=== PATIENT | male | born 1940 | race Caucasian/White ===

== ENCOUNTER 2016-04-22 11:54 | Inpatient (IN) | payer OTHER ==
[2016-04-22 12:04] VITALS: BMI 25.2
[2016-04-22] MEDS ORDERED: methylPREDNISolone NA SUCC 125 MG/2 ML VIAL ONE (12:05)
[2016-04-22] MEDS ORDERED: SODIUM CHLORIDE 0.9% 1000 ML INFUS.BAG IV PRN (12:17)
[2016-04-22] MEDS ORDERED: MAGNESIUM SULF 50% (8.12 MEQ/2 ML-1 GM VIAL) IVPB ONE (12:19)
[2016-04-22] MEDS ORDERED: ALBUTEROL SO4 0.083% IH SOL 2.5 MG/3 ML VIAL.NEB. NEB ONE ×2 (12:19→12:36)
[2016-04-22] MEDS ORDERED: AZITHROMYCIN IVPB 500 MG in DEXTROSE 5%-WATER - 250 ML IVPB ONE (12:20)
[2016-04-22 12:36] LABS: VENOUS PH 7.37 (7.31-7.41)
[2016-04-22] MEDS ORDERED: MAGNESIUM SULF 50% (8.12 MEQ/2 ML-1 GM VIAL) ONE (12:36)
[2016-04-22 12:37] LABS: VENOUS BLOOD GAS HCO3 28.4 meq/L (22-29)
[2016-04-22] MEDS ORDERED: AZITHROMYCIN IVPB 250 ML IVPB ONE (12:37)
[2016-04-22 12:40] LABS: BASOPHIL 0.6 % (0-2.0); MCH 29.2 pg (25.7-33.7); MEAN CELL VOLUME 88.4 fl (80-96); MEAN PLT VOLUME 9.3 fl (7.5-11.1); NEUTROPHILS 74.9 % (42.8-82.8); PLATELET COUNT 168 K/MM3 (134-434); RDW 16.2 % (11.9-15.9); WHITE BLOOD COUNT 7.6 K/mm3 (4.0-10.0)
[2016-04-22 12:53] LABS: INR 1.24 (0.82-1.09); PROTHROMBIN TIME (PATIENT) 13.7 SEC (9.98-11.88)
[2016-04-22 12:56] LABS: ACTIVATED PTT 38.9 SECONDS (26.9-34.4)
[2016-04-22 13:07] LABS: ALBUMIN 3.8 g/dl (3.4-5.0); ANION GAP 9 (8-16); BILIRUBIN,TOTAL 0.5 mg/dL (0.2-1.0); CALCIUM 8.9 mg/dL (8.5-10.1); CO2 28 mmol/L (21-32); CREATININE 1.3 mg/dL (0.7-1.3); GLUCOSE,RANDOM 77 mg/dL (74-106); SGOT/AST 21 U/L (15-37); SGPT/ALT 16 U/L (12-78); TOT PROT 7.5 g/dl (6.4-8.2)
--- NOTE | 2016-04-22 13:08 | PDOC ---
History of Present Illness - General History Source: Patient, Family, Old Records Exam Limitations: No Limitations <Jamarcus Shultz - Last Filed: 04/22/16 13:53> - History of Present Illness Initial Comments: 04/22/16 13:20 The patient is a 75 year old male with significant history of hypertension, hyperlipidemia, atrial fibrillation, CAD s/p CABG s/p stents, CVA with residual L sided weakness, pacemaker, COPD, brought in by EMS for shortness of breath. The patient reports has been sick with fever, cough, and chest congestion for the past few days. Today he became increasingly short of breath and activated EMS. The patient denies true chest pain. He denies nausea, vomiting, or diaphoresis. PCP: Dr. Goran Phan Edge Runner: Dr. Hines Traffic Controller Cable: Dr. Fleming <Anna Marie Duarte - Last Filed: 04/22/16 16:02> - General Chief Complaint: Shortness of Breath Stated Complaint: SOB Time Seen by Provider: 04/22/16 12:07 Past History - Past Medical History Anemia: No Asthma: No Cancer: No Cardiac Disorders: Yes (A-fib, CABG, PM. STENTS.) CVA: Yes (01/23/12..SPEECH DEFECITS.) COPD: Yes CHF: No Dementia: No Diabetes: No GI Disorders: No Disorders: No HTN: Yes Hypercholesterolemia: Yes Liver Disease: No Seizures: No Thyroid Disease: No Other medical history: LT SIDE WEAKNESS D/T NERVE DAMAGE. - Surgical History Abdominal Surgery: Yes (S/P AAA) Appendectomy: No Cardiac Surgery: Yes (Bypass 2013, PM.) Cholecystectomy: No Lung Surgery: No Neurologic Surgery: No Orthopedic Surgery: Yes (FRACTURE RT FEMER S/P ORIF) - Immunization History Immunization Up to Date: Yes - Psycho/Social/Smoking Cessation Hx Anxiety: No Suicidal Ideation: No Smoking History: Former smoker Have you smoked in the past 12 months: No If you are a former smoker, when did you quit?: 2006 Cigars Per Day: 0 Information on smoking cessation initiated: No Hx Alcohol Use: No Drug/Substance Use Hx: No Substance Use Type: None Hx Substance Use Treatment: No <Jamarcus Shultz - Last Filed: 04/22/16 13:53> <Anna Marie Duarte - Last Filed: 04/22/16 16:02> - Past Medical History Allergies/Adverse Reactions: Allergies Allergy/AdvReac Type Severity Reaction Status Date / Time prednisone Allergy Intermediate "too wired" Verified 04/22/16 12:12 Home Medications: Ambulatory Orders Amlodipine Besylate [Norvasc -] 5 mg PO DAILY 04/22/16 Budesonide/Formeterol Fumarate [SYMBICORT 160/4.5mcg -] 2 inh PO BID 04/22/16 Duloxetine HCl 30 mg PO DAILY 04/22/16 Ferrous Sulfate 325 mg PO DAILY 04/22/16 Furosemide [Lasix] 20 mg PO DAILY 04/22/16 Lisinopril 10 mg PO DAILY 04/22/16 Metoprolol Succinate [Toprol Xl] 50 mg PO DAILY 04/22/16 Pregabalin [Lyrica] 100 mg PO BID 04/22/16 Rivaroxaban [Xarelto -] 20 mg PO DAILY 04/22/16 Tamsulosin HCl [Flomax] 0.4 mg PO DAILY 04/22/16 Zolpidem Tartrate 10 mg PO HS 04/22/16 Review of Systems - Review of Systems Able to Perform ROS?: Yes Comments:: 04/22/16 13:25 GENERAL/CONSTITUTIONAL: +Fever. HEAD, EYES, EARS, NOSE AND THROAT: No change in vision. No ear pain or discharge. No sore throat. CARDIOVASCULAR: No chest pain or lightheadedness. RESPIRATORY: Cough, shortness of breath, wheezing. No hemoptysis. GASTROINTESTINAL: No nausea, vomiting, diarrhea or constipation. GENITOURINARY: No dysuria, frequency, or change in urination. MUSCULOSKELETAL: No joint or muscle swelling or pain. No neck or back pain. SKIN: Rash to back 2 weeks ago. NEUROLOGIC: No headache, vertigo, loss of consciousness, or change in strength/ sensation. ENDOCRINE: No increased thirst. No abnormal weight change. HEMATOLOGIC/LYMPHATIC: No anemia, easy bleeding, or history of blood clots. ALLERGIC/IMMUNOLOGIC: No hives or skin allergy. <Anna Marie Duarte - Last Filed: 04/22/16 16:02> *Physical Exam - Vital Signs Last Vital Signs Temp Pulse Resp BP Pulse Ox 100.9 F H 101 H 24 116/95 94 L 04/22/16 11:59 04/22/16 11:59 04/22/16 11:59 04/22/16 11:59 04/22/16 11:59 <Jamarcus Shultz - Last Filed: 04/22/16 13:53> - Vital Signs Last Vital Signs Temp Pulse Resp BP Pulse Ox 100.9 F H 98 H 22 94/82 98 04/22/16 12:13 04/22/16 12:52 04/22/16 12:52 04/22/16 12:52 04/22/16 12:52 - Physical Exam Comments: 04/22/16 13:26 GENERAL: Awake, alert, and fully oriented, in no acute distress HEAD: No signs of trauma EYES: PERRLA, EOMI, sclera anicteric, conjunctiva clear ENT: Auricles normal inspection, hearing grossly normal, nares patent, oropharynx clear without exudates. Moist mucosa NECK: Normal ROM, supple, no lymphadenopathy, JVD, or masses LUNGS: Breath sounds equal, tight breath sounds throughout. HEART: Regular rate and rhythm, normal S1 and S2, no murmurs, rubs or gallops. Pacemaker in place. ABDOMEN: Soft, nontender, normoactive bowel sounds. No guarding, no rebound. No masses EXTREMITIES: Normal range of motion, no edema. No clubbing or cyanosis. No cords, erythema, or tenderness NEUROLOGICAL: Cranial nerves II through XII grossly intact. Slurred speech at baseline. Gait deferred. SKIN: Warm, Dry, normal turgor, no rashes or lesions noted. <Anna Marie Duarte - Last Filed: 04/22/16 16:02> Heart Score/ECG Review - History History: Moderately suspicious - Electrocardiogram EKG: Non specific repolarization disturbance - Age Age: >/= 65 - Risk Factors Based on the list above the patient has:: >/=3 risk factors or Hx atherosclerotic disease - Troponin Troponin: </= normal limit - Score Heart Score - Total: 6 #1 ECG reviewed & interpreted by me at: 12:00 04/22/16 13:08 Paced 96, with occasional PVCs, QTC 452 msec <Jamarcus Shultz - Last Filed: 04/22/16 13:53> ED Treatment Course - LABORATORY CBC & Chemistry Diagram: 04/22/16 12:26 04/22/16 12:26 - ADDITIONAL ORDERS Additional order review: Laboratory Results 04/22/16 04/22/16 12:35 12:26 INR 1.24 H PTT (Actin FS) 38.9 H VBG pH 7.37 POC VBG pCO2 50.9 POC VBG pO2 30.4 04/22/16 12:26 RBC 5.46 MCV 88.4 MCHC 33.0 RDW 16.2 H MPV 9.3 D Neutrophils % 74.9 Lymphocytes % 11.0 Monocytes % 8.5 Eosinophils % 5.0 H D Basophils % 0.6 - RADIOLOGY Radiology Studies Ordered: Category Date Time Status CHEST X-RAY PORTABLE* [RAD] Stat Radiology 04/22/16 12:17 Taken <Jamarcus Shultz - Last Filed: 04/22/16 13:53> - LABORATORY CBC & Chemistry Diagram: 04/22/16 12:26 04/22/16 12:26 - ADDITIONAL ORDERS Additional order review: Laboratory Results 04/22/16 04/22/16 04/22/16 12:35 12:26 12:26 INR PTT (Actin FS) VBG pH 7.37 POC VBG pCO2 50.9 POC VBG pO2 30.4 Sodium 140 Potassium 4.9 Chloride 103 Carbon Dioxide 28 Anion Gap 9 BUN 24 H D Creatinine 1.3 D Creat Clearance w eGFR 53.53 Random Glucose 77 D Calcium 8.9 Magnesium 2.3 Total Bilirubin 0.5 AST 21 D ALT 16 D Alkaline Phosphatase 60 Creatine Kinase 132 Troponin I < 0.02 Total Protein 7.5 Albumin 3.8 04/22/16 12:26 INR 1.24 H PTT (Actin FS) 38.9 H VBG pH POC VBG pCO2 POC VBG pO2 Sodium Potassium Chloride Carbon Dioxide Anion Gap BUN Creatinine Creat Clearance w eGFR Random Glucose Calcium Magnesium Total Bilirubin AST ALT Alkaline Phosphatase Creatine Kinase Troponin I Total Protein Albumin 04/22/16 12:26 RBC 5.46 MCV 88.4 MCHC 33.0 RDW 16.2 H MPV 9.3 D Neutrophils % 74.9 Lymphocytes % 11.0 Monocytes % 8.5 Eosinophils % 5.0 H D Basophils % 0.6 - Medications Given in the ED: ED Medications Discontinued Medications Generic Name Dose Route Start Last Admin Trade Name Freq PRN Reason Stop Dose Admin Albuterol Sulfate 1 amp 04/22/16 12:19 04/22/16 12:40 Ventolin 0.083% Nebulizer Soln - NEB 04/22/16 12:20 1 amp ONCE ONE Administration Magnesium Sulfate 2 gm 04/22/16 12:19 04/22/16 12:40 Magnesium Sulfate IVPB 04/22/16 12:20 2 gm ONCE ONE Administration <BetzaidaAnna Marie de la cruz - Last Filed: 04/22/16 16:02> Medical Decision Making - Medical Decision Making 04/22/16 13:07 A portion of this note was documented by scribe services under my direction. I have reviewed the details of the note, within reason, and agree with the documentation with the following case summary and management plan written by me. Patient treated in the ED. Nursing notes are reviewed and incorporated into the medical decision-making. Vital signs reviewed. Peripheral IV access obtained by the nurse, laboratory studies are drawn and sent, reviewed and interpreted by myself. Vital Signs Temp Pulse Resp BP Pulse Ox 100.9 F H 101 H 24 116/95 94 L 04/22/16 11:59 04/22/16 11:59 04/22/16 11:59 04/22/16 11:59 04/22/16 11:59 75 year old male with past medical history of atrial fibrillation, CABG, CVA, COPD, AAA, cardiac bypass, pacemaker presents to the emergency department for shortness of breath. Reports several days of intermittent upper respiratory infection-like symptoms and chest congestion. Today, noted increasing dyspnea and wheezing and coughing. EMS was activated and brought the patient to the ED for evaluation. In EMS, nebulizers and 12 mg solu-medrol were given. Here in the emergency department, patient is noted to have a low-grade temperature 100.9 degrees concerning for upper respiratory infection. We'll need to rule out pneumonia. Patient reports side effects of prednisone as feeling jittery and insomniac. We'll treat as a COPD exacerbation but we will rule out other causes such as acute coronary syndrome, congestive heart failure. We'll initiate empiric antibiotics and admit the patient to the hospital for further evaluation. 04/22/16 13:54 Pt follows up with Dr. Hines and Dr. Fleming Chest xray reviewed. No acute findings. CBC, BMP 04/22/16 12:26 04/22/16 12:26 CMP Sodium 140 mmol/L (136-145) 04/22/16 12:26 Potassium 4.9 mmol/L (3.5-5.1) 04/22/16 12:26 Chloride 103 mmol/L (98-107) 04/22/16 12:26 Carbon Dioxide 28 mmol/L (21-32) 04/22/16 12:26 Anion Gap 9 (8-16) 04/22/16 12:26 BUN 24 mg/dL (7-18) H D 04/22/16 12:26 Creatinine 1.3 mg/dL (0.7-1.3) D 04/22/16 12:26 Creat Clearance w eGFR 53.53 (>60) 04/22/16 12:26 Random Glucose 77 mg/dL (74-106) D 04/22/16 12:26 Lactic Acid 0.935 mmol/L (0.4-2.0) 04/22/16 12:26 Calcium 8.9 mg/dL (8.5-10.1) 04/22/16 12:26 Magnesium 2.3 mg/dL (1.8-2.4) 04/22/16 12:26 Total Bilirubin 0.5 mg/dL (0.2-1.0) 04/22/16 12:26 AST 21 U/L (15-37) D 04/22/16 12:26 ALT 16 U/L (12-78) D 04/22/16 12:26 Alkaline Phosphatase 60 U/L (45-117) 04/22/16 12:26 Creatine Kinase 132 IU/L (39-308) 04/22/16 12:26 Troponin I < 0.02 ng/ml (0.00-0.05) 04/22/16 12:26 Total Protein 7.5 g/dl (6.4-8.2) 04/22/16 12:26 Albumin 3.8 g/dl (3.4-5.0) 04/22/16 12:26 Urine Test Results Urine Color Straw 04/22/16 12:13 Urine Appearance Clear 04/22/16 12:13 Urine pH 5.0 (5.0-8.0) 04/22/16 12:13 Ur Specific [place] 1.009 (1.001-1.035) 04/22/16 12:13 Urine Protein Negative (NEGATIVE) 04/22/16 12:13 Urine Glucose (UA) Negative (NEGATIVE) 04/22/16 12:13 Urine Ketones Negative (NEGATIVE) 04/22/16 12:13 Urine Blood 2+ (NEGATIVE) H 04/22/16 12:13 Urine Nitrite Negative (NEGATIVE) 04/22/16 12:13 Urine Bilirubin Negative (NEGATIVE) 04/22/16 12:13 Ur Leukocyte Esterase Negative (NEGATIVE) 04/22/16 12:13 Urine RBC 4 /hpf (0-3) 04/22/16 12:13 Urine WBC <1 /hpf (3-5) 04/22/16 12:13 Ur Epithelial Cells Rare /hpf (FEW) 04/22/16 12:13 Urine Mucus Rare 04/22/16 12:13 Labs reviewed. Negative trop. Pt given azithromycin and IV tylenol. Pt reports feeling much better. Case discussed with Dr. Lamas, who accepts the patient to med/surg admission for COPD. Case discussed in detail with admitting physician including history, physical exam and ancillary studies. Admitting physician has assumed care for the patient, will follow all pending diagnostics and will complete the evaluation and treatment. <Jamarcus Shultz - Last Filed: 04/22/16 13:53> - Medical Decision Making 04/22/16 13:[address] Elizabeth Ramírez, who admits for patient's PCP, at . Awaiting call back from covering physician, Dr. Lamas. 04/22/16 14:[address] Lamas who agreed to admission. 04/22/16 15:02 Chest x-ray, read and interpreted by Dr. Milian, shows pacemaker, no acute pathology. <Anna Marie Duarte - Last Filed: 04/22/16 16:02> *DC/Admit/Observation/Transfer - Discharge Dispostion Admit: Yes <Jamarcus Shultz - Last Filed: 04/22/16 13:53> - Attestations Scribe Attestion: 04/22/16 13:26 Documentation prepared by Anna Marie Duarte, acting as medical leader for Jamarcus Shultz MD. <Anna Marie Duarte - Last Filed: 04/22/16 16:02> Diagnosis at time of Disposition: COPD exacerbation - Referrals
[2016-04-22] MEDS ORDERED: ACETAMINOPHEN 1000 MG/100 ML VIAL (NON FORMULARY) IVPB ONE (13:09)
[2016-04-22 13:10] LABS: ALK PHOS 60 U/L (45-117); TROPONIN I < 0.02 ng/ml (0.00-0.05)
[2016-04-22 13:20] LABS: URINE APPEARANCE CLEAR; URINE BILIRUBIN NEGATIVE (NEGATIVE); URINE COLOR STRAW; URINE GLUCOSE (UA) NEGATIVE (NEGATIVE); URINE KETONE NEGATIVE (NEGATIVE); URINE LEUK ESTERASE NEGATIVE (NEGATIVE); URINE NITRITE NEGATIVE (NEGATIVE); URINE PROTEIN NEGATIVE (NEGATIVE); URINE UROBILINOGEN NEGATIVE E.U./dl (0.2-1.0)
[2016-04-22 13:21] LABS: URINE BLOOD 2+ (NEGATIVE)
[2016-04-22 13:23] LABS: URINE MUCUS RARE; URINE RBC 4 /hpf (0-3); URINE WBC <1 /hpf (3-5)
[2016-04-22] MEDS ORDERED: ACETAMINOPHEN INJECTION 100 ML IVPB ONE (13:38)
[2016-04-22] MEDS ORDERED: DULoxetine HCL 30 MG CAPSULE.DR (FP) PO ONE (14:16)
[2016-04-22] MEDS: CEFTRIAXONE 50 ML IVPB SCH (14:24)
[2016-04-22] MEDS ORDERED: ACETAMINOPHEN 325 MG TABLET (FP) PO PRN (15:43)
[2016-04-22] MEDS ORDERED: ZOLPIDEM TARTRATE 5 MG TABLET PO PRN (15:53)
[2016-04-22] MEDS ORDERED: PREGABALIN 100 MG CAPSULE PO ONE (17:30)
[2016-04-22] MEDS ORDERED: PATIENT'S OWN MEDICATION (NON-FORMULARY) (Zolpidem Tartrate [Zolpidem Tartrate] 10 MG) PO SCH ×2 (22:00)
[2016-04-22] MEDS: PREGABALIN 50 MG CAPSULE PO SCH (22:33)
[2016-04-22] MEDS: BUDESONIDE/FORMETEROL FUMARATE 160/4.5 mcg INHALER IH SCH (22:33)
[2016-04-22] MEDS: ALBUTEROL SO4 0.083% IH SOL 2.5 MG/3 ML VIAL.NEB. NEB SCH (23:16)
[2016-04-23] MEDS: ALBUTEROL SO4 0.083% IH SOL 2.5 MG/3 ML VIAL.NEB. NEB SCH ×4 (06:16→18:17)
[2016-04-23 07:59] LABS: BASOPHIL 0.2 % (0-2.0); MCH 29.5 pg (25.7-33.7); MCHC 33.3 g/dl (32.0-35.9); MEAN CELL VOLUME 88.5 fl (80-96); MEAN PLT VOLUME 9.1 fl (7.5-11.1); NEUTROPHILS 87.1 % (42.8-82.8); PLATELET COUNT 165 K/MM3 (134-434); RDW 16.3 % (11.9-15.9); WHITE BLOOD COUNT 9.5 K/mm3 (4.0-10.0)
[2016-04-23 08:29] LABS: ALBUMIN 3.2 g/dl (3.4-5.0); BILIRUBIN,TOTAL 0.4 mg/dL (0.2-1.0); CALCIUM 9.1 mg/dL (8.5-10.1); CREATININE 1.2 mg/dL (0.7-1.3)
[2016-04-23] MEDS: TAMSULOSIN HCL 0.4 MG CAP.ER.24H (FP) PO SCH (09:52)
[2016-04-23] MEDS: METOPROLOL SUCCINATE 50 MG TAB.SR.24H (FP) PO SCH (09:52)
[2016-04-23] MEDS: LISINOPRIL 10 MG TABLET (FP) PO SCH (09:52)
[2016-04-23] MEDS: FUROSEMIDE 20 MG TABLET (FP) PO SCH (09:53)
[2016-04-23] MEDS: amLODIPine BESYLATE 5 MG TABLET (FP) PO SCH (09:53)
[2016-04-23] MEDS: BUDESONIDE/FORMETEROL FUMARATE 160/4.5 mcg INHALER IH SCH ×2 (09:54→21:58)
[2016-04-23] MEDS: FERROUS SO4 325 MG TABLET (FP) PO SCH (09:54)
[2016-04-23] MEDS: RIVAROXABAN 20 MG TABLET PO SCH ×2 (09:54→17:37)
[2016-04-23] MEDS: CEFTRIAXONE 50 ML IVPB SCH (09:54)
[2016-04-23] MEDS ORDERED: PATIENT'S OWN MEDICATION (NON-FORMULARY) (Ferrous Sulfate [Ferrous Sulfate] 325 MG) PO SCH (10:00)
[2016-04-23] MEDS: PREGABALIN 50 MG CAPSULE PO SCH ×2 (10:01→21:57)
[2016-04-23] MEDS: DULoxetine HCL 30 MG CAPSULE.DR (FP) PO SCH (10:02)
--- NOTE | 2016-04-23 10:04 | CON.PULM ---
Consult Consult Specialty:: PULM/CCM Referred by:: SHARON Reason for Consultation:: SOB / COPD - History of Present Illness Chief Complaint: SOB History of Present Illness: 75 M, previous smoker having quit in 2006. Listed extensive medical history. Admitted via the ER due to progressive congested cough and SOB. No travel history or sick contacts. (+) subjective fever at home but no chills. No night sweats or hemoptysis. CXR: No acute pathology - History Source History Provided By: Patient Limitations to Obtaining History: No Limitations - Past Medical History DRAPERY HEAD FORMER: Yes: CVA, Seizure Cardio/Vascular: Yes: AFIB, Aneurysm, CAD, CHF, HTN, Hyperlipdemia, Murmur, Other (peripheral artery disease) Pulmonary: Yes: COPD Renal/: Yes: BPH - Past Surgical History Past Surgical History: Yes: AAA Repair, Bypass (lower ext), Permanent Pacemaker , Stent (cardiac x 2) - Alcohol/Substance Use Hx Alcohol Use: No History of Substance Use: reports: None - Smoking History Smoking history: Former smoker Have you smoked in the past 12 months: No If you are a former smoker, when did you quit?: 2006 - Social History Usual Living Arrangement: With Spouse ADL: Family Assistance History of Recent Travel: No Home Medications - Allergies Allergies/Adverse Reactions: Allergies Allergy/AdvReac Type Severity Reaction Status Date / Time prednisone Allergy Intermediate "too wired" Verified 04/22/16 12:12 - Home Medications Home Medications: Ambulatory Orders Amlodipine Besylate [Norvasc -] 5 mg PO DAILY 04/22/16 Budesonide/Formeterol Fumarate [SYMBICORT 160/4.5mcg -] 2 inh PO BID 04/22/16 Duloxetine HCl 30 mg PO DAILY 04/22/16 Ferrous Sulfate 325 mg PO DAILY 04/22/16 Furosemide [Lasix] 20 mg PO DAILY 04/22/16 Lisinopril 10 mg PO DAILY 04/22/16 Metoprolol Succinate [Toprol Xl] 50 mg PO DAILY 04/22/16 Pregabalin [Lyrica] 100 mg PO BID 04/22/16 Rivaroxaban [Xarelto -] 20 mg PO DAILY 04/22/16 Tamsulosin HCl [Flomax] 0.4 mg PO DAILY 04/22/16 Zolpidem Tartrate 10 mg PO HS 01/29/17 Review of Systems - Review of Systems Constitutional: reports: Fever, Malaise, Weakness. denies: Chills, Night Sweats , Unintentional Wgt. Loss Eyes: reports: No Symptoms HENT: reports: Nasal Congestion, Throat Pain. denies: Epistaxis, Toothache, Ringing in Ears Neck: reports: No Symptoms Cardiovascular: reports: Shortness of Breath. denies: Chest Pain, Edema, Palpitations Respiratory: reports: Cough, Snoring, SOB, SOB on Exertion, Wheezing. denies: Hemoptysis Gastrointestinal: reports: No Symptoms Genitourinary: reports: No Symptoms Breasts: reports: No Symptoms Reported Musculoskeletal: reports: No Symptoms Integumentary: reports: No Symptoms Neurological: reports: Pre-Existing Deficit Endocrine: reports: No Symptoms Hematology/Lymphatic: reports: No Symptoms Psychiatric: reports: No Symptoms Physical Exam Vital Sings: Vital Signs Temperature 98.0 F 04/23/16 06:00 Pulse Rate 74 04/23/16 06:00 Respiratory Rate 20 04/23/16 08:59 Blood Pressure 133/72 04/23/16 06:00 O2 Sat by Pulse Oximetry (%) 96 04/23/16 08:59 Constitutional: Yes: No Distress, Calm Eyes: Yes: Conjunctiva Clear, EOM Intact HENT: Yes: Atraumatic, Normocephalic Neck: Yes: Supple, Trachea Midline Cardiovascular: Yes: Pulse Irregular Respiratory: Yes: Cough, On Nasal O2, Rhonchi, SOB, Tachypnea, Wheezes. No: Accessory Muscle Use, Stridor ...Inspection: Yes: WNL ...Clubbing: No Gastrointestinal: Yes: Normal Bowel Sounds, Soft Renal/: Yes: WNL Musculoskeletal: Yes: WNL Extremities: Yes: WNL Edema: No Peripheral Pulses WNL: Yes Integumentary: Yes: WNL Neurological: Yes: Alert, Oriented, Pre-Existing Deficit Psychiatric: Yes: Alert, Oriented Labs: CBC, BMP 04/23/16 07:00 04/23/16 07:00 Imaging - Results Chest X-ray: Report Reviewed, Image Reviewed (No aucte pathology) Problem List - Problems (1) Afib Code(s): I48.91 - UNSPECIFIED ATRIAL FIBRILLATION (2) Aortic aneurysm Code(s): I71.9 - AORTIC ANEURYSM OF UNSPECIFIED SITE, WITHOUT RUPTURE (3) CAD (coronary artery disease) Code(s): I25.10 - ATHSCL HEART DISEASE OF [place] CORONARY ARTERY W/O ANG PCTRS (4) COPD exacerbation Code(s): J44.1 - CHRONIC OBSTRUCTIVE PULMONARY DISEASE W (ACUTE) EXACERBATION (5) Hyperlipidemia Code(s): E78.5 - HYPERLIPIDEMIA, UNSPECIFIED (6) Hypertension Code(s): I10 - ESSENTIAL (PRIMARY) HYPERTENSION (7) Status post fall Code(s): Z91.89 - OTH PERSONAL RISK FACTORS, NOT ELSEWHERE CLASSIFIED (8) Acute exacerbation of chronic bronchitis Code(s): J20.9 - ACUTE BRONCHITIS, UNSPECIFIED J42 - UNSPECIFIED CHRONIC BRONCHITIS (9) BPH (benign prostatic hypertrophy) Code(s): N40.0 - BENIGN PROSTATIC HYPERPLASIA WITHOUT LOWER URINRY TRACT SYMP (10) Congestive heart failure (CHF) Code(s): I50.9 - HEART FAILURE, UNSPECIFIED (11) Focal motor deficit Code(s): R29.898 - OTH SYMPTOMS AND SIGNS INVOLVING THE MUSCULOSKELETAL SYSTEM (12) History of endovascular stent graft for abdominal aortic aneurysm Code(s): Z95.828 - PRESENCE OF OTHER VASCULAR IMPLANTS AND GRAFTS (13) History of permanent cardiac pacemaker placement Code(s): Z95.0 - PRESENCE OF CARDIAC PACEMAKER (14) Paroxysmal atrial fibrillation Code(s): I48.0 - PAROXYSMAL ATRIAL FIBRILLATION (15) Presence of cardiac pacemaker Code(s): Z95.0 - PRESENCE OF CARDIAC PACEMAKER (16) Shortness of breath Code(s): R06.02 - SHORTNESS OF BREATH (17) Stented coronary artery Code(s): Z95.5 - PRESENCE OF CORONARY ANGIOPLASTY IMPLANT AND GRAFT (18) Thoracic aortic aneurysm Code(s): I71.2 - THORACIC AORTIC ANEURYSM, WITHOUT RUPTURE Assessment/Plan PLAN: Medrol BD TX O2 as needed ABX for now Check sputum Check urine No smoking Outpatient PFTs. Will follow Thank you. Dr Alberto
--- NOTE | 2016-04-23 10:16 | EKG ---
Test Reason : Blood Pressure : / mmHG Vent. Rate : 064 BPM Atrial Rate : 064 BPM P-R Int : 138 ms QRS Dur : 126 ms QT Int : 430 ms P-R-T Axes : 072 -88 093 degrees QTc Int : 443 ms Atrial-sensed ventricular-paced rhythm Biventricular pacemaker detected ABNORMAL ECG WHEN COMPARED WITH ECG OF 22-APR-2016 12:00, FUSION COMPLEXES ARE NO LONGER PRESENT PREMATURE VENTRICULAR COMPLEXES ARE NO LONGER PRESENT VENT. RATE HAS DECREASED BY 32 BPM Confirmed by LUIS LALA MD ([id number]) on 04/23/2016 10:16:22 AM Referred By: JEMIMA BOURNE Confirmed By:LUIS LALA MD
--- NOTE | 2016-04-23 10:34 | HP ---
Admitting History and Physical - Primary Care Physician PCP: Goran Phan - Admission Chief Complaint: worsening breathing History of Present Illness: The patient is a 75 year old male with significant history of hypertension, hyperlipidemia, atrial fibrillation, CAD s/p CABG s/p stents, CVA with residual L sided weakness, pacemaker, COPD, brought in by EMS for shortness of breath. The patient reports has been sick with fever, cough, and chest congestion for the past few days. Today he became increasingly short of breath and activated EMS. The patient denies true chest pain. He denies nausea, vomiting, or diaphoresis. PCP: Dr. Goran Phan Retail Aide: Dr. 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: CVA, Seizure Cardiovascular: Yes: AFIB, Aneurysm, CAD, CHF, HTN, Hyperlipdemia, Murmur, Other (peripheral artery disease) Pulmonary: Yes: COPD Renal/: Yes: BPH - Past Surgical History Past Surgical History: Yes: AAA Repair, Bypass (lower ext), Permanent Pacemaker , Stent (cardiac x 2) - Smoking History Smoking history: Former smoker Have you smoked in the past 12 months: No If you are a former smoker, when did you quit?: 2006 - Alcohol/Substance Use Hx Alcohol Use: No History of Substance Use: reports: None - Social History ADL: Family Assistance History of Recent Travel: No Home Medications - Allergies Allergies/Adverse Reactions: Allergies Allergy/AdvReac Type Severity Reaction Status Date / Time prednisone Allergy Intermediate "too wired" Verified 04/22/16 12:12 - Home Medications Home Medications: Ambulatory Orders Amlodipine Besylate [Norvasc -] 5 mg PO DAILY 04/22/16 Budesonide/Formeterol Fumarate [SYMBICORT 160/4.5mcg -] 2 inh PO BID 04/22/16 Duloxetine HCl 30 mg PO DAILY 04/22/16 Ferrous Sulfate 325 mg PO DAILY 04/22/16 Furosemide [Lasix] 20 mg PO DAILY 04/22/16 Lisinopril 10 mg PO DAILY 04/22/16 Metoprolol Succinate [Toprol Xl] 50 mg PO DAILY 04/22/16 Pregabalin [Lyrica] 100 mg PO BID 04/22/16 Rivaroxaban [Xarelto -] 20 mg PO DAILY 04/22/16 Tamsulosin HCl [Flomax] 0.4 mg PO DAILY 04/22/16 Zolpidem Tartrate 10 mg PO HS 04/22/16 Review of Systems - Review of Systems HENT: reports: Nasal Congestion Physical Examination Vital Signs: Vital Signs Temperature 98.0 F 04/23/16 06:00 Pulse Rate 74 04/23/16 06:00 Respiratory Rate 20 04/23/16 08:59 Blood Pressure 133/72 04/23/16 06:00 O2 Sat by Pulse Oximetry (%) 96 04/23/16 08:59 Constitutional: Yes: Calm, Thin Respiratory: Yes: Diminished (distant) Gastrointestinal: Yes: Normal Bowel Sounds, Soft Extremities: Yes: Erythema (on left leg with dry rash), Other (prominent varicose veins) Labs: CBC, BMP 04/23/16 07:00 04/23/16 07:00 Imaging - Results X-ray: Report Reviewed Problem List - Problems (1) Afib Assessment/Plan: xarelto Code(s): I48.91 - UNSPECIFIED ATRIAL FIBRILLATION (2) COPD exacerbation Assessment/Plan: URI with copd eacerbation solumedrol \\oxygen bronchodillators nasonex Code(s): J44.1 - CHRONIC OBSTRUCTIVE PULMONARY DISEASE W (ACUTE) EXACERBATION (3) Cellulitis of left lower leg Assessment/Plan: iv ancef Code(s): L03.116 - CELLULITIS OF LEFT LOWER LIMB (4) Chronic combined systolic and diastolic CHF (congestive heart failure) Assessment/Plan: stable conitue curent meds seen by cardiology Code(s): I50.42 - CHRONIC COMBINED SYSTOLIC AND DIASTOLIC HRT FAIL (5) BPH (benign prostatic hypertrophy) Assessment/Plan: flomax Code(s): N40.0 - BENIGN PROSTATIC HYPERPLASIA WITHOUT LOWER URINRY TRACT SYMP
--- NOTE | 2016-04-23 11:07 | PN ---
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 or 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- now resolved now with erythema of LLE- red/itchy no dysuria, no hematuria, no frequency UTD on vaccines cxray clear no UTI (negative UA, low colony count culture, no symptoms) possible cellulitis left leg copd exacerbation- suspect secondary to viral etiology (influenza negative) switch to ancef for cellulitis screen for rsv copd exacerbation per pulmonary Problem List - Problems (1) Cellulitis of left lower leg Code(s): L03.116 - CELLULITIS OF LEFT LOWER LIMB (2) COPD exacerbation Code(s): J44.1 - CHRONIC OBSTRUCTIVE PULMONARY DISEASE W (ACUTE) EXACERBATION (3) Viral syndrome Code(s): B34.9 - VIRAL INFECTION, UNSPECIFIED
[2016-04-23] MEDS: methylPREDNISolone NA SUCC 40 MG/1 ML VIAL IVPB SCH ×2 (12:25→17:37)
--- NOTE | 2016-04-23 12:45 | CON.CARD ---
Consult Consult Specialty:: Cardiology Referred by:: Dr. Lamas Reason for Consultation:: SOB, cough - History of Present Illness Chief Complaint: SOB, cough History of Present Illness: 75 year old man with a history of HTN, HLD, Afib, CAD s/p CABG s/p stents, PPM, ICM refused ICD in the past, PAD, Thoracic aortic aneursym, CVA with residual L sided weakness, COPD admitted with worsening sob, fever, cough for the past several days. Pt. seen and examined today in nad. states he is feeling better. his is at bedside and states that he has improved since admission but still sob and coughing. denies any chest pain, palpitations. no pnd, orthopnea, or LE edema. no lightheadedness, dizziness, syncope, or near syncope. 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, Seizure Cardio/Vascular: Yes: AFIB, Aneurysm, CAD, CHF, HTN, Hyperlipdemia, Murmur, Other (peripheral artery disease) Pulmonary: Yes: COPD Renal/: Yes: BPH - Past Surgical History Past Surgical History: Yes: AAA Repair, Bypass (lower ext), Permanent Pacemaker , Stent (cardiac x 2) - Alcohol/Substance Use Hx Alcohol Use: No History of Substance Use: reports: None - Smoking History Smoking history: Former smoker Have you smoked in the past 12 months: No If you are a former smoker, when did you quit?: 2006 - Social History Usual Living Arrangement: With Spouse ADL: Family Assistance History of Recent Travel: No Home Medications - Allergies Allergies/Adverse Reactions: Allergies Allergy/AdvReac Type Severity Reaction Status Date / Time prednisone Allergy Intermediate "too wired" Verified 04/22/16 12:12 - Home Medications Home Medications: Ambulatory Orders Amlodipine Besylate [Norvasc -] 5 mg PO DAILY 04/22/16 Budesonide/Formeterol Fumarate [SYMBICORT 160/4.5mcg -] 2 inh PO BID 04/22/16 Duloxetine HCl 30 mg PO DAILY 04/22/16 Ferrous Sulfate 325 mg PO DAILY 04/22/16 Furosemide [Lasix] 20 mg PO DAILY 04/22/16 Lisinopril 10 mg PO DAILY 04/22/16 Metoprolol Succinate [Toprol Xl] 50 mg PO DAILY 04/22/16 Pregabalin [Lyrica] 100 mg PO BID 04/22/16 Rivaroxaban [Xarelto -] 20 mg PO DAILY 04/22/16 Tamsulosin HCl [Flomax] 0.4 mg PO DAILY 04/22/16 Zolpidem Tartrate 10 mg PO HS 04/22/16 Family Disease History - Family Disease History Family History: Denies Review of Systems - Review of Systems Constitutional: reports: Fever, Malaise, Weakness. denies: No Symptoms, Chills , Diaphoresis, Lethargy, Loss of Appetite, Night Sweats, Unintentional Wgt. Loss , Other Eyes: denies: No Symptoms, Blind Spots, Blurred Vision, Double Vision, Eye Pain , Floaters, Photophobia, Recent Change in Vision, Other HENT: denies: No Symptoms, Difficult Swallowing, Ear Discharge, Ear Pain, Epistaxis, Gingival Bleeding, Hearing Loss, Mouth Swelling, Nasal Congestion, Ocular Prosthesis, Throat Pain, Toothache, Ringing in Ears, Other Neck: denies: No Symptoms, Decreased ROM, Lumps, Pain on Movement, Stiffness, Swollen Glands, Tenderness, Other Cardiovascular: reports: Shortness of Breath. denies: No Symptoms, Chest Pain, Edema, Palpitations, Other Respiratory: reports: Cough, Exercise Intolerance, SOB, SOB on Exertion. denies : No Symptoms, Hemoptysis, Orthopnea, PND, Snoring, Wheezing, Other Gastrointestinal: denies: No Symptoms, Abdominal Pain, Bloating, Constipation, Diarrhea, Dysphagia, Indigestion, Melena, Nausea, Rectal Bleeding, Vomiting, Vomiting Blood, Other Genitourinary: denies: No Symptoms, Burning, Discharge, Dysuria, Flank Pain, Frequency, Hematuria, Incontinence, Lesions, Menses, Pain, Testicular Mass, Testicular Pain, Testicular Swelling, Urgency, Vaginal Bleeding, Other Breasts: denies: No Symptoms Reported, See HPI, Breast Implants, Discharge from Nipple, Lumps, Pain, Skin Changes, Other Musculoskeletal: denies: No Symptoms, Back Pain, Crepitus, Decreased ROM, Extremity Pain, Joint Pain, Joint Swelling, Muscle Pain, Muscle Cramps, Muscle Weakness, Other Integumentary: reports: Rash. denies: No Symptoms, Blister, Bruising, Change in Color, Eczema, Erythema, Incision, Lesions, Lump, Pallor, Pruritis, Wound, Other Neurological: denies: No Symptoms, Change in LOC, Change in Speech, Confusion, Dizziness, Headache, Incoordination, Numbness, Parasthesia, Pre-Existing Deficit , Seizure, Syncope, Tremors, Unsteady Gait, Weakness, Other Endocrine: denies: No Symptoms, Excessive Sweating, Flushing, Increased Hunger, Increased Thirst, Intolerance to Cold, Intolerance to Heat, Unexplained Weight Gain, Unexplained Weight Loss, Other Hematology/Lymphatic: denies: No Symptoms, Easily Bruised, Excessive Bleeding, Swollen Glands, Other Psychiatric: denies: No Symptoms, Altered Sleep Pattern, Anxiety, Depression, Hallucinations, Panic, Paranoia, Suicidal, Other - Risk Factors Known Risk Factors: Yes: Age, Hypercholesterolemia, Hypertension, Prior WI /Emb Stroke Vital Signs: Vital Signs Temperature 98.0 F 04/23/16 06:00 Pulse Rate 74 04/23/16 06:00 Respiratory Rate 20 04/23/16 08:59 Blood Pressure 133/72 04/23/16 06:00 O2 Sat by Pulse Oximetry (%) 96 04/23/16 08:59 Constitutional: Yes: Well Nourished, No Distress, Calm Eyes: Yes: WNL, Conjunctiva Clear, EOM Intact, PERRL HENT: Yes: WNL, Atraumatic, Normocephalic Neck: Yes: WNL, Supple, Trachea Midline Respiratory: Yes: Regular, On Nasal O2, Wheezes. No: Rales, Rhonchi Gastrointestinal: Yes: WNL, Normal Bowel Sounds, Soft. No: Distention, Tenderness Renal/: Yes: WNL Cardiovascular: Yes: Pulse Irregular. No: Bradycardia, Tachycardia, Gallop, Rub , Varicosities JVD: No Carotid Bruit: No PMI: Non-Displaced Heart Sounds: Yes: S1, S2. No: Split S2, S3, S4, Clicks, Gallop, Rub, Bruit Murmur: No: Systolic Murmur, Diastolic Murmur Extremities: Yes: WNL Edema: No Peripheral Pulses WNL: Yes Peripheral Pulses: 2+ Left Doralis Pedis, 2+ Right Dorsalis Pedis Integumentary: Yes: WNL Neurological: Yes: Alert, Oriented, Pre-Existing Deficit Psychiatric: Yes: Alert, Oriented - Other Data Labs, Other Data: CBC, BMP 04/23/16 07:00 04/23/16 07:00 INR, PTT INR 1.24 (0.82-1.09) H 04/22/16 12:26 ekg-Vpaced 64bpm Echo: Report Reviewed Prior Cardiac Procedures: CABG, PTCA with Stent Ejection Fraction %: LVEF > or = 40 % Imaging - Results Chest X-ray: Report Reviewed, Image Reviewed EKG: Report Reviewed, Image Reviewed Other: Report Reviewed, Image Reviewed Problem List - Problems (1) Afib Code(s): I48.91 - UNSPECIFIED ATRIAL FIBRILLATION (2) Aortic aneurysm Code(s): I71.9 - AORTIC ANEURYSM OF UNSPECIFIED SITE, WITHOUT RUPTURE (3) CAD (coronary artery disease) Code(s): I25.10 - ATHSCL HEART DISEASE OF [place] CORONARY ARTERY W/O ANG PCTRS (4) COPD exacerbation Code(s): J44.1 - CHRONIC OBSTRUCTIVE PULMONARY DISEASE W (ACUTE) EXACERBATION (5) Hyperlipidemia Code(s): E78.5 - HYPERLIPIDEMIA, UNSPECIFIED (6) Hypertension Code(s): I10 - ESSENTIAL (PRIMARY) HYPERTENSION (7) History of permanent cardiac pacemaker placement Code(s): Z95.0 - PRESENCE OF CARDIAC PACEMAKER (8) Peripheral artery disease Code(s): I73.9 - PERIPHERAL VASCULAR DISEASE, UNSPECIFIED (9) Presence of cardiac pacemaker Code(s): Z95.0 - PRESENCE OF CARDIAC PACEMAKER (10) Shortness of breath Code(s): R06.02 - SHORTNESS OF BREATH (11) Stented coronary artery Code(s): Z95.5 - PRESENCE OF CORONARY ANGIOPLASTY IMPLANT AND GRAFT (12) Hx of CABG Code(s): Z95.1 - PRESENCE OF AORTOCORONARY BYPASS GRAFT (13) Chronic combined systolic and diastolic CHF (congestive heart failure) Code(s): I50.42 - CHRONIC COMBINED SYSTOLIC AND DIASTOLIC HRT FAIL Assessment/Plan 75 year old man with a history of HTN, HLD, Afib, CAD s/p CABG s/p stents, PPM, ICM refused ICD in the past, PAD, Thoracic aortic aneursym, CVA with residual L sided weakness, COPD admitted with worsening sob, fever, cough for the past several days. SOB/nasal congestion/subjective fevers/cough -likely URI with AE COPD -does not appear volume overloaded -cont tx as per Pulm reccs -cont home lasix dose for now, no need for additional diuresis at this point CAD-h/o CABG and PCI with stents, h/o ischemic cardiomyopathy -stable -cont home medical regimen -most recent echo showed grossly normal LV systolic function HTN-adequately controlled -cont current medical regimen Thoracic aortic aneurysm -stable, has been monitored as outpatient -cont bblocker -outpatient follow up PPM-Mauricio sci -normal functioning on ekg, followed as outpatient, last checked 10/2015 normal functioning, planned for check 06/2016
[2016-04-23] MEDS ORDERED: SODIUM POLYSTYRENE SULFONATE 15 GM/60 ML BOTTLE PO ONE (13:15)
[2016-04-23] MEDS: TRIAMCINOLONE ACET 0.5% CREAM 15 GM TUBE TP SCH ×2 (15:02→22:03)
--- NOTE | 2016-04-23 15:48 | EKG ---
Test Reason : Blood Pressure : / mmHG Vent. Rate : 096 BPM Atrial Rate : 096 BPM P-R Int : 136 ms QRS Dur : 118 ms QT Int : 358 ms P-R-T Axes : -08 155 -20 degrees QTc Int : 452 ms Atrial-sensed ventricular-paced rhythm WITH OCCASIONAL PREMATURE VENTRICULAR COMPLEXES ABNORMAL ECG WHEN COMPARED WITH ECG OF 01-MAY-2015 09:35, NO SIGNIFICANT CHANGE WAS FOUND Confirmed by SAADIA PERALTA MD ([id number]) on 04/23/2016 3:47:38 PM Referred By: Confirmed By:SAADIA PERALTA MD
--- NOTE | 2016-04-23 16:46 | CONS ---
DATE OF CONSULTATION: DATE OF DICTATION: 04/23/2016 INFECTIOUS DISEASE CONSULTATION REQUESTING PHYSICIAN: Ronald Lamas M.D. CONSULTING PHYSICIAN: Patricia Kaplan M.D. HISTORY OF PRESENT ILLNESS: This is a 75-year-old man with a significant past medical history, coronary artery disease had a stent done last year. Has a history of a AAA that appears to be endovascularly repaired. He has a history of a CVA with residual left-sided weakness. He has a pacemaker, COPD on home oxygen 3 L, history of atrial fibrillation. He was brought in by ambulance yesterday to the emergency room with complaints of shortness of breath. The reports that the patient had been having a cold for most of last week. She said that by the middle of the week she thought he was getting better. Over the weekend he had more congestion and cough and became short of breath, and was brought to the emergency room. She reports the use of oxygen consistently at home. Many of his surgeries were in [place]. They were originally from [place] and moved back to the area last year. They have had no recent travel. They are surrounded by children, grandchildren, and great grandchildren, though they report no sick contacts. He is up to date on his vaccines. The notes as well he had a recent rash on his back which has resolved, and he has a new erythema of his right lower extremity which he describes as somewhat painful and itchy. PAST MEDICAL HISTORY: Notable for atrial fibrillation, with stent through his left arm. 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 He had a CVA that has left him with some speech issues and residual left-sided weakness. He has a history of COPD, home oxygen, hypercholesterolemia, hypertension. SURGICAL HISTORY: Notable for abdominal aortic aneurysm repair. This may have been done endovascularly. He has a history of a CABG in 2013 and a pacemaker. He had a right knee replacement done many years ago with subsequent knee infection, which finally healed, requiring VAC. Two years back, he fell, and he fractured his right femur, which was repaired. This was all done in [place]. He may have had bilateral inguinal hernia repairs; he is not sure. He is up to date on his vaccinations. ALLERGIES: He is allergic to PREDNISONE, which causes him to be jittery. MEDICATION: He takes Norvasc, Symbicort, duloxetine, ferrous sulfate, Lasix, lisinopril, metoprolol, Lyrica, Xarelto, Flomax, and Ambien as an outpatient. 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 He lives with his . He stopped smoking in 2006. REVIEW OF SYSTEMS: There has been no nausea, vomiting, diarrhea, or dysuria. He has no frequency. He has no CVA or suprapubic tenderness. He has no urinary complaints. He has no history of fever. The did not take his temperature at home. He denies fevers or chills. PHYSICAL EXAMINATION: Vital signs: Temperature was 100.9 in the emergency room, this morning is 98. Pulse is 74, blood pressure 133/72, respiratory rate 20, he weighs 159 pounds. HEENT: Normocephalic. Eyes are anicteric. He has no thrush. Neck: Supple. Lungs: Have scattered wheezes and rhonchi . Abdomen: Soft, nontender. He has well healed scars in both his groin. Extremities: Notable for erythema of the right lower extremity. He has a healed rash on his back. His chest x-ray is negative for infiltrate. White count is 9.5, hemoglobin 14.2, platelets of 165, INR 1.24, BUN and creatinine are 30 and 1.2. LFTs are normal. Urinalysis has negative leukocyte esterase and no white cells. Urine culture is growing 70,000 organisms, colony count influenza screen is negative . Blood cultures are pending. Chest x-ray is negative. IMPRESSION: In summary, this is a 75-year-old man with coronary artery disease, chronic obstructive pulmonary disease on home oxygen admitted with a chronic obstructive pulmonary disease exacerbation. He has probably viral in origin which is probably triggered his chronic obstructive pulmonary disease. I would check a respiratory syncytial virus antigen at this time. He has as well cellulitis of his right lower extremity, so I would treat him with Ancef at this time for the cellulitis and follow up the cultures. PATRICIA KAPLAN M.D. [id number]
[2016-04-24] MEDS: ALBUTEROL SO4 0.083% IH SOL 2.5 MG/3 ML VIAL.NEB. NEB SCH ×4 (00:12→18:13)
[2016-04-24] MEDS: methylPREDNISolone NA SUCC 40 MG/1 ML VIAL IVPB SCH ×3 (01:48→17:37)
[2016-04-24 07:55] LABS: ALBUMIN 3.3 g/dl (3.4-5.0)
[2016-04-24 08:00] LABS: ALK PHOS 47 U/L (45-117); ANION GAP 9 (8-16); BILIRUBIN,TOTAL 0.3 mg/dL (0.2-1.0); CALCIUM 8.5 mg/dL (8.5-10.1); CO2 28 mmol/L (21-32); CREATININE 1.1 mg/dL (0.7-1.3); GLUCOSE,RANDOM 121 mg/dL (74-106); SGOT/AST 18 U/L (15-37); SGPT/ALT 15 U/L (12-78); TOT PROT 6.8 g/dl (6.4-8.2)
[2016-04-24] MEDS: TRIAMCINOLONE ACET 0.5% CREAM 15 GM TUBE TP SCH ×2 (09:16→21:22)
[2016-04-24] MEDS: amLODIPine BESYLATE 5 MG TABLET (FP) PO SCH (09:17)
[2016-04-24] MEDS: METOPROLOL SUCCINATE 50 MG TAB.SR.24H (FP) PO SCH (09:17)
[2016-04-24] MEDS: LISINOPRIL 10 MG TABLET (FP) PO SCH (09:17)
[2016-04-24] MEDS: FUROSEMIDE 20 MG TABLET (FP) PO SCH (09:17)
[2016-04-24] MEDS: RIVAROXABAN 20 MG TABLET PO SCH ×2 (09:17→09:36)
[2016-04-24] MEDS: DULoxetine HCL 30 MG CAPSULE.DR (FP) PO SCH (09:17)
[2016-04-24] MEDS: TAMSULOSIN HCL 0.4 MG CAP.ER.24H (FP) PO SCH (09:17)
[2016-04-24] MEDS: CEFAZOLIN 1 GM/D5W 50 ML IVPB SCH ×2 (09:18→17:57)
[2016-04-24] MEDS: PREGABALIN 50 MG CAPSULE PO SCH ×2 (09:18→21:22)
[2016-04-24] MEDS: BUDESONIDE/FORMETEROL FUMARATE 160/4.5 mcg INHALER IH SCH ×2 (09:18→21:22)
[2016-04-24] MEDS: FERROUS SO4 325 MG TABLET (FP) PO SCH (09:18)
--- NOTE | 2016-04-24 09:39 | PN ---
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 (short form) - Note 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: Still with congested cough, but breathing feels a little better today. Intake & Output 04/21/16 04/22/16 04/23/16 04/24/16 23:59 23:59 23:59 23:59 Intake Total 150 500 Balance 150 500 Weight 161 lb 159 lb 4.8 oz Last Vital Signs Temp Pulse Resp BP Pulse Ox 98.3 F 104 H 20 127/78 96 04/24/16 06:00 04/24/16 06:00 04/24/16 06:00 04/23/16 17:30 04/23/16 08:59 Active Medications Acetaminophen (Tylenol -) 650 mg PO Q4H PRN PRN Reason: FEVER OR PAIN Albuterol Sulfate (Ventolin 0.083% Nebulizer Soln -) 1 amp NEB Q6HPO [facility] Last Admin: 04/24/16 06:52 Dose: 1 amp Amlodipine Besylate (Norvasc -) 5 mg PO DAILY [facility] Last Admin: 04/24/16 09:17 Dose: 5 mg Budesonide/Formoterol Fumarate (Symbicort 160/4.5mcg -) 2 puff IH BID [facility] Last Admin: 04/24/16 09:18 Dose: 2 puff Duloxetine HCl (Cymbalta -) 30 mg PO DAILY [facility] Last Admin: 04/24/16 09:17 Dose: 30 mg Ferrous Sulfate (Feosol -) 325 mg PO DAILY [facility] Last Admin: 04/24/16 09:18 Dose: 325 mg Furosemide (Lasix -) 20 mg PO DAILY [facility] Last Admin: 04/24/16 09:17 Dose: 20 mg Cefazolin Sodium (Ancef 1 Gm Premixed Ivpb -) 50 mls @ 100 mls/hr IVPB Q8H-IV [facility] Last Admin: 04/24/16 09:18 Dose: 100 mls/hr Lisinopril (Prinivil) 10 mg PO DAILY [facility] Last Admin: 04/24/16 09:17 Dose: 10 mg Methylprednisolone Sodium Succinate (Solu-Medrol -) 40 mg IVPB Q8H-IV [facility] Last Admin: 04/24/16 09:04 Dose: 40 mg Metoprolol Succinate (Toprol Xl -) 50 mg PO DAILY [facility] Last Admin: 04/24/16 09:17 Dose: 50 mg Pregabalin (Lyrica -) 100 mg PO BID [facility] Last Admin: 04/24/16 09:18 Dose: 100 mg Rivaroxaban (Xarelto -) 20 mg PO DAILY [facility] Last Admin: 04/24/16 09:36 Dose: Not Given Sodium Chloride (Normal Saline -) 500 ml IV Q20M PRN PRN Reason: MAP<65mm Hg OR SBP <90 Tamsulosin HCl (Flomax -) 0.4 mg PO DAILY [facility] Last Admin: 04/24/16 09:17 Dose: 0.4 mg Triamcinolone Acetonide (Aristocort 0.5% Cream -) 1 applic TP BID [facility] Last Admin: 04/24/16 09:16 Dose: 1 applic Zolpidem Tartrate (Ambien -) 5 mg PO HS PRN Constitutional: Yes: No Distress Eyes: Yes: Conjunctiva Clear, EOM Intact HENT: Yes: Atraumatic, Normocephalic Neck: Yes: Supple, Trachea Midline Cardiovascular: Yes: Pulse Irregular Respiratory: Yes: Congested Cough, On Nasal O2, Rhonchi, Wheezes. No: Accessory Muscle Use, Stridor ...Inspection: Yes: WNL ...Clubbing: No Gastrointestinal: Yes: Normal Bowel Sounds, Soft Renal/: Yes: WNL Musculoskeletal: Yes: WNL Extremities: Yes: WNL Edema: No Peripheral Pulses WNL: Yes Integumentary: Yes: WNL Neurological: Yes: Alert, Oriented, Pre-Existing Deficit Psychiatric: Yes: Alert, Oriented Labs: Laboratory Results - last 24 hr 04/24/16 06:15 Sodium 141 Potassium 4.0 D Chloride 104 Carbon Dioxide 28 Anion Gap 9 BUN 29 H Creatinine 1.1 Creat Clearance w eGFR > 60 Random Glucose 121 H D Calcium 8.5 Total Bilirubin 0.3 D AST 18 ALT 15 Alkaline Phosphatase 47 Total Protein 6.8 Albumin 3.3 L Problem List - Problems (1) Afib Code(s): I48.91 - UNSPECIFIED ATRIAL FIBRILLATION (2) Aortic aneurysm Code(s): I71.9 - AORTIC ANEURYSM OF UNSPECIFIED SITE, WITHOUT RUPTURE (3) CAD (coronary artery disease) Code(s): I25.10 - ATHSCL HEART DISEASE OF [place] CORONARY ARTERY W/O ANG PCTRS (4) COPD exacerbation Code(s): J44.1 - CHRONIC OBSTRUCTIVE PULMONARY DISEASE W (ACUTE) EXACERBATION (5) Hyperlipidemia Code(s): E78.5 - HYPERLIPIDEMIA, UNSPECIFIED (6) Hypertension Code(s): I10 - ESSENTIAL (PRIMARY) HYPERTENSION (7) Status post fall Code(s): Z91.89 - OTH PERSONAL RISK FACTORS, NOT ELSEWHERE CLASSIFIED (8) Acute exacerbation of chronic bronchitis Code(s): J20.9 - ACUTE BRONCHITIS, UNSPECIFIED J42 - UNSPECIFIED CHRONIC BRONCHITIS (9) BPH (benign prostatic hypertrophy) Code(s): N40.0 - BENIGN PROSTATIC HYPERPLASIA WITHOUT LOWER URINRY TRACT SYMP (10) Congestive heart failure (CHF) Code(s): I50.9 - HEART FAILURE, UNSPECIFIED (11) Focal motor deficit Code(s): R29.898 - OTH SYMPTOMS AND SIGNS INVOLVING THE MUSCULOSKELETAL SYSTEM (12) History of endovascular stent graft for abdominal aortic aneurysm Code(s): Z95.828 - PRESENCE OF OTHER VASCULAR IMPLANTS AND GRAFTS (13) History of permanent cardiac pacemaker placement Code(s): Z95.0 - PRESENCE OF CARDIAC PACEMAKER (14) Paroxysmal atrial fibrillation Code(s): I48.0 - PAROXYSMAL ATRIAL FIBRILLATION (15) Presence of cardiac pacemaker Code(s): Z95.0 - PRESENCE OF CARDIAC PACEMAKER (16) Shortness of breath Code(s): R06.02 - SHORTNESS OF BREATH (17) Stented coronary artery Code(s): Z95.5 - PRESENCE OF CORONARY ANGIOPLASTY IMPLANT AND GRAFT (18) Thoracic aortic aneurysm Code(s): I71.2 - THORACIC AORTIC ANEURYSM, WITHOUT RUPTURE Assessment/Plan Medrol BD TX O2 as needed ABX for cellulitis No smoking Outpatient PFTs Dr Alberto Problem List - Problems (1) Afib Code(s): I48.91 - UNSPECIFIED ATRIAL FIBRILLATION (2) Aortic aneurysm Code(s): I71.9 - AORTIC ANEURYSM OF UNSPECIFIED SITE, WITHOUT RUPTURE (3) CAD (coronary artery disease) Code(s): I25.10 - ATHSCL HEART DISEASE OF [place] CORONARY ARTERY W/O ANG PCTRS (4) COPD exacerbation Code(s): J44.1 - CHRONIC OBSTRUCTIVE PULMONARY DISEASE W (ACUTE) EXACERBATION (5) Hyperlipidemia Code(s): E78.5 - HYPERLIPIDEMIA, UNSPECIFIED (6) Hypertension Code(s): I10 - ESSENTIAL (PRIMARY) HYPERTENSION (7) Status post fall Code(s): Z91.89 - OT PERSONAL RISK FACTORS, NOT ELSEWHERE CLASSIFIED (8) Acute exacerbation of chronic bronchitis Code(s): J20.9 - ACUTE BRONCHITIS, UNSPECIFIED J42 - UNSPECIFIED CHRONIC BRONCHITIS (9) BPH (benign prostatic hypertrophy) Code(s): N40.0 - BENIGN PROSTATIC HYPERPLASIA WITHOUT LOWER URINRY TRACT SYMP (10) Congestive heart failure (CHF) Code(s): I50.9 - HEART FAILURE, UNSPECIFIED (11) Focal motor deficit Code(s): R29.898 - OT SYMPTOMS AND SIGNS INVOLVING THE MUSCULOSKELETAL SYSTEM (12) History of endovascular stent graft for abdominal aortic aneurysm Code(s): Z95.828 - PRESENCE OF OTHER VASCULAR IMPLANTS AND GRAFTS (13) History of permanent cardiac pacemaker placement Code(s): Z95.0 - PRESENCE OF CARDIAC PACEMAKER (14) Paroxysmal atrial fibrillation Code(s): I48.0 - PAROXYSMAL ATRIAL FIBRILLATION (15) Presence of cardiac pacemaker Code(s): Z95.0 - PRESENCE OF CARDIAC PACEMAKER (16) Shortness of breath Code(s): R06.02 - SHORTNESS OF BREATH (17) Stented coronary artery Code(s): Z95.5 - PRESENCE OF CORONARY ANGIOPLASTY IMPLANT AND GRAFT (18) Thoracic aortic aneurysm Code(s): I71.2 - THORACIC AORTIC ANEURYSM, WITHOUT RUPTURE
--- NOTE | 2016-04-24 09:59 | PN ---
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, Physician Chief Complaint: no distress Feeling little better History of Present Illness: dry cough - Current Medication List Current Medications: Active Medications Acetaminophen (Tylenol -) 650 mg PO Q4H PRN PRN Reason: FEVER OR PAIN Albuterol Sulfate (Ventolin 0.083% Nebulizer Soln -) 1 amp NEB Q6HPO [facility] Last Admin: 04/24/16 06:52 Dose: 1 amp Amlodipine Besylate (Norvasc -) 5 mg PO DAILY [facility] Last Admin: 04/24/16 09:17 Dose: 5 mg Budesonide/Formoterol Fumarate (Symbicort 160/4.5mcg -) 2 puff IH BID [facility] Last Admin: 04/24/16 09:18 Dose: 2 puff Duloxetine HCl (Cymbalta -) 30 mg PO DAILY [facility] Last Admin: 04/24/16 09:17 Dose: 30 mg Ferrous Sulfate (Feosol -) 325 mg PO DAILY [facility] Last Admin: 04/24/16 09:18 Dose: 325 mg Furosemide (Lasix -) 20 mg PO DAILY [facility] Last Admin: 04/24/16 09:17 Dose: 20 mg Cefazolin Sodium (Ancef 1 Gm Premixed Ivpb -) 50 mls @ 100 mls/hr IVPB Q8H-IV [facility] Last Admin: 04/24/16 09:18 Dose: 100 mls/hr Lisinopril (Prinivil) 10 mg PO DAILY [facility] Last Admin: 04/24/16 09:17 Dose: 10 mg Methylprednisolone Sodium Succinate (Solu-Medrol -) 40 mg IVPB Q8H-IV [facility] Last Admin: 04/24/16 09:04 Dose: 40 mg Metoprolol Succinate (Toprol Xl -) 50 mg PO DAILY [facility] Last Admin: 04/24/16 09:17 Dose: 50 mg Pregabalin (Lyrica -) 100 mg PO BID [facility] Last Admin: 04/24/16 09:18 Dose: 100 mg Rivaroxaban (Xarelto -) 20 mg PO DAILY [facility] Last Admin: 04/24/16 09:36 Dose: Not Given Sodium Chloride (Normal Saline -) 500 ml IV Q20M PRN PRN Reason: MAP<65mm Hg OR SBP <90 Tamsulosin HCl (Flomax -) 0.4 mg PO DAILY [facility] Last Admin: 04/24/16 09:17 Dose: 0.4 mg Triamcinolone Acetonide (Aristocort 0.5% Cream -) 1 applic TP BID [facility] Last Admin: 04/24/16 09:16 Dose: 1 applic Zolpidem Tartrate (Ambien -) 5 mg PO HS PRN - Objective Vital Signs: Vital Signs Temperature 98.3 F 04/24/16 06:00 Pulse Rate 104 H 04/24/16 06:00 Respiratory Rate 20 04/24/16 06:00 Blood Pressure 127/78 04/23/16 17:30 O2 Sat by Pulse Oximetry (%) 96 04/23/16 08:59 Constitutional: Yes: No Distress Cardiovascular: Yes: Regular Rate and Rhythm Respiratory: Yes: Other (no rales, decreased breath sounds b/l c/w COPD) Gastrointestinal: Yes: Soft Edema: No Neurological: Yes: Alert Labs: CBC, BMP 04/23/16 07:00 04/24/16 06:15 INR, PTT INR 1.24 (0.82-1.09) H 04/22/16 12:26 Microbiology 04/22/16 12:26 Blood - Peripheral Venous Blood Culture - Preliminary NO GROWTH OBTAINED AFTER 24 HOURS, INCUBATION TO CONTINUE FOR 4 DAYS. 04/22/16 12:20 Blood - Peripheral Venous Blood Culture - Preliminary NO GROWTH OBTAINED AFTER 24 HOURS, INCUBATION TO CONTINUE FOR 4 DAYS. Laboratory Tests 04/23/16 04/24/16 07:00 06:15 WBC 9.5 Hgb 14.2 D Hct 42.7 Plt Count 165 Sodium 141 Potassium 4.0 D BUN 29 H Creatinine 1.1 - ....Imaging Chest X-ray: Image Reviewed (COPD, no effusions. No infiltrate. No sig. increase PVC) Assessment/Plan Assessment/Plan 75 year old man with a history of HTN, HLD, Afib, CAD s/p CABG s/p stents, PPM, ICM refused ICD in the past, PAD, Thoracic aortic aneursym, CVA with residual L sided weakness, COPD admitted with worsening sob, fever, cough for the past several days. SOB/nasal congestion/subjective fevers/cough -likely URI with AE COPD -Euvolemic. -cont tx as per Pulm reccs -cont home lasix dose for now, no need to intensify diuretic CAD-h/o CABG and PCI with stents, h/o ischemic cardiomyopathy -stable -cont home medical regimen: Toprol and Lisinopril -most recent echo showed grossly normal LV systolic function HTN-adequately controlled -cont current medical regimen Thoracic aortic aneurysm -stable, has been monitored as outpatient and evaluated/followed by Vascular surgery -cont bblocker -outpatient follow up- has been deemed a very high risk candidate for intervention. PPM-Mauricio sci -normal functioning on ekg, followed as outpatient, last checked 10/2015 normal functioning, planned for check 06/2016
--- NOTE | 2016-04-24 10:58 | PN ---
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, Physician Chief Complaint: feeling better - Current Medication List Current Medications: Active Medications Acetaminophen (Tylenol -) 650 mg PO Q4H PRN PRN Reason: FEVER OR PAIN Albuterol Sulfate (Ventolin 0.083% Nebulizer Soln -) 1 amp NEB Q6HPO [facility] [place] Last Admin: 04/24/16 06:52 Dose: 1 amp Amlodipine Besylate (Norvasc -) 5 mg PO DAILY [facility] [place] Last Admin: 04/24/16 09:17 Dose: 5 mg Budesonide/Formoterol Fumarate (Symbicort 160/4.5mcg -) 2 puff IH BID [facility] [place] Last Admin: 04/24/16 09:18 Dose: 2 puff Duloxetine HCl (Cymbalta -) 30 mg PO DAILY [facility] [place] Last Admin: 04/24/16 09:17 Dose: 30 mg Ferrous Sulfate (Feosol -) 325 mg PO DAILY [facility] [place] Last Admin: 04/24/16 09:18 Dose: 325 mg Furosemide (Lasix -) 20 mg PO DAILY [facility] [place] Last Admin: 04/24/16 09:17 Dose: 20 mg Guaifenesin (Robitussin -) 10 ml PO Q4H PRN PRN Reason: COUGH Cefazolin Sodium (Ancef 1 Gm Premixed Ivpb -) 50 mls @ 100 mls/hr IVPB Q8H-IV [facility] [place] Last Admin: 04/24/16 09:18 Dose: 100 mls/hr Lisinopril (Prinivil) 10 mg PO DAILY [facility] [place] Last Admin: 04/24/16 09:17 Dose: 10 mg Methylprednisolone Sodium Succinate (Solu-Medrol -) 40 mg IVPB Q8H-IV [facility] [place] Last Admin: 04/24/16 09:04 Dose: 40 mg Metoprolol Succinate (Toprol Xl -) 50 mg PO DAILY [facility] [place] Last Admin: 04/24/16 09:17 Dose: 50 mg Pregabalin (Lyrica -) 100 mg PO BID [facility] [place] Last Admin: 04/24/16 09:18 Dose: 100 mg Rivaroxaban (Xarelto -) 20 mg PO DAILY [facility] [place] Last Admin: 04/24/16 09:36 Dose: Not Given Sodium Chloride (Normal Saline -) 500 ml IV Q20M PRN PRN Reason: MAP<65mm Hg OR SBP <90 Tamsulosin HCl (Flomax -) 0.4 mg PO DAILY [facility] [place] Last Admin: 04/24/16 09:17 Dose: 0.4 mg Triamcinolone Acetonide (Aristocort 0.5% Cream -) 1 applic TP BID [facility] [place] Last Admin: 04/24/16 09:16 Dose: 1 applic Zolpidem Tartrate (Ambien -) 5 mg PO HS PRN - Objective Vital Signs: Vital Signs Temperature 98.3 F 04/24/16 06:00 Pulse Rate 104 H 04/24/16 06:00 Respiratory Rate 20 04/24/16 06:00 Blood Pressure 127/78 04/23/16 17:30 O2 Sat by Pulse Oximetry (%) 96 04/23/16 08:59 Constitutional: Yes: Calm, Thin Neck: Yes: Trachea Midline Cardiovascular: Yes: Regular Rate and Rhythm, S1, S2 Respiratory: Yes: Other (decreased) Gastrointestinal: Yes: Normal Bowel Sounds, Soft Extremities: Yes: Erythema (slightly better on leg) Neurological: Yes: Alert, Oriented Labs: CBC, BMP 04/23/16 07:00 04/24/16 06:15 INR, PTT INR 1.24 (0.82-1.09) H 04/22/16 12:26 Problem List - Problems (1) COPD exacerbation Assessment/Plan: URI with copd eacerbation solumedrol \oxygen bronchodillators nasonex Code(s): J44.1 - CHRONIC OBSTRUCTIVE PULMONARY DISEASE W (ACUTE) EXACERBATION (2) Afib Assessment/Plan: xarelto Code(s): I48.91 - UNSPECIFIED ATRIAL FIBRILLATION (3) Cellulitis of left lower leg Assessment/Plan: iv ancef Code(s): L03.116 - CELLULITIS OF LEFT LOWER LIMB (4) Chronic combined systolic and diastolic CHF (congestive heart failure) Assessment/Plan: stable conitue curent meds seen by cardiology Code(s): I50.42 - CHRONIC COMBINED SYSTOLIC AND DIASTOLIC HRT FAIL (5) BPH (benign prostatic hypertrophy) Assessment/Plan: flomax Code(s): N40.0 - BENIGN PROSTATIC HYPERPLASIA WITHOUT LOWER URINRY TRACT SYMP
[2016-04-24] MEDS: guaiFENesin 200 MG/10 ML 10 ML UNIT-DOSE CUPS PO PRN (11:29)
--- NOTE | 2016-04-24 16:54 | PN ---
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 (short form) - Note 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: cough improving Vital Signs Period Temp Pulse Resp BP Sys/Varghese Pulse Ox Last 24 Hr 98.0 F-98.4 F 76-104 16-20 114-142/62-82 92 cor-rrr lungs bilateral rhonchi/wheeze abd soft,nt ext less erythema of the RLE CBC, BMP 04/23/16 07:00 04/24/16 06:15 Microbiology 04/22/16 12:20 Blood - Peripheral Venous Blood Culture - Preliminary NO GROWTH OBTAINED AFTER 48 HOURS, INCUBATION TO CONTINUE FOR 3 DAYS. 04/22/16 12:26 Blood - Peripheral Venous Blood Culture - Preliminary NO GROWTH OBTAINED AFTER 48 HOURS, INCUBATION TO CONTINUE FOR 3 DAYS. 04/22/16 12:13 Urine - Urine Clean Catch Urine Culture - Final Contaminated: Please Repeat 04/22/16 12:13 Nasopharyngeal Swab Influenza Types A,B Antigen (YNES) - Final 04/22/16 12:13 Nasopharyngeal Swab - Final a/p copd exacerbation cellulitis RLE viral syndrome continue cefazolin steroids/nebs per pulmonary improving Problem List - Problems (1) Cellulitis of left lower leg Code(s): L03.116 - CELLULITIS OF LEFT LOWER LIMB (2) COPD exacerbation Code(s): J44.1 - CHRONIC OBSTRUCTIVE PULMONARY DISEASE W (ACUTE) EXACERBATION (3) Viral syndrome Code(s): B34.9 - VIRAL INFECTION, UNSPECIFIED
[2016-04-25] MEDS: ALBUTEROL SO4 0.083% IH SOL 2.5 MG/3 ML VIAL.NEB. NEB SCH ×4 (00:05→18:51)
[2016-04-25] MEDS: CEFAZOLIN 1 GM/D5W 50 ML IVPB SCH ×2 (01:50→09:29)
[2016-04-25] MEDS: methylPREDNISolone NA SUCC 40 MG/1 ML VIAL IVPB SCH ×3 (01:51→17:58)
[2016-04-25] MEDS ORDERED: PT OWN MED DRAWER 7, Y5N ONE (09:15)
--- NOTE | 2016-04-25 09:20 | PN ---
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, Physician Chief Complaint: feeling better - Current Medication List Current Medications: Active Medications Acetaminophen (Tylenol -) 650 mg PO Q4H PRN PRN Reason: FEVER OR PAIN Albuterol Sulfate (Ventolin 0.083% Nebulizer Soln -) 1 amp NEB Q6HPO [facility] Last Admin: 04/25/16 06:48 Dose: 1 amp Amlodipine Besylate (Norvasc -) 5 mg PO DAILY [facility] Last Admin: 04/24/16 09:17 Dose: 5 mg Budesonide/Formoterol Fumarate (Symbicort 160/4.5mcg -) 2 puff IH BID [facility] Last Admin: 04/24/16 21:22 Dose: 2 puff Duloxetine HCl (Cymbalta -) 30 mg PO DAILY [facility] Last Admin: 04/24/16 09:17 Dose: 30 mg Ferrous Sulfate (Feosol -) 325 mg PO DAILY [facility] Last Admin: 04/24/16 09:18 Dose: 325 mg Furosemide (Lasix -) 20 mg PO DAILY [facility] Last Admin: 04/24/16 09:17 Dose: 20 mg Guaifenesin (Robitussin -) 10 ml PO Q4H PRN PRN Reason: COUGH Last Admin: 04/24/16 11:29 Dose: 10 ml Cefazolin Sodium (Ancef 1 Gm Premixed Ivpb -) 50 mls @ 100 mls/hr IVPB Q8H-IV [facility] Last Admin: 04/25/16 01:50 Dose: 100 mls/hr Lisinopril (Prinivil) 10 mg PO DAILY [facility] Last Admin: 04/24/16 09:17 Dose: 10 mg Methylprednisolone Sodium Succinate (Solu-Medrol -) 40 mg IVPB Q8H-IV [facility] Last Admin: 04/25/16 01:51 Dose: 40 mg Metoprolol Succinate (Toprol Xl -) 50 mg PO DAILY [facility] Last Admin: 04/24/16 09:17 Dose: 50 mg Pregabalin (Lyrica -) 100 mg PO BID [facility] Last Admin: 04/24/16 21:22 Dose: 100 mg Rivaroxaban (Xarelto -) 20 mg PO DAILY [facility] Last Admin: 04/24/16 09:36 Dose: Not Given Sodium Chloride (Normal Saline -) 500 ml IV Q20M PRN PRN Reason: MAP<65mm Hg OR SBP <90 Tamsulosin HCl (Flomax -) 0.4 mg PO DAILY [facility] Last Admin: 04/24/16 09:17 Dose: 0.4 mg Triamcinolone Acetonide (Aristocort 0.5% Cream -) 1 applic TP BID [facility] Last Admin: 04/24/16 21:22 Dose: 1 applic Zolpidem Tartrate (Ambien -) 5 mg PO HS PRN - Objective Vital Signs: Vital Signs Temperature 97.6 F 04/25/16 06:00 Pulse Rate 78 04/25/16 06:00 Respiratory Rate 20 04/25/16 06:00 Blood Pressure 131/81 04/25/16 06:00 O2 Sat by Pulse Oximetry (%) 92 L 04/25/16 03:11 Constitutional: Yes: No Distress Cardiovascular: Yes: Regular Rate and Rhythm (paced) Respiratory: Yes: Other (decreased breath sounds, no rales) Gastrointestinal: Yes: Soft Edema: No Neurological: Yes: Alert Labs: CBC, BMP 04/23/16 07:00 INR, PTT INR 1.24 (0.82-1.09) H 04/22/16 12:26 Laboratory Tests 04/25/16 06:15 Sodium Pending Potassium Pending BUN Pending Creatinine Pending Total Bilirubin Pending AST Pending ALT Pending Alkaline Phosphatase Pending Assessment/Plan Assessment/Plan 75 year old man with a history of HTN, HLD, Afib, CAD s/p CABG s/p stents, PPM, ICM refused ICD in the past, PAD, Thoracic aortic aneursym, CVA with residual L sided weakness, COPD admitted with worsening sob, fever, cough for the past several days. SOB/nasal congestion/subjective fevers/cough -likely URI with AE COPD - remains euvolemic. -cont tx as per Pulm reccs -cont home lasix dose for now, no need to intensify diuretic CAD-h/o CABG and PCI with stents, h/o ischemic cardiomyopathy -stable -cont home medical regimen: Toprol and Lisinopril -most recent echo showed grossly normal LV systolic function HTN-adequately controlled -cont current medical regimen Thoracic aortic aneurysm -stable, has been monitored as outpatient and evaluated/followed by Vascular surgery -cont bblocker -outpatient follow up- has been deemed a very high risk candidate for intervention. PPM-Mauricio sci -normal functioning on ekg, followed as outpatient, last checked 10/2015 normal functioning, planned for check 06/2016 -h/o PAF, continue AC
[2016-04-25 09:27] LABS: ALBUMIN 3.1 g/dl (3.4-5.0); BILIRUBIN,TOTAL 0.3 mg/dL (0.2-1.0); CALCIUM 8.5 mg/dL (8.5-10.1); CREATININE 1.2 mg/dL (0.7-1.3); TOT PROT 6.7 g/dl (6.4-8.2)
[2016-04-25] MEDS: TAMSULOSIN HCL 0.4 MG CAP.ER.24H (FP) PO SCH (09:29)
[2016-04-25] MEDS: LISINOPRIL 10 MG TABLET (FP) PO SCH (09:29)
[2016-04-25] MEDS: guaiFENesin 200 MG/10 ML 10 ML UNIT-DOSE CUPS PO PRN ×2 (09:29→22:18)
[2016-04-25] MEDS: DULoxetine HCL 30 MG CAPSULE.DR (FP) PO SCH (09:29)
[2016-04-25] MEDS: PREGABALIN 50 MG CAPSULE PO SCH ×2 (09:30→22:13)
[2016-04-25] MEDS: RIVAROXABAN 20 MG TABLET PO SCH (09:31)
[2016-04-25] MEDS: METOPROLOL SUCCINATE 50 MG TAB.SR.24H (FP) PO SCH (09:31)
[2016-04-25] MEDS: FERROUS SO4 325 MG TABLET (FP) PO SCH (09:31)
[2016-04-25] MEDS: FUROSEMIDE 20 MG TABLET (FP) PO SCH (09:31)
[2016-04-25] MEDS: BUDESONIDE/FORMETEROL FUMARATE 160/4.5 mcg INHALER IH SCH ×2 (09:32→22:15)
[2016-04-25] MEDS: TRIAMCINOLONE ACET 0.5% CREAM 15 GM TUBE TP SCH ×2 (09:32→22:15)
[2016-04-25] MEDS: amLODIPine BESYLATE 5 MG TABLET (FP) PO SCH (10:02)
--- NOTE | 2016-04-25 13:50 | PN ---
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 (short form) - Note 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: still SOB still wheezing Vital Signs Period Temp Pulse Resp BP Sys/Varghese Pulse Ox Last 24 Hr 97.6 F-98.3 F 78-98 16-20 114-131/61-81 92-96 cor-rrr lungs scattered wheeze abd soft,nt ext no edema erythema RLE resolved CBC, BMP 04/23/16 07:00 04/25/16 06:15 Microbiology 04/22/16 12:20 Blood - Peripheral Venous Blood Culture - Preliminary NO GROWTH OBTAINED AFTER 72 HOURS, INCUBATION TO CONTINUE FOR 2 DAYS. 04/22/16 12:26 Blood - Peripheral Venous Blood Culture - Preliminary NO GROWTH OBTAINED AFTER 72 HOURS, INCUBATION TO CONTINUE FOR 2 DAYS. 04/22/16 12:13 Urine - Urine Clean Catch Urine Culture - Final Contaminated: Please Repeat 04/22/16 12:13 Nasopharyngeal Swab Influenza Types A,B Antigen (YNES) - Final 04/22/16 12:13 Nasopharyngeal Swab - Final a/p copd exacerbation- per pulmonary cellulitis resolved d/c cefazolin Problem List - Problems (1) Cellulitis of left lower leg Code(s): L03.116 - CELLULITIS OF LEFT LOWER LIMB (2) COPD exacerbation Code(s): J44.1 - CHRONIC OBSTRUCTIVE PULMONARY DISEASE W (ACUTE) EXACERBATION (3) Viral syndrome Code(s): B34.9 - VIRAL INFECTION, UNSPECIFIED
--- NOTE | 2016-04-25 14:57 | PN ---
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 (short form) - Note 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: PULMONARY Still short of breath with chest tightness and nonproductive cough. Last Vital Signs Temp Pulse Resp BP Pulse Ox 98.1 F 84 16 120/78 96 04/25/16 14:21 04/25/16 14:21 04/25/16 14:21 04/25/16 14:21 04/25/16 11:25 Gen: NAD at rest Heart: RRR Lung: distant breath sounds, poor air movement Abd: soft, nontender Ext: no edema CBC, BMP 04/23/16 07:00 04/25/16 06:15 Active Medications Acetaminophen (Tylenol -) 650 mg PO Q4H PRN PRN Reason: FEVER OR PAIN Albuterol Sulfate (Ventolin 0.083% Nebulizer Soln -) 1 amp NEB Q6HPO [facility] Last Admin: 04/25/16 11:39 Dose: 1 amp Amlodipine Besylate (Norvasc -) 5 mg PO DAILY [facility] Last Admin: 04/25/16 10:02 Dose: 5 mg Budesonide/Formoterol Fumarate (Symbicort 160/4.5mcg -) 2 puff IH BID [facility] Last Admin: 04/25/16 09:32 Dose: 2 puff Duloxetine HCl (Cymbalta -) 30 mg PO DAILY [facility] Last Admin: 04/25/16 09:29 Dose: 30 mg Ferrous Sulfate (Feosol -) 325 mg PO DAILY [facility] Last Admin: 04/25/16 09:31 Dose: 325 mg Furosemide (Lasix -) 20 mg PO DAILY [facility] Last Admin: 04/25/16 09:31 Dose: 20 mg Guaifenesin (Robitussin -) 10 ml PO Q4H PRN PRN Reason: COUGH Last Admin: 04/25/16 09:29 Dose: 10 ml Lisinopril (Prinivil) 10 mg PO DAILY [facility] Last Admin: 04/25/16 09:29 Dose: 10 mg Methylprednisolone Sodium Succinate (Solu-Medrol -) 40 mg IVPB Q8H-IV [facility] Last Admin: 04/25/16 09:31 Dose: 40 mg Metoprolol Succinate (Toprol Xl -) 50 mg PO DAILY [facility] Last Admin: 04/25/16 09:31 Dose: 50 mg Pregabalin (Lyrica -) 100 mg PO BID [facility] Last Admin: 04/25/16 09:30 Dose: 100 mg Rivaroxaban (Xarelto -) 20 mg PO DAILY [facility] Last Admin: 04/25/16 09:31 Dose: 20 mg Sodium Chloride (Normal Saline -) 500 ml IV Q20M PRN PRN Reason: MAP<65mm Hg OR SBP <90 Tamsulosin HCl (Flomax -) 0.4 mg PO DAILY [facility] Last Admin: 04/25/16 09:29 Dose: 0.4 mg Triamcinolone Acetonide (Aristocort 0.5% Cream -) 1 applic TP BID [facility] Last Admin: 04/25/16 09:32 Dose: 1 applic Zolpidem Tartrate (Ambien -) 5 mg PO HS PRN A/P Acute COPD Exacerbation Atrial Fibrillation CAD s/p CABG s/p PPM PAD h/o CVA HTN Hyperlipidemia - continue medrol at current dose - inhaled bronchodilators - O2 to keep SpO2 >90% - continue cardiac meds - rate controlled - continue anticoagulation
--- NOTE | 2016-04-25 22:14 | PN ---
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, Physician History of Present Illness: Pt still coughing - Current Medication List Current Medications: Active Medications Acetaminophen (Tylenol -) 650 mg PO Q4H PRN PRN Reason: FEVER OR PAIN Albuterol Sulfate (Ventolin 0.083% Nebulizer Soln -) 1 amp NEB Q6HPO [facility] Last Admin: 04/25/16 18:51 Dose: 1 amp Amlodipine Besylate (Norvasc -) 5 mg PO DAILY [facility] Last Admin: 04/25/16 10:02 Dose: 5 mg Budesonide/Formoterol Fumarate (Symbicort 160/4.5mcg -) 2 puff IH BID [facility] Last Admin: 04/25/16 09:32 Dose: 2 puff Duloxetine HCl (Cymbalta -) 30 mg PO DAILY [facility] Last Admin: 04/25/16 09:29 Dose: 30 mg Ferrous Sulfate (Feosol -) 325 mg PO DAILY [facility] Last Admin: 04/25/16 09:31 Dose: 325 mg Furosemide (Lasix -) 20 mg PO DAILY [facility] Last Admin: 04/25/16 09:31 Dose: 20 mg Guaifenesin (Robitussin -) 10 ml PO Q4H PRN PRN Reason: COUGH Last Admin: 04/25/16 09:29 Dose: 10 ml Lisinopril (Prinivil) 10 mg PO DAILY [facility] Last Admin: 04/25/16 09:29 Dose: 10 mg Methylprednisolone Sodium Succinate (Solu-Medrol -) 40 mg IVPB Q8H-IV [facility] Last Admin: 04/25/16 17:58 Dose: 40 mg Metoprolol Succinate (Toprol Xl -) 50 mg PO DAILY [facility] Last Admin: 04/25/16 09:31 Dose: 50 mg Pregabalin (Lyrica -) 100 mg PO BID [facility] Last Admin: 04/25/16 09:30 Dose: 100 mg Rivaroxaban (Xarelto -) 20 mg PO DAILY [facility] Last Admin: 04/25/16 09:31 Dose: 20 mg Sodium Chloride (Normal Saline -) 500 ml IV Q20M PRN PRN Reason: MAP<65mm Hg OR SBP <90 Tamsulosin HCl (Flomax -) 0.4 mg PO DAILY [facility] Last Admin: 04/25/16 09:29 Dose: 0.4 mg Triamcinolone Acetonide (Aristocort 0.5% Cream -) 1 applic TP BID [facility] Last Admin: 04/25/16 09:32 Dose: 1 applic Zolpidem Tartrate (Ambien -) 5 mg PO HS PRN - Objective Vital Signs: Vital Signs Temperature 98.6 F 04/25/16 17:48 Pulse Rate 80 04/25/16 17:48 Respiratory Rate 20 04/25/16 17:48 Blood Pressure 131/68 04/25/16 17:48 O2 Sat by Pulse Oximetry (%) 96 04/25/16 11:25 Neck: Yes: Supple Cardiovascular: Yes: WNL, Regular Rate and Rhythm Respiratory: Yes: Wheezes Gastrointestinal: Yes: WNL, Normal Bowel Sounds, Soft Labs: CBC, BMP 04/23/16 07:00 04/25/16 06:15 INR, PTT INR 1.24 (0.82-1.09) H 04/22/16 12:26 Problem List - Problems (1) COPD exacerbation Assessment/Plan: Pt still reguiring IV steroids Cont nebulizers Code(s): J44.1 - CHRONIC OBSTRUCTIVE PULMONARY DISEASE W (ACUTE) EXACERBATION (2) Cellulitis of left lower leg Assessment/Plan: Resolved Code(s): L03.116 - CELLULITIS OF LEFT LOWER LIMB (3) Chronic combined systolic and diastolic CHF (congestive heart failure) Code(s): I50.42 - CHRONIC COMBINED SYSTOLIC AND DIASTOLIC HRT FAIL (4) Paroxysmal atrial fibrillation Assessment/Plan: Cont xarelto Code(s): I48.0 - PAROXYSMAL ATRIAL FIBRILLATION (5) Thoracic aortic aneurysm Code(s): I71.2 - THORACIC AORTIC ANEURYSM, WITHOUT RUPTURE
[2016-04-26] MEDS: ALBUTEROL SO4 0.083% IH SOL 2.5 MG/3 ML VIAL.NEB. NEB SCH ×4 (00:10→17:43)
[2016-04-26] MEDS: methylPREDNISolone NA SUCC 40 MG/1 ML VIAL IVPB SCH ×3 (01:55→18:08)
--- NOTE | 2016-04-26 09:07 | PN ---
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 (short form) - Note 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: Still with congested cough, but breathing feels a little better today. No CP. Intake & Output 04/23/16 04/24/16 04/25/16 04/26/16 23:59 23:59 23:59 23:59 Intake Total 759 678 0899 Balance 692 339 7491 Weight 159 lb 4.8 oz Last Vital Signs Temp Pulse Resp BP Pulse Ox 98.5 F 73 18 152/78 96 04/26/16 09:05 04/26/16 09:05 04/26/16 09:05 04/26/16 09:05 04/25/16 21:00 Active Medications Acetaminophen (Tylenol -) 650 mg PO Q4H PRN PRN Reason: FEVER OR PAIN Albuterol Sulfate (Ventolin 0.083% Nebulizer Soln -) 1 amp NEB Q6HPO [facility] Last Admin: 04/26/16 06:57 Dose: 1 amp Amlodipine Besylate (Norvasc -) 5 mg PO DAILY [facility] Last Admin: 04/25/16 10:02 Dose: 5 mg Budesonide/Formoterol Fumarate (Symbicort 160/4.5mcg -) 2 puff IH BID [facility] Last Admin: 04/25/16 22:15 Dose: 2 puff Duloxetine HCl (Cymbalta -) 30 mg PO DAILY [facility] Last Admin: 04/25/16 09:29 Dose: 30 mg Ferrous Sulfate (Feosol -) 325 mg PO DAILY [facility] Last Admin: 04/25/16 09:31 Dose: 325 mg Furosemide (Lasix -) 20 mg PO DAILY [facility] Last Admin: 04/25/16 09:31 Dose: 20 mg Guaifenesin (Robitussin -) 10 ml PO Q4H PRN PRN Reason: COUGH Last Admin: 04/25/16 22:18 Dose: 10 ml Lisinopril (Prinivil) 10 mg PO DAILY [facility] Last Admin: 04/25/16 09:29 Dose: 10 mg Methylprednisolone Sodium Succinate (Solu-Medrol -) 40 mg IVPB Q8H-IV [facility] Last Admin: 04/26/16 01:55 Dose: 40 mg Metoprolol Succinate (Toprol Xl -) 50 mg PO DAILY [facility] Last Admin: 04/25/16 09:31 Dose: 50 mg Pregabalin (Lyrica -) 100 mg PO BID [facility] Last Admin: 04/25/16 22:13 Dose: 100 mg Rivaroxaban (Xarelto -) 20 mg PO DAILY [facility] Last Admin: 04/25/16 09:31 Dose: 20 mg Sodium Chloride (Normal Saline -) 500 ml IV Q20M PRN PRN Reason: MAP<65mm Hg OR SBP <90 Tamsulosin HCl (Flomax -) 0.4 mg PO DAILY [facility] Last Admin: 04/25/16 09:29 Dose: 0.4 mg Triamcinolone Acetonide (Aristocort 0.5% Cream -) 1 applic TP BID [facility] Last Admin: 04/25/16 22:15 Dose: 1 applic Zolpidem Tartrate (Ambien -) 5 mg PO HS PRN Constitutional: Yes: No Distress Eyes: Yes: Conjunctiva Clear, EOM Intact HENT: Yes: Atraumatic, Normocephalic Neck: Yes: Supple, Trachea Midline Cardiovascular: Yes: Pulse Irregular Respiratory: Yes: Congested Cough, On Nasal O2, Rhonchi, No: Wheeze heard today , Accessory Muscle Use, Stridor ...Inspection: Yes: WNL ...Clubbing: No Gastrointestinal: Yes: Normal Bowel Sounds, Soft Renal/: Yes: WNL Musculoskeletal: Yes: WNL Extremities: Yes: WNL Edema: No Peripheral Pulses WNL: Yes Integumentary: Yes: WNL Neurological: Yes: Alert, Oriented, Pre-Existing Deficit Psychiatric: Yes: Alert, Oriented Labs: Laboratory Results - last 24 hr 04/25/16 06:15 Sodium 142 Potassium 4.4 Chloride 103 Carbon Dioxide 29 Anion Gap 10 BUN 29 H Creatinine 1.2 Creat Clearance w eGFR 58.71 Random Glucose 102 Calcium 8.5 Total Bilirubin 0.3 AST 21 ALT 16 Alkaline Phosphatase 49 Total Protein 6.7 Albumin 3.1 L Problem List - Problems (1) Afib Code(s): I48.91 - UNSPECIFIED ATRIAL FIBRILLATION (2) Aortic aneurysm Code(s): I71.9 - AORTIC ANEURYSM OF UNSPECIFIED SITE, WITHOUT RUPTURE (3) CAD (coronary artery disease) Code(s): I25.10 - ATHSCL HEART DISEASE OF [place] CORONARY ARTERY W/O ANG PCTRS (4) COPD exacerbation Code(s): J44.1 - CHRONIC OBSTRUCTIVE PULMONARY DISEASE W (ACUTE) EXACERBATION (5) Hyperlipidemia Code(s): E78.5 - HYPERLIPIDEMIA, UNSPECIFIED (6) Hypertension Code(s): I10 - ESSENTIAL (PRIMARY) HYPERTENSION (7) Status post fall Code(s): Z91.89 - OTH PERSONAL RISK FACTORS, NOT ELSEWHERE CLASSIFIED (8) Acute exacerbation of chronic bronchitis Code(s): J20.9 - ACUTE BRONCHITIS, UNSPECIFIED J42 - UNSPECIFIED CHRONIC BRONCHITIS (9) BPH (benign prostatic hypertrophy) Code(s): N40.0 - BENIGN PROSTATIC HYPERPLASIA WITHOUT LOWER URINRY TRACT SYMP (10) Congestive heart failure (CHF) Code(s): I50.9 - HEART FAILURE, UNSPECIFIED (11) Focal motor deficit Code(s): R29.898 - OTH SYMPTOMS AND SIGNS INVOLVING THE MUSCULOSKELETAL SYSTEM (12) History of endovascular stent graft for abdominal aortic aneurysm Code(s): Z95.828 - PRESENCE OF OTHER VASCULAR IMPLANTS AND GRAFTS (13) History of permanent cardiac pacemaker placement Code(s): Z95.0 - PRESENCE OF CARDIAC PACEMAKER (14) Paroxysmal atrial fibrillation Code(s): I48.0 - PAROXYSMAL ATRIAL FIBRILLATION (15) Presence of cardiac pacemaker Code(s): Z95.0 - PRESENCE OF CARDIAC PACEMAKER (16) Shortness of breath Code(s): R06.02 - SHORTNESS OF BREATH (17) Stented coronary artery Code(s): Z95.5 - PRESENCE OF CORONARY ANGIOPLASTY IMPLANT AND GRAFT (18) Thoracic aortic aneurysm Code(s): I71.2 - THORACIC AORTIC ANEURYSM, WITHOUT RUPTURE Assessment/Plan Medrol taper BD TX O2 as needed ABX for cellulitis No smoking Outpatient PFTs Check O2 saturation If stable/improved -> may be able to change to Prednisone tomorrow and D/C Dr Alberto Problem List - Problems (1) Afib Code(s): I48.91 - UNSPECIFIED ATRIAL FIBRILLATION (2) Aortic aneurysm Code(s): I71.9 - AORTIC ANEURYSM OF UNSPECIFIED SITE, WITHOUT RUPTURE (3) CAD (coronary artery disease) Code(s): I25.10 - ATHSCL HEART DISEASE OF [place] CORONARY ARTERY W/O ANG PCTRS (4) COPD exacerbation Code(s): J44.1 - CHRONIC OBSTRUCTIVE PULMONARY DISEASE W (ACUTE) EXACERBATION (5) Hyperlipidemia Code(s): E78.5 - HYPERLIPIDEMIA, UNSPECIFIED (6) Hypertension Code(s): I10 - ESSENTIAL (PRIMARY) HYPERTENSION (7) Status post fall Code(s): Z91.89 - OTH PERSONAL RISK FACTORS, NOT ELSEWHERE CLASSIFIED (8) Acute exacerbation of chronic bronchitis Code(s): J20.9 - ACUTE BRONCHITIS, UNSPECIFIED J42 - UNSPECIFIED CHRONIC BRONCHITIS (9) BPH (benign prostatic hypertrophy) Code(s): N40.0 - BENIGN PROSTATIC HYPERPLASIA WITHOUT LOWER URINRY TRACT SYMP (10) Congestive heart failure (CHF) Code(s): I50.9 - HEART FAILURE, UNSPECIFIED (11) Focal motor deficit Code(s): R29.898 - OT SYMPTOMS AND SIGNS INVOLVING THE MUSCULOSKELETAL SYSTEM (12) History of endovascular stent graft for abdominal aortic aneurysm Code(s): Z95.828 - PRESENCE OF OTHER VASCULAR IMPLANTS AND GRAFTS (13) History of permanent cardiac pacemaker placement Code(s): Z95.0 - PRESENCE OF CARDIAC PACEMAKER (14) Paroxysmal atrial fibrillation Code(s): I48.0 - PAROXYSMAL ATRIAL FIBRILLATION (15) Presence of cardiac pacemaker Code(s): Z95.0 - PRESENCE OF CARDIAC PACEMAKER (16) Shortness of breath Code(s): R06.02 - SHORTNESS OF BREATH (17) Stented coronary artery Code(s): Z95.5 - PRESENCE OF CORONARY ANGIOPLASTY IMPLANT AND GRAFT (18) Thoracic aortic aneurysm Code(s): I71.2 - THORACIC AORTIC ANEURYSM, WITHOUT RUPTURE
[2016-04-26] MEDS ORDERED: PT OWN MED DRAWER 7, Y5N ONE (10:06)
[2016-04-26] MEDS: DULoxetine HCL 30 MG CAPSULE.DR (FP) PO SCH (10:10)
[2016-04-26] MEDS: LISINOPRIL 10 MG TABLET (FP) PO SCH (10:10)
[2016-04-26] MEDS: FUROSEMIDE 20 MG TABLET (FP) PO SCH (10:10)
[2016-04-26] MEDS: amLODIPine BESYLATE 5 MG TABLET (FP) PO SCH (10:10)
[2016-04-26] MEDS: FERROUS SO4 325 MG TABLET (FP) PO SCH (10:10)
[2016-04-26] MEDS: RIVAROXABAN 20 MG TABLET PO SCH (10:10)
[2016-04-26] MEDS: TAMSULOSIN HCL 0.4 MG CAP.ER.24H (FP) PO SCH (10:10)
[2016-04-26] MEDS: BUDESONIDE/FORMETEROL FUMARATE 160/4.5 mcg INHALER IH SCH ×2 (10:10→22:16)
[2016-04-26] MEDS: PREGABALIN 50 MG CAPSULE PO SCH ×2 (10:11→22:16)
[2016-04-26] MEDS: METOPROLOL SUCCINATE 50 MG TAB.SR.24H (FP) PO SCH (10:11)
[2016-04-26] MEDS: TRIAMCINOLONE ACET 0.5% CREAM 15 GM TUBE TP SCH ×2 (10:11→22:17)
--- NOTE | 2016-04-26 11:01 | PN ---
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, Physician History of Present Illness: seen and examined today in nad. states he is feeling slightly better. today. at bedside states he is doing slightly better but still not back to baseline. - Current Medication List Current Medications: Active Medications Acetaminophen (Tylenol -) 650 mg PO Q4H PRN PRN Reason: FEVER OR PAIN Albuterol Sulfate (Ventolin 0.083% Nebulizer Soln -) 1 amp NEB Q6HPO [facility] Last Admin: 04/26/16 06:57 Dose: 1 amp Amlodipine Besylate (Norvasc -) 5 mg PO DAILY [facility] Last Admin: 04/26/16 10:10 Dose: 5 mg Budesonide/Formoterol Fumarate (Symbicort 160/4.5mcg -) 2 puff IH BID [facility] Last Admin: 04/26/16 10:10 Dose: 2 puff Duloxetine HCl (Cymbalta -) 30 mg PO DAILY [facility] Last Admin: 04/26/16 10:10 Dose: 30 mg Ferrous Sulfate (Feosol -) 325 mg PO DAILY [facility] Last Admin: 04/26/16 10:10 Dose: 325 mg Furosemide (Lasix -) 20 mg PO DAILY [facility] Last Admin: 04/26/16 10:10 Dose: 20 mg Guaifenesin (Robitussin -) 10 ml PO Q4H PRN PRN Reason: COUGH Last Admin: 04/25/16 22:18 Dose: 10 ml Lisinopril (Prinivil) 10 mg PO DAILY [facility] Last Admin: 04/26/16 10:10 Dose: 10 mg Methylprednisolone Sodium Succinate (Solu-Medrol -) 40 mg IVPB Q8H-IV [facility] Last Admin: 04/26/16 10:10 Dose: 40 mg Metoprolol Succinate (Toprol Xl -) 50 mg PO DAILY [facility] Last Admin: 04/26/16 10:11 Dose: 50 mg Pregabalin (Lyrica -) 100 mg PO BID [facility] Last Admin: 04/26/16 10:11 Dose: 100 mg Rivaroxaban (Xarelto -) 20 mg PO DAILY [facility] Last Admin: 04/26/16 10:10 Dose: 20 mg Sodium Chloride (Normal Saline -) 500 ml IV Q20M PRN PRN Reason: MAP<65mm Hg OR SBP <90 Tamsulosin HCl (Flomax -) 0.4 mg PO DAILY [facility] Last Admin: 04/26/16 10:10 Dose: 0.4 mg Triamcinolone Acetonide (Aristocort 0.5% Cream -) 1 applic TP BID [facility] Last Admin: 04/26/16 10:11 Dose: 1 applic Zolpidem Tartrate (Ambien -) 5 mg PO HS PRN - Objective Vital Signs: Vital Signs Temperature 98.5 F 04/26/16 09:05 Pulse Rate 83 04/26/16 10:36 Respiratory Rate 18 04/26/16 09:05 Blood Pressure 152/78 04/26/16 09:05 O2 Sat by Pulse Oximetry (%) 96 04/26/16 10:36 Constitutional: Yes: Well Nourished, No Distress, Calm Eyes: Yes: WNL, Conjunctiva Clear, EOM Intact, PERRL HENT: Yes: WNL, Atraumatic, Normocephalic Neck: Yes: WNL, Supple, Trachea Midline Cardiovascular: Yes: Pulse Irregular, S1, S2. No: Bradycardia, Tachycardia, Bruit, JVD, Gallop, Murmur, Rub, S3, S4, Varicosities Respiratory: Yes: Regular, Wheezes. No: Rales, Rhonchi Gastrointestinal: Yes: WNL, Normal Bowel Sounds, Soft. No: Distention, Tenderness Musculoskeletal: Yes: WNL Extremities: Yes: WNL Edema: No Peripheral Pulses WNL: Yes Peripheral Pulses: Left Doralis Pedis: 2+, Right Dorsalis Pedis: 2+ Integumentary: Yes: WNL Neurological: Yes: Alert. No: Oriented Psychiatric: Yes: Alert. No: Oriented Labs: CBC, BMP 04/23/16 07:00 04/25/16 06:15 INR, PTT INR 1.24 (0.82-1.09) H 04/22/16 12:26 - ....Imaging Chest X-ray: Report Reviewed, Image Reviewed EKG: Report Reviewed, Image Reviewed Other: Report Reviewed, Image Reviewed Problem List - Problems (1) Afib Code(s): I48.91 - UNSPECIFIED ATRIAL FIBRILLATION (2) Aortic aneurysm Code(s): I71.9 - AORTIC ANEURYSM OF UNSPECIFIED SITE, WITHOUT RUPTURE (3) CAD (coronary artery disease) Code(s): I25.10 - ATHSCL HEART DISEASE OF [place] CORONARY ARTERY W/O ANG PCTRS (4) COPD exacerbation Code(s): J44.1 - CHRONIC OBSTRUCTIVE PULMONARY DISEASE W (ACUTE) EXACERBATION (5) Hyperlipidemia Code(s): E78.5 - HYPERLIPIDEMIA, UNSPECIFIED (6) Hypertension Code(s): I10 - ESSENTIAL (PRIMARY) HYPERTENSION (7) History of permanent cardiac pacemaker placement Code(s): Z95.0 - PRESENCE OF CARDIAC PACEMAKER (8) Peripheral artery disease Code(s): I73.9 - PERIPHERAL VASCULAR DISEASE, UNSPECIFIED (9) Presence of cardiac pacemaker Code(s): Z95.0 - PRESENCE OF CARDIAC PACEMAKER (10) Shortness of breath Code(s): R06.02 - SHORTNESS OF BREATH (11) Stented coronary artery Code(s): Z95.5 - PRESENCE OF CORONARY ANGIOPLASTY IMPLANT AND GRAFT (12) Hx of CABG Code(s): Z95.1 - PRESENCE OF AORTOCORONARY BYPASS GRAFT (13) Chronic combined systolic and diastolic CHF (congestive heart failure) Code(s): I50.42 - CHRONIC COMBINED SYSTOLIC AND DIASTOLIC HRT FAIL Assessment/Plan 75 year old man with a history of HTN, HLD, Afib, CAD s/p CABG s/p stents, PPM, ICM refused ICD in the past, PAD, Thoracic aortic aneursym, CVA with residual L sided weakness, COPD admitted with worsening sob, fever, cough for the past several days. SOB/nasal congestion/subjective fevers/cough -URI with AE COPD -euvolemic, cont current lasix dose -cont tx as per Pulm reccs -no additional inpatient cardiac work up needed at this point CAD-h/o CABG and PCI with stents, h/o ischemic cardiomyopathy -stable -cont current home medical regimen -most recent echo showed grossly normal LV systolic function HTN-adequately controlled, isolated reading above sbp 150 today but otherwise has been adequate throughout admission -cont current medical regimen Thoracic aortic aneurysm -stable, has been monitored as outpatient and evaluated/followed by Vascular surgery -cont bblocker -outpatient follow up- has been deemed a very high risk candidate for intervention. PPM-Mauricio sci -normal functioning on ekg, followed as outpatient, last checked 10/2015 normal functioning, planned for check 06/2016 -h/o PAF, continue AC
[2016-04-26] MEDS: guaiFENesin 200 MG/10 ML 10 ML UNIT-DOSE CUPS PO PRN (22:20)
--- NOTE | 2016-04-26 22:50 | PN ---
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, Physician History of Present Illness: No new complaints - Current Medication List Current Medications: Active Medications Acetaminophen (Tylenol -) 650 mg PO Q4H PRN PRN Reason: FEVER OR PAIN Albuterol Sulfate (Ventolin 0.083% Nebulizer Soln -) 1 amp NEB Q6HPO [facility] Last Admin: 04/26/16 17:43 Dose: 1 amp Amlodipine Besylate (Norvasc -) 5 mg PO DAILY [facility] Last Admin: 04/26/16 10:10 Dose: 5 mg Budesonide/Formoterol Fumarate (Symbicort 160/4.5mcg -) 2 puff IH BID [facility] Last Admin: 04/26/16 22:16 Dose: 2 puff Duloxetine HCl (Cymbalta -) 30 mg PO DAILY [facility] Last Admin: 04/26/16 10:10 Dose: 30 mg Ferrous Sulfate (Feosol -) 325 mg PO DAILY [facility] Last Admin: 04/26/16 10:10 Dose: 325 mg Furosemide (Lasix -) 20 mg PO DAILY [facility] Last Admin: 04/26/16 10:10 Dose: 20 mg Guaifenesin (Robitussin -) 10 ml PO Q4H PRN PRN Reason: COUGH Last Admin: 04/26/16 22:20 Dose: 10 ml Lisinopril (Prinivil) 10 mg PO DAILY [facility] Last Admin: 04/26/16 10:10 Dose: 10 mg Methylprednisolone Sodium Succinate (Solu-Medrol -) 40 mg IVPB Q8H-IV [facility] Last Admin: 04/26/16 18:08 Dose: 40 mg Metoprolol Succinate (Toprol Xl -) 50 mg PO DAILY [facility] Last Admin: 04/26/16 10:11 Dose: 50 mg Pregabalin (Lyrica -) 100 mg PO BID [facility] Last Admin: 04/26/16 22:16 Dose: 100 mg Rivaroxaban (Xarelto -) 20 mg PO DAILY [facility] Last Admin: 04/26/16 10:10 Dose: 20 mg Sodium Chloride (Normal Saline -) 500 ml IV Q20M PRN PRN Reason: MAP<65mm Hg OR SBP <90 Tamsulosin HCl (Flomax -) 0.4 mg PO DAILY [facility] Last Admin: 04/26/16 10:10 Dose: 0.4 mg Triamcinolone Acetonide (Aristocort 0.5% Cream -) 1 applic TP BID [facility] Last Admin: 04/26/16 22:17 Dose: 1 applic Zolpidem Tartrate (Ambien -) 5 mg PO HS PRN - Objective Vital Signs: Vital Signs Temperature 98 F 04/26/16 17:12 Pulse Rate 77 04/26/16 17:12 Respiratory Rate 20 04/26/16 17:12 Blood Pressure 119/70 04/26/16 17:12 O2 Sat by Pulse Oximetry (%) 90 L 04/26/16 11:15 Cardiovascular: Yes: WNL, Regular Rate and Rhythm Respiratory: Yes: WNL, Regular, CTA Bilaterally Gastrointestinal: Yes: WNL, Normal Bowel Sounds, Soft Labs: CBC, BMP 04/23/16 07:00 04/25/16 06:15 INR, PTT INR 1.24 (0.82-1.09) H 04/22/16 12:26 Problem List - Problems (1) COPD exacerbation Code(s): J44.1 - CHRONIC OBSTRUCTIVE PULMONARY DISEASE W (ACUTE) EXACERBATION (2) Cellulitis of left lower leg Code(s): L03.116 - CELLULITIS OF LEFT LOWER LIMB (3) Chronic combined systolic and diastolic CHF (congestive heart failure) Code(s): I50.42 - CHRONIC COMBINED SYSTOLIC AND DIASTOLIC HRT FAIL (4) Paroxysmal atrial fibrillation Code(s): I48.0 - PAROXYSMAL ATRIAL FIBRILLATION (5) Thoracic aortic aneurysm Code(s): I71.2 - THORACIC AORTIC ANEURYSM, WITHOUT RUPTURE
[2016-04-27] MEDS: ALBUTEROL SO4 0.083% IH SOL 2.5 MG/3 ML VIAL.NEB. NEB SCH ×4 (00:01→17:10)
[2016-04-27] MEDS: methylPREDNISolone NA SUCC 40 MG/1 ML VIAL IVPB SCH ×2 (01:26→10:14)
--- NOTE | 2016-04-27 09:41 | PN ---
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, Physician History of Present Illness: seen and examined today in nad. states his sob is improved today. no overnight events. no new complaints. - Current Medication List Current Medications: Active Medications Acetaminophen (Tylenol -) 650 mg PO Q4H PRN PRN Reason: FEVER OR PAIN Albuterol Sulfate (Ventolin 0.083% Nebulizer Soln -) 1 amp NEB Q6HPO [facility] Last Admin: 04/27/16 06:46 Dose: 1 amp Amlodipine Besylate (Norvasc -) 5 mg PO DAILY [facility] Last Admin: 04/26/16 10:10 Dose: 5 mg Budesonide/Formoterol Fumarate (Symbicort 160/4.5mcg -) 2 puff IH BID [facility] Last Admin: 04/26/16 22:16 Dose: 2 puff Duloxetine HCl (Cymbalta -) 30 mg PO DAILY [facility] Last Admin: 04/26/16 10:10 Dose: 30 mg Ferrous Sulfate (Feosol -) 325 mg PO DAILY [facility] Last Admin: 04/26/16 10:10 Dose: 325 mg Furosemide (Lasix -) 20 mg PO DAILY [facility] Last Admin: 04/26/16 10:10 Dose: 20 mg Guaifenesin (Robitussin -) 10 ml PO Q4H PRN PRN Reason: COUGH Last Admin: 04/26/16 22:20 Dose: 10 ml Lisinopril (Prinivil) 10 mg PO DAILY [facility] Last Admin: 04/26/16 10:10 Dose: 10 mg Methylprednisolone Sodium Succinate (Solu-Medrol -) 40 mg IVPB Q8H-IV [facility] Last Admin: 04/27/16 01:26 Dose: 40 mg Metoprolol Succinate (Toprol Xl -) 50 mg PO DAILY [facility] Last Admin: 04/26/16 10:11 Dose: 50 mg Pregabalin (Lyrica -) 100 mg PO BID [facility] Last Admin: 04/26/16 22:16 Dose: 100 mg Rivaroxaban (Xarelto -) 20 mg PO DAILY [facility] Last Admin: 04/26/16 10:10 Dose: 20 mg Sodium Chloride (Normal Saline -) 500 ml IV Q20M PRN PRN Reason: MAP<65mm Hg OR SBP <90 Tamsulosin HCl (Flomax -) 0.4 mg PO DAILY [facility] Last Admin: 04/26/16 10:10 Dose: 0.4 mg Triamcinolone Acetonide (Aristocort 0.5% Cream -) 1 applic TP BID [facility] Last Admin: 04/26/16 22:17 Dose: 1 applic Zolpidem Tartrate (Ambien -) 5 mg PO HS PRN - Objective Vital Signs: Vital Signs Temperature 97.8 F 04/27/16 06:00 Pulse Rate 64 04/27/16 06:00 Respiratory Rate 20 04/27/16 06:00 Blood Pressure 135/86 04/27/16 06:00 O2 Sat by Pulse Oximetry (%) 90 L 04/26/16 21:00 Constitutional: Yes: Well Nourished, No Distress, Calm Eyes: Yes: WNL, Conjunctiva Clear, EOM Intact, PERRL HENT: Yes: WNL, Atraumatic, Normocephalic Neck: Yes: WNL, Supple, Trachea Midline Cardiovascular: Yes: Pulse Irregular, S1, S2. No: Regular Rate and Rhythm, Bradycardia, Tachycardia, Bruit, JVD, Gallop, Murmur, Rub, S3, S4, Varicosities Respiratory: Yes: Regular, Diminished, On Nasal O2, Wheezes. No: Rales, Rhonchi , SOB Gastrointestinal: Yes: WNL, Normal Bowel Sounds, Soft. No: Distention, Tenderness Musculoskeletal: Yes: WNL Extremities: Yes: WNL Edema: No Peripheral Pulses WNL: Yes Peripheral Pulses: Left Doralis Pedis: 2+, Right Dorsalis Pedis: 2+ Integumentary: Yes: WNL Neurological: Yes: Alert. No: Oriented Psychiatric: Yes: Alert. No: Oriented Labs: CBC, BMP 04/23/16 07:00 04/25/16 06:15 INR, PTT INR 1.24 (0.82-1.09) H 04/22/16 12:26 - ....Imaging Chest X-ray: Report Reviewed, Image Reviewed EKG: Report Reviewed, Image Reviewed Other: Report Reviewed, Image Reviewed Problem List - Problems (1) Afib Code(s): I48.91 - UNSPECIFIED ATRIAL FIBRILLATION (2) Aortic aneurysm Code(s): I71.9 - AORTIC ANEURYSM OF UNSPECIFIED SITE, WITHOUT RUPTURE (3) CAD (coronary artery disease) Code(s): I25.10 - ATHSCL HEART DISEASE OF [place] CORONARY ARTERY W/O ANG PCTRS (4) COPD exacerbation Code(s): J44.1 - CHRONIC OBSTRUCTIVE PULMONARY DISEASE W (ACUTE) EXACERBATION (5) Hyperlipidemia Code(s): E78.5 - HYPERLIPIDEMIA, UNSPECIFIED (6) Hypertension Code(s): I10 - ESSENTIAL (PRIMARY) HYPERTENSION (7) History of permanent cardiac pacemaker placement Code(s): Z95.0 - PRESENCE OF CARDIAC PACEMAKER (8) Peripheral artery disease Code(s): I73.9 - PERIPHERAL VASCULAR DISEASE, UNSPECIFIED (9) Presence of cardiac pacemaker Code(s): Z95.0 - PRESENCE OF CARDIAC PACEMAKER (10) Shortness of breath Code(s): R06.02 - SHORTNESS OF BREATH (11) Stented coronary artery Code(s): Z95.5 - PRESENCE OF CORONARY ANGIOPLASTY IMPLANT AND GRAFT (12) Hx of CABG Code(s): Z95.1 - PRESENCE OF AORTOCORONARY BYPASS GRAFT (13) Chronic combined systolic and diastolic CHF (congestive heart failure) Code(s): I50.42 - CHRONIC COMBINED SYSTOLIC AND DIASTOLIC HRT FAIL Assessment/Plan 75 year old man with a history of HTN, HLD, Afib, CAD s/p CABG s/p stents, PPM, ICM refused ICD in the past, PAD, Thoracic aortic aneursym, CVA with residual L sided weakness, COPD admitted with worsening sob, fever, cough for the past several days. SOB/nasal congestion/subjective fevers/cough -URI with AE COPD -overall euvolemic -cont current lasix dose on discharge -cont tx as per Pulm reccs -no additional inpatient cardiac work up needed at this point CAD-h/o CABG and PCI with stents, h/o ischemic cardiomyopathy -stable -cont current home medical regimen -most recent echo showed grossly normal LV systolic function HTN-adequately controlled -cont current medical regimen Thoracic aortic aneurysm -stable, has been monitored as outpatient and evaluated/followed by Vascular surgery -cont bblocker -outpatient follow up- has been deemed a very high risk candidate for intervention. PPM-Mauricio sci -normal functioning on ekg, followed as outpatient, last checked 10/2015 normal functioning, planned for check 06/2016 -h/o PAF, continue AC
[2016-04-27] MEDS ORDERED: PT OWN MED DRAWER 7, Y5N ONE (10:12)
[2016-04-27] MEDS: METOPROLOL SUCCINATE 50 MG TAB.SR.24H (FP) PO SCH (10:14)
[2016-04-27] MEDS: DULoxetine HCL 30 MG CAPSULE.DR (FP) PO SCH (10:14)
[2016-04-27] MEDS: PREGABALIN 50 MG CAPSULE PO SCH ×2 (10:14→21:47)
[2016-04-27] MEDS: LISINOPRIL 10 MG TABLET (FP) PO SCH (10:14)
[2016-04-27] MEDS: TAMSULOSIN HCL 0.4 MG CAP.ER.24H (FP) PO SCH (10:14)
[2016-04-27] MEDS: FERROUS SO4 325 MG TABLET (FP) PO SCH (10:14)
[2016-04-27] MEDS: RIVAROXABAN 20 MG TABLET PO SCH (10:14)
[2016-04-27] MEDS: amLODIPine BESYLATE 5 MG TABLET (FP) PO SCH (10:14)
[2016-04-27] MEDS: TRIAMCINOLONE ACET 0.5% CREAM 15 GM TUBE TP SCH ×2 (10:15→21:47)
[2016-04-27] MEDS: FUROSEMIDE 20 MG TABLET (FP) PO SCH (10:15)
[2016-04-27] MEDS: BUDESONIDE/FORMETEROL FUMARATE 160/4.5 mcg INHALER IH SCH ×2 (10:15→21:47)
--- NOTE | 2016-04-27 15:42 | PN ---
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 (short form) - Note 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: Still with some congested cough, but breathing feels a little better today. No CP. Intake & Output 04/24/16 04/25/16 04/26/16 04/27/16 23:59 23:59 23:59 23:59 Intake Total 600 1550 50 550 Output Total 270 Balance 600 1550 -220 550 Weight 156 lb Last Vital Signs Temp Pulse Resp BP Pulse Ox 98.3 F 82 19 133/94 93 L 04/27/16 15:31 04/27/16 15:31 04/27/16 15:31 04/27/16 15:31 04/27/16 12:10 Active Medications Acetaminophen (Tylenol -) 650 mg PO Q4H PRN PRN Reason: FEVER OR PAIN Albuterol Sulfate (Ventolin 0.083% Nebulizer Soln -) 1 amp NEB Q6HPO [facility] Last Admin: 04/27/16 11:05 Dose: 1 amp Amlodipine Besylate (Norvasc -) 5 mg PO DAILY [facility] Last Admin: 04/27/16 10:14 Dose: 5 mg Budesonide/Formoterol Fumarate (Symbicort 160/4.5mcg -) 2 puff IH BID [facility] Last Admin: 04/27/16 10:15 Dose: 2 puff Duloxetine HCl (Cymbalta -) 30 mg PO DAILY [facility] Last Admin: 04/27/16 10:14 Dose: 30 mg Ferrous Sulfate (Feosol -) 325 mg PO DAILY [facility] Last Admin: 04/27/16 10:14 Dose: 325 mg Furosemide (Lasix -) 20 mg PO DAILY [facility] Last Admin: 04/27/16 10:15 Dose: 20 mg Guaifenesin (Robitussin -) 10 ml PO Q4H PRN PRN Reason: COUGH Last Admin: 04/26/16 22:20 Dose: 10 ml Lisinopril (Prinivil) 10 mg PO DAILY [facility] Last Admin: 04/27/16 10:14 Dose: 10 mg Methylprednisolone Sodium Succinate (Solu-Medrol -) 40 mg IVPB Q8H-IV [facility] Last Admin: 04/27/16 10:14 Dose: 40 mg Metoprolol Succinate (Toprol Xl -) 50 mg PO DAILY [facility] Last Admin: 04/27/16 10:14 Dose: 50 mg Pregabalin (Lyrica -) 100 mg PO BID [facility] Last Admin: 04/27/16 10:14 Dose: 100 mg Rivaroxaban (Xarelto -) 20 mg PO DAILY [facility] Last Admin: 04/27/16 10:14 Dose: 20 mg Sodium Chloride (Normal Saline -) 500 ml IV Q20M PRN PRN Reason: MAP<65mm Hg OR SBP <90 Tamsulosin HCl (Flomax -) 0.4 mg PO DAILY [facility] Last Admin: 04/27/16 10:14 Dose: 0.4 mg Triamcinolone Acetonide (Aristocort 0.5% Cream -) 1 applic TP BID [facility] Last Admin: 04/27/16 10:15 Dose: 1 applic Constitutional: Yes: No Distress Eyes: Yes: Conjunctiva Clear, EOM Intact HENT: Yes: Atraumatic, Normocephalic Neck: Yes: Supple, Trachea Midline Cardiovascular: Yes: Pulse Irregular Respiratory: Yes: Congested Cough, On Nasal O2, Rhonchi, No: Wheeze heard today , Accessory Muscle Use, Stridor ...Inspection: Yes: WNL ...Clubbing: No Gastrointestinal: Yes: Normal Bowel Sounds, Soft Renal/: Yes: WNL Musculoskeletal: Yes: WNL Extremities: Yes: WNL Edema: No Peripheral Pulses WNL: Yes Integumentary: Yes: WNL Neurological: Yes: Alert, Oriented, Pre-Existing Deficit Psychiatric: Yes: Alert, Oriented Labs: Problem List - Problems (1) Afib Code(s): I48.91 - UNSPECIFIED ATRIAL FIBRILLATION (2) Aortic aneurysm Code(s): I71.9 - AORTIC ANEURYSM OF UNSPECIFIED SITE, WITHOUT RUPTURE (3) CAD (coronary artery disease) Code(s): I25.10 - ATHSCL HEART DISEASE OF [place] CORONARY ARTERY W/O ANG PCTRS (4) COPD exacerbation Code(s): J44.1 - CHRONIC OBSTRUCTIVE PULMONARY DISEASE W (ACUTE) EXACERBATION (5) Hyperlipidemia Code(s): E78.5 - HYPERLIPIDEMIA, UNSPECIFIED (6) Hypertension Code(s): I10 - ESSENTIAL (PRIMARY) HYPERTENSION (7) Status post fall Code(s): Z91.89 - OTH PERSONAL RISK FACTORS, NOT ELSEWHERE CLASSIFIED (8) Acute exacerbation of chronic bronchitis Code(s): J20.9 - ACUTE BRONCHITIS, UNSPECIFIED J42 - UNSPECIFIED CHRONIC BRONCHITIS (9) BPH (benign prostatic hypertrophy) Code(s): N40.0 - BENIGN PROSTATIC HYPERPLASIA WITHOUT LOWER URINRY TRACT SYMP (10) Congestive heart failure (CHF) Code(s): I50.9 - HEART FAILURE, UNSPECIFIED (11) Focal motor deficit Code(s): R29.898 - OTH SYMPTOMS AND SIGNS INVOLVING THE MUSCULOSKELETAL SYSTEM (12) History of endovascular stent graft for abdominal aortic aneurysm Code(s): Z95.828 - PRESENCE OF OTHER VASCULAR IMPLANTS AND GRAFTS (13) History of permanent cardiac pacemaker placement Code(s): Z95.0 - PRESENCE OF CARDIAC PACEMAKER (14) Paroxysmal atrial fibrillation Code(s): I48.0 - PAROXYSMAL ATRIAL FIBRILLATION (15) Presence of cardiac pacemaker Code(s): Z95.0 - PRESENCE OF CARDIAC PACEMAKER (16) Shortness of breath Code(s): R06.02 - SHORTNESS OF BREATH (17) Stented coronary artery Code(s): Z95.5 - PRESENCE OF CORONARY ANGIOPLASTY IMPLANT AND GRAFT (18) Thoracic aortic aneurysm Code(s): I71.2 - THORACIC AORTIC ANEURYSM, WITHOUT RUPTURE Assessment/Plan Change to Prednisone BD TX O2 at 3 L NC (patient on 3 L at home) ABX for cellulitis No smoking Outpatient PFTs Check O2 saturation No Pulmonary contraindication for D/C Dr Alberto Problem List - Problems (1) Afib Code(s): I48.91 - UNSPECIFIED ATRIAL FIBRILLATION (2) Aortic aneurysm Code(s): I71.9 - AORTIC ANEURYSM OF UNSPECIFIED SITE, WITHOUT RUPTURE (3) CAD (coronary artery disease) Code(s): I25.10 - ATHSCL HEART DISEASE OF [place] CORONARY ARTERY W/O ANG PCTRS (4) COPD exacerbation Code(s): J44.1 - CHRONIC OBSTRUCTIVE PULMONARY DISEASE W (ACUTE) EXACERBATION (5) Hyperlipidemia Code(s): E78.5 - HYPERLIPIDEMIA, UNSPECIFIED (6) Hypertension Code(s): I10 - ESSENTIAL (PRIMARY) HYPERTENSION (7) Status post fall Code(s): Z91.89 - OTH PERSONAL RISK FACTORS, NOT ELSEWHERE CLASSIFIED (8) Acute exacerbation of chronic bronchitis Code(s): J20.9 - ACUTE BRONCHITIS, UNSPECIFIED J42 - UNSPECIFIED CHRONIC BRONCHITIS (9) BPH (benign prostatic hypertrophy) Code(s): N40.0 - BENIGN PROSTATIC HYPERPLASIA WITHOUT LOWER URINRY TRACT SYMP (10) Congestive heart failure (CHF) Code(s): I50.9 - HEART FAILURE, UNSPECIFIED (11) Focal motor deficit Code(s): R29.898 - OTH SYMPTOMS AND SIGNS INVOLVING THE MUSCULOSKELETAL SYSTEM (12) History of endovascular stent graft for abdominal aortic aneurysm Code(s): Z95.828 - PRESENCE OF OTHER VASCULAR IMPLANTS AND GRAFTS (13) History of permanent cardiac pacemaker placement Code(s): Z95.0 - PRESENCE OF CARDIAC PACEMAKER (14) Paroxysmal atrial fibrillation Code(s): I48.0 - PAROXYSMAL ATRIAL FIBRILLATION (15) Presence of cardiac pacemaker Code(s): Z95.0 - PRESENCE OF CARDIAC PACEMAKER (16) Shortness of breath Code(s): R06.02 - SHORTNESS OF BREATH (17) Stented coronary artery Code(s): Z95.5 - PRESENCE OF CORONARY ANGIOPLASTY IMPLANT AND GRAFT (18) Thoracic aortic aneurysm Code(s): I71.2 - THORACIC AORTIC ANEURYSM, WITHOUT RUPTURE
[2016-04-27] MEDS: predniSONE 20 MG TABLET (UD) PO SCH (18:06)
--- NOTE | 2016-04-27 22:48 | PN ---
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, Physician History of Present Illness: No new complaints - Current Medication List Current Medications: Active Medications Acetaminophen (Tylenol -) 650 mg PO Q4H PRN PRN Reason: FEVER OR PAIN Amlodipine Besylate (Norvasc -) 5 mg PO DAILY [facility] Last Admin: 04/27/16 10:14 Dose: 5 mg Budesonide/Formoterol Fumarate (Symbicort 160/4.5mcg -) 2 puff IH BID [facility] Last Admin: 04/27/16 21:47 Dose: 2 puff Duloxetine HCl (Cymbalta -) 30 mg PO DAILY [facility] Last Admin: 04/27/16 10:14 Dose: 30 mg Ferrous Sulfate (Feosol -) 325 mg PO DAILY [facility] Last Admin: 04/27/16 10:14 Dose: 325 mg Furosemide (Lasix -) 20 mg PO DAILY [facility] Last Admin: 04/27/16 10:15 Dose: 20 mg Guaifenesin (Robitussin -) 10 ml PO Q4H PRN PRN Reason: COUGH Last Admin: 04/26/16 22:20 Dose: 10 ml Lisinopril (Prinivil) 10 mg PO DAILY [facility] Last Admin: 04/27/16 10:14 Dose: 10 mg Metoprolol Succinate (Toprol Xl -) 50 mg PO DAILY [facility] Last Admin: 04/27/16 10:14 Dose: 50 mg Prednisone (Deltasone -) 40 mg PO DAILY [facility] Last Admin: 04/27/16 18:06 Dose: 40 mg Pregabalin (Lyrica -) 100 mg PO BID [facility] Last Admin: 04/27/16 21:47 Dose: 100 mg Rivaroxaban (Xarelto -) 20 mg PO DAILY [facility] Last Admin: 04/27/16 10:14 Dose: 20 mg Sodium Chloride (Normal Saline -) 500 ml IV Q20M PRN PRN Reason: MAP<65mm Hg OR SBP <90 Tamsulosin HCl (Flomax -) 0.4 mg PO DAILY [facility] Last Admin: 04/27/16 10:14 Dose: 0.4 mg Triamcinolone Acetonide (Aristocort 0.5% Cream -) 1 applic TP BID [facility] Last Admin: 04/27/16 21:47 Dose: 1 applic - Objective Vital Signs: Vital Signs Temperature 98.3 F 04/27/16 17:39 Pulse Rate 66 04/27/16 17:39 Respiratory Rate 18 04/27/16 17:39 Blood Pressure 148/81 04/27/16 17:39 O2 Sat by Pulse Oximetry (%) 93 L 04/27/16 12:10 Cardiovascular: Yes: WNL, Regular Rate and Rhythm Respiratory: Yes: WNL, Regular, CTA Bilaterally Gastrointestinal: Yes: WNL, Normal Bowel Sounds, Soft Labs: CBC, BMP 04/23/16 07:00 04/25/16 06:15 INR, PTT INR 1.24 (0.82-1.09) H 04/22/16 12:26 Problem List - Problems (1) COPD exacerbation Code(s): J44.1 - CHRONIC OBSTRUCTIVE PULMONARY DISEASE W (ACUTE) EXACERBATION (2) Cellulitis of left lower leg Code(s): L03.116 - CELLULITIS OF LEFT LOWER LIMB (3) Chronic combined systolic and diastolic CHF (congestive heart failure) Code(s): I50.42 - CHRONIC COMBINED SYSTOLIC AND DIASTOLIC HRT FAIL (4) Paroxysmal atrial fibrillation Code(s): I48.0 - PAROXYSMAL ATRIAL FIBRILLATION (5) Thoracic aortic aneurysm Code(s): I71.2 - THORACIC AORTIC ANEURYSM, WITHOUT RUPTURE
[2016-04-28] MEDS: guaiFENesin 200 MG/10 ML 10 ML UNIT-DOSE CUPS PO PRN (02:13)
[2016-04-28] MEDS: TAMSULOSIN HCL 0.4 MG CAP.ER.24H (FP) PO SCH (09:27)
[2016-04-28] MEDS: amLODIPine BESYLATE 5 MG TABLET (FP) PO SCH (09:27)
[2016-04-28] MEDS: LISINOPRIL 10 MG TABLET (FP) PO SCH (09:27)
[2016-04-28] MEDS: DULoxetine HCL 30 MG CAPSULE.DR (FP) PO SCH (09:27)
[2016-04-28] MEDS: METOPROLOL SUCCINATE 50 MG TAB.SR.24H (FP) PO SCH (09:27)
[2016-04-28] MEDS: FERROUS SO4 325 MG TABLET (FP) PO SCH (09:27)
[2016-04-28] MEDS: predniSONE 20 MG TABLET (UD) PO SCH (09:27)
[2016-04-28] MEDS: FUROSEMIDE 20 MG TABLET (FP) PO SCH (09:27)
[2016-04-28] MEDS: PREGABALIN 50 MG CAPSULE PO SCH (09:27)
[2016-04-28] MEDS: RIVAROXABAN 20 MG TABLET PO SCH (09:27)
[2016-04-28] MEDS: BUDESONIDE/FORMETEROL FUMARATE 160/4.5 mcg INHALER IH SCH (09:28)
[2016-04-28] MEDS: TRIAMCINOLONE ACET 0.5% CREAM 15 GM TUBE TP SCH (09:28)
--- NOTE | 2016-04-28 09:49 | PN ---
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 (short form) - Note 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: Overall breathing has improved. Still with some cough. Reports discomfort around left rib cage and musculoskeletal LLQ discomfort No CP. Intake & Output 04/25/16 04/26/16 04/27/16 04/28/16 23:59 23:59 23:59 23:59 Intake Total 1550 50 750 Output Total 270 Balance 1550 -220 750 Weight 156 lb 156 lb Last Vital Signs Temp Pulse Resp BP Pulse Ox 97.9 F 61 18 149/80 93 L 04/28/16 06:22 04/28/16 06:22 04/28/16 06:22 04/28/16 06:22 04/27/16 21:00 Active Medications Acetaminophen (Tylenol -) 650 mg PO Q4H PRN PRN Reason: FEVER OR PAIN Last Admin: 04/28/16 02:13 Dose: 650 mg Amlodipine Besylate (Norvasc -) 5 mg PO DAILY [facility] Last Admin: 04/28/16 09:27 Dose: 5 mg Budesonide/Formoterol Fumarate (Symbicort 160/4.5mcg -) 2 puff IH BID [facility] Last Admin: 04/28/16 09:28 Dose: 2 puff Duloxetine HCl (Cymbalta -) 30 mg PO DAILY [facility] Last Admin: 04/28/16 09:27 Dose: 30 mg Ferrous Sulfate (Feosol -) 325 mg PO DAILY [facility] Last Admin: 04/28/16 09:27 Dose: 325 mg Furosemide (Lasix -) 20 mg PO DAILY [facility] Last Admin: 04/28/16 09:27 Dose: 20 mg Guaifenesin (Robitussin -) 10 ml PO Q4H PRN PRN Reason: COUGH Last Admin: 04/28/16 02:13 Dose: 10 ml Lisinopril (Prinivil) 10 mg PO DAILY [facility] Last Admin: 04/28/16 09:27 Dose: 10 mg Metoprolol Succinate (Toprol Xl -) 50 mg PO DAILY [facility] Last Admin: 04/28/16 09:27 Dose: 50 mg Prednisone (Deltasone -) 40 mg PO DAILY [facility] Last Admin: 04/28/16 09:27 Dose: 40 mg Pregabalin (Lyrica -) 100 mg PO BID [facility] Last Admin: 04/28/16 09:27 Dose: 100 mg Rivaroxaban (Xarelto -) 20 mg PO DAILY [facility] Last Admin: 04/28/16 09:27 Dose: 20 mg Sodium Chloride (Normal Saline -) 500 ml IV Q20M PRN PRN Reason: MAP<65mm Hg OR SBP <90 Tamsulosin HCl (Flomax -) 0.4 mg PO DAILY [facility] Last Admin: 04/28/16 09:27 Dose: 0.4 mg Triamcinolone Acetonide (Aristocort 0.5% Cream -) 1 applic TP BID [facility] Last Admin: 04/28/16 09:28 Dose: 1 applic Constitutional: Yes: No Distress Eyes: Yes: Conjunctiva Clear, EOM Intact HENT: Yes: Atraumatic, Normocephalic Neck: Yes: Supple, Trachea Midline Cardiovascular: Yes: Pulse Irregular Respiratory: Yes: Congested Cough, On Nasal O2, Rhonchi, No: Wheeze heard today , Accessory Muscle Use, Stridor ...Inspection: Yes: WNL ...Clubbing: No Gastrointestinal: Yes: Normal Bowel Sounds, Soft Renal/: Yes: WNL Musculoskeletal: Yes: WNL Extremities: Yes: WNL Edema: No Peripheral Pulses WNL: Yes Integumentary: Yes: WNL Neurological: Yes: Alert, Oriented, Pre-Existing Deficit Psychiatric: Yes: Alert, Oriented Labs: Problem List - Problems (1) Afib Code(s): I48.91 - UNSPECIFIED ATRIAL FIBRILLATION (2) Aortic aneurysm Code(s): I71.9 - AORTIC ANEURYSM OF UNSPECIFIED SITE, WITHOUT RUPTURE (3) CAD (coronary artery disease) Code(s): I25.10 - ATHSCL HEART DISEASE OF [place] CORONARY ARTERY W/O ANG PCTRS (4) COPD exacerbation Code(s): J44.1 - CHRONIC OBSTRUCTIVE PULMONARY DISEASE W (ACUTE) EXACERBATION (5) Hyperlipidemia Code(s): E78.5 - HYPERLIPIDEMIA, UNSPECIFIED (6) Hypertension Code(s): I10 - ESSENTIAL (PRIMARY) HYPERTENSION (7) Status post fall Code(s): Z91.89 - OTH PERSONAL RISK FACTORS, NOT ELSEWHERE CLASSIFIED (8) Acute exacerbation of chronic bronchitis Code(s): J20.9 - ACUTE BRONCHITIS, UNSPECIFIED J42 - UNSPECIFIED CHRONIC BRONCHITIS (9) BPH (benign prostatic hypertrophy) Code(s): N40.0 - BENIGN PROSTATIC HYPERPLASIA WITHOUT LOWER URINRY TRACT SYMP (10) Congestive heart failure (CHF) Code(s): I50.9 - HEART FAILURE, UNSPECIFIED (11) Focal motor deficit Code(s): R29.898 - OTH SYMPTOMS AND SIGNS INVOLVING THE MUSCULOSKELETAL SYSTEM (12) History of endovascular stent graft for abdominal aortic aneurysm Code(s): Z95.828 - PRESENCE OF OTHER VASCULAR IMPLANTS AND GRAFTS (13) History of permanent cardiac pacemaker placement Code(s): Z95.0 - PRESENCE OF CARDIAC PACEMAKER (14) Paroxysmal atrial fibrillation Code(s): I48.0 - PAROXYSMAL ATRIAL FIBRILLATION (15) Presence of cardiac pacemaker Code(s): Z95.0 - PRESENCE OF CARDIAC PACEMAKER (16) Shortness of breath Code(s): R06.02 - SHORTNESS OF BREATH (17) Stented coronary artery Code(s): Z95.5 - PRESENCE OF CORONARY ANGIOPLASTY IMPLANT AND GRAFT (18) Thoracic aortic aneurysm Code(s): I71.2 - THORACIC AORTIC ANEURYSM, WITHOUT RUPTURE Assessment/Plan Trial of Warm compress Prednisone BD TX O2 at 3 L NC (patient on 3 L at home) ABX for cellulitis No smoking Outpatient PFTs Check O2 saturation No Pulmonary contraindication for D/C Dr Alberto Problem List - Problems (1) Afib Code(s): I48.91 - UNSPECIFIED ATRIAL FIBRILLATION (2) Aortic aneurysm Code(s): I71.9 - AORTIC ANEURYSM OF UNSPECIFIED SITE, WITHOUT RUPTURE (3) CAD (coronary artery disease) Code(s): I25.10 - ATHSCL HEART DISEASE OF [place] CORONARY ARTERY W/O ANG PCTRS (4) COPD exacerbation Code(s): J44.1 - CHRONIC OBSTRUCTIVE PULMONARY DISEASE W (ACUTE) EXACERBATION (5) Hyperlipidemia Code(s): E78.5 - HYPERLIPIDEMIA, UNSPECIFIED (6) Hypertension Code(s): I10 - ESSENTIAL (PRIMARY) HYPERTENSION (7) Status post fall Code(s): Z91.89 - OTH PERSONAL RISK FACTORS, NOT ELSEWHERE CLASSIFIED (8) Acute exacerbation of chronic bronchitis Code(s): J20.9 - ACUTE BRONCHITIS, UNSPECIFIED J42 - UNSPECIFIED CHRONIC BRONCHITIS (9) BPH (benign prostatic hypertrophy) Code(s): N40.0 - BENIGN PROSTATIC HYPERPLASIA WITHOUT LOWER URINRY TRACT SYMP (10) Congestive heart failure (CHF) Code(s): I50.9 - HEART FAILURE, UNSPECIFIED (11) Focal motor deficit Code(s): R29.898 - OTH SYMPTOMS AND SIGNS INVOLVING THE MUSCULOSKELETAL SYSTEM (12) History of endovascular stent graft for abdominal aortic aneurysm Code(s): Z95.828 - PRESENCE OF OTHER VASCULAR IMPLANTS AND GRAFTS (13) History of permanent cardiac pacemaker placement Code(s): Z95.0 - PRESENCE OF CARDIAC PACEMAKER (14) Paroxysmal atrial fibrillation Code(s): I48.0 - PAROXYSMAL ATRIAL FIBRILLATION (15) Presence of cardiac pacemaker Code(s): Z95.0 - PRESENCE OF CARDIAC PACEMAKER (16) Shortness of breath Code(s): R06.02 - SHORTNESS OF BREATH (17) Stented coronary artery Code(s): Z95.5 - PRESENCE OF CORONARY ANGIOPLASTY IMPLANT AND GRAFT (18) Thoracic aortic aneurysm Code(s): I71.2 - THORACIC AORTIC ANEURYSM, WITHOUT RUPTURE
--- NOTE | 2016-04-28 09:55 | PN ---
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, Physician - Current Medication List Current Medications: Active Medications Acetaminophen (Tylenol -) 650 mg PO Q4H PRN PRN Reason: FEVER OR PAIN Last Admin: 04/28/16 02:13 Dose: 650 mg Amlodipine Besylate (Norvasc -) 5 mg PO DAILY [facility] Last Admin: 04/28/16 09:27 Dose: 5 mg Budesonide/Formoterol Fumarate (Symbicort 160/4.5mcg -) 2 puff IH BID [facility] Last Admin: 04/28/16 09:28 Dose: 2 puff Duloxetine HCl (Cymbalta -) 30 mg PO DAILY [facility] Last Admin: 04/28/16 09:27 Dose: 30 mg Ferrous Sulfate (Feosol -) 325 mg PO DAILY [facility] Last Admin: 04/28/16 09:27 Dose: 325 mg Furosemide (Lasix -) 20 mg PO DAILY [facility] Last Admin: 04/28/16 09:27 Dose: 20 mg Guaifenesin (Robitussin -) 10 ml PO Q4H PRN PRN Reason: COUGH Last Admin: 04/28/16 02:13 Dose: 10 ml Lisinopril (Prinivil) 10 mg PO DAILY [facility] Last Admin: 04/28/16 09:27 Dose: 10 mg Metoprolol Succinate (Toprol Xl -) 50 mg PO DAILY [facility] Last Admin: 04/28/16 09:27 Dose: 50 mg Prednisone (Deltasone -) 40 mg PO DAILY [facility] Last Admin: 04/28/16 09:27 Dose: 40 mg Pregabalin (Lyrica -) 100 mg PO BID [facility] Last Admin: 04/28/16 09:27 Dose: 100 mg Rivaroxaban (Xarelto -) 20 mg PO DAILY [facility] Last Admin: 04/28/16 09:27 Dose: 20 mg Sodium Chloride (Normal Saline -) 500 ml IV Q20M PRN PRN Reason: MAP<65mm Hg OR SBP <90 Tamsulosin HCl (Flomax -) 0.4 mg PO DAILY [facility] Last Admin: 04/28/16 09:27 Dose: 0.4 mg Triamcinolone Acetonide (Aristocort 0.5% Cream -) 1 applic TP BID [facility] Last Admin: 04/28/16 09:28 Dose: 1 applic - Objective Vital Signs: Vital Signs Temperature 97.9 F 04/28/16 06:22 Pulse Rate 61 04/28/16 06:22 Respiratory Rate 18 04/28/16 06:22 Blood Pressure 149/80 04/28/16 06:22 O2 Sat by Pulse Oximetry (%) 93 L 04/27/16 21:00 Eyes: Yes: WNL, Conjunctiva Clear, EOM Intact HENT: Yes: WNL, Atraumatic, Normocephalic Neck: Yes: WNL, Supple, Trachea Midline Cardiovascular: Yes: Pulse Irregular, S1, S2 Respiratory: Yes: WNL, Regular, CTA Bilaterally Gastrointestinal: Yes: WNL, Normal Bowel Sounds Genitourinary: Yes: WNL Musculoskeletal: Yes: WNL Extremities: Yes: WNL Edema: No Integumentary: Yes: WNL Neurological: Yes: WNL, Alert, Oriented ...Motor Strength: WNL Psychiatric: Yes: WNL Labs: CBC, BMP 04/23/16 07:00 04/25/16 06:15 INR, PTT INR 1.24 (0.82-1.09) H 04/22/16 12:26 Assessment/Plan 75 year old man with a history of HTN, HLD, Afib, CAD s/p CABG s/p stents, PPM, ICM refused ICD in the past, PAD, Thoracic aortic aneursym, CVA with residual L sided weakness, COPD admitted with worsening sob, fever, cough for the past several days. SOB/nasal congestion/subjective fevers/cough -URI with AE COPD -overall euvolemic -cont current lasix dose on discharge -cont tx as per Pulm reccs -no additional inpatient cardiac work up needed at this point CAD-h/o CABG and PCI with stents, h/o ischemic cardiomyopathy -stable -cont current home medical regimen -most recent echo showed grossly normal LV systolic function HTN-adequately controlled -cont current medical regimen Thoracic aortic aneurysm -stable, has been monitored as outpatient and evaluated/followed by Vascular surgery -cont bblocker -outpatient follow up- has been deemed a very high risk candidate for intervention. PPM-Mauricio sci -normal functioning on ekg, followed as outpatient, last checked 10/2015 normal functioning, planned for check 06/2016 -h/o PAF, continue AC
[2016-04-28 10:51] VITALS: BP 145/93; PULSE 72; TEMP 97.7
== END 2016-04-28 15:35 | disposition home or self-care (01) | DRG 191 ==
LOC: JER 11:54 → JERBED 13:58 → J8W 16:17
PROVIDERS: ADMIT Internal Medicine; ATTEND Internal Medicine
DX: J44.1 Chronic obstructive pulmonary disease with (acute) exacerbation (principal); I69.354 Hemiplegia and hemiparesis following cerebral infarction affecting left non-dominant side; L03.115 Cellulitis of right lower limb; I50.42 Chronic combined systolic (congestive) and diastolic (congestive) heart failure; E78.5 Hyperlipidemia, unspecified; I25.10 Atherosclerotic heart disease of native coronary artery without angina pectoris; Z95.1 Presence of aortocoronary bypass graft; Z87.891 Personal history of nicotine dependence; N40.0 Benign prostatic hyperplasia without lower urinary tract symptoms; I48.0 Paroxysmal atrial fibrillation; G62.9 Polyneuropathy, unspecified; I11.0 Hypertensive heart disease with heart failure; J06.9 Acute upper respiratory infection, unspecified; I25.5 Ischemic cardiomyopathy; B34.9 Viral infection, unspecified
CPT/HCPCS: 36415; 71010-TC; 80053; 81003; 81015; 82550; 82803; 83605; 83735; 83880; 84484; 85025; 85610; 85730; 86850; 86900; 86901; 87040; 87086; 87804; 93005; 93010; 94640; 94761; 97116-GP; 97161-GP; 99285-25

== ENCOUNTER 2016-04-29 10:36 | Emergency (ER) | payer OTHER ==
[2016-04-29 10:41] VITALS: BP 126/72; PULSE 100; TEMP 98.1; BMI 24.7
--- NOTE | 2016-04-29 10:57 | PDOC ---
History of Present Illness - General History Source: Patient Exam Limitations: No Limitations - History of Present Illness Initial Comments: 04/29/16 11:12 The patient is a 75 year old male with significant history of hypertension, hyperlipidemia, atrial fibrillation (on Xarelto), CAD s/p CABG s/p stents, CVA with residual L sided weakness, pacemaker, and COPD with laceration to the left elbow s/p fall. Patient notes that he fell and bumped his elbow on the TV stand and notes that he ripped his right elbow. Patient notes that his Tetanus is not up to date. He states that he was recently discharged from here for COPD exacerbation. PCP: Dr. Goran [facility] Clinical Coordinator: Dr. Hines Marble Polisher Hand: Dr. Fleming <Betsy Martinez - Last Filed: 04/29/16 11:12> <Brody Euceda - Last Filed: 04/29/16 12:09> - General Chief Complaint: Injury Stated Complaint: LT ARM INJURY Past History <Betsy Martinez - Last Filed: 04/29/16 11:12> - Past Medical History Anemia: No Cardiac Disorders: Yes (A-fib, CABG, PM. STENTS.) CVA: Yes (01/23/12..SPEECH DEFECITS.) COPD: Yes HTN: Yes Hypercholesterolemia: Yes - Surgical History Abdominal Surgery: Yes (S/P AAA) Cardiac Surgery: Yes (Bypass 2014, PM.) Orthopedic Surgery: Yes (FRACTURE RT FEMER S/P ORIF) - Immunization History Immunization Up to Date: Yes - Psycho/Social/Smoking Cessation Hx Anxiety: No Suicidal Ideation: No Smoking History: Former smoker Have you smoked in the past 12 months: No If you are a former smoker, when did you quit?: 2006 Cigars Per Day: 0 Information on smoking cessation initiated: No Hx Alcohol Use: No Drug/Substance Use Hx: No Substance Use Type: None Hx Substance Use Treatment: No <Brody Euceda - Last Filed: 04/29/16 12:09> - Past Medical History Allergies/Adverse Reactions: Allergies Allergy/AdvReac Type Severity Reaction Status Date / Time prednisone Allergy Intermediate "too wired" Verified 04/29/16 10:41 Home Medications: Ambulatory Orders Amlodipine Besylate [Norvasc -] 5 mg PO DAILY 04/22/16 Budesonide/Formeterol Fumarate [SYMBICORT 160/4.5mcg -] 2 inh PO BID 04/22/16 Duloxetine HCl 30 mg PO DAILY 04/22/16 Ferrous Sulfate 325 mg PO DAILY 04/22/16 Furosemide [Lasix] 20 mg PO DAILY 04/22/16 Lisinopril 10 mg PO DAILY 04/22/16 Metoprolol Succinate [Toprol Xl] 50 mg PO DAILY 04/22/16 Pregabalin [Lyrica] 100 mg PO BID 04/22/16 Rivaroxaban [Xarelto -] 20 mg PO DAILY 04/22/16 Tamsulosin HCl [Flomax] 0.4 mg PO DAILY 04/22/16 Zolpidem Tartrate 10 mg PO HS 04/22/16 Albuterol 0.083% Nebulizer Suki [Ventolin 0.083% Nebulizer Soln -] 1 amp NEB Q6HPO #60 amp 04/28/16 Prednisone [Deltasone -] 40 mg PO DAILY #7 tablet 04/28/16 Review of Systems - Review of Systems Able to Perform ROS?: Yes Comments:: 04/29/16 11:12 GENERAL/CONSTITUTIONAL: No fever or chills. No weakness. HEAD, EYES, EARS, NOSE AND THROAT: No change in vision. No ear pain or discharge. No sore throat. CARDIOVASCULAR: No chest pain or shortness of breath. RESPIRATORY: No cough, wheezing, or hemoptysis. GASTROINTESTINAL: No nausea, vomiting, diarrhea or constipation. GENITOURINARY: No dysuria, frequency, or change in urination. MUSCULOSKELETAL: No joint or muscle swelling or pain. No neck or back pain. SKIN: +laceration to the right elbow. No rash NEUROLOGIC: No headache, vertigo, loss of consciousness, or change in strength/ sensation. ENDOCRINE: No increased thirst. No abnormal weight change. HEMATOLOGIC/LYMPHATIC: No anemia, easy bleeding, or history of blood clots. ALLERGIC/IMMUNOLOGIC: No hives or skin allergy. <Betsy Martinez - Last Filed: 04/29/16 11:12> *Physical Exam - Vital Signs Last Vital Signs Temp Pulse Resp BP Pulse Ox 98.1 F 100 H 18 126/72 88 L 04/29/16 10:38 04/29/16 10:38 04/29/16 10:38 04/29/16 10:38 04/29/16 10:38 - Physical Exam Comments: 04/29/16 11:13 GENERAL: Awake, alert, and fully oriented, in no acute distress HEAD: No signs of trauma EYES: PERRLA, EOMI, sclera anicteric, conjunctiva clear ENT: Auricles normal inspection, hearing grossly normal, nares patent, oropharynx clear without exudates. Moist mucosa NECK: Normal ROM, supple, no lymphadenopathy, JVD, or masses LUNGS: Breath sounds equal, clear to auscultation bilaterally. No wheezes, and no crackles HEART: +systolic murmur 4/6. Regular rate and rhythm, normal S1 and S2, no ubs or gallops ABDOMEN: Soft, nontender, normoactive bowel sounds. No guarding, no rebound. No masses EXTREMITIES: Normal range of motion, no edema. No clubbing or cyanosis. No cords, erythema, or tenderness NEUROLOGICAL: Cranial nerves II through XII grossly intact. Normal speech, normal gait SKIN: +laceration on the right elbow. Warm, Dry, normal turgor, no rashes. <Betsy Martinez - Last Filed: 04/29/16 11:12> - Vital Signs Last Vital Signs Temp Pulse Resp BP Pulse Ox 98.1 F 100 H 18 126/72 88 L 04/29/16 10:38 04/29/16 10:38 04/29/16 10:38 04/29/16 10:38 04/29/16 10:38 <Brody Euceda - Last Filed: 04/29/16 12:09> *DC/Admit/Observation/Transfer - Attestations Scribe Attestion: 04/29/16 11:14 Documentation prepared by ABEBA Huang, acting as medical office receptionist assistant for Brody Euceda MD/. <Betsy Martinez - Last Filed: 04/29/16 11:12> - Discharge Dispostion Admit: No - Attestations Physician Attestion: 04/29/16 10:57 I, Dr. Brody Euceda, attest that this document has been prepared under my direction and personally reviewed by me in its entirety. I further attest, that it accurately reflects all work, treatment, procedures and medical decision -making performed by me. <Brody Euceda - Last Filed: 04/29/16 12:09> Diagnosis at time of Disposition: Skin tear Contusion Qualifiers: Encounter type: initial encounter Contusion area: elbow Laterality: left Qualified Code(s): S50.02XA - Contusion of left elbow, initial encounter - Discharge Dispostion Disposition: HOME Condition at time of disposition: Improved - Referrals Referrals: Goran Phan MD [Primary Care Provider] - - Patient Instructions Printed Discharge Instructions: DI for Contusion Additional Instructions: Mr Villar- Sorry this happened to you this morning. You can get the wound wet, pad it dry immediately. The steri-strips will lift up at the ends- just trim them with a small pair of scissors. Return to us if any problems or you develop any signs of infection, [more sore, redness, any drainage], otherwise follow up with your doctor later this week. Best- Dr. Brody Euceda
[2016-04-29] MEDS ORDERED: DIPHTH,PERTUSS(ACELL),TET VAC 0.5 ML VIAL IM ONE (11:01)
== END 2016-04-29 12:20 | disposition home or self-care (01) ==
LOC: JER 10:36
PROC: 3E0234Z Introduction of Serum, Toxoid and Vaccine into Muscle, Percutaneous Approach (ICD-10-PCS; principal; 2016-04-29)
DX: S51.012A Laceration without foreign body of left elbow, initial encounter (principal); S50.02XA Contusion of left elbow, initial encounter; W01.190A Fall on same level from slipping, tripping and stumbling with subsequent striking against furniture, initial encounter; Y93.89 Activity, other specified; Y92.018 Other place in single-family (private) house as the place of occurrence of the external cause; I25.10 Atherosclerotic heart disease of native coronary artery without angina pectoris; I10 Essential (primary) hypertension; Z95.1 Presence of aortocoronary bypass graft; Z95.5 Presence of coronary angioplasty implant and graft; I48.91 Unspecified atrial fibrillation; Z79.01 Long term (current) use of anticoagulants; Z95.0 Presence of cardiac pacemaker; J44.9 Chronic obstructive pulmonary disease, unspecified; I69.854 Hemiplegia and hemiparesis following other cerebrovascular disease affecting left non-dominant side; I69.820 Aphasia following other cerebrovascular disease
CPT/HCPCS: 73070-TC-LT; 90471; 99281-25

== ENCOUNTER 2016-05-27 11:11 | Inpatient (IN) | payer OTHER ==
--- NOTE | 2016-05-27 11:23 | PDOC ---
History of Present Illness - General Stated Complaint: INFECTION Time Seen by Provider: 05/27/16 11:22 History Source: Patient, Spouse Exam Limitations: Dementia, Other (Speech delayed due to residual effect of CVA. ) - History of Present Illness Initial Comments: 05/27/16 11:55 CHIEF COMPLAINT: Worsening right lower extremity swelling and redness PCP: Dr. Juanito Bowden ([phone]) (Patient changed his primary doctor last week) Dr. Hines (Traffic Engineering Director) HISTORY OF PRESENT ILLNESS: 75 year old male presented to the ED accompanied by his with the chief complaints of worsening lower extremity redness, swelling and pain. A/c to the patients , patient was admitted here at [facility] in Mar, 2016 for COPD exacerbation and cellulitis of right lower extremity. reports she noticed breaking of skin of lower extremity with oozing of serosanguinous fluid. Patient visited Dr. Solomon on Saturday and was given Keflex 500mg TID and has been taking since 3 days (Took 3 tabs on Saturday, 2 tabs yesterday and 1 today). also reports development of rash which got better last admission when he was on Prednisone but now after the tapering of steroid, rash is getting worse. It is more on the neck, back and new rash on the b/l lower quadrants. It comes on/off, not painful. Denies fever, chills, rigors, sweating, chest pain, cough, palpitation, abdominal pain, nausea or vomiting. Bowel/Bladder habit normal. Sleep disturbed and appetite decreased since illness. Recent Travel: None PAST MEDICAL HISTORY: Hypertension, Hyperlipidemia, Atrial fibrillation, CAD s/ p CABG s/p 2 stents, AAA repair, CVA with residual left sided weakness and delayed speech, pacemaker, COPD on home oxygen, bypass (lower extremity), left femur tamara placement s/p fracture (had reinfection took antibiotics for a year). PAST SURGICAL HISTORY: As mentioned above Social History: Smoking: Denies Alcohol: Denies Drugs: Denies Family History:Unknown Hospitalization: 04/23/16 for COPD exacerbation and was given Ancef for Cellulitis of right lower extremity. Allergies: NKDA Past History - Past Medical History Allergies/Adverse Reactions: Allergies Allergy/AdvReac Type Severity Reaction Status Date / Time prednisone Allergy Intermediate "too wired" Verified 04/29/16 10:41 Home Medications: Ambulatory Orders Amlodipine Besylate [Norvasc -] 5 mg PO DAILY 04/22/16 Budesonide/Formeterol Fumarate [SYMBICORT 160/4.5mcg -] 2 inh PO BID 04/22/16 Duloxetine HCl 60 mg PO DAILY 04/22/16 Ferrous Sulfate 325 mg PO DAILY 04/22/16 Furosemide [Lasix] 20 mg PO DAILY 04/22/16 Lisinopril 10 mg PO DAILY 04/22/16 Metoprolol Succinate [Toprol Xl] 50 mg PO DAILY 04/22/16 Pregabalin [Lyrica] 100 mg PO BID 04/22/16 Rivaroxaban [Xarelto -] 20 mg PO DAILY 04/22/16 Tamsulosin HCl [Flomax] 0.4 mg PO DAILY 04/22/16 Zolpidem Tartrate 10 mg PO HS 04/22/16 Albuterol 0.083% Nebulizer Suki [Ventolin 0.083% Nebulizer Soln -] 1 amp NEB Q6HPO #60 amp 04/28/16 Donepezil HCl 5 mg PO DAILY 05/27/16 Anemia: No Cardiac Disorders: Yes (A-fib, CABG, PM. STENTS.) CVA: Yes (01/23/12..SPEECH DEFECITS.) COPD: Yes HTN: Yes Hypercholesterolemia: Yes - Surgical History Abdominal Surgery: Yes (S/P AAA) Cardiac Surgery: Yes (Bypass 2013, PM.) Orthopedic Surgery: Yes (FRACTURE RT FEMER S/P ORIF) - Immunization History Immunization Up to Date: Yes - Psycho/Social/Smoking Cessation Hx Anxiety: No Suicidal Ideation: No Smoking History: Former smoker Have you smoked in the past 12 months: No If you are a former smoker, when did you quit?: 2006 Cigars Per Day: 0 Hx Alcohol Use: No Drug/Substance Use Hx: No Substance Use Type: None Hx Substance Use Treatment: No Review of Systems - Review of Systems Able to Perform ROS?: Yes Comments:: 05/27/16 12:36 CONSTITUTIONAL:~ Absent: fever, chills, diaphoresis, generalized weakness, malaise, loss of appetite HEENT:~ Absent: rhinorrhea, nasal congestion, throat pain, throat swelling, difficulty swallowing, mouth swelling, ear pain, eye pain, visual Changes CARDIOVASCULAR:~ Absent: chest pain, syncope, palpitations, irregular heart rate, lightheadedness , peripheral edema RESPIRATORY:~ Absent: cough, shortness of breath, dyspnea with exertion, orthopnea, wheezing, stridor, hemoptysis GASTROINTESTINAL: Absent: abdominal pain, abdominal distension, nausea, vomiting, diarrhea, constipation, melena, hematochezia GENITOURINARY:~ Absent: dysuria, frequency, urgency, hesitancy, hematuria, flank pain, genital pain MUSCULOSKELETAL:~ Present: Right ankle swelling, redness extending upto the knees, pain, serosanguinous fluid, dry cracked skin Absent: myalgia, arthralgia, joint swelling SKIN:~ Absent: rash, itching, pallor HEMATOLOGIC/IMMUNOLOGIC:~ Absent: easy bleeding, easy bruising, lymphadenopathy, frequent infections ENDOCRINE: Absent: unexplained weight gain, unexplained weight loss, heat intolerance, cold intolerance NEUROLOGIC:~ Absent: headache, focal weakness or paresthesias, dizziness, unsteady gait, seizure, mental status changes, bladder or bowel incontinence PSYCHIATRIC:~ Absent: anxiety, depression, suicidal or homicidal ideation, hallucinations. Skin: Present: Rash on the back, neck, abdomen. Is the patient limited Palestinian proficient: No *Physical Exam - Physical Exam Comments: 05/27/16 12:38 PE: GENERAL: Elderly male, Awake, alert, and fully oriented, in no acute distress, speech delayed HEAD: No signs of trauma EYES: PERRLA, EOMI, sclera anicteric, conjunctiva clear ENT: Auricles normal inspection, hearing grossly normal, nares patent, oropharynx clear without exudates. Moist mucosa NECK: Normal ROM, supple, no lymphadenopathy, JVD, or masses LUNGS:Decreased Breath sounds bilaterally, wheezes occasional and no crackles. HEART: Irregularly Irregular rate and rhythm, Paced S1 and S2, no murmurs, rubs or gallops ABDOMEN: Soft, nontender, normoactive bowel sounds. No guarding, no rebound. No masses EXTREMITIES: Normal range of motion, no edema. No clubbing or cyanosis. No cords, erythema, or tenderness NEUROLOGICAL: Cranial nerves II through XII grossly intact. Normal speech, normal gait SKIN: Left lower extremity: Dry cracked skin Right lower extremity: Erythema up to the knees starting from the ankle, swelling in the ankle, cracked skins, raised temperature, tenderness over the palpation and pain on movement. Rash on the neck, back and b/l lower quadrants, patches of macular lesions, non tender, non blanching. ED Treatment Course - LABORATORY CBC & Chemistry Diagram: 05/27/16 11:48 05/27/16 11:48 Medical Decision Making - Medical Decision Making 05/27/16 11:32 Patient seen and examined at bed side. Vitals noted, Tachycardic-93bpm, RR-20; Spo2-89%, afebrile. Physical examination as mentioned above. Will order routine labs, CXR, EKG, Duplex of right lower extremity IV Vancomycin and Zosyn (refractory to keflex) Gentle IV hydration Duoneb Nebulization Differential Diagnosis: Cellulitis of right lower extremity, Herpes [place] in the abdomen 05/27/16 12:30 Patient reassessed. Breathing has improved. Oxygen saturation still in 90's Will order ABG 05/27/16 13:30 Patient reassessed. Labs noted, DUARTE creatinine 1.4 (baseline 1.2) Patient received IV hydration. 05/27/16 16:10 Clinical Impression/Plan: Cellulitis of right lower extremity and COPD exacerbation Patient received 2 Duoneb Nebulization Received IV Vancomycin and Zosyn (refractory to keflex) Dr. Londono spoke with Dr Doe and he agrees to our plan to admit the patient in Med/surg Illness, Investigation and Plan of care explained to the patient and his . They verbalized understanding. Case seen and discussed with Dr. Londono. *DC/Admit/Observation/Transfer Diagnosis at time of Disposition: Cellulitis of right leg, COPD exacerbation - Discharge Dispostion Condition at time of disposition: Guarded Admit: Yes - Referrals
[2016-05-27 11:49] VITALS: BMI 24.5
[2016-05-27] MEDS ORDERED: ALBUTEROL SO4 2.5/IPRATROPIUM 0.5 INH SOL 3 ML VIAL.NEB. NEB ONE ×4 (11:54→17:46)
[2016-05-27] MEDS ORDERED: PIPERACILLIN/TAZOB 3.375 GM/50 ML PRE-DOCKED IVPB ONE (11:55)
[2016-05-27] MEDS ORDERED: VANCOMYCIN 1,000 MG in DEXTROSE 5%-WATER - 250 ML IVPB ONE (11:55)
[2016-05-27] MEDS ORDERED: VANCOMYCIN 1 GRAM (PRE-DOCKED) 250 ML IVPB ONE (12:03)
[2016-05-27] MEDS ORDERED: PIPERACILLIN/TAZOB 3.375 GM 50 ML IVPB ONE (12:04)
[2016-05-27 12:06] LABS: BASOPHIL 0.8 % (0-2.0); EOSINOPHIL 3.4 % (0-4.5); MCH 28.9 pg (25.7-33.7); MCHC 32.7 g/dl (32.0-35.9); MEAN CELL VOLUME 88.3 fl (80-96); MEAN PLT VOLUME 8.8 fl (7.5-11.1); NEUTROPHILS 72.6 % (42.8-82.8); PLATELET COUNT 188 K/MM3 (134-434); RDW 16.7 % (11.9-15.9); WHITE BLOOD COUNT 5.4 K/mm3 (4.0-10.0)
--- NOTE | 2016-05-27 12:13 | PDOC ---
Attending Attestation - Resident Resident Name: Renetta Perrinny - ED Attending Attestation I have performed the following: I have examined & evaluated the patient, The case was reviewed & discussed with the resident, I agree w/resident's findings & plan - HPI HPI: 05/27/16 12:09 75-year-old male with complex medical history, including COPD on home oxygen, hypertension, hyperlipidemia, atrial fibrillation on Xarelto, CABG, stent 2, CVA with right sided weakness, and speech difficulties since the CVA, AAA repair , PVD, infected orthopedic hardware, for which she was on antibiotics for a year , but this has cleared up He was admitted at the end of March here for a COPD exacerbation and right leg cellulitis At that time also had a rash, but he was put on prednisone for the COPD and the rash went away He is complaining of a few days of progressive right lower extremity redness swelling or warmth and pain He saw his primary care doctor on Saturday and was started on Keflex, but the symptoms have worsened despite the Keflex He also noted that the rash came back when he stopped his prednisone taper after his last admission, and his worsening He states that he could use a neb at this time, but denies any recent worsening of his COPD He denies any chest pain or abdominal pain He denies any symptoms in his left leg He denies any other complaints at this time - Physicial Exam PE: 05/27/16 12:11 Physical exam Last Vital Signs Temp Pulse Resp BP Pulse Ox 98.1 F 93 H 20 120/75 89 L 05/27/16 11:32 05/27/16 11:32 05/27/16 11:32 05/27/16 11:32 05/27/16 11:32 GENERAL: The patient is awake, alert, and answering questions with [place] difficulty due to his prior CVA HEAD: Normal with no signs of trauma. EYES: Sclera anicteric ENT: Moist mucous membranes. NECK: Normal range of motion, supple LUNGS: There is a prolonged expiratory phase, and scattered wheezes in all lung avilez HEART: Regular rate and rhythm, normal S1 and S2 without murmur, rub or gallop. ABDOMEN: Soft, nontender, normoactive bowel sounds. No guarding, no rebound. No masses appreciated. EXTREMITIES: There is cellulitis in the right lower 70 below the knee, and the area is warm and tender There is also some calf tenderness The dorsalis pedis is operable in the right lower extremity The left lower extremity is benign The toes are warm and both feet NEUROLOGICAL: Patient is alert, answering questions with slurred speech, which is his baseline PSYCH: Normal mood, normal affect. SKIN: Warm, Dry, there is a potential shingles type-looking rash, although not in a dermatomal distribution, which was the rash she had in the hospital before according to the , which went away with prednisone but came back when he stopped the prednisone - Medical Decision Making 05/27/16 12:13 EKG Normal sinus rhythm 79, with [place] beats and paced beats Left axis deviation -78 Normal SD interval Nonspecific intraventricular block QTC [address]-T wave abnormalities When compared to the prior EKG The prior EKG was placed 100% 75-year-old male with possible recurrent cellulitis in his right lower extremity , which has not responded to Keflex Being that the patient was recently in the hospital with cellulitis, and his prior orthopedic hardware infection, I'm concerned about MRSA We'll start coverage with vancomycin and Zosyn (to cover gram negatives), and check a DVT ultrasound 05/27/16 14:24 Laboratory Results - last 24 hr 05/27/16 05/27/16 05/27/16 11:48 11:48 11:48 WBC 5.4 D RBC 5.55 Hgb 16.0 D Hct 49.0 MCV 88.3 MCHC 32.7 RDW 16.7 H Plt Count 188 MPV 8.8 Neutrophils % 72.6 Lymphocytes % 13.9 D Monocytes % 9.3 Eosinophils % 3.4 D Basophils % 0.8 D Puncture Site ABG pH ABG pCO2 at Pt Temp ABG pO2 at Pt Temp ABG HCO3 ABG O2 Sat (Measured) ABG O2 Content ABG Base Excess Aristides Test O2 Delivery Device Oxygen Flow Rate PEEP Sodium 144 Potassium 5.7 H D Chloride 107 Carbon Dioxide 31 Anion Gap 6 L BUN 18 D Creatinine 1.4 H Creat Clearance w eGFR 49.14 Random Glucose 71 L D Lactic Acid 1.388 Calcium 8.8 Total Bilirubin 0.5 D AST 39 H D ALT 17 Alkaline Phosphatase 62 D Creatine Kinase 147 Troponin I < 0.02 Total Protein 7.2 Albumin 3.3 L 05/27/16 13:59 WBC RBC Hgb Hct MCV MCHC RDW Plt Count MPV Neutrophils % Lymphocytes % Monocytes % Eosinophils % Basophils % Puncture Site Right radial ABG pH 7.43 ABG pCO2 at Pt Temp 40.5 ABG pO2 at Pt Temp 57.2 L D ABG HCO3 26.3 H ABG O2 Sat (Measured) 88.8 L ABG O2 Content 18.4 ABG Base Excess 2.3 H Aristides Test Positive O2 Delivery Device Nasal Oxygen Flow Rate 4l PEEP 0.0 Sodium Potassium Chloride Carbon Dioxide Anion Gap BUN Creatinine Creat Clearance w eGFR Random Glucose Lactic Acid Calcium Total Bilirubin AST ALT Alkaline Phosphatase Creatine Kinase Troponin I Total Protein Albumin Patient had 2 nebs, and felt somewhat better after 2 nebs 05/27/16 15:08 DVT ultrasound-negative for DVT 05/27/16 15:16 Multiple calls were placed to Dr. Escamilla over an hour and a half without any answer Will call hospitalist Impression-celluitis of the right leg, COPD exacerbation 05/27/16 15:56 Case discussed with hospitalist-will admit K 5.7 - lab reported hemolyzed specimen Discharge Disposition - Diagnosis Cellulitis of right leg, COPD exacerbation - Discharge Dispostion Condition at time of disposition: Guarded Last Admission D/C Date: 04/28/16 Admit: Yes
[2016-05-27 12:48] LABS: ALBUMIN 3.3 g/dl (3.4-5.0); ANION GAP 6 (8-16); BILIRUBIN,TOTAL 0.5 mg/dL (0.2-1.0); CALCIUM 8.8 mg/dL (8.5-10.1); CO2 31 mmol/L (21-32); CREATININE 1.4 mg/dL (0.7-1.3); GLUCOSE,RANDOM 71 mg/dL (74-106); SGPT/ALT 17 U/L (12-78); TOT PROT 7.2 g/dl (6.4-8.2)
[2016-05-27 12:50] LABS: ALK PHOS 62 U/L (45-117); TROPONIN I < 0.02 ng/ml (0.00-0.05)
[2016-05-27 12:53] LABS: SGOT/AST 39 U/L (15-37)
[2016-05-27 14:06] LABS: ARTERIAL BLD GAS O2 SATURATION 88.8 % (90-98.9); ARTERIAL BLOOD GAS BASE EXCESS 2.3 meq/l (-2-2); ARTERIAL BLOOD GAS HCO3 26.3 meq/L (22-26); ARTERIAL BLOOD GAS pH 7.43 (7.35-7.45)
[2016-05-27] MEDS: SODIUM CHLORIDE 1,000 ML IV SCH ×2 (14:06→18:44)
[2016-05-27 14:07] LABS: ALLENS TEST POSITIVE; ART PUNCT SITE RIGHT RADIAL; LPM/O2% 4L; PT. ON O2? YES; TYPE OF O2 NASAL
[2016-05-27] MEDS ORDERED: ACETAMINOPHEN 325 MG TABLET (FP) ONE (14:14)
[2016-05-27 14:15] LABS: ARTERIAL BLOOD GAS PO2 57.2 mmHg (70-100)
[2016-05-27] MEDS ORDERED: ACETAMINOPHEN 325 MG TABLET (FP) PO ONE (14:17)
--- NOTE | 2016-05-27 16:04 | PN ---
Teaching Attending Note Name of Resident: Armando Allne ATTENDING PHYSICIAN STATEMENT I saw and evaluated the patient. I reviewed the resident's note and discussed the case with the resident. I agree with the resident's findings and plan as documented. Patient seen and examined at bedside. Chart, data, imaging reviewed. SUBJECTIVE: 75-year-old male with complex medical history, including COPD on home oxygen, hypertension, hyperlipidemia, atrial fibrillation on Xarelto, CABG, stent 2, CVA with right sided weakness, and speech difficulties since the CVA, AAA repair , PVD, infected orthopedic hardware, for which she was on antibiotics for a year comes in complaining of right lower ext pain and erythema which did not respond to PO abx. Right leg is tender to palpation. Denied any fevers. OBJECTIVE: Temp Pulse Resp BP Pulse Ox 97.8 F 70 22 137/86 89 L 05/27/16 18:18 05/27/16 18:18 05/27/16 18:18 05/27/16 18:18 05/27/16 18:20 HEENT - NT, NC, dry oral mucosa NEck - supple CV -s1+S2+ RRR Chest - CTA b/l ABdomen- soft, NT, BS+ Ext -right knee scar SKin- right leg tender, erythematous up to mid tibia Laboratory Results - last 24 hr 05/27/16 05/27/16 05/27/16 11:48 11:48 11:48 WBC 5.4 D RBC 5.55 Hgb 16.0 D Hct 49.0 MCV 88.3 MCHC 32.7 RDW 16.7 H Plt Count 188 MPV 8.8 Neutrophils % 72.6 Lymphocytes % 13.9 D Monocytes % 9.3 Eosinophils % 3.4 D Basophils % 0.8 D Puncture Site ABG pH ABG pCO2 at Pt Temp ABG pO2 at Pt Temp ABG HCO3 ABG O2 Sat (Measured) ABG O2 Content ABG Base Excess Aristides Test O2 Delivery Device Oxygen Flow Rate PEEP Sodium 144 Potassium 5.7 H D Chloride 107 Carbon Dioxide 31 Anion Gap 6 L BUN 18 D Creatinine 1.4 H Creat Clearance w eGFR 49.14 Random Glucose 71 L D Lactic Acid 1.388 Calcium 8.8 Total Bilirubin 0.5 D AST 39 H D ALT 17 Alkaline Phosphatase 62 D Creatine Kinase 147 Troponin I < 0.02 Total Protein 7.2 Albumin 3.3 L 05/27/16 13:59 WBC RBC Hgb Hct MCV MCHC RDW Plt Count MPV Neutrophils % Lymphocytes % Monocytes % Eosinophils % Basophils % Puncture Site Right radial ABG pH 7.43 ABG pCO2 at Pt Temp 40.5 ABG pO2 at Pt Temp 57.2 L D ABG HCO3 26.3 H ABG O2 Sat (Measured) 88.8 L ABG O2 Content 18.4 ABG Base Excess 2.3 H Aristides Test Positive O2 Delivery Device Nasal Oxygen Flow Rate 4l PEEP 0.0 Sodium Potassium Chloride Carbon Dioxide Anion Gap BUN Creatinine Creat Clearance w eGFR Random Glucose Lactic Acid Calcium Total Bilirubin AST ALT Alkaline Phosphatase Creatine Kinase Troponin I Total Protein Albumin Lower ext duplex -negative for DVT EKG- paced rhythm ASSESSMENT AND PLAN: #Right lower extremity cellulitis with duplex of lower ext negative, did not respond to PO abx. Should evaluate for possible hardware involvement of right knee.S/p Vancomycin and zosyn adminstration in the ER. -blood cultures x2 -ESR -xray for right leg -continue vancomycin and Zosyn -ID consult #DUARTE on CKD -send urine lytes, osmolality -serum osmolalty -gentle IVF hydration -renal U/S -avoid nephrotoxic medications #Hyperkalemia -no EKG changes noted, may be 2/2 to DUARTE -kayexalate one dose PO -repeat potassium Chronic medical problems - continue home medications -DVT ppx- moderate risk -continue xarelto
[2016-05-27] MEDS ORDERED: ALBUTEROL SO4 0.083% IH SOL 2.5 MG/3 ML VIAL.NEB. NEB PRN (17:22)
--- NOTE | 2016-05-27 17:27 | HP ---
CHIEF COMPLAINT: redness and pain in right le PCP: Dr. Juanito Bowden ([phone]) Cardio: Dr. Hines HISTORY OF PRESENT ILLNESS: 75 yr old man with hypertension, hyperlipidemia, atrial fibrillation (on xarelto ), CAD s/p CABG s/p stents, CVA with residual weakness, pacemaker, COPD on home oxygen 3lpm, presents with right lower leg redness and pain for past few days. He noticed it after walking around his garden and his neighborhood. He initially called his doctor who prescribed po antibiotics, as per ED note patient was given keflex 500mg x3 on saturday, 2 on saturday and 1 this morning, which did not relieve the redness or pain. Denies bug bites, poison ortega contact, trauma, fever, chills, n/v/diarrhea, joint pain/swelling. ER course was notable for: (1) oxygen saturation low (2) hyperkalemia (3) EKG with nsr, with [place] and paced beats, left axis deviation, diffuse nonspecific ST-T wave abnormality. Recent Travel: none PAST MEDICAL HISTORY: HTN HLD Afib on xarelto PVD CVA with residual L sided weakness and slurred speech COPD on home oxygen PAST SURGICAL HISTORY: right knee s/p ORIF right femur tamara placement s/p fracture - had infection took antibiotics for a year Thoracic aortic aneursym repair CAD s/p CABG s/p stents pacemaker Social History: Smoking: former smoker quit 2006 Alcohol: denies Drugs: denies Family History: [place] Allergies prednisone Allergy (Intermediate, Verified 04/29/16 10:41) "too wired" HOME MEDICATIONS: Home Medications Medication Instructions Recorded Amlodipine Besylate [Norvasc -] 5 mg PO DAILY 04/22/16 Budesonide/Formeterol Fumarate 2 inh PO BID 04/22/16 [SYMBICORT 160/4.5mcg -] Duloxetine HCl 60 mg PO DAILY 04/22/16 Ferrous Sulfate 325 mg PO DAILY 04/22/16 Furosemide [Lasix] 20 mg PO DAILY 04/22/16 Lisinopril 10 mg PO DAILY 04/22/16 Metoprolol Succinate [Toprol Xl] 50 mg PO DAILY 04/22/16 Pregabalin [Lyrica] 100 mg PO BID 04/22/16 Rivaroxaban [Xarelto -] 20 mg PO DAILY 04/22/16 Tamsulosin HCl [Flomax] 0.4 mg PO DAILY 04/22/16 Zolpidem Tartrate 10 mg PO HS 04/22/16 Albuterol 0.083% Nebulizer Suki 1 amp NEB Q6HPO #60 amp 04/28/16 [Ventolin 0.083% Nebulizer Soln -] Donepezil HCl 5 mg PO DAILY 05/27/16 REVIEW OF SYSTEMS CONSTITUTIONAL: Absent: fever, chills, diaphoresis, generalized weakness, malaise, loss of appetite, weight change HEENT: Absent: rhinorrhea, nasal congestion, throat pain, throat swelling, difficulty swallowing, mouth swelling, ear pain, eye pain, visual changes CARDIOVASCULAR: Absent: chest pain, syncope, palpitations, irregular heart rate, lightheadedness , peripheral edema RESPIRATORY: Absent: cough, shortness of breath, dyspnea with exertion, orthopnea, wheezing, stridor, hemoptysis GASTROINTESTINAL: Absent: abdominal pain, abdominal distension, nausea, vomiting, diarrhea, constipation, melena, hematochezia GENITOURINARY: Absent: dysuria, frequency, urgency, hesitancy, hematuria, flank pain, genital pain MUSCULOSKELETAL: Absent: myalgia, arthralgia, joint swelling, back pain, neck pain SKIN: Absent: rash, itching, pallor HEMATOLOGIC/IMMUNOLOGIC: Absent: easy bleeding, easy bruising, lymphadenopathy, frequent infections ENDOCRINE: Absent: unexplained weight gain, unexplained weight loss, heat intolerance, cold intolerance NEUROLOGIC: Absent: headache, focal weakness or paresthesias, dizziness, unsteady gait, seizure, mental status changes, bladder or bowel incontinence PSYCHIATRIC: Absent: anxiety, depression, suicidal or homicidal ideation, hallucinations. PHYSICAL EXAMINATION GENERAL: Awake, alert, and fully oriented, in no acute distress. HEAD: Normal with no signs of trauma. EYES: anisorca - fixed defect in left pupil, extraocular movements intact, sclera anicteric, conjunctiva clear. No lid lag. EARS, NOSE, THROAT: Ears normal, nares patent, oropharynx clear without exudates. dentures in place. dry mucous membranes. NECK: Normal range of motion, supple without lymphadenopathy, JVD, or masses. LUNGS: Breath sounds equal, clear to auscultation bilaterally. No wheezes, and no crackles. No accessory muscle use. HEART: Regular rate and rhythm, normal S1 and S2 without murmur, rub or gallop. ABDOMEN: Soft, nontender, not distended, normoactive bowel sounds, no guarding, no rebound, no masses. MUSCULOSKELETAL: Normal range of motion at all joints. No bony deformities or tenderness. No CVA tenderness. UPPER EXTREMITIES: 2+ pulses, warm, well-perfused. + clubbing. No peripheral edema. hand hat blocker R>L, equal strength in biceps/triceps/hips. LOWER EXTREMITIES: 2+ pulses, warm, well-perfused. No calf tenderness. No peripheral edema. right knee with well-healed scar. midtibia to ankle with erythem band like surrounding, few excoriations, warmer in comparison to left le, ttp. NEUROLOGICAL: Cranial nerves II-XII intact. speech normal tone, rhythm, slurred. PSYCHIATRIC: Cooperative. Good eye contact. Appropriate mood and affect. SKIN: few raised macular lesions scattered on back ttp mild surrounding erythema , no discharge. Active Medications Acetaminophen (Tylenol -) 650 mg PO Q4H PRN PRN Reason: FEVER OR PAIN Albuterol Sulfate (Ventolin 0.083% Nebulizer Soln -) 1 amp NEB QIDR [facility] Last Admin: 05/27/16 17:51 Dose: 1 amp Amlodipine Besylate (Norvasc -) 5 mg PO DAILY [facility] Budesonide/Formoterol Fumarate (Symbicort 160/4.5mcg -) 2 puff IH BID [facility] Donepezil HCl (Aricept -) 5 mg PO DAILY [facility] Duloxetine HCl (Cymbalta -) 60 mg PO DAILY [facility] Ferrous Sulfate (Feosol -) 325 mg PO DAILY [facility] Furosemide (Lasix -) 20 mg PO DAILY [facility] Sodium Chloride (Normal Saline -) 1,000 mls @ 75 mls/hr IV ASDIR [facility] Last Admin: 05/27/16 18:44 Dose: 75 mls/hr Lisinopril (Prinivil) 10 mg PO DAILY [facility] Metoprolol Succinate (Toprol Xl -) 50 mg PO DAILY [facility] Pregabalin (Lyrica -) 100 mg PO BID [facility] Last Admin: 05/27/16 21:52 Dose: 100 mg Rivaroxaban (Xarelto -) 20 mg PO DAILY [facility] Tamsulosin HCl (Flomax -) 0.4 mg PO DAILY [facility] Zolpidem Tartrate (Ambien -) 5 mg PO HS PRN ASSESSMENT/PLAN: 75 yr old man with afib, CVA with residual deficits, HTN, right orif with hardware complicated by infection, admitted for right le cellulitis. - concern for MRSA and hardware involvement - no DVT on duplex #Right le cellulitis failed outpatient po abx, r/o hardware involvement - ID consulted for vanc, zosyn - bld cx pending, esr, crp - xray pending #DUARTE (baseline 1.1) -send urine studies for further evaluation - IVF for prerenal cause, on lasix -renal U/S for further evaluation -avoid nephrotoxic medications #COPD - symbicort, ventolin - continuous nasal cannula 3lpm #Hyperkalemia -repeat potassium #HTN - norvasc, lisinopril, toprol - hold lasix, restart if renal fx improves #Afib - xarelto 20mg po #left arm neuropathy - cymbalta, lyrica -DVTon xarelto - Diet: low sodium Visit type - Emergency Visit Emergency Visit: No - New Patient This patient is new to me today: No - Critical Care Critical Care patient: No
[2016-05-27] MEDS ORDERED: ZOLPIDEM TARTRATE 5 MG TABLET PO PRN (17:43)
[2016-05-27] MEDS: ALBUTEROL SO4 0.083% IH SOL 2.5 MG/3 ML VIAL.NEB. NEB SCH (17:51)
--- NOTE | 2016-05-27 19:00 | EKG ---
Test Reason : Blood Pressure : / mmHG Vent. Rate : 079 BPM Atrial Rate : 079 BPM P-R Int : 140 ms QRS Dur : 136 ms QT Int : 424 ms P-R-T Axes : 068 -78 176 degrees QTc Int : 486 ms POOR DATA QUALITY, INTERPRETATION MAY BE ADVERSELY AFFECTED SINUS RHYTHM WITH FREQUENT ventricular-paced complexes AND WITH OCCASIONAL PREMATURE VENTRICULAR COMPLEXES LEFT AXIS DEVIATION T WAVE ABNORMALITY, CONSIDER LATERAL ISCHEMIA ABNORMAL ECG WHEN COMPARED WITH ECG OF 23-APR-2016 08:16, PREMATURE VENTRICULAR COMPLEXES ARE NOW PRESENT VENT. RATE HAS INCREASED BY 15 BPM Confirmed by LEIF BOOKER MD ([id number]) on 05/27/2016 6:59:45 PM Referred By: Confirmed By:LEIF BOOKER MD
[2016-05-27] MEDS: PREGABALIN 100 MG CAPSULE PO SCH (21:52)
[2016-05-27] MEDS: BUDESONIDE/FORMETEROL FUMARATE 160/4.5 mcg INHALER IH SCH (22:10)
[2016-05-28 07:07] LABS: BASOPHIL 0.9 % (0-2.0); EOSINOPHIL 3.7 % (0-4.5); MCH 28.8 pg (25.7-33.7); MCHC 32.6 g/dl (32.0-35.9); MEAN CELL VOLUME 88.4 fl (80-96); MEAN PLT VOLUME 9.1 fl (7.5-11.1); NEUTROPHILS 68.7 % (42.8-82.8); PLATELET COUNT 158 K/MM3 (134-434); RDW 16.5 % (11.9-15.9); WHITE BLOOD COUNT 5.4 K/mm3 (4.0-10.0)
[2016-05-28 07:44] LABS: ALBUMIN 2.8 g/dl (3.4-5.0); BILIRUBIN,TOTAL 0.3 mg/dL (0.2-1.0); CALCIUM 8.1 mg/dL (8.5-10.1); CREATININE 1.2 mg/dL (0.7-1.3); TOT PROT 5.7 g/dl (6.4-8.2)
[2016-05-28 08:39] LABS: C-REACTIVE PROTEIN 1.2 MG/DL (0.00-0.3)
[2016-05-28 09:36] LABS: OSMOLALITY,SERUM 298 mosm/kg (278-305)
--- NOTE | 2016-05-28 09:38 | PN ---
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 (short form) - Note 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: ID Full note reviewed Selected Entries 05/27/16 05/27/16 11:32 17:45 Temperature 98.1 F Pulse Rate 76 Respiratory 18 Rate Blood Pressure 120/71 Microbiology Laboratory Tests 05/28/16 05/28/16 06:20 06:20 WBC 5.4 RBC 4.91 Plt Count 158 BUN 18 Creatinine 1.2 Creat Clearance w eGFR 58.71 Assessment Cellulitis RLE uncomplicated Plan Cefazolin 1 gr q8 H Elevate Switch to Keflex 48-72 hours Ryder ARREDONDO Problem List - Problems (1) Cellulitis of right leg Code(s): L03.115 - CELLULITIS OF RIGHT LOWER LIMB
--- NOTE | 2016-05-28 09:42 | PN ---
Physical Exam: SUBJECTIVE: Patient seen and examined c/o pain and itching in right lower leg. denies fevers, chest pain, sob. at bedside: he had the lesion on his back and redness on his chest prior to previous hospitalization for COPD, when he was given prednisone the rash and erythema improved but once she started to taper the patient the rash returned. OBJECTIVE: Vital Signs Period Temp Pulse Resp BP Sys/Varghese Pulse Ox Last 24 Hr 97.8 F-98.2 F 61-76 18-22 109-137/68-86 87-89 GENERAL: The patient is awake, alert, and fully oriented, in no acute distress. EYES: anisorca - fixed defect in left pupil, extraocular movements intact ENT: Ears normal, nares patent, oropharynx clear without exudates, moist mucous membranes. NECK: Trachea midline, full range of motion, supple. LUNGS: Breath sounds equal, clear to auscultation bilaterally, no wheezes, no crackles, no accessory muscle use. HEART: irregular rhythm, S1, S2 without murmur, rub or gallop. ABDOMEN: Soft, nontender, nondistended, normoactive bowel sounds, no guarding, no rebound EXTREMITIES: right knee with well-healed scar. midtibia to ankle with erythem band like surrounding, few excoriations, warmer in comparison to left le, ttp. SKIN: few raised macular lesions scattered on back ttp mild surrounding erythema , no discharge. Laboratory Results - last 24 hr 05/28/16 05/28/16 05/28/16 03:15 03:15 06:20 WBC 5.4 RBC 4.91 Hgb 14.2 D Hct 43.4 MCV 88.4 MCHC 32.6 RDW 16.5 H Plt Count 158 MPV 9.1 Neutrophils % 68.7 Lymphocytes % 16.8 D Monocytes % 9.9 Eosinophils % 3.7 Basophils % 0.9 Sodium Potassium Chloride Carbon Dioxide Anion Gap BUN Creatinine Creat Clearance w eGFR POC Glucometer Random Glucose Serum Osmolality 298 Calcium Total Bilirubin AST ALT Alkaline Phosphatase C-Reactive Protein Total Protein Albumin Urine Osmolality 592 Ur Random Sodium 78 Ur Random Potassium 37.5 Ur Random Chloride 87 05/28/16 05/28/16 05/28/16 06:20 06:20 07:07 WBC RBC Hgb Hct MCV MCHC RDW Plt Count MPV Neutrophils % Lymphocytes % Monocytes % Eosinophils % Basophils % Sodium 146 H Potassium 4.1 D Chloride 114 H Carbon Dioxide 27 Anion Gap 5 L BUN 18 Creatinine 1.2 Creat Clearance w eGFR 58.71 POC Glucometer 83 Random Glucose 80 Serum Osmolality Calcium 8.1 L Total Bilirubin 0.3 D AST 14 L D ALT 11 L D Alkaline Phosphatase 50 C-Reactive Protein 1.2 H Cancelled Total Protein 5.7 L D Albumin 2.8 L Urine Osmolality Ur Random Sodium Ur Random Potassium Ur Random Chloride Active Medications Acetaminophen (Tylenol -) 650 mg PO Q4H PRN PRN Reason: FEVER OR PAIN Last Admin: 05/28/16 11:35 Dose: 650 mg Albuterol Sulfate (Ventolin 0.083% Nebulizer Soln -) 1 amp NEB QIDR [facility] Last Admin: 05/28/16 11:01 Dose: 1 amp Amlodipine Besylate (Norvasc -) 5 mg PO DAILY [facility] Last Admin: 05/28/16 11:28 Dose: 5 mg Budesonide/Formoterol Fumarate (Symbicort 160/4.5mcg -) 2 puff IH BID [facility] Last Admin: 05/28/16 11:29 Dose: 2 puff Diphenhydramine HCl (Benadryl -) 25 mg PO Q6H PRN PRN Reason: FOR ITCHING Donepezil HCl (Aricept -) 5 mg PO DAILY [facility] Last Admin: 05/28/16 11:28 Dose: 5 mg Duloxetine HCl (Cymbalta -) 60 mg PO DAILY [facility] Last Admin: 05/28/16 11:27 Dose: 60 mg Ferrous Sulfate (Feosol -) 325 mg PO DAILY [facility] Last Admin: 05/28/16 11:28 Dose: 325 mg Cefazolin Sodium (Ancef 1gm Ivpb (Pre-Docked)) 50 mls @ 100 mls/hr IVPB Q8H-IV [facility] Last Admin: 05/28/16 11:15 Dose: 100 mls/hr Lisinopril (Prinivil) 10 mg PO DAILY [facility] Last Admin: 05/28/16 11:28 Dose: 10 mg Metoprolol Succinate (Toprol Xl -) 50 mg PO DAILY [facility] Last Admin: 05/28/16 11:28 Dose: 50 mg Pregabalin (Lyrica -) 100 mg PO BID [facility] Last Admin: 05/28/16 11:27 Dose: 100 mg Rivaroxaban (Xarelto -) 20 mg PO DAILY [facility] Last Admin: 05/28/16 11:27 Dose: 20 mg Tamsulosin HCl (Flomax -) 0.4 mg PO DAILY [facility] Last Admin: 05/28/16 11:28 Dose: 0.4 mg Zolpidem Tartrate (Ambien -) 5 mg PO HS PRN ASSESSMENT/PLAN: 75 yr old man with afib, CVA with residual deficits, HTN, right orif with hardware complicated by infection in the past, admitted for right le cellulitis and rash. #Right le cellulitis failed outpatient po abx, r/o hardware involvement - knee xray with no sign of loosening of hardware - ID consult, Dr. Soler note appreciated; uncomplicated cellulitis; ancef 1gm q8 - bld cx NGTD, esr and crp mildly elevated #DUARTE (baseline 1.1), improved with ivf, restart home medication lasix -renal U/S; shows renal cysts in right and left kidney #COPD - symbicort, ventolin - continuous nasal cannula 3lpm #Hyperkalemia - resolved #HTN - norvasc, lisinopril, toprol, lasix #Afib - xarelto 20mg po #left arm neuropathy - cymbalta, lyrica -DVT on xarelto - Diet: low sodium Visit type - Emergency Visit Emergency Visit: No - New Patient This patient is new to me today: No - Critical Care Critical Care patient: No
--- NOTE | 2016-05-28 09:47 | PN ---
Teaching Attending Note Name of Resident: Armando Allen ATTENDING PHYSICIAN STATEMENT I saw and evaluated the patient. I reviewed the resident's note and discussed the case with the resident. I agree with the resident's findings and plan as documented. Patient continues to have itching as per . No fever ro chills, no shortness of breath Vital Signs Temperature 98.2 F 05/28/16 06:00 Pulse Rate 64 05/28/16 06:00 Respiratory Rate 18 05/28/16 06:00 Blood Pressure 131/69 05/28/16 06:00 O2 Sat by Pulse Oximetry (%) 88 L 05/27/16 21:00 CBCD WBC 5.4 K/mm3 (4.0-10.0) 05/28/16 06:20 RBC 4.91 M/mm3 (4.00-5.60) 05/28/16 06:20 Hgb 14.2 GM/dL (11.7-16.9) D 05/28/16 06:20 Hct 43.4 % (35.4-49) 05/28/16 06:20 MCV 88.4 fl (80-96) 05/28/16 06:20 MCHC 32.6 g/dl (32.0-35.9) 05/28/16 06:20 RDW 16.5 % (11.9-15.9) H 05/28/16 06:20 Plt Count 158 K/MM3 (134-434) 05/28/16 06:20 MPV 9.1 fl (7.5-11.1) 05/28/16 06:20 CMP Sodium 146 mmol/L (136-145) H 05/28/16 06:20 Potassium 4.1 mmol/L (3.5-5.1) D 05/28/16 06:20 Chloride 114 mmol/L (98-107) H 05/28/16 06:20 Carbon Dioxide 27 mmol/L (21-32) 05/28/16 06:20 Anion Gap 5 (8-16) L 05/28/16 06:20 BUN 18 mg/dL (7-18) 05/28/16 06:20 Creatinine 1.2 mg/dL (0.7-1.3) 05/28/16 06:20 Creat Clearance w eGFR 58.71 (>60) 05/28/16 06:20 Random Glucose 80 mg/dL (74-106) 05/28/16 06:20 Calcium 8.1 mg/dL (8.5-10.1) L 05/28/16 06:20 Total Bilirubin 0.3 mg/dL (0.2-1.0) D 05/28/16 06:20 AST 14 U/L (15-37) L D 05/28/16 06:20 ALT 11 U/L (12-78) L D 05/28/16 06:20 Alkaline Phosphatase 50 U/L (45-117) 05/28/16 06:20 Total Protein 5.7 g/dl (6.4-8.2) L D 05/28/16 06:20 Albumin 2.8 g/dl (3.4-5.0) L 05/28/16 06:20 CARDIAC ENZYMES Creatine Kinase 147 IU/L (39-308) 05/27/16 11:48 Troponin I < 0.02 ng/ml (0.00-0.05) 05/27/16 11:48 Current Medications Generic Name Dose Route Start Last Admin Trade Name Freq PRN Reason Stop Dose Admin Acetaminophen 650 mg 05/27/16 17:22 Tylenol - PO Q4H PRN FEVER OR PAIN Albuterol Sulfate 1 amp 05/27/16 18:00 05/27/16 17:51 Ventolin 0.083% Nebulizer Soln - NEB 1 amp QIDR [facility] Administration Amlodipine Besylate 5 mg 05/28/16 10:00 Norvasc - PO DAILY [facility] Budesonide/Formoterol Fumarate 2 puff 05/27/16 22:00 05/27/16 22:10 Symbicort 160/4.5mcg - IH 2 puff BID [facility] Administration Donepezil HCl 5 mg 05/28/16 10:00 Aricept - PO DAILY [facility] Duloxetine HCl 60 mg 05/28/16 10:00 Cymbalta - PO DAILY [facility] Ferrous Sulfate 325 mg 05/28/16 10:00 Feosol - PO DAILY [facility] Cefazolin Sodium 1 gm/ 50 mls @ 100 mls/hr 05/28/16 10:00 Dextrose IVPB Q8H-IV [facility] Lisinopril 10 mg 05/28/16 10:00 Prinivil PO DAILY [facility] Metoprolol Succinate 50 mg 05/28/16 10:00 Toprol Xl - PO DAILY [facility] Pregabalin 100 mg 05/27/16 22:00 05/27/16 21:52 Lyrica - PO 100 mg BID [facility] Administration Rivaroxaban 20 mg 05/28/16 10:00 Xarelto - PO DAILY [facility] Tamsulosin HCl 0.4 mg 05/28/16 10:00 Flomax - PO DAILY [facility] Zolpidem Tartrate 5 mg 05/27/16 17:43 Ambien - PO HS PRN Home Medications Medication Instructions Recorded Amlodipine Besylate [Norvasc -] 5 mg PO DAILY 04/22/16 Budesonide/Formeterol Fumarate 2 inh PO BID 04/22/16 [SYMBICORT 160/4.5mcg -] Duloxetine HCl 60 mg PO DAILY 04/22/16 Ferrous Sulfate 325 mg PO DAILY 04/22/16 Furosemide [Lasix] 20 mg PO DAILY 04/22/16 Lisinopril 10 mg PO DAILY 04/22/16 Metoprolol Succinate [Toprol Xl] 50 mg PO DAILY 04/22/16 Pregabalin [Lyrica] 100 mg PO BID 04/22/16 Rivaroxaban [Xarelto -] 20 mg PO DAILY 04/22/16 Tamsulosin HCl [Flomax] 0.4 mg PO DAILY 04/22/16 Zolpidem Tartrate 10 mg PO HS 04/22/16 Albuterol 0.083% Nebulizer Suki 1 amp NEB Q6HPO #60 amp 04/28/16 [Ventolin 0.083% Nebulizer Soln -] Donepezil HCl 5 mg PO DAILY 05/27/16 EKG- paced rhythm ASSESSMENT AND PLAN: # Acute RLE Cellulitis on Cefazolin 1gm IV q8 H ; Elevate RLE, as per ID switch to Keflex 48-72 hours; duplex of lower ext negative, did not respond to PO abx( failed outpatient therapy). S/p Vancomycin and zosyn adminstration in the ER. #DUARTE on CKD on IVF continue for now #s/p Hyperkalemia -no EKG changes noted, s/p kayexalate one dose PO # HTN hx continue home meds # Hx of Stroke on Xarelto continue -DVT ppx- moderate risk on xarelto
[2016-05-28] MEDS ORDERED: FUROSEMIDE 20 MG TABLET (FP) PO SCH (10:00)
[2016-05-28] MEDS: ALBUTEROL SO4 0.083% IH SOL 2.5 MG/3 ML VIAL.NEB. NEB SCH ×2 (11:01→18:08)
[2016-05-28] MEDS: CEFAZOLIN (PRE-DOCKED) 50 ML IVPB SCH ×2 (11:15→18:00)
[2016-05-28] MEDS: DULoxetine HCL 30 MG CAPSULE.DR (FP) PO SCH (11:27)
[2016-05-28] MEDS: RIVAROXABAN 20 MG TABLET PO SCH (11:27)
[2016-05-28] MEDS: PREGABALIN 100 MG CAPSULE PO SCH ×2 (11:27→21:29)
[2016-05-28] MEDS: DONEPEZIL HCL 5 MG TABLET (FP) PO SCH (11:28)
[2016-05-28] MEDS: LISINOPRIL 10 MG TABLET (FP) PO SCH (11:28)
[2016-05-28] MEDS: FERROUS SO4 325 MG TABLET (FP) PO SCH (11:28)
[2016-05-28] MEDS: amLODIPine BESYLATE 5 MG TABLET (FP) PO SCH (11:28)
[2016-05-28] MEDS: TAMSULOSIN HCL 0.4 MG CAP.ER.24H (FP) PO SCH (11:28)
[2016-05-28] MEDS: METOPROLOL SUCCINATE 50 MG TAB.SR.24H (FP) PO SCH (11:28)
[2016-05-28] MEDS: BUDESONIDE/FORMETEROL FUMARATE 160/4.5 mcg INHALER IH SCH ×2 (11:29→21:29)
[2016-05-28] MEDS: ACETAMINOPHEN 325 MG TABLET (FP) PO PRN (11:35)
--- NOTE | 2016-05-28 20:17 | CONS ---
DATE OF CONSULTATION: DATE OF DICTATION: 05/28/2016 This is a 75-year-old male who presents to the emergency room for evaluation of cellulitis of the right lower extremity. He was apparently seen by Dr. Benz April [id number] for exacerbation of COPD. PAST MEDICAL HISTORY: Includes abdominal aortic aneurysm which had to be endovascularly repaired, status post CVA, permanent pacemaker, COPD on home oxygen, and atrial fibrillation. SURGICAL HISTORY: Includes CABG 2013, endovascular AAA repair, right knee replacement several years ago with subsequent knee infection which finally healed, requiring a V.A.C. dressing. The patient had no fever or chills and no history of trauma to the right lower extremity. His symptoms had been present for 2-3 days. He was initially prescribed Keflex, but because of redness and pain, he came in. He had been working in his garden but denied any trauma or insect bites. HOME MEDICATIONS: Include amlodipine, Symbicort, iron, Lasix, lisinopril, metoprolol, Xarelto, donepezil ALLERGIES: Unknown. SOCIAL HISTORY: Former smoker, quit 2006. No history of alcohol use. . Lives at home. No travel. FAMILY HISTORY: Reviewed and noncontributory. REVIEW OF SYSTEMS: Respiratory: No cough, shortness of breath, dyspnea, wheezing. Cardiac: No chest pain, palpitations, syncope. Gastrointestinal: No abdominal pain, abdominal distention, nausea, vomiting. Genitourinary: No dysuria, hematuria or urinary frequency. Skin: Erythema of the right lower extremity. PHYSICAL EXAMINATION: General: He was a [id number] male in no acute distress. Vital signs: Temperature was 98.2, pulse 64, blood pressure 130/69, respirations 18. Neck: Supple without adenopathy. Lungs: Clear to percussion and auscultation. Heart: S1, S2 without murmur. Abdomen: Soft, nontender without hepatosplenomegaly. Extremities: Reveal confluent erythema of the right lower extremity with well-demarcated borders extending to the right knee with dry, cracked skin noted diffusely. The white count is 5.4, hemoglobin 14.2, platelets of 158. INR 1.24. BUN of 18, creatinine 1.2. Two sets of blood cultures pending. Vascular study shows no DVT. ASSESSMENT: Uncomplicated cellulitis of the right lower extremity. History of an infected open reduction internal fixation status post right femur tamara placement status post fracture. Had been antibiotics in the past. Currently looks like uncomplicated cellulitis of the right lower extremity in the absence of any fever or leukocytosis. Would empirically treat him with cefazolin 1 g IV every 8 hours with elevation of the leg and prompt switch to oral antibiotics in 48-72 hours. LEYLA ANDREW M.D. [id number]
[2016-05-29] MEDS: ACETAMINOPHEN 325 MG TABLET (FP) PO PRN (00:18)
[2016-05-29] MEDS: CEFAZOLIN (PRE-DOCKED) 50 ML IVPB SCH ×3 (01:46→17:39)
[2016-05-29] MEDS: ALBUTEROL SO4 0.083% IH SOL 2.5 MG/3 ML VIAL.NEB. NEB SCH ×4 (06:35→17:35)
[2016-05-29] MEDS ORDERED: PT OWN MED DRAWER 7, Y5N ONE (08:28)
[2016-05-29] MEDS: BUDESONIDE/FORMETEROL FUMARATE 160/4.5 mcg INHALER IH SCH ×2 (10:30→21:05)
[2016-05-29] MEDS: DULoxetine HCL 30 MG CAPSULE.DR (FP) PO SCH (10:38)
[2016-05-29] MEDS: TAMSULOSIN HCL 0.4 MG CAP.ER.24H (FP) PO SCH (10:39)
[2016-05-29] MEDS: PREGABALIN 100 MG CAPSULE PO SCH ×2 (10:39→21:05)
[2016-05-29] MEDS: RIVAROXABAN 20 MG TABLET PO SCH (10:39)
[2016-05-29] MEDS: DONEPEZIL HCL 5 MG TABLET (FP) PO SCH (10:39)
[2016-05-29] MEDS: FERROUS SO4 325 MG TABLET (FP) PO SCH (10:40)
[2016-05-29] MEDS: diphenhydrAMINE HCL 25 MG CAPSULE (FP) PO PRN (11:52)
--- NOTE | 2016-05-29 11:57 | PN ---
Physical Exam: SUBJECTIVE: Patient seen and examined. c/o itching and worsening of erythema in right leg, now present on left foot. discussed with Dr. Solomon, pt was given keflex prior to hospitalization. OBJECTIVE: Vital Signs Period Temp Pulse Resp BP Sys/Varghese Pulse Ox Last 24 Hr 97.4 F-98.5 F 61-71 18-18 119-130/71-76 90 GENERAL: The patient is awake, alert, and fully oriented, in no acute distress. EYES: anisorca - fixed defect in left pupil, extraocular movements intact ENT: oropharynx clear without exudates, moist mucous membranes. NECK: Trachea midline, full range of motion, supple. LUNGS: Breath sounds equal, clear to auscultation bilaterally, no wheezes, no crackles, no accessory muscle use. HEART: irregular rhythm, S1, S2 without murmur ABDOMEN: Soft, nontender, nondistended, normoactive bowel sounds, no guarding EXTREMITIES: right knee with well-healed scar. midtibia to ankle with erythema band like surrounding lower leg, few excoriations, warmer in comparison to left le, edema 1+, small area of skin broken with very scant serous crusting medially. left lateral foot dorsally with small area of erythema and behind left knee. SKIN: few raised macular lesions scattered on back ttp mild surrounding erythema , no discharge. erythema with flat small macules on right shoulder. Active Medications Active Medications Acetaminophen (Tylenol -) 650 mg PO Q4H PRN PRN Reason: FEVER OR PAIN Last Admin: 05/29/16 00:18 Dose: 650 mg Albuterol Sulfate (Ventolin 0.083% Nebulizer Soln -) 1 amp NEB QIDR [facility] Last Admin: 05/29/16 12:12 Dose: 1 amp Amlodipine Besylate (Norvasc -) 5 mg PO DAILY [facility] Last Admin: 05/29/16 12:47 Dose: 5 mg Budesonide/Formoterol Fumarate (Symbicort 160/4.5mcg -) 2 puff IH BID [facility] Last Admin: 05/29/16 10:30 Dose: 2 puff Diphenhydramine HCl (Benadryl -) 25 mg PO Q6H PRN PRN Reason: FOR ITCHING Last Admin: 05/29/16 11:52 Dose: 25 mg Donepezil HCl (Aricept -) 5 mg PO DAILY [facility] Last Admin: 05/29/16 10:39 Dose: 5 mg Duloxetine HCl (Cymbalta -) 60 mg PO DAILY [facility] Last Admin: 05/29/16 10:38 Dose: 60 mg Ferrous Sulfate (Feosol -) 325 mg PO DAILY [facility] Last Admin: 05/29/16 10:40 Dose: 325 mg Furosemide (Lasix -) 20 mg PO DAILY [facility] Last Admin: 05/29/16 12:47 Dose: 20 mg Hydrocortisone (Hytone 0.5% Cream -) 1 applic TP DAILY [facility] Cefazolin Sodium (Ancef 1gm Ivpb (Pre-Docked)) 50 mls @ 100 mls/hr IVPB Q8H-IV [facility] Last Admin: 05/29/16 10:38 Dose: 100 mls/hr Lisinopril (Prinivil) 10 mg PO DAILY [facility] Last Admin: 05/29/16 12:47 Dose: 10 mg Metoprolol Succinate (Toprol Xl -) 50 mg PO DAILY [facility] Last Admin: 05/29/16 12:48 Dose: 50 mg Pregabalin (Lyrica -) 100 mg PO BID [facility] Last Admin: 05/29/16 10:39 Dose: 100 mg Rivaroxaban (Xarelto -) 20 mg PO DAILY [facility] Last Admin: 05/29/16 10:39 Dose: 20 mg Tamsulosin HCl (Flomax -) 0.4 mg PO DAILY [facility] Last Admin: 05/29/16 10:39 Dose: 0.4 mg Zolpidem Tartrate (Ambien -) 5 mg PO HS PRN r/o hardware involvement - knee xray with no sign of loosening of hardware ASSESSMENT/PLAN: 75 yr old man with afib, CVA with residual deficits, HTN, right orif with hardware complicated by infection in the past, admitted for right le cellulitis and rash. #Right le cellulitis failed outpatient po abx - uncomplicated - ancef 1gm q8 -- started 05/28 - bandryl for itching - ID consult, Dr. Benz note appreciated; likely superinfection of rash, recommend hydrocortisone cream until dermatology consulted #COPD - symbicort, ventolin - continuous nasal cannula 3lpm #HTN - norvasc, lisinopril, toprol, lasix #Afib - xarelto 20mg po #left arm neuropathy - cymbalta, lyrica -DVT on xarelto - Diet: low sodium Visit type - Emergency Visit Emergency Visit: No - New Patient This patient is new to me today: No - Critical Care Critical Care patient: No
--- NOTE | 2016-05-29 12:36 | PN ---
Teaching Attending Note Name of Resident: Armando Allen ATTENDING PHYSICIAN STATEMENT I saw and evaluated the patient. I reviewed the resident's note and discussed the case with the resident. I agree with the resident's findings and plan as documented. Patient's at bedside, patient continues to have pruritis, also increased erythema and swelling of RLE. Vital Signs Temperature 97.4 F L 05/29/16 06:00 Pulse Rate 61 05/29/16 06:00 Respiratory Rate 18 05/29/16 06:00 Blood Pressure 119/71 05/29/16 06:00 O2 Sat by Pulse Oximetry (%) 90 L 05/28/16 21:00 CBCD WBC 5.4 K/mm3 (4.0-10.0) 05/28/16 06:20 RBC 4.91 M/mm3 (4.00-5.60) 05/28/16 06:20 Hgb 14.2 GM/dL (11.7-16.9) D 05/28/16 06:20 Hct 43.4 % (35.4-49) 05/28/16 06:20 MCV 88.4 fl (80-96) 05/28/16 06:20 MCHC 32.6 g/dl (32.0-35.9) 05/28/16 06:20 RDW 16.5 % (11.9-15.9) H 05/28/16 06:20 Plt Count 158 K/MM3 (134-434) 05/28/16 06:20 MPV 9.1 fl (7.5-11.1) 05/28/16 06:20 CMP Sodium 146 mmol/L (136-145) H 05/28/16 06:20 Potassium 4.1 mmol/L (3.5-5.1) D 05/28/16 06:20 Chloride 114 mmol/L (98-107) H 05/28/16 06:20 Carbon Dioxide 27 mmol/L (21-32) 05/28/16 06:20 Anion Gap 5 (8-16) L 05/28/16 06:20 BUN 18 mg/dL (7-18) 05/28/16 06:20 Creatinine 1.2 mg/dL (0.7-1.3) 05/28/16 06:20 Creat Clearance w eGFR 58.71 (>60) 05/28/16 06:20 Random Glucose 80 mg/dL (74-106) 05/28/16 06:20 Calcium 8.1 mg/dL (8.5-10.1) L 05/28/16 06:20 Total Bilirubin 0.3 mg/dL (0.2-1.0) D 05/28/16 06:20 AST 14 U/L (15-37) L D 05/28/16 06:20 ALT 11 U/L (12-78) L D 05/28/16 06:20 Alkaline Phosphatase 50 U/L (45-117) 05/28/16 06:20 Total Protein 5.7 g/dl (6.4-8.2) L D 05/28/16 06:20 Albumin 2.8 g/dl (3.4-5.0) L 05/28/16 06:20 CARDIAC ENZYMES Creatine Kinase 147 IU/L (39-308) 05/27/16 11:48 Troponin I < 0.02 ng/ml (0.00-0.05) 05/27/16 11:48 Current Medications Generic Name Dose Route Start Last Admin Trade Name Freq PRN Reason Stop Dose Admin Acetaminophen 650 mg 05/27/16 17:22 05/29/16 00:18 Tylenol - PO 650 mg Q4H PRN Administration FEVER OR PAIN Albuterol Sulfate 1 amp 05/27/16 18:00 05/29/16 12:12 Ventolin 0.083% Nebulizer Soln - NEB 1 amp QIDR [facility] Administration Amlodipine Besylate 5 mg 05/28/16 10:00 05/28/16 11:28 Norvasc - PO 5 mg DAILY [facility] Administration Budesonide/Formoterol Fumarate 2 puff 05/27/16 22:00 05/28/16 21:29 Symbicort 160/4.5mcg - IH 2 puff BID [facility] Administration Diphenhydramine HCl 25 mg 05/28/16 16:59 05/29/16 11:52 Benadryl - PO 25 mg Q6H PRN Administration FOR ITCHING Donepezil HCl 5 mg 05/28/16 10:00 05/29/16 10:39 Aricept - PO 5 mg DAILY [facility] Administration Duloxetine HCl 60 mg 05/28/16 10:00 05/29/16 10:38 Cymbalta - PO 60 mg DAILY [facility] Administration Ferrous Sulfate 325 mg 05/28/16 10:00 05/29/16 10:40 Feosol - PO 325 mg DAILY [facility] Administration Furosemide 20 mg 05/29/16 10:00 Lasix - PO DAILY [facility] Cefazolin Sodium 50 mls @ 100 mls/hr 05/28/16 10:00 05/29/16 10:38 Ancef 1gm Ivpb (Pre-Docked) IVPB 100 mls/hr Q8H-IV [facility] Administration Lisinopril 10 mg 05/28/16 10:00 05/28/16 11:28 Prinivil PO 10 mg DAILY [facility] Administration Metoprolol Succinate 50 mg 05/28/16 10:00 05/28/16 11:28 Toprol Xl - PO 50 mg DAILY [facility] Administration Pregabalin 100 mg 05/27/16 22:00 05/29/16 10:39 Lyrica - PO 100 mg BID [facility] Administration Rivaroxaban 20 mg 05/28/16 10:00 05/29/16 10:39 Xarelto - PO 20 mg DAILY [facility] Administration Tamsulosin HCl 0.4 mg 05/28/16 10:00 05/29/16 10:39 Flomax - PO 0.4 mg DAILY [facility] Administration Zolpidem Tartrate 5 mg 05/27/16 17:43 Ambien - PO HS PRN Home Medications Medication Instructions Recorded Amlodipine Besylate [Norvasc -] 5 mg PO DAILY 04/22/16 Budesonide/Formeterol Fumarate 2 inh PO BID 04/22/16 [SYMBICORT 160/4.5mcg -] Duloxetine HCl 60 mg PO DAILY 04/22/16 Ferrous Sulfate 325 mg PO DAILY 04/22/16 Furosemide [Lasix] 20 mg PO DAILY 04/22/16 Lisinopril 10 mg PO DAILY 04/22/16 Metoprolol Succinate [Toprol Xl] 50 mg PO DAILY 04/22/16 Pregabalin [Lyrica] 100 mg PO BID 04/22/16 Rivaroxaban [Xarelto -] 20 mg PO DAILY 04/22/16 Tamsulosin HCl [Flomax] 0.4 mg PO DAILY 04/22/16 Zolpidem Tartrate 10 mg PO HS 04/22/16 Albuterol 0.083% Nebulizer Suki 1 amp NEB Q6HPO #60 amp 04/28/16 [Ventolin 0.083% Nebulizer Soln -] Donepezil HCl 5 mg PO DAILY 05/27/16 RLE: Increased erythema and swelling of right lower extremity EKG- paced rhythm ASSESSMENT AND PLAN: # Acute RLE Cellulitis on Cefazolin 1gm IV q8 H ; Discussed with ID due to increased redness and erythema of RLE , continue to Elevate RLE, duplex of lower ext negative, did not respond to PO abx( failed outpatient therapy). S/p Vancomycin and zosyn adminstration in the ER. As per ID patient continues to have skin pruritis and scrating himself , will get [employer] involve with his care. Added HC cream for Itch. #DUARTE on CKD : 1.4-->1.2 today creatinine #s/p Hyperkalemia -no EKG changes noted, s/p kayexalate x 1 # HTN hx continue home meds # Hx of Stroke on Xarelto continue # Hx of COPD continue meds. -DVT ppx- moderate risk on xarelto
[2016-05-29] MEDS: FUROSEMIDE 20 MG TABLET (FP) PO SCH (12:47)
[2016-05-29] MEDS: amLODIPine BESYLATE 5 MG TABLET (FP) PO SCH (12:47)
[2016-05-29] MEDS: LISINOPRIL 10 MG TABLET (FP) PO SCH (12:47)
[2016-05-29] MEDS: METOPROLOL SUCCINATE 50 MG TAB.SR.24H (FP) PO SCH (12:48)
--- NOTE | 2016-05-29 13:53 | PN ---
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 (short form) - Note 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: patient has itchy rash in patches on back , right forearm, left leg persistent erythema of RLE with scaly skin no fevers Vital Signs Period Temp Pulse Resp BP Sys/Varghese Pulse Ox Last 24 Hr 97.4 F-98.5 F 61-71 18-18 119-130/71-76 90 cor-rrr lungs clear abd soft,nt ext erythema of the RLE rash as above- CBC, BMP 05/28/16 06:20 05/28/16 06:20 Microbiology 05/27/16 12:10 Blood - Peripheral Venous Blood Culture - Preliminary NO GROWTH OBTAINED AFTER 48 HOURS, INCUBATION TO CONTINUE FOR 3 DAYS. 05/27/16 11:58 Blood - Peripheral Venous Blood Culture - Preliminary NO GROWTH OBTAINED AFTER 48 HOURS, INCUBATION TO CONTINUE FOR 3 DAYS. a/p I think the primary problem is the rash and the leg is from superinfection from the rash when I saw him in March he had patchy rash on his back (which he now has) and RLE itchy erythema everything resolved with steroids which he got for his COPD- she states rash started back after prednisone taper was completed would continue ancef for cellulitis derm consult add steroid cream to legs until seen by [facility] for itching d/w , d/w Dr Richardson
[2016-05-29] MEDS: HYDROCORTISONE 0.5% TOPICAL CREAM 30 GM TUBE TP SCH (17:40)
[2016-05-30] MEDS: CEFAZOLIN (PRE-DOCKED) 50 ML IVPB SCH ×3 (01:38→18:03)
[2016-05-30] MEDS: ALBUTEROL SO4 0.083% IH SOL 2.5 MG/3 ML VIAL.NEB. NEB SCH ×4 (06:01→17:23)
[2016-05-30] MEDS: ACETAMINOPHEN 325 MG TABLET (FP) PO PRN (06:55)
[2016-05-30 07:25] LABS: BASOPHIL 0.6 % (0-2.0); EOSINOPHIL 3.6 % (0-4.5); MCH 28.7 pg (25.7-33.7); MCHC 32.6 g/dl (32.0-35.9); MEAN CELL VOLUME 87.9 fl (80-96); MEAN PLT VOLUME 8.9 fl (7.5-11.1); NEUTROPHILS 65.8 % (42.8-82.8); PLATELET COUNT 157 K/MM3 (134-434); WHITE BLOOD COUNT 5.4 K/mm3 (4.0-10.0)
--- NOTE | 2016-05-30 07:30 | PN ---
Physical Exam: SUBJECTIVE: Patient seen and examined itching and pain continues. slept well last night. requesting cpap. OBJECTIVE: Vital Signs Period Temp Pulse Resp BP Sys/Varghese Pulse Ox Last 24 Hr 97.8 F-99.0 F 63-65 20-22 128-135/70-75 91-96 GENERAL: The patient is awake, alert, and fully oriented, in no acute distress. HEAD: Normal with no signs of trauma. EYES: PERRL, extraocular movements intact, sclera anicteric, conjunctiva clear. No ptosis. ENT: Ears normal, nares patent, oropharynx clear without exudates, moist mucous membranes. NECK: Trachea midline, full range of motion, supple. LUNGS: L>R mild scatterred expiratory wheezing. HEART: Regular rate and rhythm, S1, S2 without murmur, rub or gallop. ABDOMEN: Soft, nontender, nondistended, normoactive bowel sounds, no guarding, no rebound, no hepatosplenomegaly, no masses. EXTREMITIES: NEUROLOGICAL: Cranial nerves II through XII grossly intact. slurred speech, normal rate/tone. Active Medications Acetaminophen (Tylenol -) 650 mg PO Q4H PRN Albuterol Sulfate (Ventolin 0.083% Nebulizer Soln -) 1 amp NEB QIDR DIANNE Amlodipine Besylate (Norvasc -) 5 mg PO DAILY DIANNE Budesonide/Formoterol Fumarate (Symbicort 160/4.5mcg -) 2 puff IH BID DIANNE Diphenhydramine HCl (Benadryl -) 25 mg PO Q6H PRN Donepezil HCl (Aricept -) 5 mg PO DAILY DIANNE Duloxetine HCl (Cymbalta -) 60 mg PO DAILY DIANNE Ferrous Sulfate (Feosol -) 325 mg PO DAILY DIANNE Furosemide (Lasix -) 20 mg PO DAILY DIANNE Hydrocortisone (Hytone 0.5% Cream -) 1 applic TP DAILY DIANNE Cefazolin Sodium (Ancef 1gm Ivpb (Pre-Docked)) 50 mls @ 100 mls/hr IVPB Q8H-IV DIANNE Lisinopril (Prinivil) 10 mg PO DAILY DIANNE Metoprolol Succinate (Toprol Xl -) 50 mg PO DAILY DIANNE Pregabalin (Lyrica -) 100 mg PO BID DIANNE Rivaroxaban (Xarelto -) 20 mg PO DAILY DIANNE Tamsulosin HCl (Flomax -) 0.4 mg PO DAILY DIANNE Zolpidem Tartrate (Ambien -) 5 mg PO HS PRN ASSESSMENT/PLAN: 75 yr old man with afib, CVA with residual deficits, HTN, right orif with hardware complicated by infection in the past, admitted for right le cellulitis and rash. - called Dr. Fleming's office, patient has not has sleep study, no record of cpap settings. #Right le cellulitis failed outpatient po abx - uncomplicated - ancef 1gm q8 -- started 3/6 - bendryl for itching - hydrocortisone TP - ID consult, Dr. Benz - dermatology, Dr. Velasquez consulted #COPD - symbicort, ventolin - continuous nasal cannula 3lpm #HTN - norvasc, lisinopril, toprol, lasix #Afib - xarelto 20mg po #left arm neuropathy - cymbalta, lyrica -DVT on xarelto - Diet: low sodium Visit type - Emergency Visit Emergency Visit: No - New Patient This patient is new to me today: No - Critical Care Critical Care patient: No
[2016-05-30 08:37] LABS: ALBUMIN 2.9 g/dl (3.4-5.0); ALK PHOS 56 U/L (45-117); ANION GAP 7 (8-16); BILIRUBIN,TOTAL 0.4 mg/dL (0.2-1.0); CALCIUM 8.5 mg/dL (8.5-10.1); CO2 28 mmol/L (21-32); CREATININE 1.1 mg/dL (0.7-1.3); GLUCOSE,RANDOM 73 mg/dL (74-106); MAGNESIUM 1.9 mg/dL (1.8-2.4); SGOT/AST 13 U/L (15-37); SGPT/ALT 9 U/L (12-78)
--- NOTE | 2016-05-30 09:18 | PN ---
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 (short form) - Note 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: alert, feels better Vital Signs Period Temp Pulse Resp BP Sys/Varghese Pulse Ox Last 24 Hr 97.8 F-99.0 F 63-68 20-22 128-135/70-75 91 cor-rrr lungs clear abd soft,nt ext erythema of the RLE decreased (I marked his leg yesterday) rash on back, right forearm, left thigh unchanged CBC, BMP 05/30/16 05:45 05/30/16 05:45 Microbiology 05/27/16 12:10 Blood - Peripheral Venous Blood Culture - Preliminary NO GROWTH OBTAINED AFTER 48 HOURS, INCUBATION TO CONTINUE FOR 3 DAYS. 05/27/16 11:58 Blood - Peripheral Venous Blood Culture - Preliminary NO GROWTH OBTAINED AFTER 48 HOURS, INCUBATION TO CONTINUE FOR 3 DAYS. a/p rash cellulitis improving erythema of the leg continue cefazoli and topical steroids f/u dermatology consult
[2016-05-30] MEDS: METOPROLOL SUCCINATE 50 MG TAB.SR.24H (FP) PO SCH (10:13)
[2016-05-30] MEDS: DULoxetine HCL 30 MG CAPSULE.DR (FP) PO SCH (10:13)
[2016-05-30] MEDS: FERROUS SO4 325 MG TABLET (FP) PO SCH (10:13)
[2016-05-30] MEDS: FUROSEMIDE 20 MG TABLET (FP) PO SCH (10:13)
[2016-05-30] MEDS: LISINOPRIL 10 MG TABLET (FP) PO SCH (10:13)
[2016-05-30] MEDS: TAMSULOSIN HCL 0.4 MG CAP.ER.24H (FP) PO SCH (10:13)
[2016-05-30] MEDS: amLODIPine BESYLATE 5 MG TABLET (FP) PO SCH (10:13)
[2016-05-30] MEDS: PREGABALIN 100 MG CAPSULE PO SCH ×2 (10:15→22:15)
[2016-05-30] MEDS: RIVAROXABAN 20 MG TABLET PO SCH (10:15)
[2016-05-30] MEDS: DONEPEZIL HCL 5 MG TABLET (FP) PO SCH (10:16)
[2016-05-30] MEDS: HYDROCORTISONE 0.5% TOPICAL CREAM 30 GM TUBE TP SCH (10:16)
[2016-05-30] MEDS ORDERED: PT OWN MED DRAWER 7, Y5N ONE (10:17)
[2016-05-30] MEDS: BUDESONIDE/FORMETEROL FUMARATE 160/4.5 mcg INHALER IH SCH ×2 (10:18→22:15)
[2016-05-30] MEDS: diphenhydrAMINE HCL 25 MG CAPSULE (FP) PO PRN (13:45)
--- NOTE | 2016-05-30 17:42 | CONSULT ---
Consult Consult Specialty:: Dermatology - History Source History Provided By: Patient, Family Member - Past Medical History CAUSTIC LOADER: Yes: CVA, Seizure Cardio/Vascular: Yes: AFIB, Aneurysm, CAD, CHF, HTN, Hyperlipdemia, Murmur, Other (peripheral artery disease) Pulmonary: Yes: COPD Renal/: Yes: BPH - Past Surgical History Past Surgical History: Yes: AAA Repair, Bypass (lower ext), Permanent Pacemaker , Stent (cardiac x 2) - Alcohol/Substance Use Hx Alcohol Use: No History of Substance Use: reports: None - Smoking History Smoking history: Former smoker Have you smoked in the past 12 months: No If you are a former smoker, when did you quit?: 2006 - Social History Usual Living Arrangement: With Spouse ADL: Family Assistance History of Recent Travel: No Home Medications - Allergies Allergies/Adverse Reactions: Allergies Allergy/AdvReac Type Severity Reaction Status Date / Time prednisone Allergy Intermediate "too wired" Verified 04/29/16 10:41 - Home Medications Home Medications: Ambulatory Orders Amlodipine Besylate [Norvasc -] 5 mg PO DAILY 04/22/16 Budesonide/Formeterol Fumarate [SYMBICORT 160/4.5mcg -] 2 inh PO BID 04/22/16 Duloxetine HCl 60 mg PO DAILY 04/22/16 Ferrous Sulfate 325 mg PO DAILY 04/22/16 Furosemide [Lasix] 20 mg PO DAILY 04/22/16 Lisinopril 10 mg PO DAILY 04/22/16 Metoprolol Succinate [Toprol Xl] 50 mg PO DAILY 04/22/16 Pregabalin [Lyrica] 100 mg PO BID 04/22/16 Rivaroxaban [Xarelto -] 20 mg PO DAILY 04/22/16 Tamsulosin HCl [Flomax] 0.4 mg PO DAILY 04/22/16 Zolpidem Tartrate 10 mg PO HS 04/22/16 Albuterol 0.083% Nebulizer Suki [Ventolin 0.083% Nebulizer Soln -] 1 amp NEB Q6HPO #60 amp 04/28/16 Donepezil HCl 5 mg PO DAILY 05/27/16 Physical Exam Vital Signs: Vital Signs Temperature 98.3 F 05/30/16 14:57 Pulse Rate 60 05/30/16 14:57 Respiratory Rate 22 05/30/16 14:57 Blood Pressure 123/68 05/30/16 14:57 O2 Sat by Pulse Oximetry (%) 92 L 05/30/16 10:22 Labs: CBC, BMP 05/30/16 05:45 05/30/16 05:45 Assessment/Plan Patient developed eczematous eruption on right LE which developed into cellulitis . He has a history of knee surgery on that leg and recently had edema of ankle . He also has long standing onychomycosis and tinea pedis which is an entry for bacteria which can cause cellulitis.He currently has lesions of numular eczema on the back and arms as well. He requires podiatric care as well as follow up with a Linter Saw Sharpener after discharge. Please apply lidex ointment on affected area as well as moisturizing cream QD. apply antifungal cream sparingly to feet until dry BID. discussed with patients family.
--- NOTE | 2016-05-30 20:32 | PN ---
Teaching Attending Note Name of Resident: Armando Allen ATTENDING PHYSICIAN STATEMENT I saw and evaluated the patient. I reviewed the resident's note and discussed the case with the resident. I agree with the resident's findings and plan as documented. SUBJECTIVE: no fever or chills . leg feels better OBJECTIVE: NAD CV : RRR Lungs : CTAB ext : edema and erythema on R leg below the knee down . onychomycosis . skin : eczematous lesions on back and upper arms ASSESSMENT AND PLAN: 75 y/o man with multiple medical problems who presented with R LE painand swelling , was found to have cellulitis 1- cellulitis of RLE : improved - cont cefazolin. hopefully can switch to PO tomorrow - antifungal topically to tenia pedis 2- eczema of the skin: start high potency steroids moisturizing lotion seen by derm 3- DUARTE : at base line 4- h/o A fib , stroke on xarelto dispo : possible dc tomorrow
[2016-05-30] MEDS: CLOTRIMAZOLE 1% CREAM 15 GM TUBE TP SCH (22:15)
[2016-05-31] MEDS: CEFAZOLIN (PRE-DOCKED) 50 ML IVPB SCH ×2 (01:40→09:30)
[2016-05-31] MEDS: ALBUTEROL SO4 0.083% IH SOL 2.5 MG/3 ML VIAL.NEB. NEB SCH ×3 (06:30→11:23)
--- NOTE | 2016-05-31 07:31 | PN ---
Physical Exam: SUBJECTIVE: Patient seen and examined slept well last night, denied SOB, chest pain, palpitations. itching and pain in right foot improved. denies fevers pain. OBJECTIVE: Vital Signs Period Temp Pulse Resp BP Sys/Varghese Pulse Ox Last 24 Hr 98.2 F-98.5 F 60-76 16-22 108-125/68-81 90-92 GENERAL: The patient is awake, alert, and fully oriented, in no acute distress. ENT: oropharynx clear without exudates, moist mucous membranes. LUNGS: Breath sounds equal, clear to auscultation bilaterally, no wheezes, no crackles, no accessory muscle use. HEART: Regular rate and rhythm, S1, S2 without murmur, rub or gallop. ABDOMEN: Soft, nontender, nondistended, normoactive bowel sounds, no guarding, no rebound, no hepatosplenomegaly, no masses. EXTREMITIES: 2+ pulses, warm, well-perfused, no edema. erythema id darker today in right lower leg. NEUROLOGICAL: Cranial nerves II through XII grossly intact. PSYCH: Normal mood, normal affect. SKIN: Warm, dry, Laboratory Results - last 24 hr 05/30/16 05/30/16 05/30/16 05:45 05:45 05:45 WBC 5.4 RBC 4.83 Hgb 13.8 Hct 42.4 MCV 87.9 MCHC 32.6 RDW 16.0 H Plt Count 157 MPV 8.9 Neutrophils % 65.8 Lymphocytes % 19.4 Monocytes % 10.6 H Eosinophils % 3.6 Basophils % 0.6 Sodium 142 Potassium 4.2 Chloride 107 Carbon Dioxide 28 Anion Gap 7 L BUN 13 D Creatinine 1.1 Creat Clearance w eGFR > 60 Random Glucose 73 L Calcium 8.5 Magnesium 1.9 Total Bilirubin 0.4 D AST 13 L ALT 9 L Alkaline Phosphatase 56 Ammonia 18.67 Total Protein 6.0 L Albumin 2.9 L Active Medications Generic Name Dose Route Start Last Admin Trade Name Freq PRN Reason Stop Dose Admin Acetaminophen 650 mg 05/27/16 17:22 05/30/16 06:55 Tylenol - PO 650 mg Q4H PRN Administration FEVER OR PAIN Albuterol Sulfate 1 amp 05/27/16 18:00 05/31/16 06:30 Ventolin 0.083% Nebulizer Soln - NEB 1 amp QIDR IDANNE Administration Amlodipine Besylate 5 mg 05/28/16 10:00 05/30/16 10:13 Norvasc - PO 5 mg DAILY DIANNE Administration Budesonide/Formoterol Fumarate 2 puff 05/27/16 22:00 05/30/16 22:15 Symbicort 160/4.5mcg - IH 2 puff BID DIANNE Administration Clotrimazole 1 applic 05/30/16 22:00 05/30/16 22:15 Lotrimin 1% Cream - TP 1 applic BID DIANNE Administration Diphenhydramine HCl 25 mg 05/28/16 16:59 05/30/16 13:45 Benadryl - PO 25 mg Q6H PRN Administration FOR ITCHING Donepezil HCl 5 mg 05/28/16 10:00 05/30/16 10:16 Aricept - PO 5 mg DAILY DIANNE Administration Duloxetine HCl 60 mg 05/28/16 10:00 05/30/16 10:13 Cymbalta - PO 60 mg DAILY DIANNE Administration Ferrous Sulfate 325 mg 05/28/16 10:00 05/30/16 10:13 Feosol - PO 325 mg DAILY DIANNE Administration Fluocinonide 1 applic 05/31/16 10:00 Lidex 0.05% Ointment - TP DAILY DIANNE Fluocinonide 1 applic 05/31/16 10:00 Lidex 0.05% Cream - TP DAILY DIANNE Furosemide 20 mg 05/29/16 10:00 05/30/16 10:13 Lasix - PO 20 mg DAILY DIANNE Administration Cefazolin Sodium 50 mls @ 100 mls/hr 05/28/16 10:00 05/31/16 01:40 Ancef 1gm Ivpb (Pre-Docked) IVPB 100 mls/hr Q8H-IV DIANNE Administration Lisinopril 10 mg 05/28/16 10:00 05/30/16 10:13 Prinivil PO 10 mg DAILY DIANNE Administration Metoprolol Succinate 50 mg 05/28/16 10:00 05/30/16 10:13 Toprol Xl - PO 50 mg DAILY DIANNE Administration Pregabalin 100 mg 05/27/16 22:00 05/30/16 22:15 Lyrica - PO 100 mg BID DIANNE Administration Rivaroxaban 20 mg 05/28/16 10:00 05/30/16 10:15 Xarelto - PO 20 mg DAILY DIANNE Administration Tamsulosin HCl 0.4 mg 05/28/16 10:00 05/30/16 10:13 Flomax - PO 0.4 mg DAILY DIANNE Administration Zolpidem Tartrate 5 mg 05/27/16 17:43 05/30/16 22:15 Ambien - PO 5 mg HS PRN Administration ASSESSMENT/PLAN:
[2016-05-31] MEDS ORDERED: PT OWN MED DRAWER 7, Y5N ONE (09:18)
[2016-05-31] MEDS: METOPROLOL SUCCINATE 50 MG TAB.SR.24H (FP) PO SCH (09:27)
[2016-05-31] MEDS: TAMSULOSIN HCL 0.4 MG CAP.ER.24H (FP) PO SCH (09:27)
[2016-05-31] MEDS: PREGABALIN 100 MG CAPSULE PO SCH (09:27)
[2016-05-31] MEDS: RIVAROXABAN 20 MG TABLET PO SCH (09:27)
[2016-05-31] MEDS: amLODIPine BESYLATE 5 MG TABLET (FP) PO SCH (09:28)
[2016-05-31] MEDS: FUROSEMIDE 20 MG TABLET (FP) PO SCH (09:28)
[2016-05-31] MEDS: DULoxetine HCL 30 MG CAPSULE.DR (FP) PO SCH (09:28)
[2016-05-31] MEDS: LISINOPRIL 10 MG TABLET (FP) PO SCH (09:28)
[2016-05-31] MEDS: DONEPEZIL HCL 5 MG TABLET (FP) PO SCH (09:28)
[2016-05-31] MEDS: CLOTRIMAZOLE 1% CREAM 15 GM TUBE TP SCH (09:29)
[2016-05-31] MEDS: FERROUS SO4 325 MG TABLET (FP) PO SCH (09:34)
[2016-05-31] MEDS: BUDESONIDE/FORMETEROL FUMARATE 160/4.5 mcg INHALER IH SCH (09:35)
[2016-05-31] MEDS ORDERED: FLUOCINONIDE 0.05% TOP OINT (15 GM TUBE) TP SCH (10:00)
[2016-05-31] MEDS ORDERED: FLUOCINONIDE 0.05% CREAM (15 GM TUBE) TP SCH (10:00)
--- NOTE | 2016-05-31 11:45 | PN ---
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 (short form) - Note 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: ID Patient's right leg appears to be improving. Seen by dermatology with diagnosis of eczema and cellulitis no fever. Selected Entries 05/31/16 09:44 Temperature 97.5 F L Pulse Rate 69 Respiratory 20 Rate Right leg erythema improving multiple excoriations dry. Laboratory Tests 05/28/16 05/30/16 05/30/16 06:20 05:45 05:45 WBC 5.4 RBC 4.83 Plt Count 157 ESR 21 H Creat Clearance w eGFR > 60 Assessment Improving cellulitis. Can switch to PO Keflex 500 mg bid for 5 days. Problem List - Problems (1) Cellulitis of right leg Code(s): L03.115 - CELLULITIS OF RIGHT LOWER LIMB
[2016-05-31 13:33] VITALS: BP 137/84; PULSE 87; TEMP 97.8
[2016-05-31] MEDS ORDERED: CEPHALEXIN MONOHYDRATE 500 MG CAPSULE (UD) PO SCH (14:00)
--- NOTE | 2016-05-31 14:29 | PN ---
Teaching Attending Note Name of Resident: Armando Allen ATTENDING PHYSICIAN STATEMENT I saw and evaluated the patient. I reviewed the resident's note and discussed the case with the resident. I agree with the resident's findings and plan as documented. SUBJECTIVE: no fever or chills, leg feels better , no pain OBJECTIVE: NAD CV : RRR Lungs : CTAB ext : improved edema and erythema on R leg below the knee down . onychomycosis . skin : eczematous lesions on back and upper arms ASSESSMENT AND PLAN: 75 y/o man with multiple medical problems who presented with R LE painand swelling , was found to have cellulitis 1- Cellulitis of RLE : improved . switch to po keflex for 7 more days after dc -cont antifungal topically to tenia pedis 2- Eczema of the skin: cont steroids topically 3- DUARTE : Cr NL 4- h/o A fib , stroke on xarelto dc home today
--- NOTE | 2016-05-31 23:23 | DS ---
Physical Exam: SUBJECTIVE: Patient seen and examined slept well last night, denied SOB, chest pain, palpitations. itching and pain in right foot improved. denies fevers pain. OBJECTIVE: Vital Signs Period Temp Pulse Resp BP Sys/Varghese Pulse Ox Last 24 Hr 97.5 F-97.8 F 69-87 18-20 118-137/71-84 94 PHYSICAL EXAM GENERAL: The patient is awake, alert, and fully oriented, in no acute distress. ENT: oropharynx clear without exudates, moist mucous membranes. LUNGS:mild expiratory wheezing scatterred, no crackles, no accessory muscle use. HEART: Regular rate and rhythm, S1, S2 without murmur, rub or gallop. ABDOMEN: Soft, nontender, nondistended, normoactive bowel sounds, no guarding EXTREMITIES: 2+ pulses, warm, well-perfused, no edema. erythema is darker today in right lower leg. extending from mid leg to ankle, ttp, few areas of skin excoriations. left foot dorsum with small patchy erythematous rash. SKIN: numular eczematous rash on back improved. LABS Laboratory Tests 05/27/16 05/27/16 05/28/16 11:48 11:48 03:15 WBC Hgb Hct Plt Count ESR Sodium Potassium BUN 18 D Creatinine 1.4 H Serum Osmolality 298 Lactic Acid 1.388 Total Bilirubin 0.5 D AST 39 H D ALT 17 Ammonia C-Reactive Protein Urine Osmolality 592 Ur Random Sodium Ur Random Potassium Ur Random Chloride 05/28/16 05/28/16 05/28/16 03:15 06:20 06:20 WBC Hgb Hct Plt Count ESR 21 H Sodium Potassium BUN Creatinine Serum Osmolality Lactic Acid Total Bilirubin 0.3 D AST 14 L D ALT 11 L D Ammonia C-Reactive Protein 1.2 H Urine Osmolality Ur Random Sodium 78 Ur Random Potassium 37.5 Ur Random Chloride 87 05/30/16 05/30/16 05/30/16 05:45 05:45 05:45 WBC 5.4 Hgb 13.8 Hct 42.4 Plt Count 157 ESR Sodium 142 Potassium 4.2 BUN 13 D Creatinine 1.1 Serum Osmolality Lactic Acid Total Bilirubin 0.4 D AST 13 L ALT 9 L Ammonia 18.67 C-Reactive Protein Urine Osmolality Ur Random Sodium Ur Random Potassium Ur Random Chloride IMAGING US renal: The right kidney measures 12.5 cm in sagittal length with a cyst in its upper pole measuring 2.4 x 1.8 cm. A couple of other smaller cysts are present. Visualized portion of the liver appears unremarkable. The left kidney measures 11.7 cm in sagittal length with a few cysts the largest measuring 4 x 3.8 cm. There is no evidence of hydronephrosis, stones or solid mass lesion in both kidneys. Incidentally noted, the gallbladder is adequately distended with a few intraluminal stones and without thickening of its wall or pericholecystic free fluid. Impression: Cysts in both kidneys, as described above. Incidentally noted gallstones without sonographic evidence of acute cholecystitis CR Knee: Imaging reveals a knee replacement with the hardware appearing intact. There is no sign of loosening. The femoral component has a long intramedullary tamara portion. There is periosteal reaction seen along the distal femur. There are clips in the soft tissues by the knee joint. There are heavy vascular calcifications. The right hip appears grossly intact. If symptoms persist, further imaging and orthopedic consultation may be of help. Duplex: There is no evidence of deep venous thromboses in the right lower extremity. HOSPITAL COURSE: Date of Admission:05/27/16 - Date of Discharge: 05/31/16 75 yr old man with hypertension, hyperlipidemia, atrial fibrillation (on xarelto ), CAD s/p CABG s/p stents, CVA with residual weakness, pacemaker, COPD on home oxygen 2lpm, presents with right lower leg redness and pain. He had the lesions on his back and redness on his chest prior to previous hospitalization for COPD , when he was given prednisone the rash and erythema improved but once tapered the rash returned, now worsened in the right lower leg with swelling, pain and erythema. He was treated with ancef 1gm q8hr, 05/28 - 05/31. He evaluated by Dr. Velasquez, repair mechanic. He had developed an eczematous eruption on his right lower leg which developed into cellulitis. He has lesions of numular eczema on his back and arms and onychomycoziz and tinea pedis which will require dermatology and podiatry follow-up, respectively as outpatient. Knee xray did not show any positional change of hardware, unlikely it is affected. Recommendations: Lidex ointment and cream daily, lomitrin TP BID, and keflex 500mg 1 t q6 for 10 days. f/u with PCP, Dr. Solomon, repair mechanic, Dr. Velasquez and cardiology nurse practitioner, Dr. Chau. Minutes to complete discharge: 40 Discharge Summary Reason For Visit: CELLULITIS OF RIGHT LOWER EXTREMITY,OBSTRUCTIVE CH Current Active Problems Adequate anticoagulation on anticoagulant therapy (Chronic) Afib (Chronic) CAD (coronary artery disease) (Chronic) Hyperlipidemia (Chronic) Hypertension (Chronic) Condition: Improved - Instructions Diet, Activity, Other Instructions: Take Keflex 1 capsule every 6 hours for 10 days to complete a 14-day course of antibiotics. Drink plenty of water. Apply the Lidex ointment and cream daily to rash. apply Lomitiin sparingly to feet until dry twice daily. Follow-up with Dr. Velasquez in one week for the rash. Follow-up with Dr. Chau, podriatrist regarding the toe nail fungus. Follow-up with Dr. Solomon, your primary care doctor in one week to review the hospitalization and resolution of the rash. If you develop fever, worsening of the rash, chest pain, or any new symptoms return to the hospital. Referrals: Sasha Velasquez MD [Staff Physician] - Goran Chau MD [Staff Physician] - Alyssa Solomon [Primary Care Provider] - Disposition: HOME - Home Medications Comprehensive Discharge Medication List: Ambulatory Orders Amlodipine Besylate [Norvasc -] 5 mg PO DAILY 04/22/16 Budesonide/Formeterol Fumarate [SYMBICORT 160/4.5mcg -] 2 inh PO BID 04/22/16 Duloxetine HCl 60 mg PO DAILY 04/22/16 Ferrous Sulfate 325 mg PO DAILY 04/22/16 Furosemide [Lasix] 20 mg PO DAILY 04/22/16 Lisinopril 10 mg PO DAILY 04/22/16 Metoprolol Succinate [Toprol Xl] 50 mg PO DAILY 04/22/16 Pregabalin [Lyrica] 100 mg PO BID 04/22/16 Rivaroxaban [Xarelto -] 20 mg PO DAILY 04/22/16 Tamsulosin HCl [Flomax] 0.4 mg PO DAILY 04/22/16 Zolpidem Tartrate 10 mg PO HS 04/22/16 Albuterol 0.083% Nebulizer Suki [Ventolin 0.083% Nebulizer Soln -] 1 amp NEB Q6HPO #60 amp 04/28/16 Donepezil HCl 5 mg PO DAILY 05/27/16 Cephalexin [Keflex] 500 mg PO Q6H #42 capsule 05/31/16 Clotrimazole [Lotrimin -] 1 applic TP BID #1 tube 05/31/16 Fluocinonide 0.05% Cream [Lidex 0.05% Cream -] 1 applic TP DAILY #1 tube Fluocinonide 0.05% Oin [Lidex 0.05% Ointment -] 1 applic TP DAILY #1 tube This patient is new to me today: No Emergency Visit: No Critical Care patient: No - Discharge Referral [facility]erred to [facility] No
== END 2016-05-31 14:22 | disposition home or self-care (01) | DRG 603 ==
LOC: JER 11:11 → JERBED 16:08 → J5S 18:30
PROVIDERS: ADMIT Internal Medicine; ATTEND Internal Medicine
DX: L03.115 Cellulitis of right lower limb (principal); I69.354 Hemiplegia and hemiparesis following cerebral infarction affecting left non-dominant side; N17.9 Acute kidney failure, unspecified; E78.5 Hyperlipidemia, unspecified; I25.10 Atherosclerotic heart disease of native coronary artery without angina pectoris; Z98.61 Coronary angioplasty status; Z95.1 Presence of aortocoronary bypass graft; I48.91 Unspecified atrial fibrillation; L30.9 Dermatitis, unspecified; Z87.891 Personal history of nicotine dependence; J44.9 Chronic obstructive pulmonary disease, unspecified; G56.92 Unspecified mononeuropathy of left upper limb; I12.9 Hypertensive chronic kidney disease with stage 1 through stage 4 chronic kidney disease, or unspecified chronic kidney disease; N18.9 Chronic kidney disease, unspecified; E87.5 Hyperkalemia
CPT/HCPCS: 36415; 36600; 71010-TC; 73560-TC-RT; 76775-TC; 80053; 82140; 82436; 82550; 82803; 83605; 83735; 83930; 83935; 84133; 84300; 84484; 85025; 85651; 86140; 87040; 93005; 93010; 93971-TC; 94640; 99283-25

== ENCOUNTER 2016-07-30 18:45 | Inpatient (IN) | payer OTHER ==
--- NOTE | 2016-07-30 19:23 | PDOC ---
History of Present Illness - History of Present Illness Initial Comments: 07/30/16 19:31 Patient is a 76 year old male with significant medical hx of HTN, HLD, AFib, CAD s/p CABG s/p 2 stents, AAA repair, CVA with residual left sided weakness and delayed speech, pacemaker, COPD on home oxygen (3L) who is presenting to the ED with six days of LLQ pain. Patient is accompanied by family members who provided history. The patient has had associated decreased appetite; patient reportedly has been eating but not as much as usual. Two days ago the patient was feeling fatigued and was in bed all day. His last BM was this morning that was reportedly normal brown stool. Denies any fevers, chills, nausea, vomiting, or diarrhea. Patient's vital signs in the ED: O2Sat is 85% on room air and BP 184 systolic. Hospitalization: 04/23/16 for COPD exacerbation and was given Ancef for Cellulitis of right lower extremity. 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 STENTS.) CVA: Yes (01/23/12..SPEECH DEFECITS.) COPD: Yes HTN: Yes Hypercholesterolemia: Yes Other medical history: apashia s/p cva - Surgical History Abdominal Surgery: Yes (S/P AAA) Cardiac Surgery: Yes (Bypass 2014, PPM.) Orthopedic Surgery: Yes (FRACTURE RT FEMER S/P ORIF) - Immunization History Immunization Up to Date: Yes - Psycho/Social/Smoking Cessation Hx Anxiety: No Suicidal Ideation: No Smoking History: Former smoker Have you smoked in the past 12 months: No If you are a former smoker, when did you quit?: 2006 Cigars Per Day: 0 Information on smoking cessation initiated: No Hx Alcohol Use: No Drug/Substance Use Hx: No Substance Use Type: None Hx Substance Use Treatment: No <Lola Stahl - Last Filed: 07/31/16 01:39> - Past Medical History Allergies/Adverse Reactions: Allergies Allergy/AdvReac Type Severity Reaction Status Date / Time prednisone Allergy Intermediate "too wired" Verified 07/30/16 18:53 Home Medications: Ambulatory Orders Amlodipine Besylate [Norvasc -] 5 mg PO DAILY 04/22/16 Budesonide/Formeterol Fumarate [SYMBICORT 160/4.5mcg -] 2 inh PO BID 04/22/16 Duloxetine HCl 60 mg PO DAILY 04/22/16 Ferrous Sulfate 325 mg PO DAILY 04/22/16 Furosemide [Lasix] 20 mg PO DAILY 04/22/16 Lisinopril 10 mg PO DAILY 04/22/16 Metoprolol Succinate [Toprol Xl] 50 mg PO DAILY 04/22/16 Pregabalin [Lyrica] 100 mg PO BID 04/22/16 Rivaroxaban [Xarelto -] 20 mg PO DAILY 04/22/16 Tamsulosin HCl [Flomax] 0.4 mg PO DAILY 04/22/16 Zolpidem Tartrate 10 mg PO HS 04/22/16 Albuterol 0.083% Nebulizer Suki [Ventolin 0.083% Nebulizer Soln -] 1 amp NEB Q6HPO #60 amp 04/28/16 Donepezil HCl 5 mg PO DAILY 05/27/16 Cephalexin [Keflex] 500 mg PO Q6H #42 capsule 05/31/16 Clotrimazole [Lotrimin -] 1 applic TP BID #1 tube 05/31/16 Fluocinonide 0.05% Cream [Lidex 0.05% Cream -] 1 applic TP DAILY #1 tube Fluocinonide 0.05% Oin [Lidex 0.05% Ointment -] 1 applic TP DAILY #1 tube Review of Systems - Review of Systems Comments:: 07/30/16 19:33 CONSTITUTIONAL: Present: decreased appetite, fatigue Absent: fever, chills, diaphoresis HEENT: Absent: rhinorrhea, nasal congestion, throat pain, throat swelling, difficulty swallowing, mouth swelling, ear pain, eye pain, visual changes CARDIOVASCULAR: Absent: chest pain, syncope, palpitations, irregular heart rate, lightheadedness , peripheral edema RESPIRATORY: Absent: cough, shortness of breath, dyspnea with exertion, orthopnea, wheezing, stridor, hemoptysis GASTROINTESTINAL: Present: LLQ pain Absent: abdominal distension, nausea, vomiting, diarrhea, constipation, melena, hematochezia GENITOURINARY: Absent: dysuria, frequency, urgency, hesitancy, hematuria, flank pain, genital pain MUSCULOSKELETAL: Absent: myalgia, arthralgia, joint swelling SKIN: Absent: rash, itching, pallor HEMATOLOGIC/IMMUNOLOGIC: Absent: easy bleeding, easy bruising, lymphadenopathy, frequent infections ENDOCRINE: Absent: unexplained weight gain, unexplained weight loss, heat intolerance, cold intolerance NEUROLOGIC: Absent: headache, focal weakness or paresthesia, dizziness, unsteady gait, seizure, mental status changes, bladder or bowel incontinence. PSYCHIATRIC: Absent: anxiety, depression, suicidal or homicidal ideation, hallucinations <Dulce Maria Gutierrez - Last Filed: 07/31/16 00:38> *Physical Exam - Vital Signs Last Vital Signs Temp Pulse Resp BP Pulse Ox 97 F L 107 H 16 84/46 85 L 07/30/16 18:54 07/30/16 18:54 07/30/16 18:54 07/30/16 18:54 07/30/16 18:54 - Physical Exam Comments: 07/30/16 19:34 GENERAL: Well developed, well nourished. Awake and alert. No acute distress. HEENT: Normocephalic, atraumatic. PERRLA, EOMI. No conjunctival pallor. Sclera are non- icteric. Moist mucous membranes. Oropharynx is clear. NECK: Supple. Full ROM. No JVD. Carotid pulses 2+ and symmetric, without bruits. No thyromegaly. No lymphadenopathy. CARDIOVASCULAR: Distant heart sounds. Regular rate and rhythm. No bruits. No murmurs, rubs, or gallops. Distal pulses are 2+ and symmetric. PULMONARY: No evidence of respiratory distress. Lungs clear to auscultation bilaterally. No wheezing, rales or rhonchi. ABDOMINAL: Soft. LLQ tenderness. Non-distended. No rebound or guarding. No organomegaly. Normoactive bowel sounds. MUSCULOSKELETAL: Normal range of motion at all joints. No bony deformities or tenderness. No CVA tenderness. EXTREMITIES: No cyanosis. No clubbing. No edema. No calf tenderness. SKIN: Pale appearing, poor color. Warm and dry. Normal capillary refill. No rashes. No jaundice. NEUROLOGICAL: Alert, awake, appropriate. Moving all extremities. Cranial nerves 2-12 intact. PSYCHIATRIC: Cooperative. Good eye contact. Appropriate mood and affect. <Dulce Maria Gutierrez - Last Filed: 07/31/16 00:38> - Vital Signs Last Vital Signs Temp Pulse Resp BP Pulse Ox 97 F L 107 H 16 84/46 85 L 07/30/16 18:54 07/30/16 18:54 07/30/16 18:54 07/30/16 18:54 07/30/16 18:54 <Lola Stahl - Last Filed: 07/31/16 01:39> Heart Score/ECG Review #1 07/31/16 00:39 Atrial-sensed ventricular-paced rhythm with occasional premature ventricular complexes Biventricular pacemaker detected Abnormal ECG <Dulce Maria Gutierrez - Last Filed: 07/31/16 00:38> ED Treatment Course - LABORATORY CBC & Chemistry Diagram: 07/30/16 19:35 07/30/16 19:35 - RADIOLOGY Radiograph Interpretation: 07/30/16 20:18 Chest X-Ray Impression: No significant interval change or acute lung disease is present. Reported By: Tito Duvall MD 07/31/16 00:41 Abdomen/Pelvis CT Impression: Small renal stones without CT evidence of acute cholecystitis. Bilateral renal cysts within indeterminate lesion in the left mid kidney, posteriorly measuring 2.4 cm for which further evaluation of its consistency with ultrasound is recommended. Extensive vascular calcifications are present. Infrarenal aneurysmal dilatation of the abdominal aorta with an aortobiiliac stent as well as a femorofemoral stent. Multiple metallic vascular coils again seen within a round low- attenuation density measuring 6.5 cm that may represent aneurysmal dilatation of a vessel probably the right internal iliac artery. Interval linear-like calcification seen along its right lateral margin. Correlation with contrast-enhanced CT scan of the abdomen pelvis is needed for further evaluation of the aneurysmal dilatation patency of the stents. Reported By: Tito Duvall MD <Dulce Maria Gutierrez - Last Filed: 07/31/16 00:38> - LABORATORY CBC & Chemistry Diagram: 07/30/16 19:35 07/30/16 19:35 <Lola Stahl - Last Filed: 07/31/16 01:39> Medical Decision Making - Medical Decision Making 07/31/16 01:10 76-year-old male sent in by ambulance with his present. She said that he' s been having some left lower quadrant pain since last Saturday. And today he complained of worsening pain. He is oxygen dependent and uses 3 L of oxygen for his COPD His past medical history -Paroxysmal A. fib -CVA with residual left-sided weakness -Permanent pacemaker -Hypertension -Peripheral vascular disease with femorofemoral bypass -AAA repair -Cardiac stents - <Lola Stahl - Last Filed: 07/31/16 01:39> *DC/Admit/Observation/Transfer - Attestations Scribe Attestion: 07/30/16 19:39 Documentation prepared by Dulce Maria Gutirerez, acting as registered medical transcriptionist for Lola Stahl MD. <Dulce Maria Gutierrez - Last Filed: 07/31/16 00:38> - Discharge Dispostion Admit: Yes <Lola Stahl - Last Filed: 07/31/16 01:39> Diagnosis at time of Disposition: History of permanent cardiac pacemaker placement COPD (chronic obstructive pulmonary disease) Qualifiers: COPD type: COPD with acute exacerbation Qualified Code(s): J44.1 - Chronic obstructive pulmonary disease with (acute) exacerbation Abdominal pain Qualifiers: Abdominal location: left lower quadrant Qualified Code(s): R10.32 - Left lower quadrant pain Abdominal aortic aneurysm Qualifiers: Presence of rupture: without rupture Qualified Code(s): I71.4 - Abdominal aortic aneurysm, without rupture Hypotension Qualifiers: Hypotension type: unspecified hypotension type Qualified Code(s): I95.9 - Hypotension, unspecified
[2016-07-30] MEDS ORDERED: SODIUM CHLORIDE 1,000 ML IV STA ×2 (19:25→21:21)
[2016-07-30] MEDS ORDERED: ALBUTEROL SO4 2.5/IPRATROPIUM 0.5 INH SOL 3 ML VIAL.NEB. NEB ONE ×2 (19:51→19:52)
[2016-07-30 20:01] LABS: BASOPHIL 0.5 % (0-2.0); EOSINOPHIL 4.1 % (0-4.5); MCH 28.6 pg (25.7-33.7); MCHC 32.8 g/dl (32.0-35.9); MEAN CELL VOLUME 87.1 fl (80-96); MEAN PLT VOLUME 9.1 fl (7.5-11.1); NEUTROPHILS 69.5 % (42.8-82.8); PLATELET COUNT 219 K/MM3 (134-434); RDW 16.5 % (11.9-15.9); WHITE BLOOD COUNT 8.2 K/mm3 (4.0-10.0)
[2016-07-30 20:12] LABS: ALBUMIN 3.5 g/dl (3.4-5.0); BILIRUBIN,TOTAL 0.4 mg/dL (0.2-1.0); COCKROFT - GAULT 49.47; CREATININE 1.5 mg/dL (0.7-1.3); TOT PROT 6.8 g/dl (6.4-8.2)
[2016-07-30 20:13] LABS: INR 1.51 (0.82-1.09); PROTHROMBIN TIME (PATIENT) 16.7 SEC (9.98-11.88)
[2016-07-30 20:14] LABS: TROPONIN I < 0.02 ng/ml (0.00-0.05)
[2016-07-31] MEDS ORDERED: predniSONE 20 MG TABLET (UD) PO ONE
[2016-07-31] MEDS ORDERED: predniSONE 20 MG TABLET (UD) ONE (00:45)
[2016-07-31] MEDS ORDERED: ACETAMINOPHEN 325 MG TABLET (FP) PO PRN (06:44)
[2016-07-31] MEDS ORDERED: ZOLPIDEM TARTRATE 5 MG TABLET PO PRN (06:44)
[2016-07-31] MEDS ORDERED: ALBUTEROL SO4 2.5/IPRATROPIUM 0.5 INH SOL 3 ML VIAL.NEB. NEB PRN (06:44)
[2016-07-31] MEDS ORDERED: TAMSULOSIN HCL 0.4 MG CAP.ER.24H (FP) ONE (08:07)
[2016-07-31] MEDS: TAMSULOSIN HCL 0.4 MG CAP.ER.24H (FP) PO SCH (08:15)
--- NOTE | 2016-07-31 08:21 | CON.CARD ---
Consult Consult Specialty:: Cardiology Referred by:: Dr. Escamilla Reason for Consultation:: h/o CHF - History of Present Illness Chief Complaint: L sided abdominal pain History of Present Illness: 76 year old man with a history of HTN, HLD, Afib, CAD s/p CABG s/p stents, PPM, ICM refused ICD in the past, PAD, Thoracic aortic aneursym, CVA with residual L sided weakness, COPD admitted with L sided abdominal pain. Pt seen and examined in the ER in nad. states he has continued L sided abdominal discomfort, points to LUQ. denies chest pain, sob, palpitations, pnd, orthopnea, LE edema, lightheadedness, dizziness, syncope, or near syncope. 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, Seizure Cardio/Vascular: Yes: AFIB, Aneurysm, CAD, CHF, HTN, Hyperlipdemia, Murmur, Other (peripheral artery disease) Pulmonary: Yes: COPD Renal/: Yes: BPH - Past Surgical History Past Surgical History: Yes: AAA Repair, Bypass (lower ext), Permanent Pacemaker , Stent (cardiac x 2) - Alcohol/Substance Use Hx Alcohol Use: No History of Substance Use: reports: None - Smoking History Smoking history: Former smoker Have you smoked in the past 12 months: No If you are a former smoker, when did you quit?: 2006 - Social History Usual Living Arrangement: With Spouse ADL: Family Assistance History of Recent Travel: No Home Medications - Allergies Allergies/Adverse Reactions: Allergies Allergy/AdvReac Type Severity Reaction Status Date / Time prednisone Allergy Intermediate "too wired" Verified 07/30/16 18:53 - Home Medications Home Medications: Ambulatory Orders Amlodipine Besylate [Norvasc -] 5 mg PO DAILY 04/22/16 Budesonide/Formeterol Fumarate [SYMBICORT 160/4.5mcg -] 2 inh PO BID 04/22/16 Duloxetine HCl 60 mg PO DAILY 04/22/16 Ferrous Sulfate 325 mg PO DAILY 04/22/16 Furosemide [Lasix] 20 mg PO DAILY 04/22/16 Lisinopril 10 mg PO DAILY 04/22/16 Metoprolol Succinate [Toprol Xl] 50 mg PO DAILY 04/22/16 Pregabalin [Lyrica] 100 mg PO BID 04/22/16 Rivaroxaban [Xarelto -] 20 mg PO DAILY 04/22/16 Tamsulosin HCl [Flomax] 0.4 mg PO DAILY 04/22/16 Zolpidem Tartrate 10 mg PO HS 04/22/16 Albuterol 0.083% Nebulizer Suki [Ventolin 0.083% Nebulizer Soln -] 1 amp NEB Q6HPO #60 amp 04/28/16 Donepezil HCl 5 mg PO DAILY 05/27/16 Cephalexin [Keflex] 500 mg PO Q6H #42 capsule 05/31/16 Clotrimazole [Lotrimin -] 1 applic TP BID #1 tube 05/31/16 Fluocinonide 0.05% Cream [Lidex 0.05% Cream -] 1 applic TP DAILY #1 tube Fluocinonide 0.05% Oin [Lidex 0.05% Ointment -] 1 applic TP DAILY #1 tube Family Disease History - Family Disease History Family History: Denies Review of Systems - Review of Systems Constitutional: denies: No Symptoms, Chills, Diaphoresis, Fever, Lethargy, Loss of Appetite, Malaise, Night Sweats, Unintentional Wgt. Loss, Weakness, Other Eyes: denies: No Symptoms, Blind Spots, Blurred Vision, Double Vision, Eye Pain , Floaters, Photophobia, Recent Change in Vision, Other HENT: denies: No Symptoms, Difficult Swallowing, Ear Discharge, Ear Pain, Epistaxis, Gingival Bleeding, Hearing Loss, Mouth Swelling, Nasal Congestion, Ocular Prosthesis, Throat Pain, Toothache, Ringing in Ears, Other Neck: denies: No Symptoms, Decreased ROM, Lumps, Pain on Movement, Stiffness, Swollen Glands, Tenderness, Other Cardiovascular: denies: No Symptoms, Chest Pain, Edema, Palpitations, Shortness of Breath, Other Respiratory: denies: No Symptoms, Cough, Exercise Intolerance, Hemoptysis, Orthopnea, PND, Snoring, SOB, SOB on Exertion, Wheezing, Other Gastrointestinal: reports: Abdominal Pain. denies: No Symptoms, Bloating, Constipation, Diarrhea, Dysphagia, Indigestion, Melena, Nausea, Rectal Bleeding , Vomiting, Vomiting Blood, Other Genitourinary: denies: No Symptoms, Burning, Discharge, Dysuria, Flank Pain, Frequency, Hematuria, Incontinence, Lesions, Menses, Pain, Testicular Mass, Testicular Pain, Testicular Swelling, Urgency, Vaginal Bleeding, Other Musculoskeletal: denies: No Symptoms, Back Pain, Crepitus, Decreased ROM, Extremity Pain, Joint Pain, Joint Swelling, Muscle Pain, Muscle Cramps, Muscle Weakness, Other Integumentary: denies: No Symptoms, Blister, Bruising, Change in Color, Eczema, Erythema, Incision, Lesions, Lump, Pallor, Pruritis, Rash, Wound, Other Neurological: denies: No Symptoms, Change in LOC, Change in Speech, Confusion, Dizziness, Headache, Incoordination, Numbness, Parasthesia, Pre-Existing Deficit , Seizure, Syncope, Tremors, Unsteady Gait, Weakness, Other Endocrine: denies: No Symptoms, Excessive Sweating, Flushing, Increased Hunger, Increased Thirst, Intolerance to Cold, Intolerance to Heat, Unexplained Weight Gain, Unexplained Weight Loss, Other Hematology/Lymphatic: denies: No Symptoms, Easily Bruised, Excessive Bleeding, Swollen Glands, Other Psychiatric: denies: No Symptoms, Altered Sleep Pattern, Anxiety, Depression, Hallucinations, Panic, Paranoia, Suicidal, Other - Risk Factors Known Risk Factors: Yes: Hypercholesterolemia, Hypertension Vital Signs: Vital Signs Temperature 98.1 F 07/31/16 06:38 Pulse Rate 87 07/31/16 06:38 Respiratory Rate 16 07/31/16 06:38 Blood Pressure 123/83 07/31/16 06:38 O2 Sat by Pulse Oximetry (%) 92 L 07/31/16 06:42 Constitutional: Yes: Well Nourished, No Distress, Calm Eyes: Yes: WNL, Conjunctiva Clear, EOM Intact, PERRL HENT: Yes: WNL, Atraumatic, Normocephalic Neck: Yes: WNL, Supple, Trachea Midline Respiratory: Yes: Regular, Diminished. No: Rales, Rhonchi, Wheezes Gastrointestinal: Yes: Normal Bowel Sounds, Soft, Tenderness. No: Distention Renal/: Yes: WNL Cardiovascular: Yes: Pulse Irregular. No: Bradycardia, Tachycardia, Gallop, Rub , Varicosities JVD: No Carotid Bruit: No PMI: Non-Displaced Heart Sounds: Yes: S1, S2. No: Split S2, S3, S4, Clicks, Gallop, Rub, Bruit Murmur: No: Systolic Murmur, Diastolic Murmur Musculoskeletal: Yes: WNL Extremities: Yes: WNL Edema: No Peripheral Pulses WNL: Yes Peripheral Pulses: 2+ Left Doralis Pedis, 2+ Right Dorsalis Pedis Integumentary: Yes: WNL Neurological: Yes: WNL, Alert, Oriented, Cran Nerves II-XII Intact ...Motor Strength: WNL Psychiatric: Yes: WNL, Alert, Oriented - Other Data Labs, Other Data: INR, PTT INR 1.51 (0.82-1.09) H 07/30/16 19:40 ekg-not available for review in ER Echo: Report Reviewed, Image Reviewed Prior Cardiac Procedures: CABG, PTCA with Stent Imaging - Results Chest X-ray: Report Reviewed, Image Reviewed EKG: Report Reviewed, Image Reviewed Other: Report Reviewed, Image Reviewed Assessment/Plan 76 year old man with a history of HTN, HLD, Afib, CAD s/p CABG s/p stents, PPM, ICM refused ICD in the past, PAD, Thoracic aortic aneursym, CVA with residual L sided weakness, COPD admitted with L sided abdominal pain. Abdominal pain-unclear etiology -CT a/p was done, does not appear to be acute pathology -consider GI evaluation if needed SOB-chronic, stable, COPD and Chronic combined systolic/diastolic CHF -overall euvolemic -pt was started on IV Lasix, would plan to transition back to po Lasix -COPD tx as per Pulm reccs CAD-h/o CABG and PCI with stents, h/o ischemic cardiomyopathy -stable -cont current home medical regimen -most recent echo showed grossly normal LV systolic function HTN-adequately controlled -cont current medical regimen Thoracic aortic aneurysm -stable, has been monitored as outpatient and evaluated/followed by Vascular surgery -has been deemed a very high risk candidate for intervention. -cont bblocker PPM-Mauricio sci -followed as outpatient, normal functioning PAF -cont bblocker
[2016-07-31 09:15] LABS: MCH 29.1 pg (25.7-33.7); MCHC 33.1 g/dl (32.0-35.9); MEAN CELL VOLUME 87.9 fl (80-96); MEAN PLT VOLUME 8.9 fl (7.5-11.1); PLATELET COUNT 188 K/MM3 (134-434); RDW 16.8 % (11.9-15.9); WHITE BLOOD COUNT 9.5 K/mm3 (4.0-10.0)
[2016-07-31 09:35] LABS: ALBUMIN 3.3 g/dl (3.4-5.0); BILIRUBIN,TOTAL 0.3 mg/dL (0.2-1.0); CALCIUM 8.4 mg/dL (8.5-10.1); COCKROFT - GAULT 61.84; CREATININE 1.2 mg/dL (0.7-1.3); TOT PROT 6.4 g/dl (6.4-8.2)
[2016-07-31] MEDS ORDERED: PREGABALIN 100 MG CAPSULE PO SCH (10:00)
--- NOTE | 2016-07-31 10:43 | EKG ---
Test Reason : Blood Pressure : / mmHG Vent. Rate : 063 BPM Atrial Rate : 063 BPM P-R Int : 136 ms QRS Dur : 120 ms QT Int : 450 ms P-R-T Axes : 060 256 079 degrees QTc Int : 460 ms Atrial-sensed ventricular-paced rhythm Biventricular pacemaker detected ABNORMAL ECG WHEN COMPARED WITH ECG OF 30-JUL-2016 23:51, PREMATURE VENTRICULAR COMPLEXES ARE NO LONGER PRESENT VENT. RATE HAS DECREASED BY 9 BPM CLINICAL CORRELATION IS RECOMMENDED Confirmed by TARA MIDDLETON MD ([id number]) on 07/31/2016 10:42:54 AM Referred By: Confirmed By:TARA MIDDLETON MD
--- NOTE | 2016-07-31 11:04 | EKG ---
Test Reason : Blood Pressure : / mmHG Vent. Rate : 072 BPM Atrial Rate : 072 BPM P-R Int : 130 ms QRS Dur : 124 ms QT Int : 446 ms P-R-T Axes : 063 259 080 degrees QTc Int : 488 ms Atrial-sensed ventricular-paced rhythm WITH OCCASIONAL PREMATURE VENTRICULAR COMPLEXES Biventricular pacemaker detected ABNORMAL ECG WHEN COMPARED WITH ECG OF 27-MAY-2016 11:58, VENT. RATE HAS DECREASED BY 7 BPM CLINICAL CORRELATION IS RECOMMENDED BASELINE ARTIFACT Confirmed by TARA MIDDLETON MD ([id number]) on 07/31/2016 11:03:44 AM Referred By: Confirmed By:TARA MIDDLETON MD
[2016-07-31] MEDS ORDERED: PREGABALIN 100 MG CAPSULE ONE (11:51)
[2016-07-31] MEDS: DULoxetine HCL 60 MG CAPSULE.DR PO SCH (12:11)
[2016-07-31] MEDS: DONEPEZIL HCL 5 MG TABLET (FP) PO SCH (12:11)
[2016-07-31] MEDS: amLODIPine BESYLATE 5 MG TABLET (FP) PO SCH (12:12)
[2016-07-31] MEDS: LISINOPRIL 10 MG TABLET (FP) PO SCH (12:12)
[2016-07-31] MEDS: FERROUS SO4 325 MG TABLET (FP) PO SCH (12:12)
[2016-07-31] MEDS: FUROSEMIDE 40 MG/4 ML INJECTABLE VIAL IVPB SCH (12:12)
[2016-07-31] MEDS: RIVAROXABAN 20 MG TABLET PO SCH (12:13)
[2016-07-31] MEDS: BUDESONIDE/FORMETEROL FUMARATE 160/4.5 mcg INHALER IH SCH ×2 (12:13→21:48)
[2016-07-31] MEDS: METOPROLOL SUCCINATE 50 MG TAB.SR.24H (FP) PO SCH (12:13)
--- NOTE | 2016-07-31 15:03 | CONSULT ---
Consultation: REQUESTING PROVIDER: CONSULT REQUEST: We have been asked to medically evaluate this patient for ( pulmonolgy). HISTORY OF PRESENT ILLNESS: 76 year old man with a history of HTN, HLD, Afib, CAD s/p CABG s/p stents, PPM, ICM refused ICD in the past, PAD, Thoracic aortic aneursym, CVA with residual L sided weakness, COPD admitted with L sided abdominal pain. Patient states that he has pain in left flank area radiating to groin from one week, which was continuously increasing , Pain is 9/10, radiating to groin. intermittent. Denies burning micturation, change in frequency, denies blood in urine. Denies blood in stool, constipation, diarrhoea. denies eating from outside. denies sob, chest pain, palpiatations, lighheadidness, cough, fever. denies contact with person who has flu like symptoms states pain has improved after medication uses 3L of oxygen in home, symbicort and albuterol. past medical history -Paroxysmal A. fib -CVA with residual left-sided weakness -Permanent pacemaker -Hypertension -Peripheral vascular disease with femorofemoral bypass -AAA repair -Cardiac stents Surgical Hx: AAA repair, PPM, left arm angioplasty, lower extremity bypass, cardiac stents x 2, CABG, left femur tamara placement s/p fx (with a recurrent infection with abx for one year) - REVIEW OF SYSTEMS: CONSTITUTIONAL: Absent: fever, chills, diaphoresis, generalized weakness, HEENT: Absent: rhinorrhea, nasal congestion, throat pain, visual changes CARDIOVASCULAR: Absent: chest pain, syncope, palpitations, RESPIRATORY: Absent: cough, shortness of breath, dyspnea with exertion, orthopnea, wheezing, GASTROINTESTINAL: Report pain in left side of abdomen Absent: , abdominal distension, nausea, vomiting, diarrhea, constipation, melena, hematochezia GENITOURINARY: Absent: dysuria, frequency, urgency, hesitancy, hematuria, flank pain, genital pain PHYSICAL EXAMINATION Vital Signs - 24 hr 07/31/16 07/31/16 07/31/16 06:38 06:42 08:15 Temperature 98.1 F 97.4 F L Pulse Rate [ 87 80 Apical] Respiratory 16 22 Rate Blood Pressure 123/83 132/89 [Left] O2 Sat by Pulse 92 L 92 L 94 L Oximetry (%) 07/31/16 12:14 Temperature Pulse Rate [ 76 Apical] Respiratory 22 Rate Blood Pressure 135/80 [Left] O2 Sat by Pulse 96 Oximetry (%) GENERAL: Awake, alert, HEAD: Normal with no signs of trauma. EYES: right reacting to light, left operated for cataract EARS, NOSE, THROAT: Ears normal, nares patent, dry mucus membrane NECK: no lymphadenopathy, no jvd LUNGS: Breath sounds equal, clear to auscultation bilaterally. No wheezes, and no crackles. No accessory muscle use. HEART: s1s2 normal ABDOMEN: soft, non tender, no guarding, no rigidity, bs + UPPER EXTREMITIES: 2+ pulses, warm, well-perfused. No cyanosis. LOWER EXTREMITIES: well-perfused. No calf tenderness. No peripheral edema. Laboratory Results - last 24 hr 07/31/16 07/31/16 07/31/16 09:00 09:00 09:00 WBC 9.5 RBC 4.98 Hgb 14.5 Hct 43.8 MCV 87.9 MCHC 33.1 RDW 16.8 H Plt Count 188 MPV 8.9 Sodium 142 Potassium 4.8 Chloride 109 H Carbon Dioxide 24 Anion Gap 9 BUN 30 H Creatinine 1.2 Creat Clearance w eGFR 58.56 Random Glucose 119 H Hemoglobin A1c % 5.4 Calcium 8.4 L Total Bilirubin 0.3 D AST 14 L D ALT 16 Alkaline Phosphatase 47 Total Protein 6.4 Albumin 3.3 L Triglycerides 73 Cholesterol 186 Total LDL Cholesterol 143 H HDL Cholesterol 33 L Active Medications Generic Name Dose Route Start Last Admin Trade Name Freq PRN Reason Stop Dose Admin Acetaminophen 650 mg 07/31/16 06:44 Tylenol - PO Q6H PRN FEVER OR PAIN Albuterol/Ipratropium 1 amp 07/31/16 06:44 Duoneb - NEB Q6H PRN SHORTNESS OF BREATH Amlodipine Besylate 5 mg 07/31/16 10:00 07/31/16 12:12 Norvasc - PO 5 mg DAILY DIANNE Administration Budesonide/Formoterol Fumarate 1 puff 07/31/16 10:00 07/31/16 12:13 Symbicort 160/4.5mcg - IH Not Given BID DIANNE Clotrimazole 1 applic 07/31/16 10:00 Lotrimin 1% Cream - TP BID DIANNE Donepezil HCl 5 mg 07/31/16 10:00 07/31/16 12:11 Aricept - PO 5 mg DAILY DIANNE Administration Duloxetine HCl 60 mg 07/31/16 10:00 07/31/16 12:11 Cymbalta - PO 60 mg DAILY DIANNE Administration Ferrous Sulfate 325 mg 07/31/16 10:00 07/31/16 12:12 Feosol - PO 325 mg DAILY DIANNE Administration Fluocinonide 1 applic 07/31/16 10:00 Lidex 0.05% Cream - TP DAILY DIANNE Furosemide 40 mg 07/31/16 10:00 07/31/16 12:12 Lasix Injection - IVPB 40 mg DAILY DIANNE Administration Lisinopril 10 mg 07/31/16 10:00 07/31/16 12:12 Prinivil PO 10 mg DAILY DIANNE Administration Metoprolol Succinate 50 mg 07/31/16 10:00 07/31/16 12:13 Toprol Xl - PO 50 mg DAILY DIANNE Administration Pregabalin 100 mg 07/31/16 10:00 07/31/16 12:12 Lyrica - PO 100 mg BID DIANNE Administration Rivaroxaban 20 mg 07/31/16 10:00 07/31/16 12:13 Xarelto - PO 20 mg DAILY DIANNE Administration Tamsulosin HCl 0.4 mg 07/31/16 08:30 07/31/16 08:15 Flomax - PO 0.4 mg DAILY@0830 DIANNE Administration Zolpidem Tartrate 10 mg 07/31/16 06:44 Ambien - PO HS PRN INSOMNIA ASSESSMENT abdominal pain: unclear etiology but could be from renal stone which might have passed chronic sob, stable from copd and systolic/ diastolic chf h/o cad with CABG and PCI with stents h/o ischemic cardiomyopathy h/o afib, has pacemaker, on xarelto h/o cva HTN controlled with meds h/o thoracic aortic aneurysm Plan continue with home dose of symbicort and albuterol duoneb neb prn continue with home oxygen 3 L keep spo2> 90 on IV lasix 40mg daily, patient clinically not in fluid overload monitor and control bp cardiology consult appreciated Dispo: We will continue to follow the patient. Thank you for this consultative opportunity. Visit type - Emergency Visit Emergency Visit: Yes ED Registration Date: 07/31/16 Care time: The patient presented to the Emergency Department on the above date and was hospitalized for further evaluation of their emergent condition. - New Patient This patient is new to me today: Yes Date on this admission: 07/31/16 - Critical Care Critical Care patient: No
[2016-07-31 15:43] VITALS: BMI 24.3
--- NOTE | 2016-07-31 15:43 | PN ---
Teaching Attending Note Name of Resident: Art Zuniga ATTENDING PHYSICIAN STATEMENT I saw and evaluated the patient. I reviewed the resident's note and discussed the case with the resident. I agree with the resident's findings and plan as documented. Kane GHTORA MD
[2016-07-31 16:00] LABS: URINE APPEARANCE CLEAR; URINE BILIRUBIN NEGATIVE (NEGATIVE); URINE COLOR COLORLESS; URINE GLUCOSE (UA) NEGATIVE (NEGATIVE); URINE KETONE NEGATIVE (NEGATIVE); URINE LEUK ESTERASE NEGATIVE (NEGATIVE); URINE NITRITE NEGATIVE (NEGATIVE); URINE PROTEIN NEGATIVE (NEGATIVE); URINE UROBILINOGEN NEGATIVE E.U./dl (0.2-1.0)
[2016-07-31] MEDS: FLUOCINONIDE 0.05% CREAM (15 GM TUBE) TP SCH (16:09)
[2016-07-31] MEDS: CLOTRIMAZOLE 1% CREAM 15 GM TUBE TP SCH ×2 (16:10→21:51)
[2016-07-31 16:11] LABS: URINE BLOOD 1+ (NEGATIVE)
[2016-07-31 16:12] LABS: URINE RBC 2 /hpf (0-3); URINE WBC <1 /hpf (3-5)
[2016-07-31] MEDS: ALBUTEROL SO4 0.083% IH SOL 2.5 MG/3 ML VIAL.NEB. NEB SCH (18:15)
--- NOTE | 2016-07-31 19:34 | HP ---
Admitting History and Physical - Primary Care Physician PCP: Xavier Escamilla - Admission Chief Complaint: ABDOMINAL PAIN/COPD/ History of Present Illness: Patient is a 76 year old male with significant medical hx of HTN, HLD, AFib, CAD s/p CABG s/p 2 stents, AAA repair, CVA with residual left sided weakness and delayed speech, pacemaker, COPD on home oxygen (3L) who is presenting to the ED with six days of LLQ pain. Patient is accompanied by family members who provided history. The patient has had associated decreased appetite; patient reportedly has been eating but not as much as usual. Two days ago the patient was feeling fatigued and was in bed all day. His last BM was this morning that was reportedly normal brown stool. Denies any fevers, chills, nausea, vomiting, or diarrhea. Patient's vital signs in the ED: O2Sat is 85% on room air and BP 184 systolic. 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, Seizure Cardiovascular: Yes: AFIB, Aneurysm, CAD, CHF, HTN, Hyperlipdemia, Murmur, Other (peripheral artery disease) Pulmonary: Yes: COPD Renal/: Yes: BPH - Past Surgical History Past Surgical History: Yes: AAA Repair, Bypass (lower ext), Permanent Pacemaker , Stent (cardiac x 2) - Advance Directives Advance Directives: Yes: Health Care Proxy - Smoking History Smoking history: Former smoker Have you smoked in the past 12 months: No If you are a former smoker, when did you quit?: 2006 - Alcohol/Substance Use Hx Alcohol Use: No History of Substance Use: reports: None - Social History ADL: Family Assistance History of Recent Travel: No Home Medications - Allergies Allergies/Adverse Reactions: Allergies Allergy/AdvReac Type Severity Reaction Status Date / Time prednisone Allergy Intermediate "too wired" Verified 07/30/16 18:53 - Home Medications Home Medications: Ambulatory Orders Amlodipine Besylate [Norvasc -] 5 mg PO DAILY 04/22/16 Budesonide/Formeterol Fumarate [SYMBICORT 160/4.5mcg -] 2 inh PO BID 04/22/16 Duloxetine HCl 60 mg PO DAILY 04/22/16 Ferrous Sulfate 325 mg PO DAILY 04/22/16 Furosemide [Lasix] 20 mg PO DAILY 04/22/16 Lisinopril 10 mg PO DAILY 04/22/16 Metoprolol Succinate [Toprol Xl] 50 mg PO DAILY 04/22/16 Pregabalin [Lyrica] 100 mg PO BID 04/22/16 Rivaroxaban [Xarelto -] 20 mg PO DAILY 04/22/16 Tamsulosin HCl [Flomax] 0.4 mg PO DAILY 04/22/16 Zolpidem Tartrate 10 mg PO HS PRN 04/22/16 Albuterol 0.083% Nebulizer Suki [Ventolin 0.083% Nebulizer Soln -] 1 amp NEB Q6HPO #60 amp 04/28/16 Donepezil HCl 5 mg PO DAILY 05/27/16 Lovastatin 40 mg PO .MWF NIGHTLY 07/31/16 Mineral Oil/Pet Hy-Phl [Aquaphor] 1 applic TP BID PRN 07/31/16 Triamcinolone 0.1% Cream [Aristocort] 1 applic TP BID 07/31/16 Review of Systems - Review of Systems Constitutional: reports: Loss of Appetite, Weakness Eyes: reports: No Symptoms HENT: reports: No Symptoms Neck: reports: No Symptoms Cardiovascular: reports: No Symptoms Respiratory: reports: No Symptoms Gastrointestinal: reports: Abdominal Pain Genitourinary: reports: No Symptoms Musculoskeletal: reports: Muscle Weakness Integumentary: reports: No Symptoms Neurological: reports: Pre-Existing Deficit, Weakness Endocrine: reports: No Symptoms Hematology/Lymphatic: reports: No Symptoms Psychiatric: reports: No Symptoms Physical Examination Vital Signs: Vital Signs Temperature 97.8 F 07/31/16 15:00 Pulse Rate 76 07/31/16 15:00 Respiratory Rate 22 07/31/16 15:00 Blood Pressure 133/70 07/31/16 15:00 O2 Sat by Pulse Oximetry (%) 92 L 07/31/16 15:00 Constitutional: Yes: Mild Distress Eyes: Yes: WNL HENT: Yes: WNL Neck: Yes: WNL Cardiovascular: Yes: Pulse Irregular Respiratory: Yes: WNL Gastrointestinal: Yes: Tenderness Renal/: Yes: WNL Musculoskeletal: Yes: Muscle Weakness Extremities: Yes: WNL Edema: No Peripheral Pulses WNL: Yes Integumentary: Yes: WNL Wound/Incision: Yes: Clean/Dry Neurological: Yes: Pre-Existing Deficit, Unsteady Gait, Weakness ...Motor Strength: LLE, RLE Psychiatric: Yes: Other Labs: CBC, BMP 07/31/16 09:00 07/31/16 09:00 Imaging - Results Cat Scan: Report Reviewed Problem List - Problems (1) Abdominal pain Code(s): R10.9 - UNSPECIFIED ABDOMINAL PAIN Qualifiers: Abdominal location: left lower quadrant Qualified Code(s): R10.32 - Left lower quadrant pain (2) COPD (chronic obstructive pulmonary disease) Code(s): J44.9 - CHRONIC OBSTRUCTIVE PULMONARY DISEASE, UNSPECIFIED Qualifiers : COPD type: COPD with acute exacerbation Qualified Code(s): J44.1 - Chronic obstructive pulmonary disease with (acute) exacerbation (3) Abdominal aortic aneurysm Code(s): I71.4 - ABDOMINAL AORTIC ANEURYSM, WITHOUT RUPTURE Qualifiers: Presence of rupture: without rupture Qualified Code(s): I71.4 - Abdominal aortic aneurysm, without rupture (4) Adequate anticoagulation on anticoagulant therapy Code(s): Z79.01 - RETIREMENT (CURRENT) USE OF ANTICOAGULANTS (5) Afib Code(s): I48.91 - UNSPECIFIED ATRIAL FIBRILLATION (6) CAD (coronary artery disease) Code(s): I25.10 - ATHSCL HEART DISEASE OF [place] CORONARY ARTERY W/O ANG PCTRS (7) History of permanent cardiac pacemaker placement Code(s): Z95.0 - PRESENCE OF CARDIAC PACEMAKER (8) Hx of CABG Code(s): Z95.1 - PRESENCE OF AORTOCORONARY BYPASS GRAFT (9) Presence of cardiac pacemaker Code(s): Z95.0 - PRESENCE OF CARDIAC PACEMAKER (10) Stented coronary artery Code(s): Z95.5 - PRESENCE OF CORONARY ANGIOPLASTY IMPLANT AND GRAFT (11) Old cerebrovascular accident (CVA) without late effect Code(s): Z86.73 - PRSNL HX OF TIA (TIA), AND CEREB INFRC W/O RESID DEFICITS Assessment/Plan DIABETIC DIET GI EVAL PULM EVAL IV ABX CARDIO EVAL F/U LABS
--- NOTE | 2016-07-31 20:26 | CONSULT ---
Consult Consult Specialty:: Nephrology Reason for Consultation:: azotemia - History of Present Illness Chief Complaint: abdominal pain History of Present Illness: Pt is a 76 year old male with pmhx of HTN, a-fib, chol, CAD, CABF, AAA with repair, CVA, and COPD who presents to the hospital with abdominal pain. Pt has had the pain for about 6 days. He denies fevers or chills. He has decreased appetite. He denies nausea or vomiting. He denies blood in the stool. HE was found to be hypoxic and hypertensive in the ER. I was called to evaluate him for elevated creatinine. He denies history of kidney disease. He denies nsaid use. He has left sided weakness and delayed speech as residual effects of his CVA. 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: CVA, Seizure Cardio/Vascular: Yes: AFIB, Aneurysm, CAD, CHF, HTN, Hyperlipdemia, Murmur, Other (peripheral artery disease) Pulmonary: Yes: COPD Renal/: Yes: BPH - Past Surgical History Past Surgical History: Yes: AAA Repair, Bypass (lower ext), Permanent Pacemaker , Stent (cardiac x 2) - Alcohol/Substance Use Hx Alcohol Use: No History of Substance Use: reports: None - Smoking History Smoking history: Former smoker Have you smoked in the past 12 months: No If you are a former smoker, when did you quit?: 2006 - Social History Usual Living Arrangement: With Spouse ADL: Family Assistance History of Recent Travel: No Home Medications - Allergies Allergies/Adverse Reactions: Allergies Allergy/AdvReac Type Severity Reaction Status Date / Time prednisone Allergy Intermediate "too wired" Verified 07/30/16 18:53 - Home Medications Home Medications: Ambulatory Orders Amlodipine Besylate [Norvasc -] 5 mg PO DAILY 04/22/16 Budesonide/Formeterol Fumarate [SYMBICORT 160/4.5mcg -] 2 inh PO BID 04/22/16 Duloxetine HCl 60 mg PO DAILY 04/22/16 Ferrous Sulfate 325 mg PO DAILY 04/22/16 Furosemide [Lasix] 20 mg PO DAILY 04/22/16 Lisinopril 10 mg PO DAILY 04/22/16 Metoprolol Succinate [Toprol Xl] 50 mg PO DAILY 04/22/16 Pregabalin [Lyrica] 100 mg PO BID 04/22/16 Rivaroxaban [Xarelto -] 20 mg PO DAILY 04/22/16 Tamsulosin HCl [Flomax] 0.4 mg PO DAILY 04/22/16 Zolpidem Tartrate 10 mg PO HS PRN 04/22/16 Albuterol 0.083% Nebulizer Suki [Ventolin 0.083% Nebulizer Soln -] 1 amp NEB Q6HPO #60 amp 04/28/16 Donepezil HCl 5 mg PO DAILY 05/27/16 Lovastatin 40 mg PO .MWF NIGHTLY 07/31/16 Mineral Oil/Pet Hy-Phl [Aquaphor] 1 applic TP BID PRN 07/31/16 Triamcinolone 0.1% Cream [Aristocort] 1 applic TP BID 07/31/16 Family Disease History - Family Disease History Family History: Denies Review of Systems - Review of Systems Constitutional: reports: No Symptoms. denies: Chills, Fever Eyes: reports: No Symptoms HENT: reports: No Symptoms Neck: reports: No Symptoms Cardiovascular: reports: No Symptoms Respiratory: reports: No Symptoms Gastrointestinal: reports: Abdominal Pain Genitourinary: reports: No Symptoms Musculoskeletal: reports: No Symptoms Integumentary: reports: No Symptoms Neurological: reports: No Symptoms Endocrine: reports: No Symptoms Hematology/Lymphatic: reports: No Symptoms Psychiatric: reports: No Symptoms Physical Exam Vital Signs: Vital Signs Temperature 97.8 F 07/31/16 15:00 Pulse Rate 76 07/31/16 15:00 Respiratory Rate 22 07/31/16 15:00 Blood Pressure 133/70 07/31/16 15:00 O2 Sat by Pulse Oximetry (%) 92 L 07/31/16 15:00 Constitutional: Yes: Calm Eyes: Yes: Conjunctiva Clear HENT: Yes: Atraumatic Neck: Yes: Supple Cardiovascular: Yes: S1, S2 Respiratory: Yes: CTA Bilaterally Gastrointestinal: Yes: Soft, Other (left lower quad tenderness) Renal/: Yes: WNL Musculoskeletal: Yes: WNL Edema: No Neurological: Yes: Oriented Psychiatric: Yes: Oriented Labs: CBC, BMP 07/31/16 09:00 07/31/16 09:00 Laboratory Tests 04/23/16 04/24/16 05/27/16 07:00 06:15 11:48 WBC Hgb Plt Count Sodium Potassium Chloride Carbon Dioxide Anion Gap BUN Creatinine 1.2 1.1 1.4 H Random Glucose Lactic Acid Creatine Kinase Albumin Lipase Urine Color Urine Appearance Urine pH Ur Specific [place] Urine Protein Urine Glucose (UA) Urine Ketones Urine Blood Urine Nitrite Urine Bilirubin Urine Urobilinogen Ur Leukocyte Esterase Urine RBC Urine WBC 05/28/16 07/30/16 07/30/16 06:20 19:35 19:35 WBC Hgb Plt Count Sodium 139 Potassium 4.5 Chloride 106 Carbon Dioxide 23 Anion Gap 10 BUN 31 H D Creatinine 1.2 1.5 H D Random Glucose Lactic Acid Creatine Kinase 102 Albumin 3.5 D Lipase 170 Urine Color Urine Appearance Urine pH Ur Specific [place] Urine Protein Urine Glucose (UA) Urine Ketones Urine Blood Urine Nitrite Urine Bilirubin Urine Urobilinogen Ur Leukocyte Esterase Urine RBC Urine WBC 07/30/16 07/31/16 07/31/16 19:40 09:00 09:00 WBC 9.5 Hgb 14.5 Plt Count 188 Sodium 142 Potassium 4.8 Chloride 109 H Carbon Dioxide 24 Anion Gap 9 BUN 30 H Creatinine 1.2 Random Glucose 119 H Lactic Acid 0.989 Creatine Kinase Albumin Lipase Urine Color Urine Appearance Urine pH Ur Specific [place] Urine Protein Urine Glucose (UA) Urine Ketones Urine Blood Urine Nitrite Urine Bilirubin Urine Urobilinogen Ur Leukocyte Esterase Urine RBC Urine WBC 07/31/16 14:49 WBC Hgb Plt Count Sodium Potassium Chloride Carbon Dioxide Anion Gap BUN Creatinine Random Glucose Lactic Acid Creatine Kinase Albumin Lipase Urine Color Colorless Urine Appearance Clear Urine pH 5.0 Ur Specific [place] <= 1.005 Urine Protein Negative Urine Glucose (UA) Negative Urine Ketones Negative Urine Blood 1+ H Urine Nitrite Negative Urine Bilirubin Negative Urine Urobilinogen Negative Ur Leukocyte Esterase Negative Urine RBC 2 Urine WBC <1 Imaging - Results Cat Scan: Report Reviewed Ultrasound: Report Reviewed (bilateral renal cysts) Problem List - Problems (1) Abdominal pain Code(s): R10.9 - UNSPECIFIED ABDOMINAL PAIN Qualifiers: Abdominal location: left lower quadrant Qualified Code(s): R10.32 - Left lower quadrant pain (2) COPD (chronic obstructive pulmonary disease) Code(s): J44.9 - CHRONIC OBSTRUCTIVE PULMONARY DISEASE, UNSPECIFIED Qualifiers : COPD type: COPD with acute exacerbation Qualified Code(s): J44.1 - Chronic obstructive pulmonary disease with (acute) exacerbation (3) Abdominal aortic aneurysm Code(s): I71.4 - ABDOMINAL AORTIC ANEURYSM, WITHOUT RUPTURE Qualifiers: Presence of rupture: without rupture Qualified Code(s): I71.4 - Abdominal aortic aneurysm, without rupture (4) CAD (coronary artery disease) Code(s): I25.10 - ATHSCL HEART DISEASE OF [place] CORONARY ARTERY W/O ANG PCTRS (5) Azotemia Code(s): R79.89 - OTHER SPECIFIED ABNORMAL FINDINGS OF BLOOD CHEMISTRY (6) Microscopic hematuria Code(s): R31.29 - OTHER MICROSCOPIC HEMATURIA Assessment/Plan Current Medications Generic Name Dose Route Start Last Admin Trade Name Freq PRN Reason Stop Dose Admin Acetaminophen 650 mg 07/31/16 06:44 Tylenol - PO Q6H PRN FEVER OR PAIN Albuterol Sulfate 1 amp 07/31/16 18:00 07/31/16 18:15 Ventolin 0.083% Nebulizer Soln - NEB Not Given QIDR DIANNE Albuterol/Ipratropium 1 amp 07/31/16 06:44 07/31/16 15:17 Duoneb - NEB 1 amp Q6H PRN Administration SHORTNESS OF BREATH Amlodipine Besylate 5 mg 07/31/16 10:00 07/31/16 12:12 Norvasc - PO 5 mg DAILY DIANNE Administration Budesonide/Formoterol Fumarate 1 puff 07/31/16 10:00 07/31/16 21:48 Symbicort 160/4.5mcg - IH 1 puff BID DIANNE Administration Clotrimazole 1 applic 07/31/16 10:00 07/31/16 21:51 Lotrimin 1% Cream - TP Not Given BID DIANNE Donepezil HCl 5 mg 07/31/16 10:00 07/31/16 12:11 Aricept - PO 5 mg DAILY DIANNE Administration Duloxetine HCl 60 mg 07/31/16 10:00 07/31/16 12:11 Cymbalta - PO 60 mg DAILY DIANNE Administration Ferrous Sulfate 325 mg 07/31/16 10:00 07/31/16 12:12 Feosol - PO 325 mg DAILY DIANNE Administration Fluocinonide 1 applic 07/31/16 10:00 07/31/16 16:09 Lidex 0.05% Cream - TP Not Given DAILY DIANNE Furosemide 40 mg 07/31/16 10:00 07/31/16 12:12 Lasix Injection - IVPB 40 mg DAILY DIANNE Administration Lisinopril 10 mg 07/31/16 10:00 07/31/16 12:12 Prinivil PO 10 mg DAILY DIANNE Administration Metoprolol Succinate 50 mg 07/31/16 10:00 07/31/16 12:13 Toprol Xl - PO 50 mg DAILY DIANNE Administration Pregabalin 100 mg 07/31/16 21:23 07/31/16 21:48 Lyrica - PO 100 mg BID DIANNE Administration Rivaroxaban 20 mg 07/31/16 10:00 07/31/16 12:13 Xarelto - PO 20 mg DAILY DIANNE Administration Tamsulosin HCl 0.4 mg 07/31/16 08:30 07/31/16 08:15 Flomax - PO 0.4 mg DAILY@0830 DIANNE Administration Zolpidem Tartrate 10 mg 07/31/16 06:44 Ambien - PO HS PRN INSOMNIA Impression 1. azotemia improving 2. abdominal pain 3. AAA 4. hx CVA 5. a-fib 6. HTN 7. insomnia 8. COPD on home oxygen 9. CAD 10. BPH Plan - renal function is improving - unclear etiology of abdominal pain, consider GI eval, pt does have significant vascular disease - repeat labs in am - renal ultrasound reviewed, urology eval for renal lesion - can switch lasix to PO - pt does have microscopic hematuria and this will need to be evaluated - will follow pt Dr Cassidy
[2016-07-31] MEDS ORDERED: PT OWN MED DRAWER 7, Y5N ONE (21:21)
[2016-07-31] MEDS: PREGABALIN 50 MG CAPSULE PO SCH (21:48)
[2016-08-01] MEDS: ALBUTEROL SO4 0.083% IH SOL 2.5 MG/3 ML VIAL.NEB. NEB SCH ×4 (00:10→18:24)
[2016-08-01] MEDS ORDERED: PT OWN MED DRAWER 7, Y5N ONE ×4 (07:07→21:44)
[2016-08-01 07:40] LABS: MCH 28.8 pg (25.7-33.7); MCHC 32.6 g/dl (32.0-35.9); MEAN CELL VOLUME 88.3 fl (80-96); PLATELET COUNT 180 K/MM3 (134-434); RDW 16.7 % (11.9-15.9); WHITE BLOOD COUNT 9.7 K/mm3 (4.0-10.0)
[2016-08-01 08:32] LABS: ALBUMIN 3.4 g/dl (3.4-5.0); BILIRUBIN,TOTAL 0.5 mg/dL (0.2-1.0); CALCIUM 8.5 mg/dL (8.5-10.1); COCKROFT - GAULT 52.07; CREATININE 1.2 mg/dL (0.7-1.3); TOT PROT 6.6 g/dl (6.4-8.2)
[2016-08-01] MEDS ORDERED: DULoxetine HCL 30 MG CAPSULE.DR (FP) PO ONE (08:36)
[2016-08-01] MEDS: METOPROLOL SUCCINATE 50 MG TAB.SR.24H (FP) PO SCH (09:23)
[2016-08-01] MEDS: TAMSULOSIN HCL 0.4 MG CAP.ER.24H (FP) PO SCH (09:23)
[2016-08-01] MEDS: amLODIPine BESYLATE 5 MG TABLET (FP) PO SCH (09:24)
[2016-08-01] MEDS: DONEPEZIL HCL 5 MG TABLET (FP) PO SCH (09:24)
[2016-08-01] MEDS: RIVAROXABAN 20 MG TABLET PO SCH (09:24)
[2016-08-01] MEDS: LISINOPRIL 10 MG TABLET (FP) PO SCH (09:24)
[2016-08-01] MEDS: FUROSEMIDE 40 MG/4 ML INJECTABLE VIAL IVPB SCH (09:24)
[2016-08-01] MEDS: PREGABALIN 50 MG CAPSULE PO SCH ×2 (09:24→22:15)
[2016-08-01] MEDS: FERROUS SO4 325 MG TABLET (FP) PO SCH (09:25)
[2016-08-01] MEDS: DULoxetine HCL 60 MG CAPSULE.DR PO SCH (09:28)
[2016-08-01] MEDS: BUDESONIDE/FORMETEROL FUMARATE 160/4.5 mcg INHALER IH SCH ×2 (09:28→22:34)
--- NOTE | 2016-08-01 10:15 | PN ---
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, Physician Chief Complaint: sitting in chair, no distress Denies chest pain or SOB - Current Medication List Current Medications: Active Medications Acetaminophen (Tylenol -) 650 mg PO Q6H PRN PRN Reason: FEVER OR PAIN Albuterol Sulfate (Ventolin 0.083% Nebulizer Soln -) 1 amp NEB QIDR [facility] Last Admin: 08/01/16 07:16 Dose: 1 amp Albuterol/Ipratropium (Duoneb -) 1 amp NEB Q6H PRN PRN Reason: SHORTNESS OF BREATH Last Admin: 07/31/16 15:17 Dose: 1 amp Amlodipine Besylate (Norvasc -) 5 mg PO DAILY [facility] Last Admin: 08/01/16 09:24 Dose: 5 mg Budesonide/Formoterol Fumarate (Symbicort 160/4.5mcg -) 1 puff IH BID [facility] Last Admin: 08/01/16 09:28 Dose: 1 puff Clotrimazole (Lotrimin 1% Cream -) 1 applic TP BID [facility] Last Admin: 07/31/16 21:51 Dose: Not Given Donepezil HCl (Aricept -) 5 mg PO DAILY [facility] Last Admin: 08/01/16 09:24 Dose: 5 mg Duloxetine HCl (Cymbalta -) 60 mg PO DAILY [facility] Last Admin: 08/01/16 09:28 Dose: 60 mg Ferrous Sulfate (Feosol -) 325 mg PO DAILY [facility] Last Admin: 08/01/16 09:25 Dose: 325 mg Fluocinonide (Lidex 0.05% Cream -) 1 applic TP DAILY [facility] Last Admin: 07/31/16 16:09 Dose: Not Given Furosemide (Lasix Injection -) 40 mg IVPB DAILY [facility] Last Admin: 08/01/16 09:24 Dose: 40 mg Lisinopril (Prinivil) 10 mg PO DAILY [facility] Last Admin: 08/01/16 09:24 Dose: 10 mg Metoprolol Succinate (Toprol Xl -) 50 mg PO DAILY [facility] Last Admin: 08/01/16 09:23 Dose: 50 mg Pregabalin (Lyrica -) 100 mg PO BID [facility] Last Admin: 08/01/16 09:24 Dose: 100 mg Rivaroxaban (Xarelto -) 20 mg PO DAILY [facility] Last Admin: 08/01/16 09:24 Dose: 20 mg Tamsulosin HCl (Flomax -) 0.4 mg PO DAILY@0830 [facility] Last Admin: 08/01/16 09:23 Dose: 0.4 mg Zolpidem Tartrate (Ambien -) 10 mg PO HS PRN PRN Reason: INSOMNIA - Objective Vital Signs: Vital Signs Temperature 98.6 F 08/01/16 09:00 Pulse Rate 77 08/01/16 09:00 Respiratory Rate 20 08/01/16 09:00 Blood Pressure 134/86 08/01/16 09:00 O2 Sat by Pulse Oximetry (%) 92 L 07/31/16 15:00 Constitutional: Yes: No Distress Eyes: Yes: Conjunctiva Clear Cardiovascular: Yes: Regular Rate and Rhythm Respiratory: Yes: CTA Bilaterally Gastrointestinal: Yes: Soft (non-tender; no rebound or guarding) Edema: Yes Edema: LLE: 1+ (chronic), RLE: 1+ (chronic) Labs: CBC, BMP 08/01/16 06:15 08/01/16 06:15 INR, PTT INR 1.51 (0.82-1.09) H 07/30/16 19:40 Laboratory Tests 08/01/16 08/01/16 06:15 06:15 WBC 9.7 Hgb 14.2 Plt Count 180 Sodium 142 Potassium 4.0 Creatinine 1.2 Calcium 8.5 Total Bilirubin 0.5 D AST 15 ALT 15 Alkaline Phosphatase 46 Assessment/Plan 76 year old man with a history of HTN, HLD, Afib, CAD s/p CABG s/p stents, PPM, ICM refused ICD in the past, PAD, Thoracic aortic aneursym, CVA with residual L sided weakness, COPD admitted with L sided abdominal pain. Abdominal pain-unclear etiology -CT a/p was done, does not appear to be acute pathology -consider GI evaluation if needed -Outpatient Vascular follow up, has had extensive vascular surgery at [facility] SOB-chronic, stable, COPD and Chronic combined systolic/diastolic CHF -overall euvolemic now -COPD tx as per Pulm reccs CAD-h/o CABG and PCI with stents, h/o ischemic cardiomyopathy -stable -cont current home medical regimen -most recent echo showed grossly normal LV systolic function Thoracic aortic aneurysm -stable, has been monitored as outpatient and evaluated/followed by Vascular surgery -has been deemed a very high risk candidate for intervention. -cont bblocker PPM-Mauricio sci -followed as outpatient, normal functioning PAF -cont ronaldo
--- NOTE | 2016-08-01 10:37 | PN ---
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, Physician Chief Complaint: ABD PAIN, STILL COMES AND GOES INTERMITTENT +APPETITE - Current Medication List Current Medications: Active Medications Acetaminophen (Tylenol -) 650 mg PO Q6H PRN PRN Reason: FEVER OR PAIN Albuterol Sulfate (Ventolin 0.083% Nebulizer Soln -) 1 amp NEB QIDR [facility] Last Admin: 08/01/16 07:16 Dose: 1 amp Albuterol/Ipratropium (Duoneb -) 1 amp NEB Q6H PRN PRN Reason: SHORTNESS OF BREATH Last Admin: 07/31/16 15:17 Dose: 1 amp Amlodipine Besylate (Norvasc -) 5 mg PO DAILY [facility] Last Admin: 08/01/16 09:24 Dose: 5 mg Budesonide/Formoterol Fumarate (Symbicort 160/4.5mcg -) 1 puff IH BID [facility] Last Admin: 08/01/16 09:28 Dose: 1 puff Clotrimazole (Lotrimin 1% Cream -) 1 applic TP BID [facility] Last Admin: 07/31/16 21:51 Dose: Not Given Donepezil HCl (Aricept -) 5 mg PO DAILY [facility] Last Admin: 08/01/16 09:24 Dose: 5 mg Duloxetine HCl (Cymbalta -) 60 mg PO DAILY [facility] Last Admin: 08/01/16 09:28 Dose: 60 mg Ferrous Sulfate (Feosol -) 325 mg PO DAILY [facility] Last Admin: 08/01/16 09:25 Dose: 325 mg Fluocinonide (Lidex 0.05% Cream -) 1 applic TP DAILY [facility] Last Admin: 07/31/16 16:09 Dose: Not Given Furosemide (Lasix Injection -) 40 mg IVPB DAILY [facility] Last Admin: 08/01/16 09:24 Dose: 40 mg Lisinopril (Prinivil) 10 mg PO DAILY [facility] Last Admin: 08/01/16 09:24 Dose: 10 mg Metoprolol Succinate (Toprol Xl -) 50 mg PO DAILY [facility] Last Admin: 08/01/16 09:23 Dose: 50 mg Pregabalin (Lyrica -) 100 mg PO BID [facility] Last Admin: 08/01/16 09:24 Dose: 100 mg Rivaroxaban (Xarelto -) 20 mg PO DAILY [facility] Last Admin: 08/01/16 09:24 Dose: 20 mg Tamsulosin HCl (Flomax -) 0.4 mg PO DAILY@0830 [facility] Last Admin: 08/01/16 09:23 Dose: 0.4 mg Zolpidem Tartrate (Ambien -) 10 mg PO HS PRN PRN Reason: INSOMNIA - Objective Vital Signs: Vital Signs Temperature 98.6 F 08/01/16 09:00 Pulse Rate 77 08/01/16 09:00 Respiratory Rate 20 08/01/16 09:00 Blood Pressure 134/86 08/01/16 09:00 O2 Sat by Pulse Oximetry (%) 92 L 07/31/16 15:00 Constitutional: Yes: Mild Distress Eyes: Yes: WNL HENT: Yes: WNL Neck: Yes: WNL Cardiovascular: Yes: Pulse Irregular Respiratory: Yes: Diminished, On Nasal O2 Gastrointestinal: Yes: Tenderness Genitourinary: Yes: WNL Musculoskeletal: Yes: Muscle Weakness Extremities: Yes: WNL Edema: No Peripheral Pulses WNL: Yes Integumentary: Yes: WNL Wound/Incision: Yes: Clean/Dry Neurological: Yes: Pre-Existing Deficit, Unsteady Gait ...Motor Strength: LLE, RLE Psychiatric: Yes: WNL Labs: CBC, BMP 08/01/16 06:15 08/01/16 06:15 INR, PTT INR 1.51 (0.82-1.09) H 07/30/16 19:40 Problem List - Problems (1) Abdominal pain Code(s): R10.9 - UNSPECIFIED ABDOMINAL PAIN Qualifiers: Abdominal location: left lower quadrant Qualified Code(s): R10.32 - Left lower quadrant pain (2) COPD (chronic obstructive pulmonary disease) Code(s): J44.9 - CHRONIC OBSTRUCTIVE PULMONARY DISEASE, UNSPECIFIED Qualifiers : COPD type: COPD with acute exacerbation Qualified Code(s): J44.1 - Chronic obstructive pulmonary disease with (acute) exacerbation (3) Abdominal aortic aneurysm Code(s): I71.4 - ABDOMINAL AORTIC ANEURYSM, WITHOUT RUPTURE Qualifiers: Presence of rupture: without rupture Qualified Code(s): I71.4 - Abdominal aortic aneurysm, without rupture (4) Adequate anticoagulation on anticoagulant therapy Code(s): Z79.01 - USP (CURRENT) USE OF ANTICOAGULANTS (5) Afib Code(s): I48.91 - UNSPECIFIED ATRIAL FIBRILLATION (6) CAD (coronary artery disease) Code(s): I25.10 - ATHSCL HEART DISEASE OF [place] CORONARY ARTERY W/O ANG PCTRS (7) History of permanent cardiac pacemaker placement Code(s): Z95.0 - PRESENCE OF CARDIAC PACEMAKER (8) Hx of CABG Code(s): Z95.1 - PRESENCE OF AORTOCORONARY BYPASS GRAFT (9) Presence of cardiac pacemaker Code(s): Z95.0 - PRESENCE OF CARDIAC PACEMAKER (10) Stented coronary artery Code(s): Z95.5 - PRESENCE OF CORONARY ANGIOPLASTY IMPLANT AND GRAFT (11) Old cerebrovascular accident (CVA) without late effect Code(s): Z86.73 - PRSNL HX OF TIA (TIA), AND CEREB INFRC W/O RESID DEFICITS Assessment/Plan DISCUSSED WITH GI DR MCCLAIN HE WILL SEE THE PATIENT TODAY R/O ISCHEMIC BOWEL? SOB ON 02 SUPPORT REFUSED CARDIAC INTERVENTION AND ICD IN PAST CARDIO EVAL APPRECIATED PT EVAL
--- NOTE | 2016-08-01 11:29 | PN ---
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 (short form) - Note 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: PULMONARY VSS/AFEBRILE LESS INTERMITTENT LLQ DISCOMFORT ANICTERIC DISTANT BUT CLEAR LUNG FRANCIS S1S2 BS+ NO EDEMA LABS/MEDS/NOTES/IMAGING REVIEWED ABD PAIN ETIOLOGY ? AWAIT GI EVAL PULMONARY STATUS STABLE CONTINUE BRONCHODILATORS/O2 PRN Kane GHOTRA MD
[2016-08-01] MEDS: CLOTRIMAZOLE 1% CREAM 15 GM TUBE TP SCH ×2 (12:11→22:17)
[2016-08-01] MEDS: FLUOCINONIDE 0.05% CREAM (15 GM TUBE) TP SCH (12:12)
--- NOTE | 2016-08-01 17:04 | CON.GI ---
Consult Consult Specialty:: gastroenterology Referred by:: Dr Escamilla - History of Present Illness History of Present Illness: Patient is a 76 year old male with significant medical hx of HTN, HLD, AFib, CAD s/p CABG s/p 2 stents, AAA repair, CVA with residual left sided weakness and delayed speech, pacemaker, COPD on home oxygen (3L) who is presenting to the ED with six days of LLQ pain. Patient is accompanied by family members who provided history. The patient has had associated decreased appetite; patient reportedly has been eating but not as much as usual. Two days ago the patient was feeling fatigued and was in bed all day. His last BM was this morning that was reportedly normal brown stool. Denies any fevers, chills, nausea, vomiting, or diarrhea. Patient's vital signs in the ED: O2Sat is 85% on room air and BP 184 systolic. Hospitalization: 04/23/16 for COPD exacerbation and was given Ancef for Cellulitis of right lower extremity. S/p colonoscopy by JULIO 2001 , he was noted to have a villotubular polyp,he never has a recent colonoscopy. On CT he was noted to have cholelithiasis and possible left kidney lesion. He continues to have a left lower quadrant pain and left CVA pain. 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 Cardio/Vascular: Yes: AFIB, Aneurysm, CAD, CHF, HTN, Hyperlipdemia, Murmur, Other (peripheral artery disease) Pulmonary: Yes: COPD Renal/: Yes: BPH - Past Surgical History Past Surgical History: Yes: AAA Repair, Bypass (lower ext), Permanent Pacemaker , Stent (cardiac x 2) - Alcohol/Substance Use Hx Alcohol Use: No History of Substance Use: reports: None - Smoking History Smoking history: Former smoker Have you smoked in the past 12 months: No If you are a former smoker, when did you quit?: 2006 - Social History Usual Living Arrangement: With Spouse ADL: Family Assistance History of Recent Travel: No Home Medications - Allergies Allergies/Adverse Reactions: Allergies Allergy/AdvReac Type Severity Reaction Status Date / Time prednisone Allergy Intermediate "too wired" Verified 07/30/16 18:53 - Home Medications Home Medications: Ambulatory Orders Amlodipine Besylate [Norvasc -] 5 mg PO DAILY 04/22/16 Budesonide/Formeterol Fumarate [SYMBICORT 160/4.5mcg -] 2 inh PO BID 04/22/16 Duloxetine HCl 60 mg PO DAILY 04/22/16 Ferrous Sulfate 325 mg PO DAILY 04/22/16 Furosemide [Lasix] 20 mg PO DAILY 04/22/16 Lisinopril 10 mg PO DAILY 04/22/16 Metoprolol Succinate [Toprol Xl] 50 mg PO DAILY 04/22/16 Pregabalin [Lyrica] 100 mg PO BID 04/22/16 Rivaroxaban [Xarelto -] 20 mg PO DAILY 04/22/16 Tamsulosin HCl [Flomax] 0.4 mg PO DAILY 04/22/16 Zolpidem Tartrate 10 mg PO HS PRN 04/22/16 Albuterol 0.083% Nebulizer Suki [Ventolin 0.083% Nebulizer Soln -] 1 amp NEB Q6HPO #60 amp 04/28/16 Donepezil HCl 5 mg PO DAILY 05/27/16 Lovastatin 40 mg PO .MWF NIGHTLY 07/31/16 Mineral Oil/Pet Hy-Phl [Aquaphor] 1 applic TP BID PRN 07/31/16 Triamcinolone 0.1% Cream [Aristocort] 1 applic TP BID 07/31/16 Physical Exam-GI Vital Signs: Vital Signs Temperature 98.6 F 08/01/16 16:42 Pulse Rate 69 08/01/16 16:42 Respiratory Rate 20 08/01/16 16:42 Blood Pressure 108/74 08/01/16 16:42 O2 Sat by Pulse Oximetry (%) 92 L 08/01/16 12:00 Constitutional: Yes: Well Nourished Eyes: Yes: Conjunctiva Clear HENT: Yes: Atraumatic Neck: Yes: Supple Cardiovascular: Yes: Regular Rate and Rhythm Respiratory: Yes: CTA Bilaterally ...Palpate: Yes: Soft, Tenderness (--llq). No: Firm/Rigid, Guarding, Hepatomegaly, Mass, Splenomegaly Labs: CBC, BMP 08/01/16 06:15 08/01/16 06:15 INR, PTT INR 1.51 (0.82-1.09) H 07/30/16 19:40 Home Medications Medication Instructions Recorded Amlodipine Besylate [Norvasc -] 5 mg PO DAILY 04/22/16 Budesonide/Formeterol Fumarate 2 inh PO BID 04/22/16 [SYMBICORT 160/4.5mcg -] Duloxetine HCl 60 mg PO DAILY 04/22/16 Ferrous Sulfate 325 mg PO DAILY 04/22/16 Furosemide [Lasix] 20 mg PO DAILY 04/22/16 Lisinopril 10 mg PO DAILY 04/22/16 Metoprolol Succinate [Toprol Xl] 50 mg PO DAILY 04/22/16 Pregabalin [Lyrica] 100 mg PO BID 04/22/16 Rivaroxaban [Xarelto -] 20 mg PO DAILY 04/22/16 Tamsulosin HCl [Flomax] 0.4 mg PO DAILY 04/22/16 Zolpidem Tartrate 10 mg PO HS PRN 04/22/16 Albuterol 0.083% Nebulizer Suki 1 amp NEB Q6HPO #60 amp 04/28/16 [Ventolin 0.083% Nebulizer Soln -] Donepezil HCl 5 mg PO DAILY 05/27/16 Lovastatin 40 mg PO .MWF NIGHTLY 07/31/16 Mineral Oil/Pet Hy-Phl [Aquaphor] 1 applic TP BID PRN 07/31/16 Triamcinolone 0.1% Cream 1 applic TP BID 07/31/16 [Aristocort] Imaging - Results Cat Scan: Report Reviewed Problem List - Problems (1) Abdominal aortic aneurysm Code(s): I71.4 - ABDOMINAL AORTIC ANEURYSM, WITHOUT RUPTURE Qualifiers: Presence of rupture: without rupture Qualified Code(s): I71.4 - Abdominal aortic aneurysm, without rupture (2) Left lower quadrant pain Assessment/Plan: etiology unclear,sigmoid spasm vs diverticulosis, IBS suspect bacterial overgrowth with constipation vs occult malignancy R> will need colonoscopy even as an outpatient Bentyl 10mg bid Flagyl 250mg tid Miralax 34 grams daily Code(s): R10.32 - LEFT LOWER QUADRANT PAIN (3) History of colonic polyps Assessment/Plan: for colonoscopy Code(s): Z86.010 - PERSONAL HISTORY OF COLONIC POLYPS
--- NOTE | 2016-08-01 18:29 | PN ---
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, Physician History of Present Illness: Pt seen and examined at bedside. He feels that the abdominal pain is improved. - Current Medication List Current Medications: Active Medications Acetaminophen (Tylenol -) 650 mg PO Q6H PRN PRN Reason: FEVER OR PAIN Albuterol Sulfate (Ventolin 0.083% Nebulizer Soln -) 1 amp NEB QIDR [facility] Last Admin: 08/01/16 12:00 Dose: 1 amp Albuterol/Ipratropium (Duoneb -) 1 amp NEB Q6H PRN PRN Reason: SHORTNESS OF BREATH Last Admin: 07/31/16 15:17 Dose: 1 amp Amlodipine Besylate (Norvasc -) 5 mg PO DAILY [facility] [place] Last Admin: 08/01/16 09:24 Dose: 5 mg Budesonide/Formoterol Fumarate (Symbicort 160/4.5mcg -) 1 puff IH BID [facility] Last Admin: 08/01/16 09:28 Dose: 1 puff Clotrimazole (Lotrimin 1% Cream -) 1 applic TP BID [facility] Last Admin: 08/01/16 12:11 Dose: 1 applic Dicyclomine HCl (Bentyl -) 10 mg PO TID [facility] Donepezil HCl (Aricept -) 5 mg PO DAILY [facility] Last Admin: 08/01/16 09:24 Dose: 5 mg Duloxetine HCl (Cymbalta -) 60 mg PO DAILY [facility] Last Admin: 08/01/16 09:28 Dose: 60 mg Ferrous Sulfate (Feosol -) 325 mg PO DAILY [facility] [place] Last Admin: 08/01/16 09:25 Dose: 325 mg Fluocinonide (Lidex 0.05% Cream -) 1 applic TP DAILY [facility] [place] Last Admin: 08/01/16 12:12 Dose: 1 applic Furosemide (Lasix Injection -) 40 mg IVPB DAILY [facility] [place] Last Admin: 08/01/16 09:24 Dose: 40 mg Lisinopril (Prinivil) 10 mg PO DAILY [facility] [place] Last Admin: 08/01/16 09:24 Dose: 10 mg Metoprolol Succinate (Toprol Xl -) 50 mg PO DAILY [facility] [place] Last Admin: 08/01/16 09:23 Dose: 50 mg Metronidazole (Flagyl -) 250 mg PO TID [facility] [place] Polyethylene Glycol (Miralax (For Daily Use) -) 34 gm PO DAILY [facility] [place] Pregabalin (Lyrica -) 100 mg PO BID [facility] [place] Last Admin: 08/01/16 09:24 Dose: 100 mg Rivaroxaban (Xarelto -) 20 mg PO DAILY [facility] [place] Last Admin: 08/01/16 09:24 Dose: 20 mg Tamsulosin HCl (Flomax -) 0.4 mg PO DAILY@0830 [facility] [place] Last Admin: 08/01/16 09:23 Dose: 0.4 mg Zolpidem Tartrate (Ambien -) 10 mg PO HS PRN PRN Reason: INSOMNIA - Objective Vital Signs: Vital Signs Temperature 98.6 F 08/01/16 16:42 Pulse Rate 69 08/01/16 16:42 Respiratory Rate 20 08/01/16 16:42 Blood Pressure 108/74 08/01/16 16:42 O2 Sat by Pulse Oximetry (%) 92 L 08/01/16 12:00 Constitutional: Yes: Calm Eyes: Yes: Conjunctiva Clear HENT: Yes: Atraumatic Cardiovascular: Yes: S1, S2 Respiratory: Yes: On Nasal O2, Wheezes Gastrointestinal: Yes: Soft Genitourinary: Yes: WNL Musculoskeletal: Yes: WNL Edema: No Neurological: Yes: Oriented, Pre-Existing Deficit Psychiatric: Yes: Oriented Labs: CBC, BMP 08/01/16 06:15 08/01/16 06:15 INR, PTT INR 1.51 (0.82-1.09) H 07/30/16 19:40 Problem List - Problems (1) Abdominal pain Code(s): R10.9 - UNSPECIFIED ABDOMINAL PAIN Qualifiers: Abdominal location: left lower quadrant Qualified Code(s): R10.32 - Left lower quadrant pain (2) COPD (chronic obstructive pulmonary disease) Code(s): J44.9 - CHRONIC OBSTRUCTIVE PULMONARY DISEASE, UNSPECIFIED Qualifiers : COPD type: COPD with acute exacerbation Qualified Code(s): J44.1 - Chronic obstructive pulmonary disease with (acute) exacerbation (3) Abdominal aortic aneurysm Code(s): I71.4 - ABDOMINAL AORTIC ANEURYSM, WITHOUT RUPTURE Qualifiers: Presence of rupture: without rupture Qualified Code(s): I71.4 - Abdominal aortic aneurysm, without rupture (4) CAD (coronary artery disease) Code(s): I25.10 - ATHSCL HEART DISEASE OF [place] CORONARY ARTERY W/O ANG PCTRS (5) Azotemia Code(s): R79.89 - OTHER SPECIFIED ABNORMAL FINDINGS OF BLOOD CHEMISTRY (6) Microscopic hematuria Code(s): R31.29 - OTHER MICROSCOPIC HEMATURIA Assessment/Plan Current Medications Generic Name Dose Route Start Last Admin Trade Name Freq PRN Reason Stop Dose Admin Acetaminophen 650 mg 07/31/16 06:44 Tylenol - PO Q6H PRN FEVER OR PAIN Albuterol Sulfate 1 amp 07/31/16 18:00 08/01/16 12:00 Ventolin 0.083% Nebulizer Soln - NEB 1 amp QIDR [facility] Administration Albuterol/Ipratropium 1 amp 07/31/16 06:44 07/31/16 15:17 Duoneb - NEB 1 amp Q6H PRN Administration SHORTNESS OF BREATH Amlodipine Besylate 5 mg 07/31/16 10:00 08/01/16 09:24 Norvasc - PO 5 mg DAILY [facility] Administration Budesonide/Formoterol Fumarate 1 puff 07/31/16 10:00 08/01/16 09:28 Symbicort 160/4.5mcg - IH 1 puff BID [facility] Administration Clotrimazole 1 applic 07/31/16 10:00 08/01/16 12:11 Lotrimin 1% Cream - TP 1 applic BID [facility] Administration Dicyclomine HCl 10 mg 08/01/16 22:00 Bentyl - PO TID [facility] Donepezil HCl 5 mg 07/31/16 10:00 08/01/16 09:24 Aricept - PO 5 mg DAILY [facility] Administration Duloxetine HCl 60 mg 07/31/16 10:00 08/01/16 09:28 Cymbalta - PO 60 mg DAILY [facility] Administration Ferrous Sulfate 325 mg 07/31/16 10:00 08/01/16 09:25 Feosol - PO 325 mg DAILY [facility] Administration Fluocinonide 1 applic 07/31/16 10:00 08/01/16 12:12 Lidex 0.05% Cream - TP 1 applic DAILY [facility] Administration Furosemide 40 mg 07/31/16 10:00 08/01/16 09:24 Lasix Injection - IVPB 40 mg DAILY [facility] Administration Lisinopril 10 mg 07/31/16 10:00 08/01/16 09:24 Prinivil PO 10 mg DAILY [facility] Administration Metoprolol Succinate 50 mg 07/31/16 10:00 08/01/16 09:23 Toprol Xl - PO 50 mg DAILY [facility] Administration Metronidazole 250 mg 08/01/16 22:00 Flagyl - PO TID [facility] Polyethylene Glycol 34 gm 08/01/16 17:45 Miralax (For Daily Use) - PO DAILY [facility] Pregabalin 100 mg 07/31/16 21:23 08/01/16 09:24 Lyrica - PO 100 mg BID [facility] Administration Rivaroxaban 20 mg 07/31/16 10:00 08/01/16 09:24 Xarelto - PO 20 mg DAILY [facility] Administration Tamsulosin HCl 0.4 mg 07/31/16 08:30 08/01/16 09:23 Flomax - PO 0.4 mg DAILY@0830 [facility] Administration Zolpidem Tartrate 10 mg 07/31/16 06:44 Ambien - PO HS PRN INSOMNIA Impression 1. azotemia improving 2. abdominal pain 3. AAA 4. hx CVA 5. a-fib 6. HTN 7. insomnia 8. COPD on home oxygen 9. CAD 10. BPH Plan - renal function appears to be stabilizing - switch lasix to PO - GI input appreciated, pt will get an endoscopy - renal ultrasound reviewed, urology eval for renal lesion - pt does have microscopic hematuria and this will need to be evaluated - will follow pt Dr Cassidy
[2016-08-01] MEDS: POLYETHYLENE GLYCOL 3350 119 GM BTL PO SCH (19:02)
[2016-08-01] MEDS: metroNIDAZOLE 250 MG TABLET PO SCH (22:15)
[2016-08-01] MEDS: DICYCLOMINE HCL 10 MG CAPSULE PO SCH (22:34)
[2016-08-02] MEDS: ALBUTEROL SO4 0.083% IH SOL 2.5 MG/3 ML VIAL.NEB. NEB SCH ×3 (00:02→11:29)
[2016-08-02] MEDS: DICYCLOMINE HCL 10 MG CAPSULE PO SCH (06:19)
[2016-08-02] MEDS: metroNIDAZOLE 250 MG TABLET PO SCH (06:19)
[2016-08-02 08:19] LABS: CALCIUM 8.4 mg/dL (8.5-10.1); COCKROFT - GAULT 62.49
[2016-08-02] MEDS ORDERED: DULoxetine HCL 30 MG CAPSULE.DR (FP) PO ONE (09:21)
[2016-08-02] MEDS: TAMSULOSIN HCL 0.4 MG CAP.ER.24H (FP) PO SCH (09:32)
[2016-08-02] MEDS: FERROUS SO4 325 MG TABLET (FP) PO SCH (09:32)
[2016-08-02] MEDS: PREGABALIN 50 MG CAPSULE PO SCH (09:32)
[2016-08-02] MEDS: LISINOPRIL 10 MG TABLET (FP) PO SCH (09:32)
[2016-08-02] MEDS: DONEPEZIL HCL 5 MG TABLET (FP) PO SCH (09:33)
[2016-08-02] MEDS: amLODIPine BESYLATE 5 MG TABLET (FP) PO SCH (09:33)
[2016-08-02] MEDS: CLOTRIMAZOLE 1% CREAM 15 GM TUBE TP SCH (09:34)
[2016-08-02] MEDS: FLUOCINONIDE 0.05% CREAM (15 GM TUBE) TP SCH (09:34)
[2016-08-02] MEDS: BUDESONIDE/FORMETEROL FUMARATE 160/4.5 mcg INHALER IH SCH (09:34)
[2016-08-02] MEDS: DULoxetine HCL 60 MG CAPSULE.DR PO SCH (09:35)
[2016-08-02] MEDS: METOPROLOL SUCCINATE 50 MG TAB.SR.24H (FP) PO SCH (09:36)
[2016-08-02] MEDS ORDERED: PT OWN MED DRAWER 7, Y5N ONE (09:38)
[2016-08-02] MEDS: RIVAROXABAN 20 MG TABLET PO SCH (09:41)
--- NOTE | 2016-08-02 09:42 | DS ---
Physical Examination Vital Signs: Vital Signs Temperature 97.5 F L 08/02/16 06:00 Pulse Rate 69 08/02/16 06:00 Respiratory Rate 20 08/02/16 06:00 Blood Pressure 112/72 08/02/16 06:00 O2 Sat by Pulse Oximetry (%) 94 L 08/01/16 21:00 Findings/Remarks: AWAKE ALERT FEELING BETTER COLONOSCOPY OUTPATIENT DISCUSSED WITH DR MCCLAIN Constitutional: Yes: No Distress Eyes: Yes: WNL HENT: Yes: WNL Neck: Yes: WNL Cardiovascular: Yes: Pulse Irregular Respiratory: Yes: On Nasal O2 Gastrointestinal: Yes: WNL Renal/: Yes: WNL Musculoskeletal: Yes: Muscle Weakness Extremities: Yes: WNL Edema: No Peripheral Pulses WNL: Yes Integumentary: Yes: WNL Wound/Incision: Yes: Clean/Dry Neurological: Yes: WNL ...Motor Strength: WNL Psychiatric: Yes: WNL Labs: CBC, BMP 08/01/16 06:15 08/02/16 06:55 Discharge Summary Reason For Visit: COPD ABDOMINAL PAIN HX CARDIAC PACEMAKER Current Active Problems Abdominal pain (Acute) Azotemia (Acute) COPD (chronic obstructive pulmonary disease) (Acute) History of colonic polyps (Acute) Hypotension (Acute) Left lower quadrant pain (Acute) Microscopic hematuria (Acute) Old cerebrovascular accident (CVA) without late effect (Acute) Abdominal aortic aneurysm (Chronic) Adequate anticoagulation on anticoagulant therapy (Chronic) Afib (Chronic) CAD (coronary artery disease) (Chronic) History of permanent cardiac pacemaker placement (Chronic) Hyperlipidemia (Chronic) Hypertension (Chronic) Procedures: Principal: CT SCAN ABD Other Procedures: LABS XRAYS Hospital Course: ADMITTED AND WORKED UP, STARTED ON FLAGYLL, IV LASIX FOR ABD PAIN AND ACUTE ON CHRONIC CHF, COLONOSCOPY OUTPATIENT Condition: Improved - Instructions Diet, Activity, Other Instructions: LOW SODIUM Disposition: [facility]P FACILITY - Home Medications Comprehensive Discharge Medication List: Ambulatory Orders Amlodipine Besylate [Norvasc -] 5 mg PO DAILY 04/22/16 Budesonide/Formeterol Fumarate [SYMBICORT 160/4.5mcg -] 2 inh PO BID 04/22/16 Duloxetine HCl 60 mg PO DAILY 04/22/16 Ferrous Sulfate 325 mg PO DAILY 04/22/16 Lisinopril 10 mg PO DAILY 04/22/16 Metoprolol Succinate [Toprol Xl] 50 mg PO DAILY 04/22/16 Pregabalin [Lyrica] 100 mg PO BID 04/22/16 Rivaroxaban [Xarelto -] 20 mg PO DAILY 04/22/16 Tamsulosin HCl [Flomax] 0.4 mg PO DAILY 04/22/16 Zolpidem Tartrate 10 mg PO HS PRN 04/22/16 Albuterol 0.083% Nebulizer Suki [Ventolin 0.083% Nebulizer Soln -] 1 amp NEB Q6HPO #60 amp 04/28/16 Donepezil HCl 5 mg PO DAILY 05/27/16 Lovastatin 40 mg PO .MWF NIGHTLY 07/31/16 Mineral Oil/Pet Hy-Phl [Aquaphor -] 1 applic TP BID PRN 07/31/16 Triamcinolone 0.1% Cream [Aristocort 0.1% Cream -] 1 applic TP BID 07/31/16 Acetaminophen [Tylenol .Regular Strength -] 650 mg PO Q6H PRN #0 tablet Amlodipine Besylate [Norvasc -] 5 mg PO DAILY tablet 08/02/16 Clotrimazole [Lotrimin -] 1 applic TP BID tube 08/02/16 Donepezil HCl [Aricept -] 5 mg PO DAILY tablet 08/02/16 Furosemide [Lasix -] 40 mg PO DAILY tablet 08/02/16 Lisinopril [Prinivil] 10 mg PO DAILY tablet 08/02/16 Metronidazole [Flagyl -] 250 mg PO TID #21 tablet 08/02/16 Polyethylene Glycol 3350 [Miralax 119 gm Btl -] 34 gm PO DAILY bottle 08/02/16 Rivaroxaban [Xarelto -] 20 mg PO DAILY tablet 08/02/16
[2016-08-02] MEDS ORDERED: FUROSEMIDE 40 MG TABLET (FP) PO SCH (10:00)
[2016-08-02 10:37] VITALS: BP 132/76; TEMP 98.2
--- NOTE | 2016-08-02 10:49 | PN ---
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 (short form) - Note 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: PULMONARY Denies shortness of breath or chest pain. Saturating 83% on room air but improved with oxygen which he has at home. Last Vital Signs Temp Pulse Resp BP Pulse Ox 98.2 F 65 18 132/76 94 L 08/02/16 10:00 08/02/16 10:00 08/02/16 10:00 08/02/16 10:00 08/01/16 21:00 Gen: NAD at rest Heart: RRR Lung: distant breath sounds Abd: soft, nontender Ext: no edema CBC, BMP 08/01/16 06:15 08/02/16 06:55 Active Medications Acetaminophen (Tylenol -) 650 mg PO Q6H PRN PRN Reason: FEVER OR PAIN Albuterol Sulfate (Ventolin 0.083% Nebulizer Soln -) 1 amp NEB QIDR [facility] Last Admin: 08/02/16 06:53 Dose: 1 amp Albuterol/Ipratropium (Duoneb -) 1 amp NEB Q6H PRN PRN Reason: SHORTNESS OF BREATH Last Admin: 07/31/16 15:17 Dose: 1 amp Amlodipine Besylate (Norvasc -) 5 mg PO DAILY [facility] Last Admin: 08/02/16 09:33 Dose: 5 mg Budesonide/Formoterol Fumarate (Symbicort 160/4.5mcg -) 1 puff IH BID [facility] Last Admin: 08/02/16 09:34 Dose: 1 puff Clotrimazole (Lotrimin 1% Cream -) 1 applic TP BID [facility] Last Admin: 08/02/16 09:34 Dose: 1 applic Dicyclomine HCl (Bentyl -) 10 mg PO TID [facility] Last Admin: 08/02/16 06:19 Dose: 10 mg Donepezil HCl (Aricept -) 5 mg PO DAILY [facility] Last Admin: 08/02/16 09:33 Dose: 5 mg Duloxetine HCl (Cymbalta -) 60 mg PO DAILY [facility] Last Admin: 08/02/16 09:35 Dose: 60 mg Ferrous Sulfate (Feosol -) 325 mg PO DAILY [facility] Last Admin: 08/02/16 09:32 Dose: 325 mg Fluocinonide (Lidex 0.05% Cream -) 1 applic TP DAILY [facility] Last Admin: 05/11/17 09:34 Dose: 1 applic Furosemide (Lasix -) 40 mg PO DAILY [facility] Last Admin: 08/02/16 09:33 Dose: 40 mg Lisinopril (Prinivil) 10 mg PO DAILY [facility] Last Admin: 08/02/16 09:32 Dose: 10 mg Metoprolol Succinate (Toprol Xl -) 50 mg PO DAILY [facility] Last Admin: 08/02/16 09:36 Dose: 50 mg Metronidazole (Flagyl -) 250 mg PO TID [facility] Last Admin: 08/02/16 06:19 Dose: 250 mg Polyethylene Glycol (Miralax (For Daily Use) -) 34 gm PO DAILY [facility] Last Admin: 08/01/16 19:02 Dose: 34 gm Pregabalin (Lyrica -) 100 mg PO BID [facility] Last Admin: 08/02/16 09:32 Dose: 100 mg Rivaroxaban (Xarelto -) 20 mg PO DAILY [facility] Last Admin: 08/02/16 09:41 Dose: 20 mg Tamsulosin HCl (Flomax -) 0.4 mg PO DAILY@0830 [facility] Last Admin: 08/02/16 09:32 Dose: 0.4 mg Zolpidem Tartrate (Ambien -) 10 mg PO HS PRN PRN Reason: INSOMNIA A/P Chronic Hypoxic Respiratory Failure COPD Atrial Fibrillation CAD BPH h/o CVA HTN - inhaled bronchodilators - O2 to keep SpO2>90% - rate controlled - continue anticoagulation - outpt f/u, PFTs
[2016-08-02] MEDS: POLYETHYLENE GLYCOL 3350 119 GM BTL PO SCH (11:15)
[2016-08-02 11:29] VITALS: PULSE 70
--- NOTE | 2016-08-02 13:20 | PN ---
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, Physician History of Present Illness: Pt seen and examined at bedside. He is awake and alert. He feels that the abdominal pain has improved. - Current Medication List Current Medications: Active Medications Acetaminophen (Tylenol -) 650 mg PO Q6H PRN PRN Reason: FEVER OR PAIN Albuterol Sulfate (Ventolin 0.083% Nebulizer Soln -) 1 amp NEB QIDR [facility] Last Admin: 08/02/16 11:29 Dose: 1 amp Albuterol/Ipratropium (Duoneb -) 1 amp NEB Q6H PRN PRN Reason: SHORTNESS OF BREATH Last Admin: 07/31/16 15:17 Dose: 1 amp Amlodipine Besylate (Norvasc -) 5 mg PO DAILY [facility] Last Admin: 08/02/16 09:33 Dose: 5 mg Budesonide/Formoterol Fumarate (Symbicort 160/4.5mcg -) 1 puff IH BID [facility] Last Admin: 08/02/16 09:34 Dose: 1 puff Clotrimazole (Lotrimin 1% Cream -) 1 applic TP BID [facility] Last Admin: 08/02/16 09:34 Dose: 1 applic Dicyclomine HCl (Bentyl -) 10 mg PO TID [facility] Last Admin: 08/02/16 06:19 Dose: 10 mg Donepezil HCl (Aricept -) 5 mg PO DAILY [facility] Last Admin: 08/02/16 09:33 Dose: 5 mg Duloxetine HCl (Cymbalta -) 60 mg PO DAILY [facility] Last Admin: 08/02/16 09:35 Dose: 60 mg Ferrous Sulfate (Feosol -) 325 mg PO DAILY [facility] Last Admin: 08/02/16 09:32 Dose: 325 mg Fluocinonide (Lidex 0.05% Cream -) 1 applic TP DAILY [facility] Last Admin: 08/02/16 09:34 Dose: 1 applic Furosemide (Lasix -) 40 mg PO DAILY [facility] Last Admin: 08/02/16 09:33 Dose: 40 mg Lisinopril (Prinivil) 10 mg PO DAILY [facility] Last Admin: 08/02/16 09:32 Dose: 10 mg Metoprolol Succinate (Toprol Xl -) 50 mg PO DAILY [facility] Last Admin: 08/02/16 09:36 Dose: 50 mg Metronidazole (Flagyl -) 250 mg PO TID [facility] Last Admin: 08/02/16 06:19 Dose: 250 mg Polyethylene Glycol (Miralax (For Daily Use) -) 34 gm PO DAILY [facility] Last Admin: 08/02/16 11:15 Dose: 34 gm Pregabalin (Lyrica -) 100 mg PO BID [facility] Last Admin: 08/02/16 09:32 Dose: 100 mg Rivaroxaban (Xarelto -) 20 mg PO DAILY [facility] Last Admin: 08/02/16 09:41 Dose: 20 mg Tamsulosin HCl (Flomax -) 0.4 mg PO DAILY@0830 [facility] Last Admin: 08/02/16 09:32 Dose: 0.4 mg Zolpidem Tartrate (Ambien -) 10 mg PO HS PRN PRN Reason: INSOMNIA - Objective Vital Signs: Vital Signs Temperature 98.2 F 08/02/16 10:00 Pulse Rate 70 08/02/16 11:28 Respiratory Rate 18 08/02/16 10:00 Blood Pressure 132/76 08/02/16 10:00 O2 Sat by Pulse Oximetry (%) 93 L 08/02/16 11:28 Constitutional: Yes: Calm Eyes: Yes: Conjunctiva Clear HENT: Yes: Atraumatic Neck: Yes: Supple Cardiovascular: Yes: S1, S2 Gastrointestinal: Yes: Soft Genitourinary: Yes: WNL Musculoskeletal: Yes: WNL Edema: No Neurological: Yes: Oriented, Pre-Existing Deficit Psychiatric: Yes: Oriented Labs: CBC, BMP 08/01/16 06:15 08/02/16 06:55 INR, PTT INR 1.51 (0.82-1.09) H 07/30/16 19:40 Problem List - Problems (1) Abdominal pain Code(s): R10.9 - UNSPECIFIED ABDOMINAL PAIN Qualifiers: Abdominal location: left lower quadrant Qualified Code(s): R10.32 - Left lower quadrant pain (2) COPD (chronic obstructive pulmonary disease) Code(s): J44.9 - CHRONIC OBSTRUCTIVE PULMONARY DISEASE, UNSPECIFIED Qualifiers : COPD type: COPD with acute exacerbation Qualified Code(s): J44.1 - Chronic obstructive pulmonary disease with (acute) exacerbation (3) Abdominal aortic aneurysm Code(s): I71.4 - ABDOMINAL AORTIC ANEURYSM, WITHOUT RUPTURE Qualifiers: Presence of rupture: without rupture Qualified Code(s): I71.4 - Abdominal aortic aneurysm, without rupture (4) CAD (coronary artery disease) Code(s): I25.10 - ATHSCL HEART DISEASE OF [place] CORONARY ARTERY W/O ANG PCTRS (5) Azotemia Code(s): R79.89 - OTHER SPECIFIED ABNORMAL FINDINGS OF BLOOD CHEMISTRY (6) Microscopic hematuria Code(s): R31.29 - OTHER MICROSCOPIC HEMATURIA Assessment/Plan Current Medications Generic Name Dose Route Start Last Admin Trade Name Freq PRN Reason Stop Dose Admin Albuterol Sulfate 1 amp 07/31/16 18:00 08/02/16 11:29 Ventolin 0.083% Nebulizer Soln - NEB 1 amp QIDR [facility] Administration Amlodipine Besylate 5 mg 07/31/16 10:00 08/02/16 09:33 Norvasc - PO 5 mg DAILY [facility] Administration Budesonide/Formoterol Fumarate 1 puff 07/31/16 10:00 08/02/16 09:34 Symbicort 160/4.5mcg - IH 1 puff BID DI[facility] Administration Clotrimazole 1 applic 07/31/16 10:00 08/02/16 09:34 Lotrimin 1% Cream - TP 1 applic BID [facility] Administration Dicyclomine HCl 10 mg 08/01/16 22:00 08/02/16 06:19 Bentyl - PO 10 mg TID [facility] Administration Donepezil HCl 5 mg 07/31/16 10:00 08/02/16 09:33 Aricept - PO 5 mg DAILY [facility] Administration Duloxetine HCl 60 mg 07/31/16 10:00 08/02/16 09:35 Cymbalta - PO 60 mg DAILY [facility] Administration Ferrous Sulfate 325 mg 07/31/16 10:00 08/02/16 09:32 Feosol - PO 325 mg DAILY [facility] Administration Fluocinonide 1 applic 07/31/16 10:00 08/02/16 09:34 Lidex 0.05% Cream - TP 1 applic DAILY [facility] Administration Furosemide 40 mg 08/02/16 10:00 08/02/16 09:33 Lasix - PO 40 mg DAILY [facility] Administration Lisinopril 10 mg 07/31/16 10:00 08/02/16 09:32 Prinivil PO 10 mg DAILY [facility] Administration Metoprolol Succinate 50 mg 07/31/16 10:00 08/02/16 09:36 Toprol Xl - PO 50 mg DAILY [facility] Administration Metronidazole 250 mg 08/01/16 22:00 08/02/16 06:19 Flagyl - PO 250 mg TID [facility] Administration Polyethylene Glycol 34 gm 08/01/16 17:45 08/02/16 11:15 Miralax (For Daily Use) - PO 34 gm DAILY [facility] Administration Pregabalin 100 mg 07/31/16 21:23 08/02/16 09:32 Lyrica - PO 100 mg BID [facility] Administration Rivaroxaban 20 mg 07/31/16 10:00 08/02/16 09:41 Xarelto - PO 20 mg DAILY [facility] Administration Tamsulosin HCl 0.4 mg 07/31/16 08:30 08/02/16 09:32 Flomax - PO 0.4 mg DAILY@0830 [facility] Administration Zolpidem Tartrate 10 mg 07/31/16 06:44 Ambien - PO HS PRN INSOMNIA Impression 1. azotemia improving/CKD stage 3 2. abdominal pain 3. AAA 4. hx CVA 5. a-fib 6. HTN 7. insomnia 8. COPD on home oxygen 9. CAD 10. BPH Plan - renal function is stable - cont current meds - discussed care with pts , she will follow up with GI - outpt follow up - urology eval as outpt - renal ultrasound reviewed, urology eval for renal lesion - pt does have microscopic hematuria and this will need to be evaluated Dr Cassidy
== END 2016-08-02 13:08 | disposition home or self-care (01) | DRG 391 ==
LOC: JER 18:45 → JERBED 07-31 01:39 → J8W 07-31 12:41
PROVIDERS: ADMIT Internal Medicine; ATTEND Family Medicine
DX: K58.9 Irritable bowel syndrome, unspecified (principal); I50.43 Acute on chronic combined systolic (congestive) and diastolic (congestive) heart failure; I69.354 Hemiplegia and hemiparesis following cerebral infarction affecting left non-dominant side; J44.1 Chronic obstructive pulmonary disease with (acute) exacerbation; I25.10 Atherosclerotic heart disease of native coronary artery without angina pectoris; Z95.1 Presence of aortocoronary bypass graft; Z95.5 Presence of coronary angioplasty implant and graft; Z95.0 Presence of cardiac pacemaker; Z99.81 Dependence on supplemental oxygen; I48.0 Paroxysmal atrial fibrillation; Z79.01 Long term (current) use of anticoagulants; I73.9 Peripheral vascular disease, unspecified; I25.5 Ischemic cardiomyopathy; Z87.891 Personal history of nicotine dependence; N40.0 Benign prostatic hyperplasia without lower urinary tract symptoms; G47.00 Insomnia, unspecified; R31.29 Other microscopic hematuria; I11.0 Hypertensive heart disease with heart failure; I50.9 Heart failure, unspecified
CPT/HCPCS: 36415; 71010-TC; 74176-TC; 76775-TC; 76856-TC; 80048; 80053; 80061; 81003; 81015; 82272; 82550; 83036; 83605; 83690; 83721; 84484; 85025; 85027; 85610; 86850; 86900; 86901; 93005; 93010; 93306-TC; 93880-TC; 94640; 97116-GP; 97161-GP; 99284-25

== ENCOUNTER 2016-09-28 05:58 | Day surgery (SDC) | payer OTHER ==
[2016-09-21 10:28] VITALS: BMI 24.9
[2016-09-28] MEDS ORDERED: LIDOCAINE HCL 2% (20ML MULTI-DOSE VIAL) NR ONE (07:06)
[2016-09-28] MEDS ORDERED: ePHEDrine SULFATE 50 MG/1 ML AMPULE ONE (07:08)
[2016-09-28] MEDS ORDERED: SUCCINYLCHOLINE CHLORIDE 200 MG/10 ML VIAL ONE (07:09)
[2016-09-28] MEDS ORDERED: PROPOFOL 20 ML ONE ×4 (07:09)
[2016-09-28] MEDS ORDERED: MIDAZOLAM HCL 2 MG/2 ML SINGLE DOSE VIAL ONE (07:09)
[2016-09-28] MEDS ORDERED: LIDOCAINE HCL 2% (50ML VIAL) INF ONE (08:00)
[2016-09-28 08:58] VITALS: TEMP 97.6
[2016-09-28 09:34] VITALS: BP 134/82; PULSE 81
[2016-09-28] MEDS ORDERED: ONDANSETRON 4 MG/2 ML VIAL IVPUSH PRN (11:57)
[2016-09-28] MEDS ORDERED: oxyCODONE HCL 5 MG TABLET PO PRN (11:57)
[2016-09-28] MEDS ORDERED: LACTATED RINGERS SOLUTION 1,000 ML IV SCH (12:00)
--- NOTE | 2016-09-30 16:48 | OP ---
DATE OF OPERATION: 09/28/2016 LOCATION: [facility] SURGEON: Pio Gilman MD GASKET FORMER: RACHELL Amato PREOPERATIVE DIAGNOSIS: Left carpal tunnel syndrome. POSTOPERATIVE DIAGNOSIS: Left carpal tunnel syndrome. PROCEDURE: Left carpal tunnel release (25135). FINDINGS: Thickened transverse carpal ligament with impingement upon median nerve. PROCEDURE: Under sterile conditions, the upper extremity was prepped and draped in a sterile fashion. Incision was made along the longitudinal portion of the carpal tunnel. A longitudinal incision was made along the proximal portion of the palm, following the palm crease. This was taken down to the transcarpal ligament, which was released initially with scalpel and then extended proximally and distally using blunt tenotomy scissors. The median nerve was identified and completely released from impingement by the transcarpal ligament. The wound was then irrigated with copious amounts of irrigation. Skin was closed with 5-0 nylon in single interrupted sutures. Noah [id number]
== END 2016-09-28 09:45 | disposition home or self-care (01) ==
LOC: FASU 05:58
PROVIDERS: ATTEND Orthopaedic Surgery
PROC: 01N50ZZ Release Median Nerve, Open Approach (ICD-10-PCS; principal; 2016-09-28 07:38)
DX: G56.02 Carpal tunnel syndrome, left upper limb (principal)

== ENCOUNTER 2016-12-04 06:43 | Day surgery (SDC) | payer OTHER ==
[2016-12-04 08:26] VITALS: BP 99/65; PULSE 87; TEMP 98.7; BMI 24.1
[2016-12-04] MEDS ORDERED: ALBUTEROL SO4 0.083% IH SOL 2.5 MG/3 ML VIAL.NEB. NEB ONE (08:39)
[2016-12-04] MEDS ORDERED: methylPREDNISolone NA SUCC 40 MG/1 ML VIAL ONE (08:40)
[2016-12-04] MEDS ORDERED: PROPOFOL 20 ML ONE (09:08)
[2016-12-04] MEDS ORDERED: MIDAZOLAM HCL 2 MG/2 ML SINGLE DOSE VIAL ONE (09:09)
== END 2016-12-04 09:54 | disposition home or self-care (01) ==
LOC: JASU-ENDO 06:43
PROVIDERS: ATTEND Internal Medicine Gastroenterology
PROC: 0DJD8ZZ Inspection of Lower Intestinal Tract, Via Natural or Artificial Opening Endoscopic (ICD-10-PCS; principal; 2016-12-04 09:00)
DX: Z53.8 Procedure and treatment not carried out for other reasons (principal)
CPT/HCPCS: 94640

== ENCOUNTER 2017-01-09 04:11 | Inpatient (IN) | payer OTHER ==
[2017-01-09 04:26] VITALS: BMI 25.3
--- NOTE | 2017-01-09 04:28 | PDOC ---
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 Patient states his pain woke him up from sleep is localized to central chest, more to the L wall with no radiation. Patients pain is associated with SOB however denies any diaphoresis, nausea, LE edema. Patients called 911 and EMS administered Aspirin and sublingual nitroglycerin en route. Upon arrival to the ED, patients pain resolved and presents for further evaluation. He denies headache or dizziness. He denies fever, chills, abdominal pain, vomit , diarrhea or constipation. He denies dysuria, frequency, urgency or hematuria. Patient denies sick contacts or recent travel. Allergies: Prednisone Past surgical history: AAA repair, PPM, left arm angioplasty, lower extremity bypass, cardiac stents x 2, CABG, left femur tamara placement s/p fx Social history: None PCP: Alyssa Solomon MD on [facility] [address] Dump Grader: Rad Hines MD Counselor Manager: Jake Fleming MD <Laury Ventura - Last Filed: 01/09/17 06:02> - General Chief Complaint: Chest Pain Stated Complaint: CHEST PAIN Time Seen by Provider: 01/09/17 04:27 Past History - Past Medical History Anemia: No Asthma: No Cancer: No Cardiac Disorders: Yes (STENTS 2000/STENT IN 2015) CVA: Yes (01/23/12/DURING TRIPLE AA REPAIR) COPD: Yes CHF: No Dementia: No (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) Diabetes: No GI Disorders: No Disorders: Yes (BPH) HTN: Yes Hypercholesterolemia: Yes Liver Disease: No Seizures: No Thyroid Disease: No - Surgical History Abdominal Surgery: Yes (S/P AAA) Cardiac Surgery: Yes (BYPASS 2013, PPM/ AAA REPAIR/2011) Neurologic Surgery: No Orthopedic Surgery: Yes (FRACTURE RT FEMUR 02/2015 S/P ORIF) - Immunization History Immunization Up to Date: Yes - Suicide/Smoking/Psychosocial Hx Smoking History: Never smoked Have you smoked in the past 12 months: No If you are a former smoker, when did you quit?: 2006 Cigars Per Day: 0 Information on smoking cessation initiated: No Hx Alcohol Use: No Drug/Substance Use Hx: No Substance Use Type: None Hx Substance Use Treatment: No <Donato Monroy - Last Filed: 01/09/17 05:21> <Laury Ventura - Last Filed: 01/09/17 06:02> - Past Medical History Allergies/Adverse Reactions: Allergies Allergy/AdvReac Type Severity Reaction Status Date / Time prednisone AdvReac Intermediate "too wired" Verified 01/09/17 04:22 Home Medications: Ambulatory Orders Budesonide/Formeterol Fumarate [SYMBICORT 160/4.5mcg -] 2 inh PO BID 04/22/16 Ferrous Sulfate 325 mg PO DAILY 04/22/16 Metoprolol Succinate [Toprol Xl] 50 mg PO DAILY 04/22/16 Pregabalin [Lyrica] 100 mg PO BID 04/22/16 Tamsulosin HCl [Flomax] 0.4 mg PO HS 04/22/16 Lovastatin 40 mg PO .MWF NIGHTLY 07/31/16 Mineral Oil/Pet Hy-Phl [Aquaphor -] 1 applic TP BID PRN 07/31/16 Amlodipine Besylate [Norvasc -] 5 mg PO DAILY tablet 08/02/16 Lisinopril [Prinivil] 10 mg PO DAILY tablet 08/02/16 Albuterol 0.083% Nebulizer Suki [Ventolin 0.083% Nebulizer Soln -] 1 amp NEB Q8H 09/21/16 Rivaroxaban [Xarelto -] 20 mg PO HS 09/21/16 Duloxetine HCl [Cymbalta] 60 mg PO DAILY 09/28/16 Furosemide [Lasix -] 20 mg PO DAILY 12/04/16 Review of Systems - Review of Systems Able to Perform ROS?: Yes Comments:: 01/09/17 04:54 CONSTITUTIONAL: Absent: fever, chills, diaphoresis, generalized weakness, malaise, loss of appetite HEENT: Absent: rhinorrhea, nasal congestion, throat pain, throat swelling, difficulty swallowing, mouth swelling, ear pain, eye pain, visual Changes CARDIOVASCULAR: +chest pain. Absent: syncope, palpitations, irregular heart rate, lightheadedness, peripheral edema RESPIRATORY: Absent: cough, shortness of breath, dyspnea with exertion, orthopnea, wheezing, stridor, hemoptysis GASTROINTESTINAL: Absent: abdominal pain, abdominal distension, nausea, vomiting, diarrhea, constipation, melena, hematochezia GENITOURINARY: Absent: dysuria, frequency, urgency, hesitancy, hematuria, flank pain, genital pain MUSCULOSKELETAL: Absent: myalgia, arthralgia, joint swelling SKIN: Absent: rash, itching, pallor HEMATOLOGIC/IMMUNOLOGIC: Absent: easy bleeding, easy bruising, lymphadenopathy, frequent infections ENDOCRINE: Absent: unexplained weight gain, unexplained weight loss, heat intolerance, cold intolerance NEUROLOGIC: Absent: headache, focal weakness or paresthesias, dizziness, unsteady gait, seizure, mental status changes, bladder or bowel incontinence PSYCHIATRIC: Absent: anxiety, depression, suicidal or homicidal ideation, hallucinations. <Laury Ventura - Last Filed: 01/09/17 06:02> *Physical Exam - Vital Signs Last Vital Signs Temp Pulse Resp BP Pulse Ox 70 16 100/70 88 L 01/09/17 04:22 01/09/17 04:22 01/09/17 04:22 01/09/17 04:22 <Donato Monroy - Last Filed: 01/09/17 05:21> - Vital Signs Last Vital Signs Temp Pulse Resp BP Pulse Ox 70 16 100/70 88 L 01/09/17 04:22 01/09/17 04:22 01/09/17 04:22 01/09/17 04:22 - Physical Exam Comments: 01/09/17 04:54 GENERAL: Well developed, well nourished. Awake and alert. In no acute distress. HEENT: Normocephalic, atraumatic. PERRLA, EOMI. No conjunctival pallor. Sclerae are non -icteric. Moist mucous membranes. Oropharynx is clear. NECK: Supple. Full ROM. No JVD. Carotid pulses 2+ and symmetric, without bruits. No thyromegaly. No lymphadenopathy. CARDIOVASCULAR: Regular rate and rhythm. No murmurs, rubs, or gallops. Distal pulses are 2+ and symmetric. PULMONARY: No evidence of respiratory distress. Lungs clear to auscultation bilaterally. No wheezing, rales or rhonchi. ABDOMINAL: Soft. Non-tender. Non-distended. No rebound or guarding. No organomegaly. Normoactive bowel sounds. MUSCULOSKELETAL Normal range of motion at all joints. No bony deformities or tenderness. No CVA tenderness. EXTREMITIES: No cyanosis. No clubbing. No edema. No calf tenderness. SKIN: Warm and dry. Normal capillary refill. No rashes. No jaundice. NEUROLOGICAL: Alert, awake, appropriate. Cranial nerves 2-12 intact. No deficits to light touch and temperature in face, upper extremities and lower extremities. No motor deficits in the in face, upper extremities and lower extremities. Normoreflexic in the upper and lower extremities. Normal speech. Toes are downgoing bilaterally. Gait is normal without ataxia. PSYCHIATRIC: Cooperative. Good eye contact. Appropriate mood and affect. <Laury Ventura - Last Filed: 01/09/17 06:02> ED Treatment Course - LABORATORY CBC & Chemistry Diagram: 01/09/17 04:33 01/09/17 04:33 <Donato Monroy - Last Filed: 01/09/17 05:21> - LABORATORY CBC & Chemistry Diagram: 01/09/17 04:33 01/09/17 04:33 - ADDITIONAL ORDERS Additional order review: 01/09/17 04:33 RBC 5.27 MCV 87.6 MCHC 32.7 RDW 16.3 H MPV 9.2 Neutrophils % 61.1 Lymphocytes % 21.7 D Monocytes % 9.8 Eosinophils % 6.5 H Basophils % 0.9 <Laury Ventura - Last Filed: 01/09/17 06:02> Medical Decision Making - Medical Decision Making 01/09/17 05:21 Dr. Monroy: The scribe's documentation has been prepared under my direction and personally reviewed by me in its entirery. I confirm that the note above accurately reflects all work, treatment, procedures, and medical decision making performed by me. <Donato Monroy - Last Filed: 01/09/17 05:21> - Medical Decision Making 01/09/17 05:[address] Escamilla's service via phone answering service. Awaiting call back. Dr. Lamas groundwater monitoring technician. 01/09/17 06:01 Second call placed Awaiting call back. 01/09/17 06:02 Page returned. Patients case was discussed <Laury Ventura - Last Filed: 01/09/17 06:02> *DC/Admit/Observation/Transfer - Discharge Dispostion Admit: Yes <Donato Monroy - Last Filed: 01/09/17 05:21> - Attestations Scribe Attestion: 01/09/17 04:55 Documentation prepared by Laury Ventura, acting as medical coordinator pesticide use for Donato Monroy DO. <Laury Ventura - Last Filed: 01/09/17 06:02> Diagnosis at time of Disposition: Chest pain Qualifiers: Chest pain type: unspecified Qualified Code(s): R07.9 - Chest pain, unspecified
[2017-01-09 04:41] LABS: BASOPHIL 0.9 % (0-2.0); EOSINOPHIL 6.5 % (0-4.5); MCH 28.7 pg (25.7-33.7); MCHC 32.7 g/dl (32.0-35.9); MEAN CELL VOLUME 87.6 fl (80-96); MEAN PLT VOLUME 9.2 fl (7.5-11.1); NEUTROPHILS 61.1 % (42.8-82.8); PLATELET COUNT 194 K/MM3 (134-434); RDW 16.3 % (11.9-15.9); WHITE BLOOD COUNT 7.8 K/mm3 (4.0-10.0)
[2017-01-09 04:56] LABS: INR 1.26 (0.82-1.09); PROTHROMBIN TIME (PATIENT) 14.2 SEC (9.98-11.88)
[2017-01-09 05:09] LABS: ALBUMIN 3.7 g/dl (3.4-5.0); ANION GAP 6 (8-16); BILIRUBIN,TOTAL 0.3 mg/dL (0.2-1.0); CALCIUM 8.6 mg/dL (8.5-10.1); CO2 29 mmol/L (21-32); CREATININE 1.5 mg/dL (0.7-1.3); GLUCOSE,RANDOM 89 mg/dL (74-106); MAGNESIUM 2.2 mg/dL (1.8-2.4); SGOT/AST 21 U/L (15-37); SGPT/ALT 18 U/L (12-78); TOT PROT 7.5 g/dl (6.4-8.2)
[2017-01-09 05:12] LABS: ALK PHOS 55 U/L (45-117); CPK 196 IU/L (39-308); TROPONIN I < 0.02 ng/ml (0.00-0.05)
[2017-01-09] MEDS ORDERED: MINERAL OIL/PET HY-PHL TOPICAL OINTMENT 454 GM JAR TP PRN (07:36)
--- NOTE | 2017-01-09 09:18 | CON.CARD ---
Cardiology Consult (text) - Consultation Consultation Note: Cardiology Consult Assessment/Plan 76 year old man with a history of HTN, HLD, Afib, CAD s/p CABG s/p stents, PPM, ICM refused ICD in the past, PAD, Thoracic aortic aneursym, CVA with residual L sided weakness, COPD known to me from office presents to ER for evaluation of episode of central chest burning that woke him from sleep. Denies SOB, N/V/ diaphoresis. Has not had any exertional chest pain lately, but chronic stable B[place]OCK. Tried taking Tums with minimal relief. Was given SLNTG by EMS with some relied but "took 5 minutes" to work. Denies fever, chills, cough. No edema or PND. PMH: as above, also prior right iliac aneurysm repair at [facility]. AAA under surveillance. ALL: Prednisone MEDS: reviewed in EMR FH: non-contributory SH: former smoker, lives w/ . Physical Exam: Anicteric CV: S1, 2. RRR. Chest: chronically decreased breath sounds b/l No rales, no wheezing Abd: soft, NT. 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) CXR: no active dz Laboratory Tests 01/09/17 01/09/17 04:33 04:33 WBC 7.8 Hgb 15.1 Plt Count 194 Sodium 139 Potassium 4.3 Creatinine 1.5 H D ALT 18 Alkaline Phosphatase 55 Creatine Kinase 196 Troponin I < 0.02 Selected Entries 01/09/17 06:21 Temperature 97.5 F L Pulse Rate [ 66 Apical] Blood Pressure 131/78 [Left Arm] O2 Sat by Pulse 98 Oximetry (%) Oxygen Flow 2 Rate IMP: CAD/PAD/H/o Thoracic, abdominal and iliac aneurysms Epigastric and chest pain: mixed features, typical and atypical components -Differential includes GERD, pancreatic pathology, gastritis, CAD (angina), consideration for possible expansion of AAA REC: 1. Cycle cardiac enzymes 2. Repeat Echo 3. Will order CT A/P without contrast to c/w previous (AAA 5.4 last scan), creat 1.5 precludes use of contrast. 4. To continue Xarelto for AF and low dose ASA for PAD and chronic CAD. 5. Trial of PPI 6. Will consider adding Ranexa based on above diagnostic evaluation.
[2017-01-09] MEDS: PREGABALIN 100 MG CAPSULE PO SCH ×2 (09:48→21:27)
[2017-01-09] MEDS: LISINOPRIL 10 MG TABLET (FP) PO SCH (09:48)
[2017-01-09] MEDS: METOPROLOL SUCCINATE 50 MG TAB.SR.24H (FP) PO SCH (09:48)
[2017-01-09] MEDS: FUROSEMIDE 20 MG TABLET (FP) PO SCH (09:48)
[2017-01-09] MEDS: DULoxetine HCL 30 MG CAPSULE.DR (FP) PO SCH (09:48)
[2017-01-09] MEDS: ASPIRIN COATED 81 MG TABLET.EC PO SCH (09:48)
[2017-01-09] MEDS: PANTOPRAZOLE 40 MG TABLET (FP) PO SCH (09:52)
[2017-01-09] MEDS: amLODIPine BESYLATE 5 MG TABLET (FP) PO SCH (09:52)
[2017-01-09] MEDS: BUDESONIDE/FORMETEROL FUMARATE 160/4.5 mcg INHALER IH SCH ×3 (09:52→21:30)
--- NOTE | 2017-01-09 11:48 | EKG ---
Test Reason : Blood Pressure : / mmHG Vent. Rate : 066 BPM Atrial Rate : 066 BPM P-R Int : 144 ms QRS Dur : 124 ms QT Int : 438 ms P-R-T Axes : 080 265 094 degrees QTc Int : 459 ms Atrial-sensed ventricular-paced rhythm Biventricular pacemaker detected ABNORMAL ECG WHEN COMPARED WITH ECG OF 31-JUL-2016 01:06, VENT. RATE HAS INCREASED BY 3 BPM Confirmed by MANISH ARREDONDO, KAMALA ([id number]) on 01/09/2017 11:47:40 AM Referred By: Confirmed By:KAMALA HAMMOND MD
--- NOTE | 2017-01-09 11:49 | EKG ---
Test Reason : Blood Pressure : / mmHG Vent. Rate : 061 BPM Atrial Rate : 061 BPM P-R Int : 132 ms QRS Dur : 130 ms QT Int : 424 ms P-R-T Axes : 088 268 092 degrees QTc Int : 426 ms Atrial-sensed ventricular-paced rhythm Biventricular pacemaker detected ABNORMAL ECG WHEN COMPARED WITH ECG OF 09-JAN-2017 04:23, VENT. RATE HAS DECREASED BY 5 BPM Confirmed by MANISH ARREDONDO, KAMALA ([id number]) on 01/09/2017 11:48:42 AM Referred By: JEMIMA BOURNE Confirmed By:KAMALA HAMMOND MD
[2017-01-09 12:04] LABS: CPK 172 IU/L (39-308)
[2017-01-09 12:05] LABS: TROPONIN I < 0.02 ng/ml (0.00-0.05)
--- NOTE | 2017-01-09 15:53 | HP ---
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 Patient states his pain woke him up from sleep is localized to central chest, more to the L wall with no radiation. Patients pain is associated with SOB however denies any diaphoresis, nausea, LE edema. Patients called 911 and EMS administered Aspirin and sublingual nitroglycerin en route. Upon arrival to the ED, patients pain resolved and presents for further evaluation. He denies headache or dizziness. He denies fever, chills, abdominal pain, vomit , diarrhea or constipation. He denies dysuria, frequency, urgency or hematuria. Patient denies sick contacts or recent travel. 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, Seizure Cardiovascular: Yes: AFIB, Aneurysm, CAD, CHF, HTN, Hyperlipdemia, Murmur, Other (peripheral artery disease) Pulmonary: Yes: COPD Renal/: Yes: BPH - Past Surgical History Past Surgical History: Yes: AAA Repair, Bypass (lower ext), Permanent Pacemaker , Stent (cardiac x 2) - Smoking History Smoking history: Never smoked Have you smoked in the past 12 months: No If you are a former smoker, when did you quit?: 2006 - Alcohol/Substance Use Hx Alcohol Use: No History of Substance Use: reports: None - Social History ADL: Family Assistance History of Recent Travel: No Home Medications - Allergies Allergies/Adverse Reactions: Allergies Allergy/AdvReac Type Severity Reaction Status Date / Time prednisone AdvReac Intermediate "too wired" Verified 01/09/17 04:22 - Home Medications Home Medications: Ambulatory Orders Budesonide/Formeterol Fumarate [SYMBICORT 160/4.5mcg -] 2 inh PO BID 04/22/16 Ferrous Sulfate 325 mg PO DAILY 04/22/16 Metoprolol Succinate [Toprol Xl] 50 mg PO DAILY 04/22/16 Pregabalin [Lyrica] 100 mg PO BID 04/22/16 Tamsulosin HCl [Flomax] 0.4 mg PO HS 04/22/16 Lovastatin 40 mg PO .MWF NIGHTLY 07/31/16 Mineral Oil/Pet Hy-Phl [Aquaphor -] 1 applic TP BID PRN 07/31/16 Amlodipine Besylate [Norvasc -] 5 mg PO DAILY tablet 08/02/16 Lisinopril [Prinivil] 10 mg PO DAILY tablet 08/02/16 Albuterol 0.083% Nebulizer Suki [Ventolin 0.083% Nebulizer Soln -] 1 amp NEB Q8H 09/21/16 Rivaroxaban [Xarelto -] 20 mg PO HS 09/21/16 Duloxetine HCl [Cymbalta] 60 mg PO DAILY 09/28/16 Furosemide [Lasix -] 20 mg PO DAILY 12/04/16 Review of Systems - Review of Systems Constitutional: reports: Weakness Eyes: reports: No Symptoms HENT: reports: No Symptoms Neck: reports: No Symptoms Cardiovascular: reports: Chest Pain, Edema, Shortness of Breath Respiratory: reports: Cough, SOB Gastrointestinal: reports: No Symptoms Genitourinary: reports: No Symptoms Musculoskeletal: reports: Muscle Weakness Integumentary: reports: Eczema, Erythema, Other Neurological: reports: No Symptoms Endocrine: reports: No Symptoms Hematology/Lymphatic: reports: No Symptoms Psychiatric: reports: No Symptoms Physical Examination Vital Signs: Vital Signs Temperature 98.2 F 01/09/17 14:18 Pulse Rate 73 01/09/17 14:18 Respiratory Rate 18 01/09/17 14:18 Blood Pressure 141/73 01/09/17 14:18 O2 Sat by Pulse Oximetry (%) 95 01/09/17 10:59 Constitutional: Yes: Mild Distress Eyes: Yes: WNL HENT: Yes: WNL Neck: Yes: WNL Cardiovascular: Yes: WNL Respiratory: Yes: Diminished, On Nasal O2 Gastrointestinal: Yes: WNL Renal/: Yes: WNL Musculoskeletal: Yes: Muscle Weakness Extremities: Yes: Erythema Edema: Yes Edema: LLE: 1+, RLE: 1+ Peripheral Pulses WNL: Yes Integumentary: Yes: Bruising, Erythema, Rash, Venous Stasis Changes Neurological: Yes: Pre-Existing Deficit ...Motor Strength: LLE, RLE Psychiatric: Yes: WNL, Other (MILD DEMENTIA) Problem List - Problems (1) Chest pain Code(s): R07.9 - CHEST PAIN, UNSPECIFIED Qualifiers: Chest pain type: unspecified Qualified Code(s): R07.9 - Chest pain, unspecified; R07.9 - Chest pain, unspecified (2) Afib Code(s): I48.91 - UNSPECIFIED ATRIAL FIBRILLATION (3) CAD (coronary artery disease) Code(s): I25.10 - ATHSCL HEART DISEASE OF [place] CORONARY ARTERY W/O ANG PCTRS Qualifiers: Coronary Disease-Associated Artery/Lesion type: unspecified vessel or lesion type (4) Hyperlipidemia Code(s): E78.5 - HYPERLIPIDEMIA, UNSPECIFIED Qualifiers: Hyperlipidemia type: mixed hyperlipidemia Qualified Code(s): E78.2 - Mixed hyperlipidemia; E78.2 - Mixed hyperlipidemia; E78.2 - Mixed hyperlipidemia (5) Hypertension Code(s): I10 - ESSENTIAL (PRIMARY) HYPERTENSION Qualifiers: Hypertension type: essential hypertension Qualified Code(s): I10 - Essential (primary) hypertension; I10 - Essential (primary) hypertension; I10 - Essential (primary) hypertension (6) Aortic aneurysm Code(s): I71.9 - AORTIC ANEURYSM OF UNSPECIFIED SITE, WITHOUT RUPTURE (7) COPD (chronic obstructive pulmonary disease) Code(s): J44.9 - CHRONIC OBSTRUCTIVE PULMONARY DISEASE, UNSPECIFIED Qualifiers : COPD type: emphysema (8) Cellulitis of right leg Code(s): L03.115 - CELLULITIS OF RIGHT LOWER LIMB (9) History of permanent cardiac pacemaker placement Code(s): Z95.0 - PRESENCE OF CARDIAC PACEMAKER (10) Stented coronary artery Code(s): Z95.5 - PRESENCE OF CORONARY ANGIOPLASTY IMPLANT AND GRAFT Assessment/Plan TELEMETRY FOR CHEST PAIN AND CARDIAC WORKUP CARDIOLOGY EVAL APPRECIATED COPD WILL ASK DR JEFFERSON TO CONSULT HISTORY OF PAD, DR MONAHAN FOR VASC EVAL STASIS DERMATITIS 02 SUPPORT
[2017-01-09 16:25] LABS: CPK 159 IU/L (39-308); TROPONIN I < 0.02 ng/ml (0.00-0.05)
[2017-01-09] MEDS: RIVAROXABAN 20 MG TABLET PO SCH (21:27)
[2017-01-09] MEDS: NYSTATIN/TRIAMCINOLONE TOPICAL CREAM 15 GM TUBE TP SCH (21:27)
[2017-01-09] MEDS: ATORVASTATIN CA 40 MG TABLET (FP) PO SCH (21:27)
[2017-01-09] MEDS: TAMSULOSIN HCL 0.4 MG CAP.ER.24H (FP) PO SCH (21:27)
[2017-01-09] MEDS: ALBUTEROL SO4 0.083% IH SOL 2.5 MG/3 ML VIAL.NEB. NEB SCH (22:23)
[2017-01-10] MEDS: ALBUTEROL SO4 0.083% IH SOL 2.5 MG/3 ML VIAL.NEB. NEB SCH ×3 (07:11→22:48)
--- NOTE | 2017-01-10 08:56 | PN ---
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 NSVT - Current Medication List Current Medications: Active Medications Albuterol Sulfate (Ventolin 0.083% Nebulizer Soln -) 1 amp NEB TIDR [facility] Last Admin: 01/10/17 07:11 Dose: 1 amp Amlodipine Besylate (Norvasc -) 5 mg PO DAILY [facility] Last Admin: 01/09/17 09:52 Dose: 5 mg Aspirin (Ecotrin -) 81 mg PO DAILY [facility] Last Admin: 01/09/17 09:48 Dose: 81 mg Atorvastatin Calcium (Lipitor -) 40 mg PO HS [facility] Last Admin: 01/09/17 21:27 Dose: 40 mg Budesonide/Formoterol Fumarate (Symbicort 160/4.5mcg -) 2 puff IH BID [facility] Last Admin: 01/09/17 21:30 Dose: 2 puff Duloxetine HCl (Cymbalta -) 60 mg PO DAILY [facility] Last Admin: 01/09/17 09:48 Dose: 60 mg Emollient Ointment (Aquaphor -) 1 applic TP BID PRN PRN Reason: DRY SKIN Furosemide (Lasix -) 20 mg PO DAILY [facility] Last Admin: 01/09/17 09:48 Dose: 20 mg Lisinopril (Prinivil) 10 mg PO DAILY [facility] Last Admin: 01/09/17 09:48 Dose: 10 mg Metoprolol Succinate (Toprol Xl -) 50 mg PO DAILY [facility] Last Admin: 01/09/17 09:48 Dose: 50 mg Nystatin/Triamcinolone Acetonide (Mycolog Ii Cream -) 3 applic TP BID [facility] Last Admin: 01/09/17 21:27 Dose: 3 applic Pantoprazole Sodium (Protonix -) 40 mg PO DAILY [facility] Last Admin: 01/09/17 09:52 Dose: 40 mg Pregabalin (Lyrica -) 100 mg PO BID [facility] Last Admin: 01/09/17 21:27 Dose: 100 mg Rivaroxaban (Xarelto -) 20 mg PO HS [facility] Last Admin: 01/09/17 21:27 Dose: 20 mg Tamsulosin HCl (Flomax -) 0.4 mg PO HS [facility] Last Admin: 01/09/17 21:27 Dose: 0.4 mg - Objective Vital Signs: Vital Signs Temperature 97.6 F 01/10/17 02:00 Pulse Rate 63 01/10/17 06:00 Respiratory Rate 20 01/10/17 06:00 Blood Pressure 119/77 01/10/17 06:00 O2 Sat by Pulse Oximetry (%) 93 L 01/09/17 21:00 Constitutional: Yes: No Distress Cardiovascular: Yes: Regular Rate and Rhythm Respiratory: Yes: Other (decreased breath sounds, no wheezing) Gastrointestinal: Yes: Soft Edema: No Neurological: Yes: Alert Labs: INR, PTT INR 1.26 (0.82-1.09) H 01/09/17 04:33 - ....Imaging EKG: Image Reviewed Assessment/Plan IMP: CAD/PAD/H/o Thoracic, abdominal and iliac aneurysms Epigastric and chest pain: now resolved. Cardiac enzymes negative. REC: Cycle cardiac enzymes are negative, no further discomfort. Unclear whether this episode represented GERD or possibly anginal. It has not recurred and he has not had any exertional symptoms. CT A/P shows stability of the AAA. In light of his multiple comorbid conditions, medical Rx is most appropriate. Will add low dose Imdur and assess him in office next week. Will arrange outpatient stress test as well. Outpatient Vascular f/u as well.
[2017-01-10] MEDS: BUDESONIDE/FORMETEROL FUMARATE 160/4.5 mcg INHALER IH SCH ×2 (09:29→21:40)
[2017-01-10] MEDS: FUROSEMIDE 20 MG TABLET (FP) PO SCH (09:30)
[2017-01-10] MEDS: NYSTATIN/TRIAMCINOLONE TOPICAL CREAM 15 GM TUBE TP SCH ×2 (09:30→21:39)
[2017-01-10] MEDS: METOPROLOL SUCCINATE 50 MG TAB.SR.24H (FP) PO SCH (09:30)
[2017-01-10] MEDS: DULoxetine HCL 30 MG CAPSULE.DR (FP) PO SCH (09:30)
[2017-01-10] MEDS: ASPIRIN COATED 81 MG TABLET.EC PO SCH (09:30)
[2017-01-10] MEDS: PANTOPRAZOLE 40 MG TABLET (FP) PO SCH (09:30)
[2017-01-10] MEDS: PREGABALIN 100 MG CAPSULE PO SCH ×2 (09:30→21:39)
[2017-01-10] MEDS: amLODIPine BESYLATE 5 MG TABLET (FP) PO SCH (09:30)
[2017-01-10] MEDS: LISINOPRIL 10 MG TABLET (FP) PO SCH (09:30)
[2017-01-10] MEDS: ISOSORBIDE MONONITRATE 30 MG TAB.SR.24H (FP) PO SCH (09:52)
--- NOTE | 2017-01-10 10:51 | PN ---
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, Physician Chief Complaint: AWAKE ALERT C/O HAND PAIN - Current Medication List Current Medications: Active Medications Albuterol Sulfate (Ventolin 0.083% Nebulizer Soln -) 1 amp NEB TIDR [facility] Last Admin: 01/10/17 07:11 Dose: 1 amp Amlodipine Besylate (Norvasc -) 5 mg PO DAILY [facility] Last Admin: 01/10/17 09:30 Dose: 5 mg Aspirin (Ecotrin -) 81 mg PO DAILY [facility] Last Admin: 01/10/17 09:30 Dose: 81 mg Atorvastatin Calcium (Lipitor -) 40 mg PO HS [facility] Last Admin: 01/09/17 21:27 Dose: 40 mg Budesonide/Formoterol Fumarate (Symbicort 160/4.5mcg -) 2 puff IH BID [facility] Last Admin: 01/10/17 09:29 Dose: 2 puff Duloxetine HCl (Cymbalta -) 60 mg PO DAILY [facility] Last Admin: 01/10/17 09:30 Dose: 60 mg Emollient Ointment (Aquaphor -) 1 applic TP BID PRN PRN Reason: DRY SKIN Furosemide (Lasix -) 20 mg PO DAILY [facility] Last Admin: 01/10/17 09:30 Dose: 20 mg Isosorbide Mononitrate (Imdur -) 30 mg PO DAILY [facility] Last Admin: 01/10/17 09:52 Dose: 30 mg Lisinopril (Prinivil) 10 mg PO DAILY [facility] Last Admin: 01/10/17 09:30 Dose: 10 mg Metoprolol Succinate (Toprol Xl -) 50 mg PO DAILY [facility] Last Admin: 01/10/17 09:30 Dose: 50 mg Nystatin/Triamcinolone Acetonide (Mycolog Ii Cream -) 3 applic TP BID [facility] Last Admin: 01/10/17 09:30 Dose: 3 applic Pantoprazole Sodium (Protonix -) 40 mg PO DAILY [facility] Last Admin: 01/10/17 09:30 Dose: 40 mg Pregabalin (Lyrica -) 100 mg PO BID [facility] Last Admin: 01/10/17 09:30 Dose: 100 mg Rivaroxaban (Xarelto -) 20 mg PO HS [facility] Last Admin: 01/09/17 21:27 Dose: 20 mg Tamsulosin HCl (Flomax -) 0.4 mg PO HS [facility] Last Admin: 01/09/17 21:27 Dose: 0.4 mg - Objective Vital Signs: Vital Signs Temperature 97.5 F L 01/10/17 09:35 Pulse Rate 65 01/10/17 09:35 Respiratory Rate 18 01/10/17 09:35 Blood Pressure 136/78 01/10/17 09:35 O2 Sat by Pulse Oximetry (%) 93 L 01/09/17 21:00 Constitutional: Yes: Mild Distress Eyes: Yes: WNL HENT: Yes: WNL Neck: Yes: WNL Cardiovascular: Yes: Pulse Irregular Respiratory: Yes: Diminished Gastrointestinal: Yes: WNL Genitourinary: Yes: WNL Musculoskeletal: Yes: Joint Stiffness Extremities: Yes: Erythema Edema: No Peripheral Pulses WNL: Yes Integumentary: Yes: Erythema, Rash, Venous Stasis Changes Wound/Incision: Yes: Dressing Dry and Intact Neurological: Yes: Pre-Existing Deficit ...Motor Strength: LLE, RLE Psychiatric: Yes: Other Labs: INR, PTT INR 1.26 (0.82-1.09) H 01/09/17 04:33 Problem List - Problems (1) Chest pain Code(s): R07.9 - CHEST PAIN, UNSPECIFIED Qualifiers: Chest pain type: unspecified Qualified Code(s): R07.9 - Chest pain, unspecified; R07.9 - Chest pain, unspecified (2) Afib Code(s): I48.91 - UNSPECIFIED ATRIAL FIBRILLATION (3) CAD (coronary artery disease) Code(s): I25.10 - ATHSCL HEART DISEASE OF [place] CORONARY ARTERY W/O ANG PCTRS Qualifiers: Coronary Disease-Associated Artery/Lesion type: unspecified vessel or lesion type (4) Hyperlipidemia Code(s): E78.5 - HYPERLIPIDEMIA, UNSPECIFIED Qualifiers: Hyperlipidemia type: mixed hyperlipidemia Qualified Code(s): E78.2 - Mixed hyperlipidemia; E78.2 - Mixed hyperlipidemia; E78.2 - Mixed hyperlipidemia (5) Hypertension Code(s): I10 - ESSENTIAL (PRIMARY) HYPERTENSION Qualifiers: Hypertension type: essential hypertension Qualified Code(s): I10 - Essential (primary) hypertension; I10 - Essential (primary) hypertension; I10 - Essential (primary) hypertension (6) Aortic aneurysm Code(s): I71.9 - AORTIC ANEURYSM OF UNSPECIFIED SITE, WITHOUT RUPTURE (7) COPD (chronic obstructive pulmonary disease) Code(s): J44.9 - CHRONIC OBSTRUCTIVE PULMONARY DISEASE, UNSPECIFIED Qualifiers : COPD type: emphysema (8) Cellulitis of right leg Code(s): L03.115 - CELLULITIS OF RIGHT LOWER LIMB (9) History of permanent cardiac pacemaker placement Code(s): Z95.0 - PRESENCE OF CARDIAC PACEMAKER (10) Stented coronary artery Code(s): Z95.5 - PRESENCE OF CORONARY ANGIOPLASTY IMPLANT AND GRAFT (11) Osteoarthritis Code(s): M19.90 - UNSPECIFIED OSTEOARTHRITIS, UNSPECIFIED SITE Assessment/Plan neurology eval continue current medications with 02 support cardiology eval appreciated check daily weights oob to chair dietary consult for patient teaching patient has communication deficit likely from dementia/old cva
--- NOTE | 2017-01-10 12:21 | CON.PULM ---
Consult Consult Specialty:: PULMONARY Referred by:: Dr. Escamilla Reason for Consultation:: chest pain - History of Present Illness Chief Complaint: chest pain History of Present Illness: 76yo male with h/o HTN, hyperlipidemia, CAD s/p CABG, atrial fibrillation s/p PPM, h/o CVA, thoracic aortic aneurysm, COPD, chronic hypoxic respiratory failure who presents with sudden onset chest/epigastric pain that woke him up. Described as sharp, constant associated with shortness of breath but nonradiating and without nausea or diaphoresis. Pain resolved after given sublingual NTG by EMS. No leg swelling or orthopnea. No fevers, chills or sweats. No recent illnesses, did receive his flu shot this year. 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, Seizure Cardio/Vascular: Yes: AFIB, Aneurysm, CAD, CHF, HTN, Hyperlipdemia, Murmur, Other (peripheral artery disease) Pulmonary: Yes: COPD Renal/: Yes: BPH - Past Surgical History Past Surgical History: Yes: AAA Repair, Bypass (lower ext), Permanent Pacemaker , Stent (cardiac x 2) - Alcohol/Substance Use Hx Alcohol Use: No History of Substance Use: reports: None - Smoking History Smoking history: Never smoked Have you smoked in the past 12 months: No If you are a former smoker, when did you quit?: 2006 - Social History Usual Living Arrangement: With Spouse ADL: Family Assistance History of Recent Travel: No Home Medications - Allergies Allergies/Adverse Reactions: Allergies Allergy/AdvReac Type Severity Reaction Status Date / Time prednisone AdvReac Intermediate "too wired" Verified 01/09/17 04:22 - Home Medications Home Medications: Ambulatory Orders Budesonide/Formeterol Fumarate [SYMBICORT 160/4.5mcg -] 2 inh PO BID 04/22/16 Ferrous Sulfate 325 mg PO DAILY 04/22/16 Metoprolol Succinate [Toprol Xl] 50 mg PO DAILY 04/22/16 Pregabalin [Lyrica] 100 mg PO BID 04/22/16 Tamsulosin HCl [Flomax] 0.4 mg PO HS 04/22/16 Lovastatin 40 mg PO .MWF NIGHTLY 07/31/16 Mineral Oil/Pet Hy-Phl [Aquaphor -] 1 applic TP BID PRN 07/31/16 Amlodipine Besylate [Norvasc -] 5 mg PO DAILY tablet 08/02/16 Lisinopril [Prinivil] 10 mg PO DAILY tablet 08/02/16 Albuterol 0.083% Nebulizer Suki [Ventolin 0.083% Nebulizer Soln -] 1 amp NEB Q8H 09/21/16 Rivaroxaban [Xarelto -] 20 mg PO HS 09/21/16 Duloxetine HCl [Cymbalta] 60 mg PO DAILY 09/28/16 Furosemide [Lasix -] 20 mg PO DAILY 12/04/16 Review of Systems - Review of Systems Constitutional: denies: Chills, Fever, Night Sweats, Weakness Eyes: denies: Recent Change in Vision HENT: denies: Nasal Congestion, Throat Pain Neck: denies: Stiffness, Tenderness Cardiovascular: reports: Chest Pain, Shortness of Breath. denies: Edema, Palpitations Respiratory: denies: Cough, Hemoptysis, Wheezing Gastrointestinal: denies: Abdominal Pain, Nausea, Vomiting Genitourinary: denies: Dysuria, Hematuria Neurological: denies: Dizziness, Headache Endocrine: denies: Unexplained Weight Loss Physical Exam Vital Sings: Vital Signs Temperature 97.5 F L 01/10/17 09:35 Pulse Rate 65 01/10/17 09:35 Respiratory Rate 18 01/10/17 09:35 Blood Pressure 136/78 01/10/17 09:35 O2 Sat by Pulse Oximetry (%) 93 L 01/09/17 21:00 Constitutional: Yes: No Distress, Calm Eyes: Yes: Conjunctiva Clear, EOM Intact HENT: Yes: Atraumatic, Normocephalic, Other Neck: Yes: Supple Cardiovascular: Yes: Pulse Irregular Respiratory: Yes: Regular, Diminished (distant breath sounds) ...Clubbing: No Gastrointestinal: Yes: Normal Bowel Sounds, Soft. No: Tenderness Edema: No Neurological: Yes: Alert, Oriented Imaging - Results Chest X-ray: Report Reviewed, Image Reviewed (no infiltrates) Problem List - Problems (1) Chest pain Code(s): R07.9 - CHEST PAIN, UNSPECIFIED Qualifiers: Chest pain type: unspecified Qualified Code(s): R07.9 - Chest pain, unspecified; R07.9 - Chest pain, unspecified (2) Afib Code(s): I48.91 - UNSPECIFIED ATRIAL FIBRILLATION (3) CAD (coronary artery disease) Code(s): I25.10 - ATHSCL HEART DISEASE OF [place] CORONARY ARTERY W/O ANG PCTRS Qualifiers: Coronary Disease-Associated Artery/Lesion type: unspecified vessel or lesion type (4) Hyperlipidemia Code(s): E78.5 - HYPERLIPIDEMIA, UNSPECIFIED Qualifiers: Hyperlipidemia type: mixed hyperlipidemia Qualified Code(s): E78.2 - Mixed hyperlipidemia; E78.2 - Mixed hyperlipidemia; E78.2 - Mixed hyperlipidemia (5) Hypertension Code(s): I10 - ESSENTIAL (PRIMARY) HYPERTENSION Qualifiers: Hypertension type: essential hypertension Qualified Code(s): I10 - Essential (primary) hypertension; I10 - Essential (primary) hypertension; I10 - Essential (primary) hypertension (6) COPD (chronic obstructive pulmonary disease) Code(s): J44.9 - CHRONIC OBSTRUCTIVE PULMONARY DISEASE, UNSPECIFIED Qualifiers : COPD type: emphysema (7) Chronic respiratory failure with hypoxia Code(s): J96.11 - CHRONIC RESPIRATORY FAILURE WITH HYPOXIA Assessment/Plan Atypical Chest Pain CAD s/p CABG Atrial Fibrillation COPD Chronic Hypoxic Respiratory Failure h/o CVA - agree with adding low dose nitrate - rate controlled - continue anticoagulation - O2 to keep SpO2 >90% - CXR clear without other pulmonary symptoms, less likely pulmonary etiology of chest pain - outpt PFTs and f/u Thank you for this consult Edward Rodrigues MD
--- NOTE | 2017-01-10 14:29 | CONSULT ---
Consult - History of Present Illness History of Present Illness: 76 year old man followed in my office following multiple procedures at [facility] for abdominal aorta and iliac aneurysms. He now complains of chronic swelling and itching in his legs No history of DVT. He has had fem-pop bypass in both legs. Last LUKAS was normal bilaterally. 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, Seizure Cardio/Vascular: Yes: AFIB, Aneurysm, CAD, CHF, HTN, Hyperlipdemia, Murmur, Other (peripheral artery disease) Pulmonary: Yes: COPD Renal/: Yes: BPH - Past Surgical History Past Surgical History: Yes: AAA Repair, Bypass (lower ext), Permanent Pacemaker , Stent (cardiac x 2) - Alcohol/Substance Use Hx Alcohol Use: No History of Substance Use: reports: None - Smoking History Smoking history: Never smoked Have you smoked in the past 12 months: No If you are a former smoker, when did you quit?: 2006 - Social History Usual Living Arrangement: With Spouse ADL: Family Assistance History of Recent Travel: No Home Medications - Allergies Allergies/Adverse Reactions: Allergies Allergy/AdvReac Type Severity Reaction Status Date / Time prednisone AdvReac Intermediate "too wired" Verified 01/09/17 04:22 - Home Medications Home Medications: Ambulatory Orders Budesonide/Formeterol Fumarate [SYMBICORT 160/4.5mcg -] 2 inh PO BID 04/22/16 Ferrous Sulfate 325 mg PO DAILY 04/22/16 Metoprolol Succinate [Toprol Xl] 50 mg PO DAILY 04/22/16 Pregabalin [Lyrica] 100 mg PO BID 04/22/16 Tamsulosin HCl [Flomax] 0.4 mg PO HS 04/22/16 Lovastatin 40 mg PO .MWF NIGHTLY 07/31/16 Mineral Oil/Pet Hy-Phl [Aquaphor -] 1 applic TP BID PRN 07/31/16 Amlodipine Besylate [Norvasc -] 5 mg PO DAILY tablet 08/02/16 Lisinopril [Prinivil] 10 mg PO DAILY tablet 08/02/16 Albuterol 0.083% Nebulizer Suki [Ventolin 0.083% Nebulizer Soln -] 1 amp NEB Q8H 09/21/16 Rivaroxaban [Xarelto -] 20 mg PO HS 09/21/16 Duloxetine HCl [Cymbalta] 60 mg PO DAILY 09/28/16 Furosemide [Lasix -] 20 mg PO DAILY 12/04/16 Physical Exam Vital Signs: Vital Signs Temperature 98 F 01/10/17 14:00 Pulse Rate 72 01/10/17 14:00 Respiratory Rate 20 01/10/17 14:00 Blood Pressure 113/66 01/10/17 14:00 O2 Sat by Pulse Oximetry (%) 93 L 01/09/17 21:00 Constitutional: Yes: No Distress Neck: Yes: Supple Gastrointestinal: Yes: Soft Extremities: Yes: Other (1+ edema, no skin changes noted. Few varicose veins.) Problem List - Problems (1) History of aortic aneurysm repair Assessment/Plan: S/p endovascular repair of abdominal aorta and iliac aneurysms with stent grafts and coiling of iliacs. No active issues with the stents by hsitory. Duplex scan or contrast CT needed to evaluate for endoleaks. Mild leg swelling with itching suggestive of mild venous insufficiency. Steroid cream for itching and support hose should help. Code(s): Z98.890 - OTHER SPECIFIED POSTPROCEDURAL STATES Z86.79 - PERSONAL HISTORY OF OTHER DISEASES OF THE CIRCULATORY SYSTEM (2) History of arterial bypass of lower extremity Assessment/Plan: Patent bypass both legs with normal distal flow documented in August 2016 Code(s): Z95.828 - PRESENCE OF OTHER VASCULAR IMPLANTS AND GRAFTS
--- NOTE | 2017-01-10 14:41 | CONSULT ---
Consult Consult Specialty:: Nephrology Reason for Consultation:: DUARTE - History of Present Illness Chief Complaint: chest pain History of Present Illness: Pt is a 76 year old male with pmhx of HTN. chol, a-fib, CAD, AAA, CVA, and PVD who presents to the ER with chest pain. He complains of chart substernal pain. The pain woke him up from sleep. He was found to have elevated creatinine and I was called evaluate him. I did see him in the past in the hospital for DUARTE however he did not follow up with me in the office. He denies dysuria. He says he does have hematuria at times. He denies nsaid use. His is at bedside and assisted with the history. 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 Cardio/Vascular: Yes: AFIB, Aneurysm, CAD, CHF, HTN, Hyperlipdemia, Murmur, Other (peripheral artery disease) Pulmonary: Yes: COPD Renal/: Yes: BPH - Past Surgical History Past Surgical History: Yes: AAA Repair, Bypass (lower ext), Permanent Pacemaker , Stent (cardiac x 2) - Alcohol/Substance Use Hx Alcohol Use: No History of Substance Use: reports: None - Smoking History Smoking history: Never smoked Have you smoked in the past 12 months: No If you are a former smoker, when did you quit?: 2006 - Social History Usual Living Arrangement: With Spouse ADL: Family Assistance History of Recent Travel: No Home Medications - Allergies Allergies/Adverse Reactions: Allergies Allergy/AdvReac Type Severity Reaction Status Date / Time prednisone AdvReac Intermediate "too wired" Verified 01/09/17 04:22 - Home Medications Home Medications: Ambulatory Orders Budesonide/Formeterol Fumarate [SYMBICORT 160/4.5mcg -] 2 inh PO BID 04/22/16 Ferrous Sulfate 325 mg PO DAILY 04/22/16 Metoprolol Succinate [Toprol Xl] 50 mg PO DAILY 04/22/16 Pregabalin [Lyrica] 100 mg PO BID 04/22/16 Tamsulosin HCl [Flomax] 0.4 mg PO HS 04/22/16 Lovastatin 40 mg PO .MWF NIGHTLY 07/31/16 Mineral Oil/Pet Hy-Phl [Aquaphor -] 1 applic TP BID PRN 07/31/16 Amlodipine Besylate [Norvasc -] 5 mg PO DAILY tablet 08/02/16 Lisinopril [Prinivil] 10 mg PO DAILY tablet 08/02/16 Albuterol 0.083% Nebulizer Suki [Ventolin 0.083% Nebulizer Soln -] 1 amp NEB Q8H 09/21/16 Rivaroxaban [Xarelto -] 20 mg PO HS 09/21/16 Duloxetine HCl [Cymbalta] 60 mg PO DAILY 09/28/16 Furosemide [Lasix -] 20 mg PO DAILY 12/04/16 Family Disease History - Family Disease History Family History: Denies Review of Systems - Review of Systems Constitutional: reports: Malaise Eyes: reports: No Symptoms HENT: reports: No Symptoms Neck: reports: No Symptoms Cardiovascular: reports: Chest Pain, Edema Respiratory: reports: No Symptoms Gastrointestinal: reports: No Symptoms Genitourinary: reports: Hematuria Musculoskeletal: reports: No Symptoms Integumentary: reports: No Symptoms Neurological: reports: Pre-Existing Deficit Endocrine: reports: No Symptoms Psychiatric: reports: No Symptoms Physical Exam Vital Signs: Vital Signs Temperature 98 F 01/10/17 14:00 Pulse Rate 72 01/10/17 14:00 Respiratory Rate 20 01/10/17 14:00 Blood Pressure 113/66 01/10/17 14:00 O2 Sat by Pulse Oximetry (%) 93 L 01/09/17 21:00 Constitutional: Yes: Calm Eyes: Yes: Conjunctiva Clear HENT: Yes: Atraumatic Neck: Yes: Supple Cardiovascular: Yes: S1, S2 Respiratory: Yes: CTA Bilaterally Gastrointestinal: Yes: Soft Renal/: Yes: WNL Musculoskeletal: Yes: WNL Edema: No Neurological: Yes: Oriented Psychiatric: Yes: Oriented Labs: Laboratory Tests 01/09/17 04:33 Sodium 139 Potassium 4.3 Chloride 104 Carbon Dioxide 29 Anion Gap 6 L BUN 28 H Creatinine 1.5 H D Creat Clearance w eGFR 45.26 Random Glucose 89 Imaging - Results Chest X-ray: Report Reviewed Cat Scan: Report Reviewed Problem List - Problems (1) Chest pain Code(s): R07.9 - CHEST PAIN, UNSPECIFIED Qualifiers: Chest pain type: unspecified Qualified Code(s): R07.9 - Chest pain, unspecified; R07.9 - Chest pain, unspecified (2) History of aortic aneurysm repair Code(s): Z98.890 - OTHER SPECIFIED POSTPROCEDURAL STATES Z86.79 - PERSONAL HISTORY OF OTHER DISEASES OF THE CIRCULATORY SYSTEM (3) Afib Code(s): I48.91 - UNSPECIFIED ATRIAL FIBRILLATION (4) CAD (coronary artery disease) Code(s): I25.10 - ATHSCL HEART DISEASE OF [place] CORONARY ARTERY W/O ANG PCTRS Qualifiers: Coronary Disease-Associated Artery/Lesion type: unspecified vessel or lesion type (5) Aortic aneurysm Code(s): I71.9 - AORTIC ANEURYSM OF UNSPECIFIED SITE, WITHOUT RUPTURE (6) Azotemia Code(s): R79.89 - OTHER SPECIFIED ABNORMAL FINDINGS OF BLOOD CHEMISTRY Assessment/Plan Current Medications Generic Name Dose Route Start Last Admin Trade Name Freq PRN Reason Stop Dose Admin Albuterol Sulfate 1 amp 01/09/17 14:00 01/10/17 13:45 Ventolin 0.083% Nebulizer Soln - NEB Not Given TIDR DIANNE Amlodipine Besylate 5 mg 01/09/17 10:00 01/10/17 09:30 Norvasc - PO 5 mg DAILY DIANNE Administration Aspirin 81 mg 01/09/17 10:00 01/10/17 09:30 Ecotrin - PO 81 mg DAILY DIANNE Administration Atorvastatin Calcium 40 mg 01/09/17 22:00 01/09/17 21:27 Lipitor - PO 40 mg HS DIANNE Administration Budesonide/Formoterol Fumarate 2 puff 01/09/17 10:00 01/10/17 09:29 Symbicort 160/4.5mcg - IH 2 puff BID DIANNE Administration Duloxetine HCl 60 mg 01/09/17 10:00 01/10/17 09:30 Cymbalta - PO 60 mg DAILY DIANNE Administration Emollient Ointment 1 applic 01/09/17 07:36 Aquaphor - TP BID PRN DRY SKIN Fluocinonide 1 applic 01/10/17 14:45 Lidex 0.05% Cream - TP DAILY DIANNE Furosemide 20 mg 01/09/17 10:00 01/10/17 09:30 Lasix - PO 20 mg DAILY DIANNE Administration Isosorbide Mononitrate 30 mg 01/10/17 10:00 01/10/17 09:52 Imdur - PO 30 mg DAILY DIANNE Administration Lisinopril 10 mg 10/18/17 10:00 01/10/17 09:30 Prinivil PO 10 mg DAILY DIANNE Administration Metoprolol Succinate 50 mg 01/09/17 10:00 01/10/17 09:30 Toprol Xl - PO 50 mg DAILY DIANNE Administration Nystatin/Triamcinolone Acetonide 3 applic 01/09/17 22:00 01/10/17 09:30 Mycolog Ii Cream - TP 3 applic BID DIANNE Administration Pantoprazole Sodium 40 mg 01/09/17 10:00 01/10/17 09:30 Protonix - PO 40 mg DAILY DIANNE Administration Pregabalin 100 mg 01/09/17 10:00 01/10/17 09:30 Lyrica - PO 100 mg BID DIANNE Administration Rivaroxaban 20 mg 01/09/17 22:00 01/09/17 21:27 Xarelto - PO 20 mg HS DIANNE Administration Tamsulosin HCl 0.4 mg 01/09/17 22:00 01/09/17 21:27 Flomax - PO 0.4 mg HS DIANNE Administration Impression 1. azotemia 2. abdominal pain 3. AAA 4. hx CVA 5. a-fib 6. HTN 7. insomnia 8. COPD on home oxygen 9. CAD 10. BPH 11. r/o ACS Plan - repeat bmp - check renal ultrasound - check ua and lytes - cont current meds - cardio follow up - will follow pt - will comment more on etiology of azotemia after more data is gathered Dr Cassidy
[2017-01-10] MEDS ORDERED: FLUOCINONIDE 0.05% CREAM (15 GM TUBE) TP SCH (14:45)
[2017-01-10 16:18] LABS: ANION GAP 8 (8-16); CALCIUM 8.5 mg/dL (8.5-10.1); CO2 27 mmol/L (21-32); CREATININE 1.4 mg/dL (0.7-1.3); GLUCOSE,RANDOM 92 mg/dL (74-106)
--- NOTE | 2017-01-10 20:03 | CONSULT ---
Consult - text type - Consultation Consultation Note: NEUROLOGY CONSULTATION is greatly appreciated: This 76 yo LH man with h/o HTN, Chol, ASHD, s/p CABG, s/p Stents, Afib, s/p PPM, PVD, s/p AAA repair and B/L fem-pop bypasses is maintained on multiple meds including xarelto and lyrica 100 mg BID for pain. 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 Now with increasing pain left hand and arm. Can't sleep. Additional discription of pain limited by aphasia. EXAM: No bruits. S/P PPM. Cor irreg. Left hand erythematous, mild swelling. tender. ? Allodynia? NEURO: Non-fluent aphasia +/- dysarthria Full avilez. Gag OK. Decreased tongue MAXWELL's. Left drift. Brisk reflexes L>R. Reduced MAXWELL's L>>>R. + cogwheel rigidity L>>R Left Babinsky No FTN dystaxia Sensory normal Shuffling gait. Mild left circumduction. 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 R/O Left Carpal tunnel syndrome, RLS, CRPS Suggest: CT of head. Carotid duplex dopplers. Trial of Levadopa. Neuro f/u and EMG as out patient. Thank you very much, Salvatore Rodriguez MD
[2017-01-10] MEDS: TAMSULOSIN HCL 0.4 MG CAP.ER.24H (FP) PO SCH (21:39)
[2017-01-10] MEDS: RIVAROXABAN 20 MG TABLET PO SCH (21:39)
[2017-01-10] MEDS: ATORVASTATIN CA 40 MG TABLET (FP) PO SCH (21:39)
[2017-01-11] MEDS: ALBUTEROL SO4 0.083% IH SOL 2.5 MG/3 ML VIAL.NEB. NEB SCH (06:27)
[2017-01-11 07:41] LABS: ANION GAP 9 (8-16); CALCIUM 8.3 mg/dL (8.5-10.1); CO2 29 mmol/L (21-32); CREATININE 1.3 mg/dL (0.7-1.3); GLUCOSE,RANDOM 73 mg/dL (74-106)
--- NOTE | 2017-01-11 09:11 | PN ---
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 History of Present Illness: no further chest pain or epigastric pain for 48 hours - Current Medication List Current Medications: Active Medications Albuterol Sulfate (Ventolin 0.083% Nebulizer Soln -) 1 amp NEB TIDR [facility] Last Admin: 01/11/17 06:27 Dose: 1 amp Amlodipine Besylate (Norvasc -) 5 mg PO DAILY [facility] Last Admin: 01/10/17 09:30 Dose: 5 mg Aspirin (Ecotrin -) 81 mg PO DAILY [facility] Last Admin: 01/10/17 09:30 Dose: 81 mg Atorvastatin Calcium (Lipitor -) 40 mg PO HS [facility] Last Admin: 01/10/17 21:39 Dose: 40 mg Budesonide/Formoterol Fumarate (Symbicort 160/4.5mcg -) 2 puff IH BID [facility] Last Admin: 01/10/17 21:40 Dose: 2 puff Carbidopa/Levodopa (Sinemet *Cr* 25/100 -) 0.5 combo PO TIDCM [facility] Last Admin: 01/10/17 21:39 Dose: 0.5 combo Duloxetine HCl (Cymbalta -) 60 mg PO DAILY [facility] Last Admin: 01/10/17 09:30 Dose: 60 mg Emollient Ointment (Aquaphor -) 1 applic TP BID PRN PRN Reason: DRY SKIN Fluocinonide (Lidex 0.05% Cream -) 1 applic TP DAILY DIANNE Furosemide (Lasix -) 20 mg PO DAILY [facility] Last Admin: 01/10/17 09:30 Dose: 20 mg Isosorbide Mononitrate (Imdur -) 30 mg PO DAILY [facility] Last Admin: 01/10/17 09:52 Dose: 30 mg Lisinopril (Prinivil) 10 mg PO DAILY [facility] Last Admin: 01/10/17 09:30 Dose: 10 mg Metoprolol Succinate (Toprol Xl -) 50 mg PO DAILY [facility] Last Admin: 01/10/17 09:30 Dose: 50 mg Nystatin/Triamcinolone Acetonide (Mycolog Ii Cream -) 3 applic TP BID [facility] Last Admin: 01/10/17 21:39 Dose: 3 applic Pantoprazole Sodium (Protonix -) 40 mg PO DAILY [facility] Last Admin: 01/10/17 09:30 Dose: 40 mg Pregabalin (Lyrica -) 100 mg PO BID [facility] Last Admin: 01/10/17 21:39 Dose: 100 mg Rivaroxaban (Xarelto -) 20 mg PO [facility] Last Admin: 01/10/17 21:39 Dose: 20 mg Tamsulosin HCl (Flomax -) 0.4 mg PO [facility] Last Admin: 01/10/17 21:39 Dose: 0.4 mg - Objective Vital Signs: Vital Signs Temperature 98.4 F 01/11/17 06:00 Pulse Rate 68 01/11/17 06:00 Respiratory Rate 20 01/11/17 06:00 Blood Pressure 108/66 01/11/17 06:00 O2 Sat by Pulse Oximetry (%) 95 01/10/17 21:00 Constitutional: Yes: No Distress Cardiovascular: Yes: Regular Rate and Rhythm Respiratory: Yes: Other (decreased breah sounds b/l) Gastrointestinal: Yes: Soft Edema: No Labs: CBC, BMP 01/11/17 06:45 INR, PTT INR 1.26 (0.82-1.09) H 01/09/17 04:33 Laboratory Tests 01/09/17 01/09/17 01/11/17 04:33 04:33 06:45 WBC 7.8 Hct 46.1 Plt Count 194 INR 1.26 H Potassium 4.5 Creatinine 1.3 - ....Imaging EKG: Image Reviewed Assessment/Plan IMP: CAD/PAD/H/o Thoracic, abdominal and iliac aneurysms Epigastric and chest pain: now resolved. Cardiac enzymes negative. REC: Cycle cardiac enzymes are negative, no further discomfort. Unclear whether this episode represented GERD or possibly anginal. It has not recurred and he has not had any exertional symptoms. CT A/P shows stability of the AAA. In light of his multiple comorbid conditions, medical Rx is most appropriate. Will add low dose Imdur and assess him in office next week. Will arrange outpatient stress test. 13 beats NSVT noted. He has refused ICD in past. Will decrease amlodipine to 2.5mg and increase Toprol to 75mg daily.
[2017-01-11] MEDS: PANTOPRAZOLE 40 MG TABLET (FP) PO SCH (09:38)
[2017-01-11] MEDS: LISINOPRIL 10 MG TABLET (FP) PO SCH (09:38)
[2017-01-11] MEDS: DULoxetine HCL 30 MG CAPSULE.DR (FP) PO SCH (09:38)
[2017-01-11] MEDS: NYSTATIN/TRIAMCINOLONE TOPICAL CREAM 15 GM TUBE TP SCH (09:39)
[2017-01-11] MEDS: FUROSEMIDE 20 MG TABLET (FP) PO SCH (09:39)
[2017-01-11] MEDS: ASPIRIN COATED 81 MG TABLET.EC PO SCH (09:39)
[2017-01-11] MEDS: PREGABALIN 100 MG CAPSULE PO SCH (09:39)
[2017-01-11] MEDS: ISOSORBIDE MONONITRATE 30 MG TAB.SR.24H (FP) PO SCH (09:39)
[2017-01-11] MEDS: BUDESONIDE/FORMETEROL FUMARATE 160/4.5 mcg INHALER IH SCH (09:40)
[2017-01-11] MEDS ORDERED: amLODIPine BESYLATE 2.5 MG TABLET (FP) PO SCH (10:00)
[2017-01-11] MEDS ORDERED: METOPROLOL SUCCINATE 25 MG TAB.SR.24H (FP) PO SCH (10:00)
[2017-01-11 10:53] VITALS: BP 125/62; PULSE 72; TEMP 97.5
--- NOTE | 2017-01-11 12:33 | PN ---
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 (short form) - Note 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: Feels overall better. No CP or SOB. No acute events overnight. Intake & Output 01/08/17 01/09/17 01/10/17 01/11/17 23:59 23:59 23:59 23:59 Intake Total 930 510 360 Balance 930 510 360 Weight 162 lb Last Vital Signs Temp Pulse Resp BP Pulse Ox 97.5 F L 72 18 125/62 96 01/11/17 10:52 01/11/17 10:52 01/11/17 10:52 01/11/17 10:52 01/11/17 09:00 Active Medications Albuterol Sulfate (Ventolin 0.083% Nebulizer Soln -) 1 amp NEB TIDR [facility] Last Admin: 01/11/17 06:27 Dose: 1 amp Amlodipine Besylate (Norvasc -) 2.5 mg PO DAILY [facility] Last Admin: 01/11/17 09:39 Dose: 2.5 mg Aspirin (Ecotrin -) 81 mg PO DAILY [facility] Last Admin: 01/11/17 09:39 Dose: 81 mg Atorvastatin Calcium (Lipitor -) 40 mg PO HS [facility] Last Admin: 01/10/17 21:39 Dose: 40 mg Budesonide/Formoterol Fumarate (Symbicort 160/4.5mcg -) 2 puff IH BID [facility] Last Admin: 01/11/17 09:40 Dose: 2 puff Carbidopa/Levodopa (Sinemet *Cr* 25/100 -) 0.5 combo PO TIDCM [facility] Last Admin: 01/11/17 09:38 Dose: 0.5 combo Duloxetine HCl (Cymbalta -) 60 mg PO DAILY [facility] Last Admin: 01/11/17 09:38 Dose: 60 mg Emollient Ointment (Aquaphor -) 1 applic TP BID PRN PRN Reason: DRY SKIN Fluocinonide (Lidex 0.05% Cream -) 1 applic TP DAILY [facility] Furosemide (Lasix -) 20 mg PO DAILY [facility] Last Admin: 01/11/17 09:39 Dose: 20 mg Isosorbide Mononitrate (Imdur -) 30 mg PO DAILY [facility] Last Admin: 01/11/17 09:39 Dose: 30 mg Lisinopril (Prinivil) 10 mg PO DAILY [facility] Last Admin: 01/11/17 09:38 Dose: 10 mg Metoprolol Succinate (Toprol Xl -) 75 mg PO DAILY [facility] Last Admin: 01/11/17 09:40 Dose: 75 mg Nystatin/Triamcinolone Acetonide (Mycolog Ii Cream -) 3 applic TP BID [facility] Last Admin: 01/11/17 09:39 Dose: 3 applic Pantoprazole Sodium (Protonix -) 40 mg PO DAILY [facility] Last Admin: 01/11/17 09:38 Dose: 40 mg Pregabalin (Lyrica -) 100 mg PO BID [facility] Last Admin: 01/11/17 09:39 Dose: 100 mg Rivaroxaban (Xarelto -) 20 mg PO [facility] Last Admin: 01/10/17 21:39 Dose: 20 mg Tamsulosin HCl (Flomax -) 0.4 mg PO [facility] Last Admin: 01/10/17 21:39 Dose: 0.4 mg Constitutional: Yes: No Distress Eyes: Yes: Conjunctiva Clear, EOM Intact HENT: Yes: Atraumatic, Normocephalic, Other Neck: Yes: Supple Cardiovascular: Yes: Pulse Irregular Respiratory: Yes: Regular, Diminished (distant breath sounds) ...Clubbing: No Gastrointestinal: Yes: Normal Bowel Sounds, Soft. No: Tenderness Edema: No Neurological: Yes: Alert, Oriented Laboratory Results - last 24 hr 01/10/17 01/11/17 15:05 06:45 Sodium 138 139 Potassium 4.5 4.5 Chloride 103 101 Carbon Dioxide 27 29 Anion Gap 8 9 BUN 30 H 31 H Creatinine 1.4 H 1.3 Random Glucose 92 73 L D Calcium 8.5 8.3 L Problem List - Problems (1) Chest pain Code(s): R07.9 - CHEST PAIN, UNSPECIFIED Qualifiers: Chest pain type: unspecified Qualified Code(s): R07.9 - Chest pain, unspecified; R07.9 - Chest pain, unspecified (2) Afib Code(s): I48.91 - UNSPECIFIED ATRIAL FIBRILLATION (3) CAD (coronary artery disease) Code(s): I25.10 - ATHSCL HEART DISEASE OF [place] CORONARY ARTERY W/O ANG PCTRS Qualifiers: Coronary Disease-Associated Artery/Lesion type: unspecified vessel or lesion type (4) Hyperlipidemia Code(s): E78.5 - HYPERLIPIDEMIA, UNSPECIFIED Qualifiers: Hyperlipidemia type: mixed hyperlipidemia Qualified Code(s): E78.2 - Mixed hyperlipidemia; E78.2 - Mixed hyperlipidemia; E78.2 - Mixed hyperlipidemia (5) Hypertension Code(s): I10 - ESSENTIAL (PRIMARY) HYPERTENSION Qualifiers: Hypertension type: essential hypertension Qualified Code(s): I10 - Essential (primary) hypertension; I10 - Essential (primary) hypertension; I10 - Essential (primary) hypertension (6) COPD (chronic obstructive pulmonary disease) Code(s): J44.9 - CHRONIC OBSTRUCTIVE PULMONARY DISEASE, UNSPECIFIED Qualifiers : COPD type: emphysema (7) Chronic respiratory failure with hypoxia Code(s): J96.11 - CHRONIC RESPIRATORY FAILURE WITH HYPOXIA Assessment/Plan Atypical Chest Pain CAD s/p CABG Atrial Fibrillation COPD Chronic Hypoxic Respiratory Failure h/o CVA - Nitrate - rate controlled - continue anticoagulation - O2 to keep SpO2 >90% - outpt PFTs and f/u - No Pulmonary contraindication for D/C Dr Alberto
--- NOTE | 2017-01-11 12:44 | DS ---
Physical Examination Vital Signs: Vital Signs Temperature 97.5 F L 01/11/17 10:52 Pulse Rate 72 01/11/17 10:52 Respiratory Rate 18 01/11/17 10:52 Blood Pressure 125/62 01/11/17 10:52 O2 Sat by Pulse Oximetry (%) 96 01/11/17 09:00 Constitutional: Yes: Mild Distress Eyes: Yes: WNL HENT: Yes: WNL Neck: Yes: WNL Cardiovascular: Yes: Pulse Irregular Respiratory: Yes: WNL Gastrointestinal: Yes: WNL Renal/: Yes: WNL Musculoskeletal: Yes: Muscle Weakness Extremities: Yes: WNL Edema: No Peripheral Pulses WNL: Yes Integumentary: Yes: Erythema, Rash, Venous Stasis Changes Wound/Incision: Yes: Dressing Dry and Intact Neurological: Yes: Pre-Existing Deficit, Unsteady Gait, Weakness ...Motor Strength: LLE, RLE Psychiatric: Yes: Other Labs: CBC, BMP 01/11/17 06:45 Discharge Summary Reason For Visit: CHEST PAIN Current Active Problems Chest pain (Acute) Chronic respiratory failure with hypoxia (Acute) History of aortic aneurysm repair (Acute) History of arterial bypass of lower extremity (Acute) Osteoarthritis (Acute) Adequate anticoagulation on anticoagulant therapy (Chronic) Afib (Chronic) CAD (coronary artery disease) (Chronic) Hyperlipidemia (Chronic) Hypertension (Chronic) Procedures: Principal: CT SCAN Other Procedures: CXR/LABS Hospital Course: ADMITTED FOR ACUTE DYSPNEA/CHESTPAIN/ABD PAIN, TREATED ON TELEMETRY, CARDIOLOGY AND SURGERY EVALS FOR ANEURYSM AND PELVIC MASS, WILL DC HOME FOLLOW UP OUTPATIENT Condition: Fair - Instructions Diet, Activity, Other Instructions: SEE DR SOLOMON FOR PELVIC MASS OUTPATIENT FOLLOW UP LOW SODIUM/LOW FAT Referrals: Alyssa Solomon [Staff Physician] - Disposition: VNS/HOME HEALTH CARE - Home Medications Comprehensive Discharge Medication List: Ambulatory Orders Budesonide/Formeterol Fumarate [SYMBICORT 160/4.5mcg -] 2 inh PO BID 04/22/16 Ferrous Sulfate 325 mg PO DAILY 04/22/16 Metoprolol Succinate [Toprol Xl] 50 mg PO DAILY 04/22/16 Pregabalin [Lyrica] 100 mg PO BID 04/22/16 Tamsulosin HCl [Flomax] 0.4 mg PO HS 04/22/16 Lovastatin 40 mg PO .MWF NIGHTLY 07/31/16 Mineral Oil/Pet Hy-Phl [Aquaphor -] 1 applic TP BID PRN 07/31/16 Amlodipine Besylate [Norvasc -] 5 mg PO DAILY tablet 08/02/16 Lisinopril [Prinivil] 10 mg PO DAILY tablet 08/02/16 Albuterol 0.083% Nebulizer Suki [Ventolin 0.083% Nebulizer Soln -] 1 amp NEB Q8H 09/21/16 Rivaroxaban [Xarelto -] 20 mg PO HS 09/21/16 Duloxetine HCl [Cymbalta] 60 mg PO DAILY 09/28/16 Furosemide [Lasix -] 20 mg PO DAILY 12/04/16 Carbidopa/Levodopa *Cr* 25/100 [Sinemet *Cr* 25/100 -] 0.5 combo PO TIDCM #90 tab 01/11/17 Fluocinonide 0.05% Cream [Lidex 0.05% Cream -] 1 applic TP DAILY #120 tube 01/11 Isosorbide Mononitrate [Imdur -] 30 mg PO DAILY #30 tab 01/11/17 Nystatin/Triamcinolone Top Cr [Mycolog II -] 3 applic TP BID #120 applic Pantoprazole Sodium [Protonix -] 40 mg PO DAILY #30 tab 01/11/17
== END 2017-01-11 13:24 | disposition home health service (06) | DRG 392 ==
LOC: JER 04:11 → JERBED 05:19 → UNDOADMIN 05:57 → JERBED 05:57 → J4W 06:51
PROVIDERS: ADMIT Family Medicine; ATTEND Family Medicine
PROC: 3E0F7GC Introduction of Other Therapeutic Substance into Respiratory Tract, Via Natural or Artificial Opening (ICD-10-PCS; principal; 2017-01-10)
DX: R10.13 Epigastric pain (principal); L03.115 Cellulitis of right lower limb; J96.11 Chronic respiratory failure with hypoxia; R47.01 Aphasia; I69.354 Hemiplegia and hemiparesis following cerebral infarction affecting left non-dominant side; R19.09 Other intra-abdominal and pelvic swelling, mass and lump; R07.89 Other chest pain; I48.91 Unspecified atrial fibrillation; I25.10 Atherosclerotic heart disease of native coronary artery without angina pectoris; E78.5 Hyperlipidemia, unspecified; I71.9 Aortic aneurysm of unspecified site, without rupture; J44.9 Chronic obstructive pulmonary disease, unspecified; I73.89 Other specified peripheral vascular diseases; R01.1 Cardiac murmur, unspecified; R79.89 Other specified abnormal findings of blood chemistry; N40.0 Benign prostatic hyperplasia without lower urinary tract symptoms; G20 Parkinson's disease; G25.81 Restless legs syndrome; Z99.81 Dependence on supplemental oxygen; Z95.5 Presence of coronary angioplasty implant and graft; Z95.0 Presence of cardiac pacemaker; Z86.79 Personal history of other diseases of the circulatory system; Z95.828 Presence of other vascular implants and grafts
CPT/HCPCS: 36415; 71010-TC; 74176-TC; 76775-TC; 76856-TC; 80048; 80053; 82550; 82553; 83735; 84484; 85025; 85610; 93005; 93010; 93306-TC; 94640; 99283-25; Q9967

== ENCOUNTER 2017-03-28 06:53 | Inpatient (IN) | payer OTHER ==
--- NOTE | 2017-03-28 07:14 | PDOC ---
Attending Attestation - Medical Decision Making 03/28/17 09:[address] Fleming Awaiting call back. 03/28/17 10:29 Darrell paged via phone answering service. Awaiting call back. Documentation prepared by Laury Ventura, acting as medical laboratory technologist for Danii Bella MD <Laury Ventura - Last Filed: 03/28/17 10:29> - Resident Resident Name: Philip Alanis - HPI HPI: 03/28/17 12:20 Pt presents to the ED complaining of wheezing and shortness of breath consistent with prior COPD exacerbations. Complaining of a cough productive of yellpw sputum. Denies chest pain or shortness of breath. Patient also has extensive cardiac history. - Physicial Exam PE: 03/28/17 12:25 Agree with resident exam. Patient has baseline aphasia, but is able to nod in response to yes or know questions. + diffuse wheezing on lung exam. Hypoxic despite increased oxygen on inital exam. 03/28/17 12:27 - Medical Decision Making 03/28/17 12:26 Pt presents to the ED complaining of wheezing and shortness of breath consistent with COPD exacerbations. CXR and cardiac labs checked to rule out PNA, ACS or CHF and are negative. Patient feels improved with nebs and steroids. Will admit to medicine for continued management. <Danii Bella - Last Filed: 03/28/17 12:27>
--- NOTE | 2017-03-28 07:14 | PDOC ---
History of Present Illness - General Chief Complaint: Shortness of Breath Stated Complaint: S.O.B. Time Seen by Provider: 03/28/17 07:12 - History of Present Illness Initial Comments: 03/28/17 07:25 Mr. 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 He reports he has been experiencing cough productive of yellow sputum. He reports symptoms had initially improved with OTC medicines but that they started getting worse last night, prompting his visit. He also endorses recent headache with subjective fever and chills. The patient denies chest pain and dizziness. Denies nausea, vomit, diarrhea and constipation. Denies dysuria, frequency, urgency and hematuria. Allergies: Prednisone PCP: Dr. Goran Phan Blind Stitch Machine Operator: Dr. Hines Operations Project Manager: Dr. Fleming Past History - Past Medical History Allergies/Adverse Reactions: Allergies Allergy/AdvReac Type Severity Reaction Status Date / Time prednisone AdvReac Intermediate "too wired" Verified 03/28/17 06:57 Home Medications: Ambulatory Orders Budesonide/Formeterol Fumarate [SYMBICORT 160/4.5mcg -] 2 inh PO BID 04/22/16 Ferrous Sulfate 325 mg PO DAILY 04/22/16 Metoprolol Succinate [Toprol Xl] 50 mg PO DAILY 04/22/16 Pregabalin [Lyrica] 100 mg PO BID 04/22/16 Tamsulosin HCl [Flomax] 0.4 mg PO HS 04/22/16 Lovastatin 40 mg PO .MWF NIGHTLY 07/31/16 Mineral Oil/Pet Hy-Phl [Aquaphor -] 1 applic TP BID PRN 07/31/16 Lisinopril [Prinivil] 10 mg PO DAILY tablet 08/02/16 Albuterol 0.083% Nebulizer Suki [Ventolin 0.083% Nebulizer Soln -] 1 amp NEB Q8H 09/21/16 Duloxetine HCl [Cymbalta] 60 mg PO DAILY 09/28/16 Furosemide [Lasix -] 20 mg PO DAILY 12/04/16 Fluocinonide 0.05% Cream [Lidex 0.05% Cream -] 1 applic TP DAILY #120 tube 01/11 Metoprolol Succinate [Toprol XL -] 25 mg PO DAILY #30 tab.sr.24h 01/11/17 Nystatin/Triamcinolone Top Cr [Mycolog II -] 3 applic TP BID #120 applic Anemia: No Asthma: No Cancer: No Cardiac Disorders: Yes (STENTS 2000/STENT IN 2015) CVA: Yes (01/23/12/DURING TRIPLE AA REPAIR) COPD: Yes CHF: No Dementia: No (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) Diabetes: No GI Disorders: No Disorders: Yes (BPH) HTN: Yes Hypercholesterolemia: Yes Liver Disease: No Seizures: No Thyroid Disease: No - Surgical History Abdominal Surgery: Yes (S/P AAA) Cardiac Surgery: Yes (BYPASS 2013, PPM/ AAA REPAIR/2011) Neurologic Surgery: No Orthopedic Surgery: Yes (FRACTURE RT FEMUR 02/2015 S/P ORIF) - Immunization History Immunization Up to Date: Yes - Suicide/Smoking/Psychosocial Hx Smoking History: Unknown if ever smoked Have you smoked in the past 12 months: No If you are a former smoker, when did you quit?: 2007 Cigars Per Day: 0 Information on smoking cessation initiated: No Hx Alcohol Use: No Drug/Substance Use Hx: No Substance Use Type: None Hx Substance Use Treatment: No Review of Systems - Review of Systems Comments:: 03/28/17 07:34 GENERAL/CONSTITUTIONAL: +Subjective fevers and chills. No weakness. HEAD, EYES, EARS, NOSE AND THROAT: No change in vision. No ear pain or discharge. No sore throat. CARDIOVASCULAR: +Current shortness of breath. No chest pain. RESPIRATORY: Cough and wheezing with reported difficulty breathing. GASTROINTESTINAL: No nausea, vomiting, diarrhea or constipation. GENITOURINARY: No dysuria, frequency, or change in urination. MUSCULOSKELETAL: No joint or muscle swelling or pain. No neck or back pain. SKIN: +Allergic rash on right shoulder currently under treatment of fructose loader NEUROLOGIC: No vertigo, loss of consciousness, or change in strength/sensation. ENDOCRINE: No increased thirst. No abnormal weight change HEMATOLOGIC/LYMPHATIC: No anemia, easy bleeding, or history of blood clots. ALLERGIC/IMMUNOLOGIC: No hives or skin allergy. *Physical Exam - Vital Signs Last Vital Signs Temp Pulse Resp BP Pulse Ox 98.7 F 84 18 139/76 90 L 03/28/17 07:02 03/28/17 07:02 03/28/17 07:02 03/28/17 07:02 03/28/17 07:02 - Physical Exam Comments: 03/28/17 07:36 GENERAL: Awake, alert, and fully oriented, in no acute distress HEAD: No signs of trauma, normocephalic, atraumatic EYES: PERRLA, EOMI, sclera anicteric, conjunctiva clear ENT: Auricles normal inspection, hearing grossly normal, nares patent, oropharynx clear without exudates. Moist mucosa NECK: Normal ROM, supple, no lymphadenopathy, JVD, or masses LUNGS: +Lungs tight with diffuse wheezes. Patient appears short of breath with accessory muscle use for breathing. HEART: Regular rate and rhythm, normal S1 and S2, no murmurs, rubs or gallops, peripheral pulses normal and equal bilaterally. ABDOMEN: Soft, nontender, normoactive bowel sounds. No guarding, no rebound. No masses EXTREMITIES: Normal inspection, Normal range of motion, no edema. No clubbing or cyanosis. NEUROLOGICAL: Cranial nerves II through XII grossly intact. Normal speech, normal gait, no focal sensorimotor deficits SKIN: Warm, Dry, normal turgor, no rashes or lesions noted. ED Treatment Course - LABORATORY CBC & Chemistry Diagram: 03/28/17 07:50 03/28/17 07:50 Medical Decision Making - Medical Decision Making 03/28/17 09:30 Mr. Villar is a 76 yo male w/ pmh of COPD who presents w/ symptoms concerning for COPD exacerbation bronchitis. Patient experienced some improvement with 125 solumedrol and duoneb. Chest x-ray negative for acute process. Operations Project Manager contacted (Bernadette) and will contact PCP for admission. 03/28/17 10:41 Discussed patient with pulmonoligst and PCP, both agree with admission and care plan. *DC/Admit/Observation/Transfer Diagnosis at time of Disposition: COPD exacerbation - Discharge Dispostion Admit: Yes - Referrals - Patient Instructions - Post Discharge Activity
[2017-03-28] MEDS ORDERED: ALBUTEROL SO4 2.5/IPRATROPIUM 0.5 INH SOL 3 ML VIAL.NEB. NEB ONE (07:24)
[2017-03-28] MEDS ORDERED: methylPREDNISolone NA SUCC 125 MG/2 ML VIAL IVPUSH ONE (07:42)
[2017-03-28 08:06] LABS: BASO % 0.4 % (0-2.0); EOS % 2.7 % (0-4.5); HEMATOCRIT 46.7 % (35.4-49); HEMOGLOBIN 14.7 GM/dL (11.7-16.9); LYMPH % 6.5 % (8-40); MCH 27.9 pg (25.7-33.7); MCHC 31.5 g/dl (32.0-35.9); MEAN CELL VOLUME 88.6 fl (80-96); MEAN PLT VOLUME 9.4 fl (7.5-11.1); MONO % 7.2 % (3.8-10.2); NEUT % 83.2 % (42.8-82.8); PLATELET COUNT 180 K/MM3 (134-434); RBC 5.27 M/mm3 (4.00-5.60); RDW 15.6 % (11.9-15.9); WHITE BLOOD COUNT 11.9 K/mm3 (4.0-10.0)
[2017-03-28] MEDS ORDERED: methylPREDNISolone NA SUCC 125 MG/2 ML VIAL ONE (08:32)
[2017-03-28 08:39] LABS: ALBUMIN 3.8 g/dl (3.4-5.0); ALK PHOS 55 U/L (45-117); ANION GAP 6 (8-16); BILIRUBIN,TOTAL 0.4 mg/dL (0.2-1.0); BLOOD UREA NITROGEN 27 mg/dL (7-18); CALCIUM 9.1 mg/dL (8.5-10.1); CHLORIDE 104 mmol/L (98-107); CO2 30 mmol/L (21-32); CREATININE 1.4 mg/dL (0.7-1.3); GLUCOSE,RANDOM 77 mg/dL (74-106); POTASSIUM 4.5 mmol/L (3.5-5.1); SGOT/AST 19 U/L (15-37); SGPT/ALT 16 U/L (12-78); SODIUM 140 mmol/L (136-145); TOT PROT 7.8 g/dl (6.4-8.2)
[2017-03-28] MEDS ORDERED: LEVOFLOXACIN 750 MG IVPB 750 MG/150 ML BAG IVPB ONE ×3 (09:26→10:00)
--- NOTE | 2017-03-28 12:27 | EKG ---
Test Reason : Blood Pressure : / mmHG Vent. Rate : 083 BPM Atrial Rate : 083 BPM P-R Int : 138 ms QRS Dur : 118 ms QT Int : 400 ms P-R-T Axes : 105 267 090 degrees QTc Int : 470 ms POOR DATA QUALITY, INTERPRETATION MAY BE ADVERSELY AFFECTED Atrial-sensed ventricular-paced rhythm Biventricular pacemaker detected ABNORMAL ECG WHEN COMPARED WITH ECG OF 03-MAR-2010 22:03, ELECTRONIC VENTRICULAR PACEMAKER HAS REPLACED SINUS RHYTHM Confirmed by IVAN LEMON MD (2013) on 03/28/2017 12:27:39 PM Referred By: Confirmed By:IVAN LEMON MD
--- NOTE | 2017-03-28 13:48 | PN ---
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 (short form) - Note 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: PULMONARY CONSULTATION DICTATED 03/28/17 IMP COPD EXACERBATION CHRONIC HYPOXEMIC RESPIRATORY FAILURE URI ASHD S/P CABG,S/P STENTS CHF AFIB S/P PPM ACUTE KIDNEY INJURY S/P CVA HTN S/P AAA REPAIR PLAN IV STEROIDS INHALED BRONCHODILATORS O2 ANTIBIOTICS MONITOR LYTES,RENAL FUNCTION DR JEFFERSON Problem List - Problems (1) COPD exacerbation Code(s): J44.1 - CHRONIC OBSTRUCTIVE PULMONARY DISEASE W (ACUTE) EXACERBATION (2) Azotemia Code(s): R79.89 - OTHER SPECIFIED ABNORMAL FINDINGS OF BLOOD CHEMISTRY (3) COPD (chronic obstructive pulmonary disease) Code(s): J44.9 - CHRONIC OBSTRUCTIVE PULMONARY DISEASE, UNSPECIFIED (4) Chronic respiratory failure with hypoxia Code(s): J96.11 - CHRONIC RESPIRATORY FAILURE WITH HYPOXIA (5) History of aortic aneurysm repair Code(s): Z98.890 - OTHER SPECIFIED POSTPROCEDURAL STATES; Z86.79 - PERSONAL HISTORY OF OTHER DISEASES OF THE CIRCULATORY SYSTEM (6) Afib Code(s): I48.91 - UNSPECIFIED ATRIAL FIBRILLATION (7) CAD (coronary artery disease) Code(s): I25.10 - ATHSCL HEART DISEASE OF [place] CORONARY ARTERY W/O ANG PCTRS (8) History of permanent cardiac pacemaker placement Code(s): Z95.0 - PRESENCE OF CARDIAC PACEMAKER (9) Hx of CABG Code(s): Z95.1 - PRESENCE OF AORTOCORONARY BYPASS GRAFT (10) Hyperlipidemia Code(s): E78.5 - HYPERLIPIDEMIA, UNSPECIFIED Qualifiers: (11) Stented coronary artery Code(s): Z95.5 - PRESENCE OF CORONARY ANGIOPLASTY IMPLANT AND GRAFT (12) Acute kidney injury Code(s): N17.9 - ACUTE KIDNEY FAILURE, UNSPECIFIED
--- NOTE | 2017-03-28 14:01 | CONS ---
DATE OF CONSULTATION: 03/28/2017 PULMONARY CONSULTATION REFERRING PHYSICIAN: Elizabeth Ramírez MD HISTORY OF PRESENT ILLNESS: The patient is a 76-year-old white male known to me in previous hospitalization, as well as office follow-up. He has advanced COPD, on home oxygen therapy, ASHD, status post CABG, status post stents, AAA repair, atrial fibrillation, status post pacemaker, history of CVA with residual left-sided weakness and delayed speech, admitted to [facility] with the complaint of a 4 to 5-day history of increasing shortness of breath, cough and chest congestion. He states his cough is productive of yellow sputum. He denies hemoptysis. The patient has been complaining of recent subjective fever and chills. He presented to the emergency room with the above. In the ER, he was started on inhaled bronchodilators and steroids, with a good clinical response. There is no history of recent travel. There is no history of DVT or PE in the past. There is no history of occupational exposures. PAST MEDICAL HISTORY: Again, includes ASHD, status post CABG, status post stents; COPD on home oxygen therapy; status post CVA with short-term memory loss after CVA and forgetfulness; hypercholesterolemia; status post AAA repair; status post right femoral fracture in 2014; status post ORIF; history of tobacco use, quit in 2006. REVIEW OF SYSTEMS: Positive cough, positive shortness of breath. Positive questionable fever. No chills, no chest pain, no palpitations, no nausea, no vomiting, no abdominal pain, no lower extremity edema. MEDICATIONS: Prior to admission include Symbicort, ferrous sulfate, metoprolol, Lyrica, Flomax, lovastatin, Prinivil, albuterol, duloxetine, Lasix, and Mycolog cream. PHYSICAL EXAMINATION: General: The patient is an elderly white male, well-developed, awake, alert, currently in no acute respiratory distress. Vital Signs: He is currently afebrile. Blood pressure 134/89, respiratory rate 16. O2 saturation is 93% on 4 liters. HEENT: Normocephalic, atraumatic. Neck: Supple. Heart: Irregular, with S1, S2. Chest: Scattered bilateral wheezes. Abdomen: Soft. Bowel sounds are positive. Extremities: No cyanosis or edema. LABORATORY DATA: BUN 27, creatinine 1.4. BNP 1190. WBC 11.9, hemoglobin 14.7, hematocrit 46.7; platelet count 180,000. DIAGNOSTIC STUDIES: Chest x-ray reveals no acute infiltrates or effusions. IMPRESSION: 1. Ljjec-co-epxyrad hypoxemic respiratory failure acute exacerbation of chronic obstructive pulmonary disease. 2. Advanced chronic obstructive pulmonary disease, on home oxygen, with chronic hypoxemic respiratory failure. 3. Arteriosclerotic heart disease, status post coronary artery bypass graft surgery. 4. Rule out possible congestive heart failure. 5. Atrial fibrillation, status post permanent pacemaker. 6. Status post cerebrovascular accident. 7. Hypertension. PLAN: IV steroids, antibiotic therapy. inhaled bronchodilators, supplemental oxygen. Consider cardiology consultation. LUIS ANGEL JEFFERSON M.D. [id number]
[2017-03-28] MEDS: methylPREDNISolone NA SUCC 40 MG/1 ML VIAL IVPUSH SCH ×2 (14:21→21:33)
[2017-03-28] MEDS ORDERED: methylPREDNISolone NA SUCC 40 MG/1 ML VIAL ONE ×2 (14:24→21:30)
[2017-03-29] MEDS: BUDESONIDE/FORMETEROL FUMARATE 80/4.5 mcg INHALER IH SCH ×3 (00:19→21:55)
[2017-03-29] MEDS ORDERED: methylPREDNISolone NA SUCC 40 MG/1 ML VIAL ONE (03:01)
[2017-03-29] MEDS: methylPREDNISolone NA SUCC 40 MG/1 ML VIAL IVPUSH SCH ×4 (03:10→21:56)
[2017-03-29] MEDS: ALBUTEROL SO4 2.5/IPRATROPIUM 0.5 INH SOL 3 ML VIAL.NEB. NEB PRN ×2 (07:30→07:48)
[2017-03-29 07:40] LABS: HEMOGLOBIN 14.9 GM/dL (11.7-16.9); LYMPH % 6.5 % (8-40); MCH 28.3 pg (25.7-33.7); MCHC 32.3 g/dl (32.0-35.9); MEAN CELL VOLUME 87.7 fl (80-96); MEAN PLT VOLUME 9.8 fl (7.5-11.1); NEUT % 91.5 % (42.8-82.8); PLATELET COUNT 211 K/MM3 (134-434); RBC 5.24 M/mm3 (4.00-5.60); RDW 15.8 % (11.9-15.9); WHITE BLOOD COUNT 7.6 K/mm3 (4.0-10.0)
[2017-03-29 09:00] LABS: CHLORIDE 103 mmol/L (98-107); POTASSIUM 4.6 mmol/L (3.5-5.1); SODIUM 140 mmol/L (136-145)
[2017-03-29 09:06] LABS: ALBUMIN 3.6 g/dl (3.4-5.0); ALK PHOS 56 U/L (45-117); ANION GAP 12 (8-16); BILIRUBIN,TOTAL 0.5 mg/dL (0.2-1.0); BLOOD UREA NITROGEN 34 mg/dL (7-18); CALCIUM 9.4 mg/dL (8.5-10.1); CO2 25 mmol/L (21-32); CREATININE 1.4 mg/dL (0.7-1.3); GLUCOSE,RANDOM 98 mg/dL (74-106); SGOT/AST 18 U/L (15-37); SGPT/ALT 15 U/L (12-78); TOT PROT 7.6 g/dl (6.4-8.2)
--- NOTE | 2017-03-29 09:32 | PN ---
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, Physician Chief Complaint: 76 year old man with a history of HTN, HLD, Afib, CAD s/p CABG s/p stents, PPM, ICM refused ICD in the past, PAD, Thoracic aortic aneursym, CVA with residual L sided weakness, COPD known to me from office presents to ER several days of worsening dry cough and sob, expiratory wheezing. Seen by pulmonary, admitted with acute exacerbation COPD. Denies CP, edema, PND. - Current Medication List Current Medications: Active Medications Albuterol/Ipratropium (Duoneb -) 1 amp NEB Q4H PRN PRN Reason: SHORTNESS OF BREATH Last Admin: 03/29/17 07:48 Dose: 1 amp Atorvastatin Calcium (Lipitor -) 10 mg PO MoWeFr@2200 [facility] Budesonide/Formoterol Fumarate (Symbicort 80/4.5mcg -) 2 puff IH BID [facility] Last Admin: 03/29/17 00:19 Dose: Not Given Duloxetine HCl (Cymbalta -) 60 mg PO DAILY [facility] Ferrous Sulfate (Feosol -) 325 mg PO DAILY [facility] Furosemide (Lasix -) 20 mg PO DAILY [facility] Heparin Sodium (Porcine) (Heparin -) 5,000 unit SQ BID [facility] Levofloxacin (Levaquin 500 Mg Premixed Ivpb -) 500 mg in 100 mls @ 100 mls/hr IVPB DAILY [facility] Lisinopril (Prinivil) 10 mg PO DAILY [facility] Methylprednisolone Sodium Succinate (Solu-Medrol -) 40 mg IVPUSH Q6H-IV [facility] Last Admin: 03/29/17 03:10 Dose: 40 mg Metoprolol Succinate (Toprol Xl -) 50 mg PO DAILY [facility] Pregabalin (Lyrica -) 100 mg PO BID [facility] Tamsulosin HCl (Flomax -) 0.4 mg PO HS [facility] - Objective Vital Signs: Vital Signs Temperature 98.6 F 03/29/17 03:10 Pulse Rate 100 H 03/29/17 08:07 Respiratory Rate 26 H 03/29/17 08:07 Blood Pressure 155/107 03/29/17 08:07 O2 Sat by Pulse Oximetry (%) 98 03/29/17 08:07 Constitutional: Yes: No Distress, Calm Eyes: Yes: Conjunctiva Clear Cardiovascular: Yes: Regular Rate and Rhythm Respiratory: Yes: Other (expiratory wheezing) Gastrointestinal: Yes: Soft Edema: No Neurological: Yes: Alert, Oriented Labs: CBC, BMP 03/29/17 07:20 03/29/17 07:20 Laboratory Tests 03/28/17 03/29/17 03/29/17 07:50 07:20 07:20 WBC 7.6 D Hgb 14.9 Plt Count 211 Sodium 140 Potassium 4.6 Creatinine 1.4 H B-Natriuretic Peptide 1190.43 H - ....Imaging X-ray: Report Reviewed EKG: Image Reviewed (paced. NSST changes) Assessment/Plan 76 year old man with a history of HTN, HLD, Afib, CAD s/p CABG s/p stents, PPM, ICM refused ICD in the past, PAD, Thoracic aortic aneursym, CVA with residual L sided weakness, COPD known to me from office presents to ER with acute exacerbation of COPD. Plan: 1. AECOPD: -CPAP and IV steroid taper as per pulmonary 2. Chronic systolic CF secondary for ICM: -Cont Lasix, Toprol and BRAULIO-I 3.AF: -Continue Xarelto
[2017-03-29] MEDS ORDERED: PREGABALIN 100 MG CAPSULE ONE (09:46)
[2017-03-29] MEDS ORDERED: LEVOFLOXACIN 500 MG IVPB 500 MG/100 ML BAG IVPB ONE (09:46)
[2017-03-29] MEDS ORDERED: PREGABALIN 100 MG CAPSULE PO SCH (10:00)
[2017-03-29] MEDS ORDERED: HEPARIN NA (PORCINE) 5,000 UNITS/ML 1ML VIAL SQ SCH (10:00)
[2017-03-29] MEDS: LISINOPRIL 10 MG TABLET (FP) PO SCH (10:03)
[2017-03-29] MEDS: DULoxetine HCL 30 MG CAPSULE.DR (FP) PO SCH (10:03)
[2017-03-29] MEDS: LEVOFLOXACIN 500 MG IVPB 500 MG/100 ML BAG IVPB SCH (10:03)
[2017-03-29] MEDS: FUROSEMIDE 20 MG TABLET (FP) PO SCH (10:03)
[2017-03-29] MEDS: FERROUS SO4 325 MG TABLET (FP) PO SCH (10:03)
[2017-03-29] MEDS: METOPROLOL SUCCINATE 50 MG TAB.SR.24H (FP) PO SCH (10:03)
--- NOTE | 2017-03-29 10:14 | HP ---
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 Pt now presented to the ER w/SOB for the past 5 days. Pt now complains of productive cough w/ yellowish sputum production. Pt c/o fever although never took his temperature. Pt denies any palpitations, chest pain, nausea, vomiting and no wheezing. CXR done in the ER did not show any acute pathology. 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, Seizure Cardiovascular: Yes: AFIB, Aneurysm, CAD, CHF, HTN, Hyperlipdemia, Murmur, Other (peripheral artery disease) Pulmonary: Yes: COPD Renal/: Yes: BPH - Past Surgical History Past Surgical History: Yes: AAA Repair, Bypass (lower ext), Permanent Pacemaker , Stent (cardiac x 2) - Smoking History Smoking history: Unknown if ever smoked Have you smoked in the past 12 months: No If you are a former smoker, when did you quit?: 2007 - Alcohol/Substance Use Hx Alcohol Use: No History of Substance Use: reports: None - Social History ADL: Family Assistance History of Recent Travel: No Home Medications - Allergies Allergies/Adverse Reactions: Allergies Allergy/AdvReac Type Severity Reaction Status Date / Time prednisone AdvReac Intermediate "too wired" Verified 03/28/17 06:57 - Home Medications Home Medications: Ambulatory Orders Budesonide/Formeterol Fumarate [SYMBICORT 160/4.5mcg -] 2 inh PO BID 04/22/16 Ferrous Sulfate 325 mg PO DAILY 04/22/16 Metoprolol Succinate [Toprol Xl] 50 mg PO DAILY 04/22/16 Pregabalin [Lyrica] 100 mg PO BID 04/22/16 Tamsulosin HCl [Flomax] 0.4 mg PO HS 04/22/16 Lovastatin 40 mg PO .MWF NIGHTLY 07/31/16 Mineral Oil/Pet Hy-Phl [Aquaphor -] 1 applic TP BID PRN 07/31/16 Lisinopril [Prinivil] 10 mg PO DAILY tablet 08/02/16 Albuterol 0.083% Nebulizer Suki [Ventolin 0.083% Nebulizer Soln -] 1 amp NEB Q8H 09/21/16 Duloxetine HCl [Cymbalta] 60 mg PO DAILY 09/28/16 Furosemide [Lasix -] 20 mg PO DAILY 12/04/16 Fluocinonide 0.05% Cream [Lidex 0.05% Cream -] 1 applic TP DAILY #120 tube 01/11 Metoprolol Succinate [Toprol XL -] 25 mg PO DAILY #30 tab.sr.24h 01/11/17 Nystatin/Triamcinolone Top Cr [Mycolog II -] 3 applic TP BID #120 applic Physical Examination Vital Signs: Vital Signs Temperature 98.6 F 03/29/17 03:10 Pulse Rate 108 H 03/29/17 09:31 Respiratory Rate 26 H 03/29/17 08:07 Blood Pressure 155/107 03/29/17 08:07 O2 Sat by Pulse Oximetry (%) 95 03/29/17 09:31 Labs: CBC, BMP 03/29/17 07:20 03/29/17 07:20
--- NOTE | 2017-03-29 10:42 | PN ---
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, Physician History of Present Illness: pulmonary alert,on bipap comfortable,earlier desaturated on nasal o2 - Current Medication List Current Medications: Active Medications Albuterol/Ipratropium (Duoneb -) 1 amp NEB Q4H PRN PRN Reason: SHORTNESS OF BREATH Last Admin: 03/29/17 07:48 Dose: 1 amp Atorvastatin Calcium (Lipitor -) 10 mg PO MoWeFr@2200 [facility] Budesonide/Formoterol Fumarate (Symbicort 80/4.5mcg -) 2 puff IH BID [facility] Last Admin: 03/29/17 00:19 Dose: Not Given Duloxetine HCl (Cymbalta -) 60 mg PO DAILY [facility] Ferrous Sulfate (Feosol -) 325 mg PO DAILY [facility] Furosemide (Lasix -) 20 mg PO DAILY [facility] Levofloxacin (Levaquin 500 Mg Premixed Ivpb -) 500 mg in 100 mls @ 100 mls/hr IVPB DAILY [facility] Lisinopril (Prinivil) 10 mg PO DAILY [facility] Methylprednisolone Sodium Succinate (Solu-Medrol -) 40 mg IVPUSH Q6H-IV [facility] Last Admin: 03/29/17 03:10 Dose: 40 mg Metoprolol Succinate (Toprol Xl -) 50 mg PO DAILY [facility] Pregabalin (Lyrica -) 100 mg PO BID [facility] Rivaroxaban (Xarelto -) 20 mg PO DAILY@1800 [facility] Tamsulosin HCl (Flomax -) 0.4 mg PO HS [facility] - Objective Vital Signs: Vital Signs Temperature 98.6 F 03/29/17 03:10 Pulse Rate 108 H 03/29/17 09:31 Respiratory Rate 26 H 03/29/17 08:07 Blood Pressure 155/107 03/29/17 08:07 O2 Sat by Pulse Oximetry (%) 95 03/29/17 09:31 Constitutional: Yes: Well Nourished, Calm Eyes: Yes: WNL, Other Neck: Yes: WNL Cardiovascular: Yes: Pulse Irregular, S1, S2 Respiratory: Yes: Rales, Rhonchi (scattered antonia rhonchi,coarse rales bilaterally ) Gastrointestinal: Yes: Normal Bowel Sounds, Soft Extremities: Yes: WNL Edema: No Labs: CBC, BMP 03/29/17 07:20 03/29/17 07:20 Problem List - Problems (1) COPD exacerbation Code(s): J44.1 - CHRONIC OBSTRUCTIVE PULMONARY DISEASE W (ACUTE) EXACERBATION (2) Azotemia Code(s): R79.89 - OTHER SPECIFIED ABNORMAL FINDINGS OF BLOOD CHEMISTRY (3) COPD (chronic obstructive pulmonary disease) Code(s): J44.9 - CHRONIC OBSTRUCTIVE PULMONARY DISEASE, UNSPECIFIED (4) Chronic respiratory failure with hypoxia Code(s): J96.11 - CHRONIC RESPIRATORY FAILURE WITH HYPOXIA (5) History of aortic aneurysm repair Code(s): Z98.890 - OTHER SPECIFIED POSTPROCEDURAL STATES; Z86.79 - PERSONAL HISTORY OF OTHER DISEASES OF THE CIRCULATORY SYSTEM (6) Afib Code(s): I48.91 - UNSPECIFIED ATRIAL FIBRILLATION (7) CAD (coronary artery disease) Code(s): I25.10 - ATHSCL HEART DISEASE OF [place] CORONARY ARTERY W/O ANG PCTRS (8) History of permanent cardiac pacemaker placement Code(s): Z95.0 - PRESENCE OF CARDIAC PACEMAKER (9) Hx of CABG Code(s): Z95.1 - PRESENCE OF AORTOCORONARY BYPASS GRAFT (10) Hyperlipidemia Code(s): E78.5 - HYPERLIPIDEMIA, UNSPECIFIED Qualifiers: (11) Stented coronary artery Code(s): Z95.5 - PRESENCE OF CORONARY ANGIOPLASTY IMPLANT AND GRAFT (12) Acute kidney injury Code(s): N17.9 - ACUTE KIDNEY FAILURE, UNSPECIFIED Assessment/Plan IMP COPD EXACERBATION CHRONIC HYPOXEMIC RESPIRATORY FAILURE URI ASHD S/P CABG,S/P STENTS CHF AFIB S/P PPM ACUTE KIDNEY INJURY S/P CVA HTN S/P AAA REPAIR PLAN IV STEROIDS INHALED BRONCHODILATORS BIPAP O2 ANTIBIOTICS MONITOR LYTES,RENAL FUNCTION DR JEFFERSON Problem List - Problems (1) COPD exacerbation Code(s): J44.1 - CHRONIC OBSTRUCTIVE PULMONARY DISEASE W (ACUTE) EXACERBATION (2) Azotemia Code(s): R79.89 - OTHER SPECIFIED ABNORMAL FINDINGS OF BLOOD CHEMISTRY (3) COPD (chronic obstructive pulmonary disease) Code(s): J44.9 - CHRONIC OBSTRUCTIVE PULMONARY DISEASE, UNSPECIFIED (4) Chronic respiratory failure with hypoxia Code(s): J96.11 - CHRONIC RESPIRATORY FAILURE WITH HYPOXIA (5) History of aortic aneurysm repair Code(s): Z98.890 - OTHER SPECIFIED POSTPROCEDURAL STATES; Z86.79 - PERSONAL HISTORY OF OTHER DISEASES OF THE CIRCULATORY SYSTEM (6) Afib Code(s): I48.91 - UNSPECIFIED ATRIAL FIBRILLATION (7) CAD (coronary artery disease) Code(s): I25.10 - ATHSCL HEART DISEASE OF [place] CORONARY ARTERY W/O ANG PCTRS (8) History of permanent cardiac pacemaker placement Code(s): Z95.0 - PRESENCE OF CARDIAC PACEMAKER (9) Hx of CABG Code(s): Z95.1 - PRESENCE OF AORTOCORONARY BYPASS GRAFT (10) Hyperlipidemia Code(s): E78.5 - HYPERLIPIDEMIA, UNSPECIFIED Qualifiers: (11) Stented coronary artery Code(s): Z95.5 - PRESENCE OF CORONARY ANGIOPLASTY IMPLANT AND GRAFT (12) Acute kidney injury Code(s): N17.9 - ACUTE KIDNEY FAILURE, UNSPECIFIED
[2017-03-29 17:18] VITALS: BMI 25.2
[2017-03-29] MEDS: RIVAROXABAN 20 MG TABLET PO SCH (21:56)
[2017-03-29] MEDS: PREGABALIN 50 MG CAPSULE PO SCH (21:56)
[2017-03-29] MEDS: ATORVASTATIN CA 10 MG TABLET (FP) PO SCH (21:56)
[2017-03-29] MEDS: TAMSULOSIN HCL 0.4 MG CAP.ER.24H (FP) PO SCH (21:56)
[2017-03-30] MEDS: methylPREDNISolone NA SUCC 40 MG/1 ML VIAL IVPUSH SCH ×6 (02:36→23:40)
[2017-03-30] MEDS ORDERED: PT OWN MED DRAWER 7, Y5N ONE ×2 (06:28→21:30)
[2017-03-30] MEDS: LEVOFLOXACIN 500 MG IVPB 500 MG/100 ML BAG IVPB SCH (09:58)
[2017-03-30] MEDS: METOPROLOL SUCCINATE 50 MG TAB.SR.24H (FP) PO SCH (09:58)
[2017-03-30] MEDS: FUROSEMIDE 20 MG TABLET (FP) PO SCH (09:59)
[2017-03-30] MEDS: FERROUS SO4 325 MG TABLET (FP) PO SCH (09:59)
[2017-03-30] MEDS: PREGABALIN 50 MG CAPSULE PO SCH ×2 (09:59→21:34)
[2017-03-30] MEDS: DULoxetine HCL 30 MG CAPSULE.DR (FP) PO SCH (09:59)
[2017-03-30] MEDS: LISINOPRIL 10 MG TABLET (FP) PO SCH (09:59)
[2017-03-30] MEDS: BUDESONIDE/FORMETEROL FUMARATE 80/4.5 mcg INHALER IH SCH ×2 (10:01→21:34)
--- NOTE | 2017-03-30 10:24 | PN ---
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, Physician Chief Complaint: appears clinically improved - Current Medication List Current Medications: Active Medications Albuterol/Ipratropium (Duoneb -) 1 amp NEB Q4H PRN PRN Reason: SHORTNESS OF BREATH Last Admin: 03/29/17 07:48 Dose: 1 amp Atorvastatin Calcium (Lipitor -) 10 mg PO MoWeFr@2200 [facility] Last Admin: 03/29/17 21:56 Dose: 10 mg Budesonide/Formoterol Fumarate (Symbicort 80/4.5mcg -) 2 puff IH BID [facility] Last Admin: 03/30/17 10:01 Dose: 2 puff Duloxetine HCl (Cymbalta -) 60 mg PO DAILY [facility] Last Admin: 03/30/17 09:59 Dose: 60 mg Ferrous Sulfate (Feosol -) 325 mg PO DAILY [facility] Last Admin: 03/30/17 09:59 Dose: 325 mg Furosemide (Lasix -) 20 mg PO DAILY [facility] Last Admin: 03/30/17 09:59 Dose: 20 mg Levofloxacin (Levaquin 500 Mg Premixed Ivpb -) 500 mg in 100 mls @ 100 mls/hr IVPB DAILY [facility] Last Admin: 03/30/17 09:58 Dose: 100 mls/hr Lisinopril (Prinivil) 10 mg PO DAILY [facility] Last Admin: 03/30/17 09:59 Dose: 10 mg Methylprednisolone Sodium Succinate (Solu-Medrol -) 40 mg IVPUSH Q6H-IV [facility] Last Admin: 03/30/17 09:58 Dose: 40 mg Metoprolol Succinate (Toprol Xl -) 50 mg PO DAILY [facility] Last Admin: 03/30/17 09:58 Dose: 50 mg Pregabalin (Lyrica -) 100 mg PO BID [facility] Last Admin: 03/30/17 09:59 Dose: 100 mg Rivaroxaban (Xarelto -) 20 mg PO DAILY@1800 [facility] Last Admin: 03/29/17 21:56 Dose: 20 mg Tamsulosin HCl (Flomax -) 0.4 mg PO HS [facility] Last Admin: 03/29/17 21:56 Dose: 0.4 mg - Objective Vital Signs: Vital Signs Temperature 97.7 F 03/30/17 05:29 Pulse Rate 106 H 03/30/17 05:29 Respiratory Rate 18 03/30/17 05:29 Blood Pressure 117/74 03/30/17 05:29 O2 Sat by Pulse Oximetry (%) 96 03/30/17 05:58 Constitutional: Yes: Calm Eyes: Yes: Conjunctiva Clear Cardiovascular: Yes: Regular Rate and Rhythm Respiratory: Yes: CTA Bilaterally (no wheezing today) Edema: No Neurological: Yes: Alert, Oriented ...Motor Strength: WNL Labs: CBC, BMP 03/29/17 07:20 03/29/17 07:20 Assessment/Plan 76 year old man with a history of HTN, HLD, Afib, CAD s/p CABG s/p stents, PPM, ICM refused ICD in the past, PAD, Thoracic aortic aneursym, CVA with residual L sided weakness, COPD known to me from office presents to ER with acute exacerbation of COPD. Plan: 1. AECOPD:clinically improved. -CPAP and IV steroid taper as per pulmonary 2. Chronic systolic CF secondary for ICM: -Cont Lasix, Toprol and BRAULIO-I 3.AF: -Continue Xarelto
--- NOTE | 2017-03-30 12:13 | PN ---
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, Physician History of Present Illness: pulmonary c/o sob on bipap - Current Medication List Current Medications: Active Medications Albuterol/Ipratropium (Duoneb -) 1 amp NEB Q4H PRN PRN Reason: SHORTNESS OF BREATH Last Admin: 03/29/17 07:48 Dose: 1 amp Atorvastatin Calcium (Lipitor -) 10 mg PO MoWeFr@2200 [facility] Last Admin: 03/29/17 21:56 Dose: 10 mg Budesonide/Formoterol Fumarate (Symbicort 80/4.5mcg -) 2 puff IH BID [facility] Last Admin: 03/30/17 10:01 Dose: 2 puff Duloxetine HCl (Cymbalta -) 60 mg PO DAILY [facility] Last Admin: 03/30/17 09:59 Dose: 60 mg Ferrous Sulfate (Feosol -) 325 mg PO DAILY [facility] Last Admin: 03/30/17 09:59 Dose: 325 mg Furosemide (Lasix -) 20 mg PO DAILY [facility] Last Admin: 03/30/17 09:59 Dose: 20 mg Levofloxacin (Levaquin 500 Mg Premixed Ivpb -) 500 mg in 100 mls @ 100 mls/hr IVPB DAILY [facility] Last Admin: 03/30/17 09:58 Dose: 100 mls/hr Lisinopril (Prinivil) 10 mg PO DAILY [facility] Last Admin: 03/30/17 09:59 Dose: 10 mg Methylprednisolone Sodium Succinate (Solu-Medrol -) 40 mg IVPUSH Q6H-IV [facility] Last Admin: 03/30/17 09:58 Dose: 40 mg Metoprolol Succinate (Toprol Xl -) 50 mg PO DAILY [facility] Last Admin: 03/30/17 09:58 Dose: 50 mg Pregabalin (Lyrica -) 100 mg PO BID [facility] Last Admin: 03/30/17 09:59 Dose: 100 mg Rivaroxaban (Xarelto -) 20 mg PO DAILY@1800 [facility] Last Admin: 03/29/17 21:56 Dose: 20 mg Tamsulosin HCl (Flomax -) 0.4 mg PO HS [facility] Last Admin: 03/29/17 21:56 Dose: 0.4 mg - Objective Vital Signs: Vital Signs Temperature 97.7 F 03/30/17 05:29 Pulse Rate 106 H 03/30/17 05:29 Respiratory Rate 18 03/30/17 05:29 Blood Pressure 117/74 03/30/17 05:29 O2 Sat by Pulse Oximetry (%) 96 03/30/17 05:58 Constitutional: Yes: Well Nourished, Calm Eyes: Yes: WNL HENT: Yes: WNL Neck: Yes: WNL Cardiovascular: Yes: Pulse Irregular, S1, S2 Respiratory: Yes: Rhonchi (scattered [place] rhonchi) Gastrointestinal: Yes: Normal Bowel Sounds, Soft Extremities: Yes: WNL Edema: No Labs: CBC, BMP Problem List - Problems (1) COPD exacerbation Code(s): J44.1 - CHRONIC OBSTRUCTIVE PULMONARY DISEASE W (ACUTE) EXACERBATION (2) Azotemia Code(s): R79.89 - OTHER SPECIFIED ABNORMAL FINDINGS OF BLOOD CHEMISTRY (3) COPD (chronic obstructive pulmonary disease) Code(s): J44.9 - CHRONIC OBSTRUCTIVE PULMONARY DISEASE, UNSPECIFIED (4) Chronic respiratory failure with hypoxia Code(s): J96.11 - CHRONIC RESPIRATORY FAILURE WITH HYPOXIA (5) History of aortic aneurysm repair Code(s): Z98.890 - OTHER SPECIFIED POSTPROCEDURAL STATES; Z86.79 - PERSONAL HISTORY OF OTHER DISEASES OF THE CIRCULATORY SYSTEM (6) Afib Code(s): I48.91 - UNSPECIFIED ATRIAL FIBRILLATION (7) CAD (coronary artery disease) Code(s): I25.10 - ATHSCL HEART DISEASE OF [place] CORONARY ARTERY W/O ANG PCTRS (8) History of permanent cardiac pacemaker placement Code(s): Z95.0 - PRESENCE OF CARDIAC PACEMAKER (9) Hx of CABG Code(s): Z95.1 - PRESENCE OF AORTOCORONARY BYPASS GRAFT (10) Hyperlipidemia Code(s): E78.5 - HYPERLIPIDEMIA, UNSPECIFIED Qualifiers: (11) Stented coronary artery Code(s): Z95.5 - PRESENCE OF CORONARY ANGIOPLASTY IMPLANT AND GRAFT (12) Acute kidney injury Code(s): N17.9 - ACUTE KIDNEY FAILURE, UNSPECIFIED Assessment/Plan IMP COPD EXACERBATION CHRONIC HYPOXEMIC RESPIRATORY FAILURE URI ASHD S/P CABG,S/P STENTS CHF AFIB S/P PPM ACUTE KIDNEY INJURY S/P CVA HTN S/P AAA REPAIR PLAN IV STEROIDS SAME DOSE INHALED BRONCHODILATORS BIPAP O2 ANTIBIOTICS MONITOR LYTES,RENAL FUNCTION DR JFEFERSON Problem List - Problems (1) COPD exacerbation Code(s): J44.1 - CHRONIC OBSTRUCTIVE PULMONARY DISEASE W (ACUTE) EXACERBATION (2) Azotemia Code(s): R79.89 - OTHER SPECIFIED ABNORMAL FINDINGS OF BLOOD CHEMISTRY (3) COPD (chronic obstructive pulmonary disease) Code(s): J44.9 - CHRONIC OBSTRUCTIVE PULMONARY DISEASE, UNSPECIFIED (4) Chronic respiratory failure with hypoxia Code(s): J96.11 - CHRONIC RESPIRATORY FAILURE WITH HYPOXIA (5) History of aortic aneurysm repair Code(s): Z98.890 - OTHER SPECIFIED POSTPROCEDURAL STATES; Z86.79 - PERSONAL HISTORY OF OTHER DISEASES OF THE CIRCULATORY SYSTEM (6) Afib Code(s): I48.91 - UNSPECIFIED ATRIAL FIBRILLATION (7) CAD (coronary artery disease) Code(s): I25.10 - ATHSCL HEART DISEASE OF [place] CORONARY ARTERY W/O ANG PCTRS (8) History of permanent cardiac pacemaker placement Code(s): Z95.0 - PRESENCE OF CARDIAC PACEMAKER (9) Hx of CABG Code(s): Z95.1 - PRESENCE OF AORTOCORONARY BYPASS GRAFT (10) Hyperlipidemia Code(s): E78.5 - HYPERLIPIDEMIA, UNSPECIFIED Qualifiers: (11) Stented coronary artery Code(s): Z95.5 - PRESENCE OF CORONARY ANGIOPLASTY IMPLANT AND GRAFT (12) Acute kidney injury Code(s): N17.9 - ACUTE KIDNEY FAILURE, UNSPECIFIED
[2017-03-30] MEDS: RIVAROXABAN 20 MG TABLET PO SCH (17:10)
[2017-03-30] MEDS: ALBUTEROL SO4 2.5/IPRATROPIUM 0.5 INH SOL 3 ML VIAL.NEB. NEB PRN (18:30)
[2017-03-30 21:10] LABS: ARTERIAL BLD GAS O2 SATURATION 86.6 % (90-98.9); ARTERIAL BLOOD GAS BASE EXCESS 2.1 meq/l (-2-2); ARTERIAL BLOOD GAS PCO2 34.7 mmHg (35-45); ARTERIAL BLOOD GAS pH 7.47 (7.35-7.45)
--- NOTE | 2017-03-30 21:11 | RAPID ---
Physical Examination Vital Signs: Vital Signs Labs: CBC, BMP 03/29/17 07:20 03/29/17 07:20 Rapid Response - Rapid Response Assessment: Rapid Response called and Medical team responded immediately. Upon my arrival patient was in respiratory distress on BIPAP. Patient states he is having chest pain and pointed to the left side that started in the last hour. He is unable to speak in full sentences and cannot give further information. According to the nurse patient has been on BIPAP all day with mild respiratory distress that worsened in the last hour as well as the chest pain. VITALS: BP: 156/79 HR: 72 02%: 91% on RA PHYSICAL EXAMINATION GENERAL: Awake, Alert, in moderate respiratory distress on BIPAP. Speaking but with difficulty HEART: RRR LUNGS: Mild expiratory wheezing on left bases Abdomen: Soft, nontender, nindistended EXTREMITIES: No peripheral Edema A&P Briefly, patient is a 76 year old male with a PMHx of HTN, HLD, A.fib on Xarelto , CAD s/p CABG/STENTS, biventricular pacemaker, PAD, thoracic aortic aneurysm, CVA, and COPD who presented to the ED for shortness of breath and was found to be in acute COPD exacerbation. -I suspect patient is having worsening COPD exacerbation because of constant BIPAP use throughout the whole day, however, we must rule out cardiac etiology due to his extensive cardiac history and his sudden onset of chest pain. Patient has been coughing for the last couple of days and does report chest pain when he coughs, which is highly suspicious for pleuritic chest pain. -STAT EKG done, which revealed paced rhythm @[address]-T changes and no changes from prior EKG done on admission -STAT Troponins ordered -STAT Chest X-Ray ordered -STAT BMP ordered -STAT DuoNeb treatment ordered -STAT ABG ordered -Morphine 1mg ordered -When DuoNeb given patient reported having relief of chest pain with some relief of his shortness of breath. Patient will likely need increased IV steroids throughout the day as well. 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
[2017-03-30 21:13] LABS: ALLENS TEST POSITIVE
[2017-03-30 21:14] LABS: ARTERIAL BLOOD GAS PO2 51.8 mmHg (70-100)
[2017-03-30] MEDS ORDERED: morphine CARPU-JECT 8 MG/1 ML DISP.SYRIN IVPUSH ONE (21:15)
[2017-03-30] MEDS: TAMSULOSIN HCL 0.4 MG CAP.ER.24H (FP) PO SCH (21:34)
[2017-03-30] MEDS ORDERED: methylPREDNISolone NA SUCC 40 MG/1 ML VIAL IVPUSH SCH (21:49)
[2017-03-30] MEDS ORDERED: ALBUTEROL SO4 0.083% IH SOL 2.5 MG/3 ML VIAL.NEB. NEB PRN (21:51)
[2017-03-30 22:18] LABS: ANION GAP 11 (8-16); BLOOD UREA NITROGEN 52 mg/dL (7-18); CALCIUM 9.3 mg/dL (8.5-10.1); CHLORIDE 103 mmol/L (98-107); CO2 25 mmol/L (21-32); CREATININE 1.5 mg/dL (0.7-1.3); GLUCOSE,RANDOM 104 mg/dL (74-106); POTASSIUM 4.4 mmol/L (3.5-5.1); SODIUM 139 mmol/L (136-145)
[2017-03-30] MEDS ORDERED: amLODIPine BESYLATE 5 MG TABLET (FP) PO ONE (23:30)
[2017-03-31] MEDS: ALBUTEROL SO4 2.5/IPRATROPIUM 0.5 INH SOL 3 ML VIAL.NEB. NEB SCH ×5 (00:17→23:32)
[2017-03-31] MEDS: methylPREDNISolone NA SUCC 40 MG/1 ML VIAL IVPUSH SCH ×4 (03:08→21:42)
--- NOTE | 2017-03-31 09:58 | PN ---
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, Physician Chief Complaint: episode of CP, transferred to [facility] last night Patient has chronic CP, likely intermittent angina Was also admitted for similar several months ago- does not want any interventions performed and thus he was treated medically - Current Medication List Current Medications: Active Medications Albuterol Sulfate (Ventolin 0.083% Nebulizer Soln -) 1 amp NEB Q4H PRN PRN Reason: SHORT OF BREATH/WHEEZING Albuterol/Ipratropium (Duoneb -) 1 amp NEB QIDR [facility] Last Admin: 03/31/17 07:25 Dose: 1 amp Atorvastatin Calcium (Lipitor -) 10 mg PO MoWeFr@2200 [facility] Last Admin: 03/29/17 21:56 Dose: 10 mg Budesonide/Formoterol Fumarate (Symbicort 80/4.5mcg -) 2 puff IH BID [facility] Last Admin: 03/30/17 21:34 Dose: 2 puff Duloxetine HCl (Cymbalta -) 60 mg PO DAILY [facility] Last Admin: 03/30/17 09:59 Dose: 60 mg Ferrous Sulfate (Feosol -) 325 mg PO DAILY [facility] Last Admin: 03/30/17 09:59 Dose: 325 mg Furosemide (Lasix -) 20 mg PO DAILY [facility] Last Admin: 03/30/17 09:59 Dose: 20 mg Levofloxacin (Levaquin 500 Mg Premixed Ivpb -) 500 mg in 100 mls @ 100 mls/hr IVPB DAILY [facility] Last Admin: 03/30/17 09:58 Dose: 100 mls/hr Lisinopril (Prinivil) 10 mg PO DAILY [facility] Last Admin: 03/30/17 09:59 Dose: 10 mg Methylprednisolone Sodium Succinate (Solu-Medrol -) 60 mg IVPUSH Q6H-IV [facility] Last Admin: 03/31/17 03:08 Dose: 60 mg Metoprolol Succinate (Toprol Xl -) 50 mg PO DAILY [facility] Last Admin: 03/30/17 09:58 Dose: 50 mg Pregabalin (Lyrica -) 100 mg PO BID [facility] Last Admin: 03/30/17 21:34 Dose: 100 mg Rivaroxaban (Xarelto -) 20 mg PO DAILY@1800 [facility] Last Admin: 03/30/17 17:10 Dose: 20 mg Tamsulosin HCl (Flomax -) 0.4 mg PO HS [facility] Last Admin: 03/30/17 21:34 Dose: 0.4 mg - Objective Vital Signs: Vital Signs Temperature 97.3 F L 03/31/17 06:00 Pulse Rate 93 H 03/31/17 06:00 Respiratory Rate 20 03/31/17 06:00 Blood Pressure 133/83 03/31/17 06:00 O2 Sat by Pulse Oximetry (%) 93 L 03/31/17 03:30 Constitutional: Yes: No Distress, Calm Cardiovascular: Yes: Regular Rate and Rhythm Respiratory: Yes: Other (decreased breath sounds, no wheezing) Gastrointestinal: Yes: Soft Edema: No Neurological: Yes: Alert, Oriented Labs: CBC, BMP 03/29/17 07:20 03/30/17 20:50 - ....Imaging EKG: Image Reviewed Assessment/Plan 76 year old man with a history of HTN, HLD, Afib, CAD s/p CABG s/p stents, PPM, ICM refused ICD in the past, PAD, Thoracic aortic aneursym, CVA with residual L sided weakness, COPD known to me from office presents to ER with acute exacerbation of COPD. Plan: 1. AECOPD:clinically improved. -CPAP and IV steroid taper as per pulmonary 2. Chronic systolic CF secondary for ICM: -Cont Lasix, Toprol and BRAULIO-I 3.AF: -Continue Xarelto 4. Angina: chronic -Patient has refused any further interventions, and thus was treated medically -Add Imdur 30mg daily and continue tele for 24 hours
[2017-03-31] MEDS: BUDESONIDE/FORMETEROL FUMARATE 80/4.5 mcg INHALER IH SCH ×2 (10:27→22:50)
[2017-03-31] MEDS: DULoxetine HCL 30 MG CAPSULE.DR (FP) PO SCH (10:40)
[2017-03-31] MEDS: LEVOFLOXACIN 500 MG IVPB 500 MG/100 ML BAG IVPB SCH (10:40)
[2017-03-31] MEDS: FUROSEMIDE 20 MG TABLET (FP) PO SCH (10:40)
[2017-03-31] MEDS: PREGABALIN 50 MG CAPSULE PO SCH ×2 (10:40→21:40)
--- NOTE | 2017-03-31 10:41 | PN ---
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, Physician History of Present Illness: PULMONARY ALERT,TRANSFERRED TO [facility] LAST NIGHT SECONDARY TO INCREASED RESP DISTRESS. PT FEELING BETTER TODAY LESS DYSPNEIC ON NASAL O2. SAT 88% - Current Medication List Current Medications: Active Medications Albuterol Sulfate (Ventolin 0.083% Nebulizer Soln -) 1 amp NEB Q4H PRN PRN Reason: SHORT OF BREATH/WHEEZING Albuterol/Ipratropium (Duoneb -) 1 amp NEB QIDR [facility] Last Admin: 03/31/17 07:25 Dose: 1 amp Atorvastatin Calcium (Lipitor -) 10 mg PO MoWeFr@2200 [facility] Last Admin: 03/29/17 21:56 Dose: 10 mg Budesonide/Formoterol Fumarate (Symbicort 80/4.5mcg -) 2 puff IH BID [facility] Last Admin: 03/30/17 21:34 Dose: 2 puff Duloxetine HCl (Cymbalta -) 60 mg PO DAILY [facility] Last Admin: 03/30/17 09:59 Dose: 60 mg Ferrous Sulfate (Feosol -) 325 mg PO DAILY [facility] Last Admin: 03/30/17 09:59 Dose: 325 mg Furosemide (Lasix -) 20 mg PO DAILY [facility] Last Admin: 03/30/17 09:59 Dose: 20 mg Levofloxacin (Levaquin 500 Mg Premixed Ivpb -) 500 mg in 100 mls @ 100 mls/hr IVPB DAILY [facility] Last Admin: 03/30/17 09:58 Dose: 100 mls/hr Isosorbide Mononitrate (Imdur -) 30 mg PO DAILY [facility] Lisinopril (Prinivil) 10 mg PO DAILY [facility] Last Admin: 03/30/17 09:59 Dose: 10 mg Methylprednisolone Sodium Succinate (Solu-Medrol -) 60 mg IVPUSH Q6H-IV [facility] Last Admin: 03/31/17 03:08 Dose: 60 mg Metoprolol Succinate (Toprol Xl -) 50 mg PO DAILY [facility] Last Admin: 03/30/17 09:58 Dose: 50 mg Pregabalin (Lyrica -) 100 mg PO BID [facility] Last Admin: 03/30/17 21:34 Dose: 100 mg Rivaroxaban (Xarelto -) 20 mg PO DAILY@1800 [facility] Last Admin: 03/30/17 17:10 Dose: 20 mg Tamsulosin HCl (Flomax -) 0.4 mg PO HS [facility] Last Admin: 03/30/17 21:34 Dose: 0.4 mg - Objective Vital Signs: Vital Signs Temperature 97.3 F L 03/31/17 06:00 Pulse Rate 93 H 03/31/17 06:00 Respiratory Rate 20 03/31/17 06:00 Blood Pressure 133/83 03/31/17 06:00 O2 Sat by Pulse Oximetry (%) 93 L 03/31/17 03:30 Constitutional: Yes: Well Nourished, Calm Eyes: Yes: WNL HENT: Yes: WNL Neck: Yes: WNL Cardiovascular: Yes: Pulse Irregular, S1, S2 Respiratory: Yes: Wheezes (SCATTERED WILLIAMS WHEEZES) Gastrointestinal: Yes: Normal Bowel Sounds, Soft Extremities: Yes: WNL Edema: No Labs: CBC, BMP 03/29/17 07:20 03/30/17 20:50 Problem List - Problems (1) COPD exacerbation Code(s): J44.1 - CHRONIC OBSTRUCTIVE PULMONARY DISEASE W (ACUTE) EXACERBATION (2) Azotemia Code(s): R79.89 - OTHER SPECIFIED ABNORMAL FINDINGS OF BLOOD CHEMISTRY (3) COPD (chronic obstructive pulmonary disease) Code(s): J44.9 - CHRONIC OBSTRUCTIVE PULMONARY DISEASE, UNSPECIFIED (4) Chronic respiratory failure with hypoxia Code(s): J96.11 - CHRONIC RESPIRATORY FAILURE WITH HYPOXIA (5) History of aortic aneurysm repair Code(s): Z98.890 - OTHER SPECIFIED POSTPROCEDURAL STATES; Z86.79 - PERSONAL HISTORY OF OTHER DISEASES OF THE CIRCULATORY SYSTEM (6) Afib Code(s): I48.91 - UNSPECIFIED ATRIAL FIBRILLATION (7) CAD (coronary artery disease) Code(s): I25.10 - ATHSCL HEART DISEASE OF [place] CORONARY ARTERY W/O ANG PCTRS (8) History of permanent cardiac pacemaker placement Code(s): Z95.0 - PRESENCE OF CARDIAC PACEMAKER (9) Hx of CABG Code(s): Z95.1 - PRESENCE OF AORTOCORONARY BYPASS GRAFT (10) Hyperlipidemia Code(s): E78.5 - HYPERLIPIDEMIA, UNSPECIFIED Qualifiers: (11) Stented coronary artery Code(s): Z95.5 - PRESENCE OF CORONARY ANGIOPLASTY IMPLANT AND GRAFT (12) Acute kidney injury Code(s): N17.9 - ACUTE KIDNEY FAILURE, UNSPECIFIED Assessment/Plan IMP COPD EXACERBATION CHRONIC HYPOXEMIC RESPIRATORY FAILURE URI ASHD S/P CABG,S/P STENTS CHF AFIB S/P PPM CP ACUTE KIDNEY INJURY S/P CVA HTN S/P AAA REPAIR PLAN IV STEROIDS INHALED BRONCHODILATORS BIPAP O2 ANTIBIOTICS MONITOR LYTES,RENAL FUNCTION AC NITRATES DR JEFFERSON Problem List - Problems (1) COPD exacerbation Code(s): J44.1 - CHRONIC OBSTRUCTIVE PULMONARY DISEASE W (ACUTE) EXACERBATION (2) Azotemia Code(s): R79.89 - OTHER SPECIFIED ABNORMAL FINDINGS OF BLOOD CHEMISTRY (3) COPD (chronic obstructive pulmonary disease) Code(s): J44.9 - CHRONIC OBSTRUCTIVE PULMONARY DISEASE, UNSPECIFIED (4) Chronic respiratory failure with hypoxia Code(s): J96.11 - CHRONIC RESPIRATORY FAILURE WITH HYPOXIA (5) History of aortic aneurysm repair Code(s): Z98.890 - OTHER SPECIFIED POSTPROCEDURAL STATES; Z86.79 - PERSONAL HISTORY OF OTHER DISEASES OF THE CIRCULATORY SYSTEM (6) Afib Code(s): I48.91 - UNSPECIFIED ATRIAL FIBRILLATION (7) CAD (coronary artery disease) Code(s): I25.10 - ATHSCL HEART DISEASE OF [place] CORONARY ARTERY W/O ANG PCTRS (8) History of permanent cardiac pacemaker placement Code(s): Z95.0 - PRESENCE OF CARDIAC PACEMAKER (9) Hx of CABG Code(s): Z95.1 - PRESENCE OF AORTOCORONARY BYPASS GRAFT (10) Hyperlipidemia Code(s): E78.5 - HYPERLIPIDEMIA, UNSPECIFIED Qualifiers: (11) Stented coronary artery Code(s): Z95.5 - PRESENCE OF CORONARY ANGIOPLASTY IMPLANT AND GRAFT (12) Acute kidney injury Code(s): N17.9 - ACUTE KIDNEY FAILURE, UNSPECIFIED
[2017-03-31] MEDS: FERROUS SO4 325 MG TABLET (FP) PO SCH (10:42)
[2017-03-31] MEDS: ISOSORBIDE MONONITRATE 30 MG TAB.SR.24H (FP) PO SCH (10:42)
[2017-03-31] MEDS: METOPROLOL SUCCINATE 50 MG TAB.SR.24H (FP) PO SCH (10:43)
[2017-03-31] MEDS: LISINOPRIL 10 MG TABLET (FP) PO SCH (10:43)
--- NOTE | 2017-03-31 10:49 | PN ---
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 Pt now presented to the ER w/SOB for the past 5 days. Pt now complains of productive cough w/ yellowish sputum production. Pt c/o fever although never took his temperature. Pt denies any palpitations, chest pain, nausea, vomiting and no wheezing. CXR done in the ER did not show any acute pathology. Rapid Response called last night. patient was in respiratory distress on BIPAP. Patient was having chest pain to the left side . He was unable to speak in full sentences and cannot give further information. pt given steroids and improved---this am pt feels better no cp - Current Medication List Current Medications: Active Medications Albuterol Sulfate (Ventolin 0.083% Nebulizer Soln -) 1 amp NEB Q4H PRN PRN Reason: SHORT OF BREATH/WHEEZING Albuterol/Ipratropium (Duoneb -) 1 amp NEB QIDR [facility] Last Admin: 03/31/17 07:25 Dose: 1 amp Atorvastatin Calcium (Lipitor -) 10 mg PO MoWeFr@2200 [facility] Last Admin: 03/29/17 21:56 Dose: 10 mg Budesonide/Formoterol Fumarate (Symbicort 80/4.5mcg -) 2 puff IH BID [facility] Last Admin: 03/30/17 21:34 Dose: 2 puff Duloxetine HCl (Cymbalta -) 60 mg PO DAILY [facility] Last Admin: 03/30/17 09:59 Dose: 60 mg Ferrous Sulfate (Feosol -) 325 mg PO DAILY [facility] Last Admin: 03/30/17 09:59 Dose: 325 mg Furosemide (Lasix -) 20 mg PO DAILY [facility] Last Admin: 03/30/17 09:59 Dose: 20 mg Levofloxacin (Levaquin 500 Mg Premixed Ivpb -) 500 mg in 100 mls @ 100 mls/hr IVPB DAILY [facility] Last Admin: 03/30/17 09:58 Dose: 100 mls/hr Isosorbide Mononitrate (Imdur -) 30 mg PO DAILY [facility] Lisinopril (Prinivil) 10 mg PO DAILY [facility] Last Admin: 03/30/17 09:59 Dose: 10 mg Methylprednisolone Sodium Succinate (Solu-Medrol -) 60 mg IVPUSH Q6H-IV [facility] Last Admin: 03/31/17 03:08 Dose: 60 mg Metoprolol Succinate (Toprol Xl -) 50 mg PO DAILY [facility] Last Admin: 03/30/17 09:58 Dose: 50 mg Pregabalin (Lyrica -) 100 mg PO BID [facility] Last Admin: 03/30/17 21:34 Dose: 100 mg Rivaroxaban (Xarelto -) 20 mg PO DAILY@1800 [facility] Last Admin: 03/30/17 17:10 Dose: 20 mg Tamsulosin HCl (Flomax -) 0.4 mg PO HS [facility] Last Admin: 03/30/17 21:34 Dose: 0.4 mg - Objective Vital Signs: Vital Signs Temperature 97.3 F L 03/31/17 06:00 Pulse Rate 93 H 03/31/17 06:00 Respiratory Rate 20 03/31/17 06:00 Blood Pressure 133/83 03/31/17 06:00 O2 Sat by Pulse Oximetry (%) 93 L 03/31/17 03:30 Cardiovascular: Yes: S1, S2 Respiratory: Yes: Diminished, On BiPap, Rhonchi Gastrointestinal: Yes: Normal Bowel Sounds, Soft Labs: CBC, BMP 03/29/17 07:20 03/30/17 20:50 Problem List - Problems (1) COPD exacerbation Assessment/Plan: iv steroids nebs bipap pulm on case Code(s): J44.1 - CHRONIC OBSTRUCTIVE PULMONARY DISEASE W (ACUTE) EXACERBATION (2) Chest pain Assessment/Plan: pt with h/o cad--on dur josé luis [facility] cardio Code(s): R07.9 - CHEST PAIN, UNSPECIFIED Qualifiers: Chest pain type: unspecified Qualified Code(s): R07.9 - Chest pain, unspecified (3) Afib Assessment/Plan: on xarelto on b-jake rate controlled Code(s): I48.91 - UNSPECIFIED ATRIAL FIBRILLATION
[2017-03-31 13:01] LABS: ALBUMIN 3.5 g/dl (3.4-5.0); ANION GAP 7 (8-16); BILIRUBIN,TOTAL 0.4 mg/dL (0.2-1.0); BLOOD UREA NITROGEN 51 mg/dL (7-18); CALCIUM 8.6 mg/dL (8.5-10.1); CHLORIDE 104 mmol/L (98-107); CO2 28 mmol/L (21-32); CREATININE 1.5 mg/dL (0.7-1.3); GLUCOSE,RANDOM 92 mg/dL (74-106); POTASSIUM 4.3 mmol/L (3.5-5.1); SGOT/AST 22 U/L (15-37); SGPT/ALT 21 U/L (12-78); SODIUM 139 mmol/L (136-145); TOT PROT 7.5 g/dl (6.4-8.2)
[2017-03-31 13:03] LABS: ALK PHOS 51 U/L (45-117)
[2017-03-31] MEDS: RIVAROXABAN 20 MG TABLET PO SCH (17:30)
[2017-03-31] MEDS: TAMSULOSIN HCL 0.4 MG CAP.ER.24H (FP) PO SCH (21:40)
[2017-04-01] MEDS: methylPREDNISolone NA SUCC 40 MG/1 ML VIAL IVPUSH SCH ×2 (03:49→09:21)
[2017-04-01] MEDS: ALBUTEROL SO4 2.5/IPRATROPIUM 0.5 INH SOL 3 ML VIAL.NEB. NEB SCH ×3 (06:53→16:45)
[2017-04-01 07:39] LABS: HEMATOCRIT 44.1 % (35.4-49); HEMOGLOBIN 14.2 GM/dL (11.7-16.9); LYMPH % 5.1 % (8-40); MCH 28.1 pg (25.7-33.7); MCHC 32.1 g/dl (32.0-35.9); MEAN CELL VOLUME 87.3 fl (80-96); MEAN PLT VOLUME 9.4 fl (7.5-11.1); MONO % 3.7 % (3.8-10.2); NEUT % 91.2 % (42.8-82.8); PLATELET COUNT 193 K/MM3 (134-434); RBC 5.05 M/mm3 (4.00-5.60); RDW 15.7 % (11.9-15.9); WHITE BLOOD COUNT 7.8 K/mm3 (4.0-10.0)
[2017-04-01 08:04] LABS: ALBUMIN 3.1 g/dl (3.4-5.0); ANION GAP 10 (8-16); BLOOD UREA NITROGEN 51 mg/dL (7-18); CALCIUM 8.6 mg/dL (8.5-10.1); CHLORIDE 104 mmol/L (98-107); CO2 26 mmol/L (21-32); CREATININE 1.6 mg/dL (0.7-1.3); GLUCOSE,RANDOM 111 mg/dL (74-106); POTASSIUM 4.4 mmol/L (3.5-5.1); SGOT/AST 18 U/L (15-37); SGPT/ALT 21 U/L (12-78); SODIUM 140 mmol/L (136-145)
[2017-04-01 08:05] LABS: ALK PHOS 44 U/L (45-117); BILIRUBIN,TOTAL 0.4 mg/dL (0.2-1.0); TOT PROT 6.8 g/dl (6.4-8.2)
[2017-04-01] MEDS ORDERED: PT OWN MED DRAWER 7, Y5N ONE ×3 (09:07→21:29)
[2017-04-01] MEDS: PREGABALIN 50 MG CAPSULE PO SCH ×2 (09:22→21:41)
[2017-04-01] MEDS: LEVOFLOXACIN 500 MG IVPB 500 MG/100 ML BAG IVPB SCH (09:22)
[2017-04-01] MEDS: DULoxetine HCL 30 MG CAPSULE.DR (FP) PO SCH (09:23)
[2017-04-01] MEDS: METOPROLOL SUCCINATE 50 MG TAB.SR.24H (FP) PO SCH (09:23)
[2017-04-01] MEDS: FERROUS SO4 325 MG TABLET (FP) PO SCH (09:23)
[2017-04-01] MEDS: LISINOPRIL 10 MG TABLET (FP) PO SCH (09:23)
[2017-04-01] MEDS: ISOSORBIDE MONONITRATE 30 MG TAB.SR.24H (FP) PO SCH (09:24)
[2017-04-01] MEDS: FUROSEMIDE 20 MG TABLET (FP) PO SCH (09:24)
--- NOTE | 2017-04-01 11:32 | PN ---
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, Physician Chief Complaint: patient seen he says his breathing is little better today - Current Medication List Current Medications: Active Medications Albuterol Sulfate (Ventolin 0.083% Nebulizer Soln -) 1 amp NEB Q4H PRN PRN Reason: SHORT OF BREATH/WHEEZING Albuterol/Ipratropium (Duoneb -) 1 amp NEB QIDR [facility] Last Admin: 04/01/17 11:10 Dose: 1 amp Atorvastatin Calcium (Lipitor -) 10 mg PO MoWeFr@2200 [facility] Last Admin: 03/29/17 21:56 Dose: 10 mg Budesonide/Formoterol Fumarate (Symbicort 80/4.5mcg -) 2 puff IH BID [facility] Last Admin: 03/31/17 22:50 Dose: 2 puff Duloxetine HCl (Cymbalta -) 60 mg PO DAILY [facility] Last Admin: 04/01/17 09:23 Dose: 60 mg Ferrous Sulfate (Feosol -) 325 mg PO DAILY [facility] Last Admin: 04/01/17 09:23 Dose: 325 mg Furosemide (Lasix -) 20 mg PO DAILY [facility] Last Admin: 04/01/17 09:24 Dose: 20 mg Levofloxacin (Levaquin 500 Mg Premixed Ivpb -) 500 mg in 100 mls @ 100 mls/hr IVPB DAILY [facility] Last Admin: 04/01/17 09:22 Dose: 100 mls/hr Isosorbide Mononitrate (Imdur -) 30 mg PO DAILY [facility] Last Admin: 04/01/17 09:24 Dose: 30 mg Lisinopril (Prinivil) 10 mg PO DAILY [facility] Last Admin: 04/01/17 09:23 Dose: 10 mg Methylprednisolone Sodium Succinate (Solu-Medrol -) 60 mg IVPUSH Q6H-IV [facility] Last Admin: 04/01/17 09:21 Dose: 60 mg Metoprolol Succinate (Toprol Xl -) 50 mg PO DAILY [facility] Last Admin: 04/01/17 09:23 Dose: 50 mg Pregabalin (Lyrica -) 100 mg PO BID [facility] Last Admin: 04/01/17 09:22 Dose: 100 mg Rivaroxaban (Xarelto -) 20 mg PO DAILY@1800 [facility] Last Admin: 03/31/17 17:30 Dose: 20 mg Tamsulosin HCl (Flomax -) 0.4 mg PO HS [facility] Last Admin: 03/31/17 21:40 Dose: 0.4 mg - Objective Vital Signs: Vital Signs Temperature 97.8 F 04/01/17 05:42 Pulse Rate 81 04/01/17 10:20 Respiratory Rate 20 04/01/17 05:42 Blood Pressure 117/82 04/01/17 05:42 O2 Sat by Pulse Oximetry (%) 90 L 04/01/17 10:20 Constitutional: Yes: Calm Cardiovascular: Yes: Pulse Irregular, S1, S2 Respiratory: Yes: Diminished, On Nasal O2 Gastrointestinal: Yes: Normal Bowel Sounds, Soft Neurological: Yes: Alert Labs: CBC, BMP 04/01/17 07:00 04/01/17 07:00 Problem List - Problems (1) COPD exacerbation Assessment/Plan: iv steroids neubulizer oxygen abx wbc now normal Code(s): J44.1 - CHRONIC OBSTRUCTIVE PULMONARY DISEASE W (ACUTE) EXACERBATION (2) Chest pain Assessment/Plan: started on imdur on BB and statin conservative treatment Code(s): R07.9 - CHEST PAIN, UNSPECIFIED Qualifiers: Chest pain type: unspecified Qualified Code(s): R07.9 - Chest pain, unspecified (3) Afib Assessment/Plan: BB and xarelto Code(s): I48.91 - UNSPECIFIED ATRIAL FIBRILLATION (4) Acute kidney injury Assessment/Plan: renal consult Code(s): N17.9 - ACUTE KIDNEY FAILURE, UNSPECIFIED
--- NOTE | 2017-04-01 11:32 | PN ---
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, Physician History of Present Illness: PULMONARY ALERT,FEELING BETTER ON NASAL O2 ,O2 SAT 92% - Current Medication List Current Medications: Active Medications Albuterol Sulfate (Ventolin 0.083% Nebulizer Soln -) 1 amp NEB Q4H PRN PRN Reason: SHORT OF BREATH/WHEEZING Albuterol/Ipratropium (Duoneb -) 1 amp NEB QIDR [facility] Last Admin: 04/01/17 11:10 Dose: 1 amp Atorvastatin Calcium (Lipitor -) 10 mg PO MoWeFr@2200 [facility] Last Admin: 03/29/17 21:56 Dose: 10 mg Budesonide/Formoterol Fumarate (Symbicort 80/4.5mcg -) 2 puff IH BID [facility] Last Admin: 03/31/17 22:50 Dose: 2 puff Duloxetine HCl (Cymbalta -) 60 mg PO DAILY [facility] Last Admin: 04/01/17 09:23 Dose: 60 mg Ferrous Sulfate (Feosol -) 325 mg PO DAILY [facility] Last Admin: 04/01/17 09:23 Dose: 325 mg Furosemide (Lasix -) 20 mg PO DAILY [facility] Last Admin: 04/01/17 09:24 Dose: 20 mg Levofloxacin (Levaquin 500 Mg Premixed Ivpb -) 500 mg in 100 mls @ 100 mls/hr IVPB DAILY [facility] Last Admin: 04/01/17 09:22 Dose: 100 mls/hr Isosorbide Mononitrate (Imdur -) 30 mg PO DAILY [facility] Last Admin: 04/01/17 09:24 Dose: 30 mg Lisinopril (Prinivil) 10 mg PO DAILY [facility] Last Admin: 04/01/17 09:23 Dose: 10 mg Methylprednisolone Sodium Succinate (Solu-Medrol -) 60 mg IVPUSH Q6H-IV [facility] Last Admin: 04/01/17 09:21 Dose: 60 mg Metoprolol Succinate (Toprol Xl -) 50 mg PO DAILY [facility] Last Admin: 04/01/17 09:23 Dose: 50 mg Pregabalin (Lyrica -) 100 mg PO BID [facility] Last Admin: 04/01/17 09:22 Dose: 100 mg Rivaroxaban (Xarelto -) 20 mg PO DAILY@1800 [facility] Last Admin: 03/31/17 17:30 Dose: 20 mg Tamsulosin HCl (Flomax -) 0.4 mg PO HS [facility] Last Admin: 03/31/17 21:40 Dose: 0.4 mg - Objective Vital Signs: Vital Signs Temperature 97.8 F 04/01/17 05:42 Pulse Rate 81 04/01/17 10:20 Respiratory Rate 20 04/01/17 05:42 Blood Pressure 117/82 04/01/17 05:42 O2 Sat by Pulse Oximetry (%) 90 L 04/01/17 10:20 Constitutional: Yes: Well Nourished, Calm Eyes: Yes: WNL HENT: Yes: WNL Neck: Yes: WNL Cardiovascular: Yes: Pulse Irregular, S1, S2 Respiratory: Yes: Wheezes (FEW SACTTERED WHEEZES) Gastrointestinal: Yes: Normal Bowel Sounds, Soft Extremities: Yes: WNL Edema: No Labs: CBC, BMP 04/01/17 07:00 04/01/17 07:00 Problem List - Problems (1) COPD exacerbation Code(s): J44.1 - CHRONIC OBSTRUCTIVE PULMONARY DISEASE W (ACUTE) EXACERBATION (2) Azotemia Code(s): R79.89 - OTHER SPECIFIED ABNORMAL FINDINGS OF BLOOD CHEMISTRY (3) COPD (chronic obstructive pulmonary disease) Code(s): J44.9 - CHRONIC OBSTRUCTIVE PULMONARY DISEASE, UNSPECIFIED (4) Chronic respiratory failure with hypoxia Code(s): J96.11 - CHRONIC RESPIRATORY FAILURE WITH HYPOXIA (5) History of aortic aneurysm repair Code(s): Z98.890 - OTHER SPECIFIED POSTPROCEDURAL STATES; Z86.79 - PERSONAL HISTORY OF OTHER DISEASES OF THE CIRCULATORY SYSTEM (6) Afib Code(s): I48.91 - UNSPECIFIED ATRIAL FIBRILLATION (7) CAD (coronary artery disease) Code(s): I25.10 - ATHSCL HEART DISEASE OF [place] CORONARY ARTERY W/O ANG PCTRS (8) History of permanent cardiac pacemaker placement Code(s): Z95.0 - PRESENCE OF CARDIAC PACEMAKER (9) Hx of CABG Code(s): Z95.1 - PRESENCE OF AORTOCORONARY BYPASS GRAFT (10) Hyperlipidemia Code(s): E78.5 - HYPERLIPIDEMIA, UNSPECIFIED Qualifiers: (11) Stented coronary artery Code(s): Z95.5 - PRESENCE OF CORONARY ANGIOPLASTY IMPLANT AND GRAFT (12) Acute kidney injury Code(s): N17.9 - ACUTE KIDNEY FAILURE, UNSPECIFIED Assessment/Plan IMP COPD EXACERBATION CHRONIC HYPOXEMIC RESPIRATORY FAILURE URI ASHD S/P CABG,S/P STENTS CHF AFIB S/P PPM CP ACUTE KIDNEY INJURY S/P CVA HTN S/P AAA REPAIR PLAN ISTEROID TAPER INHALED BRONCHODILATORS BIPAP O2 ANTIBIOTICS MONITOR LYTES,RENAL FUNCTION AC NITRATES DR JEFFERSON Problem List - Problems (1) COPD exacerbation Code(s): J44.1 - CHRONIC OBSTRUCTIVE PULMONARY DISEASE W (ACUTE) EXACERBATION (2) Azotemia Code(s): R79.89 - OTHER SPECIFIED ABNORMAL FINDINGS OF BLOOD CHEMISTRY (3) COPD (chronic obstructive pulmonary disease) Code(s): J44.9 - CHRONIC OBSTRUCTIVE PULMONARY DISEASE, UNSPECIFIED (4) Chronic respiratory failure with hypoxia Code(s): J96.11 - CHRONIC RESPIRATORY FAILURE WITH HYPOXIA (5) History of aortic aneurysm repair Code(s): Z98.890 - OTHER SPECIFIED POSTPROCEDURAL STATES; Z86.79 - PERSONAL HISTORY OF OTHER DISEASES OF THE CIRCULATORY SYSTEM (6) Afib Code(s): I48.91 - UNSPECIFIED ATRIAL FIBRILLATION (7) CAD (coronary artery disease) Code(s): I25.10 - ATHSCL HEART DISEASE OF [place] CORONARY ARTERY W/O ANG PCTRS (8) History of permanent cardiac pacemaker placement Code(s): Z95.0 - PRESENCE OF CARDIAC PACEMAKER (9) Hx of CABG Code(s): Z95.1 - PRESENCE OF AORTOCORONARY BYPASS GRAFT (10) Hyperlipidemia Code(s): E78.5 - HYPERLIPIDEMIA, UNSPECIFIED Qualifiers: (11) Stented coronary artery Code(s): Z95.5 - PRESENCE OF CORONARY ANGIOPLASTY IMPLANT AND GRAFT (12) Acute kidney injury Code(s): N17.9 - ACUTE KIDNEY FAILURE, UNSPECIFIED
--- NOTE | 2017-04-01 11:37 | PN ---
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, Physician History of Present Illness: seen and examined today in nad. no overnight events. no new complaints. - Current Medication List Current Medications: Active Medications Albuterol Sulfate (Ventolin 0.083% Nebulizer Soln -) 1 amp NEB Q4H PRN PRN Reason: SHORT OF BREATH/WHEEZING Albuterol/Ipratropium (Duoneb -) 1 amp NEB QIDR [facility] Last Admin: 04/01/17 11:10 Dose: 1 amp Atorvastatin Calcium (Lipitor -) 10 mg PO MoWeFr@2200 [facility] Last Admin: 03/29/17 21:56 Dose: 10 mg Budesonide/Formoterol Fumarate (Symbicort 80/4.5mcg -) 2 puff IH BID [facility] Last Admin: 03/31/17 22:50 Dose: 2 puff Duloxetine HCl (Cymbalta -) 60 mg PO DAILY [facility] Last Admin: 04/01/17 09:23 Dose: 60 mg Ferrous Sulfate (Feosol -) 325 mg PO DAILY [facility] Last Admin: 04/01/17 09:23 Dose: 325 mg Furosemide (Lasix -) 20 mg PO DAILY [facility] Last Admin: 04/01/17 09:24 Dose: 20 mg Levofloxacin (Levaquin 500 Mg Premixed Ivpb -) 500 mg in 100 mls @ 100 mls/hr IVPB DAILY [facility] Last Admin: 04/01/17 09:22 Dose: 100 mls/hr Isosorbide Mononitrate (Imdur -) 30 mg PO DAILY [facility] Last Admin: 04/01/17 09:24 Dose: 30 mg Lisinopril (Prinivil) 10 mg PO DAILY [facility] Last Admin: 04/01/17 09:23 Dose: 10 mg Methylprednisolone Sodium Succinate (Solu-Medrol -) 60 mg IVPUSH Q8H-IV [facility] Metoprolol Succinate (Toprol Xl -) 50 mg PO DAILY [facility] Last Admin: 04/01/17 09:23 Dose: 50 mg Pregabalin (Lyrica -) 100 mg PO BID [facility] Last Admin: 04/01/17 09:22 Dose: 100 mg Rivaroxaban (Xarelto -) 20 mg PO DAILY@1800 [facility] Last Admin: 03/31/17 17:30 Dose: 20 mg Tamsulosin HCl (Flomax -) 0.4 mg PO HS [facility] Last Admin: 03/31/17 21:40 Dose: 0.4 mg - Objective Vital Signs: Vital Signs Temperature 97.8 F 04/01/17 05:42 Pulse Rate 81 04/01/17 10:20 Respiratory Rate 20 04/01/17 05:42 Blood Pressure 117/82 04/01/17 05:42 O2 Sat by Pulse Oximetry (%) 90 L 04/01/17 10:20 Constitutional: Yes: No Distress, Calm Eyes: Yes: Conjunctiva Clear, EOM Intact, PERRL HENT: Yes: Atraumatic, Normocephalic Neck: Yes: Supple, Trachea Midline Cardiovascular: Yes: Pulse Irregular, Murmur, S1, S2. No: Regular Rate and Rhythm, Bradycardia, Tachycardia, Bruit, JVD, Gallop, Rub, S3, S4, Varicosities , Other Respiratory: Yes: Regular, Diminished, On Nasal O2. No: Rales, Rhonchi, SOB, Wheezes Gastrointestinal: Yes: Normal Bowel Sounds, Soft. No: Distention, Tenderness Edema: No Peripheral Pulses WNL: Yes Neurological: Yes: Alert, Oriented Psychiatric: Yes: Alert, Oriented Labs: CBC, BMP 04/01/17 07:00 04/01/17 07:00 - ....Imaging Chest X-ray: Report Reviewed, Image Reviewed EKG: Report Reviewed, Image Reviewed Other: Report Reviewed, Image Reviewed (tele-Vpaced, Noel) Assessment/Plan 76 year old man with a history of HTN, HLD, Afib, CAD s/p CABG s/p stents, PPM, ICM refused ICD in the past, PAD, Thoracic aortic aneursym, CVA with residual L sided weakness, a/w sob, acute exacerbation of COPD. Plan: 1. SOB-AECOPD:improving -CPAP and IV steroid taper as per pulmonary 2. Chronic systolic CHF with ICM-currently euvolemic -Cont Lasix, Toprol and BRAULIO-I 3.AF:HR controlled -cont Toprol 50mg daily -Cont Xarelto 4. Angina: chronic -Patient has refused any further interventions, and thus has been treated medically -started on Imdur 30mg daily -ok to dc tele at this time as no sig events recorded
--- NOTE | 2017-04-01 12:14 | EKG ---
Test Reason : Blood Pressure : / mmHG Vent. Rate : 077 BPM Atrial Rate : 077 BPM P-R Int : 144 ms QRS Dur : 124 ms QT Int : 412 ms P-R-T Axes : 071 266 096 degrees QTc Int : 466 ms Atrial-sensed ventricular-paced rhythm WITH OCCASIONAL PREMATURE VENTRICULAR COMPLEXES ABNORMAL ECG WHEN COMPARED WITH ECG OF 30-MAR-2017 20:51, PREMATURE VENTRICULAR COMPLEXES ARE NOW PRESENT VENT. RATE HAS INCREASED BY 10 BPM Confirmed by SAADIA PERALTA MD ([id number]) on 04/01/2017 12:13:44 PM Referred By: Confirmed By:SAADIA PERALTA MD
--- NOTE | 2017-04-01 12:40 | EKG ---
Test Reason : Blood Pressure : / mmHG Vent. Rate : 067 BPM Atrial Rate : 067 BPM P-R Int : 136 ms QRS Dur : 118 ms QT Int : 432 ms P-R-T Axes : 081 264 119 degrees QTc Int : 456 ms Atrial-sensed ventricular-paced rhythm ABNORMAL ECG WHEN COMPARED WITH ECG OF 29-MAR-2017 06:44, VENT. RATE HAS DECREASED BY 22 BPM Confirmed by SAADIA PERALTA MD ([id number]) on 04/01/2017 12:40:01 PM Referred By: Confirmed By:SAADIA PERALTA MD
[2017-04-01] MEDS: BUDESONIDE/FORMETEROL FUMARATE 80/4.5 mcg INHALER IH SCH ×2 (14:09→21:42)
[2017-04-01] MEDS: methylPREDNISolone NA SUCC 125 MG/2 ML VIAL IVPUSH SCH (17:10)
[2017-04-01] MEDS: RIVAROXABAN 20 MG TABLET PO SCH (17:11)
--- NOTE | 2017-04-01 17:26 | CONSULT ---
Consult Consult Specialty:: Nephrology Reason for Consultation:: CKD - History of Present Illness Chief Complaint: shortness of breath History of Present Illness: Pt is a 76 year old male with pmhx of COPD, HTN, chol, CAD, CABG, AAA, and CVA who presents to the ER with shortness of breath. He also complains of cough with yellow sputum. He wound found to have elevated creatinine and I was called to evaluate him. He denies dysuria or hematuria. He feels that his breathing is improved. He has not followed with me since his last hospitalization. He did complain of fevers and chills. He may have been taking nsaids as well. He was taking over the counter meds that he does not recall. 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 Medical History [employer]: Yes: CVA, Seizure Cardio/Vascular: Yes: AFIB, Aneurysm, CAD, CHF, HTN, Hyperlipdemia, Murmur, Other (peripheral artery disease) Pulmonary: Yes: COPD Renal/: Yes: BPH - Past Surgical History Past Surgical History: Yes: AAA Repair, Bypass (lower ext), Permanent Pacemaker , Stent (cardiac x 2) - Alcohol/Substance Use Hx Alcohol Use: No History of Substance Use: reports: None - Smoking History Smoking history: Unknown if ever smoked Have you smoked in the past 12 months: No If you are a former smoker, when did you quit?: 2006 - Social History Usual Living Arrangement: With Spouse ADL: Family Assistance History of Recent Travel: No Home Medications - Allergies Allergies/Adverse Reactions: Allergies Allergy/AdvReac Type Severity Reaction Status Date / Time prednisone AdvReac Intermediate "too wired" Verified 03/28/17 06:57 - Home Medications Home Medications: Ambulatory Orders Budesonide/Formeterol Fumarate [SYMBICORT 160/4.5mcg -] 2 inh PO BID 04/22/16 Ferrous Sulfate 325 mg PO DAILY 04/22/16 Metoprolol Succinate [Toprol Xl] 50 mg PO DAILY 04/22/16 Pregabalin [Lyrica] 100 mg PO BID 04/22/16 Tamsulosin HCl [Flomax] 0.4 mg PO HS 04/22/16 Lovastatin 40 mg PO .MWF NIGHTLY 07/31/16 Mineral Oil/Pet Hy-Phl [Aquaphor -] 1 applic TP BID PRN 07/31/16 Lisinopril [Prinivil] 10 mg PO DAILY tablet 08/02/16 Albuterol 0.083% Nebulizer Suki [Ventolin 0.083% Nebulizer Soln -] 1 amp NEB Q8H 09/21/16 Duloxetine HCl [Cymbalta] 60 mg PO DAILY 09/28/16 Furosemide [Lasix -] 20 mg PO DAILY 12/04/16 Fluocinonide 0.05% Cream [Lidex 0.05% Cream -] 1 applic TP DAILY #120 tube 01/11 Metoprolol Succinate [Toprol XL -] 25 mg PO DAILY #30 tab.sr.24h 01/11/17 Nystatin/Triamcinolone Top Cr [Mycolog II -] 3 applic TP BID #120 applic Family Disease History - Family Disease History Family History: Denies Review of Systems - Review of Systems Constitutional: reports: Chills, Fever, Malaise Eyes: reports: No Symptoms HENT: reports: No Symptoms Neck: reports: No Symptoms Cardiovascular: reports: Shortness of Breath Respiratory: reports: Cough, SOB, SOB on Exertion Genitourinary: reports: No Symptoms Musculoskeletal: reports: No Symptoms Neurological: reports: No Symptoms Endocrine: reports: No Symptoms Hematology/Lymphatic: reports: No Symptoms Psychiatric: reports: No Symptoms Physical Exam Vital Signs: Vital Signs Temperature 98.3 F 04/01/17 15:00 Pulse Rate 67 04/01/17 15:00 Respiratory Rate 20 04/01/17 15:00 Blood Pressure 149/96 04/01/17 15:00 O2 Sat by Pulse Oximetry (%) 90 L 04/01/17 10:20 Constitutional: Yes: Calm Eyes: Yes: Conjunctiva Clear HENT: Yes: Atraumatic Neck: Yes: Supple Cardiovascular: Yes: S1, S2 Respiratory: Yes: On Nasal O2, Wheezes Gastrointestinal: Yes: Soft Renal/: Yes: WNL Musculoskeletal: Yes: WNL Edema: No Neurological: Yes: Oriented Psychiatric: Yes: Oriented Labs: CBC, BMP 04/01/17 07:00 04/01/17 07:00 Laboratory Tests 01/10/17 01/11/17 03/28/17 15:05 06:45 07:50 Creatinine 1.4 H 1.3 1.4 H 03/30/17 03/31/1718 20:50 12:12 07:00 Creatinine 1.5 H 1.5 H 1.6 H Imaging - Results Chest X-ray: Report Reviewed Problem List - Problems (1) CKD (chronic kidney disease) Code(s): N18.9 - CHRONIC KIDNEY DISEASE, UNSPECIFIED (2) COPD exacerbation Code(s): J44.1 - CHRONIC OBSTRUCTIVE PULMONARY DISEASE W (ACUTE) EXACERBATION (3) Abdominal pain Code(s): R10.9 - UNSPECIFIED ABDOMINAL PAIN Qualifiers: Abdominal location: left lower quadrant Qualified Code(s): R10.32 - Left lower quadrant pain (4) COPD (chronic obstructive pulmonary disease) Code(s): J44.9 - CHRONIC OBSTRUCTIVE PULMONARY DISEASE, UNSPECIFIED Assessment/Plan Current Medications Generic Name Dose Route Start Last Admin Trade Name Freq PRN Reason Stop Dose Admin Albuterol Sulfate 1 amp 03/30/17 21:51 Ventolin 0.083% Nebulizer Soln - NEB Q4H PRN SHORT OF BREATH/WHEEZING Albuterol/Ipratropium 1 amp 03/31/17 00:00 04/01/17 11:10 Duoneb - NEB 1 amp QIDR [facility] Administration Atorvastatin Calcium 10 mg 03/29/17 22:00 03/29/17 21:56 Lipitor - PO 10 mg MoWeFr@2200 [facility] Administration Budesonide/Formoterol Fumarate 2 puff 03/28/17 22:00 04/01/17 14:09 Symbicort 80/4.5mcg - IH 2 puff BID [facility] Administration Duloxetine HCl 60 mg 03/29/17 10:00 04/01/17 09:23 Cymbalta - PO 60 mg DAILY [facility] Administration Ferrous Sulfate 325 mg 03/29/17 10:00 04/01/17 09:23 Feosol - PO 325 mg DAILY [facility] Administration Furosemide 20 mg 03/29/17 10:00 04/01/17 09:24 Lasix - PO 20 mg DAILY [facility] Administration Levofloxacin 500 mg in 100 mls @ 100 mls/hr 03/29/17 10:00 04/01/17 09:22 Levaquin 500 Mg Premixed Ivpb - IVPB 100 mls/hr DAILY [facility] Administration Isosorbide Mononitrate 30 mg 03/31/17 10:00 04/01/17 09:24 Imdur - PO 30 mg DAILY [facility] Administration Lisinopril 10 mg 03/29/17 10:00 04/01/17 09:23 Prinivil PO 10 mg DAILY [facility] Administration Methylprednisolone Sodium Succinate 60 mg 04/01/17 18:00 04/01/17 17:10 Solu-Medrol - IVPUSH 60 mg Q8H-IV [facility] Administration Metoprolol Succinate 50 mg 03/29/17 10:00 04/01/17 09:23 Toprol Xl - PO 50 mg DAILY [facility] Administration Pregabalin 100 mg 03/29/17 21:29 04/01/17 09:22 Lyrica - PO 100 mg BID [facility] Administration Rivaroxaban 20 mg 03/29/17 18:00 04/01/17 17:11 Xarelto - PO 20 mg DAILY@1800 [facility] Administration Tamsulosin HCl 0.4 mg 03/29/17 22:00 03/31/17 21:40 Flomax - PO 0.4 mg HS [facility] Administration Impression 1. CKD 2. shortness of breath 3. AAA 4. hx CVA 5. a-fib 6. HTN 7. insomnia 8. COPD on home oxygen 9. CAD 10. BPH Plan - check UA - repeat labs in am - agree with steroids - ckd workup can be done as outpt - will comment more on etiology of kidneys disease after reviewing UA
[2017-04-01] MEDS: TAMSULOSIN HCL 0.4 MG CAP.ER.24H (FP) PO SCH (21:41)
[2017-04-01] MEDS: ATORVASTATIN CA 10 MG TABLET (FP) PO SCH (21:41)
[2017-04-01 22:40] LABS: URINE APPEARANCE CLEAR; URINE BILIRUBIN NEGATIVE (NEGATIVE); URINE BLOOD 1+ (NEGATIVE); URINE COLOR LTYELLOW; URINE GLUCOSE (UA) NEGATIVE (NEGATIVE); URINE KETONE NEGATIVE (NEGATIVE); URINE LEUK ESTERASE NEGATIVE (NEGATIVE); URINE NITRITE NEGATIVE (NEGATIVE); URINE PROTEIN NEGATIVE (NEGATIVE); URINE UROBILINOGEN NEGATIVE mg/dL (0.2-1.0)
[2017-04-01 22:53] LABS: URINE HYALINE CAST 1 /lpf
[2017-04-02] MEDS: ALBUTEROL SO4 2.5/IPRATROPIUM 0.5 INH SOL 3 ML VIAL.NEB. NEB SCH ×5 (00:09→20:30)
[2017-04-02] MEDS: methylPREDNISolone NA SUCC 125 MG/2 ML VIAL IVPUSH SCH (05:48)
[2017-04-02 07:44] LABS: ANION GAP 8 (8-16); BLOOD UREA NITROGEN 43 mg/dL (7-18); CALCIUM 8.4 mg/dL (8.5-10.1); CHLORIDE 106 mmol/L (98-107); CO2 24 mmol/L (21-32); CREATININE 1.3 mg/dL (0.7-1.3); GLUCOSE,RANDOM 114 mg/dL (74-106); POTASSIUM 4.2 mmol/L (3.5-5.1); SODIUM 138 mmol/L (136-145)
--- NOTE | 2017-04-02 08:39 | PN ---
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 Pt now presented to the ER w/SOB for the past 5 days. Pt now complains of productive cough w/ yellowish sputum production. Pt c/o fever although never took his temperature. Pt denies any palpitations, chest pain, nausea, vomiting and no wheezing. CXR done in the ER did not show any acute pathology. Rapid Response called last night. patient was in respiratory distress on BIPAP. Patient was having chest pain to the left side . He was unable to speak in full sentences and cannot give further information. pt given steroids and improved---this am pt feels better no cp - Current Medication List Current Medications: Active Medications Albuterol Sulfate (Ventolin 0.083% Nebulizer Soln -) 1 amp NEB Q4H PRN PRN Reason: SHORT OF BREATH/WHEEZING Albuterol/Ipratropium (Duoneb -) 1 amp NEB QIDR [facility] Last Admin: 04/02/17 06:05 Dose: 1 amp Atorvastatin Calcium (Lipitor -) 10 mg PO MoWeFr@2200 [facility] Last Admin: 04/01/17 21:41 Dose: 10 mg Budesonide/Formoterol Fumarate (Symbicort 80/4.5mcg -) 2 puff IH BID [facility] Last Admin: 04/01/17 21:42 Dose: 2 puff Duloxetine HCl (Cymbalta -) 60 mg PO DAILY [facility] Last Admin: 04/01/17 09:23 Dose: 60 mg Ferrous Sulfate (Feosol -) 325 mg PO DAILY [facility] Last Admin: 04/01/17 09:23 Dose: 325 mg Furosemide (Lasix -) 20 mg PO DAILY [facility] Last Admin: 04/01/17 09:24 Dose: 20 mg Levofloxacin (Levaquin 500 Mg Premixed Ivpb -) 500 mg in 100 mls @ 100 mls/hr IVPB DAILY [facility] Last Admin: 04/01/17 09:22 Dose: 100 mls/hr Isosorbide Mononitrate (Imdur -) 30 mg PO DAILY [facility] Last Admin: 04/01/17 09:24 Dose: 30 mg Lisinopril (Prinivil) 10 mg PO DAILY [facility] Last Admin: 04/01/17 09:23 Dose: 10 mg Methylprednisolone Sodium Succinate (Solu-Medrol -) 60 mg IVPUSH Q8H-IV [facility] Last Admin: 04/02/17 05:48 Dose: 60 mg Metoprolol Succinate (Toprol Xl -) 50 mg PO DAILY [facility] Last Admin: 04/01/17 09:23 Dose: 50 mg Pregabalin (Lyrica -) 100 mg PO BID [facility] Last Admin: 04/01/17 21:41 Dose: 100 mg Rivaroxaban (Xarelto -) 20 mg PO DAILY@1800 [facility] Last Admin: 04/01/17 17:11 Dose: 20 mg Tamsulosin HCl (Flomax -) 0.4 mg PO HS [facility] Last Admin: 04/01/17 21:41 Dose: 0.4 mg - Objective Vital Signs: Vital Signs Temperature 97.8 F 04/02/17 05:42 Pulse Rate 68 04/02/17 05:42 Respiratory Rate 20 04/02/17 05:42 Blood Pressure 150/92 04/02/17 05:42 O2 Sat by Pulse Oximetry (%) 97 04/02/17 06:12 Cardiovascular: Yes: S1, S2 Respiratory: Yes: Regular, CTA Bilaterally Gastrointestinal: Yes: Normal Bowel Sounds, Soft Labs: CBC, BMP 04/01/17 07:00 04/02/17 06:50 Problem List - Problems (1) COPD exacerbation Code(s): J44.1 - CHRONIC OBSTRUCTIVE PULMONARY DISEASE W (ACUTE) EXACERBATION (2) Chest pain Code(s): R07.9 - CHEST PAIN, UNSPECIFIED Qualifiers: Chest pain type: unspecified Qualified Code(s): R07.9 - Chest pain, unspecified (3) Afib Code(s): I48.91 - UNSPECIFIED ATRIAL FIBRILLATION Assessment/Plan - Problems (1) COPD exacerbation Assessment/Plan: iv steroids--TO PO neubulizer oxygen abx wbc now normal Code(s): J44.1 - CHRONIC OBSTRUCTIVE PULMONARY DISEASE W (ACUTE) EXACERBATION (2) Chest pain Assessment/Plan: started on imdur on BB and statin conservative treatment Code(s): R07.9 - CHEST PAIN, UNSPECIFIED Qualifiers: Chest pain type: unspecified Qualified Code(s): R07.9 - Chest pain, unspecified (3) Afib Assessment/Plan: BB and xarelto Code(s): I48.91 - UNSPECIFIED ATRIAL FIBRILLATION (4) Acute kidney injury Assessment/Plan: renal consult Code(s): N17.9 - ACUTE KIDNEY FAILURE, UNSPECIFIED
--- NOTE | 2017-04-02 09:32 | PN ---
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, Physician Chief Complaint: no distress no further CP TELE: paced - Current Medication List Current Medications: Active Medications Albuterol Sulfate (Ventolin 0.083% Nebulizer Soln -) 1 amp NEB Q4H PRN PRN Reason: SHORT OF BREATH/WHEEZING Albuterol/Ipratropium (Duoneb -) 1 amp NEB RQID [facility] Atorvastatin Calcium (Lipitor -) 10 mg PO MoWeFr@2200 [facility] Last Admin: 04/01/17 21:41 Dose: 10 mg Budesonide/Formoterol Fumarate (Symbicort 80/4.5mcg -) 2 puff IH BID [facility] Last Admin: 04/01/17 21:42 Dose: 2 puff Duloxetine HCl (Cymbalta -) 60 mg PO DAILY [facility] Last Admin: 04/01/17 09:23 Dose: 60 mg Ferrous Sulfate (Feosol -) 325 mg PO DAILY [facility] Last Admin: 04/01/17 09:23 Dose: 325 mg Furosemide (Lasix -) 20 mg PO DAILY [facility] Last Admin: 04/01/17 09:24 Dose: 20 mg Levofloxacin (Levaquin 500 Mg Premixed Ivpb -) 500 mg in 100 mls @ 100 mls/hr IVPB DAILY [facility] Last Admin: 04/01/17 09:22 Dose: 100 mls/hr Isosorbide Mononitrate (Imdur -) 30 mg PO DAILY [facility] Last Admin: 04/01/17 09:24 Dose: 30 mg Lisinopril (Prinivil) 10 mg PO DAILY [facility] Last Admin: 04/01/17 09:23 Dose: 10 mg Metoprolol Succinate (Toprol Xl -) 50 mg PO DAILY [facility] Last Admin: 04/01/17 09:23 Dose: 50 mg Prednisone (Deltasone -) 40 mg PO BID [facility] Pregabalin (Lyrica -) 100 mg PO BID [facility] Last Admin: 04/01/17 21:41 Dose: 100 mg Rivaroxaban (Xarelto -) 20 mg PO DAILY@1800 [facility] Last Admin: 04/01/17 17:11 Dose: 20 mg Tamsulosin HCl (Flomax -) 0.4 mg PO HS [facility] Last Admin: 04/01/17 21:41 Dose: 0.4 mg - Objective Vital Signs: Vital Signs Temperature 97.8 F 04/02/17 05:42 Pulse Rate 68 04/02/17 05:42 Respiratory Rate 20 04/02/17 05:42 Blood Pressure 150/92 04/02/17 05:42 O2 Sat by Pulse Oximetry (%) 97 04/02/17 06:12 Constitutional: Yes: Calm Cardiovascular: Yes: Regular Rate and Rhythm Respiratory: Yes: Other (decreased breath sounds c/w chronic COPD) Gastrointestinal: Yes: Soft Edema: No Neurological: Yes: Alert, Oriented Labs: CBC, BMP 04/01/17 07:00 04/02/17 06:50 Laboratory Tests 03/30/17 03/31/17 03/31/17 20:50 03:00 12:12 Troponin I < 0.00 L < 0.03 D < 0.02 D Assessment/Plan Assessment/Plan 76 year old man with a history of HTN, HLD, Afib, CAD s/p CABG s/p stents, PPM, ICM refused ICD in the past, PAD, Thoracic aortic aneursym, CVA with residual L sided weakness, a/w sob, acute exacerbation of COPD. Plan: 1. SOB-AECOPD:improving -CPAP and IV steroid taper as per pulmonary 2. Chronic systolic CHF with ICM-currently euvolemic -Cont Lasix, Toprol and BRAULIO-I 3.AF:HR controlled -cont Toprol 50mg daily -Cont Xarelto 4. Angina: chronic -Patient has refused any further interventions, and thus has been treated medically -started on Imdur 30mg daily -ok to dc tele at this time as no sig events recorded
[2017-04-02] MEDS: DULoxetine HCL 30 MG CAPSULE.DR (FP) PO SCH (09:48)
[2017-04-02] MEDS: BUDESONIDE/FORMETEROL FUMARATE 80/4.5 mcg INHALER IH SCH ×2 (09:48→22:10)
[2017-04-02] MEDS: ISOSORBIDE MONONITRATE 30 MG TAB.SR.24H (FP) PO SCH (09:48)
[2017-04-02] MEDS: FERROUS SO4 325 MG TABLET (FP) PO SCH (09:48)
[2017-04-02] MEDS: LEVOFLOXACIN 500 MG IVPB 500 MG/100 ML BAG IVPB SCH (09:48)
[2017-04-02] MEDS: PREGABALIN 50 MG CAPSULE PO SCH ×2 (09:48→22:10)
[2017-04-02] MEDS: METOPROLOL SUCCINATE 50 MG TAB.SR.24H (FP) PO SCH (09:48)
[2017-04-02] MEDS: LISINOPRIL 10 MG TABLET (FP) PO SCH (09:49)
[2017-04-02] MEDS: FUROSEMIDE 20 MG TABLET (FP) PO SCH (09:49)
--- NOTE | 2017-04-02 11:06 | PN ---
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, Physician History of Present Illness: PULMONARY ALERT,OOB-CHAIR,SOB IMPROVING - Current Medication List Current Medications: Active Medications Albuterol Sulfate (Ventolin 0.083% Nebulizer Soln -) 1 amp NEB Q4H PRN PRN Reason: SHORT OF BREATH/WHEEZING Albuterol/Ipratropium (Duoneb -) 1 amp NEB RQID [facility] Atorvastatin Calcium (Lipitor -) 10 mg PO MoWeFr@2200 [facility] Last Admin: 04/01/17 21:41 Dose: 10 mg Budesonide/Formoterol Fumarate (Symbicort 80/4.5mcg -) 2 puff IH BID [facility] Last Admin: 04/02/17 09:48 Dose: 2 puff Duloxetine HCl (Cymbalta -) 60 mg PO DAILY [facility] Last Admin: 04/02/17 09:48 Dose: 60 mg Ferrous Sulfate (Feosol -) 325 mg PO DAILY [facility] Last Admin: 04/02/17 09:48 Dose: 325 mg Furosemide (Lasix -) 20 mg PO DAILY [facility] Last Admin: 04/02/17 09:49 Dose: 20 mg Levofloxacin (Levaquin 500 Mg Premixed Ivpb -) 500 mg in 100 mls @ 100 mls/hr IVPB DAILY [facility] Last Admin: 04/02/17 09:48 Dose: 100 mls/hr Isosorbide Mononitrate (Imdur -) 30 mg PO DAILY [facility] Last Admin: 04/02/17 09:48 Dose: 30 mg Lisinopril (Prinivil) 10 mg PO DAILY [facility] Last Admin: 04/02/17 09:49 Dose: 10 mg Metoprolol Succinate (Toprol Xl -) 50 mg PO DAILY [facility] Last Admin: 04/02/17 09:48 Dose: 50 mg Prednisone (Deltasone -) 40 mg PO BID [facility] Pregabalin (Lyrica -) 100 mg PO BID [facility] Last Admin: 04/02/17 09:48 Dose: 100 mg Rivaroxaban (Xarelto -) 20 mg PO DAILY@1800 [facility] Last Admin: 04/01/17 17:11 Dose: 20 mg Tamsulosin HCl (Flomax -) 0.4 mg PO HS [facility] Last Admin: 04/01/17 21:41 Dose: 0.4 mg - Objective Vital Signs: Vital Signs Temperature 98.2 F 04/02/17 08:20 Pulse Rate 66 04/02/17 08:20 Respiratory Rate 18 04/02/17 08:20 Blood Pressure 152/88 04/02/17 08:20 O2 Sat by Pulse Oximetry (%) 90 L 04/02/17 10:10 Constitutional: Yes: Well Nourished, Calm Eyes: Yes: WNL HENT: Yes: WNL Neck: Yes: WNL Cardiovascular: Yes: Pulse Irregular, S1, S2 Respiratory: Yes: Diminished Gastrointestinal: Yes: Normal Bowel Sounds, Soft Extremities: Yes: WNL Edema: No Labs: 04/02/17 06:50 Problem List - Problems (1) COPD exacerbation Code(s): J44.1 - CHRONIC OBSTRUCTIVE PULMONARY DISEASE W (ACUTE) EXACERBATION (2) Azotemia Code(s): R79.89 - OTHER SPECIFIED ABNORMAL FINDINGS OF BLOOD CHEMISTRY (3) COPD (chronic obstructive pulmonary disease) Code(s): J44.9 - CHRONIC OBSTRUCTIVE PULMONARY DISEASE, UNSPECIFIED (4) Chronic respiratory failure with hypoxia Code(s): J96.11 - CHRONIC RESPIRATORY FAILURE WITH HYPOXIA (5) History of aortic aneurysm repair Code(s): Z98.890 - OTHER SPECIFIED POSTPROCEDURAL STATES; Z86.79 - PERSONAL HISTORY OF OTHER DISEASES OF THE CIRCULATORY SYSTEM (6) Afib Code(s): I48.91 - UNSPECIFIED ATRIAL FIBRILLATION (7) CAD (coronary artery disease) Code(s): I25.10 - ATHSCL HEART DISEASE OF [place] CORONARY ARTERY W/O ANG PCTRS (8) History of permanent cardiac pacemaker placement Code(s): Z95.0 - PRESENCE OF CARDIAC PACEMAKER (9) Hx of CABG Code(s): Z95.1 - PRESENCE OF AORTOCORONARY BYPASS GRAFT (10) Hyperlipidemia Code(s): E78.5 - HYPERLIPIDEMIA, UNSPECIFIED Qualifiers: (11) Stented coronary artery Code(s): Z95.5 - PRESENCE OF CORONARY ANGIOPLASTY IMPLANT AND GRAFT (12) Acute kidney injury Code(s): N17.9 - ACUTE KIDNEY FAILURE, UNSPECIFIED Assessment/Plan IMP COPD EXACERBATION IMPROVING CHRONIC HYPOXEMIC RESPIRATORY FAILURE URI ASHD S/P CABG,S/P STENTS CHF AFIB S/P PPM CP ACUTE KIDNEY INJURY S/P CVA HTN S/P AAA REPAIR PLAN CONTINUE STEROID TAPER INHALED BRONCHODILATORS BIPAP O2 ANTIBIOTICS MONITOR LYTES,RENAL FUNCTION AC NITRATES DR JEFFERSON Problem List - Problems (1) COPD exacerbation Code(s): J44.1 - CHRONIC OBSTRUCTIVE PULMONARY DISEASE W (ACUTE) EXACERBATION (2) Azotemia Code(s): R79.89 - OTHER SPECIFIED ABNORMAL FINDINGS OF BLOOD CHEMISTRY (3) COPD (chronic obstructive pulmonary disease) Code(s): J44.9 - CHRONIC OBSTRUCTIVE PULMONARY DISEASE, UNSPECIFIED (4) Chronic respiratory failure with hypoxia Code(s): J96.11 - CHRONIC RESPIRATORY FAILURE WITH HYPOXIA (5) History of aortic aneurysm repair Code(s): Z98.890 - OTHER SPECIFIED POSTPROCEDURAL STATES; Z86.79 - PERSONAL HISTORY OF OTHER DISEASES OF THE CIRCULATORY SYSTEM (6) Afib Code(s): I48.91 - UNSPECIFIED ATRIAL FIBRILLATION (7) CAD (coronary artery disease) Code(s): I25.10 - ATHSCL HEART DISEASE OF [place] CORONARY ARTERY W/O ANG PCTRS (8) History of permanent cardiac pacemaker placement Code(s): Z95.0 - PRESENCE OF CARDIAC PACEMAKER (9) Hx of CABG Code(s): Z95.1 - PRESENCE OF AORTOCORONARY BYPASS GRAFT (10) Hyperlipidemia Code(s): E78.5 - HYPERLIPIDEMIA, UNSPECIFIED Qualifiers: (11) Stented coronary artery Code(s): Z95.5 - PRESENCE OF CORONARY ANGIOPLASTY IMPLANT AND GRAFT (12) Acute kidney injury Code(s): N17.9 - ACUTE KIDNEY FAILURE, UNSPECIFIED
[2017-04-02] MEDS: predniSONE 20 MG TABLET (UD) PO SCH ×2 (11:44→22:09)
--- NOTE | 2017-04-02 14:43 | EKG ---
Test Reason : Blood Pressure : / mmHG Vent. Rate : 084 BPM Atrial Rate : 084 BPM P-R Int : 000 ms QRS Dur : 120 ms QT Int : 400 ms P-R-T Axes : 078 265 088 degrees QTc Int : 472 ms Ventricular-paced rhythm Biventricular pacemaker detected ABNORMAL ECG Confirmed by Axel Doyle MD ([id number]) on 04/02/2017 2:42:49 PM Referred By: [place] SANDERS Confirmed By:Axel Doyle MD
--- NOTE | 2017-04-02 14:46 | PN ---
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, Physician History of Present Illness: Pt seen and examined at bedside. He is awake and alert. He says that he feels better today. - Current Medication List Current Medications: Active Medications Albuterol Sulfate (Ventolin 0.083% Nebulizer Soln -) 1 amp NEB Q4H PRN PRN Reason: SHORT OF BREATH/WHEEZING Albuterol/Ipratropium (Duoneb -) 1 amp NEB RQID [facility] Last Admin: 04/02/17 10:45 Dose: 1 amp Atorvastatin Calcium (Lipitor -) 10 mg PO MoWeFr@2200 [facility] Last Admin: 04/01/17 21:41 Dose: 10 mg Budesonide/Formoterol Fumarate (Symbicort 80/4.5mcg -) 2 puff IH BID [facility] Last Admin: 04/02/17 09:48 Dose: 2 puff Duloxetine HCl (Cymbalta -) 60 mg PO DAILY [facility] Last Admin: 04/02/17 09:48 Dose: 60 mg Ferrous Sulfate (Feosol -) 325 mg PO DAILY [facility] Last Admin: 04/02/17 09:48 Dose: 325 mg Furosemide (Lasix -) 20 mg PO DAILY [facility] Last Admin: 04/02/17 09:49 Dose: 20 mg Levofloxacin (Levaquin 500 Mg Premixed Ivpb -) 500 mg in 100 mls @ 100 mls/hr IVPB DAILY [facility] Last Admin: 04/02/17 09:48 Dose: 100 mls/hr Isosorbide Mononitrate (Imdur -) 30 mg PO DAILY [facility] Last Admin: 04/02/17 09:48 Dose: 30 mg Lisinopril (Prinivil) 10 mg PO DAILY [facility] Last Admin: 04/02/17 09:49 Dose: 10 mg Metoprolol Succinate (Toprol Xl -) 50 mg PO DAILY [facility] Last Admin: 04/02/17 09:48 Dose: 50 mg Prednisone (Deltasone -) 40 mg PO BID [facility] Last Admin: 04/02/17 11:44 Dose: 40 mg Pregabalin (Lyrica -) 100 mg PO BID [facility] Last Admin: 04/02/17 09:48 Dose: 100 mg Rivaroxaban (Xarelto -) 20 mg PO DAILY@1800 [facility] Last Admin: 04/01/17 17:11 Dose: 20 mg Tamsulosin HCl (Flomax -) 0.4 mg PO HS [facility] Last Admin: 04/01/17 21:41 Dose: 0.4 mg - Objective Vital Signs: Vital Signs Temperature 98.2 F 04/02/17 08:20 Pulse Rate 66 04/02/17 08:20 Respiratory Rate 18 04/02/17 09:00 Blood Pressure 152/88 04/02/17 08:20 O2 Sat by Pulse Oximetry (%) 90 L 04/02/17 10:10 Constitutional: Yes: Calm Eyes: Yes: Conjunctiva Clear Cardiovascular: Yes: S1, S2 Respiratory: Yes: On Nasal O2 Gastrointestinal: Yes: Soft Genitourinary: Yes: WNL Musculoskeletal: Yes: WNL Edema: No Neurological: Yes: Oriented Psychiatric: Yes: Oriented Labs: CBC, BMP 04/01/17 07:00 04/02/17 06:50 Problem List - Problems (1) CKD (chronic kidney disease) Code(s): N18.9 - CHRONIC KIDNEY DISEASE, UNSPECIFIED (2) COPD exacerbation Code(s): J44.1 - CHRONIC OBSTRUCTIVE PULMONARY DISEASE W (ACUTE) EXACERBATION (3) Abdominal pain Code(s): R10.9 - UNSPECIFIED ABDOMINAL PAIN Qualifiers: Abdominal location: left lower quadrant Qualified Code(s): R10.32 - Left lower quadrant pain (4) COPD (chronic obstructive pulmonary disease) Code(s): J44.9 - CHRONIC OBSTRUCTIVE PULMONARY DISEASE, UNSPECIFIED Assessment/Plan Current Medications Generic Name Dose Route Start Last Admin Trade Name Freq PRN Reason Stop Dose Admin Albuterol Sulfate 1 amp 03/30/17 21:51 Ventolin 0.083% Nebulizer Soln - NEB Q4H PRN SHORT OF BREATH/WHEEZING Albuterol/Ipratropium 1 amp 04/02/17 09:02 04/02/17 10:45 Duoneb - NEB 1 amp RQID [facility] Administration Atorvastatin Calcium 10 mg 03/29/17 22:00 04/01/17 21:41 Lipitor - PO 10 mg MoWeFr@2200 [facility] Administration Budesonide/Formoterol Fumarate 2 puff 03/28/17 22:00 04/02/17 09:48 Symbicort 80/4.5mcg - IH 2 puff BID [facility] Administration Duloxetine HCl 60 mg 03/29/17 10:00 01/09/18 09:48 Cymbalta - PO 60 mg DAILY [facility] Administration Ferrous Sulfate 325 mg 03/29/17 10:00 04/02/17 09:48 Feosol - PO 325 mg DAILY [facility] Administration Furosemide 20 mg 03/29/17 10:00 04/02/17 09:49 Lasix - PO 20 mg DAILY [facility] Administration Levofloxacin 500 mg in 100 mls @ 100 mls/hr 03/29/17 10:00 04/02/17 09:48 Levaquin 500 Mg Premixed Ivpb - IVPB 100 mls/hr DAILY [facility] Administration Isosorbide Mononitrate 30 mg 03/31/17 10:00 04/02/17 09:48 Imdur - PO 30 mg DAILY [facility] Administration Lisinopril 10 mg 03/29/17 10:00 04/02/17 09:49 Prinivil PO 10 mg DAILY [facility] Administration Metoprolol Succinate 50 mg 03/29/17 10:00 04/02/17 09:48 Toprol Xl - PO 50 mg DAILY [facility] Administration Prednisone 40 mg 04/02/17 10:00 04/02/17 11:44 Deltasone - PO 40 mg BID [facility] Administration Pregabalin 100 mg 03/29/17 21:29 04/02/17 09:48 Lyrica - PO 100 mg BID [facility] Administration Rivaroxaban 20 mg 03/29/17 18:00 04/01/17 17:11 Xarelto - PO 20 mg DAILY@1800 [facility] Administration Tamsulosin HCl 0.4 mg 03/29/17 22:00 04/01/17 21:41 Flomax - PO 0.4 mg HS [facility] Administration Laboratory Tests 04/01/17 22:00 Urine Protein Negative Urine Blood 1+ H Impression 1. CKD 2. shortness of breath 3. AAA 4. hx CVA 5. a-fib 6. HTN 7. insomnia 8. COPD on home oxygen 9. CAD 10. BPH 12. microscopic hematuria Plan - renal function is improved - steroids with taper - cont lasix - cont steve - ckd workup can be done as outpt
[2017-04-02] MEDS ORDERED: NITROGLYCERIN SUBLINGUAL 1/150 0.4 MG TAB SL PRN (16:08)
[2017-04-02] MEDS: ASPIRIN 81 MG CHEWABLE TABLETS PO SCH (17:11)
[2017-04-02] MEDS: RIVAROXABAN 20 MG TABLET PO SCH (17:11)
[2017-04-02] MEDS ORDERED: ISOSORBIDE DINITRATE 20 MG TABLET (FP) PO SCH (22:00)
[2017-04-02] MEDS: TAMSULOSIN HCL 0.4 MG CAP.ER.24H (FP) PO SCH (22:09)
[2017-04-03] MEDS: ALBUTEROL SO4 2.5/IPRATROPIUM 0.5 INH SOL 3 ML VIAL.NEB. NEB SCH ×4 (08:10→22:05)
[2017-04-03] MEDS ORDERED: PT OWN MED DRAWER 7, Y5N ONE ×4 (09:00→18:45)
[2017-04-03] MEDS: METOPROLOL SUCCINATE 50 MG TAB.SR.24H (FP) PO SCH (09:12)
[2017-04-03] MEDS: FUROSEMIDE 20 MG TABLET (FP) PO SCH (09:12)
[2017-04-03] MEDS: DULoxetine HCL 30 MG CAPSULE.DR (FP) PO SCH (09:12)
[2017-04-03] MEDS: predniSONE 20 MG TABLET (UD) PO SCH ×2 (09:12→22:07)
[2017-04-03] MEDS: LISINOPRIL 10 MG TABLET (FP) PO SCH (09:12)
[2017-04-03] MEDS: PREGABALIN 50 MG CAPSULE PO SCH ×2 (09:12→22:08)
[2017-04-03] MEDS: ISOSORBIDE DINITRATE 20 MG TABLET (FP) PO SCH ×2 (09:13→17:17)
[2017-04-03] MEDS: LEVOFLOXACIN 500 MG IVPB 500 MG/100 ML BAG IVPB SCH (09:13)
[2017-04-03] MEDS: FERROUS SO4 325 MG TABLET (FP) PO SCH (09:13)
[2017-04-03] MEDS: BUDESONIDE/FORMETEROL FUMARATE 80/4.5 mcg INHALER IH SCH ×2 (09:13→22:08)
[2017-04-03] MEDS: ASPIRIN 81 MG CHEWABLE TABLETS PO SCH (09:14)
[2017-04-03 09:18] LABS: CHLORIDE 105 mmol/L (98-107); POTASSIUM 4.5 mmol/L (3.5-5.1); SODIUM 140 mmol/L (136-145)
--- NOTE | 2017-04-03 09:21 | PN ---
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, Physician Chief Complaint: had another episode chest pain yesterday Enzymes negative Nitrate switched to BID Isordil - Current Medication List Current Medications: Active Medications Albuterol Sulfate (Ventolin 0.083% Nebulizer Soln -) 1 amp NEB Q4H PRN PRN Reason: SHORT OF BREATH/WHEEZING Albuterol/Ipratropium (Duoneb -) 1 amp NEB RQID [facility] Last Admin: 04/02/17 20:30 Dose: 1 amp Aspirin (Asa -) 81 mg PO DAILY [facility] Last Admin: 04/03/17 09:14 Dose: 81 mg Atorvastatin Calcium (Lipitor -) 10 mg PO MoWeFr@2200 [facility] Last Admin: 04/01/17 21:41 Dose: 10 mg Budesonide/Formoterol Fumarate (Symbicort 80/4.5mcg -) 2 puff IH BID [facility] Last Admin: 04/03/17 09:13 Dose: 2 puff Duloxetine HCl (Cymbalta -) 60 mg PO DAILY [facility] Last Admin: 04/03/17 09:12 Dose: 60 mg Ferrous Sulfate (Feosol -) 325 mg PO DAILY [facility] Last Admin: 04/03/17 09:13 Dose: 325 mg Furosemide (Lasix -) 20 mg PO DAILY [facility] Last Admin: 04/03/17 09:12 Dose: 20 mg Levofloxacin (Levaquin 500 Mg Premixed Ivpb -) 500 mg in 100 mls @ 100 mls/hr IVPB DAILY [facility] Last Admin: 04/03/17 09:13 Dose: 100 mls/hr Isosorbide Dinitrate (Isordil -) 20 mg PO BIDISORDIL [facility] Last Admin: 04/03/17 09:13 Dose: 20 mg Lisinopril (Prinivil) 10 mg PO DAILY [facility] Last Admin: 04/03/17 09:12 Dose: 10 mg Metoprolol Succinate (Toprol Xl -) 50 mg PO DAILY [facility] Last Admin: 04/03/17 09:12 Dose: 50 mg Nitroglycerin (Nitrostat -) 0.4 mg SL Q5M PRN PRN Reason: FOR CHEST PAIN Prednisone (Deltasone -) 40 mg PO BID [facility] Last Admin: 04/03/17 09:12 Dose: 40 mg Pregabalin (Lyrica -) 100 mg PO BID [facility] Last Admin: 04/03/17 09:12 Dose: 100 mg Rivaroxaban (Xarelto -) 20 mg PO DAILY@1800 [facility] Last Admin: 04/02/17 17:11 Dose: 20 mg Tamsulosin HCl (Flomax -) 0.4 mg PO HS [facility] Last Admin: 04/02/17 22:09 Dose: 0.4 mg - Objective Vital Signs: Vital Signs Temperature 97.2 F L 04/03/17 06:00 Pulse Rate 80 04/03/17 06:00 Respiratory Rate 20 04/03/17 06:00 Blood Pressure 112/77 04/03/17 06:00 O2 Sat by Pulse Oximetry (%) 96 04/03/17 06:30 Constitutional: Yes: Calm Cardiovascular: Yes: Regular Rate and Rhythm Respiratory: Yes: Other (decreased breath sounds) Gastrointestinal: Yes: Soft Edema: No Neurological: Yes: Alert Labs: CBC, BMP 04/01/17 07:00 04/03/17 07:09 - ....Imaging EKG: Other (TELE: Paced with occasional VPCs) Assessment/Plan Assessment/Plan 76 year old man with a history of HTN, HLD, Afib, CAD s/p CABG s/p stents, PPM, ICM refused ICD in the past, PAD, Thoracic aortic aneursym, CVA with residual L sided weakness, a/w sob, acute exacerbation of COPD. Plan: 1. SOB-AECOPD:improving -CPAP and IV steroid taper as per pulmonary 2. Chronic systolic CHF with ICM-currently euvolemic -Cont Lasix, Toprol and BRAULIO-I 3.AF:HR controlled -cont Toprol 50mg daily -Cont Xarelto 4. Angina: chronic -Patient has refused any further interventions, and thus has been treated medically -changed to Isordil BID -Again spoke to patient about option of stress test or cardiac cath- he does not want any further tests -Spoke to Kailey and discussed the situation including options of stress test, cath and continued medical Rx. She will discuss with her again and let me know their final decision. -His thoracic aneurysm is stable at 4.8cm as of the last scan, but should be imaged again with CTA to assure stability if creatinine stabilizes.
--- NOTE | 2017-04-03 09:21 | EKG ---
Test Reason : Blood Pressure : / mmHG Vent. Rate : 081 BPM Atrial Rate : 081 BPM P-R Int : 138 ms QRS Dur : 118 ms QT Int : 402 ms P-R-T Axes : 065 262 098 degrees QTc Int : 466 ms Atrial-sensed ventricular-paced rhythm Biventricular pacemaker detected ABNORMAL ECG WHEN COMPARED WITH ECG OF 02-APR-2017 09:18, VENT. RATE HAS DECREASED BY 3 BPM Confirmed by MANISH ARREDONDO, KAMALA ([id number]) on 04/03/2017 9:20:59 AM Referred By: Confirmed By:KAMALA HAMMOND MD
[2017-04-03 09:24] LABS: ANION GAP 13 (8-16); BLOOD UREA NITROGEN 40 mg/dL (7-18); CALCIUM 8.5 mg/dL (8.5-10.1); CO2 22 mmol/L (21-32); CREATININE 1.3 mg/dL (0.7-1.3); GLUCOSE,RANDOM 109 mg/dL (74-106)
--- NOTE | 2017-04-03 11:00 | PN ---
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, Physician Chief Complaint: AWAKE ALERT BEDSIDE STILL SOB - Current Medication List Current Medications: Active Medications Albuterol Sulfate (Ventolin 0.083% Nebulizer Soln -) 1 amp NEB Q4H PRN PRN Reason: SHORT OF BREATH/WHEEZING Albuterol/Ipratropium (Duoneb -) 1 amp NEB RQID [facility] Last Admin: 04/03/17 08:10 Dose: 1 amp Aspirin (Asa -) 81 mg PO DAILY [facility] Last Admin: 04/03/17 09:14 Dose: 81 mg Atorvastatin Calcium (Lipitor -) 10 mg PO MoWeFr@2200 [facility] Last Admin: 04/01/17 21:41 Dose: 10 mg Budesonide/Formoterol Fumarate (Symbicort 80/4.5mcg -) 2 puff IH BID [facility] Last Admin: 04/03/17 09:13 Dose: 2 puff Duloxetine HCl (Cymbalta -) 60 mg PO DAILY [facility] Last Admin: 04/03/17 09:12 Dose: 60 mg Ferrous Sulfate (Feosol -) 325 mg PO DAILY [facility] Last Admin: 04/03/17 09:13 Dose: 325 mg Furosemide (Lasix -) 20 mg PO DAILY [facility] Last Admin: 04/03/17 09:12 Dose: 20 mg Levofloxacin (Levaquin 500 Mg Premixed Ivpb -) 500 mg in 100 mls @ 100 mls/hr IVPB DAILY [facility] Last Admin: 04/03/17 09:13 Dose: 100 mls/hr Isosorbide Dinitrate (Isordil -) 20 mg PO BIDISORDIL [facility] Last Admin: 04/03/17 09:13 Dose: 20 mg Lisinopril (Prinivil) 10 mg PO DAILY [facility] Last Admin: 04/03/17 09:12 Dose: 10 mg Metoprolol Succinate (Toprol Xl -) 50 mg PO DAILY [facility] Last Admin: 04/03/17 09:12 Dose: 50 mg Nitroglycerin (Nitrostat -) 0.4 mg SL Q5M PRN PRN Reason: FOR CHEST PAIN Prednisone (Deltasone -) 40 mg PO BID [facility] Last Admin: 04/03/17 09:12 Dose: 40 mg Pregabalin (Lyrica -) 100 mg PO BID [facility] Last Admin: 04/03/17 09:12 Dose: 100 mg Rivaroxaban (Xarelto -) 20 mg PO DAILY@1800 [facility] Last Admin: 04/02/17 17:11 Dose: 20 mg Tamsulosin HCl (Flomax -) 0.4 mg PO HS [facility] Last Admin: 04/02/17 22:09 Dose: 0.4 mg - Objective Vital Signs: Vital Signs Temperature 97.9 F 04/03/17 10:00 Pulse Rate 80 04/03/17 10:00 Respiratory Rate 20 04/03/17 10:00 Blood Pressure 127/78 04/03/17 10:00 O2 Sat by Pulse Oximetry (%) 90 L 04/03/17 09:00 Constitutional: Yes: Mild Distress Eyes: Yes: WNL HENT: Yes: WNL Neck: Yes: WNL Cardiovascular: Yes: WNL Respiratory: Yes: On Nasal O2, Poor Air Entry Gastrointestinal: Yes: WNL Genitourinary: Yes: WNL Musculoskeletal: Yes: Muscle Weakness Extremities: Yes: WNL Edema: Yes Edema: LLE: Trace, RLE: Trace Peripheral Pulses WNL: Yes Integumentary: Yes: Rash, Venous Stasis Changes Wound/Incision: Yes: Dressing Dry and Intact Neurological: Yes: Other ...Motor Strength: LLE, RLE Psychiatric: Yes: Other Labs: CBC, BMP 04/01/17 07:00 04/03/17 07:09 Problem List - Problems (1) CKD (chronic kidney disease) Code(s): N18.9 - CHRONIC KIDNEY DISEASE, UNSPECIFIED Qualifiers: Chronic kidney disease stage: stage 3 (moderate) Qualified Code(s): N18.3 - Chronic kidney disease, stage 3 (moderate) (2) COPD exacerbation Code(s): J44.1 - CHRONIC OBSTRUCTIVE PULMONARY DISEASE W (ACUTE) EXACERBATION (3) COPD (chronic obstructive pulmonary disease) Code(s): J44.9 - CHRONIC OBSTRUCTIVE PULMONARY DISEASE, UNSPECIFIED Qualifiers: COPD type: COPD with acute exacerbation Qualified Code(s): J44.1 - Chronic obstructive pulmonary disease with (acute) exacerbation (4) History of aortic aneurysm repair Code(s): Z98.890 - OTHER SPECIFIED POSTPROCEDURAL STATES; Z86.79 - PERSONAL HISTORY OF OTHER DISEASES OF THE CIRCULATORY SYSTEM (5) History of arterial bypass of lower extremity Code(s): Z95.828 - PRESENCE OF OTHER VASCULAR IMPLANTS AND GRAFTS (6) Hx of CABG Code(s): Z95.1 - PRESENCE OF AORTOCORONARY BYPASS GRAFT (7) Hypertension Code(s): I10 - ESSENTIAL (PRIMARY) HYPERTENSION Qualifiers: Hypertension type: essential hypertension Qualified Code(s): I10 - Essential (primary) hypertension (8) Presence of cardiac pacemaker Code(s): Z95.0 - PRESENCE OF CARDIAC PACEMAKER (9) Stented coronary artery Code(s): Z95.5 - PRESENCE OF CORONARY ANGIOPLASTY IMPLANT AND GRAFT Assessment/Plan DISCUSSED WITH CARDIOLOGY CHEST CTA FOLLOW UP ANEURYSM CARDIAC CATH SATURDAY AT [facility] IVF 02 SUPPORT IN AGREEMENT
--- NOTE | 2017-04-03 11:35 | PN ---
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, Physician History of Present Illness: PULMONARY ALERT,FEELING BETTER,LESS DYSPNEIC,+OCC CP, - Current Medication List Current Medications: Active Medications Albuterol Sulfate (Ventolin 0.083% Nebulizer Soln -) 1 amp NEB Q4H PRN PRN Reason: SHORT OF BREATH/WHEEZING Albuterol/Ipratropium (Duoneb -) 1 amp NEB RQID [facility] Last Admin: 04/03/17 08:10 Dose: 1 amp Aspirin (Asa -) 81 mg PO DAILY [facility] Last Admin: 04/03/17 09:14 Dose: 81 mg Atorvastatin Calcium (Lipitor -) 10 mg PO MoWeFr@2200 [facility] Last Admin: 04/01/17 21:41 Dose: 10 mg Budesonide/Formoterol Fumarate (Symbicort 80/4.5mcg -) 2 puff IH BID [facility] Last Admin: 04/03/17 09:13 Dose: 2 puff Duloxetine HCl (Cymbalta -) 60 mg PO DAILY [facility] Last Admin: 04/03/17 09:12 Dose: 60 mg Ferrous Sulfate (Feosol -) 325 mg PO DAILY [facility] Last Admin: 04/03/17 09:13 Dose: 325 mg Furosemide (Lasix -) 20 mg PO DAILY [facility] Last Admin: 04/03/17 09:12 Dose: 20 mg Levofloxacin (Levaquin 500 Mg Premixed Ivpb -) 500 mg in 100 mls @ 100 mls/hr IVPB DAILY [facility] Last Admin: 04/03/17 09:13 Dose: 100 mls/hr Sodium Chloride (Normal Saline -) 1,000 mls @ 75 mls/hr IV ASDIR [facility] Isosorbide Dinitrate (Isordil -) 20 mg PO BIDISORDIL [facility] Last Admin: 04/03/17 09:13 Dose: 20 mg Lisinopril (Prinivil) 10 mg PO DAILY [facility] Last Admin: 04/03/17 09:12 Dose: 10 mg Metoprolol Succinate (Toprol Xl -) 50 mg PO DAILY [facility] Last Admin: 04/03/17 09:12 Dose: 50 mg Nitroglycerin (Nitrostat -) 0.4 mg SL Q5M PRN PRN Reason: FOR CHEST PAIN Prednisone (Deltasone -) 40 mg PO BID [facility] Last Admin: 04/03/17 09:12 Dose: 40 mg Pregabalin (Lyrica -) 100 mg PO BID [facility] Last Admin: 04/03/17 09:12 Dose: 100 mg Rivaroxaban (Xarelto -) 20 mg PO DAILY@1800 [facility] Last Admin: 04/02/17 17:11 Dose: 20 mg Tamsulosin HCl (Flomax -) 0.4 mg PO HS [facility] Last Admin: 04/02/17 22:09 Dose: 0.4 mg - Objective Vital Signs: Vital Signs Temperature 97.9 F 04/03/17 10:00 Pulse Rate 80 04/03/17 10:00 Respiratory Rate 20 04/03/17 10:00 Blood Pressure 127/78 04/03/17 10:00 O2 Sat by Pulse Oximetry (%) 90 L 04/03/17 09:00 Constitutional: Yes: Well Nourished, Calm Eyes: Yes: WNL HENT: Yes: WNL Neck: Yes: WNL Cardiovascular: Yes: Pulse Irregular, S1, S2 Respiratory: Yes: Diminished Gastrointestinal: Yes: Normal Bowel Sounds, Soft Extremities: Yes: WNL Edema: No Labs: CBC, BMP 04/01/17 07:00 04/03/17 07:09 Problem List - Problems (1) COPD exacerbation Code(s): J44.1 - CHRONIC OBSTRUCTIVE PULMONARY DISEASE W (ACUTE) EXACERBATION (2) Azotemia Code(s): R79.89 - OTHER SPECIFIED ABNORMAL FINDINGS OF BLOOD CHEMISTRY (3) COPD (chronic obstructive pulmonary disease) Code(s): J44.9 - CHRONIC OBSTRUCTIVE PULMONARY DISEASE, UNSPECIFIED Qualifiers: COPD type: COPD with acute exacerbation Qualified Code(s): J44.1 - Chronic obstructive pulmonary disease with (acute) exacerbation (4) Chronic respiratory failure with hypoxia Code(s): J96.11 - CHRONIC RESPIRATORY FAILURE WITH HYPOXIA (5) History of aortic aneurysm repair Code(s): Z98.890 - OTHER SPECIFIED POSTPROCEDURAL STATES; Z86.79 - PERSONAL HISTORY OF OTHER DISEASES OF THE CIRCULATORY SYSTEM (6) Afib Code(s): I48.91 - UNSPECIFIED ATRIAL FIBRILLATION (7) CAD (coronary artery disease) Code(s): I25.10 - ATHSCL HEART DISEASE OF [place] CORONARY ARTERY W/O ANG PCTRS (8) History of permanent cardiac pacemaker placement Code(s): Z95.0 - PRESENCE OF CARDIAC PACEMAKER (9) Hx of CABG Code(s): Z95.1 - PRESENCE OF AORTOCORONARY BYPASS GRAFT (10) Hyperlipidemia Code(s): E78.5 - HYPERLIPIDEMIA, UNSPECIFIED Qualifiers: (11) Stented coronary artery Code(s): Z95.5 - PRESENCE OF CORONARY ANGIOPLASTY IMPLANT AND GRAFT (12) Acute kidney injury Code(s): N17.9 - ACUTE KIDNEY FAILURE, UNSPECIFIED Assessment/Plan IMP COPD EXACERBATION IMPROVING CHRONIC HYPOXEMIC RESPIRATORY FAILURE URI ASHD S/P CABG,S/P STENTS CHF AFIB S/P PPM CP ACUTE KIDNEY INJURY IMPROVED S/P CVA HTN S/P AAA REPAIR PLAN STEROID TAPER INHALED BRONCHODILATORS BIPAP O2 ANTIBIOTICS MONITOR LYTES,RENAL FUNCTION AC NITRATES CARDIAC CATH DR JEFFERSON Problem List - Problems (1) COPD exacerbation Code(s): J44.1 - CHRONIC OBSTRUCTIVE PULMONARY DISEASE W (ACUTE) EXACERBATION (2) Azotemia Code(s): R79.89 - OTHER SPECIFIED ABNORMAL FINDINGS OF BLOOD CHEMISTRY (3) COPD (chronic obstructive pulmonary disease) Code(s): J44.9 - CHRONIC OBSTRUCTIVE PULMONARY DISEASE, UNSPECIFIED (4) Chronic respiratory failure with hypoxia Code(s): J96.11 - CHRONIC RESPIRATORY FAILURE WITH HYPOXIA (5) History of aortic aneurysm repair Code(s): Z98.890 - OTHER SPECIFIED POSTPROCEDURAL STATES; Z86.79 - PERSONAL HISTORY OF OTHER DISEASES OF THE CIRCULATORY SYSTEM (6) Afib Code(s): I48.91 - UNSPECIFIED ATRIAL FIBRILLATION (7) CAD (coronary artery disease) Code(s): I25.10 - ATHSCL HEART DISEASE OF [place] CORONARY ARTERY W/O ANG PCTRS (8) History of permanent cardiac pacemaker placement Code(s): Z95.0 - PRESENCE OF CARDIAC PACEMAKER (9) Hx of CABG Code(s): Z95.1 - PRESENCE OF AORTOCORONARY BYPASS GRAFT (10) Hyperlipidemia Code(s): E78.5 - HYPERLIPIDEMIA, UNSPECIFIED Qualifiers: (11) Stented coronary artery Code(s): Z95.5 - PRESENCE OF CORONARY ANGIOPLASTY IMPLANT AND GRAFT (12) Acute kidney injury Code(s): N17.9 - ACUTE KIDNEY FAILURE, UNSPECIFIED
--- NOTE | 2017-04-03 12:13 | EKG ---
Test Reason : Blood Pressure : / mmHG Vent. Rate : 089 BPM Atrial Rate : 089 BPM P-R Int : 140 ms QRS Dur : 124 ms QT Int : 404 ms P-R-T Axes : 079 -89 094 degrees QTc Int : 491 ms POOR DATA QUALITY, INTERPRETATION MAY BE ADVERSELY AFFECTED Atrial-sensed ventricular-paced rhythm Biventricular pacemaker detected ABNORMAL ECG WHEN COMPARED WITH ECG OF 28-MAR-2017 07:02, VENT. RATE HAS INCREASED BY 6 BPM Confirmed by MANISH ARREDONDO, KAMALA ([id number]) on 04/03/2017 12:13:24 PM Referred By: Confirmed By:KAMALA HAMMOND MD
--- NOTE | 2017-04-03 13:33 | PN ---
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, Physician History of Present Illness: Pt seen and examined at bedside. He is awake and alert. He denies any change in breathing. - Current Medication List Current Medications: Active Medications Albuterol Sulfate (Ventolin 0.083% Nebulizer Soln -) 1 amp NEB Q4H PRN PRN Reason: SHORT OF BREATH/WHEEZING Albuterol/Ipratropium (Duoneb -) 1 amp NEB RQID [facility] Last Admin: 04/03/17 08:10 Dose: 1 amp Aspirin (Asa -) 81 mg PO DAILY [facility] Last Admin: 04/03/17 09:14 Dose: 81 mg Atorvastatin Calcium (Lipitor -) 10 mg PO MoWeFr@2200 [facility] Last Admin: 04/01/17 21:41 Dose: 10 mg Budesonide/Formoterol Fumarate (Symbicort 80/4.5mcg -) 2 puff IH BID [facility] Last Admin: 04/03/17 09:13 Dose: 2 puff Duloxetine HCl (Cymbalta -) 60 mg PO DAILY [facility] Last Admin: 04/03/17 09:12 Dose: 60 mg Ferrous Sulfate (Feosol -) 325 mg PO DAILY [facility] Last Admin: 04/03/17 09:13 Dose: 325 mg Furosemide (Lasix -) 20 mg PO DAILY [facility] Last Admin: 04/03/17 09:12 Dose: 20 mg Levofloxacin (Levaquin 500 Mg Premixed Ivpb -) 500 mg in 100 mls @ 100 mls/hr IVPB DAILY [facility] Last Admin: 04/03/17 09:13 Dose: 100 mls/hr Sodium Chloride (Normal Saline -) 1,000 mls @ 75 mls/hr IV ASDIR [facility] Isosorbide Dinitrate (Isordil -) 20 mg PO BIDISORDIL [facility] Last Admin: 04/03/17 09:13 Dose: 20 mg Lisinopril (Prinivil) 10 mg PO DAILY [facility] Last Admin: 04/03/17 09:12 Dose: 10 mg Metoprolol Succinate (Toprol Xl -) 50 mg PO DAILY [facility] Last Admin: 04/03/17 09:12 Dose: 50 mg Nitroglycerin (Nitrostat -) 0.4 mg SL Q5M PRN PRN Reason: FOR CHEST PAIN Prednisone (Deltasone -) 40 mg PO BID [facility] Last Admin: 04/03/17 09:12 Dose: 40 mg Pregabalin (Lyrica -) 100 mg PO BID [facility] Last Admin: 04/03/17 09:12 Dose: 100 mg Rivaroxaban (Xarelto -) 20 mg PO DAILY@1800 [facility] Last Admin: 04/02/17 17:11 Dose: 20 mg Tamsulosin HCl (Flomax -) 0.4 mg PO HS [facility] Last Admin: 04/02/17 22:09 Dose: 0.4 mg - Objective Vital Signs: Vital Signs Temperature 97.9 F 04/03/17 10:00 Pulse Rate 80 04/03/17 10:00 Respiratory Rate 20 04/03/17 10:00 Blood Pressure 127/78 04/03/17 10:00 O2 Sat by Pulse Oximetry (%) 90 L 04/03/17 09:00 Constitutional: Yes: Calm Eyes: Yes: Conjunctiva Clear HENT: Yes: Atraumatic Neck: Yes: Supple Cardiovascular: Yes: S1, S2 Respiratory: Yes: On Nasal O2 Gastrointestinal: Yes: Soft Genitourinary: Yes: WNL Musculoskeletal: Yes: WNL Edema: No Neurological: Yes: Oriented Psychiatric: Yes: Oriented Labs: CBC, BMP 04/01/17 07:00 04/03/17 07:09 Problem List - Problems (1) CKD (chronic kidney disease) Code(s): N18.9 - CHRONIC KIDNEY DISEASE, UNSPECIFIED Qualifiers: Chronic kidney disease stage: stage 3 (moderate) Qualified Code(s): N18.3 - Chronic kidney disease, stage 3 (moderate) (2) COPD exacerbation Code(s): J44.1 - CHRONIC OBSTRUCTIVE PULMONARY DISEASE W (ACUTE) EXACERBATION (3) Abdominal pain Code(s): R10.9 - UNSPECIFIED ABDOMINAL PAIN Qualifiers: Abdominal location: left lower quadrant Qualified Code(s): R10.32 - Left lower quadrant pain (4) COPD (chronic obstructive pulmonary disease) Code(s): J44.9 - CHRONIC OBSTRUCTIVE PULMONARY DISEASE, UNSPECIFIED Qualifiers: COPD type: COPD with acute exacerbation Qualified Code(s): J44.1 - Chronic obstructive pulmonary disease with (acute) exacerbation Assessment/Plan Current Medications Generic Name Dose Route Start Last Admin Trade Name Freq PRN Reason Stop Dose Admin Albuterol Sulfate 1 amp 03/30/17 21:51 Ventolin 0.083% Nebulizer Soln - NEB Q4H PRN SHORT OF BREATH/WHEEZING Albuterol/Ipratropium 1 amp 04/02/17 09:02 04/03/17 08:10 Duoneb - NEB 1 amp RQID [facility] Administration Aspirin 81 mg 04/02/17 16:15 04/03/17 09:14 Asa - PO 81 mg DAILY [facility] Administration Atorvastatin Calcium 10 mg 03/29/17 22:00 04/01/17 21:41 Lipitor - PO 10 mg MoWeFr@2200 [facility] Administration Budesonide/Formoterol Fumarate 2 puff 03/28/17 22:00 04/03/17 09:13 Symbicort 80/4.5mcg - IH 2 puff BID [facility] Administration Duloxetine HCl 60 mg 03/29/17 10:00 04/03/17 09:12 Cymbalta - PO 60 mg DAILY [facility] Administration Ferrous Sulfate 325 mg 03/29/17 10:00 04/03/17 09:13 Feosol - PO 325 mg DAILY [facility] Administration Furosemide 20 mg 03/29/17 10:00 04/03/17 09:12 Lasix - PO 20 mg DAILY [facility] Administration Levofloxacin 500 mg in 100 mls @ 100 mls/hr 03/29/17 10:00 04/03/17 09:13 Levaquin 500 Mg Premixed Ivpb - IVPB 100 mls/hr DAILY [facility] Administration Sodium Chloride 1,000 mls @ 75 mls/hr 04/03/17 11:15 Normal Saline - IV ASDIR [facility] Isosorbide Dinitrate 20 mg 04/03/17 10:00 04/03/17 09:13 Isordil - PO 20 mg BIDISORDIL [facility] Administration Lisinopril 10 mg 03/29/17 10:00 04/03/17 09:12 Prinivil PO 10 mg DAILY [facility] Administration Metoprolol Succinate 50 mg 03/29/17 10:00 04/03/17 09:12 Toprol Xl - PO 50 mg DAILY [facility] Administration Nitroglycerin 0.4 mg 04/02/17 16:08 Nitrostat - SL Q5M PRN FOR CHEST PAIN Prednisone 40 mg 04/02/17 10:00 04/03/17 09:12 Deltasone - PO 40 mg BID [facility] Administration Pregabalin 100 mg 03/29/17 21:29 04/03/17 09:12 Lyrica - PO 100 mg BID [facility] Administration Rivaroxaban 20 mg 03/29/17 18:00 04/02/17 17:11 Xarelto - PO 20 mg DAILY@1800 [facility] Administration Tamsulosin HCl 0.4 mg 03/29/17 22:00 04/02/17 22:09 Flomax - PO 0.4 mg HS [facility] Administration Impression 1. CKD 2. shortness of breath 3. AAA 4. hx CVA 5. a-fib 6. HTN 7. insomnia 8. COPD on home oxygen 9. CAD 10. BPH 12. microscopic hematuria Plan - discussed with medical team, pt is going for a CT angio today - will start fluids before scan and will give mucomyst - discussed ZURDO risk with pt and and they understand - steroids with taper - ckd workup can be done as outpt
[2017-04-03] MEDS: SODIUM CHLORIDE 1,000 ML IV SCH (13:36)
[2017-04-03] MEDS: RIVAROXABAN 20 MG TABLET PO SCH (17:17)
[2017-04-03] MEDS: ACETYLCYSTEINE 20% 200MG/ML 4 ML VIAL *FOR ORAL / INH USE ONLY PO SCH (17:17)
[2017-04-03] MEDS: ATORVASTATIN CA 10 MG TABLET (FP) PO SCH (22:07)
[2017-04-03] MEDS: TAMSULOSIN HCL 0.4 MG CAP.ER.24H (FP) PO SCH (22:08)
[2017-04-04] MEDS: ACETYLCYSTEINE 20% 200MG/ML 4 ML VIAL *FOR ORAL / INH USE ONLY PO SCH ×3 (02:31→16:31)
[2017-04-04] MEDS: ALBUTEROL SO4 2.5/IPRATROPIUM 0.5 INH SOL 3 ML VIAL.NEB. NEB SCH ×4 (07:50→20:45)
[2017-04-04 08:45] LABS: CHLORIDE 107 mmol/L (98-107); POTASSIUM 4.6 mmol/L (3.5-5.1); SODIUM 139 mmol/L (136-145)
[2017-04-04 09:00] LABS: ANION GAP 10 (8-16); BLOOD UREA NITROGEN 34 mg/dL (7-18); CALCIUM 7.8 mg/dL (8.5-10.1); CO2 22 mmol/L (21-32); CREATININE 1.2 mg/dL (0.7-1.3); GLUCOSE,RANDOM 107 mg/dL (74-106)
[2017-04-04] MEDS: DULoxetine HCL 30 MG CAPSULE.DR (FP) PO SCH (09:20)
[2017-04-04] MEDS: ISOSORBIDE DINITRATE 20 MG TABLET (FP) PO SCH ×2 (09:20→17:09)
[2017-04-04] MEDS: predniSONE 20 MG TABLET (UD) PO SCH ×2 (09:20→22:29)
[2017-04-04] MEDS: METOPROLOL SUCCINATE 50 MG TAB.SR.24H (FP) PO SCH (09:21)
[2017-04-04] MEDS: BUDESONIDE/FORMETEROL FUMARATE 80/4.5 mcg INHALER IH SCH ×2 (09:21→22:29)
[2017-04-04] MEDS: LISINOPRIL 10 MG TABLET (FP) PO SCH (09:21)
[2017-04-04] MEDS: PREGABALIN 50 MG CAPSULE PO SCH ×2 (09:21→22:29)
[2017-04-04] MEDS: ASPIRIN 81 MG CHEWABLE TABLETS PO SCH (09:21)
[2017-04-04] MEDS: FERROUS SO4 325 MG TABLET (FP) PO SCH (09:22)
[2017-04-04] MEDS: LEVOFLOXACIN 500 MG IVPB 500 MG/100 ML BAG IVPB SCH (09:22)
--- NOTE | 2017-04-04 11:48 | PN ---
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, Physician History of Present Illness: seen and examined today in nad. denies chest pain today. intermittent sob. no overnight events. - Current Medication List Current Medications: Active Medications Acetylcysteine (Mucomyst 20 Oral / Inh Use Only*) 600 mg PO Q12H [facility] Stop: 04/05/17 04:46 Last Admin: 04/04/17 06:21 Dose: Not Given Albuterol Sulfate (Ventolin 0.083% Nebulizer Soln -) 1 amp NEB Q4H PRN PRN Reason: SHORT OF BREATH/WHEEZING Albuterol/Ipratropium (Duoneb -) 1 amp NEB RQID [facility] Last Admin: 04/04/17 07:50 Dose: 1 amp Aspirin (Asa -) 81 mg PO DAILY [facility] Last Admin: 04/04/17 09:21 Dose: 81 mg Atorvastatin Calcium (Lipitor -) 10 mg PO MoWeFr@2200 [facility] Last Admin: 04/03/17 22:07 Dose: 10 mg Budesonide/Formoterol Fumarate (Symbicort 80/4.5mcg -) 2 puff IH BID [facility] Last Admin: 04/04/17 09:21 Dose: 2 puff Duloxetine HCl (Cymbalta -) 60 mg PO DAILY [facility] Last Admin: 04/04/17 09:20 Dose: 60 mg Ferrous Sulfate (Feosol -) 325 mg PO DAILY [facility] Last Admin: 04/04/17 09:22 Dose: 325 mg Furosemide (Lasix -) 20 mg PO DAILY [facility] Last Admin: 04/03/17 09:12 Dose: 20 mg Levofloxacin (Levaquin 500 Mg Premixed Ivpb -) 500 mg in 100 mls @ 100 mls/hr IVPB DAILY [facility] Last Admin: 04/04/17 09:22 Dose: 100 mls/hr Sodium Chloride (Normal Saline -) 1,000 mls @ 75 mls/hr IV ASDIR [facility] Last Admin: 04/03/17 13:36 Dose: 75 mls/hr Isosorbide Dinitrate (Isordil -) 20 mg PO BIDISORDIL [facility] Last Admin: 04/04/17 09:20 Dose: 20 mg Lisinopril (Prinivil) 10 mg PO DAILY [facility] Last Admin: 04/04/17 09:21 Dose: 10 mg Metoprolol Succinate (Toprol Xl -) 50 mg PO DAILY [facility] Last Admin: 04/04/17 09:21 Dose: 50 mg Nitroglycerin (Nitrostat -) 0.4 mg SL Q5M PRN PRN Reason: FOR CHEST PAIN Prednisone (Deltasone -) 40 mg PO BID [facility] Last Admin: 04/04/17 09:20 Dose: 40 mg Pregabalin (Lyrica -) 100 mg PO BID [facility] Last Admin: 04/04/17 09:21 Dose: 100 mg Rivaroxaban (Xarelto -) 20 mg PO DAILY@1800 [facility] Last Admin: 04/03/17 17:17 Dose: 20 mg Tamsulosin HCl (Flomax -) 0.4 mg PO HS [facility] Last Admin: 04/03/17 22:08 Dose: 0.4 mg - Objective Vital Signs: Vital Signs Temperature 98 F 04/04/17 09:00 Pulse Rate 67 04/04/17 09:00 Respiratory Rate 18 04/04/17 09:00 Blood Pressure 150/94 04/04/17 09:00 O2 Sat by Pulse Oximetry (%) 94 L 04/04/17 09:00 Constitutional: Yes: No Distress, Calm Eyes: Yes: Conjunctiva Clear, EOM Intact, PERRL HENT: Yes: Atraumatic, Normocephalic Neck: Yes: Supple, Trachea Midline Cardiovascular: Yes: Pulse Irregular, Murmur, S1, S2. No: Regular Rate and Rhythm, Bradycardia, Tachycardia, Bruit, JVD, Gallop, Rub, S3, S4, Varicosities Respiratory: Yes: Regular, Diminished, On Nasal O2, Rhonchi. No: Rales, SOB, Wheezes Gastrointestinal: Yes: Normal Bowel Sounds, Soft. No: Distention, Tenderness Extremities: Yes: WNL Edema: No Peripheral Pulses WNL: Yes Neurological: Yes: Alert Psychiatric: Yes: Alert Labs: CBC, BMP 04/01/17 07:00 04/04/17 07:09 - ....Imaging Chest X-ray: Report Reviewed, Image Reviewed EKG: Report Reviewed, Image Reviewed Other: Report Reviewed, Image Reviewed (tele-Vpaced, intermittent PVCs) Assessment/Plan 76 year old man with a history of HTN, HLD, Afib, CAD s/p CABG s/p stents, PPM, ICM refused ICD in the past, PAD, Thoracic aortic aneursym, CVA with residual L sided weakness, a/w sob, acute exacerbation of COPD. Plan: 1. SOB-AECOPD:improving -CPAP and IV steroid taper as per pulmonary 2. Chronic systolic CHF with ICM-currently euvolemic -Cont po Lasix, Toprol and BRAULIO-I 3.AF:HR controlled -cont Toprol 50mg daily -Cont Xarelto, if going for cardiac cath today plan to hold this evenings dose 4. Angina: -plan was to have CTA which he did showing stable 4.8cm thoracic aortic aneursym , echo today to evaluate for , and consideration for cardiac cath at [facility] -contacted Dr. Gonzalez at [facility] today who is reviewing case and will get back to me in regards to cardiac cath -cont current medical management for now -discussed plan with pts today
[2017-04-04] MEDS: SODIUM CHLORIDE 1,000 ML IV SCH (12:15)
--- NOTE | 2017-04-04 14:13 | PN ---
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 (short form) - Note 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: PULMONARY Cardiac catheterization deferred for now. States breathing has been stable. Ambulated with . Last Vital Signs Temp Pulse Resp BP Pulse Ox 98 F 67 18 150/94 94 L 04/04/17 09:00 04/04/17 09:00 04/04/17 09:00 04/04/17 09:00 04/04/17 09:00 Gen: NAD at rest Heart: RRR Lung: distant breath sounds, no wheezes Abd: soft, nontender Ext: no edema CBC, BMP 04/01/17 07:00 04/04/17 07:09 Active Medications Acetylcysteine (Mucomyst 20 Oral / Inh Use Only*) 600 mg PO Q12H [facility] Stop: 04/05/17 04:46 Last Admin: 04/04/17 06:21 Dose: Not Given Albuterol Sulfate (Ventolin 0.083% Nebulizer Soln -) 1 amp NEB Q4H PRN PRN Reason: SHORT OF BREATH/WHEEZING Albuterol/Ipratropium (Duoneb -) 1 amp NEB RQID [facility] Last Admin: 04/04/17 07:50 Dose: 1 amp Aspirin (Asa -) 81 mg PO DAILY [facility] Last Admin: 04/04/17 09:21 Dose: 81 mg Atorvastatin Calcium (Lipitor -) 10 mg PO MoWeFr@2200 [facility] Last Admin: 04/03/17 22:07 Dose: 10 mg Budesonide/Formoterol Fumarate (Symbicort 80/4.5mcg -) 2 puff IH BID [facility] Last Admin: 04/04/17 09:21 Dose: 2 puff Duloxetine HCl (Cymbalta -) 60 mg PO DAILY [facility] Last Admin: 04/04/17 09:20 Dose: 60 mg Ferrous Sulfate (Feosol -) 325 mg PO DAILY [facility] Last Admin: 04/04/17 09:22 Dose: 325 mg Furosemide (Lasix -) 20 mg PO DAILY [facility] Last Admin: 04/03/17 09:12 Dose: 20 mg Levofloxacin (Levaquin 500 Mg Premixed Ivpb -) 500 mg in 100 mls @ 100 mls/hr IVPB DAILY [facility] Last Admin: 04/04/17 09:22 Dose: 100 mls/hr Sodium Chloride (Normal Saline -) 1,000 mls @ 75 mls/hr IV ASDIR [facility] Last Admin: 04/04/17 12:15 Dose: 75 mls/hr Isosorbide Dinitrate (Isordil -) 20 mg PO BIDISORDIL [facility] Last Admin: 04/04/17 09:20 Dose: 20 mg Lisinopril (Prinivil) 10 mg PO DAILY [facility] Last Admin: 04/04/17 09:21 Dose: 10 mg Metoprolol Succinate (Toprol Xl -) 50 mg PO DAILY [facility] Last Admin: 04/04/17 09:21 Dose: 50 mg Nitroglycerin (Nitrostat -) 0.4 mg SL Q5M PRN PRN Reason: FOR CHEST PAIN Prednisone (Deltasone -) 40 mg PO BID [facility] Last Admin: 04/04/17 09:20 Dose: 40 mg Pregabalin (Lyrica -) 100 mg PO BID [facility] Last Admin: 04/04/17 09:21 Dose: 100 mg Rivaroxaban (Xarelto -) 20 mg PO DAILY@1800 [facility] Last Admin: 04/03/17 17:17 Dose: 20 mg Tamsulosin HCl (Flomax -) 0.4 mg PO HS [facility] Last Admin: 04/03/17 22:08 Dose: 0.4 mg A/P Acute COPD Exacerbation Chronic Hypoxic Respiratory Failure CAD s/p CABG Atrial Fibrillation LV Systolic Dysfunction Acute Kidney Injury improving - can decrease prednisone to daily dosing in AM - inhaled bronchodilators - O2 to keep SpO2 >90% - rate controlled - continue anticoagulation
--- NOTE | 2017-04-04 15:56 | PN ---
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, Physician History of Present Illness: Pt seen and examined at bedside. He is awake and alert. He denies chest pain. - Current Medication List Current Medications: Active Medications Acetylcysteine (Mucomyst 20 Oral / Inh Use Only*) 600 mg PO Q12H [facility] Stop: 04/05/17 04:46 Last Admin: 04/04/17 06:21 Dose: Not Given Albuterol Sulfate (Ventolin 0.083% Nebulizer Soln -) 1 amp NEB Q4H PRN PRN Reason: SHORT OF BREATH/WHEEZING Albuterol/Ipratropium (Duoneb -) 1 amp NEB RQID [facility] Last Admin: 04/04/17 07:50 Dose: 1 amp Aspirin (Asa -) 81 mg PO DAILY [facility] Last Admin: 04/04/17 09:21 Dose: 81 mg Atorvastatin Calcium (Lipitor -) 10 mg PO MoWeFr@2200 [facility] Last Admin: 04/03/17 22:07 Dose: 10 mg Budesonide/Formoterol Fumarate (Symbicort 80/4.5mcg -) 2 puff IH BID [facility] Last Admin: 04/04/17 09:21 Dose: 2 puff Duloxetine HCl (Cymbalta -) 60 mg PO DAILY [facility] Last Admin: 04/04/17 09:20 Dose: 60 mg Ferrous Sulfate (Feosol -) 325 mg PO DAILY [facility] Last Admin: 04/04/17 09:22 Dose: 325 mg Furosemide (Lasix -) 20 mg PO DAILY [facility] Last Admin: 04/03/17 09:12 Dose: 20 mg Levofloxacin (Levaquin 500 Mg Premixed Ivpb -) 500 mg in 100 mls @ 100 mls/hr IVPB DAILY [facility] Last Admin: 04/04/17 09:22 Dose: 100 mls/hr Sodium Chloride (Normal Saline -) 1,000 mls @ 75 mls/hr IV ASDIR [facility] Last Admin: 04/04/17 12:15 Dose: 75 mls/hr Isosorbide Dinitrate (Isordil -) 20 mg PO BIDISORDIL [facility] Last Admin: 04/04/17 09:20 Dose: 20 mg Lisinopril (Prinivil) 10 mg PO DAILY [facility] Last Admin: 04/04/17 09:21 Dose: 10 mg Metoprolol Succinate (Toprol Xl -) 50 mg PO DAILY [facility] Last Admin: 04/04/17 09:21 Dose: 50 mg Nitroglycerin (Nitrostat -) 0.4 mg SL Q5M PRN PRN Reason: FOR CHEST PAIN Prednisone (Deltasone -) 40 mg PO BID [facility] Stop: 04/05/17 10:00 Last Admin: 04/04/17 09:20 Dose: 40 mg Prednisone (Deltasone -) 40 mg PO DAILY [facility] Pregabalin (Lyrica -) 100 mg PO BID [facility] Last Admin: 04/04/17 09:21 Dose: 100 mg Rivaroxaban (Xarelto -) 20 mg PO DAILY@1800 [facility] Last Admin: 04/03/17 17:17 Dose: 20 mg Tamsulosin HCl (Flomax -) 0.4 mg PO HS [facility] Last Admin: 04/03/17 22:08 Dose: 0.4 mg - Objective Vital Signs: Vital Signs Temperature 99.0 F 04/04/17 14:45 Pulse Rate 79 04/04/17 14:45 Respiratory Rate 18 04/04/17 14:45 Blood Pressure 122/69 04/04/17 14:45 O2 Sat by Pulse Oximetry (%) 94 L 04/04/17 09:00 Constitutional: Yes: Calm Eyes: Yes: Conjunctiva Clear HENT: Yes: Atraumatic Neck: Yes: Supple Cardiovascular: Yes: S1, S2 Respiratory: Yes: On Nasal O2 Gastrointestinal: Yes: Soft Genitourinary: Yes: WNL Musculoskeletal: Yes: WNL Edema: No Neurological: Yes: Oriented Psychiatric: Yes: Oriented Labs: CBC, BMP 04/01/17 07:00 04/04/17 07:09 Problem List - Problems (1) CKD (chronic kidney disease) Code(s): N18.9 - CHRONIC KIDNEY DISEASE, UNSPECIFIED Qualifiers: Chronic kidney disease stage: stage 3 (moderate) Qualified Code(s): N18.3 - Chronic kidney disease, stage 3 (moderate) (2) COPD exacerbation Code(s): J44.1 - CHRONIC OBSTRUCTIVE PULMONARY DISEASE W (ACUTE) EXACERBATION (3) Abdominal pain Code(s): R10.9 - UNSPECIFIED ABDOMINAL PAIN Qualifiers: Abdominal location: left lower quadrant Qualified Code(s): R10.32 - Left lower quadrant pain (4) COPD (chronic obstructive pulmonary disease) Code(s): J44.9 - CHRONIC OBSTRUCTIVE PULMONARY DISEASE, UNSPECIFIED Qualifiers: COPD type: COPD with acute exacerbation Qualified Code(s): J44.1 - Chronic obstructive pulmonary disease with (acute) exacerbation Assessment/Plan Current Medications Generic Name Dose Route Start Last Admin Trade Name Freq PRN Reason Stop Dose Admin Acetylcysteine 600 mg 04/03/17 16:45 04/04/17 06:21 Mucomyst 20 Oral / Inh Use Only* PO 04/05/17 04:46 Not Given Q12H [facility] Albuterol Sulfate 1 amp 03/30/17 21:51 Ventolin 0.083% Nebulizer Soln - NEB Q4H PRN SHORT OF BREATH/WHEEZING Albuterol/Ipratropium 1 amp 04/02/17 09:02 04/04/17 07:50 Duoneb - NEB 1 amp RQID [facility] Administration Aspirin 81 mg 04/02/17 16:15 04/04/17 09:21 Asa - PO 81 mg DAILY [facility] Administration Atorvastatin Calcium 10 mg 03/29/17 22:00 04/03/17 22:07 Lipitor - PO 10 mg MoWeFr@2200 [facility] Administration Budesonide/Formoterol Fumarate 2 puff 03/28/17 22:00 04/04/17 09:21 Symbicort 80/4.5mcg - IH 2 puff BID [facility] Administration Duloxetine HCl 60 mg 03/29/17 10:00 04/04/17 09:20 Cymbalta - PO 60 mg DAILY [facility] Administration Ferrous Sulfate 325 mg 03/29/17 10:00 04/04/17 09:22 Feosol - PO 325 mg DAILY [facility] Administration Furosemide 20 mg 03/29/17 10:00 04/03/17 09:12 Lasix - PO 20 mg DAILY [facility] Administration Levofloxacin 500 mg in 100 mls @ 100 mls/hr 03/29/17 10:00 04/04/17 09:22 Levaquin 500 Mg Premixed Ivpb - IVPB 100 mls/hr DAILY [facility] Administration Sodium Chloride 1,000 mls @ 75 mls/hr 04/03/17 11:15 04/04/17 12:15 Normal Saline - IV 75 mls/hr ASDIR [facility] Administration Isosorbide Dinitrate 20 mg 04/03/17 10:00 04/04/17 09:20 Isordil - PO 20 mg BIDISORDIL [facility] Administration Lisinopril 10 mg 03/29/17 10:00 04/04/17 09:21 Prinivil PO 10 mg DAILY [facility] Administration Metoprolol Succinate 50 mg 03/29/17 10:00 04/04/17 09:21 Toprol Xl - PO 50 mg DAILY [facility] Administration Nitroglycerin 0.4 mg 04/02/17 16:08 Nitrostat - SL Q5M PRN FOR CHEST PAIN Prednisone 40 mg 04/02/17 10:00 04/04/17 09:20 Deltasone - PO 04/05/17 10:00 40 mg BID [facility] Administration Prednisone 40 mg 04/05/17 10:00 Deltasone - PO DAILY [facility] Pregabalin 100 mg 03/29/17 21:29 04/04/17 09:21 Lyrica - PO 100 mg BID [facility] Administration Rivaroxaban 20 mg 03/29/17 18:00 04/03/17 17:17 Xarelto - PO 20 mg DAILY@1800 [facility] Administration Tamsulosin HCl 0.4 mg 03/29/17 22:00 04/03/17 22:08 Flomax - PO 0.4 mg HS [facility] Administration Impression 1. CKD 2. shortness of breath 3. AAA 4. hx CVA 5. a-fib 6. HTN 7. insomnia 8. COPD on home oxygen 9. CAD 10. BPH 12. microscopic hematuria Plan - cardio input appreciated - pt went for ct angio yesterday - can stop fluids today - repeat lab sin am - will follow - steroids with taper - ckd workup can be done as outpt
[2017-04-04] MEDS: RIVAROXABAN 20 MG TABLET PO SCH (17:09)
--- NOTE | 2017-04-04 19:21 | PN ---
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, Physician Chief Complaint: AWAKE ALERT CT SCAN REVIEWED NO ACUTE CHANGES BEDSIDE D/W CARDIOLOGY WILL NOT NEED CARDIAC CATH AT THIS TIME CONSIDERED TO HIGH RISK AT THIS TIME DC PLANNING TOMORROW - Current Medication List Current Medications: Active Medications Acetylcysteine (Mucomyst 20 Oral / Inh Use Only*) 600 mg PO Q12H [facility] Stop: 04/05/17 04:46 Last Admin: 04/04/17 16:31 Dose: 600 mg Albuterol Sulfate (Ventolin 0.083% Nebulizer Soln -) 1 amp NEB Q4H PRN PRN Reason: SHORT OF BREATH/WHEEZING Albuterol/Ipratropium (Duoneb -) 1 amp NEB RQID [facility] Last Admin: 04/04/17 16:10 Dose: 1 amp Aspirin (Asa -) 81 mg PO DAILY [facility] Last Admin: 04/04/17 09:21 Dose: 81 mg Atorvastatin Calcium (Lipitor -) 10 mg PO MoWeFr@2200 [facility] Last Admin: 04/03/17 22:07 Dose: 10 mg Budesonide/Formoterol Fumarate (Symbicort 80/4.5mcg -) 2 puff IH BID [facility] Last Admin: 04/04/17 09:21 Dose: 2 puff Duloxetine HCl (Cymbalta -) 60 mg PO DAILY [facility] Last Admin: 04/04/17 09:20 Dose: 60 mg Ferrous Sulfate (Feosol -) 325 mg PO DAILY [facility] Last Admin: 04/04/17 09:22 Dose: 325 mg Furosemide (Lasix -) 20 mg PO DAILY [facility] Last Admin: 04/03/17 09:12 Dose: 20 mg Levofloxacin (Levaquin 500 Mg Premixed Ivpb -) 500 mg in 100 mls @ 100 mls/hr IVPB DAILY [facility] Last Admin: 04/04/17 09:22 Dose: 100 mls/hr Isosorbide Dinitrate (Isordil -) 20 mg PO BIDISORDIL [facility] Last Admin: 04/04/17 17:09 Dose: 20 mg Lisinopril (Prinivil) 10 mg PO DAILY [facility] Last Admin: 04/04/17 09:21 Dose: 10 mg Metoprolol Succinate (Toprol Xl -) 50 mg PO DAILY [facility] Last Admin: 04/04/17 09:21 Dose: 50 mg Nitroglycerin (Nitrostat -) 0.4 mg SL Q5M PRN PRN Reason: FOR CHEST PAIN Prednisone (Deltasone -) 40 mg PO BID [facility] Stop: 04/05/17 10:00 Last Admin: 04/04/17 09:20 Dose: 40 mg Prednisone (Deltasone -) 40 mg PO DAILY [facility] Pregabalin (Lyrica -) 100 mg PO BID [facility] Last Admin: 04/04/17 09:21 Dose: 100 mg Rivaroxaban (Xarelto -) 20 mg PO DAILY@1800 [facility] Last Admin: 04/04/17 17:09 Dose: 20 mg Tamsulosin HCl (Flomax -) 0.4 mg PO HS [facility] Last Admin: 04/03/17 22:08 Dose: 0.4 mg - Objective Vital Signs: Vital Signs Temperature 98.8 F 04/04/17 17:00 Pulse Rate 76 04/04/17 17:00 Respiratory Rate 18 04/04/17 17:00 Blood Pressure 152/95 04/04/17 17:00 O2 Sat by Pulse Oximetry (%) 94 L 04/04/17 09:00 Constitutional: Yes: No Distress, Mild Distress Eyes: Yes: WNL HENT: Yes: WNL Neck: Yes: WNL Cardiovascular: Yes: WNL Respiratory: Yes: WNL Gastrointestinal: Yes: WNL Genitourinary: Yes: WNL Musculoskeletal: Yes: WNL Extremities: Yes: WNL Edema: Yes Wound/Incision: Yes: Clean/Dry Neurological: Yes: WNL ...Motor Strength: WNL Psychiatric: Yes: WNL Labs: CBC, BMP 04/01/17 07:00 04/04/17 07:09 Problem List - Problems (1) CKD (chronic kidney disease) Code(s): N18.9 - CHRONIC KIDNEY DISEASE, UNSPECIFIED Qualifiers: Chronic kidney disease stage: stage 3 (moderate) Qualified Code(s): N18.3 - Chronic kidney disease, stage 3 (moderate) (2) COPD exacerbation Code(s): J44.1 - CHRONIC OBSTRUCTIVE PULMONARY DISEASE W (ACUTE) EXACERBATION (3) COPD (chronic obstructive pulmonary disease) Code(s): J44.9 - CHRONIC OBSTRUCTIVE PULMONARY DISEASE, UNSPECIFIED Qualifiers: COPD type: COPD with acute exacerbation Qualified Code(s): J44.1 - Chronic obstructive pulmonary disease with (acute) exacerbation (4) History of aortic aneurysm repair Code(s): Z98.890 - OTHER SPECIFIED POSTPROCEDURAL STATES; Z86.79 - PERSONAL HISTORY OF OTHER DISEASES OF THE CIRCULATORY SYSTEM (5) History of arterial bypass of lower extremity Code(s): Z95.828 - PRESENCE OF OTHER VASCULAR IMPLANTS AND GRAFTS (6) Hx of CABG Code(s): Z95.1 - PRESENCE OF AORTOCORONARY BYPASS GRAFT (7) Hypertension Code(s): I10 - ESSENTIAL (PRIMARY) HYPERTENSION Qualifiers: Hypertension type: essential hypertension Qualified Code(s): I10 - Essential (primary) hypertension (8) Presence of cardiac pacemaker Code(s): Z95.0 - PRESENCE OF CARDIAC PACEMAKER (9) Stented coronary artery Code(s): Z95.5 - PRESENCE OF CORONARY ANGIOPLASTY IMPLANT AND GRAFT Assessment/Plan CARDIAC CATH CONSIDERED HIGH RISK WILL NEED MEDICAL MANAGMENT OOB TO CHAIR PT EVAL CT SCAN NO ACUTE CHANGES OF AORTIC ARCH
[2017-04-04] MEDS: TAMSULOSIN HCL 0.4 MG CAP.ER.24H (FP) PO SCH (22:29)
[2017-04-05] MEDS: ACETYLCYSTEINE 20% 200MG/ML 4 ML VIAL *FOR ORAL / INH USE ONLY PO SCH (05:30)
[2017-04-05 06:44] VITALS: TEMP 98
[2017-04-05 06:54] LABS: ANION GAP 11 (8-16); BLOOD UREA NITROGEN 32 mg/dL (7-18); CALCIUM 8.5 mg/dL (8.5-10.1); CHLORIDE 103 mmol/L (98-107); CO2 25 mmol/L (21-32); CREATININE 1.2 mg/dL (0.7-1.3); GLUCOSE,RANDOM 103 mg/dL (74-106); POTASSIUM 4.9 mmol/L (3.5-5.1); SODIUM 139 mmol/L (136-145)
[2017-04-05] MEDS: ALBUTEROL SO4 2.5/IPRATROPIUM 0.5 INH SOL 3 ML VIAL.NEB. NEB SCH ×2 (08:00→11:44)
[2017-04-05 09:06] VITALS: BP 146/79; PULSE 73
--- NOTE | 2017-04-05 09:39 | PN ---
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, Physician Chief Complaint: CTA showed no change in ascending aortic aneurysm Deemed to high risk for cath by interventional cardiology on the basis of severe PAD, multiple aneurysms, calcific disease, CKD placing him at elevated risk for CVA, embolization or ARF History of Present Illness: no further CP - Current Medication List Current Medications: Active Medications Albuterol/Ipratropium (Duoneb -) 1 amp NEB RQID [facility] Last Admin: 04/04/17 20:45 Dose: 1 amp Aspirin (Asa -) 81 mg PO DAILY [facility] Last Admin: 04/04/17 09:21 Dose: 81 mg Atorvastatin Calcium (Lipitor -) 10 mg PO MoWeFr@2200 [facility] Last Admin: 04/03/17 22:07 Dose: 10 mg Budesonide/Formoterol Fumarate (Symbicort 80/4.5mcg -) 2 puff IH BID [facility] Last Admin: 04/04/17 22:29 Dose: 2 puff Duloxetine HCl (Cymbalta -) 60 mg PO DAILY [facility] Last Admin: 04/04/17 09:20 Dose: 60 mg Ferrous Sulfate (Feosol -) 325 mg PO DAILY [facility] Last Admin: 04/04/17 09:22 Dose: 325 mg Furosemide (Lasix -) 20 mg PO DAILY [facility] Last Admin: 04/03/17 09:12 Dose: 20 mg Levofloxacin (Levaquin 500 Mg Premixed Ivpb -) 500 mg in 100 mls @ 100 mls/hr IVPB DAILY [facility] Last Admin: 04/04/17 09:22 Dose: 100 mls/hr Isosorbide Dinitrate (Isordil -) 20 mg PO BIDISORDIL [facility] Last Admin: 04/04/17 17:09 Dose: 20 mg Lisinopril (Prinivil) 10 mg PO DAILY [facility] Last Admin: 04/04/17 09:21 Dose: 10 mg Metoprolol Succinate (Toprol Xl -) 50 mg PO DAILY [facility] Last Admin: 04/04/17 09:21 Dose: 50 mg Nitroglycerin (Nitrostat -) 0.4 mg SL Q5M PRN PRN Reason: FOR CHEST PAIN Prednisone (Deltasone -) 40 mg PO BID [facility] Stop: 04/05/17 10:00 Last Admin: 04/04/17 22:29 Dose: 40 mg Prednisone (Deltasone -) 40 mg PO DAILY [facility] Pregabalin (Lyrica -) 100 mg PO BID [facility] Last Admin: 04/04/17 22:29 Dose: 100 mg Rivaroxaban (Xarelto -) 20 mg PO DAILY@1800 [facility] Last Admin: 04/04/17 17:09 Dose: 20 mg Tamsulosin HCl (Flomax -) 0.4 mg PO HS [facility] Last Admin: 04/04/17 22:29 Dose: 0.4 mg - Objective Vital Signs: Vital Signs Temperature 98 F 04/05/17 06:00 Pulse Rate 73 04/05/17 09:02 Respiratory Rate 18 04/05/17 06:00 Blood Pressure 146/79 04/05/17 09:02 O2 Sat by Pulse Oximetry (%) 94 L 04/04/17 22:00 Constitutional: Yes: No Distress, Calm Eyes: Yes: Conjunctiva Clear, EOM Intact Cardiovascular: Yes: Pulse Irregular Respiratory: Yes: Other (decreased breath sounds c/w COPD) Gastrointestinal: Yes: Soft Edema: No Neurological: Yes: Alert Labs: CBC, BMP 04/01/17 07:00 04/05/17 06:15 Laboratory Tests 04/02/17 04/05/17 21:20 06:15 Sodium 139 Creatinine 1.2 Troponin I < 0.02 - ....Imaging EKG: Image Reviewed (paced, rare VPCs) Assessment/Plan Assessment/Plan 76 year old man with a history of HTN, HLD, Afib, CAD s/p CABG s/p stents, PPM, ICM refused ICD in the past, PAD, Thoracic aortic aneursym, CVA with residual L sided weakness, a/w sob, acute exacerbation of COPD. Plan: 1. SOB-AECOPD:improved -CPAP and IV steroid taper as per pulmonary 2. Chronic systolic CHF with ICM-currently euvolemic -Cont po Lasix, Toprol and BRAULIO-I 3.AF:HR controlled -cont Toprol 50mg daily -Cont Xarelto 4. Angina: -cont current medical management. Deemed too high risk for cath due to CKD, Aneurysms, diffuse aortic calcific disease 5. Thoracic aneurysm: -Stable at 4.8/4.9 on CTA. Not at surgical size, also a very high risk candidate for surgery. -Continue medical Rx, BP control, beta blockers and f/u CTA in 6-9 months
[2017-04-05] MEDS ORDERED: predniSONE 20 MG TABLET (UD) PO SCH ×2 (10:00→11:30)
[2017-04-05] MEDS: PREGABALIN 50 MG CAPSULE PO SCH (10:08)
[2017-04-05] MEDS: DULoxetine HCL 30 MG CAPSULE.DR (FP) PO SCH (10:08)
[2017-04-05] MEDS: predniSONE 20 MG TABLET (UD) PO SCH (10:08)
[2017-04-05] MEDS: FERROUS SO4 325 MG TABLET (FP) PO SCH (10:08)
[2017-04-05] MEDS: ISOSORBIDE DINITRATE 20 MG TABLET (FP) PO SCH (10:08)
[2017-04-05] MEDS: ASPIRIN 81 MG CHEWABLE TABLETS PO SCH (10:08)
[2017-04-05] MEDS: BUDESONIDE/FORMETEROL FUMARATE 80/4.5 mcg INHALER IH SCH (10:10)
[2017-04-05] MEDS: LISINOPRIL 10 MG TABLET (FP) PO SCH (10:11)
[2017-04-05] MEDS: METOPROLOL SUCCINATE 50 MG TAB.SR.24H (FP) PO SCH (10:11)
[2017-04-05] MEDS ORDERED: PT OWN MED DRAWER 7, Y5N ONE (10:11)
--- NOTE | 2017-04-05 11:22 | PN ---
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, Physician History of Present Illness: PULMONARY AWAKE, ALERT NAD. PT W/O CP,-SOB - Current Medication List Current Medications: Active Medications Albuterol/Ipratropium (Duoneb -) 1 amp NEB RQID [facility] Last Admin: 04/05/17 08:00 Dose: 1 amp Aspirin (Asa -) 81 mg PO DAILY [facility] Last Admin: 04/05/17 10:08 Dose: 81 mg Atorvastatin Calcium (Lipitor -) 10 mg PO MoWeFr@2200 [facility] Last Admin: 04/03/17 22:07 Dose: 10 mg Budesonide/Formoterol Fumarate (Symbicort 80/4.5mcg -) 2 puff IH BID [facility] Last Admin: 04/05/17 10:10 Dose: 2 puff Duloxetine HCl (Cymbalta -) 60 mg PO DAILY [facility] Last Admin: 04/05/17 10:08 Dose: 60 mg Ferrous Sulfate (Feosol -) 325 mg PO DAILY [facility] Last Admin: 04/05/17 10:08 Dose: 325 mg Furosemide (Lasix -) 20 mg PO DAILY [facility] Last Admin: 04/03/17 09:12 Dose: 20 mg Isosorbide Dinitrate (Isordil -) 20 mg PO BIDISORDIL [facility] Last Admin: 04/05/17 10:08 Dose: 20 mg Lisinopril (Prinivil) 10 mg PO DAILY [facility] Last Admin: 04/05/17 10:11 Dose: 10 mg Metoprolol Succinate (Toprol Xl -) 50 mg PO DAILY [facility] Last Admin: 04/05/17 10:11 Dose: 50 mg Nitroglycerin (Nitrostat -) 0.4 mg SL Q5M PRN PRN Reason: FOR CHEST PAIN Pregabalin (Lyrica -) 100 mg PO BID [facility] Last Admin: 04/05/17 10:08 Dose: 100 mg Rivaroxaban (Xarelto -) 20 mg PO DAILY@1800 [facility] Last Admin: 04/04/17 17:09 Dose: 20 mg Tamsulosin HCl (Flomax -) 0.4 mg PO HS [facility] Last Admin: 04/04/17 22:29 Dose: 0.4 mg - Objective Vital Signs: Vital Signs Temperature 98 F 04/05/17 06:00 Pulse Rate 73 04/05/17 09:02 Respiratory Rate 18 04/05/17 06:00 Blood Pressure 146/79 01/12/18 09:02 O2 Sat by Pulse Oximetry (%) 94 L 04/04/17 22:00 Constitutional: Yes: Well Nourished, Calm Eyes: Yes: WNL HENT: Yes: WNL Neck: Yes: WNL Cardiovascular: Yes: Pulse Irregular, S1, S2 Respiratory: Yes: Diminished Gastrointestinal: Yes: Normal Bowel Sounds, Soft Labs: Problem List - Problems (1) COPD exacerbation Code(s): J44.1 - CHRONIC OBSTRUCTIVE PULMONARY DISEASE W (ACUTE) EXACERBATION (2) Azotemia Code(s): R79.89 - OTHER SPECIFIED ABNORMAL FINDINGS OF BLOOD CHEMISTRY (3) COPD (chronic obstructive pulmonary disease) Code(s): J44.9 - CHRONIC OBSTRUCTIVE PULMONARY DISEASE, UNSPECIFIED Qualifiers: COPD type: COPD with acute exacerbation Qualified Code(s): J44.1 - Chronic obstructive pulmonary disease with (acute) exacerbation (4) Chronic respiratory failure with hypoxia Code(s): J96.11 - CHRONIC RESPIRATORY FAILURE WITH HYPOXIA (5) History of aortic aneurysm repair Code(s): Z98.890 - OTHER SPECIFIED POSTPROCEDURAL STATES; Z86.79 - PERSONAL HISTORY OF OTHER DISEASES OF THE CIRCULATORY SYSTEM (6) Afib Code(s): I48.91 - UNSPECIFIED ATRIAL FIBRILLATION (7) CAD (coronary artery disease) Code(s): I25.10 - ATHSCL HEART DISEASE OF [place] CORONARY ARTERY W/O ANG PCTRS (8) History of permanent cardiac pacemaker placement Code(s): Z95.0 - PRESENCE OF CARDIAC PACEMAKER (9) Hx of CABG Code(s): Z95.1 - PRESENCE OF AORTOCORONARY BYPASS GRAFT (10) Hyperlipidemia Code(s): E78.5 - HYPERLIPIDEMIA, UNSPECIFIED Qualifiers: (11) Stented coronary artery Code(s): Z95.5 - PRESENCE OF CORONARY ANGIOPLASTY IMPLANT AND GRAFT (12) Acute kidney injury Code(s): N17.9 - ACUTE KIDNEY FAILURE, UNSPECIFIED Assessment/Plan IMP COPD EXACERBATION IMPROVED CHRONIC HYPOXEMIC RESPIRATORY FAILURE URI ASHD S/P CABG,S/P STENTS CHF AFIB S/P PPM CP ACUTE KIDNEY INJURY IMPROVED S/P CVA HTN S/P AAA REPAIR PLAN PREDNISONE WITH TAPER INHALED BRONCHODILATORS O2 MONITOR LYTES,RENAL FUNCTION AC NITRATES DR JEFFERSON Problem List - Problems (1) COPD exacerbation Code(s): J44.1 - CHRONIC OBSTRUCTIVE PULMONARY DISEASE W (ACUTE) EXACERBATION (2) Azotemia Code(s): R79.89 - OTHER SPECIFIED ABNORMAL FINDINGS OF BLOOD CHEMISTRY (3) COPD (chronic obstructive pulmonary disease) Code(s): J44.9 - CHRONIC OBSTRUCTIVE PULMONARY DISEASE, UNSPECIFIED (4) Chronic respiratory failure with hypoxia Code(s): J96.11 - CHRONIC RESPIRATORY FAILURE WITH HYPOXIA (5) History of aortic aneurysm repair Code(s): Z98.890 - OTHER SPECIFIED POSTPROCEDURAL STATES; Z86.79 - PERSONAL HISTORY OF OTHER DISEASES OF THE CIRCULATORY SYSTEM (6) Afib Code(s): I48.91 - UNSPECIFIED ATRIAL FIBRILLATION (7) CAD (coronary artery disease) Code(s): I25.10 - ATHSCL HEART DISEASE OF [place] CORONARY ARTERY W/O ANG PCTRS (8) History of permanent cardiac pacemaker placement Code(s): Z95.0 - PRESENCE OF CARDIAC PACEMAKER (9) Hx of CABG Code(s): Z95.1 - PRESENCE OF AORTOCORONARY BYPASS GRAFT (10) Hyperlipidemia Code(s): E78.5 - HYPERLIPIDEMIA, UNSPECIFIED Qualifiers: (11) Stented coronary artery Code(s): Z95.5 - PRESENCE OF CORONARY ANGIOPLASTY IMPLANT AND GRAFT (12) Acute kidney injury Code(s): N17.9 - ACUTE KIDNEY FAILURE, UNSPECIFIED
--- NOTE | 2017-04-05 12:43 | PN ---
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, Physician History of Present Illness: Pt seen and examined at bedside. He is awake and appears comfortable. is at bedside and care was discussed with her. - Current Medication List Current Medications: Active Medications Albuterol/Ipratropium (Duoneb -) 1 amp NEB RQID [facility] Last Admin: 04/05/17 11:44 Dose: 1 amp Aspirin (Asa -) 81 mg PO DAILY [facility] Last Admin: 04/05/17 10:08 Dose: 81 mg Atorvastatin Calcium (Lipitor -) 10 mg PO MoWeFr@2200 [facility] Last Admin: 04/03/17 22:07 Dose: 10 mg Budesonide/Formoterol Fumarate (Symbicort 80/4.5mcg -) 2 puff IH BID [facility] Last Admin: 04/05/17 10:10 Dose: 2 puff Duloxetine HCl (Cymbalta -) 60 mg PO DAILY [facility] Last Admin: 04/05/17 10:08 Dose: 60 mg Ferrous Sulfate (Feosol -) 325 mg PO DAILY [facility] Last Admin: 04/05/17 10:08 Dose: 325 mg Furosemide (Lasix -) 20 mg PO DAILY [facility] Last Admin: 04/03/17 09:12 Dose: 20 mg Isosorbide Dinitrate (Isordil -) 20 mg PO BIDISORDIL [facility] Last Admin: 04/05/17 10:08 Dose: 20 mg Lisinopril (Prinivil) 10 mg PO DAILY [facility] Last Admin: 04/05/17 10:11 Dose: 10 mg Metoprolol Succinate (Toprol Xl -) 50 mg PO DAILY [facility] Last Admin: 04/05/17 10:11 Dose: 50 mg Nitroglycerin (Nitrostat -) 0.4 mg SL Q5M PRN PRN Reason: FOR CHEST PAIN Prednisone (Deltasone -) 20 mg PO DAILY [facility] Pregabalin (Lyrica -) 100 mg PO BID [facility] Last Admin: 04/05/17 10:08 Dose: 100 mg Rivaroxaban (Xarelto -) 20 mg PO DAILY@1800 [facility] Last Admin: 04/04/17 17:09 Dose: 20 mg Tamsulosin HCl (Flomax -) 0.4 mg PO HS [facility] Last Admin: 04/04/17 22:29 Dose: 0.4 mg - Objective Vital Signs: Vital Signs Temperature 98 F 04/05/17 06:00 Pulse Rate 73 01/12/18 09:02 Respiratory Rate 18 04/05/17 06:00 Blood Pressure 146/79 04/05/17 09:02 O2 Sat by Pulse Oximetry (%) 94 L 04/05/17 11:43 Constitutional: Yes: Calm Eyes: Yes: Conjunctiva Clear HENT: Yes: Atraumatic Cardiovascular: Yes: S1, S2 Respiratory: Yes: On Nasal O2 Gastrointestinal: Yes: Soft Genitourinary: Yes: WNL Musculoskeletal: Yes: WNL Edema: No Neurological: Yes: Oriented, Pre-Existing Deficit Psychiatric: Yes: Oriented Labs: CBC, BMP 04/01/17 07:00 04/05/17 06:15 Problem List - Problems (1) CKD (chronic kidney disease) Code(s): N18.9 - CHRONIC KIDNEY DISEASE, UNSPECIFIED Qualifiers: Chronic kidney disease stage: stage 3 (moderate) Qualified Code(s): N18.3 - Chronic kidney disease, stage 3 (moderate) (2) COPD exacerbation Code(s): J44.1 - CHRONIC OBSTRUCTIVE PULMONARY DISEASE W (ACUTE) EXACERBATION (3) Abdominal pain Code(s): R10.9 - UNSPECIFIED ABDOMINAL PAIN Qualifiers: Abdominal location: left lower quadrant Qualified Code(s): R10.32 - Left lower quadrant pain (4) COPD (chronic obstructive pulmonary disease) Code(s): J44.9 - CHRONIC OBSTRUCTIVE PULMONARY DISEASE, UNSPECIFIED Qualifiers: COPD type: COPD with acute exacerbation Qualified Code(s): J44.1 - Chronic obstructive pulmonary disease with (acute) exacerbation Assessment/Plan Current Medications Generic Name Dose Route Start Last Admin Trade Name Nicolasq PRN Reason Stop Dose Admin Albuterol/Ipratropium 1 amp 04/02/17 09:02 04/05/17 11:44 Duoneb - NEB 1 amp RQID DIANNE Administration Aspirin 81 mg 04/02/17 16:15 04/05/17 10:08 Asa - PO 81 mg DAILY DIANNE Administration Atorvastatin Calcium 10 mg 03/29/17 22:00 04/03/17 22:07 Lipitor - PO 10 mg MoWeFr@2200 DIANNE Administration Budesonide/Formoterol Fumarate 2 puff 03/28/17 22:00 04/05/17 10:10 Symbicort 80/4.5mcg - IH 2 puff BID DIANNE Administration Duloxetine HCl 60 mg 01/05/18 10:00 04/05/17 10:08 Cymbalta - PO 60 mg DAILY DIANNE Administration Ferrous Sulfate 325 mg 03/29/17 10:00 04/05/17 10:08 Feosol - PO 325 mg DAILY DIANNE Administration Furosemide 20 mg 03/29/17 10:00 04/03/17 09:12 Lasix - PO 20 mg DAILY DIANNE Administration Isosorbide Dinitrate 20 mg 04/03/17 10:00 04/05/17 10:08 Isordil - PO 20 mg BIDISORDIL DIANNE Administration Lisinopril 10 mg 03/29/17 10:00 04/05/17 10:11 Prinivil PO 10 mg DAILY DIANNE Administration Metoprolol Succinate 50 mg 03/29/17 10:00 04/05/17 10:11 Toprol Xl - PO 50 mg DAILY DIANNE Administration Nitroglycerin 0.4 mg 04/02/17 16:08 Nitrostat - SL Q5M PRN FOR CHEST PAIN Prednisone 20 mg 04/05/17 11:30 Deltasone - PO DAILY [facility] Pregabalin 100 mg 03/29/17 21:29 04/05/17 10:08 Lyrica - PO 100 mg BID DIANNE Administration Rivaroxaban 20 mg 03/29/17 18:00 04/04/17 17:09 Xarelto - PO 20 mg DAILY@1800 DIANNE Administration Tamsulosin HCl 0.4 mg 03/29/17 22:00 04/04/17 22:29 Flomax - PO 0.4 mg HS DIANNE Administration Laboratory Tests 04/02/17 04/03/17 04/04/17 06:50 07:09 07:09 Creatinine 1.3 1.3 1.2 04/05/17 06:15 Creatinine 1.2 Impression 1. CKD 2. shortness of breath 3. AAA 4. hx CVA 5. a-fib 6. HTN 7. insomnia 8. COPD on home oxygen 9. CAD 10. BPH 12. microscopic hematuria Plan - monitor renal function - will need outpt follow up - family do not want any further workup for microscopic hematuria, pt was evaluate in the past by urology (per ) - cardiology input appreciated - steroid taper per pulm - CKD workup as outpt - will follow PRN Dr Cassidy
--- NOTE | 2017-04-05 13:56 | DS ---
Physical Examination Vital Signs: Vital Signs Temperature 98 F 04/05/17 06:00 Pulse Rate 73 04/05/17 09:02 Respiratory Rate 18 04/05/17 06:00 Blood Pressure 146/79 04/05/17 09:02 O2 Sat by Pulse Oximetry (%) 94 L 04/05/17 11:43 Constitutional: Yes: No Distress Eyes: Yes: WNL HENT: Yes: WNL Neck: Yes: WNL Cardiovascular: Yes: WNL Respiratory: Yes: WNL Gastrointestinal: Yes: WNL Renal/: Yes: WNL Musculoskeletal: Yes: WNL Extremities: Yes: WNL Edema: Yes Peripheral Pulses WNL: Yes Integumentary: Yes: WNL Wound/Incision: Yes: Clean/Dry Neurological: Yes: WNL ...Motor Strength: WNL Psychiatric: Yes: WNL Labs: CBC, BMP 04/01/17 07:00 04/05/17 06:15 Discharge Summary Reason For Visit: OBSTRUCTIVE CHRONIC BRONCHITIS W EXACERBATION Current Active Problems Acute kidney injury (Acute) CKD (chronic kidney disease) (Acute) COPD exacerbation (Acute) Procedures: Principal: IV LASIX AND NEBS Hospital Course: ADMITTED IV LASIX, NEBS, CARDIO WORKUP 02 SUPPORT WILL DC HOME WITHCARDIO PLAN OUTPATIENT NOT A CANDIDATE FOR CARDIAC CATH AT THIS TIME - Instructions Diet, Activity, Other Instructions: SEE DR KHAN 1-2 WEEKS LOW SALT DIET Disposition: HOME - Home Medications Comprehensive Discharge Medication List: Ambulatory Orders Budesonide/Formeterol Fumarate [SYMBICORT 160/4.5mcg -] 2 inh PO BID 04/22/16 Ferrous Sulfate 325 mg PO DAILY 04/22/16 Metoprolol Succinate [Toprol Xl] 50 mg PO DAILY 04/22/16 Pregabalin [Lyrica] 100 mg PO BID 04/22/16 Tamsulosin HCl [Flomax] 0.4 mg PO HS 04/22/16 Mineral Oil/Pet Hy-Phl [Aquaphor -] 1 applic TP BID PRN 07/31/16 Lisinopril [Prinivil] 10 mg PO DAILY tablet 08/02/16 Albuterol 0.083% Nebulizer Suki [Ventolin 0.083% Nebulizer Soln -] 1 amp NEB Q8H 09/21/16 Duloxetine HCl [Cymbalta] 60 mg PO DAILY 09/28/16 Furosemide [Lasix -] 20 mg PO DAILY 12/04/16 Fluocinonide 0.05% Cream [Lidex 0.05% Cream -] 1 applic TP DAILY #120 tube 01/11 Metoprolol Succinate [Toprol XL -] 25 mg PO DAILY #30 tab.sr.24h 01/11/17 Nystatin/Triamcinolone Top Cr [Mycolog II -] 3 applic TP BID #120 applic Albuterol 0.083% Nebulizer Suki [Ventolin 0.083% Nebulizer Soln -] 1 amp NEB Q4H PRN #120 amp 04/05/17 Aspirin [ASA -] 81 mg PO DAILY tab.chew 04/05/17 Atorvastatin Ca [Lipitor] 10 mg PO MoWeFr@2200 #30 tablet 04/05/17 Budesonide/Formeterol Fumarate [SYMBICORT 80/4.5mcg -] 2 puff IH BID #1 inhaler 04/05/17 Isosorbide Dinitrate [Isordil -] 20 mg PO BIDISORDIL #30 tablet 04/05/17 Nitroglycerin Sublingual [Nitrostat -] 0.4 mg SL Q5M PRN #100 tab 04/05/17 Prednisone [Deltasone -] 20 mg PO DAILY #10 tablet 04/05/17 Rivaroxaban [Xarelto -] 20 mg PO DAILY@1800 #30 tablet 04/05/17
== END 2017-04-05 14:51 | disposition home or self-care (01) | DRG 191 ==
LOC: JER 06:53 → JERBED 10:42 → J6S 03-29 16:50 → J4W 03-30 23:14
PROVIDERS: ADMIT Family Medicine; ATTEND Family Medicine
PROC: 5A09357 Assistance with Respiratory Ventilation, Less than 24 Consecutive Hours, Continuous Positive Airway Pressure (ICD-10-PCS; principal; 2017-03-30)
DX: J44.1 Chronic obstructive pulmonary disease with (acute) exacerbation (principal); I69.354 Hemiplegia and hemiparesis following cerebral infarction affecting left non-dominant side; N17.9 Acute kidney failure, unspecified; J96.11 Chronic respiratory failure with hypoxia; I13.0 Hypertensive heart and chronic kidney disease with heart failure and stage 1 through stage 4 chronic kidney disease, or unspecified chronic kidney disease; I50.22 Chronic systolic (congestive) heart failure; I25.118 Atherosclerotic heart disease of native coronary artery with other forms of angina pectoris; N18.3 Chronic kidney disease, stage 3 (moderate); I48.91 Unspecified atrial fibrillation; G47.09 Other insomnia; E78.5 Hyperlipidemia, unspecified; R10.32 Left lower quadrant pain; N40.0 Benign prostatic hyperplasia without lower urinary tract symptoms; J06.9 Acute upper respiratory infection, unspecified; I71.2 Thoracic aortic aneurysm, without rupture; I73.89 Other specified peripheral vascular diseases; I25.5 Ischemic cardiomyopathy; R31.29 Other microscopic hematuria; Z95.0 Presence of cardiac pacemaker; Z95.5 Presence of coronary angioplasty implant and graft; Z99.81 Dependence on supplemental oxygen; Z95.1 Presence of aortocoronary bypass graft
CPT/HCPCS: 36415; 36600; 71045-TC; 71275-TC; 80048; 80053; 81003; 81015; 82550; 82553; 82803; 82962; 83880; 84484; 85025; 87070; 87205; 93005; 93010; 93306-TC; 94640; 94660; 99285-25; Q9967

== ENCOUNTER 2017-04-21 17:08 | Inpatient (IN) | payer OTHER ==
[2017-04-21 17:24] VITALS: BMI 30.7
--- NOTE | 2017-04-21 19:32 | PDOC ---
History of Present Illness - General Chief Complaint: Chest Pain Stated Complaint: CHEST PAIN Time Seen by Provider: 04/21/17 18:48 History Source: Patient Exam Limitations: No Limitations - History of Present Illness Initial Comments: This is a 76 YOM with h/o AAA with repair (last evaluated by CTA to be 4.9 cm on 04/03/17 during a visit to our ED for the same sxs as today), gallstones ( found on CT on 01/09/17), CVA, A-fib and DVT (on Xarelto), CAD with CABG, pacemaker use (interrogated and functioning properly as of the past week), CHF, and COPD on home O2, who presents with substernal and epigastric pain radiating to the mid-thoracic back today. He denies any recent fever, chills, nausea, vomiting, diarrhea, constipation, skin changes, yellow skin coloration, dysuria , hematuria, or new numbness, tingling, focal weakness, or other symptoms. Prior to the onset of pain today he ate a berkowitz sandwich. This pain is similar to the pain he felt when he was seen in the ED on 04/03/17. Past History - Past Medical History Allergies/Adverse Reactions: Allergies Allergy/AdvReac Type Severity Reaction Status Date / Time prednisone AdvReac Intermediate "too wired" Verified 04/21/17 17:24 Home Medications: Ambulatory Orders Albuterol 0.083% Nebulizer Suki [Ventolin 0.083% Nebulizer Soln -] 1 amp NEB TID 04/21/17 Aspirin [Adult Aspirin Regimen] 81 mg PO DAILY 04/21/17 Atorvastatin Ca [Lipitor] 10 mg PO HS 04/21/17 Budesonide/Formeterol Fumarate [SYMBICORT 160/4.5mcg -] 1 inh PO BID 04/21/17 Duloxetine HCl [Cymbalta -] 60 mg PO DAILY 04/21/17 Ferrous Sulfate 325 mg PO DAILY 04/21/17 Furosemide [Lasix] 20 mg PO DAILY 04/21/17 Isosorbide Dinitrate [Isordil -] 20 mg PO BID 04/21/17 Lisinopril [Zestril] 10 mg PO DAILY 04/21/17 Metoprolol Succinate [Toprol Xl -] 75 mg PO DAILY 04/21/17 Pregabalin [Lyrica] 100 mg PO BID 04/21/17 Rivaroxaban [Xarelto -] 20 mg PO DAILY 04/21/17 Anemia: No Asthma: No Cancer: No Cardiac Disorders: Yes (STENTS 2001/STENT IN 2015) CVA: Yes (01/23/12/DURING TRIPLE AA REPAIR) COPD: Yes CHF: No Dementia: No (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) Diabetes: No GI Disorders: No Disorders: Yes (BPH) HTN: Yes Hypercholesterolemia: Yes Liver Disease: No Seizures: No Thyroid Disease: No - Surgical History Abdominal Surgery: Yes (S/P AAA) Appendectomy: No Cardiac Surgery: Yes (BYPASS 2013, PPM/ AAA REPAIR/2011) Cholecystectomy: No Lung Surgery: No Neurologic Surgery: No Orthopedic Surgery: No - Immunization History Immunization Up to Date: Yes - Suicide/Smoking/Psychosocial Hx Smoking History: Unknown if ever smoked Have you smoked in the past 12 months: No If you are a former smoker, when did you quit?: 2007 Cigars Per Day: 0 Information on smoking cessation initiated: No Hx Alcohol Use: No Drug/Substance Use Hx: No Substance Use Type: None Hx Substance Use Treatment: No Review of Systems - Review of Systems Able to Perform ROS?: Yes Constitutional: No: Chills, Fever, Unexplained wgt Loss HEENTM: No: Nose Congestion, Throat Pain Respiratory: No: Cough, Shortness of Breath Cardiac (ROS): Yes: Chest Pain (lower chest pain). No: Edema, Palpitations ABD/GI: Yes: Other (upper abdominal pain). No: Constipated, Diarrhea, Nausea, Vomiting : No: Burning, Dysuria Musculoskeletal: No: Back Pain, Neck Pain Integumentary: No: Bruising, Rash Neurological: No: Headache, Numbness, Tingling, Weakness, Dizziness Endocrine: No: Unexplained Weight Gain, Unexplained Weight Loss *Physical Exam - Vital Signs Last Vital Signs Temp Pulse Resp BP Pulse Ox 98.4 F 77 16 138/66 95 04/21/17 17:08 04/21/17 17:08 04/21/17 18:55 04/21/17 18:00 04/21/17 18:55 - Physical Exam General Appearance: Yes: Nourished, Appropriately Dressed, Mild Distress, Other (patient pleasantly confused but answers simple questions yes/no, accompanied by family members who aid in providing his history, appears mildly intermittently uncomfortable) HEENT: positive: EOMI, Normal Voice, Hearing Grossly Normal. negative: Scleral Icterus (R), Scleral Icterus (L), Nasal Congestion Neck: positive: Trachea midline, Supple. negative: Tender, Rigid Respiratory/Chest: positive: Lungs Clear, Normal Breath Sounds. negative: Chest Tender, Respiratory Distress, Crackles, Rhonchi, Stridor, Wheezing Cardiovascular: positive: Regular Rhythm, Regular Rate, S1, S2. negative: Edema , JVD, Murmur Gastrointestinal/Abdominal: positive: Normal Bowel Sounds, Tender (moderate epigastric ttp), Soft, Protuberent. negative: Organomegaly, Pulsatile Mass, Guarding, Rebound, Hernia Musculoskeletal: positive: Normal Inspection. negative: Decreased Range of Motion, Vertebral Tenderness Extremity: positive: Normal Capillary Refill, Normal Inspection, Normal Range of Motion. negative: Tender, Cyanosis, Swelling Integumentary: positive: Normal Color, Dry, Warm. negative: Erythema, Rash, Bruising Neurologic: positive: supervisor pressing department II-XII NML intact (grossly), Alert, Normal Mood/Affect , Normal Response, Motor Strength 5/5, Confused (family states per baseline). negative: Fully Oriented Heart Score/ECG Review - History History: Moderately suspicious - Electrocardiogram EKG: Non specific repolarization disturbance - Age Age: >/= 65 - Risk Factors Risk Factors Heart Score: Yes Hx Hypercholesterolemia, Yes Hx Hypertension Based on the list above the patient has:: 1-2 risk factors - Troponin Troponin: </= normal limit - Score Heart Score - Total: 5 ED Treatment Course - LABORATORY CBC & Chemistry Diagram: 04/21/17 20:40 04/21/17 20:40 - RADIOLOGY Radiology Studies Ordered: Category Date Time Status CHEST X-RAY PORTABLE* [RAD] Stat Radiology 04/21/17 19:25 Ordered ABDOMEN US [US] Stat Ultrasound 04/21/17 19:25 Ordered AORTA US [US] Stat Ultrasound 04/21/17 19:25 Ordered Medical Decision Making - Medical Decision Making 04/21/17 21:36 Patient's lipase results >6000. Initially 2 [address] order [address] Horton concerned about large fluid bolus in elderly gentleman; recommends 500cc. Patient's PCP Alyssa Solomon admits to Dr. Escamilla. Dr. Escamilla patients being admitted to hospitalists now. Awaiting US results to page for admission. 04/21/17 23:31 Spoke with field representatives director at [employer] ([phone]) who states patient' s study is next to be read. 04/22/17 00:04 [facility] report indicated as signed off; should be reported momentarily. *DC/Admit/Observation/Transfer Diagnosis at time of Disposition: History of aortic aneurysm repair Pancreatitis Qualifiers: Chronicity: acute Pancreatitis type: unspecified pancreatitis type Acute pancreatitis complication: unspecified Qualified Code(s): K85.90 - Acute pancreatitis without necrosis or infection, unspecified Gallstones without obstruction of gallbladder Qualifiers: Cholelithiasis location: gallbladder Cholecystitis presence: without cholecystitis Qualified Code(s): K80.20 - Calculus of gallbladder without cholecystitis without obstruction Chest pain Qualifiers: Chest pain type: unspecified Qualified Code(s): R07.9 - Chest pain, unspecified - Discharge Dispostion Condition at time of disposition: Guarded Admit: Yes - Referrals Referrals: Alyssa Solomon [Primary Care Provider] - - Patient Instructions - Post Discharge Activity
[2017-04-21 20:49] LABS: BASO % 0.5 % (0-2.0); EOS % 3.7 % (0-4.5); HEMATOCRIT 41.4 % (35.4-49); HEMOGLOBIN 13.6 GM/dL (11.7-16.9); LYMPH % 11.1 % (8-40); MCH 28.8 pg (25.7-33.7); MCHC 32.7 g/dl (32.0-35.9); MEAN CELL VOLUME 87.9 fl (80-96); MEAN PLT VOLUME 9.6 fl (7.5-11.1); MONO % 6.9 % (3.8-10.2); NEUT % 77.8 % (42.8-82.8); PLATELET COUNT 162 K/MM3 (134-434); RBC 4.71 M/mm3 (4.00-5.60); RDW 16.5 % (11.9-15.9); WHITE BLOOD COUNT 7.1 K/mm3 (4.0-10.0)
[2017-04-21 21:09] LABS: ALBUMIN 3.1 g/dl (3.4-5.0); ANION GAP 6 (8-16); BILIRUBIN,TOTAL 0.5 mg/dL (0.2-1.0); BLOOD UREA NITROGEN 32 mg/dL (7-18); CHLORIDE 102 mmol/L (98-107); CO2 30 mmol/L (21-32); CREATININE 1.3 mg/dL (0.7-1.3); GLUCOSE,RANDOM 87 mg/dL (74-106); MAGNESIUM 1.7 mg/dL (1.8-2.4); POTASSIUM 4.4 mmol/L (3.5-5.1); SGOT/AST 20 U/L (15-37); SGPT/ALT 23 U/L (12-78); SODIUM 138 mmol/L (136-145); TOT PROT 6.3 g/dl (6.4-8.2)
[2017-04-21 21:12] LABS: ALK PHOS 54 U/L (45-117)
[2017-04-21] MEDS ORDERED: SODIUM CHLORIDE 2,000 ML IV STA (21:27)
[2017-04-21] MEDS ORDERED: SODIUM CHLORIDE 1,000 ML IV STA (21:29)
--- NOTE | 2017-04-21 21:50 | PDOC ---
Attending Attestation - Resident Resident Name: Teresa Almaguer - ED Attending Attestation I have performed the following: I have examined & evaluated the patient, The case was reviewed & discussed with the resident, I agree w/resident's findings & plan - HPI HPI: 04/21/17 21:48 Pt comes with epigastric pain that began today. He has a hx of AAA repair. He ate a berkowitz egg sandwich today. Nothing else. - Physicial Exam PE: 04/21/17 21:49 Epig pain. Warm to touch COPD dec BS Heart RRR; - Medical Decision Making 04/21/17 21:50 Morphine for the pain; 500 ml NSS. Pt has elevated lipase 04/21/17 21:51 PMD sakshi/Francine... pt will be admitted to the hospitalist team
[2017-04-21] MEDS ORDERED: morphine CARPU-JECT 4 MG/1 ML DISP.SYRIN IVPUSH ONE (21:54)
[2017-04-21] MEDS ORDERED: MORPHINE SULFATE 10 MG/1 ML *VIAL ONE (22:13)
[2017-04-21] MEDS ORDERED: METOCLOPRAMIDE HCL INJECTION 10 MG/2 ML VIAL IVPUSH ONE (23:13)
[2017-04-21] MEDS ORDERED: METOCLOPRAMIDE HCL INJECTION 10 MG/2 ML VIAL ONE (23:19)
[2017-04-22] MEDS ORDERED: MORPHINE SULFATE 10 MG/1 ML *VIAL IVPUSH PRN (01:28)
--- NOTE | 2017-04-22 01:35 | HP ---
CHIEF COMPLAINT: epigastric pain PCP: Juanito HISTORY OF PRESENT ILLNESS: This is a 76 sushil old male with a past medical history of AAA s/p repair, TAA, gallstones,afib, DVT, CAD, CHR, COPD,CV, BPH, HTN, HLD who presented to the ED with report of epigastric pain yesterday since eating a berkowitz sandwich for breakfast. Pt denies CP at this time but did report same to ED. No longer with pain radiating to back after morphine. Pt reports feeling "a little better". Denies vomiting. 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 Alcohol: pt denies Drugs: pt denies Family History: unk Allergies prednisone Adverse Reaction (Intermediate, Verified 04/21/17 17:24) "too wired" HOME MEDICATIONS: 3 Medication Instructions Recorded Albuterol 0.083% Nebulizer Suki 1 amp NEB TID 04/21/17 [Ventolin 0.083% Nebulizer Soln -] Aspirin [Adult Aspirin Regimen] 81 mg PO DAILY 04/21/17 Atorvastatin Ca [Lipitor] 10 mg PO HS 04/21/17 Budesonide/Formeterol Fumarate 1 inh PO BID 04/21/17 [SYMBICORT 160/4.5mcg -] Duloxetine HCl [Cymbalta -] 60 mg PO DAILY 04/21/17 Ferrous Sulfate 325 mg PO DAILY 04/21/17 Furosemide [Lasix] 20 mg PO DAILY 04/21/17 Isosorbide Dinitrate [Isordil -] 20 mg PO BID 04/21/17 Lisinopril [Zestril] 10 mg PO DAILY 04/21/17 Metoprolol Succinate [Toprol Xl -] 75 mg PO DAILY 04/21/17 Pregabalin [Lyrica] 100 mg PO BID 04/21/17 Rivaroxaban [Xarelto -] 20 mg PO DAILY 04/21/17 REVIEW OF SYSTEMS CONSTITUTIONAL: Absent: fever, chills, diaphoresis, generalized weakness, malaise, loss of appetite, weight change HEENT: Absent: rhinorrhea, nasal congestion, throat pain, throat swelling, difficulty swallowing, mouth swelling, ear pain, eye pain, visual changes CARDIOVASCULAR: present: chest pain Absent: syncope, palpitations, irregular heart rate, lightheadedness, peripheral edema RESPIRATORY: Absent: cough, shortness of breath, dyspnea with exertion, orthopnea, wheezing, stridor, hemoptysis GASTROINTESTINAL: Present: abdominal pain Absent: abdominal distension, nausea, vomiting, diarrhea, constipation, melena, hematochezia GENITOURINARY: Absent: dysuria, frequency, urgency, hesitancy, hematuria, flank pain, genital pain MUSCULOSKELETAL: Absent: myalgia, arthralgia, joint swelling, back pain, neck pain SKIN: Absent: rash, itching, pallor HEMATOLOGIC/IMMUNOLOGIC: Absent: easy bleeding, easy bruising, lymphadenopathy, frequent infections ENDOCRINE: Absent: unexplained weight gain, unexplained weight loss, heat intolerance, cold intolerance NEUROLOGIC: Absent: headache, focal weakness or paresthesias, dizziness, unsteady gait, seizure, mental status changes, bladder or bowel incontinence PSYCHIATRIC: Absent: anxiety, depression, suicidal or homicidal ideation, hallucinations. PHYSICAL EXAMINATION Vital Signs - 24 hr 3 04/21/17 04/21/17 04/21/17 17:08 18:00 18:55 Temperature 98.4 F Pulse Rate 77 Respiratory 18 16 Rate Blood Pressure 126/90 Blood Pressure 143/86 [Left Arm] Blood Pressure 138/66 [Right Arm] O2 Sat by Pulse 100 95 Oximetry (%) GENERAL: Awake, alert, and fully oriented, in no acute distress. HEAD: Normal with no signs of trauma. EYES: Pupils equal, round and reactive to light, extraocular movements intact, sclera anicteric, conjunctiva clear. No lid lag. EARS, NOSE, THROAT: Ears normal, nares patent, oropharynx clear without exudates. Moist mucous membranes. NECK: Normal range of motion, supple without lymphadenopathy, JVD, or masses. LUNGS: Breath sounds equal, clear to auscultation bilaterally. No wheezes, and no crackles. No accessory muscle use. HEART: Regular rate and rhythm, normal S1 and S2 without murmur, rub or gallop. ABDOMEN: Soft, nontender, not distended, normoactive bowel sounds, no guarding, no rebound, no masses. No hepatomegaly or splenomegaly. MUSCULOSKELETAL: Normal range of motion at all joints. No bony deformities or tenderness. No CVA tenderness. UPPER EXTREMITIES: 2+ pulses, warm, well-perfused. No cyanosis. No clubbing. No peripheral edema. LOWER EXTREMITIES: 2+ pulses, warm, well-perfused. No calf tenderness. No peripheral edema. NEUROLOGICAL: Cranial nerves II-XII intact. Normal speech. Normal gait. PSYCHIATRIC: Cooperative. Good eye contact. Appropriate mood and affect. SKIN: Warm, dry, normal turgor, no rashes or lesions noted, normal capillary refill. Laboratory Results - last 24 hr 3 04/21/17 04/21/17 04/21/17 20:40 20:40 20:40 WBC 7.1 RBC 4.71 Hgb 13.6 Hct 41.4 MCV 87.9 MCH 28.8 MCHC 32.7 RDW 16.5 H Plt Count 162 MPV 9.6 Neutrophils % 77.8 Lymphocytes % 11.1 D Monocytes % 6.9 D Eosinophils % 3.7 D Basophils % 0.5 D Sodium 138 Potassium 4.4 Chloride 102 Carbon Dioxide 30 Anion Gap 6 L BUN 32 H Creatinine 1.3 Creat Clearance w eGFR 53.39 Random Glucose 87 Calcium 9.0 Magnesium 1.7 L D Total Bilirubin 0.5 D AST 20 ALT 23 Alkaline Phosphatase 54 D Creatine Kinase 35 L Troponin I < 0.02 Total Protein 6.3 L Albumin 3.1 L Lipase 6038 H Blood Type A POSITIVE Antibody Screen Negative Radiology Reports EXAM: US ABDOMEN complete THIS IS A PRELIMINARY REPORT FROM IMAGING PURCHASING EXPEDITOR HISTORY: 76-year-old male history of abdominal aortic aneurysm repair, evaluate for aortic dissection, or Aortic rupture, history of cholelithiasis, epigastric pain, evaluate for cholecystitis. COMPARISON: None. FINDINGS: Dependent cholelithiasis in the gallbladder neck with moderate gallbladder distention borderline abnormal gallbladder wall thickening most likely associated with gallbladder dysmotility most likely associated with mild acute cholecystitis. Common bile duct is normal 5 mm diameter. Mild 17.3 cm hepatomegaly with coarse increased echogenicity consistent with liver steatosis. Pancreas is obscured by overlying bowel gas. Spleen has a normal size. Multiple right kidney cortical cysts measuring between 1-3 cm in size. Multiple left kidney cortical cysts measure up to 4.6 cm in size. No nephrolithiasis or hydronephrosis. Aneurysm of the abdominal aorta measures 4.5 x 4 cm and a leak of the abdominal aortic aneurysm repair cannot be excluded on this exam. Inferior vena cava is patent. IMPRESSION: Cholelithiasis with gallbladder dysmotility and most likely acute cholecystitis. If clinically indicated recommend correlation with a nuclear medicine hepatobiliary scan. No aortic aneurysm measures 4.5 x 4 cm with partial intraluminal mural thrombus. If there is a clinical concern for abdominal aortic aneurysm repair leak then further evaluation and workup with a CT angiogram of the aorta with contrast may be needed. Benign appearing bilateral renal cortical cysts. Hepatomegaly and steatosis most likely associated with insulin resistance and metabolic syndrome. Limited exam with nonvisualization of pancreas due to overlying bowel gas. 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 Pancreatitis - sono with poor visualization of pancreas, consider CT abd/pel with IV contrast if Cr improved in am - NPO except meds with a sip of water, NS @ 50cc/hr while NPO, will hold cymbalta, lipitor and iron while NPO -consider GI consult Chest pain - likely due to pancreatitis but will trend troponins - troponin neg x 1, trend x 2 more - if chest pain recurs, cardiology consult - pt has refused further cardiac catheterizations on previous admission - cont isordil, ASA, toprol CHF/HTN/CAD - cont home meds: lasix, isordil, zestril, toprol, ASA afib with h/o DVT - cont xarelto - rate well controlled with toprol, cont same. COPD - cont 3L O2 via NC - cont home symbicort and albuterol neb DVT PPX - cont home xarelto FEN - NS @ 50cc/hr while npo, monitor fluid/volume status closely - BMP in am - NPO for now, clears when pain resolving Dispo: Pt currently requires inpatient management of his emergent condition. Visit type - Emergency Visit Emergency Visit: Yes ED Registration Date: 04/21/17 Care time: The patient presented to the Emergency Department on the above date and was hospitalized for further evaluation of their emergent condition. - New Patient This patient is new to me today: Yes Date on this admission: 04/22/17 - Critical Care Critical Care patient: No
[2017-04-22] MEDS ORDERED: MAGNESIUM SULF 50% (8.12 MEQ/2 ML-1 GM VIAL) ONE (02:05)
[2017-04-22] MEDS: SODIUM CHLORIDE 1,000 ML IV SCH (02:16)
[2017-04-22 02:30] LABS: INR 1.18 (0.82-1.09); PROTHROMBIN TIME (PATIENT) 13.3 SEC (9.98-11.88)
[2017-04-22] MEDS ORDERED: MAGNESIUM 1GM/D5W - 1 GM/100 ML IVPB IVPB ONE (02:34)
[2017-04-22] MEDS ORDERED: HEPARIN NA (PORCINE) 5,000 UNITS/ML 1ML VIAL SQ SCH (06:00)
[2017-04-22 08:11] LABS: URINE APPEARANCE CLEAR; URINE BILIRUBIN NEGATIVE (NEGATIVE); URINE BLOOD 1+ (NEGATIVE); URINE COLOR YELLOW; URINE GLUCOSE (UA) NEGATIVE (NEGATIVE); URINE KETONE NEGATIVE (NEGATIVE); URINE LEUK ESTERASE NEGATIVE (NEGATIVE); URINE NITRITE NEGATIVE (NEGATIVE); URINE UROBILINOGEN NEGATIVE mg/dL (0.2-1.0)
[2017-04-22 08:11] LABS: BASO % 0.7 % (0-2.0); EOS % 7.7 % (0-4.5); HEMATOCRIT 40.2 % (35.4-49); LYMPH % 14.8 % (8-40); MCH 28.4 pg (25.7-33.7); MCHC 32.3 g/dl (32.0-35.9); MEAN CELL VOLUME 87.7 fl (80-96); MEAN PLT VOLUME 9.5 fl (7.5-11.1); NEUT % 66.8 % (42.8-82.8); PLATELET COUNT 162 K/MM3 (134-434); RBC 4.59 M/mm3 (4.00-5.60); RDW 16.1 % (11.9-15.9); WHITE BLOOD COUNT 5.2 K/mm3 (4.0-10.0)
[2017-04-22] MEDS: ALBUTEROL SO4 0.083% IH SOL 2.5 MG/3 ML VIAL.NEB. NEB SCH ×3 (08:11→21:09)
[2017-04-22] MEDS ORDERED: ALBUTEROL SO4 0.083% IH SOL 2.5 MG/3 ML VIAL.NEB. NEB ONE (08:12)
[2017-04-22 08:19] LABS: URINE PROTEIN 1+ (NEGATIVE)
[2017-04-22 08:21] LABS: URINE HYALINE CAST 1 /lpf; URINE MUCUS RARE
[2017-04-22 08:31] LABS: ANION GAP 8 (8-16); BLOOD UREA NITROGEN 27 mg/dL (7-18); CALCIUM 8.8 mg/dL (8.5-10.1); CHLORIDE 103 mmol/L (98-107); CO2 29 mmol/L (21-32); CREATININE 1.1 mg/dL (0.7-1.3); GLUCOSE,RANDOM 70 mg/dL (74-106); PHOSPHOROUS 3.8 mg/dL (2.5-4.9); POTASSIUM 4.1 mmol/L (3.5-5.1); SODIUM 140 mmol/L (136-145)
[2017-04-22] MEDS: FUROSEMIDE 20 MG TABLET (FP) PO SCH (09:22)
[2017-04-22] MEDS: ASPIRIN COATED 81 MG TABLET.EC PO SCH (09:22)
[2017-04-22] MEDS: LISINOPRIL 10 MG TABLET (FP) PO SCH (09:22)
[2017-04-22] MEDS: ISOSORBIDE DINITRATE 20 MG TABLET (FP) PO SCH ×2 (09:22→18:17)
[2017-04-22] MEDS: METOPROLOL SUCCINATE 50 MG, METOPROLOL SUCCINATE 25 MG PO SCH (09:23)
[2017-04-22] MEDS: RIVAROXABAN 20 MG TABLET PO SCH (09:23)
[2017-04-22] MEDS ORDERED: PREGABALIN 100 MG CAPSULE ONE (09:30)
[2017-04-22] MEDS: PREGABALIN 100 MG CAPSULE PO SCH ×2 (09:30→21:47)
[2017-04-22] MEDS: BUDESONIDE/FORMETEROL FUMARATE 160/4.5 mcg INHALER IH SCH ×2 (09:31→22:50)
[2017-04-22 10:49] LABS: LIPASE 559 U/L (73-393)
--- NOTE | 2017-04-22 11:40 | PN ---
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, Physician Chief Complaint: sitting up in bed says his abdominal pain slightly better currently NPO - Current Medication List Current Medications: Active Medications Albuterol Sulfate (Ventolin 0.083% Nebulizer Soln -) 1 amp NEB RTID [facility] Last Admin: 04/22/17 08:11 Dose: 1 amp Aspirin (Ecotrin -) 81 mg PO DAILY [facility] Last Admin: 04/22/17 09:22 Dose: 81 mg Budesonide/Formoterol Fumarate (Symbicort 160/4.5mcg -) 2 puff IH BID [facility] Last Admin: 04/22/17 09:31 Dose: Not Given Furosemide (Lasix -) 20 mg PO DAILY [facility] Last Admin: 04/22/17 09:22 Dose: 20 mg Sodium Chloride (Normal Saline -) 1,000 mls @ 50 mls/hr IV ASDIR [facility] Stop: 04/23/17 01:30 Last Admin: 04/22/17 02:16 Dose: 50 mls/hr Isosorbide Dinitrate (Isordil -) 20 mg PO BIDISORDIL [facility] Last Admin: 04/22/17 09:22 Dose: 20 mg Lisinopril (Prinivil) 10 mg PO DAILY [facility] Last Admin: 04/22/17 09:22 Dose: 10 mg Metoprolol Succinate 50 mg/ (Metoprolol Succinate 25 mg) 75 mg PO DAILY [facility] Last Admin: 04/22/17 09:23 Dose: 75 mg Morphine Sulfate (Morphine Injection -) 2 mg IVPUSH Q4H PRN PRN Reason: PAIN LEVEL 6-10 Pregabalin (Lyrica -) 100 mg PO BID [facility] Last Admin: 04/22/17 09:30 Dose: 100 mg Rivaroxaban (Xarelto -) 20 mg PO DAILY [facility] Last Admin: 04/22/17 09:23 Dose: 20 mg - Objective Vital Signs: Vital Signs Temperature 98.8 F 04/22/17 09:53 Pulse Rate 68 04/22/17 09:53 Respiratory Rate 16 04/22/17 09:53 Blood Pressure 142/105 04/22/17 09:53 O2 Sat by Pulse Oximetry (%) 98 04/22/17 09:53 Constitutional: Yes: Calm Cardiovascular: Yes: Regular Rate and Rhythm, S1, S2 Respiratory: Yes: CTA Bilaterally Gastrointestinal: Yes: Other (mild tenderness in left quadrant) Labs: CBC, BMP 04/22/17 07:42 04/22/17 07:42 INR, PTT INR 1.18 (0.82-1.09) H 04/22/17 02:05 Problem List - Problems (1) Gallstones without obstruction of gallbladder Assessment/Plan: trend lipase currently trending down but stil elevated GI on board Code(s): K80.20 - CALCULUS OF GALLBLADDER W/O CHOLECYSTITIS W/O OBSTRUCTION Qualifiers: Cholelithiasis location: gallbladder Cholecystitis presence: without cholecystitis Qualified Code(s): K80.20 - Calculus of gallbladder without cholecystitis without obstruction (2) Abdominal pain Assessment/Plan: possibly secondary to pancreatitis iv hydration NPO gi eval Code(s): R10.9 - UNSPECIFIED ABDOMINAL PAIN Qualifiers: Abdominal location: left lower quadrant Qualified Code(s): R10.32 - Left lower quadrant pain (3) COPD (chronic obstructive pulmonary disease) Assessment/Plan: bronchodilators Code(s): J44.9 - CHRONIC OBSTRUCTIVE PULMONARY DISEASE, UNSPECIFIED Qualifiers: COPD type: COPD with acute exacerbation Qualified Code(s): J44.1 - Chronic obstructive pulmonary disease with (acute) exacerbation (4) Afib Assessment/Plan: toprol and xarelto Code(s): I48.91 - UNSPECIFIED ATRIAL FIBRILLATION (5) Hx of CABG Assessment/Plan: bb, asa,isordil Code(s): Z95.1 - PRESENCE OF AORTOCORONARY BYPASS GRAFT
--- NOTE | 2017-04-22 13:04 | EKG ---
Test Reason : Blood Pressure : / mmHG Vent. Rate : 070 BPM Atrial Rate : 070 BPM P-R Int : 136 ms QRS Dur : 126 ms QT Int : 420 ms P-R-T Axes : 083 264 086 degrees QTc Int : 453 ms Atrial-sensed ventricular-paced rhythm WITH OCCASIONAL AV dual-paced complexes PREMATURE VENTRICULAR COMPLEXES ABNORMAL ECG WHEN COMPARED WITH ECG OF 02-APR-2017 15:42, VENT. RATE HAS DECREASED BY 11 BPM Confirmed by SAADIA PERALTA MD ([id number]) on 04/22/2017 1:04:12 PM Referred By: Confirmed By:SAADIA PERALTA MD
[2017-04-22] MEDS ORDERED: PT OWN MED DRAWER 7, Y5N ONE ×2 (16:04→20:42)
[2017-04-22] MEDS ORDERED: DULoxetine HCL 60 MG CAPSULE.DR PO SCH (18:15)
[2017-04-22] MEDS ORDERED: DULoxetine HCL 30 MG CAPSULE.DR (FP) PO SCH (18:48)
--- NOTE | 2017-04-22 19:55 | CON.GI ---
Consult Consult Specialty:: Gi Referred by:: Dr Escamilla/July/ Sudheer williamson Reason for Consultation:: cholecystitis - History of Present Illness History of Present Illness: 76 y/o male with PMH of AAA,cholelithisais,A-FIB,DVT(Xarelto)severe COPD, positive cologuard test, cancelled colonoscopy because of severe COPD was admitted because of abdominal pain. CT was done which revealed pancreatic neoplasm(0.8cm head of the pancreas,0.6cm cyst in the body of the pancreas). Tonight have less abdominal pain. 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, Seizure Cardio/Vascular: Yes: AFIB, Aneurysm, CAD, CHF, HTN, Hyperlipdemia, Murmur, Other (peripheral artery disease) Pulmonary: Yes: COPD Renal/: Yes: BPH - Past Surgical History Past Surgical History: Yes: AAA Repair, Bypass (lower ext), Permanent Pacemaker , Stent (cardiac x 2) - Alcohol/Substance Use Hx Alcohol Use: No History of Substance Use: reports: None - Smoking History Smoking history: Unknown if ever smoked Have you smoked in the past 12 months: No If you are a former smoker, when did you quit?: 2006 - Social History Usual Living Arrangement: With Spouse ADL: Family Assistance History of Recent Travel: No Home Medications - Allergies Allergies/Adverse Reactions: Allergies Allergy/AdvReac Type Severity Reaction Status Date / Time prednisone AdvReac Intermediate "too wired" Verified 04/21/17 17:24 - Home Medications Home Medications: Ambulatory Orders Albuterol 0.083% Nebulizer Suki [Ventolin 0.083% Nebulizer Soln -] 1 amp NEB TID 04/21/17 Aspirin [Adult Aspirin Regimen] 81 mg PO DAILY 04/21/17 Atorvastatin Ca [Lipitor] 10 mg PO HS 04/21/17 Budesonide/Formeterol Fumarate [SYMBICORT 160/4.5mcg -] 1 inh PO BID 04/21/17 Duloxetine HCl [Cymbalta -] 60 mg PO DAILY 04/21/17 Ferrous Sulfate 325 mg PO DAILY 04/21/17 Furosemide [Lasix] 20 mg PO DAILY 04/21/17 Isosorbide Dinitrate [Isordil -] 20 mg PO BID 04/21/17 Lisinopril [Zestril] 10 mg PO DAILY 04/21/17 Metoprolol Succinate [Toprol Xl -] 75 mg PO DAILY 04/21/17 Pregabalin [Lyrica] 100 mg PO BID 04/21/17 Rivaroxaban [Xarelto -] 20 mg PO DAILY 04/21/17 Review of Systems - Review of Systems Constitutional: denies: Fever Eyes: denies: Blind Spots, Photophobia HENT: denies: Throat Pain Neck: denies: Tenderness Cardiovascular: reports: Chest Pain Respiratory: reports: SOB, SOB on Exertion Gastrointestinal: reports: Abdominal Pain, Bloating. denies: Constipation, Diarrhea, Dysphagia, Indigestion, Nausea Physical Exam-GI Vital Signs: Vital Signs Temperature 97.5 F L 04/22/17 14:00 Pulse Rate 70 04/22/17 14:00 Respiratory Rate 16 04/22/17 09:53 Blood Pressure 104/66 04/22/17 14:00 O2 Sat by Pulse Oximetry (%) 98 04/22/17 09:53 Constitutional: Yes: Well Nourished Eyes: Yes: Conjunctiva Clear HENT: Yes: Atraumatic Neck: Yes: Supple Cardiovascular: Yes: Regular Rate and Rhythm Respiratory: Yes: CTA Bilaterally ...Palpate: Yes: Soft. No: Hepatomegaly, Mass, Pulsatile Mass, Splenomegaly Labs: CBC, BMP 04/22/17 07:42 04/22/17 07:42 INR, PTT INR 1.18 (0.82-1.09) H 04/22/17 02:05 Problem List - Problems (1) Pancreatic neoplasm Assessment/Plan: worrisome because further w/u including EUS with FNA is not an option because of severe COPD, pt and family should be made aware Code(s): D49.0 - NEOPLASM OF UNSPECIFIED BEHAVIOR OF DIGESTIVE SYSTEM (2) Epigastric pain Assessment/Plan: multifactorial including PUD Code(s): R10.13 - EPIGASTRIC PAIN (3) Abdominal bloating Assessment/Plan: r/o small bowel bacterial overgrowth and pancreatic insufficiency R> Flagyl 250mg tid for 2 weeks Creon 36,0000 tid Code(s): R14.0 - ABDOMINAL DISTENSION (GASEOUS) (4) Gallstones without obstruction of gallbladder Code(s): K80.20 - CALCULUS OF GALLBLADDER W/O CHOLECYSTITIS W/O OBSTRUCTION Qualifiers: Cholelithiasis location: gallbladder Cholecystitis presence: without cholecystitis Qualified Code(s): K80.20 - Calculus of gallbladder without cholecystitis without obstruction
[2017-04-22] MEDS: DULoxetine HCL 30 MG CAPSULE.DR (FP) PO SCH (21:47)
[2017-04-23] MEDS: ALBUTEROL SO4 0.083% IH SOL 2.5 MG/3 ML VIAL.NEB. NEB SCH ×3 (08:10→20:22)
--- NOTE | 2017-04-23 09:21 | PN ---
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, Physician - Current Medication List Current Medications: Active Medications Albuterol Sulfate (Ventolin 0.083% Nebulizer Soln -) 1 amp NEB RTID [facility] Last Admin: 04/22/17 21:09 Dose: 1 amp Aspirin (Ecotrin -) 81 mg PO DAILY [facility] Last Admin: 04/22/17 09:22 Dose: 81 mg Budesonide/Formoterol Fumarate (Symbicort 160/4.5mcg -) 2 puff IH BID [facility] Last Admin: 04/22/17 22:50 Dose: 2 puff Duloxetine HCl (Cymbalta -) 60 mg PO DAILY [facility] Last Admin: 04/22/17 21:47 Dose: 60 mg Furosemide (Lasix -) 20 mg PO DAILY [facility] Last Admin: 04/22/17 09:22 Dose: 20 mg Isosorbide Dinitrate (Isordil -) 20 mg PO BIDISORDIL [facility] Last Admin: 04/22/17 18:17 Dose: 20 mg Lisinopril (Prinivil) 10 mg PO DAILY [facility] Last Admin: 04/22/17 09:22 Dose: 10 mg Metoprolol Succinate 50 mg/ (Metoprolol Succinate 25 mg) 75 mg PO DAILY [facility] Last Admin: 04/22/17 09:23 Dose: 75 mg Morphine Sulfate (Morphine Injection -) 2 mg IVPUSH Q4H PRN PRN Reason: PAIN LEVEL 6-10 Pregabalin (Lyrica -) 100 mg PO BID [facility] Last Admin: 04/22/17 21:47 Dose: 100 mg Rivaroxaban (Xarelto -) 20 mg PO DAILY [facility] Last Admin: 04/22/17 09:23 Dose: 20 mg - Objective Vital Signs: Vital Signs Temperature 97.6 F 04/23/17 05:00 Pulse Rate 86 04/23/17 05:00 Respiratory Rate 18 04/23/17 05:00 Blood Pressure 135/86 04/23/17 05:00 O2 Sat by Pulse Oximetry (%) 97 04/22/17 21:58 Cardiovascular: Yes: Regular Rate and Rhythm Respiratory: Yes: Regular, CTA Bilaterally Gastrointestinal: Yes: Normal Bowel Sounds, Soft, Tenderness, Epigastrium Labs: CBC, BMP 04/22/17 07:42 04/22/17 07:42 INR, PTT INR 1.18 (0.82-1.09) H 04/22/17 02:05 Assessment/Plan - Problems (1) Gallstones without obstruction of gallbladder Assessment/Plan: trend lipase currently trending down but stil elevated GI on board Code(s): K80.20 - CALCULUS OF GALLBLADDER W/O CHOLECYSTITIS W/O OBSTRUCTION Qualifiers: Cholelithiasis location: gallbladder Cholecystitis presence: without cholecystitis Qualified Code(s): K80.20 - Calculus of gallbladder without cholecystitis without obstruction (2) Abdominal pain Assessment/Plan: possibly secondary to pancreatitis iv hydration NPO gi eval Code(s): R10.9 - UNSPECIFIED ABDOMINAL PAIN Qualifiers: Abdominal location: left lower quadrant Qualified Code(s): R10.32 - Left lower quadrant pain (3) COPD (chronic obstructive pulmonary disease) Assessment/Plan: bronchodilators Code(s): J44.9 - CHRONIC OBSTRUCTIVE PULMONARY DISEASE, UNSPECIFIED Qualifiers: COPD type: COPD with acute exacerbation Qualified Code(s): J44.1 - Chronic obstructive pulmonary disease with (acute) exacerbation (4) Afib Assessment/Plan: toprol and xarelto Code(s): I48.91 - UNSPECIFIED ATRIAL FIBRILLATION (5) Hx of CABG Assessment/Plan: bb, asa,isordil Code(s): Z95.1 - PRESENCE OF AORTOCORONARY BYPASS GRAFT
[2017-04-23] MEDS ORDERED: metoPROLOL SUCCINATE 25 MG TAB.SR.24H (FP) ONE (09:45)
[2017-04-23] MEDS: BUDESONIDE/FORMETEROL FUMARATE 160/4.5 mcg INHALER IH SCH ×2 (10:30→21:14)
[2017-04-23] MEDS: ISOSORBIDE DINITRATE 20 MG TABLET (FP) PO SCH ×2 (10:47→17:43)
[2017-04-23] MEDS: DULoxetine HCL 30 MG CAPSULE.DR (FP) PO SCH (10:47)
[2017-04-23] MEDS: RIVAROXABAN 20 MG TABLET PO SCH (10:48)
[2017-04-23] MEDS: PREGABALIN 100 MG CAPSULE PO SCH ×2 (10:48→21:14)
[2017-04-23] MEDS: FUROSEMIDE 20 MG TABLET (FP) PO SCH (10:48)
[2017-04-23] MEDS: ASPIRIN COATED 81 MG TABLET.EC PO SCH (10:48)
[2017-04-23] MEDS: LISINOPRIL 10 MG TABLET (FP) PO SCH (10:48)
[2017-04-23] MEDS: METOPROLOL SUCCINATE 50 MG, METOPROLOL SUCCINATE 25 MG PO SCH (10:48)
[2017-04-23] MEDS: SODIUM CHLORIDE 1,000 ML IV SCH (11:00)
--- NOTE | 2017-04-23 20:08 | PN ---
GI 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 Subjective: abdominal pain less, tolerated clear liquids - Objective Vital Signs: Vital Signs Temperature 98.2 F 04/23/17 14:32 Pulse Rate 80 04/23/17 14:32 Respiratory Rate 18 04/23/17 14:54 Blood Pressure 118/75 04/23/17 14:32 O2 Sat by Pulse Oximetry (%) 90 L 04/23/17 14:54 Constitutional: Well Nourished Eyes: Yes: Conjunctiva Clear HENT: Yes: Atraumatic, Tonsillar Exudate Cardiovascular: Yes: Regular Rate and Rhythm Respiratory: Yes: CTA Bilaterally Gastrointestinal Inspection: Yes: Distention ...Palpate: Yes: Soft. No: Firm/Rigid, Guarding, Hepatomegaly, Mass, Pulsatile Mass ...Percussion: Yes: Tympanitic Labs: CBC, BMP 04/22/17 07:42 04/22/17 07:42 INR, PTT INR 1.18 (0.82-1.09) H 04/22/17 02:05 Problem List - Problems (1) Pancreatic neoplasm Assessment/Plan: R> poor candidate for EUS with FNA, will need to inform the patient and the family Code(s): D49.0 - NEOPLASM OF UNSPECIFIED BEHAVIOR OF DIGESTIVE SYSTEM (2) Epigastric pain Assessment/Plan: r/o secondary to Peptic ulcer disease R> Protonix 40mg bid Reglan 5mg 30 min ac Code(s): R10.13 - EPIGASTRIC PAIN (3) Abdominal bloating Code(s): R14.0 - ABDOMINAL DISTENSION (GASEOUS) (4) Gallstones without obstruction of gallbladder Assessment/Plan: bilary colic, doubt cholecystitis R> will not order Hida scan at this time Code(s): K80.20 - CALCULUS OF GALLBLADDER W/O CHOLECYSTITIS W/O OBSTRUCTION Qualifiers: Cholelithiasis location: gallbladder Cholecystitis presence: without cholecystitis Qualified Code(s): K80.20 - Calculus of gallbladder without cholecystitis without obstruction
[2017-04-23] MEDS: metroNIDAZOLE 250 MG TABLET PO SCH (21:14)
[2017-04-23] MEDS: PANTOPRAZOLE 40 MG TABLET (FP) PO SCH (21:14)
[2017-04-23] MEDS ORDERED: metoPROLOL SUCCINATE 25 MG TAB.SR.24H (FP) PO ONE (23:45)
[2017-04-24] MEDS: metroNIDAZOLE 250 MG TABLET PO SCH ×3 (05:48→21:06)
[2017-04-24] MEDS: METOCLOPRAMIDE HCL 10 MG TABLET (FP) PO SCH ×3 (06:08→17:37)
--- NOTE | 2017-04-24 08:26 | PN ---
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, Physician - Current Medication List Current Medications: Active Medications Albuterol Sulfate (Ventolin 0.083% Nebulizer Soln -) 1 amp NEB RTID [facility] Last Admin: 04/23/17 20:22 Dose: 1 amp Aspirin (Ecotrin -) 81 mg PO DAILY [facility] Last Admin: 04/23/17 10:48 Dose: 81 mg Budesonide/Formoterol Fumarate (Symbicort 160/4.5mcg -) 2 puff IH BID [facility] Last Admin: 04/23/17 21:14 Dose: 2 puff Duloxetine HCl (Cymbalta -) 60 mg PO DAILY [facility] Last Admin: 04/23/17 10:47 Dose: 60 mg Furosemide (Lasix -) 20 mg PO DAILY [facility] Last Admin: 04/23/17 10:48 Dose: 20 mg Isosorbide Dinitrate (Isordil -) 20 mg PO BIDISORDIL [facility] Last Admin: 04/23/17 17:43 Dose: 20 mg Lisinopril (Prinivil) 10 mg PO DAILY [facility] Last Admin: 04/23/17 10:48 Dose: 10 mg Metoclopramide HCl (Reglan -) 5 mg PO TIDAC [facility] Last Admin: 04/24/17 06:08 Dose: 5 mg Metoprolol Succinate (Toprol Xl -) 100 mg PO DAILY [facility] Metronidazole (Flagyl -) 250 mg PO TID [facility] Last Admin: 04/24/17 05:48 Dose: 250 mg Morphine Sulfate (Morphine Injection -) 2 mg IVPUSH Q4H PRN PRN Reason: PAIN LEVEL 6-10 Pancrelipase (Marlyn Dr 36,000 Units Capsule) 1 cap PO TIDCM [facility] Pantoprazole Sodium (Protonix -) 40 mg PO BID [facility] Last Admin: 04/23/17 21:14 Dose: 40 mg Pregabalin (Lyrica -) 100 mg PO BID [facility] Last Admin: 04/23/17 21:14 Dose: 100 mg Rivaroxaban (Xarelto -) 20 mg PO DAILY [facility] Last Admin: 04/23/17 10:48 Dose: 20 mg - Objective Vital Signs: Vital Signs Temperature 97.7 F 04/23/17 20:08 Pulse Rate 70 04/24/17 05:52 Respiratory Rate 18 04/24/17 05:52 Blood Pressure 110/71 04/24/17 05:52 O2 Sat by Pulse Oximetry (%) 90 L 04/23/17 14:54 Cardiovascular: Yes: Regular Rate and Rhythm Respiratory: Yes: Regular, CTA Bilaterally Gastrointestinal: Yes: Normal Bowel Sounds, Soft. No: Tenderness Labs: CBC, BMP 04/22/17 07:42 04/22/17 07:42 INR, PTT INR 1.18 (0.82-1.09) H 04/22/17 02:05 Assessment/Plan - Problems (1) Gallstones without obstruction of gallbladder Assessment/Plan: trend lipase currently trending down but stil elevated GI on board Code(s): K80.20 - CALCULUS OF GALLBLADDER W/O CHOLECYSTITIS W/O OBSTRUCTION Qualifiers: Cholelithiasis location: gallbladder Cholecystitis presence: without cholecystitis Qualified Code(s): K80.20 - Calculus of gallbladder without cholecystitis without obstruction (2) Abdominal pain Assessment/Plan: resolved possibly secondary to pancreatitis dc iv hydration diet gi eval noted no further w/u at this time Code(s): R10.9 - UNSPECIFIED ABDOMINAL PAIN Qualifiers: Abdominal location: left lower quadrant Qualified Code(s): R10.32 - Left lower quadrant pain (3) COPD (chronic obstructive pulmonary disease) Assessment/Plan: bronchodilators Code(s): J44.9 - CHRONIC OBSTRUCTIVE PULMONARY DISEASE, UNSPECIFIED Qualifiers: COPD type: COPD with acute exacerbation Qualified Code(s): J44.1 - Chronic obstructive pulmonary disease with (acute) exacerbation (4) Afib Assessment/Plan: toprol and xarelto cardio Code(s): I48.91 - UNSPECIFIED ATRIAL FIBRILLATION (5) Hx of CABG Assessment/Plan: bb, asa,isordil Code(s): Z95.1 - PRESENCE OF AORTOCORONARY BYPASS GRAFT (6) Pancreatic masses Assessment/Plan: -gi consult noted--no further w/u per gi -pt high risk for eus -endo (5) Aneurysm Assessment/Plan: vascular consult
[2017-04-24] MEDS: ALBUTEROL SO4 0.083% IH SOL 2.5 MG/3 ML VIAL.NEB. NEB SCH ×3 (08:27→20:49)
--- NOTE | 2017-04-24 09:01 | PN ---
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, Physician Chief Complaint: 76 year old man with a history of HTN, HLD, Afib, CAD s/p CABG s/p stents, PPM, ICM refused ICD in the past, PAD, Thoracic aortic aneursym, AAA, righ iliac aneurysm, CVA with residual L sided weakness, COPD presents with epigastric pain. He has had multiple recent hospitalizations for CHF/COPD and chronic angina. During his most recent admission last month we considered cardiac cath due to recurrent anginal episodes; after reviewing his case with interventional cardiology he was deemed not a candidate for cath: too high risk due to diffuse vascular calcifications placing him at high stroke risk, CKD and poor functional status. Of note, he refused an ICD a few years ago in favor of [employer]-P which has actually normalized his EF. On imaging this admission, he was found to have cholelithiasis, an elevated Lipase and masses in the pancreas- possibly malignant. - Current Medication List Current Medications: Active Medications Albuterol Sulfate (Ventolin 0.083% Nebulizer Soln -) 1 amp NEB RTID [facility] Last Admin: 04/24/17 08:27 Dose: 1 amp Aspirin (Ecotrin -) 81 mg PO DAILY [facility] Last Admin: 04/23/17 10:48 Dose: 81 mg Budesonide/Formoterol Fumarate (Symbicort 160/4.5mcg -) 2 puff IH BID [facility] Last Admin: 04/23/17 21:14 Dose: 2 puff Duloxetine HCl (Cymbalta -) 60 mg PO DAILY [facility] Last Admin: 04/23/17 10:47 Dose: 60 mg Furosemide (Lasix -) 20 mg PO DAILY [facility] Last Admin: 04/23/17 10:48 Dose: 20 mg Isosorbide Dinitrate (Isordil -) 20 mg PO BIDISORDIL [facility] Last Admin: 04/23/17 17:43 Dose: 20 mg Lisinopril (Prinivil) 10 mg PO DAILY [facility] Last Admin: 04/23/17 10:48 Dose: 10 mg Metoclopramide HCl (Reglan -) 5 mg PO TIDAC [facility] Last Admin: 04/24/17 06:08 Dose: 5 mg Metoprolol Succinate (Toprol Xl -) 100 mg PO DAILY [facility] Metronidazole (Flagyl -) 250 mg PO TID [facility] Last Admin: 04/24/17 05:48 Dose: 250 mg Morphine Sulfate (Morphine Injection -) 2 mg IVPUSH Q4H PRN PRN Reason: PAIN LEVEL 6-10 Pancrelipase (Marlyn Dr 36,000 Units Capsule) 1 cap PO TIDCM [facility] Pantoprazole Sodium (Protonix -) 40 mg PO BID [facility] Last Admin: 04/23/17 21:14 Dose: 40 mg Pregabalin (Lyrica -) 100 mg PO BID [facility] Last Admin: 04/23/17 21:14 Dose: 100 mg Rivaroxaban (Xarelto -) 20 mg PO DAILY [facility] Last Admin: 04/23/17 10:48 Dose: 20 mg - Objective Vital Signs: Vital Signs Temperature 97.7 F 04/23/17 20:08 Pulse Rate 70 04/24/17 05:52 Respiratory Rate 18 04/24/17 05:52 Blood Pressure 110/71 04/24/17 05:52 O2 Sat by Pulse Oximetry (%) 90 L 04/23/17 14:54 Constitutional: Yes: No Distress Cardiovascular: Yes: Regular Rate and Rhythm Respiratory: Yes: Other (decreased breath sounds bilaterally c/w COPD, no rales) Gastrointestinal: Yes: Soft Edema: No Neurological: Yes: Alert Labs: CBC, BMP 04/22/17 07:42 04/22/17 07:42 INR, PTT INR 1.18 (0.82-1.09) H 04/22/17 02:05 Laboratory Tests 04/22/17 04/22/17 04/22/17 02:05 02:05 07:42 WBC 5.2 Hgb 13.0 Plt Count 162 INR 1.18 H Sodium Potassium BUN Creatinine Calcium Phosphorus Magnesium Creatine Kinase Troponin I < 0.02 Lipase 04/22/17 07:42 WBC Hgb Plt Count INR Sodium 140 Potassium 4.1 BUN 27 H Creatinine 1.1 Calcium 8.8 Phosphorus 3.8 Magnesium 2.0 Creatine Kinase 30 L Troponin I < 0.02 Lipase 559 H - ....Imaging Cat Scan: Report Reviewed EKG: Image Reviewed (TELE: NSVT; paced rhythm. PAF underlying) Problem List - Problems (1) Cardiomyopathy Code(s): I42.9 - CARDIOMYOPATHY, UNSPECIFIED Qualifiers: Cardiomyopathy type: ischemic Qualified Code(s): I25.5 - Ischemic cardiomyopathy (2) CAD (coronary artery disease) Code(s): I25.10 - ATHSCL HEART DISEASE OF [place] CORONARY ARTERY W/O ANG PCTRS Qualifiers: Coronary Disease-Associated Artery/Lesion type: [place] artery Associated angina: with stable angina (3) COPD (chronic obstructive pulmonary disease) Code(s): J44.9 - CHRONIC OBSTRUCTIVE PULMONARY DISEASE, UNSPECIFIED Qualifiers: COPD type: chronic bronchitis (4) PAD (peripheral artery disease) Code(s): I73.9 - PERIPHERAL VASCULAR DISEASE, UNSPECIFIED (5) Chronic stable angina Code(s): I20.8 - OTHER FORMS OF ANGINA PECTORIS (6) Abdominal bloating Code(s): R14.0 - ABDOMINAL DISTENSION (GASEOUS) (7) Epigastric pain Code(s): R10.13 - EPIGASTRIC PAIN (8) Gallstones without obstruction of gallbladder Code(s): K80.20 - CALCULUS OF GALLBLADDER W/O CHOLECYSTITIS W/O OBSTRUCTION Qualifiers: Cholelithiasis location: gallbladder Cholecystitis presence: without cholecystitis Qualified Code(s): K80.20 - Calculus of gallbladder without cholecystitis without obstruction (9) History of aortic aneurysm repair Code(s): Z98.890 - OTHER SPECIFIED POSTPROCEDURAL STATES; Z86.79 - PERSONAL HISTORY OF OTHER DISEASES OF THE CIRCULATORY SYSTEM (10) Pancreatic neoplasm Code(s): D49.0 - NEOPLASM OF UNSPECIFIED BEHAVIOR OF DIGESTIVE SYSTEM (11) Paroxysmal atrial fibrillation Code(s): I48.0 - PAROXYSMAL ATRIAL FIBRILLATION (12) Presence of cardiac pacemaker Code(s): Z95.0 - PRESENCE OF CARDIAC PACEMAKER (13) Stented coronary artery Code(s): Z95.5 - PRESENCE OF CORONARY ANGIOPLASTY IMPLANT AND GRAFT Assessment/Plan Assessment/Plan 76 year old man with a history of HTN, HLD, Afib, CAD s/p CABG s/p stents, PPM, ICM refused ICD in the past, PAD, Thoracic aortic aneursym, CVA with residual L sided weakness, a/w sob, acute exacerbation of COPD. Plan: 1. SOB-AECOPD:improved -CPAP PRN, inhalers, supplimental O2 2. Chronic systolic CHF with ICM-currently euvolemic -Cont po Lasix, Toprol and BRAULIO-I 3.AF:HR controlled -cont Toprol 100mg daily; recently increased due to NSVT. -Cont Xarelto 4. NSVT: -Cont Toprol -Most recent EF normal -Keep K+ and Mg 2+ normal -Not candidate for cath: too high risk, as outlined above and patient has refused any further invasive vascular interventions. 4. Angina: -cont current medical management. Deemed too high risk for cath due to CKD, Aneurysms, diffuse aortic calcific disease 5. Thoracic, abdominal and iliac aneurysm: -Stable at 4.8/4.9 on CTA. Not at surgical size, also a very high risk candidate for surgery. -Continue medical Rx, BP control, beta blockers and f/u CTA in 6-9 months -Of note, he has refused any further/additional interventions on his aneurysms. 6. Epigastric pain: -Cholelithiasis, Pancreatic masses -Further work up as per GI -He will likely opt for no invasive therapies, consistent with his prior medical decisions re his coronary and vascular conditions.
[2017-04-24] MEDS: LIPASE/PROTEASE/AMYLASE 36,000 UNIT CAPSULE PO SCH ×3 (09:18→17:38)
[2017-04-24] MEDS: DULoxetine HCL 30 MG CAPSULE.DR (FP) PO SCH (09:18)
[2017-04-24] MEDS: PANTOPRAZOLE 40 MG TABLET (FP) PO SCH ×2 (09:19→21:05)
[2017-04-24] MEDS: PREGABALIN 100 MG CAPSULE PO SCH ×2 (09:19→21:05)
[2017-04-24] MEDS: FUROSEMIDE 20 MG TABLET (FP) PO SCH (09:19)
[2017-04-24] MEDS: LISINOPRIL 10 MG TABLET (FP) PO SCH (09:19)
[2017-04-24] MEDS: ISOSORBIDE DINITRATE 20 MG TABLET (FP) PO SCH ×2 (09:20→17:37)
[2017-04-24] MEDS: BUDESONIDE/FORMETEROL FUMARATE 160/4.5 mcg INHALER IH SCH ×2 (09:22→21:06)
[2017-04-24] MEDS: ASPIRIN COATED 81 MG TABLET.EC PO SCH (10:37)
[2017-04-24] MEDS: RIVAROXABAN 20 MG TABLET PO SCH (10:37)
--- NOTE | 2017-04-24 11:49 | EKG ---
Test Reason : Blood Pressure : / mmHG Vent. Rate : 072 BPM Atrial Rate : 072 BPM P-R Int : 136 ms QRS Dur : 134 ms QT Int : 450 ms P-R-T Axes : 056 255 088 degrees QTc Int : 492 ms Atrial-sensed ventricular-paced rhythm Biventricular pacemaker detected ABNORMAL ECG WHEN COMPARED WITH ECG OF 21-APR-2017 17:19, PREMATURE VENTRICULAR COMPLEXES ARE NO LONGER PRESENT VENT. RATE HAS INCREASED BY 2 BPM Confirmed by KAMALA HAMMOND MD ([id number]) on 04/24/2017 11:49:09 AM Referred By: Berlin SANDERS Confirmed By:KAMALA HAMMOND MD
--- NOTE | 2017-04-24 13:28 | PN ---
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 (short form) - Note 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: Vascular surgery Pt seen and examined. Had EVAR with fem-fem bypass done in 2011 at [facility]. CT shows that the aneurysm is excluded. No need for any intervention at this time. Medical management. Keanu Hendricks DO
[2017-04-24] MEDS ORDERED: PT OWN MED DRAWER 7, Y5N ONE ×2 (14:40→17:34)
--- NOTE | 2017-04-24 19:10 | PN ---
GI 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 Subjective: no abdominal pain no nausea and no vomiting, no evidence of biliary colic and cholecytitis - Objective Vital Signs: Vital Signs Temperature 97.3 F L 04/24/17 17:00 Pulse Rate 68 04/24/17 17:00 Respiratory Rate 20 04/24/17 17:00 Blood Pressure 146/90 04/24/17 17:00 O2 Sat by Pulse Oximetry (%) 93 L 04/24/17 09:00 Constitutional: Well Nourished Eyes: Yes: Conjunctiva Clear HENT: Yes: Atraumatic, Tonsillar Exudate Cardiovascular: Yes: Regular Rate and Rhythm Respiratory: Yes: CTA Bilaterally ...Palpate: Yes: Soft. No: Firm/Rigid, Guarding, Hepatomegaly, Mass, Pulsatile Mass, Splenomegaly Labs: CBC, BMP 04/22/17 07:42 04/22/17 07:42 INR, PTT INR 1.18 (0.82-1.09) H 04/22/17 02:05 Problem List - Problems (1) Pancreatic neoplasm Assessment/Plan: R> will need to follow as an outpatient for EUS Code(s): D49.0 - NEOPLASM OF UNSPECIFIED BEHAVIOR OF DIGESTIVE SYSTEM (2) Epigastric pain Code(s): R10.13 - EPIGASTRIC PAIN (3) Abdominal bloating Code(s): R14.0 - ABDOMINAL DISTENSION (GASEOUS) (4) Gallstones without obstruction of gallbladder Code(s): K80.20 - CALCULUS OF GALLBLADDER W/O CHOLECYSTITIS W/O OBSTRUCTION Qualifiers: Cholelithiasis location: gallbladder Cholecystitis presence: without cholecystitis Qualified Code(s): K80.20 - Calculus of gallbladder without cholecystitis without obstruction
[2017-04-25] MEDS: metroNIDAZOLE 250 MG TABLET PO SCH (05:25)
[2017-04-25] MEDS: METOCLOPRAMIDE HCL 10 MG TABLET (FP) PO SCH (06:45)
[2017-04-25] MEDS: ALBUTEROL SO4 0.083% IH SOL 2.5 MG/3 ML VIAL.NEB. NEB SCH (08:22)
--- NOTE | 2017-04-25 08:29 | DS ---
Physical Examination Vital Signs: Vital Signs Temperature 98.1 F 04/25/17 04:58 Pulse Rate 67 04/25/17 04:58 Respiratory Rate 20 04/25/17 04:58 Blood Pressure 131/62 04/25/17 04:58 O2 Sat by Pulse Oximetry (%) 96 04/24/17 20:00 Findings/Remarks: tolerating diet Cardiovascular: Yes: S1, S2 Respiratory: Yes: Regular, CTA Bilaterally Gastrointestinal: Yes: Normal Bowel Sounds, Soft Labs: CBC, BMP 04/22/17 07:42 04/22/17 07:42 Discharge Summary Reason For Visit: PANCREATITIS CHOLELITHIASIS W/O OBSTRUCT Current Active Problems Abdominal bloating (Acute) CAD (coronary artery disease) (Acute) COPD (chronic obstructive pulmonary disease) (Acute) Cardiomyopathy (Acute) Chest pain (Acute) Chronic stable angina (Acute) Epigastric pain (Acute) Gallstones without obstruction of gallbladder (Acute) History of aortic aneurysm repair (Acute) PAD (peripheral artery disease) (Acute) Pancreatic neoplasm (Acute) Pancreatitis (Acute) Hospital Course: This is a 76 sushil old male with a past medical history of AAA s/p repair, TAA, gallstones,afib, DVT, CAD, CHR, COPD,CV, BPH, HTN, HLD who presented to the ED with report of epigastric pain yesterday since eating a berkowitz sandwich for breakfast. Pt denies CP at this time but did report same to ED. No longer with pain radiating to back after morphine. Pt reports feeling "a little better". Denies vomiting. ER course was notable for: (1) Lipase 6038 (2) troponin neg x 1 (3) US with gallstones, pancrease not visualized Recent Travel: pt denies PAST MEDICAL HISTORY: AAA s/p repair 2011 with perioperative CVA, TAA (4.9cm on 04/03/17), Afib, DVT, CAD, PPM, CHF, COPD, HTN, HLD, BPH, gallstones PAST SURGICAL HISTORY: stent 2000, 2016 CABG 2013, PPM AAA repair 12/2011 Social History: Smoking: quit many years ago, 80s? Alcohol: pt denies Drugs: pt denies - Problems (1) Gallstones without obstruction of gallbladder Assessment/Plan: trend lipase currently trending down but stil elevated GI on board Code(s): K80.20 - CALCULUS OF GALLBLADDER W/O CHOLECYSTITIS W/O OBSTRUCTION Qualifiers: Cholelithiasis location: gallbladder Cholecystitis presence: without cholecystitis Qualified Code(s): K80.20 - Calculus of gallbladder without cholecystitis without obstruction (2) Abdominal pain Assessment/Plan: resolved possibly secondary to pancreatitis dc iv hydration diet gi eval noted no further w/u at this time Code(s): R10.9 - UNSPECIFIED ABDOMINAL PAIN Qualifiers: Abdominal location: left lower quadrant Qualified Code(s): R10.32 - Left lower quadrant pain (3) COPD (chronic obstructive pulmonary disease) Assessment/Plan: bronchodilators Code(s): J44.9 - CHRONIC OBSTRUCTIVE PULMONARY DISEASE, UNSPECIFIED Qualifiers: COPD type: COPD with acute exacerbation Qualified Code(s): J44.1 - Chronic obstructive pulmonary disease with (acute) exacerbation (4) Afib Assessment/Plan: toprol and xarelto cardio Code(s): I48.91 - UNSPECIFIED ATRIAL FIBRILLATION (5) Hx of CABG Assessment/Plan: bb, asa,isordil Code(s): Z95.1 - PRESENCE OF AORTOCORONARY BYPASS GRAFT (6) Pancreatic masses Assessment/Plan: -gi consult noted--no further w/u per gi -pt high risk for eus -endo -d/w due to pt is a high risk she will discuss further work up with dr patel (5) Aneurysm Assessment/Plan: vascular consult noted--no further w/u needed Condition: Improved - Instructions Referrals: Alyssa Solomon [Primary Care Provider] - 1 Week jC Patel MD [Staff Physician] - 2 Weeks Disposition: HOME - Home Medications Comprehensive Discharge Medication List: Ambulatory Orders Albuterol 0.083% Nebulizer Suki [Ventolin 0.083% Nebulizer Soln -] 1 amp NEB TID 04/21/17 Aspirin [Adult Aspirin Regimen] 81 mg PO DAILY 04/21/17 Atorvastatin Ca [Lipitor] 10 mg PO HS 04/21/17 Budesonide/Formeterol Fumarate [SYMBICORT 160/4.5mcg -] 1 inh PO BID 04/21/17 Duloxetine HCl [Cymbalta -] 60 mg PO DAILY 04/21/17 Ferrous Sulfate 325 mg PO DAILY 04/21/17 Furosemide [Lasix] 20 mg PO DAILY 04/21/17 Isosorbide Dinitrate [Isordil -] 20 mg PO BID 04/21/17 Lisinopril [Zestril] 10 mg PO DAILY 04/21/17 Pregabalin [Lyrica] 100 mg PO BID 04/21/17 Rivaroxaban [Xarelto -] 20 mg PO DAILY 04/21/17 Lipase/Protease/Amylase [Marlyn Spaulding 36,000 Units Capsule] 1 cap PO TIDCM #90 capsule. 04/25/17 Metoclopramide HCl [Reglan -] 5 mg PO TIDAC #90 tablet 04/25/17 Metoprolol Succinate [Toprol XL -] 100 mg PO DAILY #30 tab.sr.24h 04/25/17 Metronidazole [Flagyl -] 250 mg PO TID #15 tablet 04/25/17 Pantoprazole Sodium [Protonix -] 40 mg PO BID #60 tablet.ec 04/25/17
--- NOTE | 2017-04-25 09:01 | PN ---
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, Physician - Current Medication List Current Medications: Active Medications Albuterol Sulfate (Ventolin 0.083% Nebulizer Soln -) 1 amp NEB RTID [facility] Last Admin: 04/25/17 08:22 Dose: 1 amp Aspirin (Ecotrin -) 81 mg PO DAILY [facility] Last Admin: 04/24/17 10:37 Dose: 81 mg Budesonide/Formoterol Fumarate (Symbicort 160/4.5mcg -) 2 puff IH BID [facility] Last Admin: 04/24/17 21:06 Dose: 2 puff Duloxetine HCl (Cymbalta -) 60 mg PO DAILY [facility] Last Admin: 04/24/17 09:18 Dose: 60 mg Furosemide (Lasix -) 20 mg PO DAILY [facility] Last Admin: 04/24/17 09:19 Dose: 20 mg Isosorbide Dinitrate (Isordil -) 20 mg PO BIDISORDIL [facility] Last Admin: 04/24/17 17:37 Dose: 20 mg Lisinopril (Prinivil) 10 mg PO DAILY [facility] Last Admin: 04/24/17 09:19 Dose: 10 mg Metoclopramide HCl (Reglan -) 5 mg PO TIDAC [facility] Last Admin: 04/25/17 06:45 Dose: 5 mg Metoprolol Succinate (Toprol Xl -) 100 mg PO DAILY [facility] Last Admin: 04/24/17 09:19 Dose: 100 mg Metronidazole (Flagyl -) 250 mg PO TID [facility] Last Admin: 04/25/17 05:25 Dose: 250 mg Pancrelipase ([place] Dr 36,000 Units Capsule) 1 cap PO TIDCM [facility] Last Admin: 04/24/17 17:38 Dose: 1 cap Pantoprazole Sodium (Protonix -) 40 mg PO BID [facility] Last Admin: 04/24/17 21:05 Dose: 40 mg Pregabalin (Lyrica -) 100 mg PO BID [facility] Last Admin: 04/24/17 21:05 Dose: 100 mg Rivaroxaban (Xarelto -) 20 mg PO DAILY [facility] Last Admin: 04/24/17 10:37 Dose: 20 mg - Objective Vital Signs: Vital Signs Temperature 98.1 F 04/25/17 04:58 Pulse Rate 67 04/25/17 04:58 Respiratory Rate 20 04/25/17 04:58 Blood Pressure 131/62 04/25/17 04:58 O2 Sat by Pulse Oximetry (%) 96 04/24/17 20:00 Labs: CBC, BMP 04/22/17 07:42 04/22/17 07:42 INR, PTT INR 1.18 (0.82-1.09) H 04/22/17 02:05 Problem List - Problems (1) Cardiomyopathy Code(s): I42.9 - CARDIOMYOPATHY, UNSPECIFIED Qualifiers: Cardiomyopathy type: ischemic Qualified Code(s): I25.5 - Ischemic cardiomyopathy (2) CAD (coronary artery disease) Code(s): I25.10 - ATHSCL HEART DISEASE OF [place] CORONARY ARTERY W/O ANG PCTRS Qualifiers: Coronary Disease-Associated Artery/Lesion type: [place] artery Associated angina: with stable angina (3) COPD (chronic obstructive pulmonary disease) Code(s): J44.9 - CHRONIC OBSTRUCTIVE PULMONARY DISEASE, UNSPECIFIED Qualifiers: COPD type: chronic bronchitis (4) PAD (peripheral artery disease) Code(s): I73.9 - PERIPHERAL VASCULAR DISEASE, UNSPECIFIED (5) Chronic stable angina Code(s): I20.8 - OTHER FORMS OF ANGINA PECTORIS (6) Abdominal bloating Code(s): R14.0 - ABDOMINAL DISTENSION (GASEOUS) (7) Epigastric pain Code(s): R10.13 - EPIGASTRIC PAIN (8) Gallstones without obstruction of gallbladder Code(s): K80.20 - CALCULUS OF GALLBLADDER W/O CHOLECYSTITIS W/O OBSTRUCTION Qualifiers: Cholelithiasis location: gallbladder Cholecystitis presence: without cholecystitis Qualified Code(s): K80.20 - Calculus of gallbladder without cholecystitis without obstruction (9) History of aortic aneurysm repair Code(s): Z98.890 - OTHER SPECIFIED POSTPROCEDURAL STATES; Z86.79 - PERSONAL HISTORY OF OTHER DISEASES OF THE CIRCULATORY SYSTEM (10) Pancreatic neoplasm Code(s): D49.0 - NEOPLASM OF UNSPECIFIED BEHAVIOR OF DIGESTIVE SYSTEM (11) Paroxysmal atrial fibrillation Code(s): I48.0 - PAROXYSMAL ATRIAL FIBRILLATION (12) Presence of cardiac pacemaker Code(s): Z95.0 - PRESENCE OF CARDIAC PACEMAKER (13) Stented coronary artery Code(s): Z95.5 - PRESENCE OF CORONARY ANGIOPLASTY IMPLANT AND GRAFT
--- NOTE | 2017-04-25 09:02 | PN ---
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, Physician Chief Complaint: no new complaints History of Present Illness: TELE: Paced - Current Medication List Current Medications: Active Medications Albuterol Sulfate (Ventolin 0.083% Nebulizer Soln -) 1 amp NEB RTID [facility] Last Admin: 04/25/17 08:22 Dose: 1 amp Aspirin (Ecotrin -) 81 mg PO DAILY [facility] Last Admin: 04/24/17 10:37 Dose: 81 mg Budesonide/Formoterol Fumarate (Symbicort 160/4.5mcg -) 2 puff IH BID [facility] Last Admin: 04/24/17 21:06 Dose: 2 puff Duloxetine HCl (Cymbalta -) 60 mg PO DAILY [facility] Last Admin: 04/24/17 09:18 Dose: 60 mg Furosemide (Lasix -) 20 mg PO DAILY [facility] Last Admin: 04/24/17 09:19 Dose: 20 mg Isosorbide Dinitrate (Isordil -) 20 mg PO BIDISORDIL [facility] Last Admin: 04/24/17 17:37 Dose: 20 mg Lisinopril (Prinivil) 10 mg PO DAILY [facility] Last Admin: 04/24/17 09:19 Dose: 10 mg Metoclopramide HCl (Reglan -) 5 mg PO TIDAC [facility] Last Admin: 04/25/17 06:45 Dose: 5 mg Metoprolol Succinate (Toprol Xl -) 100 mg PO DAILY [facility] Last Admin: 04/24/17 09:19 Dose: 100 mg Metronidazole (Flagyl -) 250 mg PO TID [facility] Last Admin: 04/25/17 05:25 Dose: 250 mg Pancrelipase (Creon Dr 36,000 Units Capsule) 1 cap PO TIDCM [facility] Last Admin: 04/24/17 17:38 Dose: 1 cap Pantoprazole Sodium (Protonix -) 40 mg PO BID [facility] Last Admin: 04/24/17 21:05 Dose: 40 mg Pregabalin (Lyrica -) 100 mg PO BID [facility] Last Admin: 04/24/17 21:05 Dose: 100 mg Rivaroxaban (Xarelto -) 20 mg PO DAILY [facility] Last Admin: 04/24/17 10:37 Dose: 20 mg - Objective Vital Signs: Vital Signs Temperature 98.1 F 04/25/17 04:58 Pulse Rate 67 04/25/17 04:58 Respiratory Rate 20 04/25/17 04:58 Blood Pressure 131/62 04/25/17 04:58 O2 Sat by Pulse Oximetry (%) 96 04/24/17 20:00 Constitutional: Yes: No Distress Cardiovascular: Yes: Regular Rate and Rhythm Respiratory: Yes: Other (decreased breath sounds at bases) Gastrointestinal: Yes: Soft Edema: No Neurological: Yes: Alert, Oriented Labs: CBC, BMP 04/22/17 07:42 04/22/17 07:42 INR, PTT INR 1.18 (0.82-1.09) H 04/22/17 02:05 Problem List - Problems (1) Cardiomyopathy Code(s): I42.9 - CARDIOMYOPATHY, UNSPECIFIED Qualifiers: Cardiomyopathy type: ischemic Qualified Code(s): I25.5 - Ischemic cardiomyopathy (2) CAD (coronary artery disease) Code(s): I25.10 - ATHSCL HEART DISEASE OF [place] CORONARY ARTERY W/O ANG PCTRS Qualifiers: Coronary Disease-Associated Artery/Lesion type: [place] artery Associated angina: with stable angina (3) COPD (chronic obstructive pulmonary disease) Code(s): J44.9 - CHRONIC OBSTRUCTIVE PULMONARY DISEASE, UNSPECIFIED Qualifiers: COPD type: chronic bronchitis (4) PAD (peripheral artery disease) Code(s): I73.9 - PERIPHERAL VASCULAR DISEASE, UNSPECIFIED (5) Chronic stable angina Code(s): I20.8 - OTHER FORMS OF ANGINA PECTORIS (6) Abdominal bloating Code(s): R14.0 - ABDOMINAL DISTENSION (GASEOUS) (7) Epigastric pain Code(s): R10.13 - EPIGASTRIC PAIN (8) Gallstones without obstruction of gallbladder Code(s): K80.20 - CALCULUS OF GALLBLADDER W/O CHOLECYSTITIS W/O OBSTRUCTION Qualifiers: Cholelithiasis location: gallbladder Cholecystitis presence: without cholecystitis Qualified Code(s): K80.20 - Calculus of gallbladder without cholecystitis without obstruction (9) History of aortic aneurysm repair Code(s): Z98.890 - OTHER SPECIFIED POSTPROCEDURAL STATES; Z86.79 - PERSONAL HISTORY OF OTHER DISEASES OF THE CIRCULATORY SYSTEM (10) Pancreatic neoplasm Code(s): D49.0 - NEOPLASM OF UNSPECIFIED BEHAVIOR OF DIGESTIVE SYSTEM (11) Paroxysmal atrial fibrillation Code(s): I48.0 - PAROXYSMAL ATRIAL FIBRILLATION (12) Presence of cardiac pacemaker Code(s): Z95.0 - PRESENCE OF CARDIAC PACEMAKER (13) Stented coronary artery Code(s): Z95.5 - PRESENCE OF CORONARY ANGIOPLASTY IMPLANT AND GRAFT Assessment/Plan Assessment/Plan 76 year old man with a history of HTN, HLD, Afib, CAD s/p CABG s/p stents, PPM, ICM refused ICD in the past, PAD, Thoracic aortic aneursym, CVA with residual L sided weakness, a/w sob, acute exacerbation of COPD. Plan: 1. SOB-AECOPD:improved -CPAP PRN, inhalers, supplimental O2 2. Chronic systolic CHF with ICM-currently euvolemic -Cont po Lasix, Toprol and BRAULIO-I 3.AF:HR controlled -cont Toprol 100mg daily; recently increased due to NSVT. -Cont Xarelto 4. NSVT: -Cont Toprol -Most recent EF normal -Keep K+ and Mg 2+ normal -Not candidate for cath: too high risk, as outlined above and patient has refused any further invasive vascular interventions. 4. Angina: -cont current medical management. Deemed too high risk for cath due to CKD, Aneurysms, diffuse aortic calcific disease 5. Thoracic, abdominal and iliac aneurysm: -Stable at 4.8/4.9 on CTA. Not at surgical size, also a very high risk candidate for surgery. -Continue medical Rx, BP control, beta blockers and f/u CTA in 6-9 months -Of note, he has refused any further/additional interventions on his aneurysms. 6. Epigastric pain: -Cholelithiasis, Pancreatic masses -Further work up as per GI -He will likely opt for no invasive therapies, consistent with his prior medical decisions re his coronary and vascular conditions.
[2017-04-25] MEDS ORDERED: PT OWN MED DRAWER 7, Y5N ONE (09:20)
[2017-04-25] MEDS: FUROSEMIDE 20 MG TABLET (FP) PO SCH (09:21)
[2017-04-25] MEDS: PANTOPRAZOLE 40 MG TABLET (FP) PO SCH (09:21)
[2017-04-25] MEDS: DULoxetine HCL 30 MG CAPSULE.DR (FP) PO SCH (09:21)
[2017-04-25] MEDS: LISINOPRIL 10 MG TABLET (FP) PO SCH (09:22)
[2017-04-25] MEDS: RIVAROXABAN 20 MG TABLET PO SCH (09:22)
[2017-04-25] MEDS: ASPIRIN COATED 81 MG TABLET.EC PO SCH (09:22)
[2017-04-25] MEDS: PREGABALIN 100 MG CAPSULE PO SCH (09:22)
[2017-04-25] MEDS: BUDESONIDE/FORMETEROL FUMARATE 160/4.5 mcg INHALER IH SCH (09:23)
[2017-04-25] MEDS: LIPASE/PROTEASE/AMYLASE 36,000 UNIT CAPSULE PO SCH (09:23)
[2017-04-25] MEDS: ISOSORBIDE DINITRATE 20 MG TABLET (FP) PO SCH (09:23)
[2017-04-25 10:48] VITALS: BP 141/85; PULSE 60; TEMP 97.4
== END 2017-04-25 11:36 | disposition home or self-care (01) | DRG 375 ==
LOC: JER 17:08 → JERBED 04-22 00:27 → UNDOADMOB 04-22 01:14 → OBSVTOIN 04-22 01:29 → J4W 04-22 11:31
PROVIDERS: ADMIT Internal Medicine; ATTEND Family Medicine
DX: D49.0 Neoplasm of unspecified behavior of digestive system (principal); I69.354 Hemiplegia and hemiparesis following cerebral infarction affecting left non-dominant side; I50.22 Chronic systolic (congestive) heart failure; J44.1 Chronic obstructive pulmonary disease with (acute) exacerbation; K86.2 Cyst of pancreas; I72.3 Aneurysm of iliac artery; K86.89 Other specified diseases of pancreas; I71.6 Thoracoabdominal aortic aneurysm, without rupture; Z95.1 Presence of aortocoronary bypass graft; I48.91 Unspecified atrial fibrillation; Z86.718 Personal history of other venous thrombosis and embolism; Z79.01 Long term (current) use of anticoagulants; Z99.81 Dependence on supplemental oxygen; I50.9 Heart failure, unspecified; E78.5 Hyperlipidemia, unspecified; N40.0 Benign prostatic hyperplasia without lower urinary tract symptoms; Z87.891 Personal history of nicotine dependence; I25.5 Ischemic cardiomyopathy; I25.119 Atherosclerotic heart disease of native coronary artery with unspecified angina pectoris; I73.9 Peripheral vascular disease, unspecified
CPT/HCPCS: 36415; 71045-TC; 74177-TC; 76700-TC; 76775-TC; 80048; 80053; 81003; 81015; 82550; 83690; 83735; 84100; 84478; 84484; 85025; 85610; 85651; 86038; 86140; 86850; 86900; 86901; 93005; 93010; 94640; 99285-25; G0378

== ENCOUNTER 2017-05-20 18:40 | Inpatient (IN) | payer OTHER ==
--- NOTE | 2017-05-20 18:44 | PDOC ---
Rapid Medical Evaluation Medical Evaluation: Allergies Allergy/AdvReac Type Severity Reaction Status Date / Time prednisone AdvReac Intermediate "too wired" Verified 04/21/17 17:24 05/20/17 18:42 admission last month for same c/o shortness of breath, cough with phlegm on home O2 3 liters for COPD baseline is 88%, on room air denies fever 05/20/17 18:44
[2017-05-20] MEDS ORDERED: ALBUTEROL SO4 2.5/IPRATROPIUM 0.5 INH SOL 3 ML VIAL.NEB. NEB ONE ×2 (19:50→20:53)
--- NOTE | 2017-05-20 20:08 | PDOC ---
Attending Attestation - HPI HPI: 05/20/17 20:19 The patient is a 76 year old male with a significant PMH of AAA s/p repair, AFib , past CVA, DVT (on Xarelto) CAD s/p CABG, CHF (s/p pacemaker placement) and COPD (on 3L home O2) who presents to the emergency department with increased shortness of breath, fever, and cough over the past 2 weeks. The patient reports being admitted last month for similar symptoms. The patient denies any sick contacts or recent travel. He denies leg swelling. He denies chest pain or dizziness. Allergies: NKA PCP: Dr. Solomon - Physicial Exam PE: 05/20/17 21:48 Vitals: Triage Vital signs reviewed General Appearance: no acute distress, well nourished well developed, Eyes: Pupils equal reactive round, extraocular movement intact Ears: TM's normal bilaterally; Nose: Nares patent bilaterally;no nasal congestion Throat: Posterior oropharynx without erythema, mucous membranes moist, Cardiac: Regular rate and rhythm, no murmurs, no rubs, no gallops, Lungs: (+) Diffuse wheezing. Extremities: Full range of motion to all extremities, no cyanosis, clubbing, or edema Neuro: AOX3; Cranial Nerves 2-12 grossly intact, Strength intact to all extremities, Sensation intact to all extremities Psych: normal mood, normal affect <Jamarcus Licona - Last Filed: 05/20/17 21:48> - Resident Resident Name: Favio Ware - ED Attending Attestation I have performed the following: I have examined & evaluated the patient, The case was reviewed & discussed with the resident, I agree w/resident's findings & plan, Exceptions are as noted - Medical Decision Making 05/21/17 04:13 76 years old past medical history significant AAA status post repair, A. fib, CVA, DVT on Zarrella to, CAD status post CABG, CHF, COPD presents with increasing shortness of breath fever cough over the last several weeks. Differential diagnosis includes COPD pneumonia influenza No fever no white count EKG paced Wheezing on examination Treated with DuoNeb's Patient improving but still slightly symptomatic. We'll observe overnight for further management of COPD exacerbation. <Walter Harris - Last Filed: 05/21/17 04:14>
[2017-05-20 20:28] LABS: VENOUS PC02 50.6 mmHg (38-52); VENOUS PH 7.33 (7.32-7.42)
[2017-05-20 20:29] LABS: VENOUS PO2 65.3 mmHg (28-48)
[2017-05-20 20:34] LABS: BASO % 0.5 % (0-2.0); EOS % 3.8 % (0-4.5); HEMATOCRIT 42.1 % (35.4-49); HEMOGLOBIN 13.6 GM/dL (11.7-16.9); LYMPH % 12.1 % (8-40); MCH 28.4 pg (25.7-33.7); MCHC 32.3 g/dl (32.0-35.9); MEAN CELL VOLUME 87.8 fl (80-96); MEAN PLT VOLUME 9.8 fl (7.5-11.1); MONO % 9.4 % (3.8-10.2); NEUT % 74.2 % (42.8-82.8); PLATELET COUNT 210 K/MM3 (134-434); RBC 4.79 M/mm3 (4.00-5.60); RDW 17.1 % (11.9-15.9); WHITE BLOOD COUNT 7.8 K/mm3 (4.0-10.0)
[2017-05-20 20:45] LABS: INR 2.01 (0.82-1.09); PROTHROMBIN TIME (PATIENT) 22.7 SEC (9.98-11.88)
[2017-05-20 20:47] LABS: ACTIVATED PTT 54.5 SECONDS (26.9-34.4)
[2017-05-20 21:03] LABS: ALBUMIN 3.3 g/dl (3.4-5.0); ANION GAP 7 (8-16); BILIRUBIN,TOTAL 0.3 mg/dL (0.2-1.0); BLOOD UREA NITROGEN 23 mg/dL (7-18); CALCIUM 8.3 mg/dL (8.5-10.1); CHLORIDE 104 mmol/L (98-107); CO2 29 mmol/L (21-32); CREATININE 1.5 mg/dL (0.7-1.3); GLUCOSE,RANDOM 86 mg/dL (74-106); POTASSIUM 4.1 mmol/L (3.5-5.1); SGOT/AST 12 U/L (15-37); SGPT/ALT 12 U/L (12-78); SODIUM 140 mmol/L (136-145); TOT PROT 6.5 g/dl (6.4-8.2)
[2017-05-20 21:06] LABS: ALK PHOS 48 U/L (45-117)
--- NOTE | 2017-05-20 21:22 | PDOC ---
History of Present Illness - General Chief Complaint: Shortness of Breath Stated Complaint: COLD SYMPTOMS Time Seen by Provider: 05/20/17 19:39 History Source: Patient, Family Exam Limitations: Dementia - History of Present Illness Initial Comments: 05/20/17 21:14 Patient is a 76M with history of AAA s/p repair, dementia, afib, dvt, cvd, cva w / residual sensory loss in left arm and fixed left pupil, HTN and HLD here today complaining of shortness of breath. Patient's states that he's been tachypneic, short of breath, and coughing for the past several weeks. Denies fevers, chlls, nausea, vomiting. Endorses some associated chest pain. Denies leg pain, leg swelling. Patient was recently hospitalized for gallstone pancreatitis from 04/22-04/25. Past History - Past Medical History Allergies/Adverse Reactions: Allergies Allergy/AdvReac Type Severity Reaction Status Date / Time No Known Allergies Allergy Verified 05/20/17 18:44 Home Medications: Ambulatory Orders Albuterol 0.083% Nebulizer Suki [Ventolin 0.083% Nebulizer Soln -] 1 amp NEB TID 04/21/17 Aspirin [Adult Aspirin Regimen] 81 mg PO DAILY 04/21/17 Atorvastatin Ca [Lipitor] 10 mg PO HS 04/21/17 Budesonide/Formeterol Fumarate [SYMBICORT 160/4.5mcg -] 1 inh PO BID 04/21/17 Duloxetine HCl [Cymbalta -] 60 mg PO DAILY 04/21/17 Ferrous Sulfate 325 mg PO DAILY 04/21/17 Furosemide [Lasix] 20 mg PO DAILY 04/21/17 Lisinopril [Zestril] 10 mg PO DAILY 04/21/17 Pregabalin [Lyrica] 100 mg PO BID 04/21/17 Rivaroxaban [Xarelto -] 20 mg PO DAILY 04/21/17 Lipase/Protease/Amylase [Marlyn Spaulding 36,000 Units Capsule] 1 cap PO TIDCM #90 capsule. 04/25/17 Metoclopramide HCl [Reglan -] 5 mg PO TIDAC #90 tablet 04/25/17 Metoprolol Succinate [Toprol XL -] 75 mg PO DAILY 05/20/17 Anemia: No Asthma: No Cancer: No Cardiac Disorders: Yes (STENTS 2000/STENT IN 2015) CVA: Yes (01/23/12/DURING TRIPLE AA REPAIR) COPD: Yes CHF: No Dementia: No (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) Diabetes: No GI Disorders: No Disorders: Yes (BPH) HTN: Yes Hypercholesterolemia: Yes Liver Disease: No Seizures: No Thyroid Disease: No - Surgical History Abdominal Surgery: Yes (S/P AAA) Appendectomy: No Cardiac Surgery: Yes (BYPASS 2013, PPM/ AAA REPAIR/2011) Cholecystectomy: No Lung Surgery: No Neurologic Surgery: No Orthopedic Surgery: No - Immunization History Immunization Up to Date: Yes - Suicide/Smoking/Psychosocial Hx Smoking History: Unknown if ever smoked Have you smoked in the past 12 months: No If you are a former smoker, when did you quit?: 2007 Cigars Per Day: 0 Information on smoking cessation initiated: No Hx Alcohol Use: No Drug/Substance Use Hx: No Substance Use Type: None Hx Substance Use Treatment: No Review of Systems - Review of Systems Comments:: 05/20/17 21:18 GENERAL/CONSTITUTIONAL: No fever or chills. HEAD, EYES, EARS, NOSE AND THROAT: No change in vision. Positive for sore throat. CARDIOVASCULAR: Positive for chest pain and shortness of breath RESPIRATORY: No cough, wheezing, or hemoptysis. GASTROINTESTINAL: No nausea, vomiting, diarrhea or constipation. GENITOURINARY: No dysuria, frequency, or change in urination. MUSCULOSKELETAL: No joint or muscle swelling or pain. No neck or back pain. SKIN: No rash NEUROLOGIC: No headache, loss of consciousness, or change in strength/sensation. HEMATOLOGIC/LYMPHATIC: No anemia, easy bleeding, or history of blood clots. ALLERGIC/IMMUNOLOGIC: No hives or skin allergy. *Physical Exam - Vital Signs Last Vital Signs Temp Pulse Resp BP Pulse Ox 98.2 F 80 28 H 150/63 90 L 05/20/17 18:46 05/20/17 18:46 05/20/17 18:46 05/20/17 18:46 05/20/17 18:46 - Physical Exam Comments: 05/20/17 21:19 GENERAL: Awake, alert, and fully oriented, tachypneic, possibly jaundiced HEAD: No signs of trauma, normocephalic, atraumatic EYES: EOMI, sclera anicteric, conjunctiva clear ENT: Auricles normal inspection, hearing grossly normal, nares patent, oropharynx clear without exudates. Moist mucosa NECK: Normal ROM, supple, no lymphadenopathy, JVD, or masses LUNGS: Tachypneic, speaks short sentences, poor air movement and diffuse wheezing HEART: Regular rate and rhythm, normal S1 and S2, no murmurs, rubs or gallops, peripheral pulses normal and equal bilaterally. ABDOMEN: Soft, nontender, normoactive bowel sounds. No guarding, no rebound. No masses EXTREMITIES: Normal inspection, Normal range of motion, no edema. No clubbing or cyanosis. NEUROLOGICAL: Speech at baseline, fixed left pupil, decreased sensation in left arm. Moving all extremities SKIN: Warm, Dry, normal turgor, no rashes or lesions noted. ED Treatment Course - LABORATORY CBC & Chemistry Diagram: 05/20/17 20:10 05/20/17 20:10 - ADDITIONAL ORDERS Additional order review: Laboratory Results 05/20/17 05/20/17 05/20/17 20:10 20:10 20:10 PT with INR INR PTT (Actin FS) VBG pH 7.33 POC VBG pCO2 50.6 POC VBG pO2 65.3 H D Mixed VBG HCO3 25.7 H Sodium 140 Potassium 4.1 Chloride 104 Carbon Dioxide 29 Anion Gap 7 L BUN 23 H Creatinine 1.5 H D Creat Clearance w eGFR 45.26 Random Glucose 86 D Lactic Acid 1.1 Calcium 8.3 L Total Bilirubin 0.3 D AST 12 L D ALT 12 D Alkaline Phosphatase 48 Creatine Kinase 86 Troponin I < 0.02 Total Protein 6.5 Albumin 3.3 L 05/20/17 20:10 PT with INR 22.70 H INR 2.01 H D PTT (Actin FS) 54.5 H D VBG pH POC VBG pCO2 POC VBG pO2 Mixed VBG HCO3 Sodium Potassium Chloride Carbon Dioxide Anion Gap BUN Creatinine Creat Clearance w eGFR Random Glucose Lactic Acid Calcium Total Bilirubin AST ALT Alkaline Phosphatase Creatine Kinase Troponin I Total Protein Albumin 05/20/17 20:10 RBC 4.79 MCV 87.8 MCHC 32.3 RDW 17.1 H MPV 9.8 Neutrophils % 74.2 Lymphocytes % 12.1 Monocytes % 9.4 Eosinophils % 3.8 Basophils % 0.5 - RADIOLOGY Radiology Studies Ordered: Category Date Time Status CHEST X-RAY PORTABLE* [RAD] Stat Radiology 05/20/17 19:48 Ordered - Medications Given in the ED: ED Medications Discontinued Medications Generic Name Dose Route Start Last Admin Trade Name Ashish PRN Reason Stop Dose Admin Albuterol/Ipratropium 3 amp 05/20/17 19:50 05/20/17 20:50 Duoneb - NEB 05/20/17 19:51 3 amp ONCE ONE Administration Medical Decision Making - Medical Decision Making 05/20/17 21:22 Patient is a 76M with history of AAA s/p repair, dementia, afib, dvt, cvd, cva w / residual sensory loss in left arm and fixed left pupil, HTN and HLD here today complaining of shortness of breath. Vital signs notable for tachypnea. Pending rectal temp. PE notable for decreased breath sounds and wheezing. Differential diagnosis includes, but is not limited to: COPD exacerbation, CHF, PNA. EKG shows atrial sensed ventricular paced rhythm with rate of 76. Left axis deviation. Normal QRS interval. 05/20/17 21:43 Laboratory Tests 05/20/17 05/20/17 05/20/17 20:10 20:10 20:10 WBC 7.8 D Hgb 13.6 Hct 42.1 Plt Count 210 D INR 2.01 H D POC VBG pCO2 50.6 BUN Creatinine Lactic Acid Troponin I 05/20/17 05/20/17 20:10 20:10 WBC Hgb Hct Plt Count INR POC VBG pCO2 BUN 23 H Creatinine 1.5 H D Lactic Acid 1.1 Troponin I < 0.02 CBC normal. INR elevated to 2.0 from 1.2 on last visit. VBG shows normal pCO2 level. Cr elevated to 1.5, up from baseline of 1.1. Lactic acid normal. Troponin undetectable. CXR shows no infiltrate, no acute fluid overload. 05/20/17 21:59 Dr Howe accepted to med/surg. Patient's respiratory rate in 18-22 during reassessment. Moving air, no longer wheezing. *DC/Admit/Observation/Transfer Diagnosis at time of Disposition: COPD (chronic obstructive pulmonary disease) - Discharge Dispostion Condition at time of disposition: Stable Admit: Yes - Referrals Referrals: Alyssa Solomon [Primary Care Provider] - - Patient Instructions - Post Discharge Activity
[2017-05-20] MEDS ORDERED: methylPREDNISolone NA SUCC 125 MG/2 ML VIAL IVPUSH ONE (21:58)
--- NOTE | 2017-05-20 22:10 | PN ---
Teaching Attending Note Name of Resident: Shyam Weller ATTENDING PHYSICIAN STATEMENT I saw and evaluated the patient. I reviewed the resident's note and discussed the case with the resident. I agree with the resident's findings and plan as documented. SUBJECTIVE: 76 M with Pmhx. of AAA S/P repair, dementia, AF on Xarelto, dvt, cva w residual sensory loss L. Arm and fixed L. Pupil, HTN, HLD, ASHD, who presents with shortness of breath. States this has been going on for several weeks now. Notes he was recently hospitilized around a month ago for gallstone pancreatitis. States his breathing is much improved currently. Denies any chest pain or pressure. No fevers or chills. No N, V,D. OBJECTIVE: Physical: VS: Vital Signs Period Temp Pulse Resp BP Sys/Varghese Pulse Ox Last 24 Hr 98.2 F 80 28 150/63 90 GEN: NAD, Resting in bed, Speaking Full Sentences HEENT: NCAT, R Pupil equal and reactive, throat without erythema or exudates CARD: RRR S1, S2 RESP: Mild bilateral expiratory wheezing ABD: BSx4, NTD to palpation EXT: - C/C/E CBCD WBC 7.8 K/mm3 (4.0-10.0) D 05/20/17 20:10 RBC 4.79 M/mm3 (4.00-5.60) 05/20/17 20:10 Hgb 13.6 GM/dL (11.7-16.9) 05/20/17 20:10 Hct 42.1 % (35.4-49) 05/20/17 20:10 MCV 87.8 fl (80-96) 05/20/17 20:10 MCHC 32.3 g/dl (32.0-35.9) 05/20/17 20:10 RDW 17.1 % (11.9-15.9) H 05/20/17 20:10 Plt Count 210 K/MM3 (134-434) D 05/20/17 20:10 MPV 9.8 fl (7.5-11.1) 05/20/17 20:10 CMP Sodium 140 mmol/L (136-145) 05/20/17 20:10 Potassium 4.1 mmol/L (3.5-5.1) 05/20/17 20:10 Chloride 104 mmol/L (98-107) 05/20/17 20:10 Carbon Dioxide 29 mmol/L (21-32) 05/20/17 20:10 Anion Gap 7 (8-16) L 05/20/17 20:10 BUN 23 mg/dL (7-18) H 05/20/17 20:10 Creatinine 1.5 mg/dL (0.7-1.3) H D 05/20/17 20:10 Creat Clearance w eGFR 45.26 (>60) 05/20/17 20:10 Random Glucose 86 mg/dL (74-106) D 05/20/17 20:10 Calcium 8.3 mg/dL (8.5-10.1) L 05/20/17 20:10 Total Bilirubin 0.3 mg/dL (0.2-1.0) D 05/20/17 20:10 AST 12 U/L (15-37) L D 05/20/17 20:10 ALT 12 U/L (12-78) D 05/20/17 20:10 Alkaline Phosphatase 48 U/L (45-117) 05/20/17 20:10 Total Protein 6.5 g/dl (6.4-8.2) 05/20/17 20:10 Albumin 3.3 g/dl (3.4-5.0) L 05/20/17 20:10 CARDIAC ENZYMES Creatine Kinase 86 IU/L (39-308) 05/20/17 20:10 Troponin I < 0.02 ng/ml (0.00-0.05) 05/20/17 20:10 Home Medications Medication Instructions Recorded Albuterol 0.083% Nebulizer Suki 1 amp NEB TID 04/21/17 [Ventolin 0.083% Nebulizer Soln -] Aspirin [Adult Aspirin Regimen] 81 mg PO DAILY 04/21/17 Atorvastatin Ca [Lipitor] 10 mg PO HS 04/21/17 Budesonide/Formeterol Fumarate 1 inh PO BID 04/21/17 [SYMBICORT 160/4.5mcg -] Duloxetine HCl [Cymbalta -] 60 mg PO DAILY 04/21/17 Ferrous Sulfate 325 mg PO DAILY 04/21/17 Furosemide [Lasix] 20 mg PO DAILY 04/21/17 Lisinopril [Zestril] 10 mg PO DAILY 04/21/17 Pregabalin [Lyrica] 100 mg PO BID 04/21/17 Rivaroxaban [Xarelto -] 20 mg PO DAILY 04/21/17 Lipase/Protease/Amylase [Marlyn Spaulding 1 cap PO TIDCM #90 capsule. 04/25/17 36,000 Units Capsule] Metoclopramide HCl [Reglan -] 5 mg PO TIDAC #90 tablet 04/25/17 Metoprolol Succinate [Toprol XL -] 75 mg PO DAILY 05/20/17 CXR- No acute process EKG- Paced ASSESSMENT AND PLAN: 76 M with Pmhx. of AAA S/P repair, dementia, dvt, cva w residual sensory loss L. Arm and fixed L. Pupil, HTN, HLD, CAD, being admitted for acute exacerbation of copd 1.) Acute Exacerbation of COPD - Duonebs Atc/PRN - C/W Symbicort - Solu-Medrol - C/W 02 - Pulm Consult 2.) Hx. OF CVA - C/W ASA 3.) AFib - C/W Xarelto - BB in Am 4.) CAD - C/W ASA - BB, Statin, 5.) DVT - On Xarelto 6.) Acute renal failure/CKD - BAse Cr 1.3 - Hold [place] - U urea - Trend 7.) DVT Ppx - On Xarelto Place in Med-Sx
[2017-05-20] MEDS ORDERED: ALBUTEROL SO4 0.083% IH SOL 2.5 MG/3 ML VIAL.NEB. NEB PRN (22:40)
[2017-05-20] MEDS: ALBUTEROL SO4 2.5/IPRATROPIUM 0.5 INH SOL 3 ML VIAL.NEB. NEB SCH (23:05)
--- NOTE | 2017-05-20 23:36 | HP ---
CHIEF COMPLAINT: SOB PCP: Dr. Escamilla HISTORY OF PRESENT ILLNESS: Patient is demented. 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 Patient states that that cough is productive of white-yellow sputum. Patient denies chest pain , nausea, vomiting, leg pain or leg swelling. Patient states that he feels better after treatment in the ED. 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 COPD Afib HTN HLD CAD PAST SURGICAL HISTORY: AAA repair CABG pacemaker insertion Social History: Smoking: smoked 2 PPD for 25 years; quit Alcohol: denies Drugs: denies Family History: non-contributory Allergies No Known Allergies Allergy (Verified 05/20/17 18:44) HOME MEDICATIONS: Home Medications Medication Instructions Recorded Albuterol 0.083% Nebulizer Suki 1 amp NEB TID 04/21/17 [Ventolin 0.083% Nebulizer Soln -] Aspirin [Adult Aspirin Regimen] 81 mg PO DAILY 04/21/17 Atorvastatin Ca [Lipitor] 10 mg PO HS 04/21/17 Budesonide/Formeterol Fumarate 1 inh PO BID 04/21/17 [SYMBICORT 160/4.5mcg -] Duloxetine HCl [Cymbalta -] 60 mg PO DAILY 04/21/17 Ferrous Sulfate 325 mg PO DAILY 04/21/17 Furosemide [Lasix] 20 mg PO DAILY 04/21/17 Lisinopril [Zestril] 10 mg PO DAILY 04/21/17 Pregabalin [Lyrica] 100 mg PO BID 04/21/17 Rivaroxaban [Xarelto -] 20 mg PO DAILY 04/21/17 Lipase/Protease/Amylase [Marlyn Spaulding 1 cap PO TIDCM #90 capsule. 04/25/17 36,000 Units Capsule] Metoclopramide HCl [Reglan -] 5 mg PO TIDAC #90 tablet 04/25/17 Metoprolol Succinate [Toprol XL -] 75 mg PO DAILY 05/20/17 REVIEW OF SYSTEMS CONSTITUTIONAL: Absent: fever, chills, diaphoresis, generalized weakness, malaise, loss of appetite, weight change HEENT: Absent: rhinorrhea, nasal congestion, throat pain, throat swelling, difficulty swallowing, mouth swelling, ear pain, eye pain, visual changes CARDIOVASCULAR: Absent: chest pain, syncope, palpitations, irregular heart rate, lightheadedness , peripheral edema RESPIRATORY: Absent: orthopnea, wheezing, stridor, hemoptysis GASTROINTESTINAL: Absent: abdominal pain, abdominal distension, nausea, vomiting, diarrhea, constipation, melena, hematochezia GENITOURINARY: Absent: dysuria, frequency, urgency, hesitancy, hematuria, flank pain, genital pain MUSCULOSKELETAL: Absent: myalgia, arthralgia, joint swelling, back pain, neck pain SKIN: Absent: rash, itching, pallor HEMATOLOGIC/IMMUNOLOGIC: Absent: easy bleeding, easy bruising, lymphadenopathy, frequent infections ENDOCRINE: Absent: unexplained weight gain, unexplained weight loss, heat intolerance, cold intolerance NEUROLOGIC: Absent: headache, focal weakness or paresthesias, dizziness, unsteady gait, seizure, mental status changes, bladder or bowel incontinence PSYCHIATRIC: Absent: anxiety, depression, suicidal or homicidal ideation, hallucinations. PHYSICAL EXAMINATION Vital Signs - 24 hr 05/20/17 05/20/17 18:46 19:15 Temperature 98.2 F Pulse Rate 80 83 Respiratory 28 H Rate Blood Pressure 150/63 O2 Sat by Pulse 90 L 100 Oximetry (%) GENERAL: Awake, alert, and fully oriented, in no acute distress. HEAD: Normal with no signs of trauma. EARS, NOSE, THROAT: Ears normal, nares patent, oropharynx clear without exudates. Moist mucous membranes. LUNGS: Breath sounds equal, decreased air entry bilaterally. No wheezes, and no crackles. No accessory muscle use. HEART: Regular rate and rhythm, normal S1 and S2 without murmur, rub or gallop. ABDOMEN: Soft, nontender, not distended, normoactive bowel sounds, no guarding, no rebound, no masses. No hepatomegaly or splenomegaly. LOWER EXTREMITIES: 2+ pulses, warm, well-perfused. No calf tenderness. No peripheral edema. NEUROLOGICAL: Cranial nerves II-X intact. Normal speech. Laboratory Results - last 24 hr 05/20/17 05/20/1705/20/18 20:10 20:10 20:10 WBC 7.8 D RBC 4.79 Hgb 13.6 Hct 42.1 MCV 87.8 MCH 28.4 MCHC 32.3 RDW 17.1 H Plt Count 210 D MPV 9.8 Neutrophils % 74.2 Lymphocytes % 12.1 Monocytes % 9.4 Eosinophils % 3.8 Basophils % 0.5 PT with INR 22.70 H INR 2.01 H D PTT (Actin FS) 54.5 H D VBG pH 7.33 POC VBG pCO2 50.6 POC VBG pO2 65.3 H D Mixed VBG HCO3 25.7 H Sodium Potassium Chloride Carbon Dioxide Anion Gap BUN Creatinine Creat Clearance w eGFR Random Glucose Lactic Acid Calcium Total Bilirubin AST ALT Alkaline Phosphatase Creatine Kinase Troponin I Total Protein Albumin 05/20/17 05/20/17 20:10 20:10 WBC RBC Hgb Hct MCV MCH MCHC RDW Plt Count MPV Neutrophils % Lymphocytes % Monocytes % Eosinophils % Basophils % PT with INR INR PTT (Actin FS) VBG pH POC VBG pCO2 POC VBG pO2 Mixed VBG HCO3 Sodium 140 Potassium 4.1 Chloride 104 Carbon Dioxide 29 Anion Gap 7 L BUN 23 H Creatinine 1.5 H D Creat Clearance w eGFR 45.26 Random Glucose 86 D Lactic Acid 1.1 Calcium 8.3 L Total Bilirubin 0.3 D AST 12 L D ALT 12 D Alkaline Phosphatase 48 Creatine Kinase 86 Troponin I < 0.02 Total Protein 6.5 Albumin 3.3 L ASSESSMENT/PLAN: The patient is a 76 yo m w/ PMH COPD, dementia, afib, CAD being admitted for COPD exacrbation. #Acute COPD exacerbation -Supplemental O2 (3l [place] home dose) to maintain o2 sat 90-95 -duonebs Q4H standing -albuterol Q4H PRN -Solu-medrol 60mg Q12 -pulmonology consult -azithromycin 250 daily #acute on chronic kidney injury -Baseline creatinine 1.3 -trend creatinine -hold BRAULIO -urine urea #Afib -c/w xarelto -toprolol in am #CAD -c/w home toprolol, statin, ASA #FEN -no fluids indicated -lytes WNL -sodium controlled diet #prophylaxis -patient on theraputic AC #Dispo -admit med-surg Visit type - Emergency Visit Emergency Visit: Yes Care time: The patient presented to the Emergency Department on the above date and was hospitalized for further evaluation of their emergent condition. - New Patient This patient is new to me today: Yes Date on this admission: 05/20/17 - Critical Care Critical Care patient: No Hospitalist Screening - Colonoscopy Questionnaire Colonoscopy Questionnaire: Colonoscopy Questionnaire - Patient: 50 - 75 years old and never had a screening colonoscopy: Unknown History of colon or rectal polyps, or CA: Unknown History of IBD, Crohn's disease or UC: Unknown History of abdominal radiation therapy as a child: Unknown - Relative: 1 with colon or rectal CA, or polyps at age 60 or younger: Unknown Colon or rectal CA diagnosed at age 45 or younger: Unknown Multiple relatives with colon or rectal CA: Unknown - Outcome: Screening Result: Negative Screen
[2017-05-21] MEDS: methylPREDNISolone NA SUCC 125 MG/2 ML VIAL IVPB SCH ×3 (00:21→22:38)
[2017-05-21 00:31] VITALS: BMI 23.3
[2017-05-21] MEDS ORDERED: PT OWN MED DRAWER 7, Y5N ONE ×6 (06:15→21:15)
[2017-05-21 06:58] LABS: BASO % 0.4 % (0-2.0); EOS % 4.5 % (0-4.5); HEMATOCRIT 41.2 % (35.4-49); HEMOGLOBIN 13.2 GM/dL (11.7-16.9); LYMPH % 13.2 % (8-40); MCH 28.2 pg (25.7-33.7); MCHC 32.1 g/dl (32.0-35.9); MEAN CELL VOLUME 87.7 fl (80-96); MEAN PLT VOLUME 9.2 fl (7.5-11.1); NEUT % 71.9 % (42.8-82.8); PLATELET COUNT 195 K/MM3 (134-434); RDW 16.7 % (11.9-15.9); WHITE BLOOD COUNT 7.3 K/mm3 (4.0-10.0)
[2017-05-21 07:42] LABS: ALBUMIN 3.1 g/dl (3.4-5.0); ANION GAP 5 (8-16); BLOOD UREA NITROGEN 21 mg/dL (7-18); CALCIUM 8.1 mg/dL (8.5-10.1); CHLORIDE 105 mmol/L (98-107); CO2 31 mmol/L (21-32); GLUCOSE,RANDOM 84 mg/dL (74-106); MAGNESIUM 2.1 mg/dL (1.8-2.4); POTASSIUM 4.2 mmol/L (3.5-5.1); SODIUM 141 mmol/L (136-145)
[2017-05-21 07:46] LABS: ALK PHOS 44 U/L (45-117); BILIRUBIN,TOTAL 0.5 mg/dL (0.2-1.0); CREATININE 1.2 mg/dL (0.7-1.3); PHOSPHOROUS 3.3 mg/dL (2.5-4.9); SGOT/AST 10 U/L (15-37); SGPT/ALT 12 U/L (12-78)
[2017-05-21] MEDS: LIPASE/PROTEASE/AMYLASE 36,000 UNIT CAPSULE PO SCH ×3 (07:59→17:57)
[2017-05-21] MEDS: ALBUTEROL SO4 2.5/IPRATROPIUM 0.5 INH SOL 3 ML VIAL.NEB. NEB SCH ×4 (08:05→21:25)
[2017-05-21] MEDS ORDERED: AZITHROMYCIN IVPB 250 MG in DEXTROSE 5%-WATER - 250 ML IVPB SCH (10:00)
[2017-05-21] MEDS: PREGABALIN 50 MG CAPSULE PO SCH ×2 (10:03→21:16)
[2017-05-21] MEDS: metoPROLOL SUCCINATE 25 MG TAB.SR.24H (FP) PO SCH (10:03)
[2017-05-21] MEDS: ASPIRIN COATED 81 MG TABLET.EC PO SCH (10:04)
[2017-05-21] MEDS: DULoxetine HCL 30 MG CAPSULE.DR (FP) PO SCH (10:04)
[2017-05-21] MEDS: RIVAROXABAN 20 MG TABLET PO SCH (10:04)
[2017-05-21] MEDS: FUROSEMIDE 20 MG TABLET (FP) PO SCH (10:04)
[2017-05-21] MEDS: BUDESONIDE/FORMETEROL FUMARATE 160/4.5 mcg INHALER IH SCH ×2 (10:05→21:16)
--- NOTE | 2017-05-21 10:36 | CON.PULM ---
Consult Consult Specialty:: PULM/CCM Referred by:: SHARON Reason for Consultation:: SOB - History of Present Illness Chief Complaint: SOB History of Present Illness: 76 M, COPD apparently on 3 L [place] O2, AAA S/P repair, CABG, PPM< dementia, AFib on Xarelto, DVT, CVA, with residual sensory loss Left Arm and fixed L. Pupil, HTN, HLD, and ASHD. Admitted via the ER due to increased SOB, BULLOCK, and cough over the past few weeks. No travel history or sick contacts. No specific fever or chills. No hemoptysis or night sweats. Patient was admitted about 1 month ago for similar symptoms. 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 Cardio/Vascular: Yes: AFIB, Aneurysm, CAD, CHF, HTN, Hyperlipdemia, Murmur, Other (peripheral artery disease) Pulmonary: Yes: COPD Renal/: Yes: BPH - Past Surgical History Past Surgical History: Yes: AAA Repair, Bypass (lower ext), Permanent Pacemaker , Stent (cardiac x 2) - Alcohol/Substance Use Hx Alcohol Use: No History of Substance Use: reports: None - Smoking History Smoking history: Never smoked Have you smoked in the past 12 months: No If you are a former smoker, when did you quit?: 2007 - Social History Usual Living Arrangement: With Spouse ADL: Family Assistance History of Recent Travel: No Home Medications - Allergies Allergies/Adverse Reactions: Allergies Allergy/AdvReac Type Severity Reaction Status Date / Time No Known Allergies Allergy Verified 05/20/17 18:44 - Home Medications Home Medications: Ambulatory Orders Albuterol 0.083% Nebulizer Suki [Ventolin 0.083% Nebulizer Soln -] 1 amp NEB TID 04/21/17 Aspirin [Adult Aspirin Regimen] 81 mg PO DAILY 04/21/17 Atorvastatin Ca [Lipitor] 10 mg PO HS 04/21/17 Budesonide/Formeterol Fumarate [SYMBICORT 160/4.5mcg -] 1 inh PO BID 04/21/17 Duloxetine HCl [Cymbalta -] 60 mg PO DAILY 04/21/17 Ferrous Sulfate 325 mg PO DAILY 04/21/17 Furosemide [Lasix] 20 mg PO DAILY 04/21/17 Lisinopril [Zestril] 10 mg PO DAILY 04/21/17 Pregabalin [Lyrica] 100 mg PO BID 04/21/17 Rivaroxaban [Xarelto -] 20 mg PO DAILY 04/21/17 Lipase/Protease/Amylase [Marlyn Spaulding 36,000 Units Capsule] 1 cap PO TIDCM #90 capsule. 04/25/17 Metoclopramide HCl [Reglan -] 5 mg PO TIDAC #90 tablet 04/25/17 Metoprolol Succinate [Toprol XL -] 75 mg PO DAILY 05/20/17 Review of Systems - Review of Systems Constitutional: reports: Malaise. denies: Chills, Fever, Night Sweats, Unintentional Wgt. Loss, Weakness Eyes: reports: No Symptoms HENT: reports: No Symptoms Neck: reports: No Symptoms Cardiovascular: reports: Shortness of Breath. denies: Chest Pain, Edema, Palpitations Respiratory: reports: Cough, SOB, SOB on Exertion, Wheezing. denies: Hemoptysis Gastrointestinal: reports: No Symptoms Genitourinary: reports: No Symptoms Breasts: reports: No Symptoms Reported Musculoskeletal: reports: No Symptoms Integumentary: reports: No Symptoms Neurological: reports: No Symptoms Endocrine: reports: No Symptoms Hematology/Lymphatic: reports: No Symptoms Psychiatric: reports: No Symptoms Physical Exam Vital Sings: Vital Signs Temperature 98.7 F 05/21/17 08:00 Pulse Rate 76 05/21/17 08:00 Respiratory Rate 18 05/21/17 08:00 Blood Pressure 144/94 05/21/17 08:00 O2 Sat by Pulse Oximetry (%) 94 L 05/21/17 00:35 Constitutional: Yes: No Distress, Calm Eyes: Yes: Conjunctiva Clear, EOM Intact HENT: Yes: Atraumatic, Normocephalic Neck: Yes: Supple, Trachea Midline Cardiovascular: Yes: Pulse Irregular Respiratory: Yes: Cough, Diminished, On Nasal O2, SOB, Wheezes. No: Accessory Muscle Use, Rales, Rhonchi, Stridor, Tachypnea ...Inspection: Yes: WNL ...Clubbing: No Gastrointestinal: Yes: Normal Bowel Sounds, Soft Renal/: Yes: WNL Musculoskeletal: Yes: WNL Extremities: Yes: WNL Edema: No Peripheral Pulses WNL: Yes Neurological: Yes: Alert, Oriented Psychiatric: Yes: Alert, Oriented Labs: CBC, BMP 05/21/17 06:30 05/21/17 06:30 Imaging - Results Chest X-ray: Report Reviewed, Image Reviewed Cat Scan: Report Reviewed, Image Reviewed Problem List - Problems (1) CAD (coronary artery disease) Code(s): I25.10 - ATHSCL HEART DISEASE OF [place] CORONARY ARTERY W/O ANG PCTRS Qualifiers: Coronary Disease-Associated Artery/Lesion type: [place] artery Associated angina: with stable angina (2) CKD (chronic kidney disease) Code(s): N18.9 - CHRONIC KIDNEY DISEASE, UNSPECIFIED Qualifiers: Chronic kidney disease stage: stage 3 (moderate) Qualified Code(s): N18.3 - Chronic kidney disease, stage 3 (moderate) (3) COPD exacerbation Code(s): J44.1 - CHRONIC OBSTRUCTIVE PULMONARY DISEASE W (ACUTE) EXACERBATION (4) History of aortic aneurysm repair Code(s): Z98.890 - OTHER SPECIFIED POSTPROCEDURAL STATES; Z86.79 - PERSONAL HISTORY OF OTHER DISEASES OF THE CIRCULATORY SYSTEM (5) History of arterial bypass of lower extremity Code(s): Z95.828 - PRESENCE OF OTHER VASCULAR IMPLANTS AND GRAFTS (6) History of colonic polyps Code(s): Z86.010 - PERSONAL HISTORY OF COLONIC POLYPS (7) Old cerebrovascular accident (CVA) without late effect Code(s): Z86.73 - PRSNL HX OF TIA (TIA), AND CEREB INFRC W/O RESID DEFICITS (8) Osteoarthritis Code(s): M19.90 - UNSPECIFIED OSTEOARTHRITIS, UNSPECIFIED SITE (9) PAD (peripheral artery disease) Code(s): I73.9 - PERIPHERAL VASCULAR DISEASE, UNSPECIFIED (10) Afib Code(s): I48.91 - UNSPECIFIED ATRIAL FIBRILLATION (11) BPH (benign prostatic hypertrophy) Code(s): N40.0 - BENIGN PROSTATIC HYPERPLASIA WITHOUT LOWER URINRY TRACT SYMP (12) CAD (coronary artery disease) Code(s): I25.10 - ATHSCL HEART DISEASE OF [place] CORONARY ARTERY W/O ANG PCTRS (13) History of permanent cardiac pacemaker placement Code(s): Z95.0 - PRESENCE OF CARDIAC PACEMAKER (14) Hx of CABG Code(s): Z95.1 - PRESENCE OF AORTOCORONARY BYPASS GRAFT (15) Hyperlipidemia Code(s): E78.5 - HYPERLIPIDEMIA, UNSPECIFIED Qualifiers: (16) Hypertension Code(s): I10 - ESSENTIAL (PRIMARY) HYPERTENSION Qualifiers: Hypertension type: essential hypertension Qualified Code(s): I10 - Essential (primary) hypertension (17) Paroxysmal atrial fibrillation Code(s): I48.0 - PAROXYSMAL ATRIAL FIBRILLATION (18) Peripheral artery disease Code(s): I73.9 - PERIPHERAL VASCULAR DISEASE, UNSPECIFIED (19) Presence of cardiac pacemaker Code(s): Z95.0 - PRESENCE OF CARDIAC PACEMAKER (20) Stented coronary artery Code(s): Z95.5 - PRESENCE OF CORONARY ANGIOPLASTY IMPLANT AND GRAFT (21) Viral syndrome Code(s): B34.9 - VIRAL INFECTION, UNSPECIFIED Assessment/Plan Medrol BID O2 as needed to maintain saturation 88% to 92% BD TX Symbicort BID On D/C home should be on LAMA/LABA/ICS Would monitor off ABX for now: I suspect slowly resolving viral illness Xarelto No smoking counseled Appropriate vaccination Will follow Thank you. Dr Alberto
--- NOTE | 2017-05-21 11:15 | PN ---
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, Physician Chief Complaint: seen and examined breathing much better on steroids and bronchodilators - Current Medication List Current Medications: Active Medications Albuterol Sulfate (Ventolin 0.083% Nebulizer Soln -) 1 amp NEB Q4H PRN PRN Reason: SHORT OF BREATH/WHEEZING Albuterol/Ipratropium (Duoneb -) 1 amp NEB RQID [facility] Last Admin: 05/21/17 08:05 Dose: 1 amp Aspirin (Ecotrin -) 81 mg PO DAILY [facility] Last Admin: 05/21/17 10:04 Dose: 81 mg Atorvastatin Calcium (Lipitor -) 10 mg PO [facility] Budesonide/Formoterol Fumarate (Symbicort 160/4.5mcg -) 1 puff IH BID [facility] Last Admin: 05/21/17 10:05 Dose: 1 puff Duloxetine HCl (Cymbalta -) 60 mg PO DAILY [facility] Last Admin: 05/21/17 10:04 Dose: 60 mg Furosemide (Lasix -) 20 mg PO DAILY [facility] Last Admin: 05/21/17 10:04 Dose: 20 mg Methylprednisolone Sodium Succinate (Solu-Medrol -) 60 mg IVPB Q12H [facility] Last Admin: 05/21/17 10:04 Dose: 60 mg Metoprolol Succinate (Toprol Xl -) 75 mg PO DAILY [facility] Last Admin: 05/21/17 10:03 Dose: 75 mg Pancrelipase (Creon Dr 36,000 Units Capsule) 1 cap PO TIDCM [facility] Last Admin: 05/21/17 07:59 Dose: 1 cap Pregabalin (Lyrica -) 100 mg PO BID [facility] Last Admin: 05/21/17 10:03 Dose: 100 mg Rivaroxaban (Xarelto -) 20 mg PO DAILY [facility] Last Admin: 05/21/17 10:04 Dose: 20 mg - Objective Vital Signs: Vital Signs Temperature 98.7 F 05/21/17 08:00 Pulse Rate 76 05/21/17 08:00 Respiratory Rate 18 05/21/17 08:00 Blood Pressure 144/94 05/21/17 08:00 O2 Sat by Pulse Oximetry (%) 94 L 05/21/17 00:35 Constitutional: Yes: Calm Cardiovascular: Yes: Regular Rate and Rhythm, S1, S2 Respiratory: Yes: CTA Bilaterally Gastrointestinal: Yes: Normal Bowel Sounds, Soft Neurological: Yes: Alert, Oriented Labs: CBC, BMP 05/21/17 06:30 05/21/17 06:30 INR, PTT INR 2.01 (0.82-1.09) H D 05/20/17 20:10 Problem List - Problems (1) SOB (shortness of breath) Assessment/Plan: short course of steroids bronchodiltors oxygen Code(s): R06.02 - SHORTNESS OF BREATH (2) COPD (chronic obstructive pulmonary disease) Assessment/Plan: symbicort Code(s): J44.9 - CHRONIC OBSTRUCTIVE PULMONARY DISEASE, UNSPECIFIED (3) CAD (coronary artery disease) Assessment/Plan: asa/lipitor and BB Code(s): I25.10 - ATHSCL HEART DISEASE OF [place] CORONARY ARTERY W/O ANG PCTRS Qualifiers: Coronary Disease-Associated Artery/Lesion type: [place] artery Associated angina: with stable angina (4) CKD (chronic kidney disease) Assessment/Plan: stable Code(s): N18.9 - CHRONIC KIDNEY DISEASE, UNSPECIFIED Qualifiers: Chronic kidney disease stage: stage 3 (moderate) Qualified Code(s): N18.3 - Chronic kidney disease, stage 3 (moderate) (5) Afib Assessment/Plan: xarelto and toprol Code(s): I48.91 - UNSPECIFIED ATRIAL FIBRILLATION
[2017-05-21 11:25] LABS: URINE APPEARANCE CLEAR; URINE BILIRUBIN NEGATIVE (NEGATIVE); URINE BLOOD 1+ (NEGATIVE); URINE COLOR YELLOW; URINE GLUCOSE (UA) NEGATIVE (NEGATIVE); URINE KETONE NEGATIVE (NEGATIVE); URINE LEUK ESTERASE NEGATIVE (NEGATIVE); URINE NITRITE NEGATIVE (NEGATIVE); URINE UROBILINOGEN NEGATIVE mg/dL (0.2-1.0)
[2017-05-21 11:26] LABS: URINE PROTEIN 1+ (NEGATIVE)
--- NOTE | 2017-05-21 11:29 | EKG ---
Test Reason : Blood Pressure : / mmHG Vent. Rate : 076 BPM Atrial Rate : 076 BPM P-R Int : 136 ms QRS Dur : 116 ms QT Int : 406 ms P-R-T Axes : 043 265 083 degrees QTc Int : 456 ms Atrial-sensed ventricular-paced rhythm Biventricular pacemaker detected ABNORMAL ECG WHEN COMPARED WITH ECG OF 24-APR-2017 09:48, VENT. RATE HAS INCREASED BY 4 BPM Confirmed by MD Anthony, Lorenzo ([id number]) on 05/21/2017 11:29:00 AM Referred By: Confirmed By:Lorenzo Cruz MD
[2017-05-21 11:48] LABS: URINE MUCUS RARE
[2017-05-21] MEDS ORDERED: ATORVASTATIN CA 10 MG TABLET (FP) PO SCH (22:00)
[2017-05-22] MEDS: ALBUTEROL SO4 2.5/IPRATROPIUM 0.5 INH SOL 3 ML VIAL.NEB. NEB SCH (07:35)
[2017-05-22] MEDS ORDERED: PT OWN MED DRAWER 7, Y5N ONE ×2 (07:52→08:43)
[2017-05-22] MEDS: LIPASE/PROTEASE/AMYLASE 36,000 UNIT CAPSULE PO SCH (07:57)
[2017-05-22] MEDS: methylPREDNISolone NA SUCC 125 MG/2 ML VIAL IVPB SCH ×2 (08:51→09:48)
[2017-05-22] MEDS: BUDESONIDE/FORMETEROL FUMARATE 160/4.5 mcg INHALER IH SCH ×2 (08:51→09:48)
[2017-05-22] MEDS: PREGABALIN 50 MG CAPSULE PO SCH ×2 (08:52→09:48)
[2017-05-22] MEDS: DULoxetine HCL 30 MG CAPSULE.DR (FP) PO SCH ×2 (08:52→09:47)
[2017-05-22] MEDS: ASPIRIN COATED 81 MG TABLET.EC PO SCH ×2 (08:52→09:47)
[2017-05-22] MEDS: metoPROLOL SUCCINATE 25 MG TAB.SR.24H (FP) PO SCH ×2 (08:52→09:48)
[2017-05-22] MEDS: FUROSEMIDE 20 MG TABLET (FP) PO SCH ×2 (08:52→09:47)
[2017-05-22] MEDS: RIVAROXABAN 20 MG TABLET PO SCH ×2 (08:52→09:48)
[2017-05-22 09:52] VITALS: BP 144/85; PULSE 92; TEMP 98.6
--- NOTE | 2017-05-22 10:24 | PN ---
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, Physician Chief Complaint: COPD exacerbation History of Present Illness: NAD, in bed, self ambulatory uses Nasal O2 at home No SOB - Current Medication List Current Medications: Active Medications Albuterol Sulfate (Ventolin 0.083% Nebulizer Soln -) 1 amp NEB Q4H PRN PRN Reason: SHORT OF BREATH/WHEEZING Albuterol/Ipratropium (Duoneb -) 1 amp NEB RQID [facility] Last Admin: 05/22/17 07:35 Dose: 1 amp Aspirin (Ecotrin -) 81 mg PO DAILY [facility] Last Admin: 05/22/17 09:47 Dose: Not Given Atorvastatin Calcium (Lipitor -) 10 mg PO HS [facility] Last Admin: 05/21/17 21:16 Dose: 10 mg Budesonide/Formoterol Fumarate (Symbicort 160/4.5mcg -) 1 puff IH BID [facility] Last Admin: 05/22/17 09:48 Dose: Not Given Duloxetine HCl (Cymbalta -) 60 mg PO DAILY [facility] Last Admin: 05/22/17 09:47 Dose: Not Given Furosemide (Lasix -) 20 mg PO DAILY [facility] Last Admin: 05/22/17 09:47 Dose: Not Given Methylprednisolone Sodium Succinate (Solu-Medrol -) 60 mg IVPB Q12H [facility] Last Admin: 05/22/17 09:48 Dose: Not Given Metoprolol Succinate (Toprol Xl -) 75 mg PO DAILY [facility] Last Admin: 05/22/17 09:48 Dose: Not Given Pancrelipase (Creon Dr 36,000 Units Capsule) 1 cap PO TIDCM [facility] Last Admin: 05/22/17 07:57 Dose: 1 cap Pregabalin (Lyrica -) 100 mg PO BID [facility] Last Admin: 05/22/17 09:48 Dose: Not Given Rivaroxaban (Xarelto -) 20 mg PO DAILY [facility] Last Admin: 05/22/17 09:48 Dose: Not Given - Objective Vital Signs: Vital Signs Temperature 98.6 F 05/22/17 09:00 Pulse Rate 92 H 05/22/17 09:00 Respiratory Rate 22 05/22/17 09:00 Blood Pressure 144/85 05/22/17 09:00 O2 Sat by Pulse Oximetry (%) 94 L 05/21/17 22:00 Constitutional: Yes: Well Nourished, No Distress, Calm Cardiovascular: Yes: Regular Rate and Rhythm Respiratory: Yes: Regular Gastrointestinal: Yes: Normal Bowel Sounds Musculoskeletal: Yes: WNL Extremities: Yes: WNL Edema: No Peripheral Pulses WNL: Yes Neurological: Yes: Alert, Oriented Psychiatric: Yes: Alert, Oriented Labs: CBC, BMP 05/21/17 06:30 05/21/17 06:30 INR, PTT INR 2.01 (0.82-1.09) H D 05/20/17 20:10 Problem List - Problems (1) COPD (chronic obstructive pulmonary disease) Assessment/Plan: -Nasal O2 -Laba on D/C -On Symbicort at home already -Prednisone 60 mg BID with tapering dose outpatient Code(s): J44.9 - CHRONIC OBSTRUCTIVE PULMONARY DISEASE, UNSPECIFIED (2) SOB (shortness of breath) Assessment/Plan: -resolved Code(s): R06.02 - SHORTNESS OF BREATH (3) Paroxysmal atrial fibrillation Assessment/Plan: -on Xarelto Code(s): I48.0 - PAROXYSMAL ATRIAL FIBRILLATION Assessment/Plan see problem list
== END 2017-05-22 11:30 | disposition home or self-care (01) | DRG 191 ==
LOC: JER 18:40 → JERBED 22:00 → J6S 23:59
PROVIDERS: ADMIT Internal Medicine; ATTEND Family Medicine
DX: J44.1 Chronic obstructive pulmonary disease with (acute) exacerbation (principal); N17.9 Acute kidney failure, unspecified; G40.89 Other seizures; I13.0 Hypertensive heart and chronic kidney disease with heart failure and stage 1 through stage 4 chronic kidney disease, or unspecified chronic kidney disease; J96.10 Chronic respiratory failure, unspecified whether with hypoxia or hypercapnia; N18.3 Chronic kidney disease, stage 3 (moderate); I50.9 Heart failure, unspecified; I25.10 Atherosclerotic heart disease of native coronary artery without angina pectoris; I71.4 Abdominal aortic aneurysm, without rupture; F03.90 Unspecified dementia, unspecified severity, without behavioral disturbance, psychotic disturbance, mood disturbance, and anxiety; E78.5 Hyperlipidemia, unspecified; N40.0 Benign prostatic hyperplasia without lower urinary tract symptoms; I73.9 Peripheral vascular disease, unspecified; I48.0 Paroxysmal atrial fibrillation; Z99.81 Dependence on supplemental oxygen; Z86.73 Personal history of transient ischemic attack (TIA), and cerebral infarction without residual deficits; Z95.1 Presence of aortocoronary bypass graft; Z95.0 Presence of cardiac pacemaker; Z86.718 Personal history of other venous thrombosis and embolism; Z86.010 Personal history of colon polyps; Z87.891 Personal history of nicotine dependence
CPT/HCPCS: 36415; 71045-TC-FY; 80053; 81003; 81015; 82550; 82803; 83605; 83735; 84100; 84484; 85025; 85610; 85730; 87040; 87086; 93005; 93010; 94640; 97116-GP; 97161-GP; 99284-25

== ENCOUNTER 2017-07-22 20:30 | Emergency (ER) | payer OTHER ==
--- NOTE | 2017-07-22 21:17 | PDOC ---
History of Present Illness - General Chief Complaint: Chest Pain Stated Complaint: CHEST PAIN Time Seen by Provider: 07/22/17 20:54 - History of Present Illness Initial Comments: 07/22/17 21:16 Walter Villar is a 77 year old male with a PMH of AAA s/p repair, AFib, CVA (s/p R sided weakness), DVT (on Xarelto) CAD s/p CABG, CHF (s/p pacemaker placement) and COPD (on 3L home O2) who presents with resolved chest pain. Patient and patient's @ bedside note patient was eating dinner around 4:45 p.m. when he started to feel substernal, pounding chest pain, 01/01 with no radiation. Patient's gave him Tums as well nitroglycerin x2 and patient's pain resolved after the second nitro. Patient denies any associated lightheadedness , palpitations, diaphoresis. The patient denies shortness of breath, headache, and dizziness. Denies fevers, chills, nausea, vomiting, diarrhea, and constipation. Denies dysuria, frequency, urgency, and hematuria. Allergies: NKDA Surgical: CABG (2013), AAA repair (2011) Social: 20+ year h/o smoking, denies alcohol, denies recreational drugs PMD: Dr. Solomon ([phone]) As per EMR, patient last evaluated at our facility in 04/2017 for COPD exacerbation. Past History - Past Medical History Allergies/Adverse Reactions: Allergies Allergy/AdvReac Type Severity Reaction Status Date / Time No Known Allergies Allergy Verified 05/20/17 18:44 Home Medications: Ambulatory Orders Albuterol 0.083% Nebulizer Suki [Ventolin 0.083% Nebulizer Soln -] 1 amp NEB TID 04/21/17 Aspirin [Adult Aspirin Regimen] 81 mg PO DAILY 04/21/17 Atorvastatin Ca [Lipitor] 10 mg PO HS 04/21/17 Budesonide/Formeterol Fumarate [SYMBICORT 160/4.5mcg -] 1 inh PO BID 04/21/17 Duloxetine HCl [Cymbalta -] 60 mg PO DAILY 04/21/17 Ferrous Sulfate 325 mg PO DAILY 04/21/17 Furosemide [Lasix] 20 mg PO DAILY 04/21/17 Lisinopril [Zestril] 10 mg PO DAILY 04/21/17 Pregabalin [Lyrica] 100 mg PO BID 04/21/17 Rivaroxaban [Xarelto -] 20 mg PO DAILY 04/21/17 Lipase/Protease/Amylase [Marlyn Spaulding 36,000 Units Capsule] 1 cap PO TIDCM #90 capsule. 04/25/17 Metoclopramide HCl [Reglan -] 5 mg PO TIDAC #90 tablet 04/25/17 Metoprolol Succinate [Toprol XL -] 75 mg PO DAILY 05/20/17 Albuterol 2.5/Ipratropium 0.5 [Duoneb -] 1 amp NEB RQID PRN #120 amp 05/22/17 Prednisone 10 mg PO ASDIR #87 tablet 05/22/17 Anemia: No Asthma: No Cancer: No Cardiac Disorders: Yes (STENTS 2000/STENT IN 2015) CVA: Yes (01/23/12/DURING TRIPLE AA REPAIR) COPD: Yes CHF: No Dementia: No (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) Diabetes: No GI Disorders: No Disorders: Yes (BPH) HTN: Yes Hypercholesterolemia: Yes Liver Disease: No Seizures: No Thyroid Disease: No - Surgical History Abdominal Surgery: Yes (S/P AAA) Appendectomy: No Cardiac Surgery: Yes (BYPASS 2013, PPM/ AAA REPAIR/2011) Cholecystectomy: No Lung Surgery: No Neurologic Surgery: No Orthopedic Surgery: No - Immunization History Immunization Up to Date: Yes - Suicide/Smoking/Psychosocial Hx Smoking History: Former smoker Have you smoked in the past 12 months: No If you are a former smoker, when did you quit?: 2008 Cigars Per Day: 0 Information on smoking cessation initiated: No Hx Alcohol Use: No Drug/Substance Use Hx: No Substance Use Type: None Hx Substance Use Treatment: No Review of Systems - Review of Systems Constitutional: No: Chills, Fever HEENTM: No: Recent change in vision Cardiac (ROS): Yes: Chest Pain. No: Lightheadedness, Palpitations, Syncope ABD/GI: No: Constipated, Diarrhea, Nausea, Vomiting : No: Burning, Dysuria Psychiatric: No: Anxiety, Depression *Physical Exam - Vital Signs Last Vital Signs Temp Pulse Resp BP Pulse Ox 97.2 F L 68 20 124/89 92 L 07/22/17 20:49 07/22/17 20:49 07/22/17 20:49 07/22/17 20:49 07/22/17 20:49 - Physical Exam General Appearance: Yes: Nourished, Appropriately Dressed HEENT: positive: EOMI, ANT Neck: positive: Trachea midline, Supple. negative: Lymphadenopathy (R), Lymphadenopathy (L) Respiratory/Chest: positive: Lungs Clear. negative: Accessory Muscle Use, Labored Respiration, Crackles, Rales, Rhonchi, Stridor, Wheezing Cardiovascular: positive: S1, S2 Vascular Pulses: Dorsalis-Pedis (R): 2+, Doralis-Pedis (L): 2+ Gastrointestinal/Abdominal: positive: Normal Bowel Sounds, Soft Musculoskeletal: negative: CVA Tenderness (R), CVA Tenderness (L) Extremity: positive: Normal Capillary Refill, Normal Inspection Integumentary: positive: Normal Color, Dry, Warm Neurologic: positive: Fully Oriented, Alert ED Treatment Course - LABORATORY CBC & Chemistry Diagram: 07/22/17 21:42 07/22/17 21:42 Medical Decision Making - Medical Decision Making 07/22/17 21:20 77 year old male with resolved chest pain. H/o CABG, AAA repair. Frontal diagnosis: r/o ACS, Angina, PNA. Will obtain basic labs, ECG, CXR. As patient has significant cardiac history, will likely require Troponin x2 for full evaluation of ACS. Reassess. 07/22/17 21:23 As per EMR LV grossly normal with normal LVEF, aortic root dilitation. ECG shows HR 78, paced rhythm, no LANCE/STD/TWI c/w previous ECG, non-ischemic ECG. 07/22/17 23:48 Patient resting comfortably. Labs pending. Patient to be signed out to Dr. Gutierrez (Resident) for further care. *DC/Admit/Observation/Transfer Diagnosis at time of Disposition: Chest pain - Discharge Dispostion Disposition: HOME Condition at time of disposition: Stable - Referrals Referrals: Alyssa Solomon [Primary Care Provider] - 1 Week - Patient Instructions Printed Discharge Instructions: DI for Atypical Chest Pain Additional Instructions: You were seen here for chest pain. We tested you and found no evidence of a heart attack. Please follow up with your primary care doctor in one week. If you feel your symptoms are worsening with shortness of breath or worsening chest pain please return to the emergency room - Post Discharge Activity
[2017-07-22 21:21] VITALS: BMI 25.0
[2017-07-22 21:45] LABS: EOS % 4.7 % (0-4.5); HEMATOCRIT 40.7 % (35.4-49); HEMOGLOBIN 13.7 GM/dL (11.7-16.9); LYMPH % 12.7 % (8-40); MCH 29.4 pg (25.7-33.7); MCHC 33.7 g/dl (32.0-35.9); MEAN CELL VOLUME 87.4 fl (80-96); MEAN PLT VOLUME 9.1 fl (7.5-11.1); NEUT % 72.6 % (42.8-82.8); PLATELET COUNT 205 K/MM3 (134-434); RBC 4.66 M/mm3 (4.00-5.60); RDW 18.4 % (11.9-15.9); WHITE BLOOD COUNT 8.6 K/mm3 (4.0-10.0)
--- NOTE | 2017-07-22 21:53 | PDOC ---
Attending Attestation - HPI HPI: 07/22/17 22:11 The patient is a 77 year old male with a significant past medical history of COPD, STENTS (2000, 2015) ,BPH, (CVA 01/03), HTN, and HLD who was brought in by EMS who presents to the emergency department complaining of chest pain which began around 430pm. The patient reports eating dinner when the patient felt a pounding sensation in his chest. The patient describes the pain as 10/10 in severity. The patients gave Tums which resolved the chest pain. The patient admits to taking 2 tylenol and 2 nitroglycerin at home prior to arrival. The patient denies shortness of breath, headache, and dizziness. Denies fevers, chills, nausea, vomiting, diarrhea, and constipation. Denies dysuria, frequency, urgency, and hematuria. Allergies: NKA Past surgical history: BYPASS 2013, PPM/ AAA REPAIR/2011. Social history: Former smoker (2007). No reported alcohol or drug use. PCP: Dr. Solomon ([phone]) <Estela Mccartney - Last Filed: 07/22/17 22:11> - Resident Resident Name: Suzy Florez - ED Attending Attestation I have performed the following: I have examined & evaluated the patient, The case was reviewed & discussed with the resident, I agree w/resident's findings & plan, Exceptions are as noted - Physicial Exam PE: 07/23/17 00:41 77 yo male in no distress,currently no chest pain head ncat neck supple lungs no wheezing,no rales abd soft,nontender cvs [id number] ext no edema neuro alert,moving all extremities - Medical Decision Making 07/23/17 00:46 first trop is negaitve plan repeat 6 hr trop <Lola Stahl - Last Filed: 07/23/17 16:41> Attestations - Attestations Documentation prepared by Estela Mccartney, acting as medical director of hospice for Lola Stahl MD. <Estela Mccartney - Last Filed: 07/22/17 22:11>
[2017-07-22 22:12] LABS: ALBUMIN 3.2 g/dl (3.4-5.0); ANION GAP 5 (8-16); BLOOD UREA NITROGEN 21 mg/dL (7-18); CALCIUM 8.2 mg/dL (8.5-10.1); CHLORIDE 108 mmol/L (98-107); CO2 29 mmol/L (21-32); CREATININE 1.2 mg/dL (0.7-1.3); GLUCOSE,RANDOM 92 mg/dL (74-106); POTASSIUM 4.2 mmol/L (3.5-5.1); SGOT/AST 15 U/L (15-37); SGPT/ALT 13 U/L (12-78); SODIUM 142 mmol/L (136-145)
[2017-07-22 22:16] LABS: ALK PHOS 45 U/L (45-117); BILIRUBIN,TOTAL 0.3 mg/dL (0.2-1.0); N-TERMINAL BNP 2398.17 pg/ml (5-450); TOT PROT 6.3 g/dl (6.4-8.2)
--- NOTE | 2017-07-23 00:47 | PDOC ---
*Physical Exam - Vital Signs Last Vital Signs Temp Pulse Resp BP Pulse Ox 97.2 F L 68 20 124/89 92 L 07/22/17 20:49 07/22/17 20:49 07/22/17 20:49 07/22/17 20:49 07/22/17 20:49 07/23/17 00:44 Pt signed out to me by Dr Florez for chest pain. He has significant cardiac history, so despite resolution of symptoms prior to arrival he will be worked up to R/O ACS. Initial trop was <0.02. Patient is pending 2nd trop for 3am Will be ED obs past the 4hr ethan Will give heads up to hospitalist group 07/23/17 05:19 - Physical Exam Comments: 07/23/17 00:46 Currently resting comfortably ED Treatment Course - LABORATORY CBC & Chemistry Diagram: 07/22/17 21:42 07/22/17 21:42 - ADDITIONAL ORDERS Additional order review: Laboratory Results 07/22/17 21:42 Sodium 142 Potassium 4.2 Chloride 108 H Carbon Dioxide 29 Anion Gap 5 L BUN 21 H Creatinine 1.2 Creat Clearance w eGFR 58.40 Random Glucose 92 Calcium 8.2 L Total Bilirubin 0.3 D AST 15 D ALT 13 Alkaline Phosphatase 45 Creatine Kinase 55 Troponin I < 0.02 B-Natriuretic Peptide 2398.17 H Total Protein 6.3 L Albumin 3.2 L 07/22/17 21:42 RBC 4.66 MCV 87.4 MCHC 33.7 RDW 18.4 H D MPV 9.1 Neutrophils % 72.6 Lymphocytes % 12.7 Monocytes % 9.0 Eosinophils % 4.7 H Basophils % 1.0 Medical Decision Making - Medical Decision Making 07/23/17 00:48 Pending 2nd trop microblog was sent to hospitalist team for ED obs for patient 07/23/17 03:57 Both first and second trops are <0.02 Plan is to discharge 07/23/17 05:20 Patient is past the 8hr limit for ED obs so microblog was sent to hospitalist team for in patient obs, prior to discharge. *DC/Admit/Observation/Transfer Diagnosis at time of Disposition: Chest pain - Discharge Dispostion Disposition: HOME Condition at time of disposition: Stable Admit: Yes - Referrals Referrals: Alyssa Solomon [Primary Care Provider] - 1 Week - Patient Instructions Printed Discharge Instructions: DI for Atypical Chest Pain Additional Instructions: You were seen here for chest pain. We tested you and found no evidence of a heart attack. Please follow up with your primary care doctor in one week. If you feel your symptoms are worsening with shortness of breath or worsening chest pain please return to the emergency room - Post Discharge Activity - Attestations Physician Attestion: 07/23/17 00:49 Araceli Gutierrez MD
[2017-07-23 03:17] VITALS: TEMP 98.1
[2017-07-23 06:27] VITALS: BP 133/81; PULSE 59
--- NOTE | 2017-07-24 10:32 | EKG ---
Test Reason : Blood Pressure : / mmHG Vent. Rate : 070 BPM Atrial Rate : 070 BPM P-R Int : 132 ms QRS Dur : 116 ms QT Int : 426 ms P-R-T Axes : 049 264 095 degrees QTc Int : 460 ms POOR DATA QUALITY, INTERPRETATION MAY BE ADVERSELY AFFECTED Atrial-sensed ventricular-paced rhythm Biventricular pacemaker detected ABNORMAL ECG WHEN COMPARED WITH ECG OF 20-MAY-2017 19:57, VENT. RATE HAS DECREASED BY 6 BPM Confirmed by MANISH ARREDONDO, KAMALA ([id number]) on 07/24/2017 10:32:00 AM Referred By: Confirmed By:KAMALA HAMMOND MD
== END 2017-07-23 06:27 | disposition home or self-care (01) ==
LOC: JER 20:30 → UNDOADMOB 07-23 00:50 → JERBED 07-23 00:50 → JER 07-23 06:27
DX: R07.9 Chest pain, unspecified (principal); J44.9 Chronic obstructive pulmonary disease, unspecified; Z95.5 Presence of coronary angioplasty implant and graft; N40.0 Benign prostatic hyperplasia without lower urinary tract symptoms; I10 Essential (primary) hypertension; E78.5 Hyperlipidemia, unspecified; Z86.73 Personal history of transient ischemic attack (TIA), and cerebral infarction without residual deficits
CPT/HCPCS: 36415; 71045-TC-FY; 80053; 82550; 83880; 84484; 85025; 93005; 93010; 99283-25

== ENCOUNTER 2017-11-08 08:06 | Inpatient (IN) | payer OTHER ==
[2017-11-08] MEDS ORDERED: ALBUTEROL SO4 2.5/IPRATROPIUM 0.5 INH SOL 3 ML VIAL.NEB. NEB ONE ×2 (08:11→08:19)
[2017-11-08] MEDS ORDERED: methylPREDNISolone NA SUCC 125 MG/2 ML VIAL IVPUSH ONE (08:14)
[2017-11-08 08:20] VITALS: BMI 25.3
[2017-11-08] MEDS ORDERED: ALBUTEROL SO4 0.083% IH SOL 2.5 MG/3 ML VIAL.NEB. NEB ONE (08:20)
--- NOTE | 2017-11-08 08:23 | PDOC ---
History of Present Illness - General Chief Complaint: Shortness of Breath Stated Complaint: COPD Time Seen by Provider: 11/08/17 08:10 History Source: Spouse - History of Present Illness Initial Comments: 11/08/17 08:23 History obtained from patient's @ bedside and EMR - patient on BIPAP. Patient is a 77 year old male with a PMH of CAD (s/p CABG, stents), AFib, CVA (s /p R sided weakness), DVT (on Xarelto), CHF (s/p pacemaker placement), thoracic aortic aneursym, and COPD (on 3L home O2) BIBEMS with shortness of breath. Patient's notes a 1 week h/o viral URI like symptoms including cough and rhinorrhea as well as bluish discoloration of his lips. Patient continued to c/ o difficulty breathing despite increasing his O2 to 4L prompting to call 911. Patient's notes patient recently had a CT chest but she is unsure of the results. NKDA Surgical: CABG (2013) Social: 20+ year h/o smoking, denies alcohol, denies recreational drugs PMD: Dr. Escamilla; Dress Operator: Dr. Fleming Strip Winder: Dr. Mak As per EMR, patient was recently evaluated in our ED on 07/22/17 for chest pain - discharged home after 2 negative Troponins. Admission for COPD exacerbation in 2018. Thoracic Aneursym stable @ ascending aorta 5.1 cm (10/18/17) Past History - Past Medical History Allergies/Adverse Reactions: Allergies Allergy/AdvReac Type Severity Reaction Status Date / Time No Known Allergies Allergy Verified 05/20/17 18:44 Home Medications: Ambulatory Orders Albuterol 0.083% Nebulizer Suki [Ventolin 0.083%] 1 neb NEB QID 11/08/17 Aspirin [Ecotrin] 81 mg PO DAILY 11/08/17 Budesonide/Formeterol Fumarate [SYMBICORT 160/4.5mcg -] 1 inh PO BID 11/08/17 Duloxetine HCl [Cymbalta -] 60 mg PO DAILY 11/08/17 Ferrous Sulfate 325 mg PO DAILY 11/08/17 Fluocinonide 0.05% Cream [Lidex 0.05% Cream -] 1 applic TP DAILY 11/08/17 Furosemide 20 mg PO DAILY 11/08/17 Isosorbide Dinitrate [Isordil -] 20 mg PO BID 11/08/17 Lisinopril [Prinivil] 10 mg PO DAILY 11/08/17 Lovastatin 10 mg PO HS 11/08/17 Metoprolol Succinate 100 mg PO DAILY 11/08/17 Pantoprazole Sodium [Protonix] 40 mg PO DAILY 11/08/17 Pregabalin [Lyrica] 100 mg PO TID 11/08/17 Rivaroxaban [Xarelto -] 20 mg PO DAILY 11/08/17 Tamsulosin HCl [Flomax] 0.4 mg PO HS 11/08/17 Anemia: No Asthma: No Cancer: No Cardiac Disorders: Yes (STENTS 2000/STENT IN 2015) CVA: Yes (01/23/12/DURING TRIPLE AA REPAIR) COPD: Yes CHF: No Dementia: No (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) Diabetes: No GI Disorders: No Disorders: Yes (BPH) HTN: Yes Hypercholesterolemia: Yes Liver Disease: No Seizures: No Thyroid Disease: No - Surgical History Abdominal Surgery: Yes (S/P AAA) Appendectomy: No Cardiac Surgery: Yes (BYPASS 2013, PPM/ AAA REPAIR/2011) Cholecystectomy: No Lung Surgery: No Neurologic Surgery: No Orthopedic Surgery: No - Immunization History Immunization Up to Date: Yes - Suicide/Smoking/Psychosocial Hx Smoking History: Former smoker Have you smoked in the past 12 months: No If you are a former smoker, when did you quit?: 2008 Cigars Per Day: 0 Information on smoking cessation initiated: No Hx Alcohol Use: No Drug/Substance Use Hx: No Substance Use Type: None Hx Substance Use Treatment: No Review of Systems - Review of Systems Constitutional: No: Chills, Fever Respiratory: Yes: SOB with Exertion, SOB at Rest. No: Cough, Hemoptysis Cardiac (ROS): No: Chest Pain, Lightheadedness, Palpitations, Syncope ABD/GI: No: Constipated, Diarrhea, Nausea, Vomiting : No: Burning, Dysuria *Physical Exam - Vital Signs Last Vital Signs Temp Pulse Resp BP Pulse Ox 87 30 H 125/88 88 L 11/08/17 08:12 11/08/17 08:12 11/08/17 08:12 11/08/17 08:12 - Physical Exam Comments: 11/08/17 20:21 General: on BIPAP, alert, verbal HEENT: Atraumatic, neck supple, trachea midline CV: S1/S2, no M/R/G Respiratory: Bibasilar wheezing, scattered rhonci Abdomen: Soft, (+) bowel sounds, no TTP Extremity: No cyanosis, cords, edema, 2+ DP pulses B/L Skin: Warm, dry, no appreciable ulcers/rashes ED Treatment Course - LABORATORY CBC & Chemistry Diagram: 11/08/17 10:11 11/08/17 11:51 - RADIOLOGY Radiology Studies Ordered: Category Date Time Status CXRPORT [CHEST X-RAY PORTABLE*] [RAD] Stat Radiology 11/08/17 08:11 Ordered Medical Decision Making - Medical Decision Making 11/08/17 08:33 77 year old male with shortness of breath, on BIPAP at presentation. H/o recent viral URI like symptoms. DDx: COPD exacerbation, CHF exacerbation, r/o ACS, less likely PNA, PE W/u: EKG, CXR, Cardiac Profile Tx: Duo Nebs x2 + Solumedrol, BIPAP 11/08/17 10:07 Dr. Hines (Cardiology) @ bedside; recommends withholding Lasix at this time; patient may require diuresis in the next 24-48 hours 2/2 to fluid overload 2/2 to steroid treatment Respiratory status improved S/p Duo Nebs x2 ABG shows CO2 @ 48 - patient on BIPAP BNP 1146 (previous BNP 2300's in 06/2017) Cr stable @ 1.4 11/08/17 12:[address] Fleming (Pulmonology) @bedside- recommends Levaquin As patient saturating comfortably on BIPAP (40%) will switch to NC or ventimask Patient admitted to inpatient medicine, telemetry for further evaluation. Patient and patient's counseled on plan of care. Will continue to monitor while ED. *DC/Admit/Observation/Transfer Diagnosis at time of Disposition: COPD exacerbation - Discharge Dispostion Condition at time of disposition: Fair Decision to Admit order: Yes - Referrals - Patient Instructions - Post Discharge Activity
[2017-11-08] MEDS ORDERED: methylPREDNISolone NA SUCC 125 MG/2 ML VIAL ONE (08:34)
--- NOTE | 2017-11-08 09:10 | PDOC ---
Attending Attestation - HPI HPI: 11/08/17 09:17 The patient is a 77-year-old male with a past medical history of AAA s/p repair 2011 with perioperative CVA, TAA (4.9cm on 04/03/17), AFib, DVT (on Xarelto), CAD , CHF, COPD, BPH, HTN, HLD, and PPM presents to the emergency department via EMS in respiratory distress. As per , the patients been having difficulty for the past 1 week accompanied with a runny nose and coughing. The patient is on home O2, the reports patient was on 4L of O2, without relief, the patient requested that he be taken to the hospital. Allergies: NKDA. Social history: Former smoker. No alcohol or recreational drug use reported. Surgical history: stent 2000, 2015, CABG 2013, PPM, AAA repair 12/2011 PCP: Dr. [facility] Gunsmith: Dr. Fleming Director Business Integration: Dr. Mak - Physicial Exam PE: 11/08/17 10:08 Vitals: Triage vital signs reviewed General Appearance: In respiratory distress, well nourished, well developed Head: Atraumatic Neck: Supple; No nuchal rigidity Chest Wall: Nontender Cardiac: Regular rate and rhythm, no murmurs, no rubs, no gallops Lungs: (+) Wheezing B/l. Coarse breath sounds. Abdomen: Soft, nondistended, normal bowel sounds, nontender to palpation Extremities: Full range of motion to all extremities, no cyanosis, clubbing, or edema Skin: Warm and dry, no rashes or lesions, no rash, no petechiae Psych: Normal mood, normal affect - Medical Decision Making 11/08/17 09:17 The patient is a 77-year-old male with a past medical history of AAA s/p repair 2011 with perioperative CVA, TAA (4.9cm on 04/03/17), AFib, DVT (on Xarelto), CAD , CHF, COPD, BPH, HTN, HLD, and PPM presents to the emergency department via EMS in respiratory distress. As per , the patients been having difficulty for the past 1 week accompanied with a runny nose and coughing. The patient is on home O2, the reports patient was on 4L of O2, without relief, the patient requested that he be taken to the hospital. <Aisha Rowell - Last Filed: 11/08/17 12:09> - Resident Resident Name: Suzy Florez - ED Attending Attestation I have performed the following: I have examined & evaluated the patient, The case was reviewed & discussed with the resident, I agree w/resident's findings & plan, Exceptions are as noted - Medical Decision Making 11/08/17 13:16 History examination consistent with COPD exacerbation placed on BiPAP given DuoNeb steroids upon arrival Patient seen and evaluated by print operator recommends Levaquin Reevaluation patient's respiratory status improving wheezing has improved saturation is improved Idania to medicine for further management. <Walter Harris - Last Filed: 11/08/17 13:17> Heart Score/ECG Review - ECG Impressions Comment:: 11/08/17 09:10 Vpaced <Walter Harris - Last Filed: 11/08/17 13:17>
[2017-11-08 09:52] LABS: ARTERIAL BLD GAS O2 SATURATION 94.8 % (90-98.9); ARTERIAL BLOOD GAS PCO2 48.2 mmHg (35-45); ARTERIAL BLOOD GAS PO2 91.5 mmHg (70-100); ARTERIAL BLOOD GAS pH 7.39 (7.35-7.45)
--- NOTE | 2017-11-08 09:55 | CON.CARD ---
Consult Consult Specialty:: Cardiology Referred by:: Dr. 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 He presents to ER via EMS for one week of URI sx including dry cough, worsening BULLOCK to point where he "couldn't get air" this morning. Denies fever, chills. Denies chest pain. No LE edema. In ER, bilateral wheezing noted. Placed on NIPPV and given IV Solumedrol with rapid improvement. 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 Cardio/Vascular: Yes: AFIB, Aneurysm, CAD, CHF, HTN, Hyperlipdemia, Murmur, Other (peripheral artery disease) Pulmonary: Yes: COPD Renal/: Yes: BPH - Past Surgical History Past Surgical History: Yes: AAA Repair, Bypass (lower ext), Permanent Pacemaker , Stent (cardiac x 2) - Alcohol/Substance Use Hx Alcohol Use: No History of Substance Use: reports: None - Smoking History Smoking history: Former smoker Have you smoked in the past 12 months: No If you are a former smoker, when did you quit?: 2007 - Social History Usual Living Arrangement: With Spouse ADL: Family Assistance History of Recent Travel: No Home Medications - Allergies Allergies/Adverse Reactions: Allergies Allergy/AdvReac Type Severity Reaction Status Date / Time No Known Allergies Allergy Verified 05/20/17 18:44 - Home Medications Home Medications: Ambulatory Orders Albuterol 0.083% Nebulizer Suki [Ventolin 0.083%] 1 neb NEB QID 11/08/17 Aspirin [Ecotrin] 81 mg PO DAILY 11/08/17 Atorvastatin Ca [Lipitor] 10 mg PO ASDIR 11/08/17 Budesonide/Formeterol Fumarate [SYMBICORT 160/4.5mcg -] 1 inh PO BID 11/08/17 Duloxetine HCl [Cymbalta -] 60 mg PO DAILY 11/08/17 Ferrous Sulfate 325 mg PO DAILY 11/08/17 Fluocinonide 0.05% Cream [Lidex 0.05% Cream -] 1 applic TP DAILY 11/08/17 Furosemide 20 mg PO DAILY 11/08/17 Isosorbide Dinitrate [Isordil -] 20 mg PO BID 11/08/17 Lisinopril [Prinivil] 10 mg PO DAILY 11/08/17 Metoprolol Succinate 75 mg PO DAILY 11/08/17 Pantoprazole Sodium [Protonix] 40 mg PO DAILY 11/08/17 Pregabalin [Lyrica] 100 mg PO DAILY 11/08/17 Rivaroxaban [Xarelto -] 20 mg PO DAILY 11/08/17 Tamsulosin HCl [Flomax] 0.4 mg PO DAILY 11/08/17 Home Medications (free text): Xarelto 20mg daily Family Disease History - Family Disease History Family History: Unremarkable (non-contributory) Review of Systems Findings/Remarks: See HPI - Review of Systems Eyes: denies: No Symptoms, Blind Spots, Blurred Vision, Double Vision, Eye Pain , Floaters, Photophobia, Recent Change in Vision, Other HENT: denies: No Symptoms, Difficult Swallowing, Ear Discharge, Ear Pain, Epistaxis, Gingival Bleeding, Hearing Loss, Mouth Swelling, Nasal Congestion, Ocular Prosthesis, Throat Pain, Toothache, Ringing in Ears, Other Neck: denies: No Symptoms, Decreased ROM, Lumps, Pain on Movement, Stiffness, Swollen Glands, Tenderness, Other Respiratory: reports: Cough, SOB on Exertion, Wheezing Gastrointestinal: denies: No Symptoms, Abdominal Pain, Bloating, Constipation, Diarrhea, Dysphagia, Indigestion, Melena, Nausea, Rectal Bleeding, Vomiting, Vomiting Blood, Other Genitourinary: denies: No Symptoms, Burning, Discharge, Dysuria, Flank Pain, Frequency, Hematuria, Incontinence, Lesions, Menses, Pain, Testicular Mass, Testicular Pain, Testicular Swelling, Urgency, Vaginal Bleeding, Other Breasts: denies: No Symptoms Reported, See HPI, Breast Implants, Discharge from Nipple, Lumps, Pain, Skin Changes, Other Musculoskeletal: denies: No Symptoms, Back Pain, Crepitus, Decreased ROM, Extremity Pain, Joint Pain, Joint Swelling, Muscle Pain, Muscle Cramps, Muscle Weakness, Other Integumentary: denies: No Symptoms, Blister, Bruising, Change in Color, Eczema, Erythema, Incision, Lesions, Lump, Pallor, Pruritis, Rash, Wound, Other Neurological: denies: No Symptoms, Change in LOC, Change in Speech, Confusion, Dizziness, Headache, Incoordination, Numbness, Parasthesia, Pre-Existing Deficit , Seizure, Syncope, Tremors, Unsteady Gait, Weakness, Other Endocrine: denies: No Symptoms, Excessive Sweating, Flushing, Increased Hunger, Increased Thirst, Intolerance to Cold, Intolerance to Heat, Unexplained Weight Gain, Unexplained Weight Loss, Other Hematology/Lymphatic: denies: No Symptoms, Easily Bruised, Excessive Bleeding, Swollen Glands, Other Psychiatric: denies: No Symptoms, Altered Sleep Pattern, Anxiety, Depression, Hallucinations, Panic, Paranoia, Suicidal, Other - Risk Factors Known Risk Factors: Yes: Hypercholesterolemia, Hypertension, Prior OR /Emb Stroke Vital Signs: Vital Signs Temperature Pulse Rate 80 11/08/17 09:44 Respiratory Rate 30 H 11/08/17 08:12 Blood Pressure 125/88 11/08/17 08:12 O2 Sat by Pulse Oximetry (%) 100 11/08/17 09:44 Constitutional: Yes: Moderate Distress Eyes: Yes: Conjunctiva Clear, EOM Intact HENT: Yes: Atraumatic Neck: Yes: Trachea Midline Respiratory: Yes: Poor Air Entry, Wheezes Gastrointestinal: Yes: Soft Cardiovascular: Yes: Regular Rate and Rhythm JVD: No Carotid Bruit: No PMI: Non-Displaced Heart Sounds: Yes: S1, S2 (Paced) Edema: No Peripheral Pulses WNL: Yes Neurological: Yes: Alert, Oriented ...Motor Strength: WNL - Other Data Labs, Other Data: PENDING PENDING: TELE underlying AF with paced rhythm Echo: Pending Prior Cardiac Procedures: Cardiac Catheterization Ejection Fraction %: LVEF > or = 40 % Imaging - Results EKG: Pending Problem List - Problems (1) COPD (chronic obstructive pulmonary disease) Code(s): J44.9 - CHRONIC OBSTRUCTIVE PULMONARY DISEASE, UNSPECIFIED Qualifiers: COPD type: COPD with acute exacerbation Qualified Code(s): J44.1 - Chronic obstructive pulmonary disease with (acute) exacerbation (2) COPD exacerbation Code(s): J44.1 - CHRONIC OBSTRUCTIVE PULMONARY DISEASE W (ACUTE) EXACERBATION (3) History of aortic aneurysm repair Code(s): Z98.890 - OTHER SPECIFIED POSTPROCEDURAL STATES; Z86.79 - PERSONAL HISTORY OF OTHER DISEASES OF THE CIRCULATORY SYSTEM (4) History of arterial bypass of lower extremity Code(s): Z95.828 - PRESENCE OF OTHER VASCULAR IMPLANTS AND GRAFTS (5) PAD (peripheral artery disease) Code(s): I73.9 - PERIPHERAL VASCULAR DISEASE, UNSPECIFIED (6) Afib Code(s): I48.91 - UNSPECIFIED ATRIAL FIBRILLATION Qualifiers: Atrial fibrillation type: chronic Qualified Code(s): I48.2 - Chronic atrial fibrillation (7) CAD (coronary artery disease) Code(s): I25.10 - ATHSCL HEART DISEASE OF [place] CORONARY ARTERY W/O ANG PCTRS Qualifiers: Coronary Disease-Associated Artery/Lesion type: [place] artery (8) History of permanent cardiac pacemaker placement Code(s): Z95.0 - PRESENCE OF CARDIAC PACEMAKER (9) Hx of CABG Code(s): Z95.1 - PRESENCE OF AORTOCORONARY BYPASS GRAFT Assessment/Plan IMP: 1. CAD 2. ICM w/p ZOO DIRECTOR-D (refused ICD) with improvement in LVEF 3. Permanent AF on Xarelto 4. Extensive PAD 5. Multiple aneurysms: thoracic, abdominal and right internal iliac under Vascular surveillance 6. Acute exacerbation of COPD REC: 1. Pulmonary consult for steroid tapering, decision re. abx and optimization of COPD 2. NIPPV as needed. 3. Resume Xarelto and other home cardiac meds: Lisinopril 10/Lasix 20/ Lovastatin 40 or equivalent/Toprol XL 50. Does not seem to need IV Lasix now, but may require if develops clinical signs of volume overload while on steroids. 4. Has regular outpt. Vascular d/u with Dr. Paniagua 5. Routine office PPM interrogations.
[2017-11-08 09:57] LABS: CARBOXYHEMOGLOBIN 0.3 gm% (0.5-2.0)
[2017-11-08 09:58] LABS: ALLENS TEST POSITIVE
[2017-11-08 10:23] LABS: BASO % 0.5 % (0-2.0); EOS % 2.5 % (0-4.5); HEMATOCRIT 41.8 % (35.4-49); HEMOGLOBIN 13.3 GM/dL (11.7-16.9); LYMPH % 9.9 % (8-40); MCH 27.1 pg (25.7-33.7); MCHC 31.9 g/dl (32.0-35.9); MEAN CELL VOLUME 85.1 fl (80-96); MEAN PLT VOLUME 10.4 fl (7.5-11.1); MONO % 7.9 % (3.8-10.2); NEUT % 79.2 % (42.8-82.8); PLATELET COUNT 209 K/MM3 (134-434); RBC 4.91 M/mm3 (4.00-5.60); RDW 16.1 % (11.9-15.9); WHITE BLOOD COUNT 11.7 K/mm3 (4.0-10.0)
--- NOTE | 2017-11-08 10:58 | EKG ---
Test Reason : Blood Pressure : / mmHG Vent. Rate : 076 BPM Atrial Rate : 076 BPM P-R Int : 000 ms QRS Dur : 124 ms QT Int : 416 ms P-R-T Axes : 066 261 085 degrees QTc Int : 468 ms Ventricular-paced rhythm Underlying rhythm is atrial fibrillation WHEN COMPARED WITH ECG OF 22-JUL-2017 20:47, VENT. RATE HAS INCREASED BY 6 BPM Confirmed by AYSE FELIX MD ([id number]) on 11/08/2017 10:58:25 AM Referred By: Confirmed By:AYSE FELIX MD
[2017-11-08] MEDS ORDERED: FUROSEMIDE 40 MG TABLET (FP) ONE (11:03)
[2017-11-08] MEDS ORDERED: LISINOPRIL 5 MG TABLET (FP) ONE (11:04)
--- NOTE | 2017-11-08 12:03 | ECHO ---
Name: HANGIVAN Exam:Adult Echocardiogram Study Date: 11/08/2017 10:52 AM Age: 77 yrs Reason For Study: SOB Height: 67 in Weight: 162 lb BSA: 1.8 m2 Procedure The study was non-diagnostic in quality. No definitive statements could be made about this echo due t o extremely poor acoustic windows. Right Ventricle There is a pacemaker lead in the right ventricle. Pericardium/Pleura Due to the poor quality of the echocardiogram, a pericardial effusion cannot be excluded. Interpretation Summary Suggest repeat TTE when clinically improved and off non-invasive positive pressure ventilation to all ow for better positioning and improved acoustic windows. The study was non-diagnostic in quality. No definit adiel statements could be made about this echo due to extremely poor acoustic windows. There is a pacemaker lead in the right ventricle. Due to the poor quality of the echocardiogram, a pericardial effusion cannot be excluded. MD Rad Hines 11/08/2017 12:03 PM
[2017-11-08 12:24] LABS: ALBUMIN 3.5 g/dl (3.4-5.0); ANION GAP 6 (8-16); BILIRUBIN,TOTAL 0.5 mg/dL (0.2-1.0); BLOOD UREA NITROGEN 24 mg/dL (7-18); CHLORIDE 104 mmol/L (98-107); CO2 32 mmol/L (21-32); CREATININE 1.4 mg/dL (0.7-1.3); GLUCOSE,RANDOM 93 mg/dL (74-106); POTASSIUM 4.8 mmol/L (3.5-5.1); SGOT/AST 12 U/L (15-37); SGPT/ALT 14 U/L (12-78); SODIUM 142 mmol/L (136-145); TOT PROT 6.9 g/dl (6.4-8.2)
[2017-11-08 12:32] LABS: ALK PHOS 53 U/L (45-117); N-TERMINAL BNP 1146.19 pg/ml (5-450)
[2017-11-08] MEDS: LISINOPRIL 10 MG TABLET (FP) PO SCH (12:50)
[2017-11-08] MEDS: FUROSEMIDE 20 MG TABLET (FP) PO SCH (12:50)
--- NOTE | 2017-11-08 13:02 | PN ---
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 (short form) - Note 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: PULMONARY CONSULTATION DICTATED 11/08/17 IMP ACUTE ON CHRONIC HYPOXEMIC RESPIRATORY FAILURE LIKELY URI COPD O2 DEPENDENT ASHD S/P CABG,S/P STENTS CHF PVD AFIB HTN HLD PLAN IV STEROIDS INHALED BRONCHODILATORS NIPPV NEEDED O2 ABX LASIX PER CARDIOLOGY AC CULTURES F/U CHEST X-RAYS DR JEFFERSON Problem List - Problems (1) Acute and chronic respiratory failure with hypoxia Code(s): J96.21 - ACUTE AND CHRONIC RESPIRATORY FAILURE WITH HYPOXIA (2) COPD (chronic obstructive pulmonary disease) Code(s): J44.9 - CHRONIC OBSTRUCTIVE PULMONARY DISEASE, UNSPECIFIED Qualifiers: COPD type: COPD with acute exacerbation Qualified Code(s): J44.1 - Chronic obstructive pulmonary disease with (acute) exacerbation (3) COPD exacerbation Code(s): J44.1 - CHRONIC OBSTRUCTIVE PULMONARY DISEASE W (ACUTE) EXACERBATION (4) History of arterial bypass of lower extremity Code(s): Z95.828 - PRESENCE OF OTHER VASCULAR IMPLANTS AND GRAFTS (5) Old cerebrovascular accident (CVA) without late effect Code(s): Z86.73 - PRSNL HX OF TIA (TIA), AND CEREB INFRC W/O RESID DEFICITS (6) PAD (peripheral artery disease) Code(s): I73.9 - PERIPHERAL VASCULAR DISEASE, UNSPECIFIED (7) SOB (shortness of breath) Code(s): R06.02 - SHORTNESS OF BREATH (8) Afib Code(s): I48.91 - UNSPECIFIED ATRIAL FIBRILLATION Qualifiers: Atrial fibrillation type: chronic Qualified Code(s): I48.2 - Chronic atrial fibrillation (9) CAD (coronary artery disease) Code(s): I25.10 - ATHSCL HEART DISEASE OF [place] CORONARY ARTERY W/O ANG PCTRS Qualifiers: Coronary Disease-Associated Artery/Lesion type: [place] artery (10) Hx of CABG Code(s): Z95.1 - PRESENCE OF AORTOCORONARY BYPASS GRAFT (11) Hyperlipidemia Code(s): E78.5 - HYPERLIPIDEMIA, UNSPECIFIED Qualifiers: (12) Hypertension Code(s): I10 - ESSENTIAL (PRIMARY) HYPERTENSION Qualifiers: Hypertension type: essential hypertension Qualified Code(s): I10 - Essential (primary) hypertension (13) Peripheral artery disease Code(s): I73.9 - PERIPHERAL VASCULAR DISEASE, UNSPECIFIED
--- NOTE | 2017-11-08 14:07 | CONS ---
DATE OF CONSULTATION: 11/08/2017 REFERRING PHYSICIAN: Xavier Escamilla MD HISTORY: The patient is a 77-year-old white male known to me from previous hospitalizations as well as office follow up with past medical history of advanced COPD on home O2, hypertension, hyperlipidemia, atrial fibrillation, ASHD status post CABG, status post stents, history of CVA with residual left-sided weakness, CAD, multiple aneurysms, stable 5.1 thoracic aortic aneurysm, status post femoral bypass admitted to [facility] with the complaint of a 1-week- history of cough, chest congestion, shortness of breath, and wheezing. According to the patient's , for the past week it was noted the patient was having some chest congestion and cough. He did not seek medical attention. Apparently, he was feeling a little better on Saturday prior to this admission and then his symptoms started increasing in severity yesterday and today significantly worsened at which time he presented to the emergency room. In the ER, he was found to be in moderate-to- severe respiratory distress. He was placed on BiPAP with some clinical improvement. There was no fever or chills. There was no hemoptysis. There was a cough productive of yellowish sputum. There no nausea, vomiting, or diarrhea. No chest pain or palpitations. PAST MEDICAL HISTORY: Again, advanced COPD on home O2, ASHD status post CABG, status post stents, hyperlipidemia, hypertension, CVA with residual left-sided weakness , PAD, multiple aortic aneurysms, status post femoropopliteal bypass. SOCIAL HISTORY: Tobacco use. Quit 10 years ago. No occupational exposures. No recent travel. CURRENT MEDICATIONS: Prior to admission include albuterol, aspirin, Lipitor, Symbicort, Cymbalta, Lidex cream, Lasix, Isordil, lisinopril, metoprolol, pantoprazole, pregabalin, Xarelto. Current medications include Levaquin, Prinivil, Xarelto, Toprol, Lipitor, and Lasix. REVIEW OF SYSTEMS: Positive for shortness of breath, positive cough, positive weakness. No fever, no chills, no hemoptysis, no abdominal pain, no chest pain , no palpitations. PHYSICAL EXAMINATION: General: The patient is an elderly white male well-developed, awake, alert on BiPAP. Vital Signs: He is currently afebrile. Blood pressure 142/98, respiratory rate is 22, O2 saturation 95% on BiPAP. HEENT: Normocephalic and atraumatic. Neck: Supple. Heart: Irregular with S1, S2. Chest: Diffuse bilateral wheezes. Abdomen: Soft. Bowel sounds are positive. Extremities: Without cyanosis or edema. LABORATORIES: WBC 11.7, hemoglobin 13.3, hematocrit 41.8 with a platelet count of 209,000. Blood gas: PH 7.39, PCO2 of 48, PO2 of 91, bicarbonate 28, and saturation 94.8. Chemistries: BUN 24, creatinine 1.4, BNP 1146. Chest x-ray reveals no acute infiltrates and/or effusions. IMPRESSION: 1. Acute and chronic hypoxemic respiratory failure likely secondary to acute exacerbation of chronic obstructive pulmonary disease. 2. Likely upper respiratory infection. Cannot exclude pneumonia though not appreciated on chest x-ray. 3. Arteriosclerotic heart disease status post coronary artery bypass graft status post stents. 4. Peripheral vascular disease status post femoropopliteal bypass. 5. Multiple aneurysms. 6. Hypertension. 7. Hyperlipidemia. 8. Atrial fibrillation. 9. CHF PLAN: IV steroids. Inhaled bronchodilators. BiPAP. On IPV as needed. Supplemental O2 to maintain O2 saturation greater than 90%. Supplemental antibiotics. Follow up chest x-ray. Sputum for culture and sensitivity.Emmanuel as per cardiology Noah BELTRÁN/[id number] MTDD
[2017-11-08] MEDS: PREGABALIN 100 MG CAPSULE PO SCH ×2 (15:18→22:19)
[2017-11-08] MEDS: methylPREDNISolone NA SUCC 40 MG/1 ML VIAL IVPUSH SCH ×2 (15:18→22:18)
[2017-11-08] MEDS: ALBUTEROL SO4 2.5/IPRATROPIUM 0.5 INH SOL 3 ML VIAL.NEB. NEB SCH ×2 (15:49→20:54)
[2017-11-08] MEDS: RIVAROXABAN 20 MG TABLET PO SCH (17:12)
--- NOTE | 2017-11-08 17:25 | HP ---
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 He presents to ER via EMS for one week of URI sx including dry cough, worsening BULLOCK to point where he "couldn't get air" this morning. 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 Cardiovascular: Yes: AFIB, Aneurysm, CAD, CHF, HTN, Hyperlipdemia, Murmur, Other (peripheral artery disease) Pulmonary: Yes: COPD Renal/: Yes: BPH - Past Surgical History Past Surgical History: Yes: AAA Repair, Bypass (lower ext), Permanent Pacemaker , Stent (cardiac x 2) - Smoking History Smoking history: Former smoker Have you smoked in the past 12 months: No If you are a former smoker, when did you quit?: 2007 - Alcohol/Substance Use Hx Alcohol Use: No History of Substance Use: reports: None - Social History ADL: Family Assistance History of Recent Travel: No Home Medications - Allergies Allergies/Adverse Reactions: Allergies Allergy/AdvReac Type Severity Reaction Status Date / Time No Known Allergies Allergy Verified 05/20/17 18:44 - Home Medications Home Medications: Ambulatory Orders Albuterol 0.083% Nebulizer Suki [Ventolin 0.083%] 1 neb NEB QID 11/08/17 Aspirin [Ecotrin] 81 mg PO DAILY 11/08/17 Budesonide/Formeterol Fumarate [SYMBICORT 160/4.5mcg -] 1 inh PO BID 11/08/17 Duloxetine HCl [Cymbalta -] 60 mg PO DAILY 11/08/17 Ferrous Sulfate 325 mg PO DAILY 11/08/17 Fluocinonide 0.05% Cream [Lidex 0.05% Cream -] 1 applic TP DAILY 11/08/17 Furosemide 20 mg PO DAILY 11/08/17 Isosorbide Dinitrate [Isordil -] 20 mg PO BID 11/08/17 Lisinopril [Prinivil] 10 mg PO DAILY 11/08/17 Lovastatin 10 mg PO HS 11/08/17 Metoprolol Succinate 100 mg PO DAILY 11/08/17 Pantoprazole Sodium [Protonix] 40 mg PO DAILY 11/08/17 Pregabalin [Lyrica] 100 mg PO TID 11/08/17 Rivaroxaban [Xarelto -] 20 mg PO DAILY 11/08/17 Tamsulosin HCl [Flomax] 0.4 mg PO HS 11/08/17 Review of Systems - Review of Systems Constitutional: reports: Loss of Appetite, Weakness Eyes: reports: No Symptoms HENT: reports: No Symptoms Neck: reports: No Symptoms Cardiovascular: reports: Shortness of Breath Respiratory: reports: Cough, SOB Gastrointestinal: reports: No Symptoms Genitourinary: reports: No Symptoms Musculoskeletal: reports: No Symptoms Integumentary: reports: No Symptoms, Bruising Neurological: reports: Pre-Existing Deficit Endocrine: reports: No Symptoms Hematology/Lymphatic: reports: No Symptoms Psychiatric: reports: No Symptoms Physical Examination Vital Signs: Vital Signs Temperature 98.8 F 11/08/17 15:24 Pulse Rate 78 11/08/17 15:24 Respiratory Rate 22 11/08/17 15:24 Blood Pressure 138/80 11/08/17 15:24 O2 Sat by Pulse Oximetry (%) 92 L 11/08/17 15:24 Constitutional: Yes: Moderate Distress Eyes: Yes: WNL HENT: Yes: WNL Neck: Yes: WNL Cardiovascular: Yes: Pulse Irregular Respiratory: Yes: On Nasal O2, SOB Gastrointestinal: Yes: WNL Renal/: Yes: WNL Musculoskeletal: Yes: Muscle Weakness Extremities: Yes: Other Edema: Yes Edema: LLE: 1+, RLE: 1+ Peripheral Pulses WNL: Yes Integumentary: Yes: Bruising Wound/Incision: Yes: Clean/Dry Neurological: Yes: Pre-Existing Deficit ...Motor Strength: LLE, RLE Psychiatric: Yes: WNL Labs: CBC, BMP 11/08/17 10:11 11/08/17 11:51 Imaging - Results Chest X-ray: Report Reviewed Problem List - Problems (1) Acute and chronic respiratory failure with hypoxia Code(s): J96.21 - ACUTE AND CHRONIC RESPIRATORY FAILURE WITH HYPOXIA (2) SOB (shortness of breath) Code(s): R06.02 - SHORTNESS OF BREATH (3) CAD (coronary artery disease) Code(s): I25.10 - ATHSCL HEART DISEASE OF [place] CORONARY ARTERY W/O ANG PCTRS Qualifiers: Coronary Disease-Associated Artery/Lesion type: [place] artery Associated angina: with stable angina (4) CKD (chronic kidney disease) Code(s): N18.9 - CHRONIC KIDNEY DISEASE, UNSPECIFIED Qualifiers: Chronic kidney disease stage: stage 3 (moderate) Qualified Code(s): N18.3 - Chronic kidney disease, stage 3 (moderate) (5) COPD (chronic obstructive pulmonary disease) Code(s): J44.9 - CHRONIC OBSTRUCTIVE PULMONARY DISEASE, UNSPECIFIED Qualifiers: COPD type: COPD with acute exacerbation Qualified Code(s): J44.1 - Chronic obstructive pulmonary disease with (acute) exacerbation (6) History of aortic aneurysm repair Code(s): Z98.890 - OTHER SPECIFIED POSTPROCEDURAL STATES; Z86.79 - PERSONAL HISTORY OF OTHER DISEASES OF THE CIRCULATORY SYSTEM (7) History of arterial bypass of lower extremity Code(s): Z95.828 - PRESENCE OF OTHER VASCULAR IMPLANTS AND GRAFTS (8) Old cerebrovascular accident (CVA) without late effect Code(s): Z86.73 - PRSNL HX OF TIA (TIA), AND CEREB INFRC W/O RESID DEFICITS (9) Hx of CABG Code(s): Z95.1 - PRESENCE OF AORTOCORONARY BYPASS GRAFT (10) Paroxysmal atrial fibrillation Code(s): I48.0 - PAROXYSMAL ATRIAL FIBRILLATION (11) Presence of cardiac pacemaker Code(s): Z95.0 - PRESENCE OF CARDIAC PACEMAKER (12) Stented coronary artery Code(s): Z95.5 - PRESENCE OF CORONARY ANGIOPLASTY IMPLANT AND GRAFT Assessment/Plan TREAT ACUTE ON CHRONIC CHF/COPD IV STEROIDS LASIX TELE MONITOR OOB TO CHAIR WITH ASSIST ONLY 02 SUPPORT NEBS PULMONARY/CARDIOLOGY EVAL DAILY WEIGHTS LOW SALT DIET LIPID PANEL
[2017-11-08] MEDS: FLUOCINONIDE 0.05% CREAM (15 GM TUBE) TP SCH (22:18)
[2017-11-08] MEDS: METHYL SALICYLATE/MENTHOL OINT 30 GM TUBE TP SCH (22:18)
[2017-11-08] MEDS: ATORVASTATIN CA 20 MG TABLET (FP) PO SCH (22:19)
[2017-11-09] MEDS: methylPREDNISolone NA SUCC 40 MG/1 ML VIAL IVPUSH SCH ×4 (03:03→21:12)
[2017-11-09] MEDS: PREGABALIN 100 MG CAPSULE PO SCH ×3 (06:21→21:12)
[2017-11-09] MEDS: ACETAMINOPHEN 325 MG TABLET (FP) PO PRN (06:21)
[2017-11-09 07:30] LABS: HEMATOCRIT 40.1 % (35.4-49); HEMOGLOBIN 13.5 GM/dL (11.7-16.9); MCH 28.3 pg (25.7-33.7); MCHC 33.8 g/dl (32.0-35.9); MEAN CELL VOLUME 83.8 fl (80-96); MEAN PLT VOLUME 9.3 fl (7.5-11.1); PLATELET COUNT 187 K/MM3 (134-434); RBC 4.78 M/mm3 (4.00-5.60); RDW 15.7 % (11.9-15.9)
[2017-11-09 08:07] LABS: CALCIUM 9.1 mg/dL (8.5-10.1); CHLORIDE 105 mmol/L (98-107); POTASSIUM 4.8 mmol/L (3.5-5.1); SODIUM 143 mmol/L (136-145)
[2017-11-09 08:10] LABS: ALBUMIN 3.3 g/dl (3.4-5.0); ALK PHOS 49 U/L (45-117); ANION GAP 11 (8-16); BILIRUBIN,TOTAL 0.4 mg/dL (0.2-1.0); BLOOD UREA NITROGEN 30 mg/dL (7-18); CHOLESTEROL 144 mg/dL (50-200); CO2 27 mmol/L (21-32); CREATININE 1.4 mg/dL (0.7-1.3); GLUCOSE,RANDOM 132 mg/dL (74-106); HDL CHOLESTEROL 34 mg/dL (40-60); SGOT/AST 13 U/L (15-37); SGPT/ALT 13 U/L (12-78); TOT PROT 6.9 g/dl (6.4-8.2); TRIGLYCERIDES 57 mg/dL (35-160)
[2017-11-09] MEDS: ALBUTEROL SO4 2.5/IPRATROPIUM 0.5 INH SOL 3 ML VIAL.NEB. NEB SCH ×4 (08:20→20:45)
[2017-11-09] MEDS: TAMSULOSIN HCL 0.4 MG CAP.ER.24H (FP) PO SCH (09:42)
[2017-11-09] MEDS: DULoxetine HCL 30 MG CAPSULE.DR (FP) PO SCH (09:42)
[2017-11-09] MEDS: LISINOPRIL 10 MG TABLET (FP) PO SCH (09:43)
[2017-11-09] MEDS: FLUOCINONIDE 0.05% CREAM (15 GM TUBE) TP SCH ×2 (09:45→21:14)
[2017-11-09] MEDS: METHYL SALICYLATE/MENTHOL OINT 30 GM TUBE TP SCH ×2 (09:45→21:13)
[2017-11-09] MEDS: PANTOPRAZOLE 40 MG TABLET (FP) PO SCH (09:46)
[2017-11-09] MEDS ORDERED: DULoxetine HCL 30 MG CAPSULE.DR (FP) PO SCH (10:00)
--- NOTE | 2017-11-09 10:40 | PN ---
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, Physician Chief Complaint: Cardiology f/u with Dr. Hines History of Present Illness: Dyspnea, cough, wheezing improving. Did not use NIPPV overnight. - Current Medication List Current Medications: Active Medications Acetaminophen (Tylenol -) 650 mg PO Q6H PRN PRN Reason: PAIN OR FEVER Last Admin: 11/09/17 06:21 Dose: 650 mg Albuterol/Ipratropium (Duoneb -) 1 amp NEB RQID [facility] Last Admin: 11/09/17 08:20 Dose: 1 amp Atorvastatin Calcium (Lipitor -) 20 mg PO HS [facility] Last Admin: 11/08/17 22:19 Dose: 20 mg Duloxetine HCl (Cymbalta -) 60 mg PO DAILY [facility] Last Admin: 11/09/17 09:42 Dose: 60 mg Fluocinonide (Lidex 0.05% Cream -) 1 applic TP BID [facility] Last Admin: 11/09/17 09:45 Dose: Not Given Furosemide (Lasix -) 20 mg PO DAILY [facility] Last Admin: 11/08/17 12:50 Dose: Not Given Lisinopril (Prinivil) 10 mg PO DAILY [facility] Last Admin: 11/09/17 09:43 Dose: 10 mg Methyl Salicylate (Alexy-Santos -) 1 applic TP BID [facility] Last Admin: 11/09/17 09:45 Dose: Not Given Methylprednisolone Sodium Succinate (Solu-Medrol -) 40 mg IVPUSH Q6H-IV [facility] Last Admin: 11/09/17 08:37 Dose: 40 mg Metoprolol Succinate (Toprol Xl -) 50 mg PO DAILY [facility] Last Admin: 11/09/17 09:42 Dose: 50 mg Pantoprazole Sodium (Protonix -) 40 mg PO DAILY [facility] Last Admin: 11/09/17 09:46 Dose: 40 mg Pregabalin (Lyrica -) 100 mg PO TID [facility] Last Admin: 11/09/17 06:21 Dose: 100 mg Rivaroxaban (Xarelto -) 20 mg PO DAILY@1800 [facility] Last Admin: 11/08/17 17:12 Dose: 20 mg Tamsulosin HCl (Flomax -) 0.4 mg PO DAILY@0830 [facility] Last Admin: 11/09/17 09:42 Dose: 0.4 mg - Objective Vital Signs: Vital Signs Temperature 98.2 F 11/09/17 05:12 Pulse Rate 90 11/09/17 05:12 Respiratory Rate 20 11/09/17 05:12 Blood Pressure 131/83 11/09/17 05:12 O2 Sat by Pulse Oximetry (%) 90 L 11/09/17 09:12 Constitutional: Yes: No Distress, Calm Neck: Yes: Supple Cardiovascular: Yes: Regular Rate and Rhythm Respiratory: Yes: Regular, Cough, Diminished, On Nasal O2, SOB, Wheezes Gastrointestinal: Yes: Normal Bowel Sounds, Soft Edema: No Labs: CBC, BMP 11/09/17 07:00 11/09/17 07:00 - ....Imaging EKG: Report Reviewed (Tele: Afib v-paced) Assessment/Plan - Problems (1) COPD (chronic obstructive pulmonary disease) Code(s): J44.9 - CHRONIC OBSTRUCTIVE PULMONARY DISEASE, UNSPECIFIED Qualifiers: COPD type: COPD with acute exacerbation Qualified Code(s): J44.1 - Chronic obstructive pulmonary disease with (acute) exacerbation (2) COPD exacerbation Code(s): J44.1 - CHRONIC OBSTRUCTIVE PULMONARY DISEASE W (ACUTE) EXACERBATION (3) History of aortic aneurysm repair Code(s): Z98.890 - OTHER SPECIFIED POSTPROCEDURAL STATES; Z86.79 - PERSONAL HISTORY OF OTHER DISEASES OF THE CIRCULATORY SYSTEM (4) History of arterial bypass of lower extremity Code(s): Z95.828 - PRESENCE OF OTHER VASCULAR IMPLANTS AND GRAFTS (5) PAD (peripheral artery disease) Code(s): I73.9 - PERIPHERAL VASCULAR DISEASE, UNSPECIFIED (6) Afib Code(s): I48.91 - UNSPECIFIED ATRIAL FIBRILLATION Qualifiers: Atrial fibrillation type: chronic Qualified Code(s): I48.2 - Chronic atrial fibrillation (7) CAD (coronary artery disease) Code(s): I25.10 - ATHSCL HEART DISEASE OF [place] CORONARY ARTERY W/O ANG PCTRS Qualifiers: Coronary Disease-Associated Artery/Lesion type: [place] artery (8) History of permanent cardiac pacemaker placement Code(s): Z95.0 - PRESENCE OF CARDIAC PACEMAKER (9) Hx of CABG Code(s): Z95.1 - PRESENCE OF AORTOCORONARY BYPASS GRAFT Assessment/Plan IMP: 1. CAD s/p CABG s/p stents 2. 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 Permanent AF on Xarelto 4. Extensive PAD 5. Multiple aneurysms: thoracic, abdominal and right internal iliac under Vascular surveillance 6. Acute on chronic hypoxemic respiratory failure referable to acute exacerbation of COPD 7. HTN 8. Hyperlipidemia REC: 1. IV steroids with GI protection, BD, abx, NIPPV, O2 as needed. 2. Continue Xarelto 20 qd and other home cardiac meds: Lisinopril 10/Lasix 20/ Lovastatin 40 or equivalent/Toprol XL 50. 3. Does not seem to need IV Lasix now, but may require if develops clinical signs of volume overload while on steroids. 4. Has regular outpt. Vascular f/u with Dr. Paniagua 5. Routine office PPM interrogations. 6. OOB to chair
--- NOTE | 2017-11-09 13:05 | PN ---
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 (short form) - Note 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: PULMONARY VSS/AFEBRILE OFFERS NO COMPLAINTS ANICTERIC B/L END EXP WHEEZES DIFFUSE S1S2 BS+ NO EDEMA LABS/MEDS/NOTES/IMAGES REVIEWED IMP ACUTE ON CHRONIC HYPOXEMIC RESPIRATORY FAILURE LIKELY URI COPD O2 DEPENDENT ASHD S/P CABG,S/P STENTS PVD AFIB HTN NLD PLAN IV STEROIDS INHALED BRONCHODILATORS NIPPV NEEDED O2 ABX LASIX PER CARDIOLOGY AC CULTURES F/U CHEST X-RAYS Kane GHOTRA MD
--- NOTE | 2017-11-09 14:01 | PN ---
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, Physician - Current Medication List Current Medications: Active Medications Acetaminophen (Tylenol -) 650 mg PO Q6H PRN PRN Reason: PAIN OR FEVER Last Admin: 11/09/17 06:21 Dose: 650 mg Albuterol/Ipratropium (Duoneb -) 1 amp NEB RQID [facility] Last Admin: 11/09/17 11:57 Dose: 1 amp Atorvastatin Calcium (Lipitor -) 20 mg PO HS [facility] Last Admin: 11/08/17 22:19 Dose: 20 mg Duloxetine HCl (Cymbalta -) 60 mg PO DAILY [facility] Last Admin: 11/09/17 09:42 Dose: 60 mg Fluocinonide (Lidex 0.05% Cream -) 1 applic TP BID [facility] Last Admin: 11/09/17 09:45 Dose: Not Given Furosemide (Lasix -) 20 mg PO DAILY [facility] Last Admin: 11/08/17 12:50 Dose: Not Given Lisinopril (Prinivil) 10 mg PO DAILY [facility] Last Admin: 11/09/17 09:43 Dose: 10 mg Methyl Salicylate (Alexy-Santos -) 1 applic TP BID [facility] Last Admin: 11/09/17 09:45 Dose: Not Given Methylprednisolone Sodium Succinate (Solu-Medrol -) 40 mg IVPUSH Q6H-IV [facility] Last Admin: 11/09/17 08:37 Dose: 40 mg Metoprolol Succinate (Toprol Xl -) 50 mg PO DAILY [facility] Last Admin: 11/09/17 09:42 Dose: 50 mg Pantoprazole Sodium (Protonix -) 40 mg PO DAILY [facility] Last Admin: 11/09/17 09:46 Dose: 40 mg Pregabalin (Lyrica -) 100 mg PO TID [facility] Last Admin: 11/09/17 06:21 Dose: 100 mg Rivaroxaban (Xarelto -) 20 mg PO DAILY@1800 [facility] Last Admin: 11/08/17 17:12 Dose: 20 mg Tamsulosin HCl (Flomax -) 0.4 mg PO DAILY@0830 [facility] Last Admin: 11/09/17 09:42 Dose: 0.4 mg - Objective Vital Signs: Vital Signs Temperature 98.2 F 11/09/17 05:12 Pulse Rate 90 11/09/17 05:12 Respiratory Rate 20 11/09/17 05:12 Blood Pressure 131/83 11/09/17 05:12 O2 Sat by Pulse Oximetry (%) 90 L 11/09/17 09:12 Cardiovascular: Yes: S1, S2 Respiratory: Yes: Rales, Rhonchi Gastrointestinal: Yes: Normal Bowel Sounds, Soft Labs: CBC, BMP 11/09/17 07:00 11/09/17 07:00 Problem List - Problems (1) COPD exacerbation Assessment/Plan: IV STEROIDS NEBS OXYGEN AB Code(s): J44.1 - CHRONIC OBSTRUCTIVE PULMONARY DISEASE W (ACUTE) EXACERBATION (2) CHF (congestive heart failure) Assessment/Plan: -IV LASIX Code(s): I50.9 - HEART FAILURE, UNSPECIFIED (3) CAD (coronary artery disease) Assessment/Plan: NO CP MONITOR Code(s): I25.10 - ATHSCL HEART DISEASE OF [place] CORONARY ARTERY W/O ANG PCTRS Qualifiers: Coronary Disease-Associated Artery/Lesion type: [place] artery Associated angina: with stable angina
[2017-11-09] MEDS: FUROSEMIDE 40 MG/4 ML INJECTABLE VIAL IVPUSH SCH (14:08)
--- NOTE | 2017-11-09 14:16 | CON.NEP ---
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 TIMBER: Yes: CVA, Seizure Cardio/Vascular: Yes: AFIB, Aneurysm, CAD, CHF, HTN, Hyperlipdemia, Murmur, Other (peripheral artery disease) Pulmonary: Yes: COPD Renal/: Yes: BPH - Past Surgical History Past Surgical History: Yes: AAA Repair, Bypass (lower ext), Permanent Pacemaker , Stent (cardiac x 2) - Alcohol/Substance Use Hx Alcohol Use: No History of Substance Use: reports: None - Smoking History Smoking history: Former smoker Have you smoked in the past 12 months: No If you are a former smoker, when did you quit?: 2007 - Social History Usual Living Arrangement: With Spouse ADL: Family Assistance History of Recent Travel: No Home Medications - Allergies Allergies/Adverse Reactions: Allergies Allergy/AdvReac Type Severity Reaction Status Date / Time No Known Allergies Allergy Verified 05/20/17 18:44 - Home Medications Home Medications: Ambulatory Orders Albuterol 0.083% Nebulizer Suki [Ventolin 0.083%] 1 neb NEB QID 11/08/17 Aspirin [Ecotrin] 81 mg PO DAILY 11/08/17 Budesonide/Formeterol Fumarate [SYMBICORT 160/4.5mcg -] 1 inh PO BID 11/08/17 Duloxetine HCl [Cymbalta -] 60 mg PO DAILY 11/08/17 Ferrous Sulfate 325 mg PO DAILY 11/08/17 Fluocinonide 0.05% Cream [Lidex 0.05% Cream -] 1 applic TP DAILY 11/08/17 Furosemide 20 mg PO DAILY 11/08/17 Isosorbide Dinitrate [Isordil -] 20 mg PO BID 11/08/17 Lisinopril [Prinivil] 10 mg PO DAILY 11/08/17 Lovastatin 10 mg PO HS 11/08/17 Metoprolol Succinate 100 mg PO DAILY 11/08/17 Pantoprazole Sodium [Protonix] 40 mg PO DAILY 11/08/17 Pregabalin [Lyrica] 100 mg PO TID 11/08/17 Rivaroxaban [Xarelto -] 20 mg PO DAILY 11/08/17 Tamsulosin HCl [Flomax] 0.4 mg PO HS 11/08/17 Nephrology Consult - Height Height: 5 ft 7 in - Weight Weight: 162 lb - BMI Body Mass Index (BMI): 25.3 - Lab Results CBC,BMP: CBC, BMP 11/09/17 07:00 11/09/17 07:00 Anion Gap: Anion Gap Anion Gap 11 (8-16) 11/09/17 07:00 - Physical Examination Vital Signs: Vital Signs Temperature 98.2 F 11/09/17 05:12 Pulse Rate 90 11/09/17 05:12 Respiratory Rate 20 11/09/17 05:12 Blood Pressure 131/83 11/09/17 05:12 O2 Sat by Pulse Oximetry (%) 90 L 11/09/17 09:12 Respiratory: Yes: Wheezes (faint) Gastrointestinal: Yes: WNL Edema: No Assessment/Plan michael prob prerenal from decompensated hf no evidence of acute intrinsic renal dis Plan hydrate cautiously follow renal profile
[2017-11-09] MEDS: FUROSEMIDE 20 MG TABLET (FP) PO SCH (14:23)
[2017-11-09] MEDS: RIVAROXABAN 20 MG TABLET PO SCH (18:06)
[2017-11-09] MEDS: ATORVASTATIN CA 20 MG TABLET (FP) PO SCH (21:12)
[2017-11-10] MEDS: methylPREDNISolone NA SUCC 40 MG/1 ML VIAL IVPUSH SCH ×4 (02:18→21:06)
[2017-11-10] MEDS: PREGABALIN 100 MG CAPSULE PO SCH ×3 (05:45→21:06)
[2017-11-10] MEDS: ALBUTEROL SO4 2.5/IPRATROPIUM 0.5 INH SOL 3 ML VIAL.NEB. NEB SCH ×4 (08:00→20:58)
[2017-11-10 08:26] LABS: ALBUMIN 3.4 g/dl (3.4-5.0); ANION GAP 9 (8-16); BILIRUBIN,TOTAL 0.3 mg/dL (0.2-1.0); BLOOD UREA NITROGEN 36 mg/dL (7-18); CHLORIDE 102 mmol/L (98-107); CO2 30 mmol/L (21-32); CREATININE 1.3 mg/dL (0.7-1.3); GLUCOSE,RANDOM 121 mg/dL (74-106); POTASSIUM 4.2 mmol/L (3.5-5.1); SGOT/AST 15 U/L (15-37); SGPT/ALT 16 U/L (12-78); SODIUM 141 mmol/L (136-145); TOT PROT 7.1 g/dl (6.4-8.2)
[2017-11-10 08:27] LABS: ALK PHOS 53 U/L (45-117)
[2017-11-10] MEDS ORDERED: PT OWN MED DRAWER 7, Y5N ONE (08:48)
[2017-11-10] MEDS: TAMSULOSIN HCL 0.4 MG CAP.ER.24H (FP) PO SCH (08:52)
[2017-11-10] MEDS: DULoxetine HCL 30 MG CAPSULE.DR (FP) PO SCH ×2 (08:52→09:10)
[2017-11-10] MEDS: LISINOPRIL 10 MG TABLET (FP) PO SCH ×2 (08:52→09:10)
[2017-11-10] MEDS: PANTOPRAZOLE 40 MG TABLET (FP) PO SCH ×2 (08:53→09:10)
[2017-11-10] MEDS: FUROSEMIDE 40 MG/4 ML INJECTABLE VIAL IVPUSH SCH ×2 (08:53→09:10)
[2017-11-10] MEDS: METHYL SALICYLATE/MENTHOL OINT 30 GM TUBE TP SCH ×2 (09:09→21:06)
[2017-11-10] MEDS: FLUOCINONIDE 0.05% CREAM (15 GM TUBE) TP SCH ×2 (09:10→21:07)
--- NOTE | 2017-11-10 11:41 | PN ---
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 (short form) - Note 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: PULMONARY VSS/AFEBRILE OFFERS NO COMPLAINTS OOB TO CHAIR ANICTERIC B/L END EXP WHEEZES DIMINISHED S1S2 BS+ NO EDEMA LABS/MEDS/NOTES/IMAGES REVIEWED IMP ACUTE ON CHRONIC HYPOXEMIC RESPIRATORY FAILURE LIKELY URI COPD O2 DEPENDENT ASHD S/P CABG,S/P STENTS PVD AFIB HTN NLD PLAN STEROIDS TO BE REDUCED INHALED BRONCHODILATORS NIPPV NEEDED O2 ABX LASIX PER CARDIOLOGY AC CULTURES F/U CHEST X-RAYS Kane GHOTRA MD
--- NOTE | 2017-11-10 11:42 | PN ---
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, Physician - Current Medication List Current Medications: Active Medications Acetaminophen (Tylenol -) 650 mg PO Q6H PRN PRN Reason: PAIN OR FEVER Last Admin: 11/09/17 06:21 Dose: 650 mg Albuterol/Ipratropium (Duoneb -) 1 amp NEB RQID [facility] Last Admin: 11/09/17 20:45 Dose: 1 amp Atorvastatin Calcium (Lipitor -) 20 mg PO HS [facility] Last Admin: 11/09/17 21:12 Dose: 20 mg Duloxetine HCl (Cymbalta -) 60 mg PO DAILY [facility] Last Admin: 11/10/17 09:10 Dose: Not Given Fluocinonide (Lidex 0.05% Cream -) 1 applic TP BID [facility] Last Admin: 11/10/17 09:10 Dose: Not Given Furosemide (Lasix Injection -) 40 mg IVPUSH DAILY [facility] Last Admin: 11/10/17 09:10 Dose: Not Given Lisinopril (Prinivil) 10 mg PO DAILY [facility] Last Admin: 11/10/17 09:10 Dose: Not Given Methyl Salicylate (Alexy-Santos -) 1 applic TP BID [facility] Last Admin: 11/10/17 09:09 Dose: Not Given Methylprednisolone Sodium Succinate (Solu-Medrol -) 20 mg IVPUSH Q6H-IV [facility] Metoprolol Succinate (Toprol Xl -) 50 mg PO DAILY [facility] Last Admin: 11/10/17 09:10 Dose: Not Given Pantoprazole Sodium (Protonix -) 40 mg PO DAILY [facility] Last Admin: 11/10/17 09:10 Dose: Not Given Pregabalin (Lyrica -) 100 mg PO TID [facility] Last Admin: 11/10/17 05:45 Dose: 100 mg Rivaroxaban (Xarelto -) 20 mg PO DAILY@1800 [facility] Last Admin: 11/09/17 18:06 Dose: 20 mg Tamsulosin HCl (Flomax -) 0.4 mg PO DAILY@0830 [facility] Last Admin: 11/10/17 08:52 Dose: 0.4 mg - Objective Vital Signs: Vital Signs Temperature 97.8 F 11/10/17 08:09 Pulse Rate 73 11/10/17 08:09 Respiratory Rate 18 11/10/17 08:09 Blood Pressure 144/93 11/10/17 08:09 O2 Sat by Pulse Oximetry (%) 90 L 11/10/17 09:00 Cardiovascular: Yes: S1, S2 Respiratory: Yes: On Nasal O2, Rhonchi Gastrointestinal: Yes: Normal Bowel Sounds, Soft. No: Tenderness Labs: CBC, BMP 11/09/17 07:00 11/10/17 07:00 Problem List - Problems (1) COPD exacerbation Assessment/Plan: IV STEROIDS NEBS OXYGEN AB Code(s): J44.1 - CHRONIC OBSTRUCTIVE PULMONARY DISEASE W (ACUTE) EXACERBATION (2) CHF (congestive heart failure) Assessment/Plan: -IV LASIX Code(s): I50.9 - HEART FAILURE, UNSPECIFIED (3) CAD (coronary artery disease) Assessment/Plan: NO CP MONITOR Code(s): I25.10 - ATHSCL HEART DISEASE OF [place] CORONARY ARTERY W/O ANG PCTRS Qualifiers: Coronary Disease-Associated Artery/Lesion type: [place] artery Associated angina: with stable angina
--- NOTE | 2017-11-10 13:36 | PN ---
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, Physician Chief Complaint: Cardiology f/u with Dr. Hines History of Present Illness: Dyspnea, cough, wheezing improving. - Current Medication List Current Medications: Active Medications Acetaminophen (Tylenol -) 650 mg PO Q6H PRN PRN Reason: PAIN OR FEVER Last Admin: 11/09/17 06:21 Dose: 650 mg Albuterol/Ipratropium (Duoneb -) 1 amp NEB RQID [facility] Last Admin: 11/10/17 12:25 Dose: 1 amp Atorvastatin Calcium (Lipitor -) 20 mg PO HS [facility] Last Admin: 11/09/17 21:12 Dose: 20 mg Duloxetine HCl (Cymbalta -) 60 mg PO DAILY [facility] Last Admin: 11/10/17 09:10 Dose: Not Given Fluocinonide (Lidex 0.05% Cream -) 1 applic TP BID [facility] Last Admin: 11/10/17 09:10 Dose: Not Given Furosemide (Lasix Injection -) 40 mg IVPUSH DAILY [facility] Last Admin: 11/10/17 09:10 Dose: Not Given Lisinopril (Prinivil) 10 mg PO DAILY [facility] Last Admin: 11/10/17 09:10 Dose: Not Given Methyl Salicylate (Alexy-Santos -) 1 applic TP BID [facility] Last Admin: 11/10/17 09:09 Dose: Not Given Methylprednisolone Sodium Succinate (Solu-Medrol -) 20 mg IVPUSH Q6H-IV [facility] Metoprolol Succinate (Toprol Xl -) 50 mg PO DAILY [facility] Last Admin: 11/10/17 09:10 Dose: Not Given Pantoprazole Sodium (Protonix -) 40 mg PO DAILY [facility] Last Admin: 11/10/17 09:10 Dose: Not Given Pregabalin (Lyrica -) 100 mg PO TID [facility] Last Admin: 11/10/17 05:45 Dose: 100 mg Rivaroxaban (Xarelto -) 20 mg PO DAILY@1800 [facility] Last Admin: 11/09/17 18:06 Dose: 20 mg Tamsulosin HCl (Flomax -) 0.4 mg PO DAILY@0830 [facility] Last Admin: 11/10/17 08:52 Dose: 0.4 mg - Objective Vital Signs: Vital Signs Temperature 97.8 F 11/10/17 08:09 Pulse Rate 73 11/10/17 08:09 Respiratory Rate 18 11/10/17 08:09 Blood Pressure 144/93 11/10/17 08:09 O2 Sat by Pulse Oximetry (%) 90 L 11/10/17 09:00 Constitutional: Yes: No Distress, Calm Neck: Yes: Supple Cardiovascular: Yes: Regular Rate and Rhythm Respiratory: Yes: Regular, Diminished, On Nasal O2 Gastrointestinal: Yes: Normal Bowel Sounds, Soft Edema: No Labs: CBC, BMP 11/09/17 07:00 11/10/17 07:00 Assessment/Plan - Problems (1) COPD (chronic obstructive pulmonary disease) Code(s): J44.9 - CHRONIC OBSTRUCTIVE PULMONARY DISEASE, UNSPECIFIED Qualifiers: COPD type: COPD with acute exacerbation Qualified Code(s): J44.1 - Chronic obstructive pulmonary disease with (acute) exacerbation (2) COPD exacerbation Code(s): J44.1 - CHRONIC OBSTRUCTIVE PULMONARY DISEASE W (ACUTE) EXACERBATION (3) History of aortic aneurysm repair Code(s): Z98.890 - OTHER SPECIFIED POSTPROCEDURAL STATES; Z86.79 - PERSONAL HISTORY OF OTHER DISEASES OF THE CIRCULATORY SYSTEM (4) History of arterial bypass of lower extremity Code(s): Z95.828 - PRESENCE OF OTHER VASCULAR IMPLANTS AND GRAFTS (5) PAD (peripheral artery disease) Code(s): I73.9 - PERIPHERAL VASCULAR DISEASE, UNSPECIFIED (6) Afib Code(s): I48.91 - UNSPECIFIED ATRIAL FIBRILLATION Qualifiers: Atrial fibrillation type: chronic Qualified Code(s): I48.2 - Chronic atrial fibrillation (7) CAD (coronary artery disease) Code(s): I25.10 - ATHSCL HEART DISEASE OF [place] CORONARY ARTERY W/O ANG PCTRS Qualifiers: Coronary Disease-Associated Artery/Lesion type: [place] artery (8) History of permanent cardiac pacemaker placement Code(s): Z95.0 - PRESENCE OF CARDIAC PACEMAKER (9) Hx of CABG Code(s): Z95.1 - PRESENCE OF AORTOCORONARY BYPASS GRAFT Assessment/Plan IMP: 1. CAD s/p CABG s/p stents 2. ICM w/p RADIATOR FITTER-D (refused ICD) with improvement in LVEF 3. Permanent AF on Xarelto 4. Extensive PAD 5. Multiple aneurysms: thoracic, abdominal and right internal iliac under Vascular surveillance 6. Acute on chronic hypoxemic respiratory failure referable to acute exacerbation of COPD 7. HTN 8. Hyperlipidemia REC: 1. IV steroids with GI protection, BD, abx, NIPPV, O2 as needed. 2. Continue Xarelto 20 qd and other home cardiac meds: Lisinopril 10/Lasix 20/ Lovastatin 40 or equivalent/Toprol XL 50. 3. Diuresis as tolerated 4. Has regular outpt. Vascular f/u with Dr. Paniagua 5. Routine office PPM interrogations. 6. OOB to chair
--- NOTE | 2017-11-10 15:34 | PN ---
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 (short form) - Note 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: michael prob prerenal from decompensated hf decompensated hf copd clinically much improved Plan hydrate cautiously follow renal profile
[2017-11-10] MEDS: RIVAROXABAN 20 MG TABLET PO SCH (19:00)
[2017-11-10] MEDS: ATORVASTATIN CA 20 MG TABLET (FP) PO SCH (21:06)
[2017-11-11] MEDS: methylPREDNISolone NA SUCC 40 MG/1 ML VIAL IVPUSH SCH ×3 (02:19→22:04)
[2017-11-11] MEDS: PREGABALIN 100 MG CAPSULE PO SCH ×3 (06:04→22:05)
[2017-11-11] MEDS: ALBUTEROL SO4 2.5/IPRATROPIUM 0.5 INH SOL 3 ML VIAL.NEB. NEB SCH ×4 (07:27→19:16)
[2017-11-11] MEDS: TAMSULOSIN HCL 0.4 MG CAP.ER.24H (FP) PO SCH (08:55)
[2017-11-11] MEDS: FUROSEMIDE 40 MG/4 ML INJECTABLE VIAL IVPUSH SCH (09:15)
[2017-11-11] MEDS: DULoxetine HCL 30 MG CAPSULE.DR (FP) PO SCH (09:16)
[2017-11-11] MEDS: METHYL SALICYLATE/MENTHOL OINT 30 GM TUBE TP SCH ×2 (09:16→22:06)
[2017-11-11] MEDS: LISINOPRIL 10 MG TABLET (FP) PO SCH (09:16)
[2017-11-11] MEDS: FLUOCINONIDE 0.05% CREAM (15 GM TUBE) TP SCH ×2 (09:17→22:06)
[2017-11-11] MEDS: PANTOPRAZOLE 40 MG TABLET (FP) PO SCH (09:17)
--- NOTE | 2017-11-11 09:38 | PN ---
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, Physician Chief Complaint: Cardiology f/u with Dr. Hines History of Present Illness: Dyspnea, cough, wheezing improving. - Current Medication List Current Medications: Active Medications Acetaminophen (Tylenol -) 650 mg PO Q6H PRN PRN Reason: PAIN OR FEVER Last Admin: 11/09/17 06:21 Dose: 650 mg Albuterol/Ipratropium (Duoneb -) 1 amp NEB RQID [facility] Last Admin: 11/11/17 07:27 Dose: 1 amp Atorvastatin Calcium (Lipitor -) 20 mg PO HS [facility] Last Admin: 11/10/17 21:06 Dose: 20 mg Duloxetine HCl (Cymbalta -) 60 mg PO DAILY [facility] Last Admin: 11/11/17 09:16 Dose: 60 mg Fluocinonide (Lidex 0.05% Cream -) 1 applic TP BID [facility] Last Admin: 11/11/17 09:17 Dose: Not Given Furosemide (Lasix Injection -) 40 mg IVPUSH DAILY [facility] Last Admin: 11/11/17 09:15 Dose: 40 mg Lisinopril (Prinivil) 10 mg PO DAILY [facility] Last Admin: 11/11/17 09:16 Dose: 10 mg Methyl Salicylate (Alexy-Santos -) 1 applic TP BID [facility] Last Admin: 11/11/17 09:16 Dose: Not Given Methylprednisolone Sodium Succinate (Solu-Medrol -) 20 mg IVPUSH Q6H-IV [facility] Last Admin: 11/11/17 09:15 Dose: 20 mg Metoprolol Succinate (Toprol Xl -) 50 mg PO DAILY [facility] Last Admin: 11/11/17 09:17 Dose: 50 mg Pantoprazole Sodium (Protonix -) 40 mg PO DAILY [facility] Last Admin: 11/11/17 09:17 Dose: 40 mg Pregabalin (Lyrica -) 100 mg PO TID [facility] Last Admin: 11/11/17 06:04 Dose: 100 mg Rivaroxaban (Xarelto -) 20 mg PO DAILY@1800 [facility] Last Admin: 11/10/17 19:00 Dose: 20 mg Tamsulosin HCl (Flomax -) 0.4 mg PO DAILY@0830 [facility] Last Admin: 11/11/17 08:55 Dose: 0.4 mg - Objective Vital Signs: Vital Signs Temperature 97.5 F L 11/11/17 06:00 Pulse Rate 77 11/11/17 06:00 Respiratory Rate 18 11/11/17 06:00 Blood Pressure 125/77 11/11/17 06:00 O2 Sat by Pulse Oximetry (%) 91 L 11/10/17 21:00 Constitutional: Yes: No Distress, Calm Neck: Yes: Supple Cardiovascular: Yes: Regular Rate and Rhythm Respiratory: Yes: Regular, Diminished, On Nasal O2 Gastrointestinal: Yes: Normal Bowel Sounds, Soft Edema: No Labs: CBC, BMP 11/09/17 07:00 11/10/17 07:00 Assessment/Plan - Problems (1) COPD (chronic obstructive pulmonary disease) Code(s): J44.9 - CHRONIC OBSTRUCTIVE PULMONARY DISEASE, UNSPECIFIED Qualifiers: COPD type: COPD with acute exacerbation Qualified Code(s): J44.1 - Chronic obstructive pulmonary disease with (acute) exacerbation (2) COPD exacerbation Code(s): J44.1 - CHRONIC OBSTRUCTIVE PULMONARY DISEASE W (ACUTE) EXACERBATION (3) History of aortic aneurysm repair Code(s): Z98.890 - OTHER SPECIFIED POSTPROCEDURAL STATES; Z86.79 - PERSONAL HISTORY OF OTHER DISEASES OF THE CIRCULATORY SYSTEM (4) History of arterial bypass of lower extremity Code(s): Z95.828 - PRESENCE OF OTHER VASCULAR IMPLANTS AND GRAFTS (5) PAD (peripheral artery disease) Code(s): I73.9 - PERIPHERAL VASCULAR DISEASE, UNSPECIFIED (6) Afib Code(s): I48.91 - UNSPECIFIED ATRIAL FIBRILLATION Qualifiers: Atrial fibrillation type: chronic Qualified Code(s): I48.2 - Chronic atrial fibrillation (7) CAD (coronary artery disease) Code(s): I25.10 - ATHSCL HEART DISEASE OF [place] CORONARY ARTERY W/O ANG PCTRS Qualifiers: Coronary Disease-Associated Artery/Lesion type: [place] artery (8) History of permanent cardiac pacemaker placement Code(s): Z95.0 - PRESENCE OF CARDIAC PACEMAKER (9) Hx of CABG Code(s): Z95.1 - PRESENCE OF AORTOCORONARY BYPASS GRAFT Assessment/Plan IMP: 1. CAD s/p CABG s/p stents 2. ICM w/p TREE FELLER-D (refused ICD) with improvement in LVEF 3. Permanent AF on Xarelto 4. Extensive PAD 5. Multiple aneurysms: thoracic, abdominal and right internal iliac under Vascular surveillance 6. Acute on chronic hypoxemic respiratory failure referable to acute exacerbation of COPD 7. HTN 8. Hyperlipidemia REC: 1. IV steroids with GI protection, BD, abx, NIPPV, O2 as needed. 2. Continue Xarelto 20 qd and other home cardiac meds: Lisinopril 10/Lasix 20/ Lovastatin 40 or equivalent/Toprol XL 50. 3. Resume home oral diuretics as tolerated 4. Has regular outpt. Vascular f/u with Dr. Paniagua 5. Routine office PPM interrogations. 6. OOB to chair
--- NOTE | 2017-11-11 10:18 | PN ---
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, Physician - Current Medication List Current Medications: Active Medications Acetaminophen (Tylenol -) 650 mg PO Q6H PRN PRN Reason: PAIN OR FEVER Last Admin: 11/09/17 06:21 Dose: 650 mg Albuterol/Ipratropium (Duoneb -) 1 amp NEB RQID [facility] Last Admin: 11/11/17 07:27 Dose: 1 amp Atorvastatin Calcium (Lipitor -) 20 mg PO HS [facility] Last Admin: 11/10/17 21:06 Dose: 20 mg Duloxetine HCl (Cymbalta -) 60 mg PO DAILY [facility] Last Admin: 11/11/17 09:16 Dose: 60 mg Fluocinonide (Lidex 0.05% Cream -) 1 applic TP BID [facility] Last Admin: 11/11/17 09:17 Dose: Not Given Furosemide (Lasix Injection -) 40 mg IVPUSH DAILY [facility] Last Admin: 11/11/17 09:15 Dose: 40 mg Lisinopril (Prinivil) 10 mg PO DAILY [facility] Last Admin: 11/11/17 09:16 Dose: 10 mg Methyl Salicylate (Alexy-Santos -) 1 applic TP BID [facility] Last Admin: 11/11/17 09:16 Dose: Not Given Methylprednisolone Sodium Succinate (Solu-Medrol -) 20 mg IVPUSH Q6H-IV [facility] Last Admin: 11/11/17 09:15 Dose: 20 mg Metoprolol Succinate (Toprol Xl -) 50 mg PO DAILY [facility] Last Admin: 11/11/17 09:17 Dose: 50 mg Pantoprazole Sodium (Protonix -) 40 mg PO DAILY [facility] Last Admin: 11/11/17 09:17 Dose: 40 mg Pregabalin (Lyrica -) 100 mg PO TID [facility] Last Admin: 11/11/17 06:04 Dose: 100 mg Rivaroxaban (Xarelto -) 20 mg PO DAILY@1800 [facility] Last Admin: 11/10/17 19:00 Dose: 20 mg Tamsulosin HCl (Flomax -) 0.4 mg PO DAILY@0830 [facility] Last Admin: 11/11/17 08:55 Dose: 0.4 mg - Objective Vital Signs: Vital Signs Temperature 98 F 11/11/17 09:00 Pulse Rate 76 11/11/17 09:00 Respiratory Rate 20 11/11/17 09:00 Blood Pressure 120/80 11/11/17 09:00 O2 Sat by Pulse Oximetry (%) 91 L 11/10/17 21:00 Cardiovascular: Yes: S1, S2 Respiratory: Yes: On Nasal O2, Rhonchi Gastrointestinal: Yes: Normal Bowel Sounds, Soft Labs: CBC, BMP 11/09/17 07:00 11/10/17 07:00 Problem List - Problems (1) COPD exacerbation Assessment/Plan: IV STEROIDS NEBS OXYGEN AB Code(s): J44.1 - CHRONIC OBSTRUCTIVE PULMONARY DISEASE W (ACUTE) EXACERBATION (2) CHF (congestive heart failure) Assessment/Plan: -IV LASIX Code(s): I50.9 - HEART FAILURE, UNSPECIFIED (3) CAD (coronary artery disease) Assessment/Plan: NO CP MONITOR Code(s): I25.10 - ATHSCL HEART DISEASE OF [place] CORONARY ARTERY W/O ANG PCTRS Qualifiers: Coronary Disease-Associated Artery/Lesion type: [place] artery Associated angina: with stable angina
--- NOTE | 2017-11-11 10:41 | PN ---
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, Physician Chief Complaint: Cardiology f/u with Dr. Hines History of Present Illness: Dyspnea, cough, wheezing resolving. - Current Medication List Current Medications: Active Medications Acetaminophen (Tylenol -) 650 mg PO Q6H PRN PRN Reason: PAIN OR FEVER Last Admin: 11/09/17 06:21 Dose: 650 mg Albuterol/Ipratropium (Duoneb -) 1 amp NEB RQID [facility] Last Admin: 11/11/17 07:27 Dose: 1 amp Atorvastatin Calcium (Lipitor -) 20 mg PO HS [facility] Last Admin: 11/10/17 21:06 Dose: 20 mg Duloxetine HCl (Cymbalta -) 60 mg PO DAILY [facility] Last Admin: 11/11/17 09:16 Dose: 60 mg Fluocinonide (Lidex 0.05% Cream -) 1 applic TP BID [facility] Last Admin: 11/11/17 09:17 Dose: Not Given Furosemide (Lasix Injection -) 40 mg IVPUSH DAILY [facility] Last Admin: 11/11/17 09:15 Dose: 40 mg Lisinopril (Prinivil) 10 mg PO DAILY [facility] Last Admin: 11/11/17 09:16 Dose: 10 mg Methyl Salicylate (Alexy-Santos -) 1 applic TP BID [facility] Last Admin: 11/11/17 09:16 Dose: Not Given Methylprednisolone Sodium Succinate (Solu-Medrol -) 20 mg IVPUSH BID [facility] Metoprolol Succinate (Toprol Xl -) 50 mg PO DAILY [facility] Last Admin: 11/11/17 09:17 Dose: 50 mg Pantoprazole Sodium (Protonix -) 40 mg PO DAILY [facility] Last Admin: 11/11/17 09:17 Dose: 40 mg Pregabalin (Lyrica -) 100 mg PO TID [facility] Last Admin: 11/11/17 06:04 Dose: 100 mg Rivaroxaban (Xarelto -) 20 mg PO DAILY@1800 [facility] Last Admin: 11/10/17 19:00 Dose: 20 mg Tamsulosin HCl (Flomax -) 0.4 mg PO DAILY@0830 [facility] Last Admin: 11/11/17 08:55 Dose: 0.4 mg - Objective Vital Signs: Vital Signs Temperature 98 F 11/11/17 09:00 Pulse Rate 76 11/11/17 09:00 Respiratory Rate 20 11/11/17 09:00 Blood Pressure 120/80 11/11/17 09:00 O2 Sat by Pulse Oximetry (%) 91 L 11/10/17 21:00 Constitutional: Yes: No Distress, Calm Neck: Yes: Supple Cardiovascular: Yes: Regular Rate and Rhythm Respiratory: Yes: Regular, CTA Bilaterally, On Nasal O2 Gastrointestinal: Yes: Normal Bowel Sounds, Soft Edema: No Labs: CBC, BMP 11/09/17 07:00 11/10/17 07:00 - ....Imaging EKG: Report Reviewed (Tele: Afib v-paced) Assessment/Plan - Problems (1) COPD (chronic obstructive pulmonary disease) Code(s): J44.9 - CHRONIC OBSTRUCTIVE PULMONARY DISEASE, UNSPECIFIED Qualifiers: COPD type: COPD with acute exacerbation Qualified Code(s): J44.1 - Chronic obstructive pulmonary disease with (acute) exacerbation (2) COPD exacerbation Code(s): J44.1 - CHRONIC OBSTRUCTIVE PULMONARY DISEASE W (ACUTE) EXACERBATION (3) History of aortic aneurysm repair Code(s): Z98.890 - OTHER SPECIFIED POSTPROCEDURAL STATES; Z86.79 - PERSONAL HISTORY OF OTHER DISEASES OF THE CIRCULATORY SYSTEM (4) History of arterial bypass of lower extremity Code(s): Z95.828 - PRESENCE OF OTHER VASCULAR IMPLANTS AND GRAFTS (5) PAD (peripheral artery disease) Code(s): I73.9 - PERIPHERAL VASCULAR DISEASE, UNSPECIFIED (6) Afib Code(s): I48.91 - UNSPECIFIED ATRIAL FIBRILLATION Qualifiers: Atrial fibrillation type: chronic Qualified Code(s): I48.2 - Chronic atrial fibrillation (7) CAD (coronary artery disease) Code(s): I25.10 - ATHSCL HEART DISEASE OF [place] CORONARY ARTERY W/O ANG PCTRS Qualifiers: Coronary Disease-Associated Artery/Lesion type: [place] artery (8) History of permanent cardiac pacemaker placement Code(s): Z95.0 - PRESENCE OF CARDIAC PACEMAKER (9) Hx of CABG Code(s): Z95.1 - PRESENCE OF AORTOCORONARY BYPASS GRAFT Assessment/Plan IMP: 1. CAD s/p CABG s/p stents 2. ICM w/p INTERNET MARKETING STRATEGIST-D (refused ICD) with improvement in LVEF 3. Permanent AF on Xarelto 4. Extensive PAD 5. Multiple aneurysms: thoracic, abdominal and right internal iliac under Vascular surveillance 6. Acute on chronic hypoxemic respiratory failure referable to acute exacerbation of COPD 7. HTN 8. Hyperlipidemia REC: 1. Steroid taper with GI protection, BD, abx, NIPPV, O2 as needed. 2. Continue Xarelto 20 qd and other home cardiac meds: Lisinopril 10/Lasix 20/ Lovastatin 40 or equivalent/Toprol XL 50. 3. Resume oral diuresis - home dose 4. Has regular outpt. Vascular f/u with Dr. Paniagua 5. Routine office PPM interrogations. 6. OOB to chair, d/c planning
--- NOTE | 2017-11-11 13:42 | PN ---
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, Physician History of Present Illness: pulmonary alert ,feeling better on nasal cannula,-cp - Current Medication List Current Medications: Active Medications Acetaminophen (Tylenol -) 650 mg PO Q6H PRN PRN Reason: PAIN OR FEVER Last Admin: 11/09/17 06:21 Dose: 650 mg Albuterol/Ipratropium (Duoneb -) 1 amp NEB RQID [facility] Last Admin: 11/11/17 11:04 Dose: 1 amp Atorvastatin Calcium (Lipitor -) 20 mg PO HS [facility] Last Admin: 11/10/17 21:06 Dose: 20 mg Duloxetine HCl (Cymbalta -) 60 mg PO DAILY [facility] Last Admin: 11/11/17 09:16 Dose: 60 mg Fluocinonide (Lidex 0.05% Cream -) 1 applic TP BID [facility] Last Admin: 11/11/17 09:17 Dose: Not Given Furosemide (Lasix Injection -) 40 mg IVPUSH DAILY [facility] Last Admin: 11/11/17 09:15 Dose: 40 mg Lisinopril (Prinivil) 10 mg PO DAILY [facility] Last Admin: 11/11/17 09:16 Dose: 10 mg Methyl Salicylate (Alexy-Santos -) 1 applic TP BID [facility] Last Admin: 11/11/17 09:16 Dose: Not Given Methylprednisolone Sodium Succinate (Solu-Medrol -) 20 mg IVPUSH BID [facility] Metoprolol Succinate (Toprol Xl -) 50 mg PO DAILY [facility] Last Admin: 11/11/17 09:17 Dose: 50 mg Pantoprazole Sodium (Protonix -) 40 mg PO DAILY [facility] Last Admin: 11/11/17 09:17 Dose: 40 mg Pregabalin (Lyrica -) 100 mg PO TID [facility] Last Admin: 11/11/17 06:04 Dose: 100 mg Rivaroxaban (Xarelto -) 20 mg PO DAILY@1800 [facility] Last Admin: 11/10/17 19:00 Dose: 20 mg Tamsulosin HCl (Flomax -) 0.4 mg PO DAILY@0830 [facility] Last Admin: 11/11/17 08:55 Dose: 0.4 mg - Objective Vital Signs: Vital Signs Temperature 98 F 11/11/17 09:00 Pulse Rate 76 11/11/17 09:00 Respiratory Rate 20 11/11/17 09:00 Blood Pressure 120/80 11/11/17 09:00 O2 Sat by Pulse Oximetry (%) 92 L 11/11/17 09:00 Constitutional: Yes: Well Nourished, Calm Eyes: Yes: WNL HENT: Yes: WNL Neck: Yes: WNL Cardiovascular: Yes: Pulse Irregular, S1, S2 Respiratory: Yes: Rales (few bibasilar rales) Gastrointestinal: Yes: Normal Bowel Sounds, Soft Extremities: Yes: WNL Edema: No Labs: CBC, BMP Problem List - Problems (1) Acute and chronic respiratory failure with hypoxia Code(s): J96.21 - ACUTE AND CHRONIC RESPIRATORY FAILURE WITH HYPOXIA (2) COPD (chronic obstructive pulmonary disease) Code(s): J44.9 - CHRONIC OBSTRUCTIVE PULMONARY DISEASE, UNSPECIFIED Qualifiers: COPD type: COPD with acute exacerbation Qualified Code(s): J44.1 - Chronic obstructive pulmonary disease with (acute) exacerbation (3) COPD exacerbation Code(s): J44.1 - CHRONIC OBSTRUCTIVE PULMONARY DISEASE W (ACUTE) EXACERBATION (4) History of arterial bypass of lower extremity Code(s): Z95.828 - PRESENCE OF OTHER VASCULAR IMPLANTS AND GRAFTS (5) Old cerebrovascular accident (CVA) without late effect Code(s): Z86.73 - PRSNL HX OF TIA (TIA), AND CEREB INFRC W/O RESID DEFICITS (6) PAD (peripheral artery disease) Code(s): I73.9 - PERIPHERAL VASCULAR DISEASE, UNSPECIFIED (7) SOB (shortness of breath) Code(s): R06.02 - SHORTNESS OF BREATH (8) Afib Code(s): I48.91 - UNSPECIFIED ATRIAL FIBRILLATION Qualifiers: Atrial fibrillation type: chronic Qualified Code(s): I48.2 - Chronic atrial fibrillation (9) CAD (coronary artery disease) Code(s): I25.10 - ATHSCL HEART DISEASE OF [place] CORONARY ARTERY W/O ANG PCTRS Qualifiers: Coronary Disease-Associated Artery/Lesion type: [place] artery (10) Hx of CABG Code(s): Z95.1 - PRESENCE OF AORTOCORONARY BYPASS GRAFT (11) Hyperlipidemia Code(s): E78.5 - HYPERLIPIDEMIA, UNSPECIFIED Qualifiers: (12) Hypertension Code(s): I10 - ESSENTIAL (PRIMARY) HYPERTENSION Qualifiers: Hypertension type: essential hypertension Qualified Code(s): I10 - Essential (primary) hypertension (13) Peripheral artery disease Code(s): I73.9 - PERIPHERAL VASCULAR DISEASE, UNSPECIFIED Assessment/Plan IMP ACUTE ON CHRONIC HYPOXEMIC RESPIRATORY FAILURE IMPROVING LIKELY URI COPD O2 DEPENDENT ASHD S/P CABG,S/P STENTS PVD CHF AFIB HTN PLAN STEROID TAPER INHALED BRONCHODILATORS NIPPV NEEDED O2 LASIX AC F/U CHEST X-RAYS DR JEFFERSON Problem List - Problems (1) Acute and chronic respiratory failure with hypoxia Code(s): J96.21 - ACUTE AND CHRONIC RESPIRATORY FAILURE WITH HYPOXIA (2) COPD (chronic obstructive pulmonary disease) Code(s): J44.9 - CHRONIC OBSTRUCTIVE PULMONARY DISEASE, UNSPECIFIED Qualifiers: COPD type: COPD with acute exacerbation Qualified Code(s): J44.1 - Chronic obstructive pulmonary disease with (acute) exacerbation (3) COPD exacerbation Code(s): J44.1 - CHRONIC OBSTRUCTIVE PULMONARY DISEASE W (ACUTE) EXACERBATION (4) History of arterial bypass of lower extremity Code(s): Z95.828 - PRESENCE OF OTHER VASCULAR IMPLANTS AND GRAFTS (5) Old cerebrovascular accident (CVA) without late effect Code(s): Z86.73 - PRSNL HX OF TIA (TIA), AND CEREB INFRC W/O RESID DEFICITS (6) PAD (peripheral artery disease) Code(s): I73.9 - PERIPHERAL VASCULAR DISEASE, UNSPECIFIED (7) SOB (shortness of breath) Code(s): R06.02 - SHORTNESS OF BREATH (8) Afib Code(s): I48.91 - UNSPECIFIED ATRIAL FIBRILLATION Qualifiers: Atrial fibrillation type: chronic Qualified Code(s): I48.2 - Chronic atrial fibrillation (9) CAD (coronary artery disease) Code(s): I25.10 - ATHSCL HEART DISEASE OF [place] CORONARY ARTERY W/O ANG PCTRS Qualifiers: Coronary Disease-Associated Artery/Lesion type: [place] artery (10) Hx of CABG Code(s): Z95.1 - PRESENCE OF AORTOCORONARY BYPASS GRAFT (11) Hyperlipidemia Code(s): E78.5 - HYPERLIPIDEMIA, UNSPECIFIED Qualifiers: (12) Hypertension Code(s): I10 - ESSENTIAL (PRIMARY) HYPERTENSION Qualifiers: Hypertension type: essential hypertension Qualified Code(s): I10 - Essential (primary) hypertension (13) Peripheral artery disease Code(s): I73.9 - PERIPHERAL VASCULAR DISEASE, UNSPECIFIED
--- NOTE | 2017-11-11 15:01 | PN ---
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, Physician History of Present Illness: Pt seen and examined at bedside. He feels that his breathing is improving. He denies chest pain. - Current Medication List Current Medications: Active Medications Acetaminophen (Tylenol -) 650 mg PO Q6H PRN PRN Reason: PAIN OR FEVER Last Admin: 11/09/17 06:21 Dose: 650 mg Albuterol/Ipratropium (Duoneb -) 1 amp NEB RQID [facility] Last Admin: 11/11/17 11:04 Dose: 1 amp Atorvastatin Calcium (Lipitor -) 20 mg PO HS [facility] Last Admin: 11/10/17 21:06 Dose: 20 mg Duloxetine HCl (Cymbalta -) 60 mg PO DAILY [facility] Last Admin: 11/11/17 09:16 Dose: 60 mg Fluocinonide (Lidex 0.05% Cream -) 1 applic TP BID [facility] Last Admin: 11/11/17 09:17 Dose: Not Given Furosemide (Lasix Injection -) 40 mg IVPUSH DAILY [facility] Last Admin: 11/11/17 09:15 Dose: 40 mg Lisinopril (Prinivil) 10 mg PO DAILY [facility] Last Admin: 11/11/17 09:16 Dose: 10 mg Methyl Salicylate (Alexy-Santos -) 1 applic TP BID [facility] Last Admin: 11/11/17 09:16 Dose: Not Given Methylprednisolone Sodium Succinate (Solu-Medrol -) 20 mg IVPUSH BID [facility] Metoprolol Succinate (Toprol Xl -) 50 mg PO DAILY [facility] Last Admin: 11/11/17 09:17 Dose: 50 mg Pantoprazole Sodium (Protonix -) 40 mg PO DAILY [facility] Last Admin: 11/11/17 09:17 Dose: 40 mg Pregabalin (Lyrica -) 100 mg PO TID [facility] Last Admin: 11/11/17 13:51 Dose: 100 mg Rivaroxaban (Xarelto -) 20 mg PO DAILY@1800 [facility] Last Admin: 11/10/17 19:00 Dose: 20 mg Tamsulosin HCl (Flomax -) 0.4 mg PO DAILY@0830 [facility] Last Admin: 11/11/17 08:55 Dose: 0.4 mg - Objective Vital Signs: Vital Signs Temperature 98.2 F 11/11/17 14:33 Pulse Rate 81 11/11/17 14:33 Respiratory Rate 20 08/20/18 14:33 Blood Pressure 123/76 08/20/18 14:33 O2 Sat by Pulse Oximetry (%) 92 L 11/11/17 09:00 Constitutional: Yes: Calm Eyes: Yes: Conjunctiva Clear HENT: Yes: Atraumatic Neck: Yes: Supple Cardiovascular: Yes: S1, S2 Respiratory: Yes: On Nasal O2, Wheezes Gastrointestinal: Yes: Soft Genitourinary: Yes: WNL Musculoskeletal: Yes: WNL Edema: Yes Edema: LLE: 1+, RLE: 1+ Neurological: Yes: Oriented Psychiatric: Yes: Oriented Labs: CBC, BMP 11/09/17 07:00 11/10/17 07:00 Problem List - Problems (1) Acute and chronic respiratory failure with hypoxia Code(s): J96.21 - ACUTE AND CHRONIC RESPIRATORY FAILURE WITH HYPOXIA (2) CHF (congestive heart failure) Code(s): I50.9 - HEART FAILURE, UNSPECIFIED (3) COPD exacerbation Code(s): J44.1 - CHRONIC OBSTRUCTIVE PULMONARY DISEASE W (ACUTE) EXACERBATION (4) Azotemia Code(s): R79.89 - OTHER SPECIFIED ABNORMAL FINDINGS OF BLOOD CHEMISTRY (5) CAD (coronary artery disease) Code(s): I25.10 - ATHSCL HEART DISEASE OF [place] CORONARY ARTERY W/O ANG PCTRS Qualifiers: Coronary Disease-Associated Artery/Lesion type: [place] artery Associated angina: with stable angina Assessment/Plan Current Medications Generic Name Dose Route Start Last Admin Trade Name Freq PRN Reason Stop Dose Admin Acetaminophen 650 mg 11/08/17 17:24 11/09/17 06:21 Tylenol - PO 650 mg Q6H PRN Administration PAIN OR FEVER Albuterol/Ipratropium 1 amp 11/08/17 16:00 11/11/17 11:04 Duoneb - NEB 1 amp RQID [facility] Administration Atorvastatin Calcium 20 mg 11/08/17 22:00 11/10/17 21:06 Lipitor - PO 20 mg HS [facility] Administration Duloxetine HCl 60 mg 11/09/17 10:00 11/11/17 09:16 Cymbalta - PO 60 mg DAILY [facility] Administration Fluocinonide 1 applic 11/08/17 22:00 11/11/17 09:17 Lidex 0.05% Cream - TP Not Given BID [facility] Furosemide 40 mg 11/09/17 14:00 11/11/17 09:15 Lasix Injection - IVPUSH 40 mg DAILY [facility] Administration Lisinopril 10 mg 11/08/17 10:15 11/11/17 09:16 Prinivil PO 10 mg DAILY [facility] Administration Methyl Salicylate 1 applic 11/08/17 22:00 11/11/17 09:16 Alexy-Santos - TP Not Given BID [facility] Methylprednisolone Sodium Succinate 20 mg 11/11/17 22:00 Solu-Medrol - IVPUSH BID [facility] Metoprolol Succinate 50 mg 11/08/17 10:30 11/11/17 09:17 Toprol Xl - PO 50 mg DAILY [facility] Administration Pantoprazole Sodium 40 mg 11/09/17 10:00 11/11/17 09:17 Protonix - PO 40 mg DAILY [facility] Administration Pregabalin 100 mg 11/08/17 15:15 11/11/17 13:51 Lyrica - PO 100 mg TID [facility] Administration Rivaroxaban 20 mg 11/08/17 18:00 11/10/17 19:00 Xarelto - PO 20 mg DAILY@1800 [facility] Administration Tamsulosin HCl 0.4 mg 11/09/17 08:30 11/11/17 08:55 Flomax - PO 0.4 mg DAILY@0830 [facility] Administration Impression 1. CKD 2. COPD exacerbation 3. AAA 4. hx CVA 5. a-fib 6. HTN 7. insomnia 8. hypoxic resp failure 9. CAD 10. BPH 12. microscopic hematuria Plan - renal function is stabilizing - cont lasix - can keep on steve - monitor pulse ox - cont oxygen - discussed with pt and his
[2017-11-11] MEDS: RIVAROXABAN 20 MG TABLET PO SCH (17:07)
[2017-11-11] MEDS: ATORVASTATIN CA 20 MG TABLET (FP) PO SCH (22:04)
[2017-11-11] MEDS: ACETAMINOPHEN 325 MG TABLET (FP) PO PRN (22:04)
[2017-11-12] MEDS: PREGABALIN 100 MG CAPSULE PO SCH ×3 (06:59→21:11)
[2017-11-12] MEDS: ALBUTEROL SO4 2.5/IPRATROPIUM 0.5 INH SOL 3 ML VIAL.NEB. NEB SCH ×4 (08:03→19:35)
--- NOTE | 2017-11-12 08:20 | PN ---
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 (short form) - Note 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: Chief Complaint: Events noted, notes reviewed, denies any chest pain, dyspnea persists but improving History of Present Illness: Seen and examined on telemetry. Events noted, notes reviewed, denies any chest pain, dyspnea persists but improving Coverage for Dr. Lori Hines Medications: Current Medications Acetaminophen (Tylenol -) 650 mg PO Q6H PRN PRN Reason: PAIN OR FEVER Last Admin: 11/11/17 22:04 Dose: 650 mg Albuterol/Ipratropium (Duoneb -) 1 amp NEB RQID [facility] Last Admin: 11/12/17 08:03 Dose: 1 amp Atorvastatin Calcium (Lipitor -) 20 mg PO HS [facility] Last Admin: 11/11/17 22:04 Dose: 20 mg Duloxetine HCl (Cymbalta -) 60 mg PO DAILY [facility] Last Admin: 11/11/17 09:16 Dose: 60 mg Fluocinonide (Lidex 0.05% Cream -) 1 applic TP BID [facility] Last Admin: 11/11/17 22:06 Dose: 1 applic Furosemide (Lasix Injection -) 40 mg IVPUSH DAILY [facility] Last Admin: 11/11/17 09:15 Dose: 40 mg Lisinopril (Prinivil) 10 mg PO DAILY [facility] Last Admin: 11/11/17 09:16 Dose: 10 mg Methyl Salicylate (Alexy-Santos -) 1 applic TP BID [facility] Last Admin: 11/11/17 22:06 Dose: 1 applic Methylprednisolone Sodium Succinate (Solu-Medrol -) 20 mg IVPUSH BID [facility] Last Admin: 11/11/17 22:04 Dose: 20 mg Metoprolol Succinate (Toprol Xl -) 50 mg PO DAILY [facility] Last Admin: 11/11/17 09:17 Dose: 50 mg Pantoprazole Sodium (Protonix -) 40 mg PO DAILY [facility] Last Admin: 11/11/17 09:17 Dose: 40 mg Pregabalin (Lyrica -) 100 mg PO TID [facility] Last Admin: 11/12/17 06:59 Dose: 100 mg Rivaroxaban (Xarelto -) 20 mg PO DAILY@1800 [facility] Last Admin: 11/11/17 17:07 Dose: 20 mg Tamsulosin HCl (Flomax -) 0.4 mg PO DAILY@0830 [facility] Last Admin: 11/11/17 08:55 Dose: 0.4 mg Review of Systems - Review of Systems Constitutional: denies: Chills or Fever Cardiovascular: as noted above Gastrointestinal: denies: Nausea, Vomiting, Diarrhea, Constipation or Abdominal Pain Genitourinary: No symptoms reported Neurological: No symptoms reported Vital Signs: Last Vital Signs Temp Pulse Resp BP Pulse Ox 97.9 F 73 20 141/82 92 L 11/12/17 05:38 11/12/17 05:38 11/12/17 05:38 11/12/17 05:38 11/11/17 20:33 Intake & Output 11/09/17 11/10/17 11/11/17 11/12/17 23:59 23:59 23:59 23:59 Intake Total 710 740 530 100 Output Total 2200 1900 1500 400 Balance -1490 -1160 -970 -300 Weight 162 lb Neck: Supple Negative JVD No Bruit Respiratory: Diminished Breath Sounds at the Bases Bilateral Scattered Rhonchi Cardiovascular: S1 S2 Regular rate and Rhythm Gastrointestinal: Soft Benign Normal Bowel Sounds Ext: Negative Edema Labs: CBC, BMP 11/09/17 07:00 11/10/17 07:00 Assessment/Plan ASSESSMENT: 1. Acute on chronic hypoxemic respiratory failure referable to acute exacerbation of COPD, resolving 2. CAD post CABG post PCI/stents angina pectoris 3. 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 paroxysmal atrial fibrillation [id number] score of 5 on Xarelto 5. Advanced PAD 6. History of thoracic, abdominal and right internal iliac aneurysms 7. HTN 8. Hypercholesterolemia PLAN: 1. Continue Xarelto at 20 mg daily, if GFR remains below 50 dose to be decreased to 15 mg daily 2. Continue Toprol XL 3. Continue Lisinopril 4. Continue Lasix but switch to PO therapy 5. Steroids and bronchodilators as per the primary team Radha Holder M.D.
[2017-11-12] MEDS: DULoxetine HCL 30 MG CAPSULE.DR (FP) PO SCH (09:36)
[2017-11-12] MEDS: methylPREDNISolone NA SUCC 40 MG/1 ML VIAL IVPUSH SCH (09:37)
[2017-11-12] MEDS: TAMSULOSIN HCL 0.4 MG CAP.ER.24H (FP) PO SCH (09:37)
[2017-11-12] MEDS: PANTOPRAZOLE 40 MG TABLET (FP) PO SCH (09:37)
[2017-11-12] MEDS: LISINOPRIL 10 MG TABLET (FP) PO SCH (09:37)
[2017-11-12] MEDS: FLUOCINONIDE 0.05% CREAM (15 GM TUBE) TP SCH ×2 (09:39→21:11)
[2017-11-12] MEDS: METHYL SALICYLATE/MENTHOL OINT 30 GM TUBE TP SCH ×2 (09:40→21:11)
--- NOTE | 2017-11-12 09:53 | DS ---
Physical Examination Vital Signs: Vital Signs Temperature 97.9 F 11/12/17 05:38 Pulse Rate 73 11/12/17 05:38 Respiratory Rate 20 11/12/17 05:38 Blood Pressure 141/82 11/12/17 05:38 O2 Sat by Pulse Oximetry (%) 92 L 11/11/17 20:33 Cardiovascular: Yes: S1, S2 Respiratory: Yes: Diminished, On Nasal O2 Gastrointestinal: Yes: Normal Bowel Sounds, Soft Labs: CBC, BMP 11/09/17 07:00 11/10/17 07:00 Discharge Summary Reason For Visit: SHORTNESS OF BREATH Current Active Problems Acute and chronic respiratory failure with hypoxia (Acute) CHF (congestive heart failure) (Acute) COPD exacerbation (Acute) Condition: Fair - Instructions Diet, Activity, Other Instructions: Follow up with Dr rodriguez in one week to taper steroids Referrals: Alyssa Solomon [Primary Care Provider] - - Home Medications Comprehensive Discharge Medication List: Ambulatory Orders Albuterol 0.083% Nebulizer Suki [Ventolin 0.083% Nebulizer Soln -] 1 neb NEB QID 11/08/17 Aspirin [Ecotrin] 81 mg PO DAILY 11/08/17 Budesonide/Formeterol Fumarate [SYMBICORT 160/4.5mcg -] 1 inh PO BID 11/08/17 Duloxetine HCl [Cymbalta -] 60 mg PO DAILY 11/08/17 Ferrous Sulfate 325 mg PO DAILY 11/08/17 Fluocinonide 0.05% Cream [Lidex 0.05% Cream -] 1 applic TP DAILY 11/08/17 Furosemide 20 mg PO DAILY 11/08/17 Isosorbide Dinitrate [Isordil -] 20 mg PO BID 11/08/17 Lisinopril [Prinivil] 10 mg PO DAILY 11/08/17 Lovastatin 10 mg PO HS 11/08/17 Metoprolol Succinate 100 mg PO DAILY 11/08/17 Pantoprazole Sodium [Protonix] 40 mg PO DAILY 11/08/17 Pregabalin [Lyrica] 100 mg PO TID 11/08/17 Rivaroxaban [Xarelto -] 20 mg PO DAILY 11/08/17 Tamsulosin HCl [Flomax] 0.4 mg PO HS 11/08/17 Furosemide [Lasix -] 40 mg PO DAILY tablet 11/12/17 Metoprolol Succinate [Toprol XL -] 50 mg PO DAILY tab.sr.24h 11/12/17 predniSONE [Deltasone -] 10 mg PO ASDIR #50 tab 11/12/17
[2017-11-12] MEDS ORDERED: FUROSEMIDE 40 MG TABLET (FP) PO SCH (10:00)
--- NOTE | 2017-11-12 10:00 | PN ---
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, Physician History of Present Illness: pulmonary alert ,feeling better,less dyspneic - Current Medication List Current Medications: Active Medications Acetaminophen (Tylenol -) 650 mg PO Q6H PRN PRN Reason: PAIN OR FEVER Last Admin: 11/11/17 22:04 Dose: 650 mg Albuterol/Ipratropium (Duoneb -) 1 amp NEB RQID [facility] Last Admin: 11/12/17 08:03 Dose: 1 amp Atorvastatin Calcium (Lipitor -) 20 mg PO HS [facility] Last Admin: 11/11/17 22:04 Dose: 20 mg Duloxetine HCl (Cymbalta -) 60 mg PO DAILY [facility] Last Admin: 11/12/17 09:36 Dose: 60 mg Fluocinonide (Lidex 0.05% Cream -) 1 applic TP BID [facility] Last Admin: 11/12/17 09:39 Dose: 1 applic Furosemide (Lasix -) 40 mg PO DAILY [facility] Last Admin: 11/12/17 09:37 Dose: 40 mg Lisinopril (Prinivil) 10 mg PO DAILY [facility] Last Admin: 11/12/17 09:37 Dose: 10 mg Methyl Salicylate (Alexy-Santos -) 1 applic TP BID [facility] Last Admin: 11/12/17 09:40 Dose: 1 applic Metoprolol Succinate (Toprol Xl -) 50 mg PO DAILY [facility] Last Admin: 11/12/17 09:37 Dose: 50 mg Pantoprazole Sodium (Protonix -) 40 mg PO DAILY [facility] Last Admin: 11/12/17 09:37 Dose: 40 mg Prednisone (Deltasone -) 20 mg PO BID [facility] Pregabalin (Lyrica -) 100 mg PO TID [facility] Last Admin: 11/12/17 06:59 Dose: 100 mg Rivaroxaban (Xarelto -) 20 mg PO DAILY@1800 [facility] Last Admin: 11/11/17 17:07 Dose: 20 mg Tamsulosin HCl (Flomax -) 0.4 mg PO DAILY@0830 [facility] Last Admin: 11/12/17 09:37 Dose: 0.4 mg - Objective Vital Signs: Vital Signs Temperature 97.9 F 11/12/17 05:38 Pulse Rate 73 11/12/17 05:38 Respiratory Rate 20 11/12/17 05:38 Blood Pressure 141/82 11/12/17 05:38 O2 Sat by Pulse Oximetry (%) 92 L 11/11/17 20:33 Constitutional: Yes: Well Nourished, Calm Eyes: Yes: WNL HENT: Yes: WNL Neck: Yes: WNL Cardiovascular: Yes: Pulse Irregular, S1, S2 Respiratory: Yes: Diminished (few wheezes,rhonchi) Gastrointestinal: Yes: Normal Bowel Sounds, Soft Extremities: Yes: WNL Edema: No Problem List - Problems (1) Acute and chronic respiratory failure with hypoxia Code(s): J96.21 - ACUTE AND CHRONIC RESPIRATORY FAILURE WITH HYPOXIA (2) COPD (chronic obstructive pulmonary disease) Code(s): J44.9 - CHRONIC OBSTRUCTIVE PULMONARY DISEASE, UNSPECIFIED Qualifiers: COPD type: COPD with acute exacerbation Qualified Code(s): J44.1 - Chronic obstructive pulmonary disease with (acute) exacerbation (3) COPD exacerbation Code(s): J44.1 - CHRONIC OBSTRUCTIVE PULMONARY DISEASE W (ACUTE) EXACERBATION (4) History of arterial bypass of lower extremity Code(s): Z95.828 - PRESENCE OF OTHER VASCULAR IMPLANTS AND GRAFTS (5) Old cerebrovascular accident (CVA) without late effect Code(s): Z86.73 - PRSNL HX OF TIA (TIA), AND CEREB INFRC W/O RESID DEFICITS (6) PAD (peripheral artery disease) Code(s): I73.9 - PERIPHERAL VASCULAR DISEASE, UNSPECIFIED (7) SOB (shortness of breath) Code(s): R06.02 - SHORTNESS OF BREATH (8) Afib Code(s): I48.91 - UNSPECIFIED ATRIAL FIBRILLATION Qualifiers: Atrial fibrillation type: chronic Qualified Code(s): I48.2 - Chronic atrial fibrillation (9) CAD (coronary artery disease) Code(s): I25.10 - ATHSCL HEART DISEASE OF [place] CORONARY ARTERY W/O ANG PCTRS Qualifiers: Coronary Disease-Associated Artery/Lesion type: [place] artery (10) Hx of CABG Code(s): Z95.1 - PRESENCE OF AORTOCORONARY BYPASS GRAFT (11) Hyperlipidemia Code(s): E78.5 - HYPERLIPIDEMIA, UNSPECIFIED Qualifiers: (12) Hypertension Code(s): I10 - ESSENTIAL (PRIMARY) HYPERTENSION Qualifiers: Hypertension type: essential hypertension Qualified Code(s): I10 - Essential (primary) hypertension (13) Peripheral artery disease Code(s): I73.9 - PERIPHERAL VASCULAR DISEASE, UNSPECIFIED Assessment/Plan IMP ACUTE ON CHRONIC HYPOXEMIC RESPIRATORY FAILURE IMPROVING LIKELY URI COPD O2 DEPENDENT ASHD S/P CABG,S/P STENTS PVD CHF AFIB HTN PLAN PREDNISONE INHALED BRONCHODILATORS NIPPV NEEDED O2 LASIX AC F/U CHEST X-RAYS DR JEFFERSON Problem List - Problems (1) Acute and chronic respiratory failure with hypoxia Code(s): J96.21 - ACUTE AND CHRONIC RESPIRATORY FAILURE WITH HYPOXIA (2) COPD (chronic obstructive pulmonary disease) Code(s): J44.9 - CHRONIC OBSTRUCTIVE PULMONARY DISEASE, UNSPECIFIED Qualifiers: COPD type: COPD with acute exacerbation Qualified Code(s): J44.1 - Chronic obstructive pulmonary disease with (acute) exacerbation (3) COPD exacerbation Code(s): J44.1 - CHRONIC OBSTRUCTIVE PULMONARY DISEASE W (ACUTE) EXACERBATION (4) History of arterial bypass of lower extremity Code(s): Z95.828 - PRESENCE OF OTHER VASCULAR IMPLANTS AND GRAFTS (5) Old cerebrovascular accident (CVA) without late effect Code(s): Z86.73 - PRSNL HX OF TIA (TIA), AND CEREB INFRC W/O RESID DEFICITS (6) PAD (peripheral artery disease) Code(s): I73.9 - PERIPHERAL VASCULAR DISEASE, UNSPECIFIED (7) SOB (shortness of breath) Code(s): R06.02 - SHORTNESS OF BREATH (8) Afib Code(s): I48.91 - UNSPECIFIED ATRIAL FIBRILLATION Qualifiers: Atrial fibrillation type: chronic Qualified Code(s): I48.2 - Chronic atrial fibrillation (9) CAD (coronary artery disease) Code(s): I25.10 - ATHSCL HEART DISEASE OF [place] CORONARY ARTERY W/O ANG PCTRS Qualifiers: Coronary Disease-Associated Artery/Lesion type: [place] artery (10) Hx of CABG Code(s): Z95.1 - PRESENCE OF AORTOCORONARY BYPASS GRAFT (11) Hyperlipidemia Code(s): E78.5 - HYPERLIPIDEMIA, UNSPECIFIED Qualifiers: (12) Hypertension Code(s): I10 - ESSENTIAL (PRIMARY) HYPERTENSION Qualifiers: Hypertension type: essential hypertension Qualified Code(s): I10 - Essential (primary) hypertension (13) Peripheral artery disease Code(s): I73.9 - PERIPHERAL VASCULAR DISEASE, UNSPECIFIED
[2017-11-12] MEDS ORDERED: NITROGLYCERIN SUBLINGUAL 1/150 0.4 MG TAB ONE (11:31)
[2017-11-12] MEDS ORDERED: NITROGLYCERIN SUBLINGUAL 1/150 0.4 MG TAB SL ONE (11:59)
[2017-11-12] MEDS ORDERED: LISINOPRIL 20 MG TABLET (FP) PO ONE (12:01)
[2017-11-12] MEDS: ISOSORBIDE MONONITRATE 30 MG TAB.SR.24H (FP) PO SCH (13:09)
[2017-11-12] MEDS: predniSONE 20 MG TABLET (UD) PO SCH ×2 (13:09→21:11)
--- NOTE | 2017-11-12 14:15 | PN ---
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, Physician History of Present Illness: Pt seen and examined at bedside. He had some chest pain early this morning that required nitro. He denies shortness of breath or chest pain now. - Current Medication List Current Medications: Active Medications Acetaminophen (Tylenol -) 650 mg PO Q6H PRN PRN Reason: PAIN OR FEVER Last Admin: 11/11/17 22:04 Dose: 650 mg Albuterol/Ipratropium (Duoneb -) 1 amp NEB RQID [facility] Last Admin: 11/12/17 12:10 Dose: 1 amp Atorvastatin Calcium (Lipitor -) 20 mg PO HS [facility] Last Admin: 11/11/17 22:04 Dose: 20 mg Duloxetine HCl (Cymbalta -) 60 mg PO DAILY [facility] Last Admin: 11/12/17 09:36 Dose: 60 mg Fluocinonide (Lidex 0.05% Cream -) 1 applic TP BID [facility] Last Admin: 11/12/17 09:39 Dose: 1 applic Furosemide (Lasix -) 40 mg PO DAILY [facility] Last Admin: 11/12/17 09:37 Dose: 40 mg Isosorbide Mononitrate (Imdur -) 30 mg PO DAILY [facility] Last Admin: 11/12/17 13:09 Dose: 30 mg Lisinopril (Prinivil) 40 mg PO DAILY [facility] Methyl Salicylate (Alexy-Santos -) 1 applic TP BID [facility] Last Admin: 11/12/17 09:40 Dose: 1 applic Metoprolol Succinate (Toprol Xl -) 50 mg PO DAILY [facility] Last Admin: 11/12/17 09:37 Dose: 50 mg Pantoprazole Sodium (Protonix -) 40 mg PO DAILY [facility] Last Admin: 11/12/17 09:37 Dose: 40 mg Prednisone (Deltasone -) 20 mg PO BID [facility] Last Admin: 11/12/17 13:09 Dose: 20 mg Pregabalin (Lyrica -) 100 mg PO TID [facility] Last Admin: 11/12/17 13:09 Dose: 100 mg Rivaroxaban (Xarelto -) 20 mg PO DAILY@1800 [facility] Last Admin: 11/11/17 17:07 Dose: 20 mg Tamsulosin HCl (Flomax -) 0.4 mg PO DAILY@0830 [facility] Last Admin: 11/12/17 09:37 Dose: 0.4 mg - Objective Vital Signs: Vital Signs Temperature 98 F 11/12/17 10:24 Pulse Rate 74 11/12/17 12:01 Respiratory Rate 18 11/12/17 12:01 Blood Pressure 128/92 11/12/17 12:01 O2 Sat by Pulse Oximetry (%) 92 L 11/11/17 20:33 Constitutional: Yes: Calm Eyes: Yes: Conjunctiva Clear HENT: Yes: Atraumatic Neck: Yes: Supple Cardiovascular: Yes: S1, S2 Respiratory: Yes: On Nasal O2 Gastrointestinal: Yes: Soft Genitourinary: Yes: WNL Musculoskeletal: Yes: WNL Edema: No Integumentary: Yes: WNL Neurological: Yes: Oriented Psychiatric: Yes: Oriented Labs: CBC, BMP 11/09/17 07:00 11/10/17 07:00 Problem List - Problems (1) Acute and chronic respiratory failure with hypoxia Code(s): J96.21 - ACUTE AND CHRONIC RESPIRATORY FAILURE WITH HYPOXIA (2) CHF (congestive heart failure) Code(s): I50.9 - HEART FAILURE, UNSPECIFIED (3) COPD exacerbation Code(s): J44.1 - CHRONIC OBSTRUCTIVE PULMONARY DISEASE W (ACUTE) EXACERBATION (4) Azotemia Code(s): R79.89 - OTHER SPECIFIED ABNORMAL FINDINGS OF BLOOD CHEMISTRY (5) CAD (coronary artery disease) Code(s): I25.10 - ATHSCL HEART DISEASE OF [place] CORONARY ARTERY W/O ANG PCTRS Qualifiers: Coronary Disease-Associated Artery/Lesion type: [place] artery Associated angina: with stable angina Assessment/Plan Current Medications Generic Name Dose Route Start Last Admin Trade Name Freq PRN Reason Stop Dose Admin Acetaminophen 650 mg 11/08/17 17:24 11/11/17 22:04 Tylenol - PO 650 mg Q6H PRN Administration PAIN OR FEVER Albuterol/Ipratropium 1 amp 11/08/17 16:00 11/12/17 12:10 Duoneb - NEB 1 amp RQID DIANNE Administration Atorvastatin Calcium 20 mg 11/08/17 22:00 11/11/17 22:04 Lipitor - PO 20 mg HS DIANNE Administration Duloxetine HCl 60 mg 11/09/17 10:00 11/12/17 09:36 Cymbalta - PO 60 mg DAILY [facility] Administration Fluocinonide 1 applic 11/08/17 22:00 11/12/17 09:39 Lidex 0.05% Cream - TP 1 applic BID DIANNE Administration Furosemide 40 mg 11/12/17 10:00 11/12/17 09:37 Lasix - PO 40 mg DAILY [facility] Administration Isosorbide Mononitrate 30 mg 11/12/17 12:00 11/12/17 13:09 Imdur - PO 30 mg DAILY [facility] Administration Lisinopril 40 mg 11/13/17 10:00 Prinivil PO DAILY [facility] Methyl Salicylate 1 applic 11/08/17 22:00 11/12/17 09:40 Alexy-Santos - TP 1 applic BID DIANNE Administration Metoprolol Succinate 50 mg 11/08/17 10:30 11/12/17 09:37 Toprol Xl - PO 50 mg DAILY DI[facility]NE Administration Pantoprazole Sodium 40 mg 11/09/17 10:00 11/12/17 09:37 Protonix - PO 40 mg DAILY [facility] Administration Prednisone 20 mg 11/12/17 12:30 11/12/17 13:09 Deltasone - PO 20 mg BID DI[facility]NE Administration Pregabalin 100 mg 11/08/17 15:15 11/12/17 13:09 Lyrica - PO 100 mg TID DIANNE Administration Rivaroxaban 20 mg 11/08/17 18:00 11/11/17 17:07 Xarelto - PO 20 mg DAILY@1800 DIANEN Administration Tamsulosin HCl 0.4 mg 11/09/17 08:30 11/12/17 09:37 Flomax - PO 0.4 mg DAILY@0830 [facility]NE Administration Impression 1. CKD 2. COPD exacerbation 3. AAA 4. hx CVA 5. a-fib 6. HTN 7. insomnia 8. hypoxic resp failure 9. CAD 10. BPH 12. microscopic hematuria Plan - renal function is stable - will need follow up with cardio - avoid nsaids - monitor lytes - can see as outpt after discharged - can keep on steve - monitor pulse ox - cont oxygen - discussed with pt and his
[2017-11-12] MEDS: RIVAROXABAN 20 MG TABLET PO SCH (17:17)
[2017-11-12 20:53] LABS: ARTERIAL BLD GAS O2 SATURATION 75.6 % (90-98.9); ARTERIAL BLOOD GAS BASE EXCESS 5.8 meq/l (-2-2); ARTERIAL BLOOD GAS PCO2 40.2 mmHg (35-45); ARTERIAL BLOOD GAS pH 7.48 (7.35-7.45)
[2017-11-12 20:54] LABS: ALLENS TEST POSITIVE
[2017-11-12 20:56] LABS: ARTERIAL BLOOD GAS PO2 43.5 mmHg (70-100)
--- NOTE | 2017-11-12 20:59 | HOSP ---
Subjective - Review of Symptoms Events since last encounter: Hospitalist Encounter Notified by comfort [place] extension educator provider that the RN reports that the patient is more confused then baseline, increased SOB, desat 88-90% Subjective: Arrived to bedside, patient is awake, alert and agitated answering to name only , will not answer questions such as time, place, president. While auscultating his lungs he was refusing care, patient encouraged to aloow medical staff to treat him See PE Plan Stat ABG Stat Chest Xray FS Duoneb x1 now Pulmonary: Yes: Dyspnea Neurological: Yes: Confusion Physical Examination Vital Signs: Vital Signs Temperature 97.8 F 11/12/17 17:00 Pulse Rate 88 11/12/17 17:00 Respiratory Rate 18 11/12/17 17:00 Blood Pressure 107/72 11/12/17 17:00 O2 Sat by Pulse Oximetry (%) 92 L 11/12/17 09:00 Constitutional: Yes: Moderate Distress Eyes: Yes: Conjunctiva Clear, PERRL HENT: Yes: Atraumatic, Normocephalic Neck: Yes: Supple, Trachea Midline Cardiovascular: Yes: Pulse Irregular, S1, S2 Respiratory: Yes: Diminished, Rhonchi, SOB, SOB on Exertion, Wheezes, Other (on NRB) Peripheral Pulses WNL: Yes Neurological: Yes: Confusion, Cran Nerves II-XII Intact ...Motor Strength: WNL Psychiatric: Yes: Alert, Agitated Labs: CBC, BMP 11/09/17 07:00 11/10/17 07:00 Laboratory Results - last 24 hr 11/12/17 11/12/17 20:35 20:40 Anticoagulation Therapy No Result Required. Puncture Site Right radial ABG pH 7.48 H ABG pCO2 at Pt Temp 40.2 ABG pO2 at Pt Temp 43.5 L* D ABG HCO3 29.4 H ABG O2 Sat (Measured) 75.6 L ABG O2 Content 15.2 ABG Base Excess 5.8 H Aristides Test Positive O2 Delivery Device Nrb mask Oxygen Flow Rate 100 Vent Mode No Result Required. Vent Rate No Result Required. Mechanical Rate No Result Required. Pressure Support Vent No Result Required. POC Glucometer 135 Current Medications Generic Name Dose Route Start Last Admin Trade Name Freq PRN Reason Stop Dose Admin Acetaminophen 650 mg 11/08/17 17:24 11/11/17 22:04 Tylenol - PO 650 mg Q6H PRN Administration PAIN OR FEVER Albuterol/Ipratropium 1 amp 11/08/17 16:00 11/12/17 19:35 Duoneb - NEB 1 amp RQID DIANNE Administration Atorvastatin Calcium 20 mg 11/08/17 22:00 11/11/17 22:04 Lipitor - PO 20 mg HS [facility] Administration Duloxetine HCl 60 mg 11/09/17 10:00 11/12/17 09:36 Cymbalta - PO 60 mg DAILY [facility] Administration Fluocinonide 1 applic 11/08/17 22:00 11/12/17 09:39 Lidex 0.05% Cream - TP 1 applic BID DIANNE Administration Furosemide 40 mg 11/12/17 10:00 11/12/17 09:37 Lasix - PO 40 mg DAILY [facility] Administration Isosorbide Mononitrate 30 mg 11/12/17 12:00 11/12/17 13:09 Imdur - PO 30 mg DAILY [facility] Administration Lisinopril 40 mg 11/13/17 10:00 Prinivil PO DAILY [facility] Methyl Salicylate 1 applic 11/08/17 22:00 11/12/17 09:40 Alexy-Santos - TP 1 applic BID [facility] Administration Metoprolol Succinate 50 mg 11/08/17 10:30 11/12/17 09:37 Toprol Xl - PO 50 mg DAILY [facility] Administration Pantoprazole Sodium 40 mg 11/09/17 10:00 11/12/17 09:37 Protonix - PO 40 mg DAILY [facility] Administration Prednisone 20 mg 11/12/17 12:30 11/12/17 13:09 Deltasone - PO 20 mg BID [facility] Administration Pregabalin 100 mg 11/08/17 15:15 11/12/17 13:09 Lyrica - PO 100 mg TID [facility] Administration Rivaroxaban 20 mg 11/08/17 18:00 11/12/17 17:17 Xarelto - PO 20 mg DAILY@1800 [facility] Administration Tamsulosin HCl 0.4 mg 11/09/17 08:30 11/12/17 09:37 Flomax - PO 0.4 mg DAILY@0830 [facility]NE Administration Hospitalist Encounter Outcome: ABG- hypoxia Patient placed on a Venturi Mask- then placed back on 3LNC, tolerating Spo2 91- 93% (COPD hx) Chest Xray- image no change from prior study Patient resting comfortably at bedside Will continue to monitor RN to inform PCP of overnights events Critical Care Total Critical Care Time (in minutes): 32 Critical Care Statement: The care of this patient involved high complexity decision making to prevent further life threatening deterioration of the patient 's condition and/or to evaluate & treat vital organ system(s) failure or risk of failure.
[2017-11-12] MEDS ORDERED: ALBUTEROL SO4 2.5/IPRATROPIUM 0.5 INH SOL 3 ML VIAL.NEB. NEB ONE (21:00)
[2017-11-12] MEDS: ATORVASTATIN CA 20 MG TABLET (FP) PO SCH (21:11)
[2017-11-12] MEDS: ACETAMINOPHEN 325 MG TABLET (FP) PO PRN (21:36)
[2017-11-13] MEDS: PREGABALIN 100 MG CAPSULE PO SCH ×3 (06:09→22:10)
[2017-11-13] MEDS: ALBUTEROL SO4 2.5/IPRATROPIUM 0.5 INH SOL 3 ML VIAL.NEB. NEB SCH ×4 (08:23→21:36)
[2017-11-13 09:01] LABS: ARTERIAL BLD GAS O2 SATURATION 84.1 % (90-98.9); ARTERIAL BLOOD GAS BASE EXCESS 3.8 meq/l (-2-2); ARTERIAL BLOOD GAS PCO2 44.7 mmHg (35-45); ARTERIAL BLOOD GAS PO2 52.1 mmHg (70-100); ARTERIAL BLOOD GAS pH 7.42 (7.35-7.45)
[2017-11-13 09:06] LABS: ALLENS TEST POSITIVE
[2017-11-13] MEDS ORDERED: FUROSEMIDE 40 MG TABLET (FP) PO SCH (09:24)
[2017-11-13] MEDS ORDERED: predniSONE 20 MG TABLET (UD) PO SCH (09:24)
--- NOTE | 2017-11-13 09:27 | PN ---
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, Physician History of Present Illness: sob yesterday - Current Medication List Current Medications: Active Medications Acetaminophen (Tylenol -) 650 mg PO Q6H PRN PRN Reason: PAIN OR FEVER Last Admin: 11/12/17 21:36 Dose: 650 mg Albuterol/Ipratropium (Duoneb -) 1 amp NEB RQID [facility] Last Admin: 11/13/17 08:23 Dose: Not Given Atorvastatin Calcium (Lipitor -) 20 mg PO HS [facility] Last Admin: 11/12/17 21:11 Dose: 20 mg Duloxetine HCl (Cymbalta -) 60 mg PO DAILY [facility] Last Admin: 11/12/17 09:36 Dose: 60 mg Fluocinonide (Lidex 0.05% Cream -) 1 applic TP BID [facility] Last Admin: 11/12/17 21:11 Dose: 1 applic Furosemide (Lasix -) 80 mg PO DAILY [facility] Isosorbide Mononitrate (Imdur -) 30 mg PO DAILY [facility] Last Admin: 11/12/17 13:09 Dose: 30 mg Lisinopril (Prinivil) 40 mg PO DAILY [facility] Methyl Salicylate (Alexy-Santos -) 1 applic TP BID [facility] Last Admin: 11/12/17 21:11 Dose: Not Given Metoprolol Succinate (Toprol Xl -) 50 mg PO DAILY [facility] Last Admin: 11/12/17 09:37 Dose: 50 mg Pantoprazole Sodium (Protonix -) 40 mg PO DAILY [facility] Last Admin: 11/12/17 09:37 Dose: 40 mg Prednisone (Deltasone -) 40 mg PO BID [facility] Pregabalin (Lyrica -) 100 mg PO TID [facility] Last Admin: 11/13/17 06:09 Dose: 100 mg Rivaroxaban (Xarelto -) 20 mg PO DAILY@1800 [facility] Last Admin: 11/12/17 17:17 Dose: 20 mg Tamsulosin HCl (Flomax -) 0.4 mg PO DAILY@0830 [facility] Last Admin: 11/12/17 09:37 Dose: 0.4 mg - Objective Vital Signs: Vital Signs Temperature 98.7 F 11/13/17 06:00 Pulse Rate 80 11/13/17 06:00 Respiratory Rate 16 11/13/17 06:00 Blood Pressure 135/97 11/13/17 06:00 O2 Sat by Pulse Oximetry (%) 83 L 11/12/17 21:00 Cardiovascular: Yes: S1, S2 Respiratory: Yes: Diminished, Rales Gastrointestinal: Yes: Normal Bowel Sounds, Soft Labs: CBC, BMP 11/09/17 07:00 11/10/17 07:00 Problem List - Problems (1) COPD exacerbation Assessment/Plan: IV STEROIDS--on prednisone 20 bid--Increase 40 bid NEBS QID OXYGEN ABG NOTED Code(s): J44.1 - CHRONIC OBSTRUCTIVE PULMONARY DISEASE W (ACUTE) EXACERBATION (2) CHF (congestive heart failure) Assessment/Plan: -IV LASIX=-ON 40 PO DAILY--INCREASE TO 80 -CXR Code(s): I50.9 - HEART FAILURE, UNSPECIFIED (3) CAD (coronary artery disease) Assessment/Plan: NO CP MONITOR Code(s): I25.10 - ATHSCL HEART DISEASE OF [place] CORONARY ARTERY W/O ANG PCTRS Qualifiers: Coronary Disease-Associated Artery/Lesion type: [place] artery Associated angina: with stable angina Assessment/Plan DISCUSSED WIT PATIENT WILL BENEFIT FROM SNF
[2017-11-13] MEDS: ISOSORBIDE MONONITRATE 30 MG TAB.SR.24H (FP) PO SCH (10:16)
[2017-11-13] MEDS: PANTOPRAZOLE 40 MG TABLET (FP) PO SCH (10:16)
[2017-11-13] MEDS: LISINOPRIL 20 MG TABLET (FP) PO SCH (10:16)
[2017-11-13] MEDS: predniSONE 20 MG TABLET (UD) PO SCH ×2 (10:16→22:10)
[2017-11-13] MEDS: TAMSULOSIN HCL 0.4 MG CAP.ER.24H (FP) PO SCH (10:16)
[2017-11-13] MEDS: DULoxetine HCL 30 MG CAPSULE.DR (FP) PO SCH (10:16)
[2017-11-13] MEDS: FLUOCINONIDE 0.05% CREAM (15 GM TUBE) TP SCH ×2 (10:17→22:17)
[2017-11-13] MEDS: METHYL SALICYLATE/MENTHOL OINT 30 GM TUBE TP SCH ×2 (10:17→22:17)
--- NOTE | 2017-11-13 10:31 | PN ---
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, Physician Chief Complaint: Cardiology f/u with Dr. Hines History of Present Illness: Dyspneic, confused, hypoxic overnight amenable to BD. Now back at baseline. - Current Medication List Current Medications: Active Medications Acetaminophen (Tylenol -) 650 mg PO Q6H PRN PRN Reason: PAIN OR FEVER Last Admin: 11/12/17 21:36 Dose: 650 mg Albuterol/Ipratropium (Duoneb -) 1 amp NEB RQID [facility] Last Admin: 11/13/17 08:23 Dose: Not Given Atorvastatin Calcium (Lipitor -) 20 mg PO HS [facility] Last Admin: 11/12/17 21:11 Dose: 20 mg Duloxetine HCl (Cymbalta -) 60 mg PO DAILY [facility] Last Admin: 11/13/17 10:16 Dose: 60 mg Fluocinonide (Lidex 0.05% Cream -) 1 applic TP BID [facility] Last Admin: 11/13/17 10:17 Dose: 1 applic Furosemide (Lasix -) 80 mg PO DAILY [facility] Last Admin: 11/13/17 10:16 Dose: 80 mg Isosorbide Mononitrate (Imdur -) 30 mg PO DAILY [facility] Last Admin: 11/13/17 10:16 Dose: 30 mg Lisinopril (Prinivil) 40 mg PO DAILY [facility] Last Admin: 11/13/17 10:16 Dose: 40 mg Methyl Salicylate (Alexy-Santos -) 1 applic TP BID [facility] Last Admin: 11/13/17 10:17 Dose: 1 applic Metoprolol Succinate (Toprol Xl -) 50 mg PO DAILY [facility] Last Admin: 11/13/17 10:16 Dose: 50 mg Pantoprazole Sodium (Protonix -) 40 mg PO DAILY [facility] Last Admin: 11/13/17 10:16 Dose: 40 mg Prednisone (Deltasone -) 40 mg PO BID [facility] Last Admin: 11/13/17 10:16 Dose: 40 mg Pregabalin (Lyrica -) 100 mg PO TID [facility] Last Admin: 11/13/17 06:09 Dose: 100 mg Rivaroxaban (Xarelto -) 20 mg PO DAILY@1800 [facility] Last Admin: 11/12/17 17:17 Dose: 20 mg Tamsulosin HCl (Flomax -) 0.4 mg PO DAILY@0830 [facility] Last Admin: 11/13/17 10:16 Dose: 0.4 mg - Objective Vital Signs: Vital Signs Temperature 97.6 F 11/13/17 09:34 Pulse Rate 86 11/13/17 09:34 Respiratory Rate 18 11/13/17 09:34 Blood Pressure 140/83 11/13/17 09:34 O2 Sat by Pulse Oximetry (%) 83 L 11/12/17 21:00 Constitutional: Yes: No Distress, Calm, Thin Neck: Yes: Supple Cardiovascular: Yes: Regular Rate and Rhythm Respiratory: Yes: Regular, Diminished, On Nasal O2 Gastrointestinal: Yes: Normal Bowel Sounds, Soft Edema: No Labs: CBC, BMP 11/09/17 07:00 11/10/17 07:00 - ....Imaging Chest X-ray: Report Reviewed (NAD) EKG: Report Reviewed (Tele: Afib v-paced) Assessment/Plan - Problems (1) COPD (chronic obstructive pulmonary disease) Code(s): J44.9 - CHRONIC OBSTRUCTIVE PULMONARY DISEASE, UNSPECIFIED Qualifiers: COPD type: COPD with acute exacerbation Qualified Code(s): J44.1 - Chronic obstructive pulmonary disease with (acute) exacerbation (2) COPD exacerbation Code(s): J44.1 - CHRONIC OBSTRUCTIVE PULMONARY DISEASE W (ACUTE) EXACERBATION (3) History of aortic aneurysm repair Code(s): Z98.890 - OTHER SPECIFIED POSTPROCEDURAL STATES; Z86.79 - PERSONAL HISTORY OF OTHER DISEASES OF THE CIRCULATORY SYSTEM (4) History of arterial bypass of lower extremity Code(s): Z95.828 - PRESENCE OF OTHER VASCULAR IMPLANTS AND GRAFTS (5) PAD (peripheral artery disease) Code(s): I73.9 - PERIPHERAL VASCULAR DISEASE, UNSPECIFIED (6) Afib Code(s): I48.91 - UNSPECIFIED ATRIAL FIBRILLATION Qualifiers: Atrial fibrillation type: chronic Qualified Code(s): I48.2 - Chronic atrial fibrillation (7) CAD (coronary artery disease) Code(s): I25.10 - ATHSCL HEART DISEASE OF [place] CORONARY ARTERY W/O ANG PCTRS Qualifiers: Coronary Disease-Associated Artery/Lesion type: [place] artery (8) History of permanent cardiac pacemaker placement Code(s): Z95.0 - PRESENCE OF CARDIAC PACEMAKER (9) Hx of CABG Code(s): Z95.1 - PRESENCE OF AORTOCORONARY BYPASS GRAFT Assessment/Plan IMP: 1. Acute on chronic hypoxemic respiratory failure referable to acute exacerbation of COPD, resolving 2. CAD post CABG post PCI/stents angina pectoris 3. Post BATCH TANK CONTROLLER-P ICM declined ICD, with improvement in LVEF 4. Paroxysmal atrial fibrillation [id number] score of 5 on Xarelto 5. Advanced PAD 6. History of thoracic, abdominal and right internal iliac aneurysms 7. HTN 8. Hypercholesterolemia PLAN: 1. Continue Xarelto at 20 mg daily, if GFR remains below 50 dose to be decreased to 15 mg daily 2. Continue Toprol XL 50 qd, Imdur 30 qd and Lipitor 20 qhs 3. Continue Lisinopril 40 qd 4. Decrease Lasix 20 po qd (home dose) 5. Oral steroid taper with GI protection, BD, O2 as needed.
--- NOTE | 2017-11-13 10:38 | PN ---
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, Physician History of Present Illness: Pt seen and examined at bedside. He is awake and appears comfortable. He does get SOB at times however he does not feel that it is much different than his baseline. - Current Medication List Current Medications: Active Medications Acetaminophen (Tylenol -) 650 mg PO Q6H PRN PRN Reason: PAIN OR FEVER Last Admin: 11/12/17 21:36 Dose: 650 mg Albuterol/Ipratropium (Duoneb -) 1 amp NEB RQID [facility] Last Admin: 11/13/17 08:23 Dose: Not Given Atorvastatin Calcium (Lipitor -) 20 mg PO HS [facility] Last Admin: 11/12/17 21:11 Dose: 20 mg Duloxetine HCl (Cymbalta -) 60 mg PO DAILY [facility] Last Admin: 11/13/17 10:16 Dose: 60 mg Fluocinonide (Lidex 0.05% Cream -) 1 applic TP BID [facility] Last Admin: 11/13/17 10:17 Dose: 1 applic Furosemide (Lasix -) 80 mg PO DAILY [facility] Last Admin: 11/13/17 10:16 Dose: 80 mg Isosorbide Mononitrate (Imdur -) 30 mg PO DAILY [facility] Last Admin: 11/13/17 10:16 Dose: 30 mg Lisinopril (Prinivil) 40 mg PO DAILY [facility] Last Admin: 11/13/17 10:16 Dose: 40 mg Methyl Salicylate (Alexy-Santos -) 1 applic TP BID [facility] Last Admin: 11/13/17 10:17 Dose: 1 applic Metoprolol Succinate (Toprol Xl -) 50 mg PO DAILY [facility] Last Admin: 11/13/17 10:16 Dose: 50 mg Pantoprazole Sodium (Protonix -) 40 mg PO DAILY [facility] Last Admin: 11/13/17 10:16 Dose: 40 mg Prednisone (Deltasone -) 40 mg PO BID [facility] Last Admin: 11/13/17 10:16 Dose: 40 mg Pregabalin (Lyrica -) 100 mg PO TID [facility] Last Admin: 11/13/17 06:09 Dose: 100 mg Rivaroxaban (Xarelto -) 20 mg PO DAILY@1800 [facility] Last Admin: 11/12/17 17:17 Dose: 20 mg Tamsulosin HCl (Flomax -) 0.4 mg PO DAILY@0830 [facility] Last Admin: 11/13/17 10:16 Dose: 0.4 mg - Objective Vital Signs: Vital Signs Temperature 97.6 F 11/13/17 09:34 Pulse Rate 86 11/13/17 09:34 Respiratory Rate 18 11/13/17 09:34 Blood Pressure 140/83 11/13/17 09:34 O2 Sat by Pulse Oximetry (%) 83 L 11/12/17 21:00 Constitutional: Yes: Calm Eyes: Yes: Conjunctiva Clear HENT: Yes: Atraumatic Neck: Yes: Supple Cardiovascular: Yes: S1, S2 Respiratory: Yes: On Nasal O2, Wheezes Gastrointestinal: Yes: Soft Genitourinary: Yes: WNL Musculoskeletal: Yes: WNL Edema: No Neurological: Yes: Oriented Psychiatric: Yes: Oriented Labs: CBC, BMP 11/09/17 07:00 11/10/17 07:00 Problem List - Problems (1) Acute and chronic respiratory failure with hypoxia Code(s): J96.21 - ACUTE AND CHRONIC RESPIRATORY FAILURE WITH HYPOXIA (2) CHF (congestive heart failure) Code(s): I50.9 - HEART FAILURE, UNSPECIFIED (3) COPD exacerbation Code(s): J44.1 - CHRONIC OBSTRUCTIVE PULMONARY DISEASE W (ACUTE) EXACERBATION (4) Azotemia Code(s): R79.89 - OTHER SPECIFIED ABNORMAL FINDINGS OF BLOOD CHEMISTRY (5) CAD (coronary artery disease) Code(s): I25.10 - ATHSCL HEART DISEASE OF [place] CORONARY ARTERY W/O ANG PCTRS Qualifiers: Coronary Disease-Associated Artery/Lesion type: [place] artery Associated angina: with stable angina Assessment/Plan Current Medications Generic Name Dose Route Start Last Admin Trade Name Freq PRN Reason Stop Dose Admin Acetaminophen 650 mg 11/08/17 17:24 11/12/17 21:36 Tylenol - PO 650 mg Q6H PRN Administration PAIN OR FEVER Albuterol/Ipratropium 1 amp 11/08/17 16:00 11/13/17 08:23 Duoneb - NEB Not Given RQID [facility] Atorvastatin Calcium 20 mg 11/08/17 22:00 11/12/17 21:11 Lipitor - PO 20 mg HS [facility] Administration Duloxetine HCl 60 mg 11/09/17 10:00 11/13/17 10:16 Cymbalta - PO 60 mg DAILY [facility] Administration Fluocinonide 1 applic 11/08/17 22:00 11/13/17 10:17 Lidex 0.05% Cream - TP 1 applic BID [facility] Administration Furosemide 80 mg 11/13/17 09:24 11/13/17 10:16 Lasix - PO 80 mg DAILY [facility] Administration Isosorbide Mononitrate 30 mg 11/12/17 12:00 11/13/17 10:16 Imdur - PO 30 mg DAILY [facility] Administration Lisinopril 40 mg 11/13/17 10:00 11/13/17 10:16 Prinivil PO 40 mg DAILY [facility] Administration Methyl Salicylate 1 applic 11/08/17 22:00 11/13/17 10:17 Alexy-Santos - TP 1 applic BID [facility] Administration Metoprolol Succinate 50 mg 11/08/17 10:30 11/13/17 10:16 Toprol Xl - PO 50 mg DAILY [facility] Administration Pantoprazole Sodium 40 mg 11/09/17 10:00 11/13/17 10:16 Protonix - PO 40 mg DAILY [facility] Administration Prednisone 40 mg 11/13/17 09:30 11/13/17 10:16 Deltasone - PO 40 mg BID [facility] Administration Pregabalin 100 mg 11/08/17 15:15 11/13/17 06:09 Lyrica - PO 100 mg TID [facility] Administration Rivaroxaban 20 mg 11/08/17 18:00 11/12/17 17:17 Xarelto - PO 20 mg DAILY@1800 [facility] Administration Tamsulosin HCl 0.4 mg 11/09/17 08:30 11/13/17 10:16 Flomax - PO 0.4 mg DAILY@0830 [facility] Administration Impression 1. CKD 2. COPD exacerbation 3. AAA 4. hx CVA 5. a-fib 6. HTN 7. insomnia 8. hypoxic resp failure 9. CAD 10. BPH 12. microscopic hematuria Plan - check bmp - cont current meds - cont steve - steroids may contribute to elevated bun - pt denies chest pain - cardiology input appreciated - monitor pulse ox - cont oxygen
--- NOTE | 2017-11-13 11:22 | PN ---
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, Physician History of Present Illness: pulmonary alert,no distress,dyspnea improved - Current Medication List Current Medications: Active Medications Acetaminophen (Tylenol -) 650 mg PO Q6H PRN PRN Reason: PAIN OR FEVER Last Admin: 11/12/17 21:36 Dose: 650 mg Albuterol/Ipratropium (Duoneb -) 1 amp NEB RQID [facility] Last Admin: 11/13/17 08:23 Dose: Not Given Atorvastatin Calcium (Lipitor -) 20 mg PO HS [facility] Last Admin: 11/12/17 21:11 Dose: 20 mg Duloxetine HCl (Cymbalta -) 60 mg PO DAILY [facility] Last Admin: 11/13/17 10:16 Dose: 60 mg Fluocinonide (Lidex 0.05% Cream -) 1 applic TP BID [facility] Last Admin: 11/13/17 10:17 Dose: 1 applic Furosemide (Lasix -) 20 mg PO DAILY [facility] Isosorbide Mononitrate (Imdur -) 30 mg PO DAILY [facility] Last Admin: 11/13/17 10:16 Dose: 30 mg Lisinopril (Prinivil) 40 mg PO DAILY [facility] Last Admin: 11/13/17 10:16 Dose: 40 mg Methyl Salicylate (Alexy-Santos -) 1 applic TP BID [facility] Last Admin: 11/13/17 10:17 Dose: 1 applic Metoprolol Succinate (Toprol Xl -) 50 mg PO DAILY [facility] Last Admin: 11/13/17 10:16 Dose: 50 mg Pantoprazole Sodium (Protonix -) 40 mg PO DAILY [facility] Last Admin: 11/13/17 10:16 Dose: 40 mg Prednisone (Deltasone -) 40 mg PO BID [facility] Last Admin: 11/13/17 10:16 Dose: 40 mg Pregabalin (Lyrica -) 100 mg PO TID [facility] Last Admin: 11/13/17 06:09 Dose: 100 mg Rivaroxaban (Xarelto -) 20 mg PO DAILY@1800 [facility] Last Admin: 11/12/17 17:17 Dose: 20 mg Tamsulosin HCl (Flomax -) 0.4 mg PO DAILY@0830 [facility] Last Admin: 11/13/17 10:16 Dose: 0.4 mg - Objective Vital Signs: Vital Signs Temperature 97.6 F 11/13/17 09:34 Pulse Rate 86 11/13/17 09:34 Respiratory Rate 18 11/13/17 09:34 Blood Pressure 140/83 11/13/17 09:34 O2 Sat by Pulse Oximetry (%) 83 L 11/12/17 21:00 Constitutional: Yes: Well Nourished, Calm Eyes: Yes: WNL HENT: Yes: WNL Neck: Yes: WNL Cardiovascular: Yes: Pulse Irregular, S1, S2 Respiratory: Yes: Rales (few bibasailar crackles) Gastrointestinal: Yes: Normal Bowel Sounds, Soft Extremities: Yes: WNL Edema: No Labs: CBC, BMP Problem List - Problems (1) Acute and chronic respiratory failure with hypoxia Code(s): J96.21 - ACUTE AND CHRONIC RESPIRATORY FAILURE WITH HYPOXIA (2) COPD (chronic obstructive pulmonary disease) Code(s): J44.9 - CHRONIC OBSTRUCTIVE PULMONARY DISEASE, UNSPECIFIED Qualifiers: COPD type: COPD with acute exacerbation Qualified Code(s): J44.1 - Chronic obstructive pulmonary disease with (acute) exacerbation (3) COPD exacerbation Code(s): J44.1 - CHRONIC OBSTRUCTIVE PULMONARY DISEASE W (ACUTE) EXACERBATION (4) History of arterial bypass of lower extremity Code(s): Z95.828 - PRESENCE OF OTHER VASCULAR IMPLANTS AND GRAFTS (5) Old cerebrovascular accident (CVA) without late effect Code(s): Z86.73 - PRSNL HX OF TIA (TIA), AND CEREB INFRC W/O RESID DEFICITS (6) PAD (peripheral artery disease) Code(s): I73.9 - PERIPHERAL VASCULAR DISEASE, UNSPECIFIED (7) SOB (shortness of breath) Code(s): R06.02 - SHORTNESS OF BREATH (8) Afib Code(s): I48.91 - UNSPECIFIED ATRIAL FIBRILLATION Qualifiers: Atrial fibrillation type: chronic Qualified Code(s): I48.2 - Chronic atrial fibrillation (9) CAD (coronary artery disease) Code(s): I25.10 - ATHSCL HEART DISEASE OF [place] CORONARY ARTERY W/O ANG PCTRS Qualifiers: Coronary Disease-Associated Artery/Lesion type: [place] artery (10) Hx of CABG Code(s): Z95.1 - PRESENCE OF AORTOCORONARY BYPASS GRAFT (11) Hyperlipidemia Code(s): E78.5 - HYPERLIPIDEMIA, UNSPECIFIED Qualifiers: (12) Hypertension Code(s): I10 - ESSENTIAL (PRIMARY) HYPERTENSION Qualifiers: Hypertension type: essential hypertension Qualified Code(s): I10 - Essential (primary) hypertension (13) Peripheral artery disease Code(s): I73.9 - PERIPHERAL VASCULAR DISEASE, UNSPECIFIED Assessment/Plan IMP ACUTE ON CHRONIC HYPOXEMIC RESPIRATORY FAILURE IMPROVING LIKELY URI COPD O2 DEPENDENT ASHD S/P CABG,S/P STENTS PVD CHF AFIB HTN PLAN PREDNISONE INHALED BRONCHODILATORS NIPPV NEEDED O2 LASIX AC OUTPATIENT PULMONARY REHAB DR JEFFERSON Problem List - Problems (1) Acute and chronic respiratory failure with hypoxia Code(s): J96.21 - ACUTE AND CHRONIC RESPIRATORY FAILURE WITH HYPOXIA (2) COPD (chronic obstructive pulmonary disease) Code(s): J44.9 - CHRONIC OBSTRUCTIVE PULMONARY DISEASE, UNSPECIFIED Qualifiers: COPD type: COPD with acute exacerbation Qualified Code(s): J44.1 - Chronic obstructive pulmonary disease with (acute) exacerbation (3) COPD exacerbation Code(s): J44.1 - CHRONIC OBSTRUCTIVE PULMONARY DISEASE W (ACUTE) EXACERBATION (4) History of arterial bypass of lower extremity Code(s): Z95.828 - PRESENCE OF OTHER VASCULAR IMPLANTS AND GRAFTS (5) Old cerebrovascular accident (CVA) without late effect Code(s): Z86.73 - PRSNL HX OF TIA (TIA), AND CEREB INFRC W/O RESID DEFICITS (6) PAD (peripheral artery disease) Code(s): I73.9 - PERIPHERAL VASCULAR DISEASE, UNSPECIFIED (7) SOB (shortness of breath) Code(s): R06.02 - SHORTNESS OF BREATH (8) Afib Code(s): I48.91 - UNSPECIFIED ATRIAL FIBRILLATION Qualifiers: Atrial fibrillation type: chronic Qualified Code(s): I48.2 - Chronic atrial fibrillation (9) CAD (coronary artery disease) Code(s): I25.10 - ATHSCL HEART DISEASE OF [place] CORONARY ARTERY W/O ANG PCTRS Qualifiers: Coronary Disease-Associated Artery/Lesion type: [place] artery (10) Hx of CABG Code(s): Z95.1 - PRESENCE OF AORTOCORONARY BYPASS GRAFT (11) Hyperlipidemia Code(s): E78.5 - HYPERLIPIDEMIA, UNSPECIFIED Qualifiers: (12) Hypertension Code(s): I10 - ESSENTIAL (PRIMARY) HYPERTENSION Qualifiers: Hypertension type: essential hypertension Qualified Code(s): I10 - Essential (primary) hypertension (13) Peripheral artery disease Code(s): I73.9 - PERIPHERAL VASCULAR DISEASE, UNSPECIFIED
[2017-11-13] MEDS: RIVAROXABAN 20 MG TABLET PO SCH (18:42)
[2017-11-13] MEDS: ATORVASTATIN CA 20 MG TABLET (FP) PO SCH (22:10)
[2017-11-13] MEDS: ACETAMINOPHEN 325 MG TABLET (FP) PO PRN (22:11)
[2017-11-14] MEDS ORDERED: METOPROLOL TARTRATE 5 MG/5 ML VIAL IVPUSH ONE ×2 (03:08→03:49)
--- NOTE | 2017-11-14 03:14 | HOSP ---
Subjective - Review of Symptoms Events since last encounter: Hospitalist Encounter Notified by JOSAFAT ferguson the patients HR is 130-140s sustained Plan: EKG ordered Metoprolol IV ordered Physical Examination Vital Signs: Vital Signs Temperature 98.8 F 11/13/17 17:00 Pulse Rate 78 11/13/17 17:00 Respiratory Rate 18 11/13/17 17:00 Blood Pressure 99/64 11/13/17 17:00 O2 Sat by Pulse Oximetry (%) 94 L 11/13/17 17:10 Constitutional: Yes: No Distress, Calm Eyes: Yes: Conjunctiva Clear, EOM Intact, PERRL HENT: Yes: WNL, Atraumatic, Normocephalic Neck: Yes: WNL, Supple, Trachea Midline Cardiovascular: Yes: Tachycardia, Pulse Irregular, S1 Respiratory: Yes: On Nasal O2, Rhonchi, Wheezes Gastrointestinal: Yes: WNL, Normal Bowel Sounds, Soft Labs: CBC, BMP 11/09/17 07:00 11/10/17 07:00 Critical Care Total Critical Care Time (in minutes): 35 Critical Care Statement: The care of this patient involved high complexity decision making to prevent further life threatening deterioration of the patient 's condition and/or to evaluate & treat vital organ system(s) failure or risk of failure.
[2017-11-14] MEDS ORDERED: METOPROLOL TARTRATE 5 MG/5 ML VIAL ONE (03:53)
[2017-11-14] MEDS ORDERED: AMIODARONE IN DEXTROSE,ISO-OSM 150 MG/100 ML BAG IVPB ONE (05:00)
[2017-11-14] MEDS: AMIODARONE HCL 200 MG TABLET (FP) PO SCH ×3 (05:46→23:09)
[2017-11-14] MEDS: PREGABALIN 100 MG CAPSULE PO SCH ×3 (05:47→23:09)
[2017-11-14 07:44] LABS: BASO % 0.1 % (0-2.0); HEMATOCRIT 42.9 % (35.4-49); HEMOGLOBIN 13.8 GM/dL (11.7-16.9); LYMPH % 5.9 % (8-40); MCH 26.9 pg (25.7-33.7); MCHC 32.2 g/dl (32.0-35.9); MEAN CELL VOLUME 83.7 fl (80-96); MEAN PLT VOLUME 9.6 fl (7.5-11.1); MONO % 7.5 % (3.8-10.2); NEUT % 86.5 % (42.8-82.8); PLATELET COUNT 216 K/MM3 (134-434); RBC 5.12 M/mm3 (4.00-5.60); RDW 15.8 % (11.9-15.9); WHITE BLOOD COUNT 12.7 K/mm3 (4.0-10.0)
--- NOTE | 2017-11-14 08:09 | PN ---
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, Physician History of Present Illness: sob yesterday - Current Medication List Current Medications: Active Medications Acetaminophen (Tylenol -) 650 mg PO Q6H PRN PRN Reason: PAIN OR FEVER Last Admin: 11/13/17 22:11 Dose: 650 mg Albuterol/Ipratropium (Duoneb -) 1 amp NEB RQID [facility] Last Admin: 11/13/17 21:36 Dose: 1 amp Amiodarone HCl (Cordarone -) 200 mg PO BID [facility] Last Admin: 11/14/17 05:49 Dose: Not Given Atorvastatin Calcium (Lipitor -) 20 mg PO HS [facility] Last Admin: 11/13/17 22:10 Dose: 20 mg Duloxetine HCl (Cymbalta -) 60 mg PO DAILY [facility] Last Admin: 11/13/17 10:16 Dose: 60 mg Fluocinonide (Lidex 0.05% Cream -) 1 applic TP BID [facility] Last Admin: 11/13/17 22:17 Dose: 1 applic Furosemide (Lasix -) 20 mg PO DAILY [facility] Isosorbide Mononitrate (Imdur -) 30 mg PO DAILY [facility] Last Admin: 11/13/17 10:16 Dose: 30 mg Lisinopril (Prinivil) 40 mg PO DAILY [facility] Last Admin: 11/13/17 10:16 Dose: 40 mg Methyl Salicylate (Alexy-Santos -) 1 applic TP BID [facility] Last Admin: 11/13/17 22:17 Dose: Not Given Pantoprazole Sodium (Protonix -) 40 mg PO DAILY [facility] Last Admin: 11/13/17 10:16 Dose: 40 mg Prednisone (Deltasone -) 40 mg PO BID [facility] Last Admin: 11/13/17 22:10 Dose: 40 mg Pregabalin (Lyrica -) 100 mg PO TID [facility] Last Admin: 11/14/17 05:47 Dose: 100 mg Rivaroxaban (Xarelto -) 20 mg PO DAILY@1800 [facility] Last Admin: 11/13/17 18:42 Dose: 20 mg Tamsulosin HCl (Flomax -) 0.4 mg PO DAILY@0830 [facility] Last Admin: 11/13/17 10:16 Dose: 0.4 mg - Objective Vital Signs: Vital Signs Temperature 97.5 F L 11/14/17 02:00 Pulse Rate 135 H 11/14/17 03:58 Respiratory Rate 18 11/14/17 02:00 Blood Pressure 113/77 11/14/17 03:58 O2 Sat by Pulse Oximetry (%) 93 L 11/13/17 21:00 Cardiovascular: Yes: Tachycardia, S1, S2 Respiratory: Yes: Regular, CTA Bilaterally Gastrointestinal: Yes: Normal Bowel Sounds, Soft Edema: No Labs: CBC, BMP 11/14/17 07:00 Problem List - Problems (1) COPD exacerbation Assessment/Plan: IV STEROIDS--on prednisone 20 bid--Increase 40 bid NEBS QID OXYGEN ABG NOTED Code(s): J44.1 - CHRONIC OBSTRUCTIVE PULMONARY DISEASE W (ACUTE) EXACERBATION (2) CHF (congestive heart failure) Assessment/Plan: -IV LASIX=-ON 40 PO DAILY--INCREASE TO 80 -CXR Code(s): I50.9 - HEART FAILURE, UNSPECIFIED (3) CAD (coronary artery disease) Assessment/Plan: NO CP MONITOR Code(s): I25.10 - ATHSCL HEART DISEASE OF [place] CORONARY ARTERY W/O ANG PCTRS Qualifiers: Coronary Disease-Associated Artery/Lesion type: [place] artery Associated angina: with stable angina (4) Tachycardia Assessment/Plan: -increase Metoprolo 5o bid -EKG -Cardio follow up Code(s): R00.0 - TACHYCARDIA, UNSPECIFIED (5) Afib Assessment/Plan: -On xarelto -toprol bid -ekg Code(s): I48.91 - UNSPECIFIED ATRIAL FIBRILLATION Qualifiers: Atrial fibrillation type: chronic Qualified Code(s): I48.2 - Chronic atrial fibrillation
[2017-11-14 08:16] LABS: ALBUMIN 2.9 g/dl (3.4-5.0); ALK PHOS 49 U/L (45-117); ANION GAP 9 MMOL/L (8-16); BILIRUBIN,TOTAL 0.3 mg/dL (0.2-1.0); BLOOD UREA NITROGEN 46 mg/dL (7-18); CALCIUM 8.7 mg/dL (8.5-10.1); CHLORIDE 100 mmol/L (98-107); CO2 30 mmol/L (21-32); CREATININE 1.4 mg/dL (0.7-1.3); GLUCOSE,RANDOM 93 mg/dL (74-106); POTASSIUM 4.3 mmol/L (3.5-5.1); SGOT/AST 11 U/L (15-37); SGPT/ALT 20 U/L (12-78); SODIUM 139 mmol/L (136-145); TOT PROT 6.3 g/dl (6.4-8.2)
[2017-11-14] MEDS: TAMSULOSIN HCL 0.4 MG CAP.ER.24H (FP) PO SCH (08:26)
[2017-11-14] MEDS: ALBUTEROL SO4 2.5/IPRATROPIUM 0.5 INH SOL 3 ML VIAL.NEB. NEB SCH ×4 (09:04→20:27)
[2017-11-14] MEDS: DULoxetine HCL 30 MG CAPSULE.DR (FP) PO SCH (09:10)
[2017-11-14] MEDS: PANTOPRAZOLE 40 MG TABLET (FP) PO SCH (09:10)
[2017-11-14] MEDS: predniSONE 20 MG TABLET (UD) PO SCH ×2 (09:10→23:09)
[2017-11-14] MEDS: ISOSORBIDE MONONITRATE 30 MG TAB.SR.24H (FP) PO SCH (09:10)
[2017-11-14] MEDS: FUROSEMIDE 40 MG TABLET (FP) PO SCH (09:10)
[2017-11-14] MEDS: FLUOCINONIDE 0.05% CREAM (15 GM TUBE) TP SCH ×2 (09:12→23:11)
[2017-11-14] MEDS: METHYL SALICYLATE/MENTHOL OINT 30 GM TUBE TP SCH ×2 (09:13→23:09)
--- NOTE | 2017-11-14 09:37 | PN ---
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, Physician Chief Complaint: Cardiology f/u with Dr. Hines History of Present Illness: Rapid afib starting overnight despite addition of amiodarone and IV Lopressor. Asymptomatic. - Current Medication List Current Medications: Active Medications Acetaminophen (Tylenol -) 650 mg PO Q6H PRN PRN Reason: PAIN OR FEVER Last Admin: 11/13/17 22:11 Dose: 650 mg Albuterol/Ipratropium (Duoneb -) 1 amp NEB RQID [facility] Last Admin: 11/14/17 09:04 Dose: 1 amp Amiodarone HCl (Cordarone -) 200 mg PO BID [facility] Last Admin: 11/14/17 05:49 Dose: Not Given Atorvastatin Calcium (Lipitor -) 20 mg PO HS [facility] Last Admin: 11/13/17 22:10 Dose: 20 mg Duloxetine HCl (Cymbalta -) 60 mg PO DAILY [facility] Last Admin: 11/14/17 09:10 Dose: 60 mg Fluocinonide (Lidex 0.05% Cream -) 1 applic TP BID [facility] Last Admin: 11/14/17 09:12 Dose: 1 applic Furosemide (Lasix -) 20 mg PO DAILY [facility] Last Admin: 11/14/17 09:10 Dose: 20 mg Isosorbide Mononitrate (Imdur -) 30 mg PO DAILY [facility] Last Admin: 11/14/17 09:10 Dose: 30 mg Lisinopril (Prinivil) 40 mg PO DAILY [facility] Last Admin: 11/13/17 10:16 Dose: 40 mg Methyl Salicylate (Alexy-Santos -) 1 applic TP BID [facility] Last Admin: 11/14/17 09:13 Dose: Not Given Metoprolol Succinate (Toprol Xl -) 50 mg PO BID [facility] Last Admin: 11/14/17 09:02 Dose: Not Given Pantoprazole Sodium (Protonix -) 40 mg PO DAILY [facility] Last Admin: 11/14/17 09:10 Dose: 40 mg Prednisone (Deltasone -) 40 mg PO BID [facility] Last Admin: 11/14/17 09:10 Dose: 40 mg Pregabalin (Lyrica -) 100 mg PO TID [facility] Last Admin: 11/14/17 05:47 Dose: 100 mg Rivaroxaban (Xarelto -) 20 mg PO DAILY@1800 [facility] Last Admin: 11/13/17 18:42 Dose: 20 mg Tamsulosin HCl (Flomax -) 0.4 mg PO DAILY@0830 [facility] Last Admin: 11/14/17 08:26 Dose: 0.4 mg - Objective Vital Signs: Vital Signs Temperature 97.5 F L 11/14/17 02:00 Pulse Rate 135 H 11/14/17 03:58 Respiratory Rate 18 11/14/17 02:00 Blood Pressure 113/77 11/14/17 03:58 O2 Sat by Pulse Oximetry (%) 91 L 11/14/17 08:33 Constitutional: Yes: No Distress, Calm, Thin Neck: Yes: Supple Cardiovascular: Yes: Tachycardia, Pulse Irregular Respiratory: Yes: Regular, Diminished, On Nasal O2 Gastrointestinal: Yes: Normal Bowel Sounds, Soft Edema: No Labs: CBC, BMP 11/14/17 07:00 11/14/17 07:00 - ....Imaging EKG: Report Reviewed (EKG: Rapid afib v-paced @ 144) Assessment/Plan - Problems (1) COPD (chronic obstructive pulmonary disease) Code(s): J44.9 - CHRONIC OBSTRUCTIVE PULMONARY DISEASE, UNSPECIFIED Qualifiers: COPD type: COPD with acute exacerbation Qualified Code(s): J44.1 - Chronic obstructive pulmonary disease with (acute) exacerbation (2) COPD exacerbation Code(s): J44.1 - CHRONIC OBSTRUCTIVE PULMONARY DISEASE W (ACUTE) EXACERBATION (3) History of aortic aneurysm repair Code(s): Z98.890 - OTHER SPECIFIED POSTPROCEDURAL STATES; Z86.79 - PERSONAL HISTORY OF OTHER DISEASES OF THE CIRCULATORY SYSTEM (4) History of arterial bypass of lower extremity Code(s): Z95.828 - PRESENCE OF OTHER VASCULAR IMPLANTS AND GRAFTS (5) PAD (peripheral artery disease) Code(s): I73.9 - PERIPHERAL VASCULAR DISEASE, UNSPECIFIED (6) Afib Code(s): I48.91 - UNSPECIFIED ATRIAL FIBRILLATION Qualifiers: Atrial fibrillation type: chronic Qualified Code(s): I48.2 - Chronic atrial fibrillation (7) CAD (coronary artery disease) Code(s): I25.10 - ATHSCL HEART DISEASE OF [place] CORONARY ARTERY W/O ANG PCTRS Qualifiers: Coronary Disease-Associated Artery/Lesion type: [place] artery (8) History of permanent cardiac pacemaker placement Code(s): Z95.0 - PRESENCE OF CARDIAC PACEMAKER (9) Hx of CABG Code(s): Z95.1 - PRESENCE OF AORTOCORONARY BYPASS GRAFT Assessment/Plan IMP: 1. Acute on chronic hypoxemic respiratory failure referable to acute exacerbation of COPD, resolving 2. CAD post CABG post PCI/stents angina pectoris 3. Post [employer]USE[employer]-P ICM declined ICD, with improvement in LVEF 4. Paroxysmal atrial fibrillation [id number] score of 5 on Xarelto with rapid ventricular response 5. Advanced PAD 6. History of thoracic, abdominal and right internal iliac aneurysms 7. HTN 8. Hypercholesterolemia PLAN: 1. Continue Xarelto at 20 mg daily, if GFR remains below 50, dose to be decreased to 15 mg daily 2. Continue Toprol XL 50 bid, Imdur 30 qd, Lisinopril 20 qd and Lipitor 20 qhs, added amio 200 bid, will add cardizem for rate-control 3. Decrease Lasix 20 po qd (home dose) 4. Oral steroid taper with GI protection, BD, O2 as needed. 5. Interrogate pacer as pacemaker is tracking afib above usual tracking HR limits of 120 bpm
--- NOTE | 2017-11-14 10:08 | PN ---
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, Physician History of Present Illness: PULMONARY ALERT,C/O SOB TODAY,+RAPID A-FIB LAST NIGHT - Current Medication List Current Medications: Active Medications Acetaminophen (Tylenol -) 650 mg PO Q6H PRN PRN Reason: PAIN OR FEVER Last Admin: 11/13/17 22:11 Dose: 650 mg Albuterol/Ipratropium (Duoneb -) 1 amp NEB RQID [facility] Last Admin: 11/14/17 09:04 Dose: 1 amp Amiodarone HCl (Cordarone -) 200 mg PO BID [facility] Last Admin: 11/14/17 05:49 Dose: Not Given Atorvastatin Calcium (Lipitor -) 20 mg PO HS [facility] Last Admin: 11/13/17 22:10 Dose: 20 mg Diltiazem HCl (Cardizem -) 30 mg PO Q6HPO [facility] Diltiazem HCl (Cardizem Injection -) 10 mg IVPUSH ONCE ONE Stop: 11/14/17 09:59 Duloxetine HCl (Cymbalta -) 60 mg PO DAILY [facility] Last Admin: 11/14/17 09:10 Dose: 60 mg Fluocinonide (Lidex 0.05% Cream -) 1 applic TP BID [facility] Last Admin: 11/14/17 09:12 Dose: 1 applic Furosemide (Lasix -) 20 mg PO DAILY [facility] Last Admin: 11/14/17 09:10 Dose: 20 mg Isosorbide Mononitrate (Imdur -) 30 mg PO DAILY [facility] Last Admin: 11/14/17 09:10 Dose: 30 mg Lisinopril (Prinivil) 40 mg PO DAILY [facility] Last Admin: 11/13/17 10:16 Dose: 40 mg Methyl Salicylate (Alexy-Santos -) 1 applic TP BID [facility] Last Admin: 11/14/17 09:13 Dose: Not Given Metoprolol Succinate (Toprol Xl -) 50 mg PO BID [facility] Last Admin: 11/14/17 09:02 Dose: Not Given Pantoprazole Sodium (Protonix -) 40 mg PO DAILY [facility] Last Admin: 11/14/17 09:10 Dose: 40 mg Prednisone (Deltasone -) 40 mg PO BID [facility] Last Admin: 11/14/17 09:10 Dose: 40 mg Pregabalin (Lyrica -) 100 mg PO TID [facility] Last Admin: 11/14/17 05:47 Dose: 100 mg Rivaroxaban (Xarelto -) 20 mg PO DAILY@1800 [facility] Last Admin: 11/13/17 18:42 Dose: 20 mg Tamsulosin HCl (Flomax -) 0.4 mg PO DAILY@0830 [facility] Last Admin: 11/14/17 08:26 Dose: 0.4 mg - Objective Vital Signs: Vital Signs Temperature 97.5 F L 11/14/17 02:00 Pulse Rate 135 H 11/14/17 03:58 Respiratory Rate 18 11/14/17 02:00 Blood Pressure 113/77 11/14/17 03:58 O2 Sat by Pulse Oximetry (%) 91 L 11/14/17 08:33 Constitutional: Yes: Well Nourished, Calm Eyes: Yes: WNL HENT: Yes: WNL Neck: Yes: WNL Cardiovascular: Yes: Tachycardia, Pulse Irregular, S1, S2 Respiratory: Yes: Rales (CRACKLES LEFT BASE) Gastrointestinal: Yes: Normal Bowel Sounds, Soft Extremities: Yes: WNL Edema: No Labs: CBC, BMP 11/14/17 07:00 11/14/17 07:00 Problem List - Problems (1) Acute and chronic respiratory failure with hypoxia Code(s): J96.21 - ACUTE AND CHRONIC RESPIRATORY FAILURE WITH HYPOXIA (2) COPD (chronic obstructive pulmonary disease) Code(s): J44.9 - CHRONIC OBSTRUCTIVE PULMONARY DISEASE, UNSPECIFIED Qualifiers: COPD type: COPD with acute exacerbation Qualified Code(s): J44.1 - Chronic obstructive pulmonary disease with (acute) exacerbation (3) COPD exacerbation Code(s): J44.1 - CHRONIC OBSTRUCTIVE PULMONARY DISEASE W (ACUTE) EXACERBATION (4) History of arterial bypass of lower extremity Code(s): Z95.828 - PRESENCE OF OTHER VASCULAR IMPLANTS AND GRAFTS (5) Old cerebrovascular accident (CVA) without late effect Code(s): Z86.73 - PRSNL HX OF TIA (TIA), AND CEREB INFRC W/O RESID DEFICITS (6) PAD (peripheral artery disease) Code(s): I73.9 - PERIPHERAL VASCULAR DISEASE, UNSPECIFIED (7) SOB (shortness of breath) Code(s): R06.02 - SHORTNESS OF BREATH (8) Afib Code(s): I48.91 - UNSPECIFIED ATRIAL FIBRILLATION Qualifiers: Atrial fibrillation type: chronic Qualified Code(s): I48.2 - Chronic atrial fibrillation (9) CAD (coronary artery disease) Code(s): I25.10 - ATHSCL HEART DISEASE OF [place] CORONARY ARTERY W/O ANG PCTRS Qualifiers: Coronary Disease-Associated Artery/Lesion type: [place] artery (10) Hx of CABG Code(s): Z95.1 - PRESENCE OF AORTOCORONARY BYPASS GRAFT (11) Hyperlipidemia Code(s): E78.5 - HYPERLIPIDEMIA, UNSPECIFIED Qualifiers: (12) Hypertension Code(s): I10 - ESSENTIAL (PRIMARY) HYPERTENSION Qualifiers: Hypertension type: essential hypertension Qualified Code(s): I10 - Essential (primary) hypertension (13) Peripheral artery disease Code(s): I73.9 - PERIPHERAL VASCULAR DISEASE, UNSPECIFIED Assessment/Plan IMP ACUTE ON CHRONIC HYPOXEMIC RESPIRATORY FAILURE IMPROVING COPD O2 DEPENDENT ASHD S/P CABG,S/P STENTS PVD CHF AFIB HTN PLAN PREDNISONE INHALED BRONCHODILATORS NIPPV NEEDED O2 LASIX AC CHEST X-RAY RATE CONTROL PER CARDIOLOGY OUTPATIENT PULMONARY REHAB DR JEFFERSON Problem List - Problems (1) Acute and chronic respiratory failure with hypoxia Code(s): J96.21 - ACUTE AND CHRONIC RESPIRATORY FAILURE WITH HYPOXIA (2) COPD (chronic obstructive pulmonary disease) Code(s): J44.9 - CHRONIC OBSTRUCTIVE PULMONARY DISEASE, UNSPECIFIED Qualifiers: COPD type: COPD with acute exacerbation Qualified Code(s): J44.1 - Chronic obstructive pulmonary disease with (acute) exacerbation (3) COPD exacerbation Code(s): J44.1 - CHRONIC OBSTRUCTIVE PULMONARY DISEASE W (ACUTE) EXACERBATION (4) History of arterial bypass of lower extremity Code(s): Z95.828 - PRESENCE OF OTHER VASCULAR IMPLANTS AND GRAFTS (5) Old cerebrovascular accident (CVA) without late effect Code(s): Z86.73 - PRSNL HX OF TIA (TIA), AND CEREB INFRC W/O RESID DEFICITS (6) PAD (peripheral artery disease) Code(s): I73.9 - PERIPHERAL VASCULAR DISEASE, UNSPECIFIED (7) SOB (shortness of breath) Code(s): R06.02 - SHORTNESS OF BREATH (8) Afib Code(s): I48.91 - UNSPECIFIED ATRIAL FIBRILLATION Qualifiers: Atrial fibrillation type: chronic Qualified Code(s): I48.2 - Chronic atrial fibrillation (9) CAD (coronary artery disease) Code(s): I25.10 - ATHSCL HEART DISEASE OF [place] CORONARY ARTERY W/O ANG PCTRS Qualifiers: Coronary Disease-Associated Artery/Lesion type: [place] artery (10) Hx of CABG Code(s): Z95.1 - PRESENCE OF AORTOCORONARY BYPASS GRAFT (11) Hyperlipidemia Code(s): E78.5 - HYPERLIPIDEMIA, UNSPECIFIED Qualifiers: (12) Hypertension Code(s): I10 - ESSENTIAL (PRIMARY) HYPERTENSION Qualifiers: Hypertension type: essential hypertension Qualified Code(s): I10 - Essential (primary) hypertension (13) Peripheral artery disease Code(s): I73.9 - PERIPHERAL VASCULAR DISEASE, UNSPECIFIED
[2017-11-14] MEDS ORDERED: dilTIAZem HCL 30 MG TABLET (FP) PO SCH (10:15)
[2017-11-14] MEDS ORDERED: dilTIAZem HCL 50 MG/10 ML - 10 ML VIAL IVPUSH ONE ×2 (10:15→12:30)
[2017-11-14] MEDS: LISINOPRIL 20 MG TABLET (FP) PO SCH (11:07)
[2017-11-14] MEDS ORDERED: DILTIAZEM INJECTION 125 MG in SODIUM CHLORIDE 100 ML IVPB SCH (12:30)
--- NOTE | 2017-11-14 15:17 | EKG ---
Test Reason : Blood Pressure : / mmHG Vent. Rate : 143 BPM Atrial Rate : 101 BPM P-R Int : 000 ms QRS Dur : 144 ms QT Int : 344 ms P-R-T Axes : 000 -80 123 degrees QTc Int : 530 ms ATRIAL FIBRILLATION WITH RAPID VENTRICULAR RESPONSE WITH FREQUENT biventricular paced complexes NON-SPECIFIC INTRA-VENTRICULAR CONDUCTION BLOCK INFERIOR INFARCT , AGE UNDETERMINED ANTEROLATERAL INFARCT , AGE UNDETERMINED ABNORMAL ECG WHEN COMPARED WITH ECG OF 14-NOV-2017 03:30, NO SIGNIFICANT CHANGE WAS FOUND Confirmed by Alexandria García ([id number]) on 11/14/2017 3:17:38 PM Referred By: TAYLA ONOFRE DR Confirmed By:Alexandria García
--- NOTE | 2017-11-14 15:32 | EKG ---
Test Reason : Blood Pressure : / mmHG Vent. Rate : 144 BPM Atrial Rate : 133 BPM P-R Int : 000 ms QRS Dur : 144 ms QT Int : 352 ms P-R-T Axes : 000 -84 125 degrees QTc Int : 545 ms ATRIAL FIBRILLATION WITH RAPID VENTRICULAR RESPONSE with biventricular paced complexes ABNORMAL ECG WHEN COMPARED WITH ECG OF 08-NOV-2017 08:47, VENT. RATE HAS INCREASED BY 68 BPM Confirmed by Alexandria García ([id number]) on 11/14/2017 3:31:38 PM Referred By: Hermes MEZA Confirmed By:Alexandria García
--- NOTE | 2017-11-14 16:25 | PN ---
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, Physician History of Present Illness: Pt seen and examined at bedside. He is awake and alert. He did have some shortness of breath. - Current Medication List Current Medications: Active Medications Acetaminophen (Tylenol -) 650 mg PO Q6H PRN PRN Reason: PAIN OR FEVER Last Admin: 11/13/17 22:11 Dose: 650 mg Albuterol/Ipratropium (Duoneb -) 1 amp NEB RQID [facility] Last Admin: 11/14/17 12:17 Dose: 1 amp Amiodarone HCl (Cordarone -) 200 mg PO BID [facility] Last Admin: 11/14/17 05:49 Dose: Not Given Atorvastatin Calcium (Lipitor -) 20 mg PO HS [facility] Last Admin: 11/13/17 22:10 Dose: 20 mg Duloxetine HCl (Cymbalta -) 60 mg PO DAILY [facility] Last Admin: 11/14/17 09:10 Dose: 60 mg Fluocinonide (Lidex 0.05% Cream -) 1 applic TP BID [facility] Last Admin: 11/14/17 09:12 Dose: 1 applic Furosemide (Lasix -) 20 mg PO DAILY [facility] Last Admin: 11/14/17 09:10 Dose: 20 mg Diltiazem HCl 125 mg/ Sodium (Chloride) 125 mls @ 5 mls/hr IVPB TITR [facility]; Protocol Last Admin: 11/14/17 13:02 Dose: 5 mg/hr, 5 mls/hr Isosorbide Mononitrate (Imdur -) 30 mg PO DAILY [facility] Last Admin: 11/14/17 09:10 Dose: 30 mg Lisinopril (Prinivil) 40 mg PO DAILY [facility] Last Admin: 11/14/17 11:07 Dose: Not Given Methyl Salicylate (Alexy-Santos -) 1 applic TP BID [facility] Last Admin: 11/14/17 09:13 Dose: Not Given Metoprolol Succinate (Toprol Xl -) 50 mg PO BID [facility] Last Admin: 11/14/17 09:02 Dose: Not Given Pantoprazole Sodium (Protonix -) 40 mg PO DAILY [facility] Last Admin: 11/14/17 09:10 Dose: 40 mg Prednisone (Deltasone -) 40 mg PO BID [facility] Last Admin: 11/14/17 09:10 Dose: 40 mg Pregabalin (Lyrica -) 100 mg PO TID [facility] Last Admin: 11/14/17 15:21 Dose: 100 mg Rivaroxaban (Xarelto -) 20 mg PO DAILY@1800 [facility] Last Admin: 11/13/17 18:42 Dose: 20 mg Tamsulosin HCl (Flomax -) 0.4 mg PO DAILY@0830 [facility] Last Admin: 11/14/17 08:26 Dose: 0.4 mg - Objective Vital Signs: Vital Signs Temperature 97.8 F 11/14/17 14:00 Pulse Rate 97 H 11/14/17 14:00 Respiratory Rate 20 11/14/17 14:00 Blood Pressure 94/48 11/14/17 14:00 O2 Sat by Pulse Oximetry (%) 93 L 11/14/17 09:00 Constitutional: Yes: Calm Eyes: Yes: Conjunctiva Clear HENT: Yes: Atraumatic Neck: Yes: Supple Cardiovascular: Yes: S1, S2 Respiratory: Yes: On Nasal O2 Gastrointestinal: Yes: Soft Genitourinary: Yes: WNL Musculoskeletal: Yes: WNL Edema: No Neurological: Yes: Oriented Psychiatric: Yes: Oriented Labs: CBC, BMP 11/14/17 07:00 11/14/17 07:00 Problem List - Problems (1) Acute and chronic respiratory failure with hypoxia Code(s): J96.21 - ACUTE AND CHRONIC RESPIRATORY FAILURE WITH HYPOXIA (2) CHF (congestive heart failure) Code(s): I50.9 - HEART FAILURE, UNSPECIFIED (3) COPD exacerbation Code(s): J44.1 - CHRONIC OBSTRUCTIVE PULMONARY DISEASE W (ACUTE) EXACERBATION (4) Azotemia Code(s): R79.89 - OTHER SPECIFIED ABNORMAL FINDINGS OF BLOOD CHEMISTRY (5) CAD (coronary artery disease) Code(s): I25.10 - ATHSCL HEART DISEASE OF [place] CORONARY ARTERY W/O ANG PCTRS Qualifiers: Coronary Disease-Associated Artery/Lesion type: [place] artery Associated angina: with stable angina Assessment/Plan Current Medications Generic Name Dose Route Start Last Admin Trade Name Freq PRN Reason Stop Dose Admin Acetaminophen 650 mg 11/08/17 17:24 11/13/17 22:11 Tylenol - PO 650 mg Q6H PRN Administration PAIN OR FEVER Albuterol/Ipratropium 1 amp 11/08/17 16:00 11/14/17 12:17 Duoneb - NEB 1 amp RQID [facility] Administration Amiodarone HCl 200 mg 11/14/17 05:45 11/14/17 05:49 Cordarone - PO Not Given BID [facility] Atorvastatin Calcium 20 mg 11/08/17 22:00 11/13/17 22:10 Lipitor - PO 20 mg HS [facility] Administration Duloxetine HCl 60 mg 11/09/17 10:00 11/14/17 09:10 Cymbalta - PO 60 mg DAILY [facility] Administration Fluocinonide 1 applic 11/08/17 22:00 11/14/17 09:12 Lidex 0.05% Cream - TP 1 applic BID [facility] Administration Furosemide 20 mg 11/14/17 10:00 11/14/17 09:10 Lasix - PO 20 mg DAILY [facility] Administration Diltiazem HCl 125 mg/ Sodium 125 mls @ 5 mls/hr 11/14/17 12:30 11/14/17 13:02 Chloride IVPB 5 mg/hr TITR [facility] 5 mls/hr Administration Protocol 5 MG/HR Isosorbide Mononitrate 30 mg 11/12/17 12:00 11/14/17 09:10 Imdur - PO 30 mg DAILY [facility] Administration Lisinopril 40 mg 11/13/17 10:00 11/14/17 11:07 Prinivil PO Not Given DAILY [facility] Methyl Salicylate 1 applic 11/08/17 22:00 11/14/17 09:13 Alexy-Santos - TP Not Given BID [facility] Metoprolol Succinate 50 mg 11/14/17 10:00 11/14/17 09:02 Toprol Xl - PO Not Given BID [facility] Pantoprazole Sodium 40 mg 11/09/17 10:00 11/14/17 09:10 Protonix - PO 40 mg DAILY [facility] Administration Prednisone 40 mg 11/13/17 09:30 11/14/17 09:10 Deltasone - PO 40 mg BID [facility] Administration Pregabalin 100 mg 11/08/17 15:15 11/14/17 15:21 Lyrica - PO 100 mg TID [facility] Administration Rivaroxaban 20 mg 11/08/17 18:00 11/13/17 18:42 Xarelto - PO 20 mg DAILY@1800 [facility] Administration Tamsulosin HCl 0.4 mg 11/09/17 08:30 11/14/17 08:26 Flomax - PO 0.4 mg DAILY@0830 [facility] Administration Impression 1. CKD 2. COPD exacerbation 3. AAA 4. hx CVA 5. a-fib 6. HTN 7. insomnia 8. hypoxic resp failure 9. CAD 10. BPH 12. microscopic hematuria Plan - labs reviewed - cont current meds - monitor renal function - cont steve - steroids with taper - monitor pulse ox - cont oxygen
[2017-11-14] MEDS: RIVAROXABAN 20 MG TABLET PO SCH (18:08)
[2017-11-14] MEDS: ATORVASTATIN CA 20 MG TABLET (FP) PO SCH (23:09)
[2017-11-15] MEDS: PREGABALIN 100 MG CAPSULE PO SCH (06:59)
[2017-11-15] MEDS: ALBUTEROL SO4 2.5/IPRATROPIUM 0.5 INH SOL 3 ML VIAL.NEB. NEB SCH (07:44)
--- NOTE | 2017-11-15 08:57 | PN ---
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, Physician Chief Complaint: Cardiology f/u with Dr. Hines History of Present Illness: A-V paced with rate-control on Cardizem gtt. - Current Medication List Current Medications: Active Medications Acetaminophen (Tylenol -) 650 mg PO Q6H PRN PRN Reason: PAIN OR FEVER Last Admin: 11/13/17 22:11 Dose: 650 mg Albuterol/Ipratropium (Duoneb -) 1 amp NEB RQID [facility] Last Admin: 11/15/17 07:44 Dose: 1 amp Amiodarone HCl (Cordarone -) 200 mg PO BID [facility] Last Admin: 11/14/17 23:09 Dose: 200 mg Atorvastatin Calcium (Lipitor -) 20 mg PO HS [facility] Last Admin: 11/14/17 23:09 Dose: 20 mg Duloxetine HCl (Cymbalta -) 60 mg PO DAILY [facility] Last Admin: 11/14/17 09:10 Dose: 60 mg Fluocinonide (Lidex 0.05% Cream -) 1 applic TP BID [facility] Last Admin: 11/14/17 23:11 Dose: 1 applic Furosemide (Lasix -) 20 mg PO DAILY [facility] Last Admin: 11/14/17 09:10 Dose: 20 mg Diltiazem HCl 125 mg/ Sodium (Chloride) 125 mls @ 5 mls/hr IVPB TITR [facility]; Protocol Last Admin: 11/14/17 13:02 Dose: 5 mg/hr, 5 mls/hr Isosorbide Mononitrate (Imdur -) 30 mg PO DAILY [facility] Last Admin: 11/14/17 09:10 Dose: 30 mg Lisinopril (Prinivil) 40 mg PO DAILY [facility] Last Admin: 11/14/17 11:07 Dose: Not Given Methyl Salicylate (Alexy-Santos -) 1 applic TP BID [facility] Last Admin: 11/14/17 23:09 Dose: Not Given Metoprolol Succinate (Toprol Xl -) 50 mg PO BID [facility] Last Admin: 11/14/17 23:09 Dose: 50 mg Pantoprazole Sodium (Protonix -) 40 mg PO DAILY [facility] Last Admin: 11/14/17 09:10 Dose: 40 mg Prednisone (Deltasone -) 40 mg PO BID [facility] Last Admin: 11/14/17 23:09 Dose: 40 mg Pregabalin (Lyrica -) 100 mg PO TID [facility] Last Admin: 11/15/17 06:59 Dose: 100 mg Rivaroxaban (Xarelto -) 20 mg PO DAILY@1800 [facility] Last Admin: 11/14/17 18:08 Dose: 20 mg Tamsulosin HCl (Flomax -) 0.4 mg PO DAILY@0830 [facility] Last Admin: 11/14/17 08:26 Dose: 0.4 mg - Objective Vital Signs: Vital Signs Temperature 97.4 F L 11/15/17 02:00 Pulse Rate 63 11/15/17 06:00 Respiratory Rate 20 11/15/17 06:00 Blood Pressure 116/81 11/15/17 06:00 O2 Sat by Pulse Oximetry (%) 91 L 11/14/17 21:00 Constitutional: Yes: No Distress, Calm Neck: Yes: Supple Cardiovascular: Yes: Regular Rate and Rhythm Respiratory: Yes: Regular, Diminished, On Nasal O2 Gastrointestinal: Yes: Normal Bowel Sounds, Soft Edema: No Labs: CBC, BMP 11/14/17 07:00 11/14/17 07:00 - ....Imaging EKG: Report Reviewed (Tele: A-V paced) Assessment/Plan - Problems (1) COPD (chronic obstructive pulmonary disease) Code(s): J44.9 - CHRONIC OBSTRUCTIVE PULMONARY DISEASE, UNSPECIFIED Qualifiers: COPD type: COPD with acute exacerbation Qualified Code(s): J44.1 - Chronic obstructive pulmonary disease with (acute) exacerbation (2) COPD exacerbation Code(s): J44.1 - CHRONIC OBSTRUCTIVE PULMONARY DISEASE W (ACUTE) EXACERBATION (3) History of aortic aneurysm repair Code(s): Z98.890 - OTHER SPECIFIED POSTPROCEDURAL STATES; Z86.79 - PERSONAL HISTORY OF OTHER DISEASES OF THE CIRCULATORY SYSTEM (4) History of arterial bypass of lower extremity Code(s): Z95.828 - PRESENCE OF OTHER VASCULAR IMPLANTS AND GRAFTS (5) PAD (peripheral artery disease) Code(s): I73.9 - PERIPHERAL VASCULAR DISEASE, UNSPECIFIED (6) Afib Code(s): I48.91 - UNSPECIFIED ATRIAL FIBRILLATION Qualifiers: Atrial fibrillation type: chronic Qualified Code(s): I48.2 - Chronic atrial fibrillation (7) CAD (coronary artery disease) Code(s): I25.10 - ATHSCL HEART DISEASE OF [place] CORONARY ARTERY W/O ANG PCTRS Qualifiers: Coronary Disease-Associated Artery/Lesion type: [place] artery (8) History of permanent cardiac pacemaker placement Code(s): Z95.0 - PRESENCE OF CARDIAC PACEMAKER (9) Hx of CABG Code(s): Z95.1 - PRESENCE OF AORTOCORONARY BYPASS GRAFT Assessment/Plan IMP: 1. Acute on chronic hypoxemic respiratory failure referable to acute exacerbation of COPD, resolving 2. CAD post CABG post PCI/stents angina pectoris 3. Post COMPUTATIONAL CHEMIST-P ICM declined ICD, with improvement in LVEF 4. Paroxysmal atrial fibrillation [id number] score of 5 on Xarelto with rapid ventricular response 5. Advanced PAD 6. History of thoracic, abdominal and right internal iliac aneurysms 7. HTN 8. Hypercholesterolemia 9. CKD PLAN: 1. Continue Xarelto at 20 mg daily, if GFR remains below 50, dose to be decreased to 15 mg daily 2. Continue Toprol XL 50 bid, Imdur 30 qd, Lisinopril 20 qd and Lipitor 20 qhs, added amio 200 bid, d/c Cardizem 3. Decrease Lasix 20 po qd (home dose) 4. Oral steroid taper with GI protection, BD, O2 as needed. 5. Pacer interrogation noted 6. Ambulate and check saO2
[2017-11-15] MEDS: TAMSULOSIN HCL 0.4 MG CAP.ER.24H (FP) PO SCH (09:46)
[2017-11-15] MEDS: DULoxetine HCL 30 MG CAPSULE.DR (FP) PO SCH (09:46)
[2017-11-15] MEDS: METHYL SALICYLATE/MENTHOL OINT 30 GM TUBE TP SCH (09:46)
[2017-11-15] MEDS: FUROSEMIDE 40 MG TABLET (FP) PO SCH (09:47)
[2017-11-15] MEDS: PANTOPRAZOLE 40 MG TABLET (FP) PO SCH (09:47)
[2017-11-15] MEDS: ISOSORBIDE MONONITRATE 30 MG TAB.SR.24H (FP) PO SCH (09:47)
[2017-11-15] MEDS: predniSONE 20 MG TABLET (UD) PO SCH (09:47)
[2017-11-15] MEDS: LISINOPRIL 20 MG TABLET (FP) PO SCH (09:48)
[2017-11-15] MEDS: FLUOCINONIDE 0.05% CREAM (15 GM TUBE) TP SCH (09:52)
[2017-11-15 10:41] VITALS: BP 122/74; PULSE 58; TEMP 98.6
--- NOTE | 2017-11-15 10:48 | PN ---
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, Physician History of Present Illness: PULMONARY ALERT,OOB-CHAIR FEELING BETTER,SOB IMPROVED - Current Medication List Current Medications: Active Medications Acetaminophen (Tylenol -) 650 mg PO Q6H PRN PRN Reason: PAIN OR FEVER Last Admin: 11/13/17 22:11 Dose: 650 mg Albuterol/Ipratropium (Duoneb -) 1 amp NEB RQID [facility] Last Admin: 11/15/17 07:44 Dose: 1 amp Atorvastatin Calcium (Lipitor -) 20 mg PO HS [facility] Last Admin: 11/14/17 23:09 Dose: 20 mg Duloxetine HCl (Cymbalta -) 60 mg PO DAILY [facility] Last Admin: 11/15/17 09:46 Dose: 60 mg Fluocinonide (Lidex 0.05% Cream -) 1 applic TP BID [facility] Last Admin: 11/15/17 09:52 Dose: 1 applic Furosemide (Lasix -) 20 mg PO DAILY [facility] Last Admin: 11/15/17 09:47 Dose: 20 mg Isosorbide Mononitrate (Imdur -) 30 mg PO DAILY [facility] Last Admin: 11/15/17 09:47 Dose: 30 mg Lisinopril (Prinivil) 40 mg PO DAILY [facility] Last Admin: 11/15/17 09:48 Dose: 40 mg Methyl Salicylate (Alexy-Santos -) 1 applic TP BID [facility] Last Admin: 11/15/17 09:46 Dose: Not Given Metoprolol Succinate (Toprol Xl -) 50 mg PO BID [facility] Last Admin: 11/15/17 09:48 Dose: 50 mg Pantoprazole Sodium (Protonix -) 40 mg PO DAILY [facility] Last Admin: 11/15/17 09:47 Dose: 40 mg Prednisone (Deltasone -) 40 mg PO BID [facility] Last Admin: 11/15/17 09:47 Dose: 40 mg Pregabalin (Lyrica -) 100 mg PO TID [facility] Last Admin: 11/15/17 06:59 Dose: 100 mg Rivaroxaban (Xarelto -) 20 mg PO DAILY@1800 [facility] Last Admin: 11/14/17 18:08 Dose: 20 mg Tamsulosin HCl (Flomax -) 0.4 mg PO DAILY@0830 [facility] Last Admin: 11/15/17 09:46 Dose: 0.4 mg - Objective Vital Signs: Vital Signs Temperature 98.6 F 11/15/17 09:39 Pulse Rate 58 L 11/15/17 09:39 Respiratory Rate 20 11/15/17 09:39 Blood Pressure 122/74 11/15/17 09:39 O2 Sat by Pulse Oximetry (%) 92 L 11/15/17 09:39 Constitutional: Yes: Well Nourished, Calm Eyes: Yes: WNL HENT: Yes: WNL Neck: Yes: WNL Cardiovascular: Yes: Pulse Irregular, S1, S2 Respiratory: Yes: Rales (BIBASAILAR RALES) Gastrointestinal: Yes: Normal Bowel Sounds, Soft Extremities: Yes: WNL Edema: No Labs: CBC, BMP Problem List - Problems (1) Acute and chronic respiratory failure with hypoxia Code(s): J96.21 - ACUTE AND CHRONIC RESPIRATORY FAILURE WITH HYPOXIA (2) COPD (chronic obstructive pulmonary disease) Code(s): J44.9 - CHRONIC OBSTRUCTIVE PULMONARY DISEASE, UNSPECIFIED Qualifiers: COPD type: COPD with acute exacerbation Qualified Code(s): J44.1 - Chronic obstructive pulmonary disease with (acute) exacerbation (3) COPD exacerbation Code(s): J44.1 - CHRONIC OBSTRUCTIVE PULMONARY DISEASE W (ACUTE) EXACERBATION (4) History of arterial bypass of lower extremity Code(s): Z95.828 - PRESENCE OF OTHER VASCULAR IMPLANTS AND GRAFTS (5) Old cerebrovascular accident (CVA) without late effect Code(s): Z86.73 - PRSNL HX OF TIA (TIA), AND CEREB INFRC W/O RESID DEFICITS (6) PAD (peripheral artery disease) Code(s): I73.9 - PERIPHERAL VASCULAR DISEASE, UNSPECIFIED (7) SOB (shortness of breath) Code(s): R06.02 - SHORTNESS OF BREATH (8) Afib Code(s): I48.91 - UNSPECIFIED ATRIAL FIBRILLATION Qualifiers: Atrial fibrillation type: chronic Qualified Code(s): I48.2 - Chronic atrial fibrillation (9) CAD (coronary artery disease) Code(s): I25.10 - ATHSCL HEART DISEASE OF [place] CORONARY ARTERY W/O ANG PCTRS Qualifiers: Coronary Disease-Associated Artery/Lesion type: [place] artery (10) Hx of CABG Code(s): Z95.1 - PRESENCE OF AORTOCORONARY BYPASS GRAFT (11) Hyperlipidemia Code(s): E78.5 - HYPERLIPIDEMIA, UNSPECIFIED Qualifiers: (12) Hypertension Code(s): I10 - ESSENTIAL (PRIMARY) HYPERTENSION Qualifiers: Hypertension type: essential hypertension Qualified Code(s): I10 - Essential (primary) hypertension (13) Peripheral artery disease Code(s): I73.9 - PERIPHERAL VASCULAR DISEASE, UNSPECIFIED Assessment/Plan IMP ACUTE ON CHRONIC HYPOXEMIC RESPIRATORY FAILURE IMPROVED COPD O2 DEPENDENT ASHD S/P CABG,S/P STENTS PVD CHF AFIB HTN PLAN PREDNISONE INHALED BRONCHODILATORS NIPPV NEEDED O2 LASIX AC RATE CONTROL PER CARDIOLOGY OUTPATIENT PULMONARY REHAB DR JEFFERSON Problem List - Problems (1) Acute and chronic respiratory failure with hypoxia Code(s): J96.21 - ACUTE AND CHRONIC RESPIRATORY FAILURE WITH HYPOXIA (2) COPD (chronic obstructive pulmonary disease) Code(s): J44.9 - CHRONIC OBSTRUCTIVE PULMONARY DISEASE, UNSPECIFIED Qualifiers: COPD type: COPD with acute exacerbation Qualified Code(s): J44.1 - Chronic obstructive pulmonary disease with (acute) exacerbation (3) COPD exacerbation Code(s): J44.1 - CHRONIC OBSTRUCTIVE PULMONARY DISEASE W (ACUTE) EXACERBATION (4) History of arterial bypass of lower extremity Code(s): Z95.828 - PRESENCE OF OTHER VASCULAR IMPLANTS AND GRAFTS (5) Old cerebrovascular accident (CVA) without late effect Code(s): Z86.73 - PRSNL HX OF TIA (TIA), AND CEREB INFRC W/O RESID DEFICITS (6) PAD (peripheral artery disease) Code(s): I73.9 - PERIPHERAL VASCULAR DISEASE, UNSPECIFIED (7) SOB (shortness of breath) Code(s): R06.02 - SHORTNESS OF BREATH (8) Afib Code(s): I48.91 - UNSPECIFIED ATRIAL FIBRILLATION Qualifiers: Atrial fibrillation type: chronic Qualified Code(s): I48.2 - Chronic atrial fibrillation (9) CAD (coronary artery disease) Code(s): I25.10 - ATHSCL HEART DISEASE OF [place] CORONARY ARTERY W/O ANG PCTRS Qualifiers: Coronary Disease-Associated Artery/Lesion type: [place] artery (10) Hx of CABG Code(s): Z95.1 - PRESENCE OF AORTOCORONARY BYPASS GRAFT (11) Hyperlipidemia Code(s): E78.5 - HYPERLIPIDEMIA, UNSPECIFIED Qualifiers: (12) Hypertension Code(s): I10 - ESSENTIAL (PRIMARY) HYPERTENSION Qualifiers: Hypertension type: essential hypertension Qualified Code(s): I10 - Essential (primary) hypertension (13) Peripheral artery disease Code(s): I73.9 - PERIPHERAL VASCULAR DISEASE, UNSPECIFIED
--- NOTE | 2017-11-15 14:49 | DS ---
Physical Examination Vital Signs: Vital Signs Temperature 98.6 F 11/15/17 09:39 Pulse Rate 58 L 11/15/17 09:39 Respiratory Rate 20 11/15/17 09:39 Blood Pressure 122/74 11/15/17 09:39 O2 Sat by Pulse Oximetry (%) 92 L 11/15/17 09:39 Findings/Remarks: feels better wants to go home Cardiovascular: Yes: S1, S2 Respiratory: Yes: Regular, CTA Bilaterally, On Nasal O2 Gastrointestinal: Yes: Normal Bowel Sounds, Soft Labs: CBC, BMP 11/14/17 07:00 11/14/17 07:00 Discharge Summary Reason For Visit: SHORTNESS OF BREATH Hospital Course: Problems (1) COPD exacerbation Assessment/Plan: IV STEROIDS--on prednisone 20 bid--Increase 40 bid-improved NEBS QID OXYGEN ABG NOTED Code(s): J44.1 - CHRONIC OBSTRUCTIVE PULMONARY DISEASE W (ACUTE) EXACERBATION (2) CHF (congestive heart failure) Assessment/Plan: -IV LASIX=-ON 40 PO DAILY--INCREASE TO 80 -CXR noted Code(s): I50.9 - HEART FAILURE, UNSPECIFIED (3) CAD (coronary artery disease) Assessment/Plan: NO CP MONITOR Code(s): I25.10 - ATHSCL HEART DISEASE OF [place] CORONARY ARTERY W/O ANG PCTRS Qualifiers: Coronary Disease-Associated Artery/Lesion type: [place] artery Associated angina: with stable angina (4) Tachycardia Assessment/Plan: -increase Metoprolo 5o bid--better--now in 60's -EKG -Cardio follow up Code(s): R00.0 - TACHYCARDIA, UNSPECIFIED (5) Afib Assessment/Plan: -On xarelto -toprol bid-and cardizem cd 120 -ekg Code(s): I48.91 - UNSPECIFIED ATRIAL FIBRILLATION Qualifiers: Atrial fibrillation type: chronic Qualified Code(s): I48.2 - Chronic atrial fibrillation Condition: Fair - Instructions Diet, Activity, Other Instructions: Follow up with Dr rodriguez in one week to taper steroids Referrals: Alyssa Solomon [Primary Care Provider] - 1 Week Disposition: VNS/HOME HEALTH CARE - Home Medications Comprehensive Discharge Medication List: Ambulatory Orders Albuterol 0.083% Nebulizer Suki [Ventolin 0.083% Nebulizer Soln -] 1 neb NEB QID 11/08/17 Aspirin [Ecotrin] 81 mg PO DAILY 11/08/17 Budesonide/Formeterol Fumarate [SYMBICORT 160/4.5mcg -] 1 inh PO BID 11/08/17 Duloxetine HCl [Cymbalta -] 60 mg PO DAILY 11/08/17 Ferrous Sulfate 325 mg PO DAILY 11/08/17 Fluocinonide 0.05% Cream [Lidex 0.05% Cream -] 1 applic TP DAILY 11/08/17 Isosorbide Dinitrate [Isordil -] 20 mg PO BID 11/08/17 Lovastatin 10 mg PO HS 11/08/17 Pantoprazole Sodium [Protonix] 40 mg PO DAILY 11/08/17 Pregabalin [Lyrica] 100 mg PO TID 11/08/17 Rivaroxaban [Xarelto -] 20 mg PO DAILY 11/08/17 Tamsulosin HCl [Flomax] 0.4 mg PO HS 11/08/17 Furosemide [Lasix -] 40 mg PO DAILY tablet 11/12/17 Diltiazem Cd [Cardizem Cd -] 120 mg PO DAILY #30 cap.cd.24h 11/15/17 Lisinopril [Prinivil] 40 mg PO DAILY #0 tablet 11/15/17 Metoprolol Succinate [Toprol XL -] 50 mg PO BID tab.sr.24h 11/15/17 Prednisone 10 mg PO BID #100 tablet 11/15/17
== END 2017-11-15 11:25 | disposition home health service (06) | DRG 189 ==
LOC: JER 08:06 → JERBED 10:48 → J4W 14:38
PROVIDERS: ADMIT Family Medicine; ATTEND Family Medicine
PROC: 5A09357 Assistance with Respiratory Ventilation, Less than 24 Consecutive Hours, Continuous Positive Airway Pressure (ICD-10-PCS; principal; 2017-11-08)
DX: J96.21 Acute and chronic respiratory failure with hypoxia (principal); J44.1 Chronic obstructive pulmonary disease with (acute) exacerbation; I69.351 Hemiplegia and hemiparesis following cerebral infarction affecting right dominant side; I11.0 Hypertensive heart disease with heart failure; I25.10 Atherosclerotic heart disease of native coronary artery without angina pectoris; N40.0 Benign prostatic hyperplasia without lower urinary tract symptoms; Z95.1 Presence of aortocoronary bypass graft; I48.91 Unspecified atrial fibrillation; I50.9 Heart failure, unspecified; Z86.718 Personal history of other venous thrombosis and embolism; Z99.81 Dependence on supplemental oxygen; Z87.891 Personal history of nicotine dependence; J06.9 Acute upper respiratory infection, unspecified; I73.9 Peripheral vascular disease, unspecified; I25.5 Ischemic cardiomyopathy; I48.2 Chronic atrial fibrillation; E78.5 Hyperlipidemia, unspecified
CPT/HCPCS: 36415; 36600; 71045-TC-FY; 80048; 80053; 80061; 82375; 82550; 82803; 82962; 83036; 83050; 83721; 83880; 84484; 85025; 85027; 93005; 93010; 93306-TC; 94640; 94660; 97116-GP; 97162-GP; 99283-25; J0282; J7620

== ENCOUNTER 2017-11-23 20:42 | Inpatient (IN) | payer OTHER ==
--- NOTE | 2017-11-23 20:52 | PDOC ---
Attending Attestation - HPI HPI: 11/23/17 21:48 The patient is a 77 year old female with a significant PMH of Triple A repair ( 2011), CVA, TAA, afib, DVT, CAD, CHF, COPD, CKD, BPH, PPM, hypertension, hyperlipidemia, knee replacement and cataract repair who presents to the emergency department via EMS with a seizure like activity prior to arrival. The patient's reports that the patient had been given a nebulizer treatment earlier this evening . she states that subsequently he patient went to walk to the bathroom and fell. She notes that the patient was shaking and hit his left arm. The patient's states that she noticed similar activity in the patient about 2 days ago but was not sure if it was a stroke. The patient's states that the patient has otherwise been eating and drinking normally. The patient endorses left arm pain , secondary to injury and trouble breathing. The patient denies any other symptoms. He denies any fever, chills, nausea, vomit, diarrhea , constipation or urinary symptoms. He denies any chest pain,headache and dizziness. The patient denies any other complaints. - Physicial Exam PE: 11/23/17 21:48 GENERAL: Awake, alert, and fully oriented, Following demands, in no acute distress HEAD: No signs of trauma EYES: PERRLA, EOMI, sclera anicteric, conjunctiva clear ENT: Auricles normal inspection, hearing grossly normal, nares patent, oropharynx clear without exudates. Moist mucosa NECK: Normal ROM, supple, no lymphadenopathy, JVD, or masses LUNGS: Breath sounds equal, clear to auscultation bilaterally. No wheezes, and no crackles HEART: (+)afib Regular rhythm, normal S1 and S2, no murmurs, rubs or gallops ABDOMEN: Soft, nontender, normoactive bowel sounds. No guarding, no rebound. No masses EXTREMITIES: (+)weakness in bilateral legs. Right lower extremity colder than left. [place] bilaterally downward and normal. Left forearm is extremely tender, large engorged veins appear to be fistula-like. No history of fistula. Possibility of veins injured during fall. Normal range of motion, no edema. No clubbing or cyanosis. No cords, erythema, or tenderness NEUROLOGICAL: Cranial nerves II through XII grossly intact. Normal speech, normal gait SKIN: Warm, Dry, normal turgor, no rashes or lesions noted. Documentation prepared by Haseeb Payan, acting as ophthalmic medical technician for Oneyda Horton MD <Haseeb Payan - Last Filed: 11/23/17 21:48> - Resident Resident Name: Pily Aldridge - ED Attending Attestation I have performed the following: I have examined & evaluated the patient, The case was reviewed & discussed with the resident, I agree w/resident's findings & plan - Medical Decision Making 11/23/17 22:01 Patient Name: IVNA MAURICIO THIS IS A PRELIMINARY REPORT FROM [facility] DATE OF SERVICE: 2017-11-23 21:38:19 IMAGES: 147 Exam: CT head without IV contrast. Clinical indication:Seizure-like activity with unequal pupils. Comparison:None available. Technique: Axial unenhanced CT images from the skull base through the brain were obtained followed by coronal and sagital reformats. Findings: The visualized bony structures are unremarkable. The visualized paranasal sinuses and mastoid air cells are clear. There is no evidence of intra-or extra-axial hemorrhage. The ventricles and basilar cisterns are unremarkable. There is been a prior large old left parietal/temporal infarct with encephalomalacia. There is also been a small old right frontal infarct. There is also a small lacunar infarct within the left caudate nucleus. There is no evidence of intracranial mass, acute infarct, or midline shift. Impression: 1. No definite acute intracranial abnormality. 2. Large old left parietal/temporal infarct. 3. Small old right frontal infarct. 4. Lacunar infarct within the left caudate nucleus. Individualized dose optimization techniques were used for this CT. THIS DOCUMENT HAS BEEN ELECTRONICALLY SIGNED 11/24/17 00:51 Pt is pending sono; pending urinalysis. Dr. Hendricks of vascular wants pt to have sono of his left upper extemity, with it' s grossly swollen vasculature. 11/24/17 02:51 Pt will be admitted and worked up for syncope and seizure like activity. <Oneyda Horton - Last Filed: 11/24/17 02:52>
[2017-11-23] MEDS ORDERED: morphine CARPU-JECT 2 MG/1 ML DISP.SYRIN IVPUSH ONE (21:19)
[2017-11-23] MEDS ORDERED: morphine SULFATE 4 MG/ML VIAL ONE (21:27)
--- NOTE | 2017-11-23 21:37 | PDOC ---
History of Present Illness - General Chief Complaint: Seizure Stated Complaint: SEIZURE Time Seen by Provider: 11/23/17 20:52 - History of Present Illness Initial Comments: Walter Villar is a 77yo man with a PMH of a-fib on xarelto, HTN, HLD, CAD s/p stent s/p pacemaker s/p CABG, PAD s/p LE bypass, AAA s/p repair, COPD c/b chronic hypoxic respiratory failure, h/o CVA with residual left sided weakness, OA, CKD who presents with concern for new onset seizure, witnessed at home, as well as acute onset of aneurysmal dilatation a LUE vessel. According to his , he had just finished a scheduled nebulizer treatment this evening and was walking to the bathroom when he started to moan. She looked over and saw him fall to the ground. She witnessed him shaking in all 4 limbs. Once the shaking stopped, she went to call an ambulance immediately. She states that he was not responsive during or immediately following the episode. His says that he had a similar episode last week, but she thought that he just tripped and fell. He has no known history of seizure. His only medication change recently was switching from metoprolol to diltiazem. Mr Villar and his noted that he has a large swelling on the ulnar side of his left forearm that was not present earlier today. He complains of significant pain in his arm. He does not remember falling and does not know if he hit his head during the fall. His states that she saw the fall, but she is also unaware of whether he lost consciousness at any point or whether he hit his head. Past History - Past Medical History Allergies/Adverse Reactions: Allergies Allergy/AdvReac Type Severity Reaction Status Date / Time No Known Allergies Allergy Verified 11/23/17 21:04 Home Medications: Ambulatory Orders Albuterol 0.083% Nebulizer Suki [Ventolin 0.083% Nebulizer Soln -] 1 neb NEB QID 11/08/17 Aspirin [Ecotrin] 81 mg PO DAILY 11/08/17 Budesonide/Formeterol Fumarate [SYMBICORT 160/4.5mcg -] 1 inh PO BID 11/08/17 Duloxetine HCl [Cymbalta -] 60 mg PO DAILY 11/08/17 Ferrous Sulfate 325 mg PO DAILY 11/08/17 Fluocinonide 0.05% Cream [Lidex 0.05% Cream -] 1 applic TP DAILY 11/08/17 Isosorbide Dinitrate [Isordil -] 20 mg PO BID 11/08/17 Lovastatin 10 mg PO HS 11/08/17 Pantoprazole Sodium [Protonix] 40 mg PO DAILY 11/08/17 Pregabalin [Lyrica] 100 mg PO TID 11/08/17 Rivaroxaban [Xarelto -] 20 mg PO DAILY 11/08/17 Tamsulosin HCl [Flomax] 0.4 mg PO HS 11/08/17 Furosemide [Lasix -] 40 mg PO DAILY tablet 11/12/17 Diltiazem Cd [Cardizem Cd -] 120 mg PO DAILY #30 cap.cd.24h 11/15/17 Lisinopril [Prinivil] 40 mg PO DAILY #0 tablet 11/15/17 Metoprolol Succinate [Toprol XL -] 50 mg PO BID tab.sr.24h 11/15/17 Prednisone 10 mg PO BID #100 tablet 11/15/17 Anemia: No Asthma: No Cancer: No Cardiac Disorders: Yes (STENTS 2000/STENT IN 2015) CVA: Yes (01/23/12/DURING TRIPLE AA REPAIR) COPD: Yes CHF: No Dementia: No (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) Diabetes: No GI Disorders: No Disorders: Yes (BPH) HTN: Yes Hypercholesterolemia: Yes Liver Disease: No Seizures: No Thyroid Disease: No - Surgical History Abdominal Surgery: Yes (S/P AAA) Appendectomy: No Cardiac Surgery: Yes (BYPASS 2013, PPM/ AAA REPAIR/2011) Cholecystectomy: No Lung Surgery: No Neurologic Surgery: No Orthopedic Surgery: No - Immunization History Immunization Up to Date: Yes - Suicide/Smoking/Psychosocial Hx Smoking History: Never smoked Have you smoked in the past 12 months: No If you are a former smoker, when did you quit?: 2008 Cigars Per Day: 0 Information on smoking cessation initiated: No Hx Alcohol Use: No Drug/Substance Use Hx: No Substance Use Type: None Hx Substance Use Treatment: No Review of Systems - Review of Systems Comments:: Unable to obtain fully General: No recent fever, chills, appetite change HEENT: h/o visual flashes. h/o cataract surgery. No recent congestion. CV: +pacemaker, h/o CABG. No chest pain, no LE edema Pulm: +home O2 use, +chronic hypoxia. No change recently GI: No n/v/d/c, no new abdominal pain : No frequency Musc: No recent injury Heme: Fully anticoagulated, no recent bleeding events Neuro: +left weakness, h/o CVA, +speech difficulty Vasc: h/o PAD *Physical Exam - Vital Signs Last Vital Signs Temp Pulse Resp BP Pulse Ox 98.4 F 89 22 133/96 94 L 11/23/17 20:58 11/23/17 20:58 11/23/17 20:58 11/23/17 20:58 11/23/17 20:58 - Physical Exam Comments: General: Uncomfortable HEENT: Pupils unequal, R 1mm, L 3-4mm, EOMI, MMM, voice normal, normal neck ROM , no visible trauma Cards: Difficult to auscultate, no murmurs or rubs appreciated. Pulm: Tachypnic, on O2 by non-rebreather, labored breathing Abd: Soft, nontender, nondistended Ext: LUE with large aneurysmal dilatation on entire length of ulnar forearm, TTP. No LE edema. RLE cool to touch compared to LLE but palpable DP and PT. ROM intact. Strength 5/5 on right, 4/5 on left. Vasc: RLE cool to touch compared to LLE but palpable DP and PT. LUE warm, well perfused, hand motor and sensory intact though consistent with ulnar-side aneurysm. Neuro: Alert, oriented to self, CN grossly intact, speech difficult to understand, motor/sensory grossly intact and symmetric Psych: Confused, upset ED Treatment Course - LABORATORY CBC & Chemistry Diagram: 11/23/17 21:35 11/23/17 21:35 - Medications Given in the ED: ED Medications Discontinued Medications Generic Name Dose Route Start Last Admin Trade Name Freq PRN Reason Stop Dose Admin Morphine Sulfate 2 mg 11/23/17 21:19 11/23/17 21:20 Morphine Injection - IVPUSH 11/23/17 21:20 2 mg ONCE ONE Administration Medical Decision Making - Medical Decision Making 11/23/17 21:52 Walter Villar is a 77yo man with numerous chronic medical conditions including a- fib on xarelto and ASA, HTN, HLD, CAD s/p pacemaker and s/p CABG, PAD s/p bypass (per ), AAA s/p repair, COPD with chronic hypoxic respiratory failure , CVA with residual left-sided weakness, OA, CKD with witnessed new onset seizure and 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 - Stroke workup ordered. Unclear why Mr Villar is experiencing new-onset seizures, concern for intracranial bleed or acute change. Non-contrast CT head completed, radiology read pending. - CBC, CMP, coags, UA, blood culture, urine culture, EKG, CXR ordered - Page to on-call vascular surgeon for recs regarding new LUE aneurysm - Will need admission given new onset seizure vs multiple falls 11/23/17 22:50 - CT head completed. Spoke to radiologist, no acute changes noted - Labs notable for WBC 14.4, 88% PMNs, INR 1.96 (baseline), elevated BUN to 52, Cr 1.8 (baseline 1.4) - Spoke to Dr Hendricks in vascular surgery. Ordered LUE duplex to evaluate vessels. - Xrays of LUE elbow and forearm to r/u underlying injury - Page to hospitalist for admission Patient endorsed to Dr Hussein for additional care while in the ED. Discussed with Dr Horton. *DC/Admit/Observation/Transfer Diagnosis at time of Disposition: Fall, Acute and chronic respiratory failure with hypoxia - Discharge Dispostion Condition at time of disposition: Guarded Decision to Admit order: Yes - Referrals Referrals: Xavier Escamilla MD [Primary Care Provider] - - Patient Instructions - Post Discharge Activity
[2017-11-23 21:46] LABS: BASO % 0.3 % (0-2.0); EOS % 0.1 % (0-4.5); HEMATOCRIT 47.4 % (35.4-49); HEMOGLOBIN 15.5 GM/dL (11.7-16.9); LYMPH % 2.4 % (8-40); MCH 27.6 pg (25.7-33.7); MCHC 32.7 g/dl (32.0-35.9); MEAN CELL VOLUME 84.6 fl (80-96); MEAN PLT VOLUME 10.3 fl (7.5-11.1); NEUT % 91.2 % (42.8-82.8); PLATELET COUNT 204 K/MM3 (134-434); RDW 16.9 % (11.9-15.9); WHITE BLOOD COUNT 14.4 K/mm3 (4.0-10.0)
[2017-11-23 22:02] LABS: INR 1.96 (0.83-1.09); PROTHROMBIN TIME (PATIENT) 22.2 SEC (9.7-13.0)
[2017-11-23 22:17] LABS: ALBUMIN 3.4 g/dl (3.4-5.0); ANION GAP 12 MMOL/L (8-16); BLOOD UREA NITROGEN 52 mg/dL (7-18); CALCIUM 8.9 mg/dL (8.5-10.1); CHLORIDE 101 mmol/L (98-107); CO2 25 mmol/L (21-32); CREATININE 1.8 mg/dL (0.7-1.3); GLUCOSE,RANDOM 98 mg/dL (74-106); POTASSIUM 4.6 mmol/L (3.5-5.1); SGOT/AST 17 U/L (15-37); SGPT/ALT 37 U/L (12-78); SODIUM 138 mmol/L (136-145)
[2017-11-23 22:18] LABS: ALK PHOS 53 U/L (45-117); BILIRUBIN,TOTAL 0.8 mg/dL (0.2-1.0); TOT PROT 6.9 g/dl (6.4-8.2)
[2017-11-23 22:29] LABS: MACROCYTOSIS 1+; OVALOCYTE 1+; PLATELET ESTIMATE ADEQUATE
--- NOTE | 2017-11-23 23:38 | HP ---
Admitting History and Physical - Primary Care Physician PCP: Xavier Escamilla - Admission Chief Complaint: Seizure Activity, s/p Fall History of Present Illness: This is a 77 y/o man with a past medical history of Afib (on Xarelto), HTN, HLD , CAD, COPD on O2, Chronic Hypoxic Respiratory Failure, DM, CABG, PAD, AAA ( repaired). h/o CVA with residual left sided weakness, OA, CKD Who presents to the ED via ambulance for witnessed Seizure like activity x last night. Per ED records: Patient presents with concern for new onset seizure, witnessed at home , as well as acute onset of aneurysmal dilatation a LUE vessel. According to his , he had just finished a scheduled nebulizer treatment this evening and was walking to the bathroom when he started to moan. She looked over and saw him fall to the ground. She witnessed him shaking in all 4 limbs. Once the shaking stopped, she went to call an ambulance immediately. She states that he was not responsive during or immediately following the episode. His says that he had a similar episode last week, but she thought that he just tripped and fell. He has no known history of seizure. His only medication change recently was switching from metoprolol to diltiazem. Mr Jian and his noted that he has a large swelling on the ulnar side of his left forearm that was not present earlier today. He complains of significant pain in his arm. He does not remember falling and does not know if he hit his head during the fall. His states that she saw the fall, but she is also unaware of whether he lost consciousness at any point or whether he hit his head. 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 Cardiovascular: Yes: AFIB, Aneurysm, CAD, CHF, HTN, Hyperlipdemia, Murmur, Other (peripheral artery disease) Pulmonary: Yes: COPD Renal/: Yes: BPH - Past Surgical History Past Surgical History: Yes: AAA Repair, Bypass (lower ext), Permanent Pacemaker , Stent (cardiac x 2) - Smoking History Smoking history: Never smoked Have you smoked in the past 12 months: No If you are a former smoker, when did you quit?: 2008 - Alcohol/Substance Use Hx Alcohol Use: No History of Substance Use: reports: None - Social History Usual Living Arrangement: Yes: With Spouse ADL: Family Assistance History of Recent Travel: No Home Medications - Allergies Allergies/Adverse Reactions: Allergies Allergy/AdvReac Type Severity Reaction Status Date / Time No Known Allergies Allergy Verified 11/23/17 21:04 - Home Medications Home Medications: Ambulatory Orders Albuterol 0.083% Nebulizer Suki [Ventolin 0.083% Nebulizer Soln -] 1 neb NEB QID 11/08/17 Aspirin [Ecotrin] 81 mg PO DAILY 11/08/17 Budesonide/Formeterol Fumarate [SYMBICORT 160/4.5mcg -] 1 inh PO BID 11/08/17 Duloxetine HCl [Cymbalta -] 60 mg PO DAILY 11/08/17 Ferrous Sulfate 325 mg PO DAILY 11/08/17 Fluocinonide 0.05% Cream [Lidex 0.05% Cream -] 1 applic TP DAILY 11/08/17 Isosorbide Dinitrate [Isordil -] 20 mg PO BID 11/08/17 Lovastatin 10 mg PO HS 11/08/17 Pantoprazole Sodium [Protonix] 40 mg PO DAILY 11/08/17 Pregabalin [Lyrica] 100 mg PO TID 11/08/17 Rivaroxaban [Xarelto -] 20 mg PO DAILY 11/08/17 Tamsulosin HCl [Flomax] 0.4 mg PO HS 11/08/17 Furosemide [Lasix -] 40 mg PO DAILY tablet 11/12/17 Diltiazem Cd [Cardizem Cd -] 120 mg PO DAILY #30 cap.cd.24h 11/15/17 Lisinopril [Prinivil] 40 mg PO DAILY #0 tablet 11/15/17 Metoprolol Succinate [Toprol XL -] 50 mg PO BID tab.sr.24h 11/15/17 Prednisone 10 mg PO BID #100 tablet 11/15/17 Family Disease History - Family Disease History Family History: Unable to Obtain Review of Systems - Review of Systems Constitutional: reports: No Symptoms Eyes: reports: No Symptoms HENT: reports: No Symptoms Neck: reports: No Symptoms Cardiovascular: reports: No Symptoms Respiratory: reports: No Symptoms Gastrointestinal: reports: No Symptoms Genitourinary: reports: No Symptoms Breasts: reports: No Symptoms Reported Musculoskeletal: reports: Extremity Pain (LUE), Other (LUE swelling with pulsation) Neurological: reports: Seizure, Syncope Endocrine: reports: No Symptoms Hematology/Lymphatic: reports: No Symptoms Psychiatric: reports: No Symptoms Physical Examination Vital Signs: Vital Signs Temperature 98.4 F 11/23/17 20:58 Pulse Rate 89 11/23/17 20:58 Respiratory Rate 22 11/23/17 20:58 Blood Pressure 133/96 11/23/17 20:58 O2 Sat by Pulse Oximetry (%) 94 L 11/23/17 20:58 Constitutional: Yes: No Distress, Calm Eyes: Yes: Conjunctiva Clear. No: Other (Pupils unequal) HENT: Yes: WNL, Atraumatic, Normocephalic Neck: Yes: WNL, Supple, Trachea Midline Cardiovascular: Yes: Pulse Irregular, S1, S2 Respiratory: Yes: Diminished, On Nasal O2 Gastrointestinal: Yes: Normal Bowel Sounds, Soft ...Rectal Exam: Yes: Deferred Renal/: Yes: WNL Breast(s): Yes: WNL Extremities: Yes: Other (LUE swelling, with pulsation) Edema: Yes Edema: LUE: 1+ Peripheral Pulses WNL: Yes Neurological: Yes: Alert, Confusion, Pre-Existing Deficit. No: Cran Nerves II- XII Intact ...Motor Strength: LUE (3/5), LLE (4/5), RUE (4/5), RLE (4/5) Psychiatric: Yes: Alert Labs: CBC, BMP 11/23/17 21:35 11/23/17 21:35 Laboratory Results - last 24 hr 11/23/17 11/23/17 11/23/17 21:35 21:35 21:35 WBC 14.4 H RBC 5.60 Hgb 15.5 Hct 47.4 MCV 84.6 MCH 27.6 MCHC 32.7 RDW 16.9 H Plt Count 204 MPV 10.3 Absolute Neuts (auto) 13.1 H Total Counted 100 Neutrophils % 91.2 H Neutrophils % (Manual) 88.0 H Lymphocytes % 2.4 L D Lymphocytes % (Manual) 4.0 L Monocytes % 6.0 Monocytes % (Manual) 7 Eosinophils % 0.1 D Basophils % 0.3 Nucleated RBC % 0 Differential Comment Man diff performed Platelet Estimate Adequate Platelet Comment Polychromasia 1+ Poikilocytosis 1+ Macrocytosis 1+ Ovalocytes 1+ PT with INR INR PTT (Actin FS) 41.1 H Sodium Potassium Chloride Carbon Dioxide Anion Gap BUN Creatinine Creat Clearance w eGFR Random Glucose Hemoglobin A1c % Calcium Phosphorus Magnesium Total Bilirubin AST ALT Alkaline Phosphatase Total Protein Albumin Vitamin B12 TSH Free T4 Blood Type A POSITIVE Antibody Screen Negative 11/23/17 11/23/17 21:35 21:35 WBC RBC Hgb Hct MCV MCH MCHC RDW Plt Count MPV Absolute Neuts (auto) Total Counted Neutrophils % Neutrophils % (Manual) Lymphocytes % Lymphocytes % (Manual) Monocytes % Monocytes % (Manual) Eosinophils % Basophils % Nucleated RBC % Differential Comment Platelet Estimate Platelet Comment Polychromasia Poikilocytosis Macrocytosis Ovalocytes PT with INR 22.20 H INR 1.96 H PTT (Actin FS) Sodium 138 Potassium 4.6 Chloride 101 Carbon Dioxide 25 Anion Gap 12 BUN 52 H Creatinine 1.8 H Creat Clearance w eGFR 36.58 Random Glucose 98 Hemoglobin A1c % Calcium 8.9 Phosphorus Magnesium Total Bilirubin 0.8 AST 17 D ALT 37 D Alkaline Phosphatase 53 Total Protein 6.9 Albumin 3.4 Vitamin B12 TSH Free T4 Blood Type Antibody Screen Current Medications Generic Name Dose Route Start Last Admin Trade Name Freq PRN Reason Stop Dose Admin Acetaminophen 650 mg 11/24/17 04:55 11/24/17 12:28 Tylenol - PO 650 mg Q6H PRN Administration PAIN 1-5 AND/OR FEVER Albuterol Sulfate 1 amp 11/24/17 10:00 11/24/17 12:58 Ventolin 0.083% Nebulizer Soln - NEB 1 amp RQID DIANNE Administration Aspirin 81 mg 11/24/17 10:00 11/24/17 09:00 Ecotrin - PO 81 mg DAILY DIANNE Administration Atorvastatin Calcium 20 mg 11/24/17 22:00 Lipitor - PO HS DIANNE Budesonide/Formoterol Fumarate 1 puff 11/24/17 10:00 11/24/17 10:45 Symbicort 160/4.5mcg - IH 1 puff BID DIANNE Administration Diltiazem HCl 120 mg 11/24/17 10:00 11/24/17 09:00 Cardizem Cd - PO 120 mg DAILY DIANNE Administration Duloxetine HCl 60 mg 11/24/17 10:00 11/24/17 09:00 Cymbalta - PO 60 mg DAILY DIANNE Administration Fluocinonide 1 applic 11/24/17 10:00 11/24/17 10:45 Lidex 0.05% Cream - TP 1 applic DAILY DIANNE Administration Furosemide 40 mg 11/24/17 10:00 11/24/17 09:00 Lasix - PO 40 mg DAILY DIANNE Administration Isosorbide Dinitrate 20 mg 11/24/17 10:00 11/24/17 10:46 Isordil - PO 20 mg BIDISORDIL DIANNE Administration Levetiracetam 250 mg 11/24/17 11:30 11/24/17 12:28 Keppra - PO 250 mg BID DIANNE Administration Lisinopril 40 mg 11/24/17 10:00 11/24/17 08:59 Prinivil PO 40 mg DAILY DIANNE Administration Metoprolol Succinate 50 mg 11/24/17 10:00 11/24/17 09:34 Toprol Xl - PO 50 mg BID DIANNE Administration Pantoprazole Sodium 40 mg 11/24/17 10:00 11/24/17 09:34 Protonix - PO 40 mg DAILY DIANNE Administration Prednisone 10 mg 11/24/17 10:00 11/24/17 09:34 Deltasone - PO 10 mg BID DIANNE Administration Pregabalin 100 mg 11/24/17 14:00 Lyrica - PO TID DIANNE Tamsulosin HCl 0.4 mg 11/24/17 22:00 Flomax - PO HS DIANNE Imaging - Results Chest X-ray: Report Reviewed, Image Reviewed Cat Scan: Report Reviewed (CT head without IV contrast. Clinical indication: Seizure-like activity with unequal pupils. Comparison:None available. Technique : Axial unenhanced CT images from the skull base through the brain were obtained followed by coronal and sagital reformats. Findings: The visualized bony structures are unremarkable. The visualized paranasal sinuses and mastoid air cells are clear. There is no evidence of intra-or extra-axial hemorrhage. The ventricles and basilar cisterns are unremarkable. There is been a prior large old left parietal/temporal infarct with encephalomalacia. There is also been a small old right frontal infarct. There is also a small lacunar infarct within the left caudate nucleus. There is no evidence of intracranial mass, acute infarct, or midline shift. Impression: 1. No definite acute intracranial abnormality. 2. Large old left parietal/temporal infarct. 3. Small old right frontal infarct. 4. Lacunar infarct within the left caudate nucleus.), Image Reviewed Problem List - Problems (1) Seizure Code(s): R56.9 - UNSPECIFIED CONVULSIONS (2) Fall Code(s): W19.XXXA - UNSPECIFIED FALL, INITIAL ENCOUNTER (3) CAD (coronary artery disease) Code(s): I25.10 - ATHSCL HEART DISEASE OF [place] CORONARY ARTERY W/O ANG PCTRS Qualifiers: Coronary Disease-Associated Artery/Lesion type: [place] artery Associated angina: with stable angina (4) CHF (congestive heart failure) Code(s): I50.9 - HEART FAILURE, UNSPECIFIED (5) CKD (chronic kidney disease) Code(s): N18.9 - CHRONIC KIDNEY DISEASE, UNSPECIFIED Qualifiers: Chronic kidney disease stage: stage 3 (moderate) Qualified Code(s): N18.3 - Chronic kidney disease, stage 3 (moderate) (6) COPD (chronic obstructive pulmonary disease) Code(s): J44.9 - CHRONIC OBSTRUCTIVE PULMONARY DISEASE, UNSPECIFIED Qualifiers: COPD type: COPD with acute exacerbation Qualified Code(s): J44.1 - Chronic obstructive pulmonary disease with (acute) exacerbation (7) History of aortic aneurysm repair Code(s): Z98.890 - OTHER SPECIFIED POSTPROCEDURAL STATES; Z86.79 - PERSONAL HISTORY OF OTHER DISEASES OF THE CIRCULATORY SYSTEM (8) History of arterial bypass of lower extremity Code(s): Z95.828 - PRESENCE OF OTHER VASCULAR IMPLANTS AND GRAFTS (9) Osteoarthritis Code(s): M19.90 - UNSPECIFIED OSTEOARTHRITIS, UNSPECIFIED SITE (10) PAD (peripheral artery disease) Code(s): I73.9 - PERIPHERAL VASCULAR DISEASE, UNSPECIFIED (11) BPH (benign prostatic hypertrophy) Code(s): N40.0 - BENIGN PROSTATIC HYPERPLASIA WITHOUT LOWER URINRY TRACT SYMP (12) History of permanent cardiac pacemaker placement Code(s): Z95.0 - PRESENCE OF CARDIAC PACEMAKER (13) Paroxysmal atrial fibrillation Code(s): I48.0 - PAROXYSMAL ATRIAL FIBRILLATION (14) Stented coronary artery Code(s): Z95.5 - PRESENCE OF CORONARY ANGIOPLASTY IMPLANT AND GRAFT Assessment/Plan 77 y/o man Admitted for Seizure Activity s/p Fall for further evaluation of their emergent condition. Plan: 1. New Onset Seizure- ?etiology, CT Brain- reviewed, Appreciate Neurology consult, Seizure precautions, Fall Precautions, Repeat Head CT tonight r/o ICH, Monitor CBC, BMP, Monitor vitals, Consider EEG will defer to Neurology 2. Fall- Likely due to Seizures vs Arrhythmia, L- elbow xray-pending, Consider Ortho consult 3. Afib- stable, EKG-pending, [id number] 6, Continue Cardizem, BB, hold Xarelto today secondary to fall, aneursymal dilatation to LUE 4. CAD- stable, continue home meds, EKG pending 5. HTN- stable, monitor BP, continue home meds, monitor renal function 6. COPD- stable, CXR- reviewed, continue home meds, O2, Appreciate Pulm consult 7. Diabetes Mellitus- stable, BGMs, no current med, Consider ISS, HgbA1c in am 8. CVA- chronic, Continue to treat with interventions accordingly, continue home meds, Fall Precautions 9. FEN- Gentle IVF, Monitor lytes, Keep NPO 10. DVT ppx- SCds, Hold AC till repeat Head CT Code Status: Full Code Dispo: Requires Inpatient Care Visit type - Emergency Visit Emergency Visit: Yes ED Registration Date: 11/23/17 Care time: The patient presented to the Emergency Department on the above date and was hospitalized for further evaluation of their emergent condition. - New Patient This patient is new to me today: Yes Date on this admission: 11/23/17 - Critical Care Critical Care patient: No Hospitalist Screening - Colonoscopy Questionnaire Colonoscopy Questionnaire: Colonoscopy Questionnaire - Patient: 50 - 75 years old and never had a screening colonoscopy: No History of colon or rectal polyps, or CA: Yes History of IBD, Crohn's disease or UC: No History of abdominal radiation therapy as a child: No - Relative: 1 with colon or rectal CA, or polyps at age 60 or younger: No Colon or rectal CA diagnosed at age 45 or younger: No Multiple relatives with colon or rectal CA: No - Outcome: Screening Result: Positive Screen
[2017-11-24] MEDS: ACETAMINOPHEN 325 MG TABLET (FP) PO PRN ×2 (05:11→12:28)
[2017-11-24] MEDS ORDERED: MORPHINE SULFATE 2 MG/ML VIAL IVPUSH ONE (07:41)
[2017-11-24 08:18] LABS: BASO % 0.1 % (0-2.0); EOS % 0.8 % (0-4.5); HEMATOCRIT 43.6 % (35.4-49); LYMPH % 9.4 % (8-40); MCH 27.2 pg (25.7-33.7); MCHC 32.2 g/dl (32.0-35.9); MEAN CELL VOLUME 84.6 fl (80-96); MONO % 8.3 % (3.8-10.2); NEUT % 81.4 % (42.8-82.8); PLATELET COUNT 160 K/MM3 (134-434); RBC 5.15 M/mm3 (4.00-5.60); RDW 16.3 % (11.9-15.9); WHITE BLOOD COUNT 13.6 K/mm3 (4.0-10.0)
--- NOTE | 2017-11-24 08:40 | PN ---
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, Physician Chief Complaint: Fall History of Present Illness: NAD - Current Medication List Current Medications: Active Medications Acetaminophen (Tylenol -) 650 mg PO Q6H PRN PRN Reason: PAIN 1-5 AND/OR FEVER Last Admin: 11/24/17 05:11 Dose: 650 mg Albuterol Sulfate (Ventolin 0.083% Nebulizer Soln -) amp NEB QID DIANNE Aspirin (Ecotrin -) 81 mg PO DAILY DIANNE Budesonide/Formoterol Fumarate (Symbicort 160/4.5mcg -) 1 puff IH BID DIANNE Diltiazem HCl (Cardizem Cd -) 120 mg PO DAILY DIANNE Duloxetine HCl (Cymbalta -) 60 mg PO DAILY DIANNE Fluocinonide (Lidex 0.05% Cream -) 1 applic TP DAILY DIANNE Furosemide (Lasix -) 40 mg PO DAILY [facility] Isosorbide Dinitrate (Isordil -) 20 mg PO BID [facility] Lisinopril (Prinivil) 40 mg PO DAILY [facility] Metoprolol Succinate (Toprol Xl -) 50 mg PO BID DIANNE Pantoprazole Sodium (Protonix -) 40 mg PO DAILY [facility] Prednisone (Deltasone -) 10 mg PO BID DIANNE Pregabalin (Lyrica -) 100 mg PO TID DIANNE Tamsulosin HCl (Flomax -) 0.4 mg PO HS [facility] - Objective Vital Signs: Vital Signs Temperature 97.8 F 11/24/17 04:47 Pulse Rate 77 11/24/17 04:47 Respiratory Rate 20 11/24/17 04:47 Blood Pressure 132/72 11/24/17 04:47 O2 Sat by Pulse Oximetry (%) 94 L 11/24/17 03:21 Constitutional: Yes: Well Nourished, No Distress, Calm Cardiovascular: Yes: Regular Rate and Rhythm Respiratory: Yes: Regular Gastrointestinal: Yes: Normal Bowel Sounds, Soft Musculoskeletal: Yes: Muscle Weakness Extremities: Yes: Other (Left hemiperisis from previous CVA) Peripheral Pulses WNL: Yes Neurological: Yes: Alert, Oriented Psychiatric: Yes: Alert, Oriented Labs: CBC, BMP 11/24/17 07:25 INR, PTT INR 1.96 (0.83-1.09) H 11/23/17 21:35 Problem List - Problems (1) Fall Assessment/Plan: -Physical therapy -CT head negative -Neurology consult -safety precautions -Hold eliquis for another 24 hours Code(s): W19.XXXA - UNSPECIFIED FALL, INITIAL ENCOUNTER (2) Acute kidney injury Assessment/Plan: -UA/UC pending -Nephrology consult -monitor Cr Code(s): N17.9 - ACUTE KIDNEY FAILURE, UNSPECIFIED (3) CAD (coronary artery disease) Assessment/Plan: -Statin -BB -On Isosorbide -Cardiac cath in the past with EF >40% -has ICM with permanent Cardiac resynchronization therapy defibrillator (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) as 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 in the past Code(s): I25.10 - ATHSCL HEART DISEASE OF [place] CORONARY ARTERY W/O ANG PCTRS Qualifiers: Coronary Disease-Associated Artery/Lesion type: [place] artery Associated angina: with stable angina (4) COPD (chronic obstructive pulmonary disease) Assessment/Plan: -On non re-breather now -CXR unremarkable -Pulmonary consult -Bronchodilators -Prednisone 10 mg po BID at home, would continue Code(s): J44.9 - CHRONIC OBSTRUCTIVE PULMONARY DISEASE, UNSPECIFIED Qualifiers: COPD type: COPD with acute exacerbation Qualified Code(s): J44.1 - Chronic obstructive pulmonary disease with (acute) exacerbation (5) Old cerebrovascular accident (CVA) without late effect Assessment/Plan: -Neurology consult -CT head negative -Unable to do MRI due to implantable device Code(s): Z86.73 - PRSNL HX OF TIA (TIA), AND CEREB INFRC W/O RESID DEFICITS (6) Paroxysmal atrial fibrillation Assessment/Plan: -On eliquis at home -Hold for another 24 hours due to LUE hematoma -restart eliquis tomorrow if he is stable -Monitor H/H for any drop suggesting blood loss Code(s): I48.0 - PAROXYSMAL ATRIAL FIBRILLATION Assessment/Plan See problem list Physical therapy [email or web address]
[2017-11-24 08:59] LABS: CHLORIDE 101 mmol/L (98-107); POTASSIUM 4.2 mmol/L (3.5-5.1); SODIUM 139 mmol/L (136-145)
[2017-11-24] MEDS: LISINOPRIL 20 MG TABLET (FP) PO SCH (08:59)
[2017-11-24] MEDS: DULoxetine HCL 30 MG CAPSULE.DR (FP) PO SCH (09:00)
[2017-11-24] MEDS: FUROSEMIDE 40 MG TABLET (FP) PO SCH (09:00)
[2017-11-24 09:19] LABS: ANION GAP 13 MMOL/L (8-16); BLOOD UREA NITROGEN 55 mg/dL (7-18); CALCIUM 8.8 mg/dL (8.5-10.1); CO2 25 mmol/L (21-32); CREATININE 1.6 mg/dL (0.7-1.3); GLUCOSE,RANDOM 74 mg/dL (74-106); MAGNESIUM 2.8 mg/dL (1.8-2.4); PHOSPHOROUS 4.1 mg/dL (2.5-4.9)
[2017-11-24] MEDS: PANTOPRAZOLE 40 MG TABLET (FP) PO SCH (09:34)
[2017-11-24] MEDS ORDERED: predniSONE 10 MG TABLET (UD) PO SCH (10:00)
[2017-11-24] MEDS ORDERED: ASPIRIN COATED 81 MG TABLET.EC PO SCH (10:00)
[2017-11-24] MEDS: ALBUTEROL SO4 0.083% IH SOL 2.5 MG/3 ML VIAL.NEB. NEB SCH ×4 (10:14→20:18)
[2017-11-24] MEDS: BUDESONIDE/FORMETEROL FUMARATE 160/4.5 mcg INHALER IH SCH ×2 (10:45→21:48)
[2017-11-24] MEDS: FLUOCINONIDE 0.05% CREAM (15 GM TUBE) TP SCH (10:45)
[2017-11-24] MEDS: ISOSORBIDE DINITRATE 20 MG TABLET (FP) PO SCH ×2 (10:46→17:24)
--- NOTE | 2017-11-24 10:53 | CON.NEURO ---
Consult Consult Specialty:: NEUROLOGY-JESUS ARREDONDO Reason for Consultation:: Possible seizures - History of Present Illness History of Present Illness: The patient is a 77 year old gentleman with a significant PMH of Triple A repair (2011), CVA, TAA, afib, DVT, CAD, CHF, COPD, CKD, BPH, PPM, with Btr hypertension, hyperlipidemia, knee replacement and cataract repair who presents to the emergency department via EMS with a seizure like activity prior to arrival. The patient's reports that the patient had been given a nebulizer treatment earlier this evening . she states that subsequently he patient went to walk to the bathroom and fell. She notes that the patient was shaking and hit his left arm. The patient's states that she noticed similar activity in the patient about 2 days ago but was not sure if it was a stroke. The patient 's states that the patient has otherwise been eating and drinking normally. The patient endorses left arm pain , secondary to injury and trouble breathing. The patient denies any other symptoms. He denies any fever, chills, nausea, vomit, diarrhea, constipation or urinary symptoms. He denies any chest pain,headache and dizziness. The patient denies any other complaints. -Mrs. Villar tells me last week while standing at the refrigerator he fell, had left arm shaking and she is not sure whether he had LOC, last night again slumped down and possibly had LOC for less than 2 mns and bilateral arm shaking. He did not have incontinence nor confusion(but is not sure of this. CT head without IV contrast. Clinical indication:Seizure-like activity with unequal pupils. Comparison:None available. Technique: Axial unenhanced CT images from the skull base through the brain were obtained followed by coronal and sagital reformats. Findings: The visualized bony structures are unremarkable. The visualized paranasal sinuses and mastoid air cells are clear. There is no evidence of intra-or extra-axial hemorrhage. The ventricles and basilar cisterns are unremarkable. There is been a prior large old left parietal/temporal infarct with encephalomalacia. There is also been a small old right frontal infarct. There is also a small lacunar infarct within the left caudate nucleus. There is no evidence of intracranial mass, acute infarct, or midline shift. Impression: 1. No definite acute intracranial abnormality. 2. Large old left parietal/temporal infarct. 3. Small old right frontal infarct. 4. Lacunar infarct within the left caudate nucleus. 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 Cardio/Vascular: Yes: AFIB, Aneurysm, CAD, CHF, HTN, Hyperlipdemia, Murmur, Other (peripheral artery disease) Pulmonary: Yes: COPD Renal/: Yes: BPH - Past Surgical History Past Surgical History: Yes: AAA Repair, Bypass (lower ext), Permanent Pacemaker , Stent (cardiac x 2) - Alcohol/Substance Use Hx Alcohol Use: No History of Substance Use: reports: None - Smoking History Smoking history: Never smoked Have you smoked in the past 12 months: No If you are a former smoker, when did you quit?: 2007 - Social History Usual Living Arrangement: With Spouse ADL: Family Assistance History of Recent Travel: No Home Medications - Allergies Allergies/Adverse Reactions: Allergies Allergy/AdvReac Type Severity Reaction Status Date / Time No Known Allergies Allergy Verified 11/23/17 21:04 - Home Medications Home Medications: Ambulatory Orders Albuterol 0.083% Nebulizer Suki [Ventolin 0.083% Nebulizer Soln -] 1 neb NEB QID 11/08/17 Aspirin [Ecotrin] 81 mg PO DAILY 11/08/17 Budesonide/Formeterol Fumarate [SYMBICORT 160/4.5mcg -] 1 inh PO BID 11/08/17 Duloxetine HCl [Cymbalta -] 60 mg PO DAILY 11/08/17 Ferrous Sulfate 325 mg PO DAILY 11/08/17 Fluocinonide 0.05% Cream [Lidex 0.05% Cream -] 1 applic TP DAILY 11/08/17 Isosorbide Dinitrate [Isordil -] 20 mg PO BID 11/08/17 Lovastatin 10 mg PO HS 11/08/17 Pantoprazole Sodium [Protonix] 40 mg PO DAILY 11/08/17 Pregabalin [Lyrica] 100 mg PO TID 11/08/17 Rivaroxaban [Xarelto -] 20 mg PO DAILY 11/08/17 Tamsulosin HCl [Flomax] 0.4 mg PO HS 11/08/17 Furosemide [Lasix -] 40 mg PO DAILY tablet 11/12/17 Diltiazem Cd [Cardizem Cd -] 120 mg PO DAILY #30 cap.cd.24h 08/24/18 Lisinopril [Prinivil] 40 mg PO DAILY #0 tablet 11/15/17 Metoprolol Succinate [Toprol XL -] 50 mg PO BID tab.sr.24h 11/15/17 Prednisone 10 mg PO BID #100 tablet 11/15/17 Physical Exam-Neuro Vital Signs: Vital Signs Temperature 97.8 F 11/24/17 04:47 Pulse Rate 77 11/24/17 04:47 Respiratory Rate 20 11/24/17 04:47 Blood Pressure 132/72 11/24/17 04:47 O2 Sat by Pulse Oximetry (%) 94 L 11/24/17 03:21 Labs: CBC, BMP 11/24/17 07:25 11/24/17 07:25 INR, PTT INR 1.96 (0.83-1.09) H 11/23/17 21:35 - Neuro Exam Level Of Consciousness: Yes: Alert, Oriented to Person, Oriented to Place Speech: Broca's Aphasia Dominant Hand: Right Mini Mental Exam: Impaired att/conc Cranial Nerves II-XII Intact: No (right old cent.facial) Gag: Present DTR's: 0 Left Tricep, 0 Right Tricep, 0 Left Achilles (absent bilat ankle jerks) , 0 Right Achilles, 1+ Left Brachioradialis, 1+ Right Brachioradialis, 2+ Left Bicep, 2+ Right Bicep Response to light touch: Normal (responds equally to touch both sides) Motor Strength: 3/5: Left Arm (unable to exert effort due to swelling since fall last night+ bruising on arm with swelling), 5/5: Right Arm, Right Leg Gait: Other (Not tested) Imaging - Results Cat Scan: Report Reviewed (CT head without IV contrast. Clinical indication: Seizure-like activity with unequal pupils. Comparison:None available. Technique : Axial unenhanced CT images from the skull base through the brain were obtained followed by coronal and sagital reformats. Findings: The visualized bony structures are unremarkable. The visualized paranasal sinuses and mastoid air cells are clear. There is no evidence of intra-or extra-axial hemorrhage. The ventricles and basilar cisterns are unremarkable. There is been a prior large old left parietal/temporal infarct with encephalomalacia. There is also been a small old right frontal infarct. There is also a small lacunar infarct within the left caudate nucleus. There is no evidence of intracranial mass, acute infarct, or midline shift. Impression: 1. No definite acute intracranial abnormality. 2. Large old left parietal/temporal infarct. 3. Small old right frontal infarct. 4. Lacunar infarct within the left caudate nucleus.) Assessment/Plan Pt. with two episodes which by description appear to be partial seizures with secondary gen. It is difficult to confirm seizures by hx. other possibility is syncope but less likely, he is prone to seizures given bilateral cortical infarcts. Sz.may be trigerred due to infection. Suggest: Would place on Keppra 250mg bid today and increase to 500mg bid tomorrow. EEG when possible. Thank you, Shay Melo MD
[2017-11-24] MEDS: levETIRAcetam 250 MG TABLET (FP) PO SCH ×2 (12:28→21:44)
--- NOTE | 2017-11-24 13:18 | CON.PULM ---
Consult Consult Specialty:: PULMONARY Referred by:: Dr. Escamilla Reason for Consultation:: COPD - History of Present Illness Chief Complaint: seizure like activity History of Present Illness: 77yo male with h/o HTN, hyperlipidemia, CAD, atrial fibrillation, h/o AAA repair , h/o CVA, LV diastolic dysfunction, COPD, chronic hypoxic respiratory failure, CKD who was admitted with seizure like activity and fall. He does report increase in his baseline shortness of breath. +nonproductive cough and occasional wheezing. He is on chronic prednisone at home. No chest pain or palpitations. No fevers or chills. 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 Cardio/Vascular: Yes: AFIB, Aneurysm, CAD, CHF, HTN, Hyperlipdemia, Murmur, Other (peripheral artery disease) Pulmonary: Yes: COPD Renal/: Yes: BPH - Past Surgical History Past Surgical History: Yes: AAA Repair, Bypass (lower ext), Permanent Pacemaker , Stent (cardiac x 2) - Alcohol/Substance Use Hx Alcohol Use: No History of Substance Use: reports: None - Smoking History Smoking history: Never smoked Have you smoked in the past 12 months: No If you are a former smoker, when did you quit?: 2007 - Social History Usual Living Arrangement: With Spouse ADL: Family Assistance History of Recent Travel: No Home Medications - Allergies Allergies/Adverse Reactions: Allergies Allergy/AdvReac Type Severity Reaction Status Date / Time No Known Allergies Allergy Verified 11/23/17 21:04 - Home Medications Home Medications: Ambulatory Orders Albuterol 0.083% Nebulizer Suki [Ventolin 0.083% Nebulizer Soln -] 1 neb NEB QID 11/08/17 Aspirin [Ecotrin] 81 mg PO DAILY 11/08/17 Budesonide/Formeterol Fumarate [SYMBICORT 160/4.5mcg -] 1 inh PO BID 11/08/17 Duloxetine HCl [Cymbalta -] 60 mg PO DAILY 11/08/17 Ferrous Sulfate 325 mg PO DAILY 11/08/17 Fluocinonide 0.05% Cream [Lidex 0.05% Cream -] 1 applic TP DAILY 11/08/17 Isosorbide Dinitrate [Isordil -] 20 mg PO BID 11/08/17 Lovastatin 10 mg PO HS 11/08/17 Pantoprazole Sodium [Protonix] 40 mg PO DAILY 11/08/17 Pregabalin [Lyrica] 100 mg PO TID 11/08/17 Rivaroxaban [Xarelto -] 20 mg PO DAILY 11/08/17 Tamsulosin HCl [Flomax] 0.4 mg PO HS 11/08/17 Furosemide [Lasix -] 40 mg PO DAILY tablet 11/12/17 Diltiazem Cd [Cardizem Cd -] 120 mg PO DAILY #30 cap.cd.24h 11/15/17 Lisinopril [Prinivil] 40 mg PO DAILY #0 tablet 11/15/17 Metoprolol Succinate [Toprol XL -] 50 mg PO BID tab.sr.24h 11/15/17 Prednisone 10 mg PO BID #100 tablet 11/15/17 Review of Systems - Review of Systems Constitutional: reports: Weakness. denies: Chills, Fever Eyes: denies: Eye Pain, Recent Change in Vision Neck: denies: Stiffness, Tenderness Cardiovascular: reports: Shortness of Breath. denies: Chest Pain, Edema Respiratory: reports: Cough. denies: Hemoptysis, Wheezing Gastrointestinal: denies: Abdominal Pain, Nausea, Vomiting Genitourinary: denies: Dysuria, Hematuria Neurological: denies: Dizziness, Headache Endocrine: denies: Unexplained Weight Loss Physical Exam Vital Sings: Vital Signs Temperature 97.8 F 11/24/17 04:47 Pulse Rate 77 11/24/17 04:47 Respiratory Rate 20 11/24/17 04:47 Blood Pressure 132/72 11/24/17 04:47 O2 Sat by Pulse Oximetry (%) 94 L 11/24/17 03:21 Constitutional: Yes: Mild Distress Eyes: Yes: Conjunctiva Clear, EOM Intact HENT: Yes: Atraumatic, Normocephalic Neck: Yes: Supple, Trachea Midline Cardiovascular: Yes: Pulse Irregular Respiratory: Yes: Diminished (distant breath sounds) ...Clubbing: No Gastrointestinal: Yes: Normal Bowel Sounds, Soft. No: Tenderness Edema: Yes (trace) Neurological: Yes: Alert, Oriented Labs: CBC, BMP 11/24/17 07:25 11/24/17 07:25 Imaging - Results Chest X-ray: Report Reviewed, Image Reviewed (basilar atelectasis) Assessment/Plan Seizures Acute COPD Exacerbation Chronic Hypoxic Respiratory Failure LV Diastolic Dysfunction Atrial Fibrillation Acute on Chronic Renal Failure h/o CVA CAD HTN Hyperlipidemia - will start short course of empiric medrol - inhaled bronchodilators - O2 to keep Spo2 >90% - continue home lasix - monitor urine output, creatinine - rate control - continue anticoagulation Thank you for this consult Edward Rodrigues MD
[2017-11-24] MEDS: methylPREDNISolone NA SUCC 40 MG/1 ML VIAL IVPUSH SCH ×2 (14:50→17:31)
[2017-11-24] MEDS: PREGABALIN 100 MG CAPSULE PO SCH ×2 (14:51→21:45)
--- NOTE | 2017-11-24 15:22 | CONSULT ---
Consult Consult Specialty:: Nephrology Reason for Consultation:: CKD - History of Present Illness Chief Complaint: s/p fall History of Present Illness: Pt is a 77 year old male with pmhx of CKD, AAA, a-fib, DVT, CAD, CHF, COPD, HTN , and BPH who presents to the ER after a fall. He was noted to have seizure like activity. I was called to evaluate him for CKD. His creatinine was higher than baseline yesterday. He denies dysuria or hematuria. He was recently discharged from the hospital. 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 Cardio/Vascular: Yes: AFIB, Aneurysm, CAD, CHF, HTN, Hyperlipdemia, Murmur, Other (peripheral artery disease) Pulmonary: Yes: COPD Renal/: Yes: BPH - Past Surgical History Past Surgical History: Yes: AAA Repair, Bypass (lower ext), Permanent Pacemaker , Stent (cardiac x 2) - Alcohol/Substance Use Hx Alcohol Use: No History of Substance Use: reports: None - Smoking History Smoking history: Never smoked Have you smoked in the past 12 months: No If you are a former smoker, when did you quit?: 2007 - Social History Usual Living Arrangement: With Spouse ADL: Family Assistance History of Recent Travel: No Home Medications - Allergies Allergies/Adverse Reactions: Allergies Allergy/AdvReac Type Severity Reaction Status Date / Time No Known Allergies Allergy Verified 11/23/17 21:04 - Home Medications Home Medications: Ambulatory Orders Albuterol 0.083% Nebulizer Suki [Ventolin 0.083% Nebulizer Soln -] 1 neb NEB QID 11/08/17 Aspirin [Ecotrin] 81 mg PO DAILY 11/08/17 Budesonide/Formeterol Fumarate [SYMBICORT 160/4.5mcg -] 1 inh PO BID 11/08/17 Duloxetine HCl [Cymbalta -] 60 mg PO DAILY 11/08/17 Ferrous Sulfate 325 mg PO DAILY 11/08/17 Fluocinonide 0.05% Cream [Lidex 0.05% Cream -] 1 applic TP DAILY 11/08/17 Isosorbide Dinitrate [Isordil -] 20 mg PO BID 11/08/17 Lovastatin 10 mg PO HS 11/08/17 Pantoprazole Sodium [Protonix] 40 mg PO DAILY 11/08/17 Pregabalin [Lyrica] 100 mg PO TID 11/08/17 Rivaroxaban [Xarelto -] 20 mg PO DAILY 11/08/17 Tamsulosin HCl [Flomax] 0.4 mg PO HS 11/08/17 Furosemide [Lasix -] 40 mg PO DAILY tablet 11/12/17 Diltiazem Cd [Cardizem Cd -] 120 mg PO DAILY #30 cap.cd.24h 11/15/17 Lisinopril [Prinivil] 40 mg PO DAILY #0 tablet 11/15/17 Metoprolol Succinate [Toprol XL -] 50 mg PO BID tab.sr.24h 11/15/17 Prednisone 10 mg PO BID #100 tablet 11/15/17 Family Disease History - Family Disease History Family History: Denies Review of Systems - Review of Systems Constitutional: reports: Malaise Eyes: reports: No Symptoms HENT: reports: No Symptoms Neck: reports: No Symptoms Cardiovascular: reports: Shortness of Breath. denies: Edema Respiratory: reports: SOB, SOB on Exertion Genitourinary: reports: No Symptoms Musculoskeletal: reports: Other (left arm pain and erythema) Neurological: reports: No Symptoms Endocrine: reports: No Symptoms Hematology/Lymphatic: reports: No Symptoms Physical Exam Vital Signs: Vital Signs Temperature 97.8 F 11/24/17 04:47 Pulse Rate 77 11/24/17 04:47 Respiratory Rate 20 11/24/17 04:47 Blood Pressure 132/72 11/24/17 04:47 O2 Sat by Pulse Oximetry (%) 94 L 11/24/17 03:21 Constitutional: Yes: Calm Eyes: Yes: Conjunctiva Clear HENT: Yes: Atraumatic Cardiovascular: Yes: S1, S2 Respiratory: Yes: On Nasal O2 Gastrointestinal: Yes: Soft Renal/: Yes: WNL Musculoskeletal: Yes: Other (left arm pain and swelling) Edema: No Neurological: Yes: Oriented Psychiatric: Yes: Oriented Labs: CBC, BMP 11/24/17 07:25 11/24/17 07:25 Laboratory Tests 11/08/17 11/09/17 11/09/17 10:11 07:00 07:00 WBC 11.7 H 10.0 Hgb 13.3 13.5 Sodium Potassium BUN 30 H Creatinine 1.4 H 11/10/17 11/14/17 11/23/17 07:00 07:00 21:35 WBC Hgb Sodium 141 Potassium 4.2 BUN 36 H Creatinine 1.3 1.4 H 1.8 H 11/24/17 07:25 WBC Hgb Sodium Potassium BUN Creatinine 1.6 H Imaging - Results Chest X-ray: Report Reviewed Problem List - Problems (1) Fall Code(s): W19.XXXA - UNSPECIFIED FALL, INITIAL ENCOUNTER (2) CAD (coronary artery disease) Code(s): I25.10 - ATHSCL HEART DISEASE OF [place] CORONARY ARTERY W/O ANG PCTRS Qualifiers: Coronary Disease-Associated Artery/Lesion type: [place] artery Associated angina: with stable angina (3) CHF (congestive heart failure) Code(s): I50.9 - HEART FAILURE, UNSPECIFIED (4) CKD (chronic kidney disease) Code(s): N18.9 - CHRONIC KIDNEY DISEASE, UNSPECIFIED Qualifiers: Chronic kidney disease stage: stage 3 (moderate) Qualified Code(s): N18.3 - Chronic kidney disease, stage 3 (moderate) Assessment/Plan Current Medications Generic Name Dose Route Start Last Admin Trade Name Freq PRN Reason Stop Dose Admin Acetaminophen 650 mg 11/24/17 04:55 11/24/17 12:28 Tylenol - PO 650 mg Q6H PRN Administration PAIN 1-5 AND/OR FEVER Albuterol Sulfate 1 amp 11/24/17 10:00 11/24/17 12:58 Ventolin 0.083% Nebulizer Soln - NEB 1 amp RQID DIANNE Administration Aspirin 81 mg 11/24/17 10:00 11/24/17 09:00 Ecotrin - PO 81 mg DAILY DIANNE Administration Atorvastatin Calcium 20 mg 11/24/17 22:00 Lipitor - PO HS DIANNE Budesonide/Formoterol Fumarate 1 puff 11/24/17 10:00 11/24/17 10:45 Symbicort 160/4.5mcg - IH 1 puff BID DIANNE Administration Diltiazem HCl 120 mg 11/24/17 10:00 11/24/17 09:00 Cardizem Cd - PO 120 mg DAILY DIANNE Administration Duloxetine HCl 60 mg 11/24/17 10:00 11/24/17 09:00 Cymbalta - PO 60 mg DAILY DIANNE Administration Fluocinonide 1 applic 11/24/17 10:00 11/24/17 10:45 Lidex 0.05% Cream - TP 1 applic DAILY DIANNE Administration Furosemide 40 mg 11/24/17 10:00 11/24/17 09:00 Lasix - PO 40 mg DAILY DIANNE Administration Isosorbide Dinitrate 20 mg 11/24/17 10:00 11/24/17 10:46 Isordil - PO 20 mg BIDISORDIL DIANNE Administration Levetiracetam 250 mg 11/24/17 11:30 11/24/17 12:28 Keppra - PO 250 mg BID DIANNE Administration Lisinopril 40 mg 11/24/17 10:00 11/24/17 08:59 Prinivil PO 40 mg DAILY DIANNE Administration Methylprednisolone Sodium Succinate 40 mg 11/24/17 13:45 11/24/17 14:50 Solu-Medrol - IVPUSH 40 mg Q8H-IV DIANNE Administration Metoprolol Succinate 50 mg 11/24/17 10:00 11/24/17 09:34 Toprol Xl - PO 50 mg BID DIANNE Administration Pantoprazole Sodium 40 mg 11/24/17 10:00 11/24/17 09:34 Protonix - PO 40 mg DAILY DIANNE Administration Pregabalin 100 mg 11/24/17 14:00 11/24/17 14:51 Lyrica - PO 100 mg TID DIANNE Administration Tamsulosin HCl 0.4 mg 11/24/17 22:00 Flomax - PO HS DIANNE Impression 1. CKD 2. COPD exacerbation 3. AAA 4. hx CVA 5. a-fib 6. HTN 7. insomnia 8. hypoxic resp failure 9. CAD 10. BPH 12. microscopic hematuria Plan - renal function is improving - repeat labs in am - avoid nsaids - cont steve - will follow
--- NOTE | 2017-11-24 18:26 | CONSULT ---
Consult Consult Specialty:: Hand and Microsurgery Referred by:: July PATTERSON Reason for Consultation:: Left arm hematoma - History of Present Illness Chief Complaint: left arm hematoma History of Present Illness: 77 yo male PMH of AAA repair 2012, CVA, TAA, afib, DVT, CAD, CHF, COPD, CKD, BPH , PPM, with Btr hypertension, hyperlipidemia, knee replacement and cataract repair who presents to the emergency department via EMS with a seizure like activity prior to arrival. The patient's reports that the patient had been given a nebulizer treatment earlier this evening . she states that subsequently he patient went to walk to the bathroom and fell. She notes that the patient was shaking and hit his left arm. The patient's states that she noticed similar activity in the patient about 2 days ago but was not sure if it was a stroke. The patient's states that the patient has otherwise been eating and drinking normally. The patient endorses left arm pain , secondary to injury and trouble breathing. The patient denies any other symptoms. We were asked to assess. 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 Cardio/Vascular: Yes: AFIB, Aneurysm, CAD, CHF, HTN, Hyperlipdemia, Murmur, Other (peripheral artery disease) Pulmonary: Yes: COPD Renal/: Yes: BPH - Past Surgical History Past Surgical History: Yes: AAA Repair, Bypass (lower ext), Permanent Pacemaker , Stent (cardiac x 2) - Alcohol/Substance Use Hx Alcohol Use: No History of Substance Use: reports: None - Smoking History Smoking history: Never smoked Have you smoked in the past 12 months: No If you are a former smoker, when did you quit?: 2007 - Social History Usual Living Arrangement: With Spouse ADL: Family Assistance History of Recent Travel: No Home Medications - Allergies Allergies/Adverse Reactions: Allergies Allergy/AdvReac Type Severity Reaction Status Date / Time No Known Allergies Allergy Verified 11/23/17 21:04 - Home Medications Home Medications: Ambulatory Orders Albuterol 0.083% Nebulizer Suki [Ventolin 0.083% Nebulizer Soln -] 1 neb NEB QID 11/08/17 Aspirin [Ecotrin] 81 mg PO DAILY 11/08/17 Budesonide/Formeterol Fumarate [SYMBICORT 160/4.5mcg -] 1 inh PO BID 11/08/17 Duloxetine HCl [Cymbalta -] 60 mg PO DAILY 11/08/17 Ferrous Sulfate 325 mg PO DAILY 11/08/17 Fluocinonide 0.05% Cream [Lidex 0.05% Cream -] 1 applic TP DAILY 11/08/17 Isosorbide Dinitrate [Isordil -] 20 mg PO BID 11/08/17 Lovastatin 10 mg PO HS 11/08/17 Pantoprazole Sodium [Protonix] 40 mg PO DAILY 11/08/17 Pregabalin [Lyrica] 100 mg PO TID 11/08/17 Rivaroxaban [Xarelto -] 20 mg PO DAILY 11/08/17 Tamsulosin HCl [Flomax] 0.4 mg PO HS 11/08/17 Furosemide [Lasix -] 40 mg PO DAILY tablet 11/12/17 Diltiazem Cd [Cardizem Cd -] 120 mg PO DAILY #30 cap.cd.24h 11/15/17 Lisinopril [Prinivil] 40 mg PO DAILY #0 tablet 11/15/17 Metoprolol Succinate [Toprol XL -] 50 mg PO BID tab.sr.24h 11/15/17 Prednisone 10 mg PO BID #100 tablet 11/15/17 Review of Systems - Review of Systems Constitutional: denies: Chills, Fever Eyes: denies: Blurred Vision, Recent Change in Vision HENT: denies: Difficult Swallowing, Throat Pain Neck: denies: Pain on Movement, Tenderness Cardiovascular: denies: Chest Pain, Palpitations Respiratory: denies: Cough, SOB Gastrointestinal: denies: Abdominal Pain, Constipation, Diarrhea Genitourinary: denies: Burning Musculoskeletal: denies: Back Pain, Joint Swelling, Muscle Pain Integumentary: reports: Bruising. denies: Rash Neurological: denies: Seizure, Syncope Endocrine: denies: Unexplained Weight Gain, Unexplained Weight Loss Hematology/Lymphatic: denies: Easily Bruised, Excessive Bleeding Psychiatric: denies: Anxiety, Depression Physical Exam Vital Signs: Vital Signs Temperature 97.5 F L 11/24/17 17:19 Pulse Rate 71 11/24/17 17:19 Respiratory Rate 20 11/24/17 17:19 Blood Pressure 95/52 11/24/17 17:19 O2 Sat by Pulse Oximetry (%) 94 L 11/24/17 03:21 Constitutional: Yes: Well Nourished, No Distress, Calm Eyes: Yes: Conjunctiva Clear, EOM Intact HENT: Yes: Atraumatic, Normocephalic Neck: Yes: Supple, Trachea Midline Cardiovascular: Yes: Regular Rate and Rhythm, S1, S2 Respiratory: Yes: Regular, CTA Bilaterally Gastrointestinal: Yes: Normal Bowel Sounds, Soft ...Rectal Exam: Yes: Deferred Renal/: No: CVA Tenderness - Left, CVA Tenderness - Right Musculoskeletal: Yes: Joint Stiffness, Joint Swelling Extremities: Yes: Other (Left are has forearm edema extending through the antecubital fossa. Scattered volar echymosis. distal forearm and hand are uninvolved. 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 2PD >6mm all digits.) Edema: Yes Edema: LUE: 2+, LLE: 1+, RLE: 1+ Peripheral Pulses WNL: Yes Integumentary: Yes: Bruising, Other Neurological: Yes: Alert, Oriented Psychiatric: Yes: Alert, Oriented Labs: CBC, BMP 11/24/17 07:25 11/24/17 07:25 Imaging - Results Chest X-ray: Report Reviewed, Image Reviewed Ultrasound: Report Reviewed (superficial hematomas, no aneurysm noted.), Image Reviewed Problem List - Problems (1) Traumatic hematoma of left upper arm Assessment/Plan: 77 yo RHD male MMP s/p L CTR [address] Charlie Gilman, Low index of suspicion for acute compartment syndrome Elevation above heart level while IV antibiotics per ID Correct coagulopathy consider f/u with Dr. Gilman Vascular surgery evaluation PT evaluation for Edema management and ROM Thank you for the opportunity to participate in the care of this patient. Code(s): S40.022A - CONTUSION OF LEFT UPPER ARM, INITIAL ENCOUNTER Qualifiers: Encounter type: initial encounter Qualified Code(s): S40.022A - Contusion of left upper arm, initial encounter (2) Fall Code(s): W19.XXXA - UNSPECIFIED FALL, INITIAL ENCOUNTER Qualifiers: Encounter type: subsequent encounter Qualified Code(s): W19.XXXD - Unspecified fall, subsequent encounter (3) CAD (coronary artery disease) Code(s): I25.10 - ATHSCL HEART DISEASE OF [place] CORONARY ARTERY W/O ANG PCTRS Qualifiers: Coronary Disease-Associated Artery/Lesion type: [place] artery Associated angina: with stable angina (4) COPD (chronic obstructive pulmonary disease) Code(s): J44.9 - CHRONIC OBSTRUCTIVE PULMONARY DISEASE, UNSPECIFIED Qualifiers: COPD type: COPD with acute exacerbation Qualified Code(s): J44.1 - Chronic obstructive pulmonary disease with (acute) exacerbation (5) History of aortic aneurysm repair Code(s): Z98.890 - OTHER SPECIFIED POSTPROCEDURAL STATES; Z86.79 - PERSONAL HISTORY OF OTHER DISEASES OF THE CIRCULATORY SYSTEM (6) History of arterial bypass of lower extremity Code(s): Z95.828 - PRESENCE OF OTHER VASCULAR IMPLANTS AND GRAFTS
[2017-11-24 19:28] LABS: URINE APPEARANCE CLEAR; URINE BILIRUBIN NEGATIVE (<2.0 mg/dL); URINE COLOR YELLOW; URINE GLUCOSE (UA) NEGATIVE (NEGATIVE); URINE KETONE NEGATIVE (NEGATIVE); URINE LEUK ESTERASE NEGATIVE (NEGATIVE); URINE NITRITE NEGATIVE (NEGATIVE); URINE PROTEIN NEGATIVE (NEGATIVE); URINE UROBILINOGEN NEGATIVE mg/dL (0.2-1.0)
[2017-11-24] MEDS ORDERED: ATORVASTATIN CA 20 MG TABLET (FP) PO SCH (22:00)
[2017-11-24] MEDS ORDERED: TAMSULOSIN HCL 0.4 MG CAP.ER.24H (FP) PO SCH (22:00)
[2017-11-25] MEDS: methylPREDNISolone NA SUCC 40 MG/1 ML VIAL IVPUSH SCH ×3 (01:27→19:00)
[2017-11-25] MEDS: PREGABALIN 100 MG CAPSULE PO SCH ×3 (06:32→21:31)
[2017-11-25] MEDS: ALBUTEROL SO4 0.083% IH SOL 2.5 MG/3 ML VIAL.NEB. NEB SCH ×2 (07:20→12:20)
[2017-11-25 09:03] LABS: CHLORIDE 102 mmol/L (98-107); POTASSIUM 4.7 mmol/L (3.5-5.1); SODIUM 140 mmol/L (136-145)
[2017-11-25 09:12] LABS: ANION GAP 12 MMOL/L (8-16); BLOOD UREA NITROGEN 56 mg/dL (7-18); CALCIUM 8.2 mg/dL (8.5-10.1); CO2 26 mmol/L (21-32); CREATININE 1.4 mg/dL (0.7-1.3); GLUCOSE,RANDOM 109 mg/dL (74-106)
--- NOTE | 2017-11-25 09:29 | PN ---
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 (short form) - Note 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: PULMONARY COMPLAINING OF LEFT ARM DISCOMFORT VSS/AFEBRILE Constitutional: Yes: Mild Distress Eyes: Yes: Conjunctiva Clear, EOM Intact HENT: Yes: Atraumatic, Normocephalic Neck: Yes: Supple, Trachea Midline Cardiovascular: Yes: Pulse Irregular Respiratory: Yes: Diminished (distant breath sounds) ...Clubbing: No Gastrointestinal: Yes: Normal Bowel Sounds, Soft. No: Tenderness Edema: Yes (trace) Neurological: Yes: Alert, Oriented Labs: REVIEWED - Results Chest X-ray: Report Reviewed, Image Reviewed (basilar atelectasis) LEFT ARM DUPLEX REVIEWED Assessment/Plan Seizures Acute COPD Exacerbation Chronic Hypoxic Respiratory Failure LV Diastolic Dysfunction Atrial Fibrillation Acute on Chronic Renal Failure h/o CVA CAD HTN Hyperlipidemia - short course of empiric medrol - inhaled bronchodilators - O2 to keep Spo2 >90% - continue home lasix - monitor urine output, creatinine - rate control - monitor left arm hematoma Kane GHOTRA MD -
--- NOTE | 2017-11-25 09:31 | PN ---
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 (short form) - Note 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: PULMONARY VSS/AFEBRILE COMPLAINING OF LEFT ARM DISCOMFORT Constitutional: Yes: Mild Distress Eyes: Yes: Conjunctiva Clear, EOM Intact HENT: Yes: Atraumatic, Normocephalic Neck: Yes: Supple, Trachea Midline Cardiovascular: Yes: Pulse Irregular Respiratory: Yes: Diminished (distant breath sounds) ...Clubbing: No Gastrointestinal: Yes: Normal Bowel Sounds, Soft. No: Tenderness Edema: Yes (trace) Neurological: Yes: Alert, Oriented Labs: NOTED - Results Chest X-ray: Report Reviewed, Image Reviewed (basilar atelectasis) DUPLEX LEFT ARM REVIEWED Assessment/Plan Seizures Acute COPD Exacerbation Chronic Hypoxic Respiratory Failure LV Diastolic Dysfunction Atrial Fibrillation Acute on Chronic Renal Failure h/o CVA CAD HTN Hyperlipidemia Left arm hematoma - short course of empiric medrol - inhaled bronchodilators - O2 to keep Spo2 >90% - continue home lasix - monitor urine output, creatinine - rate control - monitor left arm hematoma Kane GHOTRA MD
[2017-11-25] MEDS ORDERED: PT OWN MED DRAWER 7, Y5N ONE (09:32)
[2017-11-25] MEDS: DULoxetine HCL 30 MG CAPSULE.DR (FP) PO SCH (09:33)
[2017-11-25] MEDS: levETIRAcetam 250 MG TABLET (FP) PO SCH (09:34)
[2017-11-25] MEDS: ISOSORBIDE DINITRATE 20 MG TABLET (FP) PO SCH (09:34)
[2017-11-25] MEDS: LISINOPRIL 20 MG TABLET (FP) PO SCH (09:35)
[2017-11-25] MEDS: BUDESONIDE/FORMETEROL FUMARATE 160/4.5 mcg INHALER IH SCH (09:35)
[2017-11-25] MEDS: FUROSEMIDE 40 MG TABLET (FP) PO SCH (09:35)
[2017-11-25] MEDS: PANTOPRAZOLE 40 MG TABLET (FP) PO SCH (09:35)
[2017-11-25] MEDS: FLUOCINONIDE 0.05% CREAM (15 GM TUBE) TP SCH (09:36)
[2017-11-25] MEDS ORDERED: FUROSEMIDE 20 MG TABLET (FP) PO SCH (11:14)
[2017-11-25] MEDS ORDERED: metoPROLOL SUCCINATE 25 MG TAB.SR.24H (FP) PO SCH (11:14)
[2017-11-25] MEDS ORDERED: ISOSORBIDE DINITRATE 10 MG TABLET (FP) PO SCH (11:14)
[2017-11-25] MEDS ORDERED: SODIUM CHLORIDE 500 ML IV STA ×3 (11:17→19:43)
[2017-11-25 11:28] LABS: ARTERIAL BLD GAS O2 SATURATION 74.7 % (90-98.9); ARTERIAL BLOOD GAS BASE EXCESS 0.1 meq/l (-2-2); ARTERIAL BLOOD GAS PCO2 32.4 mmHg (35-45); ARTERIAL BLOOD GAS pH 7.46 (7.35-7.45)
[2017-11-25 11:33] LABS: ARTERIAL BLOOD GAS PO2 43.1 mmHg (70-100)
--- NOTE | 2017-11-25 12:24 | RAPID ---
Physical Examination Vital Signs: Vital Signs Temperature 97.6 F 11/25/17 05:00 Pulse Rate 67 11/25/17 05:00 Respiratory Rate 20 11/25/17 05:00 Blood Pressure 89/65 11/25/17 05:00 O2 Sat by Pulse Oximetry (%) 96 11/24/17 21:00 Labs: CBC, BMP 11/24/17 07:25 11/25/17 07:00 Rapid Response - Rapid Response Assessment: Rapid response called at 10:57am. Primary team arrived. Pt was noted to be hypotensive with O2 satn at 70s. reported pt had seizure like activity just before he was noted to be hypoxic. Pt was awake, alert, oriented, on face mask. EKG and CXR done stat. ABG revealed isolated hypoxemia. Physical exam: VS BP 83/58 HR 69 O2 sat 75% GENERAL: Awake, alert, and fully oriented, on face mask EYES: Pupils equal, round and reactive to light, extraocular movements intact EARS, NOSE, THROAT: Ears normal, nares patent, oropharynx clear without exudates. Moist mucous membranes. LUNGS: wheezes bilaterally and diffusely, no accessory muscle use HEART: Regular rate and rhythm ABDOMEN: Soft, nontender, not distended, NABS LOWER EXTREMITIES: 2+ dp pulses, warm, well-perfused. No calf tenderness. No peripheral edema. PSYCHIATRIC: Cooperative. Good eye contact. Appropriate mood and affect. SKIN: large hematoma on RUE from midway of arm down to elbow. Assessment/Plan Acute on chronic hypoxic respiratory failure - will rule out cardiac vs pulmonary (PE or COPD exacerbation) vs seizure (r/o infection) - EKG, CXR stat - ABG stat - CBC with differential - IV fluids given - transferred to ICU
[2017-11-25 12:36] LABS: BASO % 0.1 % (0-2.0); EOS % 0.1 % (0-4.5); LYMPH % 0.9 % (8-40); MCH 27.9 pg (25.7-33.7); MCHC 32.6 g/dl (32.0-35.9); MEAN CELL VOLUME 85.6 fl (80-96); MONO % 2.1 % (3.8-10.2); NEUT % 96.8 % (42.8-82.8); PLATELET COUNT 156 K/MM3 (134-434); RBC 4.32 M/mm3 (4.00-5.60); RDW 16.7 % (11.9-15.9); WHITE BLOOD COUNT 20.2 K/mm3 (4.0-10.0)
[2017-11-25] MEDS ORDERED: ALBUTEROL SO4 0.083% IH SOL 2.5 MG/3 ML VIAL.NEB. NEB PRN (12:40)
--- NOTE | 2017-11-25 12:56 | PN ---
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, Physician History of Present Illness: Pt seen and examined at bedside. A rapid response was called for hypotension and hypoxia. He was transferred to the ICU. He is awake and verbal. - Current Medication List Current Medications: Active Medications Acetaminophen (Tylenol -) 650 mg PO Q6H PRN PRN Reason: PAIN 1-5 AND/OR FEVER Last Admin: 11/24/17 12:28 Dose: 650 mg Albuterol Sulfate (Ventolin 0.083% Nebulizer Soln -) 1 amp NEB Q4H PRN PRN Reason: SHORT OF BREATH/WHEEZING Albuterol/Ipratropium (Duoneb -) 1 amp NEB RBID DIANNE Aspirin (Ecotrin -) 81 mg PO DAILY [facility] Last Admin: 11/24/17 09:00 Dose: 81 mg Atorvastatin Calcium (Lipitor -) 20 mg PO HS [facility] Last Admin: 11/24/17 21:45 Dose: 20 mg Chlorhexidine Gluconate (Hibiclens For Decolonization -) 1 applic TP HS DIANNE Diltiazem HCl (Cardizem Cd -) 120 mg PO DAILY [facility] Last Admin: 11/25/17 09:33 Dose: 120 mg Duloxetine HCl (Cymbalta -) 60 mg PO DAILY [facility] Last Admin: 11/25/17 09:33 Dose: 60 mg Fluocinonide (Lidex 0.05% Cream -) 1 applic TP DAILY [facility] Last Admin: 11/25/17 09:36 Dose: 1 applic Furosemide (Lasix -) 20 mg PO DAILY [facility] Isosorbide Dinitrate (Isordil -) 10 mg PO BIDISORDIL [facility] Levetiracetam (Keppra -) 250 mg PO BID [facility] Last Admin: 11/25/17 09:34 Dose: 250 mg Methylprednisolone Sodium Succinate (Solu-Medrol -) 40 mg IVPUSH Q8H-IV [facility] Last Admin: 11/25/17 09:36 Dose: 40 mg Metoprolol Succinate (Toprol Xl -) 25 mg PO BID [facility] Mupirocin (Bactroban Ointment (For Decolonization) -) 1 applic NS BID [facility] Stop: 11/30/17 21:59 Pantoprazole Sodium (Protonix -) 40 mg PO DAILY [facility] Last Admin: 11/25/17 09:35 Dose: 40 mg Pregabalin (Lyrica -) 100 mg PO TID [facility] Last Admin: 11/25/17 06:32 Dose: 100 mg Tamsulosin HCl (Flomax -) 0.4 mg PO HS [facility] Last Admin: 11/24/17 21:45 Dose: 0.4 mg - Objective Vital Signs: Vital Signs Temperature 97.6 F 11/25/17 05:00 Pulse Rate 64 11/25/17 12:20 Respiratory Rate 20 11/25/17 05:00 Blood Pressure 89/65 11/25/17 05:00 O2 Sat by Pulse Oximetry (%) 96 11/25/17 12:20 Constitutional: Yes: Calm Eyes: Yes: Conjunctiva Clear HENT: Yes: Atraumatic Neck: Yes: Supple Cardiovascular: Yes: S1, S2 Respiratory: Yes: On Nasal O2 Gastrointestinal: Yes: Normal Bowel Sounds, Soft Genitourinary: Yes: WNL Musculoskeletal: Yes: Muscle Weakness Edema: LUE: 1+ Integumentary: Yes: Other (left arm bruising) Neurological: Yes: Oriented Psychiatric: Yes: Oriented Labs: CBC, BMP 11/25/17 12:20 11/25/17 07:00 INR, PTT INR 1.96 (0.83-1.09) H 11/23/17 21:35 - ....Imaging Chest X-ray: Report Reviewed Problem List - Problems (1) Fall Code(s): W19.XXXA - UNSPECIFIED FALL, INITIAL ENCOUNTER (2) CAD (coronary artery disease) Code(s): I25.10 - ATHSCL HEART DISEASE OF [place] CORONARY ARTERY W/O ANG PCTRS (3) CHF (congestive heart failure) Code(s): I50.9 - HEART FAILURE, UNSPECIFIED (4) CKD (chronic kidney disease) Code(s): N18.9 - CHRONIC KIDNEY DISEASE, UNSPECIFIED Qualifiers: Qualified Code(s): N18.3 - Chronic kidney disease, stage 3 (moderate) Assessment/Plan Current Medications Generic Name Dose Route Start Last Admin Trade Name Freq PRN Reason Stop Dose Admin Acetaminophen 650 mg 11/24/17 04:55 11/24/17 12:28 Tylenol - PO 650 mg Q6H PRN Administration PAIN 1-5 AND/OR FEVER Albuterol Sulfate 1 amp 11/25/17 12:40 Ventolin 0.083% Nebulizer Soln - NEB Q4H PRN SHORT OF BREATH/WHEEZING Albuterol/Ipratropium 1 amp 11/25/17 20:00 Duoneb - NEB RBID DIANNE Aspirin 81 mg 11/24/17 10:00 11/24/17 09:00 Ecotrin - PO 81 mg DAILY [facility] Administration Atorvastatin Calcium 20 mg 11/24/17 22:00 11/24/17 21:45 Lipitor - PO 20 mg HS [facility] Administration Chlorhexidine Gluconate 1 applic 11/25/17 22:00 Hibiclens For Decolonization - TP HS [facility] Diltiazem HCl 120 mg 11/24/17 10:00 11/25/17 09:33 Cardizem Cd - PO 120 mg DAILY [facility] Administration Duloxetine HCl 60 mg 11/24/17 10:00 11/25/17 09:33 Cymbalta - PO 60 mg DAILY [facility] Administration Fluocinonide 1 applic 11/24/17 10:00 11/25/17 09:36 Lidex 0.05% Cream - TP 1 applic DAILY [facility] Administration Furosemide 20 mg 11/25/17 11:14 Lasix - PO DAILY [facility] Isosorbide Dinitrate 10 mg 11/25/17 11:14 Isordil - PO BIDISORDIL [facility] Levetiracetam 250 mg 11/24/17 11:30 11/25/17 09:34 Keppra - PO 250 mg BID [facility] Administration Methylprednisolone Sodium Succinate 40 mg 11/24/17 13:45 11/25/17 09:36 Solu-Medrol - IVPUSH 40 mg Q8H-IV [facility] Administration Metoprolol Succinate 25 mg 11/25/17 11:14 Toprol Xl - PO BID [facility] Mupirocin 1 applic 11/25/17 22:00 Bactroban Ointment (For Decolonization) - NS 11/30/17 21:59 BID DIANNE Pantoprazole Sodium 40 mg 11/24/17 10:00 11/25/17 09:35 Protonix - PO 40 mg DAILY [facility] Administration Pregabalin 100 mg 11/24/17 14:00 11/25/17 06:32 Lyrica - PO 100 mg TID DIANNE Administration Tamsulosin HCl 0.4 mg 11/24/17 22:00 11/24/17 21:45 Flomax - PO 0.4 mg HS [facility] Administration Selected Entries 11/25/17 11/25/17 01:00 05:00 Blood Pressure 104/67 89/65 Impression 1. CKD 2. COPD exacerbation 3. AAA 4. hx CVA 5. a-fib 6. HTN 7. insomnia 8. hypoxic resp failure 9. CAD 10. BPH 12. microscopic hematuria 13. hypoxia Plan - creatinine is actually improved - hold lasix as bp is low - hold bp meds until he improved - cardiology eval as he has a-fib - monitor heart rate - agree with transfer to ICU - avoid nsaids - hold steve until bp improves - will follow
--- NOTE | 2017-11-25 13:10 | CONSULT ---
Consultation: REQUESTING PROVIDER: CONSULT REQUEST: We have been asked to medically evaluate this patient for desatturation. HISTORY OF PRESENT ILLNESS: Patient is a 77 y/o male with a history of afib, HTN, HLD, CAD, COPD, DM, PAD, AAA who is here for evaluation of seizure like activity. A rapid response was called for patient as his oxygen saturation was going down. Patient has a history of acute on chronic hypoxic respiratory failure, with a recent admission of one week ago. Per nurse he has been afebrile with minimal sputum production. Patient has a large hematoma on his left upper extremity, his xarelto is currently being held. REVIEW OF SYSTEMS: CONSTITUTIONAL: Absent: fever, chills, diaphoresis, generalized weakness, malaise, loss of appetite, weight change HEENT: Absent: rhinorrhea, nasal congestion, throat pain, throat swelling, difficulty swallowing, mouth swelling, ear pain, eye pain, visual changes CARDIOVASCULAR: Absent: chest pain, syncope, palpitations, irregular heart rate, lightheadedness , peripheral edema RESPIRATORY: shortness of breath Absent: cough, dyspnea with exertion, orthopnea, wheezing, stridor, hemoptysis GASTROINTESTINAL: Absent: abdominal pain, abdominal distension, nausea, vomiting, diarrhea, constipation, melena, hematochezia GENITOURINARY: Absent: dysuria, frequency, urgency, hesitancy, hematuria, flank pain, genital pain MUSCULOSKELETAL: Absent: myalgia, arthralgia, joint swelling, back pain, neck pain SKIN: Absent: rash, itching, pallor HEMATOLOGIC/IMMUNOLOGIC: Absent: easy bleeding, easy bruising, lymphadenopathy, frequent infections ENDOCRINE: Absent: unexplained weight gain, unexplained weight loss, heat intolerance, cold intolerance NEUROLOGIC: Absent: headache, focal weakness or paresthesias, dizziness, unsteady gait, seizure, mental status changes, bladder or bowel incontinence PSYCHIATRIC: Absent: anxiety, depression, suicidal or homicidal ideation, hallucinations. PHYSICAL EXAMINATION Vital Signs Temperature 97.6 F 11/25/17 05:00 Pulse Rate 67 11/25/17 05:00 Respiratory Rate 20 11/25/17 05:00 Blood Pressure 89/65 11/25/17 05:00 O2 Sat by Pulse Oximetry (%) 96 11/24/17 21:00 GENERAL: Awake, alert, and fully oriented EYES: Pupils equal, round and reactive to light, extraocular movements intact EARS, NOSE, THROAT: Ears normal, nares patent, oropharynx clear without exudates. Moist mucous membranes. LUNGS: wheezes bilaterally and diffusely, no accessory muscle use HEART: Regular rate and rhythm, ABDOMEN: Soft, nontender, not distended, LOWER EXTREMITIES: 2+ dp pulses, warm, well-perfused. No calf tenderness. No peripheral edema. PSYCHIATRIC: Cooperative. Good eye contact. Appropriate mood and affect. SKIN: large eccymoses on LUE over elbox and extending up midway of arm CBCD WBC 13.6 K/mm3 (4.0-10.0) H 11/24/17 07:25 RBC 5.15 M/mm3 (4.00-5.60) 11/24/17 07:25 Hgb 14.0 GM/dL (11.7-16.9) 11/24/17 07:25 Hct 43.6 % (35.4-49) 11/24/17 07:25 MCV 84.6 fl (80-96) 11/24/17 07:25 MCHC 32.2 g/dl (32.0-35.9) 11/24/17 07:25 RDW 16.3 % (11.9-15.9) H 11/24/17 07:25 Plt Count 160 K/MM3 (134-434) D 11/24/17 07:25 MPV 11.0 fl (7.5-11.1) 11/24/17 07:25 CMP Sodium 140 mmol/L (136-145) 11/25/17 07:00 Potassium 4.7 mmol/L (3.5-5.1) 11/25/17 07:00 Chloride 102 mmol/L (98-107) 11/25/17 07:00 Carbon Dioxide 26 mmol/L (21-32) 11/25/17 07:00 Anion Gap 12 MMOL/L (8-16) 11/25/17 07:00 BUN 56 mg/dL (7-18) H 11/25/17 07:00 Creatinine 1.4 mg/dL (0.7-1.3) H 11/25/17 07:00 Creat Clearance w eGFR 48.89 (>60) 11/25/17 07:00 Calcium 8.2 mg/dL (8.5-10.1) L 11/25/17 07:00 Total Bilirubin 0.8 mg/dL (0.2-1.0) 11/23/17 21:35 AST 17 U/L (15-37) D 11/23/17 21:35 ALT 37 U/L (12-78) D 11/23/17 21:35 Alkaline Phosphatase 53 U/L (45-117) 11/23/17 21:35 Total Protein 6.9 g/dl (6.4-8.2) 11/23/17 21:35 Albumin 3.4 g/dl (3.4-5.0) 11/23/17 21:35 Active Medications Acetaminophen (Tylenol -) 650 mg PO Q6H PRN PRN Reason: PAIN 1-5 AND/OR FEVER Last Admin: 11/24/17 12:28 Dose: 650 mg Albuterol Sulfate (Ventolin 0.083% Nebulizer Soln -) 1 amp NEB RQID [facility] Last Admin: 11/25/17 07:20 Dose: 1 amp Aspirin (Ecotrin -) 81 mg PO DAILY [facility] Last Admin: 11/24/17 09:00 Dose: 81 mg Atorvastatin Calcium (Lipitor -) 20 mg PO HS [facility] Last Admin: 11/24/17 21:45 Dose: 20 mg Budesonide/Formoterol Fumarate (Symbicort 160/4.5mcg -) 1 puff IH BID [facility] Last Admin: 11/25/17 09:35 Dose: 1 puff Diltiazem HCl (Cardizem Cd -) 120 mg PO DAILY [facility] Last Admin: 11/25/17 09:33 Dose: 120 mg Duloxetine HCl (Cymbalta -) 60 mg PO DAILY [facility] Last Admin: 11/25/17 09:33 Dose: 60 mg Fluocinonide (Lidex 0.05% Cream -) 1 applic TP DAILY [facility] Last Admin: 11/25/17 09:36 Dose: 1 applic Furosemide (Lasix -) 20 mg PO DAILY [facility] Sodium Chloride (Normal Saline -) 500 mls @ 500 mls/hr IV ASDIR STA Stop: 11/25/17 12:16 Isosorbide Dinitrate (Isordil -) 10 mg PO BIDISORDIL [facility] Levetiracetam (Keppra -) 250 mg PO BID [facility] Last Admin: 11/25/17 09:34 Dose: 250 mg Methylprednisolone Sodium Succinate (Solu-Medrol -) 40 mg IVPUSH Q8H-IV [facility] Last Admin: 11/25/17 09:36 Dose: 40 mg Metoprolol Succinate (Toprol Xl -) 25 mg PO BID [facility] Mupirocin (Bactroban Ointment (For Decolonization) -) 1 applic NS BID [facility] Stop: 11/30/17 21:59 Mupirocin (Bactroban Ointment (For Decolonization) -) 1 applic NS BID [facility] Stop: 11/30/17 21:59 Pantoprazole Sodium (Protonix -) 40 mg PO DAILY [facility] Last Admin: 11/25/17 09:35 Dose: 40 mg Pregabalin (Lyrica -) 100 mg PO TID [facility] Last Admin: 11/25/17 06:32 Dose: 100 mg Tamsulosin HCl (Flomax -) 0.4 mg PO HS [facility] Last Admin: 11/24/17 21:45 Dose: 0.4 mg ASSESSMENT/PLAN: Patient is a 77 y/o male with a history of afib, HTN, HLD, CAD, COPD, DM, PAD, AAA who is here with acute on chronic hypoxic respiratory failure. Neuro Seizure like actvity/ vs fall - at baseline mental status A 7 O x3 - Neurology Dr. Melo: may be partial seizure - Keppra 250 mg po BID - head CT: no acute intracranial hemorrhage or acute vascular territory infarction - EEG when possible Cardio afib/CAD/HTN - anticoagulation held for three days with patients large hematoma - diltiazem 120 mg po - aspirin 81 mg po daily - Isosorbide dinitrate 10 mg po - lipitor 20 mg po hs - metoprolol 25 mg po BID - currently rate controlled and stable Pulm acute on chronic hypoxic respiratory failure 2/2 to COPD exacerbation - possibly 2/2 to LE DVT r/o with doppler, possibly infection r/o infectious causes - ABG: ph 7.46 CO2 32.4 O2 4 - A-a gradient 629 - CXR: prominent mediastnum, may be LL base atelectasis - BIPAP COPD - Methylprednisolone 40 mg IV push q8h, short course - duonebs BID - albuterol q4h Renal - furosemide 20 mg po daily - monitor I's % O's Vascular - UE doppler: no evidence or arterial dissection or aneyursm , superficial hematomas in LUE - f/u LE dopplers GI ppx - protonix 40 mg po daily BPH - tamsulosin .4 mg Endocrine DM - Lyrica 100 mg po TID - A1 C: 6.0 depression - cymbalta 60 mg po daily Dispo: We will continue to follow the patient. Thank you for this consultative opportunity. Visit type - Emergency Visit Emergency Visit: No - New Patient This patient is new to me today: Yes Date on this admission: 11/25/17 - Critical Care Critical Care patient: Yes Total Critical Care Time (in minutes): 38 Critical Care Statement: The care of this patient involved high complexity decision making to prevent further life threatening deterioration of the patient 's condition and/or to evaluate & treat vital organ system(s) failure or risk of failure.
--- NOTE | 2017-11-25 13:14 | EKG ---
Test Reason : Blood Pressure : / mmHG Vent. Rate : 070 BPM Atrial Rate : 070 BPM P-R Int : 142 ms QRS Dur : 112 ms QT Int : 452 ms P-R-T Axes : 035 257 089 degrees QTc Int : 488 ms POOR DATA QUALITY, INTERPRETATION MAY BE ADVERSELY AFFECTED Atrial-sensed ventricular-paced rhythm Biventricular pacemaker detected ABNORMAL ECG WHEN COMPARED WITH ECG OF 23-NOV-2017 22:37, PREMATURE VENTRICULAR COMPLEXES ARE NO LONGER PRESENT VENT. RATE HAS DECREASED BY 25 BPM RAPID RESPONSE EKG Confirmed by LUIS LALA MD ([id number]) on 11/25/2017 1:13:59 PM Referred By: [place] SANDERS Confirmed By:LUIS LALA MD
--- NOTE | 2017-11-25 13:40 | EKG ---
Test Reason : Blood Pressure : / mmHG Vent. Rate : 095 BPM Atrial Rate : 095 BPM P-R Int : 130 ms QRS Dur : 114 ms QT Int : 384 ms P-R-T Axes : 073 264 082 degrees QTc Int : 482 ms POOR DATA QUALITY, INTERPRETATION MAY BE ADVERSELY AFFECTED Atrial-sensed ventricular-paced rhythm WITH OCCASIONAL PREMATURE VENTRICULAR COMPLEXES Biventricular pacemaker detected ABNORMAL ECG WHEN COMPARED WITH ECG OF 14-NOV-2017 09:42, PREMATURE VENTRICULAR COMPLEXES ARE NOW PRESENT VENT. RATE HAS DECREASED BY 48 BPM Confirmed by LUIS LALA MD ([id number]) on 11/25/2017 1:39:57 PM Referred By: Confirmed By:LUIS LALA MD
[2017-11-25] MEDS ORDERED: oxyCODONE HCL 5 MG TABLET ONE (14:09)
[2017-11-25] MEDS ORDERED: ACETAMINOPHEN 325 MG TABLET (FP) PO ONE (14:11)
[2017-11-25 14:23] LABS: ANISOCYTOSIS 2+; MACROCYTOSIS 0; PLATELET ESTIMATE NORMAL
[2017-11-25] MEDS ORDERED: oxyCODONE HCL 5 MG TABLET PO ONE (14:30)
[2017-11-25] MEDS ORDERED: AZITHROMYCIN IVPB 500 MG in DEXTROSE 5%-WATER - 250 ML IVPB SCH (16:30)
[2017-11-25 17:55] LABS: ARTERIAL BLD GAS O2 SATURATION 92.7 % (90-98.9); ARTERIAL BLOOD GAS BASE EXCESS 0.6 meq/l (-2-2); ARTERIAL BLOOD GAS PCO2 33.9 mmHg (35-45); ARTERIAL BLOOD GAS PO2 68.2 mmHg (70-100); ARTERIAL BLOOD GAS pH 7.46 (7.35-7.45)
[2017-11-25 17:56] LABS: ALLENS TEST POSITIVE
--- NOTE | 2017-11-25 18:19 | CON.CARD ---
Consult Consult Specialty:: cardiololgy Reason for Consultation:: AF; VT; hypotension - History of Present Illness Chief Complaint: Pt denies chest pain or dyspnea. History of Present Illness: The patient is a 77 year old white man with a significant PMH of AAA repair ( 2011), CVA, TAA, afib, DVT, CAD, CHF, COPD, CKD, BPH, PPM, hypertension, hyperlipidemia, knee replacement and cataract repair who presents to the emergency department via EMS with a seizure like activity prior to arrival. The patient's reports that the patient had been given a nebulizer treatment earlier this evening . she states that subsequently he patient went to walk to the bathroom and fell. She notes that the patient was shaking and hit his left arm. The patient's states that she noticed similar activity in the patient about 2 days ago but was not sure if it was a stroke. The patient's states that the patient has otherwise been eating and drinking normally. The patient endorses left arm pain , secondary to injury and trouble breathing. The patient denies any other symptoms. He denies any fever, chills, nausea, vomit, diarrhea , constipation or urinary symptoms. He denies any chest pain,headache and dizziness. The patient denies any other complaints. 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 NURSE: Yes: CVA, Seizure Cardio/Vascular: Yes: AFIB, Aneurysm, CAD, CHF, HTN, Hyperlipdemia, Murmur, Other (peripheral artery disease) Pulmonary: Yes: COPD Renal/: Yes: BPH - Past Surgical History Past Surgical History: Yes: AAA Repair, Bypass (lower ext), Permanent Pacemaker , Stent (cardiac x 2) - Alcohol/Substance Use Hx Alcohol Use: No History of Substance Use: reports: None - Smoking History Smoking history: Never smoked Have you smoked in the past 12 months: No If you are a former smoker, when did you quit?: 2007 - Social History Usual Living Arrangement: With Spouse ADL: Family Assistance History of Recent Travel: No Home Medications - Allergies Allergies/Adverse Reactions: Allergies Allergy/AdvReac Type Severity Reaction Status Date / Time No Known Allergies Allergy Verified 11/23/17 21:04 - Home Medications Home Medications: Ambulatory Orders Albuterol 0.083% Nebulizer Suki [Ventolin 0.083% Nebulizer Soln -] 1 neb NEB QID 11/08/17 Aspirin [Ecotrin] 81 mg PO DAILY 11/08/17 Budesonide/Formeterol Fumarate [SYMBICORT 160/4.5mcg -] 1 inh PO BID 11/08/17 Duloxetine HCl [Cymbalta -] 60 mg PO DAILY 11/08/17 Ferrous Sulfate 325 mg PO DAILY 11/08/17 Fluocinonide 0.05% Cream [Lidex 0.05% Cream -] 1 applic TP DAILY 11/08/17 Isosorbide Dinitrate [Isordil -] 20 mg PO BID 11/08/17 Lovastatin 10 mg PO HS 11/08/17 Pantoprazole Sodium [Protonix] 40 mg PO DAILY 11/08/17 Pregabalin [Lyrica] 100 mg PO TID 11/08/17 Rivaroxaban [Xarelto -] 20 mg PO DAILY 11/08/17 Tamsulosin HCl [Flomax] 0.4 mg PO HS 11/08/17 Furosemide [Lasix -] 40 mg PO DAILY tablet 11/12/17 Diltiazem Cd [Cardizem Cd -] 120 mg PO DAILY #30 cap.cd.24h 11/15/17 Lisinopril [Prinivil] 40 mg PO DAILY #0 tablet 11/15/17 Metoprolol Succinate [Toprol XL -] 50 mg PO BID tab.sr.24h 11/15/17 Prednisone 10 mg PO BID #100 tablet 11/15/17 Family Disease History - Family Disease History Family History: Denies Review of Systems - Review of Systems Constitutional: reports: Weakness Eyes: reports: No Symptoms HENT: reports: No Symptoms Neck: reports: No Symptoms Cardiovascular: reports: Shortness of Breath Respiratory: reports: SOB Gastrointestinal: reports: No Symptoms Genitourinary: reports: No Symptoms Musculoskeletal: reports: Muscle Weakness Neurological: reports: Weakness Psychiatric: reports: Anxiety - Risk Factors Known Risk Factors: Yes: Age, Hypertension Vital Signs: Vital Signs Temperature 97.4 F L 11/25/17 16:45 Pulse Rate 62 11/25/17 17:15 Respiratory Rate 14 11/25/17 17:15 Blood Pressure 92/60 11/25/17 17:15 O2 Sat by Pulse Oximetry (%) 98 11/25/17 16:10 Constitutional: Yes: Anxious Eyes: Yes: WNL HENT: Yes: WNL Neck: Yes: WNL Respiratory: Yes: Regular Gastrointestinal: Yes: Soft Renal/: No: Anuria Heart Sounds: Yes: Split S2 Murmur: Yes: Systolic Murmur, Grade 2 Musculoskeletal: Yes: Muscle Weakness Edema: Yes Edema: LLE: Trace, RLE: Trace Peripheral Pulses WNL: No Peripheral Pulses: 1+ Right Popliteal, 1+ Left Doralis Pedis Integumentary: Yes: Venous Stasis Changes Neurological: Yes: Alert, Oriented, Weakness Psychiatric: Yes: Alert, Oriented - Other Data Labs, Other Data: CBC, BMP 11/25/17 12:20 11/25/17 07:00 INR, PTT INR 1.96 (0.83-1.09) H 11/23/17 21:35 Troponin, BNP 11/25/17 12:20 Troponin I < 0.02 Troponin, BNP 11/25/17 12:20 Troponin I < 0.02 Abnormal Lab Results 11/26/17 11/26/17 11/26/17 05:30 05:30 07:41 WBC 20.1 H Hgb 11.5 L MCHC 31.9 L RDW 17.3 H Absolute Neuts (auto) 19.6 H Neutrophils % 97.4 H Neutrophils % (Manual) 96.0 H Lymphocytes % 0.8 L Monocytes % 1.7 L Monocytes % (Manual) 3 L Sodium 119 L* D Chloride 85 L D 108 H D BUN 60 H 60 H Random Glucose 107 H Serum Osmolality Calcium 7.5 L 7.5 L Magnesium 2.7 H TSH 11/26/17 11/26/17 07:41 07:41 WBC Hgb MCHC RDW Absolute Neuts (auto) Neutrophils % Neutrophils % (Manual) Lymphocytes % Monocytes % Monocytes % (Manual) Sodium Chloride BUN Random Glucose Serum Osmolality 312 H Calcium Magnesium TSH 0.12 L D Imaging - Results Chest X-ray: Image Reviewed (no acute pathology) EKG: Image Reviewed (ventricular-paced rhythm) Problem List - Problems (1) Fall Code(s): W19.XXXA - UNSPECIFIED FALL, INITIAL ENCOUNTER Qualifiers: Encounter type: subsequent encounter Qualified Code(s): W19.XXXD - Unspecified fall, subsequent encounter (2) Seizure Code(s): R56.9 - UNSPECIFIED CONVULSIONS (3) Traumatic hematoma of left upper arm Code(s): S40.022A - CONTUSION OF LEFT UPPER ARM, INITIAL ENCOUNTER Qualifiers: Encounter type: initial encounter Qualified Code(s): S40.022A - Contusion of left upper arm, initial encounter (4) CAD (coronary artery disease) Code(s): I25.10 - ATHSCL HEART DISEASE OF [place] CORONARY ARTERY W/O ANG PCTRS Qualifiers: Coronary Disease-Associated Artery/Lesion type: [place] artery Associated angina: with stable angina (5) CHF (congestive heart failure) Assessment/Plan: F/u ECHO for LVEF, valve status. On diltiazem, metoprolol, furosemide. F/u Is and Os, daily weight, electrolytes, BNP, BUN/Cr. Code(s): I50.9 - HEART FAILURE, UNSPECIFIED (6) CKD (chronic kidney disease) Code(s): N18.9 - CHRONIC KIDNEY DISEASE, UNSPECIFIED Qualifiers: Chronic kidney disease stage: stage 3 (moderate) Qualified Code(s): N18.3 - Chronic kidney disease, stage 3 (moderate) (7) COPD (chronic obstructive pulmonary disease) Assessment/Plan: bronchodilators and steroids per pulmonology. Code(s): J44.9 - CHRONIC OBSTRUCTIVE PULMONARY DISEASE, UNSPECIFIED Qualifiers: COPD type: COPD with acute exacerbation Qualified Code(s): J44.1 - Chronic obstructive pulmonary disease with (acute) exacerbation (8) History of aortic aneurysm repair Code(s): Z98.890 - OTHER SPECIFIED POSTPROCEDURAL STATES; Z86.79 - PERSONAL HISTORY OF OTHER DISEASES OF THE CIRCULATORY SYSTEM (9) PAD (peripheral artery disease) Code(s): I73.9 - PERIPHERAL VASCULAR DISEASE, UNSPECIFIED (10) Hyperlipidemia Assessment/Plan: on atorvastatin. Code(s): E78.5 - HYPERLIPIDEMIA, UNSPECIFIED Qualifiers: (11) Afib Assessment/Plan: On metoprolol and diltiazem for HR, BP control. Warfarin held due to LUE hematoma. Code(s): I48.91 - UNSPECIFIED ATRIAL FIBRILLATION Qualifiers: Atrial fibrillation type: chronic Qualified Code(s): I48.2 - Chronic atrial fibrillation (12) Presence of cardiac pacemaker Code(s): Z95.0 - PRESENCE OF CARDIAC PACEMAKER
--- NOTE | 2017-11-25 18:21 | PN ---
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, Physician - Current Medication List Current Medications: Active Medications Acetaminophen (Tylenol -) 650 mg PO Q6H PRN PRN Reason: PAIN 1-5 AND/OR FEVER Last Admin: 11/24/17 12:28 Dose: 650 mg Albuterol Sulfate (Ventolin 0.083% Nebulizer Soln -) 1 amp NEB Q4H PRN PRN Reason: SHORT OF BREATH/WHEEZING Albuterol/Ipratropium (Duoneb -) 1 amp NEB RBID [facility] Aspirin (Ecotrin -) 81 mg PO DAILY [facility] Last Admin: 11/24/17 09:00 Dose: 81 mg Atorvastatin Calcium (Lipitor -) 20 mg PO HS [facility] Last Admin: 11/24/17 21:45 Dose: 20 mg Chlorhexidine Gluconate (Hibiclens For Decolonization -) 1 applic TP HS [facility] Diltiazem HCl (Cardizem Cd -) 120 mg PO DAILY [facility] Last Admin: 11/25/17 09:33 Dose: 120 mg Duloxetine HCl (Cymbalta -) 60 mg PO DAILY [facility] Last Admin: 11/25/17 09:33 Dose: 60 mg Fluocinonide (Lidex 0.05% Cream -) 1 applic TP DAILY [facility] Last Admin: 11/25/17 09:36 Dose: 1 applic Furosemide (Lasix -) 20 mg PO DAILY [facility] Azithromycin 500 mg/ Dextrose 250 mls @ 250 mls/hr IVPB DAILY [facility] Last Admin: 11/25/17 17:53 Dose: 250 mls/hr Isosorbide Dinitrate (Isordil -) 10 mg PO BIDISORDIL [facility] Last Admin: 11/25/17 17:52 Dose: Not Given Levetiracetam (Keppra -) 250 mg PO BID [facility] Last Admin: 11/25/17 09:34 Dose: 250 mg Methylprednisolone Sodium Succinate (Solu-Medrol -) 40 mg IVPUSH Q8H-IV [facility] Last Admin: 11/25/17 09:36 Dose: 40 mg Metoprolol Succinate (Toprol Xl -) 25 mg PO BID [facility] Mupirocin (Bactroban Ointment (For Decolonization) -) 1 applic NS BID [facility] Stop: 11/30/17 21:59 Pantoprazole Sodium (Protonix -) 40 mg PO DAILY [facility] Last Admin: 11/25/17 09:35 Dose: 40 mg Pregabalin (Lyrica -) 100 mg PO TID [facility] Last Admin: 11/25/17 14:05 Dose: 100 mg Tamsulosin HCl (Flomax -) 0.4 mg PO HS [facility] Last Admin: 11/24/17 21:45 Dose: 0.4 mg - Objective Vital Signs: Vital Signs Temperature 97.4 F L 11/25/17 16:45 Pulse Rate 62 11/25/17 17:15 Respiratory Rate 14 11/25/17 17:15 Blood Pressure 92/60 11/25/17 17:15 O2 Sat by Pulse Oximetry (%) 98 11/25/17 16:10 Cardiovascular: Yes: Bradycardia, S1, S2 Respiratory: Yes: CTA Bilaterally, On BiPap Gastrointestinal: Yes: Normal Bowel Sounds, Soft. No: Tenderness Neurological: Yes: Alert, Pre-Existing Deficit Labs: CBC, BMP 11/25/17 12:20 11/25/17 07:00 INR, PTT INR 1.96 (0.83-1.09) H 11/23/17 21:35 Problem List - Problems (1) Fall Assessment/Plan: -Physical therapy -CT head negative -Neurology consult -safety precautions Code(s): W19.XXXA - UNSPECIFIED FALL, INITIAL ENCOUNTER Qualifiers: Encounter type: subsequent encounter Qualified Code(s): W19.XXXD - Unspecified fall, subsequent encounter (2) Acute and chronic respiratory failure with hypoxia Code(s): J96.21 - ACUTE AND CHRONIC RESPIRATORY FAILURE WITH HYPOXIA (3) Seizure Code(s): R56.9 - UNSPECIFIED CONVULSIONS (4) Traumatic hematoma of left upper arm Code(s): S40.022A - CONTUSION OF LEFT UPPER ARM, INITIAL ENCOUNTER Qualifiers: Encounter type: initial encounter Qualified Code(s): S40.022A - Contusion of left upper arm, initial encounter (5) CAD (coronary artery disease) Assessment/Plan: -Statin -BB -On Isosorbide -Cardiac cath in the past with EF >40% -has ICM with permanent Cardiac resynchronization therapy defibrillator ([employer]OV[employer]ULER-D) as 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 in the past Code(s): I25.10 - ATHSCL HEART DISEASE OF [place] CORONARY ARTERY W/O ANG PCTRS Qualifiers: Coronary Disease-Associated Artery/Lesion type: [place] artery Associated angina: with stable angina (6) COPD (chronic obstructive pulmonary disease) Assessment/Plan: -On non re-breather now -CXR unremarkable -Pulmonary consult -Bronchodilators -Prednisone 10 mg po BID at home, would continue Code(s): J44.9 - CHRONIC OBSTRUCTIVE PULMONARY DISEASE, UNSPECIFIED Qualifiers: COPD type: COPD with acute exacerbation Qualified Code(s): J44.1 - Chronic obstructive pulmonary disease with (acute) exacerbation (7) Old cerebrovascular accident (CVA) without late effect Assessment/Plan: -Neurology consult -CT head negative -Unable to do MRI due to implantable device Code(s): Z86.73 - PRSNL HX OF TIA (TIA), AND CEREB INFRC W/O RESID DEFICITS (8) Paroxysmal atrial fibrillation Assessment/Plan: -On eliquis at home -Hold for another 24 hours due to LUE hematoma -restart eliquis if ok with cardio -Monitor H/H for any drop suggesting blood loss Code(s): I48.0 - PAROXYSMAL ATRIAL FIBRILLATION (9) Presence of cardiac pacemaker Code(s): Z95.0 - PRESENCE OF CARDIAC PACEMAKER (10) Acute kidney injury Assessment/Plan: -UA/UC pending -Nephrology consult -monitor Cr Code(s): N17.9 - ACUTE KIDNEY FAILURE, UNSPECIFIED
[2017-11-25] MEDS ORDERED: HEPARIN NA (PORCINE) 5,000 UNITS/ML 1ML VIAL IVPUSH PRN ×2 (18:42)
--- NOTE | 2017-11-25 18:48 | PN ---
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 (short form) - Note 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: Case discussed with primary and cardiology; would be appropriate to start heparin drip now that patient has been off his AC. Starting ancef empirically with sepsis workup. Elevated white count with hypotension. Source may be coming from arm/hematoma site causing cellulitis or possible aspiration PNA from previous vomiting. F/u sepsis work up.
[2017-11-25] MEDS ORDERED: HEPARIN SOD,PORK IN 0.45% NACL 25,000 UNIT/500 ML INFUS.BAG IVPB SCH (19:00)
[2017-11-25] MEDS: ALBUTEROL SO4 2.5/IPRATROPIUM 0.5 INH SOL 3 ML VIAL.NEB. NEB SCH (21:00)
[2017-11-25] MEDS: ATORVASTATIN CA 20 MG TABLET (FP) PO SCH (21:31)
[2017-11-25] MEDS: levETIRAcetam 500 MG TABLET (FP) PO SCH (21:31)
[2017-11-25] MEDS: CHLORHEXIDINE GLUCONATE 4% CLEANSER FOR DECOLONIZATION TP SCH (21:31)
[2017-11-25] MEDS: metoPROLOL SUCCINATE 25 MG TAB.SR.24H (FP) PO SCH (21:32)
[2017-11-25] MEDS: MUPIROCIN 2% TOPICAL OINTMENT FOR DECOLONIZATION NS SCH (21:34)
[2017-11-25] MEDS ORDERED: MUPIROCIN 2% TOPICAL OINTMENT FOR DECOLONIZATION NS SCH (22:00)
[2017-11-25] MEDS ORDERED: CHLORHEXIDINE GLUCONATE 4% CLEANSER FOR DECOLONIZATION TP SCH ×2 (22:00)
[2017-11-26] MEDS: methylPREDNISolone NA SUCC 40 MG/1 ML VIAL IVPUSH SCH ×3 (02:42→18:31)
[2017-11-26] MEDS: PREGABALIN 100 MG CAPSULE PO SCH ×3 (06:09→21:42)
[2017-11-26 06:19] LABS: BASO % 0.1 % (0-2.0); HEMATOCRIT 36.1 % (35.4-49); HEMOGLOBIN 11.5 GM/dL (11.7-16.9); LYMPH % 0.8 % (8-40); MCH 27.3 pg (25.7-33.7); MCHC 31.9 g/dl (32.0-35.9); MEAN CELL VOLUME 85.5 fl (80-96); MEAN PLT VOLUME 10.5 fl (7.5-11.1); MONO % 1.7 % (3.8-10.2); NEUT % 97.4 % (42.8-82.8); PLATELET COUNT 140 K/MM3 (134-434); RBC 4.23 M/mm3 (4.00-5.60); RDW 17.3 % (11.9-15.9); WHITE BLOOD COUNT 20.1 K/mm3 (4.0-10.0)
--- NOTE | 2017-11-26 06:35 | PN ---
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, Physician Chief Complaint: left arm swelling and bruising History of Present Illness: 77 yo male PMH of AAA repair 2012, CVA, TAA, afib, DVT, CAD, CHF, COPD, CKD, BPH , PPM, with Btr hypertension, hyperlipidemia, knee replacement and cataract repair who presents to the emergency department via EMS with a seizure like activity prior to arrival. Worsening pain in the left arm following initiation of anticoagulation this morning compared to initial assessment. Writhing in pain. - Current Medication List Current Medications: Active Medications Acetaminophen (Tylenol -) 650 mg PO Q6H PRN PRN Reason: FEVER Albuterol Sulfate (Ventolin 0.083% Nebulizer Soln -) 1 amp NEB Q4H PRN PRN Reason: SHORT OF BREATH/WHEEZING Albuterol/Ipratropium (Duoneb -) 1 amp NEB RBID [facility] Last Admin: 11/25/17 21:00 Dose: 1 amp Atorvastatin Calcium (Lipitor -) 20 mg PO HS [facility] Last Admin: 11/25/17 21:31 Dose: 20 mg Chlorhexidine Gluconate (Hibiclens For Decolonization -) 1 applic TP HS [facility] Last Admin: 11/25/17 21:31 Dose: 1 applic Diltiazem HCl (Cardizem Cd -) 120 mg PO DAILY [facility] Duloxetine HCl (Cymbalta -) 60 mg PO DAILY [facility] Fluocinonide (Lidex 0.05% Cream -) 1 applic TP DAILY [facility] Furosemide (Lasix -) 20 mg PO DAILY [facility] Heparin Sodium (Porcine) (Heparin -) 1,000 unit IVPUSH PRN PRN PRN Reason: Heparin Heparin Sodium (Porcine) (Heparin -) 5,000 unit IVPUSH PRN PRN PRN Reason: Heparin Last Admin: 11/26/17 03:57 Dose: 5,000 unit Cefazolin Sodium 1 gm/ (Dextrose) 50 mls @ 100 mls/hr IVPB DAILY [facility] HEPARIN SOD,PORK IN 0.45% NACL (Heparin-1/2ns 25,000 Units/500) 25,000 unit in 500 mls @ 16 mls/hr IVPB TITR [facility]; Protocol Last Titration: 11/26/17 03:57 Dose: 950 units/hr, 19 mls/hr Isosorbide Dinitrate (Isordil -) 10 mg PO BIDISORDIL [facility] Levetiracetam (Keppra -) 250 mg PO BID [facility] Last Admin: 11/25/17 21:31 Dose: 250 mg Methylprednisolone Sodium Succinate (Solu-Medrol -) 40 mg IVPUSH Q8H-IV [facility] Last Admin: 11/26/17 02:42 Dose: 40 mg Metoprolol Succinate (Toprol Xl -) 25 mg PO BID [facility] Last Admin: 11/25/17 21:32 Dose: Not Given Mupirocin (Bactroban Ointment (For Decolonization) -) 1 applic NS BID [facility] Stop: 11/30/17 21:59 Last Admin: 11/25/17 21:34 Dose: 1 applic Pantoprazole Sodium (Protonix -) 40 mg PO DAILY [facility] Pregabalin (Lyrica -) 100 mg PO TID [facility] Last Admin: 11/26/17 06:09 Dose: 100 mg - Objective Vital Signs: Vital Signs Temperature 97.2 F L 11/26/17 02:00 Pulse Rate 60 11/26/17 04:00 Respiratory Rate 21 11/26/17 04:00 Blood Pressure 90/47 11/26/17 04:00 O2 Sat by Pulse Oximetry (%) 99 11/26/17 03:04 Vital Signs Period Temp Pulse Resp BP Sys/Varghese Pulse Ox Last 24 Hr 97.2 F-98.7 F 60-68 14-21 74-160/47-99 96-100 Intake & Output 11/25/17 11/25/17 11/26/17 15:59 23:59 07:59 Intake Total 280 1400 Output Total 300 Balance -20 1400 Intake: IV 1000 Normal Saline - 500 ml @ 500 500 mls/hr IV [facility]IR STA Rx#:[id number] Normal Saline - 500 ml @ 500 500 mls/hr IV [facility]IR STA Rx#:[id number] IVPB 250 Oral 280 150 Output: Urine 300 Void 300 Other: Voiding Method Urinal Incontinent Constitutional: Yes: Well Nourished, No Distress, Calm Eyes: Yes: Conjunctiva Clear, EOM Intact HENT: Yes: Atraumatic, Normocephalic Neck: Yes: Supple, Trachea Midline Cardiovascular: Yes: S1, S2 Respiratory: Yes: Regular, CTA Bilaterally, On BiPap Gastrointestinal: Yes: Normal Bowel Sounds, Soft ...Rectal Exam: Yes: Deferred Extremities: No: Cool, Cyanosis Edema: Yes Edema: LUE: 2+ Peripheral Pulses: Left Radial: 2+, Right Radial: 2+ Neurological: Yes: Alert, Oriented Psychiatric: Yes: Alert, Oriented Labs: INR, PTT INR 1.96 (0.83-1.09) H 11/23/17 21:35 Problem List - Problems (1) Traumatic hematoma of left upper arm Assessment/Plan: 77 yo RHD male MMP s/p L CTR [address] Charlie Gilman, low index of suspicion for acute compartment syndrome, hematomas have been demonstrated to be superficial. WBC >20, lactic acid 1.6, radial pulse exam 2+. He is very uncomfortable related to stretch on the skin. Well healed scars volar forearm related to previous surgery. His vascular surgeon is Dr. Rupal Randhawa [facility]; he initially had left arm arterial access for a left arm leaking aneurysm 2015. He had an intraoperative CVA at that time. Since that surgery his left arm developed pain and swelling. He was noted to have a hematoma and subsequently had a duplex performed which demonstrated a pseudoaneurysm, which was treated with thrombin injections. At present he has an expanding hematoma in the left arm, worsening hematoma after initiation of anticoagulation. Elevation above heart level IV antibiotics per ID Consider holding anticoagulation Correct coagulopathy Consider discussion transfer to Dr. Randhawa Vascular surgery evaluation PT evaluation for Edema management and ROM will follow Thank you for the opportunity to participate in the care of this patient. Code(s): S40.022A - CONTUSION OF LEFT UPPER ARM, INITIAL ENCOUNTER Qualifiers: Encounter type: initial encounter Qualified Code(s): S40.022A - Contusion of left upper arm, initial encounter (2) Fall Code(s): W19.XXXA - UNSPECIFIED FALL, INITIAL ENCOUNTER Qualifiers: Encounter type: subsequent encounter Qualified Code(s): W19.XXXD - Unspecified fall, subsequent encounter (3) CAD (coronary artery disease) Code(s): I25.10 - ATHSCL HEART DISEASE OF [place] CORONARY ARTERY W/O ANG PCTRS Qualifiers: Coronary Disease-Associated Artery/Lesion type: [place] artery Associated angina: with stable angina (4) COPD (chronic obstructive pulmonary disease) Code(s): J44.9 - CHRONIC OBSTRUCTIVE PULMONARY DISEASE, UNSPECIFIED Qualifiers: COPD type: COPD with acute exacerbation Qualified Code(s): J44.1 - Chronic obstructive pulmonary disease with (acute) exacerbation (5) History of aortic aneurysm repair Code(s): Z98.890 - OTHER SPECIFIED POSTPROCEDURAL STATES; Z86.79 - PERSONAL HISTORY OF OTHER DISEASES OF THE CIRCULATORY SYSTEM (6) History of arterial bypass of lower extremity Code(s): Z95.828 - PRESENCE OF OTHER VASCULAR IMPLANTS AND GRAFTS
[2017-11-26 06:46] LABS: ANION GAP 9 MMOL/L (8-16); BLOOD UREA NITROGEN 60 mg/dL (7-18); CALCIUM 7.5 mg/dL (8.5-10.1); CHLORIDE 85 mmol/L (98-107); CO2 25 mmol/L (21-32); CREATININE 1.3 mg/dL (0.7-1.3); GLUCOSE,RANDOM 105 mg/dL (74-106); MAGNESIUM 2.7 mg/dL (1.8-2.4); PHOSPHOROUS 4.8 mg/dL (2.5-4.9); POTASSIUM 3.5 mmol/L (3.5-5.1)
[2017-11-26 06:52] LABS: SODIUM 119 mmol/L (136-145)
[2017-11-26] MEDS ORDERED: MORPHINE SULFATE 2 MG/ML VIAL IVPUSH ONE ×4 (06:53→21:15)
[2017-11-26] MEDS: ALBUTEROL SO4 2.5/IPRATROPIUM 0.5 INH SOL 3 ML VIAL.NEB. NEB SCH ×4 (08:30→20:25)
[2017-11-26 08:40] LABS: ANION GAP 8 MMOL/L (8-16); BLOOD UREA NITROGEN 60 mg/dL (7-18); CALCIUM 7.5 mg/dL (8.5-10.1); CHLORIDE 108 mmol/L (98-107); CO2 24 mmol/L (21-32); CREATININE 1.3 mg/dL (0.7-1.3); GLUCOSE,RANDOM 107 mg/dL (74-106); POTASSIUM 4.5 mmol/L (3.5-5.1); SODIUM 140 mmol/L (136-145)
[2017-11-26] MEDS ORDERED: ceFAZolin SODIUM 1 GM VIAL ONE (08:40)
[2017-11-26] MEDS ORDERED: DEXTROSE 5%-WATER - 50 ML IVPB ONE (08:40)
--- NOTE | 2017-11-26 08:56 | PN ---
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 (short form) - Note 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: Vascular Surgery Pt seen and examined. Hematoma on duplex left arm. US shows no injury to brachial artery, radial artery, ulnar artery Pt has motor and sensory intact. Palpable radial pulse. Please stop all anticoagulation if possible. elevation of left arm. Cont neuro-vascular checks. no signs of compartment syndrome. Keanu Hendricks DO
[2017-11-26] MEDS: FUROSEMIDE 20 MG TABLET (FP) PO SCH (09:25)
[2017-11-26] MEDS: PANTOPRAZOLE 40 MG TABLET (FP) PO SCH (09:25)
[2017-11-26] MEDS: levETIRAcetam 500 MG TABLET (FP) PO SCH ×2 (09:26→21:42)
[2017-11-26] MEDS: DULoxetine HCL 30 MG CAPSULE.DR (FP) PO SCH (09:28)
[2017-11-26] MEDS: metoPROLOL SUCCINATE 25 MG TAB.SR.24H (FP) PO SCH ×2 (09:29→21:42)
[2017-11-26] MEDS: ISOSORBIDE DINITRATE 10 MG TABLET (FP) PO SCH ×2 (09:34→18:33)
[2017-11-26] MEDS: MUPIROCIN 2% TOPICAL OINTMENT FOR DECOLONIZATION NS SCH ×2 (09:38→21:59)
[2017-11-26] MEDS ORDERED: CEFAZOLIN 1 GM in DEXTROSE 5%-WATER - 50 ML IVPB SCH (10:00)
--- NOTE | 2017-11-26 10:15 | PN ---
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, Physician - Current Medication List Current Medications: Active Medications Acetaminophen (Tylenol -) 650 mg PO Q6H PRN PRN Reason: FEVER Albuterol Sulfate (Ventolin 0.083% Nebulizer Soln -) 1 amp NEB Q4H PRN PRN Reason: SHORT OF BREATH/WHEEZING Albuterol/Ipratropium (Duoneb -) 1 amp NEB RBID [facility] Last Admin: 11/25/17 21:00 Dose: 1 amp Atorvastatin Calcium (Lipitor -) 20 mg PO HS [facility] Last Admin: 11/25/17 21:31 Dose: 20 mg Chlorhexidine Gluconate (Hibiclens For Decolonization -) 1 applic TP HS [facility] Last Admin: 11/25/17 21:31 Dose: 1 applic Diltiazem HCl (Cardizem Cd -) 120 mg PO DAILY [facility] Last Admin: 11/26/17 09:25 Dose: 120 mg Duloxetine HCl (Cymbalta -) 60 mg PO DAILY [facility] Last Admin: 11/26/17 09:28 Dose: 60 mg Fluocinonide (Lidex 0.05% Cream -) 1 applic TP DAILY [facility] Furosemide (Lasix -) 20 mg PO DAILY [facility] Last Admin: 11/26/17 09:25 Dose: 20 mg Heparin Sodium (Porcine) (Heparin -) 1,000 unit IVPUSH PRN PRN PRN Reason: Heparin Heparin Sodium (Porcine) (Heparin -) 5,000 unit IVPUSH PRN PRN PRN Reason: Heparin Last Admin: 11/26/17 03:57 Dose: 5,000 unit Cefazolin Sodium 1 gm/ (Dextrose) 50 mls @ 100 mls/hr IVPB DAILY [facility] Last Admin: 11/26/17 09:26 Dose: 100 mls/hr Isosorbide Dinitrate (Isordil -) 10 mg PO BIDISORDIL [facility] Last Admin: 11/26/17 09:34 Dose: 10 mg Levetiracetam (Keppra -) 250 mg PO BID [facility] Last Admin: 11/26/17 09:26 Dose: 250 mg Methylprednisolone Sodium Succinate (Solu-Medrol -) 40 mg IVPUSH Q8H-IV [facility] Last Admin: 11/26/17 09:26 Dose: 40 mg Metoprolol Succinate (Toprol Xl -) 25 mg PO BID [facility] Last Admin: 11/26/17 09:29 Dose: 25 mg Mupirocin (Bactroban Ointment (For Decolonization) -) 1 applic NS BID [facility] Stop: 11/30/17 21:59 Last Admin: 11/26/17 09:38 Dose: 1 applic Pantoprazole Sodium (Protonix -) 40 mg PO DAILY [facility] Last Admin: 11/26/17 09:25 Dose: 40 mg Pregabalin (Lyrica -) 100 mg PO TID [facility] Last Admin: 11/26/17 06:09 Dose: 100 mg - Objective Vital Signs: Vital Signs Temperature 97.5 F L 11/26/17 06:00 Pulse Rate 60 11/26/17 08:00 Respiratory Rate 20 11/26/17 08:00 Blood Pressure 104/55 11/26/17 08:00 O2 Sat by Pulse Oximetry (%) 96 11/26/17 09:01 Cardiovascular: Yes: S1, S2 Respiratory: Yes: Regular, CTA Bilaterally Gastrointestinal: Yes: Normal Bowel Sounds, Soft Edema: LUE: 2+ (hematoma) Labs: CBC, BMP 11/26/17 05:30 11/26/17 07:41 INR, PTT INR 1.96 (0.83-1.09) H 11/23/17 21:35 Problem List - Problems (1) Fall Assessment/Plan: -Physical therapy -CT head negative -Neurology consult -safety precautions Code(s): W19.XXXA - UNSPECIFIED FALL, INITIAL ENCOUNTER Qualifiers: Encounter type: subsequent encounter Qualified Code(s): W19.XXXD - Unspecified fall, subsequent encounter (2) Acute and chronic respiratory failure with hypoxia Assessment/Plan: bipap pulm Code(s): J96.21 - ACUTE AND CHRONIC RESPIRATORY FAILURE WITH HYPOXIA (3) Seizure Assessment/Plan: per neuro on kepra Code(s): R56.9 - UNSPECIFIED CONVULSIONS (4) Traumatic hematoma of left upper arm Assessment/Plan: vascular on porter sample case Code(s): S40.022A - CONTUSION OF LEFT UPPER ARM, INITIAL ENCOUNTER Qualifiers: Encounter type: initial encounter Qualified Code(s): S40.022A - Contusion of left upper arm, initial encounter (5) CAD (coronary artery disease) Code(s): I25.10 - ATHSCL HEART DISEASE OF [place] CORONARY ARTERY W/O ANG PCTRS Qualifiers: Coronary Disease-Associated Artery/Lesion type: [place] artery Associated angina: with stable angina (6) COPD (chronic obstructive pulmonary disease) Assessment/Plan: -On non re-breather now -CXR unremarkable -Pulmonary consult -Bronchodilators -Prednisone 10 mg po BID at home, would continue Code(s): J44.9 - CHRONIC OBSTRUCTIVE PULMONARY DISEASE, UNSPECIFIED Qualifiers: COPD type: COPD with acute exacerbation Qualified Code(s): J44.1 - Chronic obstructive pulmonary disease with (acute) exacerbation (7) Old cerebrovascular accident (CVA) without late effect Assessment/Plan: -Neurology consult -CT head negative -Unable to do MRI due to implantable device Code(s): Z86.73 - PRSNL HX OF TIA (TIA), AND CEREB INFRC W/O RESID DEFICITS (8) Paroxysmal atrial fibrillation Assessment/Plan: -On eliquis at home -Hold for another 24 hours due to LUE hematoma -restart eliquis if ok with cardio -Monitor H/H for any drop suggesting blood loss Code(s): I48.0 - PAROXYSMAL ATRIAL FIBRILLATION (9) Presence of cardiac pacemaker Code(s): Z95.0 - PRESENCE OF CARDIAC PACEMAKER (10) Acute kidney injury Assessment/Plan: -UA/UC pending -Nephrology consult -monitor Cr Code(s): N17.9 - ACUTE KIDNEY FAILURE, UNSPECIFIED
[2017-11-26] MEDS: FLUOCINONIDE 0.05% CREAM (15 GM TUBE) TP SCH (10:51)
--- NOTE | 2017-11-26 11:58 | PN ---
Teaching Attending Note Name of Resident: Erna Newman ATTENDING PHYSICIAN STATEMENT I saw and evaluated the patient. I reviewed the resident's note and discussed the case with the resident. I agree with the resident's findings and plan as documented. SUBJECTIVE: Pt seen and examined in the ICU. Remains on BiPAP, quickly desaturates off. Left arm hematoma expanding with increasing pain, evaluated by vascular and hand surgery. OBJECTIVE: Vital Signs Period Temp Pulse Resp BP Sys/Varghese Pulse Ox Last 24 Hr 97.2 F-98.7 F 60-67 14-21 74-118/47-73 93-100 Intake & Output 11/23/17 11/24/17 11/25/17 11/26/17 23:59 23:59 23:59 23:59 Intake Total 1000 1920 220 Output Total 1100 600 Balance 1000 820 -380 Weight 77.111 kg 67.784 kg 72.03 kg Gen: less tachypneic on BiPAP Heart: RRR Lung: distant breath sounds Abd: soft, nontender Ext: LUE large hematoma CBC, BMP 11/26/17 05:30 11/26/17 07:41 Active Medications Acetaminophen (Tylenol -) 650 mg PO Q6H PRN PRN Reason: FEVER Albuterol Sulfate (Ventolin 0.083% Nebulizer Soln -) 1 amp NEB Q4H PRN PRN Reason: SHORT OF BREATH/WHEEZING Albuterol/Ipratropium (Duoneb -) 1 amp NEB RQID [facility] Atorvastatin Calcium (Lipitor -) 20 mg PO HS [facility] Last Admin: 11/25/17 21:31 Dose: 20 mg Chlorhexidine Gluconate (Hibiclens For Decolonization -) 1 applic TP HS [facility] Last Admin: 11/25/17 21:31 Dose: 1 applic Diltiazem HCl (Cardizem Cd -) 120 mg PO DAILY [facility] Last Admin: 11/26/17 09:25 Dose: 120 mg Duloxetine HCl (Cymbalta -) 60 mg PO DAILY [facility] Last Admin: 11/26/17 09:28 Dose: 60 mg Fluocinonide (Lidex 0.05% Cream -) 1 applic TP DAILY [facility] Last Admin: 11/26/17 10:51 Dose: 1 applic Furosemide (Lasix -) 20 mg PO DAILY [facility] Last Admin: 11/26/17 09:25 Dose: 20 mg Heparin Sodium (Porcine) (Heparin -) 1,000 unit IVPUSH PRN PRN PRN Reason: Heparin Heparin Sodium (Porcine) (Heparin -) 5,000 unit IVPUSH PRN PRN PRN Reason: Heparin Last Admin: 11/26/17 03:57 Dose: 5,000 unit Cefazolin Sodium 1 gm/ (Dextrose) 50 mls @ 100 mls/hr IVPB DAILY [facility] Last Admin: 11/26/17 09:26 Dose: 100 mls/hr Isosorbide Dinitrate (Isordil -) 10 mg PO BIDISORDIL [facility] Last Admin: 11/26/17 09:34 Dose: 10 mg Levetiracetam (Keppra -) 250 mg PO BID [facility] Last Admin: 11/26/17 09:26 Dose: 250 mg Methylprednisolone Sodium Succinate (Solu-Medrol -) 40 mg IVPUSH Q8H-IV [facility] Last Admin: 11/26/17 09:26 Dose: 40 mg Metoprolol Succinate (Toprol Xl -) 25 mg PO BID [facility] Last Admin: 11/26/17 09:29 Dose: 25 mg Mupirocin (Bactroban Ointment (For Decolonization) -) 1 applic NS BID [facility] Stop: 11/30/17 21:59 Last Admin: 11/26/17 09:38 Dose: 1 applic Pantoprazole Sodium (Protonix -) 40 mg PO DAILY [facility] Last Admin: 11/26/17 09:25 Dose: 40 mg Pregabalin (Lyrica -) 100 mg PO TID [facility] Last Admin: 11/26/17 06:09 Dose: 100 mg ASSESSMENT AND PLAN: Acute on Chronic Hypoxic Respiratory Failure Left Arm Hematoma Seizures Acute COPD Exacerbation LV Diastolic Dysfunction Atrial Fibrillation Acute on Chronic Renal Failure h/o CVA CAD HTN Hyperlipidemia - monitor hematoma - started on empiric antibiotics - continue medrol - inhaled bronchodilators - O2 to keep Spo2 >90% - BiPAP to assist in work of breathing - continue home lasix - monitor urine output, creatinine - rate control - holding anticoagulation - continue ICU monitoring critical care time spent in reviewing chart, evaluating patient and formulating plan 35 min
--- NOTE | 2017-11-26 12:45 | PN ---
Physical Exam: SUBJECTIVE: Patient is a 77 y/o male with a history of afib, HTN, HLD, CAD, COPD, DM, PAD, AAA who is here for acute hypoxic respiratory failure 2/2 to COPD exacerbation. Patient's anticoagulation was stopped last night because of pain on his left extremity. Patient complains of pain in his arm. OBJECTIVE: Vital Signs Temperature 97.5 F L 11/26/17 06:00 Pulse Rate 60 11/26/17 08:00 Respiratory Rate 20 11/26/17 08:00 Blood Pressure 104/55 11/26/17 08:00 O2 Sat by Pulse Oximetry (%) 93 L 11/26/17 10:58 GENERAL: Awake, alert, and fully oriented EYES: Pupils equal, round and reactive to light, extraocular movements intact EARS, NOSE, THROAT: Ears normal, nares patent, oropharynx clear without exudates. Moist mucous membranes. LUNGS: lungs clear to auscultation, no accessory muscle use HEART: Regular rate and rhythm, ABDOMEN: Soft, nontender, not distended, LOWER EXTREMITIES: 2+ dp pulses, warm, well-perfused. No calf tenderness. No peripheral edema. SKIN: large hematoma on LUE from wrist and extending up midway of arm, radial pulse intact, ROM intact, hand singer and unloader intact CBCD WBC 20.1 K/mm3 (4.0-10.0) H 11/26/17 05:30 RBC 4.23 M/mm3 (4.00-5.60) 11/26/17 05:30 Hgb 11.5 GM/dL (11.7-16.9) L 11/26/17 05:30 Hct 36.1 % (35.4-49) 11/26/17 05:30 MCV 85.5 fl (80-96) 11/26/17 05:30 MCHC 31.9 g/dl (32.0-35.9) L 11/26/17 05:30 RDW 17.3 % (11.9-15.9) H 11/26/17 05:30 Plt Count 140 K/MM3 (134-434) 11/26/17 05:30 MPV 10.5 fl (7.5-11.1) 11/26/17 05:30 CMP Sodium 140 mmol/L (136-145) D 11/26/17 07:41 Potassium 4.5 mmol/L (3.5-5.1) D 11/26/17 07:41 Chloride 108 mmol/L (98-107) H D 11/26/17 07:41 Carbon Dioxide 24 mmol/L (21-32) 11/26/17 07:41 Anion Gap 8 MMOL/L (8-16) 11/26/17 07:41 BUN 60 mg/dL (7-18) H 11/26/17 07:41 Creatinine 1.3 mg/dL (0.7-1.3) 11/26/17 07:41 Creat Clearance w eGFR 53.25 (>60) 11/26/17 07:41 Calcium 7.5 mg/dL (8.5-10.1) L 11/26/17 07:41 Total Bilirubin 0.8 mg/dL (0.2-1.0) 11/23/17 21:35 AST 17 U/L (15-37) D 11/23/17 21:35 ALT 37 U/L (12-78) D 11/23/17 21:35 Alkaline Phosphatase 53 U/L (45-117) 11/23/17 21:35 Total Protein 6.9 g/dl (6.4-8.2) 11/23/17 21:35 Albumin 3.4 g/dl (3.4-5.0) 11/23/17 21:35 INR, PTT INR 1.96 (0.83-1.09) H 11/23/17 21:35 Active Medications Acetaminophen (Tylenol -) 650 mg PO Q6H PRN PRN Reason: FEVER Albuterol Sulfate (Ventolin 0.083% Nebulizer Soln -) 1 amp NEB Q4H PRN PRN Reason: SHORT OF BREATH/WHEEZING Albuterol/Ipratropium (Duoneb -) 1 amp NEB RQID [facility] Last Admin: 11/26/17 12:00 Dose: 1 amp Atorvastatin Calcium (Lipitor -) 20 mg PO [facility] Last Admin: 11/25/17 21:31 Dose: 20 mg Chlorhexidine Gluconate (Hibiclens For Decolonization -) 1 applic TP [facility] Last Admin: 11/25/17 21:31 Dose: 1 applic Diltiazem HCl (Cardizem Cd -) 120 mg PO DAILY [facility] Last Admin: 11/26/17 09:25 Dose: 120 mg Duloxetine HCl (Cymbalta -) 60 mg PO DAILY [facility] Last Admin: 11/26/17 09:28 Dose: 60 mg Fluocinonide (Lidex 0.05% Cream -) 1 applic TP DAILY [facility] Last Admin: 11/26/17 10:51 Dose: 1 applic Furosemide (Lasix -) 20 mg PO DAILY [facility] Last Admin: 11/26/17 09:25 Dose: 20 mg Cefazolin Sodium 1 gm/ (Dextrose) 50 mls @ 100 mls/hr IVPB DAILY [facility] Last Admin: 11/26/17 09:26 Dose: 100 mls/hr Isosorbide Dinitrate (Isordil -) 10 mg PO BIDISORDIL [facility] Last Admin: 11/26/17 09:34 Dose: 10 mg Levetiracetam (Keppra -) 250 mg PO BID [facility] Last Admin: 11/26/17 09:26 Dose: 250 mg Methylprednisolone Sodium Succinate (Solu-Medrol -) 40 mg IVPUSH Q8H-IV [facility] Last Admin: 11/26/17 09:26 Dose: 40 mg Metoprolol Succinate (Toprol Xl -) 25 mg PO BID [facility] Last Admin: 11/26/17 09:29 Dose: 25 mg Mupirocin (Bactroban Ointment (For Decolonization) -) 1 applic NS BID [facility] Stop: 11/30/17 21:59 Last Admin: 11/26/17 09:38 Dose: 1 applic Pantoprazole Sodium (Protonix -) 40 mg PO DAILY [facility] Last Admin: 11/26/17 09:25 Dose: 40 mg Pregabalin (Lyrica -) 100 mg PO TID [facility] Last Admin: 11/26/17 06:09 Dose: 100 mg ASSESSMENT/PLAN: Neuro Seizure like actvity/ vs fall - at baseline mental status A & O x3 - Neurology Dr. Melo: may be partial seizure - Keppra 250 mg po BID - head CT: no acute intracranial hemorrhage or acute vascular territory infarction - EEG when possible Cardio afib/CAD/HTN - anticoagulation held for three days with patients large hematoma - diltiazem 120 mg po - aspirin 81 mg po daily - Isosorbide dinitrate 10 mg po - lipitor 20 mg po hs - metoprolol 25 mg po BID - currently rate controlled and stable Pulm acute on chronic hypoxic respiratory failure 2/2 to COPD exacerbation - possibly 2/2 to LE DVT r/o with doppler, possibly infection r/o infectious causes - ABG: ph 7.46 CO2 32.4 O2 4 - A-a gradient 629 - CXR: prominent mediastnum, may be LL base atelectasis - patient on ventimask and tolerating COPD - Methylprednisolone 40 mg IV push q8h, short course - duonebs QID - albuterol q4h Renal - furosemide 20 mg po daily - monitor I's % O's MSK Hematoma of LUE - UE doppler: no evidence or arterial dissection or aneyursm , superficial hematomas in LUE - history of AAA repair at [facility] - per vascular Dr. Hendricks and surgery Dr. Palumbo, no evidence of compartment syndrome - hold all anticoagulation as to not worsen hematoma Infectious disease - increase white count 2/2 to hematoma vs infectious source - Ancef emperically, one does of azythromycin given - f/u payton cultures - patient afebrile overnight GI ppx - protonix 40 mg po daily BPH - tamsulosin .4 mg Endocrine DM - Lyrica 100 mg po TID - A1 C: 6.0 - TSH .12, Free T4:1 DVT ppx - SCD's depression - cymbalta 60 mg po daily FEN Dispo:f/u PT Visit type - Emergency Visit Emergency Visit: No - New Patient This patient is new to me today: No - Critical Care Critical Care patient: Yes Total Critical Care Time (in minutes): 40 Critical Care Statement: The care of this patient involved high complexity decision making to prevent further life threatening deterioration of the patient 's condition and/or to evaluate & treat vital organ system(s) failure or risk of failure.
--- NOTE | 2017-11-26 13:25 | ECHO ---
Name: HANG, IVAN Exam:Adult Echocardiogram Study Date: 11/26/2017 12:31 PM Age: 77 yrs Reason For Study: LVF Height: 67 in Weight: 149 lb BSA: 1.8 m2 Tech Comments . . NO WINDOW. Interpretation Summary No adequate echocardiographic windows. Unable to visualize any cardiac structure on this study. Isaiah Salinas 11/26/2017 01:12 PM
--- NOTE | 2017-11-26 13:53 | PN ---
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 (short form) - Note 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: ID consult dictated imp/reccd gram positive bacteremia leukocytosis new onset seizures left arm hematoma PPM thoracic aneurysm ?skin source repeat blood cultures vancomycin echo Problem List - Problems (1) Bacteremia Code(s): R78.81 - BACTEREMIA (2) Leukocytosis (leucocytosis) Code(s): D72.829 - ELEVATED WHITE BLOOD CELL COUNT, UNSPECIFIED (3) Hematoma Code(s): T14.8XXA - OTHER INJURY OF UNSPECIFIED BODY REGION, INITIAL ENCOUNTER (4) Seizure Code(s): R56.9 - UNSPECIFIED CONVULSIONS
--- NOTE | 2017-11-26 14:33 | EKG ---
Test Reason : Blood Pressure : / mmHG Vent. Rate : 065 BPM Atrial Rate : 326 BPM P-R Int : 000 ms QRS Dur : 126 ms QT Int : 428 ms P-R-T Axes : 000 263 084 degrees QTc Int : 445 ms POOR DATA QUALITY, INTERPRETATION MAY BE ADVERSELY AFFECTED Ventricular-paced rhythm WITH OCCASIONAL PREMATURE VENTRICULAR COMPLEXES ABNORMAL ECG WHEN COMPARED WITH ECG OF 25-NOV-2017 11:08, PREMATURE VENTRICULAR COMPLEXES ARE NOW PRESENT VENT. RATE HAS DECREASED BY 5 BPM Confirmed by Isaiah Salinas ([id number]) on 11/26/2017 2:33:21 PM Referred By: LUCIANO FRANK DR Confirmed By:Isaiah Salinas
[2017-11-26] MEDS: VANCOMYCIN 1 GM PREMIX - 1 GM/200 ML BAG IVPB SCH (15:10)
--- NOTE | 2017-11-26 16:55 | PN ---
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, Physician History of Present Illness: Pt seen and examined at bedside. He is more awake and alert today. - Current Medication List Current Medications: Active Medications Acetaminophen (Tylenol -) 650 mg PO Q6H PRN PRN Reason: FEVER Albuterol Sulfate (Ventolin 0.083% Nebulizer Soln -) 1 amp NEB Q4H PRN PRN Reason: SHORT OF BREATH/WHEEZING Albuterol/Ipratropium (Duoneb -) 1 amp NEB RQID [facility] Last Admin: 11/26/17 12:00 Dose: 1 amp Atorvastatin Calcium (Lipitor -) 20 mg PO HS [facility] Last Admin: 11/25/17 21:31 Dose: 20 mg Chlorhexidine Gluconate (Hibiclens For Decolonization -) 1 applic TP HS [facility] Last Admin: 11/25/17 21:31 Dose: 1 applic Diltiazem HCl (Cardizem Cd -) 120 mg PO DAILY [facility] Last Admin: 11/26/17 09:25 Dose: 120 mg Duloxetine HCl (Cymbalta -) 60 mg PO DAILY [facility] Last Admin: 11/26/17 09:28 Dose: 60 mg Fluocinonide (Lidex 0.05% Cream -) 1 applic TP DAILY [facility] Last Admin: 11/26/17 10:51 Dose: 1 applic Furosemide (Lasix -) 20 mg PO DAILY [facility] Last Admin: 11/26/17 09:25 Dose: 20 mg Vancomycin HCl (Vancomycin 1 Gm Premix -) 1 gm in 200 mls @ 133.333 mls/hr IVPB Q12H [facility]; Protocol Last Admin: 11/26/17 15:10 Dose: 133.333 mls/hr Isosorbide Dinitrate (Isordil -) 10 mg PO BIDISORDIL [facility] Last Admin: 11/26/17 09:34 Dose: 10 mg Levetiracetam (Keppra -) 250 mg PO BID [facility] Last Admin: 11/26/17 09:26 Dose: 250 mg Methylprednisolone Sodium Succinate (Solu-Medrol -) 40 mg IVPUSH Q8H-IV [facility] Last Admin: 11/26/17 09:26 Dose: 40 mg Metoprolol Succinate (Toprol Xl -) 25 mg PO BID [facility] Last Admin: 11/26/17 09:29 Dose: 25 mg Mupirocin (Bactroban Ointment (For Decolonization) -) 1 applic NS BID [facility] Stop: 11/30/17 21:59 Last Admin: 11/26/17 09:38 Dose: 1 applic Pantoprazole Sodium (Protonix -) 40 mg PO DAILY [facility] Last Admin: 11/26/17 09:25 Dose: 40 mg Pregabalin (Lyrica -) 100 mg PO TID [facility] Last Admin: 11/26/17 14:00 Dose: 100 mg - Objective Vital Signs: Vital Signs Temperature 98 F 11/26/17 13:41 Pulse Rate 71 11/26/17 16:00 Respiratory Rate 17 11/26/17 16:00 Blood Pressure 100/58 11/26/17 16:00 O2 Sat by Pulse Oximetry (%) 93 L 11/26/17 10:58 Constitutional: Yes: Calm Eyes: Yes: Conjunctiva Clear HENT: Yes: Atraumatic Cardiovascular: Yes: S1, S2 Respiratory: Yes: On Venti-Mask Gastrointestinal: Yes: Soft Genitourinary: Yes: Incontinence Musculoskeletal: Yes: WNL Edema: No Neurological: Yes: Oriented Psychiatric: Yes: Oriented Labs: CBC, BMP 11/26/17 05:30 11/26/17 07:41 INR, PTT INR 1.96 (0.83-1.09) H 11/23/17 21:35 Problem List - Problems (1) Fall Code(s): W19.XXXA - UNSPECIFIED FALL, INITIAL ENCOUNTER Qualifiers: Encounter type: subsequent encounter Qualified Code(s): W19.XXXD - Unspecified fall, subsequent encounter (2) CAD (coronary artery disease) Code(s): I25.10 - ATHSCL HEART DISEASE OF [place] CORONARY ARTERY W/O ANG PCTRS Qualifiers: Coronary Disease-Associated Artery/Lesion type: [place] artery Associated angina: with stable angina (3) CHF (congestive heart failure) Code(s): I50.9 - HEART FAILURE, UNSPECIFIED (4) CKD (chronic kidney disease) Code(s): N18.9 - CHRONIC KIDNEY DISEASE, UNSPECIFIED Qualifiers: Chronic kidney disease stage: stage 3 (moderate) Qualified Code(s): N18.3 - Chronic kidney disease, stage 3 (moderate) Assessment/Plan Current Medications Generic Name Dose Route Start Last Admin Trade Name Freq PRN Reason Stop Dose Admin Acetaminophen 650 mg 11/25/17 20:29 Tylenol - PO Q6H PRN FEVER Albuterol Sulfate 1 amp 11/25/17 12:40 Ventolin 0.083% Nebulizer Soln - NEB Q4H PRN SHORT OF BREATH/WHEEZING Albuterol/Ipratropium 1 amp 11/26/17 12:00 11/26/17 12:00 Duoneb - NEB 1 amp RQID DIANNE Administration Atorvastatin Calcium 20 mg 11/25/17 22:00 11/25/17 21:31 Lipitor - PO 20 mg HS DIANNE Administration Chlorhexidine Gluconate 1 applic 11/25/17 22:00 11/25/17 21:31 Hibiclens For Decolonization - TP 1 applic HS DIANNE Administration Diltiazem HCl 120 mg 11/26/17 10:00 11/26/17 09:25 Cardizem Cd - PO 120 mg DAILY [facility] Administration Duloxetine HCl 60 mg 11/26/17 10:00 11/26/17 09:28 Cymbalta - PO 60 mg DAILY [facility] Administration Fluocinonide 1 applic 11/26/17 10:00 11/26/17 10:51 Lidex 0.05% Cream - TP 1 applic DAILY [facility] Administration Furosemide 20 mg 11/26/17 10:00 11/26/17 09:25 Lasix - PO 20 mg DAILY [facility] Administration Vancomycin HCl 1 gm in 200 mls @ 133.333 mls/hr 11/26/17 14:30 11/26/17 15:10 Vancomycin 1 Gm Premix - IVPB 133.333 mls/hr Q12H [facility] Administration Protocol Isosorbide Dinitrate 10 mg 11/26/17 10:00 11/26/17 09:34 Isordil - PO 10 mg BIDISORDIL [facility] Administration Levetiracetam 250 mg 11/25/17 22:00 11/26/17 09:26 Keppra - PO 250 mg BID [facility] Administration Methylprednisolone Sodium Succinate 40 mg 11/26/17 02:00 11/26/17 09:26 Solu-Medrol - IVPUSH 40 mg Q8H-IV [facility] Administration Metoprolol Succinate 25 mg 11/25/17 22:00 11/26/17 09:29 Toprol Xl - PO 25 mg BID DI[facility]NE Administration Mupirocin 1 applic 11/25/17 22:00 11/26/17 09:38 Bactroban Ointment (For Decolonization) - NS 11/30/17 21:59 1 applic BID [facility]ANNE Administration Pantoprazole Sodium 40 mg 11/26/17 10:00 11/26/17 09:25 Protonix - PO 40 mg DAILY [facility] Administration Pregabalin 100 mg 11/25/17 22:00 11/26/17 14:00 Lyrica - PO 100 mg TID [facility] Administration Impression 1. CKD 2. COPD exacerbation 3. AAA 4. hx CVA 5. a-fib 6. HTN 7. insomnia 8. hypoxic resp failure 9. CAD 10. BPH 12. microscopic hematuria 13. hypoxia Plan - renal function is stable - will keep steve on hold for now as bp is still borderline - cont to monitor renal function - discussed with ICU team - monitor heart rate - avoid nsaids - will follow
[2017-11-26] MEDS ORDERED: SODIUM CHLORIDE 250 ML IV STA (21:10)
--- NOTE | 2017-11-26 21:31 | PN ---
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, Physician Chief Complaint: Pt A&Ox3; no chest pain, dyspnea, or palpitations; Left arm elevated; painful. History of Present Illness: The patient is a 77 year old white man with a significant PMH of AAA repair ( 2011), CVA, TAA, afib, DVT, CAD, CHF, COPD, CKD, BPH, PPM, hypertension, hyperlipidemia, knee replacement and cataract repair who presents to the emergency department via EMS with a seizure like activity prior to arrival. The patient's reports that the patient had been given a nebulizer treatment earlier this evening . she states that subsequently he patient went to walk to the bathroom and fell. She notes that the patient was shaking and hit his left arm. The patient's states that she noticed similar activity in the patient about 2 days ago but was not sure if it was a stroke. The patient's states that the patient has otherwise been eating and drinking normally. The patient endorses left arm pain , secondary to injury and trouble breathing. The patient denies any other symptoms. He denies any fever, chills, nausea, vomit, diarrhea , constipation or urinary symptoms. He denies any chest pain,headache and dizziness. The patient denies any other complaints. - - Current Medication List Current Medications: Active Medications Acetaminophen (Tylenol -) 650 mg PO Q6H PRN PRN Reason: FEVER Albuterol Sulfate (Ventolin 0.083% Nebulizer Soln -) 1 amp NEB Q4H PRN PRN Reason: SHORT OF BREATH/WHEEZING Albuterol/Ipratropium (Duoneb -) 1 amp NEB RQID [facility] Last Admin: 11/26/17 20:25 Dose: 1 amp Atorvastatin Calcium (Lipitor -) 20 mg PO HS [facility] Last Admin: 11/25/17 21:31 Dose: 20 mg Chlorhexidine Gluconate (Hibiclens For Decolonization -) 1 applic TP HS [facility] Last Admin: 11/25/17 21:31 Dose: 1 applic Diltiazem HCl (Cardizem Cd -) 120 mg PO DAILY [facility] Last Admin: 11/26/17 09:25 Dose: 120 mg Duloxetine HCl (Cymbalta -) 60 mg PO DAILY [facility] Last Admin: 11/26/17 09:28 Dose: 60 mg Fluocinonide (Lidex 0.05% Cream -) 1 applic TP DAILY [facility] Last Admin: 11/26/17 10:51 Dose: 1 applic Furosemide (Lasix -) 20 mg PO DAILY [facility] Last Admin: 11/26/17 09:25 Dose: 20 mg Vancomycin HCl (Vancomycin 1 Gm Premix -) 1 gm in 200 mls @ 133.333 mls/hr IVPB Q12H [facility]; Protocol Last Admin: 11/26/17 15:10 Dose: 133.333 mls/hr Sodium Chloride (Normal Saline -) 250 mls @ 250 mls/hr IV [facility] Stop: 11/26/17 22:09 Isosorbide Dinitrate (Isordil -) 10 mg PO BIDISORDIL [facility] Last Admin: 11/26/17 18:33 Dose: 10 mg Levetiracetam (Keppra -) 250 mg PO BID [facility] Last Admin: 11/26/17 09:26 Dose: 250 mg Methylprednisolone Sodium Succinate (Solu-Medrol -) 40 mg IVPUSH Q8H-IV [facility] Last Admin: 11/26/17 18:31 Dose: 40 mg Metoprolol Succinate (Toprol Xl -) 25 mg PO BID [facility] Last Admin: 11/26/17 09:29 Dose: 25 mg Mupirocin (Bactroban Ointment (For Decolonization) -) 1 applic NS BID [facility] Stop: 11/30/17 21:59 Last Admin: 11/26/17 09:38 Dose: 1 applic Pantoprazole Sodium (Protonix -) 40 mg PO DAILY [facility] Last Admin: 11/26/17 09:25 Dose: 40 mg Pregabalin (Lyrica -) 100 mg PO TID [facility] Last Admin: 11/26/17 14:00 Dose: 100 mg - Objective Vital Signs: Vital Signs Temperature 97.8 F 11/26/17 18:00 Pulse Rate 70 11/26/17 20:00 Respiratory Rate 18 11/26/17 20:04 Blood Pressure 89/48 11/26/17 20:00 O2 Sat by Pulse Oximetry (%) 89 L 11/26/17 20:04 Constitutional: Yes: Anxious Eyes: Yes: WNL HENT: Yes: WNL Neck: Yes: WNL Cardiovascular: Yes: Pulse Irregular Respiratory: Yes: Regular Gastrointestinal: Yes: Soft ...Rectal Exam: Yes: Deferred Genitourinary: No: Anuria Musculoskeletal: Yes: Muscle Weakness Extremities: Yes: Cool, Other (LJUE with diffuse hematoma; elevated; tender) Edema: Yes Peripheral Pulses WNL: No Peripheral Pulses: Left Doralis Pedis: 1+, Right Dorsalis Pedis: 1+ Integumentary: Yes: Bruising, Venous Stasis Changes, Other Neurological: Yes: Alert, Oriented, Weakness Psychiatric: Yes: Alert, Oriented Labs: CBC, BMP 11/26/17 05:30 11/26/17 07:41 INR, PTT INR 1.96 (0.83-1.09) H 11/23/17 21:35 Abnormal Lab Results 11/26/17 11/26/17 11/26/17 05:30 05:30 07:41 WBC 20.1 H Hgb 11.5 L MCHC 31.9 L RDW 17.3 H Absolute Neuts (auto) 19.6 H Neutrophils % 97.4 H Neutrophils % (Manual) 96.0 H Lymphocytes % 0.8 L Monocytes % 1.7 L Monocytes % (Manual) 3 L Sodium 119 L* D Chloride 85 L D 108 H D BUN 60 H 60 H Random Glucose 107 H Serum Osmolality Calcium 7.5 L 7.5 L Magnesium 2.7 H TSH 11/26/17 11/26/17 07:41 07:41 WBC Hgb MCHC RDW Absolute Neuts (auto) Neutrophils % Neutrophils % (Manual) Lymphocytes % Monocytes % Monocytes % (Manual) Sodium Chloride BUN Random Glucose Serum Osmolality 312 H Calcium Magnesium TSH 0.12 L D - ....Imaging EKG: Image Reviewed (ventricular paced rhythm) Problem List - Problems (1) Fall Code(s): W19.XXXA - UNSPECIFIED FALL, INITIAL ENCOUNTER Qualifiers: Encounter type: subsequent encounter Qualified Code(s): W19.XXXD - Unspecified fall, subsequent encounter (2) Seizure Assessment/Plan: on Keppra; f/u with neuro Code(s): R56.9 - UNSPECIFIED CONVULSIONS (3) Traumatic hematoma of left upper arm Code(s): S40.022A - CONTUSION OF LEFT UPPER ARM, INITIAL ENCOUNTER Qualifiers: Encounter type: initial encounter Qualified Code(s): S40.022A - Contusion of left upper arm, initial encounter (4) CAD (coronary artery disease) Code(s): I25.10 - ATHSCL HEART DISEASE OF [place] CORONARY ARTERY W/O ANG PCTRS Qualifiers: Coronary Disease-Associated Artery/Lesion type: [place] artery Associated angina: with stable angina (5) CHF (congestive heart failure) Assessment/Plan: ECHO pendng for LVEF, valve status. No JVD. CXR: no acute pathology On diltiazem, metoprolol, isordil, furosemide. F/u Is and Os, daily weight, electrolytes, BNP, BUN/Cr. Code(s): I50.9 - HEART FAILURE, UNSPECIFIED (6) CKD (chronic kidney disease) Code(s): N18.9 - CHRONIC KIDNEY DISEASE, UNSPECIFIED Qualifiers: Chronic kidney disease stage: stage 3 (moderate) Qualified Code(s): N18.3 - Chronic kidney disease, stage 3 (moderate) (7) COPD (chronic obstructive pulmonary disease) Assessment/Plan: bronchodilators and steroids per pulmonology; on antibiotics. Code(s): J44.9 - CHRONIC OBSTRUCTIVE PULMONARY DISEASE, UNSPECIFIED Qualifiers: COPD type: COPD with acute exacerbation Qualified Code(s): J44.1 - Chronic obstructive pulmonary disease with (acute) exacerbation (8) History of aortic aneurysm repair Code(s): Z98.890 - OTHER SPECIFIED POSTPROCEDURAL STATES; Z86.79 - PERSONAL HISTORY OF OTHER DISEASES OF THE CIRCULATORY SYSTEM (9) PAD (peripheral artery disease) Code(s): I73.9 - PERIPHERAL VASCULAR DISEASE, UNSPECIFIED (10) Hyperlipidemia Assessment/Plan: on atorvastatin. Code(s): E78.5 - HYPERLIPIDEMIA, UNSPECIFIED Qualifiers: (11) Afib Assessment/Plan: On metoprolol and diltiazem for HR, BP control. Warfarin held due to LUE hematoma. Code(s): I48.91 - UNSPECIFIED ATRIAL FIBRILLATION Qualifiers: Atrial fibrillation type: chronic Qualified Code(s): I48.2 - Chronic atrial fibrillation (12) Presence of cardiac pacemaker Code(s): Z95.0 - PRESENCE OF CARDIAC PACEMAKER (13) Leukocytosis (leucocytosis) Code(s): D72.829 - ELEVATED WHITE BLOOD CELL COUNT, UNSPECIFIED
[2017-11-26] MEDS: ATORVASTATIN CA 20 MG TABLET (FP) PO SCH (21:41)
[2017-11-26] MEDS: CHLORHEXIDINE GLUCONATE 4% CLEANSER FOR DECOLONIZATION TP SCH (21:56)
--- NOTE | 2017-11-26 23:38 | CONS ---
DATE OF CONSULTATION: DATE OF DICTATION: 11/26/2017 INFECTIOUS DISEASE CONSULTATION HISTORY OF PRESENT ILLNESS: This is a 77-year-old man who was originally admitted on November 23 when he presented to the emergency room with a witnessed seizure like activity at home. After arriving in the ER, he had a second episode of witnessed seizure. He also was noted to have swelling on the ulnar aspect of his left forearm. He apparently was walking to the bathroom, started to moan, and then he fell to the ground. He was admitted to the hospital, and we are asked to see him now for leukocytosis. He is currently awake and alert. He is resting comfortably. He is complaining of pain in his left arm which is in a sling and elevated. PAST MEDICAL HISTORY: Notable for CVA, atrial fibrillation, aneurysm, coronary artery disease, congestive heart failure, hypertension, hyperlipidemia, and has a history of COPD and BPH as well. SURGICAL HISTORY: Notable for endovascular abdominal aortic aneurysm repair. He has had a femoral-popliteal, has a permanent pacemaker, and he has had 2 cardiac stents. SOCIAL HISTORY: He lives with his . No history of cigarette or substance use. There is no history of any recent travel. He has no known drug allergies. MEDICATION: Include lovastatin, pantoprazole, Lyrica, Xarelto, Flomax, Lasix, Cardizem, Prinivil, Toprol XL and prednisone. He was on a prednisone taper and has tapered down to 10 mg a day at the time of his readmission now. REVIEW OF SYSTEMS: Denies fevers, chills, nausea, vomiting. He complains of pain in his arm. PHYSICAL EXAMINATION: VITAL SIGNS: He has been afebrile since admission. Temperature is 97.8, pulse 69, blood pressure 106/57, respiratory rate 17. HEENT: Normocephalic. Eyes are anicteric. He has no conjunctival hemorrhages. NECK: Supple. His left arm is in a sling. He has a large hematoma, but he is able to move his fingers, and there is no skin breakdown anywhere noted on the hematoma. ABDOMEN: Soft, nontender. EXTREMITIES: Without edema. White count is 20.1, hemoglobin is 11.5, platelets are 140. Chemistries are notable for BUN and creatinine of 60 and 1.3. Sodium 140. His blood cultures, 1 of 4 bottles is growing gram-positive cocci in chains. Chest x-ray has no infiltrate , and urinalysis is negative. IMPRESSION: In summary, this is a 77-year-old man with gram-positive bacteremia , leukocytosis, new onset seizures, left arm hematoma. He has a permanent pacemaker and a thoracic aneurysm as well. Would repeat blood cultures, treat him with vancomycin, obtain an echo. Further recommendations to follow based on his clinical course. Noah [id number] MTDD
[2017-11-27] MEDS: methylPREDNISolone NA SUCC 40 MG/1 ML VIAL IVPUSH SCH ×3 (02:30→21:50)
[2017-11-27] MEDS ORDERED: PT OWN MED DRAWER 7, Y5N ONE (03:18)
[2017-11-27] MEDS: VANCOMYCIN 1 GM PREMIX - 1 GM/200 ML BAG IVPB SCH ×2 (03:29→15:28)
[2017-11-27] MEDS: PREGABALIN 100 MG CAPSULE PO SCH ×3 (06:12→21:51)
[2017-11-27 06:19] LABS: BASO % 0.1 % (0-2.0); HEMATOCRIT 33.2 % (35.4-49); HEMOGLOBIN 10.5 GM/dL (11.7-16.9); LYMPH % 1.1 % (8-40); MCH 27.2 pg (25.7-33.7); MCHC 31.6 g/dl (32.0-35.9); MEAN CELL VOLUME 86.3 fl (80-96); MEAN PLT VOLUME 10.1 fl (7.5-11.1); MONO % 1.8 % (3.8-10.2); PLATELET COUNT 124 K/MM3 (134-434); RBC 3.85 M/mm3 (4.00-5.60)
[2017-11-27 06:40] LABS: INR 1.04 (0.83-1.09); PROTHROMBIN TIME (PATIENT) 11.7 SEC (9.7-13.0)
[2017-11-27 06:45] LABS: ALBUMIN 2.4 g/dl (3.4-5.0); ANION GAP 8 MMOL/L (8-16); BILIRUBIN,TOTAL 0.5 mg/dL (0.2-1.0); BLOOD UREA NITROGEN 66 mg/dL (7-18); CALCIUM 7.5 mg/dL (8.5-10.1); CHLORIDE 105 mmol/L (98-107); CO2 27 mmol/L (21-32); CREATININE 1.4 mg/dL (0.7-1.3); GLUCOSE,RANDOM 141 mg/dL (74-106); MAGNESIUM 2.7 mg/dL (1.8-2.4); PHOSPHOROUS 4.6 mg/dL (2.5-4.9); POTASSIUM 4.5 mmol/L (3.5-5.1); SGOT/AST 12 U/L (15-37); SGPT/ALT 33 U/L (12-78); SODIUM 140 mmol/L (136-145)
[2017-11-27 06:46] LABS: ALK PHOS 38 U/L (45-117); TOT PROT 5.3 g/dl (6.4-8.2)
--- NOTE | 2017-11-27 08:25 | PN ---
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, Physician History of Present Illness: Feels better - Current Medication List Current Medications: Active Medications Acetaminophen (Tylenol -) 650 mg PO Q6H PRN PRN Reason: FEVER Albuterol Sulfate (Ventolin 0.083% Nebulizer Soln -) 1 amp NEB Q4H PRN PRN Reason: SHORT OF BREATH/WHEEZING Albuterol/Ipratropium (Duoneb -) 1 amp NEB RQID [facility] Last Admin: 11/26/17 20:25 Dose: 1 amp Atorvastatin Calcium (Lipitor -) 20 mg PO HS [facility] Last Admin: 11/26/17 21:41 Dose: 20 mg Chlorhexidine Gluconate (Hibiclens For Decolonization -) 1 applic TP HS [facility] Last Admin: 11/26/17 21:56 Dose: 1 applic Diltiazem HCl (Cardizem Cd -) 120 mg PO DAILY [facility] Last Admin: 11/26/17 09:25 Dose: 120 mg Duloxetine HCl (Cymbalta -) 60 mg PO DAILY [facility] Last Admin: 11/26/17 09:28 Dose: 60 mg Fluocinonide (Lidex 0.05% Cream -) 1 applic TP DAILY [facility] Last Admin: 11/26/17 10:51 Dose: 1 applic Furosemide (Lasix -) 20 mg PO DAILY [facility] Last Admin: 11/26/17 09:25 Dose: 20 mg Vancomycin HCl (Vancomycin 1 Gm Premix -) 1 gm in 200 mls @ 133.333 mls/hr IVPB Q12H [facility]; Protocol Last Admin: 11/27/17 03:29 Dose: 133.333 mls/hr Isosorbide Dinitrate (Isordil -) 10 mg PO BIDISORDIL [facility] Last Admin: 11/26/17 18:33 Dose: 10 mg Levetiracetam (Keppra -) 250 mg PO BID [facility] Last Admin: 11/26/17 21:42 Dose: 250 mg Methylprednisolone Sodium Succinate (Solu-Medrol -) 40 mg IVPUSH Q8H-IV [facility] Last Admin: 11/27/17 02:30 Dose: 40 mg Metoprolol Succinate (Toprol Xl -) 25 mg PO BID [facility] Last Admin: 11/26/17 21:42 Dose: Not Given Mupirocin (Bactroban Ointment (For Decolonization) -) 1 applic NS BID [facility] Stop: 11/30/17 21:59 Last Admin: 11/26/17 21:59 Dose: 1 applic Pantoprazole Sodium (Protonix -) 40 mg PO DAILY [facility] Last Admin: 11/26/17 09:25 Dose: 40 mg Pregabalin (Lyrica -) 100 mg PO TID [facility] Last Admin: 11/27/17 06:12 Dose: 100 mg - Objective Vital Signs: Vital Signs Temperature 98 F 11/27/17 06:00 Pulse Rate 60 11/27/17 06:00 Respiratory Rate 15 11/27/17 06:00 Blood Pressure 126/70 11/27/17 06:00 O2 Sat by Pulse Oximetry (%) 93 L 11/27/17 06:02 Cardiovascular: Yes: S1, S2 Respiratory: Yes: On BiPap Gastrointestinal: Yes: Normal Bowel Sounds, Soft Extremities: Yes: Other (hematoma) Edema: Yes Edema: LUE: 3+ Labs: CBC, BMP 11/27/17 05:30 11/27/17 05:30 INR, PTT INR 1.04 (0.83-1.09) 11/27/17 05:30 Problem List - Problems (1) Fall Assessment/Plan: -Physical therapy -CT head negative -Neurology consult -Safety precautions Code(s): W19.XXXA - UNSPECIFIED FALL, INITIAL ENCOUNTER Qualifiers: Encounter type: subsequent encounter Qualified Code(s): W19.XXXD - Unspecified fall, subsequent encounter (2) Seizure Assessment/Plan: per neuro on kepra Code(s): R56.9 - UNSPECIFIED CONVULSIONS (3) Traumatic hematoma of left upper arm Assessment/Plan: 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 Code(s): S40.022A - CONTUSION OF LEFT UPPER ARM, INITIAL ENCOUNTER Qualifiers: Encounter type: initial encounter Qualified Code(s): S40.022A - Contusion of left upper arm, initial encounter (4) CAD (coronary artery disease) Assessment/Plan: -Statin -BB -On Isosorbide -Cardiac cath in the past with EF >40% -has ICM with permanent Cardiac resynchronization therapy defibrillator ([employer]) as 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 in the past Code(s): I25.10 - ATHSCL HEART DISEASE OF [place] CORONARY ARTERY W/O ANG PCTRS Qualifiers: Coronary Disease-Associated Artery/Lesion type: cheesh-na artery Associated angina: with stable angina (5) COPD (chronic obstructive pulmonary disease) Assessment/Plan: -On non re-breather now -CXR unremarkable -Pulmonary consult -Bronchodilators -Prednisone 10 mg po BID at home, would continue Code(s): J44.9 - CHRONIC OBSTRUCTIVE PULMONARY DISEASE, UNSPECIFIED Qualifiers: COPD type: COPD with acute exacerbation Qualified Code(s): J44.1 - Chronic obstructive pulmonary disease with (acute) exacerbation (6) Old cerebrovascular accident (CVA) without late effect Assessment/Plan: -Neurology consult -CT head negative -Unable to do MRI due to implantable device Code(s): Z86.73 - PRSNL HX OF TIA (TIA), AND CEREB INFRC W/O RESID DEFICITS (7) Paroxysmal atrial fibrillation Assessment/Plan: -On eliquis at home--on hold -Hold for another 24 hours due to LUE hematoma -Monitor H/H for any drop suggesting blood loss Code(s): I48.0 - PAROXYSMAL ATRIAL FIBRILLATION (8) Presence of cardiac pacemaker Code(s): Z95.0 - PRESENCE OF CARDIAC PACEMAKER (9) Acute kidney injury Assessment/Plan: -UA/UC pending Microbiology 11/25/17 17:45 Blood Culture - Preliminary Blood - Peripheral Venous Pending Organism 11/23/17 21:35 Blood Culture - Preliminary Blood - Peripheral Venous NO GROWTH OBTAINED AFTER 72 HOURS, INCUBATION TO CONTINUE FOR 2 DAYS. 11/23/17 21:35 Blood Culture - Preliminary Blood - Peripheral Venous NO GROWTH OBTAINED AFTER 72 HOURS, INCUBATION TO CONTINUE FOR 2 DAYS. 11/25/17 17:00 Blood Culture - Preliminary Blood - Peripheral Venous NO GROWTH OBTAINED AFTER 24 HOURS, INCUBATION TO CONTINUE FOR 4 DAYS. 11/23/17 22:10 Urine Culture - Final Urine - Urine Clean Catch -Nephrology consult -monitor Cr Code(s): N17.9 - ACUTE KIDNEY FAILURE, UNSPECIFIED
[2017-11-27] MEDS: ALBUTEROL SO4 2.5/IPRATROPIUM 0.5 INH SOL 3 ML VIAL.NEB. NEB SCH ×4 (08:33→21:25)
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
[2017-11-27] MEDS: DULoxetine HCL 30 MG CAPSULE.DR (FP) PO SCH (10:34)
[2017-11-27] MEDS: FUROSEMIDE 20 MG TABLET (FP) PO SCH (10:34)
[2017-11-27] MEDS: metoPROLOL SUCCINATE 25 MG TAB.SR.24H (FP) PO SCH ×2 (10:34→21:51)
[2017-11-27] MEDS: PANTOPRAZOLE 40 MG TABLET (FP) PO SCH (10:35)
[2017-11-27] MEDS: levETIRAcetam 500 MG TABLET (FP) PO SCH ×2 (10:35→21:50)
--- NOTE | 2017-11-27 10:39 | PN ---
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, Physician Chief Complaint: left arm swelling and bruising History of Present Illness: 77 yo male PMH of AAA repair 2012, CVA, TAA, afib, DVT, CAD, CHF, COPD, CKD, BPH , PPM, with Btr hypertension, hyperlipidemia, knee replacement and cataract repair who presents to the emergency department via EMS with a seizure like activity prior to arrival. Improved pain in the left arm compared to initial assessment. arm suspended. - Current Medication List Current Medications: Active Medications Acetaminophen (Tylenol -) 650 mg PO Q6H PRN PRN Reason: FEVER Albuterol Sulfate (Ventolin 0.083% Nebulizer Soln -) 1 amp NEB Q4H PRN PRN Reason: SHORT OF BREATH/WHEEZING Albuterol/Ipratropium (Duoneb -) 1 amp NEB RQID [facility] Last Admin: 11/27/17 08:33 Dose: 1 amp Atorvastatin Calcium (Lipitor -) 20 mg PO HS [facility] Last Admin: 11/26/17 21:41 Dose: 20 mg Chlorhexidine Gluconate (Hibiclens For Decolonization -) 1 applic TP HS [facility] Last Admin: 11/26/17 21:56 Dose: 1 applic Diltiazem HCl (Cardizem Cd -) 120 mg PO DAILY [facility] Last Admin: 11/26/17 09:25 Dose: 120 mg Duloxetine HCl (Cymbalta -) 60 mg PO DAILY [facility] Last Admin: 11/26/17 09:28 Dose: 60 mg Fluocinonide (Lidex 0.05% Cream -) 1 applic TP DAILY [facility] Last Admin: 11/26/17 10:51 Dose: 1 applic Furosemide (Lasix -) 20 mg PO DAILY [facility] Last Admin: 11/26/17 09:25 Dose: 20 mg Vancomycin HCl (Vancomycin 1 Gm Premix -) 1 gm in 200 mls @ 133.333 mls/hr IVPB Q12H [facility]; Protocol Last Admin: 11/27/17 03:29 Dose: 133.333 mls/hr Isosorbide Dinitrate (Isordil -) 10 mg PO BIDISORDIL [facility] Last Admin: 11/26/17 18:33 Dose: 10 mg Levetiracetam (Keppra -) 250 mg PO BID [facility] Last Admin: 11/26/17 21:42 Dose: 250 mg Methylprednisolone Sodium Succinate (Solu-Medrol -) 40 mg IVPUSH Q8H-IV [facility] Last Admin: 11/27/17 02:30 Dose: 40 mg Metoprolol Succinate (Toprol Xl -) 25 mg PO BID [facility] Last Admin: 11/26/17 21:42 Dose: Not Given Mupirocin (Bactroban Ointment (For Decolonization) -) 1 applic NS BID [facility] Stop: 11/30/17 21:59 Last Admin: 11/26/17 21:59 Dose: 1 applic Pantoprazole Sodium (Protonix -) 40 mg PO DAILY [facility] Last Admin: 11/26/17 09:25 Dose: 40 mg Pregabalin (Lyrica -) 100 mg PO TID [facility] Last Admin: 11/27/17 06:12 Dose: 100 mg - Objective Vital Signs: Vital Signs Temperature 98 F 11/27/17 06:00 Pulse Rate 60 11/27/17 08:33 Respiratory Rate 15 11/27/17 06:00 Blood Pressure 126/70 11/27/17 06:00 O2 Sat by Pulse Oximetry (%) 94 L 11/27/17 10:16 Vital Signs Period Temp Pulse Resp BP Sys/Varghese Pulse Ox Last 24 Hr 97.5 F-98.2 F 60-81 11-20 89-126/48-70 89-97 Intake & Output 11/26/17 11/27/17 11/27/17 23:59 07:59 15:59 Intake Total 370 320 Output Total 250 400 Balance 120 -80 Weight 154 lb 9.6 oz Intake: IV 250 Normal Saline - 250 ml @ 250 250 mls/hr IV ASDIR STA Rx#:[id number] IVPB 200 Oral 120 120 Output: Urine 250 400 Void 250 400 Other: Voiding Method Urinal Bowel Movement No No Weight Measurement Method Built in [facility] Constitutional: Yes: Well Nourished, No Distress, Mild Distress Eyes: Yes: Conjunctiva Clear, EOM Intact HENT: Yes: Atraumatic, Normocephalic Neck: Yes: Supple, Trachea Midline Cardiovascular: Yes: Regular Rate and Rhythm, S1, S2 Respiratory: Yes: Regular, CTA Bilaterally Gastrointestinal: Yes: Normal Bowel Sounds, Soft. No: Tenderness ...Rectal Exam: Yes: Deferred Genitourinary: No: CVA Tenderness - Left, CVA Tenderness - Right Extremities: No: Cool, Cyanosis Edema: Yes Edema: LUE: 2+ Peripheral Pulses WNL: Yes Peripheral Pulses: Left Radial: 2+, Right Radial: 2+ Integumentary: Yes: Bruising (bilateral arms L>>R), Skin Tear Neurological: Yes: Alert, Confusion Psychiatric: Yes: Alert, Oriented Labs: CBC, BMP 11/27/17 05:30 11/27/17 05:30 INR, PTT INR 1.04 (0.83-1.09) 11/27/17 05:30 Problem List - Problems (1) Traumatic hematoma of left upper arm Assessment/Plan: 77 yo RHD male MMP s/p L CTR [address] Charlie Gilman, low index of suspicion for acute compartment syndrome, hematomas have been demonstrated to be superficial. WBC >20 --> 13, radial pulse exam 2+. He is more comfortable today. Edema is resolving in the left arm. appreciate/ Elevation above heart level IV antibiotics per ID Consider holding anticoagulation Correct coagulopathy if possible PT evaluation for Edema management and ROM will follow Code(s): S40.022A - CONTUSION OF LEFT UPPER ARM, INITIAL ENCOUNTER Qualifiers: Encounter type: initial encounter Qualified Code(s): S40.022A - Contusion of left upper arm, initial encounter (2) Fall Code(s): W19.XXXA - UNSPECIFIED FALL, INITIAL ENCOUNTER Qualifiers: Encounter type: subsequent encounter Qualified Code(s): W19.XXXD - Unspecified fall, subsequent encounter (3) CAD (coronary artery disease) Code(s): I25.10 - ATHSCL HEART DISEASE OF [place] CORONARY ARTERY W/O ANG PCTRS Qualifiers: Coronary Disease-Associated Artery/Lesion type: elim [place] artery Associated angina: with stable angina (4) COPD (chronic obstructive pulmonary disease) Code(s): J44.9 - CHRONIC OBSTRUCTIVE PULMONARY DISEASE, UNSPECIFIED Qualifiers: COPD type: COPD with acute exacerbation Qualified Code(s): J44.1 - Chronic obstructive pulmonary disease with (acute) exacerbation (5) History of aortic aneurysm repair Code(s): Z98.890 - OTHER SPECIFIED POSTPROCEDURAL STATES; Z86.79 - PERSONAL HISTORY OF OTHER DISEASES OF THE CIRCULATORY SYSTEM (6) History of arterial bypass of lower extremity Code(s): Z95.828 - PRESENCE OF OTHER VASCULAR IMPLANTS AND GRAFTS
[2017-11-27] MEDS: MUPIROCIN 2% TOPICAL OINTMENT FOR DECOLONIZATION NS SCH ×2 (10:58→22:00)
[2017-11-27] MEDS: FLUOCINONIDE 0.05% CREAM (15 GM TUBE) TP SCH (10:58)
[2017-11-27] MEDS ORDERED: MORPHINE SULFATE 2 MG/ML VIAL IVPUSH ONE (11:00)
--- NOTE | 2017-11-27 11:05 | PN ---
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 (short form) - Note 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: alert NAD less arm pain Vital Signs Period Temp Pulse Resp BP Sys/Varghese Pulse Ox Last 24 Hr 97.5 F-98.2 F 60-81 11-20 89-126/48-70 89-97 cor-rrr lungs decreased bs at bases abd soft,nt ext hematoma of the arm unchanged CBC, BMP 11/27/17 05:30 11/27/17 05:30 Microbiology 11/26/17 19:00 Nasopharyngeal Swab Respiratory Syncytial Virus Ag - Final 11/26/17 02:40 Urine - Urine Clean Catch Urine Culture - Final NO GROWTH OBTAINED 11/25/17 17:45 Blood - Peripheral Venous Blood Culture - Preliminary Pending Organism 11/23/17 21:35 Blood - Peripheral Venous Blood Culture - Preliminary NO GROWTH OBTAINED AFTER 72 HOURS, INCUBATION TO CONTINUE FOR 2 DAYS. 11/23/17 21:35 Blood - Peripheral Venous Blood Culture - Preliminary NO GROWTH OBTAINED AFTER 72 HOURS, INCUBATION TO CONTINUE FOR 2 DAYS. 11/25/17 17:00 Blood - Peripheral Venous Blood Culture - Preliminary NO GROWTH OBTAINED AFTER 24 HOURS, INCUBATION TO CONTINUE FOR 4 DAYS. 11/23/17 22:10 Urine - Urine Clean Catch Urine Culture - Final imp/reccd gram positive bacteremia leukocytosis-improved new onset seizures left arm hematoma PPM thoracic aneurysm ?skin source repeat blood cultures pending vancomycin to continue echo-inadequate study
[2017-11-27] MEDS: ISOSORBIDE DINITRATE 10 MG TABLET (FP) PO SCH ×2 (11:10→18:46)
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
[2017-11-27 12:01] LABS: ACANTHOCYTES 0; ANISOCYTOSIS 0; HELMET CELLS 0; HOWELL-JOLLY BODIES 0; MACROCYTOSIS 0; OVALOCYTE 0; PLATELET ESTIMATE DECREASED; ROULEAU 0; SICKELED CELLS 0; TARGET CELLS 0; TEAR DROP CELLS 0; TOXIC GRANULATION 0
[2017-11-27] MEDS: MORPHINE SULFATE 2 MG/ML VIAL IVPUSH PRN (16:10)
[2017-11-27] MEDS: ACETAMINOPHEN 325 MG TABLET (FP) PO PRN (21:49)
[2017-11-27] MEDS: ATORVASTATIN CA 20 MG TABLET (FP) PO SCH (21:52)
[2017-11-27] MEDS: CHLORHEXIDINE GLUCONATE 4% CLEANSER FOR DECOLONIZATION TP SCH (22:00)
[2017-11-28] MEDS: MORPHINE SULFATE 2 MG/ML VIAL IVPUSH PRN ×3 (01:40→23:24)
[2017-11-28] MEDS: VANCOMYCIN 1 GM PREMIX - 1 GM/200 ML BAG IVPB SCH ×2 (03:37→14:53)
[2017-11-28 06:33] LABS: HEMATOCRIT 30.5 % (35.4-49); HEMOGLOBIN 9.8 GM/dL (11.7-16.9); LYMPH % 1.5 % (8-40); MCH 27.3 pg (25.7-33.7); MCHC 32.2 g/dl (32.0-35.9); MEAN CELL VOLUME 84.9 fl (80-96); MONO % 2.6 % (3.8-10.2); NEUT % 95.9 % (42.8-82.8); PLATELET COUNT 110 K/MM3 (134-434); RBC 3.59 M/mm3 (4.00-5.60); RDW 18.4 % (11.9-15.9); WHITE BLOOD COUNT 10.6 K/mm3 (4.0-10.0)
[2017-11-28] MEDS: PREGABALIN 100 MG CAPSULE PO SCH ×3 (06:49→21:26)
[2017-11-28 06:51] LABS: ALBUMIN 2.4 g/dl (3.4-5.0); ANION GAP 9 MMOL/L (8-16); BILIRUBIN,TOTAL 0.6 mg/dL (0.2-1.0); BLOOD UREA NITROGEN 69 mg/dL (7-18); CALCIUM 7.8 mg/dL (8.5-10.1); CHLORIDE 110 mmol/L (98-107); CO2 25 mmol/L (21-32); CREATININE 1.4 mg/dL (0.7-1.3); GLUCOSE,RANDOM 113 mg/dL (74-106); MAGNESIUM 2.9 mg/dL (1.8-2.4); PHOSPHOROUS 4.9 mg/dL (2.5-4.9); POTASSIUM 4.8 mmol/L (3.5-5.1); SGOT/AST 17 U/L (15-37); SGPT/ALT 39 U/L (12-78); SODIUM 144 mmol/L (136-145)
[2017-11-28 06:52] LABS: ALK PHOS 37 U/L (45-117)
[2017-11-28] MEDS: ALBUTEROL SO4 2.5/IPRATROPIUM 0.5 INH SOL 3 ML VIAL.NEB. NEB SCH ×4 (08:12→20:54)
--- NOTE | 2017-11-28 08:43 | PN ---
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, Physician Chief Complaint: Alert, no distress TELE: paced, with few runs NSVT - Current Medication List Current Medications: Active Medications Acetaminophen (Tylenol -) 650 mg PO Q6H PRN PRN Reason: FEVER Last Admin: 11/27/17 21:49 Dose: 650 mg Albuterol Sulfate (Ventolin 0.083% Nebulizer Soln -) 1 amp NEB Q4H PRN PRN Reason: SHORT OF BREATH/WHEEZING Albuterol/Ipratropium (Duoneb -) 1 amp NEB RQID [facility] Last Admin: 11/28/17 08:12 Dose: 1 amp Atorvastatin Calcium (Lipitor -) 20 mg PO HS [facility] Last Admin: 11/27/17 21:52 Dose: 20 mg Chlorhexidine Gluconate (Hibiclens For Decolonization -) 1 applic TP HS [facility] Last Admin: 11/27/17 22:00 Dose: 1 applic Diltiazem HCl (Cardizem Cd -) 120 mg PO DAILY [facility] Last Admin: 11/27/17 10:35 Dose: 120 mg Duloxetine HCl (Cymbalta -) 60 mg PO DAILY [facility] Last Admin: 11/27/17 10:34 Dose: 60 mg Fluocinonide (Lidex 0.05% Cream -) 1 applic TP DAILY [facility] Last Admin: 11/27/17 10:58 Dose: Not Given Furosemide (Lasix -) 20 mg PO DAILY [facility] Last Admin: 11/27/17 10:34 Dose: 20 mg Vancomycin HCl (Vancomycin 1 Gm Premix -) 1 gm in 200 mls @ 133.333 mls/hr IVPB Q12H [facility]; Protocol Last Admin: 11/28/17 03:37 Dose: 133.333 mls/hr Isosorbide Dinitrate (Isordil -) 10 mg PO BIDISORDIL [facility] Last Admin: 11/27/17 18:46 Dose: 10 mg Levetiracetam (Keppra -) 250 mg PO BID [facility] Last Admin: 11/27/17 21:50 Dose: 250 mg Lisinopril (Prinivil) 10 mg PO DAILY [facility] Methylprednisolone Sodium Succinate (Solu-Medrol -) 40 mg IVPUSH BID [facility] Last Admin: 11/27/17 21:50 Dose: 40 mg Metoprolol Succinate (Toprol Xl -) 25 mg PO BID [facility] Last Admin: 11/27/17 21:51 Dose: 25 mg Morphine Sulfate (Morphine Sulfate) 2 mg IVPUSH Q6H PRN PRN Reason: PAIN LEVEL 7 - 10 Last Admin: 11/28/17 01:40 Dose: 2 mg Mupirocin (Bactroban Ointment (For Decolonization) -) 1 applic NS BID [facility] Stop: 11/30/17 21:59 Last Admin: 11/27/17 22:00 Dose: 1 applic Pantoprazole Sodium (Protonix -) 40 mg PO DAILY [facility] Last Admin: 11/27/17 10:35 Dose: 40 mg Pregabalin (Lyrica -) 100 mg PO TID [facility] Last Admin: 11/28/17 06:49 Dose: 100 mg - Objective Vital Signs: Vital Signs Temperature 98.4 F 11/28/17 06:00 Pulse Rate 66 11/28/17 08:11 Respiratory Rate 17 11/28/17 06:00 Blood Pressure 138/79 11/28/17 06:00 O2 Sat by Pulse Oximetry (%) 96 11/28/17 08:11 Constitutional: Yes: No Distress Cardiovascular: Yes: Regular Rate and Rhythm Respiratory: Yes: Other (decreased breath sounds, no wheezing) Gastrointestinal: Yes: Soft Edema: No Neurological: Yes: Alert, Oriented ...Motor Strength: WNL Labs: CBC, BMP 11/28/17 05:30 11/28/17 05:30 INR, PTT INR 1.04 (0.83-1.09) 11/27/17 05:30 - ....Imaging EKG: Image Reviewed Assessment/Plan IMP: ASHD PAD ICM s/p VP RESPIRATORY-P Multiple aneurysms AF Traumatic hematoma, upper extremity Fall COPD, acute exacerbation Possible blood culture contaminant REC: 1. Holding AC for now. 2. Steroid taper 3. Abx as per ID , serial cultures 4. D/C Cardizem (already on Toprol) 5. Keep K+ > 4 and Mg2+ > 2
--- NOTE | 2017-11-28 09:01 | PN ---
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, Physician - Current Medication List Current Medications: Active Medications Acetaminophen (Tylenol -) 650 mg PO Q6H PRN PRN Reason: FEVER Last Admin: 11/27/17 21:49 Dose: 650 mg Albuterol Sulfate (Ventolin 0.083% Nebulizer Soln -) 1 amp NEB Q4H PRN PRN Reason: SHORT OF BREATH/WHEEZING Albuterol/Ipratropium (Duoneb -) 1 amp NEB RQID [facility] Last Admin: 11/28/17 08:12 Dose: 1 amp Atorvastatin Calcium (Lipitor -) 20 mg PO HS [facility] Last Admin: 11/27/17 21:52 Dose: 20 mg Chlorhexidine Gluconate (Hibiclens For Decolonization -) 1 applic TP HS [facility] Last Admin: 11/27/17 22:00 Dose: 1 applic Duloxetine HCl (Cymbalta -) 60 mg PO DAILY [facility] Last Admin: 11/27/17 10:34 Dose: 60 mg Fluocinonide (Lidex 0.05% Cream -) 1 applic TP DAILY [facility] Last Admin: 11/27/17 10:58 Dose: Not Given Furosemide (Lasix -) 20 mg PO DAILY [facility] Last Admin: 11/27/17 10:34 Dose: 20 mg Vancomycin HCl (Vancomycin 1 Gm Premix -) 1 gm in 200 mls @ 133.333 mls/hr IVPB Q12H [facility]; Protocol Last Admin: 11/28/17 03:37 Dose: 133.333 mls/hr Isosorbide Dinitrate (Isordil -) 10 mg PO BIDISORDIL [facility] Last Admin: 11/27/17 18:46 Dose: 10 mg Levetiracetam (Keppra -) 250 mg PO BID [facility] Last Admin: 11/27/17 21:50 Dose: 250 mg Lisinopril (Prinivil) 10 mg PO DAILY [facility] Methylprednisolone Sodium Succinate (Solu-Medrol -) 40 mg IVPUSH BID [facility] Last Admin: 11/27/17 21:50 Dose: 40 mg Metoprolol Succinate (Toprol Xl -) 25 mg PO BID [facility] Last Admin: 11/27/17 21:51 Dose: 25 mg Morphine Sulfate (Morphine Sulfate) 2 mg IVPUSH Q6H PRN PRN Reason: PAIN LEVEL 7 - 10 Last Admin: 11/28/17 01:40 Dose: 2 mg Mupirocin (Bactroban Ointment (For Decolonization) -) 1 applic NS BID [facility] Stop: 11/30/17 21:59 Last Admin: 11/27/17 22:00 Dose: 1 applic Pantoprazole Sodium (Protonix -) 40 mg PO DAILY [facility] Last Admin: 11/27/17 10:35 Dose: 40 mg Pregabalin (Lyrica -) 100 mg PO TID [facility] Last Admin: 11/28/17 06:49 Dose: 100 mg - Objective Vital Signs: Vital Signs Temperature 98.4 F 11/28/17 06:00 Pulse Rate 71 11/28/17 08:47 Respiratory Rate 18 11/28/17 08:53 Blood Pressure 159/93 11/28/17 08:47 O2 Sat by Pulse Oximetry (%) 96 11/28/17 08:53 Cardiovascular: Yes: S1, S2 Respiratory: Yes: On BiPap Gastrointestinal: Yes: Normal Bowel Sounds, Soft Edema: Yes (improving) Labs: CBC, BMP 11/28/17 05:30 11/28/17 05:30 INR, PTT INR 1.04 (0.83-1.09) 11/27/17 05:30 Problem List - Problems (1) Fall Assessment/Plan: -Physical therapy -CT head negative -Neurology consult -Safety precautions Code(s): W19.XXXA - UNSPECIFIED FALL, INITIAL ENCOUNTER Qualifiers: Encounter type: subsequent encounter Qualified Code(s): W19.XXXD - Unspecified fall, subsequent encounter (2) Seizure Assessment/Plan: per neuro on kepra Code(s): R56.9 - UNSPECIFIED CONVULSIONS (3) Traumatic hematoma of left upper arm Assessment/Plan: vascular on upper caser Code(s): S40.022A - CONTUSION OF LEFT UPPER ARM, INITIAL ENCOUNTER Qualifiers: Encounter type: initial encounter Qualified Code(s): S40.022A - Contusion of left upper arm, initial encounter (4) CAD (coronary artery disease) Assessment/Plan: -Statin -BB -On Isosorbide -Cardiac cath in the past with EF >40% -has ICM with permanent Cardiac resynchronization therapy defibrillator ([employer]-D) as 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 in the past Code(s): I25.10 - ATHSCL HEART DISEASE OF [place] CORONARY ARTERY W/O ANG PCTRS Qualifiers: Coronary Disease-Associated Artery/Lesion type: [place] artery Associated angina: with stable angina (5) COPD (chronic obstructive pulmonary disease) Assessment/Plan: -On non re-breather now -CXR unremarkable -Pulmonary consult -Bronchodilators -Prednisone 10 mg po BID at home, would continue Code(s): J44.9 - CHRONIC OBSTRUCTIVE PULMONARY DISEASE, UNSPECIFIED Qualifiers: COPD type: COPD with acute exacerbation Qualified Code(s): J44.1 - Chronic obstructive pulmonary disease with (acute) exacerbation (6) Old cerebrovascular accident (CVA) without late effect Assessment/Plan: -Neurology consult -CT head negative -Unable to do MRI due to implantable device Code(s): Z86.73 - PRSNL HX OF TIA (TIA), AND CEREB INFRC W/O RESID DEFICITS (7) Paroxysmal atrial fibrillation Assessment/Plan: -On eliquis at home--on hold -Hold for another 24 hours due to LUE hematoma -Monitor H/H for any drop suggesting blood loss Code(s): I48.0 - PAROXYSMAL ATRIAL FIBRILLATION (8) Presence of cardiac pacemaker Code(s): Z95.0 - PRESENCE OF CARDIAC PACEMAKER (9) Acute kidney injury Assessment/Plan: -UA/UC pending Microbiology 11/25/17 17:45 Blood Culture - Preliminary Blood - Peripheral Venous Pending Organism 11/23/17 21:35 Blood Culture - Preliminary Blood - Peripheral Venous NO GROWTH OBTAINED AFTER 72 HOURS, INCUBATION TO CONTINUE FOR 2 DAYS. 11/23/17 21:35 Blood Culture - Preliminary Blood - Peripheral Venous NO GROWTH OBTAINED AFTER 72 HOURS, INCUBATION TO CONTINUE FOR 2 DAYS. 11/25/17 17:00 Blood Culture - Preliminary Blood - Peripheral Venous NO GROWTH OBTAINED AFTER 24 HOURS, INCUBATION TO CONTINUE FOR 4 DAYS. 11/23/17 22:10 Urine Culture - Final Urine - Urine Clean Catch -Nephrology consult -monitor Cr Code(s): N17.9 - ACUTE KIDNEY FAILURE, UNSPECIFIED
[2017-11-28] MEDS: levETIRAcetam 500 MG TABLET (FP) PO SCH ×2 (09:25→21:26)
[2017-11-28] MEDS: DULoxetine HCL 30 MG CAPSULE.DR (FP) PO SCH (09:26)
[2017-11-28] MEDS: MUPIROCIN 2% TOPICAL OINTMENT FOR DECOLONIZATION NS SCH ×2 (09:26→21:29)
[2017-11-28] MEDS: FUROSEMIDE 20 MG TABLET (FP) PO SCH (09:27)
--- NOTE | 2017-11-28 09:27 | PN ---
Physical Exam: SUBJECTIVE: Patient is a 77 y/o male with a history of afib, HTN, HLD, CAD, COPD, DM, PAD, AAA who is here for acute hypoxic respiratory failure 2/2 to COPD exacerbation. Patient has no complaints overnight. He is still on bipap and tolerating it well. OBJECTIVE: Vital Signs Temperature 98.4 F 11/28/17 06:00 Pulse Rate 71 11/28/17 08:47 Respiratory Rate 18 11/28/17 08:53 Blood Pressure 159/93 11/28/17 08:47 O2 Sat by Pulse Oximetry (%) 96 11/28/17 08:53 GENERAL: Awake and alert EYES: Pupils equal, round and reactive to light, extraocular movements intact EARS, NOSE, THROAT: Ears normal, nares patent, oropharynx clear without exudates. Moist mucous membranes. LUNGS: lungs clear to auscultation, lower base expiratory wheezes, no accessory muscle use HEART: Regular rate and rhythm, ABDOMEN: Soft, nontender, not distended, LOWER EXTREMITIES: 2+ dp pulses, warm, well-perfused. No calf tenderness. No peripheral edema. 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 CBCD WBC 10.6 K/mm3 (4.0-10.0) H 11/28/17 05:30 RBC 3.59 M/mm3 (4.00-5.60) L 11/28/17 05:30 Hgb 9.8 GM/dL (11.7-16.9) L 11/28/17 05:30 Hct 30.5 % (35.4-49) L 11/28/17 05:30 MCV 84.9 fl (80-96) 11/28/17 05:30 MCHC 32.2 g/dl (32.0-35.9) 11/28/17 05:30 RDW 18.4 % (11.9-15.9) H 11/28/17 05:30 Plt Count 110 K/MM3 (134-434) L 11/28/17 05:30 MPV 10.0 fl (7.5-11.1) 11/28/17 05:30 CMP Sodium 144 mmol/L (136-145) 11/28/17 05:30 Potassium 4.8 mmol/L (3.5-5.1) 11/28/17 05:30 Chloride 110 mmol/L (98-107) H 11/28/17 05:30 Carbon Dioxide 25 mmol/L (21-32) 11/28/17 05:30 Anion Gap 9 MMOL/L (8-16) 11/28/17 05:30 BUN 69 mg/dL (7-18) H 11/28/17 05:30 Creatinine 1.4 mg/dL (0.7-1.3) H 11/28/17 05:30 Creat Clearance w eGFR 48.89 (>60) 11/28/17 05:30 Calcium 7.8 mg/dL (8.5-10.1) L 11/28/17 05:30 Total Bilirubin 0.6 mg/dL (0.2-1.0) 11/28/17 05:30 AST 17 U/L (15-37) D 11/28/17 05:30 ALT 39 U/L (12-78) 11/28/17 05:30 Alkaline Phosphatase 37 U/L (45-117) L 11/28/17 05:30 Total Protein 5.0 g/dl (6.4-8.2) L 11/28/17 05:30 Albumin 2.4 g/dl (3.4-5.0) L 11/28/17 05:30 Active Medications Acetaminophen (Tylenol -) 650 mg PO Q6H PRN PRN Reason: FEVER Last Admin: 11/27/17 21:49 Dose: 650 mg Albuterol Sulfate (Ventolin 0.083% Nebulizer Soln -) 1 amp NEB Q4H PRN PRN Reason: SHORT OF BREATH/WHEEZING Albuterol/Ipratropium (Duoneb -) 1 amp NEB RQID [facility] Last Admin: 11/28/17 08:12 Dose: 1 amp Atorvastatin Calcium (Lipitor -) 20 mg PO [facility] Last Admin: 11/27/17 21:52 Dose: 20 mg Chlorhexidine Gluconate (Hibiclens For Decolonization -) 1 applic TP [facility] Last Admin: 11/27/17 22:00 Dose: 1 applic Duloxetine HCl (Cymbalta -) 60 mg PO DAILY [facility] Last Admin: 11/27/17 10:34 Dose: 60 mg Fluocinonide (Lidex 0.05% Cream -) 1 applic TP DAILY [facility] Last Admin: 11/27/17 10:58 Dose: Not Given Furosemide (Lasix -) 20 mg PO DAILY [facility] Last Admin: 11/27/17 10:34 Dose: 20 mg Vancomycin HCl (Vancomycin 1 Gm Premix -) 1 gm in 200 mls @ 133.333 mls/hr IVPB Q12H [facility]; Protocol Last Admin: 11/28/17 03:37 Dose: 133.333 mls/hr Isosorbide Dinitrate (Isordil -) 10 mg PO BIDISORDIL [facility] Last Admin: 11/27/17 18:46 Dose: 10 mg Levetiracetam (Keppra -) 250 mg PO BID [facility] Last Admin: 11/27/17 21:50 Dose: 250 mg Lisinopril (Prinivil) 10 mg PO DAILY [facility] Methylprednisolone Sodium Succinate (Solu-Medrol -) 40 mg IVPUSH BID [facility] Last Admin: 11/27/17 21:50 Dose: 40 mg Metoprolol Succinate (Toprol Xl -) 25 mg PO BID [facility] Last Admin: 11/27/17 21:51 Dose: 25 mg Morphine Sulfate (Morphine Sulfate) 2 mg IVPUSH Q6H PRN PRN Reason: PAIN LEVEL 7 - 10 Last Admin: 11/28/17 01:40 Dose: 2 mg Mupirocin (Bactroban Ointment (For Decolonization) -) 1 applic NS BID [facility] Stop: 11/30/17 21:59 Last Admin: 11/27/17 22:00 Dose: 1 applic Pantoprazole Sodium (Protonix -) 40 mg PO DAILY [facility] Last Admin: 11/27/17 10:35 Dose: 40 mg Pregabalin (Lyrica -) 100 mg PO TID [facility] Last Admin: 11/28/17 06:49 Dose: 100 mg ASSESSMENT/PLAN: Patient is a 77 y/o male with a history of afib, HTN, HLD, CAD, COPD, DM, PAD, AAA who is here for acute hypoxic respiratory failure 2/2 to COPD exacerbation. Neuro Seizure like actvity/ vs fall - patient A & O x1 - Neurology Dr. Melo: may be partial seizure - Keppra 250 mg po BID - head CT: no acute intracranial hemorrhage or acute vascular territory infarction - EEG when possible - consulted Dr. Zamudio to determine capacity Cardio afib/CAD/HTN - anticoagulation held with patients large hematoma - diltiazem 120 mg po - aspirin 81 mg po daily - Isosorbide dinitrate 10 mg po - lipitor 20 mg po hs - metoprolol 25 mg po BID - currently rate controlled and stable - privinil restarted at 10 mg daily - echo inadequate study Pulm acute on chronic hypoxic respiratory failure 2/2 to COPD exacerbation - CXR: no sign of acute process - patient on oxygen at home - switch from Bipap to high flow - keep oxygen saturation below 95 % as patient is a chronic retainer COPD - Methylprednisolone 40 mg IV push q12h - duonebs QID - albuterol q4h Renal - furosemide 20 mg po daily - monitor I's % O's MSK Hematoma of LUE - UE doppler: no evidence or arterial dissection or aneyursm , superficial hematomas in LUE - history of AAA repair at [facility] - per vascular Dr. Hendricks and surgery Dr. Palumbo, no evidence of compartment syndrome - hold all anticoagulation as to not worsen hematoma - monitor hemoglobin dropping slightly Infectious disease - bcx: Streptococcus Mitis - Vancomycin 1 gm - Streptococcus Mitis sensitive to other antibiotics, discuss with ID to deescalate antibiotics - patient afebrile overnight GI ppx - protonix 40 mg po daily BPH - tamsulosin .4 mg Endocrine DM - Lyrica 100 mg po TID - A1 C: 6.0 - TSH .12, Free T4:1 DVT ppx - SCD's depression - cymbalta 60 mg po daily FEN - diabetic/low sodium diet Dispo:f/u PT Visit type - Emergency Visit Emergency Visit: No - New Patient This patient is new to me today: No - Critical Care Critical Care patient: Yes Total Critical Care Time (in minutes): 40 Critical Care Statement: The care of this patient involved high complexity decision making to prevent further life threatening deterioration of the patient 's condition and/or to evaluate & treat vital organ system(s) failure or risk of failure.
[2017-11-28] MEDS: methylPREDNISolone NA SUCC 40 MG/1 ML VIAL IVPUSH SCH ×2 (09:28→21:25)
[2017-11-28] MEDS: PANTOPRAZOLE 40 MG TABLET (FP) PO SCH (09:28)
[2017-11-28] MEDS: metoPROLOL SUCCINATE 25 MG TAB.SR.24H (FP) PO SCH ×2 (09:28→21:27)
[2017-11-28] MEDS: FLUOCINONIDE 0.05% CREAM (15 GM TUBE) TP SCH (09:30)
[2017-11-28] MEDS ORDERED: PT OWN MED DRAWER 7, Y5N ONE ×2 (09:39→17:52)
[2017-11-28] MEDS: ISOSORBIDE DINITRATE 10 MG TABLET (FP) PO SCH ×2 (09:40→18:20)
[2017-11-28] MEDS ORDERED: LISINOPRIL 10 MG TABLET (FP) PO SCH ×2 (10:00→14:41)
[2017-11-28 11:05] LABS: ANISOCYTOSIS 0; MACROCYTOSIS 0; PLATELET ESTIMATE DECREASED
--- NOTE | 2017-11-28 12:10 | PN ---
Teaching Attending Note Name of Resident: Erna Newman ATTENDING PHYSICIAN STATEMENT I saw and evaluated the patient. I reviewed the resident's note and discussed the case with the resident. I agree with the resident's findings and plan as documented. SUBJECTIVE: Pt seen and examined in the ICU. On/off BiPAP alternating with ventimask but still desaturating. OBJECTIVE: Vital Signs Period Temp Pulse Resp BP Sys/Varghese Pulse Ox Last 24 Hr 98 F-98.4 F 62-84 16-22 120-159/60-93 90-99 Intake & Output 11/25/17 11/26/17 11/27/17 11/28/17 23:59 23:59 23:59 23:59 Intake Total 1920 1400 910 250 Output Total 1100 1270 860 500 Balance 820 130 50 -250 Weight 72.03 kg 69.853 kg 70.5 kg Gen: NAD at rest Heart: RRR Lung: scattered rhonchi Abd: soft, nontender Ext: bilateral UE hematomas CBC, BMP 11/28/17 05:30 11/28/17 05:30 Active Medications Acetaminophen (Tylenol -) 650 mg PO Q6H PRN PRN Reason: FEVER Last Admin: 11/27/17 21:49 Dose: 650 mg Albuterol Sulfate (Ventolin 0.083% Nebulizer Soln -) 1 amp NEB Q4H PRN PRN Reason: SHORT OF BREATH/WHEEZING Albuterol/Ipratropium (Duoneb -) 1 amp NEB RQID [facility] Last Admin: 11/28/17 11:46 Dose: 1 amp Atorvastatin Calcium (Lipitor -) 20 mg PO HS [facility] Last Admin: 11/27/17 21:52 Dose: 20 mg Chlorhexidine Gluconate (Hibiclens For Decolonization -) 1 applic TP HS [facility] Last Admin: 11/27/17 22:00 Dose: 1 applic Duloxetine HCl (Cymbalta -) 60 mg PO DAILY [facility] Last Admin: 11/28/17 09:26 Dose: 60 mg Fluocinonide (Lidex 0.05% Cream -) 1 applic TP DAILY [facility] Last Admin: 11/28/17 09:30 Dose: 1 applic Furosemide (Lasix -) 20 mg PO DAILY [facility] Last Admin: 11/28/17 09:27 Dose: 20 mg Vancomycin HCl (Vancomycin 1 Gm Premix -) 1 gm in 200 mls @ 133.333 mls/hr IVPB Q12H [facility]; Protocol Last Admin: 11/28/17 03:37 Dose: 133.333 mls/hr Isosorbide Dinitrate (Isordil -) 10 mg PO BIDISORDIL [facility] Last Admin: 11/28/17 09:40 Dose: 10 mg Levetiracetam (Keppra -) 250 mg PO BID [facility] Last Admin: 11/28/17 09:25 Dose: 250 mg Lisinopril (Prinivil) 10 mg PO DAILY [facility] Last Admin: 11/28/17 09:28 Dose: 10 mg Methylprednisolone Sodium Succinate (Solu-Medrol -) 40 mg IVPUSH BID [facility] Last Admin: 11/28/17 09:28 Dose: 40 mg Metoprolol Succinate (Toprol Xl -) 25 mg PO BID [facility] Last Admin: 11/28/17 09:28 Dose: 25 mg Morphine Sulfate (Morphine Sulfate) 2 mg IVPUSH Q6H PRN PRN Reason: PAIN LEVEL 7 - 10 Last Admin: 11/28/17 01:40 Dose: 2 mg Mupirocin (Bactroban Ointment (For Decolonization) -) 1 applic NS BID [facility] Stop: 11/30/17 21:59 Last Admin: 11/28/17 09:26 Dose: 1 applic Pantoprazole Sodium (Protonix -) 40 mg PO DAILY [facility] Last Admin: 11/28/17 09:28 Dose: 40 mg Pregabalin (Lyrica -) 100 mg PO TID [facility] Last Admin: 11/28/17 06:49 Dose: 100 mg ASSESSMENT AND PLAN: Acute on Chronic Hypoxic Respiratory Failure Left Arm Hematoma Seizures Acute COPD Exacerbation LV Diastolic Dysfunction Atrial Fibrillation Acute on Chronic Renal Failure h/o CVA CAD HTN Hyperlipidemia - monitor hematoma - on empiric antibiotics - continue medrol - inhaled bronchodilators - O2 to keep Spo2 >90% - start high flow O2 - continue home lasix - monitor urine output, creatinine - rate control - holding anticoagulation - continue ICU monitoring critical care time spent in reviewing chart, evaluating patient and formulating plan 35 min
--- NOTE | 2017-11-28 14:01 | CON.PSY ---
Psychiatry Consult Chief Complaint: 77 year old Male with a history of Stroke admitted with COPD. patient apparantly got very aggressive toward staff. Spoke to patients . Symptoms: reports: Inability to Control Temper, Aggressivity - Previous Psychiatric Treatment Outpatient: None Inpatient: None - Previous Substance Abuse Treatment Outpatient: None Inpatient: None - Reason for Previous Treatment Reason for Previous Treatment: Major Depression - Current Medications Current Medications: Active Medications Acetaminophen (Tylenol -) 650 mg PO Q6H PRN PRN Reason: FEVER Last Admin: 11/27/17 21:49 Dose: 650 mg Albuterol Sulfate (Ventolin 0.083% Nebulizer Soln -) 1 amp NEB Q4H PRN PRN Reason: SHORT OF BREATH/WHEEZING Albuterol/Ipratropium (Duoneb -) 1 amp NEB RQID [facility] Last Admin: 11/28/17 11:46 Dose: 1 amp Atorvastatin Calcium (Lipitor -) 20 mg PO HS [facility] Last Admin: 11/27/17 21:52 Dose: 20 mg Chlorhexidine Gluconate (Hibiclens For Decolonization -) 1 applic TP HS [facility] Last Admin: 11/27/17 22:00 Dose: 1 applic Duloxetine HCl (Cymbalta -) 60 mg PO DAILY [facility] Last Admin: 11/28/17 09:26 Dose: 60 mg Fluocinonide (Lidex 0.05% Cream -) 1 applic TP DAILY [facility] Last Admin: 11/28/17 09:30 Dose: 1 applic Furosemide (Lasix -) 20 mg PO DAILY [facility] Last Admin: 11/28/17 09:27 Dose: 20 mg Vancomycin HCl (Vancomycin 1 Gm Premix -) 1 gm in 200 mls @ 133.333 mls/hr IVPB Q12H [facility]; Protocol Last Admin: 11/28/17 03:37 Dose: 133.333 mls/hr Isosorbide Dinitrate (Isordil -) 10 mg PO BIDISORDIL [facility] Last Admin: 11/28/17 09:40 Dose: 10 mg Levetiracetam (Keppra -) 250 mg PO BID [facility] Last Admin: 11/28/17 09:25 Dose: 250 mg Lisinopril (Prinivil) 10 mg PO DAILY [facility] Last Admin: 11/28/17 09:28 Dose: 10 mg Methylprednisolone Sodium Succinate (Solu-Medrol -) 40 mg IVPUSH BID [facility] Last Admin: 11/28/17 09:28 Dose: 40 mg Metoprolol Succinate (Toprol Xl -) 25 mg PO BID [facility] Last Admin: 11/28/17 09:28 Dose: 25 mg Morphine Sulfate (Morphine Sulfate) 2 mg IVPUSH Q6H PRN PRN Reason: PAIN LEVEL 7 - 10 Last Admin: 11/28/17 01:40 Dose: 2 mg Mupirocin (Bactroban Ointment (For Decolonization) -) 1 applic NS BID [facility] Stop: 11/30/17 21:59 Last Admin: 11/28/17 09:26 Dose: 1 applic Pantoprazole Sodium (Protonix -) 40 mg PO DAILY [facility] Last Admin: 11/28/17 09:28 Dose: 40 mg Pregabalin (Lyrica -) 100 mg PO TID [facility] Last Admin: 11/28/17 06:49 Dose: 100 mg - Allergies Allergies: Allergies Allergy/AdvReac Type Severity Reaction Status Date / Time No Known Allergies Allergy Verified 11/23/17 21:04 - Current Living Status Usual Living Arrangement: With Spouse - Current Mental Status Evaluation Appearance: Disheveled Attitude: Guarded - Affect Affect: Constrictive Appropriateness: Not Appropriate - Mood Mood: Irritable - Speech/Language Expressive: Coherent - Psychomotor Activity Psychomotor Activity: Slowed - Thought Process Thought Process: Circumstantial - Thought Content Hallucinations: Absent Delusions: Absent - Self Perception Self Perception: No Impairment - Cognition Attention: Alert Orientation: Time Memory, Immediate Recall: Impaired Memory, Short Term: 1/3 Memory, Remote with Promptin/3 - Concentration Serial Sevens Intact: No Simple Calculations Intact: No - Insight Insight: Impaired - Impulse Control Impulse Control: Moderately Impaired - Suicidal Ideation Suicidal Ideation: No - Homicidal Ideation Homicidal Ideation: No Assessment/Plan 1) Continue with Duloxatine 60mg po od. 2) Ativan 1mg IM Q 8hrs Prn for aggressive behaviour.
--- NOTE | 2017-11-28 14:41 | PN ---
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, Physician History of Present Illness: Pt seen and examined at bedside. He is awake and appears calm at the moment. He is on high flow oxygen. - Current Medication List Current Medications: Active Medications Acetaminophen (Tylenol -) 650 mg PO Q6H PRN PRN Reason: FEVER Last Admin: 11/27/17 21:49 Dose: 650 mg Albuterol Sulfate (Ventolin 0.083% Nebulizer Soln -) 1 amp NEB Q4H PRN PRN Reason: SHORT OF BREATH/WHEEZING Albuterol/Ipratropium (Duoneb -) 1 amp NEB RQID [facility] Last Admin: 11/28/17 11:46 Dose: 1 amp Atorvastatin Calcium (Lipitor -) 20 mg PO HS [facility] Last Admin: 11/27/17 21:52 Dose: 20 mg Chlorhexidine Gluconate (Hibiclens For Decolonization -) 1 applic TP HS [facility] Last Admin: 11/27/17 22:00 Dose: 1 applic Duloxetine HCl (Cymbalta -) 60 mg PO DAILY [facility] Last Admin: 11/28/17 09:26 Dose: 60 mg Fluocinonide (Lidex 0.05% Cream -) 1 applic TP DAILY [facility] Last Admin: 11/28/17 09:30 Dose: 1 applic Furosemide (Lasix -) 20 mg PO DAILY [facility] Last Admin: 11/28/17 09:27 Dose: 20 mg Vancomycin HCl (Vancomycin 1 Gm Premix -) 1 gm in 200 mls @ 133.333 mls/hr IVPB Q12H [facility]; Protocol Last Admin: 11/28/17 03:37 Dose: 133.333 mls/hr Isosorbide Dinitrate (Isordil -) 10 mg PO BIDISORDIL [facility] Last Admin: 11/28/17 09:40 Dose: 10 mg Levetiracetam (Keppra -) 250 mg PO BID [facility] Last Admin: 11/28/17 09:25 Dose: 250 mg Lisinopril (Prinivil) 10 mg PO DAILY [facility] Last Admin: 11/28/17 09:28 Dose: 10 mg Lorazepam (Ativan Injection -) 1 mg IM Q8H PRN PRN Reason: AGITATION Methylprednisolone Sodium Succinate (Solu-Medrol -) 40 mg IVPUSH BID [facility] Last Admin: 11/28/17 09:28 Dose: 40 mg Metoprolol Succinate (Toprol Xl -) 25 mg PO BID [facility] Last Admin: 11/28/17 09:28 Dose: 25 mg Morphine Sulfate (Morphine Sulfate) 2 mg IVPUSH Q6H PRN PRN Reason: PAIN LEVEL 7 - 10 Last Admin: 11/28/17 01:40 Dose: 2 mg Mupirocin (Bactroban Ointment (For Decolonization) -) 1 applic NS BID [facility] Stop: 11/30/17 21:59 Last Admin: 11/28/17 09:26 Dose: 1 applic Pantoprazole Sodium (Protonix -) 40 mg PO DAILY [facility] Last Admin: 11/28/17 09:28 Dose: 40 mg Pregabalin (Lyrica -) 100 mg PO TID [facility] Last Admin: 11/28/17 06:49 Dose: 100 mg - Objective Vital Signs: Vital Signs Temperature 98.4 F 11/28/17 06:00 Pulse Rate 71 11/28/17 08:47 Respiratory Rate 18 11/28/17 08:53 Blood Pressure 159/93 11/28/17 08:47 O2 Sat by Pulse Oximetry (%) 97 11/28/17 14:28 Constitutional: Yes: Calm Eyes: Yes: Conjunctiva Clear HENT: Yes: Atraumatic Neck: Yes: Supple Cardiovascular: Yes: S1, S2 Respiratory: Yes: On Nasal O2 Gastrointestinal: Yes: Normal Bowel Sounds, Soft Genitourinary: Yes: WNL Musculoskeletal: Yes: Other (left arm bruising and edema) Edema: Yes Edema: LUE: 1+ Integumentary: Yes: Bruising Neurological: Yes: Oriented Labs: CBC, BMP 11/28/17 05:30 11/28/17 05:30 INR, PTT INR 1.04 (0.83-1.09) 11/27/17 05:30 - ....Imaging Chest X-ray: Report Reviewed Problem List - Problems (1) Fall Code(s): W19.XXXA - UNSPECIFIED FALL, INITIAL ENCOUNTER Qualifiers: Encounter type: subsequent encounter Qualified Code(s): W19.XXXD - Unspecified fall, subsequent encounter (2) CAD (coronary artery disease) Code(s): I25.10 - ATHSCL HEART DISEASE OF [place] CORONARY ARTERY W/O ANG PCTRS Qualifiers: Coronary Disease-Associated Artery/Lesion type: [place] artery Associated angina: with stable angina (3) CHF (congestive heart failure) Code(s): I50.9 - HEART FAILURE, UNSPECIFIED (4) CKD (chronic kidney disease) Code(s): N18.9 - CHRONIC KIDNEY DISEASE, UNSPECIFIED Qualifiers: Chronic kidney disease stage: stage 3 (moderate) Qualified Code(s): N18.3 - Chronic kidney disease, stage 3 (moderate) Assessment/Plan Current Medications Generic Name Dose Route Start Last Admin Trade Name Freq PRN Reason Stop Dose Admin Acetaminophen 650 mg 11/25/17 20:29 11/27/17 21:49 Tylenol - PO 650 mg Q6H PRN Administration FEVER Albuterol Sulfate 1 amp 11/25/17 12:40 Ventolin 0.083% Nebulizer Soln - NEB Q4H PRN SHORT OF BREATH/WHEEZING Albuterol/Ipratropium 1 amp 11/26/17 12:00 11/28/17 11:46 Duoneb - NEB 1 amp RQID [facility] Administration Atorvastatin Calcium 20 mg 11/25/17 22:00 11/27/17 21:52 Lipitor - PO 20 mg HS [facility] Administration Chlorhexidine Gluconate 1 applic 11/25/17 22:00 11/27/17 22:00 Hibiclens For Decolonization - TP 1 applic HS [facility] Administration Duloxetine HCl 60 mg 11/26/17 10:00 11/28/17 09:26 Cymbalta - PO 60 mg DAILY [facility] Administration Fluocinonide 1 applic 11/26/17 10:00 11/28/17 09:30 Lidex 0.05% Cream - TP 1 applic DAILY [facility] Administration Furosemide 20 mg 11/26/17 10:00 11/28/17 09:27 Lasix - PO 20 mg DAILY [facility] Administration Vancomycin HCl 1 gm in 200 mls @ 133.333 mls/hr 11/26/17 14:30 11/28/17 03:37 Vancomycin 1 Gm Premix - IVPB 133.333 mls/hr Q12H [facility] Administration Protocol Isosorbide Dinitrate 10 mg 11/26/17 10:00 11/28/17 09:40 Isordil - PO 10 mg BIDISORDIL [facility] Administration Levetiracetam 250 mg 11/25/17 22:00 11/28/17 09:25 Keppra - PO 250 mg BID [facility] Administration Lisinopril 10 mg 11/28/17 10:00 11/28/17 09:28 Prinivil PO 10 mg DAILY [facility] Administration Lorazepam 1 mg 11/28/17 14:18 Ativan Injection - IM Q8H PRN AGITATION Methylprednisolone Sodium Succinate 40 mg 11/27/17 22:00 11/28/17 09:28 Solu-Medrol - IVPUSH 40 mg BID [facility] Administration Metoprolol Succinate 25 mg 11/25/17 22:00 11/28/17 09:28 Toprol Xl - PO 25 mg BID [facility] Administration Morphine Sulfate 2 mg 11/27/17 15:44 11/28/17 01:40 Morphine Sulfate IVPUSH 2 mg Q6H PRN Administration PAIN LEVEL 7 - 10 Mupirocin 1 applic 11/25/17 22:00 11/28/17 09:26 Bactroban Ointment (For Decolonization) - NS 11/30/17 21:59 1 applic BID [facility] Administration Pantoprazole Sodium 40 mg 11/26/17 10:00 11/28/17 09:28 Protonix - PO 40 mg DAILY [facility] Administration Pregabalin 100 mg 11/25/17 22:00 11/28/17 06:49 Lyrica - PO 100 mg TID [facility] Administration Impression 1. CKD 2. COPD exacerbation 3. AAA 4. hx CVA 5. a-fib 6. HTN 7. insomnia 8. hypoxic resp failure 9. CAD 10. BPH 12. microscopic hematuria 13. hypoxia Plan - cont to monitor renal function - can increase lisinopril to 20 mg - monitor blood pressure - discussed with ICU team - discussed with pts - monitor heart rate - avoid nsaids - will follow
--- NOTE | 2017-11-28 17:00 | PN ---
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 (short form) - Note 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: alert nad still with arm pain Vital Signs Period Temp Pulse Resp BP Sys/Varghese Pulse Ox Last 24 Hr 98 F-98.4 F 62-77 16-20 120-159/67-93 90-99 cor-rrr lungs decreased bs at bses abd soft,nt ext hematome right arm CBC, BMP 11/28/17 05:30 11/28/17 05:30 Microbiology 11/26/17 14:20 Blood - Peripheral Venous Blood Culture - Preliminary NO GROWTH OBTAINED AFTER 48 HOURS, INCUBATION TO CONTINUE FOR 3 DAYS. 11/25/17 17:45 Blood - Peripheral Venous Blood Culture - Final Streptococcus Mitis 11/23/17 21:35 Blood - Peripheral Venous Blood Culture - Preliminary NO GROWTH OBTAINED AFTER 96 HOURS, INCUBATION TO CONTINUE FOR 1 DAYS. 11/23/17 21:35 Blood - Peripheral Venous Blood Culture - Preliminary NO GROWTH OBTAINED AFTER 96 HOURS, INCUBATION TO CONTINUE FOR 1 DAYS. 11/25/17 17:00 Blood - Peripheral Venous Blood Culture - Preliminary NO GROWTH OBTAINED AFTER 48 HOURS, INCUBATION TO CONTINUE FOR 3 DAYS. 11/26/17 16:40 Blood - Peripheral Venous Blood Culture - Preliminary NO GROWTH OBTAINED AFTER 24 HOURS, INCUBATION TO CONTINUE FOR 4 DAYS. 11/26/17 19:00 Nasopharyngeal Swab Respiratory Syncytial Virus Ag - Final 11/26/17 02:40 Urine - Urine Clean Catch Urine Culture - Final NO GROWTH OBTAINED 11/23/17 22:10 Urine - Urine Clean Catch Urine Culture - Final vanco level 34 drawn 3 hours after vancomycin was given! imp/reccd strep mitits bacteremia- switch to rocephin , subooptimal echo new onset seizures left arm hematoma PPM thoracic aneurysm Problem List - Problems (1) Bacteremia Code(s): R78.81 - BACTEREMIA (2) Leukocytosis (leucocytosis) Code(s): D72.829 - ELEVATED WHITE BLOOD CELL COUNT, UNSPECIFIED (3) Hematoma Code(s): T14.8XXA - OTHER INJURY OF UNSPECIFIED BODY REGION, INITIAL ENCOUNTER (4) Seizure Code(s): R56.9 - UNSPECIFIED CONVULSIONS
[2017-11-28] MEDS ORDERED: DEXTROSE 5%-WATER 100 ML IVPB ONE (17:53)
[2017-11-28] MEDS: CEFTRIAXONE 2 GM in DEXTROSE 5%-WATER 100 ML IVPB SCH (18:15)
--- NOTE | 2017-11-28 18:47 | CONS ---
DATE OF CONSULTATION: DATE OF DICTATION: 11/28/2017 PHYSICAL MEDICINE REHABILITATION CONSULTATION REFERRING PHYSICIAN: Ronald Lamas M.D. HISTORY OF PRESENT ILLNESS: The patient is a 77-year-old male with an extensive past medical history including a CVA with residual left sided weakness, chronic hypoxic respiratory failure and COPD on home O2 as well as abdominal aortic aneurysm repair, coronary artery bypass graft who was admitted on November 23, 2017, following a fall. Patient had apparently undergone a nebulizer treatment and was walking to the bathroom when he fell to the ground. He may have had some seizure activity. He had no known history of seizure, but apparently was witnessed moving all 4 limbs. He developed a large amount of swelling in the left forearm and was brought to [facility] where he underwent evaluation including duplex scan of the upper extremity arterial which showed no arterial dissection or aneurysm, superficial hematoma was suspected. Patient also had an ultrasound of both lower extremities which showed no evidence of DVT. X-rays to the forearm and elbow which failed to demonstrate any fracture or subluxation. A CT of the head which showed no acute intracranial pathology or acute vascular territory infarct. There was some old right frontal infarct as well as lacunar infarct on the left. Patient has history left upper extremity wrapped and elevated. His INR on admission was elevated at 1.96 , as he is anticoagulated. He had elevated WBCs on admission of 14.4 which got worse up to 20,000 and currently are at 10.6, hemoglobin dropped from 15.5 on admission to currently 9.8, and platelet count also dropped from 204 to 110. Patient's Coumadin was held, and his current INR as of yesterday was 1.04, and normal. Chemistry showed an elevated BUN of 60 to creatinine 1.3, decreased chloride 108 as of November 26. He did have some elevated BUN of 52 and creatinine 1.8 on admission, and currently still elevated at 69 and 1.4. He has a low albumin of 2.4. TSH was low at 0.10 but normal free T4. Troponins normal. B12 normal at 511. Patient was seen by physical therapy for exercise only. PAST MEDICAL AND SURGICAL HISTORY: Atrial fibrillation for which he is on Xarelto, hypertension, hyperlipidemia, coronary artery disease, COPD, chronic hypoxic respiratory failure on home oxygen, diabetes, coronary artery bypass graft, peripheral arterial disease, abdominal aortic aneurysm repair, chronic kidney disease, CVA with residual left sided weakness and speech. SOCIAL HISTORY: Per the patient, lives in a private house with his . He has no stairs. Premorbidly, he states he was independent, ambulating with a straight cane, and was independent with his activities of daily living. Current function mainly at bedrest. REVIEW OF SYSTEMS: No headache, no lightheadedness, dizziness. No blurry vision, double vision that is new. No nausea, vomiting. He does complain of pain in the left upper extremity, some numbness, tingling in his fingers and the left upper limb which is new in addition to the chronic weakness of the left upper limb, some word finding difficulty. No weakness, numbness, tingling in the right upper extremity, and no focal deficits of the lower extremities. Patient has discoloration throughout the left upper limb and swelling. He is chronically short of breath but currently on oxygen and no more shortness of breath with any exertion. PHYSICAL EXAMINATION: GENERAL: Patient is seen lying in bed. He has his left arm elevated. He is on oxygen. Has difficulty with speech but no problem with following commands. HEENT: Normocephalic and atraumatic. His extraocular muscles appear full. NECK: Supple. EXTREMITIES: Without any calf tenderness in the lower extremity or pitting edema in the lower extremity with the left upper extremity is significantly swollen and discolored with ecchymosis, more in the forearm than proximal aspect, less in the distal hand. 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 He has normal sensation to pinprick in both upper extremities distally, not proximally, not more tested due to swelling in the left upper extremity. Normal sensation in the lower extremities with antigravity hip girdle strength, good knee flexion, dorsiflexion, plantar flexion. No gross arthritic change in the lower extremities, mild arthritic change in the hands. OVERALL IMPRESSION: 1. Deficits to mobility, activities of daily living, multifactorial. 2. Status post fall. 3. Left upper extremity hematoma. 4. Possible seizure activity but no head trauma or acute intracranial pathology. 5. Abdominal aortic aneurysm with postoperative cerebrovascular accident and residual left hemiparesis. 6. Coronary artery bypass graft. 7. Chronic obstructive pulmonary disease on home oxygen. 8. Chronic hypoxic respiratory failure. 9. Anemia, acute blood loss. 10. Chronic kidney disease. 11. Hypertension. 12. Osteoarthritis of the hands. PLANS AND SUGGESTIONS: 1. Continue to elevate left upper extremity. 2. Neural checks for left upper extremity. 3. Monitor hemoglobin and hematocrit. 4. Continue bedside physical therapy for strengthening, isometrics to the lower extremities, when able bed mobility transfers. 5. Pain control. 6. SCDs for DVT prophylaxis until the patient can return to [facility]. 7. Neurologic followup. 8. Skin precaution. 9. Patient will probably require some degree of short-term rehabilitation in the retirement facility but will reevaluate once he is able to get out of bed and ambulate. Thank you for this referral. NOREEN MARTIN M.D. [id number] MTDD
--- NOTE | 2017-11-28 19:14 | PN ---
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, Physician Chief Complaint: left arm swelling and bruising History of Present Illness: 77 yo male PMH of AAA repair 2012, CVA, TAA, afib, DVT, CAD, CHF, COPD, CKD, BPH , PPM, with Btr hypertension, hyperlipidemia, knee replacement and cataract repair who presents to the emergency department via EMS with a seizure like activity prior to arrival. Improved pain in the left arm compared to initial assessment. arm suspended. - Current Medication List Current Medications: Active Medications Acetaminophen (Tylenol -) 650 mg PO Q6H PRN PRN Reason: FEVER Last Admin: 11/27/17 21:49 Dose: 650 mg Albuterol Sulfate (Ventolin 0.083% Nebulizer Soln -) 1 amp NEB Q4H PRN PRN Reason: SHORT OF BREATH/WHEEZING Albuterol/Ipratropium (Duoneb -) 1 amp NEB RQID [facility] Last Admin: 11/28/17 17:05 Dose: 1 amp Atorvastatin Calcium (Lipitor -) 20 mg PO HS [facility] Last Admin: 11/27/17 21:52 Dose: 20 mg Chlorhexidine Gluconate (Hibiclens For Decolonization -) 1 applic TP HS [facility] Last Admin: 11/27/17 22:00 Dose: 1 applic Duloxetine HCl (Cymbalta -) 60 mg PO DAILY [facility] Last Admin: 11/28/17 09:26 Dose: 60 mg Fluocinonide (Lidex 0.05% Cream -) 1 applic TP DAILY [facility] Last Admin: 11/28/17 09:30 Dose: 1 applic Furosemide (Lasix -) 20 mg PO DAILY [facility] Last Admin: 11/28/17 09:27 Dose: 20 mg Ceftriaxone Sodium 2 gm/ (Dextrose) 100 mls @ 200 mls/hr IVPB DAILY [facility]; Protocol Last Admin: 11/28/17 18:15 Dose: 200 mls/hr Isosorbide Dinitrate (Isordil -) 10 mg PO BIDISORDIL [facility] Last Admin: 11/28/17 18:20 Dose: 10 mg Levetiracetam (Keppra -) 250 mg PO BID [facility] Last Admin: 11/28/17 09:25 Dose: 250 mg Lisinopril (Prinivil) 20 mg PO DAILY [facility] Lorazepam (Ativan Injection -) 1 mg IM Q8H PRN PRN Reason: AGITATION Methylprednisolone Sodium Succinate (Solu-Medrol -) 40 mg IVPUSH BID [facility] Last Admin: 11/28/17 09:28 Dose: 40 mg Metoprolol Succinate (Toprol Xl -) 25 mg PO BID [facility] Last Admin: 11/28/17 09:28 Dose: 25 mg Morphine Sulfate (Morphine Sulfate) 2 mg IVPUSH Q6H PRN PRN Reason: PAIN LEVEL 7 - 10 Last Admin: 11/28/17 15:13 Dose: 2 mg Mupirocin (Bactroban Ointment (For Decolonization) -) 1 applic NS BID [facility] Stop: 11/30/17 21:59 Last Admin: 11/28/17 09:26 Dose: 1 applic Pantoprazole Sodium (Protonix -) 40 mg PO DAILY [facility] Last Admin: 11/28/17 09:28 Dose: 40 mg Pregabalin (Lyrica -) 100 mg PO TID [facility] Last Admin: 11/28/17 15:04 Dose: 100 mg - Objective Vital Signs: Vital Signs Temperature 98.4 F 11/28/17 06:00 Pulse Rate 71 11/28/17 08:47 Respiratory Rate 18 11/28/17 08:53 Blood Pressure 159/93 11/28/17 08:47 O2 Sat by Pulse Oximetry (%) 92 L 11/28/17 18:58 Vital Signs Period Temp Pulse Resp BP Sys/Varghese Pulse Ox Last 24 Hr 98 F-98.4 F 62-73 16-18 122-159/67-93 90-99 Intake & Output 11/28/17 11/28/17 11/28/17 07:59 15:59 23:59 Intake Total 250 214 Output Total 500 350 Balance -250 -136 Weight 155 lb 6.814 oz Intake: IVPB 200 214 Oral 50 Output: Urine 500 350 Void 500 350 Other: Voiding Method Urinal Bowel Movement Yes # Bowel Movements 1 Weight Measurement Method Built in [facility] Constitutional: Yes: Well Nourished, No Distress, Mild Distress Eyes: Yes: Conjunctiva Clear, EOM Intact HENT: Yes: Atraumatic, Normocephalic Neck: Yes: Supple, Trachea Midline Cardiovascular: Yes: Regular Rate and Rhythm, S1, S2 Respiratory: Yes: Regular, CTA Bilaterally, On BiPap Gastrointestinal: Yes: Normal Bowel Sounds, Soft. No: Tenderness Genitourinary: No: CVA Tenderness - Left, CVA Tenderness - Right Musculoskeletal: Yes: Joint Stiffness, Joint Swelling Extremities: No: Cool, Cyanosis Edema: Yes Edema: LUE: 1+ Integumentary: Yes: Bruising Wound/Incision: Yes: Open to air Neurological: Yes: Alert, Oriented Psychiatric: Yes: Alert, Oriented Labs: CBC, BMP 11/28/17 05:30 11/28/17 05:30 INR, PTT INR 1.04 (0.83-1.09) 11/27/17 05:30 Problem List - Problems (1) Traumatic hematoma of left upper arm Assessment/Plan: 77 yo RHD male MMP s/p L CTR [address] Charlie Gilman, low index of suspicion for acute compartment syndrome, hematomas have been demonstrated to be superficial. WBC >20 --> 13, radial pulse exam 2+. He is more comfortable today. Edema is resolving in the left arm. appreciate vascular input. Elevation above heart level IV antibiotics per ID Consider holding anticoagulation Correct coagulopathy if possible PT evaluation for Edema management and ROM will follow This patient is critically ill. Time spent reviewing chart, examining patient, talking with providers and/or family and documentation is 35 minutes. Code(s): S40.022A - CONTUSION OF LEFT UPPER ARM, INITIAL ENCOUNTER Qualifiers: Encounter type: initial encounter Qualified Code(s): S40.022A - Contusion of left upper arm, initial encounter (2) Fall Code(s): W19.XXXA - UNSPECIFIED FALL, INITIAL ENCOUNTER Qualifiers: Encounter type: subsequent encounter Qualified Code(s): W19.XXXD - Unspecified fall, subsequent encounter (3) CAD (coronary artery disease) Code(s): I25.10 - ATHSCL HEART DISEASE OF [place] CORONARY ARTERY W/O ANG PCTRS Qualifiers: Coronary Disease-Associated Artery/Lesion type: [place] artery Associated angina: with stable angina (4) COPD (chronic obstructive pulmonary disease) Code(s): J44.9 - CHRONIC OBSTRUCTIVE PULMONARY DISEASE, UNSPECIFIED Qualifiers: COPD type: COPD with acute exacerbation Qualified Code(s): J44.1 - Chronic obstructive pulmonary disease with (acute) exacerbation (5) History of aortic aneurysm repair Code(s): Z98.890 - OTHER SPECIFIED POSTPROCEDURAL STATES; Z86.79 - PERSONAL HISTORY OF OTHER DISEASES OF THE CIRCULATORY SYSTEM (6) History of arterial bypass of lower extremity Code(s): Z95.828 - PRESENCE OF OTHER VASCULAR IMPLANTS AND GRAFTS
[2017-11-28] MEDS: CHLORHEXIDINE GLUCONATE 4% CLEANSER FOR DECOLONIZATION TP SCH (21:26)
[2017-11-28] MEDS: ATORVASTATIN CA 20 MG TABLET (FP) PO SCH (21:26)
[2017-11-29] MEDS: PREGABALIN 100 MG CAPSULE PO SCH ×3 (06:00→22:00)
[2017-11-29] MEDS: ALBUTEROL SO4 2.5/IPRATROPIUM 0.5 INH SOL 3 ML VIAL.NEB. NEB SCH ×4 (07:30→20:46)
[2017-11-29 08:12] LABS: HEMATOCRIT 31.8 % (35.4-49); HEMOGLOBIN 10.2 GM/dL (11.7-16.9); MCH 27.8 pg (25.7-33.7); MCHC 32.2 g/dl (32.0-35.9); MEAN CELL VOLUME 86.4 fl (80-96); PLATELET COUNT 97 K/MM3 (134-434); RBC 3.68 M/mm3 (4.00-5.60); RDW 18.1 % (11.9-15.9); WHITE BLOOD COUNT 7.9 K/mm3 (4.0-10.0)
--- NOTE | 2017-11-29 08:31 | PN ---
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 (short form) - Note 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: alert nad still with arm pain on high flow oxygen Vital Signs Period Temp Pulse Resp BP Sys/Varghese Pulse Ox Last 24 Hr 97.7 F-98.5 F 60-82 11-18 114-162/66-99 90-98 cor-rrr llungs decreased bs at bases abd soft,nt ext hematoma unchanged left arm CBC, BMP 11/29/17 07:30 Microbiology 11/23/17 21:35 Blood - Peripheral Venous Blood Culture - Final NO GROWTH AFTER 5 DAYS INCUBATION 11/23/17 21:35 Blood - Peripheral Venous Blood Culture - Final NO GROWTH AFTER 5 DAYS INCUBATION 11/25/17 17:00 Blood - Peripheral Venous Blood Culture - Preliminary NO GROWTH OBTAINED AFTER 72 HOURS, INCUBATION TO CONTINUE FOR 2 DAYS. 11/26/17 16:40 Blood - Peripheral Venous Blood Culture - Preliminary NO GROWTH OBTAINED AFTER 48 HOURS, INCUBATION TO CONTINUE FOR 3 DAYS. 11/26/17 14:20 Blood - Peripheral Venous Blood Culture - Preliminary NO GROWTH OBTAINED AFTER 48 HOURS, INCUBATION TO CONTINUE FOR 3 DAYS. 11/25/17 17:45 Blood - Peripheral Venous Blood Culture - Final Streptococcus Mitis 11/26/17 19:00 Nasopharyngeal Swab Respiratory Syncytial Virus Ag - Final 11/26/17 02:40 Urine - Urine Clean Catch Urine Culture - Final NO GROWTH OBTAINED 11/23/17 22:10 Urine - Urine Clean Catch Urine Culture - Final Current Medications Acetaminophen (Tylenol -) 650 mg PO Q6H PRN PRN Reason: FEVER Last Admin: 11/27/17 21:49 Dose: 650 mg Albuterol Sulfate (Ventolin 0.083% Nebulizer Soln -) 1 amp NEB Q4H PRN PRN Reason: SHORT OF BREATH/WHEEZING Albuterol/Ipratropium (Duoneb -) 1 amp NEB RQID [facility] Last Admin: 11/29/17 07:30 Dose: 1 amp Atorvastatin Calcium (Lipitor -) 20 mg PO [facility] Last Admin: 11/28/17 21:26 Dose: 20 mg Chlorhexidine Gluconate (Hibiclens For Decolonization -) 1 applic TP [facility] Last Admin: 11/28/17 21:26 Dose: 1 applic Duloxetine HCl (Cymbalta -) 60 mg PO DAILY [facility] Last Admin: 11/28/17 09:26 Dose: 60 mg Fluocinonide (Lidex 0.05% Cream -) 1 applic TP DAILY [facility] Last Admin: 11/28/17 09:30 Dose: 1 applic Furosemide (Lasix -) 20 mg PO DAILY [facility] Last Admin: 11/28/17 09:27 Dose: 20 mg Ceftriaxone Sodium 2 gm/ (Dextrose) 100 mls @ 200 mls/hr IVPB DAILY [facility]; Protocol Last Admin: 11/28/17 18:15 Dose: 200 mls/hr Isosorbide Dinitrate (Isordil -) 10 mg PO BIDISORDIL [facility] Last Admin: 11/28/17 18:20 Dose: 10 mg Levetiracetam (Keppra -) 250 mg PO BID [facility] Last Admin: 11/28/17 21:26 Dose: 250 mg Lisinopril (Prinivil) 20 mg PO DAILY [facility] Lorazepam (Ativan Injection -) 1 mg IM Q8H PRN PRN Reason: AGITATION Methylprednisolone Sodium Succinate (Solu-Medrol -) 40 mg IVPUSH BID [facility] Last Admin: 11/28/17 21:25 Dose: 40 mg Metoprolol Succinate (Toprol Xl -) 25 mg PO BID [facility] Last Admin: 11/28/17 21:27 Dose: 25 mg Morphine Sulfate (Morphine Sulfate) 2 mg IVPUSH Q6H PRN PRN Reason: PAIN LEVEL 7 - 10 Last Admin: 11/28/17 23:24 Dose: 2 mg Mupirocin (Bactroban Ointment (For Decolonization) -) 1 applic NS BID [facility] Stop: 11/30/17 21:59 Last Admin: 11/28/17 21:29 Dose: 1 applic Pantoprazole Sodium (Protonix -) 40 mg PO DAILY [facility] Last Admin: 11/28/17 09:28 Dose: 40 mg Pregabalin (Lyrica -) 100 mg PO TID [facility] Last Admin: 11/29/17 06:00 Dose: 100 mg imp/reccd strep mitis bacteremia- continue rocephin , suboptimal echo, day #4 antibiotics seizures left arm hematoma copd thrombocytopenia- progressive since 11/27 (prior to starting ceftriaxone) d/wl ICU resident Problem List - Problems (1) Bacteremia Code(s): R78.81 - BACTEREMIA (2) Leukocytosis (leucocytosis) Code(s): D72.829 - ELEVATED WHITE BLOOD CELL COUNT, UNSPECIFIED (3) Hematoma Code(s): T14.8XXA - OTHER INJURY OF UNSPECIFIED BODY REGION, INITIAL ENCOUNTER (4) Seizure Code(s): R56.9 - UNSPECIFIED CONVULSIONS
--- NOTE | 2017-11-29 08:44 | PN ---
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, Physician Chief Complaint: Alert in ICU No distrress TELE: A-V paced. WBC down. History of Present Illness: Afebrile - Current Medication List Current Medications: Active Medications Acetaminophen (Tylenol -) 650 mg PO Q6H PRN PRN Reason: FEVER Last Admin: 11/27/17 21:49 Dose: 650 mg Albuterol Sulfate (Ventolin 0.083% Nebulizer Soln -) 1 amp NEB Q4H PRN PRN Reason: SHORT OF BREATH/WHEEZING Albuterol/Ipratropium (Duoneb -) 1 amp NEB RQID [facility] Last Admin: 11/29/17 07:30 Dose: 1 amp Atorvastatin Calcium (Lipitor -) 20 mg PO HS [facility] Last Admin: 11/28/17 21:26 Dose: 20 mg Chlorhexidine Gluconate (Hibiclens For Decolonization -) 1 applic TP HS [facility] Last Admin: 11/28/17 21:26 Dose: 1 applic Duloxetine HCl (Cymbalta -) 60 mg PO DAILY [facility] Last Admin: 11/28/17 09:26 Dose: 60 mg Fluocinonide (Lidex 0.05% Cream -) 1 applic TP DAILY [facility] Last Admin: 11/28/17 09:30 Dose: 1 applic Furosemide (Lasix -) 20 mg PO DAILY [facility] Last Admin: 11/28/17 09:27 Dose: 20 mg Ceftriaxone Sodium 2 gm/ (Dextrose) 100 mls @ 200 mls/hr IVPB DAILY [facility]; Protocol Last Admin: 11/28/17 18:15 Dose: 200 mls/hr Isosorbide Dinitrate (Isordil -) 10 mg PO BIDISORDIL [facility] Last Admin: 11/28/17 18:20 Dose: 10 mg Levetiracetam (Keppra -) 250 mg PO BID [facility] Last Admin: 11/28/17 21:26 Dose: 250 mg Lisinopril (Prinivil) 20 mg PO DAILY [facility] Lorazepam (Ativan Injection -) 1 mg IM Q8H PRN PRN Reason: AGITATION Methylprednisolone Sodium Succinate (Solu-Medrol -) 40 mg IVPUSH BID [facility] Last Admin: 11/28/17 21:25 Dose: 40 mg Metoprolol Succinate (Toprol Xl -) 25 mg PO BID [facility] Last Admin: 11/28/17 21:27 Dose: 25 mg Morphine Sulfate (Morphine Sulfate) 2 mg IVPUSH Q6H PRN PRN Reason: PAIN LEVEL 7 - 10 Last Admin: 11/28/17 23:24 Dose: 2 mg Mupirocin (Bactroban Ointment (For Decolonization) -) 1 applic NS BID [facility] Stop: 11/30/17 21:59 Last Admin: 11/28/17 21:29 Dose: 1 applic Pantoprazole Sodium (Protonix -) 40 mg PO DAILY [facility] Last Admin: 11/28/17 09:28 Dose: 40 mg Pregabalin (Lyrica -) 100 mg PO TID [facility] Last Admin: 11/29/17 06:00 Dose: 100 mg - Objective Vital Signs: Vital Signs Temperature 97.7 F 11/29/17 06:00 Pulse Rate 60 11/29/17 08:02 Respiratory Rate 18 11/29/17 06:00 Blood Pressure 162/92 11/29/17 06:00 O2 Sat by Pulse Oximetry (%) 95 11/29/17 08:02 Constitutional: Yes: Calm Cardiovascular: Yes: Regular Rate and Rhythm (no murmurs.) Respiratory: Yes: Other (Decreased breath sounds bilaterally, no rales or active wheezing.) Gastrointestinal: Yes: Other (soft, NT) Edema: No Neurological: Yes: Alert ...Motor Strength: WNL Labs: CBC, BMP 11/29/17 07:30 INR, PTT INR 1.04 (0.83-1.09) 11/27/17 05:30 Microbiology 11/25/17 17:45 Blood - Peripheral Venous Blood Culture - Final Streptococcus Mitis 11/23/17 21:35 Blood - Peripheral Venous Blood Culture - Final NO GROWTH AFTER 5 DAYS INCUBATION 11/23/17 21:35 Blood - Peripheral Venous Blood Culture - Final NO GROWTH AFTER 5 DAYS INCUBATION 11/26/17 16:40 Blood - Peripheral Venous Blood Culture - Preliminary NO GROWTH OBTAINED AFTER 48 HOURS, INCUBATION TO CONTINUE FOR 3 DAYS. 11/26/17 16:40 Blood - Peripheral Venous Blood Culture - Preliminary NO GROWTH OBTAINED AFTER 24 HOURS, INCUBATION TO CONTINUE FOR 4 DAYS. 11/26/17 14:20 Blood - Peripheral Venous Blood Culture - Preliminary NO GROWTH OBTAINED AFTER 48 HOURS, INCUBATION TO CONTINUE FOR 3 DAYS. 11/26/17 14:20 Blood - Peripheral Venous Blood Culture - Preliminary NO GROWTH OBTAINED AFTER 24 HOURS, INCUBATION TO CONTINUE FOR 4 DAYS. 11/25/17 17:00 Blood - Peripheral Venous Blood Culture - Preliminary NO GROWTH OBTAINED AFTER 72 HOURS, INCUBATION TO CONTINUE FOR 2 DAYS. Laboratory Tests 11/28/17 11/28/17 11/29/17 05:30 05:30 07:30 WBC 10.6 H 7.9 Hgb 9.8 L Hct 30.5 L 31.8 L Plt Count 110 L 97 L Sodium 144 Potassium 4.8 BUN 69 H Creatinine 1.4 H AST 17 D ALT 39 11/29/17 07:30 WBC Hgb Hct Plt Count Sodium Pending Potassium Pending BUN Pending Creatinine Pending AST ALT - ....Imaging EKG: Image Reviewed Assessment/Plan IMP: ASHD PAD ICM s/p [employer]-P Multiple aneurysms AF Traumatic hematoma, upper extremity Thrombocytopenia Fall COPD, acute exacerbation Gram + bacteremia: 1 bottle REC: 1. Holding AC for now in setting of LUE hematoma and progressive thrombocytopenia. Heme Evaluation. 2. Steroid taper 3. Abx as per ID , serial cultures have been negative. WBC is down. Duration of abx as per ID. Patient would be at elevated risk for GOPI due to his hypoxia and respiratory status. 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 He is not a surgical candidate. 4. Cont Toprol for NSVT: keep K+>4 and Mg2+>2.
[2017-11-29 09:02] LABS: ALBUMIN 2.5 g/dl (3.4-5.0); ANION GAP 6 MMOL/L (8-16); BILIRUBIN,TOTAL 0.5 mg/dL (0.2-1.0); BLOOD UREA NITROGEN 61 mg/dL (7-18); CALCIUM 8.2 mg/dL (8.5-10.1); CHLORIDE 106 mmol/L (98-107); CO2 28 mmol/L (21-32); CREATININE 1.3 mg/dL (0.7-1.3); GLUCOSE,RANDOM 100 mg/dL (74-106); MAGNESIUM 2.8 mg/dL (1.8-2.4); PHOSPHOROUS 4.9 mg/dL (2.5-4.9); POTASSIUM 4.9 mmol/L (3.5-5.1); SGOT/AST 29 U/L (15-37); SGPT/ALT 60 U/L (12-78); SODIUM 140 mmol/L (136-145)
[2017-11-29 09:03] LABS: ALK PHOS 42 U/L (45-117); TOT PROT 5.5 g/dl (6.4-8.2)
--- NOTE | 2017-11-29 09:37 | PN ---
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, Physician - Current Medication List Current Medications: Active Medications Acetaminophen (Tylenol -) 650 mg PO Q6H PRN PRN Reason: FEVER Last Admin: 11/27/17 21:49 Dose: 650 mg Albuterol Sulfate (Ventolin 0.083% Nebulizer Soln -) 1 amp NEB Q4H PRN PRN Reason: SHORT OF BREATH/WHEEZING Albuterol/Ipratropium (Duoneb -) 1 amp NEB RQID [facility] Last Admin: 11/29/17 07:30 Dose: 1 amp Atorvastatin Calcium (Lipitor -) 20 mg PO HS [facility] Last Admin: 11/28/17 21:26 Dose: 20 mg Chlorhexidine Gluconate (Hibiclens For Decolonization -) 1 applic TP HS [facility] Last Admin: 11/28/17 21:26 Dose: 1 applic Duloxetine HCl (Cymbalta -) 60 mg PO DAILY [facility] Last Admin: 11/28/17 09:26 Dose: 60 mg Fluocinonide (Lidex 0.05% Cream -) 1 applic TP DAILY [facility] Last Admin: 11/28/17 09:30 Dose: 1 applic Furosemide (Lasix -) 20 mg PO DAILY [facility] Last Admin: 11/28/17 09:27 Dose: 20 mg Ceftriaxone Sodium 2 gm/ (Dextrose) 100 mls @ 200 mls/hr IVPB DAILY [facility]; Protocol Last Admin: 11/28/17 18:15 Dose: 200 mls/hr Isosorbide Dinitrate (Isordil -) 10 mg PO BIDISORDIL [facility] Last Admin: 11/28/17 18:20 Dose: 10 mg Levetiracetam (Keppra -) 250 mg PO BID [facility] Last Admin: 11/28/17 21:26 Dose: 250 mg Lisinopril (Prinivil) 20 mg PO DAILY [facility] Lorazepam (Ativan Injection -) 1 mg IM Q8H PRN PRN Reason: AGITATION Methylprednisolone Sodium Succinate (Solu-Medrol -) 40 mg IVPUSH BID [facility] Last Admin: 11/28/17 21:25 Dose: 40 mg Metoprolol Succinate (Toprol Xl -) 25 mg PO BID [facility] Last Admin: 11/28/17 21:27 Dose: 25 mg Morphine Sulfate (Morphine Sulfate) 4 mg IVPUSH Q6H PRN PRN Reason: PAIN LEVEL 7 - 10 Mupirocin (Bactroban Ointment (For Decolonization) -) 1 applic NS BID [facility] Stop: 11/30/17 21:59 Last Admin: 11/28/17 21:29 Dose: 1 applic Pantoprazole Sodium (Protonix -) 40 mg PO DAILY [facility] Last Admin: 11/28/17 09:28 Dose: 40 mg Pregabalin (Lyrica -) 100 mg PO TID [facility] Last Admin: 11/29/17 06:00 Dose: 100 mg - Objective Vital Signs: Vital Signs Temperature 97.7 F 11/29/17 06:00 Pulse Rate 60 11/29/17 09:14 Respiratory Rate 18 11/29/17 09:14 Blood Pressure 156/94 11/29/17 09:14 O2 Sat by Pulse Oximetry (%) 95 11/29/17 08:02 Cardiovascular: Yes: S1, S2 Respiratory: Yes: On BiPap Gastrointestinal: Yes: Normal Bowel Sounds, Soft Labs: CBC, BMP 11/29/17 07:30 11/29/17 07:30 INR, PTT INR 1.04 (0.83-1.09) 11/27/17 05:30 Problem List - Problems (1) Fall Assessment/Plan: -Physical therapy -CT head negative -Neurology consult -Safety precautions Code(s): W19.XXXA - UNSPECIFIED FALL, INITIAL ENCOUNTER Qualifiers: Encounter type: subsequent encounter Qualified Code(s): W19.XXXD - Unspecified fall, subsequent encounter (2) Seizure Assessment/Plan: per neuro on kepra Code(s): R56.9 - UNSPECIFIED CONVULSIONS (3) Traumatic hematoma of left upper arm Assessment/Plan: vascular on case management coordinator Code(s): S40.022A - CONTUSION OF LEFT UPPER ARM, INITIAL ENCOUNTER Qualifiers: Encounter type: initial encounter Qualified Code(s): S40.022A - Contusion of left upper arm, initial encounter (4) CAD (coronary artery disease) Assessment/Plan: -Statin -BB -On Isosorbide -Cardiac cath in the past with EF >40% -has ICM with permanent Cardiac resynchronization therapy defibrillator ([employer]D) as 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 in the past Code(s): I25.10 - ATHSCL HEART DISEASE OF [place] CORONARY ARTERY W/O ANG PCTRS Qualifiers: Coronary Disease-Associated Artery/Lesion type: [place] artery Associated angina: with stable angina (5) COPD (chronic obstructive pulmonary disease) Assessment/Plan: -On non re-breather now -CXR unremarkable -Pulmonary consult -Bronchodilators -Prednisone 10 mg po BID at home, would continue Code(s): J44.9 - CHRONIC OBSTRUCTIVE PULMONARY DISEASE, UNSPECIFIED Qualifiers: COPD type: COPD with acute exacerbation Qualified Code(s): J44.1 - Chronic obstructive pulmonary disease with (acute) exacerbation (6) Paroxysmal atrial fibrillation Assessment/Plan: -On eliquis at home--on hold -Hold for another 24 hours due to LUE hematoma -Monitor H/H for any drop suggesting blood loss Code(s): I48.0 - PAROXYSMAL ATRIAL FIBRILLATION (7) Presence of cardiac pacemaker Code(s): Z95.0 - PRESENCE OF CARDIAC PACEMAKER (8) Acute kidney injury Assessment/Plan: -UA/UC pending Microbiology 11/25/17 17:45 Blood Culture - Preliminary Blood - Peripheral Venous Pending Organism 11/23/17 21:35 Blood Culture - Preliminary Blood - Peripheral Venous NO GROWTH OBTAINED AFTER 72 HOURS, INCUBATION TO CONTINUE FOR 2 DAYS. 11/23/17 21:35 Blood Culture - Preliminary Blood - Peripheral Venous NO GROWTH OBTAINED AFTER 72 HOURS, INCUBATION TO CONTINUE FOR 2 DAYS. 11/25/17 17:00 Blood Culture - Preliminary Blood - Peripheral Venous NO GROWTH OBTAINED AFTER 24 HOURS, INCUBATION TO CONTINUE FOR 4 DAYS. 11/23/17 22:10 Urine Culture - Final Urine - Urine Clean Catch -Nephrology consult -monitor Cr Code(s): N17.9 - ACUTE KIDNEY FAILURE, UNSPECIFIED
--- NOTE | 2017-11-29 09:44 | PN ---
Teaching Attending Note Name of Resident: Erna Newman ATTENDING PHYSICIAN STATEMENT I saw and evaluated the patient. I reviewed the resident's note and discussed the case with the resident. I agree with the resident's findings and plan as documented. SUBJECTIVE: Pt seen and examined in the ICU. Tolerating HFOT better today. Saturating low 90s on 60% Fio2, flow rate 50L/min. Still with significant RUE pain. OBJECTIVE: Vital Signs Period Temp Pulse Resp BP Sys/Varghese Pulse Ox Last 24 Hr 97.7 F-98.5 F 60-82 11-18 114-162/66-99 90-98 Intake & Output 11/26/17 11/27/17 11/28/17 11/29/17 23:59 23:59 23:59 23:59 Intake Total 1400 910 464 100 Output Total 1270 860 850 800 Balance 130 50 -386 -700 Weight 72.03 kg 69.853 kg 70.5 kg 71.4 kg Gen: NAD at rest Heart: RRR Lung: distant breath sounds Abd: soft, nontender Ext: bilateral UE hematomas CBC, BMP 11/29/17 07:30 11/29/17 07:30 Active Medications Acetaminophen (Tylenol -) 650 mg PO Q6H PRN PRN Reason: FEVER Last Admin: 11/27/17 21:49 Dose: 650 mg Albuterol Sulfate (Ventolin 0.083% Nebulizer Soln -) 1 amp NEB Q4H PRN PRN Reason: SHORT OF BREATH/WHEEZING Albuterol/Ipratropium (Duoneb -) 1 amp NEB RQID [facility] Last Admin: 11/29/17 07:30 Dose: 1 amp Atorvastatin Calcium (Lipitor -) 20 mg PO HS [facility] Last Admin: 11/28/17 21:26 Dose: 20 mg Chlorhexidine Gluconate (Hibiclens For Decolonization -) 1 applic TP HS [facility] Last Admin: 11/28/17 21:26 Dose: 1 applic Duloxetine HCl (Cymbalta -) 60 mg PO DAILY [facility] Last Admin: 11/28/17 09:26 Dose: 60 mg Fluocinonide (Lidex 0.05% Cream -) 1 applic TP DAILY [facility] Last Admin: 11/28/17 09:30 Dose: 1 applic Furosemide (Lasix -) 20 mg PO DAILY [facility] Last Admin: 11/28/17 09:27 Dose: 20 mg Ceftriaxone Sodium 2 gm/ (Dextrose) 100 mls @ 200 mls/hr IVPB DAILY [facility]; Protocol Last Admin: 11/28/17 18:15 Dose: 200 mls/hr Isosorbide Dinitrate (Isordil -) 10 mg PO BIDISORDIL [facility] Last Admin: 11/28/17 18:20 Dose: 10 mg Levetiracetam (Keppra -) 250 mg PO BID [facility] Last Admin: 11/28/17 21:26 Dose: 250 mg Lisinopril (Prinivil) 20 mg PO DAILY [facility] Lorazepam (Ativan Injection -) 1 mg IM Q8H PRN PRN Reason: AGITATION Methylprednisolone Sodium Succinate (Solu-Medrol -) 40 mg IVPUSH BID [facility] Last Admin: 11/28/17 21:25 Dose: 40 mg Metoprolol Succinate (Toprol Xl -) 25 mg PO BID [facility] Last Admin: 11/28/17 21:27 Dose: 25 mg Morphine Sulfate (Morphine Sulfate) 4 mg IVPUSH Q6H PRN PRN Reason: PAIN LEVEL 7 - 10 Mupirocin (Bactroban Ointment (For Decolonization) -) 1 applic NS BID [facility] Stop: 11/30/17 21:59 Last Admin: 11/28/17 21:29 Dose: 1 applic Pantoprazole Sodium (Protonix -) 40 mg PO DAILY [facility] Last Admin: 11/28/17 09:28 Dose: 40 mg Pregabalin (Lyrica -) 100 mg PO TID [facility] Last Admin: 11/29/17 06:00 Dose: 100 mg ASSESSMENT AND PLAN: Acute on Chronic Hypoxic Respiratory Failure Left Arm Hematoma Seizures Acute COPD Exacerbation LV Diastolic Dysfunction Atrial Fibrillation Acute on Chronic Renal Failure h/o CVA CAD HTN Hyperlipidemia - monitor hematoma - on empiric antibiotics - continue medrol - inhaled bronchodilators - O2 to keep Spo2 >90% - continue high flow O2 - continue home lasix - monitor urine output, creatinine - rate control - holding anticoagulation - continue ICU monitoring critical care time spent in reviewing chart, evaluating patient and formulating plan 35 min
[2017-11-29] MEDS ORDERED: DEXTROSE 5%-WATER 100 ML IVPB ONE (09:59)
[2017-11-29] MEDS ORDERED: PT OWN MED DRAWER 7, Y5N ONE ×2 (09:59→10:19)
[2017-11-29] MEDS: metoPROLOL SUCCINATE 25 MG TAB.SR.24H (FP) PO SCH ×2 (10:12→22:00)
[2017-11-29] MEDS: ISOSORBIDE DINITRATE 10 MG TABLET (FP) PO SCH ×2 (10:12→17:32)
[2017-11-29] MEDS: DULoxetine HCL 30 MG CAPSULE.DR (FP) PO SCH (10:12)
[2017-11-29] MEDS: MUPIROCIN 2% TOPICAL OINTMENT FOR DECOLONIZATION NS SCH (10:13)
[2017-11-29] MEDS: CEFTRIAXONE 2 GM in DEXTROSE 5%-WATER 100 ML IVPB SCH (10:14)
[2017-11-29] MEDS: levETIRAcetam 500 MG TABLET (FP) PO SCH ×2 (10:54→22:00)
[2017-11-29] MEDS: FUROSEMIDE 20 MG TABLET (FP) PO SCH (10:54)
[2017-11-29] MEDS: PANTOPRAZOLE 40 MG TABLET (FP) PO SCH (10:54)
[2017-11-29] MEDS: methylPREDNISolone NA SUCC 40 MG/1 ML VIAL IVPUSH SCH ×2 (10:55→22:00)
--- NOTE | 2017-11-29 12:18 | PN ---
Physical Exam: SUBJECTIVE: Patient is a 77 y/o male with a history of afib, HTN, HLD, CAD, COPD, DM, PAD, AAA who is here for acute hypoxic respiratory failure 2/2 to COPD exacerbation. Patient has no complaints overnight. He is still on bipap and tolerating it well. OBJECTIVE: Vital Signs Temperature 98.6 F 11/29/17 10:00 Pulse Rate 66 11/29/17 11:56 Respiratory Rate 18 11/29/17 11:56 Blood Pressure 151/84 11/29/17 11:56 O2 Sat by Pulse Oximetry (%) 93 L 11/29/17 11:20 GENERAL: Awake and alert EYES: Pupils equal, round and reactive to light, extraocular movements intact EARS, NOSE, THROAT: Ears normal, nares patent, oropharynx clear without exudates. Moist mucous membranes. LUNGS: lungs clear to auscultation, lower base expiratory wheezes, no accessory muscle use HEART: Regular rate and rhythm, ABDOMEN: Soft, nontender, not distended, LOWER EXTREMITIES: 2+ dp pulses, warm, well-perfused. No calf tenderness. No peripheral edema. SKIN: large hematoma on LUE from wrist and extending up midway of arm, radial pulse intact, ROM intact, hand case planner intact CBCD WBC 7.9 K/mm3 (4.0-10.0) 11/29/17 07:30 RBC 3.68 M/mm3 (4.00-5.60) L 11/29/17 07:30 Hgb 10.2 GM/dL (11.7-16.9) L 11/29/17 07:30 Hct 31.8 % (35.4-49) L 11/29/17 07:30 MCV 86.4 fl (80-96) 11/29/17 07:30 MCHC 32.2 g/dl (32.0-35.9) 11/29/17 07:30 RDW 18.1 % (11.9-15.9) H 11/29/17 07:30 Plt Count 97 K/MM3 (134-434) L 11/29/17 07:30 MPV 10.0 fl (7.5-11.1) 11/29/17 07:30 CMP Sodium 140 mmol/L (136-145) 11/29/17 07:30 Potassium 4.9 mmol/L (3.5-5.1) 11/29/17 07:30 Chloride 106 mmol/L (98-107) 11/29/17 07:30 Carbon Dioxide 28 mmol/L (21-32) 11/29/17 07:30 Anion Gap 6 MMOL/L (8-16) L 11/29/17 07:30 BUN 61 mg/dL (7-18) H 11/29/17 07:30 Creatinine 1.3 mg/dL (0.7-1.3) 11/29/17 07:30 Creat Clearance w eGFR 53.25 (>60) 11/29/17 07:30 Calcium 8.2 mg/dL (8.5-10.1) L 11/29/17 07:30 Total Bilirubin 0.5 mg/dL (0.2-1.0) 11/29/17 07:30 AST 29 U/L (15-37) D 11/29/17 07:30 ALT 60 U/L (12-78) D 11/29/17 07:30 Alkaline Phosphatase 42 U/L (45-117) L 11/29/17 07:30 Total Protein 5.5 g/dl (6.4-8.2) L 11/29/17 07:30 Albumin 2.5 g/dl (3.4-5.0) L 11/29/17 07:30 Active Medications Acetaminophen (Tylenol -) 650 mg PO Q6H PRN PRN Reason: FEVER Last Admin: 11/27/17 21:49 Dose: 650 mg Albuterol Sulfate (Ventolin 0.083% Nebulizer Soln -) 1 amp NEB Q4H PRN PRN Reason: SHORT OF BREATH/WHEEZING Albuterol/Ipratropium (Duoneb -) 1 amp NEB RQID [facility] Last Admin: 11/29/17 11:21 Dose: 1 amp Atorvastatin Calcium (Lipitor -) 20 mg PO [facility] Last Admin: 11/28/17 21:26 Dose: 20 mg Chlorhexidine Gluconate (Hibiclens For Decolonization -) 1 applic TP [facility] Last Admin: 11/28/17 21:26 Dose: 1 applic Duloxetine HCl (Cymbalta -) 60 mg PO DAILY [facility] Last Admin: 11/29/17 10:12 Dose: 60 mg Fluocinonide (Lidex 0.05% Cream -) 1 applic TP DAILY [facility] Last Admin: 11/28/17 09:30 Dose: 1 applic Furosemide (Lasix -) 20 mg PO DAILY [facility] Last Admin: 11/29/17 10:54 Dose: 20 mg Ceftriaxone Sodium 2 gm/ (Dextrose) 100 mls @ 200 mls/hr IVPB DAILY [facility]; Protocol Last Admin: 11/29/17 10:14 Dose: 200 mls/hr Isosorbide Dinitrate (Isordil -) 10 mg PO BIDISORDIL [facility] Last Admin: 11/29/17 10:12 Dose: 10 mg Levetiracetam (Keppra -) 250 mg PO BID [facility] Last Admin: 11/29/17 10:54 Dose: 250 mg Lisinopril (Prinivil) 20 mg PO DAILY [facility] Last Admin: 11/29/17 10:12 Dose: 20 mg Lorazepam (Ativan Injection -) 1 mg IM Q8H PRN PRN Reason: AGITATION Methylprednisolone Sodium Succinate (Solu-Medrol -) 40 mg IVPUSH BID [facility] Last Admin: 11/29/17 10:55 Dose: 40 mg Metoprolol Succinate (Toprol Xl -) 25 mg PO BID [facility] Last Admin: 11/29/17 10:12 Dose: 25 mg Morphine Sulfate (Morphine Sulfate) 4 mg IVPUSH Q6H PRN PRN Reason: PAIN LEVEL 7 - 10 Mupirocin (Bactroban Ointment (For Decolonization) -) 1 applic NS BID [facility] Stop: 11/30/17 21:59 Last Admin: 11/29/17 10:13 Dose: 1 applic Pantoprazole Sodium (Protonix -) 40 mg PO DAILY [facility] Last Admin: 11/29/17 10:54 Dose: 40 mg Pregabalin (Lyrica -) 100 mg PO TID [facility] Last Admin: 11/29/17 06:00 Dose: 100 mg ASSESSMENT/PLAN: Patient is a 77 y/o male with a history of afib, HTN, HLD, CAD, COPD, DM, PAD, AAA who is here for acute hypoxic respiratory failure 2/2 to COPD exacerbation. Neuro Seizure like actvity/ vs fall - patient A & O x1 - Neurology Dr. Melo: may be partial seizure - Keppra 250 mg po BID - head CT: no acute intracranial hemorrhage or acute vascular territory infarction - EEG when possible - consulted Dr. Zamudio: Continue with Duloxatine 60mg po od, Ativan 1mg IM Q 8hrs Prn for aggressive behaviour Cardio afib/CAD/HTN - anticoagulation held with patients large hematoma, per Dr. Hines - diltiazem 120 mg po - aspirin 81 mg po daily - Isosorbide dinitrate 10 mg po - lipitor 20 mg po hs - metoprolol 25 mg po BID - currently rate controlled and stable - privinil restarted at 10 mg daily - echo inadequate study Pulm acute on chronic hypoxic respiratory failure 2/2 to COPD exacerbation - CXR: no sign of acute process - patient on oxygen at home - patient on high flow and tolerating well, continue to titrate down - keep oxygen saturation below 95% as patient is a chronic retainer COPD - Methylprednisolone 40 mg BID - duonebs QID - albuterol q4h Renal - furosemide 20 mg po daily - monitor I's & O's MSK Hematoma of LUE - UE doppler: no evidence or arterial dissection or aneyursm , superficial hematomas in LUE - history of AAA repair at [facility] - per vascular Dr. Hendricks and surgery Dr. Palumbo, no evidence of compartment syndrome - hold all anticoagulation as to not worsen hematoma - monitor hemoglobin dropping slightly - continue PT for ROM and to help edema - keep arm elevated above heart Infectious disease - bcx: Streptococcus Mitis - Ceftriaxone ( day 2) - treat for two weeks duration per Dr. Demar VALADEZ ppx - protonix 40 mg po daily BPH - tamsulosin .4 mg Endocrine DM - Lyrica 100 mg po TID - A1 C: 6.0 - TSH .12, Free T4:1 DVT ppx - SCD's depression - cymbalta 60 mg po daily FEN - diabetic/low sodium diet Dispo:monitor oxygenation Visit type - Emergency Visit Emergency Visit: No - New Patient This patient is new to me today: No - Critical Care Critical Care patient: Yes Total Critical Care Time (in minutes): 40 Critical Care Statement: The care of this patient involved high complexity decision making to prevent further life threatening deterioration of the patient 's condition and/or to evaluate & treat vital organ system(s) failure or risk of failure.
--- NOTE | 2017-11-29 13:21 | PN ---
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, Physician Chief Complaint: left arm swelling and bruising History of Present Illness: 77 yo male PMH of AAA repair 2012, CVA, TAA, afib, DVT, CAD, CHF, COPD, CKD, BPH , PPM, with Btr hypertension, hyperlipidemia, knee replacement and cataract repair who presents to the emergency department via EMS with a seizure like activity prior to arrival. Improved pain in the left arm compared to initial assessment. arm suspended. - Current Medication List Current Medications: Active Medications Acetaminophen (Tylenol -) 650 mg PO Q6H PRN PRN Reason: FEVER Last Admin: 11/27/17 21:49 Dose: 650 mg Albuterol Sulfate (Ventolin 0.083% Nebulizer Soln -) 1 amp NEB Q4H PRN PRN Reason: SHORT OF BREATH/WHEEZING Albuterol/Ipratropium (Duoneb -) 1 amp NEB RQID [facility] Last Admin: 11/29/17 11:21 Dose: 1 amp Atorvastatin Calcium (Lipitor -) 20 mg PO HS [facility] Last Admin: 11/28/17 21:26 Dose: 20 mg Chlorhexidine Gluconate (Hibiclens For Decolonization -) 1 applic TP HS [facility] Last Admin: 11/28/17 21:26 Dose: 1 applic Duloxetine HCl (Cymbalta -) 60 mg PO DAILY [facility] Last Admin: 11/29/17 10:12 Dose: 60 mg Fluocinonide (Lidex 0.05% Cream -) 1 applic TP DAILY [facility] Last Admin: 11/28/17 09:30 Dose: 1 applic Furosemide (Lasix -) 20 mg PO DAILY [facility] Last Admin: 11/29/17 10:54 Dose: 20 mg Ceftriaxone Sodium 2 gm/ (Dextrose) 100 mls @ 200 mls/hr IVPB DAILY [facility]; Protocol Last Admin: 11/29/17 10:14 Dose: 200 mls/hr Isosorbide Dinitrate (Isordil -) 10 mg PO BIDISORDIL [facility] Last Admin: 11/29/17 10:12 Dose: 10 mg Levetiracetam (Keppra -) 250 mg PO BID [facility] Last Admin: 11/29/17 10:54 Dose: 250 mg Lisinopril (Prinivil) 20 mg PO DAILY [facility] Last Admin: 11/29/17 10:12 Dose: 20 mg Lorazepam (Ativan Injection -) 1 mg IM Q8H PRN PRN Reason: AGITATION Methylprednisolone Sodium Succinate (Solu-Medrol -) 40 mg IVPUSH BID [facility] Last Admin: 11/29/17 10:55 Dose: 40 mg Metoprolol Succinate (Toprol Xl -) 25 mg PO BID [facility] Last Admin: 11/29/17 10:12 Dose: 25 mg Morphine Sulfate (Morphine Sulfate) 4 mg IVPUSH Q6H PRN PRN Reason: PAIN LEVEL 7 - 10 Mupirocin (Bactroban Ointment (For Decolonization) -) 1 applic NS BID [facility] Stop: 11/30/17 21:59 Last Admin: 11/29/17 10:13 Dose: 1 applic Pantoprazole Sodium (Protonix -) 40 mg PO DAILY [facility] Last Admin: 11/29/17 10:54 Dose: 40 mg Pregabalin (Lyrica -) 100 mg PO TID [facility] Last Admin: 11/29/17 06:00 Dose: 100 mg - Objective Vital Signs: Vital Signs Temperature 98.6 F 11/29/17 10:00 Pulse Rate 60 11/29/17 13:01 Respiratory Rate 18 11/29/17 13:01 Blood Pressure 155/97 11/29/17 13:01 O2 Sat by Pulse Oximetry (%) 93 L 11/29/17 11:20 Vital Signs Period Temp Pulse Resp BP Sys/Varghese Pulse Ox Last 24 Hr 97.7 F-98.6 F 60-82 11-18 114-162/66-99 92-100 Intake & Output 11/28/17 11/29/17 11/29/17 23:59 07:59 15:59 Intake Total 100 Output Total 800 Balance -700 Weight 157 lb 6.561 oz Intake: Oral 100 Output: Urine 800 Void 800 Other: Voiding Method Urinal Weight Measurement Method Built in [facility] Constitutional: Yes: Well Nourished, No Distress, Mild Distress, Moderate Distress Eyes: Yes: Conjunctiva Clear, EOM Intact HENT: Yes: Atraumatic, Normocephalic Neck: Yes: Supple, Trachea Midline Cardiovascular: Yes: Regular Rate and Rhythm, S1, S2 Respiratory: Yes: Regular, CTA Bilaterally, On Nasal O2 Gastrointestinal: Yes: Normal Bowel Sounds, Soft. No: Tenderness, Tenderness, Epigastrium ...Rectal Exam: Yes: Deferred Genitourinary: No: CVA Tenderness - Left, CVA Tenderness - Right Musculoskeletal: Yes: Joint Stiffness, Joint Swelling Extremities: Yes: Cool, Cyanosis Edema: Yes Edema: LUE: 1+, LLE: 2+, RLE: 2+ Peripheral Pulses WNL: Yes Peripheral Pulses: Left Radial: 2+ Integumentary: Yes: Bruising Neurological: Yes: Alert, Oriented, Confusion Psychiatric: Yes: Alert, Oriented Labs: CBC, BMP 11/29/17 07:30 11/29/17 07:30 INR, PTT INR 1.04 (0.83-1.09) 11/27/17 05:30 Problem List - Problems (1) Traumatic hematoma of left upper arm Assessment/Plan: 77 yo RHD male MMP s/p L CTR [address] Charlie Gilman, low index of suspicion for acute compartment syndrome, hematomas have been demonstrated to be superficial. WBC >20 --> 13, radial pulse exam 2+. He is more comfortable today. Edema is resolving in the left arm. appreciate vascular input. Elevation above heart level IV antibiotics per ID Consider holding anticoagulation Correct coagulopathy if possible PT evaluation for Edema management and ROM will follow This patient is critically ill. Time spent reviewing chart, examining patient, talking with providers and/or family and documentation is 35 minutes. Code(s): S40.022A - CONTUSION OF LEFT UPPER ARM, INITIAL ENCOUNTER Qualifiers: Encounter type: initial encounter Qualified Code(s): S40.022A - Contusion of left upper arm, initial encounter (2) Fall Code(s): W19.XXXA - UNSPECIFIED FALL, INITIAL ENCOUNTER Qualifiers: Encounter type: subsequent encounter Qualified Code(s): W19.XXXD - Unspecified fall, subsequent encounter (3) CAD (coronary artery disease) Code(s): I25.10 - ATHSCL HEART DISEASE OF [place] CORONARY ARTERY W/O ANG PCTRS Qualifiers: Coronary Disease-Associated Artery/Lesion type: [place] artery Associated angina: with stable angina (4) COPD (chronic obstructive pulmonary disease) Code(s): J44.9 - CHRONIC OBSTRUCTIVE PULMONARY DISEASE, UNSPECIFIED Qualifiers: COPD type: COPD with acute exacerbation Qualified Code(s): J44.1 - Chronic obstructive pulmonary disease with (acute) exacerbation (5) History of aortic aneurysm repair Code(s): Z98.890 - OTHER SPECIFIED POSTPROCEDURAL STATES; Z86.79 - PERSONAL HISTORY OF OTHER DISEASES OF THE CIRCULATORY SYSTEM (6) History of arterial bypass of lower extremity Code(s): Z95.828 - PRESENCE OF OTHER VASCULAR IMPLANTS AND GRAFTS
[2017-11-29] MEDS: FLUOCINONIDE 0.05% CREAM (15 GM TUBE) TP SCH (14:36)
--- NOTE | 2017-11-29 16:21 | PN ---
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, Physician History of Present Illness: Pt seen and examined at bedside. He is awake and appears comfortable. He is on high flow oxygen. - Current Medication List Current Medications: Active Medications Acetaminophen (Tylenol -) 650 mg PO Q6H PRN PRN Reason: FEVER Last Admin: 11/27/17 21:49 Dose: 650 mg Albuterol Sulfate (Ventolin 0.083% Nebulizer Soln -) 1 amp NEB Q4H PRN PRN Reason: SHORT OF BREATH/WHEEZING Albuterol/Ipratropium (Duoneb -) 1 amp NEB RQID [facility] Last Admin: 11/29/17 15:28 Dose: 1 amp Atorvastatin Calcium (Lipitor -) 20 mg PO HS [facility] Last Admin: 11/28/17 21:26 Dose: 20 mg Chlorhexidine Gluconate (Hibiclens For Decolonization -) 1 applic TP HS [facility] Last Admin: 11/28/17 21:26 Dose: 1 applic Duloxetine HCl (Cymbalta -) 60 mg PO DAILY [facility] Last Admin: 11/29/17 10:12 Dose: 60 mg Fluocinonide (Lidex 0.05% Cream -) 1 applic TP DAILY [facility] Last Admin: 11/29/17 14:36 Dose: 1 applic Furosemide (Lasix -) 20 mg PO DAILY [facility] Last Admin: 11/29/17 10:54 Dose: 20 mg Ceftriaxone Sodium 2 gm/ (Dextrose) 100 mls @ 200 mls/hr IVPB DAILY [facility]; Protocol Last Admin: 11/29/17 10:14 Dose: 200 mls/hr Isosorbide Dinitrate (Isordil -) 10 mg PO BIDISORDIL [facility] Last Admin: 11/29/17 10:12 Dose: 10 mg Levetiracetam (Keppra -) 250 mg PO BID [facility] Last Admin: 11/29/17 10:54 Dose: 250 mg Lisinopril (Prinivil) 20 mg PO DAILY [facility] Last Admin: 11/29/17 10:12 Dose: 20 mg Lorazepam (Ativan Injection -) 1 mg IM Q8H PRN PRN Reason: AGITATION Methylprednisolone Sodium Succinate (Solu-Medrol -) 40 mg IVPUSH BID [facility] Last Admin: 11/29/17 10:55 Dose: 40 mg Metoprolol Succinate (Toprol Xl -) 25 mg PO BID [facility] Last Admin: 11/29/17 10:12 Dose: 25 mg Morphine Sulfate (Morphine Sulfate) 4 mg IVPUSH Q6H PRN PRN Reason: PAIN LEVEL 7 - 10 Mupirocin (Bactroban Ointment (For Decolonization) -) 1 applic NS BID [facility] Stop: 11/30/17 21:59 Last Admin: 11/29/17 10:13 Dose: 1 applic Pantoprazole Sodium (Protonix -) 40 mg PO DAILY [facility] Last Admin: 11/29/17 10:54 Dose: 40 mg Pregabalin (Lyrica -) 100 mg PO TID [facility] Last Admin: 11/29/17 14:35 Dose: 100 mg - Objective Vital Signs: Vital Signs Temperature 98.7 F 11/29/17 14:00 Pulse Rate 64 11/29/17 14:00 Respiratory Rate 18 11/29/17 14:00 Blood Pressure 156/90 11/29/17 14:00 O2 Sat by Pulse Oximetry (%) 95 11/29/17 14:21 Constitutional: Yes: Calm Eyes: Yes: Conjunctiva Clear HENT: Yes: Atraumatic Neck: Yes: Supple Cardiovascular: Yes: S1, S2 Respiratory: Yes: On Nasal O2 Gastrointestinal: Yes: Soft Genitourinary: Yes: WNL Musculoskeletal: Yes: WNL Edema: Yes Edema: LUE: 1+ Neurological: Yes: Oriented Psychiatric: Yes: Oriented Labs: CBC, BMP 11/29/17 07:30 11/29/17 07:30 INR, PTT INR 1.04 (0.83-1.09) 11/27/17 05:30 Problem List - Problems (1) Fall Code(s): W19.XXXA - UNSPECIFIED FALL, INITIAL ENCOUNTER Qualifiers: Encounter type: subsequent encounter Qualified Code(s): W19.XXXD - Unspecified fall, subsequent encounter (2) CAD (coronary artery disease) Code(s): I25.10 - ATHSCL HEART DISEASE OF [place] CORONARY ARTERY W/O ANG PCTRS Qualifiers: Coronary Disease-Associated Artery/Lesion type: [place] artery Associated angina: with stable angina (3) CHF (congestive heart failure) Code(s): I50.9 - HEART FAILURE, UNSPECIFIED (4) CKD (chronic kidney disease) Code(s): N18.9 - CHRONIC KIDNEY DISEASE, UNSPECIFIED Qualifiers: Chronic kidney disease stage: stage 3 (moderate) Qualified Code(s): N18.3 - Chronic kidney disease, stage 3 (moderate) Assessment/Plan Current Medications Generic Name Dose Route Start Last Admin Trade Name Freq PRN Reason Stop Dose Admin Acetaminophen 650 mg 11/25/17 20:29 11/27/17 21:49 Tylenol - PO 650 mg Q6H PRN Administration FEVER Albuterol Sulfate 1 amp 11/25/17 12:40 Ventolin 0.083% Nebulizer Soln - NEB Q4H PRN SHORT OF BREATH/WHEEZING Albuterol/Ipratropium 1 amp 11/26/17 12:00 11/29/17 15:28 Duoneb - NEB 1 amp RQID [facility] Administration Atorvastatin Calcium 20 mg 11/25/17 22:00 11/28/17 21:26 Lipitor - PO 20 mg HS [facility] Administration Chlorhexidine Gluconate 1 applic 11/25/17 22:00 11/28/17 21:26 Hibiclens For Decolonization - TP 1 applic HS [facility] Administration Duloxetine HCl 60 mg 11/26/17 10:00 11/29/17 10:12 Cymbalta - PO 60 mg DAILY [facility] Administration Fluocinonide 1 applic 11/26/17 10:00 11/29/17 14:36 Lidex 0.05% Cream - TP 1 applic DAILY [facility] Administration Furosemide 20 mg 11/26/17 10:00 11/29/17 10:54 Lasix - PO 20 mg DAILY [facility] Administration Ceftriaxone Sodium 2 gm/ 100 mls @ 200 mls/hr 11/28/17 17:15 11/29/17 10:14 Dextrose IVPB 200 mls/hr DAILY [facility] Administration Protocol Isosorbide Dinitrate 10 mg 11/26/17 10:00 11/29/17 10:12 Isordil - PO 10 mg BIDISORDIL [facility] Administration Levetiracetam 250 mg 11/25/17 22:00 11/29/17 10:54 Keppra - PO 250 mg BID [facility] Administration Lisinopril 20 mg 11/28/17 14:41 11/29/17 10:12 Prinivil PO 20 mg DAILY [facility] Administration Lorazepam 1 mg 11/28/17 14:18 Ativan Injection - IM Q8H PRN AGITATION Methylprednisolone Sodium Succinate 40 mg 11/27/17 22:00 11/29/17 10:55 Solu-Medrol - IVPUSH 40 mg BID [facility] Administration Metoprolol Succinate 25 mg 11/25/17 22:00 11/29/17 10:12 Toprol Xl - PO 25 mg BID [facility] Administration Morphine Sulfate 4 mg 11/29/17 09:22 Morphine Sulfate IVPUSH Q6H PRN PAIN LEVEL 7 - 10 Mupirocin 1 applic 11/25/17 22:00 11/29/17 10:13 Bactroban Ointment (For Decolonization) - NS 11/30/17 21:59 1 applic BID [facility] Administration Pantoprazole Sodium 40 mg 11/26/17 10:00 11/29/17 10:54 Protonix - PO 40 mg DAILY [facility] Administration Pregabalin 100 mg 11/25/17 22:00 11/29/17 14:35 Lyrica - PO 100 mg TID [facility] Administration Impression 1. CKD 2. COPD exacerbation 3. AAA 4. hx CVA 5. a-fib 6. HTN 7. insomnia 8. hypoxic resp failure 9. CAD 10. BPH 12. microscopic hematuria 13. 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
[2017-11-29] MEDS: morphine SULFATE 4 MG/ML VIAL IVPUSH PRN (22:00)
[2017-11-29] MEDS: ATORVASTATIN CA 20 MG TABLET (FP) PO SCH (22:00)
--- NOTE | 2017-11-29 23:14 | CONSULT ---
Consult - text type - Consultation Consultation Note: The patient is a 77 year old white man with a significant PMH of AAA repair ( 2011), CVA, TAA, afib, DVT, CAD, CHF, COPD, CKD, BPH, PPM, hypertension, hyperlipidemia, knee replacement and cataract repair who presents to the emergency department via EMS with a seizure like activity prior to arrival. He had sustained a fall prior to admission. Patient is being treted for s. 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 Cardio/Vascular: Yes: AFIB, Aneurysm, CAD, CHF, HTN, Hyperlipdemia, Murmur, Other (peripheral artery disease) Pulmonary: Yes: COPD Renal/: Yes: BPH - Past Surgical History Past Surgical History: Yes: AAA Repair, Bypass (lower ext), Permanent Pacemaker , Stent (cardiac x 2) - Smoking History Smoking history: Never smoked - Social History Usual Living Arrangement: With Spouse ADL: Family Assistance - Allergies Allergies/Adverse Reactions: Allergies Allergy/AdvReac Type Severity Reaction Status Date / Time No Known Allergies Allergy Verified 11/23/17 21:04 - Home Medications Home Medications: Ambulatory Orders Albuterol 0.083% Nebulizer Suki [Ventolin 0.083% Nebulizer Soln -] 1 neb NEB QID 11/08/17 Aspirin [Ecotrin] 81 mg PO DAILY 11/08/17 Budesonide/Formeterol Fumarate [SYMBICORT 160/4.5mcg -] 1 inh PO BID 11/08/17 Duloxetine HCl [Cymbalta -] 60 mg PO DAILY 11/08/17 Ferrous Sulfate 325 mg PO DAILY 11/08/17 Fluocinonide 0.05% Cream [Lidex 0.05% Cream -] 1 applic TP DAILY 11/08/17 Isosorbide Dinitrate [Isordil -] 20 mg PO BID 11/08/17 Lovastatin 10 mg PO HS 11/08/17 Pantoprazole Sodium [Protonix] 40 mg PO DAILY 11/08/17 Pregabalin [Lyrica] 100 mg PO TID 11/08/17 Rivaroxaban [Xarelto -] 20 mg PO DAILY 11/08/17 Tamsulosin HCl [Flomax] 0.4 mg PO HS 11/08/17 Furosemide [Lasix -] 40 mg PO DAILY tablet 11/12/17 Diltiazem Cd [Cardizem Cd -] 120 mg PO DAILY #30 cap.cd.24h 11/15/17 Lisinopril [Prinivil] 40 mg PO DAILY #0 tablet 11/15/17 Metoprolol Succinate [Toprol XL -] 50 mg PO BID tab.sr.24h 11/15/17 Prednisone 10 mg PO BID #100 tablet 11/15/17 Family Disease History - Family Disease History Family History: Denies Vital Signs: Last Vital Signs Temp Pulse Resp BP Pulse Ox 97.8 F 62 14 162/100 95 11/30/17 06:00 11/30/17 06:00 11/30/17 06:00 11/30/17 06:00 11/30/17 05:00 Cor: RSR, No murmurs, No gallops Lungs: Clear to P&A Abd: Soft, Normal bowel sounds, No organomegaly Ext:No significant edema Skin: LUE ecchymoses Imaging - Results Chest X-ray: Image Reviewed (no acute pathology) EKG: Image Reviewed (ventricular-paced rhythm) Problem List 1. CKD 2. COPD exacerbation 3. AAA 4. hx CVA 5. a-fib 6. HTN 7. CAD 8. BPH 9.Seizure 10. Fall 11. LUE hematoma 12. S. mitis bacteremia The patient is a 77 year old white man with a significant PMH of AAA repair ( 2011), CVA, TAA, afib( on Xeralto at [facility] [place]) , DVT, CAD, CHF, COPD, CKD, BPH, PPM, hypertension, hyperlipidemia, knee replacement and cataract repair who presents to the emergency department via EMS with a seizure like activity prior to arrival. He had sustained a fall prior to admission. Patient is being treted for s. mitis bacteremia, copd exacerbation and LUE heamtoma We have been consulted regarding thrombocytopenia Thrombocytopenia -- Most likely consumptive process from LUE hematoma? ? occult infection Was on heparin 11/25/, 11/26 Time frame unlikely but will check HIT ab Nl coags will discuss with surgery/cardiology regarding a/c --holding for now given hematoma Pancreatic mases --? neuro endocrine timor + ? IPMN vs neoplasm--on CT 04/11 To discuss with family given comorbidities, functional status ? aggressiveness of w/u will follow
[2017-11-30] MEDS: PREGABALIN 100 MG CAPSULE PO SCH ×3 (05:18→21:27)
[2017-11-30 06:29] LABS: BASO % 0.1 % (0-2.0); HEMATOCRIT 30.6 % (35.4-49); LYMPH % 1.9 % (8-40); MCH 27.9 pg (25.7-33.7); MCHC 32.8 g/dl (32.0-35.9); MEAN CELL VOLUME 85.1 fl (80-96); MEAN PLT VOLUME 9.9 fl (7.5-11.1); MONO % 2.1 % (3.8-10.2); NEUT % 95.9 % (42.8-82.8); PLATELET COUNT 87 K/MM3 (134-434); RBC 3.59 M/mm3 (4.00-5.60); RDW 18.5 % (11.9-15.9); WHITE BLOOD COUNT 7.5 K/mm3 (4.0-10.0)
[2017-11-30 06:51] LABS: ALBUMIN 2.4 g/dl (3.4-5.0); ANION GAP 11 MMOL/L (8-16); BLOOD UREA NITROGEN 51 mg/dL (7-18); CHLORIDE 107 mmol/L (98-107); CO2 24 mmol/L (21-32); CREATININE 1.3 mg/dL (0.7-1.3); GLUCOSE,RANDOM 107 mg/dL (74-106); MAGNESIUM 2.5 mg/dL (1.8-2.4); PHOSPHOROUS 4.3 mg/dL (2.5-4.9); POTASSIUM 4.7 mmol/L (3.5-5.1); SGOT/AST 21 U/L (15-37); SGPT/ALT 59 U/L (12-78); SODIUM 142 mmol/L (136-145)
[2017-11-30 07:00] LABS: ALK PHOS 41 U/L (45-117); BILIRUBIN,TOTAL 0.5 mg/dL (0.2-1.0); TOT PROT 5.1 g/dl (6.4-8.2)
--- NOTE | 2017-11-30 07:50 | PN ---
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 (short form) - Note 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: alert nad on high flow oxygen Vital Signs Period Temp Pulse Resp BP Sys/Varghese Pulse Ox Last 24 Hr 97.8 F-98.7 F 60-74 12-18 131-162/76-100 93-100 cor-rrr lungs decreased bs at ases abd soft,nt +hematoma unchanged Left arm CBC, BMP 11/30/17 05:30 11/30/17 05:30 Microbiology 11/25/17 17:00 Blood - Peripheral Venous Blood Culture - Preliminary NO GROWTH OBTAINED AFTER 96 HOURS, INCUBATION TO CONTINUE FOR 1 DAYS. 11/26/17 16:40 Blood - Peripheral Venous Blood Culture - Preliminary NO GROWTH OBTAINED AFTER 72 HOURS, INCUBATION TO CONTINUE FOR 2 DAYS. 11/26/17 14:20 Blood - Peripheral Venous Blood Culture - Preliminary NO GROWTH OBTAINED AFTER 72 HOURS, INCUBATION TO CONTINUE FOR 2 DAYS. 11/23/17 21:35 Blood - Peripheral Venous Blood Culture - Final NO GROWTH AFTER 5 DAYS INCUBATION 11/23/17 21:35 Blood - Peripheral Venous Blood Culture - Final NO GROWTH AFTER 5 DAYS INCUBATION 11/25/17 17:45 Blood - Peripheral Venous Blood Culture - Final Streptococcus Mitis 11/26/17 19:00 Nasopharyngeal Swab Respiratory Syncytial Virus Ag - Final 11/26/17 02:40 Urine - Urine Clean Catch Urine Culture - Final NO GROWTH OBTAINED 11/23/17 22:10 Urine - Urine Clean Catch Urine Culture - Final imp/reccd strep mitis bacteremia- continue rocephin , suboptimal echo, day #5 antibiotics - suspect will require voucher clerk antibiotics seizures left arm hematoma copd thrombocytopenia- progressive since 11/27 (prior to starting ceftriaxone) hematology f/u of thrombocytopenia Problem List - Problems (1) Bacteremia Code(s): R78.81 - BACTEREMIA (2) Leukocytosis (leucocytosis) Code(s): D72.829 - ELEVATED WHITE BLOOD CELL COUNT, UNSPECIFIED (3) Hematoma Code(s): T14.8XXA - OTHER INJURY OF UNSPECIFIED BODY REGION, INITIAL ENCOUNTER (4) Seizure Code(s): R56.9 - UNSPECIFIED CONVULSIONS
[2017-11-30] MEDS: ALBUTEROL SO4 2.5/IPRATROPIUM 0.5 INH SOL 3 ML VIAL.NEB. NEB SCH ×4 (08:06→21:16)
--- NOTE | 2017-11-30 08:13 | PN ---
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, Physician Chief Complaint: no distress TELE: paced with NSVT- 3 beats History of Present Illness: appreciate heme consult - Current Medication List Current Medications: Active Medications Acetaminophen (Tylenol -) 650 mg PO Q6H PRN PRN Reason: FEVER Last Admin: 11/27/17 21:49 Dose: 650 mg Albuterol Sulfate (Ventolin 0.083% Nebulizer Soln -) 1 amp NEB Q4H PRN PRN Reason: SHORT OF BREATH/WHEEZING Albuterol/Ipratropium (Duoneb -) 1 amp NEB RQID [facility] Last Admin: 11/30/17 08:06 Dose: Not Given Atorvastatin Calcium (Lipitor -) 20 mg PO HS [facility] Last Admin: 11/29/17 22:00 Dose: 20 mg Chlorhexidine Gluconate (Hibiclens For Decolonization -) 1 applic TP HS [facility] Last Admin: 11/30/17 00:00 Dose: 1 applic Duloxetine HCl (Cymbalta -) 60 mg PO DAILY [facility] Last Admin: 11/29/17 10:12 Dose: 60 mg Fluocinonide (Lidex 0.05% Cream -) 1 applic TP DAILY [facility] Last Admin: 11/29/17 14:36 Dose: 1 applic Furosemide (Lasix -) 20 mg PO DAILY [facility] Last Admin: 11/29/17 10:54 Dose: 20 mg Ceftriaxone Sodium 2 gm/ (Dextrose) 100 mls @ 200 mls/hr IVPB DAILY [facility]; Protocol Last Admin: 11/29/17 10:14 Dose: 200 mls/hr Isosorbide Dinitrate (Isordil -) 10 mg PO BIDISORDIL [facility] Last Admin: 11/29/17 17:32 Dose: 10 mg Levetiracetam (Keppra -) 250 mg PO BID [facility] Last Admin: 11/29/17 22:00 Dose: 250 mg Lisinopril (Prinivil) 40 mg PO DAILY [facility] Lorazepam (Ativan Injection -) 1 mg IM Q8H PRN PRN Reason: AGITATION Methylprednisolone Sodium Succinate (Solu-Medrol -) 40 mg IVPUSH BID [facility] Last Admin: 11/29/17 22:00 Dose: 40 mg Metoprolol Succinate (Toprol Xl -) 25 mg PO BID [facility] Last Admin: 11/29/17 22:00 Dose: 25 mg Morphine Sulfate (Morphine Sulfate) 4 mg IVPUSH Q6H PRN PRN Reason: PAIN LEVEL 7 - 10 Last Admin: 11/29/17 22:00 Dose: 4 mg Mupirocin (Bactroban Ointment (For Decolonization) -) 1 applic NS BID [facility] Stop: 11/30/17 21:59 Last Admin: 11/30/17 00:00 Dose: 1 applic Nystatin (Nystop Powder -) 1 applic TP DAILY [facility] Pantoprazole Sodium (Protonix -) 40 mg PO DAILY [facility] Last Admin: 11/29/17 10:54 Dose: 40 mg Pregabalin (Lyrica -) 100 mg PO TID [facility] Last Admin: 11/30/17 05:18 Dose: 100 mg - Objective Vital Signs: Vital Signs Temperature 97.8 F 11/30/17 06:00 Pulse Rate 61 11/30/17 08:05 Respiratory Rate 14 11/30/17 06:00 Blood Pressure 162/100 11/30/17 06:00 O2 Sat by Pulse Oximetry (%) 95 11/30/17 08:05 Constitutional: Yes: Calm Cardiovascular: Yes: Regular Rate and Rhythm Respiratory: Yes: Other (no actice wheezing or rales) Gastrointestinal: Yes: Soft Edema: Yes Edema: LLE: 3+, RLE: 1+ Neurological: Yes: Alert Labs: CBC, BMP 11/30/17 05:30 11/30/17 05:30 INR, PTT INR 1.04 (0.83-1.09) 11/27/17 05:30 Microbiology 11/26/17 16:40 Blood - Peripheral Venous Blood Culture - Preliminary NO GROWTH OBTAINED AFTER 72 HOURS, INCUBATION TO CONTINUE FOR 2 DAYS. 11/26/17 14:20 Blood - Peripheral Venous Blood Culture - Preliminary NO GROWTH OBTAINED AFTER 72 HOURS, INCUBATION TO CONTINUE FOR 2 DAYS. 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 Holding AC for now in setting of LUE hematoma and progressive thrombocytopenia. Heme Evaluation appreciated. 2. Steroid taper 3. Abx as per ID , serial cultures have been negative. WBC is down. Duration of abx as per ID. Patient would be at elevated risk for GOPI due to his hypoxia and respiratory status. Furthermore, unclear that GOPI would pattern changer significantly. He is not a surgical candidate. 4. Cont Toprol for NSVT: keep K+>4 and Mg2+>2. 5. Add low dose amlodipine for AM HTN several days now. Plan for conservative approach to bacteremia Rx discussed with yesterday who agrees.
[2017-11-30] MEDS ORDERED: DEXTROSE 5%-WATER 100 ML IVPB ONE (08:16)
--- NOTE | 2017-11-30 08:44 | PN ---
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 (short form) - Note 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: Vascular surgery Pt seen and examined. Left upper extremity much better. Arm is much softer. Pt can bend arm. Pt has a good palpable brachial and radial pulse. Cont present care with arm elevation Keanu Hendricks DO
--- NOTE | 2017-11-30 09:17 | PN ---
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 (short form) - Note 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: Seen and examined in ICU Remains on HFNC, weaned from 50lpm->40lpm this AM. Fio2 weaned from 60%->50% w/ sats 90-92% afebrile, stable BP Denies: CP/SOB/cough/f/c/n Left arm hematoma stable Current Medications Acetaminophen (Tylenol -) 650 mg PO Q6H PRN PRN Reason: FEVER Last Admin: 11/27/17 21:49 Dose: 650 mg Albuterol Sulfate (Ventolin 0.083% Nebulizer Soln -) 1 amp NEB Q4H PRN PRN Reason: SHORT OF BREATH/WHEEZING Albuterol/Ipratropium (Duoneb -) 1 amp NEB RQID [facility] Last Admin: 11/30/17 08:06 Dose: Not Given Amlodipine Besylate (Norvasc -) 2.5 mg PO DAILY [facility] Atorvastatin Calcium (Lipitor -) 20 mg PO HS [facility] Last Admin: 11/29/17 22:00 Dose: 20 mg Chlorhexidine Gluconate (Hibiclens For Decolonization -) 1 applic TP HS [facility] Last Admin: 11/30/17 00:00 Dose: 1 applic Duloxetine HCl (Cymbalta -) 60 mg PO DAILY [facility] Last Admin: 11/29/17 10:12 Dose: 60 mg Fluocinonide (Lidex 0.05% Cream -) 1 applic TP DAILY [facility] Last Admin: 11/29/17 14:36 Dose: 1 applic Furosemide (Lasix -) 20 mg PO DAILY [facility] Last Admin: 11/29/17 10:54 Dose: 20 mg Ceftriaxone Sodium 2 gm/ (Dextrose) 100 mls @ 200 mls/hr IVPB DAILY [facility]; Protocol Last Admin: 11/29/17 10:14 Dose: 200 mls/hr Isosorbide Dinitrate (Isordil -) 10 mg PO BIDISORDIL [facility] Last Admin: 11/29/17 17:32 Dose: 10 mg Levetiracetam (Keppra -) 250 mg PO BID [facility] Last Admin: 11/29/17 22:00 Dose: 250 mg Lisinopril (Prinivil) 40 mg PO DAILY [facility] Lorazepam (Ativan Injection -) 1 mg IM Q8H PRN PRN Reason: AGITATION Methylprednisolone Sodium Succinate (Solu-Medrol -) 40 mg IVPUSH BID [facility] Last Admin: 11/29/17 22:00 Dose: 40 mg Metoprolol Succinate (Toprol Xl -) 25 mg PO BID [facility] Last Admin: 11/29/17 22:00 Dose: 25 mg Morphine Sulfate (Morphine Sulfate) 4 mg IVPUSH Q6H PRN PRN Reason: PAIN LEVEL 7 - 10 Last Admin: 11/29/17 22:00 Dose: 4 mg Mupirocin (Bactroban Ointment (For Decolonization) -) 1 applic NS BID [facility] Stop: 11/30/17 21:59 Last Admin: 11/30/17 00:00 Dose: 1 applic Nystatin (Nystop Powder -) 1 applic TP DAILY [facility] Pantoprazole Sodium (Protonix -) 40 mg PO DAILY [facility] Last Admin: 11/29/17 10:54 Dose: 40 mg Pregabalin (Lyrica -) 100 mg PO TID [facility] Last Admin: 11/30/17 05:18 Dose: 100 mg Vital Signs Period Temp Pulse Resp BP Sys/Varghese Pulse Ox Last 24 Hr 97.8 F-98.7 F 60-74 12-18 131-162/76-100 93-100 Intake & Output 11/27/17 11/28/17 11/29/17 11/30/17 23:59 23:59 23:59 23:59 Intake Total 910 464 750 Output Total 860 934 313 0296 Balance 50 - Weight 69.853 kg 70.5 kg 71.4 kg 70.2 kg General: awake and without distress this AM HEENT: surgical pupil, no JVD noted CV: paced Pulm: faint exp wheeze in bases Abd: SNTND Ext: left UE large stable hematoma, LE trace edema Neuro: awake, alert, BARRAZA CBC, BMP 11/30/17 05:30 11/30/17 05:30 ASSESSMENT AND PLAN: Acute on Chronic Hypoxic Respiratory Failure Left Arm Hematoma Seizures Acute COPD Exacerbation LV Diastolic Dysfunction Atrial Fibrillation Acute on Chronic Renal Failure h/o CVA CAD HTN Hyperlipidemia - monitor hematoma, surgery following - on empiric antibiotics for 2 week course per ID: ceftriaxone - transition for medrol to prednisone with planned taper 30mg today - inhaled bronchodilators - O2 to keep Spo2 >89% - continue high flow O2: wean Fio2 - continue home lasix - monitor urine output, creatinine - rate control - holding anticoagulation - continue ICU monitoring Eusebia ACNP Pulm/CCM CCT: 35m
--- NOTE | 2017-11-30 10:15 | PN ---
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 (short form) - Note 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: 1. CKD 2. COPD exacerbation 3. AAA 4. hx CVA 5. a-fib 6. HTN 7. insomnia 8. hypoxic resp failure 9. CAD 10. BPH 12. microscopic hematuria 13. hypoxia Current Medications Acetaminophen (Tylenol -) 650 mg PO Q6H PRN PRN Reason: FEVER Last Admin: 11/27/17 21:49 Dose: 650 mg Albuterol Sulfate (Ventolin 0.083% Nebulizer Soln -) 1 amp NEB Q4H PRN PRN Reason: SHORT OF BREATH/WHEEZING Albuterol/Ipratropium (Duoneb -) 1 amp NEB RQID [facility] Last Admin: 11/30/17 08:06 Dose: Not Given Amlodipine Besylate (Norvasc -) 2.5 mg PO DAILY [facility] Atorvastatin Calcium (Lipitor -) 20 mg PO HS [facility] Last Admin: 11/29/17 22:00 Dose: 20 mg Chlorhexidine Gluconate (Hibiclens For Decolonization -) 1 applic TP HS [facility] Last Admin: 11/30/17 00:00 Dose: 1 applic Duloxetine HCl (Cymbalta -) 60 mg PO DAILY [facility] Last Admin: 11/29/17 10:12 Dose: 60 mg Fluocinonide (Lidex 0.05% Cream -) 1 applic TP DAILY [facility] Last Admin: 11/29/17 14:36 Dose: 1 applic Furosemide (Lasix -) 20 mg PO DAILY [facility] Last Admin: 11/29/17 10:54 Dose: 20 mg Ceftriaxone Sodium 2 gm/ (Dextrose) 100 mls @ 200 mls/hr IVPB DAILY [facility]; Protocol Last Admin: 11/29/17 10:14 Dose: 200 mls/hr Isosorbide Dinitrate (Isordil -) 10 mg PO BIDISORDIL [facility] Last Admin: 11/29/17 17:32 Dose: 10 mg Levetiracetam (Keppra -) 250 mg PO BID [facility] Last Admin: 11/29/17 22:00 Dose: 250 mg Lisinopril (Prinivil) 40 mg PO DAILY [facility] Lorazepam (Ativan Injection -) 1 mg IM Q8H PRN PRN Reason: AGITATION Metoprolol Succinate (Toprol Xl -) 25 mg PO BID [facility] Last Admin: 11/29/17 22:00 Dose: 25 mg Morphine Sulfate (Morphine Sulfate) 4 mg IVPUSH Q6H PRN PRN Reason: PAIN LEVEL 7 - 10 Last Admin: 11/29/17 22:00 Dose: 4 mg Mupirocin (Bactroban Ointment (For Decolonization) -) 1 applic NS BID [facility] Stop: 11/30/17 21:59 Last Admin: 11/30/17 00:00 Dose: 1 applic Nystatin (Nystop Powder -) 1 applic TP DAILY [facility] Pantoprazole Sodium (Protonix -) 40 mg PO DAILY [facility] Last Admin: 11/29/17 10:54 Dose: 40 mg Prednisone (Deltasone -) 30 mg PO DAILY [facility] Pregabalin (Lyrica -) 100 mg PO TID [facility] Last Admin: 11/30/17 05:18 Dose: 100 mg Last Vital Signs Temp Pulse Resp BP Pulse Ox 97.8 F 61 14 162/100 95 11/30/17 06:00 11/30/17 08:05 11/30/17 06:00 11/30/17 06:00 11/30/17 08:05 Lungs diffuse rhonchi Heart s1s2 Abd soft Ext Lue / dusky swelling CBC, BMP 11/30/17 05:30 11/30/17 05:30 IMP- CKD Prerenal Plan- ensure hydration monitor renal function
[2017-11-30] MEDS: DULoxetine HCL 30 MG CAPSULE.DR (FP) PO SCH (10:23)
[2017-11-30] MEDS: FUROSEMIDE 20 MG TABLET (FP) PO SCH (10:24)
[2017-11-30] MEDS: metoPROLOL SUCCINATE 25 MG TAB.SR.24H (FP) PO SCH ×2 (10:24→21:27)
[2017-11-30] MEDS: levETIRAcetam 500 MG TABLET (FP) PO SCH ×2 (10:24→21:27)
[2017-11-30] MEDS: LISINOPRIL 20 MG TABLET (FP) PO SCH (10:25)
[2017-11-30] MEDS: PANTOPRAZOLE 40 MG TABLET (FP) PO SCH (10:25)
[2017-11-30] MEDS: FLUOCINONIDE 0.05% CREAM (15 GM TUBE) TP SCH (10:26)
[2017-11-30] MEDS: NYSTATIN POWDER 100,000 UNITS/GM - 15 GM TOPICAL POWDER TP SCH (10:27)
[2017-11-30] MEDS: methylPREDNISolone NA SUCC 40 MG/1 ML VIAL IVPUSH SCH (10:27)
[2017-11-30] MEDS: MUPIROCIN 2% TOPICAL OINTMENT FOR DECOLONIZATION NS SCH ×2 (10:29)
[2017-11-30] MEDS: CEFTRIAXONE 2 GM in DEXTROSE 5%-WATER 100 ML IVPB SCH (10:29)
[2017-11-30] MEDS: predniSONE 10 MG TABLET (UD) PO SCH (10:30)
[2017-11-30] MEDS ORDERED: PT OWN MED DRAWER 7, Y5N ONE ×2 (10:37→18:47)
[2017-11-30] MEDS: ISOSORBIDE DINITRATE 10 MG TABLET (FP) PO SCH ×2 (10:38→18:52)
[2017-11-30] MEDS: ACETAMINOPHEN 325 MG TABLET (FP) PO PRN (10:38)
[2017-11-30 11:55] LABS: ANISOCYTOSIS 1+; MACROCYTOSIS 0; PLATELET ESTIMATE DECREASED
--- NOTE | 2017-11-30 12:19 | PN ---
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, Physician Chief Complaint: left arm swelling and bruising History of Present Illness: 77 yo male PMH of AAA repair 2012, CVA, TAA, afib, DVT, CAD, CHF, COPD, CKD, BPH , PPM, with Btr hypertension, hyperlipidemia, knee replacement and cataract repair who presents to the emergency department via EMS with a seizure like activity prior to arrival. Improved pain in the left arm compared to initial assessment. arm suspended. - Current Medication List Current Medications: Active Medications Acetaminophen (Tylenol -) 650 mg PO Q6H PRN PRN Reason: FEVER Last Admin: 11/30/17 10:38 Dose: 650 mg Albuterol Sulfate (Ventolin 0.083% Nebulizer Soln -) 1 amp NEB Q4H PRN PRN Reason: SHORT OF BREATH/WHEEZING Albuterol/Ipratropium (Duoneb -) 1 amp NEB RQID [facility] Last Admin: 11/30/17 11:52 Dose: 1 amp Amlodipine Besylate (Norvasc -) 2.5 mg PO DAILY [facility] Atorvastatin Calcium (Lipitor -) 20 mg PO HS [facility] Last Admin: 11/29/17 22:00 Dose: 20 mg Chlorhexidine Gluconate (Hibiclens For Decolonization -) 1 applic TP HS [facility] Last Admin: 11/30/17 00:00 Dose: 1 applic Duloxetine HCl (Cymbalta -) 60 mg PO DAILY [facility] Last Admin: 11/30/17 10:23 Dose: 60 mg Fluocinonide (Lidex 0.05% Cream -) 1 applic TP DAILY [facility] Last Admin: 11/30/17 10:26 Dose: 1 applic Furosemide (Lasix -) 20 mg PO DAILY [facility] Last Admin: 11/30/17 10:24 Dose: 20 mg Ceftriaxone Sodium 2 gm/ (Dextrose) 100 mls @ 200 mls/hr IVPB DAILY [facility]; Protocol Last Admin: 11/30/17 10:29 Dose: 200 mls/hr Isosorbide Dinitrate (Isordil -) 10 mg PO BIDISORDIL [facility] Last Admin: 11/30/17 10:38 Dose: 10 mg Levetiracetam (Keppra -) 250 mg PO BID [facility] Last Admin: 11/30/17 10:24 Dose: 250 mg Lisinopril (Prinivil) 40 mg PO DAILY [facility] Last Admin: 11/30/17 10:25 Dose: 40 mg Lorazepam (Ativan Injection -) 1 mg IM Q8H PRN PRN Reason: AGITATION Metoprolol Succinate (Toprol Xl -) 25 mg PO BID [facility] Last Admin: 11/30/17 10:24 Dose: 25 mg Morphine Sulfate (Morphine Sulfate) 4 mg IVPUSH Q6H PRN PRN Reason: PAIN LEVEL 7 - 10 Last Admin: 11/29/17 22:00 Dose: 4 mg Mupirocin (Bactroban Ointment (For Decolonization) -) 1 applic NS BID [facility] Stop: 11/30/17 21:59 Last Admin: 11/30/17 10:29 Dose: 1 applic Nystatin (Nystop Powder -) 1 applic TP DAILY [facility] Last Admin: 11/30/17 10:27 Dose: 1 applic Pantoprazole Sodium (Protonix -) 40 mg PO DAILY [facility] Last Admin: 11/30/17 10:25 Dose: 40 mg Prednisone (Deltasone -) 30 mg PO DAILY [facility] Last Admin: 11/30/17 10:30 Dose: Not Given Pregabalin (Lyrica -) 100 mg PO TID [facility] Last Admin: 11/30/17 05:18 Dose: 100 mg - Objective Vital Signs: Vital Signs Temperature 97.8 F 11/30/17 06:00 Pulse Rate 61 11/30/17 10:00 Respiratory Rate 14 11/30/17 06:00 Blood Pressure 162/100 11/30/17 06:00 O2 Sat by Pulse Oximetry (%) 90 L 11/30/17 11:51 Vital Signs Period Temp Pulse Resp BP Sys/Varghese Pulse Ox Last 24 Hr 97 F-97.8 F 67-89 13-20 84-129/51-67 84-97 Constitutional: Yes: Well Nourished, No Distress, Calm Eyes: Yes: Conjunctiva Clear, EOM Intact HENT: Yes: Atraumatic, Normocephalic Neck: Yes: Supple, Trachea Midline Cardiovascular: Yes: Regular Rate and Rhythm, S1, S2 Respiratory: Yes: Regular, CTA Bilaterally Gastrointestinal: Yes: Normal Bowel Sounds, Soft. No: Tenderness, Tenderness, Epigastrium ...Rectal Exam: Yes: Deferred Genitourinary: No: CVA Tenderness - Left, CVA Tenderness - Right Musculoskeletal: Yes: Joint Stiffness, Joint Swelling Extremities: No: Cool, Cyanosis Edema: Yes Edema: LUE: 1+ Peripheral Pulses WNL: Yes Peripheral Pulses: Left Radial: 2+, Right Radial: 2+, Left Doralis Pedis: 2+, Right Dorsalis Pedis: 2+ Integumentary: Yes: Bruising (left arm antecubital and forearm) Neurological: Yes: Alert, Oriented Psychiatric: Yes: Alert, Oriented Labs: CBC, BMP 11/30/17 05:30 11/30/17 05:30 INR, PTT INR 1.04 (0.83-1.09) 11/27/17 05:30 Problem List - Problems (1) Traumatic hematoma of left upper arm Assessment/Plan: 77 yo RHD male MMP s/p L CTR [address] Charlie Gilman, low index of suspicion for acute compartment syndrome, hematomas have been demonstrated to be superficial. WBC >20 --> 7, radial pulse exam 2+. He is more comfortable today. Edema is resolving in the left arm. appreciate vascular input. Elevation above heart level IV antibiotics per ID Consider holding anticoagulation Correct coagulopathy if possible PT evaluation for Edema management and ROM will follow This patient is critically ill. Time spent reviewing chart, examining patient, talking with providers and/or family and documentation is 35 minutes. Code(s): S40.022A - CONTUSION OF LEFT UPPER ARM, INITIAL ENCOUNTER Qualifiers: Encounter type: initial encounter Qualified Code(s): S40.022A - Contusion of left upper arm, initial encounter (2) Fall Code(s): W19.XXXA - UNSPECIFIED FALL, INITIAL ENCOUNTER Qualifiers: Encounter type: subsequent encounter Qualified Code(s): W19.XXXD - Unspecified fall, subsequent encounter (3) CAD (coronary artery disease) Code(s): I25.10 - ATHSCL HEART DISEASE OF [place] CORONARY ARTERY W/O ANG PCTRS Qualifiers: Coronary Disease-Associated Artery/Lesion type: [place] artery Associated angina: with stable angina (4) COPD (chronic obstructive pulmonary disease) Code(s): J44.9 - CHRONIC OBSTRUCTIVE PULMONARY DISEASE, UNSPECIFIED Qualifiers: COPD type: COPD with acute exacerbation Qualified Code(s): J44.1 - Chronic obstructive pulmonary disease with (acute) exacerbation (5) History of aortic aneurysm repair Code(s): Z98.890 - OTHER SPECIFIED POSTPROCEDURAL STATES; Z86.79 - PERSONAL HISTORY OF OTHER DISEASES OF THE CIRCULATORY SYSTEM (6) History of arterial bypass of lower extremity Code(s): Z95.828 - PRESENCE OF OTHER VASCULAR IMPLANTS AND GRAFTS
--- NOTE | 2017-11-30 13:36 | PN ---
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, Physician History of Present Illness: Feels better - Current Medication List Current Medications: Active Medications Acetaminophen (Tylenol -) 650 mg PO Q6H PRN PRN Reason: FEVER Last Admin: 11/30/17 10:38 Dose: 650 mg Albuterol/Ipratropium (Duoneb -) 1 amp NEB RQID [facility] Last Admin: 11/30/17 11:52 Dose: 1 amp Amlodipine Besylate (Norvasc -) 2.5 mg PO DAILY [facility] Atorvastatin Calcium (Lipitor -) 20 mg PO HS [facility] Last Admin: 11/29/17 22:00 Dose: 20 mg Chlorhexidine Gluconate (Hibiclens For Decolonization -) 1 applic TP HS [facility] Last Admin: 11/30/17 00:00 Dose: 1 applic Duloxetine HCl (Cymbalta -) 60 mg PO DAILY [facility] Last Admin: 11/30/17 10:23 Dose: 60 mg Fluocinonide (Lidex 0.05% Cream -) 1 applic TP DAILY [facility] Last Admin: 11/30/17 10:26 Dose: 1 applic Furosemide (Lasix -) 20 mg PO DAILY [facility] Last Admin: 11/30/17 10:24 Dose: 20 mg Ceftriaxone Sodium 2 gm/ (Dextrose) 100 mls @ 200 mls/hr IVPB DAILY [facility]; Protocol Last Admin: 11/30/17 10:29 Dose: 200 mls/hr Isosorbide Dinitrate (Isordil -) 10 mg PO BIDISORDIL [facility] Last Admin: 11/30/17 10:38 Dose: 10 mg Levetiracetam (Keppra -) 250 mg PO BID [facility] Last Admin: 11/30/17 10:24 Dose: 250 mg Lisinopril (Prinivil) 40 mg PO DAILY [facility] Last Admin: 11/30/17 10:25 Dose: 40 mg Lorazepam (Ativan Injection -) 1 mg IM Q8H PRN PRN Reason: AGITATION Metoprolol Succinate (Toprol Xl -) 25 mg PO BID [facility] Last Admin: 11/30/17 10:24 Dose: 25 mg Morphine Sulfate (Morphine Sulfate) 4 mg IVPUSH Q6H PRN PRN Reason: PAIN LEVEL 7 - 10 Last Admin: 11/29/17 22:00 Dose: 4 mg Mupirocin (Bactroban Ointment (For Decolonization) -) 1 applic NS BID [facility] Stop: 11/30/17 21:59 Last Admin: 11/30/17 10:29 Dose: 1 applic Nystatin (Nystop Powder -) 1 applic TP DAILY [facility] Last Admin: 11/30/17 10:27 Dose: 1 applic Pantoprazole Sodium (Protonix -) 40 mg PO DAILY [facility] Last Admin: 11/30/17 10:25 Dose: 40 mg Prednisone (Deltasone -) 30 mg PO DAILY [facility] Last Admin: 11/30/17 10:30 Dose: Not Given Pregabalin (Lyrica -) 100 mg PO TID [facility] Last Admin: 11/30/17 05:18 Dose: 100 mg - Objective Vital Signs: Vital Signs Temperature 97.8 F 11/30/17 06:00 Pulse Rate 61 11/30/17 10:00 Respiratory Rate 14 11/30/17 06:00 Blood Pressure 162/100 11/30/17 06:00 O2 Sat by Pulse Oximetry (%) 90 L 11/30/17 11:51 Cardiovascular: Yes: S1, S2 Respiratory: Yes: CTA Bilaterally, Other (on 40 %) Gastrointestinal: Yes: Normal Bowel Sounds, Soft Labs: CBC, BMP 11/30/17 05:30 11/30/17 05:30 INR, PTT INR 1.04 (0.83-1.09) 11/27/17 05:30 Problem List - Problems (1) Fall Assessment/Plan: -Physical therapy -CT head negative -Neurology consult -Safety precautions Code(s): W19.XXXA - UNSPECIFIED FALL, INITIAL ENCOUNTER Qualifiers: Encounter type: subsequent encounter Qualified Code(s): W19.XXXD - Unspecified fall, subsequent encounter (2) Seizure Assessment/Plan: per neuro on kepra Code(s): R56.9 - UNSPECIFIED CONVULSIONS (3) Traumatic hematoma of left upper arm Assessment/Plan: Improved vascular on nurse outreach case manager Code(s): S40.022A - CONTUSION OF LEFT UPPER ARM, INITIAL ENCOUNTER Qualifiers: Encounter type: initial encounter Qualified Code(s): S40.022A - Contusion of left upper arm, initial encounter (4) CAD (coronary artery disease) Assessment/Plan: -Statin -BB -On Isosorbide -Cardiac cath in the past with EF >40% -has ICM with permanent Cardiac resynchronization therapy defibrillator (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) as 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 in the past Code(s): I25.10 - ATHSCL HEART DISEASE OF [place] CORONARY ARTERY W/O ANG PCTRS Qualifiers: Coronary Disease-Associated Artery/Lesion type: [place] artery Associated angina: with stable angina (5) COPD (chronic obstructive pulmonary disease) Assessment/Plan: -On non re-breather now -CXR unremarkable -Pulmonary consult -Bronchodilators -Prednisone 10 mg po BID at home, would continue Code(s): J44.9 - CHRONIC OBSTRUCTIVE PULMONARY DISEASE, UNSPECIFIED Qualifiers: COPD type: COPD with acute exacerbation Qualified Code(s): J44.1 - Chronic obstructive pulmonary disease with (acute) exacerbation (6) Paroxysmal atrial fibrillation Assessment/Plan: -On eliquis at home--on hold -Hold for another 24 hours due to LUE hematoma -Monitor H/H for any drop suggesting blood loss Code(s): I48.0 - PAROXYSMAL ATRIAL FIBRILLATION (7) Presence of cardiac pacemaker Code(s): Z95.0 - PRESENCE OF CARDIAC PACEMAKER (8) Acute kidney injury Assessment/Plan: -Nephrology consult -monitor Cr Laboratory Tests 11/27/17 11/30/17 05:30 05:30 BUN 66 H 51 H Creatinine 1.4 H 1.3 Code(s): N17.9 - ACUTE KIDNEY FAILURE, UNSPECIFIED
--- NOTE | 2017-11-30 16:58 | CONSULT ---
Consult - text type - Consultation Consultation Note: NEUROLOGY FOLLOW-UP: Events reviewed. Dr. Melo's coverage consultation is greatly appreciated. 77 yo RH man. Multiple medicals including AFib- was on coumadin Walked with walker and cane. CT (reviewed) indicates OLD left MCA-territory infarct and old right frontal infarct. Pt was admitted after fall associated with seizure-like shaking of the left arm. reported a similar prior episode. Pt started on Keppra 250 BID this AM./ EXAM: No bruits. Cor regular. Left arm swollen, ecchymotic NEURO: Awake, alert. [facility], [place]. No month or year. Severe dysarthria Reduced gag Dense Right Homonomous hemianopsia Right drift. LEFT APB, First DI, and finger extensors 5/5 Bilateral [place]is. IMP: s/p B/L CVA's Mild-Mod OMS Possible seizure disorder. No evidence for compartment syndrome left arm. SUGGEST: Increase kepra to 500 mg q12 hrs on Saturday. Resume anticoagulation as soon as safe (re: left arm hematoma). Mobilize patient/ bedside PT Feed cautiously, while patient is upright and observed. Thank you very much, Salvatore Rodriguez MD
[2017-11-30] MEDS: amLODIPine BESYLATE 2.5 MG TABLET (FP) PO SCH (18:52)
[2017-11-30] MEDS: ATORVASTATIN CA 20 MG TABLET (FP) PO SCH (21:27)
[2017-11-30] MEDS: CHLORHEXIDINE GLUCONATE 4% CLEANSER FOR DECOLONIZATION TP SCH ×2 (22:00)
[2017-11-30] MEDS ORDERED: NITROGLYCERIN SUBLINGUAL 1/150 0.4 MG TAB ONE (22:55)
[2017-11-30] MEDS: morphine SULFATE 4 MG/ML VIAL IVPUSH PRN (23:43)
[2017-12-01] MEDS: PREGABALIN 100 MG CAPSULE PO SCH ×3 (06:12→22:09)
[2017-12-01 06:26] LABS: HEMATOCRIT 31.8 % (35.4-49); HEMOGLOBIN 10.3 GM/dL (11.7-16.9); MCH 27.7 pg (25.7-33.7); MCHC 32.5 g/dl (32.0-35.9); MEAN CELL VOLUME 85.5 fl (80-96); MEAN PLT VOLUME 11.6 fl (7.5-11.1); PLATELET COUNT 96 K/MM3 (134-434); RBC 3.72 M/mm3 (4.00-5.60); WHITE BLOOD COUNT 8.1 K/mm3 (4.0-10.0)
[2017-12-01 06:40] LABS: ANION GAP 10 MMOL/L (8-16); BLOOD UREA NITROGEN 44 mg/dL (7-18); CALCIUM 8.1 mg/dL (8.5-10.1); CHLORIDE 105 mmol/L (98-107); CO2 26 mmol/L (21-32); CREATININE 1.1 mg/dL (0.7-1.3); GLUCOSE,RANDOM 76 mg/dL (74-106); MAGNESIUM 2.4 mg/dL (1.8-2.4); PHOSPHOROUS 2.9 mg/dL (2.5-4.9); POTASSIUM 4.7 mmol/L (3.5-5.1); SODIUM 141 mmol/L (136-145)
--- NOTE | 2017-12-01 08:03 | PN ---
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 (short form) - Note 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: alert nad on high flow oxygen no complaints today Vital Signs Period Temp Pulse Resp BP Sys/Varghese Pulse Ox Last 24 Hr 97.6 F-98.2 F 60-78 14-19 115-158/65-94 89-96 cor-rrr lungs clear, decreased bs at bases abd soft,nt ext left arm hematoma unchanged better movement of the hand CBC, BMP 12/01/17 05:30 12/01/17 05:30 Microbiology 11/25/17 17:00 Blood - Peripheral Venous Blood Culture - Final NO GROWTH AFTER 5 DAYS INCUBATION 11/26/17 16:40 Blood - Peripheral Venous Blood Culture - Preliminary NO GROWTH OBTAINED AFTER 96 HOURS, INCUBATION TO CONTINUE FOR 1 DAYS. 11/26/17 14:20 Blood - Peripheral Venous Blood Culture - Preliminary NO GROWTH OBTAINED AFTER 96 HOURS, INCUBATION TO CONTINUE FOR 1 DAYS. 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
[2017-12-01] MEDS: ALBUTEROL SO4 2.5/IPRATROPIUM 0.5 INH SOL 3 ML VIAL.NEB. NEB SCH ×4 (08:04→20:46)
[2017-12-01] MEDS ORDERED: DEXTROSE 5%-WATER 100 ML IVPB ONE (08:28)
--- NOTE | 2017-12-01 08:43 | PN ---
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, Physician - Current Medication List Current Medications: Active Medications Acetaminophen (Tylenol -) 650 mg PO Q6H PRN PRN Reason: FEVER Last Admin: 11/30/17 10:38 Dose: 650 mg Albuterol/Ipratropium (Duoneb -) 1 amp NEB RQID [facility] Last Admin: 12/01/17 08:04 Dose: 1 amp Amlodipine Besylate (Norvasc -) 2.5 mg PO DAILY [facility] Last Admin: 11/30/17 18:52 Dose: 2.5 mg Atorvastatin Calcium (Lipitor -) 20 mg PO HS [facility] Last Admin: 11/30/17 21:27 Dose: 20 mg Chlorhexidine Gluconate (Hibiclens For Decolonization -) 1 applic TP HS [facility] Last Admin: 11/30/17 22:00 Dose: 1 applic Duloxetine HCl (Cymbalta -) 60 mg PO DAILY [facility] Last Admin: 11/30/17 10:23 Dose: 60 mg Fluocinonide (Lidex 0.05% Cream -) 1 applic TP DAILY [facility] Last Admin: 11/30/17 10:26 Dose: 1 applic Furosemide (Lasix -) 20 mg PO DAILY [facility] Last Admin: 11/30/17 10:24 Dose: 20 mg Ceftriaxone Sodium 2 gm/ (Dextrose) 100 mls @ 200 mls/hr IVPB DAILY [facility]; Protocol Last Admin: 11/30/17 10:29 Dose: 200 mls/hr Isosorbide Dinitrate (Isordil -) 10 mg PO BIDISORDIL [facility] Last Admin: 11/30/17 18:52 Dose: 10 mg Levetiracetam (Keppra -) 250 mg PO BID [facility] Last Admin: 11/30/17 21:27 Dose: 250 mg Lisinopril (Prinivil) 40 mg PO DAILY [facility] Last Admin: 11/30/17 10:25 Dose: 40 mg Lorazepam (Ativan Injection -) 1 mg IM Q8H PRN PRN Reason: AGITATION Metoprolol Succinate (Toprol Xl -) 25 mg PO BID [facility] Last Admin: 11/30/17 21:27 Dose: 25 mg Morphine Sulfate (Morphine Sulfate) 4 mg IVPUSH Q6H PRN PRN Reason: PAIN LEVEL 7 - 10 Last Admin: 11/30/17 23:43 Dose: 4 mg Nystatin (Nystop Powder -) 1 applic TP DAILY [facility] Last Admin: 11/30/17 10:27 Dose: 1 applic Pantoprazole Sodium (Protonix -) 40 mg PO DAILY [facility] Last Admin: 11/30/17 10:25 Dose: 40 mg Prednisone (Deltasone -) 30 mg PO DAILY [facility] Last Admin: 11/30/17 10:30 Dose: Not Given Pregabalin (Lyrica -) 100 mg PO TID [facility] Last Admin: 12/01/17 06:12 Dose: 100 mg - Objective Vital Signs: Vital Signs Temperature 97.8 F 12/01/17 06:00 Pulse Rate 75 12/01/17 08:02 Respiratory Rate 16 12/01/17 06:00 Blood Pressure 123/78 12/01/17 06:00 O2 Sat by Pulse Oximetry (%) 97 12/01/17 08:02 Cardiovascular: Yes: S1, S2 Respiratory: Yes: Regular, CTA Bilaterally Gastrointestinal: Yes: Normal Bowel Sounds, Soft Edema: Yes (less) Labs: CBC, BMP 12/01/17 05:30 12/01/17 05:30 INR, PTT INR 1.04 (0.83-1.09) 11/27/17 05:30 Problem List - Problems (1) Fall Assessment/Plan: -Physical therapy -CT head negative -Neurology consult -Safety precautions Code(s): W19.XXXA - UNSPECIFIED FALL, INITIAL ENCOUNTER Qualifiers: Encounter type: subsequent encounter Qualified Code(s): W19.XXXD - Unspecified fall, subsequent encounter (2) Seizure Assessment/Plan: per neuro on kepra Code(s): R56.9 - UNSPECIFIED CONVULSIONS (3) Traumatic hematoma of left upper arm Assessment/Plan: Improved vascular on caser Code(s): S40.022A - CONTUSION OF LEFT UPPER ARM, INITIAL ENCOUNTER Qualifiers: Encounter type: initial encounter Qualified Code(s): S40.022A - Contusion of left upper arm, initial encounter (4) CAD (coronary artery disease) Assessment/Plan: -Statin -BB -On Isosorbide -Cardiac cath in the past with EF >40% -has ICM with permanent Cardiac resynchronization therapy defibrillator (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) as 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 in the past Code(s): I25.10 - ATHSCL HEART DISEASE OF [place] CORONARY ARTERY W/O ANG PCTRS Qualifiers: Coronary Disease-Associated Artery/Lesion type: [place] artery Associated angina: with stable angina (5) COPD (chronic obstructive pulmonary disease) Assessment/Plan: -On non re-breather now -CXR unremarkable -Pulmonary consult -Bronchodilators -Prednisone 10 mg po BID at home, would continue Code(s): J44.9 - CHRONIC OBSTRUCTIVE PULMONARY DISEASE, UNSPECIFIED Qualifiers: COPD type: COPD with acute exacerbation Qualified Code(s): J44.1 - Chronic obstructive pulmonary disease with (acute) exacerbation (6) Paroxysmal atrial fibrillation Assessment/Plan: -Resume ac -Monitor H/H for any drop suggesting blood loss Code(s): I48.0 - PAROXYSMAL ATRIAL FIBRILLATION (7) Presence of cardiac pacemaker Code(s): Z95.0 - PRESENCE OF CARDIAC PACEMAKER (8) Acute kidney injury Assessment/Plan: -Nephrology consult -monitor Cr Laboratory Tests 11/27/17 11/30/17 05:30 05:30 BUN 66 H 51 H Creatinine 1.4 H 1.3 Code(s): N17.9 - ACUTE KIDNEY FAILURE, UNSPECIFIED
[2017-12-01] MEDS ORDERED: PT OWN MED DRAWER 7, Y5N ONE (09:00)
--- NOTE | 2017-12-01 09:18 | PN ---
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 (short form) - Note 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: Seen and examined in the ICU Attempted to wean HFNC FiO2 with desaturation and c/o CP in PM, improved w/ morphine 4mg x1. STAT LE dopplers done negative for DVT troponin 0.1 this AM EKG unchanged overnight afebrile net negative w/ lasix changed solu-medrol to prednisone 30mg daily Current Medications Acetaminophen (Tylenol -) 650 mg PO Q6H PRN PRN Reason: FEVER Last Admin: 11/30/17 10:38 Dose: 650 mg Albuterol/Ipratropium (Duoneb -) 1 amp NEB RQID [facility] Last Admin: 12/01/17 08:04 Dose: 1 amp Amlodipine Besylate (Norvasc -) 2.5 mg PO DAILY [facility] Last Admin: 11/30/17 18:52 Dose: 2.5 mg Atorvastatin Calcium (Lipitor -) 20 mg PO HS [facility] Last Admin: 11/30/17 21:27 Dose: 20 mg Chlorhexidine Gluconate (Hibiclens For Decolonization -) 1 applic TP HS [facility] Last Admin: 11/30/17 22:00 Dose: 1 applic Duloxetine HCl (Cymbalta -) 60 mg PO DAILY [facility] Last Admin: 11/30/17 10:23 Dose: 60 mg Fluocinonide (Lidex 0.05% Cream -) 1 applic TP DAILY [facility] Last Admin: 11/30/17 10:26 Dose: 1 applic Furosemide (Lasix -) 20 mg PO DAILY [facility] Last Admin: 11/30/17 10:24 Dose: 20 mg Ceftriaxone Sodium 2 gm/ (Dextrose) 100 mls @ 200 mls/hr IVPB DAILY [facility]; Protocol Last Admin: 11/30/17 10:29 Dose: 200 mls/hr Isosorbide Dinitrate (Isordil -) 10 mg PO BIDISORDIL [facility] Last Admin: 11/30/17 18:52 Dose: 10 mg Levetiracetam (Keppra -) 250 mg PO BID [facility] Last Admin: 11/30/17 21:27 Dose: 250 mg Lisinopril (Prinivil) 40 mg PO DAILY [facility] Last Admin: 11/30/17 10:25 Dose: 40 mg Lorazepam (Ativan Injection -) 1 mg IM Q8H PRN PRN Reason: AGITATION Metoprolol Succinate (Toprol Xl -) 25 mg PO BID [facility] Last Admin: 11/30/17 21:27 Dose: 25 mg Morphine Sulfate (Morphine Sulfate) 4 mg IVPUSH Q6H PRN PRN Reason: PAIN LEVEL 7 - 10 Last Admin: 11/30/17 23:43 Dose: 4 mg Nystatin (Nystop Powder -) 1 applic TP DAILY [facility] Last Admin: 11/30/17 10:27 Dose: 1 applic Pantoprazole Sodium (Protonix -) 40 mg PO DAILY [facility] Last Admin: 11/30/17 10:25 Dose: 40 mg Prednisone (Deltasone -) 30 mg PO DAILY [facility] Last Admin: 11/30/17 10:30 Dose: Not Given Pregabalin (Lyrica -) 100 mg PO TID [facility] Last Admin: 12/01/17 06:12 Dose: 100 mg Vital Signs Period Temp Pulse Resp BP Sys/Varghese Pulse Ox Last 24 Hr 97.6 F-98.2 F 60-78 14-19 115-158/65-94 89-97 Intake & Output 11/28/17 11/29/17 11/30/17 12/01/17 23:59 23:59 23:59 23:59 Intake Total 464 750 550 100 Output Total 354 490 1092 300 Balance - -200 Weight 70.5 kg 71.4 kg 70.2 kg 69.5 kg General: awake and without distress this AM HEENT: surgical pupil, no JVD noted CV: paced Pulm: faint exp wheeze and crackles in bilateral bases Abd: SNTND Ext: left UE large stable hematoma, LE trace edema Neuro: awake, alert, BARRAZA CBC, BMP 12/01/17 05:30 12/01/17 05:30 Troponin, BNP 11/30/17 12/01/17 23:30 05:30 Troponin I < 0.02 0.10 H D ASSESSMENT AND PLAN: Acute on Chronic Hypoxic Respiratory Failure Left Arm Hematoma Seizures Acute COPD Exacerbation LV Diastolic Dysfunction Atrial Fibrillation Acute on Chronic Renal Failure h/o CVA CAD HTN Hyperlipidemia - monitor hematoma, surgery following - on empiric antibiotics for 2 week course per ID: ceftriaxone - taper prednisone currently 30mg daily, at home on 10mg BID - inhaled bronchodilators - O2 to keep Spo2 >89% - CXR today - continue high flow O2: wean Fio2 an d flow as tolerated - continue home lasix, for goal net out - monitor urine output, creatinine - trend troponin - rate control - holding anticoagulation, will ask surgery today about starting UFH sq - continue ICU monitoring Eusebia PATEL Pulm/CCM CCT: 35m
[2017-12-01] MEDS: ISOSORBIDE DINITRATE 10 MG TABLET (FP) PO SCH ×2 (09:22→17:01)
[2017-12-01] MEDS: CEFTRIAXONE 2 GM in DEXTROSE 5%-WATER 100 ML IVPB SCH (09:24)
[2017-12-01] MEDS: levETIRAcetam 500 MG TABLET (FP) PO SCH ×2 (09:25→22:09)
[2017-12-01] MEDS: predniSONE 10 MG TABLET (UD) PO SCH (09:25)
[2017-12-01] MEDS: LISINOPRIL 20 MG TABLET (FP) PO SCH (09:25)
[2017-12-01] MEDS: FUROSEMIDE 20 MG TABLET (FP) PO SCH (09:27)
[2017-12-01] MEDS: DULoxetine HCL 30 MG CAPSULE.DR (FP) PO SCH (09:27)
[2017-12-01] MEDS: PANTOPRAZOLE 40 MG TABLET (FP) PO SCH (09:27)
[2017-12-01] MEDS: amLODIPine BESYLATE 2.5 MG TABLET (FP) PO SCH (09:28)
[2017-12-01] MEDS: metoPROLOL SUCCINATE 25 MG TAB.SR.24H (FP) PO SCH ×2 (09:28→22:11)
[2017-12-01] MEDS: FLUOCINONIDE 0.05% CREAM (15 GM TUBE) TP SCH (09:30)
[2017-12-01] MEDS: NYSTATIN POWDER 100,000 UNITS/GM - 15 GM TOPICAL POWDER TP SCH (09:30)
--- NOTE | 2017-12-01 10:24 | PN ---
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, Physician Chief Complaint: alert, no distress History of Present Illness: TELE: Paced with few episodes NSVT - Current Medication List Current Medications: Active Medications Acetaminophen (Tylenol -) 650 mg PO Q6H PRN PRN Reason: FEVER Last Admin: 11/30/17 10:38 Dose: 650 mg Albuterol/Ipratropium (Duoneb -) 1 amp NEB RQID [facility] Last Admin: 12/01/17 08:04 Dose: 1 amp Amlodipine Besylate (Norvasc -) 2.5 mg PO DAILY [facility] Last Admin: 12/01/17 09:28 Dose: 2.5 mg Atorvastatin Calcium (Lipitor -) 20 mg PO HS [facility] Last Admin: 11/30/17 21:27 Dose: 20 mg Chlorhexidine Gluconate (Hibiclens For Decolonization -) 1 applic TP HS [facility] Last Admin: 11/30/17 22:00 Dose: 1 applic Duloxetine HCl (Cymbalta -) 60 mg PO DAILY [facility] Last Admin: 12/01/17 09:27 Dose: 60 mg Fluocinonide (Lidex 0.05% Cream -) 1 applic TP DAILY [facility] Last Admin: 12/01/17 09:30 Dose: 1 applic Furosemide (Lasix -) 20 mg PO DAILY [facility] Last Admin: 12/01/17 09:27 Dose: 20 mg Ceftriaxone Sodium 2 gm/ (Dextrose) 100 mls @ 200 mls/hr IVPB DAILY [facility]; Protocol Last Admin: 12/01/17 09:24 Dose: 200 mls/hr Isosorbide Dinitrate (Isordil -) 10 mg PO BIDISORDIL [facility] Last Admin: 12/01/17 09:22 Dose: 10 mg Levetiracetam (Keppra -) 250 mg PO BID [facility] Last Admin: 12/01/17 09:25 Dose: 250 mg Lisinopril (Prinivil) 40 mg PO DAILY [facility] Last Admin: 12/01/17 09:25 Dose: 40 mg Lorazepam (Ativan Injection -) 1 mg IM Q8H PRN PRN Reason: AGITATION Metoprolol Succinate (Toprol Xl -) 25 mg PO BID [facility] Last Admin: 12/01/17 09:28 Dose: 25 mg Morphine Sulfate (Morphine Sulfate) 4 mg IVPUSH Q6H PRN PRN Reason: PAIN LEVEL 7 - 10 Last Admin: 11/30/17 23:43 Dose: 4 mg Nystatin (Nystop Powder -) 1 applic TP DAILY [facility] Last Admin: 12/01/17 09:30 Dose: 1 applic Pantoprazole Sodium (Protonix -) 40 mg PO DAILY [facility] Last Admin: 12/01/17 09:27 Dose: 40 mg Prednisone (Deltasone -) 30 mg PO DAILY [facility] Last Admin: 12/01/17 09:25 Dose: 30 mg Pregabalin (Lyrica -) 100 mg PO TID [facility] Last Admin: 12/01/17 06:12 Dose: 100 mg - Objective Vital Signs: Vital Signs Temperature 97.8 F 12/01/17 06:00 Pulse Rate 75 12/01/17 08:02 Respiratory Rate 14 12/01/17 08:00 Blood Pressure 129/66 12/01/17 08:00 O2 Sat by Pulse Oximetry (%) 97 12/01/17 08:02 Constitutional: Yes: No Distress Cardiovascular: Yes: Regular Rate and Rhythm Respiratory: Yes: Other (decreased breath sounds at bases) Edema: Yes Edema: LLE: 1+, RLE: 1+ Neurological: Yes: Alert Labs: CBC, BMP 12/01/17 05:30 12/01/17 05:30 INR, PTT INR 1.04 (0.83-1.09) 11/27/17 05:30 - ....Imaging EKG: Image Reviewed Assessment/Plan IMP: ASHD NSVT HTN PAD ICM s/p TALENT RECRUITER-P Multiple aneurysms AF Traumatic hematoma, upper extremity Thrombocytopenia Fall COPD, acute exacerbation Gram + bacteremia: 1 bottle REC: 1. Holding AC for now in setting of LUE hematoma and progressive thrombocytopenia. Heme Evaluation appreciated. Platelets slightly improved. 2. Steroid taper 3. Abx as per ID , serial cultures have been negative. WBC is down. Duration of abx as per ID. Patient would be at elevated risk for GOPI due to his hypoxia and respiratory status. 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 He is not a surgical candidate. 4. Cont Toprol for NSVT: keep K+>4 and Mg2+>2. Patient refused ICD, opted for TALENT RECRUITER-P. 5. Low dose of amlodipine in evening seems to have improved BP.
[2017-12-01] MEDS: ACETAMINOPHEN 325 MG TABLET (FP) PO PRN (13:21)
--- NOTE | 2017-12-01 13:21 | PN ---
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 (short form) - Note 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: 1. CKD 2. COPD exacerbation 3. AAA 4. hx CVA 5. a-fib 6. HTN 7. insomnia 8. hypoxic resp failure 9. CAD 10. BPH 12. microscopic hematuria 13. hypoxia Lungs diffuse rhonchi Heart s1s2 Abd soft Ext Lue / dusky swelling Current Medications Acetaminophen (Tylenol -) 650 mg PO Q6H PRN PRN Reason: FEVER Last Admin: 11/30/17 10:38 Dose: 650 mg Albuterol/Ipratropium (Duoneb -) 1 amp NEB RQID [facility] Last Admin: 12/01/17 11:41 Dose: 1 amp Amlodipine Besylate (Norvasc -) 2.5 mg PO DAILY [facility] Last Admin: 12/01/17 09:28 Dose: 2.5 mg Atorvastatin Calcium (Lipitor -) 20 mg PO HS [facility] Last Admin: 11/30/17 21:27 Dose: 20 mg Chlorhexidine Gluconate (Hibiclens For Decolonization -) 1 applic TP HS [facility] Last Admin: 11/30/17 22:00 Dose: 1 applic Duloxetine HCl (Cymbalta -) 60 mg PO DAILY [facility] Last Admin: 12/01/17 09:27 Dose: 60 mg Fluocinonide (Lidex 0.05% Cream -) 1 applic TP DAILY [facility] Last Admin: 12/01/17 09:30 Dose: 1 applic Furosemide (Lasix -) 20 mg PO DAILY [facility] Last Admin: 12/01/17 09:27 Dose: 20 mg Ceftriaxone Sodium 2 gm/ (Dextrose) 100 mls @ 200 mls/hr IVPB DAILY [facility]; Protocol Last Admin: 12/01/17 09:24 Dose: 200 mls/hr Isosorbide Dinitrate (Isordil -) 10 mg PO BIDISORDIL [facility] Last Admin: 12/01/17 09:22 Dose: 10 mg Levetiracetam (Keppra -) 250 mg PO BID [facility] Last Admin: 12/01/17 09:25 Dose: 250 mg Lisinopril (Prinivil) 40 mg PO DAILY [facility] Last Admin: 12/01/17 09:25 Dose: 40 mg Lorazepam (Ativan Injection -) 1 mg IM Q8H PRN PRN Reason: AGITATION Metoprolol Succinate (Toprol Xl -) 25 mg PO BID [facility] Last Admin: 12/01/17 09:28 Dose: 25 mg Morphine Sulfate (Morphine Sulfate) 4 mg IVPUSH Q6H PRN PRN Reason: PAIN LEVEL 7 - 10 Last Admin: 11/30/17 23:43 Dose: 4 mg Nystatin (Nystop Powder -) 1 applic TP DAILY [facility] Last Admin: 12/01/17 09:30 Dose: 1 applic Pantoprazole Sodium (Protonix -) 40 mg PO DAILY [facility] Last Admin: 12/01/17 09:27 Dose: 40 mg Prednisone (Deltasone -) 30 mg PO DAILY [facility] Last Admin: 12/01/17 09:25 Dose: 30 mg Pregabalin (Lyrica -) 100 mg PO TID [facility] Last Admin: 12/01/17 06:12 Dose: 100 mg Last Vital Signs Temp Pulse Resp BP Pulse Ox 97.8 F 75 16 119/55 91 L 12/01/17 06:00 12/01/17 10:00 12/01/17 10:00 12/01/17 10:00 12/01/17 11:41 Lungs decr BS throughout Heart s1s2 Abd soft Ext no edema CBC, BMP 12/01/17 05:30 12/01/17 05:30 IMP- CKD Prerenal azotemia improved Plan- ensure hydration monitor renal function
[2017-12-01] MEDS: morphine SULFATE 4 MG/ML VIAL IVPUSH PRN (16:57)
[2017-12-01] MEDS: RIVAROXABAN 20 MG TABLET PO SCH (17:01)
[2017-12-01] MEDS: ATORVASTATIN CA 20 MG TABLET (FP) PO SCH (22:10)
[2017-12-01] MEDS: CHLORHEXIDINE GLUCONATE 4% CLEANSER FOR DECOLONIZATION TP SCH (22:10)
[2017-12-02] MEDS: PREGABALIN 100 MG CAPSULE PO SCH ×3 (05:46→21:41)
--- NOTE | 2017-12-02 06:43 | PN ---
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, Physician Chief Complaint: left arm swelling and bruising History of Present Illness: 77 yo male PMH of AAA repair 2012, CVA, TAA, afib, DVT, CAD, CHF, COPD, CKD, BPH , PPM, with Btr hypertension, hyperlipidemia, knee replacement and cataract repair who presents to the emergency department via EMS with a seizure like activity prior to arrival. Improved pain in the left arm compared to initial assessment. arm elevated on a pillow. - Current Medication List Current Medications: Active Medications Acetaminophen (Tylenol -) 650 mg PO Q6H PRN PRN Reason: FEVER Last Admin: 12/01/17 13:21 Dose: 650 mg Albuterol/Ipratropium (Duoneb -) 1 amp NEB RQID [facility] Last Admin: 12/01/17 20:46 Dose: 1 amp Amlodipine Besylate (Norvasc -) 2.5 mg PO DAILY [facility] Last Admin: 12/01/17 09:28 Dose: 2.5 mg Atorvastatin Calcium (Lipitor -) 20 mg PO HS [facility] Last Admin: 12/01/17 22:10 Dose: 20 mg Chlorhexidine Gluconate (Hibiclens For Decolonization -) 1 applic TP HS [facility] Last Admin: 12/01/17 22:10 Dose: 1 applic Duloxetine HCl (Cymbalta -) 60 mg PO DAILY [facility] Last Admin: 12/01/17 09:27 Dose: 60 mg Fluocinonide (Lidex 0.05% Cream -) 1 applic TP DAILY [facility] Last Admin: 12/01/17 09:30 Dose: 1 applic Furosemide (Lasix -) 20 mg PO DAILY [facility] Last Admin: 12/01/17 09:27 Dose: 20 mg Ceftriaxone Sodium 2 gm/ (Dextrose) 100 mls @ 200 mls/hr IVPB DAILY [facility]; Protocol Last Admin: 12/01/17 09:24 Dose: 200 mls/hr Isosorbide Dinitrate (Isordil -) 10 mg PO BIDISORDIL [facility] Last Admin: 12/01/17 17:01 Dose: 10 mg Levetiracetam (Keppra -) 250 mg PO BID [facility] Last Admin: 12/01/17 22:09 Dose: 250 mg Lisinopril (Prinivil) 40 mg PO DAILY [facility] Last Admin: 12/01/17 09:25 Dose: 40 mg Metoprolol Succinate (Toprol Xl -) 25 mg PO BID [facility] Last Admin: 12/01/17 22:11 Dose: 25 mg Morphine Sulfate (Morphine Sulfate) 4 mg IVPUSH Q6H PRN PRN Reason: PAIN LEVEL 7 - 10 Last Admin: 12/01/17 16:57 Dose: 4 mg Nystatin (Nystop Powder -) 1 applic TP DAILY [facility] Last Admin: 12/01/17 09:30 Dose: 1 applic Pantoprazole Sodium (Protonix -) 40 mg PO DAILY [facility] Last Admin: 12/01/17 09:27 Dose: 40 mg Prednisone (Deltasone -) 30 mg PO DAILY [facility] Last Admin: 12/01/17 09:25 Dose: 30 mg Pregabalin (Lyrica -) 100 mg PO TID [facility] Last Admin: 12/02/17 05:46 Dose: 100 mg Rivaroxaban (Xarelto -) 20 mg PO DAILY [facility] Last Admin: 12/01/17 17:01 Dose: 20 mg - Objective Vital Signs: Vital Signs Temperature 97 F L 12/02/17 02:00 Pulse Rate 71 12/02/17 04:00 Respiratory Rate 20 12/02/17 04:00 Blood Pressure 84/64 12/02/17 04:00 O2 Sat by Pulse Oximetry (%) 93 L 12/01/17 23:07 Vital Signs Period Temp Pulse Resp BP Sys/Varghese Pulse Ox Last 24 Hr 97 F-97.8 F 67-89 13-20 84-129/51-67 84-97 Intake & Output 12/01/17 12/01/17 12/02/17 15:59 23:59 07:59 Intake Total 660 120 60 Output Total 500 300 400 Balance 160 -180 -340 Intake: IVPB 100 0 0 Oral 560 120 60 Output: Urine 500 300 400 Void 500 300 400 Other: Voiding Method Urinal Urinal Bowel Movement No No Body Mass Index (BMI) 23.9 Constitutional: Yes: Well Nourished, No Distress, Calm Eyes: Yes: Conjunctiva Clear, EOM Intact HENT: Yes: Atraumatic, Normocephalic Neck: Yes: Supple, Trachea Midline Cardiovascular: Yes: Regular Rate and Rhythm, S1, S2 Respiratory: Yes: Regular, CTA Bilaterally Gastrointestinal: Yes: Normal Bowel Sounds, Soft. No: Tenderness, Tenderness, Rebound Genitourinary: No: CVA Tenderness - Left, CVA Tenderness - Right Musculoskeletal: Yes: Joint Stiffness, Joint Swelling Extremities: No: Cool, Cyanosis Edema: Yes Edema: LUE: 1+ Peripheral Pulses: Left Radial: 2+, Right Radial: 2+, Left Doralis Pedis: 2+, Right Dorsalis Pedis: 2+ Integumentary: Yes: Bruising (LUE). No: Erythema, Incision, Jaundice Wound/Incision: No: Draining, Reddened, Bleeding Neurological: Yes: Alert, Oriented Psychiatric: Yes: Alert, Oriented Labs: INR, PTT INR 1.04 (0.83-1.09) 11/27/17 05:30 CBC,CMP WBC 8.1 K/mm3 (4.0-10.0) 12/01/17 05:30 RBC 3.72 M/mm3 (4.00-5.60) L 12/01/17 05:30 Hgb 10.3 GM/dL (11.7-16.9) L 12/01/17 05:30 Hct 31.8 % (35.4-49) L 12/01/17 05:30 MCV 85.5 fl (80-96) 12/01/17 05:30 MCH 27.7 pg (25.7-33.7) 12/01/17 05:30 MCHC 32.5 g/dl (32.0-35.9) 12/01/17 05:30 RDW 18.0 % (11.9-15.9) H 12/01/17 05:30 Plt Count 96 K/MM3 (134-434) L 12/01/17 05:30 MPV 11.6 fl (7.5-11.1) H D 12/01/17 05:30 Absolute Neuts (auto) 7.2 K/mm3 (1.5-8.0) 11/30/17 05:30 Total Counted 100 11/26/17 05:30 Neutrophils % 95.9 % (42.8-82.8) H 11/30/17 05:30 Neutrophils % (Manual) 96.0 % (42.8-82.8) H 11/30/17 05:30 Band Neutrophils % 0.0 % 11/30/17 05:30 Lymphocytes % 1.9 % (8-40) L D 11/30/17 05:30 Lymphocytes % (Manual) 2.0 % (8-40) L D 11/30/17 05:30 Monocytes % 2.1 % (3.8-10.2) L 11/30/17 05:30 Monocytes % (Manual) 0 % (3.8-10.2) L D 11/30/17 05:30 Eosinophils % 0.0 % (0-4.5) 11/30/17 05:30 Eosinophils % (Manual) 0.0 % (0-4.5) 11/30/17 05:30 Basophils % 0.1 % (0-2.0) D 11/30/17 05:30 Basophils % (Manual) 1.0 % (0-2.0) D 11/30/17 05:30 Myelocytes % (Man) 0 % (0-2) 11/30/17 05:30 Promyelocytes % (Man) 0 % (0-2) 11/30/17 05:30 Blast Cells % (Manual) 0 % (0-0) 11/30/17 05:30 Nucleated RBC % 0 % (0-0) 11/30/17 05:30 Metamyelocytes 0 % (0-2) 11/30/17 05:30 Differential Comment Man diff performed 11/23/17 21:35 Hypochromia 0 11/30/17 05:30 Toxic Granulation 0 11/27/17 05:30 [place] Bodies 0 11/27/17 05:30 Platelet Estimate Decreased 11/30/17 05:30 Platelet Comment 11/23/17 21:35 Polychromasia 1+ 11/30/17 05:30 Poikilocytosis 1+ 11/30/17 05:30 Basophilic Stippling 0 11/27/17 05:30 Anisocytosis 1+ 11/30/17 05:30 Microcytosis 0 11/30/17 05:30 Macrocytosis 0 11/30/17 05:30 Spherocytes 0 11/27/17 05:30 Sickle Cells 0 11/27/17 05:30 Target Cells 0 11/27/17 05:30 Tear Drop Cells 0 11/27/17 05:30 Ovalocytes 0 11/27/17 05:30 Stomatocytes 0 11/27/17 05:30 Helmet Cells 0 11/27/17 05:30 [place] Bodies 0 11/27/17 05:30 [place] Rings 0 11/27/17 05:30 [place] Cells 0 11/27/17 05:30 Acanthocytes (Spur) 0 11/27/17 05:30 Rouleaux 0 11/27/17 05:30 Fragmented RBCs 0 11/27/17 05:30 Schistocytes 0 11/27/17 05:30 Sodium 141 mmol/L (136-145) 12/01/17 05:30 Potassium 4.7 mmol/L (3.5-5.1) 12/01/17 05:30 Chloride 105 mmol/L (98-107) 12/01/17 05:30 Carbon Dioxide 26 mmol/L (21-32) 12/01/17 05:30 Anion Gap 10 MMOL/L (8-16) 12/01/17 05:30 BUN 44 mg/dL (7-18) H 12/01/17 05:30 Creatinine 1.1 mg/dL (0.7-1.3) 12/01/17 05:30 Creat Clearance w eGFR > 60 (>60) 12/01/17 05:30 Random Glucose 76 mg/dL (74-106) D 12/01/17 05:30 Hemoglobin A1c % 6.0 % (4.8-6.0) D 11/24/17 07:25 Serum Osmolality 312 mosm/kg (278-305) H 11/26/17 07:41 Lactic Acid 1.6 mmol/L (0.0-2.0) 11/25/17 17:15 Calcium 8.1 mg/dL (8.5-10.1) L 12/01/17 05:30 Phosphorus 2.9 mg/dL (2.5-4.9) D 12/01/17 05:30 Magnesium 2.4 mg/dL (1.8-2.4) 12/01/17 05:30 Total Bilirubin 0.5 mg/dL (0.2-1.0) 11/30/17 05:30 AST 21 U/L (15-37) D 11/30/17 05:30 ALT 59 U/L (12-78) 11/30/17 05:30 Alkaline Phosphatase 41 U/L (45-117) L 11/30/17 05:30 Creatine Kinase 57 IU/L (39-308) 12/01/17 05:30 Troponin I 0.14 ng/ml (0.00-0.05) H 12/01/17 20:45 B-Natriuretic Peptide 1341.50 pg/ml (5-450) H 11/25/17 17:45 Total Protein 5.1 g/dl (6.4-8.2) L 11/30/17 05:30 Albumin 2.4 g/dl (3.4-5.0) L 11/30/17 05:30 Vitamin B12 578 pg/ml (180-914) D 11/30/17 05:30 TSH 0.21 uIU/ml (0.358-3.74) L D 11/30/17 05:30 Free T4 0.80 ng/dl (0.76-1.16) 11/30/17 05:30 Problem List - Problems (1) Traumatic hematoma of left upper arm Assessment/Plan: 77 yo RHD male MMP s/p L CTR [address] Charlie Gilman, low index of suspicion for acute compartment syndrome, hematomas have been demonstrated to be superficial. WBC >20 --> 8.1, radial pulse exam 2+. He is more comfortable today. Edema is resolving in the left arm. appreciate vascular input. Elevation above heart level IV antibiotics per ID Consider holding anticoagulation Correct coagulopathy if possible PT evaluation for Edema management and ROM will follow This patient is critically ill. Time spent reviewing chart, examining patient, talking with providers and/or family and documentation is 35 minutes. Code(s): S40.022A - CONTUSION OF LEFT UPPER ARM, INITIAL ENCOUNTER Qualifiers: Encounter type: initial encounter Qualified Code(s): S40.022A - Contusion of left upper arm, initial encounter (2) Fall Code(s): W19.XXXA - UNSPECIFIED FALL, INITIAL ENCOUNTER Qualifiers: Encounter type: subsequent encounter Qualified Code(s): W19.XXXD - Unspecified fall, subsequent encounter (3) CAD (coronary artery disease) Code(s): I25.10 - ATHSCL HEART DISEASE OF [place] CORONARY ARTERY W/O ANG PCTRS Qualifiers: Coronary Disease-Associated Artery/Lesion type: [place] artery Associated angina: with stable angina (4) COPD (chronic obstructive pulmonary disease) Code(s): J44.9 - CHRONIC OBSTRUCTIVE PULMONARY DISEASE, UNSPECIFIED Qualifiers: COPD type: COPD with acute exacerbation Qualified Code(s): J44.1 - Chronic obstructive pulmonary disease with (acute) exacerbation (5) History of aortic aneurysm repair Code(s): Z98.890 - OTHER SPECIFIED POSTPROCEDURAL STATES; Z86.79 - PERSONAL HISTORY OF OTHER DISEASES OF THE CIRCULATORY SYSTEM (6) History of arterial bypass of lower extremity Code(s): Z95.828 - PRESENCE OF OTHER VASCULAR IMPLANTS AND GRAFTS
[2017-12-02 07:13] LABS: ANION GAP 5 MMOL/L (8-16); BLOOD UREA NITROGEN 42 mg/dL (7-18); CALCIUM 7.9 mg/dL (8.5-10.1); CHLORIDE 104 mmol/L (98-107); CO2 30 mmol/L (21-32); CREATININE 1.2 mg/dL (0.7-1.3); GLUCOSE,RANDOM 76 mg/dL (74-106); MAGNESIUM 2.4 mg/dL (1.8-2.4); PHOSPHOROUS 2.4 mg/dL (2.5-4.9); POTASSIUM 4.1 mmol/L (3.5-5.1); SODIUM 139 mmol/L (136-145)
[2017-12-02] MEDS: ALBUTEROL SO4 2.5/IPRATROPIUM 0.5 INH SOL 3 ML VIAL.NEB. NEB SCH ×4 (07:45→20:17)
[2017-12-02] MEDS ORDERED: NAPH,MB-DB/K PH,MBDB POWDER PACKET PO ONE (08:15)
[2017-12-02 08:27] LABS: HEMATOCRIT 33.3 % (35.4-49); MCH 28.4 pg (25.7-33.7); MCHC 33.1 g/dl (32.0-35.9); MEAN CELL VOLUME 85.7 fl (80-96); MEAN PLT VOLUME 10.6 fl (7.5-11.1); PLATELET COUNT 83 K/MM3 (134-434); RBC 3.88 M/mm3 (4.00-5.60); WHITE BLOOD COUNT 8.1 K/mm3 (4.0-10.0)
--- NOTE | 2017-12-02 08:27 | PN ---
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, Physician Chief Complaint: BP running low last 24 hours He is alert, denies CP or SOB above baseline. TELE: paced. Underlying AF. Self limited runs NSVT - Current Medication List Current Medications: Active Medications Acetaminophen (Tylenol -) 650 mg PO Q6H PRN PRN Reason: FEVER Last Admin: 12/01/17 13:21 Dose: 650 mg Albuterol/Ipratropium (Duoneb -) 1 amp NEB RQID [facility] Last Admin: 12/01/17 20:46 Dose: 1 amp Amlodipine Besylate (Norvasc -) 2.5 mg PO DAILY [facility] Last Admin: 12/01/17 09:28 Dose: 2.5 mg Atorvastatin Calcium (Lipitor -) 20 mg PO HS [facility] Last Admin: 12/01/17 22:10 Dose: 20 mg Chlorhexidine Gluconate (Hibiclens For Decolonization -) 1 applic TP HS [facility] Last Admin: 12/01/17 22:10 Dose: 1 applic Duloxetine HCl (Cymbalta -) 60 mg PO DAILY [facility] Last Admin: 12/01/17 09:27 Dose: 60 mg Fluocinonide (Lidex 0.05% Cream -) 1 applic TP DAILY [facility] Last Admin: 12/01/17 09:30 Dose: 1 applic Furosemide (Lasix -) 20 mg PO DAILY [facility] Last Admin: 12/01/17 09:27 Dose: 20 mg Ceftriaxone Sodium 2 gm/ (Dextrose) 100 mls @ 200 mls/hr IVPB DAILY [facility]; Protocol Last Admin: 12/01/17 09:24 Dose: 200 mls/hr Isosorbide Dinitrate (Isordil -) 10 mg PO BIDISORDIL [facility] Last Admin: 12/01/17 17:01 Dose: 10 mg Levetiracetam (Keppra -) 250 mg PO BID [facility] Last Admin: 12/01/17 22:09 Dose: 250 mg Lisinopril (Prinivil) 40 mg PO DAILY [facility] Last Admin: 12/01/17 09:25 Dose: 40 mg Metoprolol Succinate (Toprol Xl -) 25 mg PO BID [facility] Last Admin: 12/01/17 22:11 Dose: 25 mg Morphine Sulfate (Morphine Sulfate) 4 mg IVPUSH Q6H PRN PRN Reason: PAIN LEVEL 7 - 10 Last Admin: 12/01/17 16:57 Dose: 4 mg Nystatin (Nystop Powder -) 1 applic TP DAILY [facility] Last Admin: 12/01/17 09:30 Dose: 1 applic Pantoprazole Sodium (Protonix -) 40 mg PO DAILY [facility] Last Admin: 12/01/17 09:27 Dose: 40 mg Prednisone (Deltasone -) 30 mg PO DAILY [facility] Last Admin: 12/01/17 09:25 Dose: 30 mg Pregabalin (Lyrica -) 100 mg PO TID [facility] Last Admin: 12/02/17 05:46 Dose: 100 mg Rivaroxaban (Xarelto -) 20 mg PO DAILY [facility] Last Admin: 12/01/17 17:01 Dose: 20 mg - Objective Vital Signs: Vital Signs Temperature 97.3 F L 12/02/17 06:00 Pulse Rate 70 12/02/17 06:00 Respiratory Rate 20 12/02/17 06:00 Blood Pressure 99/55 12/02/17 06:00 O2 Sat by Pulse Oximetry (%) 93 L 12/01/17 23:07 Constitutional: Yes: No Distress, Calm Cardiovascular: Yes: Pulse Irregular Respiratory: Yes: Other (decreased breath sounds b/l; no active wheezing.) Gastrointestinal: Yes: Soft Edema: Yes Edema: LUE: 2+ (resolving edema- resolving hematoma) Neurological: Yes: Alert, Oriented ...Motor Strength: WNL Labs: CBC, BMP 12/02/17 05:30 INR, PTT INR 1.04 (0.83-1.09) 11/27/17 05:30 Microbiology 11/26/17 16:40 Blood - Peripheral Venous Blood Culture - Final NO GROWTH AFTER 5 DAYS INCUBATION 11/26/17 14:20 Blood - Peripheral Venous Blood Culture - Final NO GROWTH AFTER 5 DAYS INCUBATION Laboratory Tests 12/01/17 12/01/17 12/01/17 05:30 05:30 15:05 WBC 8.1 Hgb 10.3 L Plt Count 96 L Sodium Potassium BUN Creatinine Magnesium Creatine Kinase 57 Troponin I 0.10 H D 0.16 H D 12/01/17 12/02/17 12/02/17 20:45 05:30 05:30 WBC Pending Hgb Pending Plt Count Pending Sodium 139 Potassium 4.1 BUN 42 H Creatinine 1.2 Magnesium 2.4 Creatine Kinase Troponin I 0.14 H 0.13 H - ....Imaging EKG: Image Reviewed Assessment/Plan IMP: ASHD with chronic angina- deemed not a candidate for cath due to extensive and diffuse aortic calcifications- elevated risk for stroke NSVT HTN PAD ICM s/p REHAB THERAPIST-P Multiple aneurysms AF Traumatic hematoma, upper extremity Thrombocytopenia Fall COPD, acute exacerbation Gram + bacteremia: 1 bottle Hypotension REC: 1. AC resumed. Platelets improving. LUE hematoma improved. H/H stable. 2. Steroids being tapered. 3. Abx as per ID , serial cultures have been negative. WBC is down. Afebrile. Duration of abx as per ID. Patient would be at elevated risk for GOPI due to his hypoxia and respiratory status. Furthermore, unclear that GOPI would cell changer significantly. He is not a surgical candidate. Plan d/w and patient who agree. 4. Cont Toprol for NSVT: keep K+>4 and Mg2+>2. Patient refused ICD, opted for REHAB THERAPIST-P. 5. Low BP last 24 hours- will d/c amlodipine. If persists, would decrease dose BRAULIO-I to 20mg daily. Hold BP meds for SBP < 90mmHg. 6. Mild elevation TnI with normal CK of unclear clinical significance: likely mulifactorial and due to chronic CAD with possible demand ischemia, chronic combined systolic and diastolic CHF. Pulmonary embolism is on the differential ( LE venous duplex negative). Consider CTA . Echo has been technically difficult with poor acoustic windows ( due to COPD). Xarelto (for AF) resumed, as above.
--- NOTE | 2017-12-02 09:13 | PN ---
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 (short form) - Note 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: alert nad on high flow oxygen Vital Signs Period Temp Pulse Resp BP Sys/Varghese Pulse Ox Last 24 Hr 97 F-97.8 F 67-89 13-20 84-128/51-67 84-97 cor-rrr llungs decreased bs at bases abd soft,nt ext heamatoma LUE CBC, BMP 12/02/17 05:30 12/02/17 05:30 Microbiology 11/26/17 16:40 Blood - Peripheral Venous Blood Culture - Final NO GROWTH AFTER 5 DAYS INCUBATION 11/26/17 14:20 Blood - Peripheral Venous Blood Culture - Final NO GROWTH AFTER 5 DAYS INCUBATION 11/25/17 17:00 Blood - Peripheral Venous Blood Culture - Final NO GROWTH AFTER 5 DAYS INCUBATION 11/23/17 21:35 Blood - Peripheral Venous Blood Culture - Final NO GROWTH AFTER 5 DAYS INCUBATION 11/23/17 21:35 Blood - Peripheral Venous Blood Culture - Final NO GROWTH AFTER 5 DAYS INCUBATION 11/25/17 17:45 Blood - Peripheral Venous Blood Culture - Final Streptococcus Mitis 11/26/17 19:00 Nasopharyngeal Swab Respiratory Syncytial Virus Ag - Final 11/26/17 02:40 Urine - Urine Clean Catch Urine Culture - Final NO GROWTH OBTAINED 11/23/17 22:10 Urine - Urine Clean Catch Urine Culture - Final Current Medications Acetaminophen (Tylenol -) 650 mg PO Q6H PRN PRN Reason: FEVER Last Admin: 12/01/17 13:21 Dose: 650 mg Albuterol/Ipratropium (Duoneb -) 1 amp NEB RQID [facility] Last Admin: 12/01/17 20:46 Dose: 1 amp Atorvastatin Calcium (Lipitor -) 20 mg PO HS [facility] Last Admin: 12/01/17 22:10 Dose: 20 mg Chlorhexidine Gluconate (Hibiclens For Decolonization -) 1 applic TP HS [facility] Last Admin: 12/01/17 22:10 Dose: 1 applic Duloxetine HCl (Cymbalta -) 60 mg PO DAILY [facility] Last Admin: 12/01/17 09:27 Dose: 60 mg Fluocinonide (Lidex 0.05% Cream -) 1 applic TP DAILY [facility] Last Admin: 12/01/17 09:30 Dose: 1 applic Furosemide (Lasix -) 20 mg PO DAILY [facility] Last Admin: 12/01/17 09:27 Dose: 20 mg Ceftriaxone Sodium 2 gm/ (Dextrose) 100 mls @ 200 mls/hr IVPB DAILY [facility]; Protocol Last Admin: 12/01/17 09:24 Dose: 200 mls/hr Isosorbide Dinitrate (Isordil -) 10 mg PO BIDISORDIL [facility] Last Admin: 12/01/17 17:01 Dose: 10 mg Levetiracetam (Keppra -) 250 mg PO BID [facility] Last Admin: 12/01/17 22:09 Dose: 250 mg Lisinopril (Prinivil) 40 mg PO DAILY [facility] Last Admin: 12/01/17 09:25 Dose: 40 mg Metoprolol Succinate (Toprol Xl -) 25 mg PO BID [facility] Last Admin: 12/01/17 22:11 Dose: 25 mg Morphine Sulfate (Morphine Sulfate) 4 mg IVPUSH Q6H PRN PRN Reason: PAIN LEVEL 7 - 10 Last Admin: 12/01/17 16:57 Dose: 4 mg Nystatin (Nystop Powder -) 1 applic TP DAILY [facility] Last Admin: 12/01/17 09:30 Dose: 1 applic Pantoprazole Sodium (Protonix -) 40 mg PO DAILY [facility] Last Admin: 12/01/17 09:27 Dose: 40 mg Prednisone (Deltasone -) 30 mg PO DAILY [facility] Last Admin: 12/01/17 09:25 Dose: 30 mg Pregabalin (Lyrica -) 100 mg PO TID [facility] Last Admin: 12/02/17 05:46 Dose: 100 mg Rivaroxaban (Xarelto -) 20 mg PO DAILY [facility] Last Admin: 12/01/17 17:01 Dose: 20 mg imp/reccd strep mitis bacteremia- continue rocephin , suboptimal echo, day #6 antibiotics - 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
--- NOTE | 2017-12-02 10:22 | PN ---
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, Physician - Current Medication List Current Medications: Active Medications Acetaminophen (Tylenol -) 650 mg PO Q6H PRN PRN Reason: FEVER Last Admin: 12/01/17 13:21 Dose: 650 mg Albuterol/Ipratropium (Duoneb -) 1 amp NEB RQID [facility] Last Admin: 12/02/17 07:45 Dose: 1 amp Atorvastatin Calcium (Lipitor -) 20 mg PO HS [facility] Last Admin: 12/01/17 22:10 Dose: 20 mg Chlorhexidine Gluconate (Hibiclens For Decolonization -) 1 applic TP HS [facility] Last Admin: 12/01/17 22:10 Dose: 1 applic Duloxetine HCl (Cymbalta -) 60 mg PO DAILY [facility] Last Admin: 12/01/17 09:27 Dose: 60 mg Fluocinonide (Lidex 0.05% Cream -) 1 applic TP DAILY [facility] Last Admin: 12/01/17 09:30 Dose: 1 applic Furosemide (Lasix -) 20 mg PO DAILY [facility] Last Admin: 12/01/17 09:27 Dose: 20 mg Ceftriaxone Sodium 2 gm/ (Dextrose) 100 mls @ 200 mls/hr IVPB DAILY [facility]; Protocol Last Admin: 12/01/17 09:24 Dose: 200 mls/hr Isosorbide Dinitrate (Isordil -) 10 mg PO BIDISORDIL [facility] Last Admin: 12/01/17 17:01 Dose: 10 mg Levetiracetam (Keppra -) 250 mg PO BID [facility] Last Admin: 12/01/17 22:09 Dose: 250 mg Lisinopril (Prinivil) 40 mg PO DAILY [facility] Last Admin: 12/01/17 09:25 Dose: 40 mg Metoprolol Succinate (Toprol Xl -) 25 mg PO BID [facility] Last Admin: 12/01/17 22:11 Dose: 25 mg Morphine Sulfate (Morphine Sulfate) 4 mg IVPUSH Q6H PRN PRN Reason: PAIN LEVEL 7 - 10 Last Admin: 12/01/17 16:57 Dose: 4 mg Nystatin (Nystop Powder -) 1 applic TP DAILY [facility] Last Admin: 12/01/17 09:30 Dose: 1 applic Pantoprazole Sodium (Protonix -) 40 mg PO DAILY [facility] Last Admin: 12/01/17 09:27 Dose: 40 mg Prednisone (Deltasone -) 30 mg PO DAILY [facility] Last Admin: 12/01/17 09:25 Dose: 30 mg Pregabalin (Lyrica -) 100 mg PO TID [facility] Last Admin: 12/02/17 05:46 Dose: 100 mg Rivaroxaban (Xarelto -) 20 mg PO DAILY [facility] Last Admin: 12/01/17 17:01 Dose: 20 mg - Objective Vital Signs: Vital Signs Temperature 97.3 F L 12/02/17 06:00 Pulse Rate 72 12/02/17 08:00 Respiratory Rate 22 12/02/17 08:00 Blood Pressure 133/77 12/02/17 08:00 O2 Sat by Pulse Oximetry (%) 98 12/02/17 08:15 Cardiovascular: Yes: S1, S2 Respiratory: Yes: Diminished Labs: CBC, BMP 12/02/17 05:30 12/02/17 05:30 INR, PTT INR 1.04 (0.83-1.09) 11/27/17 05:30 Problem List - Problems (1) Fall Assessment/Plan: -Physical therapy -CT head negative -Neurology consult -Safety precautions Code(s): W19.XXXA - UNSPECIFIED FALL, INITIAL ENCOUNTER Qualifiers: Encounter type: subsequent encounter Qualified Code(s): W19.XXXD - Unspecified fall, subsequent encounter (2) Seizure Assessment/Plan: per neuro on kepra Code(s): R56.9 - UNSPECIFIED CONVULSIONS (3) Traumatic hematoma of left upper arm Assessment/Plan: Improved vascular on upper caser Code(s): S40.022A - CONTUSION OF LEFT UPPER ARM, INITIAL ENCOUNTER Qualifiers: Encounter type: initial encounter Qualified Code(s): S40.022A - Contusion of left upper arm, initial encounter (4) CAD (coronary artery disease) Assessment/Plan: -Statin -BB -On Isosorbide -Cardiac cath in the past with EF >40% -has ICM with permanent Cardiac resynchronization therapy defibrillator (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) as 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 in the past Code(s): I25.10 - ATHSCL HEART DISEASE OF [place] CORONARY ARTERY W/O ANG PCTRS Qualifiers: Coronary Disease-Associated Artery/Lesion type: [place] artery Associated angina: with stable angina (5) COPD (chronic obstructive pulmonary disease) Assessment/Plan: -On hfnc per pulm -CXR unremarkable -Bronchodilators -Prednisone 30 Code(s): J44.9 - CHRONIC OBSTRUCTIVE PULMONARY DISEASE, UNSPECIFIED Qualifiers: COPD type: COPD with acute exacerbation Qualified Code(s): J44.1 - Chronic obstructive pulmonary disease with (acute) exacerbation (6) Paroxysmal atrial fibrillation Assessment/Plan: -Resume ac -Monitor H/H for any drop suggesting blood loss Code(s): I48.0 - PAROXYSMAL ATRIAL FIBRILLATION (7) Presence of cardiac pacemaker Code(s): Z95.0 - PRESENCE OF CARDIAC PACEMAKER (8) Acute kidney injury Assessment/Plan: -Nephrology consult -monitor Cr Laboratory Tests 11/27/17 11/30/17 05:30 05:30 BUN 66 H 51 H Creatinine 1.4 H 1.3 Code(s): N17.9 - ACUTE KIDNEY FAILURE, UNSPECIFIED
[2017-12-02] MEDS ORDERED: morphine CARPU-JECT 2 MG/1 ML DISP.SYRIN IVPUSH ONE (10:30)
--- NOTE | 2017-12-02 10:34 | EKG ---
Test Reason : Blood Pressure : / mmHG Vent. Rate : 091 BPM Atrial Rate : 091 BPM P-R Int : 140 ms QRS Dur : 122 ms QT Int : 372 ms P-R-T Axes : 053 259 078 degrees QTc Int : 457 ms Atrial-sensed ventricular-paced rhythm WITH OCCASIONAL PREMATURE VENTRICULAR COMPLEXES ABNORMAL ECG WHEN COMPARED WITH ECG OF 30-NOV-2017 23:01, VENT. RATE HAS INCREASED BY 22 BPM Confirmed by KATHRYN ARREDONDO, SAADIA ([id number]) on 12/02/2017 10:33:35 AM Referred By: Berlin SANDERS Confirmed By:SAADIA PERALTA MD
--- NOTE | 2017-12-02 10:38 | EKG ---
Test Reason : Blood Pressure : / mmHG Vent. Rate : 069 BPM Atrial Rate : 069 BPM P-R Int : 128 ms QRS Dur : 116 ms QT Int : 422 ms P-R-T Axes : 037 259 099 degrees QTc Int : 452 ms Atrial-sensed ventricular-paced rhythm WITH OCCASIONAL AV dual-paced complexes AND WITH OCCASIONAL PREMATURE VENTRICULAR COMPLEXES ABNORMAL ECG WHEN COMPARED WITH ECG OF 26-NOV-2017 08:44, VENT. RATE HAS INCREASED BY 4 BPM Confirmed by SAADIA PERALTA MD ([id number]) on 12/02/2017 10:38:12 AM Referred By: Confirmed By:SAADIA PERALTA MD
[2017-12-02] MEDS ORDERED: DEXTROSE 5%-WATER 100 ML IVPB ONE (10:40)
[2017-12-02] MEDS ORDERED: morphine SULFATE 4 MG/ML VIAL ONE (10:42)
[2017-12-02] MEDS: CEFTRIAXONE 2 GM in DEXTROSE 5%-WATER 100 ML IVPB SCH (10:49)
[2017-12-02] MEDS: DULoxetine HCL 30 MG CAPSULE.DR (FP) PO SCH (10:53)
[2017-12-02] MEDS: levETIRAcetam 500 MG TABLET (FP) PO SCH ×2 (10:54→21:38)
[2017-12-02] MEDS: FUROSEMIDE 20 MG TABLET (FP) PO SCH (10:55)
[2017-12-02] MEDS: RIVAROXABAN 20 MG TABLET PO SCH (10:55)
[2017-12-02] MEDS: LISINOPRIL 20 MG TABLET (FP) PO SCH (10:56)
[2017-12-02] MEDS: metoPROLOL SUCCINATE 25 MG TAB.SR.24H (FP) PO SCH ×2 (10:56→21:39)
[2017-12-02] MEDS: PANTOPRAZOLE 40 MG TABLET (FP) PO SCH (10:56)
[2017-12-02] MEDS: predniSONE 10 MG TABLET (UD) PO SCH (10:57)
[2017-12-02] MEDS: ISOSORBIDE DINITRATE 10 MG TABLET (FP) PO SCH ×2 (10:57→18:17)
[2017-12-02] MEDS: FLUOCINONIDE 0.05% CREAM (15 GM TUBE) TP SCH (10:58)
[2017-12-02] MEDS: NYSTATIN POWDER 100,000 UNITS/GM - 15 GM TOPICAL POWDER TP SCH (10:58)
--- NOTE | 2017-12-02 11:53 | PN ---
Physical Exam: SUBJECTIVE: Patient is a 77 y/o male with a history of afib, HTN, HLD, CAD, COPD, DM, PAD, AAA who is here for acute hypoxic respiratory failure 2/2 to COPD exacerbation. Patient was on Bipap overnight and on high flow this morning. Patient was very agitated and upset this morning, his oxygenation status was 100%. His pressure started to drop so a central line was placed. OBJECTIVE: Vital Signs Temperature 98.2 F 12/02/17 10:31 Pulse Rate 128 H 12/02/17 10:31 Respiratory Rate 24 12/02/17 10:31 Blood Pressure 101/74 12/02/17 10:31 O2 Sat by Pulse Oximetry (%) 98 12/02/17 08:15 GENERAL: Awake and alert EYES: Pupils equal, round and reactive to light, extraocular movements intact EARS, NOSE, THROAT: Ears normal, nares patent, oropharynx clear without exudates. Moist mucous membranes. LUNGS: lungs clear to auscultation, lower base expiratory wheezes, no accessory muscle use HEART: Regular rate and rhythm, ABDOMEN: Soft, nontender, not distended, LOWER EXTREMITIES: 2+ dp pulses, warm, well-perfused. No calf tenderness. No peripheral edema. SKIN: large hematoma on LUE from wrist and extending up midway of arm, radial pulse intact, ROM intact, hand medical records coder intact CBCD WBC 8.1 K/mm3 (4.0-10.0) 12/02/17 05:30 RBC 3.88 M/mm3 (4.00-5.60) L 12/02/17 05:30 Hgb 11.0 GM/dL (11.7-16.9) L 12/02/17 05:30 Hct 33.3 % (35.4-49) L 12/02/17 05:30 MCV 85.7 fl (80-96) 12/02/17 05:30 MCHC 33.1 g/dl (32.0-35.9) 12/02/17 05:30 RDW 18.0 % (11.9-15.9) H 12/02/17 05:30 Plt Count 83 K/MM3 (134-434) L 12/02/17 05:30 MPV 10.6 fl (7.5-11.1) 12/02/17 05:30 CMP Sodium 139 mmol/L (136-145) 12/02/17 05:30 Potassium 4.1 mmol/L (3.5-5.1) 12/02/17 05:30 Chloride 104 mmol/L (98-107) 12/02/17 05:30 Carbon Dioxide 30 mmol/L (21-32) 12/02/17 05:30 Anion Gap 5 MMOL/L (8-16) L 12/02/17 05:30 BUN 42 mg/dL (7-18) H 12/02/17 05:30 Creatinine 1.2 mg/dL (0.7-1.3) 12/02/17 05:30 Creat Clearance w eGFR 58.40 (>60) 12/02/17 05:30 Calcium 7.9 mg/dL (8.5-10.1) L 12/02/17 05:30 Total Bilirubin 0.5 mg/dL (0.2-1.0) 11/30/17 05:30 AST 21 U/L (15-37) D 11/30/17 05:30 ALT 59 U/L (12-78) 11/30/17 05:30 Alkaline Phosphatase 41 U/L (45-117) L 11/30/17 05:30 Total Protein 5.1 g/dl (6.4-8.2) L 11/30/17 05:30 Albumin 2.4 g/dl (3.4-5.0) L 11/30/17 05:30 Active Medications Acetaminophen (Tylenol -) 650 mg PO Q6H PRN PRN Reason: FEVER Last Admin: 12/01/17 13:21 Dose: 650 mg Albuterol/Ipratropium (Duoneb -) 1 amp NEB RQID [facility] Last Admin: 12/02/17 07:45 Dose: 1 amp Atorvastatin Calcium (Lipitor -) 20 mg PO HS [facility] Last Admin: 12/01/17 22:10 Dose: 20 mg Chlorhexidine Gluconate (Hibiclens For Decolonization -) 1 applic TP HS [facility] Last Admin: 12/01/17 22:10 Dose: 1 applic Duloxetine HCl (Cymbalta -) 60 mg PO DAILY [facility] Last Admin: 12/02/17 10:53 Dose: 60 mg Fluocinonide (Lidex 0.05% Cream -) 1 applic TP DAILY [facility] Last Admin: 12/02/17 10:58 Dose: 1 applic Furosemide (Lasix -) 20 mg PO DAILY [facility] Last Admin: 12/02/17 10:55 Dose: 20 mg Ceftriaxone Sodium 2 gm/ (Dextrose) 100 mls @ 200 mls/hr IVPB DAILY [facility]; Protocol Last Admin: 12/02/17 10:49 Dose: 200 mls/hr Isosorbide Dinitrate (Isordil -) 10 mg PO BIDISORDIL [facility] Last Admin: 12/02/17 10:57 Dose: 10 mg Levetiracetam (Keppra -) 250 mg PO BID [facility] Last Admin: 12/02/17 10:54 Dose: 250 mg Lisinopril (Prinivil) 40 mg PO DAILY [facility] Last Admin: 12/02/17 10:56 Dose: 40 mg Metoprolol Succinate (Toprol Xl -) 25 mg PO BID [facility] Last Admin: 12/02/17 10:56 Dose: 25 mg Morphine Sulfate (Morphine Sulfate) 4 mg IVPUSH Q6H PRN PRN Reason: PAIN LEVEL 7 - 10 Last Admin: 12/01/17 16:57 Dose: 4 mg Morphine Sulfate (Morphine Injection -) 2 mg IVPUSH ONCE ONE Stop: 12/02/17 10:31 Last Admin: 12/02/17 10:40 Dose: 2 mg Nystatin (Nystop Powder -) 1 applic TP DAILY [facility] Last Admin: 12/02/17 10:58 Dose: 1 applic Pantoprazole Sodium (Protonix -) 40 mg PO DAILY [facility] Last Admin: 12/02/17 10:56 Dose: 40 mg Prednisone (Deltasone -) 30 mg PO DAILY [facility] Last Admin: 12/02/17 10:57 Dose: 30 mg Pregabalin (Lyrica -) 100 mg PO TID [facility] Last Admin: 12/02/17 05:46 Dose: 100 mg Rivaroxaban (Xarelto -) 20 mg PO DAILY [facility] Last Admin: 12/02/17 10:55 Dose: 20 mg ASSESSMENT/PLAN: Patient is a 77 y/o male with a history of afib, HTN, HLD, CAD, COPD, DM, PAD, AAA who is here for acute hypoxic respiratory failure 2/2 to COPD exacerbation. Neuro Seizure like actvity/ vs fall - patient A & O x1 - Neurology Dr. Lorie: may be partial seizure - Keppra 250 mg po BID - head CT: no acute intracranial hemorrhage or acute vascular territory infarction - EEG when possible - consulted Dr. Zamudio: Continue with Duloxatine 60mg po od, Ativan 1mg IM Q 8hrs PRN for aggressive behaviour Cardio Hypotension - Central line placed 12/02 - no pressors currently, suggest levophed if needed - can also give bolus afib - metoprolol 25 mg po BID - currently rate controlled and stable - Xarelto 20 mg daily restarted CAD/HTN - aspirin 81 mg po daily - Isosorbide dinitrate 10 mg po - lipitor 20 mg po hs - privinil restarted at 10 mg daily - echo inadequate study tropinemia - likely demand - f/u Dr. Flora Kendall acute on chronic hypoxic respiratory failure 04/26 to COPD exacerbation - CXR: no sign of acute process - patient on oxygen at home - patient on high flow and tolerating well, continue to titrate down - keep oxygen saturation between 88-92 % - unlikely to be a PE, patients hypoxia likely chronic, Patient last CTA 10/18 showed history of emphysema - patient currently anticoagulated COPD - Prednisone taper 30 mg today - duonebs QID - albuterol q4h Renal - furosemide 20 mg po daily - monitor I's & O's - f/u Dr. Ange SANTIAGOK Hematoma of LUE - UE doppler: no evidence or arterial dissection or aneyursm , superficial hematomas in LUE - history of AAA repair at [facility] - per vascular Dr. Hendricks and surgery Dr. Palumbo, no evidence of compartment syndrome - hold all anticoagulation as to not worsen hematoma - monitor hemoglobin dropping slightly - continue PT for ROM and to help edema - keep arm elevated above heart Infectious disease - bcx: Streptococcus Mitis - Ceftriaxone ( day 5) - treat for two weeks duration per Dr. Benz GI ppx - protonix 40 mg po daily BPH - tamsulosin .4 mg Endocrine DM - Lyrica 100 mg po TID - A1 C: 6.0 - TSH .12, Free T4:1 DVT ppx - SCD's depression - cymbalta 60 mg po daily FEN - diabetic/low sodium diet - repleted phosporus Dispo:monitor oxygenation Visit type - Emergency Visit Emergency Visit: No - New Patient This patient is new to me today: No - Critical Care Critical Care patient: Yes Total Critical Care Time (in minutes): 40 Critical Care Statement: The care of this patient involved high complexity decision making to prevent further life threatening deterioration of the patient 's condition and/or to evaluate & treat vital organ system(s) failure or risk of failure.
--- NOTE | 2017-12-02 13:10 | PN ---
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, Physician History of Present Illness: Pt seen and examined at bedside. He is agitated this morning. He was more awake when I saw him but not very cooperative. - Current Medication List Current Medications: Active Medications Acetaminophen (Tylenol -) 650 mg PO Q6H PRN PRN Reason: FEVER Last Admin: 12/01/17 13:21 Dose: 650 mg Albuterol/Ipratropium (Duoneb -) 1 amp NEB RQID [facility] Last Admin: 12/02/17 07:45 Dose: 1 amp Atorvastatin Calcium (Lipitor -) 20 mg PO HS [facility] Last Admin: 12/01/17 22:10 Dose: 20 mg Chlorhexidine Gluconate (Hibiclens For Decolonization -) 1 applic TP HS [facility] Last Admin: 12/01/17 22:10 Dose: 1 applic Duloxetine HCl (Cymbalta -) 60 mg PO DAILY [facility] Last Admin: 12/02/17 10:53 Dose: 60 mg Fluocinonide (Lidex 0.05% Cream -) 1 applic TP DAILY [facility] Last Admin: 12/02/17 10:58 Dose: 1 applic Furosemide (Lasix -) 20 mg PO DAILY [facility] Last Admin: 12/02/17 10:55 Dose: 20 mg Ceftriaxone Sodium 2 gm/ (Dextrose) 100 mls @ 200 mls/hr IVPB DAILY [facility]; Protocol Last Admin: 12/02/17 10:49 Dose: 200 mls/hr Isosorbide Dinitrate (Isordil -) 10 mg PO BIDISORDIL [facility] Last Admin: 12/02/17 10:57 Dose: 10 mg Levetiracetam (Keppra -) 250 mg PO BID [facility] Last Admin: 12/02/17 10:54 Dose: 250 mg Lisinopril (Prinivil) 40 mg PO DAILY [facility] Last Admin: 12/02/17 10:56 Dose: 40 mg Metoprolol Succinate (Toprol Xl -) 25 mg PO BID [facility] Last Admin: 12/02/17 10:56 Dose: 25 mg Morphine Sulfate (Morphine Sulfate) 4 mg IVPUSH Q6H PRN PRN Reason: PAIN LEVEL 7 - 10 Last Admin: 12/01/17 16:57 Dose: 4 mg Nystatin (Nystop Powder -) 1 applic TP DAILY [facility] Last Admin: 12/02/17 10:58 Dose: 1 applic Pantoprazole Sodium (Protonix -) 40 mg PO DAILY [facility] Last Admin: 12/02/17 10:56 Dose: 40 mg Prednisone (Deltasone -) 30 mg PO DAILY [facility] Last Admin: 12/02/17 10:57 Dose: 30 mg Pregabalin (Lyrica -) 100 mg PO TID [facility] Last Admin: 12/02/17 05:46 Dose: 100 mg Rivaroxaban (Xarelto -) 20 mg PO DAILY [facility] Last Admin: 12/02/17 10:55 Dose: 20 mg - Objective Vital Signs: Vital Signs Temperature 98.2 F 12/02/17 10:31 Pulse Rate 80 12/02/17 13:04 Respiratory Rate 26 H 12/02/17 13:04 Blood Pressure 67/43 12/02/17 13:04 O2 Sat by Pulse Oximetry (%) 98 12/02/17 08:15 Constitutional: Yes: Anxious Eyes: Yes: Conjunctiva Clear HENT: Yes: Atraumatic Cardiovascular: Yes: S1, S2 Respiratory: Yes: On Nasal O2 Gastrointestinal: Yes: Soft, Other (diarrhea) Genitourinary: Yes: WNL Edema: Yes Edema: LUE: 1+ Integumentary: Yes: Bruising Neurological: Yes: Oriented Psychiatric: Yes: Agitated Labs: CBC, BMP 12/02/17 05:30 12/02/17 05:30 INR, PTT INR 1.04 (0.83-1.09) 11/27/17 05:30 Problem List - Problems (1) Fall Code(s): W19.XXXA - UNSPECIFIED FALL, INITIAL ENCOUNTER Qualifiers: Encounter type: subsequent encounter Qualified Code(s): W19.XXXD - Unspecified fall, subsequent encounter (2) CAD (coronary artery disease) Code(s): I25.10 - ATHSCL HEART DISEASE OF [place] CORONARY ARTERY W/O ANG PCTRS Qualifiers: Coronary Disease-Associated Artery/Lesion type: [place] artery Associated angina: with stable angina (3) CHF (congestive heart failure) Code(s): I50.9 - HEART FAILURE, UNSPECIFIED (4) CKD (chronic kidney disease) Code(s): N18.9 - CHRONIC KIDNEY DISEASE, UNSPECIFIED Qualifiers: Chronic kidney disease stage: stage 3 (moderate) Qualified Code(s): N18.3 - Chronic kidney disease, stage 3 (moderate) Assessment/Plan Current Medications Generic Name Dose Route Start Last Admin Trade Name Freq PRN Reason Stop Dose Admin Acetaminophen 650 mg 11/25/17 20:29 12/01/17 13:21 Tylenol - PO 650 mg Q6H PRN Administration FEVER Albuterol/Ipratropium 1 amp 11/26/17 12:00 12/02/17 07:45 Duoneb - NEB 1 amp RQID [facility] Administration Atorvastatin Calcium 20 mg 11/25/17 22:00 12/01/17 22:10 Lipitor - PO 20 mg HS [facility] Administration Chlorhexidine Gluconate 1 applic 11/25/17 22:00 12/01/17 22:10 Hibiclens For Decolonization - TP 1 applic HS [facility] Administration Duloxetine HCl 60 mg 11/26/17 10:00 12/02/17 10:53 Cymbalta - PO 60 mg DAILY [facility] Administration Fluocinonide 1 applic 11/26/17 10:00 12/02/17 10:58 Lidex 0.05% Cream - TP 1 applic DAILY [facility] Administration Furosemide 20 mg 11/26/17 10:00 12/02/17 10:55 Lasix - PO 20 mg DAILY [facility] Administration Ceftriaxone Sodium 2 gm/ 100 mls @ 200 mls/hr 11/28/17 17:15 12/02/17 10:49 Dextrose IVPB 200 mls/hr DAILY [facility] Administration Protocol Isosorbide Dinitrate 10 mg 11/26/17 10:00 12/02/17 10:57 Isordil - PO 10 mg BIDISORDIL [facility] Administration Levetiracetam 250 mg 11/25/17 22:00 12/02/17 10:54 Keppra - PO 250 mg BID [facility] Administration Lisinopril 40 mg 11/29/17 16:22 12/02/17 10:56 Prinivil PO 40 mg DAILY [facility] Administration Metoprolol Succinate 25 mg 11/25/17 22:00 12/02/17 10:56 Toprol Xl - PO 25 mg BID [facility] Administration Morphine Sulfate 4 mg 11/29/17 09:22 12/01/17 16:57 Morphine Sulfate IVPUSH 4 mg Q6H PRN Administration PAIN LEVEL 7 - 10 Nystatin 1 applic 11/30/17 10:00 12/02/17 10:58 Nystop Powder - TP 1 applic DAILY [facility] Administration Pantoprazole Sodium 40 mg 11/26/17 10:00 12/02/17 10:56 Protonix - PO 40 mg DAILY [facility] Administration Prednisone 30 mg 11/30/17 10:00 12/02/17 10:57 Deltasone - PO 30 mg DAILY [facility] Administration Pregabalin 100 mg 11/25/17 22:00 12/02/17 05:46 Lyrica - PO 100 mg TID [facility] Administration Rivaroxaban 20 mg 12/01/17 15:45 12/02/17 10:55 Xarelto - PO 20 mg DAILY [facility] Administration Impression 1. CKD 2. COPD exacerbation 3. AAA 4. hx CVA 5. a-fib 6. HTN 7. insomnia 8. hypoxic resp failure 9. CAD 10. BPH 12. microscopic hematuria 13. hypoxia Plan - renal function remains stable - can give fluid bolus for hypotension if bp does not improve - repeat blood pressure was improved - discussed care with his - avoid nsaids - will follow
--- NOTE | 2017-12-02 13:40 | PROC ---
Central Line Insertion Indication: CVP Monitoring, Poor Venous Access, Vasopressor Risks and Benefits Explained: Yes Consent on Chart: Yes Central Line: Triple Lumen Catheter Anesthesia: 1% Lidocaine w/ epi Sterile Technique: Yes Ultrasound Guided Assistance: Yes Position: Right Internal Jugular Post Insertion: Yes: Bilateral Breath Sounds, Bilateral Chest Expansion, Chest X-Ray Ordered Sterile Dressing Applied: Yes
--- NOTE | 2017-12-02 13:47 | PN ---
Teaching Attending Note Name of Resident: Mitra Thornton ATTENDING PHYSICIAN STATEMENT I saw and evaluated the patient. I reviewed the resident's note and discussed the case with the resident. I agree with the resident's findings and plan as documented. SUBJECTIVE: Patient seen and examined in the ICU. Hypotensive. Reports new anterior CP. Noted to have intermittent hypoxemia but he taking his O2. off. TLC inserted: CVP : 0 - 2 Intake & Output 11/29/17 11/30/17 12/01/17 12/02/17 23:59 23:59 23:59 23:59 Intake Total 750 600 880 60 Output Total 800 2000 1100 400 Balance -50 -1400 -220 -340 Weight 157 lb 6.561 oz 154 lb 12.232 oz 153 lb 3.54 oz 151 lb 1.6 oz Last Vital Signs Temp Pulse Resp BP Pulse Ox 98.2 F 80 26 H 67/43 96 12/02/17 10:31 12/02/17 13:04 12/02/17 13:04 12/02/17 13:04 12/02/17 09:00 Active Medications Acetaminophen (Tylenol -) 650 mg PO Q6H PRN PRN Reason: FEVER Last Admin: 12/01/17 13:21 Dose: 650 mg Albuterol/Ipratropium (Duoneb -) 1 amp NEB RQID [facility] Last Admin: 12/02/17 07:45 Dose: 1 amp Atorvastatin Calcium (Lipitor -) 20 mg PO HS [facility] Last Admin: 12/01/17 22:10 Dose: 20 mg Chlorhexidine Gluconate (Hibiclens For Decolonization -) 1 applic TP HS [facility] Last Admin: 12/01/17 22:10 Dose: 1 applic Duloxetine HCl (Cymbalta -) 60 mg PO DAILY [facility] Last Admin: 12/02/17 10:53 Dose: 60 mg Fluocinonide (Lidex 0.05% Cream -) 1 applic TP DAILY [facility] Last Admin: 12/02/17 10:58 Dose: 1 applic Furosemide (Lasix -) 20 mg PO DAILY [facility] Last Admin: 12/02/17 10:55 Dose: 20 mg Ceftriaxone Sodium 2 gm/ (Dextrose) 100 mls @ 200 mls/hr IVPB DAILY [facility]; Protocol Last Admin: 12/02/17 10:49 Dose: 200 mls/hr Isosorbide Dinitrate (Isordil -) 10 mg PO BIDISORDIL [facility] Last Admin: 12/02/17 10:57 Dose: 10 mg Levetiracetam (Keppra -) 250 mg PO BID [facility] Last Admin: 12/02/17 10:54 Dose: 250 mg Lisinopril (Prinivil) 40 mg PO DAILY [facility] Last Admin: 12/02/17 10:56 Dose: 40 mg Metoprolol Succinate (Toprol Xl -) 25 mg PO BID [facility] Last Admin: 12/02/17 10:56 Dose: 25 mg Morphine Sulfate (Morphine Sulfate) 4 mg IVPUSH Q6H PRN PRN Reason: PAIN LEVEL 7 - 10 Last Admin: 12/01/17 16:57 Dose: 4 mg Nystatin (Nystop Powder -) 1 applic TP DAILY [facility] Last Admin: 12/02/17 10:58 Dose: 1 applic Pantoprazole Sodium (Protonix -) 40 mg PO DAILY [facility] Last Admin: 12/02/17 10:56 Dose: 40 mg Prednisone (Deltasone -) 30 mg PO DAILY [facility] Last Admin: 12/02/17 10:57 Dose: 30 mg Pregabalin (Lyrica -) 100 mg PO TID [facility] Last Admin: 12/02/17 05:46 Dose: 100 mg Rivaroxaban (Xarelto -) 20 mg PO DAILY [facility] Last Admin: 12/02/17 10:55 Dose: 20 mg Constitutional: Yes: Anxious Eyes: Yes: Conjunctiva Clear HENT: Yes: Atraumatic Cardiovascular: Yes: S1, S2 Respiratory: Yes: On HFNC O2 Gastrointestinal: Yes: Soft, (+) BS Genitourinary: Yes: WNL Edema: Yes Edema: LUE: 1+ Integumentary: Yes: Bruising Neurological: Yes: Oriented Psychiatric: Yes: Agitated Labs: Laboratory Results - last 24 hr 12/01/17 12/01/17 12/02/17 15:05 20:45 05:30 WBC 8.1 RBC 3.88 L Hgb 11.0 L Hct 33.3 L MCV 85.7 MCH 28.4 MCHC 33.1 RDW 18.0 H Plt Count 83 L MPV 10.6 Sodium Potassium Chloride Carbon Dioxide Anion Gap BUN Creatinine Creat Clearance w eGFR Random Glucose Calcium Phosphorus Magnesium Troponin I 0.16 H D 0.14 H 12/02/17 05:30 WBC RBC Hgb Hct MCV MCH MCHC RDW Plt Count MPV Sodium 139 Potassium 4.1 Chloride 104 Carbon Dioxide 30 Anion Gap 5 L BUN 42 H Creatinine 1.2 Creat Clearance w eGFR 58.40 Random Glucose 76 Calcium 7.9 L Phosphorus 2.4 L Magnesium 2.4 Troponin I 0.13 H Problem List - Problems (1) Fall Code(s): W19.XXXA - UNSPECIFIED FALL, INITIAL ENCOUNTER Qualifiers: Encounter type: subsequent encounter Qualified Code(s): W19.XXXD - Unspecified fall, subsequent encounter (2) CAD (coronary artery disease) Code(s): I25.10 - ATHSCL HEART DISEASE OF [place] CORONARY ARTERY W/O ANG PCTRS Qualifiers: Coronary Disease-Associated Artery/Lesion type: [place] artery Associated angina: with stable angina (3) CHF (congestive heart failure) Code(s): I50.9 - HEART FAILURE, UNSPECIFIED (4) CKD (chronic kidney disease) Code(s): N18.9 - CHRONIC KIDNEY DISEASE, UNSPECIFIED Qualifiers: Chronic kidney disease stage: stage 3 (moderate) Qualified Code(s): N18.3 - Chronic kidney disease, stage 3 (moderate) Assessment/Plan Laboratory Results - last 24 hr 12/01/17 12/01/17 12/02/17 15:05 20:45 05:30 WBC 8.1 RBC 3.88 L Hgb 11.0 L Hct 33.3 L MCV 85.7 MCH 28.4 MCHC 33.1 RDW 18.0 H Plt Count 83 L MPV 10.6 Sodium Potassium Chloride Carbon Dioxide Anion Gap BUN Creatinine Creat Clearance w eGFR Random Glucose Calcium Phosphorus Magnesium Troponin I 0.16 H D 0.14 H 12/02/17 05:30 WBC RBC Hgb Hct MCV MCH MCHC RDW Plt Count MPV Sodium 139 Potassium 4.1 Chloride 104 Carbon Dioxide 30 Anion Gap 5 L BUN 42 H Creatinine 1.2 Creat Clearance w eGFR 58.40 Random Glucose 76 Calcium 7.9 L Phosphorus 2.4 L Magnesium 2.4 Troponin I 0.13 H Impression Hypotension likely due to volume depletion Do not have a high clinical suspicion of PE (Had CTA in September was (-)) CKD COPD exacerbation AAA Hx CVA Afib NSVT HTN Insomnia Hypoxic respiratory failure CAD BPH Microscopic hematuria Plan IVF Follow CVP Wean HFNC: Keep saturation 88% to 92% BD TX Follow CXR post CVP placement Follow PP and UE exam Prednisone Control per Cardiology ICU monitoring Dr Alberto Critical care time spent in reviewing chart, evaluating patient and formulating plan - 36 minutes.
[2017-12-02] MEDS: SODIUM CHLORIDE 1,000 ML IV SCH (15:19)
[2017-12-02] MEDS: CHLORHEXIDINE GLUCONATE 4% CLEANSER FOR DECOLONIZATION TP SCH (21:38)
[2017-12-02] MEDS: ATORVASTATIN CA 20 MG TABLET (FP) PO SCH (21:39)
[2017-12-02] MEDS: ACETAMINOPHEN 325 MG TABLET (FP) PO PRN (21:40)
--- NOTE | 2017-12-02 22:46 | PN ---
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 (short form) - Note 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: PAtient seen and examined Denies any specific complaints Last Vital Signs Temp Pulse Resp BP Pulse Ox 98.1 F 79 17 102/56 93 L 12/02/17 20:00 12/02/17 20:00 12/02/17 22:00 12/02/17 20:00 12/02/17 21:00 Cor: RSR, No murmurs, No gallops Lungs: Clear to P&A Abd: Soft, Normal bowel sounds, No organomegaly LUE hematoma Labs/Meds reviewed A/P The patient is a 77 year old white man with a significant PMH of AAA repair ( 2011), CVA, TAA, [place]( [place] [facility] [place] , DVT, CAD, CHF, COPD, CKD, BPH, PPM, hypertension, hyperlipidemia, knee replacement and cataract repair who presents to the emergency department via EMS with a seizure like activity prior to arrival. He had sustained a fall prior to admission. Patient is being treted for s. mitis bacteremia, copd exacerbation and LUE heamtoma We have been consulted regarding thrombocytopenia Thrombocytopenia -- Most likely consumptive process from LUE hematoma? ? occult infection Was on heparin 11/25/, 11/26 Time frame unlikely but will check HIT ab--to f/u Nl coags Resumed xeralto today Will request vascular f/u Pancreatic mases --? neuro endocrine timor + ? IPMN vs neoplasm--on CT 04/11 To discuss with family given comorbidities, functional status ? aggressiveness of w/u
[2017-12-03 06:16] LABS: ALBUMIN 2.3 g/dl (3.4-5.0); ANION GAP 4 MMOL/L (8-16); BLOOD UREA NITROGEN 39 mg/dL (7-18); CALCIUM 7.8 mg/dL (8.5-10.1); CHLORIDE 111 mmol/L (98-107); CO2 26 mmol/L (21-32); GLUCOSE,RANDOM 101 mg/dL (74-106); MAGNESIUM 2.5 mg/dL (1.8-2.4); POTASSIUM 4.3 mmol/L (3.5-5.1); SODIUM 141 mmol/L (136-145)
[2017-12-03 06:21] LABS: ALK PHOS 44 U/L (45-117); BILIRUBIN,TOTAL 0.5 mg/dL (0.2-1.0); CREATININE 1.1 mg/dL (0.7-1.3); PHOSPHOROUS 3.4 mg/dL (2.5-4.9); SGOT/AST 14 U/L (15-37); SGPT/ALT 32 U/L (12-78); TOT PROT 4.8 g/dl (6.4-8.2)
[2017-12-03 06:24] LABS: HEMATOCRIT 30.1 % (35.4-49); HEMOGLOBIN 9.7 GM/dL (11.7-16.9); MCH 27.8 pg (25.7-33.7); MCHC 32.1 g/dl (32.0-35.9); MEAN CELL VOLUME 86.5 fl (80-96); MEAN PLT VOLUME 10.9 fl (7.5-11.1); PLATELET COUNT 91 K/MM3 (134-434); RBC 3.48 M/mm3 (4.00-5.60); RDW 18.8 % (11.9-15.9); WHITE BLOOD COUNT 8.1 K/mm3 (4.0-10.0)
[2017-12-03] MEDS: PREGABALIN 100 MG CAPSULE PO SCH ×3 (06:27→21:40)
[2017-12-03] MEDS: ALBUTEROL SO4 2.5/IPRATROPIUM 0.5 INH SOL 3 ML VIAL.NEB. NEB SCH ×4 (07:45→21:06)
--- NOTE | 2017-12-03 08:32 | PN ---
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, Physician Chief Complaint: Seen and examined in ICU Yesterday's events noted: Periods of further hypotension. CVP 0! Given fluids with improvement in BP More alert today. Had chest pain during hypotensive period yesterday: TnI remains flat. TELE: Paced with increased runs NSVT. Self limited. - Current Medication List Current Medications: Active Medications Acetaminophen (Tylenol -) 650 mg PO Q6H PRN PRN Reason: FEVER Last Admin: 12/02/17 21:40 Dose: 650 mg Albuterol/Ipratropium (Duoneb -) 1 amp NEB RQID [facility] Last Admin: 12/02/17 20:17 Dose: 1 amp Atorvastatin Calcium (Lipitor -) 20 mg PO HS [facility] Last Admin: 12/02/17 21:39 Dose: 20 mg Chlorhexidine Gluconate (Hibiclens For Decolonization -) 1 applic TP HS [facility] Last Admin: 12/02/17 21:38 Dose: 1 applic Duloxetine HCl (Cymbalta -) 60 mg PO DAILY [facility] Last Admin: 12/02/17 10:53 Dose: 60 mg Fluocinonide (Lidex 0.05% Cream -) 1 applic TP DAILY [facility] Last Admin: 12/02/17 10:58 Dose: 1 applic Furosemide (Lasix -) 20 mg PO DAILY [facility] Last Admin: 12/02/17 10:55 Dose: 20 mg Ceftriaxone Sodium 2 gm/ (Dextrose) 100 mls @ 200 mls/hr IVPB DAILY [facility]; Protocol Last Admin: 12/02/17 10:49 Dose: 200 mls/hr Sodium Chloride (Normal Saline -) 1,000 mls @ 100 mls/hr IV ASDIR [facility] Last Admin: 12/02/17 15:19 Dose: 100 mls/hr Isosorbide Dinitrate (Isordil -) 10 mg PO BIDISORDIL [facility] Last Admin: 12/02/17 18:17 Dose: Not Given Levetiracetam (Keppra -) 250 mg PO BID [facility] Last Admin: 12/02/17 21:38 Dose: 250 mg Lisinopril (Prinivil) 40 mg PO DAILY [facility] Last Admin: 12/02/17 10:56 Dose: 40 mg Metoprolol Succinate (Toprol Xl -) 25 mg PO BID [facility] Last Admin: 12/02/17 21:39 Dose: 25 mg Morphine Sulfate (Morphine Sulfate) 4 mg IVPUSH Q6H PRN PRN Reason: PAIN LEVEL 7 - 10 Last Admin: 12/01/17 16:57 Dose: 4 mg Nystatin (Nystop Powder -) 1 applic TP DAILY [facility] Last Admin: 12/02/17 10:58 Dose: 1 applic Pantoprazole Sodium (Protonix -) 40 mg PO DAILY [facility] Last Admin: 12/02/17 10:56 Dose: 40 mg Prednisone (Deltasone -) 30 mg PO DAILY [facility] Last Admin: 12/02/17 10:57 Dose: 30 mg Pregabalin (Lyrica -) 100 mg PO TID [facility] Last Admin: 12/03/17 06:27 Dose: 100 mg Rivaroxaban (Xarelto -) 20 mg PO DAILY [facility] Last Admin: 12/02/17 10:55 Dose: 20 mg - Objective Vital Signs: Vital Signs Temperature 98.5 F 12/03/17 06:00 Pulse Rate 60 12/03/17 07:44 Respiratory Rate 21 12/03/17 07:44 Blood Pressure 115/61 12/03/17 07:44 O2 Sat by Pulse Oximetry (%) 96 12/03/17 07:44 Constitutional: Yes: Calm Eyes: Yes: Conjunctiva Clear Cardiovascular: Yes: Pulse Irregular Respiratory: Yes: Other (decreased breath sounds, no active wheezing. No rales.) Gastrointestinal: Yes: Soft Edema: No Edema: LUE: Trace (gauze dressing) Neurological: Yes: Alert, Oriented Labs: CBC, BMP 12/03/17 05:30 12/03/17 05:30 INR, PTT INR 1.04 (0.83-1.09) 11/27/17 05:30 Laboratory Tests 12/01/17 12/01/17 12/01/17 05:30 15:05 20:45 WBC Hgb Plt Count Sodium Potassium BUN Creatinine Creatine Kinase 57 Troponin I 0.10 H D 0.16 H D 0.14 H 12/02/17 12/03/17 12/03/17 05:30 05:30 05:30 WBC 8.1 Hgb 9.7 L Plt Count 91 L Sodium 141 Potassium 4.3 BUN 39 H Creatinine 1.1 Creatine Kinase Troponin I 0.13 H 12/03/17 05:30 WBC Hgb Plt Count Sodium Potassium BUN Creatinine Creatine Kinase 49 Troponin I 0.10 H - ....Imaging Chest X-ray: Image Reviewed (Clear lung avilez: no congestion or infiltrate.) EKG: Image Reviewed Assessment/Plan IMP: ASHD with chronic angina- deemed not a candidate for cath due to extensive and diffuse aortic calcifications- elevated risk for stroke Anginal episodes yesterday during period of hypotension- decreased coronary perfusion Hypotension secondary to volume depletion, improving NSVT- chronic HTN PAD ICM s/p CHECK AND TRANSFER BEADER-P (refused ICD) Multiple aneurysms AF Traumatic hematoma, upper extremity after fall due to seizure Thrombocytopenia- improving. COPD, acute exacerbation Gram + bacteremia: 1 bottle Pancreatic mass REC: 1. AC resumed. Platelets improved. LUE hematoma improved. H/H stable. Appreciate Heme follow up. Pancreatic mass to be d/w patient/family 2. Steroids being tapered. 3. Abx as per ID , serial cultures have been negative. WBC is down. Afebrile. Duration of abx as per ID. Patient would be at elevated risk for GOPI due to his hypoxia and respiratory status. Furthermore, unclear that GOPI would warp changer significantly. He is not a surgical candidate. Plan d/w and patient who agree. 4. Cont Toprol BID for NSVT: keep K+>4 and Mg2+>2. Patient refused ICD, opted for CHECK AND TRANSFER BEADER-P. Try to minimize use of albuterol as this may contribute to tachycardia and V-ectopy. 5. Low BP last 48 hours due to volume depletion (CVP was 0). Will d/c Lasix. Decrease Lisinopril. 6. Mild elevation TnI with normal CK: probably due to relative hypotension causing underperfusion of coronaries in background of underlying CAD. Optimize hemodynamics- IVF. D/C Lasix. Will follow.
[2017-12-03] MEDS ORDERED: DEXTROSE 5%-WATER 100 ML IVPB ONE (09:49)
[2017-12-03] MEDS ORDERED: PT OWN MED DRAWER 7, Y5N ONE ×2 (09:49→21:26)
[2017-12-03] MEDS: ACETAMINOPHEN 325 MG TABLET (FP) PO PRN ×2 (09:51→22:25)
[2017-12-03] MEDS: ISOSORBIDE DINITRATE 10 MG TABLET (FP) PO SCH (09:52)
[2017-12-03] MEDS: DULoxetine HCL 30 MG CAPSULE.DR (FP) PO SCH (09:52)
[2017-12-03] MEDS: CEFTRIAXONE 2 GM in DEXTROSE 5%-WATER 100 ML IVPB SCH (09:53)
[2017-12-03] MEDS: metoPROLOL SUCCINATE 25 MG TAB.SR.24H (FP) PO SCH ×2 (09:53→21:40)
[2017-12-03] MEDS: PANTOPRAZOLE 40 MG TABLET (FP) PO SCH (09:53)
[2017-12-03] MEDS: RIVAROXABAN 20 MG TABLET PO SCH (09:53)
[2017-12-03] MEDS ORDERED: LISINOPRIL 10 MG TABLET (FP) PO SCH (10:00)
[2017-12-03] MEDS: predniSONE 10 MG TABLET (UD) PO SCH (10:05)
[2017-12-03] MEDS: levETIRAcetam 500 MG TABLET (FP) PO SCH (10:05)
--- NOTE | 2017-12-03 10:06 | PN ---
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, Physician Chief Complaint: left arm swelling and bruising History of Present Illness: 77 yo male PMH of AAA repair 2012, CVA, TAA, afib, DVT, CAD, CHF, COPD, CKD, BPH , PPM, with Btr hypertension, hyperlipidemia, knee replacement and cataract repair who presents to the emergency department via EMS with a seizure like activity prior to arrival. Improved pain in the left arm compared to initial assessment. arm suspended. - Current Medication List Current Medications: Active Medications Acetaminophen (Tylenol -) 650 mg PO Q6H PRN PRN Reason: FEVER Last Admin: 12/03/17 09:51 Dose: 650 mg Albuterol/Ipratropium (Duoneb -) 1 amp NEB RQID [facility] Last Admin: 12/03/17 07:45 Dose: 1 amp Atorvastatin Calcium (Lipitor -) 20 mg PO HS [facility] Last Admin: 12/02/17 21:39 Dose: 20 mg Chlorhexidine Gluconate (Hibiclens For Decolonization -) 1 applic TP HS [facility] Last Admin: 12/02/17 21:38 Dose: 1 applic Duloxetine HCl (Cymbalta -) 60 mg PO DAILY [facility] Last Admin: 12/03/17 09:52 Dose: 60 mg Fluocinonide (Lidex 0.05% Cream -) 1 applic TP DAILY [facility] Last Admin: 12/02/17 10:58 Dose: 1 applic Ceftriaxone Sodium 2 gm/ (Dextrose) 100 mls @ 200 mls/hr IVPB DAILY [facility]; Protocol Last Admin: 12/03/17 09:53 Dose: 200 mls/hr Sodium Chloride (Normal Saline -) 1,000 mls @ 100 mls/hr IV ASDIR [facility] Last Admin: 12/02/17 15:19 Dose: 100 mls/hr Isosorbide Dinitrate (Isordil -) 10 mg PO BIDISORDIL [facility] Last Admin: 12/03/17 09:52 Dose: 10 mg Levetiracetam (Keppra -) 250 mg PO BID [facility] Last Admin: 12/02/17 21:38 Dose: 250 mg Lisinopril (Prinivil) 10 mg PO DAILY [facility] Last Admin: 12/03/17 09:53 Dose: 10 mg Metoprolol Succinate (Toprol Xl -) 25 mg PO BID [facility] Last Admin: 12/03/17 09:53 Dose: 25 mg Morphine Sulfate (Morphine Sulfate) 4 mg IVPUSH Q6H PRN PRN Reason: PAIN LEVEL 7 - 10 Last Admin: 12/01/17 16:57 Dose: 4 mg Nystatin (Nystop Powder -) 1 applic TP DAILY [facility] Last Admin: 12/02/17 10:58 Dose: 1 applic Pantoprazole Sodium (Protonix -) 40 mg PO DAILY [facility] Last Admin: 12/03/17 09:53 Dose: 40 mg Prednisone (Deltasone -) 30 mg PO DAILY [facility] Last Admin: 12/02/17 10:57 Dose: 30 mg Pregabalin (Lyrica -) 100 mg PO TID [facility] Last Admin: 12/03/17 06:27 Dose: 100 mg Rivaroxaban (Xarelto -) 20 mg PO DAILY [facility] Last Admin: 12/03/17 09:53 Dose: 20 mg - Objective Vital Signs: Vital Signs Temperature 98.5 F 12/03/17 06:00 Pulse Rate 60 12/03/17 07:44 Respiratory Rate 21 12/03/17 07:44 Blood Pressure 115/61 12/03/17 07:44 O2 Sat by Pulse Oximetry (%) 97 12/03/17 08:15 Vital Signs Period Temp Pulse Resp BP Sys/Varghese Pulse Ox Last 24 Hr 98 F-98.8 F 60-128 15-26 58-119/33-74 92-97 Intake & Output 12/02/17 12/03/17 12/03/17 23:59 07:59 15:59 Intake Total 1190 750 Output Total 300 300 Balance 890 450 Weight 155 lb 10.342 oz Intake: IV 400 750 Normal Saline - 1,000 ml 400 750 @ 100 mls/hr IV ASDIR [facility] Rx#:[id number] Oral 550 Oral Supplement 240 Output: Urine 300 300 Void 300 300 Other: Voiding Method Urinal # Unmeasured Voids Void 1 Weight Measurement Method Built in [facility] Constitutional: Yes: Well Nourished, No Distress, Calm Eyes: Yes: Conjunctiva Clear, EOM Intact HENT: Yes: Atraumatic, Normocephalic Neck: Yes: Supple, Trachea Midline Cardiovascular: Yes: Regular Rate and Rhythm, S1, S2 Respiratory: Yes: Regular, CTA Bilaterally, On BiPap, On Nasal O2 Gastrointestinal: Yes: WNL, Normal Bowel Sounds, Soft. No: Tenderness ...Rectal Exam: Yes: Deferred Genitourinary: No: CVA Tenderness - Left, CVA Tenderness - Right Extremities: Yes: Cool. No: Calf Tenderness, Cyanosis, Delayed Capillary Refill , Erythema Edema: Yes Edema: LUE: 2+ Peripheral Pulses WNL: Yes Peripheral Pulses: Left Radial: 2+, Right Radial: 2+, Left Doralis Pedis: 2+, Right Dorsalis Pedis: 2+ Integumentary: Yes: Bruising (left arm). No: Erythema, Incision, Jaundice Neurological: Yes: Alert, Oriented Psychiatric: Yes: Alert, Oriented Labs: CBC, BMP 12/03/17 05:30 12/03/17 05:30 INR, PTT INR 1.04 (0.83-1.09) 11/27/17 05:30 Problem List - Problems (1) Traumatic hematoma of left upper arm Assessment/Plan: 77 yo RHD male MMP s/p L CTR [address] Charlie Gilman, no signs of acute compartment syndrome, hematomas have been demonstrated to be superficial. WBC > 20 -now-> 8.1 for 3 days , radial pulse exam 2+. He is more comfortable today. Edema is resolving in the left arm. appreciate vascular input. Elevation above heart level IV antibiotics per ID PT evaluation for Edema management and ROM Please re-call hand surgery as needed This patient is critically ill. Time spent reviewing chart, examining patient, talking with providers and/or family and documentation is 35 minutes. Code(s): S40.022A - CONTUSION OF LEFT UPPER ARM, INITIAL ENCOUNTER Qualifiers: Encounter type: initial encounter Qualified Code(s): S40.022A - Contusion of left upper arm, initial encounter (2) Fall Code(s): W19.XXXA - UNSPECIFIED FALL, INITIAL ENCOUNTER Qualifiers: Encounter type: subsequent encounter Qualified Code(s): W19.XXXD - Unspecified fall, subsequent encounter (3) CAD (coronary artery disease) Code(s): I25.10 - ATHSCL HEART DISEASE OF [place] CORONARY ARTERY W/O ANG PCTRS Qualifiers: Coronary Disease-Associated Artery/Lesion type: [place] artery Associated angina: with stable angina (4) COPD (chronic obstructive pulmonary disease) Code(s): J44.9 - CHRONIC OBSTRUCTIVE PULMONARY DISEASE, UNSPECIFIED Qualifiers: COPD type: COPD with acute exacerbation Qualified Code(s): J44.1 - Chronic obstructive pulmonary disease with (acute) exacerbation (5) History of aortic aneurysm repair Code(s): Z98.890 - OTHER SPECIFIED POSTPROCEDURAL STATES; Z86.79 - PERSONAL HISTORY OF OTHER DISEASES OF THE CIRCULATORY SYSTEM (6) History of arterial bypass of lower extremity Code(s): Z95.828 - PRESENCE OF OTHER VASCULAR IMPLANTS AND GRAFTS
[2017-12-03] MEDS: FLUOCINONIDE 0.05% CREAM (15 GM TUBE) TP SCH (10:08)
[2017-12-03] MEDS: NYSTATIN POWDER 100,000 UNITS/GM - 15 GM TOPICAL POWDER TP SCH (10:08)
--- NOTE | 2017-12-03 10:23 | PN ---
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, Physician Chief Complaint: patient seen and examined awake in bed hypotensive episode noted lasix stopped and lisinopril dose decreased on iv fluids - Current Medication List Current Medications: Active Medications Acetaminophen (Tylenol -) 650 mg PO Q6H PRN PRN Reason: FEVER Last Admin: 12/03/17 09:51 Dose: 650 mg Albuterol/Ipratropium (Duoneb -) 1 amp NEB RQID [facility] Last Admin: 12/03/17 07:45 Dose: 1 amp Atorvastatin Calcium (Lipitor -) 20 mg PO HS [facility] Last Admin: 12/02/17 21:39 Dose: 20 mg Chlorhexidine Gluconate (Hibiclens For Decolonization -) 1 applic TP HS [facility] Last Admin: 12/02/17 21:38 Dose: 1 applic Duloxetine HCl (Cymbalta -) 60 mg PO DAILY [facility] Last Admin: 12/03/17 09:52 Dose: 60 mg Fluocinonide (Lidex 0.05% Cream -) 1 applic TP DAILY [facility] Last Admin: 12/03/17 10:08 Dose: 1 applic Ceftriaxone Sodium 2 gm/ (Dextrose) 100 mls @ 200 mls/hr IVPB DAILY [facility]; Protocol Last Admin: 12/03/17 09:53 Dose: 200 mls/hr Sodium Chloride (Normal Saline -) 1,000 mls @ 100 mls/hr IV ASDIR [facility] Last Admin: 12/02/17 15:19 Dose: 100 mls/hr Isosorbide Dinitrate (Isordil -) 10 mg PO BIDISORDIL [facility] Last Admin: 12/03/17 09:52 Dose: 10 mg Levetiracetam (Keppra -) 250 mg PO BID [facility] Last Admin: 12/03/17 10:05 Dose: 250 mg Lisinopril (Prinivil) 10 mg PO DAILY [facility] Last Admin: 12/03/17 09:53 Dose: 10 mg Metoprolol Succinate (Toprol Xl -) 25 mg PO BID [facility] Last Admin: 12/03/17 09:53 Dose: 25 mg Morphine Sulfate (Morphine Sulfate) 4 mg IVPUSH Q6H PRN PRN Reason: PAIN LEVEL 7 - 10 Last Admin: 12/01/17 16:57 Dose: 4 mg Nystatin (Nystop Powder -) 1 applic TP DAILY [facility] Last Admin: 12/03/17 10:08 Dose: 1 applic Pantoprazole Sodium (Protonix -) 40 mg PO DAILY [facility] Last Admin: 12/03/17 09:53 Dose: 40 mg Prednisone (Deltasone -) 30 mg PO DAILY [facility] Last Admin: 12/03/17 10:05 Dose: 30 mg Pregabalin (Lyrica -) 100 mg PO TID [facility] Last Admin: 12/03/17 06:27 Dose: 100 mg Rivaroxaban (Xarelto -) 20 mg PO DAILY [facility] Last Admin: 12/03/17 09:53 Dose: 20 mg - Objective Vital Signs: Vital Signs Temperature 98.3 F 12/03/17 10:21 Pulse Rate 60 12/03/17 10:00 Respiratory Rate 16 12/03/17 10:00 Blood Pressure 111/61 12/03/17 10:00 O2 Sat by Pulse Oximetry (%) 95 12/03/17 10:11 Constitutional: Yes: Calm Cardiovascular: Yes: Regular Rate and Rhythm, S1, S2 Respiratory: Yes: CTA Bilaterally, Diminished (at bases) Gastrointestinal: Yes: Normal Bowel Sounds, Soft Extremities: Yes: Other (UE edema) Labs: CBC, BMP 12/03/17 05:30 12/03/17 05:30 INR, PTT INR 1.04 (0.83-1.09) 11/27/17 05:30 Problem List - Problems (1) Hypotension Assessment/Plan: CVP monitoring on ivf stop lasix decrease lisinopril dose Code(s): I95.9 - HYPOTENSION, UNSPECIFIED (2) Fall Assessment/Plan: seen by neurology ct head shows old infarcts on keppra Code(s): W19.XXXA - UNSPECIFIED FALL, INITIAL ENCOUNTER Qualifiers: Encounter type: subsequent encounter Qualified Code(s): W19.XXXD - Unspecified fall, subsequent encounter (3) Hematoma Assessment/Plan: vascular on board elevate the arm AC restarted monitor h/h Code(s): T14.8XXA - OTHER INJURY OF UNSPECIFIED BODY REGION, INITIAL ENCOUNTER (4) CAD (coronary artery disease) Assessment/Plan: on isordil and lisinopril ICM s/p [employer] refused ICD in past NSVT chronic on toprol BID maintain Mg>4 and K>2 Code(s): I25.10 - ATHSCL HEART DISEASE OF [place] CORONARY ARTERY W/O ANG PCTRS Qualifiers: Coronary Disease-Associated Artery/Lesion type: [place] artery Associated angina: with stable angina (5) COPD (chronic obstructive pulmonary disease) Assessment/Plan: bronchodilators and oxygen prednisone Code(s): J44.9 - CHRONIC OBSTRUCTIVE PULMONARY DISEASE, UNSPECIFIED Qualifiers: COPD type: COPD with acute exacerbation Qualified Code(s): J44.1 - Chronic obstructive pulmonary disease with (acute) exacerbation (6) Paroxysmal atrial fibrillation Assessment/Plan: on xarelto Code(s): I48.0 - PAROXYSMAL ATRIAL FIBRILLATION (7) Bacteremia Assessment/Plan: strep mitis bactermia on iv rocephin Day 7 Code(s): R78.81 - BACTEREMIA
--- NOTE | 2017-12-03 12:32 | PN ---
Teaching Attending Note Name of Resident: Erna Newman ATTENDING PHYSICIAN STATEMENT I saw and evaluated the patient. I reviewed the resident's note and discussed the case with the resident. I agree with the resident's findings and plan as documented. SUBJECTIVE: Patient seen and examined in the ICU. Hemodynamics improving. CP has resolved with improving BP. Off HF NC O2. CVP : 4 Some dry cough and loose stools reported. Intake & Output 11/30/17 12/01/17 12/02/17 12/03/17 23:59 23:59 23:59 23:59 Intake Total 352 903 6651 1050 Output Total 2000 1100 700 550 Balance -1400 -220 1050 500 Weight 154 lb 12.232 oz 153 lb 3.54 oz 151 lb 1.6 oz 155 lb 10.342 oz Last Vital Signs Temp Pulse Resp BP Pulse Ox 98.3 F 63 16 117/55 95 12/03/17 10:21 12/03/17 10:39 12/03/17 10:39 12/03/17 10:39 12/03/17 10:11 Home Medication List Medication Instructions Recorded Confirmed Type Albuterol 0.083% Nebulizer Suki 1 neb NEB QID 11/08/17 11/24/17 History [Ventolin 0.083% Nebulizer Soln -] Aspirin [Ecotrin] 81 mg PO DAILY 11/08/17 11/24/17 History Budesonide/Formeterol Fumarate 1 inh PO BID 11/08/17 11/24/17 History [SYMBICORT 160/4.5mcg -] Duloxetine HCl [Cymbalta -] 60 mg PO DAILY 11/08/17 11/24/17 History Ferrous Sulfate 325 mg PO DAILY 11/08/17 11/24/17 History Fluocinonide 0.05% Cream [Lidex 1 applic TP DAILY 11/08/17 11/24/17 History 0.05% Cream -] Isosorbide Dinitrate [Isordil -] 20 mg PO BID 11/08/17 11/24/17 History Lovastatin 10 mg PO HS 11/08/17 11/24/17 History Pantoprazole Sodium [Protonix] 40 mg PO DAILY 11/08/17 11/24/17 History Pregabalin [Lyrica] 100 mg PO TID 11/08/17 11/24/17 History Rivaroxaban [Xarelto -] 20 mg PO DAILY 11/08/17 11/24/17 History Tamsulosin HCl [Flomax] 0.4 mg PO HS 11/08/17 11/24/17 History Active Medications Generic Name Dose Route Start Last Admin Trade Name Freq PRN Reason Stop Dose Admin Acetaminophen 650 mg 11/25/17 20:29 12/03/17 09:51 Tylenol - PO 650 mg Q6H PRN Administration FEVER Albuterol/Ipratropium 1 amp 11/26/17 12:00 12/03/17 07:45 Duoneb - NEB 1 amp RQID DIANNE Administration Atorvastatin Calcium 20 mg 11/25/17 22:00 12/02/17 21:39 Lipitor - PO 20 mg HS DIANNE Administration Chlorhexidine Gluconate 1 applic 11/25/17 22:00 12/02/17 21:38 Hibiclens For Decolonization - TP 1 applic HS DIANNE Administration Duloxetine HCl 60 mg 11/26/17 10:00 12/03/17 09:52 Cymbalta - PO 60 mg DAILY DIANNE Administration Fluocinonide 1 applic 11/26/17 10:00 12/03/17 10:08 Lidex 0.05% Cream - TP 1 applic DAILY DIANNE Administration Ceftriaxone Sodium 2 gm/ 100 mls @ 200 mls/hr 11/28/17 17:15 12/03/17 09:53 Dextrose IVPB 200 mls/hr DAILY DINANE Administration Protocol Sodium Chloride 1,000 mls @ 100 mls/hr 12/02/17 15:15 12/02/17 15:19 Normal Saline - IV 100 mls/hr ASDIR DIANNE Administration Isosorbide Dinitrate 10 mg 11/26/17 10:00 12/03/17 09:52 Isordil - PO 10 mg BIDISORDIL DIANNE Administration Levetiracetam 250 mg 11/25/17 22:00 12/03/17 10:05 Keppra - PO 250 mg BID DIANNE Administration Lisinopril 10 mg 12/03/17 10:00 12/03/17 09:53 Prinivil PO 10 mg DAILY DIANNE Administration Metoprolol Succinate 25 mg 11/25/17 22:00 12/03/17 09:53 Toprol Xl - PO 25 mg BID DIANNE Administration Morphine Sulfate 4 mg 11/29/17 09:22 12/01/17 16:57 Morphine Sulfate IVPUSH 4 mg Q6H PRN Administration PAIN LEVEL 7 - 10 Nystatin 1 applic 11/30/17 10:00 12/03/17 10:08 Nystop Powder - TP 1 applic DAILY DIANNE Administration Pantoprazole Sodium 40 mg 11/26/17 10:00 12/03/17 09:53 Protonix - PO 40 mg DAILY DIANNE Administration Prednisone 30 mg 11/30/17 10:00 12/03/17 10:05 Deltasone - PO 30 mg DAILY DIANNE Administration Pregabalin 100 mg 11/25/17 22:00 12/03/17 06:27 Lyrica - PO 100 mg TID DIANNE Administration Rivaroxaban 20 mg 12/01/17 15:45 12/03/17 09:53 Xarelto - PO 20 mg DAILY DIANNE Administration Constitutional: Yes: Awake and alert, breathing non-labored Eyes: Yes: Conjunctiva Clear HENT: Yes: Atraumatic Cardiovascular: Yes: S1, S2 Respiratory: Yes: few scattered rhonchi, no wheeze Gastrointestinal: Yes: Soft, (+) BS Genitourinary: Yes: WNL Edema: Yes Edema: LUE: 1+ Integumentary: Yes: Bruising Neurological: Yes: Oriented, non-focal Labs: Laboratory Results - last 24 hr 11/30/17 12/02/17 12/02/17 05:30 13:00 13:00 WBC RBC Hgb Hct 29.3 L MCV MCH MCHC RDW Plt Count MPV Sodium Potassium Chloride Carbon Dioxide Anion Gap BUN Creatinine Creat Clearance w eGFR Random Glucose Calcium Phosphorus Magnesium Total Bilirubin AST ALT Alkaline Phosphatase Creatine Kinase Troponin I Total Protein Albumin Folate 1833 Folate Hemolysate 537.0 Stool Occult Blood Negative Negative 12/03/17 12/03/17 12/03/17 05:30 05:30 05:30 WBC 8.1 RBC 3.48 L Hgb 9.7 L Hct 30.1 L MCV 86.5 MCH 27.8 MCHC 32.1 RDW 18.8 H Plt Count 91 L MPV 10.9 Sodium 141 Potassium 4.3 Chloride 111 H Carbon Dioxide 26 Anion Gap 4 L BUN 39 H Creatinine 1.1 Creat Clearance w eGFR > 60 Random Glucose 101 D Calcium 7.8 L Phosphorus 3.4 D Magnesium 2.5 H Total Bilirubin 0.5 AST 14 L D ALT 32 D Alkaline Phosphatase 44 L Creatine Kinase 49 Troponin I 0.10 H Total Protein 4.8 L Albumin 2.3 L Folate Folate Hemolysate Stool Occult Blood Problem List - Problems (1) Fall Code(s): W19.XXXA - UNSPECIFIED FALL, INITIAL ENCOUNTER Qualifiers: Encounter type: subsequent encounter Qualified Code(s): W19.XXXD - Unspecified fall, subsequent encounter (2) CAD (coronary artery disease) Code(s): I25.10 - ATHSCL HEART DISEASE OF [place] CORONARY ARTERY W/O ANG PCTRS Qualifiers: Coronary Disease-Associated Artery/Lesion type: [place] artery Associated angina: with stable angina (3) CHF (congestive heart failure) Code(s): I50.9 - HEART FAILURE, UNSPECIFIED (4) CKD (chronic kidney disease) Code(s): N18.9 - CHRONIC KIDNEY DISEASE, UNSPECIFIED Qualifiers: Chronic kidney disease stage: stage 3 (moderate) Qualified Code(s): N18.3 - Chronic kidney disease, stage 3 (moderate) Assessment/Plan Resolving hypotension likely due to volume depletion Low clinical suspicion of PE (Had CTA in September was (-)) CKD COPD exacerbation AAA Hx CVA Afib NSVT HTN Insomnia Hypoxic respiratory failure CAD BPH Microscopic hematuria Plan Continue IVF Continue to hold diuretic Follow CVP Monitor on NC O2 BD TX Follow UE exam Taper Prednisone Rate control per Cardiology Cardiac Telemetry monitoring Continue Arya Alberto Critical care time spent in reviewing chart, evaluating patient and formulating plan - 36 minutes.
--- NOTE | 2017-12-03 13:00 | PN ---
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, Physician History of Present Illness: Pt seen and examined at bedside. He remains in the ICU. His blood pressure was low and he required fluids. His mental status is improved today. - Current Medication List Current Medications: Active Medications Acetaminophen (Tylenol -) 650 mg PO Q6H PRN PRN Reason: FEVER Last Admin: 12/03/17 09:51 Dose: 650 mg Albuterol/Ipratropium (Duoneb -) 1 amp NEB RQID DIANNE Last Admin: 12/03/17 07:45 Dose: 1 amp Atorvastatin Calcium (Lipitor -) 20 mg PO HS DIANNE Last Admin: 12/02/17 21:39 Dose: 20 mg Chlorhexidine Gluconate (Hibiclens For Decolonization -) 1 applic TP HS [facility] Last Admin: 12/02/17 21:38 Dose: 1 applic Duloxetine HCl (Cymbalta -) 60 mg PO DAILY [facility] Last Admin: 12/03/17 09:52 Dose: 60 mg Fluocinonide (Lidex 0.05% Cream -) 1 applic TP DAILY [facility] Last Admin: 12/03/17 10:08 Dose: 1 applic Ceftriaxone Sodium 2 gm/ (Dextrose) 100 mls @ 200 mls/hr IVPB DAILY [facility]; Protocol Last Admin: 12/03/17 09:53 Dose: 200 mls/hr Sodium Chloride (Normal Saline -) 1,000 mls @ 100 mls/hr IV ASDIR [facility] Last Admin: 12/02/17 15:19 Dose: 100 mls/hr Isosorbide Dinitrate (Isordil -) 10 mg PO BIDISORDIL DIANNE Last Admin: 12/03/17 09:52 Dose: 10 mg Levetiracetam (Keppra -) 250 mg PO BID DIANNE Last Admin: 12/03/17 10:05 Dose: 250 mg Lisinopril (Prinivil) 10 mg PO DAILY DIANNE Last Admin: 12/03/17 09:53 Dose: 10 mg Metoprolol Succinate (Toprol Xl -) 25 mg PO BID DIANNE Last Admin: 12/03/17 09:53 Dose: 25 mg Morphine Sulfate (Morphine Sulfate) 4 mg IVPUSH Q6H PRN PRN Reason: PAIN LEVEL 7 - 10 Last Admin: 12/01/17 16:57 Dose: 4 mg Nystatin (Nystop Powder -) 1 applic TP DAILY DIANNE Last Admin: 12/03/17 10:08 Dose: 1 applic Pantoprazole Sodium (Protonix -) 40 mg PO DAILY [facility] Last Admin: 12/03/17 09:53 Dose: 40 mg Prednisone (Deltasone -) 30 mg PO DAILY [facility] Last Admin: 12/03/17 10:05 Dose: 30 mg Pregabalin (Lyrica -) 100 mg PO TID [facility] Last Admin: 12/03/17 06:27 Dose: 100 mg Rivaroxaban (Xarelto -) 20 mg PO DAILY [facility] Last Admin: 12/03/17 09:53 Dose: 20 mg - Objective Vital Signs: Vital Signs Temperature 98.3 F 12/03/17 10:21 Pulse Rate 72 12/03/17 12:00 Respiratory Rate 15 12/03/17 12:00 Blood Pressure 132/69 12/03/17 12:00 O2 Sat by Pulse Oximetry (%) 95 12/03/17 10:11 Constitutional: Yes: Calm Eyes: Yes: Conjunctiva Clear HENT: Yes: Atraumatic Cardiovascular: Yes: S1, S2 Respiratory: Yes: On Nasal O2 Gastrointestinal: Yes: Soft Genitourinary: Yes: WNL Musculoskeletal: Yes: WNL Edema: Yes Edema: LUE: 1+ Neurological: Yes: Oriented Psychiatric: Yes: Oriented Labs: CBC, BMP 12/03/17 05:30 12/03/17 05:30 INR, PTT INR 1.04 (0.83-1.09) 11/27/17 05:30 - ....Imaging Chest X-ray: Report Reviewed Problem List - Problems (1) Fall Code(s): W19.XXXA - UNSPECIFIED FALL, INITIAL ENCOUNTER Qualifiers: Encounter type: subsequent encounter Qualified Code(s): W19.XXXD - Unspecified fall, subsequent encounter (2) CAD (coronary artery disease) Code(s): I25.10 - ATHSCL HEART DISEASE OF [place] CORONARY ARTERY W/O ANG PCTRS Qualifiers: Coronary Disease-Associated Artery/Lesion type: [place] artery Associated angina: with stable angina (3) CHF (congestive heart failure) Code(s): I50.9 - HEART FAILURE, UNSPECIFIED (4) CKD (chronic kidney disease) Code(s): N18.9 - CHRONIC KIDNEY DISEASE, UNSPECIFIED Qualifiers: Chronic kidney disease stage: stage 3 (moderate) Qualified Code(s): N18.3 - Chronic kidney disease, stage 3 (moderate) Assessment/Plan Current Medications Generic Name Dose Route Start Last Admin Trade Name Freq PRN Reason Stop Dose Admin Acetaminophen 650 mg 11/25/17 20:29 12/03/17 09:51 Tylenol - PO 650 mg Q6H PRN Administration FEVER Albuterol/Ipratropium 1 amp 11/26/17 12:00 12/03/17 07:45 Duoneb - NEB 1 amp RQID DIANNE Administration Atorvastatin Calcium 20 mg 11/25/17 22:00 12/02/17 21:39 Lipitor - PO 20 mg HS DIANNE Administration Chlorhexidine Gluconate 1 applic 11/25/17 22:00 12/02/17 21:38 Hibiclens For Decolonization - TP 1 applic HS DIANNE Administration Duloxetine HCl 60 mg 11/26/17 10:00 12/03/17 09:52 Cymbalta - PO 60 mg DAILY DIANNE Administration Fluocinonide 1 applic 11/26/17 10:00 12/03/17 10:08 Lidex 0.05% Cream - TP 1 applic DAILY DIANNE Administration Ceftriaxone Sodium 2 gm/ 100 mls @ 200 mls/hr 11/28/17 17:15 12/03/17 09:53 Dextrose IVPB 200 mls/hr DAILY DIANNE Administration Protocol Sodium Chloride 1,000 mls @ 100 mls/hr 12/02/17 15:15 12/02/17 15:19 Normal Saline - IV 100 mls/hr ASDIR DIANNE Administration Isosorbide Dinitrate 10 mg 11/26/17 10:00 12/03/17 09:52 Isordil - PO 10 mg BIDISORDIL DIANNE Administration Levetiracetam 250 mg 11/25/17 22:00 12/03/17 10:05 Keppra - PO 250 mg BID DIANNE Administration Lisinopril 10 mg 12/03/17 10:00 12/03/17 09:53 Prinivil PO 10 mg DAILY DIANNE Administration Metoprolol Succinate 25 mg 11/25/17 22:00 12/03/17 09:53 Toprol Xl - PO 25 mg BID DIANNE Administration Morphine Sulfate 4 mg 11/29/17 09:22 12/01/17 16:57 Morphine Sulfate IVPUSH 4 mg Q6H PRN Administration PAIN LEVEL 7 - 10 Nystatin 1 applic 11/30/17 10:00 12/03/17 10:08 Nystop Powder - TP 1 applic DAILY DIANNE Administration Pantoprazole Sodium 40 mg 11/26/17 10:00 12/03/17 09:53 Protonix - PO 40 mg DAILY DIANNE Administration Prednisone 30 mg 11/30/17 10:00 12/03/17 10:05 Deltasone - PO 30 mg DAILY DIANNE Administration Pregabalin 100 mg 11/25/17 22:00 12/03/17 06:27 Lyrica - PO 100 mg TID DIANNE Administration Rivaroxaban 20 mg 12/01/17 15:45 12/03/17 09:53 Xarelto - PO 20 mg DAILY DIANNE Administration Impression 1. CKD 2. COPD exacerbation 3. AAA 4. hx CVA 5. a-fib 6. HTN 7. insomnia 8. hypoxic resp failure 9. CAD 10. BPH 12. microscopic hematuria 13. hypoxia Plan - renal function is stable - bp meds adjusted - can hold fluids once bp improved - monitor lytes - avoid nsaids - will follow
[2017-12-03] MEDS ORDERED: predniSONE 20 MG TABLET (UD) PO SCH (13:02)
--- NOTE | 2017-12-03 15:01 | PN ---
Physical Exam: SUBJECTIVE: Patient is a 77 y/o male with a history of afib, HTN, HLD, CAD, COPD, DM, PAD, AAA who is here for acute hypoxic respiratory failure 2/2 to COPD exacerbation. Patient was on high flow overnight and switched to nasal cannula this morning. Patient has been tolerating well and can go to the floors today. OBJECTIVE: Vital Signs Temperature 98.3 F 12/03/17 10:21 Pulse Rate 63 12/03/17 14:00 Respiratory Rate 17 12/03/17 14:00 Blood Pressure 123/67 12/03/17 14:00 O2 Sat by Pulse Oximetry (%) 95 12/03/17 10:11 GENERAL: Awake and alert EYES: Pupils equal, round and reactive to light, extraocular movements intact EARS, NOSE, THROAT: Ears normal, nares patent, oropharynx clear without exudates. Moist mucous membranes. LUNGS: lungs clear to auscultation, lower base expiratory wheezes, no accessory muscle use HEART: Regular rate and rhythm, ABDOMEN: Soft, nontender, not distended, LOWER EXTREMITIES: 2+ dp pulses, warm, well-perfused. No calf tenderness. No peripheral edema. SKIN: large hematoma on LUE from wrist and extending up midway of arm, radial pulse intact, ROM intact, hand manager services intact CBCD WBC 8.1 K/mm3 (4.0-10.0) 12/03/17 05:30 RBC 3.48 M/mm3 (4.00-5.60) L 12/03/17 05:30 Hgb 9.7 GM/dL (11.7-16.9) L 12/03/17 05:30 Hct 30.1 % (35.4-49) L 12/03/17 05:30 MCV 86.5 fl (80-96) 12/03/17 05:30 MCHC 32.1 g/dl (32.0-35.9) 12/03/17 05:30 RDW 18.8 % (11.9-15.9) H 12/03/17 05:30 Plt Count 91 K/MM3 (134-434) L 12/03/17 05:30 MPV 10.9 fl (7.5-11.1) 12/03/17 05:30 CMP Sodium 141 mmol/L (136-145) 12/03/17 05:30 Potassium 4.3 mmol/L (3.5-5.1) 12/03/17 05:30 Chloride 111 mmol/L (98-107) H 12/03/17 05:30 Carbon Dioxide 26 mmol/L (21-32) 12/03/17 05:30 Anion Gap 4 MMOL/L (8-16) L 12/03/17 05:30 BUN 39 mg/dL (7-18) H 12/03/17 05:30 Creatinine 1.1 mg/dL (0.7-1.3) 12/03/17 05:30 Creat Clearance w eGFR > 60 (>60) 12/03/17 05:30 Calcium 7.8 mg/dL (8.5-10.1) L 12/03/17 05:30 Total Bilirubin 0.5 mg/dL (0.2-1.0) 12/03/17 05:30 AST 14 U/L (15-37) L D 12/03/17 05:30 ALT 32 U/L (12-78) D 12/03/17 05:30 Alkaline Phosphatase 44 U/L (45-117) L 12/03/17 05:30 Total Protein 4.8 g/dl (6.4-8.2) L 12/03/17 05:30 Albumin 2.3 g/dl (3.4-5.0) L 12/03/17 05:30 Active Medications Acetaminophen (Tylenol -) 650 mg PO Q6H PRN PRN Reason: FEVER Last Admin: 12/03/17 09:51 Dose: 650 mg Albuterol/Ipratropium (Duoneb -) 1 amp NEB RQID [facility] Last Admin: 12/03/17 11:25 Dose: Not Given Atorvastatin Calcium (Lipitor -) 20 mg PO HS [facility] Last Admin: 12/02/17 21:39 Dose: 20 mg Chlorhexidine Gluconate (Hibiclens For Decolonization -) 1 applic TP HS [facility] Last Admin: 12/02/17 21:38 Dose: 1 applic Duloxetine HCl (Cymbalta -) 60 mg PO DAILY [facility] Last Admin: 12/03/17 09:52 Dose: 60 mg Fluocinonide (Lidex 0.05% Cream -) 1 applic TP DAILY [facility] Last Admin: 12/03/17 10:08 Dose: 1 applic Ceftriaxone Sodium 2 gm/ (Dextrose) 100 mls @ 200 mls/hr IVPB DAILY [facility]; Protocol Last Admin: 12/03/17 09:53 Dose: 200 mls/hr Sodium Chloride (Normal Saline -) 1,000 mls @ 100 mls/hr IV ASDIR [facility] Last Admin: 12/02/17 15:19 Dose: 100 mls/hr Isosorbide Dinitrate (Isordil -) 10 mg PO BIDISORDIL [facility] Last Admin: 12/03/17 09:52 Dose: 10 mg Levetiracetam (Keppra -) 250 mg PO BID [facility] Last Admin: 12/03/17 10:05 Dose: 250 mg Lisinopril (Prinivil) 10 mg PO DAILY [facility] Last Admin: 12/03/17 09:53 Dose: 10 mg Metoprolol Succinate (Toprol Xl -) 25 mg PO BID [facility] Last Admin: 12/03/17 09:53 Dose: 25 mg Morphine Sulfate (Morphine Sulfate) 4 mg IVPUSH Q6H PRN PRN Reason: PAIN LEVEL 7 - 10 Last Admin: 12/01/17 16:57 Dose: 4 mg Nystatin (Nystop Powder -) 1 applic TP DAILY [facility] Last Admin: 12/03/17 10:08 Dose: 1 applic Pantoprazole Sodium (Protonix -) 40 mg PO DAILY [facility] Last Admin: 12/03/17 09:53 Dose: 40 mg Prednisone (Deltasone -) 20 mg PO DAILY [facility] Pregabalin (Lyrica -) 100 mg PO TID [facility] Last Admin: 12/03/17 13:50 Dose: 100 mg Rivaroxaban (Xarelto -) 20 mg PO DAILY [facility] Last Admin: 12/03/17 09:53 Dose: 20 mg ASSESSMENT/PLAN: Patient is a 77 y/o male with a history of afib, HTN, HLD, CAD, COPD, DM, PAD, AAA who is here for acute hypoxic respiratory failure 2/2 to COPD exacerbation. Neuro Seizure like actvity/ vs fall - Neurology Dr. Melo: may be partial seizure - Keppra 250 mg po BID - head CT: no acute intracranial hemorrhage or acute vascular territory infarction - EEG when possible - consulted Dr. Zamudio: Continue with Duloxatine 60mg po od, Ativan 1mg IM Q 8hrs PRN for aggressive behaviour Cardio Hypotension - Central line placed 12/02 - no pressors currently, suggest levophed if needed - can also give bolus afib - metoprolol 25 mg po BID - currently rate controlled and stable - Xarelto 20 mg daily restarted CAD/HTN - aspirin 81 mg po daily - Isosorbide dinitrate 10 mg po - lipitor 20 mg po hs - privinil restarted at 10 mg daily - echo inadequate study tropinemia - likely demand - f/u Dr. Flora Kendall acute on chronic hypoxic respiratory failure / to COPD exacerbation - CXR: no sign of acute process - patient on oxygen at home - patient on 4L nasal cannula - keep oxygen saturation between 88-92 % - unlikely to be a PE, patients hypoxia likely chronic, Patient last CTA 10/18 showed history of emphysema - patient currently anticoagulated COPD - Prednisone taper 20 mg today - duonebs QID - albuterol q4h - patient on prednisone at home, determine dose and continue as to not cause adrenal insufficiency Renal - furosemide 20 mg po daily - monitor I's & O's - f/u Dr. Ange DÍAZ Hematoma of LUE - UE doppler: no evidence or arterial dissection or aneyursm , superficial hematomas in LUE - history of AAA repair at [facility] - per vascular Dr. Hendricks and surgery Dr. Palumbo, no evidence of compartment syndrome - hold all anticoagulation as to not worsen hematoma - monitor hemoglobin dropping slightly - continue PT for ROM and to help edema - keep arm elevated above heart Infectious disease - bcx: Streptococcus Mitis - Ceftriaxone ( day 6) - treat for two weeks duration per Dr. Demar VALADEZ ppx - protonix 40 mg po daily BPH - tamsulosin .4 mg Endocrine DM - Lyrica 100 mg po TID - A1 C: 6.0 - TSH .12, Free T4:1 DVT ppx - SCD's depression - cymbalta 60 mg po daily FEN - diabetic/low sodium diet - repleted phosporus Dispo:monitor oxygenation Visit type - Emergency Visit Emergency Visit: No - New Patient This patient is new to me today: No - Critical Care Critical Care patient: Yes Total Critical Care Time (in minutes): 40 Critical Care Statement: The care of this patient involved high complexity decision making to prevent further life threatening deterioration of the patient 's condition and/or to evaluate & treat vital organ system(s) failure or risk of failure.
[2017-12-03] MEDS ORDERED: SODIUM CHLORIDE 1,000 ML IV SCH (16:45)
[2017-12-03] MEDS: SODIUM CHLORIDE 1,000 ML IV SCH (17:40)
[2017-12-03] MEDS ORDERED: morphine SULFATE 4 MG/ML VIAL IVPUSH PRN (18:52)
[2017-12-03] MEDS: ATORVASTATIN CA 20 MG TABLET (FP) PO SCH (21:40)
[2017-12-03] MEDS: levETIRAcetam 250 MG TABLET (FP) PO SCH (21:41)
[2017-12-03] MEDS: CHLORHEXIDINE GLUCONATE 4% CLEANSER FOR DECOLONIZATION TP SCH (21:47)
[2017-12-04 05:44] LABS: BASO % 0.1 % (0-2.0); EOS % 0.9 % (0-4.5); HEMOGLOBIN 9.3 GM/dL (11.7-16.9); LYMPH % 8.1 % (8-40); MCH 27.9 pg (25.7-33.7); MCHC 32.3 g/dl (32.0-35.9); MEAN CELL VOLUME 86.6 fl (80-96); MEAN PLT VOLUME 10.1 fl (7.5-11.1); MONO % 6.2 % (3.8-10.2); NEUT % 84.7 % (42.8-82.8); PLATELET COUNT 101 K/MM3 (134-434); RBC 3.34 M/mm3 (4.00-5.60); RDW 18.8 % (11.9-15.9)
[2017-12-04 06:07] LABS: ALBUMIN 2.1 g/dl (3.4-5.0); ANION GAP 3 MMOL/L (8-16); BILIRUBIN,TOTAL 0.5 mg/dL (0.2-1.0); BLOOD UREA NITROGEN 28 mg/dL (7-18); CALCIUM 7.6 mg/dL (8.5-10.1); CHLORIDE 110 mmol/L (98-107); CO2 28 mmol/L (21-32); CREATININE 0.9 mg/dL (0.7-1.3); GLUCOSE,RANDOM 72 mg/dL (74-106); MAGNESIUM 2.4 mg/dL (1.8-2.4); PHOSPHOROUS 2.8 mg/dL (2.5-4.9); POTASSIUM 4.6 mmol/L (3.5-5.1); SGOT/AST 15 U/L (15-37); SGPT/ALT 29 U/L (12-78); SODIUM 141 mmol/L (136-145)
[2017-12-04 06:08] LABS: ALK PHOS 43 U/L (45-117); TOT PROT 4.5 g/dl (6.4-8.2)
[2017-12-04] MEDS: PREGABALIN 100 MG CAPSULE PO SCH ×3 (06:12→21:40)
[2017-12-04] MEDS: ACETAMINOPHEN 325 MG TABLET (FP) PO PRN ×2 (07:50→14:27)
[2017-12-04] MEDS: ALBUTEROL SO4 2.5/IPRATROPIUM 0.5 INH SOL 3 ML VIAL.NEB. NEB SCH ×4 (08:01→21:18)
--- NOTE | 2017-12-04 08:48 | PN ---
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, Physician Chief Complaint: alert, no acute distress TELE: Paced. Decreased frequency NSVT last 24 hours History of Present Illness: Denied any further CP BP has almost normalized over last 24 hours w/ holding Lasix and d/c amlodipine Renal fxn and LFTs are stable. - Current Medication List Current Medications: Active Medications Acetaminophen (Tylenol -) 650 mg PO Q6H PRN PRN Reason: FEVER Last Admin: 12/03/17 22:25 Dose: 650 mg Albuterol/Ipratropium (Duoneb -) 1 amp NEB RQID [facility] Last Admin: 12/04/17 08:01 Dose: 1 amp Atorvastatin Calcium (Lipitor -) 20 mg PO HS [facility] Last Admin: 12/03/17 21:40 Dose: 20 mg Chlorhexidine Gluconate (Hibiclens For Decolonization -) 1 applic TP HS [facility] Last Admin: 12/03/17 21:47 Dose: 1 applic Duloxetine HCl (Cymbalta -) 60 mg PO DAILY [facility] Fluocinonide (Lidex 0.05% Cream -) 1 applic TP DAILY [facility] Ceftriaxone Sodium 2 gm/ (Dextrose) 100 mls @ 200 mls/hr IVPB DAILY [facility]; Protocol Isosorbide Dinitrate (Isordil -) 10 mg PO BIDISORDIL [facility] Levetiracetam (Keppra -) 250 mg PO BID [facility] Last Admin: 12/03/17 21:41 Dose: 250 mg Lisinopril (Prinivil) 10 mg PO DAILY [facility] Metoprolol Succinate (Toprol Xl -) 25 mg PO BID [facility] Last Admin: 12/03/17 21:40 Dose: 25 mg Morphine Sulfate (Morphine Sulfate) 4 mg IVPUSH Q6H PRN PRN Reason: PAIN LEVEL 7 - 10 Nystatin (Nystop Powder -) 1 applic TP DAILY [facility] Pantoprazole Sodium (Protonix -) 40 mg PO DAILY [facility] Prednisone (Deltasone -) 20 mg PO DAILY [facility] Pregabalin (Lyrica -) 100 mg PO TID [facility] Last Admin: 12/04/17 06:12 Dose: 100 mg Rivaroxaban (Xarelto -) 20 mg PO DAILY [facility] - Objective Vital Signs: Vital Signs Temperature 97.6 F 12/03/17 22:00 Pulse Rate 60 12/04/17 08:07 Respiratory Rate 16 12/04/17 08:19 Blood Pressure 133/94 12/04/17 08:07 O2 Sat by Pulse Oximetry (%) 96 12/04/17 08:19 Constitutional: Yes: Calm Eyes: Yes: Conjunctiva Clear Cardiovascular: Yes: Regular Rate and Rhythm Respiratory: Yes: Rhonchi (no rales or active wheezing) Gastrointestinal: Yes: Soft Edema: LUE: Trace (gauze dressing), LLE: Trace, RLE: Trace Neurological: Yes: Alert Labs: CBC, BMP 12/04/17 05:30 12/04/17 05:30 INR, PTT INR 1.04 (0.83-1.09) 11/27/17 05:30 Microbiology 11/26/17 16:40 Blood - Peripheral Venous Blood Culture - Final NO GROWTH AFTER 5 DAYS INCUBATION 11/26/17 14:20 Blood - Peripheral Venous Blood Culture - Final NO GROWTH AFTER 5 DAYS INCUBATION Laboratory Tests 11/30/17 12/02/17 12/03/17 05:30 13:00 05:30 WBC Hgb Plt Count Sodium Potassium BUN Creatinine AST ALT Creatine Kinase 49 Troponin I 0.10 H Stool Occult Blood Negative Heparin-Ind Plt Ab Scrn Pending 12/04/17 12/04/17 05:30 05:30 WBC 7.0 Hgb 9.3 L Plt Count 101 L Sodium 141 Potassium 4.6 BUN 28 H Creatinine 0.9 AST 15 ALT 29 Creatine Kinase Troponin I Stool Occult Blood Heparin-Ind Plt Ab Scrn - ....Imaging EKG: Image Reviewed Assessment/Plan IMP: ASHD with chronic angina- deemed not a candidate for cath due to extensive and diffuse aortic calcifications- elevated risk for stroke Anginal episodes during period of hypotension- decreased coronary perfusion: Now Resolved. Hypotension secondary to volume depletion, improved NSVT- chronic HTN PAD ICM s/p [employer] (refused ICD) Multiple aneurysms AF Traumatic hematoma, upper extremity after fall due to seizure Thrombocytopenia- improving. COPD, acute exacerbation Gram + bacteremia: 1 bottle Pancreatic mass REC: 1. AC resumed. Platelets improved. LUE hematoma improved. H/H stable.Pancreatic mass to be d/w patient/family 2. Oral Steroids being tapered. 3. Abx as per ID , serial cultures have been negative. WBC is down. Afebrile. Duration of abx as per ID. Patient would be at elevated risk for GOPI due to his hypoxia and respiratory status. 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 He is not a surgical candidate. Plan d/w and patient who agree. 4. Cont Toprol BID for NSVT: keep K+>4 and Mg2+>2. Patient refused ICD, opted for [employer]. Try to minimize use of albuterol as this may contribute to tachycardia and V-ectopy. 5. Hypotension resolved with IVF and d/c of diuretics. Amlodipine discontinued. Renal fx and LFTs stable. 6. Mild elevation TnI with normal CK: probably due to relative hypotension causing underperfusion of coronaries in background of underlying CAD. No further angina with normalized BP. Will follow.
[2017-12-04] MEDS ORDERED: PT OWN MED DRAWER 7, Y5N ONE ×3 (09:22→21:36)
[2017-12-04] MEDS ORDERED: DEXTROSE 5%-WATER 100 ML IVPB ONE (09:23)
[2017-12-04] MEDS: CEFTRIAXONE 2 GM in DEXTROSE 5%-WATER 100 ML IVPB SCH (09:32)
[2017-12-04] MEDS: DULoxetine HCL 30 MG CAPSULE.DR (FP) PO SCH (09:34)
[2017-12-04] MEDS: predniSONE 10 MG TABLET (UD) PO SCH (09:35)
[2017-12-04] MEDS: PANTOPRAZOLE 40 MG TABLET (FP) PO SCH (09:35)
[2017-12-04] MEDS: LISINOPRIL 10 MG TABLET (FP) PO SCH (09:36)
[2017-12-04] MEDS: levETIRAcetam 250 MG TABLET (FP) PO SCH ×2 (09:36→23:30)
[2017-12-04] MEDS: metoPROLOL SUCCINATE 25 MG TAB.SR.24H (FP) PO SCH ×2 (09:36→21:40)
[2017-12-04] MEDS: ISOSORBIDE DINITRATE 10 MG TABLET (FP) PO SCH ×2 (09:36→17:48)
[2017-12-04] MEDS: NYSTATIN POWDER 100,000 UNITS/GM - 15 GM TOPICAL POWDER TP SCH (09:37)
[2017-12-04] MEDS: FLUOCINONIDE 0.05% CREAM (60 GM TUBE) TP SCH (09:39)
[2017-12-04] MEDS ORDERED: RIVAROXABAN 20 MG TABLET PO SCH (10:00)
--- NOTE | 2017-12-04 10:30 | PN ---
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, Physician Chief Complaint: left arm swelling and bruising History of Present Illness: 77 yo male PMH of AAA repair 2012, CVA, TAA, afib, DVT, CAD, CHF, COPD, CKD, BPH , PPM, with Btr hypertension, hyperlipidemia, knee replacement and cataract repair who presents to the ED by EMS with a seizure like activity prior to arrival. Improved pain in the left arm compared to initial assessment. arm elevated. - Current Medication List Current Medications: Active Medications Acetaminophen (Tylenol -) 650 mg PO Q6H PRN PRN Reason: FEVER Last Admin: 12/04/17 07:50 Dose: 650 mg Albuterol/Ipratropium (Duoneb -) 1 amp NEB RQID [facility] Last Admin: 12/04/17 08:01 Dose: 1 amp Atorvastatin Calcium (Lipitor -) 20 mg PO HS [facility] Last Admin: 12/03/17 21:40 Dose: 20 mg Chlorhexidine Gluconate (Hibiclens For Decolonization -) 1 applic TP HS [facility] Last Admin: 12/03/17 21:47 Dose: 1 applic Duloxetine HCl (Cymbalta -) 60 mg PO DAILY [facility] Last Admin: 12/04/17 09:34 Dose: 60 mg Fluocinonide (Lidex 0.05% Cream -) 1 applic TP DAILY [facility] Last Admin: 12/04/17 09:39 Dose: 1 applic Ceftriaxone Sodium 2 gm/ (Dextrose) 100 mls @ 200 mls/hr IVPB DAILY [facility]; Protocol Last Admin: 12/04/17 09:32 Dose: 200 mls/hr Isosorbide Dinitrate (Isordil -) 10 mg PO BIDISORDIL [facility] Last Admin: 12/04/17 09:36 Dose: 10 mg Levetiracetam (Keppra -) 250 mg PO BID [facility] Last Admin: 12/04/17 09:36 Dose: 250 mg Lisinopril (Prinivil) 10 mg PO DAILY [facility] Last Admin: 12/04/17 09:36 Dose: 10 mg Metoprolol Succinate (Toprol Xl -) 25 mg PO BID [facility] Last Admin: 12/04/17 09:36 Dose: 25 mg Morphine Sulfate (Morphine Sulfate) 4 mg IVPUSH Q6H PRN PRN Reason: PAIN LEVEL 7 - 10 Nystatin (Nystop Powder -) 1 applic TP DAILY [facility] Last Admin: 12/04/17 09:37 Dose: 1 applic Pantoprazole Sodium (Protonix -) 40 mg PO DAILY [facility] Last Admin: 12/04/17 09:35 Dose: 40 mg Prednisone (Deltasone -) 20 mg PO DAILY [facility] Last Admin: 12/04/17 09:35 Dose: 20 mg Pregabalin (Lyrica -) 100 mg PO TID [facility] Last Admin: 12/04/17 06:12 Dose: 100 mg Rivaroxaban (Xarelto -) 20 mg PO DAILY [facility] Last Admin: 12/04/17 09:35 Dose: 20 mg - Objective Vital Signs: Vital Signs Temperature 97.5 F L 12/04/17 10:23 Pulse Rate 60 12/04/17 08:07 Respiratory Rate 16 12/04/17 08:19 Blood Pressure 133/94 12/04/17 08:07 O2 Sat by Pulse Oximetry (%) 96 12/04/17 08:19 Vital Signs Period Temp Pulse Resp BP Sys/Varghese Pulse Ox Last 24 Hr 97.5 F-98.8 F 60-86 14-19 96-143/46-94 95-100 Intake & Output 12/03/17 12/04/17 12/04/17 23:59 07:59 15:59 Intake Total 200 1200 Balance 200 1200 Weight 154 lb 15.759 oz Intake: IV 200 1200 Normal Saline - 1,000 ml 200 @ 100 mls/hr IV ASDIR [facility] Rx#:[id number] Normal Saline - 1,000 ml 1200 @ 50 mls/hr IV ASDIR [facility] Rx#:[id number] Other: Voiding Method Urinal Urinal # Unmeasured Voids Void 2 1 Bowel Movement No No Weight Measurement Method Built in [facility] Constitutional: Yes: Well Nourished, No Distress, Calm Eyes: Yes: Conjunctiva Clear, EOM Intact HENT: Yes: Atraumatic, Normocephalic Neck: Yes: Supple, Trachea Midline Cardiovascular: Yes: Regular Rate and Rhythm, S1, S2 Respiratory: Yes: Regular, CTA Bilaterally Gastrointestinal: Yes: Normal Bowel Sounds, Soft. No: Tenderness ...Rectal Exam: Yes: Deferred Genitourinary: No: CVA Tenderness - Left, CVA Tenderness - Right Musculoskeletal: No: Muscle Pain, Muscle Weakness Extremities: No: Cool, Cyanosis Edema: Yes Edema: LUE: 1+ Peripheral Pulses WNL: Yes Peripheral Pulses: Left Radial: 2+, Right Radial: 2+, Left Doralis Pedis: 2+, Right Dorsalis Pedis: 2+, Left Femoral: 2+, Right Femoral: 2+ Integumentary: Yes: Bruising. No: Incision, Jaundice Neurological: Yes: Alert, Oriented Psychiatric: Yes: Alert, Oriented Labs: CBC, BMP 12/04/17 05:30 12/04/17 05:30 INR, PTT INR 1.04 (0.83-1.09) 11/27/17 05:30 Problem List - Problems (1) Traumatic hematoma of left upper arm Assessment/Plan: 77 yo RHD male MMP s/p L CTR [address] Charlie Gilman, no signs of acute compartment syndrome, hematomas have been demonstrated to be superficial. WBC > 20 -now-> 8.1 for 3 days , radial pulse exam 2+. He is more comfortable today. Edema is resolving in the left arm. appreciate vascular input. Elevation above heart level IV antibiotics per ID PT evaluation for Edema management and ROM Please re-call hand surgery as needed This patient is critically ill. Time spent reviewing chart, examining patient, talking with providers and/or family and documentation is 35 minutes. Code(s): S40.022A - CONTUSION OF LEFT UPPER ARM, INITIAL ENCOUNTER Qualifiers: Encounter type: initial encounter Qualified Code(s): S40.022A - Contusion of left upper arm, initial encounter (2) Fall Code(s): W19.XXXA - UNSPECIFIED FALL, INITIAL ENCOUNTER Qualifiers: Encounter type: subsequent encounter Qualified Code(s): W19.XXXD - Unspecified fall, subsequent encounter (3) CAD (coronary artery disease) Code(s): I25.10 - ATHSCL HEART DISEASE OF [place] CORONARY ARTERY W/O ANG PCTRS Qualifiers: Coronary Disease-Associated Artery/Lesion type: [place] artery Associated angina: with stable angina (4) COPD (chronic obstructive pulmonary disease) Code(s): J44.9 - CHRONIC OBSTRUCTIVE PULMONARY DISEASE, UNSPECIFIED Qualifiers: COPD type: COPD with acute exacerbation Qualified Code(s): J44.1 - Chronic obstructive pulmonary disease with (acute) exacerbation (5) History of aortic aneurysm repair Code(s): Z98.890 - OTHER SPECIFIED POSTPROCEDURAL STATES; Z86.79 - PERSONAL HISTORY OF OTHER DISEASES OF THE CIRCULATORY SYSTEM (6) History of arterial bypass of lower extremity Code(s): Z95.828 - PRESENCE OF OTHER VASCULAR IMPLANTS AND GRAFTS
--- NOTE | 2017-12-04 12:33 | PN ---
Teaching Attending Note Name of Resident: Erna Newman ATTENDING PHYSICIAN STATEMENT I saw and evaluated the patient. I reviewed the resident's note and discussed the case with the resident. I agree with the resident's findings and plan as documented. SUBJECTIVE: Pt seen and examined in the ICU. Was on nasal cannula but desaturated to 70s despite NRB, placed back on HFOT. Denies dyspnea but tachypneic without chest pain. OBJECTIVE: Vital Signs Period Temp Pulse Resp BP Sys/Varghese Pulse Ox Last 24 Hr 97.5 F-98.8 F 60-86 14-19 96-143/46-94 94-100 Intake & Output 12/01/17 12/02/17 12/03/17 12/04/17 23:59 23:59 23:59 23:59 Intake Total 880 1750 2150 1200 Output Total 1100 700 850 Balance -220 1050 1300 1200 Weight 69.5 kg 68.538 kg 70.6 kg 70.3 kg Gen: tachypniec at rest Heart: irregular Lung: distant breath sounds Abd: soft, nontender Ext: left arm hematoma CBC, BMP 12/04/17 05:30 12/04/17 05:30 Active Medications Acetaminophen (Tylenol -) 650 mg PO Q6H PRN PRN Reason: FEVER Last Admin: 12/04/17 07:50 Dose: 650 mg Albuterol/Ipratropium (Duoneb -) 1 amp NEB RQID [facility] Last Admin: 12/04/17 11:15 Dose: 1 amp Apixaban (Eliquis -) 2.5 mg PO BID [facility] Atorvastatin Calcium (Lipitor -) 20 mg PO HS [facility] Last Admin: 12/03/17 21:40 Dose: 20 mg Chlorhexidine Gluconate (Hibiclens For Decolonization -) 1 applic TP HS [facility] Last Admin: 12/03/17 21:47 Dose: 1 applic Duloxetine HCl (Cymbalta -) 60 mg PO DAILY [facility] Last Admin: 12/04/17 09:34 Dose: 60 mg Fluocinonide (Lidex 0.05% Cream -) 1 applic TP DAILY [facility] Last Admin: 12/04/17 09:39 Dose: 1 applic Ceftriaxone Sodium 2 gm/ (Dextrose) 100 mls @ 200 mls/hr IVPB DAILY [facility]; Protocol Last Admin: 12/04/17 09:32 Dose: 200 mls/hr Isosorbide Dinitrate (Isordil -) 10 mg PO BIDISORDIL [facility] Last Admin: 12/04/17 09:36 Dose: 10 mg Levetiracetam (Keppra -) 250 mg PO BID [facility] Last Admin: 12/04/17 09:36 Dose: 250 mg Lisinopril (Prinivil) 10 mg PO DAILY [facility] Last Admin: 12/04/17 09:36 Dose: 10 mg Metoprolol Succinate (Toprol Xl -) 25 mg PO BID [facility] Last Admin: 12/04/17 09:36 Dose: 25 mg Morphine Sulfate (Morphine Sulfate) 4 mg IVPUSH Q6H PRN PRN Reason: PAIN LEVEL 7 - 10 Nystatin (Nystop Powder -) 1 applic TP DAILY [facility] Last Admin: 12/04/17 09:37 Dose: 1 applic Pantoprazole Sodium (Protonix -) 40 mg PO DAILY [facility] Last Admin: 12/04/17 09:35 Dose: 40 mg Prednisone (Deltasone -) 20 mg PO DAILY [facility] Last Admin: 12/04/17 09:35 Dose: 20 mg Pregabalin (Lyrica -) 100 mg PO TID [facility] Last Admin: 12/04/17 06:12 Dose: 100 mg ASSESSMENT AND PLAN: Acute on Chronic Hypoxic Respiratory Failure Left Arm Hematoma Seizures Acute COPD Exacerbation LV Diastolic Dysfunction Atrial Fibrillation Acute on Chronic Renal Failure h/o CVA CAD HTN Hyperlipidemia - monitor hematoma - continue antibiotics - continue prednisone - inhaled bronchodilators - high flow O2 to keep Spo2 >90% - monitor urine output, creatinine - rate control - continue anticoagulation - continue ICU monitoring critical care time spent in reviewing chart, evaluating patient and formulating plan 35 min
--- NOTE | 2017-12-04 12:41 | PN ---
Physical Exam: SUBJECTIVE: Patient is a 77 y/o male with a history of afib, HTN, HLD, CAD, COPD, DM, PAD, AAA who is here for acute hypoxic respiratory failure 2/2 to COPD exacerbation. Patient desaturated this morning and had to be put back on high flow. Patient has no complaints and denies shortness of breath. OBJECTIVE: Vital Signs Temperature 97.5 F L 12/04/17 10:23 Pulse Rate 64 12/04/17 10:23 Respiratory Rate 16 12/04/17 10:23 Blood Pressure 100/58 12/04/17 10:23 O2 Sat by Pulse Oximetry (%) 94 L 12/04/17 11:14 GENERAL: Awake and alert EYES: Pupils equal, round and reactive to light, extraocular movements intact EARS, NOSE, THROAT: Ears normal, nares patent, oropharynx clear without exudates. Moist mucous membranes. LUNGS: lungs clear to auscultation, lower base expiratory wheezes, no accessory muscle use HEART: Regular rate and rhythm, ABDOMEN: Soft, nontender, not distended, LOWER EXTREMITIES: 2+ dp pulses, warm, well-perfused. No calf tenderness. No peripheral edema. SKIN: large hematoma on LUE from wrist and extending up midway of arm, radial pulse intact, ROM intact, hand support manager intact CBCD WBC 7.0 K/mm3 (4.0-10.0) 12/04/17 05:30 RBC 3.34 M/mm3 (4.00-5.60) L 12/04/17 05:30 Hgb 9.3 GM/dL (11.7-16.9) L 12/04/17 05:30 Hct 29.0 % (35.4-49) L 12/04/17 05:30 MCV 86.6 fl (80-96) 12/04/17 05:30 MCHC 32.3 g/dl (32.0-35.9) 12/04/17 05:30 RDW 18.8 % (11.9-15.9) H 12/04/17 05:30 Plt Count 101 K/MM3 (134-434) L 12/04/17 05:30 MPV 10.1 fl (7.5-11.1) 12/04/17 05:30 CMP Sodium 141 mmol/L (136-145) 12/04/17 05:30 Potassium 4.6 mmol/L (3.5-5.1) 12/04/17 05:30 Chloride 110 mmol/L (98-107) H 12/04/17 05:30 Carbon Dioxide 28 mmol/L (21-32) 12/04/17 05:30 Anion Gap 3 MMOL/L (8-16) L 12/04/17 05:30 BUN 28 mg/dL (7-18) H 12/04/17 05:30 Creatinine 0.9 mg/dL (0.7-1.3) 12/04/17 05:30 Creat Clearance w eGFR > 60 (>60) 12/04/17 05:30 Calcium 7.6 mg/dL (8.5-10.1) L 12/04/17 05:30 Total Bilirubin 0.5 mg/dL (0.2-1.0) 12/04/17 05:30 AST 15 U/L (15-37) 12/04/17 05:30 ALT 29 U/L (12-78) 12/04/17 05:30 Alkaline Phosphatase 43 U/L (45-117) L 12/04/17 05:30 Total Protein 4.5 g/dl (6.4-8.2) L 12/04/17 05:30 Albumin 2.1 g/dl (3.4-5.0) L 12/04/17 05:30 Active Medications Acetaminophen (Tylenol -) 650 mg PO Q6H PRN PRN Reason: FEVER Last Admin: 12/04/17 07:50 Dose: 650 mg Albuterol/Ipratropium (Duoneb -) 1 amp NEB RQID [facility] Last Admin: 12/04/17 11:15 Dose: 1 amp Apixaban (Eliquis -) 2.5 mg PO BID [facility] Atorvastatin Calcium (Lipitor -) 20 mg PO HS [facility] Last Admin: 12/03/17 21:40 Dose: 20 mg Chlorhexidine Gluconate (Hibiclens For Decolonization -) 1 applic TP HS [facility] Last Admin: 12/03/17 21:47 Dose: 1 applic Duloxetine HCl (Cymbalta -) 60 mg PO DAILY [facility] Last Admin: 12/04/17 09:34 Dose: 60 mg Fluocinonide (Lidex 0.05% Cream -) 1 applic TP DAILY [facility] Last Admin: 12/04/17 09:39 Dose: 1 applic Ceftriaxone Sodium 2 gm/ (Dextrose) 100 mls @ 200 mls/hr IVPB DAILY [facility]; Protocol Last Admin: 12/04/17 09:32 Dose: 200 mls/hr Isosorbide Dinitrate (Isordil -) 10 mg PO BIDISORDIL [facility] Last Admin: 12/04/17 09:36 Dose: 10 mg Levetiracetam (Keppra -) 250 mg PO BID [facility] Last Admin: 12/04/17 09:36 Dose: 250 mg Lisinopril (Prinivil) 10 mg PO DAILY [facility] Last Admin: 12/04/17 09:36 Dose: 10 mg Metoprolol Succinate (Toprol Xl -) 25 mg PO BID [facility] Last Admin: 12/04/17 09:36 Dose: 25 mg Morphine Sulfate (Morphine Sulfate) 4 mg IVPUSH Q6H PRN PRN Reason: PAIN LEVEL 7 - 10 Nystatin (Nystop Powder -) 1 applic TP DAILY [facility] Last Admin: 12/04/17 09:37 Dose: 1 applic Pantoprazole Sodium (Protonix -) 40 mg PO DAILY [facility] Last Admin: 12/04/17 09:35 Dose: 40 mg Prednisone (Deltasone -) 20 mg PO DAILY [facility] Last Admin: 12/04/17 09:35 Dose: 20 mg Pregabalin (Lyrica -) 100 mg PO TID [facility] Last Admin: 12/04/17 06:12 Dose: 100 mg ASSESSMENT/PLAN: Patient is a 77 y/o male with a history of afib, HTN, HLD, CAD, COPD, DM, PAD, AAA who is here for acute hypoxic respiratory failure 2/2 to COPD exacerbation. Neuro Seizure like actvity/ vs fall - Neurology Dr. Melo: may be partial seizure - Keppra 250 mg po BID - head CT: no acute intracranial hemorrhage or acute vascular territory infarction - EEG when possible - consulted Dr. Zamudio: Continue with Duloxatine 60mg po od, Ativan 1mg IM Q 8hrs PRN for aggressive behaviour Cardio Hypotension - Central line placed 12/02 - no pressors currently, suggest levophed if needed - can also give bolus NS before starting levoped afib - metoprolol 25 mg po BID - currently rate controlled and stable - Xarelto 20 mg given today, begin elliquis 2.[address] Gonzales CAD/HTN - aspirin 81 mg po daily - Isosorbide dinitrate 10 mg po - lipitor 20 mg po hs - privinil restarted at 10 mg daily, can uptitrate to home dose lisinopril once BP stable - echo inadequate study tropinemia - likely demand - f/u Dr. Flora Kendall acute on chronic hypoxic respiratory failure 2/2 to COPD exacerbation - CXR: no sign of acute process - patient on oxygen at home - keep oxygen saturation between 88-92 % - unlikely to be a PE, patients hypoxia likely chronic, Patient last CTA 10/18 showed history of emphysema - patient currently anticoagulated - patient changed to high flow oxygen, continue to titrate down COPD - Prednisone taper 20 mg today - duonebs QID - albuterol q4h - symbicort BID - patient on prednisone at home, determine dose and continue as to not cause adrenal insufficiency Renal - furosemide 20 mg po daily, held for labile blood pressure - monitor I's & O's - f/u Dr. Cassidy MSK Hematoma of LUE - UE doppler: no evidence or arterial dissection or aneyursm , superficial hematomas in LUE - history of AAA repair at [facility] - per vascular Dr. Hendricks and surgery Dr. Palumbo, no evidence of compartment syndrome - monitor hemoglobin dropping slightly - continue PT for ROM and to help edema - keep arm elevated above heart Infectious disease - bcx: Streptococcus Mitis - Ceftriaxone ( day 6) - treat for two weeks duration per Dr. Benz GI ppx - protonix 40 mg po daily BPH - tamsulosin .4 mg Endocrine DM - Lyrica 100 mg po TID - A1 C: 6.0 - TSH .12, Free T4:1 DVT ppx - SCD's depression - cymbalta 60 mg po daily FEN - diabetic/low sodium diet - repleted phosporus Dispo:monitor oxygenation Visit type - Emergency Visit Emergency Visit: No - New Patient This patient is new to me today: No - Critical Care Critical Care patient: Yes Total Critical Care Time (in minutes): 40 Critical Care Statement: The care of this patient involved high complexity decision making to prevent further life threatening deterioration of the patient 's condition and/or to evaluate & treat vital organ system(s) failure or risk of failure.
--- NOTE | 2017-12-04 13:28 | PN ---
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, Physician History of Present Illness: Pt seen and examined at bedside. He is out of bed to chair. - Current Medication List Current Medications: Active Medications Acetaminophen (Tylenol -) 650 mg PO Q6H PRN PRN Reason: FEVER Last Admin: 12/04/17 07:50 Dose: 650 mg Albuterol/Ipratropium (Duoneb -) 1 amp NEB RQID [facility] Last Admin: 12/04/17 11:15 Dose: 1 amp Apixaban (Eliquis -) 2.5 mg PO BID DIANNE Atorvastatin Calcium (Lipitor -) 20 mg PO HS [facility] Last Admin: 12/03/17 21:40 Dose: 20 mg Budesonide/Formoterol Fumarate (Symbicort 160/4.5mcg -) 2 puff IH BID DIANNE Chlorhexidine Gluconate (Hibiclens For Decolonization -) 1 applic TP HS [facility] Last Admin: 12/03/17 21:47 Dose: 1 applic Duloxetine HCl (Cymbalta -) 60 mg PO DAILY [facility] Last Admin: 12/04/17 09:34 Dose: 60 mg Fluocinonide (Lidex 0.05% Cream -) 1 applic TP DAILY [facility] Last Admin: 12/04/17 09:39 Dose: 1 applic Ceftriaxone Sodium 2 gm/ (Dextrose) 100 mls @ 200 mls/hr IVPB DAILY [facility]; Protocol Last Admin: 12/04/17 09:32 Dose: 200 mls/hr Isosorbide Dinitrate (Isordil -) 10 mg PO BIDISORDIL [facility] Last Admin: 12/04/17 09:36 Dose: 10 mg Levetiracetam (Keppra -) 250 mg PO BID [facility] Last Admin: 12/04/17 09:36 Dose: 250 mg Lisinopril (Prinivil) 10 mg PO DAILY [facility] Last Admin: 12/04/17 09:36 Dose: 10 mg Metoprolol Succinate (Toprol Xl -) 25 mg PO BID [facility] Last Admin: 12/04/17 09:36 Dose: 25 mg Morphine Sulfate (Morphine Sulfate) 4 mg IVPUSH Q6H PRN PRN Reason: PAIN LEVEL 7 - 10 Nystatin (Nystop Powder -) 1 applic TP DAILY [facility] Last Admin: 12/04/17 09:37 Dose: 1 applic Pantoprazole Sodium (Protonix -) 40 mg PO DAILY [facility] Last Admin: 12/04/17 09:35 Dose: 40 mg Prednisone (Deltasone -) 20 mg PO DAILY [facility] Last Admin: 12/04/17 09:35 Dose: 20 mg Pregabalin (Lyrica -) 100 mg PO TID [facility] Last Admin: 12/04/17 06:12 Dose: 100 mg - Objective Vital Signs: Vital Signs Temperature 97.5 F L 12/04/17 10:00 Pulse Rate 68 12/04/17 12:00 Respiratory Rate 16 12/04/17 12:00 Blood Pressure 126/74 12/04/17 12:00 O2 Sat by Pulse Oximetry (%) 94 L 12/04/17 11:14 Constitutional: Yes: Calm Eyes: Yes: Conjunctiva Clear HENT: Yes: Atraumatic Neck: Yes: Supple Cardiovascular: Yes: S1, S2 Respiratory: Yes: CTA Bilaterally Gastrointestinal: Yes: Soft Genitourinary: Yes: WNL Edema: Yes Edema: LUE: 1+ Neurological: Yes: Oriented Psychiatric: Yes: Oriented Labs: CBC, BMP 12/04/17 05:30 12/04/17 05:30 INR, PTT INR 1.04 (0.83-1.09) 11/27/17 05:30 Problem List - Problems (1) Fall Code(s): W19.XXXA - UNSPECIFIED FALL, INITIAL ENCOUNTER Qualifiers: Encounter type: subsequent encounter Qualified Code(s): W19.XXXD - Unspecified fall, subsequent encounter (2) CAD (coronary artery disease) Code(s): I25.10 - ATHSCL HEART DISEASE OF [place] CORONARY ARTERY W/O ANG PCTRS Qualifiers: Coronary Disease-Associated Artery/Lesion type: [place] artery Associated angina: with stable angina (3) CHF (congestive heart failure) Code(s): I50.9 - HEART FAILURE, UNSPECIFIED (4) CKD (chronic kidney disease) Code(s): N18.9 - CHRONIC KIDNEY DISEASE, UNSPECIFIED Qualifiers: Chronic kidney disease stage: stage 3 (moderate) Qualified Code(s): N18.3 - Chronic kidney disease, stage 3 (moderate) Assessment/Plan Current Medications Generic Name Dose Route Start Last Admin Trade Name Freq PRN Reason Stop Dose Admin Acetaminophen 650 mg 12/03/17 18:52 12/04/17 07:50 Tylenol - PO 650 mg Q6H PRN Administration FEVER Albuterol/Ipratropium 1 amp 12/03/17 20:00 12/04/17 11:15 Duoneb - NEB 1 amp RQID DIANNE Administration Apixaban 2.5 mg 12/05/17 10:00 Eliquis - PO BID DIANNE Atorvastatin Calcium 20 mg 12/03/17 22:00 12/03/17 21:40 Lipitor - PO 20 mg HS DIANNE Administration Budesonide/Formoterol Fumarate 2 puff 12/04/17 22:00 Symbicort 160/4.5mcg - IH BID DIANNE Chlorhexidine Gluconate 1 applic 12/03/17 22:00 12/03/17 21:47 Hibiclens For Decolonization - TP 1 applic HS DIANNE Administration Duloxetine HCl 60 mg 12/04/17 10:00 12/04/17 09:34 Cymbalta - PO 60 mg DAILY [facility] Administration Fluocinonide 1 applic 12/04/17 10:00 12/04/17 09:39 Lidex 0.05% Cream - TP 1 applic DAILY [facility] Administration Ceftriaxone Sodium 2 gm/ 100 mls @ 200 mls/hr 12/04/17 10:00 12/04/17 09:32 Dextrose IVPB 200 mls/hr DAILY [facility] Administration Protocol Isosorbide Dinitrate 10 mg 12/04/17 10:00 12/04/17 09:36 Isordil - PO 10 mg BIDISORDIL DIANNE Administration Levetiracetam 250 mg 12/03/17 22:00 12/04/17 09:36 Keppra - PO 250 mg BID DIANNE Administration Lisinopril 10 mg 12/04/17 10:00 12/04/17 09:36 Prinivil PO 10 mg DAILY [facility] Administration Metoprolol Succinate 25 mg 12/03/17 22:00 12/04/17 09:36 Toprol Xl - PO 25 mg BID DIANNE Administration Morphine Sulfate 4 mg 12/03/17 18:52 Morphine Sulfate IVPUSH Q6H PRN PAIN LEVEL 7 - 10 Nystatin 1 applic 12/04/17 10:00 12/04/17 09:37 Nystop Powder - TP 1 applic DAILY [facility] Administration Pantoprazole Sodium 40 mg 12/04/17 10:00 12/04/17 09:35 Protonix - PO 40 mg DAILY [facility] Administration Prednisone 20 mg 12/04/17 10:00 12/04/17 09:35 Deltasone - PO 20 mg DAILY [facility] Administration Pregabalin 100 mg 12/03/17 22:00 12/04/17 06:12 Lyrica - PO 100 mg TID DIANNE Administration Impression 1. CKD 2. COPD exacerbation 3. AAA 4. hx CVA 5. a-fib 6. HTN 7. insomnia 8. hypoxic resp failure 9. CAD 10. BPH 12. microscopic hematuria 13. hypoxia Plan - renal function is stable - cont low dose steve as tolerated - monitor bp, has been labile - cont oxygen - monitor lytes - avoid nsaids - will follow
--- NOTE | 2017-12-04 17:15 | PN ---
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, Physician Chief Complaint: Fall History of Present Illness: NAD decline in Pulmonary status, seen by pulmonary On IV abx, prednisone, bronchodilators, BIPAP - Current Medication List Current Medications: Active Medications Acetaminophen (Tylenol -) 650 mg PO Q6H PRN PRN Reason: FEVER Last Admin: 12/04/17 14:27 Dose: 650 mg Albuterol/Ipratropium (Duoneb -) 1 amp NEB RQID [facility] Last Admin: 12/04/17 16:24 Dose: 1 amp Apixaban (Eliquis -) 2.5 mg PO BID DI[facility] Atorvastatin Calcium (Lipitor -) 20 mg PO HS [facility] Last Admin: 12/03/17 21:40 Dose: 20 mg Budesonide/Formoterol Fumarate (Symbicort 160/4.5mcg -) 2 puff IH BID [facility] Chlorhexidine Gluconate (Hibiclens For Decolonization -) 1 applic TP HS [facility] Last Admin: 12/03/17 21:47 Dose: 1 applic Duloxetine HCl (Cymbalta -) 60 mg PO DAILY [facility] Last Admin: 12/04/17 09:34 Dose: 60 mg Fluocinonide (Lidex 0.05% Cream -) 1 applic TP DAILY [facility] Last Admin: 12/04/17 09:39 Dose: 1 applic Ceftriaxone Sodium 2 gm/ (Dextrose) 100 mls @ 200 mls/hr IVPB DAILY [facility]; Protocol Last Admin: 12/04/17 09:32 Dose: 200 mls/hr Isosorbide Dinitrate (Isordil -) 10 mg PO BIDISORDIL [facility] Last Admin: 12/04/17 09:36 Dose: 10 mg Levetiracetam (Keppra -) 250 mg PO BID [facility] Last Admin: 12/04/17 09:36 Dose: 250 mg Lisinopril (Prinivil) 10 mg PO DAILY [facility] Last Admin: 12/04/17 09:36 Dose: 10 mg Metoprolol Succinate (Toprol Xl -) 25 mg PO BID [facility] Last Admin: 12/04/17 09:36 Dose: 25 mg Morphine Sulfate (Morphine Sulfate) 4 mg IVPUSH Q6H PRN PRN Reason: PAIN LEVEL 7 - 10 Nystatin (Nystop Powder -) 1 applic TP DAILY [facility] Last Admin: 12/04/17 09:37 Dose: 1 applic Pantoprazole Sodium (Protonix -) 40 mg PO DAILY [facility] Last Admin: 12/04/17 09:35 Dose: 40 mg Prednisone (Deltasone -) 20 mg PO DAILY [facility] Last Admin: 12/04/17 09:35 Dose: 20 mg Pregabalin (Lyrica -) 100 mg PO TID [facility] Last Admin: 12/04/17 14:28 Dose: 100 mg - Objective Vital Signs: Vital Signs Temperature 98.5 F 12/04/17 14:00 Pulse Rate 89 12/04/17 14:00 Respiratory Rate 16 12/04/17 14:00 Blood Pressure 105/62 12/04/17 14:00 O2 Sat by Pulse Oximetry (%) 92 L 12/04/17 16:24 Constitutional: Yes: Well Nourished, No Distress, Calm Cardiovascular: Yes: Regular Rate and Rhythm Respiratory: Yes: Regular Gastrointestinal: Yes: Normal Bowel Sounds, Soft Musculoskeletal: Yes: Muscle Weakness Neurological: Yes: Alert, Pre-Existing Deficit Psychiatric: Yes: Alert Labs: CBC, BMP 12/04/17 05:30 12/04/17 05:30 INR, PTT INR 1.04 (0.83-1.09) 11/27/17 05:30 Problem List - Problems (1) Fall Assessment/Plan: -Physical therapy -CT head negative -Neurology consult -safety precautions Code(s): W19.XXXA - UNSPECIFIED FALL, INITIAL ENCOUNTER Qualifiers: Encounter type: subsequent encounter Qualified Code(s): W19.XXXD - Unspecified fall, subsequent encounter (2) Acute kidney injury Assessment/Plan: -UA/UC pending -Nephrology consult -monitor Cr Code(s): N17.9 - ACUTE KIDNEY FAILURE, UNSPECIFIED (3) CAD (coronary artery disease) Assessment/Plan: -Statin -BB -On Isosorbide -Cardiac cath in the past with EF >40% -has ICM with permanent Cardiac resynchronization therapy defibrillator (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) as 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 in the past Code(s): I25.10 - ATHSCL HEART DISEASE OF [place] CORONARY ARTERY W/O ANG PCTRS Qualifiers: Coronary Disease-Associated Artery/Lesion type: [place] artery Associated angina: with stable angina (4) COPD (chronic obstructive pulmonary disease) Assessment/Plan: -HFOT -CXR unremarkable -Pulmonary consult -Bronchodilators -Prednisone Code(s): J44.9 - CHRONIC OBSTRUCTIVE PULMONARY DISEASE, UNSPECIFIED Qualifiers: COPD type: COPD with acute exacerbation Qualified Code(s): J44.1 - Chronic obstructive pulmonary disease with (acute) exacerbation (5) Paroxysmal atrial fibrillation Assessment/Plan: -On eliquis -restart eliquis tomorrow if he is stable -Monitor H/H for any drop suggesting blood loss Code(s): I48.0 - PAROXYSMAL ATRIAL FIBRILLATION
[2017-12-04] MEDS: BUDESONIDE/FORMETEROL FUMARATE 160/4.5 mcg INHALER IH SCH (21:40)
[2017-12-04] MEDS: ATORVASTATIN CA 20 MG TABLET (FP) PO SCH (21:40)
[2017-12-04] MEDS: CHLORHEXIDINE GLUCONATE 4% CLEANSER FOR DECOLONIZATION TP SCH (22:00)
[2017-12-04] MEDS ORDERED: APIXABAN 2.5 MG TABLET PO SCH (22:00)
[2017-12-05] MEDS: PREGABALIN 100 MG CAPSULE PO SCH ×3 (05:48→21:07)
[2017-12-05 06:00] LABS: BASO % 0.6 % (0-2.0); EOS % 1.3 % (0-4.5); HEMATOCRIT 28.4 % (35.4-49); HEMOGLOBIN 9.2 GM/dL (11.7-16.9); LYMPH % 10.7 % (8-40); MCH 28.2 pg (25.7-33.7); MCHC 32.5 g/dl (32.0-35.9); MEAN PLT VOLUME 10.2 fl (7.5-11.1); NEUT % 80.4 % (42.8-82.8); PLATELET COUNT 108 K/MM3 (134-434); RBC 3.27 M/mm3 (4.00-5.60); RDW 19.9 % (11.9-15.9)
[2017-12-05 06:25] LABS: ANION GAP 4 MMOL/L (8-16); BLOOD UREA NITROGEN 26 mg/dL (7-18); CALCIUM 7.3 mg/dL (8.5-10.1); CHLORIDE 109 mmol/L (98-107); CO2 28 mmol/L (21-32); GLUCOSE,RANDOM 75 mg/dL (74-106); MAGNESIUM 2.2 mg/dL (1.8-2.4); POTASSIUM 4.3 mmol/L (3.5-5.1); SODIUM 141 mmol/L (136-145)
[2017-12-05 06:26] LABS: CREATININE 0.9 mg/dL (0.7-1.3); PHOSPHOROUS 2.7 mg/dL (2.5-4.9)
[2017-12-05] MEDS ORDERED: DEXTROSE 5%-WATER 100 ML IVPB ONE (07:40)
[2017-12-05] MEDS ORDERED: PT OWN MED DRAWER 7, Y5N ONE ×2 (07:40→10:35)
[2017-12-05] MEDS: ALBUTEROL SO4 2.5/IPRATROPIUM 0.5 INH SOL 3 ML VIAL.NEB. NEB SCH ×2 (08:16→11:32)
--- NOTE | 2017-12-05 09:25 | PN ---
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, Physician Chief Complaint: Seen and examined in ICU Denies any recurrent CP. TELE: Paced with some NSVT, self limited. Weight is up a bit. BP has stabilized. Platelets improved. Creatinine remains normal. - Current Medication List Current Medications: Active Medications Acetaminophen (Tylenol -) 650 mg PO Q6H PRN PRN Reason: FEVER Last Admin: 12/04/17 14:27 Dose: 650 mg Albuterol/Ipratropium (Duoneb -) 1 amp NEB RQID [facility] Last Admin: 12/05/17 08:16 Dose: 1 amp Apixaban (Eliquis -) 2.5 mg PO BID DIANNE Atorvastatin Calcium (Lipitor -) 20 mg PO HS [facility] Last Admin: 12/04/17 21:40 Dose: 20 mg Budesonide/Formoterol Fumarate (Symbicort 160/4.5mcg -) 2 puff IH BID [facility] Last Admin: 12/04/17 21:40 Dose: 2 inhaler Chlorhexidine Gluconate (Hibiclens For Decolonization -) 1 applic TP HS [facility] Last Admin: 12/04/17 22:00 Dose: 1 applic Duloxetine HCl (Cymbalta -) 60 mg PO DAILY [facility] Last Admin: 12/04/17 09:34 Dose: 60 mg Fluocinonide (Lidex 0.05% Cream -) 1 applic TP DAILY [facility] Last Admin: 12/04/17 09:39 Dose: 1 applic Ceftriaxone Sodium 2 gm/ (Dextrose) 100 mls @ 200 mls/hr IVPB DAILY [facility]; Protocol Last Admin: 12/04/17 09:32 Dose: 200 mls/hr Isosorbide Dinitrate (Isordil -) 10 mg PO BIDISORDIL [facility] Last Admin: 12/04/17 17:48 Dose: 10 mg Levetiracetam (Keppra -) 250 mg PO BID [facility] Last Admin: 12/04/17 23:30 Dose: 250 mg Lisinopril (Prinivil) 10 mg PO DAILY [facility] Last Admin: 12/04/17 09:36 Dose: 10 mg Metoprolol Succinate (Toprol Xl -) 25 mg PO BID [facility] Last Admin: 12/04/17 21:40 Dose: 25 mg Morphine Sulfate (Morphine Sulfate) 4 mg IVPUSH Q6H PRN PRN Reason: PAIN LEVEL 7 - 10 Last Admin: 12/04/17 17:43 Dose: 4 mg Nystatin (Nystop Powder -) 1 applic TP DAILY [facility] Last Admin: 12/04/17 09:37 Dose: 1 applic Pantoprazole Sodium (Protonix -) 40 mg PO DAILY [facility] Last Admin: 12/04/17 09:35 Dose: 40 mg Prednisone (Deltasone -) 20 mg PO DAILY [facility] Last Admin: 12/04/17 09:35 Dose: 20 mg Pregabalin (Lyrica -) 100 mg PO TID [facility] Last Admin: 12/05/17 05:48 Dose: 100 mg - Objective Vital Signs: Vital Signs Temperature 97.8 F 12/05/17 02:28 Pulse Rate 63 12/05/17 08:16 Respiratory Rate 11 L 12/05/17 05:51 Blood Pressure 122/63 12/05/17 05:51 O2 Sat by Pulse Oximetry (%) 98 12/05/17 08:16 Constitutional: Yes: Calm Eyes: Yes: Conjunctiva Clear Cardiovascular: Yes: Regular Rate and Rhythm Respiratory: Yes: Other (decreased breath sounds. No active wheezing.) Gastrointestinal: Yes: Soft Edema: Yes Edema: LUE: 2+ (resolving hematoma), LLE: 1+, RLE: 1+ Neurological: Yes: Alert, Oriented ...Motor Strength: WNL Labs: CBC, BMP 12/05/17 05:30 12/05/17 05:30 INR, PTT INR 1.04 (0.83-1.09) 11/27/17 05:30 Microbiology 11/26/17 19:00 Nasopharyngeal Swab Respiratory Syncytial Virus Ag - Final 11/26/17 16:40 Blood - Peripheral Venous Blood Culture - Final NO GROWTH AFTER 5 DAYS INCUBATION 11/26/17 14:20 Blood - Peripheral Venous Blood Culture - Final NO GROWTH AFTER 5 DAYS INCUBATION Laboratory Tests 11/30/17 12/05/17 12/05/17 05:30 05:30 05:30 WBC 6.0 Hgb 9.2 L Plt Count 108 L Sodium 141 BUN 26 H Creatinine 0.9 Magnesium 2.2 Heparin-Ind Plt Ab Scrn Pending - ....Imaging Chest X-ray: Report Reviewed, Image Reviewed EKG: Image Reviewed Assessment/Plan IMP: ASHD with chronic angina- deemed not a candidate for cath due to extensive and diffuse aortic calcifications- elevated risk for stroke Anginal episodes during period of hypotension- decreased coronary perfusion: Now Resolved. Hypotension secondary to volume depletion: resolved. 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 Gram + bacteremia: 1 bottle Pancreatic mass REC: 1. AC resumed. Platelets improved. LUE hematoma improved. H/H stable.Pancreatic mass to be d/w patient/family. Cont. Eliquis adjusted for renal fxn. 2. Oral Steroids being tapered. 3. Abx as per ID , serial cultures have been negative. WBC is down. Afebrile. Duration of abx as per ID. Patient would be at elevated risk for GOPI due to his hypoxia and respiratory status. 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 He is not a surgical candidate. Plan d/w and patient who agree. 4. Cont Toprol BID for NSVT: keep K+>4 and Mg2+>2. Patient refused ICD, opted for COMPUTER ENGINEERING TECHNICIAN-P. Try to minimize use of albuterol as this may contribute to tachycardia and V-ectopy. 5. Hypotension resolved with IVF and d/c of diuretics. Amlodipine discontinued. Renal fx remains stable. 6. Mild elevation TnI with normal CK: probably due to relative hypotension causing underperfusion of coronaries in background of underlying CAD. No further angina for 48 hours with normalization of BP.
[2017-12-05] MEDS: CEFTRIAXONE 2 GM in DEXTROSE 5%-WATER 100 ML IVPB SCH (10:19)
[2017-12-05] MEDS: DULoxetine HCL 30 MG CAPSULE.DR (FP) PO SCH (10:20)
[2017-12-05] MEDS: metoPROLOL SUCCINATE 25 MG TAB.SR.24H (FP) PO SCH ×2 (10:20→21:07)
[2017-12-05] MEDS: predniSONE 10 MG TABLET (UD) PO SCH (10:21)
[2017-12-05] MEDS: LISINOPRIL 10 MG TABLET (FP) PO SCH (10:21)
[2017-12-05] MEDS: PANTOPRAZOLE 40 MG TABLET (FP) PO SCH (10:21)
[2017-12-05] MEDS: BUDESONIDE/FORMETEROL FUMARATE 160/4.5 mcg INHALER IH SCH ×2 (10:26→21:07)
[2017-12-05] MEDS: FLUOCINONIDE 0.05% CREAM (60 GM TUBE) TP SCH (10:27)
[2017-12-05] MEDS: NYSTATIN POWDER 100,000 UNITS/GM - 15 GM TOPICAL POWDER TP SCH (10:27)
--- NOTE | 2017-12-05 10:38 | PN ---
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, Physician Chief Complaint: PATIENT ANXIOUS ON AIRVO STILL DESATURATING TO 80% BEDSIDE AND SHE DOES NOT WANT HIM TO BE INTUBATED - Current Medication List Current Medications: Active Medications Acetaminophen (Tylenol -) 650 mg PO Q6H PRN PRN Reason: FEVER Last Admin: 12/04/17 14:27 Dose: 650 mg Albuterol/Ipratropium (Duoneb -) 1 amp NEB RQID [facility] Last Admin: 12/05/17 08:16 Dose: 1 amp Apixaban (Eliquis -) 2.5 mg PO BID [facility] Atorvastatin Calcium (Lipitor -) 20 mg PO HS [facility] Last Admin: 12/04/17 21:40 Dose: 20 mg Budesonide/Formoterol Fumarate (Symbicort 160/4.5mcg -) 2 puff IH BID [facility] Last Admin: 12/05/17 10:26 Dose: 1 inhaler Chlorhexidine Gluconate (Hibiclens For Decolonization -) 1 applic TP HS [facility] Last Admin: 12/04/17 22:00 Dose: 1 applic Duloxetine HCl (Cymbalta -) 60 mg PO DAILY [facility] Last Admin: 12/05/17 10:20 Dose: 60 mg Fluocinonide (Lidex 0.05% Cream -) 1 applic TP DAILY [facility] Last Admin: 12/05/17 10:27 Dose: 1 applic Ceftriaxone Sodium 2 gm/ (Dextrose) 100 mls @ 200 mls/hr IVPB DAILY [facility]; Protocol Last Admin: 12/05/17 10:19 Dose: 200 mls/hr Isosorbide Dinitrate (Isordil -) 10 mg PO BIDISORDIL [facility] Last Admin: 12/04/17 17:48 Dose: 10 mg Levetiracetam (Keppra -) 250 mg PO BID [facility] Last Admin: 12/04/17 23:30 Dose: 250 mg Lisinopril (Prinivil) 10 mg PO DAILY [facility] Last Admin: 12/05/17 10:21 Dose: 10 mg Metoprolol Succinate (Toprol Xl -) 25 mg PO BID [facility] Last Admin: 12/05/17 10:20 Dose: 25 mg Morphine Sulfate (Morphine Sulfate) 4 mg IVPUSH Q6H PRN PRN Reason: PAIN LEVEL 7 - 10 Last Admin: 12/04/17 17:43 Dose: 4 mg Nystatin (Nystop Powder -) 1 applic TP DAILY [facility] Last Admin: 12/05/17 10:27 Dose: 1 applic Pantoprazole Sodium (Protonix -) 40 mg PO DAILY [facility] Last Admin: 12/05/17 10:21 Dose: 40 mg Prednisone (Deltasone -) 20 mg PO DAILY [facility] Last Admin: 12/05/17 10:21 Dose: 20 mg Pregabalin (Lyrica -) 100 mg PO TID [facility] Last Admin: 12/05/17 05:48 Dose: 100 mg - Objective Vital Signs: Vital Signs Temperature 98.1 F 12/05/17 10:00 Pulse Rate 64 12/05/17 10:00 Respiratory Rate 11 L 12/05/17 10:00 Blood Pressure 103/85 12/05/17 10:00 O2 Sat by Pulse Oximetry (%) 98 12/05/17 08:16 Constitutional: Yes: Severe Distress Eyes: Yes: Other HENT: Yes: WNL Neck: Yes: WNL Cardiovascular: Yes: Tachycardia Respiratory: Yes: Accessory Muscle Use, Tachypnea, Other (AIRVO) Gastrointestinal: Yes: WNL Genitourinary: Yes: Incontinence Musculoskeletal: Yes: Muscle Weakness Extremities: Yes: Other Edema: Yes Edema: LLE: Trace, RLE: Trace Peripheral Pulses WNL: Yes Integumentary: Yes: Other Wound/Incision: Yes: Other Neurological: Yes: Confusion, Pre-Existing Deficit, Other (ANXIOUS) Psychiatric: Yes: Agitated Labs: CBC, BMP 12/05/17 05:30 12/05/17 05:30 INR, PTT INR 1.04 (0.83-1.09) 11/27/17 05:30 Problem List - Problems (1) Bacteremia Code(s): R78.81 - BACTEREMIA (2) Cardiomyopathy Code(s): I42.9 - CARDIOMYOPATHY, UNSPECIFIED Qualifiers: Cardiomyopathy type: ischemic Qualified Code(s): I25.5 - Ischemic cardiomyopathy (3) Chronic respiratory failure with hypoxia Code(s): J96.11 - CHRONIC RESPIRATORY FAILURE WITH HYPOXIA (4) History of aortic aneurysm repair Code(s): Z98.890 - OTHER SPECIFIED POSTPROCEDURAL STATES; Z86.79 - PERSONAL HISTORY OF OTHER DISEASES OF THE CIRCULATORY SYSTEM (5) History of arterial bypass of lower extremity Code(s): Z95.828 - PRESENCE OF OTHER VASCULAR IMPLANTS AND GRAFTS (6) SOB (shortness of breath) Code(s): R06.02 - SHORTNESS OF BREATH (7) Tachycardia Code(s): R00.0 - TACHYCARDIA, UNSPECIFIED (8) CAD (coronary artery disease) Code(s): I25.10 - ATHSCL HEART DISEASE OF [place] CORONARY ARTERY W/O ANG PCTRS Qualifiers: Coronary Disease-Associated Artery/Lesion type: [place] artery (9) History of permanent cardiac pacemaker placement Code(s): Z95.0 - PRESENCE OF CARDIAC PACEMAKER Assessment/Plan D/W PATIENT'S REFUSING INTUBATION FOR RESPIRATORY SUPPORT CHANGING FROM AIRVO TO BIPAP STAT SOLUMEDROL IV USE HALDOL 5MG IM X 1 FOR AGITATION AND COMPLIANCE WITH BIPAP MASK DOES NOT WANT HER RESTRAINED WITH WRIST RESTRAINTS SHE REPORTS SHE WILL SIT NEXT TO HIM GRAVE OVERALL CONDITION PALLIATIVE CARE RECOMMENDED REFUSING ICD
[2017-12-05] MEDS: levETIRAcetam 250 MG TABLET (FP) PO SCH ×2 (10:39→21:08)
[2017-12-05] MEDS: ISOSORBIDE DINITRATE 10 MG TABLET (FP) PO SCH ×2 (10:39→17:52)
[2017-12-05] MEDS ORDERED: methylPREDNISolone NA SUCC 40 MG/1 ML VIAL IVPUSH ONE (10:57)
[2017-12-05] MEDS ORDERED: HALOPERIDOL LACTATE 5 MG/ML IM ONE (11:00)
[2017-12-05] MEDS: APIXABAN 2.5 MG TABLET PO SCH ×2 (11:10→21:07)
[2017-12-05] MEDS ORDERED: SODIUM CHLORIDE 250 ML IV STA (12:11)
[2017-12-05] MEDS ORDERED: ALBUTEROL SO4 0.083% IH SOL 2.5 MG/3 ML VIAL.NEB. NEB PRN (12:37)
--- NOTE | 2017-12-05 12:50 | PN ---
Physical Exam: SUBJECTIVE: Patient is a 77 y/o male with a history of afib, HTN, HLD, CAD, COPD, DM, PAD, AAA who is here for acute hypoxic respiratory failure 2/2 to COPD exacerbation. Patient oxygenation has continue to desaturate on and off, he has been placed on high flow. He will continue to be monitored. OBJECTIVE: Vital Signs Temperature 98.1 F 12/05/17 10:00 Pulse Rate 68 12/05/17 12:00 Respiratory Rate 12 12/05/17 12:00 Blood Pressure 108/72 12/05/17 12:00 O2 Sat by Pulse Oximetry (%) 94 L 12/05/17 13:42 GENERAL: Awake and alert EYES: Pupils equal, round and reactive to light, extraocular movements intact EARS, NOSE, THROAT: Ears normal, nares patent, oropharynx clear without exudates. Moist mucous membranes. LUNGS: lungs clear to auscultation, lower base expiratory wheezes, no accessory muscle use HEART: Regular rate and rhythm, ABDOMEN: Soft, nontender, not distended, LOWER EXTREMITIES: 2+ dp pulses, warm, well-perfused. No calf tenderness. No peripheral edema. 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 CBCD WBC 6.0 K/mm3 (4.0-10.0) 12/05/17 05:30 RBC 3.27 M/mm3 (4.00-5.60) L 12/05/17 05:30 Hgb 9.2 GM/dL (11.7-16.9) L 12/05/17 05:30 Hct 28.4 % (35.4-49) L 12/05/17 05:30 MCV 87.0 fl (80-96) 12/05/17 05:30 MCHC 32.5 g/dl (32.0-35.9) 12/05/17 05:30 RDW 19.9 % (11.9-15.9) H 12/05/17 05:30 Plt Count 108 K/MM3 (134-434) L 12/05/17 05:30 MPV 10.2 fl (7.5-11.1) 12/05/17 05:30 CMP Sodium 141 mmol/L (136-145) 12/05/17 05:30 Potassium 4.3 mmol/L (3.5-5.1) 12/05/17 05:30 Chloride 109 mmol/L (98-107) H 12/05/17 05:30 Carbon Dioxide 28 mmol/L (21-32) 12/05/17 05:30 Anion Gap 4 MMOL/L (8-16) L 12/05/17 05:30 BUN 26 mg/dL (7-18) H 12/05/17 05:30 Creatinine 0.9 mg/dL (0.7-1.3) 12/05/17 05:30 Creat Clearance w eGFR > 60 (>60) 12/05/17 05:30 Calcium 7.3 mg/dL (8.5-10.1) L 12/05/17 05:30 Total Bilirubin 0.5 mg/dL (0.2-1.0) 12/04/17 05:30 AST 15 U/L (15-37) 12/04/17 05:30 ALT 29 U/L (12-78) 12/04/17 05:30 Alkaline Phosphatase 43 U/L (45-117) L 12/04/17 05:30 Total Protein 4.5 g/dl (6.4-8.2) L 12/04/17 05:30 Albumin 2.1 g/dl (3.4-5.0) L 12/04/17 05:30 Active Medications Acetaminophen (Tylenol -) 650 mg PO Q6H PRN PRN Reason: FEVER Last Admin: 12/04/17 14:27 Dose: 650 mg Albuterol Sulfate (Ventolin 0.083% Nebulizer Soln -) 1 amp NEB Q6H PRN PRN Reason: SHORT OF BREATH/WHEEZING Apixaban (Eliquis -) 2.5 mg PO BID [facility] Last Admin: 12/05/17 11:10 Dose: 2.5 mg Atorvastatin Calcium (Lipitor -) 20 mg PO [facility] Last Admin: 12/04/17 21:40 Dose: 20 mg Budesonide/Formoterol Fumarate (Symbicort 160/4.5mcg -) 2 puff IH BID [facility] Last Admin: 12/05/17 10:26 Dose: 1 inhaler Chlorhexidine Gluconate (Hibiclens For Decolonization -) 1 applic TP [facility] Last Admin: 12/04/17 22:00 Dose: 1 applic Duloxetine HCl (Cymbalta -) 60 mg PO DAILY [facility] Last Admin: 12/05/17 10:20 Dose: 60 mg Fluocinonide (Lidex 0.05% Cream -) 1 applic TP DAILY [facility] Last Admin: 12/05/17 10:27 Dose: 1 applic Ceftriaxone Sodium 2 gm/ (Dextrose) 100 mls @ 200 mls/hr IVPB DAILY [facility]; Protocol Last Admin: 12/05/17 10:19 Dose: 200 mls/hr Sodium Chloride (Normal Saline -) 250 mls @ 250 mls/hr IV ASDIR STA Stop: 12/05/17 13:10 Isosorbide Dinitrate (Isordil -) 10 mg PO BIDISORDIL [facility] Last Admin: 12/05/17 10:39 Dose: 10 mg Levetiracetam (Keppra -) 250 mg PO BID [facility] Last Admin: 12/05/17 10:39 Dose: 250 mg Lisinopril (Prinivil) 10 mg PO DAILY [facility] Last Admin: 12/05/17 10:21 Dose: 10 mg Methylprednisolone Sodium Succinate (Solu-Medrol -) 40 mg IVPUSH Q8H-IV [facility] Metoprolol Succinate (Toprol Xl -) 25 mg PO BID [facility] Last Admin: 12/05/17 10:20 Dose: 25 mg Morphine Sulfate (Morphine Sulfate) 4 mg IVPUSH Q6H PRN PRN Reason: PAIN LEVEL 7 - 10 Last Admin: 12/04/17 17:43 Dose: 4 mg Nystatin (Nystop Powder -) 1 applic TP DAILY [facility] Last Admin: 12/05/17 10:27 Dose: 1 applic Pantoprazole Sodium (Protonix -) 40 mg PO DAILY [facility] Last Admin: 12/05/17 10:21 Dose: 40 mg Pregabalin (Lyrica -) 100 mg PO TID [facility] Last Admin: 12/05/17 05:48 Dose: 100 mg Roflumilast (Daliresp -) 500 mcg PO DAILY [facility] Tiotropium [place] (Spiriva Respimat) 2 puff IH DAILY [facility] ASSESSMENT/PLAN: Patient is a 77 y/o male with a history of afib, HTN, HLD, CAD, COPD, DM, PAD, AAA who is here for acute hypoxic respiratory failure 2/2 to COPD exacerbation. Neuro Seizure like actvity/ vs fall - Neurology Dr. Melo: may be partial seizure - Keppra 250 mg po BID - head CT: no acute intracranial hemorrhage or acute vascular territory infarction - EEG when possible - consulted Dr. Zamudio: Continue with Duloxatine 60mg po od, Ativan 1mg IM Q 8hrs PRN for aggressive behaviour Cardio Hypotension - Central line placed 12/02 - no pressors currently, suggest levophed if needed - can also give bolus NS before starting levoped afib - metoprolol 25 mg po BID - currently rate controlled and stable - Xarelto 20 mg given today, begin elliquis 2.[address] Gonzales CAD/HTN - aspirin 81 mg po daily - Isosorbide dinitrate 10 mg po - lipitor 20 mg po hs - privinil restarted at 10 mg daily, can uptitrate to home dose lisinopril once BP stable - echo inadequate study tropinemia - likely demand - f/u Dr. Flora Kendall acute on chronic hypoxic respiratory failure 2/2 to COPD exacerbation - CXR: no sign of acute process - patient on oxygen at home - keep oxygen saturation between 88-92 % - unlikely to be a PE, patients hypoxia likely chronic, Patient last CTA 10/18 showed history of emphysema - patient currently anticoagulated - patient changed to high flow oxygen, continue to titrate down COPD - Methylprednisolone 40 mg IV push q8h - albuterol q4h - symbicort BID - Rofluminast 500 po daily - Spiriva 2 puff daily - patient on prednisone at home Renal - furosemide 20 mg po daily, held for labile blood pressure - monitor I's & O's - f/u Dr. Ange DÍAZ Hematoma of LUE - UE doppler: no evidence or arterial dissection or aneyursm , superficial hematomas in LUE - history of AAA repair at [facility] - per vascular Dr. Hendricks and surgery Dr. Palumbo, no evidence of compartment syndrome - monitor hemoglobin dropping slightly - continue PT for ROM and to help edema - keep arm elevated above heart Infectious disease - bcx: Streptococcus Mitis - Ceftriaxone ( day 7) - treat for two weeks duration per Dr. Benz GI ppx - protonix 40 mg po daily BPH - tamsulosin .4 mg Endocrine DM - Lyrica 100 mg po TID - A1 C: 6.0 - TSH .12, Free T4:1 DVT ppx - SCD's depression - cymbalta 60 mg po daily FEN - diabetic/low sodium diet - repleted phosporus Dispo: Patient does not currently have have capacity. He is aware to name, but does not know location or date. Goals of care discussed with patients and she stated patients wishes in the past were for no extraordinary measures to be taken place. In the past patient has stated he does not want to be intubated or resuscitated. Paperwork signed and patient is now DNR/DNI. Palliative Care ordered Visit type - Emergency Visit Emergency Visit: No - New Patient This patient is new to me today: No - Critical Care Critical Care patient: Yes Total Critical Care Time (in minutes): 35 Critical Care Statement: The care of this patient involved high complexity decision making to prevent further life threatening deterioration of the patient 's condition and/or to evaluate & treat vital organ system(s) failure or risk of failure.
--- NOTE | 2017-12-05 13:00 | PN ---
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, Physician History of Present Illness: Pt seen and examined at bedside. He is awake and alert. He had an episode of tachycardia, hypoxia and hypotension this morning that resolved. He is now awake and alert. - Current Medication List Current Medications: Active Medications Acetaminophen (Tylenol -) 650 mg PO Q6H PRN PRN Reason: FEVER Last Admin: 12/04/17 14:27 Dose: 650 mg Albuterol Sulfate (Ventolin 0.083% Nebulizer Soln -) 1 amp NEB Q6H PRN PRN Reason: SHORT OF BREATH/WHEEZING Apixaban (Eliquis -) 2.5 mg PO BID [facility] Last Admin: 12/05/17 11:10 Dose: 2.5 mg Atorvastatin Calcium (Lipitor -) 20 mg PO HS [facility] Last Admin: 12/04/17 21:40 Dose: 20 mg Budesonide/Formoterol Fumarate (Symbicort 160/4.5mcg -) 2 puff IH BID [facility] Last Admin: 12/05/17 10:26 Dose: 1 inhaler Chlorhexidine Gluconate (Hibiclens For Decolonization -) 1 applic TP HS [facility] Last Admin: 12/04/17 22:00 Dose: 1 applic Duloxetine HCl (Cymbalta -) 60 mg PO DAILY [facility] Last Admin: 12/05/17 10:20 Dose: 60 mg Fluocinonide (Lidex 0.05% Cream -) 1 applic TP DAILY [facility] Last Admin: 12/05/17 10:27 Dose: 1 applic Ceftriaxone Sodium 2 gm/ (Dextrose) 100 mls @ 200 mls/hr IVPB DAILY [facility]; Protocol Last Admin: 12/05/17 10:19 Dose: 200 mls/hr Sodium Chloride (Normal Saline -) 250 mls @ 250 mls/hr IV ASDIR STA Stop: 12/05/17 13:10 Isosorbide Dinitrate (Isordil -) 10 mg PO BIDISORDIL [facility] Last Admin: 12/05/17 10:39 Dose: 10 mg Levetiracetam (Keppra -) 250 mg PO BID [facility] Last Admin: 12/05/17 10:39 Dose: 250 mg Lisinopril (Prinivil) 10 mg PO DAILY [facility] Last Admin: 12/05/17 10:21 Dose: 10 mg Methylprednisolone Sodium Succinate (Solu-Medrol -) 40 mg IVPUSH Q8H-IV [facility] Metoprolol Succinate (Toprol Xl -) 25 mg PO BID [facility] Last Admin: 12/05/17 10:20 Dose: 25 mg Morphine Sulfate (Morphine Sulfate) 4 mg IVPUSH Q6H PRN PRN Reason: PAIN LEVEL 7 - 10 Last Admin: 12/04/17 17:43 Dose: 4 mg Nystatin (Nystop Powder -) 1 applic TP DAILY [facility] Last Admin: 12/05/17 10:27 Dose: 1 applic Pantoprazole Sodium (Protonix -) 40 mg PO DAILY [facility] Last Admin: 12/05/17 10:21 Dose: 40 mg Pregabalin (Lyrica -) 100 mg PO TID [facility] Last Admin: 12/05/17 05:48 Dose: 100 mg Roflumilast (Daliresp -) 500 mcg PO DAILY [facility] Tiotropium [place] (Spiriva Respimat) 2 puff IH DAILY [facility] - Objective Vital Signs: Vital Signs Temperature 98.1 F 12/05/17 10:00 Pulse Rate 68 12/05/17 12:00 Respiratory Rate 12 12/05/17 12:00 Blood Pressure 108/72 12/05/17 12:00 O2 Sat by Pulse Oximetry (%) 91 L 12/05/17 11:31 Constitutional: Yes: Calm Eyes: Yes: Conjunctiva Clear Cardiovascular: Yes: S1, S2 Respiratory: Yes: On Nasal O2, Wheezes Gastrointestinal: Yes: Soft Genitourinary: Yes: WNL Musculoskeletal: Yes: WNL Edema: No Integumentary: Yes: Bruising Neurological: Yes: Oriented Psychiatric: Yes: Oriented Labs: CBC, BMP 12/05/17 05:30 12/05/17 05:30 INR, PTT INR 1.04 (0.83-1.09) 11/27/17 05:30 - ....Imaging Chest X-ray: Report Reviewed Problem List - Problems (1) Fall Code(s): W19.XXXA - UNSPECIFIED FALL, INITIAL ENCOUNTER Qualifiers: Encounter type: subsequent encounter Qualified Code(s): W19.XXXD - Unspecified fall, subsequent encounter (2) CAD (coronary artery disease) Code(s): I25.10 - ATHSCL HEART DISEASE OF [place] CORONARY ARTERY W/O ANG PCTRS Qualifiers: Coronary Disease-Associated Artery/Lesion type: [place] artery Associated angina: with stable angina (3) CHF (congestive heart failure) Code(s): I50.9 - HEART FAILURE, UNSPECIFIED (4) CKD (chronic kidney disease) Code(s): N18.9 - CHRONIC KIDNEY DISEASE, UNSPECIFIED Qualifiers: Chronic kidney disease stage: stage 3 (moderate) Qualified Code(s): N18.3 - Chronic kidney disease, stage 3 (moderate) Assessment/Plan Current Medications Generic Name Dose Route Start Last Admin Trade Name Freq PRN Reason Stop Dose Admin Acetaminophen 650 mg 12/03/17 18:52 12/04/17 14:27 Tylenol - PO 650 mg Q6H PRN Administration FEVER Albuterol Sulfate 1 amp 12/05/17 12:37 Ventolin 0.083% Nebulizer Soln - NEB Q6H PRN SHORT OF BREATH/WHEEZING Apixaban 2.5 mg 12/05/17 10:00 12/05/17 11:10 Eliquis - PO 2.5 mg BID [facility] Administration Atorvastatin Calcium 20 mg 12/03/17 22:00 12/04/17 21:40 Lipitor - PO 20 mg HS [facility] Administration Budesonide/Formoterol Fumarate 2 puff 12/04/17 22:00 12/05/17 10:26 Symbicort 160/4.5mcg - IH 1 inhaler BID [facility] Administration Chlorhexidine Gluconate 1 applic 12/03/17 22:00 12/04/17 22:00 Hibiclens For Decolonization - TP 1 applic HS [facility] Administration Duloxetine HCl 60 mg 12/04/17 10:00 12/05/17 10:20 Cymbalta - PO 60 mg DAILY [facility] Administration Fluocinonide 1 applic 12/04/17 10:00 12/05/17 10:27 Lidex 0.05% Cream - TP 1 applic DAILY [facility] Administration Ceftriaxone Sodium 2 gm/ 100 mls @ 200 mls/hr 12/04/17 10:00 12/05/17 10:19 Dextrose IVPB 200 mls/hr DAILY [facility] Administration Protocol Sodium Chloride 250 mls @ 250 mls/hr 12/05/17 12:11 Normal Saline - IV 12/05/17 13:10 ASDIR STA Isosorbide Dinitrate 10 mg 12/04/17 10:00 12/05/17 10:39 Isordil - PO 10 mg BIDISORDIL [facility] Administration Levetiracetam 250 mg 12/03/17 22:00 12/05/17 10:39 Keppra - PO 250 mg BID [facility] Administration Lisinopril 10 mg 12/04/17 10:00 12/05/17 10:21 Prinivil PO 10 mg DAILY [facility] Administration Methylprednisolone Sodium Succinate 40 mg 12/05/17 18:00 Solu-Medrol - IVPUSH Q8H-IV [facility] Metoprolol Succinate 25 mg 12/03/17 22:00 12/05/17 10:20 Toprol Xl - PO 25 mg BID [facility] Administration Morphine Sulfate 4 mg 12/03/17 18:52 12/04/17 17:43 Morphine Sulfate IVPUSH 4 mg Q6H PRN Administration PAIN LEVEL 7 - 10 Nystatin 1 applic 12/04/17 10:00 12/05/17 10:27 Nystop Powder - TP 1 applic DAILY [facility] Administration Pantoprazole Sodium 40 mg 12/04/17 10:00 12/05/17 10:21 Protonix - PO 40 mg DAILY [facility] Administration Pregabalin 100 mg 12/03/17 22:00 12/05/17 05:48 Lyrica - PO 100 mg TID [facility] Administration Roflumilast 500 mcg 12/05/17 12:45 Daliresp - PO DAILY [facility] Tiotropium [place] 2 puff 12/05/17 12:45 Spiriva Respimat IH DAILY [facility] Impression 1. CKD 2. COPD exacerbation 3. AAA 4. hx CVA 5. a-fib 6. HTN 7. insomnia 8. hypoxic resp failure 9. CAD 10. BPH 12. microscopic hematuria 13. hypoxia Plan - monitor bp closely - hold bp meds if his bp drops - pt is getting a trial of steroids - pulm follow up - daily cxr - monitor in ICU - cont oxygen - monitor lytes - avoid nsaids - will follow
[2017-12-05] MEDS: TIOTROPIUM BROMIDE 2.5 MCG (SPIRIVA) RESPIMAT INHALER IH SCH (13:35)
[2017-12-05] MEDS: ROFLUMILAST 500 MCG TABLET PO SCH (14:07)
--- NOTE | 2017-12-05 15:24 | PN ---
Teaching Attending Note Name of Resident: Erna Newman ATTENDING PHYSICIAN STATEMENT I saw and evaluated the patient. I reviewed the resident's note and discussed the case with the resident. I agree with the resident's findings and plan as documented. SUBJECTIVE: Patient seen and examined in the ICU. Respiratory distress that required him to be placed on HF NC O2. No CP. Made DNI/DNR by his . OBJECTIVE: Intake & Output 12/02/17 12/03/17 12/04/17 12/05/17 23:59 23:59 23:59 23:59 Intake Total 1750 2150 1500 200 Output Total 700 850 600 100 Balance 1050 1300 900 100 Weight 151 lb 1.6 oz 155 lb 10.342 oz 154 lb 15.759 oz 156 lb 9 oz Last Vital Signs Temp Pulse Resp BP Pulse Ox 98.3 F 81 12 134/85 94 L 12/05/17 14:00 12/05/17 14:00 12/05/17 14:00 12/05/17 14:00 12/05/17 13:42 Active Medications Acetaminophen (Tylenol -) 650 mg PO Q6H PRN PRN Reason: FEVER Last Admin: 12/04/17 14:27 Dose: 650 mg Albuterol Sulfate (Ventolin 0.083% Nebulizer Soln -) 1 amp NEB Q6H PRN PRN Reason: SHORT OF BREATH/WHEEZING Apixaban (Eliquis -) 2.5 mg PO BID [facility] Last Admin: 12/05/17 11:10 Dose: 2.5 mg Atorvastatin Calcium (Lipitor -) 20 mg PO HS [facility] Last Admin: 12/04/17 21:40 Dose: 20 mg Budesonide/Formoterol Fumarate (Symbicort 160/4.5mcg -) 2 puff IH BID [facility] Last Admin: 12/05/17 10:26 Dose: 1 inhaler Chlorhexidine Gluconate (Hibiclens For Decolonization -) 1 applic TP HS [facility] Last Admin: 12/04/17 22:00 Dose: 1 applic Duloxetine HCl (Cymbalta -) 60 mg PO DAILY [facility] Last Admin: 12/05/17 10:20 Dose: 60 mg Fluocinonide (Lidex 0.05% Cream -) 1 applic TP DAILY [facility] Last Admin: 12/05/17 10:27 Dose: 1 applic Ceftriaxone Sodium 2 gm/ (Dextrose) 100 mls @ 200 mls/hr IVPB DAILY [facility]; Protocol Last Admin: 12/05/17 10:19 Dose: 200 mls/hr Isosorbide Dinitrate (Isordil -) 10 mg PO BIDISORDIL [facility] Last Admin: 12/05/17 10:39 Dose: 10 mg Levetiracetam (Keppra -) 250 mg PO BID [facility] Last Admin: 12/05/17 10:39 Dose: 250 mg Lisinopril (Prinivil) 10 mg PO DAILY [facility] Last Admin: 12/05/17 10:21 Dose: 10 mg Methylprednisolone Sodium Succinate (Solu-Medrol -) 40 mg IVPUSH Q8H-IV [facility] Metoprolol Succinate (Toprol Xl -) 25 mg PO BID [facility] Last Admin: 12/05/17 10:20 Dose: 25 mg Morphine Sulfate (Morphine Sulfate) 4 mg IVPUSH Q6H PRN PRN Reason: PAIN LEVEL 7 - 10 Last Admin: 12/04/17 17:43 Dose: 4 mg Nystatin (Nystop Powder -) 1 applic TP DAILY [facility] Last Admin: 12/05/17 10:27 Dose: 1 applic Pantoprazole Sodium (Protonix -) 40 mg PO DAILY [facility] Last Admin: 12/05/17 10:21 Dose: 40 mg Pregabalin (Lyrica -) 100 mg PO TID [facility] Last Admin: 12/05/17 14:07 Dose: 100 mg Roflumilast (Daliresp -) 500 mcg PO DAILY [facility] Last Admin: 12/05/17 14:07 Dose: 500 mcg Tiotropium [place] (Spiriva Respimat) 2 puff IH DAILY [facility] Gen: [email or web address] at rest Heart: irregular Lung: distant breath sounds Abd: soft, nontender Ext: left arm hematoma Laboratory Results - last 24 hr 12/05/17 12/05/17 05:30 05:30 WBC 6.0 RBC 3.27 L Hgb 9.2 L Hct 28.4 L MCV 87.0 MCH 28.2 MCHC 32.5 RDW 19.9 H Plt Count 108 L MPV 10.2 Absolute Neuts (auto) 4.8 Neutrophils % 80.4 Lymphocytes % 10.7 D Monocytes % 7.0 Eosinophils % 1.3 Basophils % 0.6 D Nucleated RBC % 0 Sodium 141 Potassium 4.3 Chloride 109 H Carbon Dioxide 28 Anion Gap 4 L BUN 26 H Creatinine 0.9 Creat Clearance w eGFR > 60 Random Glucose 75 Calcium 7.3 L Phosphorus 2.7 Magnesium 2.2 ASSESSMENT AND PLAN: Acute on Chronic Hypoxic Respiratory Failure Left Arm Hematoma Seizures Acute COPD Exacerbation LV Diastolic Dysfunction Atrial Fibrillation Acute on Chronic Renal Failure h/o CVA CAD HTN Hyperlipidemia - HF NC O2 - monitor hematoma - continue antibiotics - Start Solumderol - inhaled bronchodilators - monitor urine output, creatinine - rate control - continue anticoagulation - continue ICU monitoring due to tenuous respiratory condition - Made DNR/DNI Dr Alberto Critical care time spent in reviewing chart, evaluating patient and formulating plan 35 min
[2017-12-05] MEDS: methylPREDNISolone NA SUCC 40 MG/1 ML VIAL IVPUSH SCH (17:53)
--- NOTE | 2017-12-05 18:15 | PN ---
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, Physician Chief Complaint: left arm swelling and bruising History of Present Illness: 77 yo male PMH of AAA repair 2012, CVA, TAA, afib, DVT, CAD, CHF, COPD, CKD, BPH , PPM, with Btr hypertension, hyperlipidemia, knee replacement and cataract repair who presents to the ED by EMS with a seizure like activity prior to arrival. Improved pain in the left arm compared to initial assessment. arm elevated. - Current Medication List Current Medications: Active Medications Acetaminophen (Tylenol -) 650 mg PO Q6H PRN PRN Reason: FEVER Last Admin: 12/04/17 14:27 Dose: 650 mg Albuterol Sulfate (Ventolin 0.083% Nebulizer Soln -) 1 amp NEB Q6H PRN PRN Reason: SHORT OF BREATH/WHEEZING Apixaban (Eliquis -) 2.5 mg PO BID [facility] Last Admin: 12/05/17 11:10 Dose: 2.5 mg Atorvastatin Calcium (Lipitor -) 20 mg PO HS [facility] Last Admin: 12/04/17 21:40 Dose: 20 mg Budesonide/Formoterol Fumarate (Symbicort 160/4.5mcg -) 2 puff IH BID [facility] Last Admin: 12/05/17 10:26 Dose: 1 inhaler Chlorhexidine Gluconate (Hibiclens For Decolonization -) 1 applic TP HS [facility] Last Admin: 12/04/17 22:00 Dose: 1 applic Duloxetine HCl (Cymbalta -) 60 mg PO DAILY [facility] Last Admin: 12/05/17 10:20 Dose: 60 mg Fluocinonide (Lidex 0.05% Cream -) 1 applic TP DAILY [facility] Last Admin: 12/05/17 10:27 Dose: 1 applic Ceftriaxone Sodium 2 gm/ (Dextrose) 100 mls @ 200 mls/hr IVPB DAILY [facility]; Protocol Last Admin: 12/05/17 10:19 Dose: 200 mls/hr Isosorbide Dinitrate (Isordil -) 10 mg PO BIDISORDIL [facility] Last Admin: 12/05/17 17:52 Dose: 10 mg Levetiracetam (Keppra -) 250 mg PO BID [facility] Last Admin: 12/05/17 10:39 Dose: 250 mg Lisinopril (Prinivil) 10 mg PO DAILY [facility] Last Admin: 09/13/18 10:21 Dose: 10 mg Methylprednisolone Sodium Succinate (Solu-Medrol -) 40 mg IVPUSH Q8H-IV [facility] Last Admin: 12/05/17 17:53 Dose: 40 mg Metoprolol Succinate (Toprol Xl -) 25 mg PO BID [facility] Last Admin: 12/05/17 10:20 Dose: 25 mg Morphine Sulfate (Morphine Sulfate) 4 mg IVPUSH Q6H PRN PRN Reason: PAIN LEVEL 7 - 10 Last Admin: 12/04/17 17:43 Dose: 4 mg Nystatin (Nystop Powder -) 1 applic TP DAILY [facility] Last Admin: 12/05/17 10:27 Dose: 1 applic Pantoprazole Sodium (Protonix -) 40 mg PO DAILY [facility] Last Admin: 12/05/17 10:21 Dose: 40 mg Pregabalin (Lyrica -) 100 mg PO TID [facility] Last Admin: 12/05/17 14:07 Dose: 100 mg Roflumilast (Daliresp -) 500 mcg PO DAILY [facility] Last Admin: 12/05/17 14:07 Dose: 500 mcg Tiotropium [place] (Spiriva Respimat) 2 puff IH DAILY [facility] - Objective Vital Signs: Vital Signs Temperature 98.3 F 12/05/17 14:00 Pulse Rate 77 12/05/17 16:00 Respiratory Rate 12 12/05/17 16:00 Blood Pressure 123/44 12/05/17 16:00 O2 Sat by Pulse Oximetry (%) 94 L 12/05/17 15:58 Vital Signs Period Temp Pulse Resp BP Sys/[place] Pulse Ox Last 24 Hr 97.6 F-98.3 F 56-84 - 104-134/44-91 91-100 Intake & Output 12/05/17 12/06/17 12/06/17 23:59 07:59 15:59 Intake Total 300 200 Output Total 400 300 Balance -100 -100 Weight 161 lb 9 oz Intake: Oral 300 200 Output: Urine 400 300 Void 400 300 Other: Voiding Method Urinal Bowel Movement No Weight Measurement [facility] Constitutional: Yes: Well Nourished, No Distress, Calm Eyes: Yes: Conjunctiva Clear, EOM Intact HENT: Yes: Atraumatic, Normocephalic Neck: Yes: Supple, Trachea Midline Cardiovascular: Yes: Regular Rate and Rhythm, S1, S2 Respiratory: Yes: Regular, CTA Bilaterally Gastrointestinal: Yes: Normal Bowel Sounds, Soft. No: Tenderness ...Rectal Exam: Yes: Deferred. No: Other Genitourinary: No: CVA Tenderness - Right Musculoskeletal: No: Muscle Pain, Muscle Weakness Extremities: No: Cool Edema: Yes Edema: LUE: 1+ Peripheral Pulses WNL: Yes Peripheral Pulses: Left Radial: 2+, Right Radial: 2+, Left Doralis Pedis: 2+, Right Dorsalis Pedis: 2+, Left Femoral: 2+, Right Femoral: 2+ Integumentary: Yes: Bruising. No: Erythema, Incision, Jaundice Neurological: Yes: Alert, Oriented Psychiatric: Yes: Alert, Oriented Labs: CBC, BMP 12/05/17 05:30 12/05/17 05:30 INR, PTT INR 1.04 (0.83-1.09) 11/27/17 05:30 Problem List - Problems (1) Traumatic hematoma of left upper arm Assessment/Plan: 77 yo RHD male MMP s/p L CTR [address] Charlie Gilman, no signs of acute compartment syndrome, hematomas have been demonstrated to be superficial. WBC > 20 -now-> 8.1 for 3 days , radial pulse exam 2+. He is more comfortable today. Edema is resolving in the left arm. appreciate vascular input. Elevation above heart level IV antibiotics per ID PT evaluation for Edema management and ROM Please re-call hand surgery as needed This patient is critically ill. Time spent reviewing chart, examining patient, talking with providers and/or family and documentation is 35 minutes. Code(s): S40.022A - CONTUSION OF LEFT UPPER ARM, INITIAL ENCOUNTER Qualifiers: Encounter type: initial encounter Qualified Code(s): S40.022A - Contusion of left upper arm, initial encounter (2) Fall Code(s): W19.XXXA - UNSPECIFIED FALL, INITIAL ENCOUNTER Qualifiers: Encounter type: subsequent encounter Qualified Code(s): W19.XXXD - Unspecified fall, subsequent encounter (3) CAD (coronary artery disease) Code(s): I25.10 - ATHSCL HEART DISEASE OF [place] CORONARY ARTERY W/O ANG PCTRS Qualifiers: Coronary Disease-Associated Artery/Lesion type: [place] artery Associated angina: with stable angina (4) COPD (chronic obstructive pulmonary disease) Code(s): J44.9 - CHRONIC OBSTRUCTIVE PULMONARY DISEASE, UNSPECIFIED Qualifiers: COPD type: COPD with acute exacerbation Qualified Code(s): J44.1 - Chronic obstructive pulmonary disease with (acute) exacerbation (5) History of aortic aneurysm repair Code(s): Z98.890 - OTHER SPECIFIED POSTPROCEDURAL STATES; Z86.79 - PERSONAL HISTORY OF OTHER DISEASES OF THE CIRCULATORY SYSTEM (6) History of arterial bypass of lower extremity Code(s): Z95.828 - PRESENCE OF OTHER VASCULAR IMPLANTS AND GRAFTS
[2017-12-05] MEDS: ATORVASTATIN CA 20 MG TABLET (FP) PO SCH (21:07)
[2017-12-05] MEDS: CHLORHEXIDINE GLUCONATE 4% CLEANSER FOR DECOLONIZATION TP SCH (21:07)
[2017-12-06] MEDS: methylPREDNISolone NA SUCC 40 MG/1 ML VIAL IVPUSH SCH ×3 (02:25→18:31)
[2017-12-06 05:54] LABS: HEMATOCRIT 27.7 % (35.4-49); HEMOGLOBIN 9.2 GM/dL (11.7-16.9); MCH 28.6 pg (25.7-33.7); MCHC 33.3 g/dl (32.0-35.9); MEAN CELL VOLUME 85.9 fl (80-96); MEAN PLT VOLUME 10.4 fl (7.5-11.1); PLATELET COUNT 130 K/MM3 (134-434); RBC 3.22 M/mm3 (4.00-5.60); RDW 19.3 % (11.9-15.9); WHITE BLOOD COUNT 6.3 K/mm3 (4.0-10.0)
[2017-12-06] MEDS: PREGABALIN 100 MG CAPSULE PO SCH ×3 (06:04→21:26)
[2017-12-06 06:09] LABS: ALBUMIN 2.2 g/dl (3.4-5.0); ALK PHOS 45 U/L (45-117); ANION GAP 5 MMOL/L (8-16); BILIRUBIN,TOTAL 0.6 mg/dL (0.2-1.0); BLOOD UREA NITROGEN 26 mg/dL (7-18); CALCIUM 7.5 mg/dL (8.5-10.1); CHLORIDE 108 mmol/L (98-107); CO2 26 mmol/L (21-32); CREATININE 0.8 mg/dL (0.55-1.3); GLUCOSE,RANDOM 100 mg/dL (74-106); MAGNESIUM 2.2 mg/dL (1.8-2.4); PHOSPHOROUS 3.4 mg/dL (2.5-4.9); POTASSIUM 4.5 mmol/L (3.5-5.1); SGOT/AST 20 U/L (15-37); SGPT/ALT 31 U/L (13-61); SODIUM 139 mmol/L (136-145); TOT PROT 4.7 g/dl (6.4-8.2)
--- NOTE | 2017-12-06 08:08 | PN ---
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, Physician Chief Complaint: PATIENT AWAKE FEELING MUCH BETTER ON 02 NC - Current Medication List Current Medications: Active Medications Acetaminophen (Tylenol -) 650 mg PO Q6H PRN PRN Reason: FEVER Last Admin: 12/04/17 14:27 Dose: 650 mg Albuterol Sulfate (Ventolin 0.083% Nebulizer Soln -) 1 amp NEB Q6H PRN PRN Reason: SHORT OF BREATH/WHEEZING Apixaban (Eliquis -) 2.5 mg PO BID [facility] Last Admin: 12/05/17 21:07 Dose: 2.5 mg Atorvastatin Calcium (Lipitor -) 20 mg PO HS [facility] Last Admin: 12/05/17 21:07 Dose: 20 mg Budesonide/Formoterol Fumarate (Symbicort 160/4.5mcg -) 2 puff IH BID [facility] Last Admin: 12/05/17 21:07 Dose: 2 inhaler Chlorhexidine Gluconate (Hibiclens For Decolonization -) 1 applic TP HS [facility] Last Admin: 12/05/17 21:07 Dose: 1 applic Duloxetine HCl (Cymbalta -) 60 mg PO DAILY [facility] Last Admin: 12/05/17 10:20 Dose: 60 mg Fluocinonide (Lidex 0.05% Cream -) 1 applic TP DAILY [facility] Last Admin: 12/05/17 10:27 Dose: 1 applic Ceftriaxone Sodium 2 gm/ (Dextrose) 100 mls @ 200 mls/hr IVPB DAILY [facility]; Protocol Last Admin: 12/05/17 10:19 Dose: 200 mls/hr Isosorbide Dinitrate (Isordil -) 10 mg PO BIDISORDIL [facility] Last Admin: 12/05/17 17:52 Dose: 10 mg Levetiracetam (Keppra -) 250 mg PO BID [facility] Last Admin: 12/05/17 21:08 Dose: 250 mg Lisinopril (Prinivil) 10 mg PO DAILY [facility] Last Admin: 12/05/17 10:21 Dose: 10 mg Methylprednisolone Sodium Succinate (Solu-Medrol -) 40 mg IVPUSH Q8H-IV [facility] Last Admin: 12/06/17 02:25 Dose: 40 mg Metoprolol Succinate (Toprol Xl -) 25 mg PO BID [facility] Last Admin: 12/05/17 21:07 Dose: 25 mg Morphine Sulfate (Morphine Sulfate) 4 mg IVPUSH Q6H PRN PRN Reason: PAIN LEVEL 7 - 10 Last Admin: 12/04/17 17:43 Dose: 4 mg Nystatin (Nystop Powder -) 1 applic TP DAILY [facility] Last Admin: 12/05/17 10:27 Dose: 1 applic Pantoprazole Sodium (Protonix -) 40 mg PO DAILY [facility] Last Admin: 12/05/17 10:21 Dose: 40 mg Pregabalin (Lyrica -) 100 mg PO TID [facility] Last Admin: 12/06/17 06:04 Dose: 100 mg Roflumilast (Daliresp -) 500 mcg PO DAILY [facility] Last Admin: 12/05/17 14:07 Dose: 500 mcg Tiotropium [place] (Spiriva Respimat) 2 puff IH DAILY [facility] - Objective Vital Signs: Vital Signs Temperature 97.9 F 12/06/17 06:00 Pulse Rate 60 12/06/17 06:00 Respiratory Rate 18 12/06/17 06:00 Blood Pressure 119/74 12/06/17 06:00 O2 Sat by Pulse Oximetry (%) 100 12/06/17 05:02 Constitutional: Yes: Mild Distress Eyes: Yes: WNL HENT: Yes: WNL Neck: Yes: WNL Cardiovascular: Yes: Pulse Irregular Respiratory: Yes: Diminished, On Nasal O2 Gastrointestinal: Yes: WNL Genitourinary: Yes: Incontinence Musculoskeletal: Yes: Muscle Weakness Extremities: Yes: Other Edema: Yes Integumentary: Yes: Other Wound/Incision: Yes: Dressing Dry and Intact Neurological: Yes: Pre-Existing Deficit ...Motor Strength: LLE, RLE Psychiatric: Yes: Agitated, Other Labs: CBC, BMP 12/06/17 05:30 12/06/17 05:30 INR, PTT INR 1.04 (0.83-1.09) 11/27/17 05:30 Problem List - Problems (1) Bacteremia Code(s): R78.81 - BACTEREMIA (2) Cardiomyopathy Code(s): I42.9 - CARDIOMYOPATHY, UNSPECIFIED Qualifiers: Cardiomyopathy type: ischemic Qualified Code(s): I25.5 - Ischemic cardiomyopathy (3) Chronic respiratory failure with hypoxia Code(s): J96.11 - CHRONIC RESPIRATORY FAILURE WITH HYPOXIA (4) History of aortic aneurysm repair Code(s): Z98.890 - OTHER SPECIFIED POSTPROCEDURAL STATES; Z86.79 - PERSONAL HISTORY OF OTHER DISEASES OF THE CIRCULATORY SYSTEM (5) History of arterial bypass of lower extremity Code(s): Z95.828 - PRESENCE OF OTHER VASCULAR IMPLANTS AND GRAFTS (6) SOB (shortness of breath) Code(s): R06.02 - SHORTNESS OF BREATH (7) Tachycardia Code(s): R00.0 - TACHYCARDIA, UNSPECIFIED (8) CAD (coronary artery disease) Code(s): I25.10 - ATHSCL HEART DISEASE OF [place] CORONARY ARTERY W/O ANG PCTRS Qualifiers: Coronary Disease-Associated Artery/Lesion type: [place] artery (9) History of permanent cardiac pacemaker placement Code(s): Z95.0 - PRESENCE OF CARDIAC PACEMAKER Assessment/Plan DOING BETTER TODAY IV STEROIDS 02 AIRVO SUPPORT NEBS ICU MONITORING ADDING SEROQUEL 12.5MG HS AND PRN AFTER IN THE AM NEEDED AC OOB TO CHAIR WITH ASSIST
--- NOTE | 2017-12-06 08:42 | PN ---
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, Physician Chief Complaint: Back on high flow O2 TELE: Paced, likely underlying AF, NSVT self limited. Back on IV Steroids. History of Present Illness: Denies chest pain. - Current Medication List Current Medications: Active Medications Acetaminophen (Tylenol -) 650 mg PO Q6H PRN PRN Reason: FEVER Last Admin: 12/04/17 14:27 Dose: 650 mg Albuterol Sulfate (Ventolin 0.083% Nebulizer Soln -) 1 amp NEB Q6H PRN PRN Reason: SHORT OF BREATH/WHEEZING Apixaban (Eliquis -) 2.5 mg PO BID [facility] Last Admin: 12/05/17 21:07 Dose: 2.5 mg Atorvastatin Calcium (Lipitor -) 20 mg PO HS [facility] Last Admin: 12/05/17 21:07 Dose: 20 mg Budesonide/Formoterol Fumarate (Symbicort 160/4.5mcg -) 2 puff IH BID [facility] Last Admin: 12/05/17 21:07 Dose: 2 inhaler Chlorhexidine Gluconate (Hibiclens For Decolonization -) 1 applic TP HS [facility] Last Admin: 12/05/17 21:07 Dose: 1 applic Duloxetine HCl (Cymbalta -) 60 mg PO DAILY [facility] Last Admin: 12/05/17 10:20 Dose: 60 mg Fluocinonide (Lidex 0.05% Cream -) 1 applic TP DAILY [facility] Last Admin: 12/05/17 10:27 Dose: 1 applic Ceftriaxone Sodium 2 gm/ (Dextrose) 100 mls @ 200 mls/hr IVPB DAILY [facility]; Protocol Last Admin: 12/05/17 10:19 Dose: 200 mls/hr Isosorbide Dinitrate (Isordil -) 10 mg PO BIDISORDIL [facility] Last Admin: 12/05/17 17:52 Dose: 10 mg Levetiracetam (Keppra -) 250 mg PO BID [facility] Last Admin: 12/05/17 21:08 Dose: 250 mg Lisinopril (Prinivil) 10 mg PO DAILY [facility] Last Admin: 12/05/17 10:21 Dose: 10 mg Methylprednisolone Sodium Succinate (Solu-Medrol -) 40 mg IVPUSH Q8H-IV [facility] Last Admin: 12/06/17 02:25 Dose: 40 mg Metoprolol Succinate (Toprol Xl -) 25 mg PO BID [facility] Last Admin: 12/05/17 21:07 Dose: 25 mg Morphine Sulfate (Morphine Sulfate) 4 mg IVPUSH Q6H PRN PRN Reason: PAIN LEVEL 7 - 10 Last Admin: 12/04/17 17:43 Dose: 4 mg Nystatin (Nystop Powder -) 1 applic TP DAILY [facility] Last Admin: 12/05/17 10:27 Dose: 1 applic Pantoprazole Sodium (Protonix -) 40 mg PO DAILY [facility] Last Admin: 12/05/17 10:21 Dose: 40 mg Pregabalin (Lyrica -) 100 mg PO TID [facility] Last Admin: 12/06/17 06:04 Dose: 100 mg Roflumilast (Daliresp -) 500 mcg PO DAILY [facility] Last Admin: 12/05/17 14:07 Dose: 500 mcg Tiotropium [place] (Spiriva Respimat) 2 puff IH DAILY [facility] - Objective Vital Signs: Vital Signs Temperature 97.9 F 12/06/17 06:00 Pulse Rate 60 12/06/17 06:00 Respiratory Rate 18 12/06/17 06:00 Blood Pressure 119/74 12/06/17 06:00 O2 Sat by Pulse Oximetry (%) 100 12/06/17 05:02 Constitutional: Yes: Calm Cardiovascular: Yes: Regular Rate and Rhythm Respiratory: Yes: Other (decreased breath sounds bilaterally. No active wheezing ) Gastrointestinal: Yes: Soft Edema: No (venodynes. ) Neurological: Yes: Alert Labs: CBC, BMP 12/06/17 05:30 12/06/17 05:30 INR, PTT INR 1.04 (0.83-1.09) 11/27/17 05:30 Microbiology 11/26/17 16:40 Blood - Peripheral Venous Blood Culture - Final NO GROWTH AFTER 5 DAYS INCUBATION 11/26/17 14:20 Blood - Peripheral Venous Blood Culture - Final NO GROWTH AFTER 5 DAYS INCUBATION Laboratory Tests 11/27/17 11/28/17 11/30/17 05:30 05:30 05:30 WBC Hgb Hct Plt Count PT with INR 11.70 INR 1.04 PTT (Actin FS) 28.2 Sodium Potassium BUN Creatinine AST ALT Alkaline Phosphatase Heparin-Ind Plt Ab Scrn 0.342 12/06/17 12/06/17 05:30 05:30 WBC 6.3 Hgb 9.2 L Hct 27.7 L Plt Count 130 L D PT with INR INR PTT (Actin FS) Sodium 139 Potassium 4.5 BUN 26 H Creatinine 0.8 AST 20 ALT 31 Alkaline Phosphatase 45 Heparin-Ind Plt Ab Scrn - ....Imaging EKG: Image Reviewed Assessment/Plan IMP: ASHD with chronic angina- deemed not a candidate for cath due to extensive and diffuse aortic calcifications- elevated risk for stroke Anginal episodes during period of hypotension- decreased coronary perfusion: Now Resolved. Hypotension secondary to volume depletion: resolved. NSVT- chronic HTN PAD ICM s/p EDI COORDINATOR-P (refused ICD) Multiple aneurysms AF Traumatic hematoma, upper extremity after fall due to seizure Thrombocytopenia- improved COPD, chronic. Gram + bacteremia: 1 bottle Pancreatic mass REC: 1. AC resumed. Platelets improved. LUE hematoma improved. H/H stable.Pancreatic mass to be d/w patient/family. Cont. Eliquis adjusted for renal fxn. 2. Now back on IV steroids. 3. Abx as per ID , serial cultures have been negative. WBC is down. Afebrile. Duration of abx as per ID. Patient would be at elevated risk for GOPI due to his hypoxia and respiratory status. Furthermore, unclear that GOPI would guide changer significantly. He is not a surgical candidate. Plan d/w and patient who agree. 4. Cont Toprol BID for NSVT: keep K+>4 and Mg2+>2. Patient refused ICD, opted for EDI COORDINATOR-P. Try to minimize use of albuterol as this may contribute to tachycardia and V-ectopy. 5. Hypotension resolved with IVF and d/c of diuretics. Amlodipine discontinued. Renal fx remains stable. 6. Mild elevation TnI with normal CK: probably due to relative hypotension causing underperfusion of coronaries in background of underlying CAD. No further angina for 72 hours with normalization of BP.
[2017-12-06] MEDS ORDERED: DEXTROSE 5%-WATER 100 ML IVPB ONE (08:55)
[2017-12-06] MEDS: PANTOPRAZOLE 40 MG TABLET (FP) PO SCH (09:36)
[2017-12-06] MEDS: CEFTRIAXONE 2 GM in DEXTROSE 5%-WATER 100 ML IVPB SCH (09:36)
[2017-12-06] MEDS: DULoxetine HCL 30 MG CAPSULE.DR (FP) PO SCH (09:36)
[2017-12-06] MEDS: APIXABAN 2.5 MG TABLET PO SCH ×2 (09:37→21:26)
[2017-12-06] MEDS: LISINOPRIL 10 MG TABLET (FP) PO SCH (09:37)
[2017-12-06] MEDS: metoPROLOL SUCCINATE 25 MG TAB.SR.24H (FP) PO SCH ×2 (09:37→21:27)
[2017-12-06] MEDS: levETIRAcetam 250 MG TABLET (FP) PO SCH ×2 (09:38→21:26)
[2017-12-06] MEDS: ISOSORBIDE DINITRATE 10 MG TABLET (FP) PO SCH ×2 (09:38→17:43)
[2017-12-06] MEDS: ROFLUMILAST 500 MCG TABLET PO SCH (09:38)
[2017-12-06] MEDS: NYSTATIN POWDER 100,000 UNITS/GM - 15 GM TOPICAL POWDER TP SCH (09:39)
[2017-12-06] MEDS: FLUOCINONIDE 0.05% CREAM (60 GM TUBE) TP SCH (09:39)
[2017-12-06] MEDS: BUDESONIDE/FORMETEROL FUMARATE 160/4.5 mcg INHALER IH SCH ×2 (11:31→21:28)
[2017-12-06] MEDS: TIOTROPIUM BROMIDE 2.5 MCG (SPIRIVA) RESPIMAT INHALER IH SCH (11:34)
--- NOTE | 2017-12-06 11:52 | PN ---
Physical Exam: SUBJECTIVE: Patient is a 77 y/o male with a history of afib, HTN, HLD, CAD, COPD, DM, PAD, AAA who is here for acute hypoxic respiratory failure 2/2 to COPD exacerbation. Patient had no acute events overnight on high flow oxygen. Switched to nasal cannula 5 L this morning and tolerating well. OBJECTIVE: Vital Signs Temperature 97.9 F 12/06/17 06:00 Pulse Rate 60 12/06/17 06:00 Respiratory Rate 18 12/06/17 06:00 Blood Pressure 119/74 12/06/17 06:00 O2 Sat by Pulse Oximetry (%) 100 12/06/17 05:02 GENERAL: Awake and alert EYES: Pupils equal, round and reactive to light, extraocular movements intact EARS, NOSE, THROAT: Ears normal, nares patent, oropharynx clear without exudates. Moist mucous membranes. LUNGS: lungs clear to auscultation, lower base expiratory wheezes, no accessory muscle use HEART: Regular rate and rhythm, ABDOMEN: Soft, nontender, not distended, LOWER EXTREMITIES: 2+ dp pulses, warm, well-perfused. No calf tenderness. No peripheral edema. 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 CBCD WBC 6.3 K/mm3 (4.0-10.0) 12/06/17 05:30 RBC 3.22 M/mm3 (4.00-5.60) L 12/06/17 05:30 Hgb 9.2 GM/dL (11.7-16.9) L 12/06/17 05:30 Hct 27.7 % (35.4-49) L 12/06/17 05:30 MCV 85.9 fl (80-96) 12/06/17 05:30 MCHC 33.3 g/dl (32.0-35.9) 12/06/17 05:30 RDW 19.3 % (11.9-15.9) H 12/06/17 05:30 Plt Count 130 K/MM3 (134-434) L D 12/06/17 05:30 MPV 10.4 fl (7.5-11.1) 12/06/17 05:30 CMP Sodium 139 mmol/L (136-145) 12/06/17 05:30 Potassium 4.5 mmol/L (3.5-5.1) 12/06/17 05:30 Chloride 108 mmol/L (98-107) H 12/06/17 05:30 Carbon Dioxide 26 mmol/L (21-32) 12/06/17 05:30 Anion Gap 5 MMOL/L (8-16) L 12/06/17 05:30 BUN 26 mg/dL (7-18) H 12/06/17 05:30 Creatinine 0.8 mg/dL (0.55-1.3) 12/06/17 05:30 Creat Clearance w eGFR > 60 (>60) 12/06/17 05:30 Calcium 7.5 mg/dL (8.5-10.1) L 12/06/17 05:30 Total Bilirubin 0.6 mg/dL (0.2-1.0) 12/06/17 05:30 AST 20 U/L (15-37) 12/06/17 05:30 ALT 31 U/L (13-61) 12/06/17 05:30 Alkaline Phosphatase 45 U/L (45-117) 12/06/17 05:30 Total Protein 4.7 g/dl (6.4-8.2) L 12/06/17 05:30 Albumin 2.2 g/dl (3.4-5.0) L 12/06/17 05:30 Active Medications Acetaminophen (Tylenol -) 650 mg PO Q6H PRN PRN Reason: FEVER Last Admin: 12/04/17 14:27 Dose: 650 mg Albuterol Sulfate (Ventolin 0.083% Nebulizer Soln -) 1 amp NEB Q6H PRN PRN Reason: SHORT OF BREATH/WHEEZING Apixaban (Eliquis -) 2.5 mg PO BID [facility] Last Admin: 12/06/17 09:37 Dose: 2.5 mg Atorvastatin Calcium (Lipitor -) 20 mg PO [facility] Last Admin: 12/05/17 21:07 Dose: 20 mg Budesonide/Formoterol Fumarate (Symbicort 160/4.5mcg -) 2 puff IH BID [facility] Last Admin: 12/06/17 11:31 Dose: 2 inhaler Chlorhexidine Gluconate (Hibiclens For Decolonization -) 1 applic TP [facility] Last Admin: 12/05/17 21:07 Dose: 1 applic Duloxetine HCl (Cymbalta -) 60 mg PO DAILY [facility] Last Admin: 12/06/17 09:36 Dose: 60 mg Fluocinonide (Lidex 0.05% Cream -) 1 applic TP DAILY [facility] Last Admin: 12/06/17 09:39 Dose: 1 applic Ceftriaxone Sodium 2 gm/ (Dextrose) 100 mls @ 200 mls/hr IVPB DAILY [facility]; Protocol Last Admin: 12/06/17 09:36 Dose: 200 mls/hr Isosorbide Dinitrate (Isordil -) 10 mg PO BIDISORDIL [facility] Last Admin: 12/06/17 09:38 Dose: 10 mg Levetiracetam (Keppra -) 250 mg PO BID [facility] Last Admin: 12/06/17 09:38 Dose: 250 mg Lisinopril (Prinivil) 10 mg PO DAILY [facility] Last Admin: 12/06/17 09:37 Dose: 10 mg Methylprednisolone Sodium Succinate (Solu-Medrol -) 40 mg IVPUSH Q8H-IV [facility] Last Admin: 12/06/17 09:36 Dose: 40 mg Metoprolol Succinate (Toprol Xl -) 25 mg PO BID [facility] Last Admin: 12/06/17 09:37 Dose: 25 mg Morphine Sulfate (Morphine Sulfate) 4 mg IVPUSH Q6H PRN PRN Reason: PAIN LEVEL 7 - 10 Last Admin: 12/04/17 17:43 Dose: 4 mg Nystatin (Nystop Powder -) 1 applic TP DAILY [facility] Last Admin: 12/06/17 09:39 Dose: 1 applic Pantoprazole Sodium (Protonix -) 40 mg PO DAILY [facility] Last Admin: 12/06/17 09:36 Dose: 40 mg Pregabalin (Lyrica -) 100 mg PO TID [facility] Last Admin: 12/06/17 06:04 Dose: 100 mg Roflumilast (Daliresp -) 500 mcg PO DAILY [facility] Last Admin: 12/06/17 09:38 Dose: 500 mcg Tiotropium [place] (Spiriva Respimat) 2 puff IH DAILY [facility] Last Admin: 12/06/17 11:34 Dose: 2 puff ASSESSMENT/PLAN: Patient is a 77 y/o male with a history of afib, HTN, HLD, CAD, COPD, DM, PAD, AAA who is here for acute hypoxic respiratory failure 2/2 to COPD exacerbation. Neuro Seizure like actvity/ vs fall - Neurology Dr. Melo: may be partial seizure - Keppra 250 mg po BID - head CT: no acute intracranial hemorrhage or acute vascular territory infarction - EEG when possible - consulted Dr. Zamudio: Continue with Duloxatine 60mg po od, Ativan 1mg IM Q 8hrs PRN for aggressive behaviour - no seizures since being in ICU Cardio Hypotension : resolved - Central line placed 12/02 - no pressors currently, suggest levophed if needed - can also give bolus NS before starting levoped afib - metoprolol 25 mg po BID - currently rate controlled and stable - Elliquis 2.[address] Gonzales CAD/HTN - aspirin 81 mg po daily - Isosorbide dinitrate 10 mg po - lipitor 20 mg po hs - privinil restarted at 10 mg daily, can uptitrate to home dose lisinopril once BP stable - echo inadequate study tropinemia : resolved - likely demand - f/u Dr. Flora Kendall acute on chronic hypoxic respiratory failure 2/2 to COPD exacerbation - CXR: no sign of acute process - patient on oxygen at home - keep oxygen saturation between 88-92 % - unlikely to be a PE, patients hypoxia likely chronic, Patient last CTA 10/18 showed history of emphysema - patient currently anticoagulated - patient on 5L NC COPD - Methylprednisolone 40 mg IV push q8h - albuterol q4h - symbicort BID - Rofluminast 500 po daily - Spiriva 2 puff daily - patient on prednisone at home Renal - furosemide 20 mg po daily, held for labile blood pressure - monitor I's & O's - f/u Dr. Ange DÍAZ Hematoma of LUE - UE doppler: no evidence or arterial dissection or aneyursm , superficial hematomas in LUE - history of AAA repair at [facility] - per vascular Dr. Hendricks and surgery Dr. Palumbo, no evidence of compartment syndrome - monitor hemoglobin - continue PT for ROM and to help edema - keep arm elevated above heart - Infectious disease - bcx: Streptococcus Mitis - repeat blood cultures negative - Ceftriaxone ( day 9) - f/u Dr. Benz for duration of treatment GI ppx - protonix 40 mg po daily BPH - tamsulosin .4 mg Endocrine DM - Lyrica 100 mg po TID - A1 C: 6.0 - TSH .12, Free T4:1 DVT ppx - SCD's and elliquis depression - cymbalta 60 mg po daily FEN - diabetic/low sodium diet Dispo:DNR/DNI. Patient can go to the floor to be monitored Visit type - Emergency Visit Emergency Visit: No - New Patient This patient is new to me today: No - Critical Care Critical Care patient: Yes Total Critical Care Time (in minutes): 40 Critical Care Statement: The care of this patient involved high complexity decision making to prevent further life threatening deterioration of the patient 's condition and/or to evaluate & treat vital organ system(s) failure or risk of failure.
--- NOTE | 2017-12-06 11:59 | PN ---
Teaching Attending Note Name of Resident: Erna Newman ATTENDING PHYSICIAN STATEMENT I saw and evaluated the patient. I reviewed the resident's note and discussed the case with the resident. I agree with the resident's findings and plan as documented. SUBJECTIVE: Patient seen and examined in the ICU. Required HF NC O2 overnight due to respiratory distress. Reports feeling a little better this AM. No CP. OBJECTIVE: Intake & Output 12/03/17 12/04/17 12/05/17 12/06/17 23:59 23:59 23:59 23:59 Intake Total 2150 1500 1090 200 Output Total 850 600 750 300 Balance 1300 900 340 -100 Weight 155 lb 10.342 oz 154 lb 15.759 oz 156 lb 9 oz 161 lb 9 oz Last Vital Signs Temp Pulse Resp BP Pulse Ox 97.9 F 60 18 119/74 100 12/06/17 06:00 12/06/17 06:00 12/06/17 06:00 12/06/17 06:00 12/06/17 05:02 Active Medications Acetaminophen (Tylenol -) 650 mg PO Q6H PRN PRN Reason: FEVER Last Admin: 12/04/17 14:27 Dose: 650 mg Albuterol Sulfate (Ventolin 0.083% Nebulizer Soln -) 1 amp NEB Q6H PRN PRN Reason: SHORT OF BREATH/WHEEZING Apixaban (Eliquis -) 2.5 mg PO BID [facility] Last Admin: 12/06/17 09:37 Dose: 2.5 mg Atorvastatin Calcium (Lipitor -) 20 mg PO HS [facility] Last Admin: 12/05/17 21:07 Dose: 20 mg Budesonide/Formoterol Fumarate (Symbicort 160/4.5mcg -) 2 puff IH BID [facility] Last Admin: 12/06/17 11:31 Dose: 2 inhaler Chlorhexidine Gluconate (Hibiclens For Decolonization -) 1 applic TP HS [facility] Last Admin: 12/05/17 21:07 Dose: 1 applic Duloxetine HCl (Cymbalta -) 60 mg PO DAILY [facility] Last Admin: 12/06/17 09:36 Dose: 60 mg Fluocinonide (Lidex 0.05% Cream -) 1 applic TP DAILY [facility] Last Admin: 12/06/17 09:39 Dose: 1 applic Ceftriaxone Sodium 2 gm/ (Dextrose) 100 mls @ 200 mls/hr IVPB DAILY [facility]; Protocol Last Admin: 12/06/17 09:36 Dose: 200 mls/hr Isosorbide Dinitrate (Isordil -) 10 mg PO BIDISORDIL [facility] Last Admin: 12/06/17 09:38 Dose: 10 mg Levetiracetam (Keppra -) 250 mg PO BID [facility] Last Admin: 12/06/17 09:38 Dose: 250 mg Lisinopril (Prinivil) 10 mg PO DAILY [facility] Last Admin: 12/06/17 09:37 Dose: 10 mg Methylprednisolone Sodium Succinate (Solu-Medrol -) 40 mg IVPUSH Q8H-IV [facility] Last Admin: 12/06/17 09:36 Dose: 40 mg Metoprolol Succinate (Toprol Xl -) 25 mg PO BID [facility] Last Admin: 12/06/17 09:37 Dose: 25 mg Morphine Sulfate (Morphine Sulfate) 4 mg IVPUSH Q6H PRN PRN Reason: PAIN LEVEL 7 - 10 Last Admin: 12/04/17 17:43 Dose: 4 mg Nystatin (Nystop Powder -) 1 applic TP DAILY [facility] Last Admin: 12/06/17 09:39 Dose: 1 applic Pantoprazole Sodium (Protonix -) 40 mg PO DAILY [facility] Last Admin: 12/06/17 09:36 Dose: 40 mg Pregabalin (Lyrica -) 100 mg PO TID [facility] Last Admin: 12/06/17 06:04 Dose: 100 mg Roflumilast (Daliresp -) 500 mcg PO DAILY [facility] Last Admin: 12/06/17 09:38 Dose: 500 mcg Tiotropium [place] (Spiriva Respimat) 2 puff IH DAILY [facility] Last Admin: 12/06/17 11:34 Dose: 2 puff Gen: Mildly tachypniec at rest Heart: irregular Lung: distant breath sounds Abd: soft, nontender Ext: left arm hematoma Laboratory Results - last 24 hr 11/30/17 12/06/17 12/06/17 05:30 05:30 05:30 WBC 6.3 RBC 3.22 L Hgb 9.2 L Hct 27.7 L MCV 85.9 MCH 28.6 MCHC 33.3 RDW 19.3 H Plt Count 130 L D MPV 10.4 Sodium 139 Potassium 4.5 Chloride 108 H Carbon Dioxide 26 Anion Gap 5 L BUN 26 H Creatinine 0.8 Creat Clearance w eGFR > 60 Random Glucose 100 Calcium 7.5 L Phosphorus 3.4 Magnesium 2.2 Total Bilirubin 0.6 AST 20 ALT 31 Alkaline Phosphatase 45 Total Protein 4.7 L Albumin 2.2 L Heparin-Ind Plt Ab Scrn 0.342 ASSESSMENT AND PLAN: Acute on Chronic Hypoxic Respiratory Failure Left Arm Hematoma Seizures Acute COPD Exacerbation LV Diastolic Dysfunction Atrial Fibrillation Acute on Chronic Renal Failure h/o CVA CAD HTN Hyperlipidemia - Trial of NC O2 as tolerated - monitor hematoma - continue antibiotics - Continue solumderol - inhaled bronchodilators - monitor urine output, creatinine - rate control - continue anticoagulation - Made DNR/DNI - Cardiac Telemetry monitoring Dr Alberto Critical care time spent in reviewing chart, evaluating patient and formulating plan 35 min
--- NOTE | 2017-12-06 13:31 | PN ---
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, Physician History of Present Illness: Pt seen and examined at bedside. He is awake and appears comfortable. His mental status is improved. - Current Medication List Current Medications: Active Medications Acetaminophen (Tylenol -) 650 mg PO Q6H PRN PRN Reason: FEVER Last Admin: 12/04/17 14:27 Dose: 650 mg Albuterol Sulfate (Ventolin 0.083% Nebulizer Soln -) 1 amp NEB Q6H PRN PRN Reason: SHORT OF BREATH/WHEEZING Apixaban (Eliquis -) 2.5 mg PO BID [facility] Last Admin: 12/06/17 09:37 Dose: 2.5 mg Atorvastatin Calcium (Lipitor -) 20 mg PO HS [facility] Last Admin: 12/05/17 21:07 Dose: 20 mg Budesonide/Formoterol Fumarate (Symbicort 160/4.5mcg -) 2 puff IH BID [facility] Last Admin: 12/06/17 11:31 Dose: 2 inhaler Chlorhexidine Gluconate (Hibiclens For Decolonization -) 1 applic TP HS [facility] Last Admin: 12/05/17 21:07 Dose: 1 applic Duloxetine HCl (Cymbalta -) 60 mg PO DAILY [facility] Last Admin: 12/06/17 09:36 Dose: 60 mg Fluocinonide (Lidex 0.05% Cream -) 1 applic TP DAILY [facility] Last Admin: 12/06/17 09:39 Dose: 1 applic Ceftriaxone Sodium 2 gm/ (Dextrose) 100 mls @ 200 mls/hr IVPB DAILY [facility]; Protocol Last Admin: 12/06/17 09:36 Dose: 200 mls/hr Isosorbide Dinitrate (Isordil -) 10 mg PO BIDISORDIL [facility] Last Admin: 12/06/17 09:38 Dose: 10 mg Levetiracetam (Keppra -) 250 mg PO BID [facility] Last Admin: 12/06/17 09:38 Dose: 250 mg Lisinopril (Prinivil) 10 mg PO DAILY [facility] Last Admin: 12/06/17 09:37 Dose: 10 mg Methylprednisolone Sodium Succinate (Solu-Medrol -) 40 mg IVPUSH Q8H-IV [facility] Last Admin: 12/06/17 09:36 Dose: 40 mg Metoprolol Succinate (Toprol Xl -) 25 mg PO BID [facility] Last Admin: 12/06/17 09:37 Dose: 25 mg Morphine Sulfate (Morphine Sulfate) 4 mg IVPUSH Q6H PRN PRN Reason: PAIN LEVEL 7 - 10 Last Admin: 12/04/17 17:43 Dose: 4 mg Nystatin (Nystop Powder -) 1 applic TP DAILY [facility] Last Admin: 12/06/17 09:39 Dose: 1 applic Pantoprazole Sodium (Protonix -) 40 mg PO DAILY [facility] Last Admin: 12/06/17 09:36 Dose: 40 mg Pregabalin (Lyrica -) 100 mg PO TID [facility] Last Admin: 12/06/17 06:04 Dose: 100 mg Roflumilast (Daliresp -) 500 mcg PO DAILY [facility] Last Admin: 12/06/17 09:38 Dose: 500 mcg Tiotropium [place] (Spiriva Respimat) 2 puff IH DAILY [facility] Last Admin: 12/06/17 11:34 Dose: 2 puff - Objective Vital Signs: Vital Signs Temperature 98.2 F 12/06/17 10:00 Pulse Rate 64 12/06/17 12:00 Respiratory Rate 12/06/17 12:00 Blood Pressure 120/84 12/06/17 12:00 O2 Sat by Pulse Oximetry (%) 92 L 12/06/17 10:35 Constitutional: Yes: Calm Eyes: Yes: Conjunctiva Clear HENT: Yes: Atraumatic Cardiovascular: Yes: S1, S2 Respiratory: Yes: On Nasal O2 Gastrointestinal: Yes: Soft Genitourinary: Yes: WNL Musculoskeletal: Yes: WNL Edema: Yes Edema: LUE: 1+ Neurological: Yes: Oriented Psychiatric: Yes: Oriented Labs: CBC, BMP 12/06/17 05:30 12/06/17 05:30 INR, PTT INR 1.04 (0.83-1.09) 11/27/17 05:30 Problem List - Problems (1) Fall Code(s): W19.XXXA - UNSPECIFIED FALL, INITIAL ENCOUNTER Qualifiers: Qualified Code(s): W19.XXXD - Unspecified fall, subsequent encounter (2) CAD (coronary artery disease) Code(s): I25.10 - ATHSCL HEART DISEASE OF [place] CORONARY ARTERY W/O ANG PCTRS (3) CHF (congestive heart failure) Code(s): I50.9 - HEART FAILURE, UNSPECIFIED (4) CKD (chronic kidney disease) Code(s): N18.9 - CHRONIC KIDNEY DISEASE, UNSPECIFIED Qualifiers: Qualified Code(s): N18.3 - Chronic kidney disease, stage 3 (moderate) Assessment/Plan Current Medications Generic Name Dose Route Start Last Admin Trade Name Freq PRN Reason Stop Dose Admin Acetaminophen 650 mg 12/03/17 18:52 12/04/17 14:27 Tylenol - PO 650 mg Q6H PRN Administration FEVER Albuterol Sulfate 1 amp 12/05/17 12:37 Ventolin 0.083% Nebulizer Soln - NEB Q6H PRN SHORT OF BREATH/WHEEZING Apixaban 2.5 mg 12/05/17 10:00 12/06/17 09:37 Eliquis - PO 2.5 mg BID [facility] Administration Atorvastatin Calcium 20 mg 12/03/17 22:00 12/05/17 21:07 Lipitor - PO 20 mg HS [facility] Administration Budesonide/Formoterol Fumarate 2 puff 12/04/17 22:00 12/06/17 11:31 Symbicort 160/4.5mcg - IH 2 inhaler BID [facility] Administration Chlorhexidine Gluconate 1 applic 12/03/17 22:00 12/05/17 21:07 Hibiclens For Decolonization - TP 1 applic HS [facility] Administration Duloxetine HCl 60 mg 12/04/17 10:00 12/06/17 09:36 Cymbalta - PO 60 mg DAILY [facility] Administration Fluocinonide 1 applic 12/04/17 10:00 12/06/17 09:39 Lidex 0.05% Cream - TP 1 applic DAILY [facility] Administration Ceftriaxone Sodium 2 gm/ 100 mls @ 200 mls/hr 12/04/17 10:00 12/06/17 09:36 Dextrose IVPB 200 mls/hr DAILY [facility] Administration Protocol Isosorbide Dinitrate 10 mg 12/04/17 10:00 12/06/17 09:38 Isordil - PO 10 mg BIDISORDIL [facility] Administration Levetiracetam 250 mg 12/03/17 22:00 12/06/17 09:38 Keppra - PO 250 mg BID [facility] Administration Lisinopril 10 mg 12/04/17 10:00 12/06/17 09:37 Prinivil PO 10 mg DAILY [facility] Administration Methylprednisolone Sodium Succinate 40 mg 12/05/17 18:00 12/06/17 09:36 Solu-Medrol - IVPUSH 40 mg Q8H-IV [facility] Administration Metoprolol Succinate 25 mg 12/03/17 22:00 12/06/17 09:37 Toprol Xl - PO 25 mg BID [facility] Administration Morphine Sulfate 4 mg 12/03/17 18:52 12/04/17 17:43 Morphine Sulfate IVPUSH 4 mg Q6H PRN Administration PAIN LEVEL 7 - 10 Nystatin 1 applic 12/04/17 10:00 12/06/17 09:39 Nystop Powder - TP 1 applic DAILY [facility] Administration Pantoprazole Sodium 40 mg 12/04/17 10:00 12/06/17 09:36 Protonix - PO 40 mg DAILY [facility] Administration Pregabalin 100 mg 12/03/17 22:00 12/06/17 06:04 Lyrica - PO 100 mg TID [facility] Administration Roflumilast 500 mcg 12/05/17 12:45 12/06/17 09:38 Daliresp - PO 500 mcg DAILY [facility] Administration Tiotropium [place] 2 puff 12/05/17 12:45 12/06/17 11:34 Spiriva Respimat IH 2 puff DAILY [facility] Administration Impression 1. CKD 2. COPD exacerbation 3. AAA 4. hx CVA 5. a-fib 6. HTN 7. insomnia 8. hypoxic resp failure 9. CAD 10. BPH 12. microscopic hematuria 13. hypoxia Plan - monitor bp - renal function is stable - pt tolerating lisinopril - steroids with taper - cont oxygen - monitor lytes - avoid nsaids - will follow
[2017-12-06] MEDS: ACETAMINOPHEN 325 MG TABLET (FP) PO PRN ×2 (14:35→21:27)
[2017-12-06] MEDS ORDERED: QUEtiapine FUMARATE 25 MG TABLET (FP) PO PRN (15:34)
[2017-12-06] MEDS ORDERED: PT OWN MED DRAWER 7, Y5N ONE (20:31)
[2017-12-06] MEDS: QUEtiapine FUMARATE 25 MG TABLET (FP) PO SCH (21:26)
[2017-12-06] MEDS: ATORVASTATIN CA 20 MG TABLET (FP) PO SCH (21:27)
[2017-12-06] MEDS: CHLORHEXIDINE GLUCONATE 4% CLEANSER FOR DECOLONIZATION TP SCH (21:28)
[2017-12-07] MEDS: methylPREDNISolone NA SUCC 40 MG/1 ML VIAL IVPUSH SCH ×3 (01:45→22:02)
[2017-12-07 06:09] LABS: ALBUMIN 2.2 g/dl (3.4-5.0); ANION GAP 3 MMOL/L (8-16); BILIRUBIN,TOTAL 0.6 mg/dL (0.2-1.0); BLOOD UREA NITROGEN 34 mg/dL (7-18); CALCIUM 7.9 mg/dL (8.5-10.1); CHLORIDE 111 mmol/L (98-107); CO2 28 mmol/L (21-32); CREATININE 0.9 mg/dL (0.55-1.3); GLUCOSE,RANDOM 89 mg/dL (74-106); MAGNESIUM 2.2 mg/dL (1.8-2.4); PHOSPHOROUS 3.8 mg/dL (2.5-4.9); POTASSIUM 4.3 mmol/L (3.5-5.1); SGOT/AST 20 U/L (15-37); SGPT/ALT 31 U/L (13-61); SODIUM 142 mmol/L (136-145); TOT PROT 4.7 g/dl (6.4-8.2)
[2017-12-07 06:10] LABS: ALK PHOS 45 U/L (45-117)
[2017-12-07] MEDS: PREGABALIN 100 MG CAPSULE PO SCH ×3 (06:16→22:00)
[2017-12-07 06:33] LABS: BASO % 0.2 % (0-2.0); HEMOGLOBIN 9.1 GM/dL (11.7-16.9); LYMPH % 5.6 % (8-40); MCHC 32.3 g/dl (32.0-35.9); MEAN CELL VOLUME 86.5 fl (80-96); MEAN PLT VOLUME 10.2 fl (7.5-11.1); MONO % 5.7 % (3.8-10.2); NEUT % 88.5 % (42.8-82.8); PLATELET COUNT 128 K/MM3 (134-434); RBC 3.24 M/mm3 (4.00-5.60); RDW 19.8 % (11.9-15.9)
[2017-12-07] MEDS ORDERED: PT OWN MED DRAWER 7, Y5N ONE ×4 (09:06→21:48)
[2017-12-07] MEDS ORDERED: DEXTROSE 5%-WATER 100 ML IVPB ONE (09:06)
--- NOTE | 2017-12-07 09:07 | PN ---
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, Physician Chief Complaint: DOING BETTER ON 02 NC DENIES CHEST PAIN OR SOB - Current Medication List Current Medications: Active Medications Acetaminophen (Tylenol -) 650 mg PO Q6H PRN PRN Reason: FEVER Last Admin: 12/06/17 21:27 Dose: 650 mg Albuterol Sulfate (Ventolin 0.083% Nebulizer Soln -) 1 amp NEB Q6H PRN PRN Reason: SHORT OF BREATH/WHEEZING Apixaban (Eliquis -) 2.5 mg PO BID [facility] Last Admin: 12/06/17 21:26 Dose: 2.5 mg Atorvastatin Calcium (Lipitor -) 20 mg PO HS [facility] Last Admin: 12/06/17 21:27 Dose: 20 mg Budesonide/Formoterol Fumarate (Symbicort 160/4.5mcg -) 2 puff IH BID [facility] Last Admin: 12/06/17 21:28 Dose: 2 inhaler Chlorhexidine Gluconate (Hibiclens For Decolonization -) 1 applic TP HS [facility] Last Admin: 12/06/17 21:28 Dose: 1 applic Duloxetine HCl (Cymbalta -) 60 mg PO DAILY [facility] Last Admin: 12/06/17 09:36 Dose: 60 mg Fluocinonide (Lidex 0.05% Cream -) 1 applic TP DAILY [facility] Last Admin: 12/06/17 09:39 Dose: 1 applic Ceftriaxone Sodium 2 gm/ (Dextrose) 100 mls @ 200 mls/hr IVPB DAILY [facility]; Protocol Last Admin: 12/06/17 09:36 Dose: 200 mls/hr Isosorbide Dinitrate (Isordil -) 10 mg PO BIDISORDIL [facility] Last Admin: 12/06/17 17:43 Dose: 10 mg Levetiracetam (Keppra -) 250 mg PO BID [facility] Last Admin: 12/06/17 21:26 Dose: 250 mg Lisinopril (Prinivil) 10 mg PO DAILY [facility] Last Admin: 12/06/17 09:37 Dose: 10 mg Methylprednisolone Sodium Succinate (Solu-Medrol -) 40 mg IVPUSH Q8H-IV [facility] Last Admin: 12/07/17 01:45 Dose: 40 mg Metoprolol Succinate (Toprol Xl -) 25 mg PO BID [facility] Last Admin: 12/06/17 21:27 Dose: 25 mg Morphine Sulfate (Morphine Sulfate) 4 mg IVPUSH Q6H PRN PRN Reason: PAIN LEVEL 7 - 10 Last Admin: 12/04/17 17:43 Dose: 4 mg Nystatin (Nystop Powder -) 1 applic TP DAILY [facility] Last Admin: 12/06/17 09:39 Dose: 1 applic Pantoprazole Sodium (Protonix -) 40 mg PO DAILY [facility] Last Admin: 12/06/17 09:36 Dose: 40 mg Pregabalin (Lyrica -) 100 mg PO TID [facility] Last Admin: 12/07/17 06:16 Dose: 100 mg Quetiapine Fumarate (Seroquel -) 12.5 mg PO HS [facility] Last Admin: 12/06/17 21:26 Dose: 12.5 mg Quetiapine Fumarate (Seroquel -) 12.5 mg PO AM PRN PRN Reason: ANXIETY Roflumilast (Daliresp -) 500 mcg PO DAILY [facility] Last Admin: 12/06/17 09:38 Dose: 500 mcg Tiotropium [place] (Spiriva Respimat) 2 puff IH DAILY [facility] Last Admin: 12/06/17 11:34 Dose: 2 puff - Objective Vital Signs: Vital Signs Temperature 98.2 F 12/07/17 02:00 Pulse Rate 62 12/07/17 08:31 Respiratory Rate 17 12/07/17 08:26 Blood Pressure 160/95 12/07/17 08:24 O2 Sat by Pulse Oximetry (%) 95 12/07/17 08:31 Constitutional: Yes: Mild Distress Eyes: Yes: WNL HENT: Yes: WNL Neck: Yes: WNL Respiratory: Yes: On Nasal O2, Poor Air Entry Gastrointestinal: Yes: WNL ...Rectal Exam: Yes: WNL Genitourinary: Yes: WNL Musculoskeletal: Yes: Muscle Weakness Extremities: Yes: WNL Edema: Yes Edema: LLE: 1+, RLE: 1+ Peripheral Pulses WNL: Yes Integumentary: Yes: WNL Wound/Incision: Yes: Clean/Dry Neurological: Yes: WNL ...Motor Strength: WNL Psychiatric: Yes: WNL Labs: CBC, BMP 12/07/17 05:10 12/07/17 05:10 INR, PTT INR 1.04 (0.83-1.09) 11/27/17 05:30 Problem List - Problems (1) Bacteremia Code(s): R78.81 - BACTEREMIA (2) Cardiomyopathy Code(s): I42.9 - CARDIOMYOPATHY, UNSPECIFIED Qualifiers: Cardiomyopathy type: ischemic Qualified Code(s): I25.5 - Ischemic cardiomyopathy (3) Chronic respiratory failure with hypoxia Code(s): J96.11 - CHRONIC RESPIRATORY FAILURE WITH HYPOXIA (4) History of aortic aneurysm repair Code(s): Z98.890 - OTHER SPECIFIED POSTPROCEDURAL STATES; Z86.79 - PERSONAL HISTORY OF OTHER DISEASES OF THE CIRCULATORY SYSTEM (5) History of arterial bypass of lower extremity Code(s): Z95.828 - PRESENCE OF OTHER VASCULAR IMPLANTS AND GRAFTS (6) SOB (shortness of breath) Code(s): R06.02 - SHORTNESS OF BREATH (7) Tachycardia Code(s): R00.0 - TACHYCARDIA, UNSPECIFIED (8) CAD (coronary artery disease) Code(s): I25.10 - ATHSCL HEART DISEASE OF [place] CORONARY ARTERY W/O ANG PCTRS Qualifiers: Coronary Disease-Associated Artery/Lesion type: false pass artery (9) History of permanent cardiac pacemaker placement Code(s): Z95.0 - PRESENCE OF CARDIAC PACEMAKER Assessment/Plan SEROQUEL HS 12.5MG NEBS STEROIDS 02 SUPPORT OOB TO CHAIR SNF PLACEMENT
[2017-12-07] MEDS: CEFTRIAXONE 2 GM in DEXTROSE 5%-WATER 100 ML IVPB SCH (09:10)
[2017-12-07] MEDS: DULoxetine HCL 30 MG CAPSULE.DR (FP) PO SCH (09:11)
[2017-12-07] MEDS: ROFLUMILAST 500 MCG TABLET PO SCH (09:12)
[2017-12-07] MEDS: APIXABAN 2.5 MG TABLET PO SCH ×2 (09:12→22:00)
[2017-12-07] MEDS: levETIRAcetam 250 MG TABLET (FP) PO SCH ×2 (09:12→22:05)
[2017-12-07] MEDS: FLUOCINONIDE 0.05% CREAM (60 GM TUBE) TP SCH (09:12)
[2017-12-07] MEDS: ISOSORBIDE DINITRATE 10 MG TABLET (FP) PO SCH ×2 (09:12→18:29)
[2017-12-07] MEDS: LISINOPRIL 10 MG TABLET (FP) PO SCH (09:13)
[2017-12-07] MEDS: metoPROLOL SUCCINATE 25 MG TAB.SR.24H (FP) PO SCH ×2 (09:13→22:02)
[2017-12-07] MEDS: NYSTATIN POWDER 100,000 UNITS/GM - 15 GM TOPICAL POWDER TP SCH (09:13)
[2017-12-07] MEDS: PANTOPRAZOLE 40 MG TABLET (FP) PO SCH (09:14)
--- NOTE | 2017-12-07 09:33 | PN ---
Physical Exam: SUBJECTIVE: Patient seen and examined in ICU. He is feeling good today, no more SOB, no overnight events, now on 5 L NC, saturating well. OBJECTIVE: Vital Signs Period Temp Pulse Resp BP Sys/Varghese Pulse Ox Last 24 Hr 98.2 F-98.4 F 60-79 15-20 107-160/73-95 92-96 GENERAL: The patient is awake, alert, and fully oriented, in no acute distress. HEAD: Normal with no signs of trauma. EYES: Extraocular movements intact, sclera anicteric, conjunctiva clear. ENT: Moist mucous membranes. NECK: Trachea midline, full range of motion, supple. LUNGS: Breath sounds equal, diminished to auscultation bilaterally, no wheezes. HEART: Irregular rate and rhythm, S1, S2 without murmur, rub or gallop. ABDOMEN: Soft, nontender, nondistended, normoactive bowel sounds, no guarding, no rebound. EXTREMITIES: No edema. NEUROLOGICAL: No focal deficits, no slurred speech. PSYCH: Normal mood, normal affect. SKIN: Warm, dry, normal turgor, no rashes. Laboratory Results - last 24 hr 12/07/17 12/07/17 05:10 05:10 WBC 7.0 RBC 3.24 L Hgb 9.1 L Hct 28.0 L MCV 86.5 MCH 28.0 MCHC 32.3 RDW 19.8 H Plt Count 128 L MPV 10.2 Absolute Neuts (auto) 6.2 Neutrophils % 88.5 H Lymphocytes % 5.6 L D Monocytes % 5.7 Eosinophils % 0.0 D Basophils % 0.2 Nucleated RBC % 0 Sodium 142 Potassium 4.3 Chloride 111 H Carbon Dioxide 28 Anion Gap 3 L BUN 34 H Creatinine 0.9 Creat Clearance w eGFR > 60 Random Glucose 89 Calcium 7.9 L Phosphorus 3.8 Magnesium 2.2 Total Bilirubin 0.6 AST 20 ALT 31 Alkaline Phosphatase 45 Total Protein 4.7 L Albumin 2.2 L Active Medications Generic Name Dose Route Start Last Admin Trade Name Freq PRN Reason Stop Dose Admin Acetaminophen 650 mg 12/03/17 18:52 12/06/17 21:27 Tylenol - PO 650 mg Q6H PRN Administration FEVER Albuterol Sulfate 1 amp 12/05/17 12:37 Ventolin 0.083% Nebulizer Soln - NEB Q6H PRN SHORT OF BREATH/WHEEZING Apixaban 2.5 mg 12/05/17 10:00 12/07/17 09:12 Eliquis - PO 2.5 mg BID DIANNE Administration Atorvastatin Calcium 20 mg 12/03/17 22:00 12/06/17 21:27 Lipitor - PO 20 mg HS DIANNE Administration Budesonide/Formoterol Fumarate 2 puff 12/04/17 22:00 12/06/17 21:28 Symbicort 160/4.5mcg - IH 2 inhaler BID DIANNE Administration Chlorhexidine Gluconate 1 applic 12/03/17 22:00 12/06/17 21:28 Hibiclens For Decolonization - TP 1 applic HS DIANNE Administration Duloxetine HCl 60 mg 12/04/17 10:00 12/07/17 09:11 Cymbalta - PO 60 mg DAILY DIANNE Administration Fluocinonide 1 applic 12/04/17 10:00 12/07/17 09:12 Lidex 0.05% Cream - TP 1 applic DAILY DIANNE Administration Ceftriaxone Sodium 2 gm/ 100 mls @ 200 mls/hr 12/04/17 10:00 12/07/17 09:10 Dextrose IVPB 200 mls/hr DAILY DIANNE Administration Protocol Isosorbide Dinitrate 10 mg 12/04/17 10:00 12/07/17 09:12 Isordil - PO 10 mg BIDISORDIL DIANNE Administration Levetiracetam 250 mg 12/03/17 22:00 12/07/17 09:12 Keppra - PO 250 mg BID DIANNE Administration Lisinopril 10 mg 12/04/17 10:00 12/07/17 09:13 Prinivil PO 10 mg DAILY DIANNE Administration Methylprednisolone Sodium Succinate 40 mg 12/05/17 18:00 12/07/17 09:11 Solu-Medrol - IVPUSH 40 mg Q8H-IV DIANNE Administration Metoprolol Succinate 25 mg 12/03/17 22:00 12/07/17 09:13 Toprol Xl - PO 25 mg BID DIANNE Administration Morphine Sulfate 4 mg 12/03/17 18:52 12/04/17 17:43 Morphine Sulfate IVPUSH 4 mg Q6H PRN Administration PAIN LEVEL 7 - 10 Nystatin 1 applic 12/04/17 10:00 12/07/17 09:13 Nystop Powder - TP 1 applic DAILY DIANNE Administration Pantoprazole Sodium 40 mg 12/04/17 10:00 12/07/17 09:14 Protonix - PO 40 mg DAILY DIANNE Administration Pregabalin 100 mg 12/03/17 22:00 12/07/17 06:16 Lyrica - PO 100 mg TID DIANNE Administration Quetiapine Fumarate 12.5 mg 12/06/17 22:00 12/06/17 21:26 Seroquel - PO 12.5 mg HS DIANNE Administration Quetiapine Fumarate 12.5 mg 12/06/17 15:34 Seroquel - PO AM PRN ANXIETY Roflumilast 500 mcg 12/05/17 12:45 12/07/17 09:12 Daliresp - PO 500 mcg DAILY DIANNE Administration Tiotropium [place] 2 puff 12/05/17 12:45 12/06/17 11:34 Spiriva Respimat IH 2 puff DAILY DIANNE Administration ASSESSMENT/PLAN: Patient is a 77 y/o male with a history of A.fib, HTN, HLD, CAD, COPD, DM, PAD, AAA admitted to ICU for acute hypoxic respiratory failure due to COPD exacerbation. Pulmonary: acute on chronic hypoxic respiratory failure due to COPD exacerbation - keep oxygen saturation between 88-92 % - continue 5L NC COPD exacerbation (on 2 L NC at home and Prednisone) - Methylprednisolone 40 mg IV q8h decreased to Q12 h today - continue albuterol q4h, Symbicort BID, Rofluminast 500 po daily, Spiriva 2 puff daily Cardiology: Hypotension due to volume depletion - Levophed titrated down - Central line placed 12/02 A.fib - continue metoprolol 25 mg po BID - Eliquis 2.5 BID CAD/HTN - aspirin 81 mg po daily - Isosorbide dinitrate 10 mg PO, Lisinopril 10 mg qd - lipitor 20 mg po hs - echo inadequate study Tropinemia -likely demand, resolved Neurology Seizure like actvity/ vs fall, no more seizures in ICU - cont Keppra 250 mg po BID - head CT: no acute pathology Psychiatry - consulted Psychiatry-Dr. Zamudio for agitation/aggressive behaviour : continue with Duloxatine 60mg po od, Ativan 1mg IM Q 8hrs PRN, Seroquel Renal - Furosemide 20 mg po daily held -avoid nephrotoxins -f/u Nephro recommendations MSK Hematoma of LUE, s/p fall - UE doppler: no evidence or arterial dissection or aneyursm , superficial hematomas in LUE - per vascular and surgery no evidence of compartment syndrome -CBC stable, resumed anticoagulation - continue PT Infectious disease - bcx: Streptococcus Mitis - cont Ceftriaxone ( f/u ID for duration of treatment) GI - protonix 40 mg po daily BPH - cont tamsulosin 0.4 mg, urinating well, Apple removed Endocrine DMII - cont Lyrica 100 mg po TID - A1 C: 6.0, not on meds DVT ppx - eliquis FEN - diabetic/low sodium diet/ no fluids Dispo: DNR/DNI. Waiting for telemetry bed. Problem List - Problems (1) Fall Code(s): W19.XXXA - UNSPECIFIED FALL, INITIAL ENCOUNTER Qualifiers: Encounter type: subsequent encounter Qualified Code(s): W19.XXXD - Unspecified fall, subsequent encounter (2) Hematoma Code(s): T14.8XXA - OTHER INJURY OF UNSPECIFIED BODY REGION, INITIAL ENCOUNTER (3) Hypotension Code(s): I95.9 - HYPOTENSION, UNSPECIFIED (4) Leukocytosis (leucocytosis) Code(s): D72.829 - ELEVATED WHITE BLOOD CELL COUNT, UNSPECIFIED (5) Seizure Code(s): R56.9 - UNSPECIFIED CONVULSIONS (6) Traumatic hematoma of left upper arm Code(s): S40.022A - CONTUSION OF LEFT UPPER ARM, INITIAL ENCOUNTER Qualifiers: Encounter type: initial encounter Qualified Code(s): S40.022A - Contusion of left upper arm, initial encounter (7) Acute kidney injury Code(s): N17.9 - ACUTE KIDNEY FAILURE, UNSPECIFIED (8) CAD (coronary artery disease) Code(s): I25.10 - ATHSCL HEART DISEASE OF [place] CORONARY ARTERY W/O ANG PCTRS Qualifiers: Coronary Disease-Associated Artery/Lesion type: [place] artery Associated angina: with stable angina (9) CHF (congestive heart failure) Code(s): I50.9 - HEART FAILURE, UNSPECIFIED (10) CKD (chronic kidney disease) Code(s): N18.9 - CHRONIC KIDNEY DISEASE, UNSPECIFIED Qualifiers: Chronic kidney disease stage: stage 3 (moderate) Qualified Code(s): N18.3 - Chronic kidney disease, stage 3 (moderate) (11) COPD (chronic obstructive pulmonary disease) Code(s): J44.9 - CHRONIC OBSTRUCTIVE PULMONARY DISEASE, UNSPECIFIED Qualifiers: COPD type: COPD with acute exacerbation Qualified Code(s): J44.1 - Chronic obstructive pulmonary disease with (acute) exacerbation (12) COPD exacerbation Code(s): J44.1 - CHRONIC OBSTRUCTIVE PULMONARY DISEASE W (ACUTE) EXACERBATION Visit type - Emergency Visit Emergency Visit: Yes ED Registration Date: 11/23/17 Care time: The patient presented to the Emergency Department on the above date and was hospitalized for further evaluation of their emergent condition. - New Patient This patient is new to me today: No - Critical Care Critical Care patient: Yes Total Critical Care Time (in minutes): 40 Critical Care Statement: The care of this patient involved high complexity decision making to prevent further life threatening deterioration of the patient 's condition and/or to evaluate & treat vital organ system(s) failure or risk of failure.
[2017-12-07] MEDS: TIOTROPIUM BROMIDE 2.5 MCG (SPIRIVA) RESPIMAT INHALER IH SCH (09:43)
--- NOTE | 2017-12-07 09:43 | PN ---
Teaching Attending Note Name of Resident: Padmini Arellano ATTENDING PHYSICIAN STATEMENT I saw and evaluated the patient. I reviewed the resident's note and discussed the case with the resident. I agree with the resident's findings and plan as documented. SUBJECTIVE: Patient seen and examined in the ICU. Currently off HFNC O2 and comfortable on 4 L NC O2. Reports feeling a little better this AM. No CP. OBJECTIVE: Intake & Output 12/04/17 12/05/17 12/06/17 12/07/17 23:59 23:59 23:59 23:59 Intake Total 1500 1090 610 150 Output Total 602 302 6094 300 Balance 900 340 -440 -150 Weight 154 lb 15.759 oz 156 lb 9 oz 161 lb 9 oz 158 lb Last Vital Signs Temp Pulse Resp BP Pulse Ox 98.2 F 62 17 160/95 95 12/07/17 02:00 12/07/17 08:31 12/07/17 08:26 12/07/17 08:24 12/07/17 08:31 Active Medications Acetaminophen (Tylenol -) 650 mg PO Q6H PRN PRN Reason: FEVER Last Admin: 12/06/17 21:27 Dose: 650 mg Albuterol Sulfate (Ventolin 0.083% Nebulizer Soln -) 1 amp NEB Q6H PRN PRN Reason: SHORT OF BREATH/WHEEZING Apixaban (Eliquis -) 2.5 mg PO BID [facility] Last Admin: 12/07/17 09:12 Dose: 2.5 mg Atorvastatin Calcium (Lipitor -) 20 mg PO HS [facility] Last Admin: 12/06/17 21:27 Dose: 20 mg Budesonide/Formoterol Fumarate (Symbicort 160/4.5mcg -) 2 puff IH BID [facility] Last Admin: 12/06/17 21:28 Dose: 2 inhaler Chlorhexidine Gluconate (Hibiclens For Decolonization -) 1 applic TP HS [facility] Last Admin: 12/06/17 21:28 Dose: 1 applic Duloxetine HCl (Cymbalta -) 60 mg PO DAILY [facility] Last Admin: 12/07/17 09:11 Dose: 60 mg Fluocinonide (Lidex 0.05% Cream -) 1 applic TP DAILY [facility] Last Admin: 12/07/17 09:12 Dose: 1 applic Ceftriaxone Sodium 2 gm/ (Dextrose) 100 mls @ 200 mls/hr IVPB DAILY [facility]; Protocol Last Admin: 12/07/17 09:10 Dose: 200 mls/hr Isosorbide Dinitrate (Isordil -) 10 mg PO BIDISORDIL [facility] Last Admin: 12/07/17 09:12 Dose: 10 mg Levetiracetam (Keppra -) 250 mg PO BID [facility] Last Admin: 12/07/17 09:12 Dose: 250 mg Lisinopril (Prinivil) 10 mg PO DAILY [facility] Last Admin: 12/07/17 09:13 Dose: 10 mg Methylprednisolone Sodium Succinate (Solu-Medrol -) 40 mg IVPUSH Q8H-IV [facility] Last Admin: 12/07/17 09:11 Dose: 40 mg Metoprolol Succinate (Toprol Xl -) 25 mg PO BID [facility] Last Admin: 12/07/17 09:13 Dose: 25 mg Morphine Sulfate (Morphine Sulfate) 4 mg IVPUSH Q6H PRN PRN Reason: PAIN LEVEL 7 - 10 Last Admin: 12/04/17 17:43 Dose: 4 mg Nystatin (Nystop Powder -) 1 applic TP DAILY [facility] Last Admin: 12/07/17 09:13 Dose: 1 applic Pantoprazole Sodium (Protonix -) 40 mg PO DAILY [facility] Last Admin: 12/07/17 09:14 Dose: 40 mg Pregabalin (Lyrica -) 100 mg PO TID [facility] Last Admin: 12/07/17 06:16 Dose: 100 mg Quetiapine Fumarate (Seroquel -) 12.5 mg PO HS [facility] Last Admin: 12/06/17 21:26 Dose: 12.5 mg Quetiapine Fumarate (Seroquel -) 12.5 mg PO AM PRN PRN Reason: ANXIETY Roflumilast (Daliresp -) 500 mcg PO DAILY [facility] Last Admin: 12/07/17 09:12 Dose: 500 mcg Tiotropium [place] (Spiriva Respimat) 2 puff IH DAILY [facility] Last Admin: 12/06/17 11:34 Dose: 2 puff Gen: More comfortable Heart: irregular Lung: distant breath sounds, few scattered rhonchi Abd: soft, nontender Ext: left arm hematoma Laboratory Results - last 24 hr 12/07/17 12/07/17 05:10 05:10 WBC 7.0 RBC 3.24 L Hgb 9.1 L Hct 28.0 L MCV 86.5 MCH 28.0 MCHC 32.3 RDW 19.8 H Plt Count 128 L MPV 10.2 Absolute Neuts (auto) 6.2 Neutrophils % 88.5 H Lymphocytes % 5.6 L D Monocytes % 5.7 Eosinophils % 0.0 D Basophils % 0.2 Nucleated RBC % 0 Sodium 142 Potassium 4.3 Chloride 111 H Carbon Dioxide 28 Anion Gap 3 L BUN 34 H Creatinine 0.9 Creat Clearance w eGFR > 60 Random Glucose 89 Calcium 7.9 L Phosphorus 3.8 Magnesium 2.2 Total Bilirubin 0.6 AST 20 ALT 31 Alkaline Phosphatase 45 Total Protein 4.7 L Albumin 2.2 L ASSESSMENT AND PLAN: Acute on Chronic Hypoxic Respiratory Failure Left Arm Hematoma Seizures Acute COPD Exacerbation LV Diastolic Dysfunction Atrial Fibrillation Acute on Chronic Renal Failure h/o CVA CAD HTN Hyperlipidemia - NC O2 as tolerated - monitor hematoma - continue antibiotics - Wean solumderol - inhaled bronchodilators - monitor urine output, creatinine - rate control - continue anticoagulation - DNR/DNI - Cardiac Telemetry monitoring Dr Alberto
--- NOTE | 2017-12-07 14:13 | PN ---
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, Physician History of Present Illness: Pt seen and examined at bedside. He is awake and alert. His oxygen requirements have improved. He denies chest pain or palpitations. - Current Medication List Current Medications: Active Medications Acetaminophen (Tylenol -) 650 mg PO Q6H PRN PRN Reason: FEVER Last Admin: 12/06/17 21:27 Dose: 650 mg Albuterol Sulfate (Ventolin 0.083% Nebulizer Soln -) 1 amp NEB Q6H PRN PRN Reason: SHORT OF BREATH/WHEEZING Apixaban (Eliquis -) 2.5 mg PO BID [facility] Last Admin: 12/07/17 09:12 Dose: 2.5 mg Atorvastatin Calcium (Lipitor -) 20 mg PO HS [facility] Last Admin: 12/06/17 21:27 Dose: 20 mg Budesonide/Formoterol Fumarate (Symbicort 160/4.5mcg -) 2 puff IH BID [facility] Last Admin: 12/06/17 21:28 Dose: 2 inhaler Chlorhexidine Gluconate (Hibiclens For Decolonization -) 1 applic TP HS [facility] Last Admin: 12/06/17 21:28 Dose: 1 applic Duloxetine HCl (Cymbalta -) 60 mg PO DAILY [facility] Last Admin: 12/07/17 09:11 Dose: 60 mg Fluocinonide (Lidex 0.05% Cream -) 1 applic TP DAILY [facility] Last Admin: 12/07/17 09:12 Dose: 1 applic Ceftriaxone Sodium 2 gm/ (Dextrose) 100 mls @ 200 mls/hr IVPB DAILY [facility]; Protocol Last Admin: 12/07/17 09:10 Dose: 200 mls/hr Isosorbide Dinitrate (Isordil -) 10 mg PO BIDISORDIL [facility] Last Admin: 12/07/17 09:12 Dose: 10 mg Levetiracetam (Keppra -) 250 mg PO BID [facility] Last Admin: 12/07/17 09:12 Dose: 250 mg Lisinopril (Prinivil) 10 mg PO DAILY [facility] Last Admin: 12/07/17 09:13 Dose: 10 mg Methylprednisolone Sodium Succinate (Solu-Medrol -) 40 mg IVPUSH BID [facility] Metoprolol Succinate (Toprol Xl -) 25 mg PO BID [facility] Last Admin: 12/07/17 09:13 Dose: 25 mg Morphine Sulfate (Morphine Sulfate) 4 mg IVPUSH Q6H PRN PRN Reason: PAIN LEVEL 7 - 10 Last Admin: 12/04/17 17:43 Dose: 4 mg Nystatin (Nystop Powder -) 1 applic TP DAILY [facility] Last Admin: 12/07/17 09:13 Dose: 1 applic Pantoprazole Sodium (Protonix -) 40 mg PO DAILY [facility] Last Admin: 12/07/17 09:14 Dose: 40 mg Pregabalin (Lyrica -) 100 mg PO TID [facility] Last Admin: 12/07/17 06:16 Dose: 100 mg Quetiapine Fumarate (Seroquel -) 12.5 mg PO HS [facility] Last Admin: 12/06/17 21:26 Dose: 12.5 mg Quetiapine Fumarate (Seroquel -) 12.5 mg PO AM PRN PRN Reason: ANXIETY Roflumilast (Daliresp -) 500 mcg PO DAILY [facility] Last Admin: 12/07/17 09:12 Dose: 500 mcg Tiotropium [place] (Spiriva Respimat) 2 puff IH DAILY [facility] Last Admin: 12/07/17 09:43 Dose: 2 puff - Objective Vital Signs: Vital Signs Temperature 98.2 F 12/07/17 02:00 Pulse Rate 62 12/07/17 08:31 Respiratory Rate 17 12/07/17 08:26 Blood Pressure 160/95 12/07/17 08:24 O2 Sat by Pulse Oximetry (%) 97 12/07/17 11:05 Constitutional: Yes: Calm, Poor Hygeine HENT: Yes: Atraumatic Cardiovascular: Yes: S1, S2 Respiratory: Yes: On Nasal O2 Gastrointestinal: Yes: Soft Genitourinary: Yes: WNL Edema: Yes Edema: LUE: 1+ Integumentary: Yes: Bruising Neurological: Yes: Oriented Psychiatric: Yes: Oriented Labs: CBC, BMP 12/07/17 05:10 12/07/17 05:10 INR, PTT INR 1.04 (0.83-1.09) 11/27/17 05:30 Problem List - Problems (1) Fall Code(s): W19.XXXA - UNSPECIFIED FALL, INITIAL ENCOUNTER Qualifiers: Encounter type: subsequent encounter Qualified Code(s): W19.XXXD - Unspecified fall, subsequent encounter (2) CAD (coronary artery disease) Code(s): I25.10 - ATHSCL HEART DISEASE OF [place] CORONARY ARTERY W/O ANG PCTRS Qualifiers: Coronary Disease-Associated Artery/Lesion type: [place] artery Associated angina: with stable angina (3) CHF (congestive heart failure) Code(s): I50.9 - HEART FAILURE, UNSPECIFIED (4) CKD (chronic kidney disease) Code(s): N18.9 - CHRONIC KIDNEY DISEASE, UNSPECIFIED Qualifiers: Chronic kidney disease stage: stage 3 (moderate) Qualified Code(s): N18.3 - Chronic kidney disease, stage 3 (moderate) Assessment/Plan Current Medications Generic Name Dose Route Start Last Admin Trade Name Freq PRN Reason Stop Dose Admin Acetaminophen 650 mg 12/03/17 18:52 12/06/17 21:27 Tylenol - PO 650 mg Q6H PRN Administration FEVER Albuterol Sulfate 1 amp 12/05/17 12:37 Ventolin 0.083% Nebulizer Soln - NEB Q6H PRN SHORT OF BREATH/WHEEZING Apixaban 2.5 mg 12/05/17 10:00 12/07/17 09:12 Eliquis - PO 2.5 mg BID DIANNE Administration Atorvastatin Calcium 20 mg 12/03/17 22:00 12/06/17 21:27 Lipitor - PO 20 mg HS DIANNE Administration Budesonide/Formoterol Fumarate 2 puff 12/04/17 22:00 12/06/17 21:28 Symbicort 160/4.5mcg - IH 2 inhaler BID DIANNE Administration Chlorhexidine Gluconate 1 applic 12/03/17 22:00 12/06/17 21:28 Hibiclens For Decolonization - TP 1 applic HS DIANNE Administration Duloxetine HCl 60 mg 12/04/17 10:00 12/07/17 09:11 Cymbalta - PO 60 mg DAILY DIANNE Administration Fluocinonide 1 applic 12/04/17 10:00 12/07/17 09:12 Lidex 0.05% Cream - TP 1 applic DAILY DIANNE Administration Ceftriaxone Sodium 2 gm/ 100 mls @ 200 mls/hr 12/04/17 10:00 12/07/17 09:10 Dextrose IVPB 200 mls/hr DAILY DIANNE Administration Protocol Isosorbide Dinitrate 10 mg 12/04/17 10:00 12/07/17 09:12 Isordil - PO 10 mg BIDISORDIL DIANNE Administration Levetiracetam 250 mg 12/03/17 22:00 12/07/17 09:12 Keppra - PO 250 mg BID DIANNE Administration Lisinopril 10 mg 12/04/17 10:00 12/07/17 09:13 Prinivil PO 10 mg DAILY DIANNE Administration Methylprednisolone Sodium Succinate 40 mg 12/07/17 22:00 Solu-Medrol - IVPUSH BID DIANNE Metoprolol Succinate 25 mg 12/03/17 22:00 12/07/17 09:13 Toprol Xl - PO 25 mg BID DIANNE Administration Morphine Sulfate 4 mg 12/03/17 18:52 12/04/17 17:43 Morphine Sulfate IVPUSH 4 mg Q6H PRN Administration PAIN LEVEL 7 - 10 Nystatin 1 applic 12/04/17 10:00 12/07/17 09:13 Nystop Powder - TP 1 applic DAILY DIANNE Administration Pantoprazole Sodium 40 mg 12/04/17 10:00 12/07/17 09:14 Protonix - PO 40 mg DAILY DIANNE Administration Pregabalin 100 mg 12/03/17 22:00 12/07/17 06:16 Lyrica - PO 100 mg TID DIANNE Administration Quetiapine Fumarate 12.5 mg 12/06/17 22:00 12/06/17 21:26 Seroquel - PO 12.5 mg HS DIANNE Administration Quetiapine Fumarate 12.5 mg 12/06/17 15:34 Seroquel - PO AM PRN ANXIETY Roflumilast 500 mcg 12/05/17 12:45 12/07/17 09:12 Daliresp - PO 500 mcg DAILY DIANNE Administration Tiotropium [place] 2 puff 12/05/17 12:45 12/07/17 09:43 Spiriva Respimat IH 2 puff DAILY DIANNE Administration Impression 1. CKD 2. COPD exacerbation 3. AAA 4. hx CVA 5. a-fib 6. HTN 7. insomnia 8. hypoxic resp failure 9. CAD 10. BPH 12. microscopic hematuria 13. hypoxia Plan - renal function stable - monitor bp - repeat labs in am - pt tolerating lisinopril - steroids with taper - cont oxygen - avoid nsaids - will follow
[2017-12-07] MEDS: BUDESONIDE/FORMETEROL FUMARATE 160/4.5 mcg INHALER IH SCH ×2 (14:40→22:02)
[2017-12-07] MEDS: ATORVASTATIN CA 20 MG TABLET (FP) PO SCH (22:00)
[2017-12-07] MEDS: QUEtiapine FUMARATE 25 MG TABLET (FP) PO SCH (22:01)
[2017-12-07] MEDS: CHLORHEXIDINE GLUCONATE 4% CLEANSER FOR DECOLONIZATION TP SCH (22:06)
[2017-12-07] MEDS: ACETAMINOPHEN 325 MG TABLET (FP) PO PRN (22:36)
[2017-12-08 05:46] LABS: BASO % 0.1 % (0-2.0); HEMATOCRIT 30.2 % (35.4-49); HEMOGLOBIN 9.6 GM/dL (11.7-16.9); LYMPH % 3.6 % (8-40); MCH 27.6 pg (25.7-33.7); MCHC 31.8 g/dl (32.0-35.9); MEAN CELL VOLUME 86.9 fl (80-96); MEAN PLT VOLUME 9.9 fl (7.5-11.1); MONO % 2.9 % (3.8-10.2); NEUT % 93.4 % (42.8-82.8); PLATELET COUNT 141 K/MM3 (134-434); RBC 3.47 M/mm3 (4.00-5.60); RDW 19.4 % (11.9-15.9); WHITE BLOOD COUNT 6.9 K/mm3 (4.0-10.0)
[2017-12-08 06:17] LABS: ALBUMIN 2.3 g/dl (3.4-5.0); ALK PHOS 47 U/L (45-117); ANION GAP 7 MMOL/L (8-16); BILIRUBIN,TOTAL 0.7 mg/dL (0.2-1.0); BLOOD UREA NITROGEN 30 mg/dL (7-18); CALCIUM 7.8 mg/dL (8.5-10.1); CHLORIDE 107 mmol/L (98-107); CO2 27 mmol/L (21-32); GLUCOSE,RANDOM 100 mg/dL (74-106); POTASSIUM 4.7 mmol/L (3.5-5.1); SGOT/AST 21 U/L (15-37); SGPT/ALT 32 U/L (13-61); SODIUM 141 mmol/L (136-145); TOT PROT 4.9 g/dl (6.4-8.2)
[2017-12-08] MEDS: PREGABALIN 100 MG CAPSULE PO SCH ×3 (06:23→22:16)
[2017-12-08] MEDS ORDERED: DEXTROSE 5%-WATER 100 ML IVPB ONE (09:29)
[2017-12-08] MEDS: CEFTRIAXONE 2 GM in DEXTROSE 5%-WATER 100 ML IVPB SCH (09:48)
[2017-12-08] MEDS: BUDESONIDE/FORMETEROL FUMARATE 160/4.5 mcg INHALER IH SCH ×2 (09:49→22:17)
[2017-12-08] MEDS: TIOTROPIUM BROMIDE 2.5 MCG (SPIRIVA) RESPIMAT INHALER IH SCH (09:49)
[2017-12-08] MEDS: ROFLUMILAST 500 MCG TABLET PO SCH (09:50)
[2017-12-08] MEDS: methylPREDNISolone NA SUCC 40 MG/1 ML VIAL IVPUSH SCH ×2 (09:50→22:14)
[2017-12-08] MEDS: LISINOPRIL 10 MG TABLET (FP) PO SCH (09:50)
[2017-12-08] MEDS: DULoxetine HCL 30 MG CAPSULE.DR (FP) PO SCH (09:50)
[2017-12-08] MEDS: APIXABAN 2.5 MG TABLET PO SCH ×2 (09:50→22:16)
[2017-12-08] MEDS: PANTOPRAZOLE 40 MG TABLET (FP) PO SCH (09:50)
[2017-12-08] MEDS: metoPROLOL SUCCINATE 25 MG TAB.SR.24H (FP) PO SCH ×2 (09:51→22:16)
[2017-12-08] MEDS: levETIRAcetam 250 MG TABLET (FP) PO SCH ×2 (09:51→22:16)
[2017-12-08] MEDS: ISOSORBIDE DINITRATE 10 MG TABLET (FP) PO SCH ×2 (09:51→17:48)
[2017-12-08] MEDS: NYSTATIN POWDER 100,000 UNITS/GM - 15 GM TOPICAL POWDER TP SCH (09:51)
[2017-12-08] MEDS: FLUOCINONIDE 0.05% CREAM (60 GM TUBE) TP SCH (09:51)
--- NOTE | 2017-12-08 10:01 | PN ---
Teaching Attending Note Name of Resident: Parris Roach ATTENDING PHYSICIAN STATEMENT I saw and evaluated the patient. I reviewed the resident's note and discussed the case with the resident. I agree with the resident's findings and plan as documented. SUBJECTIVE: Patient seen and examined in the ICU. Remains off HFNC O2. Comfortable on 3 L NC O2. Reports feeling overall better this AM. No CP. OBJECTIVE: Intake & Output 12/05/17 12/06/17 12/07/17 12/08/17 23:59 23:59 23:59 23:59 Intake Total 1090 610 750 200 Output Total 750 1050 1050 400 Balance 340 -440 -300 -200 Weight 156 lb 9 oz 161 lb 9 oz 158 lb 152 lb 14.4 oz Last Vital Signs Temp Pulse Resp BP Pulse Ox 98.5 F 66 14 145/92 97 12/08/17 06:00 12/08/17 08:39 12/08/17 08:52 12/08/17 08:39 12/08/17 08:52 Active Medications Acetaminophen (Tylenol -) 650 mg PO Q6H PRN PRN Reason: FEVER Last Admin: 12/07/17 22:36 Dose: 650 mg Albuterol Sulfate (Ventolin 0.083% Nebulizer Soln -) 1 amp NEB Q6H PRN PRN Reason: SHORT OF BREATH/WHEEZING Apixaban (Eliquis -) 2.5 mg PO BID [facility] Last Admin: 12/08/17 09:50 Dose: 2.5 mg Atorvastatin Calcium (Lipitor -) 20 mg PO HS [facility] Last Admin: 12/07/17 22:00 Dose: 20 mg Budesonide/Formoterol Fumarate (Symbicort 160/4.5mcg -) 2 puff IH BID [facility] Last Admin: 12/08/17 09:49 Dose: 2 inhaler Chlorhexidine Gluconate (Hibiclens For Decolonization -) 1 applic TP HS [facility] Last Admin: 12/07/17 22:06 Dose: 1 applic Duloxetine HCl (Cymbalta -) 60 mg PO DAILY [facility] Last Admin: 12/08/17 09:50 Dose: 60 mg Fluocinonide (Lidex 0.05% Cream -) 1 applic TP DAILY [facility] Last Admin: 12/08/17 09:51 Dose: 1 applic Ceftriaxone Sodium 2 gm/ (Dextrose) 100 mls @ 200 mls/hr IVPB DAILY [facility]; Protocol Last Admin: 12/08/17 09:48 Dose: 200 mls/hr Isosorbide Dinitrate (Isordil -) 10 mg PO BIDISORDIL [facility] Last Admin: 12/08/17 09:51 Dose: 10 mg Levetiracetam (Keppra -) 250 mg PO BID [facility] Last Admin: 12/08/17 09:51 Dose: 250 mg Lisinopril (Prinivil) 10 mg PO DAILY [facility] Last Admin: 12/08/17 09:50 Dose: 10 mg Methylprednisolone Sodium Succinate (Solu-Medrol -) 40 mg IVPUSH BID [facility] Last Admin: 12/08/17 09:50 Dose: 40 mg Metoprolol Succinate (Toprol Xl -) 25 mg PO BID [facility] Last Admin: 12/08/17 09:51 Dose: 25 mg Morphine Sulfate (Morphine Sulfate) 4 mg IVPUSH Q6H PRN PRN Reason: PAIN LEVEL 7 - 10 Last Admin: 12/04/17 17:43 Dose: 4 mg Nystatin (Nystop Powder -) 1 applic TP DAILY [facility] Last Admin: 12/08/17 09:51 Dose: 1 applic Pantoprazole Sodium (Protonix -) 40 mg PO DAILY [facility] Last Admin: 12/08/17 09:50 Dose: 40 mg Pregabalin (Lyrica -) 100 mg PO TID [facility] Last Admin: 12/08/17 06:23 Dose: 100 mg Quetiapine Fumarate (Seroquel -) 12.5 mg PO HS [facility] Last Admin: 12/07/17 22:01 Dose: 12.5 mg Quetiapine Fumarate (Seroquel -) 12.5 mg PO AM PRN PRN Reason: ANXIETY Roflumilast (Daliresp -) 500 mcg PO DAILY [facility] Last Admin: 12/08/17 09:50 Dose: 500 mcg Tiotropium [place] (Spiriva Respimat) 2 puff IH DAILY [facility] Last Admin: 12/08/17 09:49 Dose: 2 puff Gen: More comfortable, NAD Heart: irregular Lung: distant breath sounds, few scattered rhonchi Abd: soft, nontender Ext: left arm hematoma Laboratory Results - last 24 hr 12/08/17 12/08/17 05:15 05:15 WBC 6.9 RBC 3.47 L Hgb 9.6 L Hct 30.2 L MCV 86.9 MCH 27.6 MCHC 31.8 L RDW 19.4 H Plt Count 141 MPV 9.9 Absolute Neuts (auto) 6.4 Neutrophils % 93.4 H Lymphocytes % 3.6 L D Monocytes % 2.9 L Eosinophils % 0.0 Basophils % 0.1 Nucleated RBC % 0 Sodium 141 Potassium 4.7 Chloride 107 Carbon Dioxide 27 Anion Gap 7 L BUN 30 H Creatinine 1.0 Creat Clearance w eGFR > 60 Random Glucose 100 Calcium 7.8 L Total Bilirubin 0.7 AST 21 ALT 32 Alkaline Phosphatase 47 Total Protein 4.9 L Albumin 2.3 L ASSESSMENT AND PLAN: Acute on Chronic Hypoxic Respiratory Failure Left Arm Hematoma Seizures Acute COPD Exacerbation LV Diastolic Dysfunction Atrial Fibrillation Acute on Chronic Renal Failure h/o CVA CAD HTN Hyperlipidemia - NC O2 as tolerated - monitor hematoma - continue antibiotics - Wean solumderol - inhaled bronchodilators - monitor urine output, creatinine - rate control - continue anticoagulation - DNR/DNI - Try to obtain peripheral access and then D/C TLC - Cardiac Telemetry monitoring Dr Alberto
[2017-12-08 10:27] LABS: PLATELET ESTIMATE ADEQUATE
--- NOTE | 2017-12-08 11:19 | PN ---
Physical Exam: SUBJECTIVE: Patient seen and examined at bedside. Overnight, sat well in 90's on 5L. Today, states that his breathing feels better. Without complaint. Today in AM, on 3L, however with desat episodes into low 80's thus started on 50 % high flow. Denies BORJAS, fever, chills, SOB, or changes in urinary or bowel function. OBJECTIVE: -R IJ removed today (12/08/17) Vital Signs Period Temp Pulse Resp BP Sys/Varghese Pulse Ox Last 24 Hr 97.9 F-98.6 F 60-89 14-20 112-147/82-100 95-98 GENERAL: The patient is on 50% high flow. awake, alert, and fully oriented, in no acute distress. HEAD: Normal with no signs of trauma. EYES: PERRL, extraocular movements intact, sclera anicteric, conjunctiva clear. ENT: Ears normal, nares patent, oropharynx clear without exudates, moist mucous membranes. NECK: Trachea midline, full range of motion, supple. LUNGS: +scattered rhonchi, no accessory m usage HEART: Regular rate and rhythm, S1, S2 without murmur, rub or gallop. ABDOMEN: Soft, nontender, nondistended, normoactive bowel sounds, no guarding EXTREMITIES: 2+ pt pulses, warm, well-perfused, no edema. LUE - wrapped NEUROLOGICAL: Cranial nerves II through XII grossly intact. Normal speech PSYCH: Normal mood, normal affect. SKIN: Warm, dry, normal turgor. Laboratory Results - last 24 hr 12/08/17 12/08/17 05:15 05:15 WBC 6.9 RBC 3.47 L Hgb 9.6 L Hct 30.2 L MCV 86.9 MCH 27.6 MCHC 31.8 L RDW 19.4 H Plt Count 141 MPV 9.9 Absolute Neuts (auto) 6.4 Neutrophils % 93.4 H Neutrophils % (Manual) 95.0 H Lymphocytes % 3.6 L D Lymphocytes % (Manual) 3.0 L D Monocytes % 2.9 L Monocytes % (Manual) 1 L D Eosinophils % 0.0 Eosinophils % (Manual) 0.0 Basophils % 0.1 Myelocytes % (Man) 1 D Nucleated RBC % 0 Platelet Estimate Adequate Sodium 141 Potassium 4.7 Chloride 107 Carbon Dioxide 27 Anion Gap 7 L BUN 30 H Creatinine 1.0 Creat Clearance w eGFR > 60 Random Glucose 100 Calcium 7.8 L Total Bilirubin 0.7 AST 21 ALT 32 Alkaline Phosphatase 47 Total Protein 4.9 L Albumin 2.3 L Active Medications Generic Name Dose Route Start Last Admin Trade Name Freq PRN Reason Stop Dose Admin Acetaminophen 650 mg 12/03/17 18:52 12/07/17 22:36 Tylenol - PO 650 mg Q6H PRN Administration FEVER Albuterol Sulfate 1 amp 12/05/17 12:37 Ventolin 0.083% Nebulizer Soln - NEB Q6H PRN SHORT OF BREATH/WHEEZING Apixaban 2.5 mg 12/05/17 10:00 12/08/17 09:50 Eliquis - PO 2.5 mg BID DIANNE Administration Atorvastatin Calcium 20 mg 12/03/17 22:00 12/07/17 22:00 Lipitor - PO 20 mg HS DIANNE Administration Budesonide/Formoterol Fumarate 2 puff 12/04/17 22:00 12/08/17 09:49 Symbicort 160/4.5mcg - IH 2 inhaler BID DIANNE Administration Chlorhexidine Gluconate 1 applic 12/03/17 22:00 12/07/17 22:06 Hibiclens For Decolonization - TP 1 applic HS DIANNE Administration Duloxetine HCl 60 mg 12/04/17 10:00 12/08/17 09:50 Cymbalta - PO 60 mg DAILY DIANNE Administration Fluocinonide 1 applic 12/04/17 10:00 12/08/17 09:51 Lidex 0.05% Cream - TP 1 applic DAILY [facility] Administration Ceftriaxone Sodium 2 gm/ 100 mls @ 200 mls/hr 12/04/17 10:00 12/08/17 09:48 Dextrose IVPB 200 mls/hr DAILY [facility] Administration Protocol Isosorbide Dinitrate 10 mg 12/04/17 10:00 12/08/17 09:51 Isordil - PO 10 mg BIDISORDIL DIANNE Administration Levetiracetam 250 mg 12/03/17 22:00 12/08/17 09:51 Keppra - PO 250 mg BID DIANNE Administration Lisinopril 10 mg 12/04/17 10:00 12/08/17 09:50 Prinivil PO 10 mg DAILY [facility] Administration Methylprednisolone Sodium Succinate 40 mg 12/07/17 22:00 12/08/17 09:50 Solu-Medrol - IVPUSH 40 mg BID DIANNE Administration Metoprolol Succinate 25 mg 12/03/17 22:00 12/08/17 09:51 Toprol Xl - PO 25 mg BID DIANNE Administration Nystatin 1 applic 12/04/17 10:00 12/08/17 09:51 Nystop Powder - TP 1 applic DAILY [facility] Administration Pantoprazole Sodium 40 mg 12/04/17 10:00 12/08/17 09:50 Protonix - PO 40 mg DAILY [facility] Administration Pregabalin 100 mg 12/03/17 22:00 12/08/17 06:23 Lyrica - PO 100 mg TID DIANNE Administration Quetiapine Fumarate 12.5 mg 12/06/17 22:00 12/07/17 22:01 Seroquel - PO 12.5 mg HS DIANNE Administration Quetiapine Fumarate 12.5 mg 12/06/17 15:34 Seroquel - PO AM PRN ANXIETY Roflumilast 500 mcg 12/05/17 12:45 12/08/17 09:50 Daliresp - PO 500 mcg DAILY [facility] Administration Tiotropium [place] 2 puff 12/05/17 12:45 12/08/17 09:49 Spiriva Respimat IH 2 puff DAILY [facility] Administration ASSESSMENT/PLAN: 77 y/o M with PMH afib, HTN, HLD, CAD, COPD, DM, PAD, AAA admitted to ICU for acute hypoxic respiratory failure due to COPD exacerbation. #Pulmonary Acute on chronic hypoxic respiratory failure due to COPD exacerbation -Goal 02 sat 88-92 % -on 3L NC this AM, however currently on 50% high flow d/t desat episodes -Solumedrol 40 mg IV q12h. can adjust tomorrow if improves -continue albuterol q4h, Symbicort BID, [place] 500 mcg PO qd, Spiriva 2 puff IH BID #Cardiology Hypotension due to volume depletion- improved -Central line placed 12/02, removed 12/08/17 -Peripheral access- ALLAN Clark - continue metoprolol 25 mg po BID - Eliquis 2.5 mg PO BID a/c CAD/HTN - aspirin 81 mg po daily - Isosorbide dinitrate 10 mg PO qd, Lisinopril 10 mg PO qd, metoprolol succinate 25mg PO BID - lipitor 20 mg po qHS - ECHO inadequate study Tropinemia -likely demand, resolved #Neurology Seizure like activity/ vs fall, no more seizures in ICU - cont Keppra 250 mg po BID - head CT: no acute pathology #Psychiatry - continue with Duloxetine 60mg PO qd, Ativan 1mg IM Q 8hrs PRN, Quetiapine 1.5mg PO qHS #Renal -Furosemide 20 mg po daily held -avoid nephrotoxins #MSK Hematoma of LUE, s/p fall - UE doppler: no evidence or arterial dissection or aneurysm , superficial hematoma in LUE - per vascular and surgery no evidence of compartment syndrome - CBC stable, resumed anticoagulation - continue PT #ID -Streptococcus Mitis bacteremia -cont Rocephin 2g IVPB qd (Day 11) -f/u with ID concerning abx duration #GI - protonix 40 mg po qd # BPH - cont tamsulosin 0.4 mg PO qd, has been using urinal #Endocrine pre- DMII - cont Lyrica 100 mg po TID - A1C: 6.0 #DVT ppx -on eliquis #F/E/N -currently not on fluids -continue to follow lytes -diabetic/low sodium diet/ no fluids #code status DNR/DNI Dispo: for transfer to tele Visit type - Emergency Visit Emergency Visit: No - New Patient This patient is new to me today: No - Critical Care Critical Care patient: Yes Total Critical Care Time (in minutes): 41 Critical Care Statement: The care of this patient involved high complexity decision making to prevent further life threatening deterioration of the patient 's condition and/or to evaluate & treat vital organ system(s) failure or risk of failure.
[2017-12-08] MEDS ORDERED: PT OWN MED DRAWER 7, Y5N ONE ×2 (12:09→20:27)
[2017-12-08 14:51] VITALS: BMI 23.8
--- NOTE | 2017-12-08 15:18 | PN ---
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, Physician History of Present Illness: Pt seen and examined at bedside. He is awake and alert. His ozygen requirements have worsened. - Current Medication List Current Medications: Active Medications Acetaminophen (Tylenol -) 650 mg PO Q6H PRN PRN Reason: FEVER Last Admin: 12/07/17 22:36 Dose: 650 mg Albuterol Sulfate (Ventolin 0.083% Nebulizer Soln -) 1 amp NEB Q6H PRN PRN Reason: SHORT OF BREATH/WHEEZING Apixaban (Eliquis -) 2.5 mg PO BID [facility] Last Admin: 12/08/17 09:50 Dose: 2.5 mg Atorvastatin Calcium (Lipitor -) 20 mg PO HS [facility] Last Admin: 12/07/17 22:00 Dose: 20 mg Budesonide/Formoterol Fumarate (Symbicort 160/4.5mcg -) 2 puff IH BID [facility] Last Admin: 12/08/17 09:49 Dose: 2 inhaler Chlorhexidine Gluconate (Hibiclens For Decolonization -) 1 applic TP HS [facility] Last Admin: 12/07/17 22:06 Dose: 1 applic Duloxetine HCl (Cymbalta -) 60 mg PO DAILY [facility] Last Admin: 12/08/17 09:50 Dose: 60 mg Fluocinonide (Lidex 0.05% Cream -) 1 applic TP DAILY [facility] Last Admin: 12/08/17 09:51 Dose: 1 applic Ceftriaxone Sodium 2 gm/ (Dextrose) 100 mls @ 200 mls/hr IVPB DAILY [facility]; Protocol Last Admin: 12/08/17 09:48 Dose: 200 mls/hr Isosorbide Dinitrate (Isordil -) 10 mg PO BIDISORDIL [facility] Last Admin: 12/08/17 09:51 Dose: 10 mg Levetiracetam (Keppra -) 250 mg PO BID [facility] Last Admin: 12/08/17 09:51 Dose: 250 mg Lisinopril (Prinivil) 10 mg PO DAILY [facility] Last Admin: 12/08/17 09:50 Dose: 10 mg Methylprednisolone Sodium Succinate (Solu-Medrol -) 40 mg IVPUSH BID [facility] Last Admin: 12/08/17 09:50 Dose: 40 mg Metoprolol Succinate (Toprol Xl -) 25 mg PO BID [facility] Last Admin: 09/16/18 09:51 Dose: 25 mg Nystatin (Nystop Powder -) 1 applic TP DAILY [facility] Last Admin: 12/08/17 09:51 Dose: 1 applic Pantoprazole Sodium (Protonix -) 40 mg PO DAILY [facility] Last Admin: 12/08/17 09:50 Dose: 40 mg Pregabalin (Lyrica -) 100 mg PO TID [facility] Last Admin: 12/08/17 13:31 Dose: 100 mg Quetiapine Fumarate (Seroquel -) 12.5 mg PO HS [facility] Last Admin: 12/07/17 22:01 Dose: 12.5 mg Quetiapine Fumarate (Seroquel -) 12.5 mg PO AM PRN PRN Reason: ANXIETY Roflumilast (Daliresp -) 500 mcg PO DAILY [facility] Last Admin: 12/08/17 09:50 Dose: 500 mcg Tiotropium [place] (Spiriva Respimat) 2 puff IH DAILY [facility] Last Admin: 12/08/17 09:49 Dose: 2 puff - Objective Vital Signs: Vital Signs Temperature 98.2 F 12/08/17 10:00 Pulse Rate 87 12/08/17 14:32 Respiratory Rate 21 12/08/17 14:00 Blood Pressure 125/94 12/08/17 14:00 O2 Sat by Pulse Oximetry (%) 95 12/08/17 14:32 Constitutional: Yes: Calm Eyes: Yes: Conjunctiva Clear HENT: Yes: Atraumatic Cardiovascular: Yes: S1, S2 Respiratory: Yes: On Nasal O2 Gastrointestinal: Yes: Soft Genitourinary: Yes: WNL Musculoskeletal: Yes: WNL Edema: Yes Edema: LUE: 1+ Neurological: Yes: Oriented Psychiatric: Yes: Oriented Labs: CBC, BMP 12/08/17 05:15 12/08/17 05:15 INR, PTT INR 1.04 (0.83-1.09) 11/27/17 05:30 Problem List - Problems (1) Fall Code(s): W19.XXXA - UNSPECIFIED FALL, INITIAL ENCOUNTER Qualifiers: Qualified Code(s): W19.XXXD - Unspecified fall, subsequent encounter (2) CAD (coronary artery disease) Code(s): I25.10 - ATHSCL HEART DISEASE OF [place] CORONARY ARTERY W/O ANG PCTRS (3) CHF (congestive heart failure) Code(s): I50.9 - HEART FAILURE, UNSPECIFIED (4) CKD (chronic kidney disease) Code(s): N18.9 - CHRONIC KIDNEY DISEASE, UNSPECIFIED Qualifiers: Qualified Code(s): N18.3 - Chronic kidney disease, stage 3 (moderate) Assessment/Plan Current Medications Generic Name Dose Route Start Last Admin Trade Name Freq PRN Reason Stop Dose Admin Acetaminophen 650 mg 12/03/17 18:52 12/07/17 22:36 Tylenol - PO 650 mg Q6H PRN Administration FEVER Albuterol Sulfate 1 amp 12/05/17 12:37 Ventolin 0.083% Nebulizer Soln - NEB Q6H PRN SHORT OF BREATH/WHEEZING Apixaban 2.5 mg 12/05/17 10:00 12/08/17 09:50 Eliquis - PO 2.5 mg BID DIANNE Administration Atorvastatin Calcium 20 mg 12/03/17 22:00 12/07/17 22:00 Lipitor - PO 20 mg HS DIANNE Administration Budesonide/Formoterol Fumarate 2 puff 12/04/17 22:00 12/08/17 09:49 Symbicort 160/4.5mcg - IH 2 inhaler BID DIANNE Administration Chlorhexidine Gluconate 1 applic 12/03/17 22:00 12/07/17 22:06 Hibiclens For Decolonization - TP 1 applic HS DIANNE Administration Duloxetine HCl 60 mg 12/04/17 10:00 12/08/17 09:50 Cymbalta - PO 60 mg DAILY DIANNE Administration Fluocinonide 1 applic 12/04/17 10:00 12/08/17 09:51 Lidex 0.05% Cream - TP 1 applic DAILY [facility] Administration Ceftriaxone Sodium 2 gm/ 100 mls @ 200 mls/hr 12/04/17 10:00 12/08/17 09:48 Dextrose IVPB 200 mls/hr DAILY [facility] Administration Protocol Isosorbide Dinitrate 10 mg 12/04/17 10:00 12/08/17 09:51 Isordil - PO 10 mg BIDISORDIL DIANNE Administration Levetiracetam 250 mg 12/03/17 22:00 12/08/17 09:51 Keppra - PO 250 mg BID DIANNE Administration Lisinopril 10 mg 12/04/17 10:00 12/08/17 09:50 Prinivil PO 10 mg DAILY DI[facility] Administration Methylprednisolone Sodium Succinate 40 mg 12/07/17 22:00 12/08/17 09:50 Solu-Medrol - IVPUSH 40 mg BID DIANNE Administration Metoprolol Succinate 25 mg 12/03/17 22:00 12/08/17 09:51 Toprol Xl - PO 25 mg BID DIANNE Administration Nystatin 1 applic 12/04/17 10:00 12/08/17 09:51 Nystop Powder - TP 1 applic DAILY DIANNE Administration Pantoprazole Sodium 40 mg 12/04/17 10:00 12/08/17 09:50 Protonix - PO 40 mg DAILY DIANNE Administration Pregabalin 100 mg 12/03/17 22:00 12/08/17 13:31 Lyrica - PO 100 mg TID DIANNE Administration Quetiapine Fumarate 12.5 mg 12/06/17 22:00 12/07/17 22:01 Seroquel - PO 12.5 mg HS DIANNE Administration Quetiapine Fumarate 12.5 mg 12/06/17 15:34 Seroquel - PO AM PRN ANXIETY Roflumilast 500 mcg 12/05/17 12:45 12/08/17 09:50 Daliresp - PO 500 mcg DAILY DIANNE Administration Tiotropium [place] 2 puff 12/05/17 12:45 12/08/17 09:49 Spiriva Respimat IH 2 puff DAILY DIANNE Administration Impression 1. CKD 2. COPD exacerbation 3. AAA 4. hx CVA 5. a-fib 6. HTN 7. insomnia 8. hypoxic resp failure 9. CAD 10. BPH 12. microscopic hematuria 13. hypoxia Plan - discussed with ICU team - get cxr - consider restarting lasix at 20 mg daily - repeat labs in am - pt tolerating lisinopril - steroids with taper - cont oxygen - avoid nsaids - will follow
--- NOTE | 2017-12-08 18:23 | PN ---
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, Physician Chief Complaint: MORE AWAKE CALM ON NC - Current Medication List Current Medications: Active Medications Acetaminophen (Tylenol -) 650 mg PO Q6H PRN PRN Reason: FEVER Last Admin: 12/07/17 22:36 Dose: 650 mg Albuterol Sulfate (Ventolin 0.083% Nebulizer Soln -) 1 amp NEB Q6H PRN PRN Reason: SHORT OF BREATH/WHEEZING Apixaban (Eliquis -) 2.5 mg PO BID [facility] Last Admin: 12/08/17 09:50 Dose: 2.5 mg Atorvastatin Calcium (Lipitor -) 20 mg PO HS [facility] Last Admin: 12/07/17 22:00 Dose: 20 mg Budesonide/Formoterol Fumarate (Symbicort 160/4.5mcg -) 2 puff IH BID [facility] Last Admin: 12/08/17 09:49 Dose: 2 inhaler Chlorhexidine Gluconate (Hibiclens For Decolonization -) 1 applic TP HS [facility] Last Admin: 12/07/17 22:06 Dose: 1 applic Duloxetine HCl (Cymbalta -) 60 mg PO DAILY [facility] Last Admin: 12/08/17 09:50 Dose: 60 mg Fluocinonide (Lidex 0.05% Cream -) 1 applic TP DAILY [facility] Last Admin: 12/08/17 09:51 Dose: 1 applic Ceftriaxone Sodium 2 gm/ (Dextrose) 100 mls @ 200 mls/hr IVPB DAILY [facility]; Protocol Last Admin: 12/08/17 09:48 Dose: 200 mls/hr Isosorbide Dinitrate (Isordil -) 10 mg PO BIDISORDIL [facility] Last Admin: 12/08/17 17:48 Dose: 10 mg Levetiracetam (Keppra -) 250 mg PO BID [facility] Last Admin: 12/08/17 09:51 Dose: 250 mg Lisinopril (Prinivil) 10 mg PO DAILY [facility] Last Admin: 12/08/17 09:50 Dose: 10 mg Methylprednisolone Sodium Succinate (Solu-Medrol -) 40 mg IVPUSH BID [facility] Last Admin: 12/08/17 09:50 Dose: 40 mg Metoprolol Succinate (Toprol Xl -) 25 mg PO BID [facility] Last Admin: 12/08/17 09:51 Dose: 25 mg Nystatin (Nystop Powder -) 1 applic TP DAILY [facility] Last Admin: 12/08/17 09:51 Dose: 1 applic Pantoprazole Sodium (Protonix -) 40 mg PO DAILY [facility] Last Admin: 12/08/17 09:50 Dose: 40 mg Pregabalin (Lyrica -) 100 mg PO TID [facility] Last Admin: 12/08/17 13:31 Dose: 100 mg Quetiapine Fumarate (Seroquel -) 12.5 mg PO HS [facility] Last Admin: 12/07/17 22:01 Dose: 12.5 mg Quetiapine Fumarate (Seroquel -) 12.5 mg PO AM PRN PRN Reason: ANXIETY Roflumilast (Daliresp -) 500 mcg PO DAILY [facility] Last Admin: 12/08/17 09:50 Dose: 500 mcg Tiotropium [place] (Spiriva Respimat) 2 puff IH DAILY [facility] Last Admin: 12/08/17 09:49 Dose: 2 puff - Objective Vital Signs: Vital Signs Temperature 98.4 F 12/08/17 16:00 Pulse Rate 76 12/08/17 16:00 Respiratory Rate 19 12/08/17 16:00 Blood Pressure 112/82 12/08/17 16:00 O2 Sat by Pulse Oximetry (%) 95 12/08/17 14:32 Constitutional: Yes: Mild Distress Eyes: Yes: WNL HENT: Yes: WNL Neck: Yes: WNL Cardiovascular: Yes: Pulse Irregular Respiratory: Yes: Diminished, On Nasal O2 Gastrointestinal: Yes: WNL Genitourinary: Yes: Incontinence Musculoskeletal: Yes: Muscle Weakness Edema: Yes Edema: LLE: 1+, RLE: 1+ Integumentary: Yes: Venous Stasis Changes Wound/Incision: Yes: Dressing Dry and Intact Neurological: Yes: Pre-Existing Deficit ...Motor Strength: LLE, RLE Psychiatric: Yes: Other Labs: CBC, BMP 12/08/17 05:15 12/08/17 05:15 INR, PTT INR 1.04 (0.83-1.09) 11/27/17 05:30 Problem List - Problems (1) Bacteremia Code(s): R78.81 - BACTEREMIA (2) Cardiomyopathy Code(s): I42.9 - CARDIOMYOPATHY, UNSPECIFIED Qualifiers: Cardiomyopathy type: ischemic Qualified Code(s): I25.5 - Ischemic cardiomyopathy (3) Chronic respiratory failure with hypoxia Code(s): J96.11 - CHRONIC RESPIRATORY FAILURE WITH HYPOXIA (4) History of aortic aneurysm repair Code(s): Z98.890 - OTHER SPECIFIED POSTPROCEDURAL STATES; Z86.79 - PERSONAL HISTORY OF OTHER DISEASES OF THE CIRCULATORY SYSTEM (5) History of arterial bypass of lower extremity Code(s): Z95.828 - PRESENCE OF OTHER VASCULAR IMPLANTS AND GRAFTS (6) SOB (shortness of breath) Code(s): R06.02 - SHORTNESS OF BREATH (7) Tachycardia Code(s): R00.0 - TACHYCARDIA, UNSPECIFIED (8) CAD (coronary artery disease) Code(s): I25.10 - ATHSCL HEART DISEASE OF [place] CORONARY ARTERY W/O ANG PCTRS Qualifiers: Coronary Disease-Associated Artery/Lesion type: [place] artery (9) History of permanent cardiac pacemaker placement Code(s): Z95.0 - PRESENCE OF CARDIAC PACEMAKER Assessment/Plan SEROQUEL HS 12.5MG NEBS STEROIDS 02 SUPPORT OOB TO CHAIR SNF PLACEMENT
[2017-12-08] MEDS: QUEtiapine FUMARATE 25 MG TABLET (FP) PO SCH (22:14)
[2017-12-08] MEDS: ACETAMINOPHEN 325 MG TABLET (FP) PO PRN (22:15)
[2017-12-08] MEDS: ATORVASTATIN CA 20 MG TABLET (FP) PO SCH (22:16)
[2017-12-08] MEDS: CHLORHEXIDINE GLUCONATE 4% CLEANSER FOR DECOLONIZATION TP SCH (22:17)
[2017-12-09] MEDS: PREGABALIN 100 MG CAPSULE PO SCH ×3 (05:40→21:28)
[2017-12-09 05:46] LABS: BASO % 0.2 % (0-2.0); HEMATOCRIT 31.6 % (35.4-49); HEMOGLOBIN 10.3 GM/dL (11.7-16.9); LYMPH % 4.6 % (8-40); MCH 28.4 pg (25.7-33.7); MCHC 32.7 g/dl (32.0-35.9); MEAN CELL VOLUME 86.9 fl (80-96); MEAN PLT VOLUME 10.1 fl (7.5-11.1); MONO % 3.7 % (3.8-10.2); NEUT % 91.5 % (42.8-82.8); PLATELET COUNT 152 K/MM3 (134-434); RBC 3.63 M/mm3 (4.00-5.60); RDW 19.6 % (11.9-15.9); WHITE BLOOD COUNT 5.3 K/mm3 (4.0-10.0)
[2017-12-09 06:00] LABS: ANION GAP 6 MMOL/L (8-16); BLOOD UREA NITROGEN 31 mg/dL (7-18); CALCIUM 7.9 mg/dL (8.5-10.1); CHLORIDE 107 mmol/L (98-107); CO2 28 mmol/L (21-32); GLUCOSE,RANDOM 107 mg/dL (74-106); MAGNESIUM 2.3 mg/dL (1.8-2.4); PHOSPHOROUS 4.1 mg/dL (2.5-4.9); POTASSIUM 5.6 mmol/L (3.5-5.1); SODIUM 141 mmol/L (136-145)
[2017-12-09 06:24] LABS: ANISOCYTOSIS 1+; PLATELET ESTIMATE ADEQUATE
--- NOTE | 2017-12-09 08:59 | PN ---
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, Physician - Current Medication List Current Medications: Active Medications Acetaminophen (Tylenol -) 650 mg PO Q6H PRN PRN Reason: FEVER Last Admin: 12/08/17 22:15 Dose: 650 mg Albuterol Sulfate (Ventolin 0.083% Nebulizer Soln -) 1 amp NEB Q6H PRN PRN Reason: SHORT OF BREATH/WHEEZING Apixaban (Eliquis -) 2.5 mg PO BID [facility] Last Admin: 12/08/17 22:16 Dose: 2.5 mg Atorvastatin Calcium (Lipitor -) 20 mg PO HS [facility] Last Admin: 12/08/17 22:16 Dose: 20 mg Budesonide/Formoterol Fumarate (Symbicort 160/4.5mcg -) 2 puff IH BID [facility] Last Admin: 12/08/17 22:17 Dose: 2 inhaler Chlorhexidine Gluconate (Hibiclens For Decolonization -) 1 applic TP HS [facility] Last Admin: 12/08/17 22:17 Dose: 1 applic Duloxetine HCl (Cymbalta -) 60 mg PO DAILY [facility] Last Admin: 12/08/17 09:50 Dose: 60 mg Fluocinonide (Lidex 0.05% Cream -) 1 applic TP DAILY [facility] Last Admin: 12/08/17 09:51 Dose: 1 applic Ceftriaxone Sodium 2 gm/ (Dextrose) 100 mls @ 200 mls/hr IVPB DAILY [facility]; Protocol Last Admin: 12/08/17 09:48 Dose: 200 mls/hr Isosorbide Dinitrate (Isordil -) 10 mg PO BIDISORDIL [facility] Last Admin: 12/08/17 17:48 Dose: 10 mg Levetiracetam (Keppra -) 250 mg PO BID [facility] Last Admin: 12/08/17 22:16 Dose: 250 mg Lisinopril (Prinivil) 10 mg PO DAILY [facility] Last Admin: 12/08/17 09:50 Dose: 10 mg Methylprednisolone Sodium Succinate (Solu-Medrol -) 40 mg IVPUSH BID [facility] Last Admin: 12/08/17 22:14 Dose: 40 mg Metoprolol Succinate (Toprol Xl -) 25 mg PO BID [facility] Last Admin: 12/08/17 22:16 Dose: 25 mg Nystatin (Nystop Powder -) 1 applic TP DAILY [facility] Last Admin: 12/08/17 09:51 Dose: 1 applic Pantoprazole Sodium (Protonix -) 40 mg PO DAILY [facility] Last Admin: 12/08/17 09:50 Dose: 40 mg Pregabalin (Lyrica -) 100 mg PO TID [facility] Last Admin: 12/09/17 05:40 Dose: 100 mg Quetiapine Fumarate (Seroquel -) 12.5 mg PO HS [facility] Last Admin: 12/08/17 22:14 Dose: 12.5 mg Quetiapine Fumarate (Seroquel -) 12.5 mg PO AM PRN PRN Reason: ANXIETY Roflumilast (Daliresp -) 500 mcg PO DAILY [facility] Last Admin: 12/08/17 09:50 Dose: 500 mcg Tiotropium [place] (Spiriva Respimat) 2 puff IH DAILY [facility] Last Admin: 12/08/17 09:49 Dose: 2 puff - Objective Vital Signs: Vital Signs Temperature 97.6 F 12/09/17 07:48 Pulse Rate 63 12/09/17 08:04 Respiratory Rate 16 12/09/17 08:03 Blood Pressure 117/87 12/09/17 07:48 O2 Sat by Pulse Oximetry (%) 93 L 12/09/17 08:04 Labs: CBC, BMP 12/09/17 05:20 12/09/17 07:25 INR, PTT INR 1.04 (0.83-1.09) 11/27/17 05:30 Problem List - Problems (1) Bacteremia Code(s): R78.81 - BACTEREMIA (2) Cardiomyopathy Code(s): I42.9 - CARDIOMYOPATHY, UNSPECIFIED Qualifiers: Cardiomyopathy type: ischemic Qualified Code(s): I25.5 - Ischemic cardiomyopathy (3) Chronic respiratory failure with hypoxia Code(s): J96.11 - CHRONIC RESPIRATORY FAILURE WITH HYPOXIA (4) History of aortic aneurysm repair Code(s): Z98.890 - OTHER SPECIFIED POSTPROCEDURAL STATES; Z86.79 - PERSONAL HISTORY OF OTHER DISEASES OF THE CIRCULATORY SYSTEM (5) History of arterial bypass of lower extremity Code(s): Z95.828 - PRESENCE OF OTHER VASCULAR IMPLANTS AND GRAFTS (6) SOB (shortness of breath) Code(s): R06.02 - SHORTNESS OF BREATH (7) Tachycardia Code(s): R00.0 - TACHYCARDIA, UNSPECIFIED (8) CAD (coronary artery disease) Code(s): I25.10 - ATHSCL HEART DISEASE OF [place] CORONARY ARTERY W/O ANG PCTRS Qualifiers: Coronary Disease-Associated Artery/Lesion type: [place] artery (9) History of permanent cardiac pacemaker placement Code(s): Z95.0 - PRESENCE OF CARDIAC PACEMAKER
--- NOTE | 2017-12-09 09:12 | PN ---
Physical Exam: SUBJECTIVE: Patient is a 77 y/o male with a history of afib, HTN, HLD, CAD, COPD, DM, PAD, AAA who is here for acute hypoxic respiratory failure 2/2 to COPD exacerbation. Patient continues to have sporadic episodes of desaturating. Currently on 4L NC and tolerating. OBJECTIVE: Vital Signs Temperature 97.6 F 12/09/17 08:00 Pulse Rate 63 12/09/17 08:04 Respiratory Rate 16 12/09/17 08:03 Blood Pressure 117/87 12/09/17 08:00 O2 Sat by Pulse Oximetry (%) 93 L 12/09/17 08:04 GENERAL: Awake and alert EYES: Pupils equal, round and reactive to light, extraocular movements intact EARS, NOSE, THROAT: Ears normal, nares patent, oropharynx clear without exudates. Moist mucous membranes. LUNGS: lungs clear to auscultation, no accessory muscle use HEART: Regular rate and rhythm, ABDOMEN: Soft, nontender, not distended, LOWER EXTREMITIES: 2+ dp pulses, warm, well-perfused. No calf tenderness. No peripheral edema. SKIN: large hematoma on LUE from wrist and extending up midway of arm, radial pulse intact, ROM intact, hand grain weigher intact CBCD WBC 5.3 K/mm3 (4.0-10.0) 12/09/17 05:20 RBC 3.63 M/mm3 (4.00-5.60) L 12/09/17 05:20 Hgb 10.3 GM/dL (11.7-16.9) L 12/09/17 05:20 Hct 31.6 % (35.4-49) L 12/09/17 05:20 MCV 86.9 fl (80-96) 12/09/17 05:20 MCHC 32.7 g/dl (32.0-35.9) 12/09/17 05:20 RDW 19.6 % (11.9-15.9) H 12/09/17 05:20 Plt Count 152 K/MM3 (134-434) 12/09/17 05:20 MPV 10.1 fl (7.5-11.1) 12/09/17 05:20 CMP Sodium 141 mmol/L (136-145) 12/09/17 05:20 Potassium 4.6 mmol/L (3.5-5.1) 12/09/17 07:25 Chloride 107 mmol/L (98-107) 12/09/17 05:20 Carbon Dioxide 28 mmol/L (21-32) 12/09/17 05:20 Anion Gap 6 MMOL/L (8-16) L 12/09/17 05:20 BUN 31 mg/dL (7-18) H 12/09/17 05:20 Creatinine 1.0 mg/dL (0.55-1.3) 12/09/17 05:20 Creat Clearance w eGFR > 60 (>60) 12/09/17 05:20 Calcium 7.9 mg/dL (8.5-10.1) L 12/09/17 05:20 Total Bilirubin 0.7 mg/dL (0.2-1.0) 12/08/17 05:15 AST 21 U/L (15-37) 12/08/17 05:15 ALT 32 U/L (13-61) 12/08/17 05:15 Alkaline Phosphatase 47 U/L (45-117) 12/08/17 05:15 Total Protein 4.9 g/dl (6.4-8.2) L 12/08/17 05:15 Albumin 2.3 g/dl (3.4-5.0) L 12/08/17 05:15 Active Medications Acetaminophen (Tylenol -) 650 mg PO Q6H PRN PRN Reason: FEVER Last Admin: 12/08/17 22:15 Dose: 650 mg Albuterol Sulfate (Ventolin 0.083% Nebulizer Soln -) 1 amp NEB Q6H PRN PRN Reason: SHORT OF BREATH/WHEEZING Apixaban (Eliquis -) 2.5 mg PO BID [facility] Last Admin: 12/08/17 22:16 Dose: 2.5 mg Atorvastatin Calcium (Lipitor -) 20 mg PO HS [facility] Last Admin: 12/08/17 22:16 Dose: 20 mg Budesonide/Formoterol Fumarate (Symbicort 160/4.5mcg -) 2 puff IH BID [facility] Last Admin: 12/08/17 22:17 Dose: 2 inhaler Chlorhexidine Gluconate (Hibiclens For Decolonization -) 1 applic TP HS [facility] Last Admin: 12/08/17 22:17 Dose: 1 applic Duloxetine HCl (Cymbalta -) 60 mg PO DAILY [facility] Last Admin: 12/08/17 09:50 Dose: 60 mg Fluocinonide (Lidex 0.05% Cream -) 1 applic TP DAILY [facility] Last Admin: 12/08/17 09:51 Dose: 1 applic Ceftriaxone Sodium 2 gm/ (Dextrose) 100 mls @ 200 mls/hr IVPB DAILY [facility]; Protocol Last Admin: 12/08/17 09:48 Dose: 200 mls/hr Isosorbide Dinitrate (Isordil -) 10 mg PO BIDISORDIL [facility] Last Admin: 12/08/17 17:48 Dose: 10 mg Levetiracetam (Keppra -) 250 mg PO BID [facility] Last Admin: 12/08/17 22:16 Dose: 250 mg Lisinopril (Prinivil) 10 mg PO DAILY [facility] Last Admin: 12/08/17 09:50 Dose: 10 mg Methylprednisolone Sodium Succinate (Solu-Medrol -) 40 mg IVPUSH BID [facility] Last Admin: 12/08/17 22:14 Dose: 40 mg Metoprolol Succinate (Toprol Xl -) 25 mg PO BID [facility] Last Admin: 12/08/17 22:16 Dose: 25 mg Nystatin (Nystop Powder -) 1 applic TP DAILY [facility] Last Admin: 12/08/17 09:51 Dose: 1 applic Pantoprazole Sodium (Protonix -) 40 mg PO DAILY [facility] Last Admin: 12/08/17 09:50 Dose: 40 mg Pregabalin (Lyrica -) 100 mg PO TID [facility] Last Admin: 12/09/17 05:40 Dose: 100 mg Quetiapine Fumarate (Seroquel -) 12.5 mg PO HS [facility] Last Admin: 12/08/17 22:14 Dose: 12.5 mg Quetiapine Fumarate (Seroquel -) 12.5 mg PO AM PRN PRN Reason: ANXIETY Roflumilast (Daliresp -) 500 mcg PO DAILY [facility] Last Admin: 12/08/17 09:50 Dose: 500 mcg Tiotropium [place] (Spiriva Respimat) 2 puff IH DAILY [facility] Last Admin: 12/08/17 09:49 Dose: 2 puff ASSESSMENT/PLAN: Patient is a 77 y/o male with a history of afib, HTN, HLD, CAD, COPD, DM, PAD, AAA who is here for acute hypoxic respiratory failure 2/2 to COPD exacerbation. Neuro Seizure like actvity/ vs fall - Neurology Dr. Melo: may be partial seizure - Keppra 250 mg po BID - head CT: no acute intracranial hemorrhage or acute vascular territory infarction - EEG when possible - consulted Dr. Zamudio: Continue with Duloxatine 60mg po od, Ativan 1mg IM Q 8hrs PRN for aggressive behaviour - no seizures since being in ICU - EEG completed 12/09/17 Cardio Hypotension : resolved - can give bolus NS if needed afib - metoprolol 25 mg po BID - currently rate controlled and stable - Elliquis 2.[address] Gonzales CAD/HTN - aspirin 81 mg po daily - Isosorbide dinitrate 10 mg po - lipitor 20 mg po hs - lisinopril 20 mg po daily - echo inadequate study tropinemia : resolved - likely demand - f/u Dr. Flora Kendall acute on chronic hypoxic respiratory failure 2/2 to COPD exacerbation - CXR: no sign of acute process - patient on oxygen at home - keep oxygen saturation between 88-92 % - unlikely to be a PE, patients hypoxia likely chronic, Patient last CTA 10/18 showed history of emphysema - patient currently anticoagulated - patient on 4L NC COPD - prednisone 40 mg po daily - albuterol q4h - symbicort BID - Rofluminast 500 po daily - Spiriva 2 puff daily - patient on prednisone at home Renal - furosemide 20 mg po daily, held for labile blood pressure - monitor I's & O's - f/u Dr. Ange DÍAZ Hematoma of LUE - UE doppler: no evidence or arterial dissection or aneyursm , superficial hematomas in LUE - history of AAA repair at [facility] - per vascular Dr. Hendricks and surgery Dr. Palumbo, no evidence of compartment syndrome - monitor hemoglobin - continue PT for ROM and to help edema - keep arm elevated above heart Infectious disease - bcx: Streptococcus Mitis - repeat blood cultures negative - Ceftriaxone ( day 12) - f/u Dr. Benz for duration of treatment GI ppx - protonix 40 mg po daily BPH - tamsulosin .4 mg Endocrine DM - Lyrica 100 mg po TID - A1 C: 6.0 - TSH .12, Free T4:1 DVT ppx - SCD's and elliquis depression - cymbalta 60 mg po daily FEN - diabetic/low sodium diet Dispo: Patient can go to SNF placement tomorrow, will need PICC line for two more weeks of antibiotics. * DNR/DNI Visit type - Emergency Visit Emergency Visit: No - New Patient This patient is new to me today: Yes Date on this admission: 12/09/17 - Critical Care Critical Care patient: Yes Total Critical Care Time (in minutes): 40 Critical Care Statement: The care of this patient involved high complexity decision making to prevent further life threatening deterioration of the patient 's condition and/or to evaluate & treat vital organ system(s) failure or risk of failure.
[2017-12-09] MEDS ORDERED: DEXTROSE 5%-WATER 100 ML IVPB ONE (09:17)
[2017-12-09] MEDS: CEFTRIAXONE 2 GM in DEXTROSE 5%-WATER 100 ML IVPB SCH (10:16)
[2017-12-09] MEDS: methylPREDNISolone NA SUCC 40 MG/1 ML VIAL IVPUSH SCH (10:17)
[2017-12-09] MEDS: levETIRAcetam 250 MG TABLET (FP) PO SCH ×2 (10:17→22:16)
[2017-12-09] MEDS: DULoxetine HCL 30 MG CAPSULE.DR (FP) PO SCH (10:17)
[2017-12-09] MEDS: metoPROLOL SUCCINATE 25 MG TAB.SR.24H (FP) PO SCH ×2 (10:18→21:35)
[2017-12-09] MEDS: ROFLUMILAST 500 MCG TABLET PO SCH (10:18)
[2017-12-09] MEDS: APIXABAN 2.5 MG TABLET PO SCH ×2 (10:18→21:42)
[2017-12-09] MEDS: ISOSORBIDE DINITRATE 10 MG TABLET (FP) PO SCH ×2 (10:18→18:28)
[2017-12-09] MEDS: PANTOPRAZOLE 40 MG TABLET (FP) PO SCH (10:18)
[2017-12-09] MEDS: NYSTATIN POWDER 100,000 UNITS/GM - 15 GM TOPICAL POWDER TP SCH (10:19)
[2017-12-09] MEDS: TIOTROPIUM BROMIDE 2.5 MCG (SPIRIVA) RESPIMAT INHALER IH SCH (10:20)
[2017-12-09] MEDS: BUDESONIDE/FORMETEROL FUMARATE 160/4.5 mcg INHALER IH SCH (10:21)
[2017-12-09] MEDS ORDERED: PT OWN MED DRAWER 7, Y5N ONE ×2 (10:38→14:32)
--- NOTE | 2017-12-09 11:11 | PN ---
Teaching Attending Note Name of Resident: Erna Newmna ATTENDING PHYSICIAN STATEMENT I saw and evaluated the patient. I reviewed the resident's note and discussed the case with the resident. I agree with the resident's findings and plan as documented. SUBJECTIVE: Pt seen and examined in the ICU. Breathing continues to improve. Saturating well on nasal cannula. OBJECTIVE: Vital Signs Period Temp Pulse Resp BP Sys/Varghese Pulse Ox Last 24 Hr 97.6 F-98.8 F 60-90 15-25 109-146/79-98 93-95 Intake & Output 12/06/17 12/07/17 12/08/17 12/09/17 23:59 23:59 23:59 23:59 Intake Total 547 306 7881 150 Output Total 1050 1050 1100 300 Balance -440 -300 -100 -150 Weight 73.284 kg 71.668 kg 69.354 kg 69.354 kg Gen: NAD at rest Heart: RRR Lung: distant breath sounds Abd: soft, nontender Ext: LUE hematoma CBC, BMP 12/09/17 05:20 12/09/17 07:25 Active Medications Acetaminophen (Tylenol -) 650 mg PO Q6H PRN PRN Reason: FEVER Last Admin: 12/08/17 22:15 Dose: 650 mg Albuterol Sulfate (Ventolin 0.083% Nebulizer Soln -) 1 amp NEB Q6H PRN PRN Reason: SHORT OF BREATH/WHEEZING Apixaban (Eliquis -) 2.5 mg PO BID [facility] Last Admin: 12/09/17 10:18 Dose: 2.5 mg Atorvastatin Calcium (Lipitor -) 20 mg PO HS [facility] Last Admin: 12/08/17 22:16 Dose: 20 mg Budesonide/Formoterol Fumarate (Symbicort 160/4.5mcg -) 2 puff IH BID [facility] Last Admin: 12/09/17 10:21 Dose: 2 inhaler Chlorhexidine Gluconate (Hibiclens For Decolonization -) 1 applic TP HS [facility] Last Admin: 12/08/17 22:17 Dose: 1 applic Duloxetine HCl (Cymbalta -) 60 mg PO DAILY [facility] Last Admin: 12/09/17 10:17 Dose: 60 mg Fluocinonide (Lidex 0.05% Cream -) 1 applic TP DAILY [facility] Last Admin: 12/08/17 09:51 Dose: 1 applic Ceftriaxone Sodium 2 gm/ (Dextrose) 100 mls @ 200 mls/hr IVPB DAILY [facility]; Protocol Last Admin: 12/09/17 10:16 Dose: 200 mls/hr Isosorbide Dinitrate (Isordil -) 10 mg PO BIDISORDIL [facility] Last Admin: 12/09/17 10:18 Dose: 10 mg Levetiracetam (Keppra -) 250 mg PO BID [facility] Last Admin: 12/09/17 10:17 Dose: 250 mg Lisinopril (Prinivil) 20 mg PO DAILY [facility] Metoprolol Succinate (Toprol Xl -) 25 mg PO BID [facility] Last Admin: 12/09/17 10:18 Dose: 25 mg Nystatin (Nystop Powder -) 1 applic TP DAILY [facility] Last Admin: 12/09/17 10:19 Dose: 1 applic Pantoprazole Sodium (Protonix -) 40 mg PO DAILY [facility] Last Admin: 12/09/17 10:18 Dose: 40 mg Prednisone (Deltasone -) 40 mg PO DAILY [facility] Pregabalin (Lyrica -) 100 mg PO TID [facility] Last Admin: 12/09/17 05:40 Dose: 100 mg Quetiapine Fumarate (Seroquel -) 12.5 mg PO HS [facility] Last Admin: 12/08/17 22:14 Dose: 12.5 mg Quetiapine Fumarate (Seroquel -) 12.5 mg PO AM PRN PRN Reason: ANXIETY Roflumilast (Daliresp -) 500 mcg PO DAILY [facility] Last Admin: 12/09/17 10:18 Dose: 500 mcg Tiotropium [place] (Spiriva Respimat) 2 puff IH DAILY [facility] Last Admin: 12/09/17 10:20 Dose: 2 puff ASSESSMENT AND PLAN: Acute on Chronic Hypoxic Respiratory Failure Left Arm Hematoma Seizures Acute COPD Exacerbation LV Diastolic Dysfunction Atrial Fibrillation Acute on Chronic Renal Failure h/o CVA CAD HTN Hyperlipidemia - continue antibiotics, will need PICC line - can change steroids to PO - inhaled bronchodilators - O2 to keep Spo2 >90% - monitor urine output, creatinine - rate control - continue anticoagulation - can monitor on floor
[2017-12-09] MEDS: FLUOCINONIDE 0.05% CREAM (60 GM TUBE) TP SCH (13:09)
[2017-12-09] MEDS: LISINOPRIL 20 MG TABLET (FP) PO SCH (13:10)
--- NOTE | 2017-12-09 15:38 | PN ---
Physical Exam: HEME/ONC CONSULT SUBJECTIVE: Patient seen and examined at bed side this afternoon. Feels well. No complaints. Just had one bowel movement. Denies chest pain, sob, cough, palpitation, abdominal pain, nausea or vomiting. Bladder habit normal. Sleep/ Appetite normal. No acute overnight events. OBJECTIVE: Vital Signs Period Temp Pulse Resp BP Sys/Varghese Pulse Ox Last 24 Hr 97.6 F-98.8 F 60-76 15-21 109-146/79-98 93-94 GENERAL: Elderly male, lying comfortably in bed, is awake, alert, and fully oriented, in no acute distress. HEAD: Normal with no signs of trauma. EYES: EOM intact, no pallor or icterus. ENT: Ears normal, moist mucous membranes. NECK: Supple. LUNGS: B/L Breath sounds equal, no wheezes, no crackles, no accessory muscle use. HEART: Irregularly irregular rate and rhythm, S1, S2 with soft systolic murmur. ABDOMEN: Soft, nontender, no organomegaly. UPPER EXTREMITY RIGHT: 2+ pulses, warm, well-perfused, no edema. LEFT UPPER EXTREMITY: Blackish discoloration of skin till the mid arm from the tip of the fingers, Hematoma +, no leakage, pulses palpable, ROM +but limited due to pain. NEUROLOGICAL: No facial droop. Normal speech, gait not observed. PSYCH: Normal mood, normal affect. SKIN: Warm, dry, normal turgor, no rashes or lesions noted Laboratory Results - last 24 hr 12/09/17 12/09/17 12/09/17 05:20 05:20 07:25 WBC 5.3 RBC 3.63 L Hgb 10.3 L Hct 31.6 L MCV 86.9 MCH 28.4 MCHC 32.7 RDW 19.6 H Plt Count 152 MPV 10.1 Absolute Neuts (auto) 4.8 Total Counted 100 Neutrophils % 91.5 H Neutrophils % (Manual) 92.0 H Lymphocytes % 4.6 L D Lymphocytes % (Manual) 5.0 L D Monocytes % 3.7 L Monocytes % (Manual) 3 L D Eosinophils % 0.0 Basophils % 0.2 Nucleated RBC % 0 Hypochromia 1+ Platelet Estimate Adequate Platelet Comment No clumping noted Anisocytosis 1+ Sodium 141 Potassium 5.6 H 4.6 Chloride 107 Carbon Dioxide 28 Anion Gap 6 L BUN 31 H Creatinine 1.0 Creat Clearance w eGFR > 60 Random Glucose 107 H Calcium 7.9 L Phosphorus 4.1 Magnesium 2.3 Active Medications Generic Name Dose Route Start Last Admin Trade Name Freangela PRN Reason Stop Dose Admin Acetaminophen 650 mg 12/03/17 18:52 12/08/17 22:15 Tylenol - PO 650 mg Q6H PRN Administration FEVER Albuterol Sulfate 1 amp 12/05/17 12:37 Ventolin 0.083% Nebulizer Soln - NEB Q6H PRN SHORT OF BREATH/WHEEZING Apixaban 2.5 mg 12/05/17 10:00 12/09/17 10:18 Eliquis - PO 2.5 mg BID [facility] Administration Atorvastatin Calcium 20 mg 12/03/17 22:00 12/08/17 22:16 Lipitor - PO 20 mg HS [facility] Administration Budesonide/Formoterol Fumarate 2 puff 12/04/17 22:00 12/09/17 10:21 Symbicort 160/4.5mcg - IH 2 inhaler BID [facility] Administration Chlorhexidine Gluconate 1 applic 12/03/17 22:00 12/08/17 22:17 Hibiclens For Decolonization - TP 1 applic HS [facility] Administration Duloxetine HCl 60 mg 12/04/17 10:00 12/09/17 10:17 Cymbalta - PO 60 mg DAILY [facility] Administration Fluocinonide 1 applic 12/04/17 10:00 12/09/17 13:09 Lidex 0.05% Cream - TP 1 applic DAILY [facility] Administration Ceftriaxone Sodium 2 gm/ 100 mls @ 200 mls/hr 12/04/17 10:00 12/09/17 10:16 Dextrose IVPB 200 mls/hr DAILY [facility] Administration Protocol Isosorbide Dinitrate 10 mg 12/04/17 10:00 12/09/17 10:18 Isordil - PO 10 mg BIDISORDIL [facility] Administration Levetiracetam 250 mg 12/03/17 22:00 12/09/17 10:17 Keppra - PO 250 mg BID [facility] Administration Lisinopril 20 mg 12/09/17 09:12 12/09/17 13:10 Prinivil PO 20 mg DAILY [facility] Administration Metoprolol Succinate 25 mg 12/03/17 22:00 12/09/17 10:18 Toprol Xl - PO 25 mg BID [facility] Administration Nystatin 1 applic 12/04/17 10:00 12/09/17 10:19 Nystop Powder - TP 1 applic DAILY [facility] Administration Pantoprazole Sodium 40 mg 12/04/17 10:00 12/09/17 10:18 Protonix - PO 40 mg DAILY [facility] Administration Prednisone 40 mg 12/10/17 10:00 Deltasone - PO DAILY [facility] Pregabalin 100 mg 12/03/17 22:00 12/09/17 13:10 Lyrica - PO 100 mg TID [facility] Administration Quetiapine Fumarate 12.5 mg 12/06/17 22:00 12/08/17 22:14 Seroquel - PO 12.5 mg HS [facility] Administration Quetiapine Fumarate 12.5 mg 12/06/17 15:34 Seroquel - PO AM PRN ANXIETY Roflumilast 500 mcg 12/05/17 12:45 12/09/17 10:18 Daliresp - PO 500 mcg DAILY [facility] Administration Tiotropium [place] 2 puff 12/05/17 12:45 12/09/17 10:20 Spiriva Respimat IH 2 puff DAILY [facility] Administration Patient is a 77 y/o male with a history of AAA repair (2011), CVA, TAA, afib( on Xeralto at home) DVT, CAD, CHF, COPD, CKD, BPH, PPM, hypertension, hyperlipidemia, knee replacement and cataract repair who is here for acute hypoxic respiratory failure 2/2 to COPD exacerbation. ASSESSMENT Hematoma of LUE Thrombocytopenia-Resolved Atrial fibrillation -rate controlled Bactermia: On Ceftriaxone Seizure like activity Hypertension- Controlled Elevated troponins- Resolved Acute on chronic hypoxic respiratory failure BPH PLAN: Currently on Eliquis 2.5 mg PO BID. Continue to monitor H/H. Transfuse if Hct < 25. Watch for the size of hematoma, if bleeding, stop Eliquis. Thrombocytopenia: Resolved Questionable Pancreatic mass ? Neuroendocrine tumor 04/11 Abdomen/Pelvis CT: Subcentimeter arterial enhancing lesion in the pancreatic head ? Neuroendocrine tumor. Plan is to discuss with the patient and the family regarding further evaluation and treatment of the malignancy. F/up as outpatient for further work up. Case discussed with Dr. Gonzales Thank you for the consultative opportunity. Visit type - Emergency Visit Emergency Visit: Yes ED Registration Date: 11/23/17 Care time: The patient presented to the Emergency Department on the above date and was hospitalized for further evaluation of their emergent condition. - New Patient This patient is new to me today: Yes Date on this admission: 12/09/17 - Critical Care Critical Care patient: Yes Total Critical Care Time (in minutes): 35 Critical Care Statement: The care of this patient involved high complexity decision making to prevent further life threatening deterioration of the patient 's condition and/or to evaluate & treat vital organ system(s) failure or risk of failure. - Discharge Referral Referred to [facility] Med [facility] No
--- NOTE | 2017-12-09 15:57 | PN ---
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, Physician Chief Complaint: awake more alert calm - Current Medication List Current Medications: Active Medications Acetaminophen (Tylenol -) 650 mg PO Q6H PRN PRN Reason: FEVER Last Admin: 12/08/17 22:15 Dose: 650 mg Albuterol Sulfate (Ventolin 0.083% Nebulizer Soln -) 1 amp NEB Q6H PRN PRN Reason: SHORT OF BREATH/WHEEZING Apixaban (Eliquis -) 2.5 mg PO BID [facility] Last Admin: 12/09/17 10:18 Dose: 2.5 mg Atorvastatin Calcium (Lipitor -) 20 mg PO HS [facility] Last Admin: 12/08/17 22:16 Dose: 20 mg Budesonide/Formoterol Fumarate (Symbicort 160/4.5mcg -) 2 puff IH BID [facility] Last Admin: 12/09/17 10:21 Dose: 2 inhaler Chlorhexidine Gluconate (Hibiclens For Decolonization -) 1 applic TP HS [facility] Last Admin: 12/08/17 22:17 Dose: 1 applic Duloxetine HCl (Cymbalta -) 60 mg PO DAILY [facility] Last Admin: 12/09/17 10:17 Dose: 60 mg Fluocinonide (Lidex 0.05% Cream -) 1 applic TP DAILY [facility] Last Admin: 12/09/17 13:09 Dose: 1 applic Ceftriaxone Sodium 2 gm/ (Dextrose) 100 mls @ 200 mls/hr IVPB DAILY [facility]; Protocol Last Admin: 12/09/17 10:16 Dose: 200 mls/hr Isosorbide Dinitrate (Isordil -) 10 mg PO BIDISORDIL [facility] Last Admin: 12/09/17 10:18 Dose: 10 mg Levetiracetam (Keppra -) 250 mg PO BID [facility] Last Admin: 12/09/17 10:17 Dose: 250 mg Lisinopril (Prinivil) 20 mg PO DAILY [facility] Last Admin: 12/09/17 13:10 Dose: 20 mg Metoprolol Succinate (Toprol Xl -) 25 mg PO BID [facility] Last Admin: 12/09/17 10:18 Dose: 25 mg Nystatin (Nystop Powder -) 1 applic TP DAILY [facility] Last Admin: 12/09/17 10:19 Dose: 1 applic Pantoprazole Sodium (Protonix -) 40 mg PO DAILY [facility] Last Admin: 12/09/17 10:18 Dose: 40 mg Prednisone (Deltasone -) 40 mg PO DAILY [facility] Pregabalin (Lyrica -) 100 mg PO TID [facility] Last Admin: 12/09/17 13:10 Dose: 100 mg Quetiapine Fumarate (Seroquel -) 12.5 mg PO HS [facility] Last Admin: 12/08/17 22:14 Dose: 12.5 mg Quetiapine Fumarate (Seroquel -) 12.5 mg PO AM PRN PRN Reason: ANXIETY Roflumilast (Daliresp -) 500 mcg PO DAILY [facility] Last Admin: 12/09/17 10:18 Dose: 500 mcg Tiotropium [place] (Spiriva Respimat) 2 puff IH DAILY [facility] Last Admin: 12/09/17 10:20 Dose: 2 puff - Objective Vital Signs: Vital Signs Temperature 97.6 F 12/09/17 08:00 Pulse Rate 63 12/09/17 08:04 Respiratory Rate 16 12/09/17 08:03 Blood Pressure 117/87 12/09/17 08:00 O2 Sat by Pulse Oximetry (%) 93 L 12/09/17 08:04 Constitutional: Yes: Mild Distress Eyes: Yes: WNL HENT: Yes: WNL Neck: Yes: WNL Cardiovascular: Yes: Pulse Irregular Respiratory: Yes: On Nasal O2 Gastrointestinal: Yes: WNL Genitourinary: Yes: Incontinence Musculoskeletal: Yes: Other Extremities: Yes: WNL Edema: Yes Edema: LLE: 1+, RLE: 1+ Peripheral Pulses WNL: Yes Integumentary: Yes: Venous Stasis Changes Wound/Incision: Yes: Open to air Neurological: Yes: Confusion, Other ...Motor Strength: LLE, RLE Psychiatric: Yes: Other Labs: CBC, BMP 12/09/17 05:20 12/09/17 07:25 INR, PTT INR 1.04 (0.83-1.09) 11/27/17 05:30 Problem List - Problems (1) Bacteremia Code(s): R78.81 - BACTEREMIA (2) Cardiomyopathy Code(s): I42.9 - CARDIOMYOPATHY, UNSPECIFIED Qualifiers: Cardiomyopathy type: ischemic Qualified Code(s): I25.5 - Ischemic cardiomyopathy (3) Chronic respiratory failure with hypoxia Code(s): J96.11 - CHRONIC RESPIRATORY FAILURE WITH HYPOXIA (4) History of aortic aneurysm repair Code(s): Z98.890 - OTHER SPECIFIED POSTPROCEDURAL STATES; Z86.79 - PERSONAL HISTORY OF OTHER DISEASES OF THE CIRCULATORY SYSTEM (5) History of arterial bypass of lower extremity Code(s): Z95.828 - PRESENCE OF OTHER VASCULAR IMPLANTS AND GRAFTS (6) SOB (shortness of breath) Code(s): R06.02 - SHORTNESS OF BREATH (7) Tachycardia Code(s): R00.0 - TACHYCARDIA, UNSPECIFIED (8) CAD (coronary artery disease) Code(s): I25.10 - ATHSCL HEART DISEASE OF [place] CORONARY ARTERY W/O ANG PCTRS Qualifiers: Coronary Disease-Associated Artery/Lesion type: [place] artery (9) History of permanent cardiac pacemaker placement Code(s): Z95.0 - PRESENCE OF CARDIAC PACEMAKER Assessment/Plan SEROQUEL HS 12.5MG NEBS STEROIDS 02 SUPPORT OOB TO CHAIR SNF PLACEMENT TOMORROW
--- NOTE | 2017-12-09 16:04 | PN ---
Progress Note, Physician History of Present Illness: Pt seen and examined at bedside. He is awake and appears comfortable. - Current Medication List Current Medications: Active Medications Acetaminophen (Tylenol -) 650 mg PO Q6H PRN PRN Reason: FEVER Last Admin: 12/08/17 22:15 Dose: 650 mg Albuterol Sulfate (Ventolin 0.083% Nebulizer Soln -) 1 amp NEB Q6H PRN PRN Reason: SHORT OF BREATH/WHEEZING Apixaban (Eliquis -) 2.5 mg PO BID [facility] Last Admin: 12/09/17 10:18 Dose: 2.5 mg Atorvastatin Calcium (Lipitor -) 20 mg PO HS [facility] Last Admin: 12/08/17 22:16 Dose: 20 mg Budesonide/Formoterol Fumarate (Symbicort 160/4.5mcg -) 2 puff IH BID [facility] Last Admin: 12/09/17 10:21 Dose: 2 inhaler Chlorhexidine Gluconate (Hibiclens For Decolonization -) 1 applic TP HS [facility] Last Admin: 12/08/17 22:17 Dose: 1 applic Duloxetine HCl (Cymbalta -) 60 mg PO DAILY [facility] Last Admin: 12/09/17 10:17 Dose: 60 mg Fluocinonide (Lidex 0.05% Cream -) 1 applic TP DAILY [facility] Last Admin: 12/09/17 13:09 Dose: 1 applic Ceftriaxone Sodium 2 gm/ (Dextrose) 100 mls @ 200 mls/hr IVPB DAILY [facility]; Protocol Last Admin: 12/09/17 10:16 Dose: 200 mls/hr Isosorbide Dinitrate (Isordil -) 10 mg PO BIDISORDIL [facility] Last Admin: 12/09/17 10:18 Dose: 10 mg Levetiracetam (Keppra -) 250 mg PO BID [facility] Last Admin: 12/09/17 10:17 Dose: 250 mg Lisinopril (Prinivil) 20 mg PO DAILY [facility] Last Admin: 12/09/17 13:10 Dose: 20 mg Metoprolol Succinate (Toprol Xl -) 25 mg PO BID [facility] Last Admin: 12/09/17 10:18 Dose: 25 mg Nystatin (Nystop Powder -) 1 applic TP DAILY [facility] Last Admin: 12/09/17 10:19 Dose: 1 applic Pantoprazole Sodium (Protonix -) 40 mg PO DAILY [facility] Last Admin: 12/09/17 10:18 Dose: 40 mg Prednisone (Deltasone -) 40 mg PO DAILY [facility] Pregabalin (Lyrica -) 100 mg PO TID [facility] Last Admin: 12/09/17 13:10 Dose: 100 mg Quetiapine Fumarate (Seroquel -) 12.5 mg PO HS [facility] Last Admin: 12/08/17 22:14 Dose: 12.5 mg Quetiapine Fumarate (Seroquel -) 12.5 mg PO AM PRN PRN Reason: ANXIETY Roflumilast (Daliresp -) 500 mcg PO DAILY [facility] Last Admin: 12/09/17 10:18 Dose: 500 mcg Tiotropium [place] (Spiriva Respimat) 2 puff IH DAILY [facility] Last Admin: 12/09/17 10:20 Dose: 2 puff - Objective Vital Signs: Vital Signs Temperature 97.6 F 12/09/17 08:00 Pulse Rate 63 12/09/17 08:04 Respiratory Rate 16 12/09/17 08:03 Blood Pressure 117/87 12/09/17 08:00 O2 Sat by Pulse Oximetry (%) 93 L 12/09/17 08:04 Constitutional: Yes: Calm Eyes: Yes: Conjunctiva Clear HENT: Yes: Atraumatic Neck: Yes: Supple Cardiovascular: Yes: S1, S2 Respiratory: Yes: On Nasal O2 Gastrointestinal: Yes: Normal Bowel Sounds, Soft Genitourinary: Yes: WNL Musculoskeletal: Yes: WNL Edema: No Neurological: Yes: Oriented Psychiatric: Yes: Oriented Labs: CBC, BMP 12/09/17 05:20 12/09/17 07:25 INR, PTT INR 1.04 (0.83-1.09) 11/27/17 05:30 Problem List - Problems (1) Fall Code(s): W19.XXXA - UNSPECIFIED FALL, INITIAL ENCOUNTER Qualifiers: Encounter type: subsequent encounter Qualified Code(s): W19.XXXD - Unspecified fall, subsequent encounter (2) CAD (coronary artery disease) Code(s): I25.10 - ATHSCL HEART DISEASE OF [place] CORONARY ARTERY W/O ANG PCTRS Qualifiers: Coronary Disease-Associated Artery/Lesion type: [place] artery Associated angina: with stable angina (3) CHF (congestive heart failure) Code(s): I50.9 - HEART FAILURE, UNSPECIFIED (4) CKD (chronic kidney disease) Code(s): N18.9 - CHRONIC KIDNEY DISEASE, UNSPECIFIED Qualifiers: Chronic kidney disease stage: stage 3 (moderate) Qualified Code(s): N18.3 - Chronic kidney disease, stage 3 (moderate) Assessment/Plan Current Medications Generic Name Dose Route Start Last Admin Trade Name Freq PRN Reason Stop Dose Admin Acetaminophen 650 mg 12/03/17 18:52 12/08/17 22:15 Tylenol - PO 650 mg Q6H PRN Administration FEVER Albuterol Sulfate 1 amp 12/05/17 12:37 Ventolin 0.083% Nebulizer Soln - NEB Q6H PRN SHORT OF BREATH/WHEEZING Apixaban 2.5 mg 12/05/17 10:00 12/09/17 10:18 Eliquis - PO 2.5 mg BID [facility] Administration Atorvastatin Calcium 20 mg 12/03/17 22:00 12/08/17 22:16 Lipitor - PO 20 mg HS [facility] Administration Budesonide/Formoterol Fumarate 2 puff 12/04/17 22:00 12/09/17 10:21 Symbicort 160/4.5mcg - IH 2 inhaler BID [facility] Administration Chlorhexidine Gluconate 1 applic 12/03/17 22:00 12/08/17 22:17 Hibiclens For Decolonization - TP 1 applic HS [facility] Administration Duloxetine HCl 60 mg 12/04/17 10:00 12/09/17 10:17 Cymbalta - PO 60 mg DAILY [facility] Administration Fluocinonide 1 applic 12/04/17 10:00 12/09/17 13:09 Lidex 0.05% Cream - TP 1 applic DAILY [facility] Administration Ceftriaxone Sodium 2 gm/ 100 mls @ 200 mls/hr 12/04/17 10:00 12/09/17 10:16 Dextrose IVPB 200 mls/hr DAILY [facility] Administration Protocol Isosorbide Dinitrate 10 mg 12/04/17 10:00 12/09/17 10:18 Isordil - PO 10 mg BIDISORDIL [facility] Administration Levetiracetam 250 mg 12/03/17 22:00 12/09/17 10:17 Keppra - PO 250 mg BID [facility] Administration Lisinopril 20 mg 12/09/17 09:12 12/09/17 13:10 Prinivil PO 20 mg DAILY [facility] Administration Metoprolol Succinate 25 mg 12/03/17 22:00 12/09/17 10:18 Toprol Xl - PO 25 mg BID [facility] Administration Nystatin 1 applic 12/04/17 10:00 12/09/17 10:19 Nystop Powder - TP 1 applic DAILY [facility] Administration Pantoprazole Sodium 40 mg 12/04/17 10:00 12/09/17 10:18 Protonix - PO 40 mg DAILY [facility] Administration Prednisone 40 mg 12/10/17 10:00 Deltasone - PO DAILY [facility] Pregabalin 100 mg 12/03/17 22:00 12/09/17 13:10 Lyrica - PO 100 mg TID [facility] Administration Quetiapine Fumarate 12.5 mg 12/06/17 22:00 12/08/17 22:14 Seroquel - PO 12.5 mg HS [facility] Administration Quetiapine Fumarate 12.5 mg 12/06/17 15:34 Seroquel - PO AM PRN ANXIETY Roflumilast 500 mcg 12/05/17 12:45 12/09/17 10:18 Daliresp - PO 500 mcg DAILY [facility] Administration Tiotropium [place] 2 puff 12/05/17 12:45 12/09/17 10:20 Spiriva Respimat IH 2 puff DAILY [facility] Administration Impression 1. CKD 2. COPD exacerbation 3. AAA 4. hx CVA 5. a-fib 6. HTN 7. insomnia 8. hypoxic resp failure 9. CAD 10. BPH 12. microscopic hematuria 13. hypoxia Plan - lasix as needed - monitor pulse ox - monitor renal function - repeat labs in am - pt tolerating lisinopril - steroids with taper - cont oxygen - avoid nsaids - will follow
[2017-12-09] MEDS: ATORVASTATIN CA 20 MG TABLET (FP) PO SCH (21:28)
[2017-12-09] MEDS: QUEtiapine FUMARATE 25 MG TABLET (FP) PO SCH (21:29)
[2017-12-09] MEDS: CHLORHEXIDINE GLUCONATE 4% CLEANSER FOR DECOLONIZATION TP SCH (21:42)
[2017-12-10 06:17] LABS: EOS % 0.7 % (0-4.5); HEMATOCRIT 31.7 % (35.4-49); HEMOGLOBIN 10.2 GM/dL (11.7-16.9); LYMPH % 15.2 % (8-40); MCH 27.5 pg (25.7-33.7); MCHC 32.3 g/dl (32.0-35.9); MEAN CELL VOLUME 85.3 fl (80-96); MEAN PLT VOLUME 9.5 fl (7.5-11.1); MONO % 7.7 % (3.8-10.2); NEUT % 76.4 % (42.8-82.8); PLATELET COUNT 142 K/MM3 (134-434); RBC 3.71 M/mm3 (4.00-5.60); RDW 19.4 % (11.9-15.9); WHITE BLOOD COUNT 5.7 K/mm3 (4.0-10.0)
[2017-12-10] MEDS ORDERED: PT OWN MED DRAWER 7, Y5N ONE ×5 (06:20→21:16)
[2017-12-10 06:35] LABS: ANION GAP 7 MMOL/L (8-16); BLOOD UREA NITROGEN 31 mg/dL (7-18); CALCIUM 7.6 mg/dL (8.5-10.1); CHLORIDE 107 mmol/L (98-107); CO2 26 mmol/L (21-32); GLUCOSE,RANDOM 80 mg/dL (74-106); MAGNESIUM 2.2 mg/dL (1.8-2.4); SODIUM 140 mmol/L (136-145)
[2017-12-10] MEDS: PREGABALIN 100 MG CAPSULE PO SCH ×3 (06:35→21:34)
[2017-12-10] MEDS: BUDESONIDE/FORMETEROL FUMARATE 160/4.5 mcg INHALER IH SCH (06:35)
[2017-12-10 06:37] LABS: CREATININE 0.9 mg/dL (0.55-1.3)
[2017-12-10] MEDS ORDERED: ACETAMINOPHEN 325 MG TABLET (FP) PO PRN (08:06)
[2017-12-10] MEDS ORDERED: QUEtiapine FUMARATE 25 MG TABLET (FP) PO PRN (08:06)
[2017-12-10] MEDS ORDERED: ALBUTEROL SO4 0.083% IH SOL 2.5 MG/3 ML VIAL.NEB. NEB PRN (08:06)
--- NOTE | 2017-12-10 09:10 | DS ---
Physical Examination Vital Signs: Vital Signs Temperature 97.8 F 12/10/17 06:00 Pulse Rate 94 H 12/10/17 08:07 Respiratory Rate 22 12/10/17 08:00 Blood Pressure 132/88 12/10/17 08:00 O2 Sat by Pulse Oximetry (%) 97 12/10/17 08:07 Constitutional: Yes: Mild Distress Eyes: Yes: WNL HENT: Yes: WNL Neck: Yes: WNL Cardiovascular: Yes: Pulse Irregular Respiratory: Yes: Diminished, On Nasal O2 Gastrointestinal: Yes: WNL Renal/: Yes: Incontinence Musculoskeletal: Yes: Muscle Weakness Extremities: Yes: Other Edema: Yes Edema: LLE: 1+, RLE: 1+ Peripheral Pulses WNL: Yes Integumentary: Yes: Bruising, Rash, Venous Stasis Changes Wound/Incision: Yes: Open to air Neurological: Yes: Pre-Existing Deficit ...Motor Strength: LLE, RLE Psychiatric: Yes: Other Labs: CBC, BMP 12/10/17 05:30 12/10/17 05:30 Discharge Summary Reason For Visit: FALL Current Active Problems Bacteremia (Acute) Fall (Acute) Hematoma (Acute) Hypotension (Acute) Leukocytosis (leucocytosis) (Acute) Seizure (Acute) Traumatic hematoma of left upper arm (Acute) Procedures: Principal: CT SCANS Hospital Course: ADMITTED PNA/RESP DISTRESS ACUTE ON CHRONIC CHF WITH COPD EXACERBATION, TREATED WITH 02 SUPPORT, NEBS, ABX, STEROIDS IV Condition: Guarded - Instructions Diet, Activity, Other Instructions: LOW SODIUM WILL NEED SLOW PREDNISONE TAPER PHYSICAL THERAPY AIRVO NEEDED Referrals: Xavier Escamilla MD [Primary Care Provider] - Disposition: ASSISTED FACILITY - Home Medications Comprehensive Discharge Medication List: Ambulatory Orders Albuterol 0.083% Nebulizer [place] [Ventolin 0.083% Nebulizer Soln -] 1 neb NEB QID 11/08/17 Aspirin [Ecotrin] 81 mg PO DAILY 11/08/17 Budesonide/Formeterol Fumarate [SYMBICORT 160/4.5mcg -] 1 inh PO BID 11/08/17 Duloxetine HCl [Cymbalta -] 60 mg PO DAILY 11/08/17 Ferrous Sulfate 325 mg PO DAILY 11/08/17 Fluocinonide 0.05% Cream [Lidex 0.05% Cream -] 1 applic TP DAILY 11/08/17 Isosorbide Dinitrate [Isordil -] 20 mg PO BID 11/08/17 Lovastatin 10 mg PO HS 11/08/17 Pantoprazole Sodium [Protonix] 40 mg PO DAILY 11/08/17 Pregabalin [Lyrica] 100 mg PO TID 11/08/17 Rivaroxaban [Xarelto -] 20 mg PO DAILY 11/08/17 Tamsulosin HCl [Flomax] 0.4 mg PO HS 11/08/17 Furosemide [Lasix -] 40 mg PO DAILY tablet 11/12/17 Diltiazem Cd [Cardizem Cd -] 120 mg PO DAILY #30 cap.cd.24h 11/15/17 Lisinopril [Prinivil] 40 mg PO DAILY #0 tablet 11/15/17 Metoprolol Succinate [Toprol XL -] 50 mg PO BID tab.sr.24h 11/15/17 Prednisone 10 mg PO BID #100 tablet 11/15/17 Acetaminophen [Tylenol .Regular Strength -] 650 mg PO Q6H PRN tablet 12/10/17 Albuterol 0.083% Nebulizer [place] [Ventolin 0.083% Nebulizer Soln -] 1 amp NEB Q6H PRN amp 12/10/17 Apixaban [Eliquis -] 2.5 mg PO BID tablet 12/10/17 Atorvastatin Ca [Lipitor] 20 mg PO HS tablet 12/10/17 Budesonide/Formeterol Fumarate [SYMBICORT 160/4.5mcg -] 2 puff IH BID inhaler 12/10/17 Lisinopril [Prinivil] 20 mg PO DAILY tablet 12/10/17 Nystatin Powder [Nystop Powder -] 1 applic TP DAILY applic 12/10/17 Quetiapine Fumarate [Seroquel -] 12.5 mg PO AM PRN tablet 12/10/17 Quetiapine Fumarate [Seroquel -] 12.5 mg PO HS tablet 12/10/17 Roflumilast [Daliresp -] 500 mcg PO DAILY tablet 12/10/17 Tiotropium [place] [Spiriva Respimat] 2 puff IH DAILY inhaler 12/10/17 levETIRAcetam [Keppra -] 250 mg PO BID tablet 12/10/17 predniSONE [Deltasone -] 40 mg PO DAILY tablet 12/10/17
--- NOTE | 2017-12-10 09:27 | PN ---
Progress Note, Physician Chief Complaint: more alert Off high flow O2 TELE: Paced with long runs NSVT - Current Medication List Current Medications: Active Medications Acetaminophen (Tylenol -) 650 mg PO Q6H PRN PRN Reason: FEVER Albuterol Sulfate (Ventolin 0.083% Nebulizer Soln -) 1 amp NEB Q6H PRN PRN Reason: SHORT OF BREATH/WHEEZING Apixaban (Eliquis -) 2.5 mg PO BID [facility] Atorvastatin Calcium (Lipitor -) 20 mg PO HS [facility] Budesonide/Formoterol Fumarate (Symbicort 160/4.5mcg -) 2 puff IH BID [facility] Chlorhexidine Gluconate (Hibiclens For Decolonization -) 1 applic TP HS [facility] Duloxetine HCl (Cymbalta -) 60 mg PO DAILY [facility] Fluocinonide (Lidex 0.05% Cream -) 1 applic TP DAILY [facility] Ceftriaxone Sodium 2 gm/ (Dextrose) 100 mls @ 200 mls/hr IVPB DAILY [facility]; Protocol Isosorbide Dinitrate (Isordil -) 10 mg PO BIDISORDIL [facility] Levetiracetam (Keppra -) 250 mg PO BID [facility] Lisinopril (Prinivil) 20 mg PO DAILY [facility] Last Admin: 12/09/17 13:10 Dose: 20 mg Metoprolol Succinate (Toprol Xl -) 37.5 mg PO BID [facility] Nystatin (Nystop Powder -) 1 applic TP DAILY [facility] Pantoprazole Sodium (Protonix -) 40 mg PO DAILY [facility] Prednisone (Deltasone -) 40 mg PO DAILY [facility] Pregabalin (Lyrica -) 100 mg PO TID [facility] Quetiapine Fumarate (Seroquel -) 12.5 mg PO AM PRN PRN Reason: ANXIETY Quetiapine Fumarate (Seroquel -) 12.5 mg PO HS [facility] Roflumilast (Daliresp -) 500 mcg PO DAILY [facility] Tiotropium [place] (Spiriva Respimat) 2 puff IH DAILY [facility] - Objective Vital Signs: Vital Signs Temperature 97.8 F 12/10/17 06:00 Pulse Rate 94 H 12/10/17 08:07 Respiratory Rate 22 12/10/17 08:00 Blood Pressure 132/88 12/10/17 08:00 O2 Sat by Pulse Oximetry (%) 97 12/10/17 08:07 Constitutional: Yes: No Distress Cardiovascular: Yes: Regular Rate and Rhythm Respiratory: Yes: Other (decreased breath sounds.) Gastrointestinal: Yes: Soft Edema: No Neurological: Yes: Alert, Oriented Labs: CBC, BMP 12/10/17 05:30 12/10/17 05:30 INR, PTT INR 1.04 (0.83-1.09) 11/27/17 05:30 Laboratory Tests 12/10/17 12/10/17 05:30 05:30 WBC 5.7 Hgb 10.2 L Plt Count 142 Sodium 140 Potassium 4.0 Creatinine 0.9 Magnesium 2.2 - ....Imaging EKG: Image Reviewed Assessment/Plan IMP: ASHD with chronic angina- deemed not a candidate for cath due to extensive and diffuse aortic calcifications- elevated risk for stroke Anginal episodes during period of hypotension- decreased coronary perfusion: Now Resolved. Hypotension secondary to volume depletion: resolved. NSVT- chronic HTN PAD ICM s/p CLINICAL NURSING PROFESSOR-P (refused ICD) Multiple aneurysms AF Traumatic hematoma, upper extremity after fall due to seizure Thrombocytopenia- improved COPD, chronic. Gram + bacteremia: 1 bottle Pancreatic mass REC: 1. AC resumed. Platelets improved. LUE hematoma improved. H/H stable.Pancreatic mass to be d/w patient/family. Cont. Eliquis adjusted for renal fxn. 2. Serial cultures have been negative. WBC is down. Afebrile. Duration of abx as per ID. Patient would be at elevated risk for GOPI due to his hypoxia and respiratory status. Furthermore, unclear that GOPI would exchange clerk significantly. He is not a surgical candidate. Plan d/w and patient who agree. 3. Increase Toprol to 37.5mg BID for NSVT: keep K+>4 and Mg2+>2. Patient refused ICD, opted for CLINICAL NURSING PROFESSOR-P. Try to minimize use of albuterol as this may contribute to tachycardia and V-ectopy. 4. Hypotension resolved with IVF and d/c of diuretics. Amlodipine discontinued. Renal fx remains stable. 5. Mild elevation TnI with normal CK: probably due to relative hypotension causing underperfusion of coronaries in background of underlying CAD. No further angina for 72 hours with normalization of BP.
[2017-12-10] MEDS ORDERED: BUDESONIDE/FORMETEROL FUMARATE 160/4.5 mcg INHALER IH SCH (10:00)
[2017-12-10] MEDS ORDERED: metoPROLOL SUCCINATE 25 MG TAB.SR.24H (FP) PO SCH (10:00)
[2017-12-10] MEDS ORDERED: predniSONE 20 MG TABLET (UD) PO SCH (10:00)
[2017-12-10] MEDS ORDERED: DEXTROSE 5%-WATER 100 ML IVPB ONE (10:33)
[2017-12-10] MEDS: DULoxetine HCL 30 MG CAPSULE.DR (FP) PO SCH (10:36)
[2017-12-10] MEDS: ROFLUMILAST 500 MCG TABLET PO SCH (10:37)
[2017-12-10] MEDS: metoPROLOL SUCCINATE 25 MG TAB.SR.24H (FP) PO SCH ×2 (10:39→21:32)
[2017-12-10] MEDS: PANTOPRAZOLE 40 MG TABLET (FP) PO SCH (10:40)
[2017-12-10] MEDS: LISINOPRIL 20 MG TABLET (FP) PO SCH (10:40)
[2017-12-10] MEDS: NYSTATIN POWDER 100,000 UNITS/GM - 15 GM TOPICAL POWDER TP SCH (10:42)
[2017-12-10] MEDS: ISOSORBIDE DINITRATE 10 MG TABLET (FP) PO SCH ×2 (10:43→17:39)
[2017-12-10] MEDS: APIXABAN 2.5 MG TABLET PO SCH ×2 (10:43→22:54)
[2017-12-10] MEDS: levETIRAcetam 250 MG TABLET (FP) PO SCH ×2 (10:43→22:54)
[2017-12-10] MEDS: CEFTRIAXONE 2 GM in DEXTROSE 5%-WATER 100 ML IVPB SCH (10:45)
[2017-12-10] MEDS: TIOTROPIUM BROMIDE 2.5 MCG (SPIRIVA) RESPIMAT INHALER IH SCH (10:46)
[2017-12-10] MEDS ORDERED: PICC LINE 8 ML FLUSH PROTOCOL IVPUSH PRN (12:56)
--- NOTE | 2017-12-10 13:07 | PN ---
Teaching Attending Note Name of Resident: Erna Newman ATTENDING PHYSICIAN STATEMENT I saw and evaluated the patient. I reviewed the resident's note and discussed the case with the resident. I agree with the resident's findings and plan as documented. SUBJECTIVE: Pt seen and examined in the ICU. Episodes of Vtach overnight. States breathing continues to improve. OBJECTIVE: Vital Signs Period Temp Pulse Resp BP Sys/[place] Pulse Ox Last 24 Hr 97.8 F-98.6 F 61-100 16-22 99-132/59-88 93-97 Intake & Output 12/07/17 12/08/17 12/09/17 12/10/17 23:59 23:59 23:59 23:59 Intake Total 750 1000 370 60 Output Total 1050 1100 1100 400 Balance -300 -100 -730 -340 Weight 71.668 kg 69.354 kg 69.354 kg 59.965 kg Gen: NAD at rest Heart: RRR Lung: distant breath sounds Abd: soft, nontender Ext: no edema CBC, BMP 12/10/17 05:30 12/10/17 05:30 Active Medications Acetaminophen (Tylenol -) 650 mg PO Q6H PRN PRN Reason: FEVER Last Admin: 12/10/17 10:37 Dose: 650 mg Albuterol Sulfate (Ventolin 0.083% Nebulizer Soln -) 1 amp NEB Q6H PRN PRN Reason: SHORT OF BREATH/WHEEZING Apixaban (Eliquis -) 2.5 mg PO BID [facility] Last Admin: 12/10/17 10:43 Dose: 2.5 mg Atorvastatin [place]cium (Lipitor -) 20 mg PO HS [facility] Chlorhexidine Gluconate (Hibiclens For Decolonization -) 1 applic TP HS [facility] Duloxetine HCl (Cymbalta -) 60 mg PO DAILY [facility] Last Admin: 12/10/17 10:36 Dose: 60 mg Fluocinonide (Lidex 0.05% Cream -) 1 applic TP DAILY [facility] IV Flush (Picc Line Flush) 8 ml IVPUSH PRN PRN PRN Reason: Protocol Ceftriaxone Sodium 2 gm/ (Dextrose) 100 mls @ 200 mls/hr IVPB DAILY [facility]; Protocol Last Admin: 12/10/17 10:45 Dose: 200 mls/hr Isosorbide Dinitrate (Isordil -) 10 mg PO BIDISORDIL [facility] Last Admin: 12/10/17 10:43 Dose: 10 mg Levetiracetam (Keppra -) 250 mg PO BID [facility] Last Admin: 12/10/17 10:43 Dose: 250 mg Lisinopril (Prinivil) 20 mg PO DAILY [facility] Last Admin: 12/10/17 10:40 Dose: 20 mg Metoprolol Succinate (Toprol Xl -) 37.5 mg PO BID [facility] Last Admin: 12/10/17 10:39 Dose: 37.5 mg Nystatin (Nystop Powder -) 1 applic TP DAILY [facility] Last Admin: 12/10/17 10:42 Dose: 1 applic Pantoprazole Sodium (Protonix -) 40 mg PO DAILY [facility] Last Admin: 12/10/17 10:40 Dose: 40 mg Prednisone (Deltasone -) 40 mg PO DAILY [facility] Last Admin: 12/10/17 10:43 Dose: 40 mg Pregabalin (Lyrica -) 100 mg PO TID [facility] Quetiapine Fumarate (Seroquel -) 12.5 mg PO AM PRN PRN Reason: ANXIETY Quetiapine Fumarate (Seroquel -) 12.5 mg PO HS [facility] Roflumilast (Daliresp -) 500 mcg PO DAILY [facility] Last Admin: 12/10/17 10:37 Dose: 500 mcg Tiotropium [place] (Spiriva Respimat) 2 puff IH DAILY [facility] Last Admin: 12/10/17 10:46 Dose: 2 puff ASSESSMENT AND PLAN: Acute on Chronic Hypoxic Respiratory Failure Strep Bacteremia Seizures Acute COPD Exacerbation LV Diastolic Dysfunction Atrial Fibrillation Acute on Chronic Renal Failure h/o CVA CAD HTN Hyperlipidemia - continue antibiotics, will need PICC line - prednisone taper - inhaled bronchodilators - O2 to keep Spo2 >90% - monitor urine output, creatinine - rate control - continue anticoagulation - telemetry monitoring
--- NOTE | 2017-12-10 14:18 | PN ---
Physical Exam: SUBJECTIVE: Patient is a 77 y/o male with a history of afib, HTN, HLD, CAD, COPD, DM, PAD, AAA who is here for acute hypoxic respiratory failure 2/2 to COPD exacerbation. Patient had episodes of Vtach overnight. Patient will be monitored for another day on tele. Patient has no acute complaints. OBJECTIVE: Vital Signs Temperature 98.6 F 12/10/17 10:00 Pulse Rate 75 12/10/17 12:00 Respiratory Rate 16 12/10/17 12:00 Blood Pressure 107/84 12/10/17 12:00 O2 Sat by Pulse Oximetry (%) 96 12/10/17 09:00 GENERAL: Awake and alert EYES: Pupils equal, round and reactive to light, extraocular movements intact EARS, NOSE, THROAT: Ears normal, nares patent, oropharynx clear without exudates. Moist mucous membranes. LUNGS: lungs clear to auscultation, no accessory muscle use HEART: Regular rate and rhythm, ABDOMEN: Soft, nontender, not distended, LOWER EXTREMITIES: 2+ dp pulses, warm, well-perfused. No calf tenderness. No peripheral edema. SKIN: large hematoma on LUE from wrist and extending up midway of arm, radial pulse intact, ROM intact, hand automatic dispenser mechanic intact CBCD WBC 5.7 K/mm3 (4.0-10.0) 12/10/17 05:30 RBC 3.71 M/mm3 (4.00-5.60) L 12/10/17 05:30 Hgb 10.2 GM/dL (11.7-16.9) L 12/10/17 05:30 Hct 31.7 % (35.4-49) L 12/10/17 05:30 MCV 85.3 fl (80-96) 12/10/17 05:30 MCHC 32.3 g/dl (32.0-35.9) 12/10/17 05:30 RDW 19.4 % (11.9-15.9) H 12/10/17 05:30 Plt Count 142 K/MM3 (134-434) 12/10/17 05:30 MPV 9.5 fl (7.5-11.1) 12/10/17 05:30 CMP Sodium 140 mmol/L (136-145) 12/10/17 05:30 Potassium 4.0 mmol/L (3.5-5.1) 12/10/17 05:30 Chloride 107 mmol/L (98-107) 12/10/17 05:30 Carbon Dioxide 26 mmol/L (21-32) 12/10/17 05:30 Anion Gap 7 MMOL/L (8-16) L 12/10/17 05:30 BUN 31 mg/dL (7-18) H 12/10/17 05:30 Creatinine 0.9 mg/dL (0.55-1.3) 12/10/17 05:30 Creat Clearance w eGFR > 60 (>60) 12/10/17 05:30 Calcium 7.6 mg/dL (8.5-10.1) L 12/10/17 05:30 Total Bilirubin 0.7 mg/dL (0.2-1.0) 12/08/17 05:15 AST 21 U/L (15-37) 12/08/17 05:15 ALT 32 U/L (13-61) 12/08/17 05:15 Alkaline Phosphatase 47 U/L (45-117) 12/08/17 05:15 Total Protein 4.9 g/dl (6.4-8.2) L 12/08/17 05:15 Albumin 2.3 g/dl (3.4-5.0) L 12/08/17 05:15 Active Medications Acetaminophen (Tylenol -) 650 mg PO Q6H PRN PRN Reason: FEVER Last Admin: 12/10/17 10:37 Dose: 650 mg Albuterol Sulfate (Ventolin 0.083% Nebulizer Soln -) 1 amp NEB Q6H PRN PRN Reason: SHORT OF BREATH/WHEEZING Apixaban (Eliquis -) 2.5 mg PO BID [facility] Last Admin: 12/10/17 10:43 Dose: 2.5 mg Atorvastatin Calcium (Lipitor -) 20 mg PO HS [facility] Chlorhexidine Gluconate (Hibiclens For Decolonization -) 1 applic TP HS [facility] Duloxetine HCl (Cymbalta -) 60 mg PO DAILY [facility] Last Admin: 12/10/17 10:36 Dose: 60 mg Fluocinonide (Lidex 0.05% Cream -) 1 applic TP DAILY [facility] IV Flush (Picc Line Flush) 8 ml IVPUSH PRN PRN PRN Reason: Protocol Ceftriaxone Sodium 2 gm/ (Dextrose) 100 mls @ 200 mls/hr IVPB DAILY [facility]; Protocol Last Admin: 12/10/17 10:45 Dose: 200 mls/hr Isosorbide Dinitrate (Isordil -) 10 mg PO BIDISORDIL [facility] Last Admin: 12/10/17 10:43 Dose: 10 mg Levetiracetam (Keppra -) 250 mg PO BID [facility] Last Admin: 12/10/17 10:43 Dose: 250 mg Lisinopril (Prinivil) 20 mg PO DAILY [facility] Last Admin: 12/10/17 10:40 Dose: 20 mg Metoprolol Succinate (Toprol Xl -) 37.5 mg PO BID [facility] Last Admin: 12/10/17 10:39 Dose: 37.5 mg Nystatin (Nystop Powder -) 1 applic TP DAILY [facility] Last Admin: 12/10/17 10:42 Dose: 1 applic Pantoprazole Sodium (Protonix -) 40 mg PO DAILY [facility] Last Admin: 12/10/17 10:40 Dose: 40 mg Prednisone (Deltasone -) 40 mg PO DAILY [facility] Last Admin: 12/10/17 10:43 Dose: 40 mg Pregabalin (Lyrica -) 100 mg PO TID [facility] Quetiapine Fumarate (Seroquel -) 12.5 mg PO AM PRN PRN Reason: ANXIETY Quetiapine Fumarate (Seroquel -) 12.5 mg PO HS [facility] Roflumilast (Daliresp -) 500 mcg PO DAILY [facility] Last Admin: 12/10/17 10:37 Dose: 500 mcg Tiotropium [facility] (Spiriva Respimat) 2 puff IH DAILY [facility] Last Admin: 12/10/17 10:46 Dose: 2 puff ASSESSMENT/PLAN: Patient is a 77 y/o male with a history of afib, HTN, HLD, CAD, COPD, DM, PAD, AAA who is here for acute hypoxic respiratory failure 2/2 to COPD exacerbation. Neuro Seizure like actvity/ vs fall - Neurology Dr. Melo: may be partial seizure - Keppra 250 mg po BID - head CT: no acute intracranial hemorrhage or acute vascular territory infarction - consulted Dr. Zamudio: Continue with Duloxatine 60mg po od, Ativan 1mg IM Q 8hrs PRN for aggressive behaviour - no seizures since being in ICU - EEG completed 12/09/17 Cardio Hypotension : resolved - can give bolus NS if needed afib/ non sustained Vtach overnight - metoprolol 37.5 mg po BID per Dr. Hines - currently rate controlled and stable - Elliquis 2.[address] Gonzales - continue to monitor on tele CAD/HTN - aspirin 81 mg po daily - Isosorbide dinitrate 10 mg po - lipitor 20 mg po hs - lisinopril 20 mg po daily - echo inadequate study tropinemia : resolved - likely demand - f/u Dr. Hines Pulm acute on chronic hypoxic respiratory failure 2/ to COPD exacerbation - CXR: no sign of acute process - patient on oxygen at home - keep oxygen saturation between 88-92 % - unlikely to be a PE, patients hypoxia likely chronic, Patient last CTA 10/18 showed history of emphysema - patient currently anticoagulated - patient on 4L NC COPD - prednisone 40 mg po daily - albuterol q4h - Rofluminast 500 po daily - Spiriva 2 puff daily - patient on prednisone at home Renal - furosemide 20 mg po daily, held for labile blood pressure - monitor I's & O's - f/u Dr. Cassidy MSK Hematoma of LUE - UE doppler: no evidence or arterial dissection or aneyursm , superficial hematomas in LUE - history of AAA repair at [facility] - per vascular Dr. Hendricks and surgery Dr. Palumbo, no evidence of compartment syndrome - monitor hemoglobin - continue PT for ROM and to help edema - keep arm elevated above heart Infectious disease - bcx: Streptococcus Mitis - repeat blood cultures negative - Ceftriaxone ( day 13) - spoke with Dr. Benz, needs two more weeks for a total of four weeks of treatment - PICC line tomorrow, spoke with IR team, do no need to hold anticoagulation GI ppx - protonix 40 mg po daily BPH - tamsulosin .4 mg Endocrine DM - Lyrica 100 mg po TID - A1 C: 6.0 - TSH .12, Free T4:1 DVT ppx - SCD's and elliquis depression - cymbalta 60 mg po daily FEN - diabetic/low sodium diet Dispo: Patient can go to tele, will be monitored one more day before discharge, PICC line tomorrow morning for two more weeks of antibiotics. * DNR/DNI Visit type - Emergency Visit Emergency Visit: No - New Patient This patient is new to me today: No - Critical Care Critical Care patient: Yes Total Critical Care Time (in minutes): 40 Critical Care Statement: The care of this patient involved high complexity decision making to prevent further life threatening deterioration of the patient 's condition and/or to evaluate & treat vital organ system(s) failure or risk of failure.
--- NOTE | 2017-12-10 14:48 | PN ---
Progress Note (short form) - Note Progress Note: ADDENDUM: CANCELING DISCHARGE DUE TO VTACH ON SINGLE ENDING MACHINE OPERATOR WILL KEEP FOR 1 MORE DAY AND INCREASED METOPROLOL TO 37.5MG BID Problem List - Problems (1) Bacteremia Code(s): R78.81 - BACTEREMIA (2) Cardiomyopathy Code(s): I42.9 - CARDIOMYOPATHY, UNSPECIFIED Qualifiers: Cardiomyopathy type: ischemic Qualified Code(s): I25.5 - Ischemic cardiomyopathy (3) Chronic respiratory failure with hypoxia Code(s): J96.11 - CHRONIC RESPIRATORY FAILURE WITH HYPOXIA (4) History of aortic aneurysm repair Code(s): Z98.890 - OTHER SPECIFIED POSTPROCEDURAL STATES; Z86.79 - PERSONAL HISTORY OF OTHER DISEASES OF THE CIRCULATORY SYSTEM (5) History of arterial bypass of lower extremity Code(s): Z95.828 - PRESENCE OF OTHER VASCULAR IMPLANTS AND GRAFTS (6) SOB (shortness of breath) Code(s): R06.02 - SHORTNESS OF BREATH (7) Tachycardia Code(s): R00.0 - TACHYCARDIA, UNSPECIFIED (8) CAD (coronary artery disease) Code(s): I25.10 - ATHSCL HEART DISEASE OF [place] CORONARY ARTERY W/O ANG PCTRS Qualifiers: Coronary Disease-Associated Artery/Lesion type: [place] artery (9) History of permanent cardiac pacemaker placement Code(s): Z95.0 - PRESENCE OF CARDIAC PACEMAKER
[2017-12-10] MEDS: FLUOCINONIDE 0.05% CREAM (60 GM TUBE) TP SCH (16:00)
--- NOTE | 2017-12-10 16:44 | EKG ---
Test Reason : Blood Pressure : / mmHG Vent. Rate : 076 BPM Atrial Rate : 076 BPM P-R Int : 132 ms QRS Dur : 116 ms QT Int : 396 ms P-R-T Axes : 045 263 101 degrees QTc Int : 445 ms Atrial-sensed ventricular-paced rhythm Biventricular pacemaker detected ABNORMAL ECG WHEN COMPARED WITH ECG OF 01-DEC-2017 10:12, PREMATURE VENTRICULAR COMPLEXES ARE NO LONGER PRESENT VENT. RATE HAS DECREASED BY 15 BPM Confirmed by Isaiah Salinas ([id number]) on 12/10/2017 4:43:46 PM Referred By: Confirmed By:Isaiah Salinas
--- NOTE | 2017-12-10 16:58 | PN ---
Progress Note, Physician History of Present Illness: Pt seen and examined at bedside. He is awake and alert. He is tolerating diet. He feels that his breathing is at baseline. - Current Medication List Current Medications: Active Medications Acetaminophen (Tylenol -) 650 mg PO Q6H PRN PRN Reason: FEVER Last Admin: 12/10/17 10:37 Dose: 650 mg Albuterol Sulfate (Ventolin 0.083% Nebulizer Soln -) 1 amp NEB Q6H PRN PRN Reason: SHORT OF BREATH/WHEEZING Apixaban (Eliquis -) 2.5 mg PO BID [facility] Last Admin: 12/10/17 10:43 Dose: 2.5 mg Atorvastatin Calcium (Lipitor -) 20 mg PO HS [facility] Chlorhexidine Gluconate (Hibiclens For Decolonization -) 1 applic TP HS [facility] Duloxetine HCl (Cymbalta -) 60 mg PO DAILY [facility] Last Admin: 12/10/17 10:36 Dose: 60 mg Fluocinonide (Lidex 0.05% Cream -) 1 applic TP DAILY [facility] IV Flush (Picc Line Flush) 8 ml IVPUSH PRN PRN PRN Reason: Protocol Ceftriaxone Sodium 2 gm/ (Dextrose) 100 mls @ 200 mls/hr IVPB DAILY [facility]; Protocol Last Admin: 12/10/17 10:45 Dose: 200 mls/hr Isosorbide Dinitrate (Isordil -) 10 mg PO BIDISORDIL [facility] Last Admin: 12/10/17 10:43 Dose: 10 mg Levetiracetam (Keppra -) 250 mg PO BID [facility] Last Admin: 12/10/17 10:43 Dose: 250 mg Lisinopril (Prinivil) 20 mg PO DAILY [facility] Last Admin: 12/10/17 10:40 Dose: 20 mg Metoprolol Succinate (Toprol Xl -) 37.5 mg PO BID [facility] Last Admin: 12/10/17 10:39 Dose: 37.5 mg Nystatin (Nystop Powder -) 1 applic TP DAILY [facility] Last Admin: 12/10/17 10:42 Dose: 1 applic Pantoprazole Sodium (Protonix -) 40 mg PO DAILY [facility] Last Admin: 12/10/17 10:40 Dose: 40 mg Prednisone (Deltasone -) 40 mg PO DAILY [facility] Last Admin: 12/10/17 10:43 Dose: 40 mg Pregabalin (Lyrica -) 100 mg PO TID [facility] Last Admin: 12/10/17 14:25 Dose: 100 mg Quetiapine Fumarate (Seroquel -) 12.5 mg PO AM PRN PRN Reason: ANXIETY Quetiapine Fumarate (Seroquel -) 12.5 mg PO HS [facility] Roflumilast (Daliresp -) 500 mcg PO DAILY [facility] Last Admin: 12/10/17 10:37 Dose: 500 mcg Tiotropium [place] (Spiriva Respimat) 2 puff IH DAILY [facility] Last Admin: 12/10/17 10:46 Dose: 2 puff - Objective Vital Signs: Vital Signs Temperature 98.7 F 12/10/17 14:00 Pulse Rate 74 12/10/17 16:00 Respiratory Rate 17 12/10/17 16:00 Blood Pressure 114/77 12/10/17 16:00 O2 Sat by Pulse Oximetry (%) 92 L 12/10/17 14:00 Constitutional: Yes: Calm Eyes: Yes: Conjunctiva Clear HENT: Yes: Atraumatic Cardiovascular: Yes: S1, S2 Respiratory: Yes: CTA Bilaterally Gastrointestinal: Yes: Normal Bowel Sounds, Soft Genitourinary: Yes: WNL Musculoskeletal: Yes: WNL Edema: No Neurological: Yes: Oriented Psychiatric: Yes: Oriented Labs: CBC, BMP 12/10/17 05:30 12/10/17 05:30 INR, PTT INR 1.04 (0.83-1.09) 11/27/17 05:30 Problem List - Problems (1) Fall Code(s): W19.XXXA - UNSPECIFIED FALL, INITIAL ENCOUNTER Qualifiers: Encounter type: subsequent encounter Qualified Code(s): W19.XXXD - Unspecified fall, subsequent encounter (2) CAD (coronary artery disease) Code(s): I25.10 - ATHSCL HEART DISEASE OF [place] CORONARY ARTERY W/O ANG PCTRS Qualifiers: Coronary Disease-Associated Artery/Lesion type: [place] artery Associated angina: with stable angina (3) CHF (congestive heart failure) Code(s): I50.9 - HEART FAILURE, UNSPECIFIED (4) CKD (chronic kidney disease) Code(s): N18.9 - CHRONIC KIDNEY DISEASE, UNSPECIFIED Qualifiers: Chronic kidney disease stage: stage 3 (moderate) Qualified Code(s): N18.3 - Chronic kidney disease, stage 3 (moderate) Assessment/Plan Current Medications Generic Name Dose Route Start Last Admin Trade Name Freq PRN Reason Stop Dose Admin Acetaminophen 650 mg 12/10/17 08:06 12/10/17 10:37 Tylenol - PO 650 mg Q6H PRN Administration FEVER Albuterol Sulfate 1 amp 12/10/17 08:06 Ventolin 0.083% Nebulizer Soln - NEB Q6H PRN SHORT OF BREATH/WHEEZING Apixaban 2.5 mg 12/10/17 10:00 12/10/17 10:43 Eliquis - PO 2.5 mg BID DIANNE Administration Atorvastatin Calcium 20 mg 12/10/17 22:00 Lipitor - PO HS [facility] Chlorhexidine Gluconate 1 applic 12/10/17 22:00 Hibiclens For Decolonization - TP HS [facility] Duloxetine HCl 60 mg 12/10/17 10:00 12/10/17 10:36 Cymbalta - PO 60 mg DAILY [facility] Administration Fluocinonide 1 applic 12/10/17 10:00 Lidex 0.05% Cream - TP DAILY [facility] IV Flush 8 ml 12/10/17 12:56 Picc Line Flush IVPUSH PRN PRN Protocol Ceftriaxone Sodium 2 gm/ 100 mls @ 200 mls/hr 12/10/17 10:00 12/10/17 10:45 Dextrose IVPB 200 mls/hr DAILY [facility] Administration Protocol Isosorbide Dinitrate 10 mg 12/10/17 10:00 12/10/17 10:43 Isordil - PO 10 mg BIDISORDIL [facility] Administration Levetiracetam 250 mg 12/10/17 10:00 12/10/17 10:43 Keppra - PO 250 mg BID DI[facility] Administration Lisinopril 20 mg 12/09/17 09:12 12/10/17 10:40 Prinivil PO 20 mg DAILY [facility] Administration Metoprolol Succinate 37.5 mg 12/10/17 10:00 12/10/17 10:39 Toprol Xl - PO 37.5 mg BID DI[facility] Administration Nystatin 1 applic 12/10/17 10:00 12/10/17 10:42 Nystop Powder - TP 1 applic DAILY [facility] Administration Pantoprazole Sodium 40 mg 12/10/17 10:00 12/10/17 10:40 Protonix - PO 40 mg DAILY [facility] Administration Prednisone 40 mg 12/10/17 10:00 12/10/17 10:43 Deltasone - PO 40 mg DAILY [facility] Administration Pregabalin 100 mg 12/10/17 14:00 12/10/17 14:25 Lyrica - PO 100 mg TID [facility] Administration Quetiapine Fumarate 12.5 mg 12/10/17 08:06 Seroquel - PO AM PRN ANXIETY Quetiapine Fumarate 12.5 mg 12/10/17 22:00 Seroquel - PO HS [facility] Roflumilast 500 mcg 12/10/17 10:00 12/10/17 10:37 Daliresp - PO 500 mcg DAILY [facility] Administration Tiotropium [place] 2 puff 12/10/17 10:00 12/10/17 10:46 Spiriva Respimat IH 2 puff DAILY [facility] Administration Impression 1. CKD 2. COPD exacerbation 3. AAA 4. hx CVA 5. a-fib 6. HTN 7. insomnia 8. hypoxic resp failure 9. CAD 10. BPH 12. microscopic hematuria 13. hypoxia Plan - renal function is stable - will see in office - discussed with - cont steve - bp stable
[2017-12-10] MEDS ORDERED: CHLORHEXIDINE GLUCONATE 4% CLEANSER FOR DECOLONIZATION TP SCH (22:00)
[2017-12-10] MEDS ORDERED: QUEtiapine FUMARATE 25 MG TABLET (FP) PO SCH (22:00)
[2017-12-10] MEDS ORDERED: ATORVASTATIN CA 20 MG TABLET (FP) PO SCH (22:00)
[2017-12-11] MEDS: PREGABALIN 100 MG CAPSULE PO SCH ×2 (05:32→13:26)
[2017-12-11 06:41] LABS: HEMATOCRIT 31.6 % (35.4-49); HEMOGLOBIN 10.2 GM/dL (11.7-16.9); MCH 27.7 pg (25.7-33.7); MCHC 32.3 g/dl (32.0-35.9); MEAN CELL VOLUME 85.6 fl (80-96); MEAN PLT VOLUME 9.8 fl (7.5-11.1); PLATELET COUNT 139 K/MM3 (134-434); RDW 19.7 % (11.9-15.9); WHITE BLOOD COUNT 5.1 K/mm3 (4.0-10.0)
[2017-12-11 06:55] LABS: ALBUMIN 2.3 g/dl (3.4-5.0); ANION GAP 6 MMOL/L (8-16); BLOOD UREA NITROGEN 28 mg/dL (7-18); CALCIUM 7.9 mg/dL (8.5-10.1); CHLORIDE 107 mmol/L (98-107); CO2 26 mmol/L (21-32); GLUCOSE,RANDOM 85 mg/dL (74-106); MAGNESIUM 2.1 mg/dL (1.8-2.4); POTASSIUM 4.3 mmol/L (3.5-5.1); SODIUM 139 mmol/L (136-145)
[2017-12-11 07:00] LABS: ALK PHOS 49 U/L (45-117); BILIRUBIN,TOTAL 0.5 mg/dL (0.2-1); CREATININE 0.8 mg/dL (0.55-1.3); PHOSPHOROUS 3.1 mg/dL (2.5-4.9); SGOT/AST 18 U/L (15-37); SGPT/ALT 28 U/L (13-61); TOT PROT 4.8 g/dl (6.4-8.2)
--- NOTE | 2017-12-11 08:35 | PN ---
Progress Note, Physician Chief Complaint: TELE: reviewed, no further significant runs of NSVT with increased dose of Toprol Alert, oriented no distress Denies chest pain or SOB - Current Medication List Current Medications: Active Medications Acetaminophen (Tylenol -) 650 mg PO Q6H PRN PRN Reason: FEVER Last Admin: 12/10/17 10:37 Dose: 650 mg Albuterol Sulfate (Ventolin 0.083% Nebulizer Soln -) 1 amp NEB Q6H PRN PRN Reason: SHORT OF BREATH/WHEEZING Apixaban (Eliquis -) 2.5 mg PO BID [facility] Last Admin: 12/10/17 22:54 Dose: 2.5 mg Atorvastatin Calcium (Lipitor -) 20 mg PO HS [facility] Last Admin: 12/10/17 21:33 Dose: 20 mg Chlorhexidine Gluconate (Hibiclens For Decolonization -) 1 applic TP HS [facility] Last Admin: 12/10/17 22:54 Dose: 1 applic Duloxetine HCl (Cymbalta -) 60 mg PO DAILY [facility] Last Admin: 12/10/17 10:36 Dose: 60 mg Fluocinonide (Lidex 0.05% Cream -) 1 applic TP DAILY [facility] Last Admin: 12/10/17 16:00 Dose: 1 applic IV Flush (Picc Line Flush) 8 ml IVPUSH PRN PRN PRN Reason: Protocol Ceftriaxone Sodium 2 gm/ (Dextrose) 100 mls @ 200 mls/hr IVPB DAILY [facility]; Protocol Last Admin: 12/10/17 10:45 Dose: 200 mls/hr Isosorbide Dinitrate (Isordil -) 10 mg PO BIDISORDIL [facility] Last Admin: 12/10/17 17:39 Dose: 10 mg Levetiracetam (Keppra -) 250 mg PO BID [facility] Last Admin: 12/10/17 22:54 Dose: 250 mg Lisinopril (Prinivil) 20 mg PO DAILY [facility] Last Admin: 12/10/17 10:40 Dose: 20 mg Metoprolol Succinate (Toprol Xl -) 37.5 mg PO BID [facility] Last Admin: 12/10/17 21:32 Dose: 37.5 mg Nystatin (Nystop Powder -) 1 applic TP DAILY [facility] Last Admin: 12/10/17 10:42 Dose: 1 applic Pantoprazole Sodium (Protonix -) 40 mg PO DAILY [facility] Last Admin: 12/10/17 10:40 Dose: 40 mg Prednisone (Deltasone -) 30 mg PO DAILY [facility] Pregabalin (Lyrica -) 100 mg PO TID [facility] Last Admin: 12/11/17 05:32 Dose: 100 mg Quetiapine Fumarate (Seroquel -) 12.5 mg PO AM PRN PRN Reason: ANXIETY Quetiapine Fumarate (Seroquel -) 12.5 mg PO HS [facility] Last Admin: 12/10/17 21:35 Dose: 12.5 mg Roflumilast (Daliresp -) 500 mcg PO DAILY [facility] Last Admin: 12/10/17 10:37 Dose: 500 mcg Tiotropium [place] (Spiriva Respimat) 2 puff IH DAILY [facility] Last Admin: 12/10/17 10:46 Dose: 2 puff - Objective Vital Signs: Vital Signs Temperature 98.2 F 12/11/17 02:00 Pulse Rate 61 12/11/17 07:34 Respiratory Rate 15 12/11/17 07:34 Blood Pressure 129/90 12/11/17 07:34 O2 Sat by Pulse Oximetry (%) 100 12/11/17 07:33 Constitutional: Yes: No Distress, Calm Cardiovascular: Yes: Regular Rate and Rhythm (paced) Respiratory: Yes: Other (decreased breath sounds, no active wheezing.) Gastrointestinal: Yes: Soft Edema: No Neurological: Yes: Alert, Oriented Labs: CBC, BMP 12/11/17 05:30 12/11/17 05:30 INR, PTT INR 1.04 (0.83-1.09) 11/27/17 05:30 Laboratory Tests 12/11/17 12/11/17 05:30 05:30 WBC 5.1 Hgb 10.2 L Plt Count 139 Sodium 139 Potassium 4.3 BUN 28 H Creatinine 0.8 AST 18 ALT 28 Alkaline Phosphatase 49 - ....Imaging EKG: Image Reviewed (Paced, underlying AF. Short runs NSVT, overall improved after increase in BB) Assessment/Plan IMP: ASHD with chronic angina- deemed not a candidate for cath due to extensive and diffuse aortic calcifications- elevated risk for stroke Anginal episodes during period of hypotension- decreased coronary perfusion: Now Resolved. Hypotension secondary to volume depletion: resolved. NSVT- chronic HTN PAD ICM s/p SCREW MACHINE SETTER-P (refused ICD) Multiple aneurysms AF Traumatic hematoma, upper extremity after fall due to seizure Thrombocytopenia- improved COPD, chronic. Gram + bacteremia: 1 bottle Pancreatic mass REC: 1. AC resumed. Platelets improved. LUE hematoma improved. H/H stable.Pancreatic mass to be d/w patient/family. Cont. Eliquis adjusted for renal fxn. 2. Serial cultures have been negative. WBC is down. Afebrile. Duration of abx as per ID. Patient would be at elevated risk for GOPI due to his hypoxia and respiratory status. 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 He is not a surgical candidate. Plan d/w and patient who agree. 3. Increased Toprol to 37.5mg BID for NSVT: keep K+>4 and Mg2+>2. Patient refused ICD, opted for SCREW MACHINE SETTER-P. Try to minimize use of albuterol as this may contribute to tachycardia and V-ectopy. 4. Hypotension resolved with IVF and d/c of diuretics. Amlodipine discontinued. Renal fx remains stable. 5. Mild elevation TnI with normal CK: probably due to relative hypotension causing underperfusion of coronaries in background of underlying CAD. No further angina for >72 hours with normalization of BP. Stable for discharge from CV standpoint.
[2017-12-11] MEDS ORDERED: DEXTROSE 5%-WATER 100 ML IVPB ONE (09:28)
[2017-12-11] MEDS ORDERED: PT OWN MED DRAWER 7, Y5N ONE ×2 (09:28→17:42)
--- NOTE | 2017-12-11 09:37 | PN ---
Progress Note (short form) - Note Progress Note: LEFT UPPER EXTREMITY EDEMA, WARM TO TOUCH ECHYMOSIS ORDERING CT UPPER EXTREMITY W/O CONTRAST TO RULE OUT HIDDEN ABSCESS VS HEMATOM ALSO DOPPLER LEFT UPPER EXTREMITY R/O DVT VASX SURGERY FOLLOW UP Problem List - Problems (1) Bacteremia Code(s): R78.81 - BACTEREMIA (2) Cardiomyopathy Code(s): I42.9 - CARDIOMYOPATHY, UNSPECIFIED Qualifiers: Cardiomyopathy type: ischemic Qualified Code(s): I25.5 - Ischemic cardiomyopathy (3) Chronic respiratory failure with hypoxia Code(s): J96.11 - CHRONIC RESPIRATORY FAILURE WITH HYPOXIA (4) History of aortic aneurysm repair Code(s): Z98.890 - OTHER SPECIFIED POSTPROCEDURAL STATES; Z86.79 - PERSONAL HISTORY OF OTHER DISEASES OF THE CIRCULATORY SYSTEM (5) History of arterial bypass of lower extremity Code(s): Z95.828 - PRESENCE OF OTHER VASCULAR IMPLANTS AND GRAFTS (6) SOB (shortness of breath) Code(s): R06.02 - SHORTNESS OF BREATH (7) Tachycardia Code(s): R00.0 - TACHYCARDIA, UNSPECIFIED (8) CAD (coronary artery disease) Code(s): I25.10 - ATHSCL HEART DISEASE OF [place] CORONARY ARTERY W/O ANG PCTRS Qualifiers: Coronary Disease-Associated Artery/Lesion type: [place] artery (9) History of permanent cardiac pacemaker placement Code(s): Z95.0 - PRESENCE OF CARDIAC PACEMAKER
[2017-12-11] MEDS: DULoxetine HCL 30 MG CAPSULE.DR (FP) PO SCH (09:39)
[2017-12-11] MEDS: ROFLUMILAST 500 MCG TABLET PO SCH (09:40)
[2017-12-11] MEDS: APIXABAN 2.5 MG TABLET PO SCH (09:46)
[2017-12-11] MEDS: LISINOPRIL 20 MG TABLET (FP) PO SCH (09:47)
[2017-12-11] MEDS: ISOSORBIDE DINITRATE 10 MG TABLET (FP) PO SCH ×2 (09:47→17:43)
[2017-12-11] MEDS: levETIRAcetam 250 MG TABLET (FP) PO SCH (09:47)
[2017-12-11] MEDS: PANTOPRAZOLE 40 MG TABLET (FP) PO SCH (09:48)
[2017-12-11] MEDS: metoPROLOL SUCCINATE 25 MG TAB.SR.24H (FP) PO SCH (09:49)
[2017-12-11] MEDS: TIOTROPIUM BROMIDE 2.5 MCG (SPIRIVA) RESPIMAT INHALER IH SCH (09:49)
[2017-12-11] MEDS: CEFTRIAXONE 2 GM in DEXTROSE 5%-WATER 100 ML IVPB SCH (09:49)
[2017-12-11] MEDS: NYSTATIN POWDER 100,000 UNITS/GM - 15 GM TOPICAL POWDER TP SCH (09:51)
[2017-12-11] MEDS: FLUOCINONIDE 0.05% CREAM (60 GM TUBE) TP SCH (09:51)
[2017-12-11] MEDS ORDERED: predniSONE 20 MG TABLET (UD) PO SCH (10:00)
--- NOTE | 2017-12-11 11:09 | PN ---
Physical Exam: SUBJECTIVE: Patient is a 77 y/o male with a history of afib, HTN, HLD, CAD, COPD, DM, PAD, AAA who is here for acute hypoxic respiratory failure 2/2 to COPD exacerbation. Patient had another episode of Vtach overnight. Patient has no acute complaints , due to get PICC line today. OBJECTIVE: Vital Signs Temperature 98.6 F 12/11/17 10:00 Pulse Rate 75 12/11/17 10:00 Respiratory Rate 18 12/11/17 10:00 Blood Pressure 132/80 12/11/17 10:00 O2 Sat by Pulse Oximetry (%) 100 12/11/17 07:33 GENERAL: Awake and alert EYES: Pupils equal, round and reactive to light, extraocular movements intact LUNGS: lungs clear to auscultation, no accessory muscle use HEART: Regular rate and rhythm, ABDOMEN: Soft, nontender, not distended, LOWER EXTREMITIES: 2+ dp pulses, warm, well-perfused. No calf tenderness. No peripheral edema. 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, two hard consolidations under upper arm CBCD WBC 5.1 K/mm3 (4.0-10.0) 12/11/17 05:30 RBC 3.70 M/mm3 (4.00-5.60) L 12/11/17 05:30 Hgb 10.2 GM/dL (11.7-16.9) L 12/11/17 05:30 Hct 31.6 % (35.4-49) L 12/11/17 05:30 MCV 85.6 fl (80-96) 12/11/17 05:30 MCHC 32.3 g/dl (32.0-35.9) 12/11/17 05:30 RDW 19.7 % (11.9-15.9) H 12/11/17 05:30 Plt Count 139 K/MM3 (134-434) 12/11/17 05:30 MPV 9.8 fl (7.5-11.1) 12/11/17 05:30 CMP Sodium 139 mmol/L (136-145) 12/11/17 05:30 Potassium 4.3 mmol/L (3.5-5.1) 12/11/17 05:30 Chloride 107 mmol/L (98-107) 12/11/17 05:30 Carbon Dioxide 26 mmol/L (21-32) 12/11/17 05:30 Anion Gap 6 MMOL/L (8-16) L 12/11/17 05:30 BUN 28 mg/dL (7-18) H 12/11/17 05:30 Creatinine 0.8 mg/dL (0.55-1.3) 12/11/17 05:30 Creat Clearance w eGFR > 60 (>60) 12/11/17 05:30 Calcium 7.9 mg/dL (8.5-10.1) L 12/11/17 05:30 Total Bilirubin 0.5 mg/dL (0.2-1) 12/11/17 05:30 AST 18 U/L (15-37) 12/11/17 05:30 ALT 28 U/L (13-61) 12/11/17 05:30 Alkaline Phosphatase 49 U/L (45-117) 12/11/17 05:30 Total Protein 4.8 g/dl (6.4-8.2) L 12/11/17 05:30 Albumin 2.3 g/dl (3.4-5.0) L 12/11/17 05:30 Active Medications Acetaminophen (Tylenol -) 650 mg PO Q6H PRN PRN Reason: FEVER Last Admin: 12/10/17 10:37 Dose: 650 mg Albuterol Sulfate (Ventolin 0.083% Nebulizer Soln -) 1 amp NEB Q6H PRN PRN Reason: SHORT OF BREATH/WHEEZING Apixaban (Eliquis -) 2.5 mg PO BID [facility] Last Admin: 12/11/17 09:46 Dose: 2.5 mg Atorvastatin Calcium (Lipitor -) 20 mg PO HS [facility] Last Admin: 12/10/17 21:33 Dose: 20 mg Chlorhexidine Gluconate (Hibiclens For Decolonization -) 1 applic TP HS [facility] Last Admin: 12/10/17 22:54 Dose: 1 applic Duloxetine HCl (Cymbalta -) 60 mg PO DAILY [facility] Last Admin: 12/11/17 09:39 Dose: 60 mg Fluocinonide (Lidex 0.05% Cream -) 1 applic TP DAILY [facility] Last Admin: 12/11/17 09:51 Dose: 1 applic IV Flush (Picc Line Flush) 8 ml IVPUSH PRN PRN PRN Reason: Protocol Ceftriaxone Sodium 2 gm/ (Dextrose) 100 mls @ 200 mls/hr IVPB DAILY [facility]; Protocol Last Admin: 12/11/17 09:49 Dose: 200 mls/hr Isosorbide Dinitrate (Isordil -) 10 mg PO BIDISORDIL [facility] Last Admin: 12/11/17 09:47 Dose: 10 mg Levetiracetam (Keppra -) 250 mg PO BID [facility] Last Admin: 12/11/17 09:47 Dose: 250 mg Lisinopril (Prinivil) 20 mg PO DAILY [facility] Last Admin: 12/11/17 09:47 Dose: 20 mg Metoprolol Succinate (Toprol Xl -) 37.5 mg PO BID [facility] Last Admin: 12/11/17 09:49 Dose: 37.5 mg Nystatin (Nystop Powder -) 1 applic TP DAILY [facility] Last Admin: 12/11/17 09:51 Dose: 1 applic Pantoprazole Sodium (Protonix -) 40 mg PO DAILY [facility] Last Admin: 12/11/17 09:48 Dose: 40 mg Prednisone (Deltasone -) 30 mg PO DAILY [facility] Last Admin: 12/11/17 09:44 Dose: 30 mg Pregabalin (Lyrica -) 100 mg PO TID [facility] Last Admin: 12/11/17 05:32 Dose: 100 mg Quetiapine Fumarate (Seroquel -) 12.5 mg PO AM PRN PRN Reason: ANXIETY Quetiapine Fumarate (Seroquel -) 12.5 mg PO HS [facility] Last Admin: 12/10/17 21:35 Dose: 12.5 mg Roflumilast (Daliresp -) 500 mcg PO DAILY [facility] Last Admin: 12/11/17 09:40 Dose: 500 mcg Tiotropium [place] (Spiriva Respimat) 2 puff IH DAILY [facility] Last Admin: 12/11/17 09:49 Dose: 2 puff ASSESSMENT/PLAN: Patient is a 77 y/o male with a history of afib, HTN, HLD, CAD, COPD, DM, PAD, AAA who is here for acute hypoxic respiratory failure 2/2 to COPD exacerbation. Neuro Seizure like actvity/ vs fall - Neurology Dr. Melo: may be partial seizure - Keppra 250 mg po BID - head CT: no acute intracranial hemorrhage or acute vascular territory infarction - consulted Dr. Zamudio: Continue with Duloxatine 60mg po od, Ativan 1mg IM Q 8hrs PRN for aggressive behaviour - no seizures since being in ICU - EEG completed 12/09/17 Cardio Hypotension : resolved - can give bolus NS if needed afib/ non sustained Vtach overnight - metoprolol 37.5 mg po BID per Dr. Hines - currently rate controlled and stable - Elliquis 2.[address] Gonzales - continue to monitor on tele, one episode of vtach overnight CAD/HTN - aspirin 81 mg po daily - Isosorbide dinitrate 10 mg po - lipitor 20 mg po hs - lisinopril 20 mg po daily - echo inadequate study tropinemia : resolved - likely demand - f/u Dr. Flora Kendall acute on chronic hypoxic respiratory failure 2/ to COPD exacerbation - CXR: no sign of acute process - patient on oxygen at home - keep oxygen saturation between 88-92 % - unlikely to be a PE, patients hypoxia likely chronic, Patient last CTA 10/18 showed history of emphysema - patient currently anticoagulated - patient on 4L NC COPD - prednisone 40 mg po daily - albuterol q4h - Rofluminast 500 po daily - Spiriva 2 puff daily - patient on prednisone at home Renal - furosemide 20 mg po daily, held for labile blood pressure - monitor I's & O's - f/u Dr. Ange DÍAZ Hematoma of LUE - UE doppler: no evidence or arterial dissection or aneyursm , superficial hematomas in LUE - history of [facility] at [facility] - per vascular Dr. Hendricks and surgery Dr. Palumbo, no evidence of compartment syndrome - monitor hemoglobin - continue PT for ROM and to help edema - keep arm elevated above heart - repeat UE doppler and UE CT to r/o abscess Infectious disease - bcx: Streptococcus Mitis - repeat blood cultures negative - Ceftriaxone ( day 14) - spoke with Dr. Benz, needs two more weeks for a total of four weeks of treatment - PICC line today, spoke with IR team, do no need to hold anticoagulation GI ppx - protonix 40 mg po daily BPH - tamsulosin .4 mg Endocrine DM - Lyrica 100 mg po TID - A1 C: 6.0 - TSH .12, Free T4:1 DVT ppx - SCD's and elliquis depression - cymbalta 60 mg po daily FEN - diabetic/low sodium diet Dispo: Patient can go to tele, will be monitored one more day before discharge, PICC line tomorrow morning for two more weeks of antibiotics. f/u UE studies to r/o abscess at hematoma on R arm * DNR/DNI Visit type - Emergency Visit Emergency Visit: No - New Patient This patient is new to me today: No - Critical Care Critical Care patient: Yes Total Critical Care Time (in minutes): 40 Critical Care Statement: The care of this patient involved high complexity decision making to prevent further life threatening deterioration of the patient 's condition and/or to evaluate & treat vital organ system(s) failure or risk of failure.
--- NOTE | 2017-12-11 11:38 | PN ---
Teaching Attending Note Name of Resident: Erna Newman ATTENDING PHYSICIAN STATEMENT I saw and evaluated the patient. I reviewed the resident's note and discussed the case with the resident. I agree with the resident's findings and plan as documented. SUBJECTIVE: Pt seen and examined in the ICU. Left arm warm to touch posteriorly. Breathing continues to improve. OBJECTIVE: Vital Signs Period Temp Pulse Resp BP Sys/[place]se Pulse Ox Last 24 Hr 98.2 F-98.8 F 60-90 15-21 87-162/62-96 90-100 Intake & Output 12/08/17 12/09/17 12/10/17 12/11/17 23:59 23:59 23:59 23:59 Intake Total 4789 996 6293 Output Total 1100 1100 1300 200 Balance -100 -730 -280 -200 Weight 69.354 kg 69.354 kg 59.965 kg 68.765 kg Gen: less tachypneic Heart: RRR Lung: distant breath sounds Abd: soft, nontender Ext: LUE hematoma, dependent areas warm to touch CBC, BMP 12/11/17 05:30 12/11/17 05:30 Active Medications Acetaminophen (Tylenol -) 650 mg PO Q6H PRN PRN Reason: FEVER Last Admin: 12/10/17 10:37 Dose: 650 mg Albuterol Sulfate (Ventolin 0.083% Nebulizer Soln -) 1 amp NEB Q6H PRN PRN Reason: SHORT OF BREATH/WHEEZING Apixaban (Eliquis -) 2.5 mg PO BID [facility] Last Admin: 12/11/17 09:46 Dose: 2.5 mg Atorvastatin Calcium (Lipitor -) 20 mg PO HS [facility] Last Admin: 12/10/17 21:33 Dose: 20 mg Chlorhexidine Gluconate (Hibiclens For Decolonization -) 1 applic TP HS [facility] Last Admin: 12/10/17 22:54 Dose: 1 applic Duloxetine HCl (Cymbalta -) 60 mg PO DAILY [facility] Last Admin: 12/11/17 09:39 Dose: 60 mg Fluocinonide (Lidex 0.05% Cream -) 1 applic TP DAILY [facility] Last Admin: 12/11/17 09:51 Dose: 1 applic IV Flush (Picc Line Flush) 8 ml IVPUSH PRN PRN PRN Reason: Protocol Ceftriaxone Sodium 2 gm/ (Dextrose) 100 mls @ 200 mls/hr IVPB DAILY [facility]; Protocol Last Admin: 12/11/17 09:49 Dose: 200 mls/hr Isosorbide Dinitrate (Isordil -) 10 mg PO BIDISORDIL [facility] Last Admin: 12/11/17 09:47 Dose: 10 mg Levetiracetam (Keppra -) 250 mg PO BID [facility] Last Admin: 12/11/17 09:47 Dose: 250 mg Lisinopril (Prinivil) 20 mg PO DAILY [facility] Last Admin: 12/11/17 09:47 Dose: 20 mg Metoprolol Succinate (Toprol Xl -) 37.5 mg PO BID [facility] Last Admin: 12/11/17 09:49 Dose: 37.5 mg Nystatin (Nystop Powder -) 1 applic TP DAILY [facility] Last Admin: 12/11/17 09:51 Dose: 1 applic Pantoprazole Sodium (Protonix -) 40 mg PO DAILY [facility] Last Admin: 12/11/17 09:48 Dose: 40 mg Prednisone (Deltasone -) 30 mg PO DAILY [facility] Last Admin: 12/11/17 09:44 Dose: 30 mg Pregabalin (Lyrica -) 100 mg PO TID [facility] Last Admin: 12/11/17 05:32 Dose: 100 mg Quetiapine Fumarate (Seroquel -) 12.5 mg PO AM PRN PRN Reason: ANXIETY Quetiapine Fumarate (Seroquel -) 12.5 mg PO HS [facility] Last Admin: 12/10/17 21:35 Dose: 12.5 mg Roflumilast (Daliresp -) 500 mcg PO DAILY [facility] Last Admin: 12/11/17 09:40 Dose: 500 mcg Tiotropium [place] (Spiriva Respimat) 2 puff IH DAILY [facility] Last Admin: 12/11/17 09:49 Dose: 2 puff ASSESSMENT AND PLAN: Acute on Chronic Hypoxic Respiratory Failure Strep Bacteremia Seizures Acute COPD Exacerbation LV Diastolic Dysfunction Atrial Fibrillation Acute on Chronic Renal Failure h/o CVA CAD HTN Hyperlipidemia - for CT arm and dopplers - continue antibiotics, will need PICC line - prednisone taper - inhaled bronchodilators - O2 to keep Spo2 >90% - monitor urine output, creatinine - rate control - continue anticoagulation - telemetry monitoring
--- NOTE | 2017-12-11 13:05 | PN ---
Progress Note, Physician History of Present Illness: Pt seen and examined at bedside. He appears comfortable. He denies worsening of SOB. - Current Medication List Current Medications: Active Medications Acetaminophen (Tylenol -) 650 mg PO Q6H PRN PRN Reason: FEVER Last Admin: 12/10/17 10:37 Dose: 650 mg Albuterol Sulfate (Ventolin 0.083% Nebulizer Soln -) 1 amp NEB Q6H PRN PRN Reason: SHORT OF BREATH/WHEEZING Apixaban (Eliquis -) 2.5 mg PO BID [facility] Last Admin: 12/11/17 09:46 Dose: 2.5 mg Atorvastatin Calcium (Lipitor -) 20 mg PO HS [facility] Last Admin: 12/10/17 21:33 Dose: 20 mg Chlorhexidine Gluconate (Hibiclens For Decolonization -) 1 applic TP HS [facility] Last Admin: 12/10/17 22:54 Dose: 1 applic Duloxetine HCl (Cymbalta -) 60 mg PO DAILY [facility] Last Admin: 12/11/17 09:39 Dose: 60 mg Fluocinonide (Lidex 0.05% Cream -) 1 applic TP DAILY [facility] Last Admin: 12/11/17 09:51 Dose: 1 applic IV Flush (Picc Line Flush) 8 ml IVPUSH PRN PRN PRN Reason: Protocol Ceftriaxone Sodium 2 gm/ (Dextrose) 100 mls @ 200 mls/hr IVPB DAILY [facility]; Protocol Last Admin: 12/11/17 09:49 Dose: 200 mls/hr Isosorbide Dinitrate (Isordil -) 10 mg PO BIDISORDIL [facility] Last Admin: 12/11/17 09:47 Dose: 10 mg Levetiracetam (Keppra -) 250 mg PO BID [facility] Last Admin: 12/11/17 09:47 Dose: 250 mg Lisinopril (Prinivil) 20 mg PO DAILY [facility] Last Admin: 12/11/17 09:47 Dose: 20 mg Metoprolol Succinate (Toprol Xl -) 37.5 mg PO BID [facility] Last Admin: 12/11/17 09:49 Dose: 37.5 mg Nystatin (Nystop Powder -) 1 applic TP DAILY [facility] Last Admin: 12/11/17 09:51 Dose: 1 applic Pantoprazole Sodium (Protonix -) 40 mg PO DAILY [facility] Last Admin: 12/11/17 09:48 Dose: 40 mg Prednisone (Deltasone -) 30 mg PO DAILY [facility] Last Admin: 12/11/17 09:44 Dose: 30 mg Pregabalin (Lyrica -) 100 mg PO TID [facility] Last Admin: 12/11/17 05:32 Dose: 100 mg Quetiapine Fumarate (Seroquel -) 12.5 mg PO AM PRN PRN Reason: ANXIETY Quetiapine Fumarate (Seroquel -) 12.5 mg PO HS [facility] Last Admin: 12/10/17 21:35 Dose: 12.5 mg Roflumilast (Daliresp -) 500 mcg PO DAILY [facility] Last Admin: 12/11/17 09:40 Dose: 500 mcg Tiotropium [place] (Spiriva Respimat) 2 puff IH DAILY [facility] Last Admin: 12/11/17 09:49 Dose: 2 puff - Objective Vital Signs: Vital Signs Temperature 98.6 F 12/11/17 10:00 Pulse Rate 75 12/11/17 10:00 Respiratory Rate 18 12/11/17 10:00 Blood Pressure 132/80 12/11/17 10:00 O2 Sat by Pulse Oximetry (%) 98 12/11/17 09:00 Constitutional: Yes: Calm Eyes: Yes: Conjunctiva Clear HENT: Yes: Atraumatic Cardiovascular: Yes: S1, S2 Respiratory: Yes: On Nasal O2 Gastrointestinal: Yes: WNL Genitourinary: Yes: WNL Edema: Yes Edema: RUE: 1+ Integumentary: Yes: Bruising Neurological: Yes: Oriented Labs: CBC, BMP 12/11/17 05:30 12/11/17 05:30 INR, PTT INR 1.04 (0.83-1.09) 11/27/17 05:30 Problem List - Problems (1) Fall Code(s): W19.XXXA - UNSPECIFIED FALL, INITIAL ENCOUNTER Qualifiers: Encounter type: subsequent encounter Qualified Code(s): W19.XXXD - Unspecified fall, subsequent encounter (2) CAD (coronary artery disease) Code(s): I25.10 - ATHSCL HEART DISEASE OF [place] CORONARY ARTERY W/O ANG PCTRS Qualifiers: Coronary Disease-Associated Artery/Lesion type: [place] artery Associated angina: with stable angina (3) CHF (congestive heart failure) Code(s): I50.9 - HEART FAILURE, UNSPECIFIED (4) CKD (chronic kidney disease) Code(s): N18.9 - CHRONIC KIDNEY DISEASE, UNSPECIFIED Qualifiers: Chronic kidney disease stage: stage 3 (moderate) Qualified Code(s): N18.3 - Chronic kidney disease, stage 3 (moderate) Assessment/Plan Current Medications Generic Name Dose Route Start Last Admin Trade Name Freq PRN Reason Stop Dose Admin Acetaminophen 650 mg 12/10/17 08:06 12/10/17 10:37 Tylenol - PO 650 mg Q6H PRN Administration FEVER Albuterol Sulfate 1 amp 12/10/17 08:06 Ventolin 0.083% Nebulizer Soln - NEB Q6H PRN SHORT OF BREATH/WHEEZING Apixaban 2.5 mg 12/10/17 10:00 12/11/17 09:46 Eliquis - PO 2.5 mg BID DIANNE Administration Atorvastatin Calcium 20 mg 12/10/17 22:00 12/10/17 21:33 Lipitor - PO 20 mg HS [facility] Administration Chlorhexidine Gluconate 1 applic 12/10/17 22:00 12/10/17 22:54 Hibiclens For Decolonization - TP 1 applic HS [facility] Administration Duloxetine HCl 60 mg 12/10/17 10:00 12/11/17 09:39 Cymbalta - PO 60 mg DAILY [facility] Administration Fluocinonide 1 applic 12/10/17 10:00 12/11/17 09:51 Lidex 0.05% Cream - TP 1 applic DAILY [facility] Administration IV Flush 8 ml 12/10/17 12:56 Picc Line Flush IVPUSH PRN PRN Protocol Ceftriaxone Sodium 2 gm/ 100 mls @ 200 mls/hr 12/10/17 10:00 12/11/17 09:49 Dextrose IVPB 200 mls/hr DAILY [facility] Administration Protocol Isosorbide Dinitrate 10 mg 12/10/17 10:00 12/11/17 09:47 Isordil - PO 10 mg BIDISORDIL [facility] Administration Levetiracetam 250 mg 12/10/17 10:00 12/11/17 09:47 Keppra - PO 250 mg BID [facility] Administration Lisinopril 20 mg 12/09/17 09:12 12/11/17 09:47 Prinivil PO 20 mg DAILY [facility] Administration Metoprolol Succinate 37.5 mg 12/10/17 10:00 12/11/17 09:49 Toprol Xl - PO 37.5 mg BID [facility] Administration Nystatin 1 applic 12/10/17 10:00 12/11/17 09:51 Nystop Powder - TP 1 applic DAILY [facility] Administration Pantoprazole Sodium 40 mg 12/10/17 10:00 12/11/17 09:48 Protonix - PO 40 mg DAILY [facility] Administration Prednisone 30 mg 12/11/17 10:00 12/11/17 09:44 Deltasone - PO 30 mg DAILY [facility] Administration Pregabalin 100 mg 12/10/17 14:00 12/11/17 05:32 Lyrica - PO 100 mg TID [facility] Administration Quetiapine Fumarate 12.5 mg 12/10/17 08:06 Seroquel - PO AM PRN ANXIETY Quetiapine Fumarate 12.5 mg 12/10/17 22:00 12/10/17 21:35 Seroquel - PO 12.5 mg HS [facility] Administration Roflumilast 500 mcg 12/10/17 10:00 12/11/17 09:40 Daliresp - PO 500 mcg DAILY [facility] Administration Tiotropium [place] 2 puff 12/10/17 10:00 12/11/17 09:49 Spiriva Respimat IH 2 puff DAILY [facility] Administration Impression 1. CKD 2. COPD exacerbation 3. AAA 4. hx CVA 5. a-fib 6. HTN 7. insomnia 8. hypoxic resp failure 9. CAD 10. BPH 12. microscopic hematuria 13. hypoxia Plan - cont steve - doppler negative - wound care to hematoma - abx per ID - monitor renal function - cont steve
--- NOTE | 2017-12-11 15:13 | PN ---
Progress Note (short form) - Note Progress Note: Vascular Surgery Pt seen and examined. Left arm looks good. discoloration due to hematoma. Palpable brachial and radial pulse. Good motor strength. cleared for DC. Can follow up in wound care clinic Keanu Hendricks DO
[2017-12-11 16:45] VITALS: BP 128/82; PULSE 68; TEMP 98.5
--- NOTE | 2017-12-11 17:29 | DS ---
Physical Examination Vital Signs: Vital Signs Temperature 98.5 F 12/11/17 15:00 Pulse Rate 68 12/11/17 15:00 Respiratory Rate 19 12/11/17 15:00 Blood Pressure 128/82 12/11/17 15:00 O2 Sat by Pulse Oximetry (%) 98 12/11/17 09:00 Constitutional: Yes: Mild Distress Cardiovascular: Yes: Pulse Irregular Respiratory: Yes: Diminished, On Nasal O2 Gastrointestinal: Yes: WNL Renal/: Yes: Incontinence Musculoskeletal: Yes: Muscle Weakness Extremities: Yes: Other Edema: Yes Integumentary: Yes: Bruising (lue tenderness and echymosis hematoma), Erythema Wound/Incision: Yes: Open to air, Reddened, Excoriated Neurological: Yes: Confusion ...Motor Strength: LUE, LLE, RLE Psychiatric: Yes: Other Labs: CBC, BMP 12/11/17 05:30 12/11/17 05:30 Discharge Summary Reason For Visit: FALL Current Active Problems Bacteremia (Acute) Fall (Acute) Hematoma (Acute) Hypotension (Acute) Leukocytosis (leucocytosis) (Acute) Seizure (Acute) Traumatic hematoma of left upper arm (Acute) Procedures: Principal: ct scan labs Hospital Course: ADMITTED FOR COPD/CHF ACUTE ON CHRONIC EXACERBATION WITH RESP FAILURE, PNA/ CELLULITS REFUSING SNF. GO HOME WITH VNS AND 14 DAYS OF CEFTRIAXONE 2GM DAILY VIA PICC LINE Condition: Guarded - Instructions Diet, Activity, Other Instructions: LOW SODIUM WILL NEED SLOW PREDNISONE TAPER PHYSICAL THERAPY AIRVO NEEDED WOUND CARE CLINIC DR WOLF LEFT ARM HEMATOMA SEE DR CANAS YOUR PMD IN 2-3 DAYS, PLEASE CALL HER TODAY AND LET HER KNOW YOU ARE HOME. Referrals: Xavier Escamilla MD [Primary Care Provider] - Disposition: VNS/HOME HEALTH CARE - Home Medications Comprehensive Discharge Medication List: Ambulatory Orders Albuterol 0.083% Nebulizer [place]uki [Ventolin 0.083% Nebulizer Soln -] 1 neb NEB QID 11/08/17 Aspirin [Ecotrin] 81 mg PO DAILY 11/08/17 Budesonide/Formeterol Fumarate [SYMBICORT 160/4.5mcg -] 1 inh PO BID 11/08/17 Duloxetine HCl [Cymbalta -] 60 mg PO DAILY 11/08/17 Ferrous Sulfate 325 mg PO DAILY 11/08/17 Fluocinonide 0.05% Cream [Lidex 0.05% Cream -] 1 applic TP DAILY 11/08/17 Isosorbide Dinitrate [Isordil -] 20 mg PO BID 11/08/17 Lovastatin 10 mg PO HS 11/08/17 Pantoprazole Sodium [Protonix] 40 mg PO DAILY 11/08/17 Pregabalin [Lyrica] 100 mg PO TID 11/08/17 Tamsulosin HCl [Flomax] 0.4 mg PO HS 11/08/17 Furosemide [Lasix -] 40 mg PO DAILY tablet 11/12/17 Lisinopril [Prinivil] 40 mg PO DAILY #0 tablet 11/15/17 Acetaminophen [Tylenol .Regular Strength -] 650 mg PO Q6H PRN tablet 12/10/17 Albuterol 0.083% Nebulizer [place] [Ventolin 0.083% Nebulizer Soln -] 1 amp NEB Q6H PRN amp 12/10/17 Apixaban [Eliquis -] 2.5 mg PO BID tablet 12/10/17 Atorvastatin Ca [Lipitor] 20 mg PO HS tablet 12/10/17 Budesonide/Formeterol Fumarate [SYMBICORT 160/4.5mcg -] 2 puff IH BID inhaler 12/10/17 Lisinopril [Prinivil] 20 mg PO DAILY tablet 12/10/17 Nystatin Powder [Nystop Powder -] 1 applic TP DAILY applic 12/10/17 Quetiapine Fumarate [Seroquel -] 12.5 mg PO AM PRN tablet 12/10/17 Quetiapine Fumarate [Seroquel -] 12.5 mg PO HS tablet 12/10/17 Roflumilast [Daliresp -] 500 mcg PO DAILY tablet 12/10/17 Tiotropium [place] [Spiriva Respimat] 2 puff IH DAILY inhaler 12/10/17 levETIRAcetam [Keppra -] 250 mg PO BID tablet 12/10/17 Apixaban [Eliquis -] 2.5 mg PO BID #60 tablet 12/11/17 Ceftriaxone [Rocephin -] 2 gm IVPB DAILY 14 Days vial 12/11/17 Metoprolol Succinate [Toprol XL -] 50 mg PO BID #60 tab.sr.24h 12/11/17 Prednisone See Taper PO DAILY #100 tablet 12/11/17 Quetiapine Fumarate [Seroquel -] 12.5 mg PO HS #30 tablet 12/11/17 predniSONE [Deltasone -] 30 mg PO DAILY #0 tablet 12/11/17
== END 2017-12-11 20:52 | disposition home health service (06) | DRG 190 ==
LOC: JER 20:42 → JERBED 23:43 → J8W 11-24 04:30 → JICU 11-25 12:07
PROVIDERS: ADMIT Internal Medicine; ATTEND Family Medicine
PROC: 5A09557 Assistance with Respiratory Ventilation, Greater than 96 Consecutive Hours, Continuous Positive Airway Pressure (ICD-10-PCS; 2017-11-25)
PROC: 05HM33Z Insertion of Infusion Device into Right Internal Jugular Vein, Percutaneous Approach (ICD-10-PCS; principal; 2017-12-02)
PROC: 4A00X4Z Measurement of Central Nervous Electrical Activity, External Approach (ICD-10-PCS; 2017-12-09)
PROC: 02HV33Z Insertion of Infusion Device into Superior Vena Cava, Percutaneous Approach (ICD-10-PCS; 2017-12-11)
DX: J44.1 Chronic obstructive pulmonary disease with (acute) exacerbation (principal); J96.21 Acute and chronic respiratory failure with hypoxia; I13.0 Hypertensive heart and chronic kidney disease with heart failure and stage 1 through stage 4 chronic kidney disease, or unspecified chronic kidney disease; J98.11 Atelectasis; R78.81 Bacteremia; N17.9 Acute kidney failure, unspecified; I50.30 Unspecified diastolic (congestive) heart failure; D68.9 Coagulation defect, unspecified; I47.2 Ventricular tachycardia; I69.354 Hemiplegia and hemiparesis following cerebral infarction affecting left non-dominant side; I50.32 Chronic diastolic (congestive) heart failure; N18.3 Chronic kidney disease, stage 3 (moderate); E11.22 Type 2 diabetes mellitus with diabetic chronic kidney disease; I25.10 Atherosclerotic heart disease of native coronary artery without angina pectoris; E78.5 Hyperlipidemia, unspecified; R56.9 Unspecified convulsions; N40.0 Benign prostatic hyperplasia without lower urinary tract symptoms; G47.00 Insomnia, unspecified; I71.4 Abdominal aortic aneurysm, without rupture; R01.1 Cardiac murmur, unspecified; D72.829 Elevated white blood cell count, unspecified; K86.9 Disease of pancreas, unspecified; F32.9 Major depressive disorder, single episode, unspecified; I73.9 Peripheral vascular disease, unspecified; I48.0 Paroxysmal atrial fibrillation; I25.5 Ischemic cardiomyopathy; B95.5 Unspecified streptococcus as the cause of diseases classified elsewhere; D69.6 Thrombocytopenia, unspecified; S40.022A Contusion of left upper arm, initial encounter; W18.30XA Fall on same level, unspecified, initial encounter; Y92.098 Other place in other non-institutional residence as the place of occurrence of the external cause; Z86.718 Personal history of other venous thrombosis and embolism; Z95.0 Presence of cardiac pacemaker; Z95.5 Presence of coronary angioplasty implant and graft; Z96.659 Presence of unspecified artificial knee joint
CPT/HCPCS: 36415; 36569; 36600; 70450-TC; 71045-TC-FY; 73070-TC-LT-FY; 73090-TC-LT-FY; 73200-TC-RT; 77001-TC-FY; 80048; 80053; 81003; 82272; 82542; 82550; 82607; 82747; 82803; 83036; 83605; 83735; 83880; 83930; 84100; 84132; 84439; 84443; 84484; 85014; 85025; 85027; 85610; 85730; 86022; 86850; 86900; 86901; 87040; 87086; 87186; 87420; 93005; 93010; 93306-TC; 93931; 93970-TC; 93971; 94640; 94660; 95816; 97116-GP; 97162-GP; 99283-25; C1751; G0480; J1644; J7030; J7620

== ENCOUNTER 2017-12-19 21:18 | Inpatient (IN) | payer OTHER ==
--- NOTE | 2017-12-19 21:42 | PDOC ---
Attending Attestation - HPI HPI: 12/19/17 23:08 The patient is a 77 year old male with a significant past medical history of A- fib (on xarelto), HTN, HLD, CAD s/p stent s/p pacemaker s/p CABG, PAD, s/p LE bypass, AAA s/p repair, COPD c/b chronic hypoxic respiratory failure, h/o CVA with residual left sided weakness, OA, CKD who presents to the ED s/p unwitnessed fall and seizure like activity earlier today. and daughter states they heard the patient fall from the other room and went into the room and saw the patient with his eyes rolled back and shaking. Patient reports a similar episode in the beginning of November. Patient states he has not missed any of his medications and takes keppra daily. Patient comes into the ED with a C-Collar on by EMS. and daughter state the patient is at his mental baseline . Denies any other symptoms. Documentation prepared by Sabrina Simpson, acting as medical asst for Kennedi Chen DO - Physicial Exam PE: 12/19/17 23:09 Constitutional: Awake, alert, oriented. No acute distress. Head: Normocephalic. Atraumatic Eyes: PERRL. EOMI. Conjunctivae are not pale. ENT: +dry mucous membranes, dry cracked tongue. Posterior pharynx without exudates or erythema. Uvula midline. Neck: + C Collar in place. Cardiovascular: + Pacemaker on left chest. Regular rate. Regular rhythm. S1, S2 regular. Distal pulses are 2+ and symmetric. Pulmonary/Chest: + soft expiratory wheezing at the right base. On 3 liters of O2 at home. No rales or rhonchi. Abdominal: Soft and non-distended. There is no tenderness. No rebound, guarding or rigidity. No organomegaly. No palpable masses. Good bowel sounds. Back: No CVA tenderness. Musculoskeletal: + Ecchymosis from old fall a month ago to the entire left arm, left flank, and left upper back with tenderness. No new ecchymosis to the leg. No edema. No cyanosis. No clubbing. Full range of motion in all extremities. No calf tenderness. Radial/pedal pulses are intact and 2+ bilaterally Skin: Skin is warm and dry. No petechiae. No purpura. Neurological: + At mental baseline. Cranial nerves II-XII are grossly intact. Normal speech. Psychiatric: Good eye contact. Normal interaction, affect and behavior. <Sabrina Simpson - Last Filed: 12/19/17 23:08> - Resident Resident Name: Elizabeth Feliz - ED Attending Attestation I have performed the following: I have examined & evaluated the patient, The case was reviewed & discussed with the resident, I agree w/resident's findings & plan, Exceptions are as noted - Medical Decision Making 12/19/17 21:41 I, Dr. Kennedi Chen, DO, attest that this document has been prepared under my direction and personally reviewed by me in its entirety. I further attest, that it accurately reflects all work, treatment, procedures and medical decision -making performed by me. 12/20/17 00:32 a/p: 77yo male with poss seizure vs syncope - heard a thump and pt was on the floor shaking with eyes rolled back -pt is on elaquis with head injury -pt in a c collar upon arrival - states at baseline MS currently -no loss of control of bowel or bladder, no tongue biting -hx of seizure activity -hx of pacer -will send labs, ekg, cxr, head/c spine ct -will most likely need obs for further eval 12/20/17 02:[address] and c spine ct negative c spine cleared will place in obs for furhter eval 12/20/17 02:09 resident discussed the case with Eloisa from [facility] who accepts the patient to service <Kennedi Chen - Last Filed: 12/20/17 02:10> Heart Score/ECG Review - ECG Intrepretation Comment:: 12/20/17 01:59 v paced at 86, no acute st/t wave findings <Kennedi Chen - Last Filed: 12/20/17 02:10>
--- NOTE | 2017-12-19 21:47 | PDOC ---
History of Present Illness - General Chief Complaint: Injury Stated Complaint: FALL Time Seen by Provider: 12/19/17 21:35 - History of Present Illness Initial Comments: 77yo M with multiple co-morbidities; Afib on Eliquis, HTN, HLD, CAD s/p stent and pacemaker and CABG, BPH, PAD s/p LE bypass, COPD c/b chronic hypoxic respiratory failure, CVA 2012 with left-sided weakness, CHF, Osteoarthritis presenting after fall. The fall was unwitnessed and patients reported that he lost consciousness for a couple minutes. During that time, patient was seen with shaking motion of all four extremities and rolling back of his eyes, consistent with previous seizure earlier this month. Reports pain on top of his head and on his left arm at the site of an aneurysmal dilatation. Denies fever, chills, chest pain, shortness of breath. Past History - Past Medical History Allergies/Adverse Reactions: Allergies Allergy/AdvReac Type Severity Reaction Status Date / Time No Known Allergies Allergy Verified 12/19/17 21:36 Home Medications: Ambulatory Orders Duloxetine HCl [Cymbalta -] 60 mg PO DAILY 11/08/17 Fluocinonide 0.05% Cream [Lidex 0.05% Cream -] 1 applic TP DAILY 11/08/17 Isosorbide Dinitrate [Isordil -] 20 mg PO BID 11/08/17 Lovastatin 10 mg PO HS 11/08/17 Pantoprazole Sodium [Protonix] 40 mg PO DAILY 11/08/17 Pregabalin [Lyrica] 100 mg PO TID 11/08/17 Tamsulosin HCl [Flomax] 0.4 mg PO HS 11/08/17 Acetaminophen [Tylenol .Regular Strength -] 650 mg PO Q6H PRN tablet 12/10/17 Albuterol 0.083% Nebulizer Suki [Ventolin 0.083% Nebulizer Soln -] 1 amp NEB Q6H PRN amp 12/10/17 Atorvastatin Ca [Lipitor] 20 mg PO HS tablet 12/10/17 Lisinopril [Prinivil] 20 mg PO DAILY tablet 12/10/17 Quetiapine Fumarate [Seroquel -] 12.5 mg PO AM PRN tablet 12/10/17 Roflumilast [Daliresp -] 500 mcg PO DAILY tablet 12/10/17 Tiotropium [place] [Spiriva Respimat] 2 puff IH DAILY inhaler 12/10/17 levETIRAcetam [Keppra -] 250 mg PO BID tablet 12/10/17 Apixaban [Eliquis -] 2.5 mg PO BID #60 tablet 12/11/17 Budesonide/Formeterol Fumarate [SYMBICORT 160/4.5mcg -] 2 puff IH BID #1 inhaler 12/11/17 Ceftriaxone [Rocephin -] 2 gm IVPB DAILY 14 Days vial 12/11/17 Metoprolol Tartrate [Lopressor -] 37.5 mg PO BID #90 tablet 12/11/17 Prednisone See Taper PO DAILY #100 tablet 12/11/17 Quetiapine Fumarate [Seroquel -] 12.5 mg PO HS #30 tablet 12/11/17 predniSONE [Deltasone -] 30 mg PO DAILY #0 tablet 12/11/17 Anemia: No Asthma: No Cancer: No Cardiac Disorders: Yes (STENTS 2000/STENT IN 2015) CVA: Yes (01/23/12/DURING TRIPLE AA REPAIR) COPD: Yes CHF: No Dementia: No (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) Diabetes: No GI Disorders: No Disorders: Yes (BPH) HTN: Yes Hypercholesterolemia: Yes Liver Disease: No Seizures: No Thyroid Disease: No - Surgical History Abdominal Surgery: Yes (S/P AAA) Appendectomy: No Cardiac Surgery: Yes (BYPASS 2013, PPM/ AAA REPAIR/2011) Cholecystectomy: No Lung Surgery: No Neurologic Surgery: No Orthopedic Surgery: No - Immunization History Immunization Up to Date: Yes - Suicide/Smoking/Psychosocial Hx Smoking History: Former smoker Have you smoked in the past 12 months: No If you are a former smoker, when did you quit?: 2008 Cigars Per Day: 0 Information on smoking cessation initiated: No Hx Alcohol Use: No Drug/Substance Use Hx: No Substance Use Type: None Hx Substance Use Treatment: No Review of Systems - Review of Systems Comments:: Constitutional: no fever, no chills Cardiovascular: no chest pain, no palpitations Respiratory: no cough, +shortness of breath Gastrointestinal: no abdominal pain, no nausea, no vomiting Musculoskeletal: no myalgia, no arthralgia Skin: +LUE wounds, no itching Neurologic: +headache, +L. sided weakness, no dizziness *Physical Exam - Vital Signs Last Vital Signs Temp Pulse Resp BP Pulse Ox 97.9 F 81 16 101/67 88 L 12/19/17 21:36 12/19/17 21:36 12/19/17 21:36 12/19/17 21:36 12/19/17 21:36 - Physical Exam Comments: General: Awake, alert, and oriented, in no acute distress Head: no signs of trauma Eyes: EOMI, sclera anicteric, pupils asymmetric ENT: Dry mucus membranes, Neck: C-collar present, no midline tenderness, supple Lungs: Lungs clear, tachypnic, on 3.5L NC Cardio: Regular rhythm, S1 and S2 present Abdomen: Soft, nontender Extremities: Normal range of motion, Distal pulses present, Discoloration of left arm with 1cm wound on posterior forearm, and 1 cm wound on posterior upper arm SKIN: Warm, Dry, normal turgor Neurologic: Cranial nerves II through XII grossly intact. Abnormal speech. 4/5 strength on left side, 5/5 on right. Normal sensation. ED Treatment Course - LABORATORY CBC & Chemistry Diagram: 12/19/17 23:15 12/19/17 23:15 Medical Decision Making - Medical Decision Making 77yo M with multiple co-morbidities presenting after fall. -CT head, C-spine, CXR -CBC, CMP, Coags, UA, Blood culture, urine culture, EKG -500ml Fluids 12/19/17 23:03 CT Head and Cspine negative. CXR without interval changes. EKG, rate 86, QTc 469, similar to previous EKG on 12/09/17 Plan to admit to observation for syncope vs. seizure 12/20/17 00:48 Discussed case with Elizabeth You. Will admit to tele obs. 12/20/17 02:03 Laboratory Tests 12/19/17 12/19/17 12/19/17 23:15 23:15 23:15 WBC 5.5 RBC 3.91 L Hgb 11.1 L Hct 34.4 L MCV 87.9 MCH 28.4 MCHC 32.3 RDW 21.0 H Plt Count 163 MPV 9.6 Absolute Neuts (auto) 4.3 Neutrophils % 77.8 Lymphocytes % 12.0 D Monocytes % 8.6 Eosinophils % 1.3 D Basophils % 0.3 D Nucleated RBC % 0 Hypochromia 0 Platelet Estimate Normal Polychromasia 1+ Poikilocytosis 1+ Anisocytosis 2+ Microcytosis 2+ Macrocytosis 0 PT with INR 12.40 INR 1.10 H PTT (Actin FS) 30.6 VBG pH POC VBG pCO2 POC VBG pO2 Mixed VBG HCO3 Sodium 138 Potassium 4.1 Chloride 103 Carbon Dioxide 28 Anion Gap 7 L BUN 27 H Creatinine 1.0 Creat Clearance w eGFR > 60 Random Glucose 106 Calcium 8.0 L Total Bilirubin 0.4 AST 26 ALT 24 Alkaline Phosphatase 51 Creatine Kinase Troponin I Total Protein 5.3 L Albumin 2.6 L 12/19/17 12/19/17 23:15 23:15 WBC RBC Hgb Hct MCV MCH MCHC RDW Plt Count MPV Absolute Neuts (auto) Neutrophils % Lymphocytes % Monocytes % Eosinophils % Basophils % Nucleated RBC % Hypochromia Platelet Estimate Polychromasia Poikilocytosis Anisocytosis Microcytosis Macrocytosis PT with INR INR PTT (Actin FS) VBG pH 7.41 POC VBG pCO2 45.7 POC VBG pO2 35.8 D Mixed VBG HCO3 28.1 H Sodium Potassium Chloride Carbon Dioxide Anion Gap BUN Creatinine Creat Clearance w eGFR Random Glucose Calcium Total Bilirubin AST ALT Alkaline Phosphatase Creatine Kinase 53 Troponin I 0.03 Total Protein Albumin *DC/Admit/Observation/Transfer Diagnosis at time of Disposition: Unwitnessed fall - Discharge Dispostion Condition at time of disposition: Guarded Decision to Admit order: Yes - Referrals - Patient Instructions - Post Discharge Activity
[2017-12-19] MEDS ORDERED: ACETAMINOPHEN 1000 MG/100 ML VIAL (NON FORMULARY) IVPB ONE (22:26)
[2017-12-19] MEDS ORDERED: ALBUTEROL SO4 2.5/IPRATROPIUM 0.5 INH SOL 3 ML VIAL.NEB. NEB ONE ×2 (22:26→22:54)
[2017-12-19] MEDS ORDERED: METOCLOPRAMIDE HCL INJECTION 10 MG/2 ML VIAL IVPUSH ONE (22:26)
[2017-12-19] MEDS ORDERED: SODIUM CHLORIDE 0.9% 1000 ML INFUS.BAG IV ONE (22:28)
[2017-12-19] MEDS ORDERED: METOCLOPRAMIDE HCL INJECTION 10 MG/2 ML VIAL ONE (22:53)
[2017-12-19] MEDS ORDERED: ACETAMINOPHEN INJECTION 100 ML IVPB ONE (22:54)
[2017-12-19 23:37] LABS: BASO % 0.3 % (0-2.0); EOS % 1.3 % (0-4.5); HEMATOCRIT 34.4 % (35.4-49); HEMOGLOBIN 11.1 GM/dL (11.7-16.9); MCH 28.4 pg (25.7-33.7); MCHC 32.3 g/dl (32.0-35.9); MEAN CELL VOLUME 87.9 fl (80-96); MEAN PLT VOLUME 9.6 fl (7.5-11.1); MONO % 8.6 % (3.8-10.2); NEUT % 77.8 % (42.8-82.8); PLATELET COUNT 163 K/MM3 (134-434); RBC 3.91 M/mm3 (4.00-5.60); VENOUS PC02 45.7 mmHg (38-52); VENOUS PH 7.41 (7.32-7.42); VENOUS PO2 35.8 mmHg (28-48); WHITE BLOOD COUNT 5.5 K/mm3 (4.0-10.0)
[2017-12-20 00:02] LABS: INR 1.1 (0.83-1.09); PROTHROMBIN TIME (PATIENT) 12.4 SEC (9.7-13.0)
[2017-12-20 00:04] LABS: ACTIVATED PTT 30.6 SECONDS (25.2-36.5)
[2017-12-20 00:12] LABS: ALBUMIN 2.6 g/dl (3.4-5.0); ALK PHOS 51 U/L (45-117); ANION GAP 7 MMOL/L (8-16); BILIRUBIN,TOTAL 0.4 mg/dL (0.2-1); BLOOD UREA NITROGEN 27 mg/dL (7-18); CHLORIDE 103 mmol/L (98-107); CO2 28 mmol/L (21-32); GLUCOSE,RANDOM 106 mg/dL (74-106); POTASSIUM 4.1 mmol/L (3.5-5.1); SGOT/AST 26 U/L (15-37); SGPT/ALT 24 U/L (13-61); SODIUM 138 mmol/L (136-145); TOT PROT 5.3 g/dl (6.4-8.2)
[2017-12-20 00:25] LABS: ANISOCYTOSIS 2+; MACROCYTOSIS 0; PLATELET ESTIMATE NORMAL
--- NOTE | 2017-12-20 03:40 | HP ---
CHIEF COMPLAINT: fall, ? seizure activity PCP: Juanito HISTORY OF PRESENT ILLNESS: This is a 77 year old male with significant past medical history of CAD, CHF, HTN, CVA, ? seizure, who presented from home s/p fall. As per ED noted, reported shaking of extremities. no longer present at bedside. Pt reports that he fell but does not remember it. He denies injury. Of note, pt was admitted from 11/23-12/11 following similar event. Hospital course was complicated by COPD exac, runs of NSVT, mild DUARTE, strep bacteremia and hematoma to left upper arm. Pt was DC home with PICC line for ceftriaxone 2g x 14 days. He was also DC home on prednisone taper to maintenance 10mg daily. 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 Alcohol: pt denies Drugs: pt denies Family History: unk Allergies No Known Allergies Allergy (Verified 12/19/17 21:36) HOME MEDICATIONS: 3 Medication Instructions Recorded Albuterol 0.083% Nebulizer Suki 1 neb NEB QID 11/08/17 [Ventolin 0.083% Nebulizer Soln -] Aspirin [Ecotrin] 81 mg PO DAILY 11/08/17 Budesonide/Formeterol Fumarate 1 inh PO BID 11/08/17 [SYMBICORT 160/4.5mcg -] Duloxetine HCl [Cymbalta -] 60 mg PO DAILY 11/08/17 Ferrous Sulfate 325 mg PO DAILY 11/08/17 Fluocinonide 0.05% Cream [Lidex 1 applic TP DAILY 11/08/17 0.05% Cream -] Isosorbide Dinitrate [Isordil -] 20 mg PO BID 11/08/17 Lovastatin 10 mg PO HS 11/08/17 Pantoprazole Sodium [Protonix] 40 mg PO DAILY 11/08/17 Pregabalin [Lyrica] 100 mg PO TID 11/08/17 Tamsulosin HCl [Flomax] 0.4 mg PO HS 11/08/17 Furosemide [Lasix -] 40 mg PO DAILY tablet 11/12/17 Lisinopril [Prinivil] 40 mg PO DAILY #0 tablet 11/15/17 Acetaminophen [Tylenol .Regular 650 mg PO Q6H PRN tablet 12/10/17 Strength -] Albuterol 0.083% Nebulizer Suki 1 amp NEB Q6H PRN amp 12/10/17 [Ventolin 0.083% Nebulizer Soln -] Apixaban [Eliquis -] 2.5 mg PO BID tablet 12/10/17 Atorvastatin Ca [Lipitor] 20 mg PO HS tablet 12/10/17 Budesonide/Formeterol Fumarate 2 puff IH BID inhaler 12/10/17 [SYMBICORT 160/4.5mcg -] Lisinopril [Prinivil] 20 mg PO DAILY tablet 12/10/17 Nystatin Powder [Nystop Powder -] 1 applic TP DAILY applic 12/10/17 Quetiapine Fumarate [Seroquel -] 12.5 mg PO AM PRN tablet 12/10/17 Quetiapine Fumarate [Seroquel -] 12.5 mg PO HS tablet 12/10/17 Roflumilast [Daliresp -] 500 mcg PO DAILY tablet 12/10/17 Tiotropium [place] [Spiriva 2 puff IH DAILY inhaler 12/10/17 Respimat] levETIRAcetam [Keppra -] 250 mg PO BID tablet 12/10/17 Apixaban [Eliquis -] 2.5 mg PO BID #60 tablet 12/11/17 Budesonide/Formeterol Fumarate 2 puff IH BID #1 inhaler 12/11/17 [SYMBICORT 160/4.5mcg -] Ceftriaxone [Rocephin -] 2 gm IVPB DAILY 14 Days vial 12/11/17 Metoprolol Tartrate [Lopressor -] 37.5 mg PO BID #90 tablet 12/11/17 Prednisone See Taper PO DAILY #100 tablet 12/11/17 Quetiapine Fumarate [Seroquel -] 12.5 mg PO HS #30 tablet 12/11/17 predniSONE [Deltasone -] 30 mg PO DAILY #0 tablet 12/11/17 REVIEW OF SYSTEMS CONSTITUTIONAL: Absent: fever, chills, diaphoresis, generalized weakness, malaise, loss of appetite, weight change HEENT: Absent: rhinorrhea, nasal congestion, throat pain, throat swelling, difficulty swallowing, mouth swelling, ear pain, eye pain, visual changes CARDIOVASCULAR: Absent: chest pain, syncope, palpitations, irregular heart rate, lightheadedness , peripheral edema RESPIRATORY: Absent: cough, shortness of breath, dyspnea with exertion, orthopnea, wheezing, stridor, hemoptysis GASTROINTESTINAL: Absent: abdominal pain, abdominal distension, nausea, vomiting, diarrhea, constipation, melena, hematochezia GENITOURINARY: Absent: dysuria, frequency, urgency, hesitancy, hematuria, flank pain, genital pain MUSCULOSKELETAL: Absent: myalgia, arthralgia, joint swelling, back pain, neck pain SKIN: Absent: rash, itching, pallor HEMATOLOGIC/IMMUNOLOGIC: Absent: easy bleeding, easy bruising, lymphadenopathy, frequent infections ENDOCRINE: Absent: unexplained weight gain, unexplained weight loss, heat intolerance, cold intolerance NEUROLOGIC: Present: seizure, LOC Absent: headache, focal weakness or paresthesias, dizziness, unsteady gait, mental status changes, bladder or bowel incontinence PSYCHIATRIC: Absent: anxiety, depression, suicidal or homicidal ideation, hallucinations. PHYSICAL EXAMINATION Vital Signs - 24 hr 3 12/19/17 21:36 Temperature 97.9 F Pulse Rate 81 Respiratory 16 Rate Blood Pressure 101/67 O2 Sat by Pulse 88 L Oximetry (%) GENERAL: Awake, alert, and oriented to person and place, in no acute distress. HEAD: Normal with no signs of trauma. EYES: Pupils unequal, left: fixed, irregular shape, right: round and reactive to light, extraocular movements intact, sclera anicteric, conjunctiva clear. No lid lag. EARS, NOSE, THROAT: Ears normal, nares patent, oropharynx clear without exudates. Moist mucous membranes. NECK: Normal range of motion, supple without lymphadenopathy, JVD, or masses. LUNGS: Breath sounds equal, clear to auscultation bilaterally. No wheezes, and no crackles. No accessory muscle use. HEART: Regular rate and rhythm, normal S1 and S2 without murmur, rub or gallop. ABDOMEN: Soft, nontender, not distended, normoactive bowel sounds, no guarding, no rebound, no masses. No hepatomegaly or splenomegaly. left lateral abdomen with fading ecchymosis MUSCULOSKELETAL: Normal range of motion at all joints. No bony deformities or tenderness. No CVA tenderness. UPPER EXTREMITIES: 2+ pulses, warm, well-perfused. No cyanosis. No clubbing. No peripheral edema. left arm with bluish discoloration, mid lateral upper arm with hematoma with open area, + bloody discharge, + boggy, no excessive warmth to arm LOWER EXTREMITIES: 2+ pulses, warm, well-perfused. No calf tenderness. No peripheral edema. NEUROLOGICAL: Cranial nerves II-XII intact. hesitant, slurred speech with some word finding issues PSYCHIATRIC: Cooperative. Good eye contact. Appropriate mood and affect. SKIN: Warm, dry, normal turgor, no rashes or lesions noted, normal capillary refill. Laboratory Results - last 24 hr 3 12/19/17 12/19/17 12/19/17 23:15 23:15 23:15 WBC 5.5 RBC 3.91 L Hgb 11.1 L Hct 34.4 L MCV 87.9 MCH 28.4 MCHC 32.3 RDW 21.0 H Plt Count 163 MPV 9.6 Absolute Neuts (auto) 4.3 Neutrophils % 77.8 Lymphocytes % 12.0 D Monocytes % 8.6 Eosinophils % 1.3 D Basophils % 0.3 D Nucleated RBC % 0 Hypochromia 0 Platelet Estimate Normal Polychromasia 1+ Poikilocytosis 1+ Anisocytosis 2+ Microcytosis 2+ Macrocytosis 0 PT with INR 12.40 INR 1.10 H PTT (Actin FS) 30.6 VBG pH 7.41 POC VBG pCO2 45.7 POC VBG pO2 35.8 D Mixed VBG HCO3 28.1 H Sodium 138 Potassium 4.1 Chloride 103 Carbon Dioxide 28 Anion Gap 7 L BUN 27 H Creatinine 1.0 Creat Clearance w eGFR > 60 Random Glucose 106 Calcium 8.0 L Total Bilirubin 0.4 AST 26 ALT 24 Alkaline Phosphatase 51 Creatine Kinase 53 Troponin I 0.03 Total Protein 5.3 L Albumin 2.6 L ECG Ventricular paced rhythm vent rate 86, QTC 469 Biventricular pacemaker Radiology Reports Chest, portable Impression: See discussion above. No significant interval change or acute lung disease is present Reported By: Tito Duvall MD 12/19/[address] head, non contrast Impression No significant interval change or gross acute intracranial pathology is identified. Reported By: Tito Duvall MD 12/20/[address] C-spine IMPRESSION: Straightening of the cervical spine. The alignment is satisfactory. No gross fracture or subluxation is seen. No jumped facets are identified. Extensive calcified atheromatous plaques in both common carotid arteries and their bifurcation as well as small calcified plaques in both vertebral arteries. 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 Seizure vs syncope - will increase keppra to 500mg daily - neurology consult - admit to tele - trend trops given extensive cardiac history HTN/HLD/CAD - cont home meds Afib - cont eliquis for CVA PPX, Cont metoprolol for rate control CHF - lasix DC on previous admission, no s/s fluid overload, monitor fluid volume status closely COPD - cont symbicort, spiriva - levalbuterol nebs TID ( h/o tachyarrhythmias possibly linked to albuterol use ) - cont daily prednisone 10mg BPH - cont tamsulosin DVT PPX - heparin deferred for now, admitted for observation, start heparin if stay exceeds 48h FEN - tolerating po - bmp in am with Mag - low sodium diet as tolerated Dispo: pt currently requires further observation for management of his emergent condition. Visit type - Emergency Visit Emergency Visit: Yes ED Registration Date: 12/20/17 Care time: The patient presented to the Emergency Department on the above date and was hospitalized for further evaluation of their emergent condition. - New Patient This patient is new to me today: Yes Date on this admission: 12/20/17 - Critical Care Critical Care patient: No Hospitalist Screening - Colonoscopy Questionnaire Colonoscopy Questionnaire: Colonoscopy Questionnaire - Patient: 50 - 75 years old and never had a screening colonoscopy: No History of colon or rectal polyps, or CA: Unknown History of IBD, Crohn's disease or UC: Unknown History of abdominal radiation therapy as a child: Unknown - Relative: 1 with colon or rectal CA, or polyps at age 60 or younger: Unknown Colon or rectal CA diagnosed at age 45 or younger: Unknown Multiple relatives with colon or rectal CA: Unknown - Outcome: Screening Result: Negative Screen
[2017-12-20] MEDS ORDERED: ALBUTEROL SO4 0.083% IH SOL 2.5 MG/3 ML VIAL.NEB. NEB PRN (03:50)
[2017-12-20 04:25] LABS: URINE APPEARANCE CLEAR; URINE BILIRUBIN NEGATIVE (<2.0 mg/dL); URINE COLOR STRAW; URINE GLUCOSE (UA) NEGATIVE (NEGATIVE); URINE KETONE NEGATIVE (NEGATIVE); URINE LEUK ESTERASE NEGATIVE (NEGATIVE); URINE NITRITE NEGATIVE (NEGATIVE); URINE PROTEIN NEGATIVE (NEGATIVE); URINE UROBILINOGEN NEGATIVE mg/dL (0.2-1.0)
[2017-12-20 05:05] LABS: N-TERMINAL BNP 2443.9 pg/ml (5-450)
[2017-12-20 06:53] VITALS: BMI 23.8
[2017-12-20] MEDS: PREGABALIN 100 MG CAPSULE PO SCH ×3 (07:02→21:16)
[2017-12-20 07:17] LABS: BASO % 0.4 % (0-2.0); EOS % 1.3 % (0-4.5); HEMATOCRIT 36.3 % (35.4-49); HEMOGLOBIN 11.5 GM/dL (11.7-16.9); LYMPH % 19.9 % (8-40); MCHC 31.8 g/dl (32.0-35.9); MEAN CELL VOLUME 88.3 fl (80-96); MEAN PLT VOLUME 9.4 fl (7.5-11.1); MONO % 8.7 % (3.8-10.2); NEUT % 69.7 % (42.8-82.8); PLATELET COUNT 111 K/MM3 (134-434); RBC 4.12 M/mm3 (4.00-5.60); RDW 21.2 % (11.9-15.9); WHITE BLOOD COUNT 4.7 K/mm3 (4.0-10.0)
[2017-12-20] MEDS ORDERED: PT OWN MED DRAWER 7, Y5N ONE ×2 (07:57→21:45)
[2017-12-20 08:02] LABS: ANION GAP 12 MMOL/L (8-16); BLOOD UREA NITROGEN 25 mg/dL (7-18); CALCIUM 8.6 mg/dL (8.5-10.1); CHLORIDE 105 mmol/L (98-107); CO2 26 mmol/L (21-32); GLUCOSE,RANDOM 71 mg/dL (74-106); MAGNESIUM 2.3 mg/dL (1.8-2.4); PHOSPHOROUS 3.6 mg/dL (2.5-4.9); POTASSIUM 4.2 mmol/L (3.5-5.1); SODIUM 143 mmol/L (136-145)
[2017-12-20] MEDS: LEVALBUTEROL HCL 0.63 MG/3 ML VIAL.NEB. IH SCH ×3 (08:18→20:30)
[2017-12-20] MEDS ORDERED: DEXTROSE 5%-WATER 100 ML IVPB ONE (08:52)
[2017-12-20] MEDS: TIOTROPIUM BROMIDE 2.5 MCG (SPIRIVA) RESPIMAT INHALER IH SCH (09:00)
[2017-12-20] MEDS: BUDESONIDE/FORMETEROL FUMARATE 160/4.5 mcg INHALER IH SCH ×2 (09:00→21:19)
[2017-12-20] MEDS: METOPROLOL TARTRATE 25 MG TABLET (FP) PO SCH ×2 (09:00→21:15)
[2017-12-20] MEDS: CEFTRIAXONE 2 GM in DEXTROSE 5%-WATER 100 ML IVPB SCH (09:00)
[2017-12-20] MEDS: levETIRAcetam 500 MG TABLET (FP) PO SCH ×2 (09:01→21:16)
[2017-12-20] MEDS: PANTOPRAZOLE 40 MG TABLET (FP) PO SCH (09:02)
[2017-12-20] MEDS: predniSONE 10 MG TABLET (UD) PO SCH (09:02)
[2017-12-20] MEDS: LISINOPRIL 20 MG TABLET (FP) PO SCH (09:02)
[2017-12-20] MEDS: APIXABAN 2.5 MG TABLET PO SCH ×2 (09:02→21:16)
[2017-12-20] MEDS: ISOSORBIDE DINITRATE 20 MG TABLET (FP) PO SCH ×2 (09:02→18:14)
[2017-12-20] MEDS: DULoxetine HCL 30 MG CAPSULE.DR (FP) PO SCH (09:02)
[2017-12-20] MEDS: ROFLUMILAST 500 MCG TABLET PO SCH (09:03)
[2017-12-20] MEDS ORDERED: PATIENT'S OWN MEDICATION (NON-FORMULARY) (Ceftriaxone 2 GM) IVPB SCH (10:00)
--- NOTE | 2017-12-20 10:41 | PN ---
Progress Note, Physician History of Present Illness: 77yM with PMH: AAA s/p repair 2011 with perioperative CVA, TAA (4.9cm on 04/03/17 ), Afib, DVT, CAD s/p CABG and stents, PPM, CHF, COPD, HTN, HLD, BPH, gallstones presented to the ED s/p unwitnessed fall with seizure activity. - Current Medication List Current Medications: Active Medications Acetaminophen (Tylenol -) 650 mg PO Q6H PRN PRN Reason: FEVER Apixaban (Eliquis -) 2.5 mg PO BID [facility] Last Admin: 12/20/17 09:02 Dose: 2.5 mg Atorvastatin Calcium (Lipitor -) 20 mg PO HS [facility] Budesonide/Formoterol Fumarate (Symbicort 160/4.5mcg -) 2 puff IH BID [facility] Last Admin: 12/20/17 09:00 Dose: 2 puff Duloxetine HCl (Cymbalta -) 60 mg PO DAILY [facility] Last Admin: 12/20/17 09:02 Dose: 60 mg Ceftriaxone Sodium 2 gm/ (Dextrose) 100 mls @ 200 mls/hr IVPB DAILY [facility] Last Admin: 12/20/17 09:00 Dose: 200 mls/hr Isosorbide Dinitrate (Isordil -) 20 mg PO BIDISORDIL [facility] Last Admin: 12/20/17 09:02 Dose: 20 mg Levalbuterol HCl (Xopenex) 0.63 mg IH RTID [facility] Last Admin: 12/20/17 08:18 Dose: 0.63 mg Levetiracetam (Keppra -) 500 mg PO BID [facility] Last Admin: 12/20/17 09:01 Dose: 500 mg Lisinopril (Prinivil) 20 mg PO DAILY [facility] Last Admin: 12/20/17 09:02 Dose: 20 mg Metoprolol Tartrate (Lopressor -) 37.5 mg PO BID [facility] Last Admin: 12/20/17 09:00 Dose: 37.5 mg Pantoprazole Sodium (Protonix -) 40 mg PO DAILY [facility] Last Admin: 12/20/17 09:02 Dose: 40 mg Prednisone (Deltasone -) 10 mg PO DAILY [facility] Last Admin: 12/20/17 09:02 Dose: 10 mg Pregabalin (Lyrica -) 100 mg PO TID [facility] Last Admin: 12/20/17 07:02 Dose: 100 mg Quetiapine Fumarate (Seroquel -) 12.5 mg PO HS [facility] Roflumilast (Daliresp -) 500 mcg PO DAILY [facility] Last Admin: 12/20/17 09:03 Dose: 500 mcg Tamsulosin HCl (Flomax -) 0.4 mg PO HS [facility] Tiotropium [place] (Spiriva Respimat) 2 puff IH DAILY [facility] Last Admin: 12/20/17 09:00 Dose: 2 puff - Objective Vital Signs: Vital Signs Temperature 97.5 F L 12/20/17 08:55 Pulse Rate 83 12/20/17 08:55 Respiratory Rate 15 12/20/17 09:00 Blood Pressure 151/93 12/20/17 08:55 O2 Sat by Pulse Oximetry (%) 95 12/20/17 09:00 Cardiovascular: Yes: S1, S2 Respiratory: Yes: Regular, CTA Bilaterally Gastrointestinal: Yes: Normal Bowel Sounds, Soft Edema: No Neurological: Yes: Alert, Oriented Labs: CBC, BMP 12/20/17 05:50 12/20/17 05:50 INR, PTT INR 1.10 (0.83-1.09) H 12/19/17 23:15 Problem List - Problems (1) Seizure Assessment/Plan: - will increase keppra to 500mg daily - neurology consult - admit to tele - [facility] given extensive cardiac history Code(s): R56.9 - UNSPECIFIED CONVULSIONS (2) CAD (coronary artery disease) Assessment/Plan: - cont home meds Code(s): I25.10 - ATHSCL HEART DISEASE OF [place] CORONARY ARTERY W/O ANG PCTRS Qualifiers: Coronary Disease-Associated Artery/Lesion type: [place] artery Associated angina: with stable angina (3) CHF (congestive heart failure) Assessment/Plan: - lasix DC on previous admission, no s/s fluid overload, monitor fluid volume status closely Code(s): I50.9 - HEART FAILURE, UNSPECIFIED (4) COPD (chronic obstructive pulmonary disease) Assessment/Plan: - cont symbicort, spiriva - levalbuterol nebs TID ( h/o tachyarrhythmias possibly linked to albuterol use ) - cont daily prednisone 10mg Code(s): J44.9 - CHRONIC OBSTRUCTIVE PULMONARY DISEASE, UNSPECIFIED Qualifiers: COPD type: COPD with acute exacerbation Qualified Code(s): J44.1 - Chronic obstructive pulmonary disease with (acute) exacerbation (5) Afib Assessment/Plan: - cont eliquis for CVA PPX, Cont metoprolol for rate control Code(s): I48.91 - UNSPECIFIED ATRIAL FIBRILLATION Qualifiers: Atrial fibrillation type: chronic Qualified Code(s): I48.2 - Chronic atrial fibrillation
--- NOTE | 2017-12-20 11:26 | EKG ---
Test Reason : Blood Pressure : / mmHG Vent. Rate : 086 BPM Atrial Rate : 416 BPM P-R Int : 000 ms QRS Dur : 116 ms QT Int : 392 ms P-R-T Axes : 000 264 096 degrees QTc Int : 469 ms POOR DATA QUALITY, INTERPRETATION MAY BE ADVERSELY AFFECTED Ventricular-paced rhythm Biventricular pacemaker detected ABNORMAL ECG WHEN COMPARED WITH ECG OF 09-DEC-2017 17:25, VENT. RATE HAS INCREASED BY 10 BPM Confirmed by MANISH ARREDONDO, KAMALA ([id number]) on 12/20/2017 11:26:13 AM Referred By: Confirmed By:KAMALA HAMMOND MD
[2017-12-20] MEDS: ACETAMINOPHEN 325 MG TABLET (FP) PO PRN (13:15)
--- NOTE | 2017-12-20 19:06 | CONSULT ---
Consult - text type - Consultation Consultation Note: NEUROLOGY CONSULTATION is greatly appreciated: Event reviewed, patient examined. This 77 yo RH man with h/o HTN, Chol, ASHD, SS/P Stents and AFib is maintained on Eliquis and multiple other meds. S/p CVA (s) around 2011 with aphasia, B/L weakness and partial seizures. Was admitted in October after a seizure and fall with left arm hematoma on coumadin. I saw him on 11/30/17 and increased Keppra to 500 BID, but, apparently, Pt resumed 250 BID at home. Now admitted after recurrent seizure and fall. CT of head (reviewed): Large left MCA-territory infarct with encephalomalacia AND old right frontal CVA TONY: Neck supple. No head trauma. No bruits. Cor irreg/irreg. s/p R TKR Improving left arm swelling with persistent discoloration. NEURO: Awake, alert. Non-fluent aphasia. Right homonomous hemianopsia B/L hemiparesis (L>R). Areflexic in legs. B/L [place]. IMP: B/L, chronic, CVA's with residual seizure disorder. SUGGEST: Confirm home keppra dose. Continue keppra 500 mg q 12 hrs for now, but D/C on 750 mg q 12 hrs. Continue eliquis Doubt role of lyrica. Bedside PT and mobilize OO bed to chair. Thank you very much, Salvatore Rodriguez MD
[2017-12-20] MEDS: QUEtiapine FUMARATE 25 MG TABLET (FP) PO SCH (21:15)
[2017-12-20] MEDS: ATORVASTATIN CA 20 MG TABLET (FP) PO SCH (21:16)
[2017-12-20] MEDS: TAMSULOSIN HCL 0.4 MG CAP.ER.24H (FP) PO SCH (21:16)
[2017-12-21] MEDS: PREGABALIN 100 MG CAPSULE PO SCH ×3 (06:10→21:00)
[2017-12-21] MEDS: LEVALBUTEROL HCL 0.63 MG/3 ML VIAL.NEB. IH SCH ×3 (07:36→20:40)
[2017-12-21] MEDS ORDERED: PT OWN MED DRAWER 7, Y5N ONE ×2 (09:02→14:11)
[2017-12-21] MEDS ORDERED: DEXTROSE 5%-WATER 100 ML IVPB ONE ×2 (09:03→12:41)
[2017-12-21] MEDS: LISINOPRIL 20 MG TABLET (FP) PO SCH (11:46)
[2017-12-21] MEDS: ROFLUMILAST 500 MCG TABLET PO SCH (11:46)
[2017-12-21] MEDS: predniSONE 10 MG TABLET (UD) PO SCH (11:47)
[2017-12-21] MEDS: ISOSORBIDE DINITRATE 20 MG TABLET (FP) PO SCH ×2 (11:47→18:04)
[2017-12-21] MEDS: DULoxetine HCL 30 MG CAPSULE.DR (FP) PO SCH (11:47)
[2017-12-21] MEDS: METOPROLOL TARTRATE 25 MG TABLET (FP) PO SCH ×2 (11:48→21:00)
[2017-12-21] MEDS: levETIRAcetam 500 MG TABLET (FP) PO SCH ×2 (11:48→21:00)
[2017-12-21] MEDS: APIXABAN 2.5 MG TABLET PO SCH ×2 (11:48→21:00)
[2017-12-21] MEDS: PANTOPRAZOLE 40 MG TABLET (FP) PO SCH (11:48)
[2017-12-21] MEDS: CEFTRIAXONE 2 GM in DEXTROSE 5%-WATER 100 ML IVPB SCH (11:49)
[2017-12-21] MEDS: TIOTROPIUM BROMIDE 2.5 MCG (SPIRIVA) RESPIMAT INHALER IH SCH (12:10)
[2017-12-21] MEDS: BUDESONIDE/FORMETEROL FUMARATE 160/4.5 mcg INHALER IH SCH ×2 (12:10→21:01)
--- NOTE | 2017-12-21 12:42 | PN ---
Progress Note, Physician History of Present Illness: 77yM with PMH: AAA s/p repair 2011 with perioperative CVA, TAA (4.9cm on 04/03/17 ), Afib, DVT, CAD s/p CABG and stents, PPM, CHF, COPD, HTN, HLD, BPH, gallstones presented to the ED s/p unwitnessed fall with seizure activity. - Current Medication List Current Medications: Active Medications Acetaminophen (Tylenol -) 650 mg PO Q6H PRN PRN Reason: FEVER Last Admin: 12/20/17 13:15 Dose: 650 mg Apixaban (Eliquis -) 2.5 mg PO BID [facility] Last Admin: 12/21/17 11:48 Dose: 2.5 mg Atorvastatin Calcium (Lipitor -) 20 mg PO HS [facility] Last Admin: 12/20/17 21:16 Dose: 20 mg Budesonide/Formoterol Fumarate (Symbicort 160/4.5mcg -) 2 puff IH BID [facility] Last Admin: 12/21/17 12:10 Dose: 2 puff Duloxetine HCl (Cymbalta -) 60 mg PO DAILY [facility] Last Admin: 12/21/17 11:47 Dose: 60 mg Ceftriaxone Sodium 2 gm/ (Dextrose) 100 mls @ 200 mls/hr IVPB DAILY [facility] Last Admin: 12/21/17 11:49 Dose: 200 mls/hr Isosorbide Dinitrate (Isordil -) 20 mg PO BIDISORDIL [facility] Last Admin: 12/21/17 11:47 Dose: 20 mg Levalbuterol HCl (Xopenex) 0.63 mg IH RTID [facility] Last Admin: 12/21/17 07:36 Dose: 0.63 mg Levetiracetam (Keppra -) 500 mg PO BID [facility] Last Admin: 12/21/17 11:48 Dose: 500 mg Lisinopril (Prinivil) 20 mg PO DAILY [facility] Last Admin: 12/21/17 11:46 Dose: 20 mg Metoprolol Tartrate (Lopressor -) 37.5 mg PO BID [facility] Last Admin: 12/21/17 11:48 Dose: 37.5 mg Pantoprazole Sodium (Protonix -) 40 mg PO DAILY [facility] Last Admin: 12/21/17 11:48 Dose: 40 mg Prednisone (Deltasone -) 10 mg PO DAILY [facility] Last Admin: 12/21/17 11:47 Dose: 10 mg Pregabalin (Lyrica -) 100 mg PO TID [facility] Last Admin: 12/21/17 06:10 Dose: 100 mg Quetiapine Fumarate (Seroquel -) 12.5 mg PO HS [facility] Last Admin: 12/20/17 21:15 Dose: 12.5 mg Roflumilast (Daliresp -) 500 mcg PO DAILY [facility] Last Admin: 12/21/17 11:46 Dose: 500 mcg Tamsulosin HCl (Flomax -) 0.4 mg PO HS [facility] Last Admin: 12/20/17 21:16 Dose: 0.4 mg Tiotropium [place] (Spiriva Respimat) 2 puff IH DAILY [facility] Last Admin: 12/21/17 12:10 Dose: 2 puff - Objective Vital Signs: Vital Signs Temperature 97.9 F 12/21/17 09:00 Pulse Rate 88 12/21/17 09:00 Respiratory Rate 18 12/21/17 09:00 Blood Pressure 133/89 12/21/17 09:00 O2 Sat by Pulse Oximetry (%) 92 L 12/21/17 08:24 Cardiovascular: Yes: S1, S2 Respiratory: Yes: Regular, CTA Bilaterally Gastrointestinal: Yes: Normal Bowel Sounds, Soft Labs: CBC, BMP 12/20/17 05:50 12/20/17 05:50 INR, PTT INR 1.10 (0.83-1.09) H 12/19/17 23:15 Problem List - Problems (1) Seizure Assessment/Plan: - will increase keppra to 500mg bid - neurology consult noted - admit to tele - [facility] given extensive cardiac history Code(s): R56.9 - UNSPECIFIED CONVULSIONS (2) CAD (coronary artery disease) Assessment/Plan: - cont home meds Code(s): I25.10 - ATHSCL HEART DISEASE OF [place] CORONARY ARTERY W/O ANG PCTRS Qualifiers: Coronary Disease-Associated Artery/Lesion type: [place] artery Associated angina: with stable angina (3) CHF (congestive heart failure) Assessment/Plan: - lasix DC on previous admission, no s/s fluid overload, monitor fluid volume status closely Code(s): I50.9 - HEART FAILURE, UNSPECIFIED (4) COPD (chronic obstructive pulmonary disease) Assessment/Plan: - cont symbicort, spiriva - levalbuterol nebs TID ( h/o tachyarrhythmias possibly linked to albuterol use ) - cont daily prednisone 10mg Code(s): J44.9 - CHRONIC OBSTRUCTIVE PULMONARY DISEASE, UNSPECIFIED Qualifiers: COPD type: COPD with acute exacerbation Qualified Code(s): J44.1 - Chronic obstructive pulmonary disease with (acute) exacerbation (5) Afib Assessment/Plan: - cont eliquis for CVA PPX, Cont metoprolol for rate control Code(s): I48.91 - UNSPECIFIED ATRIAL FIBRILLATION Qualifiers: Atrial fibrillation type: chronic Qualified Code(s): I48.2 - Chronic atrial fibrillation
--- NOTE | 2017-12-21 12:58 | CON.CARD ---
Consult Consult Specialty:: cardiology Reason for Consultation:: syncope - History of Present Illness Chief Complaint: Pt alert; denies chest pain, dizziness, dyspnea. History of Present Illness: The patient is a 77 year old male with a significant past medical history of A- fib (on xarelto), HTN, HLD, CAD s/p stent s/p pacemaker s/p CABG, PAD, s/p LE bypass, AAA s/p repair, mild thoracic aorta aneurysm (2017 CT), COPD c/b chronic hypoxic respiratory failure, h/o CVA with residual left sided weakness, OA, CKD who presents to the ED s/p unwitnessed fall and seizure like activity earlier today. and daughter states they heard the patient fall from the other room and went into the room and saw the patient with his eyes rolled back and shaking. Patient reports a similar episode in the beginning of November. Patient states he has not missed any of his medications and takes keppra daily. Patient comes into the ED with a C-Collar on by EMS. and daughter state the patient is at his mental baseline . Denies any other symptoms. 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, Seizure Cardio/Vascular: Yes: AFIB, Aneurysm, CAD, CHF, HTN, Hyperlipdemia, Murmur, Other (peripheral artery disease) Pulmonary: Yes: COPD Renal/: Yes: BPH - Past Surgical History Past Surgical History: Yes: AAA Repair, Permanent Pacemaker - Alcohol/Substance Use Hx Alcohol Use: No History of Substance Use: reports: None - Smoking History Smoking history: Former smoker Have you smoked in the past 12 months: No If you are a former smoker, when did you quit?: 2007 - Social History Usual Living Arrangement: With Spouse ADL: Family Assistance History of Recent Travel: No Home Medications - Allergies Allergies/Adverse Reactions: Allergies Allergy/AdvReac Type Severity Reaction Status Date / Time No Known Allergies Allergy Verified 12/19/17 21:36 - Home Medications Home Medications: Ambulatory Orders Duloxetine HCl [Cymbalta -] 60 mg PO DAILY 11/08/17 Fluocinonide 0.05% Cream [Lidex 0.05% Cream -] 1 applic TP DAILY 11/08/17 Isosorbide Dinitrate [Isordil -] 20 mg PO BID 11/08/17 Lovastatin 10 mg PO HS 11/08/17 Pantoprazole Sodium [Protonix] 40 mg PO DAILY 11/08/17 Pregabalin [Lyrica] 100 mg PO TID 11/08/17 Tamsulosin HCl [Flomax] 0.4 mg PO HS 11/08/17 Acetaminophen [Tylenol .Regular Strength -] 650 mg PO Q6H PRN tablet 12/10/17 Albuterol 0.083% Nebulizer Suki [Ventolin 0.083% Nebulizer Soln -] 1 amp NEB Q6H PRN amp 12/10/17 Atorvastatin Ca [Lipitor] 20 mg PO HS tablet 12/10/17 Lisinopril [Prinivil] 20 mg PO DAILY tablet 12/10/17 Quetiapine Fumarate [Seroquel -] 12.5 mg PO AM PRN tablet 12/10/17 Roflumilast [Daliresp -] 500 mcg PO DAILY tablet 12/10/17 Tiotropium [place] [Spiriva Respimat] 2 puff IH DAILY inhaler 12/10/17 levETIRAcetam [Keppra -] 250 mg PO BID tablet 12/10/17 Apixaban [Eliquis -] 2.5 mg PO BID #60 tablet 12/11/17 Budesonide/Formeterol Fumarate [SYMBICORT 160/4.5mcg -] 2 puff IH BID #1 inhaler 12/11/17 Ceftriaxone [Rocephin -] 2 gm IVPB DAILY 14 Days vial 12/11/17 Metoprolol Tartrate [Lopressor -] 37.5 mg PO BID #90 tablet 12/11/17 Prednisone See Taper PO DAILY #100 tablet 12/11/17 Quetiapine Fumarate [Seroquel -] 12.5 mg PO HS #30 tablet 12/11/17 predniSONE [Deltasone -] 30 mg PO DAILY #0 tablet 12/11/17 Review of Systems - Review of Systems Constitutional: reports: Weakness Eyes: reports: No Symptoms HENT: reports: No Symptoms Neck: reports: Decreased ROM Cardiovascular: reports: No Symptoms Respiratory: reports: No Symptoms Gastrointestinal: reports: No Symptoms Genitourinary: reports: No Symptoms Breasts: reports: No Symptoms Reported Musculoskeletal: reports: Extremity Pain (LUE), Muscle Weakness Integumentary: reports: Bruising, Change in Color (left hand and wrist purpuric) Neurological: reports: Seizure, Unsteady Gait, Weakness Psychiatric: reports: No Symptoms - Risk Factors Known Risk Factors: Yes: Age, Gender, Hypercholesterolemia, Hypertension, Physical Inactivity, Prior OK /Emb Stroke, Smoking (former), Other (CAD-->PCI; PAD-->bypass LE) Vital Signs: Vital Signs Temperature 97.9 F 12/21/17 09:00 Pulse Rate 88 12/21/17 09:00 Respiratory Rate 12/21/17 09:00 Blood Pressure 133/89 12/21/17 09:00 O2 Sat by Pulse Oximetry (%) 92 L 12/21/17 08:24 Constitutional: Yes: Anxious Eyes: Yes: WNL HENT: Yes: WNL Neck: Yes: Decreased ROM Respiratory: Yes: WNL Gastrointestinal: Yes: Soft Renal/: No: Anuria Cardiovascular: Yes: Regular Rate and Rhythm JVD: No Carotid Bruit: No Heart Sounds: Yes: S1, Split S2 Murmur: Yes: Systolic Murmur, Grade 1 Musculoskeletal: Yes: Joint Stiffness, Muscle Weakness Extremities: Yes: Cool Edema: Yes Edema: LUE: 1+, LLE: Trace, RLE: Trace Peripheral Pulses WNL: No Peripheral Pulses: 1+ Left Popliteal, 1+ Right Popliteal Integumentary: Yes: Bruising, Other (left arm supported; edematous, purpuric left hand and wrist) Psychiatric: Yes: Alert - Other Data Labs, Other Data: CBC, BMP 12/20/17 05:50 12/20/17 05:50 INR, PTT INR 1.10 (0.83-1.09) H 12/19/17 23:15 Prior Cardiac Procedures: CABG, PTCA with Stent, Other (LE bypass) Imaging - Results Chest X-ray: Image Reviewed (no acute pathology) Cat Scan: Report Reviewed (2017: mild thoracic aorta aneurysm unchanged in size (5.1 cm)) Problem List - Problems (1) CAD (coronary artery disease) Code(s): I25.10 - ATHSCL HEART DISEASE OF [place] CORONARY ARTERY W/O ANG PCTRS Qualifiers: Coronary Disease-Associated Artery/Lesion type: [place] artery Associated angina: with stable angina (2) CKD (chronic kidney disease) Code(s): N18.9 - CHRONIC KIDNEY DISEASE, UNSPECIFIED Qualifiers: Chronic kidney disease stage: stage 3 (moderate) Qualified Code(s): N18.3 - Chronic kidney disease, stage 3 (moderate) (3) Seizure Assessment/Plan: f/u with neurology Code(s): R56.9 - UNSPECIFIED CONVULSIONS (4) History of permanent cardiac pacemaker placement Code(s): Z95.0 - PRESENCE OF CARDIAC PACEMAKER (5) Hx of CABG Code(s): Z95.1 - PRESENCE OF AORTOCORONARY BYPASS GRAFT (6) Hyperlipidemia Code(s): E78.5 - HYPERLIPIDEMIA, UNSPECIFIED Qualifiers: (7) Hypertension Code(s): I10 - ESSENTIAL (PRIMARY) HYPERTENSION Qualifiers: Hypertension type: essential hypertension Qualified Code(s): I10 - Essential (primary) hypertension (8) Stented coronary artery Code(s): Z95.5 - PRESENCE OF CORONARY ANGIOPLASTY IMPLANT AND GRAFT (9) Syncope Assessment/Plan: orthostatic VS maintain hydration ECHO for LVEF, valve status Repeat carotid artery US (moderate ASHD without stenoses 2017) Repeat CT chest (mild thoracic aorta aneurysm 2017) Code(s): R55 - SYNCOPE AND COLLAPSE (10) Thoracic aortic aneurysm Assessment/Plan: repeat CTA (mildly dilated 2017). Code(s): I71.2 - THORACIC AORTIC ANEURYSM, WITHOUT RUPTURE (11) Anxiety Code(s): F41.9 - ANXIETY DISORDER, UNSPECIFIED (12) Atrial fib/flutter, transient Assessment/Plan: on metoprolol for HR control On apixaban for anticoagulation. F/u ECHO (inadequate study the last time). Code(s): [id number] -
[2017-12-21] MEDS: TAMSULOSIN HCL 0.4 MG CAP.ER.24H (FP) PO SCH (21:00)
[2017-12-21] MEDS: ATORVASTATIN CA 20 MG TABLET (FP) PO SCH (21:00)
[2017-12-21] MEDS: QUEtiapine FUMARATE 25 MG TABLET (FP) PO SCH (21:01)
[2017-12-22] MEDS: PREGABALIN 100 MG CAPSULE PO SCH ×3 (06:54→21:05)
[2017-12-22] MEDS: LEVALBUTEROL HCL 0.63 MG/3 ML VIAL.NEB. IH SCH ×3 (07:27→19:59)
[2017-12-22] MEDS ORDERED: PT OWN MED DRAWER 7, Y5N ONE ×3 (09:28→19:48)
[2017-12-22] MEDS ORDERED: DEXTROSE 5%-WATER 100 ML IVPB ONE (09:28)
[2017-12-22] MEDS: ROFLUMILAST 500 MCG TABLET PO SCH (10:32)
[2017-12-22] MEDS: ISOSORBIDE DINITRATE 20 MG TABLET (FP) PO SCH ×2 (10:32→18:04)
[2017-12-22] MEDS: METOPROLOL TARTRATE 25 MG TABLET (FP) PO SCH ×2 (10:33→21:05)
[2017-12-22] MEDS: LISINOPRIL 20 MG TABLET (FP) PO SCH (10:33)
[2017-12-22] MEDS: DULoxetine HCL 30 MG CAPSULE.DR (FP) PO SCH (10:33)
[2017-12-22] MEDS: APIXABAN 2.5 MG TABLET PO SCH ×2 (10:34→21:04)
[2017-12-22] MEDS: PANTOPRAZOLE 40 MG TABLET (FP) PO SCH (10:34)
[2017-12-22] MEDS: levETIRAcetam 500 MG TABLET (FP) PO SCH ×2 (10:34→21:04)
[2017-12-22] MEDS: CEFTRIAXONE 2 GM in DEXTROSE 5%-WATER 100 ML IVPB SCH (10:34)
[2017-12-22] MEDS: predniSONE 10 MG TABLET (UD) PO SCH (10:34)
--- NOTE | 2017-12-22 10:56 | PN ---
Progress Note, Physician History of Present Illness: 77yM with PMH: AAA s/p repair 2011 with perioperative CVA, TAA (4.9cm on 04/03/17 ), Afib, DVT, CAD s/p CABG and stents, PPM, CHF, COPD, HTN, HLD, BPH, gallstones presented to the ED s/p unwitnessed fall with seizure activity. - Current Medication List Current Medications: Active Medications Acetaminophen (Tylenol -) 650 mg PO Q6H PRN PRN Reason: FEVER Last Admin: 12/20/17 13:15 Dose: 650 mg Apixaban (Eliquis -) 2.5 mg PO BID [facility] Last Admin: 12/22/17 10:34 Dose: 2.5 mg Atorvastatin Calcium (Lipitor -) 20 mg PO HS [facility] Last Admin: 12/21/17 21:00 Dose: 20 mg Budesonide/Formoterol Fumarate (Symbicort 160/4.5mcg -) 2 puff IH BID [facility] Last Admin: 12/21/17 21:01 Dose: 2 puff Duloxetine HCl (Cymbalta -) 60 mg PO DAILY [facility] Last Admin: 12/22/17 10:33 Dose: 60 mg Ceftriaxone Sodium 2 gm/ (Dextrose) 100 mls @ 200 mls/hr IVPB DAILY [facility] Last Admin: 12/22/17 10:34 Dose: 200 mls/hr Isosorbide Dinitrate (Isordil -) 20 mg PO BIDISORDIL [facility] Last Admin: 12/22/17 10:32 Dose: 20 mg Levalbuterol HCl (Xopenex) 0.63 mg IH RTID [facility] Last Admin: 12/22/17 07:27 Dose: 0.63 mg Levetiracetam (Keppra -) 500 mg PO BID [facility] Last Admin: 12/22/17 10:34 Dose: 500 mg Lisinopril (Prinivil) 20 mg PO DAILY [facility] Last Admin: 12/22/17 10:33 Dose: 20 mg Metoprolol Tartrate (Lopressor -) 37.5 mg PO BID [facility] Last Admin: 12/22/17 10:33 Dose: 37.5 mg Pantoprazole Sodium (Protonix -) 40 mg PO DAILY [facility] Last Admin: 12/22/17 10:34 Dose: 40 mg Prednisone (Deltasone -) 10 mg PO DAILY [facility] Last Admin: 12/22/17 10:34 Dose: 10 mg Pregabalin (Lyrica -) 100 mg PO TID [facility] Last Admin: 12/22/17 06:54 Dose: 100 mg Quetiapine Fumarate (Seroquel -) 12.5 mg PO HS [facility] Last Admin: 12/21/17 21:01 Dose: 12.5 mg Roflumilast (Daliresp -) 500 mcg PO DAILY [facility] Last Admin: 12/22/17 10:32 Dose: 500 mcg Tamsulosin HCl (Flomax -) 0.4 mg PO HS [facility] Last Admin: 12/21/17 21:00 Dose: 0.4 mg Tiotropium [place] (Spiriva Respimat) 2 puff IH DAILY [facility] Last Admin: 12/21/17 12:10 Dose: 2 puff - Objective Vital Signs: Vital Signs Temperature 97.3 F L 12/22/17 06:00 Pulse Rate 66 12/22/17 06:00 Respiratory Rate 20 12/22/17 06:00 Blood Pressure 134/70 12/22/17 06:00 O2 Sat by Pulse Oximetry (%) 91 L 12/21/17 21:00 Cardiovascular: Yes: S1, S2 Respiratory: Yes: Regular, CTA Bilaterally Gastrointestinal: Yes: Normal Bowel Sounds, Soft Labs: CBC, BMP 12/20/17 05:50 12/20/17 05:50 INR, PTT INR 1.10 (0.83-1.09) H 12/19/17 23:15 Problem List - Problems (1) Seizure Assessment/Plan: - will increase keppra to 500mg bid - neurology consult noted - admit to tele - [facility] given extensive cardiac history Code(s): R56.9 - UNSPECIFIED CONVULSIONS (2) CAD (coronary artery disease) Assessment/Plan: - cont home meds Code(s): I25.10 - ATHSCL HEART DISEASE OF [place] CORONARY ARTERY W/O ANG PCTRS Qualifiers: Coronary Disease-Associated Artery/Lesion type: [place] artery Associated angina: with stable angina (3) CHF (congestive heart failure) Assessment/Plan: - lasix DC on previous admission, no s/s fluid overload, monitor fluid volume status closely Code(s): I50.9 - HEART FAILURE, UNSPECIFIED (4) COPD (chronic obstructive pulmonary disease) Assessment/Plan: - cont symbicort, spiriva - levalbuterol nebs TID ( h/o tachyarrhythmias possibly linked to albuterol use ) - cont daily prednisone 10mg Code(s): J44.9 - CHRONIC OBSTRUCTIVE PULMONARY DISEASE, UNSPECIFIED Qualifiers: COPD type: COPD with acute exacerbation Qualified Code(s): J44.1 - Chronic obstructive pulmonary disease with (acute) exacerbation (5) Afib Assessment/Plan: - cont eliquis for CVA PPX, Cont metoprolol for rate control Code(s): I48.91 - UNSPECIFIED ATRIAL FIBRILLATION Qualifiers: Atrial fibrillation type: chronic Qualified Code(s): I48.2 - Chronic atrial fibrillation
[2017-12-22] MEDS: BUDESONIDE/FORMETEROL FUMARATE 160/4.5 mcg INHALER IH SCH ×2 (16:04→21:05)
[2017-12-22] MEDS: TIOTROPIUM BROMIDE 2.5 MCG (SPIRIVA) RESPIMAT INHALER IH SCH (16:07)
[2017-12-22] MEDS: TAMSULOSIN HCL 0.4 MG CAP.ER.24H (FP) PO SCH (21:04)
[2017-12-22] MEDS: ATORVASTATIN CA 20 MG TABLET (FP) PO SCH (21:05)
[2017-12-22] MEDS: QUEtiapine FUMARATE 25 MG TABLET (FP) PO SCH (21:05)
--- NOTE | 2017-12-23 05:58 | PN ---
Progress Note, Physician Chief Complaint: Pt alert; no chest pain or dizziness. History of Present Illness: The patient is a 77 year old male with a significant past medical history of A- fib (on xarelto), HTN, HLD, CAD s/p stent s/p pacemaker s/p CABG, PAD, s/p LE bypass, AAA s/p repair, mild thoracic aorta aneurysm (2017 CT), COPD c/b chronic hypoxic respiratory failure, h/o CVA with residual left sided weakness, OA, CKD who presents to the ED s/p unwitnessed fall and seizure like activity earlier today. and daughter states they heard the patient fall from the other room and went into the room and saw the patient with his eyes rolled back and shaking. Patient reports a similar episode in the beginning of November. Patient states he has not missed any of his medications and takes keppra daily. Patient comes into the ED with a C-Collar on by EMS. and daughter state the patient is at his mental baseline . Denies any other symptoms. - Current Medication List Current Medications: Active Medications Acetaminophen (Tylenol -) 650 mg PO Q6H PRN PRN Reason: FEVER Last Admin: 12/20/17 13:15 Dose: 650 mg Apixaban (Eliquis -) 2.5 mg PO BID [facility] Last Admin: 12/22/17 21:04 Dose: 2.5 mg Atorvastatin Calcium (Lipitor -) 20 mg PO HS [facility] Last Admin: 12/22/17 21:05 Dose: 20 mg Budesonide/Formoterol Fumarate (Symbicort 160/4.5mcg -) 2 puff IH BID [facility] Last Admin: 12/22/17 21:05 Dose: Not Given Duloxetine HCl (Cymbalta -) 60 mg PO DAILY [facility] Last Admin: 12/22/17 10:33 Dose: 60 mg Ceftriaxone Sodium 2 gm/ (Dextrose) 100 mls @ 200 mls/hr IVPB DAILY [facility] Last Admin: 12/22/17 10:34 Dose: 200 mls/hr Isosorbide Dinitrate (Isordil -) 20 mg PO BIDISORDIL [facility] Last Admin: 12/22/17 18:04 Dose: 20 mg Levalbuterol HCl (Xopenex) 0.63 mg IH RTID [facility] Last Admin: 12/22/17 19:59 Dose: 0.63 mg Levetiracetam (Keppra -) 500 mg PO BID [facility] Last Admin: 12/22/17 21:04 Dose: 500 mg Lisinopril (Prinivil) 20 mg PO DAILY [facility] Last Admin: 12/22/17 10:33 Dose: 20 mg Metoprolol Tartrate (Lopressor -) 37.5 mg PO BID [facility] Last Admin: 12/22/17 21:05 Dose: 37.5 mg Pantoprazole Sodium (Protonix -) 40 mg PO DAILY [facility] Last Admin: 12/22/17 10:34 Dose: 40 mg Prednisone (Deltasone -) 10 mg PO DAILY [facility] Last Admin: 12/22/17 10:34 Dose: 10 mg Pregabalin (Lyrica -) 100 mg PO TID [facility] Last Admin: 12/22/17 21:05 Dose: 100 mg Quetiapine Fumarate (Seroquel -) 12.5 mg PO HS [facility] Last Admin: 12/22/17 21:05 Dose: 12.5 mg Roflumilast (Daliresp -) 500 mcg PO DAILY [facility] Last Admin: 12/22/17 10:32 Dose: 500 mcg Tamsulosin HCl (Flomax -) 0.4 mg PO HS [facility] Last Admin: 12/22/17 21:04 Dose: 0.4 mg Tiotropium [place] (Spiriva Respimat) 2 puff IH DAILY [facility] Last Admin: 12/22/17 16:07 Dose: 2 puff - Objective Vital Signs: Vital Signs Temperature 97.5 F L 12/23/17 01:00 Pulse Rate 65 12/23/17 01:00 Respiratory Rate 20 12/23/17 01:00 Blood Pressure 133/84 12/23/17 01:00 O2 Sat by Pulse Oximetry (%) 97 12/22/17 21:00 Constitutional: Yes: Anxious Eyes: Yes: WNL HENT: Yes: WNL Neck: Yes: Decreased ROM Cardiovascular: Yes: S1 (split), S2 (split) Respiratory: Yes: WNL Gastrointestinal: Yes: Soft ...Rectal Exam: Yes: Deferred Genitourinary: No: Anuria Breast(s): Yes: WNL Musculoskeletal: Yes: Joint Stiffness, Joint Swelling, Muscle Weakness Extremities: Yes: Cool, Other (left hand swollen, purpuri) Edema: Yes Edema: RUE: Trace Peripheral Pulses WNL: No Peripheral Pulses: Left Doralis Pedis: 1+, Right Dorsalis Pedis: 1+ Integumentary: Yes: Bruising Neurological: Yes: Alert, Oriented, Weakness Psychiatric: Yes: Alert, Oriented, Other (anxiety) Labs: CBC, BMP 12/20/17 05:50 12/20/17 05:50 INR, PTT INR 1.10 (0.83-1.09) H 12/19/17 23:15 - ....Imaging EKG: Image Reviewed (AV paced rhythm) Problem List - Problems (1) CAD (coronary artery disease) Code(s): I25.10 - ATHSCL HEART DISEASE OF [place] CORONARY ARTERY W/O ANG PCTRS Qualifiers: Coronary Disease-Associated Artery/Lesion type: [place] artery Associated angina: with stable angina (2) CKD (chronic kidney disease) Code(s): N18.9 - CHRONIC KIDNEY DISEASE, UNSPECIFIED Qualifiers: Chronic kidney disease stage: stage 3 (moderate) Qualified Code(s): N18.3 - Chronic kidney disease, stage 3 (moderate) (3) Seizure Assessment/Plan: f/u with neurology Code(s): R56.9 - UNSPECIFIED CONVULSIONS (4) History of permanent cardiac pacemaker placement Code(s): Z95.0 - PRESENCE OF CARDIAC PACEMAKER (5) Hx of CABG Code(s): Z95.1 - PRESENCE OF AORTOCORONARY BYPASS GRAFT (6) Hyperlipidemia Code(s): E78.5 - HYPERLIPIDEMIA, UNSPECIFIED Qualifiers: (7) Hypertension Code(s): I10 - ESSENTIAL (PRIMARY) HYPERTENSION Qualifiers: Hypertension type: essential hypertension Qualified Code(s): I10 - Essential (primary) hypertension (8) Stented coronary artery Assessment/Plan: TNI negative x 2 aggressive lipid control (presently on atorvastatin) Code(s): Z95.5 - PRESENCE OF CORONARY ANGIOPLASTY IMPLANT AND GRAFT (9) Syncope Assessment/Plan: orthostatic VS maintain hydration ECHO for LVEF, valve status Repeat carotid artery US (moderate ASHD without stenoses 2016) Repeat CT chest (mild thoracic aorta aneurysm 2017) Code(s): R55 - SYNCOPE AND COLLAPSE (10) Thoracic aortic aneurysm Assessment/Plan: repeat CTA (mildly dilated 2017). Code(s): I71.2 - THORACIC AORTIC ANEURYSM, WITHOUT RUPTURE (11) Anxiety Code(s): F41.9 - ANXIETY DISORDER, UNSPECIFIED (12) Atrial fib/flutter, transient Assessment/Plan: on metoprolol for HR control On apixaban for anticoagulation. F/u ECHO (inadequate study the last time). Code(s): GTQ5468 - (13) Subluxation of left shoulder girdle Assessment/Plan: f/u with orthopedics Code(s): S43.302A - SUBLUXATION OF UNSP PARTS OF LEFT SHOULDER GIRDLE, INIT
[2017-12-23] MEDS: PREGABALIN 100 MG CAPSULE PO SCH ×3 (06:04→21:16)
[2017-12-23] MEDS ORDERED: PT OWN MED DRAWER 7, Y5N ONE ×2 (07:35→20:26)
[2017-12-23] MEDS: LEVALBUTEROL HCL 0.63 MG/3 ML VIAL.NEB. IH SCH ×3 (07:42→20:06)
--- NOTE | 2017-12-23 08:35 | PN ---
Progress Note, Physician Chief Complaint: Seen and examined, no distress TELE: Underlying AF with periods of NSVT- chronic - Current Medication List Current Medications: Active Medications Acetaminophen (Tylenol -) 650 mg PO Q6H PRN PRN Reason: FEVER Last Admin: 12/20/17 13:15 Dose: 650 mg Apixaban (Eliquis -) 2.5 mg PO BID [facility] Last Admin: 12/22/17 21:04 Dose: 2.5 mg Atorvastatin Calcium (Lipitor -) 20 mg PO HS [facility] Last Admin: 12/22/17 21:05 Dose: 20 mg Budesonide/Formoterol Fumarate (Symbicort 160/4.5mcg -) 2 puff IH BID [facility] Last Admin: 12/22/17 21:05 Dose: Not Given Duloxetine HCl (Cymbalta -) 60 mg PO DAILY [facility] Last Admin: 12/22/17 10:33 Dose: 60 mg Ceftriaxone Sodium 2 gm/ (Dextrose) 100 mls @ 200 mls/hr IVPB DAILY [facility] Last Admin: 12/22/17 10:34 Dose: 200 mls/hr Isosorbide Dinitrate (Isordil -) 20 mg PO BIDISORDIL [facility] Last Admin: 12/22/17 18:04 Dose: 20 mg Levalbuterol HCl (Xopenex) 0.63 mg IH RTID [facility] Last Admin: 12/23/17 07:42 Dose: 0.63 mg Levetiracetam (Keppra -) 500 mg PO BID [facility] Last Admin: 12/22/17 21:04 Dose: 500 mg Lisinopril (Prinivil) 20 mg PO DAILY [facility] Last Admin: 12/22/17 10:33 Dose: 20 mg Metoprolol Tartrate (Lopressor -) 37.5 mg PO BID [facility] Last Admin: 12/22/17 21:05 Dose: 37.5 mg Pantoprazole Sodium (Protonix -) 40 mg PO DAILY [facility] Last Admin: 12/22/17 10:34 Dose: 40 mg Prednisone (Deltasone -) 10 mg PO DAILY [facility] Last Admin: 12/22/17 10:34 Dose: 10 mg Pregabalin (Lyrica -) 100 mg PO TID [facility] Last Admin: 12/23/17 06:04 Dose: 100 mg Quetiapine Fumarate (Seroquel -) 12.5 mg PO HS [facility] Last Admin: 12/22/17 21:05 Dose: 12.5 mg Roflumilast (Daliresp -) 500 mcg PO DAILY [facility] Last Admin: 12/22/17 10:32 Dose: 500 mcg Tamsulosin HCl (Flomax -) 0.[address] [facility] Last Admin: 12/22/17 21:04 Dose: 0.4 mg Tiotropium [place] (Spiriva Respimat) 2 puff IH DAILY [facility] Last Admin: 12/22/17 16:07 Dose: 2 puff - Objective Vital Signs: Vital Signs Temperature 97.9 F 12/23/17 05:00 Pulse Rate 65 12/23/17 05:00 Respiratory Rate 20 12/23/17 05:00 Blood Pressure 143/83 12/23/17 05:00 O2 Sat by Pulse Oximetry (%) 97 12/22/17 21:00 Constitutional: Yes: No Distress Cardiovascular: Yes: Regular Rate and Rhythm (paced) Respiratory: Yes: Other (bilateral rhonchi) Gastrointestinal: Yes: Soft Edema: Yes Edema: LLE: 1+, RLE: 1+ Neurological: Yes: Alert Labs: CBC, BMP 12/20/17 05:50 12/20/17 05:50 INR, PTT INR 1.10 (0.83-1.09) H 12/19/17 23:15 Laboratory Tests 12/19/17 12/20/17 12/20/17 23:15 04:00 05:50 WBC 4.7 Hgb 11.5 L Hct 36.3 Plt Count 111 L D Sodium Potassium Creatinine Troponin I 0.03 0.03 12/20/17 05:50 WBC Hgb Hct Plt Count Sodium 143 Potassium 4.2 Creatinine 1.0 Troponin I 0.03 - ....Imaging EKG: Image Reviewed Assessment/Plan IMP: Hx CVAs with residual seizure d/o Ischemic CM s/p ROOM ATTENDANT-P, 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 NSVT: chronic. Cont Toprol. Keep K+ > 4 and Mg2+> 2. -no sustained episodes to explain presentation. -Refused ICD 2. AF: -Cont Eliquis 3. CAD with chronic angina: -Cont beta jake, Nitrates. -Deemed too high risk for cath given diffuse calcifications throughout aorta. 4. Disp: -Patient signed a DNR/DNI last admission.
[2017-12-23] MEDS ORDERED: DEXTROSE 5%-WATER 100 ML IVPB ONE (09:12)
[2017-12-23] MEDS: CEFTRIAXONE 2 GM in DEXTROSE 5%-WATER 100 ML IVPB SCH (10:12)
[2017-12-23] MEDS: METOPROLOL TARTRATE 25 MG TABLET (FP) PO SCH ×2 (10:12→21:16)
[2017-12-23] MEDS: PANTOPRAZOLE 40 MG TABLET (FP) PO SCH (10:13)
[2017-12-23] MEDS: DULoxetine HCL 30 MG CAPSULE.DR (FP) PO SCH (10:13)
[2017-12-23] MEDS: predniSONE 10 MG TABLET (UD) PO SCH (10:13)
[2017-12-23] MEDS: APIXABAN 2.5 MG TABLET PO SCH ×2 (10:13→21:15)
[2017-12-23] MEDS: levETIRAcetam 500 MG TABLET (FP) PO SCH ×2 (10:13→21:16)
[2017-12-23] MEDS: TIOTROPIUM BROMIDE 2.5 MCG (SPIRIVA) RESPIMAT INHALER IH SCH (10:14)
[2017-12-23] MEDS: ROFLUMILAST 500 MCG TABLET PO SCH (10:14)
[2017-12-23] MEDS: ISOSORBIDE DINITRATE 20 MG TABLET (FP) PO SCH ×2 (10:14→17:49)
[2017-12-23] MEDS: BUDESONIDE/FORMETEROL FUMARATE 160/4.5 mcg INHALER IH SCH ×2 (10:15→21:17)
[2017-12-23] MEDS: LISINOPRIL 20 MG TABLET (FP) PO SCH (10:21)
--- NOTE | 2017-12-23 12:01 | DS ---
Physical Examination Vital Signs: Vital Signs Temperature 97.9 F 12/23/17 05:00 Pulse Rate 65 12/23/17 05:00 Respiratory Rate 20 12/23/17 05:00 Blood Pressure 143/83 12/23/17 05:00 O2 Sat by Pulse Oximetry (%) 97 12/22/17 21:00 Findings/Remarks: This is a 77 year old male with significant past medical history of CAD, CHF, HTN, CVA, ? seizure, who presented from home s/p fall. As per ED noted, reported shaking of extremities. no longer present at bedside. Pt reports that he fell but does not remember it. He denies injury. Of note, pt was admitted from 11/23-12/11 following similar event. Hospital course was complicated by COPD exac, runs of NSVT, mild DUARTE, strep bacteremia and hematoma to left upper arm. Pt was DC home with PICC line for ceftriaxone 2g x 14 days. He was also DC home on prednisone taper to maintenance 10mg daily. Constitutional: Yes: Well Nourished, No Distress, Calm Cardiovascular: Yes: Regular Rate and Rhythm Respiratory: Yes: Regular Gastrointestinal: Yes: Normal Bowel Sounds, Soft Musculoskeletal: Yes: Muscle Weakness Edema: No Peripheral Pulses WNL: Yes Neurological: Yes: Alert, Pre-Existing Deficit Psychiatric: Yes: Alert Labs: CBC, BMP 12/20/17 05:50 12/20/17 05:50 Discharge Summary Reason For Visit: UNWITNESSED FALL Current Active Problems Anxiety (Acute) Atrial fib/flutter, transient (Acute) Subluxation of left shoulder girdle (Acute) Syncope (Acute) Thoracic aortic aneurysm (Acute) Unwitnessed fall (Acute) Hospital Course: Laboratory Last Values WBC 4.7 K/mm3 (4.0-10.0) 12/20/17 05:50 RBC 4.12 M/mm3 (4.00-5.60) 12/20/17 05:50 Hgb 11.5 GM/dL (11.7-16.9) L 12/20/17 05:50 Hct 36.3 % (35.4-49) 12/20/17 05:50 MCV 88.3 fl (80-96) 12/20/17 05:50 MCH 28.0 pg (25.7-33.7) 12/20/17 05:50 MCHC 31.8 g/dl (32.0-35.9) L 12/20/17 05:50 RDW 21.2 % (11.9-15.9) H 12/20/17 05:50 Plt Count 111 K/MM3 (134-434) L D 12/20/17 05:50 MPV 9.4 fl (7.5-11.1) 12/20/17 05:50 Absolute Neuts (auto) 3.3 K/mm3 (1.5-8.0) 12/20/17 05:50 Neutrophils % 69.7 % (42.8-82.8) 12/20/17 05:50 Lymphocytes % 19.9 % (8-40) D 12/20/17 05:50 Monocytes % 8.7 % (3.8-10.2) 12/20/17 05:50 Eosinophils % 1.3 % (0-4.5) 12/20/17 05:50 Basophils % 0.4 % (0-2.0) 12/20/17 05:50 Nucleated RBC % 0 % (0-0) 12/20/17 05:50 Hypochromia 0 12/19/17 23:15 Platelet Estimate Normal 12/19/17 23:15 Polychromasia 1+ 12/19/17 23:15 Poikilocytosis 1+ 12/19/17 23:15 Anisocytosis 2+ 12/19/17 23:15 Microcytosis 2+ 12/19/17 23:15 Macrocytosis 0 12/19/17 23:15 PT with INR 12.40 SEC (9.7-13.0) 12/19/17 23:15 INR 1.10 (0.83-1.09) H 12/19/17 23:15 PTT (Actin FS) 30.6 SECONDS (25.2-36.5) 12/19/17 23:15 VBG pH 7.41 (7.32-7.42) 12/19/17 23:15 POC VBG pCO2 45.7 mmHg (38-52) 12/19/17 23:15 POC VBG pO2 35.8 mmHg (28-48) D 12/19/17 23:15 Mixed VBG HCO3 28.1 meq/L (19-25) H 12/19/17 23:15 Sodium 143 mmol/L (136-145) 12/20/17 05:50 Potassium 4.2 mmol/L (3.5-5.1) 12/20/17 05:50 Chloride 105 mmol/L (98-107) 12/20/17 05:50 Carbon Dioxide 26 mmol/L (21-32) 12/20/17 05:50 Anion Gap 12 MMOL/L (8-16) 12/20/17 05:50 BUN 25 mg/dL (7-18) H 12/20/17 05:50 Creatinine 1.0 mg/dL (0.55-1.3) 12/20/17 05:50 Creat Clearance w eGFR > 60 (>60) 12/20/17 05:50 Random Glucose 71 mg/dL (74-106) L 12/20/17 05:50 Calcium 8.6 mg/dL (8.5-10.1) 12/20/17 05:50 Phosphorus 3.6 mg/dL (2.5-4.9) 12/20/17 05:50 Magnesium 2.3 mg/dL (1.8-2.4) 12/20/17 05:50 Total Bilirubin 0.4 mg/dL (0.2-1) 12/19/17 23:15 AST 26 U/L (15-37) 12/19/17 23:15 ALT 24 U/L (13-61) 12/19/17 23:15 Alkaline Phosphatase 51 U/L (45-117) 12/19/17 23:15 Creatine Kinase 52 IU/L (26-308) 12/20/17 05:50 Troponin I 0.03 ng/ml (0.00-0.05) 12/20/17 05:50 B-Natriuretic Peptide 2443.9 pg/ml (5-450) H 12/20/17 04:00 Total Protein 5.3 g/dl (6.4-8.2) L 12/19/17 23:15 Albumin 2.6 g/dl (3.4-5.0) L 12/19/17 23:15 Urine Color Straw 12/20/17 04:00 Urine Appearance Clear 12/20/17 04:00 Urine pH 5.0 (5.0-8.0) 12/20/17 04:00 Ur Specific [place] 1.005 (1.001-1.035) 12/20/17 04:00 Urine Protein Negative (NEGATIVE) 12/20/17 04:00 Urine Glucose (UA) Negative (NEGATIVE) 12/20/17 04:00 Urine Ketones Negative (NEGATIVE) 12/20/17 04:00 Urine Blood 1+ (NEGATIVE) H 12/20/17 04:00 Urine Nitrite Negative (NEGATIVE) 12/20/17 04:00 Urine Bilirubin Negative (<2.0 mg/dL) 12/20/17 04:00 Urine Urobilinogen Negative mg/dL (0.2-1.0) 12/20/17 04:00 Ur Leukocyte Esterase Negative (NEGATIVE) 12/20/17 04:00 Urine WBC (Auto) None /hpf (3-5) 12/20/17 04:00 Urine RBC (Auto) 1 /hpf (0-3) 12/20/17 04:00 Microbiology 12/20/17 04:00 Urine - Urine Clean Catch Urine Culture - Final NO GROWTH OBTAINED Condition: Stable - Instructions Referrals: Alyssa Solomon [Primary Care Provider] - Disposition: VNS/HOME HEALTH CARE - Home Medications Comprehensive Discharge Medication List: Ambulatory Orders Duloxetine HCl [Cymbalta -] 60 mg PO DAILY 11/08/17 Fluocinonide 0.05% Cream [Lidex 0.05% Cream -] 1 applic TP DAILY 11/08/17 Isosorbide Dinitrate [Isordil -] 20 mg PO BID 11/08/17 Lovastatin 10 mg PO HS 11/08/17 Pantoprazole Sodium [Protonix] 40 mg PO DAILY 11/08/17 Pregabalin [Lyrica] 100 mg PO TID 11/08/17 Tamsulosin HCl [Flomax] 0.4 mg PO HS 11/08/17 Acetaminophen [Tylenol .Regular Strength -] 650 mg PO Q6H PRN tablet 12/10/17 Albuterol 0.083% Nebulizer Suki [Ventolin 0.083% Nebulizer Soln -] 1 amp NEB Q6H PRN amp 12/10/17 Atorvastatin Ca [Lipitor] 20 mg PO HS tablet 12/10/17 Lisinopril [Prinivil] 20 mg PO DAILY tablet 12/10/17 Quetiapine Fumarate [Seroquel -] 12.5 mg PO AM PRN tablet 12/10/17 Roflumilast [Daliresp -] 500 mcg PO DAILY tablet 12/10/17 Tiotropium [place] [Spiriva Respimat] 2 puff IH DAILY inhaler 12/10/17 levETIRAcetam [Keppra -] 250 mg PO BID tablet 12/10/17 Apixaban [Eliquis -] 2.5 mg PO BID #60 tablet 12/11/17 Budesonide/Formeterol Fumarate [SYMBICORT 160/4.5mcg -] 2 puff IH BID #1 inhaler 12/11/17 Ceftriaxone [Rocephin -] 2 gm IVPB DAILY 14 Days vial 12/11/17 Metoprolol Tartrate [Lopressor -] 37.5 mg PO BID #90 tablet 12/11/17 Prednisone See Taper PO DAILY #100 tablet 12/11/17 Quetiapine Fumarate [Seroquel -] 12.5 mg PO HS #30 tablet 12/11/17 predniSONE [Deltasone -] 30 mg PO DAILY #0 tablet 12/11/17 Ceftriaxone [Rocephin -] 2 gm IVPB DAILY vial 12/23/17
--- NOTE | 2017-12-23 13:57 | CONS ---
DATE OF CONSULTATION: DATE OF DICTATION: 12/23/2017 REFERRING PHYSICIAN: Ronald Lamas MD HISTORY OF PRESENT ILLNESS: The patient is a 77-year-old man who is known from prior admission to [facility] following a fall. He had a previous admission with shortness of breath and fell, injuring his left arm, somewhere in early November. He was subsequently discharged to short-term rehab, I believe, where he had another fall and was noted to have possible seizure versus syncope. CT of the head after readmission on December 20 showed no acute intracranial pathology. Chest x-ray was negative, troponin negative. Blood work on admission: WBC 5.5, hemoglobin 11.1, platelet count 163. Chemistry showed sodium 138, potassium 4.1, BUN slightly elevated at 27, creatinine 1.0, albumin was low at 2.6. BNP is elevated at over 2400. On December 20, WBC 4.7, hemoglobin 11.5, platelet count 111, slightly low. His chemistry, sodium 143, potassium 4.2, BUN still elevated but slightly improved. Patient currently is complaining of a headache, which is generalized and not isolated and states it has been there for some time but no difficulty breathing. He has a little bit of problem with his memory. He also complains of some left upper extremity discomfort but not as much as prior admission. 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 SOCIAL HISTORY: Lives in a private house with his , no stairs. Premorbidly ambulating with a straight cane. Current function not known. He is yet to be evaluated. REVIEW OF SYSTEMS: Again, he does have a generalized headache but no isolated headache, and no severe headache. He is not requesting any medication. No lightheadedness or dizziness. No blurry vision, double vision. There is no nausea, vomiting, difficulty swallowing, difficulty chewing. Again, some pain in the left upper extremity, but no numbness or tingling in the left hand as he had previously had on prior admission. No weakness, numbness, tingling in the right upper extremity, or focal deficits in his lower extremities. He has discoloration in the left upper extremity, which is of chronic nature. He gets dyspneic with exertion but no current shortness of breath. No skin rash or breakdown. PHYSICAL EXAMINATION: General: Patient is seen lying in bed. He is in no acute distress. He is awake, cooperative, and has his left upper extremity elevated. He is on oxygen. He has difficulty with his speech but he is able to communicate fairly well. HEENT: Normocephalic and atraumatic. His extraocular muscles appear intact. He has no obvious left facial weakness. Neck: Supple. Extremities: Edema throughout the left upper limb with discoloration, as noted, which is fading somewhat. No edema or calf tenderness in the lower extremities. No other skin rash. Neuromuscular: He is awake, alert. He did not know the month. He knew he was in a hospital in [place] but could not name the exact place. His cranial nerves 2-12 appeared grossly intact. Again, he does have some speech difficulty with word finding but he is able to communicate. He has fairly good range of motion and strength throughout the upper extremities. 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 Some mild arthritic change in the hands, which are not limiting. In the lower extremities, he has anti-gravity strength in bilateral lower extremities with at least 4 to 4+ out of 5 in the lower extremities. Good knee flexion/extension. Good dorsiflexion and plantar flexion. Normal sensation to light touch. OVERALL IMPRESSION: 1. Deficits in mobility and activities of daily living, multifactorial. 2. Status post multiple falls, seizure versus syncope. 3. Left upper extremity hematoma, swelling, which is improving slowly. 4. History of a cerebrovascular accident affecting his left upper extremity and speech. 5. Abdominal aortic aneurysm. 6. Coronary artery disease, status post coronary artery bypass graft. 7. Atrial fibrillation. 8. Permanent pacemaker. 9. Chronic obstructive pulmonary disease, with chronic respiratory failure, on home oxygen. 10. Chronic anemia, stable. 11. Chronic kidney disease, stable. 12. Mild osteoarthritis of the hands. 13. Elevated risk for deep vein thrombosis due to immobility. PLAN, SUGGESTION: 1. Physical therapy at the bedside for bed mobility, transfers, gait training, strengthening, reconditioning, family training. 2. Out of bed to chair with assistance. 3. Safety/fall precaution. 4. Cardiopulmonary precaution. 5. Patient is on Eliquis. No further DVT prophylaxis needed. 6. Elevation and compression, left upper extremity. 7. Patient declines any pain medication but consider Tylenol for headache. 8. The patient is on Keppra. 9. Probably need short-term rehab once medically stable, versus home with home care. Thank you for this referral. NOREEN MARTIN M.D. [id number]
[2017-12-23] MEDS: ACETAMINOPHEN 325 MG TABLET (FP) PO PRN (19:32)
[2017-12-23] MEDS: TAMSULOSIN HCL 0.4 MG CAP.ER.24H (FP) PO SCH (21:15)
[2017-12-23] MEDS: QUEtiapine FUMARATE 25 MG TABLET (FP) PO SCH (21:16)
[2017-12-23] MEDS: ATORVASTATIN CA 20 MG TABLET (FP) PO SCH (21:16)
[2017-12-24] MEDS: PREGABALIN 100 MG CAPSULE PO SCH ×3 (06:14→21:48)
[2017-12-24] MEDS: LEVALBUTEROL HCL 0.63 MG/3 ML VIAL.NEB. IH SCH ×3 (08:32→20:46)
--- NOTE | 2017-12-24 08:45 | PN ---
Progress Note, Physician - Current Medication List Current Medications: Active Medications Acetaminophen (Tylenol -) 650 mg PO Q6H PRN PRN Reason: FEVER Last Admin: 12/23/17 19:32 Dose: 650 mg Apixaban (Eliquis -) 2.5 mg PO BID [facility] Last Admin: 12/23/17 21:15 Dose: 2.5 mg Atorvastatin Calcium (Lipitor -) 20 mg PO HS [facility] Last Admin: 12/23/17 21:16 Dose: 20 mg Budesonide/Formoterol Fumarate (Symbicort 160/4.5mcg -) 2 puff IH BID [facility] Last Admin: 12/23/17 21:17 Dose: 2 puff Duloxetine HCl (Cymbalta -) 60 mg PO DAILY [facility] Last Admin: 12/23/17 10:13 Dose: 60 mg Ceftriaxone Sodium 2 gm/ (Dextrose) 100 mls @ 200 mls/hr IVPB DAILY [facility]; Protocol Isosorbide Dinitrate (Isordil -) 20 mg PO BIDISORDIL [facility] Last Admin: 12/23/17 17:49 Dose: 20 mg Levalbuterol HCl (Xopenex) 0.63 mg IH RTID [facility] Last Admin: 12/24/17 08:32 Dose: 0.63 mg Levetiracetam (Keppra -) 750 mg PO BID [facility] Last Admin: 12/23/17 21:16 Dose: 750 mg Lisinopril (Prinivil) 20 mg PO DAILY [facility] Last Admin: 12/23/17 10:21 Dose: 20 mg Metoprolol Tartrate (Lopressor -) 37.5 mg PO BID [facility] Last Admin: 12/23/17 21:16 Dose: 37.5 mg Pantoprazole Sodium (Protonix -) 40 mg PO DAILY [facility] Last Admin: 12/23/17 10:13 Dose: 40 mg Prednisone (Deltasone -) 10 mg PO DAILY [facility] Last Admin: 12/23/17 10:13 Dose: 10 mg Pregabalin (Lyrica -) 100 mg PO TID [facility] Last Admin: 12/24/17 06:14 Dose: 100 mg Quetiapine Fumarate (Seroquel -) 12.5 mg PO HS [facility] Last Admin: 12/23/17 21:16 Dose: 12.5 mg Roflumilast (Daliresp -) 500 mcg PO DAILY [facility] Last Admin: 10/01/18 10:14 Dose: 500 mcg Tamsulosin HCl (Flomax -) 0.4 mg PO HS [facility] Last Admin: 12/23/17 21:15 Dose: 0.4 mg Tiotropium [place] (Spiriva Respimat) 2 puff IH DAILY [facility] Last Admin: 12/23/17 10:14 Dose: 2 puff - Objective Vital Signs: Vital Signs Temperature 97.4 F L 12/24/17 06:00 Pulse Rate 66 12/24/17 06:00 Respiratory Rate 20 12/24/17 06:00 Blood Pressure 128/64 12/24/17 06:00 O2 Sat by Pulse Oximetry (%) 92 L 12/23/17 21:00 Labs: CBC, BMP 12/20/17 05:50 12/20/17 05:50 INR, PTT INR 1.10 (0.83-1.09) H 12/19/17 23:15
--- NOTE | 2017-12-24 08:45 | PN ---
Progress Note, Physician Chief Complaint: Feeling well, no acute distress TELE: Paced, chronic short runs NSVT - Current Medication List Current Medications: Active Medications Acetaminophen (Tylenol -) 650 mg PO Q6H PRN PRN Reason: FEVER Last Admin: 12/23/17 19:32 Dose: 650 mg Apixaban (Eliquis -) 2.5 mg PO BID [facility] Last Admin: 12/23/17 21:15 Dose: 2.5 mg Atorvastatin Calcium (Lipitor -) 20 mg PO HS [facility] Last Admin: 12/23/17 21:16 Dose: 20 mg Budesonide/Formoterol Fumarate (Symbicort 160/4.5mcg -) 2 puff IH BID [facility] Last Admin: 12/23/17 21:17 Dose: 2 puff Duloxetine HCl (Cymbalta -) 60 mg PO DAILY [facility] Last Admin: 12/23/17 10:13 Dose: 60 mg Ceftriaxone Sodium 2 gm/ (Dextrose) 100 mls @ 200 mls/hr IVPB DAILY [facility]; Protocol Isosorbide Dinitrate (Isordil -) 20 mg PO BIDISORDIL [facility] Last Admin: 12/23/17 17:49 Dose: 20 mg Levalbuterol HCl (Xopenex) 0.63 mg IH RTID [facility] Last Admin: 12/24/17 08:32 Dose: 0.63 mg Levetiracetam (Keppra -) 750 mg PO BID [facility] Last Admin: 12/23/17 21:16 Dose: 750 mg Lisinopril (Prinivil) 20 mg PO DAILY [facility] Last Admin: 12/23/17 10:21 Dose: 20 mg Metoprolol Tartrate (Lopressor -) 37.5 mg PO BID [facility] Last Admin: 12/23/17 21:16 Dose: 37.5 mg Pantoprazole Sodium (Protonix -) 40 mg PO DAILY [facility] Last Admin: 12/23/17 10:13 Dose: 40 mg Prednisone (Deltasone -) 10 mg PO DAILY [facility] Last Admin: 12/23/17 10:13 Dose: 10 mg Pregabalin (Lyrica -) 100 mg PO TID [facility] Last Admin: 12/24/17 06:14 Dose: 100 mg Quetiapine Fumarate (Seroquel -) 12.5 mg PO HS [facility] Last Admin: 12/23/17 21:16 Dose: 12.5 mg Roflumilast (Daliresp -) 500 mcg PO DAILY [facility] Last Admin: 12/23/17 10:14 Dose: 500 mcg Tamsulosin HCl (Flomax -) 0.4 mg PO HS [facility] Last Admin: 12/23/17 21:15 Dose: 0.4 mg Tiotropium [place] (Spiriva Respimat) 2 puff IH DAILY [facility] Last Admin: 12/23/17 10:14 Dose: 2 puff - Objective Vital Signs: Vital Signs Temperature 97.4 F L 12/24/17 06:00 Pulse Rate 66 12/24/17 06:00 Respiratory Rate 20 12/24/17 06:00 Blood Pressure 128/64 12/24/17 06:00 O2 Sat by Pulse Oximetry (%) 92 L 12/23/17 21:00 Constitutional: Yes: No Distress, Calm Cardiovascular: Yes: Regular Rate and Rhythm Respiratory: Yes: Rhonchi Gastrointestinal: Yes: Soft Edema: Yes Edema: LLE: 1+, RLE: 1+ Labs: CBC, BMP 12/20/17 05:50 12/20/17 05:50 INR, PTT INR 1.10 (0.83-1.09) H 12/19/17 23:15 - ....Imaging EKG: Image Reviewed Assessment/Plan IMP: Hx CVAs with residual seizure d/o Ischemic CM s/p [employer]-P, 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 NSVT: chronic. Cont Toprol. Keep K+ > 4 and Mg2+> 2. -no sustained episodes to explain presentation. -Refused ICD 2. AF: -Cont Eliquis 3. CAD with chronic angina: -Cont beta jake, Nitrates. -Deemed too high risk for cath given diffuse calcifications throughout aorta. 4. Disp: -Patient signed a DNR/DNI last admission.
[2017-12-24] MEDS ORDERED: PT OWN MED DRAWER 7, Y5N ONE ×4 (09:28→20:25)
[2017-12-24] MEDS ORDERED: DEXTROSE 5%-WATER 100 ML IVPB ONE (09:29)
[2017-12-24] MEDS: CEFTRIAXONE 2 GM in DEXTROSE 5%-WATER 100 ML IVPB SCH (09:40)
[2017-12-24] MEDS: BUDESONIDE/FORMETEROL FUMARATE 160/4.5 mcg INHALER IH SCH ×2 (09:40→21:50)
[2017-12-24] MEDS: TIOTROPIUM BROMIDE 2.5 MCG (SPIRIVA) RESPIMAT INHALER IH SCH (09:40)
[2017-12-24] MEDS: METOPROLOL TARTRATE 25 MG TABLET (FP) PO SCH ×2 (09:41→21:45)
[2017-12-24] MEDS: PANTOPRAZOLE 40 MG TABLET (FP) PO SCH (09:42)
[2017-12-24] MEDS: LISINOPRIL 20 MG TABLET (FP) PO SCH (09:42)
[2017-12-24] MEDS: levETIRAcetam 500 MG TABLET (FP) PO SCH ×2 (09:42→21:44)
[2017-12-24] MEDS: APIXABAN 2.5 MG TABLET PO SCH ×2 (09:42→21:45)
[2017-12-24] MEDS: predniSONE 10 MG TABLET (UD) PO SCH (09:42)
[2017-12-24] MEDS: ISOSORBIDE DINITRATE 20 MG TABLET (FP) PO SCH ×2 (09:43→17:58)
[2017-12-24] MEDS: DULoxetine HCL 30 MG CAPSULE.DR (FP) PO SCH (09:43)
[2017-12-24] MEDS: ROFLUMILAST 500 MCG TABLET PO SCH (09:43)
--- NOTE | 2017-12-24 12:03 | PN ---
Progress Note, Physician Chief Complaint: Fall Seizures History of Present Illness: NAD sitting at the edge of the bed at bedside had echo done, awaiting results Keppra increased to 750 bid Seen by Physical therapy, wants pt to go home with VNS services - Current Medication List Current Medications: Active Medications Acetaminophen (Tylenol -) 650 mg PO Q6H PRN PRN Reason: FEVER Last Admin: 12/23/17 19:32 Dose: 650 mg Apixaban (Eliquis -) 2.5 mg PO BID [facility] Last Admin: 12/24/17 09:42 Dose: 2.5 mg Atorvastatin Calcium (Lipitor -) 20 mg PO HS [facility] Last Admin: 12/23/17 21:16 Dose: 20 mg Budesonide/Formoterol Fumarate (Symbicort 160/4.5mcg -) 2 puff IH BID [facility] Last Admin: 12/24/17 09:40 Dose: 2 puff Duloxetine HCl (Cymbalta -) 60 mg PO DAILY [facility] Last Admin: 12/24/17 09:43 Dose: 60 mg Ceftriaxone Sodium 2 gm/ (Dextrose) 100 mls @ 200 mls/hr IVPB DAILY [facility]; Protocol Last Admin: 12/24/17 09:40 Dose: 200 mls/hr Isosorbide Dinitrate (Isordil -) 20 mg PO BIDISORDIL [facility] Last Admin: 12/24/17 09:43 Dose: 20 mg Levalbuterol HCl (Xopenex) 0.63 mg IH RTID [facility] Last Admin: 12/24/17 08:32 Dose: 0.63 mg Levetiracetam (Keppra -) 750 mg PO BID [facility] Last Admin: 12/24/17 09:42 Dose: 750 mg Lisinopril (Prinivil) 20 mg PO DAILY [facility] Last Admin: 12/24/17 09:42 Dose: 20 mg Metoprolol Tartrate (Lopressor -) 37.5 mg PO BID [facility] Last Admin: 12/24/17 09:41 Dose: 37.5 mg Pantoprazole Sodium (Protonix -) 40 mg PO DAILY [facility] Last Admin: 12/24/17 09:42 Dose: 40 mg Prednisone (Deltasone -) 10 mg PO DAILY [facility] Last Admin: 12/24/17 09:42 Dose: 10 mg Pregabalin (Lyrica -) 100 mg PO TID [facility] Last Admin: 12/24/17 06:14 Dose: 100 mg Quetiapine Fumarate (Seroquel -) 12.5 mg PO [facility] Last Admin: 12/23/17 21:16 Dose: 12.5 mg Roflumilast (Daliresp -) 500 mcg PO DAILY [facility] Last Admin: 12/24/17 09:43 Dose: 500 mcg Tamsulosin HCl (Flomax -) 0.4 mg PO [facility] Last Admin: 12/23/17 21:15 Dose: 0.4 mg Tiotropium [place] (Spiriva Respimat) 2 puff IH DAILY [facility] Last Admin: 12/24/17 09:40 Dose: 2 puff - Objective Vital Signs: Vital Signs Temperature 98 F 12/24/17 09:14 Pulse Rate 80 12/24/17 09:14 Respiratory Rate 20 12/24/17 09:14 Blood Pressure 124/70 12/24/17 09:14 O2 Sat by Pulse Oximetry (%) 92 L 12/23/17 21:00 Constitutional: Yes: Well Nourished, No Distress, Calm Cardiovascular: Yes: Regular Rate and Rhythm Respiratory: Yes: Regular Gastrointestinal: Yes: Normal Bowel Sounds, Soft Musculoskeletal: Yes: Muscle Weakness Edema: No Peripheral Pulses WNL: Yes Neurological: Yes: Alert, Pre-Existing Deficit Psychiatric: Yes: Alert Labs: CBC, BMP 12/20/17 05:50 12/20/17 05:50 INR, PTT INR 1.10 (0.83-1.09) H 12/19/17 23:15 Problem List - Problems (1) Atrial fib/flutter, transient Assessment/Plan: chronic -On eliquis 2.5 mg po bid -Telemetry -seen by cardiology Code(s): EER1037 - (2) Unwitnessed fall Assessment/Plan: -CT head negative -Seen by Neurology and cardiology -echo results pending -Physical therapy Code(s): R29.6 - REPEATED FALLS (3) CAD (coronary artery disease) Assessment/Plan: -on isosorbide, Metoprolol Code(s): I25.10 - ATHSCL HEART DISEASE OF [place] CORONARY ARTERY W/O ANG PCTRS Qualifiers: Coronary Disease-Associated Artery/Lesion type: [place] artery Associated angina: with stable angina Assessment/Plan see problem list physical therapy last dose of ceftriaxone in AM, if echo okay and cleared by cardiology, would d/ c home in AM
--- NOTE | 2017-12-24 14:19 | ECHO ---
Name: IVAN MAURICIO Exam:Adult Echocardiogram Study Date: 12/24/2017 08:37 AM Age: 77 yrs Reason For Study: CVA PRIOR ECHO SUB OPYIMAL Height: 67 in Weight: 152 lb BSA: 1.8 m2 MMode/2D Measurements & Calculations IVSd: 0.81 cm LA dimension: 3.6 cm LVIDd: 4.6 cm LVIDs: 3.4 cm LVPWd: 0.80 cm EDV(Teich): 96.0 ml TAPSE: 2.1 cm ESV(Teich): 46.7 ml RV S Bladimir: 13.8 cm/sec Doppler Measurements & Calculations MV E max bladimir: 23.2 cm/sec Ao V2 max: 126.4 cm/sec MV A max bladimir: 82.9 cm/sec Ao max P.4 mmHg MV E/A: 0.28 AI P1/2t: 447.2 msec AI max bladimir: 206.8 cm/sec LV V1 max P.8 mmHg AI max P.4 mmHg LV V1 max: 67.1 cm/sec AI dec slope: 135.5 cm/sec2 TR max bladimir: 197.3 cm/sec Med Peak E' Bladimir: 3.0 cm/sec TR max P.2 mmHg Med E/e': 7.7 Lat Peak E' Bladimir: 6.8 cm/sec Lat E/e': 3.4 Procedure A complete two-dimensional transthoracic echocardiogram was performed (2D, M-mode, Doppler and color flow Doppler). The study was technically difficult with many images being suboptimal in quality. Left Ventricle The left ventricle is normal in size. Left ventricular systolic function is grossly normal. Ejection Fraction = 55%. Regional wall motion abnormalities cannot be excluded due to limited visualization. Right Ventricle The right ventricle is normal in size and function. Atria Normal left and right atrial size and function. Mitral Valve The mitral valve is not well visualized. There is trace mitral regurgitation. Tricuspid Valve The tricuspid valve is not well visualized. There is trace tricuspid regurgitation. Right ventricular systolic pressure is 17 mmhg. Aortic Valve There is mild aortic sclerosis.;. Trace aortic regurgitation. Pulmonic Valve The pulmonic valve is not well visualized. Trace pulmonic valvular regurgitation. Great Vessels The aortic root is not well visualized. Pericardium/Pleura Small pericardial effusion (<1cm). There are no echocardiographic indications of cardiac tamponade. Pericardial fibrinous strands are noted. Interpretation Summary The study was technically difficult with many images being suboptimal in quality. Left ventricular systolic function is grossly normal. Regional wall motion abnormalities cannot be excluded due to limited visualization. Ejection Fraction = 55%. The right ventricle is normal in size and function. There is trace mitral regurgitation. Right ventricular systolic pressure is 17 mmhg. There is mild aortic sclerosis.; Trace aortic regurgitation. Trace pulmonic valvular regurgitation. Small pericardial effusion (<1cm) There are no echocardiographic indications of cardiac tamponade. Pericardial fibrinous strands are noted. MD Axel Doyle 12/24/2017 02:19 PM
[2017-12-24] MEDS: ATORVASTATIN CA 20 MG TABLET (FP) PO SCH (21:45)
[2017-12-24] MEDS: TAMSULOSIN HCL 0.4 MG CAP.ER.24H (FP) PO SCH (21:46)
[2017-12-24] MEDS: QUEtiapine FUMARATE 25 MG TABLET (FP) PO SCH (21:48)
[2017-12-25] MEDS: PREGABALIN 100 MG CAPSULE PO SCH ×3 (05:59→21:49)
[2017-12-25] MEDS: LEVALBUTEROL HCL 0.63 MG/3 ML VIAL.NEB. IH SCH ×3 (08:12→20:37)
[2017-12-25] MEDS ORDERED: PT OWN MED DRAWER 7, Y5N ONE ×2 (08:17→18:11)
[2017-12-25] MEDS ORDERED: DEXTROSE 5%-WATER 100 ML IVPB ONE (10:23)
[2017-12-25] MEDS: levETIRAcetam 500 MG TABLET (FP) PO SCH ×2 (10:38→21:48)
[2017-12-25] MEDS: APIXABAN 2.5 MG TABLET PO SCH ×2 (10:39→21:46)
[2017-12-25] MEDS: LISINOPRIL 20 MG TABLET (FP) PO SCH (10:39)
[2017-12-25] MEDS: METOPROLOL TARTRATE 25 MG TABLET (FP) PO SCH ×2 (10:39→21:46)
[2017-12-25] MEDS: PANTOPRAZOLE 40 MG TABLET (FP) PO SCH (10:39)
[2017-12-25] MEDS: DULoxetine HCL 30 MG CAPSULE.DR (FP) PO SCH (10:39)
[2017-12-25] MEDS: predniSONE 10 MG TABLET (UD) PO SCH (10:39)
[2017-12-25] MEDS: CEFTRIAXONE 2 GM in DEXTROSE 5%-WATER 100 ML IVPB SCH (10:40)
[2017-12-25] MEDS: ROFLUMILAST 500 MCG TABLET PO SCH (10:40)
[2017-12-25] MEDS: TIOTROPIUM BROMIDE 2.5 MCG (SPIRIVA) RESPIMAT INHALER IH SCH (10:40)
[2017-12-25] MEDS: ISOSORBIDE DINITRATE 20 MG TABLET (FP) PO SCH ×2 (10:40→18:17)
[2017-12-25] MEDS: BUDESONIDE/FORMETEROL FUMARATE 160/4.5 mcg INHALER IH SCH ×2 (10:41→21:51)
--- NOTE | 2017-12-25 14:09 | PN ---
Progress Note, Physician Chief Complaint: Fall Seizures History of Present Illness: NAD sitting at the edge of the bed at bedside echo reviewed Keppra increased to 750 bid Seen by Physical therapy, wants pt to go home with VNS services - Current Medication List Current Medications: Active Medications Acetaminophen (Tylenol -) 650 mg PO Q6H PRN PRN Reason: FEVER Last Admin: 12/23/17 19:32 Dose: 650 mg Apixaban (Eliquis -) 2.5 mg PO BID [facility] Last Admin: 12/25/17 10:39 Dose: 2.5 mg Atorvastatin Calcium (Lipitor -) 20 mg PO HS [facility] Last Admin: 12/24/17 21:45 Dose: 20 mg Budesonide/Formoterol Fumarate (Symbicort 160/4.5mcg -) 2 puff IH BID [facility] Last Admin: 12/25/17 10:41 Dose: 2 puff Duloxetine HCl (Cymbalta -) 60 mg PO DAILY [facility] Last Admin: 12/25/17 10:39 Dose: 60 mg Ceftriaxone Sodium 2 gm/ (Dextrose) 100 mls @ 200 mls/hr IVPB DAILY [facility]; Protocol Last Admin: 12/25/17 10:40 Dose: 200 mls/hr Isosorbide Dinitrate (Isordil -) 20 mg PO BIDISORDIL [facility] Last Admin: 12/25/17 10:40 Dose: 20 mg Levalbuterol HCl (Xopenex) 0.63 mg IH RTID [facility] Last Admin: 12/25/17 08:12 Dose: 0.63 mg Levetiracetam (Keppra -) 750 mg PO BID [facility] Last Admin: 12/25/17 10:38 Dose: 750 mg Lisinopril (Prinivil) 20 mg PO DAILY [facility] Last Admin: 12/25/17 10:39 Dose: 20 mg Metoprolol Tartrate (Lopressor -) 37.5 mg PO BID [facility] Last Admin: 12/25/17 10:39 Dose: 37.5 mg Pantoprazole Sodium (Protonix -) 40 mg PO DAILY [facility] Last Admin: 12/25/17 10:39 Dose: 40 mg Prednisone (Deltasone -) 10 mg PO DAILY [facility] Last Admin: 12/25/17 10:39 Dose: 10 mg Pregabalin (Lyrica -) 100 mg PO TID [facility] Last Admin: 12/25/17 05:59 Dose: 100 mg Quetiapine Fumarate (Seroquel -) 12.5 mg PO [facility] Last Admin: 12/24/17 21:48 Dose: 12.5 mg Roflumilast (Daliresp -) 500 mcg PO DAILY [facility] Last Admin: 12/25/17 10:40 Dose: 500 mcg Tamsulosin HCl (Flomax -) 0.4 mg PO [facility] Last Admin: 12/24/17 21:46 Dose: 0.4 mg Tiotropium [place] (Spiriva Respimat) 2 puff IH DAILY [facility] Last Admin: 12/25/17 10:40 Dose: 2 puff - Objective Vital Signs: Vital Signs Temperature 98.2 F 12/25/17 10:00 Pulse Rate 84 12/25/17 10:00 Respiratory Rate 18 12/25/17 10:00 Blood Pressure 112/68 12/25/17 10:00 O2 Sat by Pulse Oximetry (%) 94 L 12/24/17 21:00 Constitutional: Yes: Well Nourished, No Distress, Calm Cardiovascular: Yes: Regular Rate and Rhythm Respiratory: Yes: Regular Gastrointestinal: Yes: Normal Bowel Sounds, Soft Musculoskeletal: Yes: Muscle Weakness Edema: No Peripheral Pulses WNL: Yes Neurological: Yes: Alert, Pre-Existing Deficit Psychiatric: Yes: Alert Labs: CBC, BMP 12/20/17 05:50 12/20/17 05:50 INR, PTT INR 1.10 (0.83-1.09) H 12/19/17 23:15 Problem List - Problems (1) Atrial fib/flutter, transient Assessment/Plan: chronic -On eliquis 2.5 mg po bid -Telemetry -seen by cardiology Code(s): UGL6920 - (2) Unwitnessed fall Assessment/Plan: -CT head negative -Seen by Neurology and cardiology -echo reviewed -Physical therapy Code(s): R29.6 - REPEATED FALLS (3) CAD (coronary artery disease) Assessment/Plan: -on isosorbide, Metoprolol Code(s): I25.10 - ATHSCL HEART DISEASE OF [place] CORONARY ARTERY W/O ANG PCTRS Qualifiers: Coronary Disease-Associated Artery/Lesion type: [place] artery Associated angina: with stable angina (4) Bacteremia Assessment/Plan: -received last dose of ceftriaxone IV today Code(s): R78.81 - BACTEREMIA Assessment/Plan see problem list physical therapy If cleared by cardiology, would d/c home in AM
--- NOTE | 2017-12-25 17:02 | DS ---
Physical Examination Vital Signs: Vital Signs Temperature 98.4 F 12/25/17 14:05 Pulse Rate 80 12/25/17 14:05 Respiratory Rate 18 12/25/17 14:05 Blood Pressure 100/57 L 12/25/17 14:05 O2 Sat by Pulse Oximetry (%) 96 12/25/17 09:00 Findings/Remarks: Patient came in the hospital for unwitnessed fall and seizure. Pt evaluated by Neurology, Cardiology and Physiatry. Seizures are likely 2/2 to previous CVA. Repeat Echo done Keppra increased to 750 mg po BID. Physiatry recommended Physical therapy. Constitutional: Yes: Well Nourished, No Distress, Calm Cardiovascular: Yes: Regular Rate and Rhythm Respiratory: Yes: Regular Gastrointestinal: Yes: Normal Bowel Sounds, Soft Musculoskeletal: Yes: Muscle Weakness Edema: No Peripheral Pulses WNL: Yes Neurological: Yes: Alert, Pre-Existing Deficit Psychiatric: Yes: Alert Labs: CBC, BMP 12/20/17 05:50 12/20/17 05:50 Discharge Summary Reason For Visit: UNWITNESSED FALL Current Active Problems Anxiety (Acute) Atrial fib/flutter, transient (Acute) Subluxation of left shoulder girdle (Acute) Syncope (Acute) Thoracic aortic aneurysm (Acute) Unwitnessed fall (Acute) Hospital Course: Laboratory Last Values WBC 4.7 K/mm3 (4.0-10.0) 12/20/17 05:50 RBC 4.12 M/mm3 (4.00-5.60) 12/20/17 05:50 Hgb 11.5 GM/dL (11.7-16.9) L 12/20/17 05:50 Hct 36.3 % (35.4-49) 12/20/17 05:50 MCV 88.3 fl (80-96) 12/20/17 05:50 MCH 28.0 pg (25.7-33.7) 12/20/17 05:50 MCHC 31.8 g/dl (32.0-35.9) L 12/20/17 05:50 RDW 21.2 % (11.9-15.9) H 12/20/17 05:50 Plt Count 111 K/MM3 (134-434) L D 12/20/17 05:50 MPV 9.4 fl (7.5-11.1) 12/20/17 05:50 Absolute Neuts (auto) 3.3 K/mm3 (1.5-8.0) 12/20/17 05:50 Neutrophils % 69.7 % (42.8-82.8) 12/20/17 05:50 Lymphocytes % 19.9 % (8-40) D 12/20/17 05:50 Monocytes % 8.7 % (3.8-10.2) 12/20/17 05:50 Eosinophils % 1.3 % (0-4.5) 12/20/17 05:50 Basophils % 0.4 % (0-2.0) 12/20/17 05:50 Nucleated RBC % 0 % (0-0) 12/20/17 05:50 Hypochromia 0 12/19/17 23:15 Platelet Estimate Normal 12/19/17 23:15 Polychromasia 1+ 12/19/17 23:15 Poikilocytosis 1+ 12/19/17 23:15 Anisocytosis 2+ 12/19/17 23:15 Microcytosis 2+ 12/19/17 23:15 Macrocytosis 0 12/19/17 23:15 PT with INR 12.40 SEC (9.7-13.0) 12/19/17 23:15 INR 1.10 (0.83-1.09) H 12/19/17 23:15 PTT (Actin FS) 30.6 SECONDS (25.2-36.5) 12/19/17 23:15 VBG pH 7.41 (7.32-7.42) 12/19/17 23:15 POC VBG pCO2 45.7 mmHg (38-52) 12/19/17 23:15 POC VBG pO2 35.8 mmHg (28-48) D 12/19/17 23:15 Mixed VBG HCO3 28.1 meq/L (19-25) H 12/19/17 23:15 Sodium 143 mmol/L (136-145) 12/20/17 05:50 Potassium 4.2 mmol/L (3.5-5.1) 12/20/17 05:50 Chloride 105 mmol/L (98-107) 12/20/17 05:50 Carbon Dioxide 26 mmol/L (21-32) 12/20/17 05:50 Anion Gap 12 MMOL/L (8-16) 12/20/17 05:50 BUN 25 mg/dL (7-18) H 12/20/17 05:50 Creatinine 1.0 mg/dL (0.55-1.3) 12/20/17 05:50 Creat Clearance w eGFR > 60 (>60) 12/20/17 05:50 Random Glucose 71 mg/dL (74-106) L 12/20/17 05:50 Calcium 8.6 mg/dL (8.5-10.1) 12/20/17 05:50 Phosphorus 3.6 mg/dL (2.5-4.9) 12/20/17 05:50 Magnesium 2.3 mg/dL (1.8-2.4) 12/20/17 05:50 Total Bilirubin 0.4 mg/dL (0.2-1) 12/19/17 23:15 AST 26 U/L (15-37) 12/19/17 23:15 ALT 24 U/L (13-61) 12/19/17 23:15 Alkaline Phosphatase 51 U/L (45-117) 12/19/17 23:15 Creatine Kinase 52 IU/L (26-308) 12/20/17 05:50 Troponin I 0.03 ng/ml (0.00-0.05) 12/20/17 05:50 B-Natriuretic Peptide 2443.9 pg/ml (5-450) H 12/20/17 04:00 Total Protein 5.3 g/dl (6.4-8.2) L 12/19/17 23:15 Albumin 2.6 g/dl (3.4-5.0) L 12/19/17 23:15 Urine Color Straw 12/20/17 04:00 Urine Appearance Clear 12/20/17 04:00 Urine pH 5.0 (5.0-8.0) 12/20/17 04:00 Ur Specific [place] 1.005 (1.001-1.035) 12/20/17 04:00 Urine Protein Negative (NEGATIVE) 12/20/17 04:00 Urine Glucose (UA) Negative (NEGATIVE) 12/20/17 04:00 Urine Ketones Negative (NEGATIVE) 12/20/17 04:00 Urine Blood 1+ (NEGATIVE) H 12/20/17 04:00 Urine Nitrite Negative (NEGATIVE) 12/20/17 04:00 Urine Bilirubin Negative (<2.0 mg/dL) 12/20/17 04:00 Urine Urobilinogen Negative mg/dL (0.2-1.0) 12/20/17 04:00 Ur Leukocyte Esterase Negative (NEGATIVE) 12/20/17 04:00 Urine WBC (Auto) None /hpf (3-5) 12/20/17 04:00 Urine RBC (Auto) 1 /hpf (0-3) 12/20/17 04:00 Microbiology 12/20/17 04:00 Urine - Urine Clean Catch Urine Culture - Final NO GROWTH OBTAINED Condition: Stable - Instructions Referrals: Alyssa Solomon [Primary Care Provider] - Disposition: VNS/HOME HEALTH CARE - Home Medications Comprehensive Discharge Medication List: Ambulatory Orders Duloxetine HCl [Cymbalta -] 60 mg PO DAILY 11/08/17 Fluocinonide 0.05% Cream [Lidex 0.05% Cream -] 1 applic TP DAILY 11/08/17 Isosorbide Dinitrate [Isordil -] 20 mg PO BID 11/08/17 Lovastatin 10 mg PO HS 11/08/17 Pantoprazole Sodium [Protonix] 40 mg PO DAILY 11/08/17 Pregabalin [Lyrica] 100 mg PO TID 11/08/17 Tamsulosin HCl [Flomax] 0.4 mg PO HS 11/08/17 Acetaminophen [Tylenol .Regular Strength -] 650 mg PO Q6H PRN tablet 12/10/17 Albuterol 0.083% Nebulizer Suki [Ventolin 0.083% Nebulizer Soln -] 1 amp NEB Q6H PRN amp 12/10/17 Atorvastatin Ca [Lipitor] 20 mg PO HS tablet 12/10/17 Lisinopril [Prinivil] 20 mg PO DAILY tablet 12/10/17 Quetiapine Fumarate [Seroquel -] 12.5 mg PO AM PRN tablet 12/10/17 Roflumilast [Daliresp -] 500 mcg PO DAILY tablet 12/10/17 Tiotropium [place] [Spiriva Respimat] 2 puff IH DAILY inhaler 12/10/17 levETIRAcetam [Keppra -] 250 mg PO BID tablet 12/10/17 Apixaban [Eliquis -] 2.5 mg PO BID #60 tablet 12/11/17 Budesonide/Formeterol Fumarate [SYMBICORT 160/4.5mcg -] 2 puff IH BID #1 inhaler 12/11/17 Ceftriaxone [Rocephin -] 2 gm IVPB DAILY 14 Days vial 12/11/17 Metoprolol Tartrate [Lopressor -] 37.5 mg PO BID #90 tablet 12/11/17 Prednisone See Taper PO DAILY #100 tablet 12/11/17 Quetiapine Fumarate [Seroquel -] 12.5 mg PO HS #30 tablet 12/11/17 predniSONE [Deltasone -] 30 mg PO DAILY #0 tablet 12/11/17 Ceftriaxone [Rocephin -] 2 gm IVPB DAILY vial 12/23/17
[2017-12-25] MEDS: ATORVASTATIN CA 20 MG TABLET (FP) PO SCH (21:47)
[2017-12-25] MEDS: QUEtiapine FUMARATE 25 MG TABLET (FP) PO SCH (21:48)
[2017-12-25] MEDS: TAMSULOSIN HCL 0.4 MG CAP.ER.24H (FP) PO SCH (21:53)
[2017-12-26 03:12] VITALS: TEMP 97.5
[2017-12-26] MEDS: ACETAMINOPHEN 325 MG TABLET (FP) PO PRN (03:45)
[2017-12-26] MEDS: PREGABALIN 100 MG CAPSULE PO SCH (05:39)
[2017-12-26] MEDS: LEVALBUTEROL HCL 0.63 MG/3 ML VIAL.NEB. IH SCH (07:53)
[2017-12-26] MEDS ORDERED: DEXTROSE 5%-WATER 100 ML IVPB ONE (08:19)
--- NOTE | 2017-12-26 09:06 | PN ---
Progress Note, Physician Chief Complaint: Comfortable, no acute distress Denies CP or SOB He wants to go home. - Current Medication List Current Medications: Active Medications Acetaminophen (Tylenol -) 650 mg PO Q6H PRN PRN Reason: FEVER Last Admin: 12/26/17 03:45 Dose: 650 mg Apixaban (Eliquis -) 2.5 mg PO BID [facility] Last Admin: 12/25/17 21:46 Dose: 2.5 mg Atorvastatin Calcium (Lipitor -) 20 mg PO HS [facility] Last Admin: 12/25/17 21:47 Dose: 20 mg Budesonide/Formoterol Fumarate (Symbicort 160/4.5mcg -) 2 puff IH BID [facility] Last Admin: 12/25/17 21:51 Dose: 2 puff Duloxetine HCl (Cymbalta -) 60 mg PO DAILY [facility] Last Admin: 12/25/17 10:39 Dose: 60 mg Ceftriaxone Sodium 2 gm/ (Dextrose) 100 mls @ 200 mls/hr IVPB DAILY [facility]; Protocol Last Admin: 12/25/17 10:40 Dose: 200 mls/hr Isosorbide Dinitrate (Isordil -) 20 mg PO BIDISORDIL [facility] Last Admin: 12/25/17 18:17 Dose: 20 mg Levalbuterol HCl (Xopenex) 0.63 mg IH RTID [facility] Last Admin: 12/26/17 07:53 Dose: 0.63 mg Levetiracetam (Keppra -) 750 mg PO BID [facility] Last Admin: 12/25/17 21:48 Dose: 750 mg Lisinopril (Prinivil) 20 mg PO DAILY [facility] Last Admin: 12/25/17 10:39 Dose: 20 mg Metoprolol Tartrate (Lopressor -) 37.5 mg PO BID [facility] Last Admin: 12/25/17 21:46 Dose: 37.5 mg Pantoprazole Sodium (Protonix -) 40 mg PO DAILY [facility] Last Admin: 12/25/17 10:39 Dose: 40 mg Prednisone (Deltasone -) 10 mg PO DAILY [facility] Last Admin: 12/25/17 10:39 Dose: 10 mg Pregabalin (Lyrica -) 100 mg PO TID [facility] Last Admin: 12/26/17 05:39 Dose: 100 mg Quetiapine Fumarate (Seroquel -) 12.5 mg PO HS [facility] Last Admin: 12/25/17 21:48 Dose: 12.5 mg Roflumilast (Daliresp -) 500 mcg PO DAILY [facility] Last Admin: 12/25/17 10:40 Dose: 500 mcg Tamsulosin HCl (Flomax -) 0.4 mg PO HS [facility] Last Admin: 12/25/17 21:53 Dose: 0.4 mg Tiotropium [place] (Spiriva Respimat) 2 puff IH DAILY [facility] Last Admin: 12/25/17 10:40 Dose: 2 puff - Objective Vital Signs: Vital Signs Temperature 97.5 F L 12/26/17 01:00 Pulse Rate 62 12/26/17 03:47 Respiratory Rate 20 12/26/17 03:47 Blood Pressure 137/76 12/26/17 03:47 O2 Sat by Pulse Oximetry (%) 94 L 12/25/17 20:34 Constitutional: Yes: No Distress, Calm Cardiovascular: Yes: Regular Rate and Rhythm Respiratory: Yes: Other (chronically decreased breath sounds at bases, no active wheezing , no rales.) Gastrointestinal: Yes: Soft Edema: Yes Edema: LLE: 1+, RLE: 1+ Neurological: Yes: Alert Labs: CBC, BMP 12/20/17 05:50 12/20/17 05:50 INR, PTT INR 1.10 (0.83-1.09) H 12/19/17 23:15 - ....Imaging EKG: Image Reviewed (Paced, with short self limited runs of NSVT which are chronic.) Assessment/Plan IMP: Hx CVAs with residual seizure d/o Ischemic 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 NSVT: chronic. Cont Toprol. Keep K+ > 4 and Mg2+> 2. -no sustained episodes to explain presentation. -Refused ICD 2. AF: -Cont Eliquis 3. CAD with chronic angina: -Cont beta jake, Nitrates. -Deemed too high risk for cath given diffuse calcifications throughout aorta. 4. Disp: -Patient signed a DNR/DNI last admission. There are presently no cardiac contraindications to discharge with outpatient f/ u
[2017-12-26 09:26] VITALS: BP 131/74; PULSE 82
[2017-12-26] MEDS: levETIRAcetam 500 MG TABLET (FP) PO SCH (10:58)
[2017-12-26] MEDS: METOPROLOL TARTRATE 25 MG TABLET (FP) PO SCH (10:59)
[2017-12-26] MEDS: DULoxetine HCL 30 MG CAPSULE.DR (FP) PO SCH (11:04)
[2017-12-26] MEDS: PANTOPRAZOLE 40 MG TABLET (FP) PO SCH (11:05)
[2017-12-26] MEDS: LISINOPRIL 20 MG TABLET (FP) PO SCH (11:05)
[2017-12-26] MEDS: APIXABAN 2.5 MG TABLET PO SCH (11:05)
[2017-12-26] MEDS: ISOSORBIDE DINITRATE 20 MG TABLET (FP) PO SCH (11:06)
[2017-12-26] MEDS: predniSONE 10 MG TABLET (UD) PO SCH (11:06)
[2017-12-26] MEDS: TIOTROPIUM BROMIDE 2.5 MCG (SPIRIVA) RESPIMAT INHALER IH SCH (11:07)
[2017-12-26] MEDS: BUDESONIDE/FORMETEROL FUMARATE 160/4.5 mcg INHALER IH SCH (11:07)
[2017-12-26] MEDS: CEFTRIAXONE 2 GM in DEXTROSE 5%-WATER 100 ML IVPB SCH (11:11)
--- NOTE | 2017-12-26 11:38 | PN ---
Progress Note, Physician Chief Complaint: Fall Seizures History of Present Illness: NAD sitting at the edge of the bed at bedside echo reviewed Keppra increased to 750 bid Seen by Physical therapy, wants pt to go home with VNS services - Current Medication List Current Medications: Active Medications Acetaminophen (Tylenol -) 650 mg PO Q6H PRN PRN Reason: FEVER Last Admin: 12/26/17 03:45 Dose: 650 mg Apixaban (Eliquis -) 2.5 mg PO BID [facility] Last Admin: 12/26/17 11:05 Dose: 2.5 mg Atorvastatin Calcium (Lipitor -) 20 mg PO HS [facility] Last Admin: 12/25/17 21:47 Dose: 20 mg Budesonide/Formoterol Fumarate (Symbicort 160/4.5mcg -) 2 puff IH BID [facility] Last Admin: 12/26/17 11:07 Dose: 2 puff Duloxetine HCl (Cymbalta -) 60 mg PO DAILY [facility] Last Admin: 12/26/17 11:04 Dose: 60 mg Ceftriaxone Sodium 2 gm/ (Dextrose) 100 mls @ 200 mls/hr IVPB DAILY [facility]; Protocol Last Admin: 12/26/17 11:11 Dose: Not Given Isosorbide Dinitrate (Isordil -) 20 mg PO BIDISORDIL [facility] Last Admin: 12/26/17 11:06 Dose: 20 mg Levalbuterol HCl (Xopenex) 0.63 mg IH RTID [facility] Last Admin: 12/26/17 07:53 Dose: 0.63 mg Levetiracetam (Keppra -) 750 mg PO BID [facility] Last Admin: 12/26/17 10:58 Dose: 750 mg Lisinopril (Prinivil) 20 mg PO DAILY [facility] Last Admin: 12/26/17 11:05 Dose: 20 mg Metoprolol Tartrate (Lopressor -) 37.5 mg PO BID [facility] Last Admin: 12/26/17 10:59 Dose: 37.5 mg Pantoprazole Sodium (Protonix -) 40 mg PO DAILY [facility] Last Admin: 12/26/17 11:05 Dose: 40 mg Prednisone (Deltasone -) 10 mg PO DAILY [facility] Last Admin: 12/26/17 11:06 Dose: 10 mg Pregabalin (Lyrica -) 100 mg PO TID [facility] Last Admin: 12/26/17 05:39 Dose: 100 mg Quetiapine Fumarate (Seroquel -) 12.5 mg PO HS [facility] Last Admin: 12/25/17 21:48 Dose: 12.5 mg Roflumilast (Daliresp -) 500 mcg PO DAILY [facility] Last Admin: 12/25/17 10:40 Dose: 500 mcg Tamsulosin HCl (Flomax -) 0.4 mg PO HS [facility] Last Admin: 12/25/17 21:53 Dose: 0.4 mg Tiotropium Emery (Spiriva Respimat) 2 puff IH DAILY [facility] Last Admin: 12/26/17 11:07 Dose: 2 puff - Objective Vital Signs: Vital Signs Temperature 97.5 F L 12/26/17 01:00 Pulse Rate 82 12/26/17 09:21 Respiratory Rate 20 12/26/17 09:21 Blood Pressure 131/74 12/26/17 09:21 O2 Sat by Pulse Oximetry (%) 94 L 12/26/17 09:21 Constitutional: Yes: Well Nourished, No Distress, Calm Cardiovascular: Yes: Regular Rate and Rhythm Respiratory: Yes: Regular Gastrointestinal: Yes: Normal Bowel Sounds, Soft Musculoskeletal: Yes: Muscle Weakness Edema: No Peripheral Pulses WNL: Yes Neurological: Yes: Alert, Pre-Existing Deficit Psychiatric: Yes: Alert Labs: CBC, BMP 12/20/17 05:50 12/20/17 05:50 INR, PTT INR 1.10 (0.83-1.09) H 12/19/17 23:15 Problem List - Problems (1) Atrial fib/flutter, transient Assessment/Plan: chronic -On eliquis 2.5 mg po bid -Telemetry -seen by cardiology Code(s): NBU7661 - (2) Unwitnessed fall Assessment/Plan: -CT head negative -Seen by Neurology and cardiology -echo reviewed -Physical therapy Code(s): R29.6 - REPEATED FALLS (3) CAD (coronary artery disease) Assessment/Plan: -on isosorbide, Metoprolol Code(s): I25.10 - ATHSCL HEART DISEASE OF [place] CORONARY ARTERY W/O ANG PCTRS Qualifiers: Coronary Disease-Associated Artery/Lesion type: [place] artery Associated angina: with stable angina (4) Bacteremia Assessment/Plan: -received last dose of ceftriaxone IV yesterday Code(s): R78.81 - BACTEREMIA Assessment/Plan see problem list physical therapy d/c home with VNS
== END 2017-12-26 13:26 | disposition home health service (06) | DRG 57 ==
LOC: JER 21:18 → JERBED 12-20 03:07 → J4W 12-20 04:59 → OBSVTOIN 12-21 12:40
PROVIDERS: ADMIT Internal Medicine; ATTEND Family Medicine
DX: I69.898 Other sequelae of other cerebrovascular disease (principal); I48.92 Unspecified atrial flutter; I47.1 Supraventricular tachycardia; I69.354 Hemiplegia and hemiparesis following cerebral infarction affecting left non-dominant side; J96.11 Chronic respiratory failure with hypoxia; I13.0 Hypertensive heart and chronic kidney disease with heart failure and stage 1 through stage 4 chronic kidney disease, or unspecified chronic kidney disease; R56.9 Unspecified convulsions; I50.9 Heart failure, unspecified; E78.5 Hyperlipidemia, unspecified; J44.9 Chronic obstructive pulmonary disease, unspecified; N40.0 Benign prostatic hyperplasia without lower urinary tract symptoms; F41.9 Anxiety disorder, unspecified; R55 Syncope and collapse; I71.2 Thoracic aortic aneurysm, without rupture; Z98.61 Coronary angioplasty status; Z95.0 Presence of cardiac pacemaker; Z95.1 Presence of aortocoronary bypass graft; I48.2 Chronic atrial fibrillation; N18.3 Chronic kidney disease, stage 3 (moderate); I25.119 Atherosclerotic heart disease of native coronary artery with unspecified angina pectoris
CPT/HCPCS: 36415; 70450-TC; 71045-TC-FY; 72125-TC; 80048; 80053; 81003; 81015; 82550; 82803; 83735; 83880; 84100; 84484; 85025; 85610; 85730; 87086; 93005; 93010; 93306-TC; 97116-GP; 97161-GP; 99282-25; G0378; J0131; J7030; J7620

== ENCOUNTER 2018-03-25 09:33 | Observation (INO) | payer OTHER ==
--- NOTE | 2018-03-25 09:40 | PDOC ---
History of Present Illness - General History Source: Patient Exam Limitations: No Limitations - History of Present Illness Initial Comments: 03/25/18 10:23 The patient is a 77 year old male, with a significant PMH of A-fib (on xarelto) , HTN, HLD, CAD s/p stent s/p pacemaker s/p CABG, PAD, s/p LE bypass, seizure, COPD c/b chronic hypoxic respiratory failure, h/o CVA with residual left sided weakness, OA, and CKD, who presents to the emergency department with 5 days of dark tarry stool. The patient states he endorses associated symptoms of fatigue and minimal PO intake. The patient reports he is on 3 liters of 02 secondary to his COPD and O2 saturation is usually around low 90s. The patient denies chest pain, shortness of breath, headache and dizziness. Denies fever, chills, nausea, vomit and constipation. Denies dysuria, frequency, urgency and hematuria. 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) Diabetes: No GI Disorders: No Disorders: Yes (BPH) HTN: Yes Hypercholesterolemia: Yes Liver Disease: No Seizures: Yes Thyroid Disease: No - Surgical History Abdominal Surgery: Yes (S/P AAA) Appendectomy: No Cardiac Surgery: Yes (BYPASS 2013, PPM/ AAA REPAIR/2011) Cholecystectomy: No Lung Surgery: No Neurologic Surgery: No Orthopedic Surgery: No - Immunization History Immunization Up to Date: Yes - Suicide/Smoking/Psychosocial Hx Smoking History: Former smoker Have you smoked in the past 12 months: No If you are a former smoker, when did you quit?: 2007 Cigars Per Day: 0 Hx Alcohol Use: No Drug/Substance Use Hx: No Substance Use Type: None Hx Substance Use Treatment: No <Danii Bella - Last Filed: 03/25/18 11:53> - Past Medical History Allergies/Adverse Reactions: Allergies Allergy/AdvReac Type Severity Reaction Status Date / Time No Known Allergies Allergy Verified 03/25/18 09:49 Home Medications: Ambulatory Orders Duloxetine HCl [Cymbalta -] 60 mg PO DAILY 11/08/17 Isosorbide Dinitrate [Isordil -] 20 mg PO BID 11/08/17 Pantoprazole Sodium [Protonix] 40 mg PO DAILY 11/08/17 Pregabalin [Lyrica] 100 mg PO TID 11/08/17 Tamsulosin HCl [Flomax] 0.4 mg PO HS 11/08/17 Albuterol 0.083% Nebulizer Suki [Ventolin 0.083% Nebulizer Soln -] 1 amp NEB Q6H PRN amp 12/10/17 Apixaban [Eliquis -] 2.5 mg PO BID #60 tablet 12/11/17 Budesonide/Formeterol Fumarate [SYMBICORT 160/4.5mcg -] 2 puff IH BID #1 inhaler 12/11/17 Metoprolol Tartrate [Lopressor -] 37.5 mg PO BID #90 tablet 12/11/17 levETIRAcetam [Keppra -] 750 mg PO BID #45 tablet 12/26/17 Atorvastatin Ca [Lipitor] 10 mg PO HS 03/25/18 Ferrous Sulfate 325 mg PO DAILY 03/25/18 Furosemide [Lasix] 20 mg PO DAILY 03/25/18 Review of Systems - Review of Systems Able to Perform ROS?: Yes Comments:: 03/25/18 10:24 GENERAL/CONSTITUTIONAL:+Weakness No fever or chills. HEAD, EYES, EARS, NOSE AND THROAT: No change in vision. No ear pain or discharge. No sore throat. CARDIOVASCULAR: No chest pain or shortness of breath. RESPIRATORY: No cough, wheezing, or hemoptysis. GASTROINTESTINAL: +Diarrhea. No nausea, vomiting or constipation. GENITOURINARY: No dysuria, frequency, or change in urination. MUSCULOSKELETAL: No joint or muscle swelling or pain. No neck or back pain. SKIN: No rash NEUROLOGIC: No headache, vertigo, loss of consciousness, or change in strength/ sensation. ENDOCRINE: No increased thirst. No abnormal weight change. HEMATOLOGIC/LYMPHATIC: No anemia, easy bleeding, or history of blood clots. ALLERGIC/IMMUNOLOGIC: No hives or skin allergy. <Yvonne Hall - Last Filed: 03/25/18 10:23> *Physical Exam - Vital Signs Last Vital Signs Temp Pulse Resp BP Pulse Ox 98.6 F 60 24 H 150/87 90 L 03/25/18 09:45 03/25/18 09:45 03/25/18 09:45 03/25/18 09:45 03/25/18 09:45 - Physical Exam Comments: 03/25/18 10:24 GENERAL: Awake, alert, and fully oriented, in no acute distress HEAD: No signs of trauma EYES: PERRLA, EOMI, sclera anicteric, conjunctiva clear ENT: Auricles normal inspection, hearing grossly normal, nares patent, oropharynx clear without exudates. Moist mucosa NECK: Normal ROM, supple, no lymphadenopathy, JVD, or masses LUNGS: +bilateral crackles at the base of the lung. No wheezes. HEART: Regular rate and rhythm, normal S1 and S2, no murmurs, rubs or gallops ABDOMEN: Soft, nontender, normoactive bowel sounds. No guarding, no rebound. No masses RECTAL:+Brown stool EXTREMITIES: Normal range of motion, no edema. No clubbing or cyanosis. No cords, erythema, or tenderness NEUROLOGICAL: +Dysarthria. Cranial nerves II through XII grossly intact. SKIN: Warm, Dry, normal turgor, no rashes or lesions noted. <Yvonne Hall - Last Filed: 03/25/18 10:23> Moderate Sedation - Procedure Monitoring Vital Signs: Procedure Monitoring Vital Signs Temperature 98.6 F 03/25/18 09:45 Pulse Rate 60 03/25/18 09:45 Respiratory Rate 24 H 03/25/18 09:45 Blood Pressure 150/87 03/25/18 09:45 O2 Sat by Pulse Oximetry (%) 90 L 03/25/18 09:45 <Yvonne Hall - Last Filed: 03/25/18 10:23> ED Treatment Course - LABORATORY CBC & Chemistry Diagram: 03/25/18 10:00 03/25/18 10:00 <Danii Bella - Last Filed: 03/25/18 11:53> Medical Decision Making - Medical Decision Making 03/25/18 11:51 Pt presents to the ED complaining of multiple episodes of diarrhea over the last 4 days. states that he has minimal PO intake of both solids and liquids at home. While labs do not show evidence of dehydration, given his reported profuse diarrhea at home and his decreased PO intake, will admit to medicine for observation and IV hydration. <Danii Bella - Last Filed: 03/25/18 11:53> *DC/Admit/Observation/Transfer - Attestations Scribe Attestion: 03/25/18 10:25 Documentation prepared by Yvonne Hall, acting as medical device sales representative for Danii Bella MD. <Yvonne Hall - Last Filed: 03/25/18 10:23> - Discharge Dispostion Decision to Admit order: Yes <Danii Bella - Last Filed: 03/25/18 11:53> Diagnosis at time of Disposition: Dehydration Diarrhea Qualifiers: Diarrhea type: unspecified type Qualified Code(s): R19.7 - Diarrhea, unspecified - Discharge Dispostion Condition at time of disposition: Good - Referrals Referrals: Alyssa Solomon [Primary Care Provider] - - Patient Instructions - Post Discharge Activity
[2018-03-25] MEDS ORDERED: SODIUM CHLORIDE 0.9% 500 ML INFUS.BAG IV ONE (10:04)
[2018-03-25 10:25] LABS: VENOUS PC02 59.5 mmHg (38-52); VENOUS PH 7.31 (7.32-7.42); VENOUS PO2 22.2 mmHg (28-48)
[2018-03-25 10:49] LABS: BASO % 0.5 % (0-2.0); EOS % 1.8 % (0-4.5); HEMATOCRIT 47.2 % (35.4-49); HEMOGLOBIN 14.5 GM/dL (11.7-16.9); LYMPH % 14.3 % (8-40); MCH 26.9 pg (25.7-33.7); MCHC 30.8 g/dl (32.0-35.9); MEAN CELL VOLUME 87.3 fl (80-96); MEAN PLT VOLUME 9.5 fl (7.5-11.1); MONO % 9.3 % (3.8-10.2); NEUT % 74.1 % (42.8-82.8); PLATELET COUNT 157 K/MM3 (134-434); RDW 16.6 % (11.9-15.9); WHITE BLOOD COUNT 6.5 K/mm3 (4.0-10.0)
[2018-03-25 11:04] LABS: INR 1.37 (0.83-1.09); PROTHROMBIN TIME (PATIENT) 16.2 SEC (9.7-13.0)
[2018-03-25 11:06] LABS: ACTIVATED PTT 41.1 SECONDS (25.2-36.5)
[2018-03-25 11:25] LABS: ALBUMIN 3.5 g/dl (3.4-5.0); ALK PHOS 65 U/L (45-117); ANION GAP 6 MMOL/L (8-16); BILIRUBIN,TOTAL 0.7 mg/dL (0.2-1); BLOOD UREA NITROGEN 19 mg/dL (7-18); CALCIUM 9.2 mg/dL (8.5-10.1); CHLORIDE 107 mmol/L (98-107); CO2 30 mmol/L (21-32); CREATININE 1.2 mg/dL (0.55-1.3); GLUCOSE,RANDOM 68 mg/dL (74-106); POTASSIUM 4.1 mmol/L (3.5-5.1); SGOT/AST 16 U/L (15-37); SGPT/ALT 15 U/L (13-61); SODIUM 143 mmol/L (136-145); TOT PROT 6.7 g/dl (6.4-8.2)
[2018-03-25] MEDS ORDERED: PREGABALIN 100 MG CAPSULE PO ONE (11:35)
[2018-03-25] MEDS ORDERED: DULoxetine HCL 60 MG CAPSULE.DR PO ONE (11:35)
[2018-03-25] MEDS ORDERED: ALBUTEROL SO4 0.083% IH SOL 2.5 MG/3 ML VIAL.NEB. NEB PRN (11:49)
[2018-03-25] MEDS ORDERED: ACETAMINOPHEN 325 MG TABLET (FP) PO PRN (11:53)
[2018-03-25] MEDS ORDERED: DULoxetine HCL 30 MG CAPSULE.DR (FP) PO ONE ×2 (12:00→12:11)
[2018-03-25] MEDS: SODIUM CHLORIDE 1,000 ML IV SCH ×2 (12:05→17:47)
[2018-03-25] MEDS: PREGABALIN 100 MG CAPSULE PO SCH ×2 (14:36→22:11)
[2018-03-25 15:33] VITALS: BMI 26.4
[2018-03-25] MEDS: ISOSORBIDE DINITRATE 20 MG TABLET (FP) PO SCH (17:38)
[2018-03-25] MEDS ORDERED: PT OWN MED DRAWER 7, Y5N ONE (20:35)
[2018-03-25] MEDS ORDERED: levETIRAcetam 250 MG TABLET (FP) PO SCH (22:00)
[2018-03-25] MEDS: ATORVASTATIN CA 10 MG TABLET (FP) PO SCH (22:11)
[2018-03-25] MEDS: METOPROLOL TARTRATE 25 MG TABLET (FP) PO SCH (22:11)
[2018-03-25] MEDS: TAMSULOSIN HCL 0.4 MG CAP PO SCH (22:12)
[2018-03-25] MEDS: APIXABAN 2.5 MG TABLET PO SCH (22:12)
[2018-03-25] MEDS: levETIRAcetam 250 MG TABLET (FP) PO SCH (22:12)
[2018-03-25] MEDS: BUDESONIDE/FORMETEROL FUMARATE 160/4.5 mcg INHALER IH SCH (22:19)
[2018-03-26] MEDS: PREGABALIN 100 MG CAPSULE PO SCH ×3 (05:56→22:09)
[2018-03-26 06:30] LABS: BASO % 0.7 % (0-2.0); EOS % 3.4 % (0-4.5); HEMATOCRIT 41.2 % (35.4-49); MCH 27.3 pg (25.7-33.7); MCHC 31.6 g/dl (32.0-35.9); MEAN CELL VOLUME 86.5 fl (80-96); MONO % 11.2 % (3.8-10.2); NEUT % 64.7 % (42.8-82.8); PLATELET COUNT 133 K/MM3 (134-434); RBC 4.76 M/mm3 (4.00-5.60); RDW 15.8 % (11.9-15.9); WHITE BLOOD COUNT 5.3 K/mm3 (4.0-10.0)
[2018-03-26 07:03] LABS: ALBUMIN 2.8 g/dl (3.4-5.0); ALK PHOS 50 U/L (45-117); ANION GAP 5 MMOL/L (8-16); BILIRUBIN,TOTAL 0.7 mg/dL (0.2-1); BLOOD UREA NITROGEN 15 mg/dL (7-18); CALCIUM 8.2 mg/dL (8.5-10.1); CHLORIDE 112 mmol/L (98-107); CO2 27 mmol/L (21-32); CREATININE 0.9 mg/dL (0.55-1.3); GLUCOSE,RANDOM 73 mg/dL (74-106); POTASSIUM 3.7 mmol/L (3.5-5.1); SGOT/AST 13 U/L (15-37); SGPT/ALT 10 U/L (13-61); SODIUM 145 mmol/L (136-145); TOT PROT 5.6 g/dl (6.4-8.2)
[2018-03-26] MEDS ORDERED: PT OWN MED DRAWER 7, Y5N ONE ×3 (09:53→21:44)
[2018-03-26] MEDS: FERROUS SO4 325 MG TABLET (FP) PO SCH (09:58)
[2018-03-26] MEDS: PANTOPRAZOLE 40 MG TABLET (FP) PO SCH (09:59)
[2018-03-26] MEDS: BUDESONIDE/FORMETEROL FUMARATE 160/4.5 mcg INHALER IH SCH ×2 (09:59→22:10)
[2018-03-26] MEDS: DULoxetine HCL 30 MG CAPSULE.DR (FP) PO SCH (09:59)
[2018-03-26] MEDS: APIXABAN 2.5 MG TABLET PO SCH ×2 (09:59→22:09)
[2018-03-26] MEDS: levETIRAcetam 250 MG TABLET (FP) PO SCH ×2 (09:59→22:08)
[2018-03-26] MEDS: FUROSEMIDE 20 MG TABLET (FP) PO SCH (09:59)
[2018-03-26] MEDS: METOPROLOL TARTRATE 25 MG TABLET (FP) PO SCH ×2 (09:59→22:08)
[2018-03-26] MEDS: ISOSORBIDE DINITRATE 20 MG TABLET (FP) PO SCH ×2 (09:59→17:04)
--- NOTE | 2018-03-26 10:53 | CON.GI ---
Consult Consult Specialty:: Gastroenterology Referred by:: Jessica Mcdowell NP Reason for Consultation:: Diarrhea - History of Present Illness Chief Complaint: Diarrhea for 5 days History of Present Illness: Patient is a 77 year old male with past medical history of A-fib (on Xarelto), HTN, HLD, CAD s/p stent s/p pacemaker s/p CABG, PAD, s/p LE bypass, COPD c/b chronic hypoxic respiratory failure, CVA with left sided residual weakness, OA, CKD. Patient initially presented to ED with complaints of non-bloody diarrhea x 5 days. States diarrhea would occur 10-12 times a day and awaken him at night. He does admit to recent antibiotic use. States he did notice "a couple of times" dark colored stool. Denies recent travel, denies recent sick contacts , denies fever. Stool OB (-), c-diff and stool cultures pending. Patient seen with Miss Biswas - History Source History Provided By: Patient Limitations to Obtaining History: No Limitations - Past Medical History SHOVELER: Yes: CVA, Seizure Cardio/Vascular: Yes: AFIB, Aneurysm, CAD, CHF, HTN, Hyperlipdemia, Murmur, Other (peripheral artery disease) Pulmonary: Yes: COPD Renal/: Yes: BPH - Past Surgical History Past Surgical History: Yes: AAA Repair, Permanent Pacemaker - Alcohol/Substance Use Hx Alcohol Use: No History of Substance Use: reports: None - Smoking History Smoking history: Former smoker Have you smoked in the past 12 months: No If you are a former smoker, when did you quit?: 2007 - Social History Usual Living Arrangement: With Spouse ADL: Family Assistance History of Recent Travel: No Home Medications - Allergies Allergies/Adverse Reactions: Allergies Allergy/AdvReac Type Severity Reaction Status Date / Time No Known Allergies Allergy Verified 03/25/18 09:49 - Home Medications Home Medications: Ambulatory Orders Duloxetine HCl [Cymbalta -] 60 mg PO DAILY 11/08/17 Isosorbide Dinitrate [Isordil -] 20 mg PO BID 11/08/17 Pantoprazole Sodium [Protonix] 40 mg PO DAILY 11/08/17 Pregabalin [Lyrica] 100 mg PO TID 11/08/17 Tamsulosin HCl [Flomax] 0.4 mg PO HS 11/08/17 Albuterol 0.083% Nebulizer Suki [Ventolin 0.083% Nebulizer Soln -] 1 amp NEB Q6H PRN amp 12/10/17 Apixaban [Eliquis -] 2.5 mg PO BID #60 tablet 12/11/17 Budesonide/Formeterol Fumarate [SYMBICORT 160/4.5mcg -] 2 puff IH BID #1 inhaler 12/11/17 Metoprolol Tartrate [Lopressor -] 37.5 mg PO BID #90 tablet 12/11/17 levETIRAcetam [Keppra -] 750 mg PO BID #45 tablet 12/26/17 Atorvastatin Ca [Lipitor] 10 mg PO HS 03/25/18 Ferrous Sulfate 325 mg PO DAILY 03/25/18 Furosemide [Lasix] 20 mg PO DAILY 03/25/18 Review of Systems - Review of Systems Constitutional: reports: No Symptoms Eyes: reports: No Symptoms HENT: reports: No Symptoms Neck: reports: No Symptoms Cardiovascular: reports: No Symptoms Gastrointestinal: reports: Diarrhea Genitourinary: reports: No Symptoms Breasts: reports: No Symptoms Reported Musculoskeletal: reports: No Symptoms Integumentary: reports: No Symptoms Neurological: reports: No Symptoms Endocrine: reports: No Symptoms Hematology/Lymphatic: reports: No Symptoms Psychiatric: reports: No Symptoms Physical Exam-GI Vital Signs: Vital Signs Temperature 97.8 F 03/26/18 05:00 Pulse Rate 60 03/26/18 05:00 Respiratory Rate 18 03/26/18 05:00 Blood Pressure 139/84 03/26/18 05:00 O2 Sat by Pulse Oximetry (%) 95 03/26/18 03:00 Constitutional: Yes: Well Nourished, No Distress, Calm Eyes: Yes: Conjunctiva Clear Cardiovascular: Yes: WNL, Regular Rate and Rhythm Respiratory: Yes: Regular, CTA Bilaterally Gastrointestinal Inspection: Yes: WNL ...Auscultate: Yes: Normoactive Bowel Sounds ...Palpate: Yes: Soft, Tenderness (lower abdomen) ...Percussion: Yes: Tympanitic, Other (high tympany) Extremities: Yes: WNL Neurological: Yes: Alert, Oriented Psychiatric: Yes: Alert, Oriented Labs: CBC, BMP 03/26/18 05:35 03/26/18 05:35 INR, PTT INR 1.37 (0.83-1.09) H 03/25/18 10:00 Home Medications Medication Instructions Recorded Duloxetine HCl [Cymbalta -] 60 mg PO DAILY 11/08/17 Isosorbide Dinitrate [Isordil -] 20 mg PO BID 11/08/17 Pantoprazole Sodium [Protonix] 40 mg PO DAILY 11/08/17 Pregabalin [Lyrica] 100 mg PO TID 11/08/17 Tamsulosin HCl [Flomax] 0.4 mg PO HS 11/08/17 Albuterol 0.083% Nebulizer Suki 1 amp NEB Q6H PRN amp 12/10/17 [Ventolin 0.083% Nebulizer Soln -] Apixaban [Eliquis -] 2.5 mg PO BID #60 tablet 12/11/17 Budesonide/Formeterol Fumarate 2 puff IH BID #1 inhaler 12/11/17 [SYMBICORT 160/4.5mcg -] Metoprolol Tartrate [Lopressor -] 37.5 mg PO BID #90 tablet 12/11/17 levETIRAcetam [Keppra -] 750 mg PO BID #45 tablet 12/26/17 Atorvastatin Ca [Lipitor] 10 mg PO HS 03/25/18 Ferrous Sulfate 325 mg PO DAILY 03/25/18 Furosemide [Lasix] 20 mg PO DAILY 03/25/18 Problem List - Problems (1) Diarrhea Assessment/Plan: R>Flagyl 500mg every 8 hours low fiber lactose free diet Code(s): R19.7 - [place]ARRHE[place], UNSPECIFIED Qualifiers: Diarrhea type: unspecified type Qualified Code(s): R19.7 - Diarrhea, unspecified
--- NOTE | 2018-03-26 12:04 | HP ---
Admitting History and Physical - Primary Care Physician PCP: Xavier Escamilla - Admission Chief Complaint: Diarrhea. FTT History of Present Illness: The patient is a 77 year old male, with a significant PMH of A-fib (on xarelto) , HTN, HLD, CAD s/p stent s/p pacemaker s/p CABG, PAD, s/p LE bypass, seizure, COPD c/b chronic hypoxic respiratory failure, h/o CVA with residual left sided weakness, OA, and CKD, who presents to the emergency department with 5 days of dark tarry stool. The patient states he endorses associated symptoms of fatigue and minimal PO intake. The patient reports he is on 3 liters of 02 secondary to his COPD and O2 saturation is usually around low 90s. The patient denies chest pain, shortness of breath, headache and dizziness. Denies fever, chills, nausea, vomit and constipation. Denies dysuria, frequency, urgency and hematuria. 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, Seizure Cardiovascular: Yes: AFIB, Aneurysm, CAD, CHF, HTN, Hyperlipdemia, Murmur, Other (peripheral artery disease) Pulmonary: Yes: COPD Renal/: Yes: BPH - Past Surgical History Past Surgical History: Yes: AAA Repair, Permanent Pacemaker - Smoking History Smoking history: Former smoker Have you smoked in the past 12 months: No If you are a former smoker, when did you quit?: 2007 - Alcohol/Substance Use Hx Alcohol Use: No History of Substance Use: reports: None - Social History ADL: Family Assistance History of Recent Travel: No Home Medications - Allergies Allergies/Adverse Reactions: Allergies Allergy/AdvReac Type Severity Reaction Status Date / Time No Known Allergies Allergy Verified 03/25/18 09:49 - Home Medications Home Medications: Ambulatory Orders Duloxetine HCl [Cymbalta -] 60 mg PO DAILY 11/08/17 Isosorbide Dinitrate [Isordil -] 20 mg PO BID 11/08/17 Pantoprazole Sodium [Protonix] 40 mg PO DAILY 11/08/17 Pregabalin [Lyrica] 100 mg PO TID 11/08/17 Tamsulosin HCl [Flomax] 0.4 mg PO HS 11/08/17 Albuterol 0.083% Nebulizer Suki [Ventolin 0.083% Nebulizer Soln -] 1 amp NEB Q6H PRN amp 12/10/17 Apixaban [Eliquis -] 2.5 mg PO BID #60 tablet 12/11/17 Budesonide/Formeterol Fumarate [SYMBICORT 160/4.5mcg -] 2 puff IH BID #1 inhaler 12/11/17 Metoprolol Tartrate [Lopressor -] 37.5 mg PO BID #90 tablet 12/11/17 levETIRAcetam [Keppra -] 750 mg PO BID #45 tablet 12/26/17 Atorvastatin Ca [Lipitor] 10 mg PO HS 03/25/18 Ferrous Sulfate 325 mg PO DAILY 03/25/18 Furosemide [Lasix] 20 mg PO DAILY 03/25/18 Review of Systems - Review of Systems Constitutional: reports: Loss of Appetite, Weakness Eyes: reports: No Symptoms HENT: reports: No Symptoms Neck: reports: No Symptoms Cardiovascular: reports: No Symptoms Respiratory: reports: No Symptoms Gastrointestinal: reports: Diarrhea Genitourinary: reports: No Symptoms Breasts: reports: No Symptoms Reported Musculoskeletal: reports: Muscle Weakness Integumentary: reports: No Symptoms Neurological: reports: No Symptoms Endocrine: reports: No Symptoms Hematology/Lymphatic: reports: No Symptoms Psychiatric: reports: No Symptoms Physical Examination Vital Signs: Vital Signs Temperature 97.3 F L 03/26/18 09:00 Pulse Rate 62 03/26/18 09:00 Respiratory Rate 18 03/26/18 09:00 Blood Pressure 125/84 03/26/18 09:00 O2 Sat by Pulse Oximetry (%) 95 03/26/18 03:00 Constitutional: Yes: Well Nourished, No Distress, Calm Cardiovascular: Yes: Regular Rate and Rhythm Respiratory: Yes: Regular Gastrointestinal: Yes: Normal Bowel Sounds, Soft Renal/: Yes: WNL Musculoskeletal: Yes: Muscle Weakness Extremities: Yes: WNL Edema: No Peripheral Pulses WNL: Yes Neurological: Yes: Alert, Pre-Existing Deficit Psychiatric: Yes: Alert Labs: CBC, BMP 03/26/18 05:35 03/26/18 05:35 Problem List - Problems (1) Weakness Assessment/Plan: -2/2 to poor oral intake and diarrhea -labs unremarkable -Physical therapy Code(s): R53.1 - WEAKNESS (2) Diarrhea Assessment/Plan: -Stool for micro pending -2 loose BM overnight -GI consult -Stool OB negative Code(s): R19.7 - DIARRHEA, UNSPECIFIED Qualifiers: Diarrhea type: unspecified type Qualified Code(s): R19.7 - Diarrhea, unspecified Assessment/Plan see problem list Spoke to at bedside
[2018-03-26 14:14] LABS: URINE APPEARANCE CLEAR; URINE BILIRUBIN NEGATIVE (<2.0 mg/dL); URINE COLOR DKYELLOW; URINE GLUCOSE (UA) NEGATIVE (NEGATIVE); URINE KETONE TRACE (NEGATIVE); URINE LEUK ESTERASE NEGATIVE (NEGATIVE); URINE NITRITE NEGATIVE (NEGATIVE); URINE PROTEIN 2+ (NEGATIVE); URINE UROBILINOGEN NEGATIVE mg/dL (0.2-1.0)
[2018-03-26 14:19] LABS: EPI CELLS RARE /HPF (FEW); URINE MUCUS RARE
--- NOTE | 2018-03-26 19:02 | EKG ---
Test Reason : Blood Pressure : / mmHG Vent. Rate : 078 BPM Atrial Rate : 077 BPM P-R Int : 000 ms QRS Dur : 134 ms QT Int : 418 ms P-R-T Axes : 009 264 072 degrees QTc Int : 476 ms Ventricular-paced rhythm WITH OCCASIONAL AV dual-paced complexes Biventricular pacemaker detected ABNORMAL ECG WHEN COMPARED WITH ECG OF 26-DEC-2017 03:46, PREMATURE VENTRICULAR COMPLEXES ARE NO LONGER PRESENT VENT. RATE HAS INCREASED BY 13 BPM Confirmed by HAYLIE NAIR MD ([id number]) on 03/26/2018 7:01:42 PM Referred By: Confirmed By:HAYLIE NAIR MD
[2018-03-26] MEDS: ATORVASTATIN CA 10 MG TABLET (FP) PO SCH (22:08)
[2018-03-26] MEDS: TAMSULOSIN HCL 0.4 MG CAP PO SCH (22:09)
[2018-03-27] MEDS: PREGABALIN 100 MG CAPSULE PO SCH ×3 (06:29→21:22)
[2018-03-27] MEDS ORDERED: PT OWN MED DRAWER 7, Y5N ONE ×3 (09:49→21:20)
[2018-03-27] MEDS: FERROUS SO4 325 MG TABLET (FP) PO SCH (09:52)
[2018-03-27] MEDS: PANTOPRAZOLE 40 MG TABLET (FP) PO SCH (09:52)
[2018-03-27] MEDS: APIXABAN 2.5 MG TABLET PO SCH ×2 (09:52→21:23)
[2018-03-27] MEDS: DULoxetine HCL 30 MG CAPSULE.DR (FP) PO SCH (09:52)
[2018-03-27] MEDS: METOPROLOL TARTRATE 25 MG TABLET (FP) PO SCH ×2 (09:52→21:22)
[2018-03-27] MEDS: FUROSEMIDE 20 MG TABLET (FP) PO SCH (09:52)
[2018-03-27] MEDS: levETIRAcetam 250 MG TABLET (FP) PO SCH ×2 (09:52→21:23)
[2018-03-27] MEDS: ISOSORBIDE DINITRATE 20 MG TABLET (FP) PO SCH ×2 (09:53→18:03)
[2018-03-27] MEDS: BUDESONIDE/FORMETEROL FUMARATE 160/4.5 mcg INHALER IH SCH ×2 (09:53→21:22)
--- NOTE | 2018-03-27 12:05 | PN ---
Progress Note, Physician Chief Complaint: patient admitted for diarrhea on flagyl seen by GI - Current Medication List Current Medications: Active Medications Acetaminophen (Tylenol -) 650 mg PO Q6H PRN PRN Reason: PAIN LEVEL 1-5/FEVER Albuterol Sulfate (Ventolin 0.083% Nebulizer Soln -) 1 amp NEB Q6H PRN PRN Reason: SHORT OF BREATH/WHEEZING Apixaban (Eliquis -) 2.5 mg PO BID [facility] Last Admin: 03/27/18 09:52 Dose: 2.5 mg Atorvastatin Calcium (Lipitor -) 10 mg PO HS [facility] Last Admin: 03/26/18 22:08 Dose: 10 mg Budesonide/Formoterol Fumarate (Symbicort 160/4.5mcg -) 2 puff IH BID [facility] Last Admin: 03/27/18 09:53 Dose: 2 puff Duloxetine HCl (Cymbalta -) 60 mg PO DAILY [facility] Last Admin: 03/27/18 09:52 Dose: 60 mg Ferrous Sulfate (Feosol -) 325 mg PO DAILY@0800 [facility] Last Admin: 03/27/18 09:52 Dose: 325 mg Furosemide (Lasix -) 20 mg PO DAILY [facility] Last Admin: 03/27/18 09:52 Dose: 20 mg Metronidazole (Flagyl 500mg Premixed Ivpb -) 500 mg in 100 mls @ 100 mls/hr IVPB Q8H-IV [facility] Last Admin: 03/27/18 09:52 Dose: 100 mls/hr Isosorbide Dinitrate (Isordil -) 20 mg PO BIDISORDIL [facility] Last Admin: 03/27/18 09:53 Dose: 20 mg Levetiracetam (Keppra -) 750 mg PO BID [facility] Last Admin: 03/27/18 09:52 Dose: 750 mg Metoprolol Tartrate (Lopressor -) 37.5 mg PO BID [facility] Last Admin: 03/27/18 09:52 Dose: 37.5 mg Pantoprazole Sodium (Protonix -) 40 mg PO DAILY [facility] Last Admin: 03/27/18 09:52 Dose: 40 mg Pregabalin (Lyrica -) 100 mg PO TID [facility] Last Admin: 03/27/18 06:29 Dose: 100 mg Tamsulosin HCl (Flomax -) 0.4 mg PO HS [facility] Last Admin: 03/26/18 22:09 Dose: 0.4 mg - Objective Vital Signs: Vital Signs Temperature 97.4 F L 03/27/18 09:00 Pulse Rate 92 H 03/27/18 09:00 Respiratory Rate 18 03/27/18 09:00 Blood Pressure 121/66 03/27/18 09:00 O2 Sat by Pulse Oximetry (%) 94 L 03/27/18 03:00 Constitutional: Yes: Calm Cardiovascular: Yes: Regular Rate and Rhythm, S1, S2 Respiratory: Yes: CTA Bilaterally Gastrointestinal: Yes: Normal Bowel Sounds, Soft Edema: Yes Neurological: Yes: Alert, Oriented Labs: CBC, BMP 03/26/18 05:35 03/26/18 05:35 INR, PTT INR 1.37 (0.83-1.09) H 03/25/18 10:00 Problem List - Problems (1) Diarrhea Assessment/Plan: seen by GI on flagyl and lactose free diet Microbiology 03/25/18 13:50 Stool Clostridium difficile Antigen (YNES) - Final 03/25/18 13:50 Stool Escherichia coli 0157 Culture - Final NO GROWTH OF VIBRIO SPECIES OBTAINED NO GROWTH OF E COLI 0157 OBTAINED 03/25/18 13:50 Stool Yersinia Culture - Preliminary Non Lactose Fermenting Gnb NO ENTERIC PATHOGENS, 24 HOURS, ON PRIMARY PLATES Code(s): R19.7 - DIARRHEA, UNSPECIFIED Qualifiers: Diarrhea type: unspecified type Qualified Code(s): R19.7 - Diarrhea, unspecified (2) Weakness Assessment/Plan: PT eval could be secondary to diarrhea Code(s): R53.1 - WEAKNESS (3) CAD (coronary artery disease) Assessment/Plan: statin,imdur,metoprolol Code(s): I25.10 - ATHSCL HEART DISEASE OF [place] CORONARY ARTERY W/O ANG PCTRS Qualifiers: Coronary Disease-Associated Artery/Lesion type: [place] artery Associated angina: with stable angina (4) Afib Assessment/Plan: eliquis bid rate control Code(s): I48.91 - UNSPECIFIED ATRIAL FIBRILLATION Qualifiers: Atrial fibrillation type: chronic Qualified Code(s): I48.2 - Chronic atrial fibrillation (5) Seizure Assessment/Plan: keprra Code(s): R56.9 - UNSPECIFIED CONVULSIONS
--- NOTE | 2018-03-27 18:19 | PN ---
GI Progress Note Subjective: diarrhea resolved, no nausea and no vomting - Objective Vital Signs: Vital Signs Temperature 97.8 F 03/27/18 14:59 Pulse Rate 60 03/27/18 14:59 Respiratory Rate 22 H 03/27/18 14:59 Blood Pressure 132/82 03/27/18 14:59 O2 Sat by Pulse Oximetry (%) 94 L 03/27/18 11:00 Constitutional: Well Nourished Eyes: Yes: Conjunctiva Clear HENT: Yes: Atraumatic Neck: Yes: Trachea Midline Cardiovascular: Yes: Regular Rate and Rhythm Respiratory: Yes: CTA Bilaterally ...Palpate: Yes: Soft. No: Firm/Rigid, Guarding, Hepatomegaly, Mass, Pulsatile Mass, Splenomegaly, Tenderness Labs: CBC, BMP 03/26/18 05:35 03/26/18 05:35 INR, PTT INR 1.37 (0.83-1.09) H 03/25/18 10:00 Problem List - Problems (1) Diarrhea Assessment/Plan: R> continue Flagyl 250 mg tid for 2 weeks low residue lactose free diet Code(s): R19.7 - DIARRHEA, UNSPECIFIED Qualifiers: Diarrhea type: unspecified type Qualified Code(s): R19.7 - Diarrhea, unspecified
[2018-03-27] MEDS: ATORVASTATIN CA 10 MG TABLET (FP) PO SCH (21:22)
[2018-03-27] MEDS: TAMSULOSIN HCL 0.4 MG CAP PO SCH (21:23)
[2018-03-28] MEDS: PREGABALIN 100 MG CAPSULE PO SCH ×2 (06:29→14:25)
[2018-03-28 08:14] LABS: ALBUMIN 2.9 g/dl (3.4-5.0); ALK PHOS 51 U/L (45-117); ANION GAP 8 MMOL/L (8-16); BILIRUBIN,TOTAL 0.3 mg/dL (0.2-1); BLOOD UREA NITROGEN 13 mg/dL (7-18); CALCIUM 8.1 mg/dL (8.5-10.1); CHLORIDE 112 mmol/L (98-107); CO2 26 mmol/L (21-32); CREATININE 1.1 mg/dL (0.55-1.3); GLUCOSE,RANDOM 89 mg/dL (74-106); MAGNESIUM 1.7 mg/dL (1.8-2.4); POTASSIUM 3.5 mmol/L (3.5-5.1); SGOT/AST 11 U/L (15-37); SGPT/ALT 10 U/L (13-61); SODIUM 146 mmol/L (136-145); TOT PROT 5.5 g/dl (6.4-8.2)
[2018-03-28] MEDS ORDERED: PT OWN MED DRAWER 7, Y5N ONE (09:43)
[2018-03-28] MEDS: METOPROLOL TARTRATE 25 MG TABLET (FP) PO SCH (09:46)
[2018-03-28] MEDS: levETIRAcetam 250 MG TABLET (FP) PO SCH (09:46)
[2018-03-28] MEDS: FERROUS SO4 325 MG TABLET (FP) PO SCH (09:49)
[2018-03-28] MEDS: APIXABAN 2.5 MG TABLET PO SCH (09:49)
[2018-03-28] MEDS: DULoxetine HCL 30 MG CAPSULE.DR (FP) PO SCH (09:49)
[2018-03-28] MEDS: PANTOPRAZOLE 40 MG TABLET (FP) PO SCH (09:49)
[2018-03-28] MEDS: ISOSORBIDE DINITRATE 20 MG TABLET (FP) PO SCH (09:50)
[2018-03-28] MEDS: FUROSEMIDE 20 MG TABLET (FP) PO SCH (09:50)
[2018-03-28] MEDS: BUDESONIDE/FORMETEROL FUMARATE 160/4.5 mcg INHALER IH SCH (09:51)
[2018-03-28] MEDS ORDERED: MAGNESIUM SULF 50% (8.12 MEQ/2 ML-1 GM VIAL) IVPB ONE (11:00)
[2018-03-28] MEDS ORDERED: POTASSIUM CHLORIDE ORAL LIQUID 20 MEQ/15 ML PO ONE (13:24)
--- NOTE | 2018-03-28 13:25 | DS ---
Physical Examination Vital Signs: Vital Signs Temperature 98 F 03/28/18 10:00 Pulse Rate 62 03/28/18 10:00 Respiratory Rate 18 03/28/18 11:00 Blood Pressure 133/62 03/28/18 10:00 O2 Sat by Pulse Oximetry (%) 94 L 03/27/18 11:00 Constitutional: Yes: Calm Cardiovascular: Yes: Regular Rate and Rhythm, S1, S2 Respiratory: Yes: CTA Bilaterally Gastrointestinal: Yes: Normal Bowel Sounds, Soft Neurological: Yes: Alert, Oriented Labs: CBC, BMP 03/26/18 05:35 03/28/18 07:00 Discharge Summary Reason For Visit: DEHYDRATION/DIARRHEA Current Active Problems Dehydration (Acute) Diarrhea (Acute) Weakness (Acute) Hospital Course: PCP: Xavier Escamilla - Admission Chief Complaint: Diarrhea. FTT History of Present Illness: The patient is a 77 year old male, with a significant PMH of A-fib (on xarelto) , HTN, HLD, CAD s/p stent s/p pacemaker s/p CABG, PAD, s/p LE bypass, seizure, COPD c/b chronic hypoxic respiratory failure, h/o CVA with residual left sided weakness, OA, and CKD, who presents to the emergency department with 5 days of dark tarry stool. The patient states he endorses associated symptoms of fatigue and minimal PO intake. The patient reports he is on 3 liters of 02 secondary to his COPD and O2 saturation is usually around low 90s. The patient denies chest pain, shortness of breath, headache and dizziness. Denies fever, chills, nausea, vomit and constipation. Denies dysuria, frequency, urgency and hematuria. 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 Cardiovascular: Yes: AFIB, Aneurysm, CAD, CHF, HTN, Hyperlipdemia, Murmur, Other (peripheral artery disease) Pulmonary: Yes: COPD Renal/: Yes: BPH patient admitted seen by GI started on iv abx flagyl diarrhea getting better now change to po abx for 2 weeks stool studies no c diff to follow up with gi in 2 weeks Condition: Good - Instructions Diet, Activity, Other Instructions: flAGYL 250 MG PO TID FOR 2 WEEKS Referrals: Alyssa Solomon [Primary Care Provider] - Cj Morgan MD [Staff Physician] - 2 Weeks Disposition: VNS/HOME HEALTH CARE - Home Medications Comprehensive Discharge Medication List: Ambulatory Orders Duloxetine HCl [Cymbalta -] 60 mg PO DAILY 11/08/17 Isosorbide Dinitrate [Isordil -] 20 mg PO BID 11/08/17 Pantoprazole Sodium [Protonix] 40 mg PO DAILY 11/08/17 Pregabalin [Lyrica] 100 mg PO TID 11/08/17 Tamsulosin HCl [Flomax] 0.4 mg PO HS 11/08/17 Albuterol 0.083% Nebulizer Suki [Ventolin 0.083% Nebulizer Soln -] 1 amp NEB Q6H PRN amp 12/10/17 Apixaban [Eliquis -] 2.5 mg PO BID #60 tablet 12/11/17 Budesonide/Formeterol Fumarate [SYMBICORT 160/4.5mcg -] 2 puff IH BID #1 inhaler 12/11/17 Metoprolol Tartrate [Lopressor -] 37.5 mg PO BID #90 tablet 12/11/17 levETIRAcetam [Keppra -] 750 mg PO BID #45 tablet 12/26/17 Atorvastatin Ca [Lipitor] 10 mg PO HS 03/25/18 Ferrous Sulfate 325 mg PO DAILY 03/25/18 Furosemide [Lasix] 20 mg PO DAILY 03/25/18
[2018-03-28 15:24] VITALS: BP 131/63; PULSE 63; TEMP 97.6
== END 2018-03-28 16:20 | disposition home health service (06) ==
LOC: JER 09:33 → INTOOBSV 11:53 → JERBED 11:53 → J5S 13:38
PROVIDERS: ADMIT Family Medicine; ATTEND Family Medicine
PROC: 3E03329 Introduction of Other Anti-infective into Peripheral Vein, Percutaneous Approach (ICD-10-PCS; principal; 2018-03-25)
PROC: 3E033GC Introduction of Other Therapeutic Substance into Peripheral Vein, Percutaneous Approach (ICD-10-PCS; 2018-03-25)
PROC: 3E0337Z Introduction of Electrolytic and Water Balance Substance into Peripheral Vein, Percutaneous Approach (ICD-10-PCS; 2018-03-25)
PROC: 3E0F7GC Introduction of Other Therapeutic Substance into Respiratory Tract, Via Natural or Artificial Opening (ICD-10-PCS; 2018-03-25)
DX: E86.0 Dehydration (principal); R19.7 Diarrhea, unspecified; R53.1 Weakness; I12.9 Hypertensive chronic kidney disease with stage 1 through stage 4 chronic kidney disease, or unspecified chronic kidney disease; N18.9 Chronic kidney disease, unspecified; Z87.891 Personal history of nicotine dependence; E78.5 Hyperlipidemia, unspecified; I48.91 Unspecified atrial fibrillation; I25.10 Atherosclerotic heart disease of native coronary artery without angina pectoris; I73.9 Peripheral vascular disease, unspecified; G40.909 Epilepsy, unspecified, not intractable, without status epilepticus; J44.9 Chronic obstructive pulmonary disease, unspecified; I69.354 Hemiplegia and hemiparesis following cerebral infarction affecting left non-dominant side; M19.90 Unspecified osteoarthritis, unspecified site; F03.90 Unspecified dementia, unspecified severity, without behavioral disturbance, psychotic disturbance, mood disturbance, and anxiety; N40.0 Benign prostatic hyperplasia without lower urinary tract symptoms; Z86.79 Personal history of other diseases of the circulatory system; Z79.01 Long term (current) use of anticoagulants; Z99.81 Dependence on supplemental oxygen; Z95.0 Presence of cardiac pacemaker; Z95.1 Presence of aortocoronary bypass graft; Z95.5 Presence of coronary angioplasty implant and graft
CPT/HCPCS: 36415; 71045-TC-FY; 80053; 81003; 81015; 82272; 82803; 83605; 83735; 85025; 85610; 85730; 87045; 87046; 87177; 87186; 87209; 87324; 87449; 87493; 93005; 93010; 94640; 96361; 96374; 96375; 97116-GP; 97161-GP; 99282-25; G0378; J7030

== ENCOUNTER 2018-05-16 18:26 | Inpatient (IN) | payer OTHER ==
--- NOTE | 2018-05-16 18:31 | PDOC ---
Rapid Medical Evaluation Time Seen by Provider: 05/16/18 18:30 Medical Evaluation: Allergies Allergy/AdvReac Type Severity Reaction Status Date / Time No Known Allergies Allergy Verified 03/25/18 09:49 05/16/18 18:31 I have performed a brief in-person evaluation of this patient. The patient presents with a chief complaint of: Sent in for pericardial effusion seen on routine CT scan several days ago. No acute sxs per pt. Pt has h /o COPD s/p chronic hypoxic resp failure, on 3L oxygen at home, HTN, HLD, CAD s/ p stent, CABG, AAA repair, PPM, afib on xarelto, PAD, seizure. Pulm: Dr Fleming Cards: [email or web address] PMd: Dr Malik Pertinent physical exam findings:Unremarkable I have ordered the following:ekg/cxr/labs The patient will proceed to the ED for further evaluation. Dr Fleming in triage and states he arranged CT few days ago. Saw CT report today, no tamponade. Wants pt admitted to either to Dr Escamilla or [facility]'s service. 05/16/18 18:37 Discharge Disposition - Diagnosis Pericardial effusion - Referrals - Patient Instructions - Post Discharge Activity
--- NOTE | 2018-05-16 19:36 | PDOC ---
History of Present Illness - History of Present Illness Initial Comments: 77 year old male with PMH of COPD s/p chronic hypoxic resp failure, on 3L oxygen at home, HTN, HLD, CAD s/p stent, CABG, AAA repair, PPM, afib on Xarelto , PAD, CVA (left arm sensitivity and aphasia) and seizure presenting with SOB over the past week and new pericardial effusion since his previous aneurysm follow up CT in 12/2017. HE received his CTA 4 days ago which showed a 17 mm focal effusion and received and echo today which was technically difficult but did not show tamponade. He denies any chest pain, palpitations, nausea, fevers, or other symptoms. 05/16/18 19:28 <Jefry Peraza - Last Filed: 05/16/18 22:08> <Dyan Chowdhury - Last Filed: 05/16/18 22:17> - General Chief Complaint: Revisit,Radiology Variance Stated Complaint: HEART PROBLEM Time Seen by Provider: 05/16/18 18:30 Past History - Past Medical History Anemia: No Asthma: No Cancer: No Cardiac Disorders: Yes (STENTS 2001/STENT IN 2015) CVA: Yes (01/23/12/DURING TRIPLE AA REPAIR) COPD: Yes CHF: No Dementia: No (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) Diabetes: No GI Disorders: No Disorders: Yes (BPH) HTN: Yes Hypercholesterolemia: Yes Liver Disease: No Seizures: Yes Thyroid Disease: No - Surgical History Abdominal Surgery: Yes (S/P AAA) Appendectomy: No Cardiac Surgery: Yes (BYPASS 2013, PPM/ AAA REPAIR/2011) Cholecystectomy: No Lung Surgery: No Neurologic Surgery: No Orthopedic Surgery: No - Immunization History Immunization Up to Date: Yes - Suicide/Smoking/Psychosocial Hx Smoking History: Unknown if ever smoked Have you smoked in the past 12 months: No If you are a former smoker, when did you quit?: 2008 Cigars Per Day: 0 Hx Alcohol Use: No Drug/Substance Use Hx: No Substance Use Type: None Hx Substance Use Treatment: No <Jefry Peraza - Last Filed: 05/16/18 22:08> <Dyan Chowdhury - Last Filed: 05/16/18 22:17> - Past Medical History Allergies/Adverse Reactions: Allergies Allergy/AdvReac Type Severity Reaction Status Date / Time No Known Allergies Allergy Verified 03/25/18 09:49 Home Medications: Ambulatory Orders Duloxetine HCl [Cymbalta -] 60 mg PO DAILY 11/08/17 Isosorbide Dinitrate [Isordil -] 20 mg PO BID 11/08/17 Pantoprazole Sodium [Protonix] 40 mg PO DAILY 11/08/17 Pregabalin [Lyrica] 100 mg PO TID 11/08/17 Tamsulosin HCl [Flomax] 0.4 mg PO HS 11/08/17 Albuterol 0.083% Nebulizer Suki [Ventolin 0.083% Nebulizer Soln -] 1 amp NEB Q6H PRN amp 12/10/17 Apixaban [Eliquis -] 2.5 mg PO BID #60 tablet 12/11/17 Budesonide/Formeterol Fumarate [SYMBICORT 160/4.5mcg -] 2 puff IH BID #1 inhaler 12/11/17 Metoprolol Tartrate [Lopressor -] 37.5 mg PO BID #90 tablet 12/11/17 levETIRAcetam [Keppra -] 750 mg PO BID #45 tablet 12/26/17 Atorvastatin Ca [Lipitor] 10 mg PO HS 03/25/18 Ferrous Sulfate 325 mg PO DAILY 03/25/18 Furosemide [Lasix] 20 mg PO DAILY 03/25/18 Magnesium Oxide 400 mg PO DAILY #4 tablet MDD 1 03/28/18 Potassium Chloride 20 meq PO DAILY #3 packet 03/28/18 metroNIDAZOLE [Flagyl -] 250 mg PO TID #60 tablet MDD 3 03/28/18 Review of Systems - Review of Systems Constitutional: No: Chills, Diaphoresis Respiratory: Yes: Shortness of Breath, SOB with Exertion. No: Cough, SOB at Rest Cardiac (ROS): No: Chest Pain, Irregular Heart Rate, Lightheadedness ABD/GI: No: Diarrhea, Nausea, Vomiting : No: Dysuria, Discharge Musculoskeletal: No: Back Pain, Joint Pain Integumentary: No: Lesions, Lumps Neurological: Yes: Paresthesia. No: Headache, Numbness Psychiatric: No: Stressors Hematologic/Lymphatic: Yes: Easy Bleeding. No: Anemia, Blood Clots <Jefry Peraza - Last Filed: 05/16/18 22:08> *Physical Exam - Vital Signs Last Vital Signs Temp Pulse Resp BP Pulse Ox 97.6 F 88 20 119/78 91 L 05/16/18 18:31 05/16/18 18:31 05/16/18 18:31 05/16/18 18:31 05/16/18 18:31 - Physical Exam General Appearance: Yes: Nourished. No: Apparent Distress HEENT: positive: EOMI, Normal ENT Inspection, Normal Voice. negative: ANT ( right pupil fixed) Neck: positive: Normal Thyroid, Supple. negative: Tender, Rigid Respiratory/Chest: negative: Lungs Clear, Normal Breath Sounds (bilateral lung field crackles), Respiratory Distress, Accessory Muscle Use Cardiovascular: positive: Irregularly Irregular Gastrointestinal/Abdominal: positive: Normal Bowel Sounds, Flat, Soft. negative : Tender Lymphatic: negative: Adenopathy, Tenderness Musculoskeletal: negative: Normal Inspection Extremity: positive: Normal Capillary Refill, Normal Inspection, Normal Range of Motion. negative: Tender Integumentary: positive: Normal Color, Dry, Warm Neurologic: positive: Alert, Normal Mood/Affect, Normal Response, Motor Strength 5/5 <Jefry Peraza - Last Filed: 05/16/18 22:08> - Vital Signs Last Vital Signs Temp Pulse Resp BP Pulse Ox 97.6 F 88 20 119/78 94 L 05/16/18 18:31 05/16/18 18:31 05/16/18 18:31 05/16/18 18:31 05/16/18 21:18 <Dyan Chowdhury - Last Filed: 05/16/18 22:17> Moderate Sedation - Procedure Monitoring Vital Signs: Procedure Monitoring Vital Signs Temperature 97.6 F 05/16/18 18:31 Pulse Rate 88 05/16/18 18:31 Respiratory Rate 20 05/16/18 18:31 Blood Pressure 119/78 05/16/18 18:31 O2 Sat by Pulse Oximetry (%) 91 L 05/16/18 18:31 <Jefry Peraza - Last Filed: 05/16/18 22:08> - Procedure Monitoring Vital Signs: Procedure Monitoring Vital Signs Temperature 97.6 F 05/16/18 18:31 Pulse Rate 88 05/16/18 18:31 Respiratory Rate 20 05/16/18 18:31 Blood Pressure 119/78 05/16/18 18:31 O2 Sat by Pulse Oximetry (%) 94 L 05/16/18 21:18 <Dyan Chowdhury - Last Filed: 05/16/18 22:17> ED Treatment Course - LABORATORY CBC & Chemistry Diagram: 05/16/18 19:48 05/16/18 19:48 <Jefry Peraza - Last Filed: 05/16/18 22:08> - LABORATORY CBC & Chemistry Diagram: 05/16/18 19:48 05/16/18 19:48 - ADDITIONAL ORDERS Additional order review: Laboratory Results 05/16/18 05/16/18 05/16/18 19:48 19:48 19:48 PT with INR 18.40 H INR 1.55 H Sodium Potassium Chloride Carbon Dioxide Anion Gap BUN Creatinine Creat Clearance w eGFR Random Glucose Calcium Total Bilirubin AST ALT Alkaline Phosphatase Creatine Kinase Troponin I B-Natriuretic Peptide Total Protein Albumin TSH Cancelled Blood Type A POSITIVE Antibody Screen Negative 05/16/18 05/16/18 19:48 19:48 PT with INR INR Sodium 139 Potassium 4.3 Chloride 103 Carbon Dioxide 30 Anion Gap 6 L BUN 20 H Creatinine 1.3 Creat Clearance w eGFR 53.25 Random Glucose 85 Calcium 8.2 L Total Bilirubin 0.6 AST 11 L ALT 12 L Alkaline Phosphatase 49 Creatine Kinase 77 Troponin I 0.02 B-Natriuretic Peptide 1987.2 H Total Protein 6.6 Albumin 3.5 TSH 1.49 D Blood Type Antibody Screen 05/16/18 19:48 RBC 4.78 MCV 86.6 MCHC 33.7 RDW 16.4 H MPV 8.9 Neutrophils % 80.6 D Lymphocytes % 10.1 D Monocytes % 7.5 Eosinophils % 1.4 Basophils % 0.4 <Dyan Chowdhury - Last Filed: 05/16/18 22:17> Medical Decision Making - Medical Decision Making 77 year old male with new pericardial effusion and one week of SOB presenting for direct admission by Dr. Hines and Dr. Fleming. Patient appeared comfortable here. His heart sounds were muffled. EKg demonstrated paced rhythm without obvious signs of ischemia. Labs demonstrate no acute abnormalities with exception of elevated BNP. [facility] 05/16/18 20:52 <Jefry Peraza - Last Filed: 05/16/18 22:08> *DC/Admit/Observation/Transfer - Discharge Dispostion Decision to Admit order: Yes <Jefry Peraza - Last Filed: 05/16/18 22:08> - Discharge Dispostion Decision to Admit order: Yes Decision to Admit order Date/Time: 05/16/18 22:17 <Dyan Chowdhury - Last Filed: 05/16/18 22:17> Diagnosis at time of Disposition: Pericardial effusion - Discharge Dispostion Condition at time of disposition: Stable
[2018-05-16 20:05] LABS: BASO % 0.4 % (0-2.0); EOS % 1.4 % (0-4.5); HEMATOCRIT 41.4 % (35.4-49); LYMPH % 10.1 % (8-40); MCH 29.2 pg (25.7-33.7); MCHC 33.7 g/dl (32.0-35.9); MEAN CELL VOLUME 86.6 fl (80-96); MEAN PLT VOLUME 8.9 fl (7.5-11.1); MONO % 7.5 % (3.8-10.2); NEUT % 80.6 % (42.8-82.8); PLATELET COUNT 148 K/MM3 (134-434); RBC 4.78 M/mm3 (4.00-5.60); RDW 16.4 % (11.9-15.9); WHITE BLOOD COUNT 9.7 K/mm3 (4.0-10.0)
--- NOTE | 2018-05-16 20:11 | CON.CARD ---
Cardiology Consult (text) - Consultation Consultation Note: Cardiology I referred Mr. Villar to ER today for clinical observation on telemetry after an office echo and recent outpatient CT showed a moderate to large pericardial effusion which seems to be localized. The office echo was technically difficult with poor imaging windows due to COPD. 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 No clear echo indications of tamponade, technically difficult study CAD COPD Ischemic CM PAF on AC REC: 1. Continue usual home meds 2. Clinical monitoring on telemetry to assess for tamponade: would check for pulsus paradoxus 3. To repeat echo on Saturday 4. Pulmonary consult to optimize home regimen 5. Check TSH Case d/w Dr. Bernadette Case covering the weekend.
--- NOTE | 2018-05-16 20:11 | PDOC ---
Attending Attestation - Resident Resident Name: StuVeenailana - ED Attending Attestation I have performed the following: I have examined & evaluated the patient, The case was reviewed & discussed with the resident, I agree w/resident's findings & plan - HPI HPI: 05/16/18 20:10 Mr. Villar is a 77 year old male, with past medical history significant for A- fib (on xarelto), HTN, HLD, CAD s/p stent s/p pacemaker s/p CABG, PAD, s/p LE bypass, seizure, COPD c/b chronic hypoxic respiratory failure on 3L O2, h/o CVA with residual left sided weakness, OA, and CKD, presents to the emergency department with pericardial effusion seen on routine CT scan several days ago. Pulmonary: Dr. Fleming Cardiology: Dr. Hines PCP: Dr. Solomon - Physicial Exam PE: 05/16/18 20:10 NAD, baseline aphasic, PERRL, EOMI, MMM, nl conjunctiva, anicteric; neck supple. lungs clear, irregularly irregular, abdomen soft nontender. BARRAZA x4, no focal neuro deficits. No peripheral edema. normal color for ethnicity, WWP. no calf tenderness. - Medical Decision Making 05/16/18 20:11 hpi as documented VS reviewed, baseline hypoxia from COPD. he was seen outpatient today for echo, and outpatient Ct chest recently showing mod to large pericardial effusion, local. no e/o tamponade, though poor cardiac windows noted. sent in for pulm and cards eval with Dr Case, full comp echo and check for tamponade. CT chest (05/12/18) also with thoracic aneurysm 5.1cm, stable. pericardial effusion 1.7cm at that time already seen EKG with LBBB pattern, V paced, irreg irregular c/w Afib resident and I performed bedside pocus echo: focal pericardial effusion seen, RV <LV, EF moderately depressed. labs performed, neg trop. elevated bnp, nonspecific, expected with his cardiac/ pulm history. remainder of labs and lytes wnl. tele admit, medical management, cards cs s/o to hospitalist overnight. Dr Escamilla and team 05/16/18 20:14 05/16/18 20:17 05/16/18 22:16 05/16/18 22:16
[2018-05-16 20:31] LABS: INR 1.55 (0.83-1.09); PROTHROMBIN TIME (PATIENT) 18.4 SEC (9.7-13.0)
[2018-05-16 20:49] LABS: ALBUMIN 3.5 g/dl (3.4-5.0); ALK PHOS 49 U/L (45-117); ANION GAP 6 MMOL/L (8-16); BILIRUBIN,TOTAL 0.6 mg/dL (0.2-1); BLOOD UREA NITROGEN 20 mg/dL (7-18); CALCIUM 8.2 mg/dL (8.5-10.1); CHLORIDE 103 mmol/L (98-107); CO2 30 mmol/L (21-32); CREATININE 1.3 mg/dL (0.55-1.3); GLUCOSE,RANDOM 85 mg/dL (74-106); POTASSIUM 4.3 mmol/L (3.5-5.1); SGOT/AST 11 U/L (15-37); SGPT/ALT 12 U/L (13-61); SODIUM 139 mmol/L (136-145); TOT PROT 6.6 g/dl (6.4-8.2)
--- NOTE | 2018-05-16 22:07 | HP ---
CHIEF COMPLAINT: SOB Pulmonary: Dr. Fleming Cardiology: Dr. Hines PCP: Dr. Solomon HISTORY OF PRESENT ILLNESS: 77 man who was sent to hospital for admission from cardiac office after echo and recent outpatient CT showed a moderate to large pericardial effusion which seems to be localized. He received his CTA 4 days ago for aortic anneurysm monitoring (no change in size from last CT) which showed a 17 mm focal effusion and received and echo today which was technically difficult but did not show tamponade. 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) PAF on intermediate NOAC therapy Severe COPD on O2 Seizure disorder PAST SURGICAL HISTORY: PPM placement Social History: Smoking:former smoker 40 pack years Alcohol: no Drugs: no Family History: Allergies No Known Allergies Allergy (Verified 03/25/18 09:49) HOME MEDICATIONS: Home Medications Medication Instructions Recorded Duloxetine HCl [Cymbalta -] 60 mg PO DAILY 11/08/17 Isosorbide Dinitrate [Isordil -] 20 mg PO BID 11/08/17 Pantoprazole Sodium [Protonix] 40 mg PO DAILY 11/08/17 Pregabalin [Lyrica] 100 mg PO TID 11/08/17 Tamsulosin HCl [Flomax] 0.4 mg PO HS 11/08/17 Albuterol 0.083% Nebulizer Suki 1 amp NEB Q6H PRN amp 12/10/17 [Ventolin 0.083% Nebulizer Soln -] Apixaban [Eliquis -] 2.5 mg PO BID #60 tablet 12/11/17 Budesonide/Formeterol Fumarate 2 puff IH BID #1 inhaler 12/11/17 [SYMBICORT 160/4.5mcg -] Metoprolol Tartrate [Lopressor -] 37.5 mg PO BID #90 tablet 12/11/17 levETIRAcetam [Keppra -] 750 mg PO BID #45 tablet 12/26/17 Atorvastatin Ca [Lipitor] 10 mg PO HS 03/25/18 Ferrous Sulfate 325 mg PO DAILY 03/25/18 Furosemide [Lasix] 20 mg PO DAILY 01/01/19 Magnesium Oxide 400 mg PO DAILY #4 tablet MDD 1 03/28/18 Potassium Chloride 20 meq PO DAILY #3 packet 03/28/18 metroNIDAZOLE [Flagyl -] 250 mg PO TID #60 tablet MDD 3 03/28/18 REVIEW OF SYSTEMS CONSTITUTIONAL: Absent: fever, chills, diaphoresis, generalized weakness, malaise, loss of appetite, weight change HEENT: Absent: rhinorrhea, nasal congestion, throat pain, throat swelling, difficulty swallowing, mouth swelling, ear pain, eye pain, visual changes CARDIOVASCULAR: Absent: chest pain, syncope, palpitations, irregular heart rate, lightheadedness , peripheral edema RESPIRATORY: Absent: cough,, dyspnea with exertion, orthopnea, wheezing, stridor, hemoptysis present- shortness of breath GASTROINTESTINAL: Absent: abdominal pain, abdominal distension, nausea, vomiting, diarrhea, constipation, melena, hematochezia GENITOURINARY: Absent: dysuria, frequency, urgency, hesitancy, hematuria, flank pain, genital pain MUSCULOSKELETAL: Absent: myalgia, arthralgia, joint swelling, back pain, neck pain SKIN: Absent: rash, itching, pallor HEMATOLOGIC/IMMUNOLOGIC: Absent: easy bleeding, easy bruising, lymphadenopathy, frequent infections ENDOCRINE: Absent: unexplained weight gain, unexplained weight loss, heat intolerance, cold intolerance NEUROLOGIC: Absent: headache, focal weakness or paresthesias, dizziness, unsteady gait, seizure, mental status changes, bladder or bowel incontinence PSYCHIATRIC: Absent: anxiety, depression, suicidal or homicidal ideation, hallucinations. PHYSICAL EXAMINATION Vital Signs - 24 hr 05/16/18 05/16/18 18:31 21:18 Temperature 97.6 F Pulse Rate 88 Respiratory 20 Rate Blood Pressure 119/78 O2 Sat by Pulse 91 L 94 L Oximetry (%) GENERAL: Awake, alert, and fully oriented, in no acute distress. HEAD: Normal with no signs of trauma. EYES: Pupils equal, round and reactive to light, extraocular movements intact, sclera anicteric, conjunctiva clear. No lid lag. EARS, NOSE, THROAT: Ears normal, nares patent, oropharynx clear without exudates. dry mucous membranes. NECK: Normal range of motion, supple without lymphadenopathy, JVD, or masses. LUNGS: Breath sounds equal, clear to auscultation bilaterally. mild bibasilar crackles HEART: distant heart sounds ABDOMEN: Soft, nontender, not distended, normoactive bowel sounds, no guarding, no rebound, no masses. No hepatomegaly or splenomegaly. MUSCULOSKELETAL: Normal range of motion at all joints. No bony deformities or tenderness. No CVA tenderness. UPPER EXTREMITIES: 2+ pulses, warm, well-perfused. No cyanosis. No clubbing. No peripheral edema. LOWER EXTREMITIES: 2+ pulses, warm, well-perfused. No calf tenderness. No peripheral edema. NEUROLOGICAL: Cranial nerves II-XII intact. Normal speech. Normal gait. PSYCHIATRIC: Cooperative. Good eye contact. Appropriate mood and affect. SKIN: Warm, dry, normal turgor, no rashes or lesions noted, normal capillary refill. Laboratory Results - last 24 hr 05/16/18 05/16/18 05/16/18 19:48 19:48 19:48 WBC 9.7 RBC 4.78 Hgb 14.0 Hct 41.4 MCV 86.6 MCH 29.2 MCHC 33.7 RDW 16.4 H Plt Count 148 MPV 8.9 Absolute Neuts (auto) 7.8 Neutrophils % 80.6 D Lymphocytes % 10.1 D Monocytes % 7.5 Eosinophils % 1.4 Basophils % 0.4 Nucleated RBC % 0 PT with INR INR Sodium 139 Potassium 4.3 Chloride 103 Carbon Dioxide 30 Anion Gap 6 L BUN 20 H Creatinine 1.3 Creat Clearance w eGFR 53.25 Random Glucose 85 Calcium 8.2 L Total Bilirubin 0.6 AST 11 L ALT 12 L Alkaline Phosphatase 49 Creatine Kinase 77 Troponin I 0.02 B-Natriuretic Peptide 1987.2 H Total Protein 6.6 Albumin 3.5 TSH 1.49 D Blood Type Antibody Screen 05/16/18 05/16/18 05/16/18 19:48 19:48 19:48 WBC RBC Hgb Hct MCV MCH MCHC RDW Plt Count MPV Absolute Neuts (auto) Neutrophils % Lymphocytes % Monocytes % Eosinophils % Basophils % Nucleated RBC % PT with INR 18.40 H INR 1.55 H Sodium Potassium Chloride Carbon Dioxide Anion Gap BUN Creatinine Creat Clearance w eGFR Random Glucose Calcium Total Bilirubin AST ALT Alkaline Phosphatase Creatine Kinase Troponin I B-Natriuretic Peptide Total Protein Albumin TSH Cancelled Blood Type A POSITIVE Antibody Screen Negative ekk, cxr reviewed ASSESSMENT/PLAN: #New moderate to large pericardial effusion 17mm focal fluid collection, localized- VS stable, patient not in distress, asymptomatic. Do not suspect tamponade at this time. #CAD #PAD #COPD on home oxygen- controlled #Ischemic CM #PAF on AC #Seizure d/o -admit to observation/telemetry -monitor VS closely -continue supplemental oxygen -will repeat echo -c/o symbicort MDI bid -albuterol neb prn -cardiology and pulmonary evaluation -c/w eliquis for history of afib and dvt ppx -c/w home dose metoprolol 37.5mg po bid -c/w home dose lipitor -c/w home dose lasix -c/w Keppra for seizure ppx -c/w rest of home meds -low sodium diet Visit type - Emergency Visit Emergency Visit: Yes ED Registration Date: 05/16/18 Care time: The patient presented to the Emergency Department on the above date and was hospitalized for further evaluation of their emergent condition. - New Patient This patient is new to me today: Yes Date on this admission: 05/16/18 - Critical Care Critical Care patient: No
[2018-05-17 01:31] LABS: URINE APPEARANCE CLEAR; URINE BILIRUBIN NEGATIVE (<2.0 mg/dL); URINE COLOR YELLOW; URINE GLUCOSE (UA) NEGATIVE (NEGATIVE); URINE KETONE NEGATIVE (NEGATIVE); URINE LEUK ESTERASE NEGATIVE (NEGATIVE); URINE NITRITE NEGATIVE (NEGATIVE); URINE PROTEIN 2+ (NEGATIVE)
[2018-05-17 01:37] LABS: EPI CELLS RARE /HPF (FEW); URINE HYALINE CAST 1 /lpf; URINE MUCUS RARE
[2018-05-17] MEDS: ALBUTEROL SO4 0.083% IH SOL 2.5 MG/3 ML VIAL.NEB. NEB PRN ×2 (03:16→09:26)
[2018-05-17] MEDS: guaiFENesin 200 MG/10 ML 10 ML UNIT-DOSE CUPS PO PRN (05:36)
[2018-05-17] MEDS: PREGABALIN 100 MG CAPSULE PO SCH ×3 (05:36→22:25)
[2018-05-17 05:40] LABS: ARTERIAL BLD GAS O2 SATURATION 89.8 % (90-98.9); ARTERIAL BLOOD GAS BASE EXCESS 3.2 meq/l (-2-2); ARTERIAL BLOOD GAS PCO2 42.7 mmHg (35-45); ARTERIAL BLOOD GAS pH 7.43 (7.35-7.45)
[2018-05-17 08:04] LABS: HEMATOCRIT 44.4 % (35.4-49); HEMOGLOBIN 14.8 GM/dL (11.7-16.9); MCH 28.8 pg (25.7-33.7); MCHC 33.3 g/dl (32.0-35.9); MEAN CELL VOLUME 86.4 fl (80-96); MEAN PLT VOLUME 9.5 fl (7.5-11.1); PLATELET COUNT 151 K/MM3 (134-434); RBC 5.15 M/mm3 (4.00-5.60); RDW 16.8 % (11.9-15.9); WHITE BLOOD COUNT 9.7 K/mm3 (4.0-10.0)
--- NOTE | 2018-05-17 08:40 | PN ---
Progress Note, Physician Chief Complaint: Severe Pericardial effusion History of Present Illness: C/o SOB Seen by Cardiology Tele monitoring Repeat echo pending - Current Medication List Current Medications: Active Medications Albuterol Sulfate (Ventolin 0.083% Nebulizer Soln -) 1 amp NEB Q6H PRN PRN Reason: SHORT OF BREATH/WHEEZING Last Admin: 05/17/18 03:16 Dose: 1 amp Apixaban (Eliquis -) 2.5 mg PO BID [facility] Atorvastatin Calcium (Lipitor -) 10 mg PO HS [facility] Budesonide/Formoterol Fumarate (Symbicort 160/4.5mcg -) 2 puff IH BID [facility] Duloxetine HCl (Cymbalta -) 60 mg PO DAILY [facility] Furosemide (Lasix -) 20 mg PO DAILY [facility] Guaifenesin (Robitussin -) 10 ml PO Q4H PRN PRN Reason: COUGH Last Admin: 05/17/18 05:36 Dose: 10 ml Isosorbide Dinitrate (Isordil -) 20 mg PO BIDISORDIL [facility] Levetiracetam 500 mg/ (Levetiracetam 250 mg) 750 mg PO BID [facility] Magnesium Oxide (Mag-Ox -) 400 mg PO DAILY [facility] Metoprolol Tartrate (Lopressor -) 37.5 mg PO BID [facility] Pantoprazole Sodium (Protonix -) 40 mg PO DAILY [facility] Potassium Chloride (K-Dur -) 20 meq PO DAILY [facility] Pregabalin (Lyrica -) 100 mg PO TID [facility] Last Admin: 05/17/18 05:36 Dose: 100 mg Tamsulosin HCl (Flomax -) 0.4 mg PO HS [facility] - Objective Vital Signs: Vital Signs Temperature 98.9 F 05/17/18 05:00 Pulse Rate 96 H 05/17/18 05:00 Respiratory Rate 22 H 05/17/18 05:28 Blood Pressure 147/98 05/17/18 05:00 O2 Sat by Pulse Oximetry (%) 86 L 05/17/18 02:37 Constitutional: Yes: Calm, Mild Distress, Thin Cardiovascular: Yes: WNL, Murmur Respiratory: Yes: On Venti-Mask, SOB, SOB on Exertion Gastrointestinal: Yes: WNL Genitourinary: Yes: WNL Musculoskeletal: Yes: Muscle Weakness Edema: No Peripheral Pulses WNL: Yes Neurological: Yes: Alert, Pre-Existing Deficit Psychiatric: Yes: Alert Labs: CBC, BMP 05/17/18 06:30 INR, PTT INR 1.55 (0.83-1.09) H 05/16/18 19:48 Problem List - Problems (1) Pericardial effusion Assessment/Plan: -Seen by cardiology -repeat Echo on saturday -Pericardial window if needed Code(s): I31.3 - PERICARDIAL EFFUSION (NONINFLAMMATORY) (2) Atrial fib/flutter, transient Assessment/Plan: chronic -rate controlled -On eliquis -Cardiology on board Code(s): [id number] - (3) COPD (chronic obstructive pulmonary disease) Assessment/Plan: -Pulmonary consult -Venti mask, keep Spo2 >90% -Bronchodilators -IV medrol Code(s): J44.9 - CHRONIC OBSTRUCTIVE PULMONARY DISEASE, UNSPECIFIED (4) Hyperlipidemia Assessment/Plan: -LDL at 120 mg/dl -Increase atorvastatin to 20 mg po HS Code(s): E78.5 - HYPERLIPIDEMIA, UNSPECIFIED Qualifiers: Assessment/Plan see problem list
[2018-05-17 08:46] LABS: ALBUMIN 3.8 g/dl (3.4-5.0); ALK PHOS 54 U/L (45-117); ANION GAP 6 MMOL/L (8-16); BILIRUBIN,TOTAL 1.2 mg/dL (0.2-1); BLOOD UREA NITROGEN 22 mg/dL (7-18); CALCIUM 9.2 mg/dL (8.5-10.1); CHLORIDE 102 mmol/L (98-107); CO2 30 mmol/L (21-32); CREATININE 1.2 mg/dL (0.55-1.3); GLUCOSE,RANDOM 74 mg/dL (74-106); POTASSIUM 4.4 mmol/L (3.5-5.1); SGOT/AST 14 U/L (15-37); SGPT/ALT 12 U/L (13-61); SODIUM 139 mmol/L (136-145); TOT PROT 7.3 g/dl (6.4-8.2)
[2018-05-17] MEDS ORDERED: levETIRAcetam 500 MG TABLET (FP) PO ONE ×2 (08:58→21:20)
[2018-05-17] MEDS ORDERED: levETIRAcetam 250 MG TABLET (FP) PO ONE ×2 (08:59→21:20)
[2018-05-17] MEDS: FUROSEMIDE 20 MG TABLET (FP) PO SCH (09:20)
[2018-05-17] MEDS: ISOSORBIDE DINITRATE 20 MG TABLET (FP) PO SCH ×2 (09:20→17:04)
[2018-05-17] MEDS: DULoxetine HCL 30 MG CAPSULE.DR (FP) PO SCH (09:20)
[2018-05-17] MEDS: METOPROLOL TARTRATE 25 MG TABLET (FP) PO SCH ×2 (09:20→22:24)
[2018-05-17] MEDS: PANTOPRAZOLE 40 MG TABLET (FP) PO SCH (09:20)
[2018-05-17] MEDS: APIXABAN 2.5 MG TABLET PO SCH ×2 (09:20→22:23)
[2018-05-17] MEDS: POTASSIUM CHLORIDE TABS 20 MEQ TABLET.ER (FP) PO SCH (09:20)
[2018-05-17] MEDS: MAGNESIUM OXIDE 400 MG TABLET (FP) PO SCH (09:21)
[2018-05-17] MEDS ORDERED: PT OWN MED DRAWER 7, Y5N ONE (09:23)
[2018-05-17] MEDS: BUDESONIDE/FORMETEROL FUMARATE 160/4.5 mcg INHALER IH SCH ×2 (09:23→22:25)
[2018-05-17] MEDS ORDERED: levETIRAcetam 500 MG TABLET (FP) PO SCH (10:00)
[2018-05-17] MEDS ORDERED: HEPARIN NA (PORCINE) 5,000 UNITS/ML 1ML VIAL SQ SCH (10:00)
[2018-05-17] MEDS ORDERED: ALBUTEROL SO4 0.083% IH SOL 2.5 MG/3 ML VIAL.NEB. NEB PRN (12:24)
--- NOTE | 2018-05-17 12:24 | CON.PULM ---
Consult Consult Specialty:: PULMONARY Referred by:: SHARON Reason for Consultation:: SOB - History of Present Illness Chief Complaint: SOB History of Present Illness: 77 year old male with PMH of COPD s/p chronic hypoxic resp failure, on 3L oxygen at home, HTN, HLD, CAD s/p stent, CABG, AAA repair, PPM, afib on Xarelto , PAD, CVA (left arm sensitivity and aphasia) and seizure presenting with SOB over the past week and new pericardial effusion since his previous aneurysm follow up CT in 12/2017. HE received his CTA 4 days ago which showed a 17 mm focal effusion and received and echo today which was technically difficult but did not show tamponade. He denies any chest pain, palpitations, nausea, fevers, or other symptoms. 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 No: Renal Failure Heme/Onc: No: Anemia Psych: No: Addictions Musculoskeletal: Yes: Osteoarthritis - Past Surgical History Past Surgical History: Yes: AAA Repair, Permanent Pacemaker - Alcohol/Substance Use Hx Alcohol Use: No History of Substance Use: reports: None - Smoking History Smoking history: Former smoker Have you smoked in the past 12 months: No If you are a former smoker, when did you quit?: 2007 - Social History Usual Living Arrangement: With Spouse ADL: Family Assistance Place of : [facility] History of Recent Travel: No Home Medications - Allergies Allergies/Adverse Reactions: Allergies Allergy/AdvReac Type Severity Reaction Status Date / Time No Known Allergies Allergy Verified 03/25/18 09:49 - Home Medications Home Medications: Ambulatory Orders Duloxetine HCl [Cymbalta -] 60 mg PO DAILY 11/08/17 Isosorbide Dinitrate [Isordil -] 20 mg PO BID 11/08/17 Pantoprazole Sodium [Protonix] 40 mg PO DAILY 11/08/17 Pregabalin [Lyrica] 100 mg PO TID 11/08/17 Tamsulosin HCl [Flomax] 0.4 mg PO HS 11/08/17 Albuterol 0.083% Nebulizer Suki [Ventolin 0.083% Nebulizer Soln -] 1 amp NEB Q6H PRN amp 12/10/17 Apixaban [Eliquis -] 2.5 mg PO BID #60 tablet 12/11/17 Budesonide/Formeterol Fumarate [SYMBICORT 160/4.5mcg -] 2 puff IH BID #1 inhaler 12/11/17 Metoprolol Tartrate [Lopressor -] 37.5 mg PO BID #90 tablet 12/11/17 levETIRAcetam [Keppra -] 750 mg PO BID #45 tablet 12/26/17 Atorvastatin Ca [Lipitor] 10 mg PO HS 03/25/18 Ferrous Sulfate 325 mg PO DAILY 03/25/18 Furosemide [Lasix] 20 mg PO DAILY 03/25/18 Magnesium Oxide 400 mg PO DAILY #4 tablet MDD 1 03/28/18 Potassium Chloride 20 meq PO DAILY #3 packet 03/28/18 metroNIDAZOLE [Flagyl -] 250 mg PO TID #60 tablet MDD 3 03/28/18 Family Disease History - Family Disease History Family History: Unremarkable Review of Systems - Review of Systems Constitutional: reports: Lethargy. denies: Fever Eyes: denies: Blurred Vision HENT: denies: Difficult Swallowing Neck: denies: Decreased ROM Cardiovascular: reports: Shortness of Breath. denies: Chest Pain Respiratory: reports: Cough, Exercise Intolerance, SOB, SOB on Exertion, Wheezing. denies: Hemoptysis Gastrointestinal: denies: Abdominal Pain Genitourinary: denies: Burning Physical Exam Vital Sings: Vital Signs Temperature 98.1 F 05/17/18 10:00 Pulse Rate 108 H 05/17/18 10:00 Respiratory Rate 22 H 05/17/18 10:00 Blood Pressure 132/78 05/17/18 10:00 O2 Sat by Pulse Oximetry (%) 86 L 05/17/18 02:37 Constitutional: Yes: Anxious Eyes: Yes: EOM Intact HENT: Yes: Normocephalic Neck: Yes: Trachea Midline Cardiovascular: Yes: S1, S2 Respiratory: Yes: Diminished, Wheezes Gastrointestinal: Yes: Abdomen, Obese Edema: LLE: 1+, RLE: 1+ Neurological: Yes: Alert Labs: CBC, BMP 05/17/18 06:30 05/17/18 06:30 ABG Results ABG pH 7.43 (7.35-7.45) 05/17/18 05:10 ABG pCO2 at Pt Temp 42.7 mmHg (35-45) D 05/17/18 05:10 ABG pO2 at Pt Temp 61.0 mmHg (70-100) L 05/17/18 05:10 ABG HCO3 27.5 meq/L (22-26) H 05/17/18 05:10 ABG O2 Sat (Measured) 89.8 % (90-98.9) L 05/17/18 05:10 ABG O2 Content 17.5 % vol (15-22) 05/17/18 05:10 ABG Base Excess 3.2 meq/l (-2-2) H 05/17/18 05:10 REST REVIEWED Imaging - Results Chest X-ray: Report Reviewed, Image Reviewed Cat Scan: Report Reviewed, Image Reviewed Problem List - Problems (1) Pericardial effusion Code(s): I31.3 - PERICARDIAL EFFUSION (NONINFLAMMATORY) (2) Anxiety Code(s): F41.9 - ANXIETY DISORDER, UNSPECIFIED (3) Atrial fib/flutter, transient Code(s): FJB8621 - (4) CAD (coronary artery disease) Code(s): I25.10 - ATHSCL HEART DISEASE OF [place] CORONARY ARTERY W/O ANG PCTRS Qualifiers: Coronary Disease-Associated Artery/Lesion type: [place] artery Associated angina: with stable angina (5) CHF (congestive heart failure) Code(s): I50.9 - HEART FAILURE, UNSPECIFIED (6) COPD (chronic obstructive pulmonary disease) Code(s): J44.9 - CHRONIC OBSTRUCTIVE PULMONARY DISEASE, UNSPECIFIED Qualifiers: COPD type: COPD with acute exacerbation Qualified Code(s): J44.1 - Chronic obstructive pulmonary disease with (acute) exacerbation (7) Chronic respiratory failure with hypoxia Code(s): J96.11 - CHRONIC RESPIRATORY FAILURE WITH HYPOXIA (8) Thoracic aortic aneurysm Code(s): I71.2 - THORACIC AORTIC ANEURYSM, WITHOUT RUPTURE (9) Weakness Code(s): R53.1 - WEAKNESS (10) Abdominal aortic aneurysm Code(s): I71.4 - ABDOMINAL AORTIC ANEURYSM, WITHOUT RUPTURE Qualifiers: Presence of rupture: without rupture Qualified Code(s): I71.4 - Abdominal aortic aneurysm, without rupture (11) BPH (benign prostatic hypertrophy) Code(s): N40.0 - BENIGN PROSTATIC HYPERPLASIA WITHOUT LOWER URINRY TRACT SYMP (12) CAD (coronary artery disease) Code(s): I25.10 - ATHSCL HEART DISEASE OF [place] CORONARY ARTERY W/O ANG PCTRS Qualifiers: Coronary Disease-Associated Artery/Lesion type: [place] artery (13) History of permanent cardiac pacemaker placement Code(s): Z95.0 - PRESENCE OF CARDIAC PACEMAKER (14) Hx of CABG Code(s): Z95.1 - PRESENCE OF AORTOCORONARY BYPASS GRAFT Assessment/Plan LOCULATED PERICARDIAL EFFUSION FOUND ON CT/ECHO ADMITTED DUE TO INCREASING SOB COPD WITH CHRONIC HYPOXEMIC RESP FAILURE ON HOME O2 CXR DOES NOT SHOW ANY CHANGES FROM PREVIOUS UNSURE IF LOCULATED PERICARDIAL PROCESS IS CONTRIBUTING TO SYMPTOMATOLOGY WOULD TREAT FOR A/E COPD WITH DUONEBS/STEROIDS/O2 SUPPLEMENTATION/DALIRESP MONITOR O2 SATS REPEAT CXR AM CARDIO F/U WILL FOLLOW Kane GHOTRA MD
--- NOTE | 2018-05-17 12:35 | CON.CARD ---
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 No: Renal Failure Psych: No: Addictions Musculoskeletal: Yes: Osteoarthritis - Past Surgical History Past Surgical History: Yes: AAA Repair, Permanent Pacemaker - Alcohol/Substance Use Hx Alcohol Use: No History of Substance Use: reports: None - Smoking History Smoking history: Former smoker Have you smoked in the past 12 months: No If you are a former smoker, when did you quit?: 2007 - Social History Usual Living Arrangement: With Spouse ADL: Family Assistance History of Recent Travel: No Home Medications - Allergies Allergies/Adverse Reactions: Allergies Allergy/AdvReac Type Severity Reaction Status Date / Time No Known Allergies Allergy Verified 03/25/18 09:49 - Home Medications Home Medications: Ambulatory Orders Duloxetine HCl [Cymbalta -] 60 mg PO DAILY 11/08/17 Isosorbide Dinitrate [Isordil -] 20 mg PO BID 11/08/17 Pantoprazole Sodium [Protonix] 40 mg PO DAILY 11/08/17 Pregabalin [Lyrica] 100 mg PO TID 11/08/17 Tamsulosin HCl [Flomax] 0.4 mg PO HS 11/08/17 Albuterol 0.083% Nebulizer Suki [Ventolin 0.083% Nebulizer Soln -] 1 amp NEB Q6H PRN amp 12/10/17 Apixaban [Eliquis -] 2.5 mg PO BID #60 tablet 12/11/17 Budesonide/Formeterol Fumarate [SYMBICORT 160/4.5mcg -] 2 puff IH BID #1 inhaler 12/11/17 Metoprolol Tartrate [Lopressor -] 37.5 mg PO BID #90 tablet 12/11/17 levETIRAcetam [Keppra -] 750 mg PO BID #45 tablet 12/26/17 Atorvastatin Ca [Lipitor] 10 mg PO HS 03/25/18 Ferrous Sulfate 325 mg PO DAILY 03/25/18 Furosemide [Lasix] 20 mg PO DAILY 03/25/18 Magnesium Oxide 400 mg PO DAILY #4 tablet MDD 1 03/28/18 Potassium Chloride 20 meq PO DAILY #3 packet 03/28/18 metroNIDAZOLE [Flagyl -] 250 mg PO TID #60 tablet MDD 3 03/28/18 Vital Signs: Vital Signs Temperature 98.1 F 05/17/18 10:00 Pulse Rate 108 H 05/17/18 10:00 Respiratory Rate 22 H 05/17/18 10:00 Blood Pressure 132/78 05/17/18 10:00 O2 Sat by Pulse Oximetry (%) 86 L 05/17/18 02:37 - Other Data Labs, Other Data: CBC, BMP 05/17/18 06:30 05/17/18 06:30 INR, PTT INR 1.55 (0.83-1.09) H 05/16/18 19:48 Troponin, BNP 05/16/18 05/16/18 05/17/18 19:48 19:48 06:30 Troponin I 0.02 < 0.02 B-Natriuretic Peptide 1987.2 H 05/17/18 06:30 Troponin I Cancelled B-Natriuretic Peptide Troponin, BNP 05/16/18 05/16/18 05/17/18 19:48 19:48 06:30 Troponin I 0.02 < 0.02 B-Natriuretic Peptide 1987.2 H 05/17/18 06:30 Troponin I Cancelled B-Natriuretic Peptide
[2018-05-17] MEDS: methylPREDNISolone NA SUCC 40 MG/1 ML VIAL IVPUSH SCH ×3 (13:05→22:22)
--- NOTE | 2018-05-17 13:05 | PN ---
Progress Note, Physician Chief Complaint: Pt A&Ox3; in bed; no chest pain; anxious; c/o intermittent shortness of breath; not dizzy; no chest pain. History of Present Illness: 77 year old white male with PMH of COPD s/p chronic hypoxic resp failure, on 3L oxygen at home, HTN, HLD, CAD s/p stent, CABG, AAA repair, PPM (refused ICD), afib on Xarelto, PAD, CVA (left arm sensitivity and aphasia), s/p right shoulder surgery, seizures, now presenting with SOB over the past week and new pericardial effusion since his previous aneurysm follow up CT in 12/2017. He underwent a CTA 4 days ago which showed a 17 mm focal effusion and received and echo today which was technically difficult but did not show tamponade. He denies any chest pain, palpitations, nausea, fevers, or other symptoms. 05/16/18 19:28 - Current Medication List Current Medications: Active Medications Albuterol Sulfate (Ventolin 0.083% Nebulizer Soln -) 1 amp NEB Q1H PRN PRN Reason: SHORT OF BREATH/WHEEZING Albuterol/Ipratropium (Duoneb -) 1 amp NEB RQ4H [facility] Apixaban (Eliquis -) 2.5 mg PO BID [facility] Last Admin: 05/17/18 09:20 Dose: 2.5 mg Atorvastatin Calcium (Lipitor -) 10 mg PO [facility] Budesonide/Formoterol Fumarate (Symbicort 160/4.5mcg -) 2 puff IH BID [facility] Last Admin: 05/17/18 09:23 Dose: 2 pfu Duloxetine HCl (Cymbalta -) 60 mg PO DAILY [facility] Last Admin: 05/17/18 09:20 Dose: 60 mg Furosemide (Lasix -) 20 mg PO DAILY [facility] Last Admin: 05/17/18 09:20 Dose: 20 mg Guaifenesin (Robitussin -) 10 ml PO Q4H PRN PRN Reason: COUGH Last Admin: 05/17/18 05:36 Dose: 10 ml Isosorbide Dinitrate (Isordil -) 20 mg PO BIDISORDIL [facility] Last Admin: 05/17/18 09:20 Dose: 20 mg Levetiracetam 500 mg/ (Levetiracetam 250 mg) 750 mg PO BID [facility] Last Admin: 05/17/18 09:20 Dose: 750 mg Magnesium Oxide (Mag-Ox -) 400 mg PO DAILY [facility] Last Admin: 05/17/18 09:21 Dose: 400 mg Methylprednisolone Sodium Succinate (Solu-Medrol -) 40 mg IVPUSH Q6H-IV [facility] Metoprolol Tartrate (Lopressor -) 37.5 mg PO BID [facility] Last Admin: 05/17/18 09:20 Dose: 37.5 mg Pantoprazole Sodium (Protonix -) 40 mg PO DAILY [facility] Last Admin: 05/17/18 09:20 Dose: 40 mg Potassium Chloride (K-Dur -) 20 meq PO DAILY [facility] Last Admin: 05/17/18 09:20 Dose: 20 meq Pregabalin (Lyrica -) 100 mg PO TID [facility] Last Admin: 05/17/18 05:36 Dose: 100 mg Roflumilast (Daliresp -) 500 mcg PO DAILY [facility] Tamsulosin HCl (Flomax -) 0.4 mg PO [facility] - Objective Vital Signs: Vital Signs Temperature 98.1 F 05/17/18 10:00 Pulse Rate 108 H 05/17/18 10:00 Respiratory Rate 22 H 05/17/18 10:00 Blood Pressure 132/78 05/17/18 10:00 O2 Sat by Pulse Oximetry (%) 86 L 05/17/18 02:37 Constitutional: Yes: No Distress Eyes: Yes: WNL HENT: Yes: WNL Neck: Yes: WNL Cardiovascular: Yes: S1, S2 (split) Respiratory: Yes: Diminished, On Nasal O2 Gastrointestinal: Yes: Soft ...Rectal Exam: Yes: Deferred Genitourinary: No: Anuria Breast(s): Yes: WNL Musculoskeletal: Yes: Muscle Weakness Extremities: Yes: Cool Edema: No Peripheral Pulses WNL: Yes Integumentary: Yes: WNL Neurological: Yes: Alert, Oriented, Weakness (hx CVA) Psychiatric: Yes: Alert, Oriented, Other (anxious) Labs: CBC, BMP 05/17/18 06:30 05/17/18 06:30 INR, PTT INR 1.55 (0.83-1.09) H 05/16/18 19:48 - ....Imaging Chest X-ray: Image Reviewed (enlarged heart) Problem List - Problems (1) Aortic aneurysm Code(s): I71.9 - AORTIC ANEURYSM OF UNSPECIFIED SITE, WITHOUT RUPTURE (2) Pericardial effusion Assessment/Plan: Pericardial effusion noted on recent CT; likely moderate-large (ECHO was difficult due to underlying pulmonary pathology), without clear signs of tamponade. BP stable; HR WNL. Will f/u clinically; repeat studies to assess effusion. Code(s): I31.3 - PERICARDIAL EFFUSION (NONINFLAMMATORY) (3) Anxiety Code(s): F41.9 - ANXIETY DISORDER, UNSPECIFIED (4) COPD (chronic obstructive pulmonary disease) Code(s): J44.9 - CHRONIC OBSTRUCTIVE PULMONARY DISEASE, UNSPECIFIED Qualifiers: COPD type: COPD with acute exacerbation Qualified Code(s): J44.1 - Chronic obstructive pulmonary disease with (acute) exacerbation (5) Hypertension Code(s): I10 - ESSENTIAL (PRIMARY) HYPERTENSION Qualifiers: Hypertension type: essential hypertension Qualified Code(s): I10 - Essential (primary) hypertension (6) Hyperlipidemia Assessment/Plan: f/u lipid panel. Code(s): E78.5 - HYPERLIPIDEMIA, UNSPECIFIED Qualifiers:
[2018-05-17 14:40] LABS: CHOLESTEROL 155 mg/dL (50-200); HDL CHOLESTEROL 37 mg/dL (40-60); TRIGLYCERIDES 79 mg/dL (0-150)
[2018-05-17] MEDS: ROFLUMILAST 500 MCG TABLET PO SCH (14:41)
[2018-05-17] MEDS: ALBUTEROL SO4 2.5/IPRATROPIUM 0.5 INH SOL 3 ML VIAL.NEB. NEB SCH ×3 (15:10→23:54)
[2018-05-17] MEDS ORDERED: ATORVASTATIN CA 10 MG TABLET (FP) PO SCH (22:00)
--- NOTE | 2018-05-17 22:04 | EKG ---
Test Reason : Blood Pressure : / mmHG Vent. Rate : 080 BPM Atrial Rate : 075 BPM P-R Int : 000 ms QRS Dur : 118 ms QT Int : 408 ms P-R-T Axes : 000 257 081 degrees QTc Int : 470 ms Ventricular-paced rhythm Biventricular pacemaker detected ABNORMAL ECG WHEN COMPARED WITH ECG OF 25-MAR-2018 09:40, VENT. RATE HAS INCREASED BY 2 BPM Confirmed by SAADIA PERALTA MD ([id number]) on 05/17/2018 10:03:58 PM Referred By: Confirmed By:SAADIA PERALTA MD
[2018-05-17] MEDS: TAMSULOSIN HCL 0.4 MG CAP PO SCH (22:23)
[2018-05-18] MEDS: methylPREDNISolone NA SUCC 40 MG/1 ML VIAL IVPUSH SCH ×4 (02:55→22:37)
[2018-05-18] MEDS: ALBUTEROL SO4 2.5/IPRATROPIUM 0.5 INH SOL 3 ML VIAL.NEB. NEB SCH ×5 (03:24→20:50)
[2018-05-18] MEDS: PREGABALIN 100 MG CAPSULE PO SCH ×3 (05:58→22:39)
[2018-05-18] MEDS ORDERED: levETIRAcetam 500 MG TABLET (FP) PO ONE ×2 (08:42→22:20)
[2018-05-18] MEDS ORDERED: levETIRAcetam 250 MG TABLET (FP) PO ONE ×2 (08:42→22:20)
[2018-05-18] MEDS ORDERED: PT OWN MED DRAWER 7, Y5N ONE (08:43)
[2018-05-18] MEDS: ROFLUMILAST 500 MCG TABLET PO SCH (09:04)
[2018-05-18] MEDS: DULoxetine HCL 30 MG CAPSULE.DR (FP) PO SCH (09:04)
[2018-05-18] MEDS: APIXABAN 2.5 MG TABLET PO SCH ×2 (09:04→22:39)
[2018-05-18] MEDS: METOPROLOL TARTRATE 25 MG TABLET (FP) PO SCH ×2 (09:04→22:38)
[2018-05-18] MEDS: FUROSEMIDE 20 MG TABLET (FP) PO SCH (09:05)
[2018-05-18] MEDS: ISOSORBIDE DINITRATE 20 MG TABLET (FP) PO SCH ×2 (09:05→17:05)
[2018-05-18] MEDS: POTASSIUM CHLORIDE TABS 20 MEQ TABLET.ER (FP) PO SCH (09:05)
[2018-05-18] MEDS: BUDESONIDE/FORMETEROL FUMARATE 160/4.5 mcg INHALER IH SCH ×2 (09:05→23:19)
[2018-05-18] MEDS: PANTOPRAZOLE 40 MG TABLET (FP) PO SCH (09:05)
[2018-05-18] MEDS: MAGNESIUM OXIDE 400 MG TABLET (FP) PO SCH (09:05)
--- NOTE | 2018-05-18 11:27 | PN ---
Progress Note (short form) - Note Progress Note: PULMONARY LYING SUPINE SUBJECTIVE IMPROVEMENT VSS Constitutional: Yes: Anxious Eyes: Yes: EOM Intact HENT: Yes: Normocephalic Neck: Yes: Trachea Midline Cardiovascular: Yes: S1, S2 Respiratory: Yes: Diminished, Wheezes Gastrointestinal: Yes: Abdomen, Obese Edema: LLE: 1+, RLE: 1+ Neurological: Yes: Alert IMAGES/LABS/NOTES/MEDS REVIEWED Assessment/Plan LOCULATED PERICARDIAL EFFUSION FOUND ON CT/ECHO ADMITTED DUE TO INCREASING SOB COPD WITH CHRONIC HYPOXEMIC RESP FAILURE ON HOME O2 CXR DOES NOT SHOW ANY CHANGES FROM PREVIOUS LOCULATED PERICARDIAL PROCESS IS ? CONTRIBUTING TO SYMPTOMATOLOGY TREATING FOR A/E COPD WITH DUONEBS/STEROIDS/O2 SUPPLEMENTATION/DALIRESP MONITOR O2 SATS REPEAT CXR AM CARDIO F/U R [facility] Problem List - Problems (1) Pericardial effusion Code(s): I31.3 - PERICARDIAL EFFUSION (NONINFLAMMATORY) (2) Anxiety Code(s): F41.9 - ANXIETY DISORDER, UNSPECIFIED (3) Atrial fib/flutter, transient Code(s): [id number] - (4) CAD (coronary artery disease) Code(s): I25.10 - ATHSCL HEART DISEASE OF [place] CORONARY ARTERY W/O ANG PCTRS Qualifiers: Coronary Disease-Associated Artery/Lesion type: [place] artery Associated angina: with stable angina (5) CHF (congestive heart failure) Code(s): I50.9 - HEART FAILURE, UNSPECIFIED (6) COPD (chronic obstructive pulmonary disease) Code(s): J44.9 - CHRONIC OBSTRUCTIVE PULMONARY DISEASE, UNSPECIFIED Qualifiers: COPD type: COPD with acute exacerbation Qualified Code(s): J44.1 - Chronic obstructive pulmonary disease with (acute) exacerbation (7) Chronic respiratory failure with hypoxia Code(s): J96.11 - CHRONIC RESPIRATORY FAILURE WITH HYPOXIA (8) Thoracic aortic aneurysm Code(s): I71.2 - THORACIC AORTIC ANEURYSM, WITHOUT RUPTURE (9) Weakness Code(s): R53.1 - WEAKNESS (10) Abdominal aortic aneurysm Code(s): I71.4 - ABDOMINAL AORTIC ANEURYSM, WITHOUT RUPTURE Qualifiers: Presence of rupture: without rupture Qualified Code(s): I71.4 - Abdominal aortic aneurysm, without rupture (11) BPH (benign prostatic hypertrophy) Code(s): N40.0 - BENIGN PROSTATIC HYPERPLASIA WITHOUT LOWER URINRY TRACT SYMP (12) CAD (coronary artery disease) Code(s): I25.10 - ATHSCL HEART DISEASE OF [place] CORONARY ARTERY W/O ANG PCTRS Qualifiers: Coronary Disease-Associated Artery/Lesion type: [place] artery (13) History of permanent cardiac pacemaker placement Code(s): Z95.0 - PRESENCE OF CARDIAC PACEMAKER (14) Hx of CABG Code(s): Z95.1 - PRESENCE OF AORTOCORONARY BYPASS GRAFT
--- NOTE | 2018-05-18 12:46 | PN ---
Progress Note, Physician Chief Complaint: Severe Pericardial effusion History of Present Illness: C/o SOB Seen by Cardiology Tele monitoring Repeat echo pending - Current Medication List Current Medications: Active Medications Albuterol Sulfate (Ventolin 0.083% Nebulizer Soln -) 1 amp NEB Q1H PRN PRN Reason: SHORT OF BREATH/WHEEZING Albuterol/Ipratropium (Duoneb -) 1 amp NEB RQ4H [facility] Last Admin: 05/18/18 11:32 Dose: 1 amp Apixaban (Eliquis -) 2.5 mg PO BID [facility] Last Admin: 05/18/18 09:04 Dose: 2.5 mg Atorvastatin Calcium (Lipitor -) 10 mg PO HS [facility] Last Admin: 05/17/18 22:22 Dose: 10 mg Budesonide/Formoterol Fumarate (Symbicort 160/4.5mcg -) 2 puff IH BID [facility] Last Admin: 05/18/18 09:05 Dose: 2 puff Duloxetine HCl (Cymbalta -) 60 mg PO DAILY [facility] Last Admin: 05/18/18 09:04 Dose: 60 mg Furosemide (Lasix -) 20 mg PO DAILY [facility] Last Admin: 05/18/18 09:05 Dose: 20 mg Guaifenesin (Robitussin -) 10 ml PO Q4H PRN PRN Reason: COUGH Last Admin: 05/17/18 05:36 Dose: 10 ml Isosorbide Dinitrate (Isordil -) 20 mg PO BIDISORDIL [facility] Last Admin: 05/18/18 09:05 Dose: 20 mg Levetiracetam 500 mg/ (Levetiracetam 250 mg) 750 mg PO BID [facility] Last Admin: 05/18/18 09:05 Dose: 750 mg Magnesium Oxide (Mag-Ox -) 400 mg PO DAILY [facility] Last Admin: 05/18/18 09:05 Dose: 400 mg Methylprednisolone Sodium Succinate (Solu-Medrol -) 40 mg IVPUSH Q6H-IV [facility] Last Admin: 05/18/18 09:03 Dose: 40 mg Metoprolol Tartrate (Lopressor -) 37.5 mg PO BID [facility] Last Admin: 05/18/18 09:04 Dose: 37.5 mg Pantoprazole Sodium (Protonix -) 40 mg PO DAILY [facility] Last Admin: 05/18/18 09:05 Dose: 40 mg Potassium Chloride (K-Dur -) 20 meq PO DAILY [facility] Last Admin: 05/18/18 09:05 Dose: 20 meq Pregabalin (Lyrica -) 100 mg PO TID [facility] Last Admin: 05/18/18 05:58 Dose: 100 mg Roflumilast (Daliresp -) 500 mcg PO DAILY [facility] Last Admin: 05/18/18 09:04 Dose: 500 mcg Tamsulosin HCl (Flomax -) 0.4 mg PO [facility] Last Admin: 05/17/18 22:23 Dose: 0.4 mg - Objective Vital Signs: Vital Signs Temperature 98.0 F 05/18/18 10:00 Pulse Rate 64 05/18/18 10:00 Respiratory Rate 20 05/18/18 10:00 Blood Pressure 124/82 05/18/18 10:00 O2 Sat by Pulse Oximetry (%) 93 L 05/18/18 08:00 Constitutional: Yes: Well Nourished, No Distress, Calm Cardiovascular: Yes: Regular Rate and Rhythm Respiratory: Yes: On Venti-Mask, SOB, SOB on Exertion Gastrointestinal: Yes: Normal Bowel Sounds, Soft Genitourinary: Yes: WNL Musculoskeletal: Yes: WNL Extremities: Yes: WNL Edema: No Peripheral Pulses WNL: Yes Neurological: Yes: Alert, Pre-Existing Deficit Psychiatric: Yes: Alert Labs: CBC, BMP 05/17/18 06:30 05/17/18 06:30 INR, PTT INR 1.55 (0.83-1.09) H 05/16/18 19:48 Problem List - Problems (1) Pericardial effusion Assessment/Plan: -Seen by cardiology -repeat Echo on saturday -Pericardial window if needed Code(s): I31.3 - PERICARDIAL EFFUSION (NONINFLAMMATORY) (2) Atrial fib/flutter, transient Assessment/Plan: chronic -rate controlled -On eliquis -Cardiology on board Code(s): [id number] - (3) COPD (chronic obstructive pulmonary disease) Assessment/Plan: -Pulmonary consult -Venti mask, keep Spo2 >90% -Bronchodilators -IV medrol Code(s): J44.9 - CHRONIC OBSTRUCTIVE PULMONARY DISEASE, UNSPECIFIED (4) Hyperlipidemia Assessment/Plan: -LDL at 120 mg/dl -Increase atorvastatin to 20 mg po Code(s): E78.5 - HYPERLIPIDEMIA, UNSPECIFIED Qualifiers: Assessment/Plan see problem list
[2018-05-18] MEDS: ATORVASTATIN CA 20 MG TABLET (FP) PO SCH (22:39)
[2018-05-18] MEDS: TAMSULOSIN HCL 0.4 MG CAP PO SCH (22:39)
[2018-05-19] MEDS: ALBUTEROL SO4 2.5/IPRATROPIUM 0.5 INH SOL 3 ML VIAL.NEB. NEB SCH ×7 (00:30→23:22)
[2018-05-19] MEDS: methylPREDNISolone NA SUCC 40 MG/1 ML VIAL IVPUSH SCH ×4 (02:43→21:06)
[2018-05-19] MEDS: PREGABALIN 100 MG CAPSULE PO SCH ×3 (05:36→21:07)
--- NOTE | 2018-05-19 06:10 | PN ---
Progress Note, Physician Chief Complaint: Pt A&Ox3; still SOB on mild exertion, though feels better. History of Present Illness: 77 year old white male with PMH of COPD s/p chronic hypoxic resp failure, on 3L oxygen at home, HTN, HLD, CAD s/p stent, CABG, AAA repair, PPM (refused ICD), afib on Xarelto, PAD, CVA (left arm sensitivity and aphasia), s/p right shoulder surgery, seizures, now presenting with SOB over the past week and new pericardial effusion since his previous aneurysm follow up CT in 12/2017. He underwent a CTA 4 days ago which showed a 17 mm focal effusion and received and echo today which was technically difficult but did not show tamponade. He denies any chest pain, palpitations, nausea, fevers, or other symptoms. 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 Severe COPD on O2 - Current Medication List Current Medications: Active Medications Albuterol Sulfate (Ventolin 0.083% Nebulizer Soln -) 1 amp NEB Q1H PRN PRN Reason: SHORT OF BREATH/WHEEZING Albuterol/Ipratropium (Duoneb -) 1 amp NEB RQ4H [facility] Last Admin: 05/19/18 04:10 Dose: Not Given Apixaban (Eliquis -) 2.5 mg PO BID [facility] Last Admin: 05/18/18 22:39 Dose: 2.5 mg Atorvastatin Calcium (Lipitor -) 20 mg PO HS [facility] Last Admin: 05/18/18 22:39 Dose: 20 mg Budesonide/Formoterol Fumarate (Symbicort 160/4.5mcg -) 2 puff IH BID [facility] Last Admin: 05/18/18 23:19 Dose: 2 puff Duloxetine HCl (Cymbalta -) 60 mg PO DAILY [facility] Last Admin: 05/18/18 09:04 Dose: 60 mg Furosemide (Lasix -) 20 mg PO DAILY [facility] Last Admin: 05/18/18 09:05 Dose: 20 mg Guaifenesin (Robitussin -) 10 ml PO Q4H PRN PRN Reason: COUGH Last Admin: 05/17/18 05:36 Dose: 10 ml Isosorbide Dinitrate (Isordil -) 20 mg PO BIDISORDIL [facility] Last Admin: 05/18/18 17:05 Dose: 20 mg Levetiracetam 500 mg/ (Levetiracetam 250 mg) 750 mg PO BID [facility] Last Admin: 05/18/18 22:37 Dose: 750 mg Magnesium Oxide (Mag-Ox -) 400 mg PO DAILY [facility] Last Admin: 05/18/18 09:05 Dose: 400 mg Methylprednisolone Sodium Succinate (Solu-Medrol -) 40 mg IVPUSH Q6H-IV [facility] Last Admin: 05/19/18 02:43 Dose: 40 mg Metoprolol Tartrate (Lopressor -) 37.5 mg PO BID [facility] Last Admin: 05/18/18 22:38 Dose: 37.5 mg Pantoprazole Sodium (Protonix -) 40 mg PO DAILY [facility] Last Admin: 05/18/18 09:05 Dose: 40 mg Potassium Chloride (K-Dur -) 20 meq PO DAILY [facility] Last Admin: 05/18/18 09:05 Dose: 20 meq Pregabalin (Lyrica -) 100 mg PO TID [facility] Last Admin: 05/19/18 05:36 Dose: 100 mg Roflumilast (Daliresp -) 500 mcg PO DAILY [facility] Last Admin: 05/18/18 09:04 Dose: 500 mcg Tamsulosin HCl (Flomax -) 0.4 mg PO HS [facility] Last Admin: 05/18/18 22:39 Dose: 0.4 mg - Objective Vital Signs: Vital Signs Temperature 98.4 F 05/19/18 02:00 Pulse Rate 66 05/19/18 02:00 Respiratory Rate 20 05/19/18 02:00 Blood Pressure 127/66 05/19/18 02:00 O2 Sat by Pulse Oximetry (%) 93 L 05/19/18 00:00 Constitutional: Yes: Calm Eyes: Yes: WNL HENT: Yes: WNL Neck: Yes: WNL Cardiovascular: Yes: S1, S2 (split) Respiratory: Yes: Diminished, SOB on Exertion, Tachypnea Gastrointestinal: Yes: Soft ...Rectal Exam: Yes: Deferred Genitourinary: No: Anuria Breast(s): Yes: WNL Musculoskeletal: Yes: Muscle Weakness Extremities: Yes: Cool Edema: No Peripheral Pulses WNL: Yes Integumentary: Yes: WNL Neurological: Yes: Alert, Oriented, Weakness Psychiatric: Yes: Alert, Oriented, Other (anxiety) Labs: CBC, BMP 05/17/18 06:30 05/17/18 06:30 INR, PTT INR 1.55 (0.83-1.09) H 05/16/18 19:48 - ....Imaging Other: Image Reviewed (ventricular pacing) Problem List - Problems (1) Aortic aneurysm Assessment/Plan: stable thoracic aneurysm on recent CTA s/p AAA. Code(s): I71.9 - AORTIC ANEURYSM OF UNSPECIFIED SITE, WITHOUT RUPTURE (2) Pericardial effusion Assessment/Plan: Pericardial effusion noted on recent CT; likely moderate-large (ECHO was difficult due to underlying pulmonary pathology), without clear signs of tamponade. BP stable; HR WNL. Will f/u clinically; repeat studies to assess effusion. Code(s): I31.3 - PERICARDIAL EFFUSION (NONINFLAMMATORY) (3) Anxiety Code(s): F41.9 - ANXIETY DISORDER, UNSPECIFIED (4) COPD (chronic obstructive pulmonary disease) Code(s): J44.9 - CHRONIC OBSTRUCTIVE PULMONARY DISEASE, UNSPECIFIED Qualifiers: COPD type: COPD with acute exacerbation Qualified Code(s): J44.1 - Chronic obstructive pulmonary disease with (acute) exacerbation (5) Hypertension Code(s): I10 - ESSENTIAL (PRIMARY) HYPERTENSION Qualifiers: Hypertension type: essential hypertension Qualified Code(s): I10 - Essential (primary) hypertension (6) Hyperlipidemia Assessment/Plan: f/u lipid panel; on statin; keep LDL cholesterol < 70 mg/dL. Code(s): E78.5 - HYPERLIPIDEMIA, UNSPECIFIED Qualifiers: (7) Ischemic cardiomyopathy Assessment/Plan: s/p PCI Biventricular PPM; pt refused ICD. Code(s): I25.5 - ISCHEMIC CARDIOMYOPATHY
[2018-05-19 08:24] LABS: ANION GAP 8 MMOL/L (8-16); BLOOD UREA NITROGEN 34 mg/dL (7-18); CALCIUM 8.9 mg/dL (8.5-10.1); CHLORIDE 104 mmol/L (98-107); CO2 27 mmol/L (21-32); CREATININE 1.2 mg/dL (0.55-1.3); GLUCOSE,RANDOM 126 mg/dL (74-106); POTASSIUM 4.3 mmol/L (3.5-5.1); SODIUM 139 mmol/L (136-145)
--- NOTE | 2018-05-19 08:41 | PN ---
Progress Note, Physician Chief Complaint: Comfortable No distress TELE: Some runs NSVT - Current Medication List Current Medications: Active Medications Albuterol Sulfate (Ventolin 0.083% Nebulizer Soln -) 1 amp NEB Q1H PRN PRN Reason: SHORT OF BREATH/WHEEZING Albuterol/Ipratropium (Duoneb -) 1 amp NEB RQ4H [facility] Last Admin: 05/19/18 04:10 Dose: Not Given Apixaban (Eliquis -) 2.5 mg PO BID [facility] Last Admin: 05/18/18 22:39 Dose: 2.5 mg Atorvastatin Calcium (Lipitor -) 20 mg PO HS [facility] Last Admin: 05/18/18 22:39 Dose: 20 mg Budesonide/Formoterol Fumarate (Symbicort 160/4.5mcg -) 2 puff IH BID [facility] Last Admin: 05/18/18 23:19 Dose: 2 puff Duloxetine HCl (Cymbalta -) 60 mg PO DAILY [facility] Last Admin: 05/18/18 09:04 Dose: 60 mg Furosemide (Lasix -) 20 mg PO DAILY [facility] Last Admin: 05/18/18 09:05 Dose: 20 mg Guaifenesin (Robitussin -) 10 ml PO Q4H PRN PRN Reason: COUGH Last Admin: 05/17/18 05:36 Dose: 10 ml Isosorbide Dinitrate (Isordil -) 20 mg PO BIDISORDIL [facility] Last Admin: 05/18/18 17:05 Dose: 20 mg Levetiracetam 500 mg/ (Levetiracetam 250 mg) 750 mg PO BID [facility] Last Admin: 05/18/18 22:37 Dose: 750 mg Magnesium Oxide (Mag-Ox -) 400 mg PO DAILY [facility] Last Admin: 05/18/18 09:05 Dose: 400 mg Methylprednisolone Sodium Succinate (Solu-Medrol -) 40 mg IVPUSH Q6H-IV [facility] Last Admin: 05/19/18 02:43 Dose: 40 mg Metoprolol Tartrate (Lopressor -) 37.5 mg PO BID [facility] Last Admin: 05/18/18 22:38 Dose: 37.5 mg Pantoprazole Sodium (Protonix -) 40 mg PO DAILY [facility] Last Admin: 05/18/18 09:05 Dose: 40 mg Potassium Chloride (K-Dur -) 20 meq PO DAILY [facility] Last Admin: 05/18/18 09:05 Dose: 20 meq Pregabalin (Lyrica -) 100 mg PO TID [facility] Last Admin: 05/19/18 05:36 Dose: 100 mg Roflumilast (Daliresp -) 500 mcg PO DAILY [facility] Last Admin: 05/18/18 09:04 Dose: 500 mcg Tamsulosin HCl (Flomax -) 0.4 mg PO HS [facility] Last Admin: 05/18/18 22:39 Dose: 0.4 mg - Objective Vital Signs: Vital Signs Temperature 97.8 F 05/19/18 06:33 Pulse Rate 66 05/19/18 06:33 Respiratory Rate 18 05/19/18 06:33 Blood Pressure 132/76 05/19/18 06:33 O2 Sat by Pulse Oximetry (%) 93 L 05/19/18 00:00 Constitutional: Yes: No Distress, Calm Eyes: Yes: Conjunctiva Clear Cardiovascular: Yes: Regular Rate and Rhythm Respiratory: Yes: CTA Bilaterally Gastrointestinal: Yes: Soft Edema: No Neurological: Yes: Alert, Oriented Labs: CBC, BMP 05/17/18 06:30 05/19/18 06:15 INR, PTT INR 1.55 (0.83-1.09) H 05/16/18 19:48 Laboratory Tests 05/17/18 05/19/18 06:30 06:15 WBC 9.7 Hgb 14.8 Plt Count 151 Sodium 139 Potassium 4.3 Creatinine 1.2 - ....Imaging EKG: Image Reviewed Assessment/Plan IMP: Localized pericardial effusion, moderate, new Chronic COPD w/ mild exacerbation Ischemic CM c/p TIRE ADJUSTER-P PAF on AC Multiple aneurysms, 5.1 cm thoracic REC: Thus far, asx and no hemodynamic signs tamponade Will repeat echo today. Further RX COPD as per pulmonary. Will follow
[2018-05-19] MEDS ORDERED: levETIRAcetam 250 MG TABLET (FP) PO ONE ×2 (09:21→09:45)
[2018-05-19] MEDS ORDERED: levETIRAcetam 500 MG TABLET (FP) PO ONE ×2 (09:21→09:45)
[2018-05-19] MEDS ORDERED: PT OWN MED DRAWER 7, Y5N ONE (09:21)
[2018-05-19] MEDS: DULoxetine HCL 30 MG CAPSULE.DR (FP) PO SCH (09:46)
[2018-05-19] MEDS: ISOSORBIDE DINITRATE 20 MG TABLET (FP) PO SCH ×2 (09:46→17:10)
[2018-05-19] MEDS: POTASSIUM CHLORIDE TABS 20 MEQ TABLET.ER (FP) PO SCH (09:46)
[2018-05-19] MEDS: APIXABAN 2.5 MG TABLET PO SCH ×2 (09:47→21:06)
[2018-05-19] MEDS: FUROSEMIDE 20 MG TABLET (FP) PO SCH (09:47)
[2018-05-19] MEDS: PANTOPRAZOLE 40 MG TABLET (FP) PO SCH (09:47)
[2018-05-19] MEDS: METOPROLOL TARTRATE 25 MG TABLET (FP) PO SCH ×2 (09:47→21:07)
[2018-05-19] MEDS: ROFLUMILAST 500 MCG TABLET PO SCH (09:48)
[2018-05-19] MEDS: MAGNESIUM OXIDE 400 MG TABLET (FP) PO SCH (09:48)
[2018-05-19] MEDS: BUDESONIDE/FORMETEROL FUMARATE 160/4.5 mcg INHALER IH SCH ×2 (09:49→21:07)
--- NOTE | 2018-05-19 11:30 | PN ---
Progress Note, Physician History of Present Illness: PULMONARY ALERT,FEELING BETTER,LESS DYSPNEIC - Current Medication List Current Medications: Active Medications Albuterol Sulfate (Ventolin 0.083% Nebulizer Soln -) 1 amp NEB Q1H PRN PRN Reason: SHORT OF BREATH/WHEEZING Albuterol/Ipratropium (Duoneb -) 1 amp NEB RQ4H [facility] Last Admin: 05/19/18 11:23 Dose: 1 amp Apixaban (Eliquis -) 2.5 mg PO BID [facility] Last Admin: 05/19/18 09:47 Dose: 2.5 mg Atorvastatin Calcium (Lipitor -) 20 mg PO HS [facility] Last Admin: 05/18/18 22:39 Dose: 20 mg Budesonide/Formoterol Fumarate (Symbicort 160/4.5mcg -) 2 puff IH BID [facility] Last Admin: 05/19/18 09:49 Dose: 2 puff Duloxetine HCl (Cymbalta -) 60 mg PO DAILY [facility] Last Admin: 05/19/18 09:46 Dose: 60 mg Furosemide (Lasix -) 20 mg PO DAILY [facility] Last Admin: 05/19/18 09:47 Dose: 20 mg Guaifenesin (Robitussin -) 10 ml PO Q4H PRN PRN Reason: COUGH Last Admin: 05/17/18 05:36 Dose: 10 ml Isosorbide Dinitrate (Isordil -) 20 mg PO BIDISORDIL [facility] Last Admin: 05/19/18 09:46 Dose: 20 mg Levetiracetam 500 mg/ (Levetiracetam 250 mg) 750 mg PO BID [facility] Last Admin: 05/19/18 09:46 Dose: 750 mg Magnesium Oxide (Mag-Ox -) 400 mg PO DAILY [facility] Last Admin: 05/19/18 09:48 Dose: 400 mg Methylprednisolone Sodium Succinate (Solu-Medrol -) 40 mg IVPUSH Q6H-IV [facility] Last Admin: 05/19/18 09:46 Dose: 40 mg Metoprolol Tartrate (Lopressor -) 37.5 mg PO BID [facility] Last Admin: 05/19/18 09:47 Dose: 37.5 mg Pantoprazole Sodium (Protonix -) 40 mg PO DAILY [facility] Last Admin: 05/19/18 09:47 Dose: 40 mg Potassium Chloride (K-Dur -) 20 meq PO DAILY [facility] Last Admin: 05/19/18 09:46 Dose: 20 meq Pregabalin (Lyrica -) 100 mg PO TID [facility] Last Admin: 05/19/18 05:36 Dose: 100 mg Roflumilast (Daliresp -) 500 mcg PO DAILY [facility] Last Admin: 05/19/18 09:48 Dose: 500 mcg Tamsulosin HCl (Flomax -) 0.4 mg PO HS [facility] Last Admin: 05/18/18 22:39 Dose: 0.4 mg - Objective Vital Signs: Vital Signs Temperature 97.8 F 05/19/18 06:33 Pulse Rate 66 05/19/18 06:33 Respiratory Rate 18 05/19/18 06:33 Blood Pressure 132/76 05/19/18 06:33 O2 Sat by Pulse Oximetry (%) 93 L 05/19/18 00:00 Constitutional: Yes: Well Nourished, Calm Eyes: Yes: WNL HENT: Yes: WNL Neck: Yes: WNL Cardiovascular: Yes: Regular Rate and Rhythm, S1, S2 Respiratory: Yes: Rhonchi (SCATTERED WILLIAMS RHONCHI) Gastrointestinal: Yes: Normal Bowel Sounds, Soft Extremities: Yes: WNL Edema: No Labs: 05/19/18 06:15 INR, PTT INR 1.55 (0.83-1.09) H 05/16/18 19:48 Assessment/Plan Assessment/Plan LOCULATED PERICARDIAL EFFUSION COPD EXACERBATION COPD WITH CHRONIC HYPOXEMIC RESP FAILURE ON HOME O2 AFIB ANXIETY ASHD CHF INHALED BRONCHODILATORS STEROIDS O2 SUPPLEMENTATION/ DALIRESP MONITOR O2 SATS ECHO DR JEFFERSON Problem List - Problems (1) Pericardial effusion Code(s): I31.3 - PERICARDIAL EFFUSION (NONINFLAMMATORY) (2) Anxiety Code(s): F41.9 - ANXIETY DISORDER, UNSPECIFIED (3) Atrial fib/flutter, transient Code(s): [id number] - (4) CAD (coronary artery disease) Code(s): I25.10 - ATHSCL HEART DISEASE OF [place] CORONARY ARTERY W/O ANG PCTRS Qualifiers: Coronary Disease-Associated Artery/Lesion type: [place] artery Associated angina: with stable angina (5) CHF (congestive heart failure) Code(s): I50.9 - HEART FAILURE, UNSPECIFIED (6) COPD (chronic obstructive pulmonary disease) Code(s): J44.9 - CHRONIC OBSTRUCTIVE PULMONARY DISEASE, UNSPECIFIED Qualifiers: COPD type: COPD with acute exacerbation Qualified Code(s): J44.1 - Chronic obstructive pulmonary disease with (acute) exacerbation (7) Chronic respiratory failure with hypoxia Code(s): J96.11 - CHRONIC RESPIRATORY FAILURE WITH HYPOXIA (8) Thoracic aortic aneurysm Code(s): I71.2 - THORACIC AORTIC ANEURYSM, WITHOUT RUPTURE (9) Weakness Code(s): R53.1 - WEAKNESS (10) Abdominal aortic aneurysm Code(s): I71.4 - ABDOMINAL AORTIC ANEURYSM, WITHOUT RUPTURE Qualifiers: Presence of rupture: without rupture Qualified Code(s): I71.4 - Abdominal aortic aneurysm, without rupture (11) BPH (benign prostatic hypertrophy) Code(s): N40.0 - BENIGN PROSTATIC HYPERPLASIA WITHOUT LOWER URINRY TRACT SYMP (12) CAD (coronary artery disease) Code(s): I25.10 - ATHSCL HEART DISEASE OF [place] CORONARY ARTERY W/O ANG PCTRS Qualifiers: Coronary Disease-Associated Artery/Lesion type: [place] artery (13) History of permanent cardiac pacemaker placement Code(s): Z95.0 - PRESENCE OF CARDIAC PACEMAKER (14) Hx of CABG Code(s): Z95.1 - PRESENCE OF AORTOCORONARY BYPASS GRAFT
--- NOTE | 2018-05-19 11:49 | ECHO ---
Name: HANG IVAN Exam:Adult Echocardiogram Study Date: 05/19/2018 08:41 AM Age: 77 yrs Reason For Study: PERICARDIAL EFFUSION Height: 67 in Weight: 158 lb BSA: 1.8 m2 Procedure A limited two-dimensional transthoracic echocardiogram was performed (2D). The study was technically limited with all images being suboptimal in quality. Pericardium/Pleura Cannot assess presence of pericardial effusion due to poor acoustic window. Interpretation Summary The study was technically limited with all images being suboptimal in quality. A limited two-dimensional transthoracic echocardiogram was performed (2D). Cannot assess presence of pericardial effusion due to poor acoustic window Clinical correlation is recommended Abdullahi Castro MD 05/19/2018 11:48 AM
--- NOTE | 2018-05-19 11:52 | PN ---
Progress Note, Physician - Current Medication List Current Medications: Active Medications Albuterol Sulfate (Ventolin 0.083% Nebulizer Soln -) 1 amp NEB Q1H PRN PRN Reason: SHORT OF BREATH/WHEEZING Albuterol/Ipratropium (Duoneb -) 1 amp NEB RQ4H [facility] Last Admin: 05/19/18 11:23 Dose: 1 amp Apixaban (Eliquis -) 2.5 mg PO BID [facility] Last Admin: 05/19/18 09:47 Dose: 2.5 mg Atorvastatin Calcium (Lipitor -) 20 mg PO HS [facility] Last Admin: 05/18/18 22:39 Dose: 20 mg Budesonide/Formoterol Fumarate (Symbicort 160/4.5mcg -) 2 puff IH BID [facility] Last Admin: 05/19/18 09:49 Dose: 2 puff Duloxetine HCl (Cymbalta -) 60 mg PO DAILY [facility] Last Admin: 05/19/18 09:46 Dose: 60 mg Furosemide (Lasix -) 20 mg PO DAILY [facility] Last Admin: 05/19/18 09:47 Dose: 20 mg Guaifenesin (Robitussin -) 10 ml PO Q4H PRN PRN Reason: COUGH Last Admin: 05/17/18 05:36 Dose: 10 ml Isosorbide Dinitrate (Isordil -) 20 mg PO BIDISORDIL [facility] Last Admin: 05/19/18 09:46 Dose: 20 mg Levetiracetam 500 mg/ (Levetiracetam 250 mg) 750 mg PO BID [facility] Last Admin: 05/19/18 09:46 Dose: 750 mg Magnesium Oxide (Mag-Ox -) 400 mg PO DAILY [facility] Last Admin: 05/19/18 09:48 Dose: 400 mg Methylprednisolone Sodium Succinate (Solu-Medrol -) 40 mg IVPUSH Q6H-IV [facility] Last Admin: 05/19/18 09:46 Dose: 40 mg Metoprolol Tartrate (Lopressor -) 37.5 mg PO BID [facility] Last Admin: 05/19/18 09:47 Dose: 37.5 mg Pantoprazole Sodium (Protonix -) 40 mg PO DAILY [facility] Last Admin: 05/19/18 09:47 Dose: 40 mg Potassium Chloride (K-Dur -) 20 meq PO DAILY [facility] Last Admin: 05/19/18 09:46 Dose: 20 meq Pregabalin (Lyrica -) 100 mg PO TID [facility] Last Admin: 05/19/18 05:36 Dose: 100 mg Roflumilast (Daliresp -) 500 mcg PO DAILY [facility] Last Admin: 05/19/18 09:48 Dose: 500 mcg Tamsulosin HCl (Flomax -) 0.4 mg PO HS [facility] Last Admin: 05/18/18 22:39 Dose: 0.4 mg - Objective Vital Signs: Vital Signs Temperature 97.8 F 05/19/18 06:33 Pulse Rate 66 05/19/18 06:33 Respiratory Rate 18 05/19/18 06:33 Blood Pressure 132/76 05/19/18 06:33 O2 Sat by Pulse Oximetry (%) 93 L 05/19/18 00:00 Constitutional: Yes: Calm Cardiovascular: Yes: Regular Rate and Rhythm, S1, S2 Respiratory: Yes: CTA Bilaterally Gastrointestinal: Yes: Normal Bowel Sounds, Soft Neurological: Yes: Alert, Oriented Labs: CBC, BMP 05/17/18 06:30 05/19/18 06:15 INR, PTT INR 1.55 (0.83-1.09) H 05/16/18 19:48 Problem List - Problems (1) COPD (chronic obstructive pulmonary disease) Assessment/Plan: iv steroids bronchodilators Code(s): J44.9 - CHRONIC OBSTRUCTIVE PULMONARY DISEASE, UNSPECIFIED Qualifiers: COPD type: COPD with acute exacerbation Qualified Code(s): J44.1 - Chronic obstructive pulmonary disease with (acute) exacerbation (2) Chronic a-fib Assessment/Plan: on eliquis metorprolol bid Code(s): I48.2 - CHRONIC ATRIAL FIBRILLATION (3) Ischemic cardiomyopathy Assessment/Plan: s/p PCI biventricular PPM Code(s): I25.5 - ISCHEMIC CARDIOMYOPATHY (4) Pericardial effusion Assessment/Plan: echo ordered Code(s): I31.3 - PERICARDIAL EFFUSION (NONINFLAMMATORY) (5) BPH (benign prostatic hypertrophy) Assessment/Plan: flomax Code(s): N40.0 - BENIGN PROSTATIC HYPERPLASIA WITHOUT LOWER URINRY TRACT SYMP (6) Seizure Assessment/Plan: keppra bid Code(s): R56.9 - UNSPECIFIED CONVULSIONS
[2018-05-19] MEDS: TAMSULOSIN HCL 0.4 MG CAP PO SCH (21:07)
[2018-05-19] MEDS: ATORVASTATIN CA 20 MG TABLET (FP) PO SCH (21:07)
[2018-05-20] MEDS: methylPREDNISolone NA SUCC 40 MG/1 ML VIAL IVPUSH SCH ×4 (02:14→21:42)
[2018-05-20] MEDS: ALBUTEROL SO4 2.5/IPRATROPIUM 0.5 INH SOL 3 ML VIAL.NEB. NEB SCH ×5 (04:57→20:35)
[2018-05-20] MEDS: PREGABALIN 100 MG CAPSULE PO SCH ×3 (05:51→21:41)
[2018-05-20 07:23] LABS: ALK PHOS 41 U/L (45-117); ANION GAP 4 MMOL/L (8-16); BILIRUBIN,TOTAL 0.4 mg/dL (0.2-1); BLOOD UREA NITROGEN 36 mg/dL (7-18); CALCIUM 8.5 mg/dL (8.5-10.1); CHLORIDE 105 mmol/L (98-107); CO2 29 mmol/L (21-32); CREATININE 1.2 mg/dL (0.55-1.3); GLUCOSE,RANDOM 120 mg/dL (74-106); POTASSIUM 4.4 mmol/L (3.5-5.1); SGOT/AST 11 U/L (15-37); SGPT/ALT 15 U/L (13-61); SODIUM 137 mmol/L (136-145); TOT PROT 6.2 g/dl (6.4-8.2)
[2018-05-20] MEDS ORDERED: PT OWN MED DRAWER 7, Y5N ONE ×3 (08:12→16:54)
[2018-05-20] MEDS ORDERED: levETIRAcetam 250 MG TABLET (FP) PO ONE ×2 (08:12→21:37)
[2018-05-20] MEDS ORDERED: levETIRAcetam 500 MG TABLET (FP) PO ONE ×2 (08:12→21:37)
[2018-05-20] MEDS: DULoxetine HCL 30 MG CAPSULE.DR (FP) PO SCH (09:13)
[2018-05-20] MEDS: POTASSIUM CHLORIDE TABS 20 MEQ TABLET.ER (FP) PO SCH (09:14)
[2018-05-20] MEDS: ISOSORBIDE DINITRATE 20 MG TABLET (FP) PO SCH ×2 (09:14→17:03)
[2018-05-20] MEDS: APIXABAN 2.5 MG TABLET PO SCH ×2 (09:14→21:42)
[2018-05-20] MEDS: ROFLUMILAST 500 MCG TABLET PO SCH (09:17)
[2018-05-20] MEDS: METOPROLOL TARTRATE 25 MG TABLET (FP) PO SCH ×2 (09:18→21:42)
[2018-05-20] MEDS: FUROSEMIDE 20 MG TABLET (FP) PO SCH (09:18)
[2018-05-20] MEDS: MAGNESIUM OXIDE 400 MG TABLET (FP) PO SCH (09:19)
[2018-05-20] MEDS: PANTOPRAZOLE 40 MG TABLET (FP) PO SCH (09:19)
[2018-05-20] MEDS: BUDESONIDE/FORMETEROL FUMARATE 160/4.5 mcg INHALER IH SCH ×2 (09:23→21:44)
--- NOTE | 2018-05-20 09:36 | PN ---
Progress Note, Physician - Current Medication List Current Medications: Active Medications Albuterol Sulfate (Ventolin 0.083% Nebulizer Soln -) 1 amp NEB Q1H PRN PRN Reason: SHORT OF BREATH/WHEEZING Albuterol/Ipratropium (Duoneb -) 1 amp NEB RQ4H [facility] Last Admin: 05/20/18 07:25 Dose: 1 amp Apixaban (Eliquis -) 2.5 mg PO BID [facility] Last Admin: 05/20/18 09:14 Dose: 2.5 mg Atorvastatin Calcium (Lipitor -) 20 mg PO HS [facility] Last Admin: 05/19/18 21:07 Dose: 20 mg Budesonide/Formoterol Fumarate (Symbicort 160/4.5mcg -) 2 puff IH BID [facility] Last Admin: 05/20/18 09:23 Dose: 2 puff Duloxetine HCl (Cymbalta -) 60 mg PO DAILY [facility] Last Admin: 05/20/18 09:13 Dose: 60 mg Furosemide (Lasix -) 20 mg PO DAILY [facility] Last Admin: 05/20/18 09:18 Dose: 20 mg Guaifenesin (Robitussin -) 10 ml PO Q4H PRN PRN Reason: COUGH Last Admin: 05/17/18 05:36 Dose: 10 ml Isosorbide Dinitrate (Isordil -) 20 mg PO BIDISORDIL [facility] Last Admin: 05/20/18 09:14 Dose: 20 mg Levetiracetam 500 mg/ (Levetiracetam 250 mg) 750 mg PO BID [facility] Last Admin: 05/20/18 09:18 Dose: 750 mg Magnesium Oxide (Mag-Ox -) 400 mg PO DAILY [facility] Last Admin: 05/20/18 09:19 Dose: 400 mg Methylprednisolone Sodium Succinate (Solu-Medrol -) 40 mg IVPUSH Q6H-IV [facility] Last Admin: 05/20/18 09:13 Dose: 40 mg Metoprolol Tartrate (Lopressor -) 37.5 mg PO BID [facility] Last Admin: 05/20/18 09:18 Dose: 37.5 mg Pantoprazole Sodium (Protonix -) 40 mg PO DAILY [facility] Last Admin: 05/20/18 09:19 Dose: 40 mg Potassium Chloride (K-Dur -) 20 meq PO DAILY [facility] Last Admin: 05/20/18 09:14 Dose: 20 meq Pregabalin (Lyrica -) 100 mg PO TID [facility] Last Admin: 05/20/18 05:51 Dose: 100 mg Roflumilast (Daliresp -) 500 mcg PO DAILY [facility] Last Admin: 05/20/18 09:17 Dose: 500 mcg Tamsulosin HCl (Flomax -) 0.4 mg PO HS [facility] Last Admin: 05/19/18 21:07 Dose: 0.4 mg - Objective Vital Signs: Vital Signs Temperature 97.4 F L 05/20/18 06:00 Pulse Rate 73 05/20/18 06:00 Respiratory Rate 18 05/20/18 06:00 Blood Pressure 146/85 05/20/18 06:00 O2 Sat by Pulse Oximetry (%) 95 05/19/18 22:00 Cardiovascular: Yes: S1, S2 Respiratory: Yes: Regular, CTA Bilaterally Gastrointestinal: Yes: Normal Bowel Sounds, Soft Labs: CBC, BMP 05/17/18 06:30 05/20/18 06:00 INR, PTT INR 1.55 (0.83-1.09) H 05/16/18 19:48 Assessment/Plan - Problems (1) COPD (chronic obstructive pulmonary disease) Assessment/Plan: iv steroids bronchodilators Code(s): J44.9 - CHRONIC OBSTRUCTIVE PULMONARY DISEASE, UNSPECIFIED Qualifiers: COPD type: COPD with acute exacerbation Qualified Code(s): J44.1 - Chronic obstructive pulmonary disease with (acute) exacerbation (2) Chronic a-fib Assessment/Plan: on eliquis metorprolol bid Code(s): I48.2 - CHRONIC ATRIAL FIBRILLATION (3) Ischemic cardiomyopathy Assessment/Plan: s/p PCI biventricular PPM Code(s): I25.5 - ISCHEMIC CARDIOMYOPATHY (4) Pericardial effusion Assessment/Plan: echo ordered Code(s): I31.3 - PERICARDIAL EFFUSION (NONINFLAMMATORY) (5) BPH (benign prostatic hypertrophy) Assessment/Plan: flomax Code(s): N40.0 - BENIGN PROSTATIC HYPERPLASIA WITHOUT LOWER URINRY TRACT SYMP (6) Seizure Assessment/Plan: keppra bid Code(s): R56.9 - UNSPECIFIED CONVULSIONS
--- NOTE | 2018-05-20 11:11 | PN ---
Progress Note, Physician History of Present Illness: pulmonary alert,less dyspneic oob-chair - Current Medication List Current Medications: Active Medications Albuterol Sulfate (Ventolin 0.083% Nebulizer Soln -) 1 amp NEB Q1H PRN PRN Reason: SHORT OF BREATH/WHEEZING Albuterol/Ipratropium (Duoneb -) 1 amp NEB RQ4H [facility] Last Admin: 05/20/18 07:25 Dose: 1 amp Apixaban (Eliquis -) 2.5 mg PO BID [facility] Last Admin: 05/20/18 09:14 Dose: 2.5 mg Atorvastatin Calcium (Lipitor -) 20 mg PO HS [facility] Last Admin: 05/19/18 21:07 Dose: 20 mg Budesonide/Formoterol Fumarate (Symbicort 160/4.5mcg -) 2 puff IH BID [facility] Last Admin: 05/20/18 09:23 Dose: 2 puff Duloxetine HCl (Cymbalta -) 60 mg PO DAILY [facility] Last Admin: 05/20/18 09:13 Dose: 60 mg Furosemide (Lasix -) 20 mg PO DAILY [facility] Last Admin: 05/20/18 09:18 Dose: 20 mg Guaifenesin (Robitussin -) 10 ml PO Q4H PRN PRN Reason: COUGH Last Admin: 05/17/18 05:36 Dose: 10 ml Isosorbide Dinitrate (Isordil -) 20 mg PO BIDISORDIL [facility] Last Admin: 05/20/18 09:14 Dose: 20 mg Levetiracetam 500 mg/ (Levetiracetam 250 mg) 750 mg PO BID [facility] Last Admin: 05/20/18 09:18 Dose: 750 mg Magnesium Oxide (Mag-Ox -) 400 mg PO DAILY [facility] Last Admin: 05/20/18 09:19 Dose: 400 mg Methylprednisolone Sodium Succinate (Solu-Medrol -) 40 mg IVPUSH Q6H-IV [facility] Last Admin: 05/20/18 09:13 Dose: 40 mg Metoprolol Tartrate (Lopressor -) 37.5 mg PO BID [facility] Last Admin: 05/20/18 09:18 Dose: 37.5 mg Pantoprazole Sodium (Protonix -) 40 mg PO DAILY [facility] Last Admin: 05/20/18 09:19 Dose: 40 mg Potassium Chloride (K-Dur -) 20 meq PO DAILY [facility] Last Admin: 05/20/18 09:14 Dose: 20 meq Pregabalin (Lyrica -) 100 mg PO TID [facility] Last Admin: 05/20/18 05:51 Dose: 100 mg Roflumilast (Daliresp -) 500 mcg PO DAILY [facility] Last Admin: 05/20/18 09:17 Dose: 500 mcg Tamsulosin HCl (Flomax -) 0.4 mg PO HS [facility] Last Admin: 05/19/18 21:07 Dose: 0.4 mg - Objective Vital Signs: Vital Signs Temperature 97.9 F 05/20/18 10:00 Pulse Rate 92 H 05/20/18 10:00 Respiratory Rate 18 05/20/18 10:00 Blood Pressure 124/79 05/20/18 10:00 O2 Sat by Pulse Oximetry (%) 92 L 05/20/18 10:00 Constitutional: Yes: Well Nourished, Calm Eyes: Yes: WNL HENT: Yes: WNL Neck: Yes: WNL Cardiovascular: Yes: Pulse Irregular, S1, S2 Respiratory: Yes: Wheezes (few scattered wheezes) Gastrointestinal: Yes: Normal Bowel Sounds, Soft Extremities: Yes: WNL Edema: No Labs: 05/20/18 06:00 INR, PTT Assessment/Plan Assessment/Plan LOCULATED PERICARDIAL EFFUSION COPD EXACERBATION COPD WITH CHRONIC HYPOXEMIC RESP FAILURE ON HOME O2 AFIB ANXIETY ASHD CHF INHALED BRONCHODILATORS STEROIDS O2 SUPPLEMENTATION/ DALIRESP MONITOR O2 SATS DR JEFFERSON Problem List - Problems (1) Pericardial effusion Code(s): I31.3 - PERICARDIAL EFFUSION (NONINFLAMMATORY) (2) Anxiety Code(s): F41.9 - ANXIETY DISORDER, UNSPECIFIED (3) Atrial fib/flutter, transient Code(s): [id number] - (4) CAD (coronary artery disease) Code(s): I25.10 - ATHSCL HEART DISEASE OF [place] CORONARY ARTERY W/O ANG PCTRS Qualifiers: Coronary Disease-Associated Artery/Lesion type: [place] artery Associated angina: with stable angina (5) CHF (congestive heart failure) Code(s): I50.9 - HEART FAILURE, UNSPECIFIED (6) COPD (chronic obstructive pulmonary disease) Code(s): J44.9 - CHRONIC OBSTRUCTIVE PULMONARY DISEASE, UNSPECIFIED Qualifiers: COPD type: COPD with acute exacerbation Qualified Code(s): J44.1 - Chronic obstructive pulmonary disease with (acute) exacerbation (7) Chronic respiratory failure with hypoxia Code(s): J96.11 - CHRONIC RESPIRATORY FAILURE WITH HYPOXIA (8) Thoracic aortic aneurysm Code(s): I71.2 - THORACIC AORTIC ANEURYSM, WITHOUT RUPTURE (9) Weakness Code(s): R53.1 - WEAKNESS (10) Abdominal aortic aneurysm Code(s): I71.4 - ABDOMINAL AORTIC ANEURYSM, WITHOUT RUPTURE Qualifiers: Presence of rupture: without rupture Qualified Code(s): I71.4 - Abdominal aortic aneurysm, without rupture (11) BPH (benign prostatic hypertrophy) Code(s): N40.0 - BENIGN PROSTATIC HYPERPLASIA WITHOUT LOWER URINRY TRACT SYMP (12) CAD (coronary artery disease) Code(s): I25.10 - ATHSCL HEART DISEASE OF [place] CORONARY ARTERY W/O ANG PCTRS Qualifiers: Coronary Disease-Associated Artery/Lesion type: [place] artery (13) History of permanent cardiac pacemaker placement Code(s): Z95.0 - PRESENCE OF CARDIAC PACEMAKER (14) Hx of CABG Code(s): Z95.1 - PRESENCE OF AORTOCORONARY BYPASS GRAFT
[2018-05-20] MEDS: guaiFENesin 200 MG/10 ML 10 ML UNIT-DOSE CUPS PO PRN (14:47)
--- NOTE | 2018-05-20 16:46 | PN ---
Progress Note, Physician Chief Complaint: Pt A&Ox3; asymptomatic. History of Present Illness: 77 year old white male with PMH of COPD s/p chronic hypoxic resp failure, on 3L oxygen at home, HTN, HLD, CAD s/p stent, CABG, AAA repair, PPM (refused ICD), afib on Xarelto, PAD, CVA (left arm sensitivity and aphasia), s/p right shoulder surgery, seizures, now presenting with SOB over the past week and new pericardial effusion since his previous aneurysm follow up CT in 12/2017. He underwent a CTA 4 days ago which showed a 17 mm focal effusion and received and echo today which was technically difficult but did not show tamponade. He denies any chest pain, palpitations, nausea, fevers, or other symptoms. 05/16/18 19:28Multiple aneurysms including a 5.1 cm stable thoracic aneurysm CAD s/p PCI and ischemic Cardiomyopathy requiring SENIOR INSPECTOR-P (refused ICD) PAF on senior living NOAC therapy Severe COPD on O2 - Current Medication List Current Medications: Active Medications Albuterol Sulfate (Ventolin 0.083% Nebulizer Soln -) 1 amp NEB Q1H PRN PRN Reason: SHORT OF BREATH/WHEEZING Albuterol/Ipratropium (Duoneb -) 1 amp NEB RQ4H [facility] Last Admin: 05/20/18 15:50 Dose: 1 amp Apixaban (Eliquis -) 2.5 mg PO BID [facility] Last Admin: 05/20/18 09:14 Dose: 2.5 mg Atorvastatin Calcium (Lipitor -) 20 mg PO HS [facility] Last Admin: 05/19/18 21:07 Dose: 20 mg Budesonide/Formoterol Fumarate (Symbicort 160/4.5mcg -) 2 puff IH BID [facility] Last Admin: 05/20/18 09:23 Dose: 2 puff Duloxetine HCl (Cymbalta -) 60 mg PO DAILY [facility] Last Admin: 05/20/18 09:13 Dose: 60 mg Furosemide (Lasix -) 20 mg PO DAILY [facility] Last Admin: 05/20/18 09:18 Dose: 20 mg Guaifenesin/Codeine Phosphate (Robitussin Ac -) 5 ml PO Q8H PRN PRN Reason: COUGH Isosorbide Dinitrate (Isordil -) 20 mg PO BIDISORDIL [facility] Last Admin: 05/20/18 09:14 Dose: 20 mg Levetiracetam 500 mg/ (Levetiracetam 250 mg) 750 mg PO BID [facility] Last Admin: 05/20/18 09:18 Dose: 750 mg Magnesium Oxide (Mag-Ox -) 400 mg PO DAILY [facility] Last Admin: 05/20/18 09:19 Dose: 400 mg Methylprednisolone Sodium Succinate (Solu-Medrol -) 40 mg IVPUSH Q6H-IV [facility] Last Admin: 05/20/18 14:05 Dose: 40 mg Metoprolol Tartrate (Lopressor -) 37.5 mg PO BID [facility] Last Admin: 05/20/18 09:18 Dose: 37.5 mg Pantoprazole Sodium (Protonix -) 40 mg PO DAILY [facility] Last Admin: 05/20/18 09:19 Dose: 40 mg Potassium Chloride (K-Dur -) 20 meq PO DAILY [facility] Last Admin: 05/20/18 09:14 Dose: 20 meq Pregabalin (Lyrica -) 100 mg PO TID [facility] Last Admin: 05/20/18 14:04 Dose: 100 mg Roflumilast (Daliresp -) 500 mcg PO DAILY [facility] Last Admin: 05/20/18 09:17 Dose: 500 mcg Tamsulosin HCl (Flomax -) 0.4 mg PO HS [facility] Last Admin: 05/19/18 21:07 Dose: 0.4 mg - Objective Vital Signs: Vital Signs Temperature 98.2 F 05/20/18 14:00 Pulse Rate 74 05/20/18 14:00 Respiratory Rate 18 05/20/18 14:00 Blood Pressure 110/76 05/20/18 14:00 O2 Sat by Pulse Oximetry (%) 92 L 05/20/18 10:00 Constitutional: Yes: No Distress Eyes: Yes: WNL Labs: CBC, BMP 05/17/18 06:30 05/20/18 06:00 INR, PTT INR 1.55 (0.83-1.09) H 05/16/18 19:48 Problem List - Problems (1) Aortic aneurysm Assessment/Plan: stable thoracic aneurysm on recent CTA s/p AAA. Code(s): I71.9 - AORTIC ANEURYSM OF UNSPECIFIED SITE, WITHOUT RUPTURE (2) Pericardial effusion Assessment/Plan: Pericardial effusion noted on recent CT; likely moderate-large (ECHO was difficult due to underlying pulmonary pathology), without clear signs of tamponade. BP stable; HR WNL. Pt is asymptomatic. Telemetry: no arrhythmia. Will f/u clinically; repeat studies to assess effusion (initial ECHO in hospital this admission was suboptimal, likely due to severe COPD and pt's inability to position himself for best views). Code(s): I31.3 - PERICARDIAL EFFUSION (NONINFLAMMATORY) (3) Anxiety Code(s): F41.9 - ANXIETY DISORDER, UNSPECIFIED (4) COPD (chronic obstructive pulmonary disease) Code(s): J44.9 - CHRONIC OBSTRUCTIVE PULMONARY DISEASE, UNSPECIFIED Qualifiers: COPD type: COPD with acute exacerbation Qualified Code(s): J44.1 - Chronic obstructive pulmonary disease with (acute) exacerbation (5) Hypertension Assessment/Plan: Well-controlled on metoprolol, furosemide, Imdur. Code(s): I10 - ESSENTIAL (PRIMARY) HYPERTENSION Qualifiers: Hypertension type: essential hypertension Qualified Code(s): I10 - Essential (primary) hypertension (6) Hyperlipidemia Assessment/Plan: LDL cholesterol 120 mg/dL; increase atorvastatin to 40 mg daily. Code(s): E78.5 - HYPERLIPIDEMIA, UNSPECIFIED Qualifiers: (7) Ischemic cardiomyopathy Code(s): I25.5 - ISCHEMIC CARDIOMYOPATHY
[2018-05-20] MEDS: TAMSULOSIN HCL 0.4 MG CAP PO SCH (21:41)
[2018-05-20] MEDS: ATORVASTATIN CA 20 MG TABLET (FP) PO SCH (21:42)
[2018-05-20] MEDS: ATORVASTATIN CA 40 MG TABLET (FP) PO SCH (22:37)
[2018-05-21] MEDS: ALBUTEROL SO4 2.5/IPRATROPIUM 0.5 INH SOL 3 ML VIAL.NEB. NEB SCH ×6 (00:05→20:38)
[2018-05-21] MEDS: methylPREDNISolone NA SUCC 40 MG/1 ML VIAL IVPUSH SCH ×2 (02:22→10:08)
[2018-05-21] MEDS: guaiFENesin/CODEINE 5 ML UNIT-DOSE CUPS PO PRN ×2 (02:29→21:46)
[2018-05-21] MEDS: PREGABALIN 100 MG CAPSULE PO SCH ×3 (05:30→21:43)
[2018-05-21 07:11] LABS: ANION GAP 6 MMOL/L (8-16); BLOOD UREA NITROGEN 34 mg/dL (7-18); CHLORIDE 106 mmol/L (98-107); CO2 29 mmol/L (21-32); CREATININE 1.2 mg/dL (0.55-1.3); GLUCOSE,RANDOM 116 mg/dL (74-106); POTASSIUM 5.2 mmol/L (3.5-5.1); SODIUM 140 mmol/L (136-145)
--- NOTE | 2018-05-21 07:56 | PN ---
Progress Note, Physician - Current Medication List Current Medications: Active Medications Albuterol Sulfate (Ventolin 0.083% Nebulizer Soln -) 1 amp NEB Q1H PRN PRN Reason: SHORT OF BREATH/WHEEZING Albuterol/Ipratropium (Duoneb -) 1 amp NEB RQ4H [facility] Last Admin: 05/21/18 04:20 Dose: Not Given Apixaban (Eliquis -) 2.5 mg PO BID [facility] Last Admin: 05/20/18 21:42 Dose: 2.5 mg Atorvastatin Calcium (Lipitor -) 40 mg PO HS [facility] Last Admin: 05/20/18 22:37 Dose: Not Given Budesonide/Formoterol Fumarate (Symbicort 160/4.5mcg -) 2 puff IH BID [facility] Last Admin: 05/20/18 21:44 Dose: 2 puff Duloxetine HCl (Cymbalta -) 60 mg PO DAILY [facility] Last Admin: 05/20/18 09:13 Dose: 60 mg Furosemide (Lasix -) 20 mg PO DAILY [facility] Last Admin: 05/20/18 09:18 Dose: 20 mg Guaifenesin/Codeine Phosphate (Robitussin Ac -) 5 ml PO Q8H PRN PRN Reason: COUGH Last Admin: 05/21/18 02:29 Dose: 5 ml Isosorbide Dinitrate (Isordil -) 20 mg PO BIDISORDIL [facility] Last Admin: 05/20/18 17:03 Dose: 20 mg Levetiracetam 500 mg/ (Levetiracetam 250 mg) 750 mg PO BID [facility] Last Admin: 05/20/18 21:41 Dose: 750 mg Magnesium Oxide (Mag-Ox -) 400 mg PO DAILY [facility] Last Admin: 05/20/18 09:19 Dose: 400 mg Methylprednisolone Sodium Succinate (Solu-Medrol -) 40 mg IVPUSH Q6H-IV [facility] Last Admin: 05/21/18 02:22 Dose: 40 mg Metoprolol Tartrate (Lopressor -) 37.5 mg PO BID [facility] Last Admin: 05/20/18 21:42 Dose: 37.5 mg Pantoprazole Sodium (Protonix -) 40 mg PO DAILY [facility] Last Admin: 05/20/18 09:19 Dose: 40 mg Potassium Chloride (K-Dur -) 20 meq PO DAILY [facility] Last Admin: 05/20/18 09:14 Dose: 20 meq Pregabalin (Lyrica -) 100 mg PO TID [facility] Last Admin: 05/21/18 05:30 Dose: 100 mg Roflumilast (Daliresp -) 500 mcg PO DAILY [facility] Last Admin: 05/20/18 09:17 Dose: 500 mcg Tamsulosin HCl (Flomax -) 0.4 mg PO HS [facility] Last Admin: 05/20/18 21:41 Dose: 0.4 mg - Objective Vital Signs: Vital Signs Temperature 97.5 F L 05/21/18 06:00 Pulse Rate 62 05/21/18 06:00 Respiratory Rate 20 05/21/18 06:00 Blood Pressure 133/89 05/21/18 06:00 O2 Sat by Pulse Oximetry (%) 92 L 05/20/18 22:00 Cardiovascular: Yes: S1, S2 Respiratory: Yes: Regular, CTA Bilaterally Gastrointestinal: Yes: Normal Bowel Sounds, Soft Labs: CBC, BMP 05/17/18 06:30 05/21/18 06:00 INR, PTT INR 1.55 (0.83-1.09) H 05/16/18 19:48 Assessment/Plan - Problems (1) COPD (chronic obstructive pulmonary disease) Assessment/Plan: iv steroids--Taper BID bronchodilators Code(s): J44.9 - CHRONIC OBSTRUCTIVE PULMONARY DISEASE, UNSPECIFIED Qualifiers: COPD type: COPD with acute exacerbation Qualified Code(s): J44.1 - Chronic obstructive pulmonary disease with (acute) exacerbation (2) Chronic a-fib Assessment/Plan: on eliquis metorprolol bid Code(s): I48.2 - CHRONIC ATRIAL FIBRILLATION (3) Ischemic cardiomyopathy Assessment/Plan: s/p PCI biventricular PPM Code(s): I25.5 - ISCHEMIC CARDIOMYOPATHY (4) Pericardial effusion Assessment/Plan: echo POOR QUALITY CARDIO NOTED Code(s): I31.3 - PERICARDIAL EFFUSION (NONINFLAMMATORY) (5) BPH (benign prostatic hypertrophy) Assessment/Plan: flomax Code(s): N40.0 - BENIGN PROSTATIC HYPERPLASIA WITHOUT LOWER URINRY TRACT SYMP (6) Seizure Assessment/Plan: keppra bid Code(s): R56.9 - UNSPECIFIED CONVULSIONS (7) Hyperkalemia Assessment/Plan: dc kdur [facility] am
--- NOTE | 2018-05-21 08:40 | PN ---
Progress Note, Physician Chief Complaint: seen, examined no acute distress TELE: Paced, occasional PVCs - Current Medication List Current Medications: Active Medications Albuterol Sulfate (Ventolin 0.083% Nebulizer Soln -) 1 amp NEB Q1H PRN PRN Reason: SHORT OF BREATH/WHEEZING Albuterol/Ipratropium (Duoneb -) 1 amp NEB RQ4H [facility] Last Admin: 05/21/18 08:34 Dose: 1 amp Apixaban (Eliquis -) 2.5 mg PO BID [facility] Last Admin: 05/20/18 21:42 Dose: 2.5 mg Atorvastatin Calcium (Lipitor -) 40 mg PO HS [facility] Last Admin: 05/20/18 22:37 Dose: Not Given Budesonide/Formoterol Fumarate (Symbicort 160/4.5mcg -) 2 puff IH BID [facility] Last Admin: 05/20/18 21:44 Dose: 2 puff Duloxetine HCl (Cymbalta -) 60 mg PO DAILY [facility] Last Admin: 05/20/18 09:13 Dose: 60 mg Furosemide (Lasix -) 20 mg PO DAILY [facility] Last Admin: 05/20/18 09:18 Dose: 20 mg Guaifenesin/Codeine Phosphate (Robitussin Ac -) 5 ml PO Q8H PRN PRN Reason: COUGH Last Admin: 05/21/18 02:29 Dose: 5 ml Isosorbide Dinitrate (Isordil -) 20 mg PO BIDISORDIL [facility] Last Admin: 05/20/18 17:03 Dose: 20 mg Levetiracetam 500 mg/ (Levetiracetam 250 mg) 750 mg PO BID [facility] Last Admin: 05/20/18 21:41 Dose: 750 mg Magnesium Oxide (Mag-Ox -) 400 mg PO DAILY [facility] Last Admin: 05/20/18 09:19 Dose: 400 mg Methylprednisolone Sodium Succinate (Solu-Medrol -) 40 mg IVPUSH Q6H-IV [facility] Last Admin: 05/21/18 02:22 Dose: 40 mg Metoprolol Tartrate (Lopressor -) 37.5 mg PO BID [facility] Last Admin: 05/20/18 21:42 Dose: 37.5 mg Pantoprazole Sodium (Protonix -) 40 mg PO DAILY [facility] Last Admin: 05/20/18 09:19 Dose: 40 mg Potassium Chloride (K-Dur -) 20 meq PO DAILY [facility] Last Admin: 05/20/18 09:14 Dose: 20 meq Pregabalin (Lyrica -) 100 mg PO TID [facility] Last Admin: 05/21/18 05:30 Dose: 100 mg Roflumilast (Daliresp -) 500 mcg PO DAILY [facility] Last Admin: 05/20/18 09:17 Dose: 500 mcg Tamsulosin HCl (Flomax -) 0.4 mg PO HS [facility] Last Admin: 05/20/18 21:41 Dose: 0.4 mg - Objective Vital Signs: Vital Signs Temperature 97.5 F L 05/21/18 06:00 Pulse Rate 62 05/21/18 06:00 Respiratory Rate 20 05/21/18 06:00 Blood Pressure 133/89 05/21/18 06:00 O2 Sat by Pulse Oximetry (%) 92 L 05/20/18 22:00 Constitutional: Yes: No Distress Cardiovascular: Yes: Regular Rate and Rhythm Respiratory: Yes: Other (decreased breath sounds at bases) Gastrointestinal: Yes: Soft Edema: No Neurological: Yes: Alert, Oriented Labs: CBC, BMP 05/17/18 06:30 05/21/18 06:00 INR, PTT INR 1.55 (0.83-1.09) H 05/16/18 19:48 Assessment/Plan IMP: Localized pericardial effusion, moderate, new Chronic COPD w/ mild exacerbation 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 Thus far, asx and no hemodynamic signs tamponade. BP remains stable, no pulsus on my exam. Repeat echo here was technically difficult w/poor acoustic windows. As patient remains stable, there is no indication for intervention for the effusion at this time. 2. Further RX COPD as per pulmonary.
[2018-05-21] MEDS ORDERED: levETIRAcetam 500 MG TABLET (FP) PO ONE ×2 (09:07→21:40)
[2018-05-21] MEDS ORDERED: levETIRAcetam 250 MG TABLET (FP) PO ONE ×2 (09:07→21:40)
[2018-05-21] MEDS ORDERED: PT OWN MED DRAWER 7, Y5N ONE (09:08)
[2018-05-21] MEDS: DULoxetine HCL 30 MG CAPSULE.DR (FP) PO SCH (09:10)
[2018-05-21] MEDS: FUROSEMIDE 20 MG TABLET (FP) PO SCH (09:11)
[2018-05-21] MEDS: ISOSORBIDE DINITRATE 20 MG TABLET (FP) PO SCH ×2 (09:11→17:19)
[2018-05-21] MEDS: METOPROLOL TARTRATE 25 MG TABLET (FP) PO SCH ×2 (09:11→21:43)
[2018-05-21] MEDS: PANTOPRAZOLE 40 MG TABLET (FP) PO SCH (09:11)
[2018-05-21] MEDS: APIXABAN 2.5 MG TABLET PO SCH ×2 (09:12→21:43)
[2018-05-21] MEDS: POTASSIUM CHLORIDE TABS 20 MEQ TABLET.ER (FP) PO SCH (09:12)
[2018-05-21] MEDS: MAGNESIUM OXIDE 400 MG TABLET (FP) PO SCH (09:12)
[2018-05-21] MEDS: ROFLUMILAST 500 MCG TABLET PO SCH (09:13)
[2018-05-21] MEDS ORDERED: methylPREDNISolone NA SUCC 40 MG/1 ML VIAL IVPUSH SCH (10:00)
[2018-05-21] MEDS: BUDESONIDE/FORMETEROL FUMARATE 160/4.5 mcg INHALER IH SCH ×2 (10:06→21:43)
--- NOTE | 2018-05-21 10:51 | PN ---
Progress Note, Physician History of Present Illness: pulmonary alert,oob-chair,dyspnea improved,less cough - Current Medication List Current Medications: Active Medications Albuterol Sulfate (Ventolin 0.083% Nebulizer Soln -) 1 amp NEB Q1H PRN PRN Reason: SHORT OF BREATH/WHEEZING Albuterol/Ipratropium (Duoneb -) 1 amp NEB RQ4H [facility] Last Admin: 05/21/18 08:34 Dose: 1 amp Apixaban (Eliquis -) 2.5 mg PO BID [facility] Last Admin: 05/21/18 09:12 Dose: 2.5 mg Atorvastatin Calcium (Lipitor -) 40 mg PO HS [facility] Last Admin: 05/20/18 22:37 Dose: Not Given Budesonide/Formoterol Fumarate (Symbicort 160/4.5mcg -) 2 puff IH BID [facility] Last Admin: 05/21/18 10:06 Dose: 2 puff Duloxetine HCl (Cymbalta -) 60 mg PO DAILY [facility] Last Admin: 05/21/18 09:10 Dose: 60 mg Furosemide (Lasix -) 20 mg PO DAILY [facility] Last Admin: 05/21/18 09:11 Dose: 20 mg Guaifenesin/Codeine Phosphate (Robitussin Ac -) 5 ml PO Q8H PRN PRN Reason: COUGH Last Admin: 05/21/18 02:29 Dose: 5 ml Isosorbide Dinitrate (Isordil -) 20 mg PO BIDISORDIL [facility] Last Admin: 05/21/18 09:11 Dose: 20 mg Levetiracetam 500 mg/ (Levetiracetam 250 mg) 750 mg PO BID [facility] Last Admin: 05/21/18 09:10 Dose: 750 mg Magnesium Oxide (Mag-Ox -) 400 mg PO DAILY [facility] Last Admin: 05/21/18 09:12 Dose: 400 mg Methylprednisolone Sodium Succinate (Solu-Medrol -) 40 mg IVPUSH BID [facility] Last Admin: 05/21/18 10:06 Dose: 40 mg Metoprolol Tartrate (Lopressor -) 37.5 mg PO BID [facility] Last Admin: 05/21/18 09:11 Dose: 37.5 mg Pantoprazole Sodium (Protonix -) 40 mg PO DAILY [facility] Last Admin: 05/21/18 09:11 Dose: 40 mg Pregabalin (Lyrica -) 100 mg PO TID [facility] Last Admin: 05/21/18 05:30 Dose: 100 mg Roflumilast (Daliresp -) 500 mcg PO DAILY [facility] Last Admin: 05/21/18 09:13 Dose: 500 mcg Tamsulosin HCl (Flomax -) 0.4 mg PO HS [facility] Last Admin: 05/20/18 21:41 Dose: 0.4 mg - Objective Vital Signs: Vital Signs Temperature 98.1 F 05/21/18 08:40 Pulse Rate 79 05/21/18 08:40 Respiratory Rate 18 05/21/18 08:48 Blood Pressure 134/75 05/21/18 08:40 O2 Sat by Pulse Oximetry (%) 92 L 05/21/18 08:48 Constitutional: Yes: Well Nourished, Calm Eyes: Yes: WNL HENT: Yes: WNL Neck: Yes: WNL Cardiovascular: Yes: Pulse Irregular, S1, S2 Respiratory: Yes: Diminished Gastrointestinal: Yes: Normal Bowel Sounds, Soft Extremities: Yes: WNL Edema: No Labs: CBC, BMP 05/17/18 06:30 05/21/18 06:00 INR, PTT INR 1.55 (0.83-1.09) H 05/16/18 19:48 - ....Imaging Chest X-ray: Report Reviewed Assessment/Plan Assessment/Plan LOCULATED PERICARDIAL EFFUSION COPD EXACERBATION IMPROVED COPD WITH CHRONIC HYPOXEMIC RESP FAILURE ON HOME O2 AFIB ANXIETY ASHD CHF INHALED BRONCHODILATORS D/C MEDROL PREDNISONE 40 MG DAILY WITH TAPER O2 SUPPLEMENTATION DALIRESP MONITOR O2 SATS DR JEFFERSON Problem List - Problems (1) Pericardial effusion Code(s): I31.3 - PERICARDIAL EFFUSION (NONINFLAMMATORY) (2) Anxiety Code(s): F41.9 - ANXIETY DISORDER, UNSPECIFIED (3) Atrial fib/flutter, transient Code(s): [id number] - (4) CAD (coronary artery disease) Code(s): I25.10 - ATHSCL HEART DISEASE OF [place] CORONARY ARTERY W/O ANG PCTRS Qualifiers: Coronary Disease-Associated Artery/Lesion type: [place] artery Associated angina: with stable angina (5) CHF (congestive heart failure) Code(s): I50.9 - HEART FAILURE, UNSPECIFIED (6) COPD (chronic obstructive pulmonary disease) Code(s): J44.9 - CHRONIC OBSTRUCTIVE PULMONARY DISEASE, UNSPECIFIED Qualifiers: COPD type: COPD with acute exacerbation Qualified Code(s): J44.1 - Chronic obstructive pulmonary disease with (acute) exacerbation (7) Chronic respiratory failure with hypoxia Code(s): J96.11 - CHRONIC RESPIRATORY FAILURE WITH HYPOXIA (8) Thoracic aortic aneurysm Code(s): I71.2 - THORACIC AORTIC ANEURYSM, WITHOUT RUPTURE (9) Weakness Code(s): R53.1 - WEAKNESS (10) Abdominal aortic aneurysm Code(s): I71.4 - ABDOMINAL AORTIC ANEURYSM, WITHOUT RUPTURE Qualifiers: Presence of rupture: without rupture Qualified Code(s): I71.4 - Abdominal aortic aneurysm, without rupture (11) BPH (benign prostatic hypertrophy) Code(s): N40.0 - BENIGN PROSTATIC HYPERPLASIA WITHOUT LOWER URINRY TRACT SYMP (12) CAD (coronary artery disease) Code(s): I25.10 - ATHSCL HEART DISEASE OF [place] CORONARY ARTERY W/O ANG PCTRS Qualifiers: Coronary Disease-Associated Artery/Lesion type: [place] artery (13) History of permanent cardiac pacemaker placement Code(s): Z95.0 - PRESENCE OF CARDIAC PACEMAKER (14) Hx of CABG Code(s): Z95.1 - PRESENCE OF AORTOCORONARY BYPASS GRAFT
[2018-05-21] MEDS: ATORVASTATIN CA 40 MG TABLET (FP) PO SCH (21:43)
[2018-05-21] MEDS: TAMSULOSIN HCL 0.4 MG CAP PO SCH (21:43)
[2018-05-22] MEDS: ALBUTEROL SO4 2.5/IPRATROPIUM 0.5 INH SOL 3 ML VIAL.NEB. NEB SCH ×4 (00:35→11:12)
[2018-05-22] MEDS: PREGABALIN 100 MG CAPSULE PO SCH (05:57)
[2018-05-22 07:51] LABS: ANION GAP 5 MMOL/L (8-16); BLOOD UREA NITROGEN 35 mg/dL (7-18); CALCIUM 8.6 mg/dL (8.5-10.1); CHLORIDE 107 mmol/L (98-107); CO2 29 mmol/L (21-32); CREATININE 1.1 mg/dL (0.55-1.3); GLUCOSE,RANDOM 79 mg/dL (74-106); POTASSIUM 4.1 mmol/L (3.5-5.1); SODIUM 141 mmol/L (136-145)
--- NOTE | 2018-05-22 08:57 | PN ---
Progress Note, Physician Chief Complaint: seen and examined no distress TELE: Paced. - Current Medication List Current Medications: Active Medications Albuterol Sulfate (Ventolin 0.083% Nebulizer Soln -) 1 amp NEB Q1H PRN PRN Reason: SHORT OF BREATH/WHEEZING Albuterol/Ipratropium (Duoneb -) 1 amp NEB RQ4H [facility] Last Admin: 05/22/18 07:24 Dose: Not Given Apixaban (Eliquis -) 2.5 mg PO BID [facility] Last Admin: 05/21/18 21:43 Dose: 2.5 mg Atorvastatin Calcium (Lipitor -) 40 mg PO HS [facility] Last Admin: 05/21/18 21:43 Dose: 40 mg Budesonide/Formoterol Fumarate (Symbicort 160/4.5mcg -) 2 puff IH BID [facility] Last Admin: 05/21/18 21:43 Dose: 2 puff Duloxetine HCl (Cymbalta -) 60 mg PO DAILY [facility] Last Admin: 05/21/18 09:10 Dose: 60 mg Furosemide (Lasix -) 20 mg PO DAILY [facility] Last Admin: 05/21/18 09:11 Dose: 20 mg Guaifenesin/Codeine Phosphate (Robitussin Ac -) 5 ml PO Q8H PRN PRN Reason: COUGH Last Admin: 05/21/18 21:46 Dose: 5 ml Isosorbide Dinitrate (Isordil -) 20 mg PO BIDISORDIL [facility] Last Admin: 05/21/18 17:19 Dose: 20 mg Levetiracetam 500 mg/ (Levetiracetam 250 mg) 750 mg PO BID [facility] Last Admin: 05/21/18 21:43 Dose: 750 mg Magnesium Oxide (Mag-Ox -) 400 mg PO DAILY [facility] Last Admin: 05/21/18 09:12 Dose: 400 mg Metoprolol Tartrate (Lopressor -) 37.5 mg PO BID [facility] Last Admin: 05/21/18 21:43 Dose: 37.5 mg Pantoprazole Sodium (Protonix -) 40 mg PO DAILY [facility] Last Admin: 05/21/18 09:11 Dose: 40 mg Prednisone (Deltasone -) 40 mg PO DAILY [facility] Pregabalin (Lyrica -) 100 mg PO TID [facility] Last Admin: 05/22/18 05:57 Dose: 100 mg Roflumilast (Daliresp -) 500 mcg PO DAILY [facility] Last Admin: 05/21/18 09:13 Dose: 500 mcg Tamsulosin HCl (Flomax -) 0.4 mg PO HS [facility] Last Admin: 05/21/18 21:43 Dose: 0.4 mg - Objective Vital Signs: Vital Signs Temperature 98.2 F 05/22/18 06:00 Pulse Rate 64 05/22/18 06:00 Respiratory Rate 18 05/22/18 08:12 Blood Pressure 139/78 05/22/18 06:00 O2 Sat by Pulse Oximetry (%) 94 L 05/22/18 08:12 Constitutional: Yes: Calm Cardiovascular: Yes: Regular Rate and Rhythm Respiratory: Yes: Other (decreased breath sounds c/w COPD, no active wheezing) Gastrointestinal: Yes: Soft Edema: No Neurological: Yes: Alert, Oriented ...Motor Strength: WNL Labs: CBC, BMP 05/17/18 06:30 05/22/18 06:30 INR, PTT INR 1.55 (0.83-1.09) H 05/16/18 19:48 Selected Entries 05/20/18 05/20/18 05/21/18 18:00 22:00 02:00 Temperature Blood Pressure 132/80 129/79 150/94 05/21/18 06:00 Temperature 97.5 F L Blood Pressure 133/89 Laboratory Tests 05/22/18 06:30 Sodium 141 Potassium 4.1 BUN 35 H Creatinine 1.1 Calcium 8.6 - ....Imaging EKG: Image Reviewed Assessment/Plan IMP: Localized pericardial effusion, moderate, new Chronic COPD w/ mild exacerbation 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 Thus far, asx and no hemodynamic signs tamponade. BP remains stable, no pulsus on my exam. Repeat echo here was technically difficult w/poor acoustic windows. As patient remains stable, there is no indication for intervention for the effusion at this time. 2. Further RX COPD as per pulmonary, now on PO steroids. 3. Discharge planning.
[2018-05-22] MEDS ORDERED: levETIRAcetam 500 MG TABLET (FP) PO ONE (09:00)
[2018-05-22] MEDS ORDERED: levETIRAcetam 250 MG TABLET (FP) PO ONE (09:00)
--- NOTE | 2018-05-22 09:00 | DS ---
Physical Examination Vital Signs: Vital Signs Temperature 98.2 F 05/22/18 06:00 Pulse Rate 64 05/22/18 06:00 Respiratory Rate 18 05/22/18 08:12 Blood Pressure 139/78 05/22/18 06:00 O2 Sat by Pulse Oximetry (%) 94 L 05/22/18 08:12 Labs: CBC, BMP 05/17/18 06:30 05/22/18 06:30 Discharge Summary Reason For Visit: PERICARDIAL EFFUSION Current Active Problems Aortic aneurysm (Acute) Chronic a-fib (Acute) Ischemic cardiomyopathy (Acute) Pericardial effusion (Acute) Seizure (Acute) Condition: Stable - Instructions Referrals: Alyssa Solomon [Primary Care Provider] - - Home Medications Comprehensive Discharge Medication List: Ambulatory Orders Duloxetine HCl [Cymbalta -] 60 mg PO DAILY 11/08/17 Isosorbide Dinitrate [Isordil -] 20 mg PO BID 11/08/17 Pantoprazole Sodium [Protonix] 40 mg PO DAILY 11/08/17 Pregabalin [Lyrica] 100 mg PO TID 11/08/17 Tamsulosin HCl [Flomax] 0.4 mg PO HS 11/08/17 Albuterol 0.083% Nebulizer Suki [Ventolin 0.083% Nebulizer Soln -] 1 amp NEB Q6H PRN amp 12/10/17 Apixaban [Eliquis -] 2.5 mg PO BID #60 tablet 12/11/17 Budesonide/Formeterol Fumarate [SYMBICORT 160/4.5mcg -] 2 puff IH BID #1 inhaler 12/11/17 Metoprolol Tartrate [Lopressor -] 37.5 mg PO BID #90 tablet 12/11/17 levETIRAcetam [Keppra -] 750 mg PO BID #45 tablet 12/26/17 Atorvastatin Ca [Lipitor] 10 mg PO HS 03/25/18 Furosemide [Lasix] 20 mg PO DAILY 03/25/18 Magnesium Oxide 400 mg PO DAILY #4 tablet MDD 1 03/28/18 Potassium Chloride 20 meq PO DAILY #3 packet 03/28/18 Prednisone 10 mg PO DAILY #21 tablet 05/22/18 Roflumilast [Daliresp -] 500 mcg PO DAILY #30 tablet 05/22/18
[2018-05-22] MEDS: FUROSEMIDE 20 MG TABLET (FP) PO SCH (09:12)
[2018-05-22] MEDS: ISOSORBIDE DINITRATE 20 MG TABLET (FP) PO SCH (09:13)
[2018-05-22] MEDS: PANTOPRAZOLE 40 MG TABLET (FP) PO SCH (09:13)
[2018-05-22] MEDS: MAGNESIUM OXIDE 400 MG TABLET (FP) PO SCH (09:13)
[2018-05-22] MEDS: APIXABAN 2.5 MG TABLET PO SCH (09:13)
[2018-05-22] MEDS: METOPROLOL TARTRATE 25 MG TABLET (FP) PO SCH (09:13)
[2018-05-22] MEDS: DULoxetine HCL 30 MG CAPSULE.DR (FP) PO SCH (09:13)
[2018-05-22] MEDS ORDERED: PT OWN MED DRAWER 7, Y5N ONE (09:21)
[2018-05-22] MEDS: ROFLUMILAST 500 MCG TABLET PO SCH (09:21)
[2018-05-22] MEDS: BUDESONIDE/FORMETEROL FUMARATE 160/4.5 mcg INHALER IH SCH (09:23)
[2018-05-22] MEDS ORDERED: predniSONE 20 MG TABLET (UD) PO SCH (10:00)
--- NOTE | 2018-05-22 10:39 | PN ---
Progress Note, Physician History of Present Illness: PULMONARY ALERT,FEELING BETTER,,COMFORTABLE,SOB IMPROVED,LESS COUGH - Current Medication List Current Medications: Active Medications Albuterol Sulfate (Ventolin 0.083% Nebulizer Soln -) 1 amp NEB Q1H PRN PRN Reason: SHORT OF BREATH/WHEEZING Albuterol/Ipratropium (Duoneb -) 1 amp NEB RQ4H [facility] Last Admin: 05/22/18 07:24 Dose: Not Given Apixaban (Eliquis -) 2.5 mg PO BID [facility] Last Admin: 05/22/18 09:13 Dose: 2.5 mg Atorvastatin Calcium (Lipitor -) 40 mg PO HS [facility] Last Admin: 05/21/18 21:43 Dose: 40 mg Budesonide/Formoterol Fumarate (Symbicort 160/4.5mcg -) 2 puff IH BID [facility] Last Admin: 05/22/18 09:23 Dose: 2 puff Duloxetine HCl (Cymbalta -) 60 mg PO DAILY [facility] Last Admin: 05/22/18 09:13 Dose: 60 mg Furosemide (Lasix -) 20 mg PO DAILY [facility] Last Admin: 05/22/18 09:12 Dose: 20 mg Guaifenesin/Codeine Phosphate (Robitussin Ac -) 5 ml PO Q8H PRN PRN Reason: COUGH Last Admin: 05/21/18 21:46 Dose: 5 ml Isosorbide Dinitrate (Isordil -) 20 mg PO BIDISORDIL [facility] Last Admin: 05/22/18 09:13 Dose: 20 mg Levetiracetam 500 mg/ (Levetiracetam 250 mg) 750 mg PO BID [facility] Last Admin: 05/22/18 09:12 Dose: 750 mg Magnesium Oxide (Mag-Ox -) 400 mg PO DAILY [facility] Last Admin: 05/22/18 09:13 Dose: 400 mg Metoprolol Tartrate (Lopressor -) 37.5 mg PO BID [facility] Last Admin: 05/22/18 09:13 Dose: 37.5 mg Pantoprazole Sodium (Protonix -) 40 mg PO DAILY [facility] Last Admin: 05/22/18 09:13 Dose: 40 mg Prednisone (Deltasone -) 40 mg PO DAILY [facility] Last Admin: 05/22/18 09:13 Dose: 40 mg Pregabalin (Lyrica -) 100 mg PO TID [facility] Last Admin: 05/22/18 05:57 Dose: 100 mg Roflumilast (Daliresp -) 500 mcg PO DAILY [facility] Last Admin: 05/22/18 09:21 Dose: 500 mcg Tamsulosin HCl (Flomax -) 0.4 mg PO HS [facility] Last Admin: 05/21/18 21:43 Dose: 0.4 mg - Objective Vital Signs: Vital Signs Temperature 98.2 F 05/22/18 06:00 Pulse Rate 64 05/22/18 06:00 Respiratory Rate 18 05/22/18 08:12 Blood Pressure 139/78 05/22/18 06:00 O2 Sat by Pulse Oximetry (%) 94 L 05/22/18 08:12 Constitutional: Yes: Well Nourished, Calm Eyes: Yes: WNL HENT: Yes: WNL Neck: Yes: WNL Cardiovascular: Yes: Pulse Irregular, S1, S2 Respiratory: Yes: Rales (FEW SCATTERED CRACKLES) Gastrointestinal: Yes: Normal Bowel Sounds, Soft Extremities: Yes: WNL Edema: No Labs: 05/22/18 06:30 INR, PTT Assessment/Plan Assessment/Plan LOCULATED PERICARDIAL EFFUSION COPD EXACERBATION IMPROVED COPD WITH CHRONIC HYPOXEMIC RESP FAILURE ON HOME O2 AFIB ANXIETY ASHD CHF INHALED BRONCHODILATORS PREDNISONE 40 MG DAILY WITH TAPER O2 SUPPLEMENTATION DALIRESP MONITOR O2 SATS DR JEFFERSON Problem List - Problems (1) Pericardial effusion Code(s): I31.3 - PERICARDIAL EFFUSION (NONINFLAMMATORY) (2) Anxiety Code(s): F41.9 - ANXIETY DISORDER, UNSPECIFIED (3) Atrial fib/flutter, transient Code(s): [id number] - (4) CAD (coronary artery disease) Code(s): I25.10 - ATHSCL HEART DISEASE OF [place] CORONARY ARTERY W/O ANG PCTRS Qualifiers: Coronary Disease-Associated Artery/Lesion type: false pass artery Associated angina: with stable angina (5) CHF (congestive heart failure) Code(s): I50.9 - HEART FAILURE, UNSPECIFIED (6) COPD (chronic obstructive pulmonary disease) Code(s): J44.9 - CHRONIC OBSTRUCTIVE PULMONARY DISEASE, UNSPECIFIED Qualifiers: COPD type: COPD with acute exacerbation Qualified Code(s): J44.1 - Chronic obstructive pulmonary disease with (acute) exacerbation (7) Chronic respiratory failure with hypoxia Code(s): J96.11 - CHRONIC RESPIRATORY FAILURE WITH HYPOXIA (8) Thoracic aortic aneurysm Code(s): I71.2 - THORACIC AORTIC ANEURYSM, WITHOUT RUPTURE (9) Weakness Code(s): R53.1 - WEAKNESS (10) Abdominal aortic aneurysm Code(s): I71.4 - ABDOMINAL AORTIC ANEURYSM, WITHOUT RUPTURE Qualifiers: Presence of rupture: without rupture Qualified Code(s): I71.4 - Abdominal aortic aneurysm, without rupture (11) BPH (benign prostatic hypertrophy) Code(s): N40.0 - BENIGN PROSTATIC HYPERPLASIA WITHOUT LOWER URINRY TRACT SYMP (12) CAD (coronary artery disease) Code(s): I25.10 - ATHSCL HEART DISEASE OF [place] CORONARY ARTERY W/O ANG PCTRS Qualifiers: Coronary Disease-Associated Artery/Lesion type: false pass artery (13) History of permanent cardiac pacemaker placement Code(s): Z95.0 - PRESENCE OF CARDIAC PACEMAKER (14) Hx of CABG Code(s): Z95.1 - PRESENCE OF AORTOCORONARY BYPASS GRAFT
[2018-05-22 11:00] VITALS: BP 138/72; PULSE 68; TEMP 97.8
== END 2018-05-22 11:59 | disposition home or self-care (01) | DRG 315 ==
LOC: JER 18:26 → INTOOBSV 20:14 → JERBED 20:14 → J4S 05-17 02:26 → OBSVTOIN 05-19 10:18
PROVIDERS: ADMIT Family Medicine; ATTEND Family Medicine
DX: I31.3 Pericardial effusion (noninflammatory) (principal); J96.11 Chronic respiratory failure with hypoxia; I48.92 Unspecified atrial flutter; J44.1 Chronic obstructive pulmonary disease with (acute) exacerbation; I48.2 Chronic atrial fibrillation; I25.10 Atherosclerotic heart disease of native coronary artery without angina pectoris; I25.5 Ischemic cardiomyopathy; I71.4 Abdominal aortic aneurysm, without rupture; N40.0 Benign prostatic hyperplasia without lower urinary tract symptoms; I73.9 Peripheral vascular disease, unspecified; F41.9 Anxiety disorder, unspecified; I71.2 Thoracic aortic aneurysm, without rupture; E78.5 Hyperlipidemia, unspecified; G40.909 Epilepsy, unspecified, not intractable, without status epilepticus; R53.1 Weakness; E87.5 Hyperkalemia; Z99.81 Dependence on supplemental oxygen; Z95.5 Presence of coronary angioplasty implant and graft; Z95.1 Presence of aortocoronary bypass graft; I69.320 Aphasia following cerebral infarction; Z95.0 Presence of cardiac pacemaker
CPT/HCPCS: 36415; 36600; 71045-TC-FY; 80048; 80053; 80061; 80177; 81003; 81015; 82550; 82803; 83721; 83880; 84443; 84484; 85025; 85027; 85610; 86850; 86900; 86901; 93005; 93010; 93306-TC; 94640; 97116-GP; 97162-GP; 99283-25; G0378

== ENCOUNTER 2018-05-29 09:16 | Inpatient (IN) | payer OTHER ==
[2018-05-29] MEDS ORDERED: AMIODARONE HCL 150 MG/3 ML VIAL ONE ×2 (09:35→09:45)
[2018-05-29] MEDS ORDERED: SODIUM CHLORIDE 1,000 ML IV STA ×2 (09:37→10:23)
--- NOTE | 2018-05-29 09:38 | PDOC ---
Attending Attestation - Resident Resident Name: Flo Garcia - HPI HPI: 05/29/18 10:24 Pt presents to the ED complaining of the acute onset of CP and palpitations. Pt has an extensive history as described in resident note, with prior history of a fib with resynchronizing pacemaker and non sustained VT. Found to have a wide complex tachycardia by EMS, started on amio drip. On arrival to the ED, patient reported that chest pain was gone. However, he remained in a wide complex tachycardia with HR in the 140s. - Physicial Exam PE: 05/29/18 10:27 Agree with resident exam. Pt is alert and oriented and appears mildly uncomfortable. He is answering questions, although he is hard to understand given his chronic dysarthria. CV: irregular, tachycardic. Abd: soft, non tender, non distended. Ext: no edema. - Critical Care Time Total Critical Care Time: 45 Critical Care Statement: The care of this patient involved high complexity decision making to prevent further life threatening deterioration of the patient 's condition and/or to evaluate & treat vital organ system(s) failure or risk of failure. - Medical Decision Making 05/29/18 10:29 Pt presents to the ED complaining of CP and palpitations. Case discussed with Dr. Hines, who has come to the bedside to see the patient. Dr. Hines believes that the tachycardia is secondary to a fib. A total of 300 mg of amiodarone was pushed at the direction of franescone, with improvement in the HR to 89. SBP remains low despite gentle hydration in the 80s, but patient is mentating well. Pacer interrogated by ED nurses, awaiting report from [employer]. HR:tachycardia may be secondary to lack of mode switching by pacemaker. Rate greatly improved on Amiodarone drip. Will investigate for secondary causes of tachycardia, including anemia, sepsis and electrolyte disorders. Chest pain: may be rate related (patient is chronically on imdur.) Will send CE to investigate for ACS hypotension: likely secondary to amiodarone. Improving with gentle hydration.
[2018-05-29] MEDS ORDERED: AMIODARONE IN DEXTROSE,ISO-OSM 360 MG/200 ML BAG IVPB SCH ×2 (09:45→09:51)
--- NOTE | 2018-05-29 09:54 | PDOC ---
History of Present Illness - General Chief Complaint: Chest Pain Stated Complaint: CHEST PAIN Time Seen by Provider: 05/29/18 09:31 - History of Present Illness Initial Comments: 05/29/18 10:03 77 yo M with h/o CAD, chronic CVA (2011) COPD, ischemic cardiomyopathy c/p INTERPRETER AND TRANSLATOR-p , paroxysmal A-fib ( on Eliquis) who p/w diffuse chest pain, SOB, lightheadedness. Patient with baseline dysarthria 2/2 CVA. Patient spouse at bedside to assist in report. Reports patient with complaint of diffuse chest pain/discomfort, lightheadedness, and SOB acutely this AM while at rest. No identifiable alleviators or triggers. EMS noted patient with abnml ventricular paced rhythm, and tachycardia to 140's. Patient started on Amiodarone 150 mg en route to ED. Compliant with daily Metoprolol 37.5 BID. No home O2 requirements. Patient denies BORJAS, vision change, palpitations, cough, wheezing, orthopena, PND , leg swelling/pain, N/V, F,C, urinary complaints, hematuria, BPR, abdominal pain, diarrhea, constipation, weakness, sensory changes. PMHx: as noted above ROS: as noted Allergies: NKDA PMD: Dr. Solomon Past History - Past Medical History Allergies/Adverse Reactions: Allergies Allergy/AdvReac Type Severity Reaction Status Date / Time No Known Allergies Allergy Verified 03/25/18 09:49 Home Medications: Ambulatory Orders Duloxetine HCl [Cymbalta -] 60 mg PO DAILY 11/08/17 Isosorbide Dinitrate [Isordil -] 20 mg PO BID 11/08/17 Pantoprazole Sodium [Protonix] 40 mg PO DAILY 11/08/17 Pregabalin [Lyrica] 100 mg PO TID 11/08/17 Tamsulosin HCl [Flomax] 0.4 mg PO HS 11/08/17 Albuterol 0.083% Nebulizer Suki [Ventolin 0.083% Nebulizer Soln -] 1 amp NEB Q6H PRN amp 12/10/17 Apixaban [Eliquis -] 2.5 mg PO BID #60 tablet 12/11/17 Budesonide/Formeterol Fumarate [SYMBICORT 160/4.5mcg -] 2 puff IH BID #1 inhaler 12/11/17 Metoprolol Tartrate [Lopressor -] 37.5 mg PO BID #90 tablet 12/11/17 levETIRAcetam [Keppra -] 750 mg PO BID #45 tablet 12/26/17 Atorvastatin Ca [Lipitor] 10 mg PO HS 03/25/18 Furosemide [Lasix] 20 mg PO DAILY 03/25/18 Prednisone 10 mg PO DAILY #21 tablet 05/22/18 Roflumilast [Daliresp -] 500 mcg PO DAILY #30 tablet 05/22/18 Ferrous Sulfate 325 mg PO DAILY 05/29/18 Anemia: No Asthma: No Cancer: No Cardiac Disorders: Yes (STENTS 2000/STENT IN 2015) CVA: Yes (01/23/12/DURING TRIPLE AA REPAIR) COPD: Yes CHF: No Dementia: No (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) Diabetes: No GI Disorders: No Disorders: Yes (BPH) HTN: Yes Hypercholesterolemia: Yes Liver Disease: No Seizures: Yes Thyroid Disease: No - Surgical History Abdominal Surgery: Yes (S/P AAA) Appendectomy: No Cardiac Surgery: Yes (BYPASS 2013, PPM/ AAA REPAIR/2011) Cholecystectomy: No Lung Surgery: No Neurologic Surgery: No Orthopedic Surgery: No - Immunization History Immunization Up to Date: Yes - Suicide/Smoking/Psychosocial Hx Smoking History: Former smoker Have you smoked in the past 12 months: No If you are a former smoker, when did you quit?: 2008 Cigars Per Day: 0 Information on smoking cessation initiated: No Hx Alcohol Use: No Drug/Substance Use Hx: No Substance Use Type: None Hx Substance Use Treatment: No Review of Systems - Review of Systems Comments:: 05/29/18 10:15 GENERAL/CONSTITUTIONAL: No fever or chills. No weakness. HEAD, EYES, EARS, NOSE AND THROAT: No change in vision. No ear pain or discharge. No sore throat. CARDIOVASCULAR: +chest pain and shortness of breath RESPIRATORY: No cough, wheezing, or hemoptysis. GASTROINTESTINAL: No nausea, vomiting, diarrhea or constipation. GENITOURINARY: No dysuria, frequency, or change in urination. MUSCULOSKELETAL: No joint or muscle swelling or pain. No neck or back pain. SKIN: No rash NEUROLOGIC: + Lightheadedness. No headache, vertigo, loss of consciousness, or change in strength/sensation. ENDOCRINE: No increased thirst. No abnormal weight change HEMATOLOGIC/LYMPHATIC: No anemia, easy bleeding, or history of blood clots. ALLERGIC/IMMUNOLOGIC: No hives or skin allergy. \ *Physical Exam - Vital Signs Last Vital Signs Temp Pulse Resp BP Pulse Ox 97.4 F L 136 H 20 85/58 L 92 L 05/29/18 09:20 05/29/18 09:20 05/29/18 09:20 05/29/18 09:20 05/29/18 09:20 - Physical Exam Comments: 05/29/18 10:15 GENERAL: Awake, alert, and fully oriented, in no acute distress HEAD: No signs of trauma, normocephalic, atraumatic EYES: PERRLA, EOMI, sclera anicteric, conjunctiva clear ENT: Auricles normal inspection, hearing grossly normal, nares patent, oropharynx clear without exudates. Moist mucosa NECK: Normal ROM, supple, no lymphadenopathy, JVD, or masses LUNGS: No distress, speaks full sentences, clear to auscultation bilaterally HEART: Iregular rate and rhythm. normal S1 and S2, no murmurs, rubs or gallops , peripheral pulses normal and equal bilaterally. ABDOMEN: Soft, nontender, normoactive bowel sounds. No guarding, no rebound. No masses EXTREMITIES : Normal inspection, Normal range of motion, no edema. No clubbing or cyanosis. NEUROLOGICAL: Cranial nerves II through XII grossly intact. Normal speech, normal gait, no focal sensorimotor deficits SKIN: Warm, Dry, normal turgor, no rashes or lesions noted Moderate Sedation - Procedure Monitoring Vital Signs: Procedure Monitoring Vital Signs Temperature 97.4 F L 05/29/18 09:20 Pulse Rate 136 H 05/29/18 09:20 Respiratory Rate 20 05/29/18 09:20 Blood Pressure 85/58 L 05/29/18 09:20 O2 Sat by Pulse Oximetry (%) 92 L 05/29/18 09:20 ED Treatment Course - LABORATORY CBC & Chemistry Diagram: 05/29/18 09:40 05/29/18 09:40 - RADIOLOGY Radiology Studies Ordered: Category Date Time Status CXRPORT [CHEST X-RAY PORTABLE*] [RAD] Stat Radiology 05/29/18 09:36 Ordered Medical Decision Making - Medical Decision Making 05/29/18 09:52 77 yo M with h/o CAD, chronic CVA (2011) COPD, ischemic cardiomyopathy c/p INTERPRETER AND TRANSLATOR-p , paroxysmal A-fib ( on Eliquis) who p/w diffuse chest pain, SOB, lightheadedness. Persistently hypotensive 85/58, HR 136, 92 % O2 RA. Bedside cardiac U/S with trace pericardial effusion, absent evidence of tamponade. ACS/ CT r/o. Will assess for cardiac dysarrythmias, hypoglycemia, electrolyte abnml, metabolic and toxic derangements, acid-base disturbances, infection. Will provide adequate rate control, fluid resuscitation. Dr. Solomon PMD admits to Dr. Escamilla. ED Course: Amiodarone 150 mg, Amidoarone gtt, Tylenol 1000 mg, NS 500 cc 05/29/18 09:52 Contacted [id number] [phone] and requested device interrogation. Technicians were paged to come to ED. 05/29/18 10:13 [address] in ED [facility] and reports faxed to [phone]/[facility] 05/29/18 10:37 EKG: A-fib with ventricular paced rhythm, and wide complex qrs complexes. LAD, LBBB. patient seen and evaluated by Dr. Dixon. Rhythm is likely A-fib with RvR. Patient requires device interrogation Per [employer] patient biventricular triggered with absent device malfunction 05/29/18 10:44 WBC: 13.7 INR 1.19 05/29/18 11:42 BUN/Cr: 25/1.4 BNP: 2238 Trop: Neg 05/29/18 11:[address] Mathis answering service. Tera Biswas covering. 05/29/18 11:53 BP improved to 90/70, HR 70-92 05/29/18 12:17 Dr. Martinez covering for Dr. Escamilla. 05/29/18 12:[address] Cassie Martinez. Admitted to tele. *DC/Admit/Observation/Transfer Diagnosis at time of Disposition: Paroxysmal atrial fibrillation, Chest pain at rest - Discharge Dispostion Decision to Admit order: Yes - Referrals Referrals: Alyssa Solomon [Primary Care Provider] - - Patient Instructions - Post Discharge Activity
[2018-05-29 09:57] LABS: BASO % 0.4 % (0-2.0); EOS % 0.9 % (0-4.5); HEMATOCRIT 47.3 % (35.4-49); HEMOGLOBIN 15.3 GM/dL (11.7-16.9); LYMPH % 8.9 % (8-40); MCHC 32.3 g/dl (32.0-35.9); MEAN CELL VOLUME 86.6 fl (80-96); MEAN PLT VOLUME 9.5 fl (7.5-11.1); MONO % 6.4 % (3.8-10.2); NEUT % 83.4 % (42.8-82.8); PLATELET COUNT 199 K/MM3 (134-434); RBC 5.46 M/mm3 (4.00-5.60); RDW 16.9 % (11.9-15.9); WHITE BLOOD COUNT 13.7 K/mm3 (4.0-10.0)
--- NOTE | 2018-05-29 10:00 | PN ---
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 Review of rhythm showed BENOIT, possible failure of PPM to mode switch. Was given Amio 150mg IV bolus x 2 with slowing of rate to 80s and resolution of chest pain. Denies SOB above baseline. No fevers, chills cough. A bedside portable echo was performed and showed a trace pericardial effusion with no evidence of tamponade. - Current Medication List Current Medications: Active Medications Sodium Chloride (Normal Saline -) 1,000 mls @ 1,000 mls/hr IV ASDIR STA Stop: 05/29/18 10:36 Amiodarone HCl/Dextrose (Nexterone 360 Mg/200 Ml Bag) 360 mg in 200 mls @ 33.333 mls/hr IVPB ASDIR DIANNE; Protocol - Objective Vital Signs: Vital Signs Temperature 97.4 F L 05/29/18 09:20 Pulse Rate 136 H 05/29/18 09:20 Respiratory Rate 20 05/29/18 09:20 Blood Pressure 85/58 L 05/29/18 09:20 O2 Sat by Pulse Oximetry (%) 92 L 05/29/18 09:20 Constitutional: Yes: No Distress Eyes: Yes: Conjunctiva Clear Cardiovascular: Yes: Regular Rate and Rhythm (now paced) Respiratory: Yes: Other (decreased breath sounds bilaterally, no active wheezing. No rales.) Gastrointestinal: Yes: Soft Edema: Yes Edema: LLE: 1+, RLE: 1+ Neurological: Yes: Alert, Oriented Labs: Labs are pending. - ....Imaging EKG: Image Reviewed Problem List - Problems (1) Wide-complex tachycardia Code(s): I47.2 - VENTRICULAR TACHYCARDIA (2) Rapid atrial fibrillation Code(s): I48.91 - UNSPECIFIED ATRIAL FIBRILLATION (3) CAD (coronary artery disease) Code(s): I25.10 - ATHSCL HEART DISEASE OF [place] CORONARY ARTERY W/O ANG PCTRS Qualifiers: Coronary Disease-Associated Artery/Lesion type: [place] artery (4) Ischemic cardiomyopathy Code(s): I25.5 - ISCHEMIC CARDIOMYOPATHY (5) Pacemaker Code(s): Z95.0 - PRESENCE OF CARDIAC PACEMAKER (6) Biventricular cardiac pacemaker malfunction Code(s): T82.111A - BREAKDOWN OF CARDIAC PULSE GENERATOR (BATTERY), INIT Qualifiers: Encounter type: initial encounter Qualified Code(s): T82.111A - Breakdown ( mechanical) of cardiac pulse generator (battery), initial encounter (7) COPD (chronic obstructive pulmonary disease) Code(s): J44.9 - CHRONIC OBSTRUCTIVE PULMONARY DISEASE, UNSPECIFIED Qualifiers: COPD type: chronic bronchitis (8) Pericardial effusion Code(s): I31.3 - PERICARDIAL EFFUSION (NONINFLAMMATORY) (9) Thoracic aortic aneurysm Code(s): I71.2 - THORACIC AORTIC ANEURYSM, WITHOUT RUPTURE (10) Peripheral artery disease Code(s): I73.9 - PERIPHERAL VASCULAR DISEASE, UNSPECIFIED Assessment/Plan PMH: Atrial fibrillation w/ rapid ventricular response with associated hypotension Possible failure to mode switch of PPM Localized pericardial effusion, without tamponade Chronic COPD w/ mild exacerbation Ischemic CM c/p RADIO COMMUNICATIONS MECHANICIAN-P PAF on AC Multiple aneurysms, 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 Pacemaker interrogation: Failure to mode switch? ([place] [facility]) 2. To continue Amio load 1mg/min x 6 hours then decrease to 0.5mg/min for next 18 hours 3. Resume home cardiac meds including Eliquis 4. Telemetry 5. Check TSH, electrolytes: Keep K+ and Mg2+ normalized. 6. Decision re. long-term use/need for amio pending PPM interrogation and clinical course. Will follow.
[2018-05-29] MEDS ORDERED: AMIODARONE HCL 150 MG/3 ML VIAL IVPUSH ONE (10:13)
[2018-05-29] MEDS ORDERED: SODIUM CHLORIDE 1,000 ML IV SCH (10:15)
[2018-05-29] MEDS: APIXABAN 2.5 MG TABLET PO SCH ×2 (10:21→22:52)
[2018-05-29 10:22] LABS: N-TERMINAL BNP 2238.8 pg/ml (5-450)
[2018-05-29] MEDS ORDERED: ACETAMINOPHEN 1000 MG/100 ML VIAL (NON FORMULARY) IVPB ONE (10:24)
[2018-05-29] MEDS ORDERED: ACETAMINOPHEN INJECTION 100 ML IVPB ONE (10:33)
[2018-05-29 10:43] LABS: INR 1.19 (0.83-1.09); PROTHROMBIN TIME (PATIENT) 14.1 SEC (9.7-13.0)
--- NOTE | 2018-05-29 11:29 | HP ---
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 Patient with baseline dysarthria 2/2 CVA. Patient spouse at bedside to assist in report. Reports patient with complaint of diffuse chest pain/discomfort, lightheadedness, and SOB acutely this AM while at rest. No identifiable alleviators or triggers. EMS noted patient with abnormal ventricular paced rhythm, and tachycardia to 140's. Patient started on Amiodarone 150 mg en route to ED. Compliant with daily Metoprolol 37.5 BID. No home O2 requirements. per patient he got up in morning took his morning meds and then sat down and a little while later started complaining of chest discomfort , she also claims he has not been eaten much at home for last few days.she said that yesterday he went for EEG and then went out to eat and didnot eat much of his hamburger normally he finished his burger. 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 No: Renal Failure Musculoskeletal: Yes: Osteoarthritis - Past Surgical History Past Surgical History: Yes: AAA Repair, Permanent Pacemaker - Smoking History Smoking history: Former smoker Have you smoked in the past 12 months: No If you are a former smoker, when did you quit?: 2007 - Alcohol/Substance Use Hx Alcohol Use: No History of Substance Use: reports: None - Social History ADL: Family Assistance History of Recent Travel: No Home Medications - Allergies Allergies/Adverse Reactions: Allergies Allergy/AdvReac Type Severity Reaction Status Date / Time No Known Allergies Allergy Verified 03/25/18 09:49 - Home Medications Home Medications: Ambulatory Orders Duloxetine HCl [Cymbalta -] 60 mg PO DAILY 11/08/17 Isosorbide Dinitrate [Isordil -] 20 mg PO BID 11/08/17 Pantoprazole Sodium [Protonix] 40 mg PO DAILY 11/08/17 Pregabalin [Lyrica] 100 mg PO TID 11/08/17 Tamsulosin HCl [Flomax] 0.4 mg PO HS 11/08/17 Albuterol 0.083% Nebulizer Suki [Ventolin 0.083% Nebulizer Soln -] 1 amp NEB Q6H PRN amp 12/10/17 Apixaban [Eliquis -] 2.5 mg PO BID #60 tablet 12/11/17 Budesonide/Formeterol Fumarate [SYMBICORT 160/4.5mcg -] 2 puff IH BID #1 inhaler 12/11/17 Metoprolol Tartrate [Lopressor -] 37.5 mg PO BID #90 tablet 12/11/17 levETIRAcetam [Keppra -] 750 mg PO BID #45 tablet 12/26/17 Atorvastatin Ca [Lipitor] 10 mg PO HS 03/25/18 Furosemide [Lasix] 20 mg PO DAILY 03/25/18 Prednisone 10 mg PO DAILY #21 tablet 05/22/18 Roflumilast [Daliresp -] 500 mcg PO DAILY #30 tablet 05/22/18 Ferrous Sulfate 325 mg PO DAILY 05/29/18 Review of Systems - Review of Systems Constitutional: reports: Other (tired) Cardiovascular: reports: No Symptoms Respiratory: reports: No Symptoms Gastrointestinal: reports: No Symptoms Physical Examination Vital Signs: Vital Signs Temperature 97.4 F L 05/29/18 09:20 Pulse Rate 92 H 05/29/18 11:02 Respiratory Rate 20 05/29/18 11:02 Blood Pressure 98/70 05/29/18 11:02 O2 Sat by Pulse Oximetry (%) 94 L 05/29/18 11:02 Constitutional: Yes: Calm, Thin Cardiovascular: Yes: Regular Rate and Rhythm, S1, S2 Respiratory: Yes: Other (decreased breath sounds) Gastrointestinal: Yes: Normal Bowel Sounds, Soft Edema: No Neurological: Yes: Alert, Oriented (to name and place) Labs: CBC, BMP 05/29/18 09:40 Imaging - Results Chest X-ray: Report Reviewed (no active pulmonary disease no pleural effusion) Problem List - Problems (1) Rapid atrial fibrillation Assessment/Plan: iv amiodarone hold metoprolol and lasix eliquis echo done in ER cardiology on board iv fluids for now renal function slightly elevated monitor labs cxr clear no rales on exam will trend bnp telemetry 4 west will trend wbc count Code(s): I48.91 - UNSPECIFIED ATRIAL FIBRILLATION (2) COPD (chronic obstructive pulmonary disease) Assessment/Plan: symbicort daliresp pulm consult oxygen Code(s): J44.9 - CHRONIC OBSTRUCTIVE PULMONARY DISEASE, UNSPECIFIED Qualifiers: COPD type: chronic bronchitis (3) Pacemaker Assessment/Plan: pacemaker to get interrogated ( [employer] [place]) Code(s): Z95.0 - PRESENCE OF CARDIAC PACEMAKER (4) BPH (benign prostatic hypertrophy) Assessment/Plan: flomax Code(s): N40.0 - BENIGN PROSTATIC HYPERPLASIA WITHOUT LOWER URINRY TRACT SYMP (5) CVA (cerebral vascular accident) Assessment/Plan: history of cva with residual seizure disorder keppra level keppra 750mg po bid neurology celiacknaveen Code(s): I63.9 - CEREBRAL INFARCTION, UNSPECIFIED
[2018-05-29 11:33] LABS: ALBUMIN 3.2 g/dl (3.4-5.0); ALK PHOS 50 U/L (45-117); ANION GAP 8 MMOL/L (8-16); BILIRUBIN,TOTAL 0.8 mg/dL (0.2-1); BLOOD UREA NITROGEN 25 mg/dL (7-18); CALCIUM 8.9 mg/dL (8.5-10.1); CHLORIDE 104 mmol/L (98-107); CO2 30 mmol/L (21-32); CREATININE 1.4 mg/dL (0.55-1.3); GLUCOSE,RANDOM 85 mg/dL (74-106); POTASSIUM 4.2 mmol/L (3.5-5.1); SGOT/AST 14 U/L (15-37); SGPT/ALT 22 U/L (13-61); SODIUM 141 mmol/L (136-145); TOT PROT 6.2 g/dl (6.4-8.2)
[2018-05-29 14:16] LABS: URINE APPEARANCE CLEAR; URINE BILIRUBIN NEGATIVE (<2.0 mg/dL); URINE COLOR LTYELLOW; URINE GLUCOSE (UA) NEGATIVE (NEGATIVE); URINE KETONE NEGATIVE (NEGATIVE); URINE LEUK ESTERASE NEGATIVE (NEGATIVE); URINE NITRITE NEGATIVE (NEGATIVE); URINE PROTEIN NEGATIVE (NEGATIVE); URINE UROBILINOGEN NEGATIVE mg/dL (0.2-1.0)
--- NOTE | 2018-05-29 15:21 | PN ---
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 Normal device function. AF/AT burden had been < 1% previously, this episode is a new sustained event. Optimal rate control/ arrhythmia suppression is treatment to maintain NSR and biV pacing. Problem List - Problems (1) Wide-complex tachycardia Code(s): I47.2 - VENTRICULAR TACHYCARDIA (2) Rapid atrial fibrillation Code(s): I48.91 - UNSPECIFIED ATRIAL FIBRILLATION (3) CAD (coronary artery disease) Code(s): I25.10 - ATHSCL HEART DISEASE OF [place] CORONARY ARTERY W/O ANG PCTRS Qualifiers: Coronary Disease-Associated Artery/Lesion type: [place] artery (4) Ischemic cardiomyopathy Code(s): I25.5 - ISCHEMIC CARDIOMYOPATHY (5) Pacemaker Code(s): Z95.0 - PRESENCE OF CARDIAC PACEMAKER (6) Biventricular cardiac pacemaker malfunction Code(s): T82.111A - BREAKDOWN OF CARDIAC PULSE GENERATOR (BATTERY), INIT Qualifiers: Encounter type: initial encounter Qualified Code(s): T82.111A - Breakdown ( mechanical) of cardiac pulse generator (battery), initial encounter (7) COPD (chronic obstructive pulmonary disease) Code(s): J44.9 - CHRONIC OBSTRUCTIVE PULMONARY DISEASE, UNSPECIFIED Qualifiers: COPD type: chronic bronchitis (8) Pericardial effusion Code(s): I31.3 - PERICARDIAL EFFUSION (NONINFLAMMATORY) (9) Thoracic aortic aneurysm Code(s): I71.2 - THORACIC AORTIC ANEURYSM, WITHOUT RUPTURE (10) Peripheral artery disease Code(s): I73.9 - PERIPHERAL VASCULAR DISEASE, UNSPECIFIED
[2018-05-29] MEDS ORDERED: ALBUTEROL SO4 2.5/IPRATROPIUM 0.5 INH SOL 3 ML VIAL.NEB. NEB ONE (17:33)
[2018-05-29] MEDS: AMIODARONE IN DEXTROSE,ISO-OSM 360 MG/200 ML BAG IVPB SCH (19:00)
[2018-05-29 20:14] VITALS: BMI 24.1
[2018-05-29] MEDS: ATORVASTATIN CA 10 MG TABLET (FP) PO SCH (22:52)
[2018-05-29] MEDS: TAMSULOSIN HCL 0.4 MG CAP PO SCH (22:52)
[2018-05-30] MEDS: AMIODARONE IN DEXTROSE,ISO-OSM 360 MG/200 ML BAG IVPB SCH (01:16)
[2018-05-30 06:58] LABS: BASO % 0.1 % (0-2.0); EOS % 0.9 % (0-4.5); HEMATOCRIT 42.8 % (35.4-49); HEMOGLOBIN 14.7 GM/dL (11.7-16.9); LYMPH % 11.9 % (8-40); MCH 29.7 pg (25.7-33.7); MCHC 34.3 g/dl (32.0-35.9); MEAN CELL VOLUME 86.6 fl (80-96); MEAN PLT VOLUME 9.7 fl (7.5-11.1); MONO % 7.8 % (3.8-10.2); NEUT % 79.3 % (42.8-82.8); PLATELET COUNT 150 K/MM3 (134-434); RBC 4.94 M/mm3 (4.00-5.60); RDW 16.9 % (11.9-15.9); WHITE BLOOD COUNT 9.4 K/mm3 (4.0-10.0)
[2018-05-30 08:09] LABS: ALBUMIN 2.5 g/dl (3.4-5.0); ALK PHOS 43 U/L (45-117); ANION GAP 5 MMOL/L (8-16); BILIRUBIN,TOTAL 0.4 mg/dL (0.2-1); BLOOD UREA NITROGEN 22 mg/dL (7-18); CALCIUM 7.8 mg/dL (8.5-10.1); CHLORIDE 107 mmol/L (98-107); CHOLESTEROL 143 mg/dL (50-200); CO2 30 mmol/L (21-32); CREATININE 1.2 mg/dL (0.55-1.3); GLUCOSE,RANDOM 67 mg/dL (74-106); HDL CHOLESTEROL 32 mg/dL (40-60); MAGNESIUM 2.1 mg/dL (1.8-2.4); N-TERMINAL BNP 4951.4 pg/ml (5-450); PHOSPHOROUS 2.9 mg/dL (2.5-4.9); POTASSIUM 3.8 mmol/L (3.5-5.1); SGOT/AST 10 U/L (15-37); SGPT/ALT 19 U/L (13-61); SODIUM 142 mmol/L (136-145); TOT PROT 5.1 g/dl (6.4-8.2); TRIGLYCERIDES 111 mg/dL (0-150)
--- NOTE | 2018-05-30 09:37 | PN ---
Progress Note, Physician Chief Complaint: chest pain resolved. TELE: Paced, but bursts of PAF breaking through PPM was checked, device fx is normal History of Present Illness: hypotension resolved - Current Medication List Current Medications: Active Medications Apixaban (Eliquis -) 2.5 mg PO BID [facility] Last Admin: 05/29/18 22:52 Dose: 2.5 mg Atorvastatin Calcium (Lipitor -) 10 mg PO [facility] Last Admin: 05/29/18 22:52 Dose: 10 mg Budesonide/Formoterol Fumarate (Symbicort 160/4.5mcg -) 2 puff IH BID DIANNE Amiodarone HCl/Dextrose (Nexterone 360 Mg/200 Ml Bag) 360 mg in 200 mls @ 33.333 mls/hr IVPB ASDIR [facility]; Protocol Last Admin: 05/29/18 09:55 Dose: 33.333 mls/hr Sodium Chloride (Normal Saline -) 1,000 mls @ 75 mls/hr IV ASDIR DIANNE Last Admin: 05/29/18 10:16 Dose: 75 mls/hr Amiodarone HCl/Dextrose (Nexterone 360 Mg/200 Ml Bag) 360 mg in 200 mls @ 16.667 mls/hr IVPB ASDIR [facility]; Protocol Last Admin: 05/30/18 01:16 Dose: 16.667 mls/hr Roflumilast (Daliresp -) 500 mcg PO DAILY DIANNE Tamsulosin HCl (Flomax -) 0.4 mg PO [facility] Last Admin: 05/29/18 22:52 Dose: 0.4 mg - Objective Vital Signs: Vital Signs Temperature 98.0 F 05/30/18 06:00 Pulse Rate 71 05/30/18 06:00 Respiratory Rate 20 05/30/18 06:00 Blood Pressure 120/66 05/30/18 06:00 O2 Sat by Pulse Oximetry (%) 93 L 05/29/18 21:00 Constitutional: Yes: No Distress, Calm Eyes: Yes: Conjunctiva Clear Cardiovascular: Yes: Regular Rate and Rhythm Respiratory: Yes: Other (decreased breath sounds b/l c/w his COPD) Gastrointestinal: Yes: Soft Edema: No Neurological: Yes: Alert, Oriented ...Motor Strength: WNL Labs: CBC, BMP 05/30/18 05:30 05/30/18 05:30 INR, PTT INR 1.19 (0.83-1.09) H 05/29/18 09:40 Laboratory Tests 05/29/18 05/29/18 05/30/18 09:40 09:40 05:30 WBC 9.4 Hgb 14.7 Plt Count 150 D Sodium Potassium BUN Creatinine Random Glucose Calcium Phosphorus Magnesium Creatine Kinase 34 Troponin I 0.04 B-Natriuretic Peptide Total Protein Albumin HDL Cholesterol TSH 0.82 D 05/30/18 05:30 WBC Hgb Plt Count Sodium 142 Potassium 3.8 BUN 22 H Creatinine 1.2 Random Glucose 67 L Calcium 7.8 L Phosphorus 2.9 Magnesium 2.1 Creatine Kinase 28 Troponin I 0.25 H B-Natriuretic Peptide 4951.4 H Total Protein 5.1 L Albumin 2.5 L HDL Cholesterol 32 L TSH - ....Imaging EKG: Image Reviewed Problem List - Problems (1) Wide-complex tachycardia Code(s): I47.2 - VENTRICULAR TACHYCARDIA (2) Rapid atrial fibrillation Code(s): I48.91 - UNSPECIFIED ATRIAL FIBRILLATION (3) CAD (coronary artery disease) Code(s): I25.10 - ATHSCL HEART DISEASE OF [place] CORONARY ARTERY W/O ANG PCTRS Qualifiers: Coronary Disease-Associated Artery/Lesion type: [place] artery (4) Ischemic cardiomyopathy Code(s): I25.5 - ISCHEMIC CARDIOMYOPATHY (5) Pacemaker Code(s): Z95.0 - PRESENCE OF CARDIAC PACEMAKER (6) Biventricular cardiac pacemaker malfunction Code(s): T82.111A - BREAKDOWN OF CARDIAC PULSE GENERATOR (BATTERY), INIT Qualifiers: Encounter type: initial encounter Qualified Code(s): T82.111A - Breakdown ( mechanical) of cardiac pulse generator (battery), initial encounter (7) COPD (chronic obstructive pulmonary disease) Code(s): J44.9 - CHRONIC OBSTRUCTIVE PULMONARY DISEASE, UNSPECIFIED Qualifiers: COPD type: chronic bronchitis (8) Pericardial effusion Code(s): I31.3 - PERICARDIAL EFFUSION (NONINFLAMMATORY) (9) Thoracic aortic aneurysm Code(s): I71.2 - THORACIC AORTIC ANEURYSM, WITHOUT RUPTURE (10) Peripheral artery disease Code(s): I73.9 - PERIPHERAL VASCULAR DISEASE, UNSPECIFIED Assessment/Plan PMH: Atrial fibrillation w/ rapid ventricular response with associated hypotension now resolved with rate control and hydration Localized pericardial effusion, without tamponade Chronic COPD w/ mild exacerbation Ischemic 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 Pacemaker interrogation completed, normal device function. 2. To continue Amio gtts 0.5mg/min until 11am, then will adjust PO meds. 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 Will increase his usual Toprol dose (has tolerated it previously without significant bronchospasm) . 3. To continue Eliquis 4. Telemetry 5. Keep K+ and Mg2+ normalized. 6. D/C IV fluids. Hold Lasix and Imdur Will follow.
[2018-05-30] MEDS ORDERED: PT OWN MED DRAWER 7, Y5N ONE ×2 (11:21→12:54)
[2018-05-30] MEDS ORDERED: levETIRAcetam 250 MG TABLET (FP) PO SCH (11:45)
[2018-05-30] MEDS ORDERED: levETIRAcetam 500 MG TABLET (FP) PO SCH (11:45)
--- NOTE | 2018-05-30 11:53 | PN ---
Progress Note, Physician Chief Complaint: patient is on amiodarone drip awake alert heart rate better controlled - Current Medication List Current Medications: Active Medications Apixaban (Eliquis -) 2.5 mg PO BID [facility] Last Admin: 05/29/18 22:52 Dose: 2.5 mg Atorvastatin Calcium (Lipitor -) 10 mg PO HS [facility] Last Admin: 05/29/18 22:52 Dose: 10 mg Budesonide/Formoterol Fumarate (Symbicort 160/4.5mcg -) 2 puff IH BID [facility] Duloxetine HCl (Cymbalta -) 60 mg PO 1200 DIANNE Levetiracetam (Keppra -) 500 mg PO BID DIANNE Levetiracetam (Keppra -) 250 mg PO BID [facility] Metoprolol Succinate (Toprol Xl -) 50 mg PO BID DIANNE Pregabalin (Lyrica -) 100 mg PO TID [facility] Roflumilast (Daliresp -) 500 mcg PO DAILY [facility] Tamsulosin HCl (Flomax -) 0.4 mg PO [facility] Last Admin: 05/29/18 22:52 Dose: 0.4 mg - Objective Vital Signs: Vital Signs Temperature 98.0 F 05/30/18 06:00 Pulse Rate 71 05/30/18 06:00 Respiratory Rate 20 05/30/18 06:00 Blood Pressure 120/66 05/30/18 06:00 O2 Sat by Pulse Oximetry (%) 93 L 05/29/18 21:00 Constitutional: Yes: Calm Cardiovascular: Yes: Regular Rate and Rhythm, S1, S2 Respiratory: Yes: Diminished Gastrointestinal: Yes: Normal Bowel Sounds, Soft Edema: No Neurological: Yes: Alert Labs: CBC, BMP 05/30/18 05:30 05/30/18 05:30 INR, PTT INR 1.19 (0.83-1.09) H 05/29/18 09:40 Problem List - Problems (1) Rapid atrial fibrillation Assessment/Plan: iv amiodarone for now hold metoprolol and lasix, imdur eliquis echo done in ER cardiology on board iv fluids DC renal function better after IVF monitor labs wbc count is better Code(s): I48.91 - UNSPECIFIED ATRIAL FIBRILLATION (2) COPD (chronic obstructive pulmonary disease) Assessment/Plan: symbicort daliresp pulm consult oxygen Code(s): J44.9 - CHRONIC OBSTRUCTIVE PULMONARY DISEASE, UNSPECIFIED Qualifiers: COPD type: chronic bronchitis (3) Pacemaker Assessment/Plan: pacemaker checked and is normal Code(s): Z95.0 - PRESENCE OF CARDIAC PACEMAKER (4) BPH (benign prostatic hypertrophy) Assessment/Plan: flomax Code(s): N40.0 - BENIGN PROSTATIC HYPERPLASIA WITHOUT LOWER URINRY TRACT SYMP (5) CVA (cerebral vascular accident) Assessment/Plan: history of cva with residual seizure disorder keppra level keppra 750mg po bid neurology celiacknaveen Code(s): I63.9 - CEREBRAL INFARCTION, UNSPECIFIED
[2018-05-30] MEDS ORDERED: DULoxetine HCL 30 MG CAPSULE.DR (FP) PO SCH (12:00)
[2018-05-30] MEDS ORDERED: levETIRAcetam 250 MG TABLET (FP) PO ONE ×2 (12:53→21:57)
[2018-05-30] MEDS ORDERED: levETIRAcetam 500 MG TABLET (FP) PO ONE ×2 (12:53→21:58)
[2018-05-30] MEDS: APIXABAN 2.5 MG TABLET PO SCH ×2 (12:56→23:09)
[2018-05-30] MEDS: DULoxetine HCL 30 MG CAPSULE.DR (FP) PO SCH (12:56)
[2018-05-30] MEDS: BUDESONIDE/FORMETEROL FUMARATE 160/4.5 mcg INHALER IH SCH ×2 (12:56→23:10)
--- NOTE | 2018-05-30 13:10 | PN ---
Progress Note (short form) - Note Progress Note: PULMONARY CONSULTATION DICTATED 05/30/18 IMP COPD WITH CHRONIC HYPOXEMIC RESPIRATORY FAILURE CHEST PAIN AFIB WITH RVR CARDIOMYOPATHY HYPOTENSION SECONDARY TO AFIB WITH RVR ASHD A/P CABG AAA S/P REPAIR THORACIC AORTIC ANEURYSM PERICARDIAL EFFUSION PLAN RATE CONTROL PER CARDIOLOGY O2 INHALED BRONCHODILATORS YADIEL JEFFERSON Problem List - Problems (1) Chest pain Code(s): R07.9 - CHEST PAIN, UNSPECIFIED (2) CAD (coronary artery disease) Code(s): I25.10 - ATHSCL HEART DISEASE OF [place] CORONARY ARTERY W/O ANG PCTRS Qualifiers: Coronary Disease-Associated Artery/Lesion type: [place] artery (3) Paroxysmal atrial fibrillation Code(s): I48.0 - PAROXYSMAL ATRIAL FIBRILLATION (4) Rapid atrial fibrillation Code(s): I48.91 - UNSPECIFIED ATRIAL FIBRILLATION (5) Wide-complex tachycardia Code(s): I47.2 - VENTRICULAR TACHYCARDIA (6) Aortic aneurysm Code(s): I71.9 - AORTIC ANEURYSM OF UNSPECIFIED SITE, WITHOUT RUPTURE (7) CAD (coronary artery disease) Code(s): I25.10 - ATHSCL HEART DISEASE OF [place] CORONARY ARTERY W/O ANG PCTRS Qualifiers: Coronary Disease-Associated Artery/Lesion type: [place] artery Associated angina: with stable angina (8) CHF (congestive heart failure) Code(s): I50.9 - HEART FAILURE, UNSPECIFIED (9) COPD (chronic obstructive pulmonary disease) Code(s): J44.9 - CHRONIC OBSTRUCTIVE PULMONARY DISEASE, UNSPECIFIED Qualifiers: COPD type: COPD with acute exacerbation Qualified Code(s): J44.1 - Chronic obstructive pulmonary disease with (acute) exacerbation (10) Cardiomyopathy Code(s): I42.9 - CARDIOMYOPATHY, UNSPECIFIED Qualifiers: Cardiomyopathy type: ischemic Qualified Code(s): I25.5 - Ischemic cardiomyopathy (11) Chronic a-fib Code(s): I48.2 - CHRONIC ATRIAL FIBRILLATION (12) Chronic respiratory failure with hypoxia Code(s): J96.11 - CHRONIC RESPIRATORY FAILURE WITH HYPOXIA (13) History of aortic aneurysm repair Code(s): Z98.890 - OTHER SPECIFIED POSTPROCEDURAL STATES; Z86.79 - PERSONAL HISTORY OF OTHER DISEASES OF THE CIRCULATORY SYSTEM (14) Hypotension Code(s): I95.9 - HYPOTENSION, UNSPECIFIED Qualifiers: Hypotension type: unspecified hypotension type Qualified Code(s): I95.9 - Hypotension, unspecified (15) Pericardial effusion Code(s): I31.3 - PERICARDIAL EFFUSION (NONINFLAMMATORY) (16) SOB (shortness of breath) Code(s): R06.02 - SHORTNESS OF BREATH (17) Seizure Code(s): R56.9 - UNSPECIFIED CONVULSIONS (18) Tachycardia Code(s): R00.0 - TACHYCARDIA, UNSPECIFIED (19) Thoracic aortic aneurysm Code(s): I71.2 - THORACIC AORTIC ANEURYSM, WITHOUT RUPTURE (20) Hx of CABG Code(s): Z95.1 - PRESENCE OF AORTOCORONARY BYPASS GRAFT
--- NOTE | 2018-05-30 14:29 | EKG ---
Test Reason : Blood Pressure : / mmHG Vent. Rate : 144 BPM Atrial Rate : 066 BPM P-R Int : 000 ms QRS Dur : 138 ms QT Int : 350 ms P-R-T Axes : 000 -80 116 degrees QTc Int : 541 ms ATRIAL FIBRILLATION WITH RAPID VENTRICULAR RESPONSE WITH FREQUENT ventricular-paced complexes LEFT AXIS DEVIATION LEFT BUNDLE BRANCH BLOCK ABNORMAL ECG WHEN COMPARED WITH ECG OF 16-MAY-2018 21:19, VENT. RATE HAS INCREASED BY 64 BPM Confirmed by AYSE FELIX MD ([id number]) on 05/30/2018 2:29:39 PM Referred By: Confirmed By:AYSE FELIX MD
--- NOTE | 2018-05-30 14:40 | CONS ---
DATE OF CONSULTATION: 05/30/2018 REFERRING PHYSICIAN: Jaime Barriga MD HISTORY OF PRESENT ILLNESS: The patient is a 77-year-old white male known to me from previous hospitalization and office visit, past medical history of COPD, on home O2, ischemic cardiomyopathy, history of paroxysmal atrial fibrillation, on Eliquis, chronic history of CVA, 2011, ASHD, history of pericardial effusion, history of AAA repair in 2011, history of CABG, 2013, multiple stents, mild dementia, admitted to [facility] on May 29 with chest pain, shortness of breath and lightheadedness. Patient a was lying in bed and he started developing chest pain. He denied nausea, vomiting or diaphoresis associated with it but did have shortness of breath. Patient's gave him a couple Maalox which offered no improvement at which time he presented to the emergency room. En route the patient was noted to be in an abnormal ventricular paced rhythm, tachycardic , 140s so he was started on amiodarone en route to the ER. In the emergency room he was evaluated by Dr. Hines for cardiology consultation. He was felt to have atrial fibrillation with rapid ventricular response with associated hypotension. He was continued on amiodarone drip and transferred up to the telemetry unit for further monitoring. He denies any fevers, chills, nausea, vomiting, diaphoresis. Has had occasional shortness of breath which is chronic. There is no history of DVT or PE in the past. Of note he was recently hospitalized secondary to COPD exacerbation. PAST MEDICAL HISTORY: Again includes ASHD, status post CABG, status post stents , history of localized pericardial effusion new, ischemic cardiomyopathy, PAF, on AC, multiple aneurysms, 5.1-cm thoracic aortic aneurysm and COPD, on home O2, mild dementia. CURRENT MEDICATIONS: Include Symbicort, Flomax, Eliquis, levetiracetam, Lyrica, Cymbalta, Toprol, Lipitor and Daliresp. REVIEW OF SYSTEMS: Positive mild shortness of breath causing him chest pain. No nausea. No vomiting. No abdominal pain. No lower extremity edema. PHYSICAL EXAMINATION: General: The patient is an elderly white male, well developed, awake, alert, currently in no acute distress. Vital Signs: He is afebrile, blood pressure 120/66, respiratory rate is 20, O2 saturation is 93% on 2 L. HEENT: Normocephalic, atraumatic. Neck: Supple. Heart: Irregular with S1, S2. Chest: Few bibasilar crackles. Abdomen: Soft. Bowel sounds are positive. Extremities: No cyanosis or edema. LABORATORIES: WBC is 9.4, hemoglobin 14.7, hematocrit 42.8 with a platelet count of 150,000. INR is 1.19. BUN 11, creatinine 1.2. Chest X-ray: No infiltrates and no effusions. SOCIAL HISTORY: History of tobacco use, quit in 2007. No occupational exposures. IMPRESSION: 1. Atrial fibrillation with rapid ventricular response and ventricular tachycardia with associated hypotension, resolved. 2. Advanced chronic obstructive pulmonary disease, oxygen dependent, with chronic hypoxemic respiratory failure. 3. Atherosclerotic heart disease, status post coronary artery bypass grafting, status post multiple stents. 4. History of cerebrovascular accident. 5. Multiple aneurysms, status post abdominal aortic aneurysm repair, history of 5.1-cm thoracic aneurysm. 6. Status post permanent pacemaker. 7. Seizure disorder. 8. Ischemic cardiomyopathy. 9. Pericardial effusion. PLAN: Continue amiodarone as per Cardiology. Rate control. Supplemental O2. Inhaled bronchodilators. Telemetry monitoring. Thank you. LUIS ANGEL JEFFERSON M.D. [id number] MTDD
[2018-05-30] MEDS: TAMSULOSIN HCL 0.4 MG CAP PO SCH (23:08)
[2018-05-30] MEDS: PREGABALIN 100 MG CAPSULE PO SCH ×2 (23:08→23:09)
[2018-05-30] MEDS: ATORVASTATIN CA 10 MG TABLET (FP) PO SCH (23:09)
[2018-05-31] MEDS: PREGABALIN 100 MG CAPSULE PO SCH ×3 (06:11→21:53)
[2018-05-31 07:15] LABS: BASO % 0.2 % (0-2.0); EOS % 0.6 % (0-4.5); HEMATOCRIT 42.6 % (35.4-49); HEMOGLOBIN 14.1 GM/dL (11.7-16.9); LYMPH % 7.5 % (8-40); MCH 28.6 pg (25.7-33.7); MCHC 33.1 g/dl (32.0-35.9); MEAN CELL VOLUME 86.4 fl (80-96); MEAN PLT VOLUME 9.3 fl (7.5-11.1); MONO % 7.9 % (3.8-10.2); NEUT % 83.8 % (42.8-82.8); PLATELET COUNT 151 K/MM3 (134-434); RBC 4.93 M/mm3 (4.00-5.60); RDW 17.1 % (11.9-15.9); WHITE BLOOD COUNT 9.6 K/mm3 (4.0-10.0)
[2018-05-31 07:32] LABS: ALBUMIN 2.9 g/dl (3.4-5.0); ALK PHOS 51 U/L (45-117); ANION GAP 6 MMOL/L (8-16); BILIRUBIN,TOTAL 0.8 mg/dL (0.2-1); BLOOD UREA NITROGEN 19 mg/dL (7-18); CALCIUM 8.6 mg/dL (8.5-10.1); CHLORIDE 107 mmol/L (98-107); CO2 29 mmol/L (21-32); CREATININE 1.2 mg/dL (0.55-1.3); GLUCOSE,RANDOM 71 mg/dL (74-106); POTASSIUM 4.7 mmol/L (3.5-5.1); SGOT/AST 10 U/L (15-37); SGPT/ALT 16 U/L (13-61); SODIUM 142 mmol/L (136-145); TOT PROT 5.8 g/dl (6.4-8.2)
[2018-05-31] MEDS ORDERED: levETIRAcetam 500 MG TABLET (FP) PO ONE ×2 (08:58→21:39)
[2018-05-31] MEDS ORDERED: levETIRAcetam 250 MG TABLET (FP) PO ONE ×2 (08:58→21:39)
[2018-05-31] MEDS ORDERED: PT OWN MED DRAWER 7, Y5N ONE (08:59)
--- NOTE | 2018-05-31 09:27 | PN ---
Progress Note, Physician - Current Medication List Current Medications: Active Medications Apixaban (Eliquis -) 2.5 mg PO BID [facility] Last Admin: 05/30/18 23:09 Dose: 2.5 mg Atorvastatin Calcium (Lipitor -) 10 mg PO HS [facility] Last Admin: 05/30/18 23:09 Dose: 10 mg Budesonide/Formoterol Fumarate (Symbicort 160/4.5mcg -) 2 puff IH BID [facility] Last Admin: 05/30/18 23:10 Dose: 2 puff Duloxetine HCl (Cymbalta -) 60 mg PO 1200 [facility] Last Admin: 05/30/18 12:56 Dose: 60 mg Levetiracetam 500 mg/ (Levetiracetam 250 mg) 750 mg PO BID [facility] Last Admin: 05/30/18 23:09 Dose: 750 mg Metoprolol Succinate (Toprol Xl -) 50 mg PO BID [facility] Last Admin: 05/30/18 23:09 Dose: 50 mg Pregabalin (Lyrica -) 100 mg PO TID [facility] Last Admin: 05/31/18 06:11 Dose: 100 mg Roflumilast (Daliresp -) 500 mcg PO DAILY [facility] Tamsulosin HCl (Flomax -) 0.4 mg PO HS [facility] Last Admin: 05/30/18 23:08 Dose: 0.4 mg - Objective Vital Signs: Vital Signs Temperature 98.1 F 05/31/18 06:00 Pulse Rate 68 05/31/18 06:00 Respiratory Rate 20 05/31/18 06:00 Blood Pressure 154/78 05/31/18 06:00 O2 Sat by Pulse Oximetry (%) 96 05/30/18 21:00 Eyes: Yes: WNL, Conjunctiva Clear, EOM Intact HENT: Yes: WNL, Atraumatic, Normocephalic Neck: Yes: WNL, Supple, Trachea Midline Cardiovascular: Yes: WNL, Regular Rate and Rhythm Respiratory: Yes: WNL, Regular, CTA Bilaterally Gastrointestinal: Yes: WNL, Normal Bowel Sounds Genitourinary: Yes: WNL Musculoskeletal: Yes: WNL Extremities: Yes: WNL Edema: No Integumentary: Yes: WNL Neurological: Yes: WNL, Alert, Oriented ...Motor Strength: WNL Psychiatric: Yes: WNL Labs: CBC, BMP 05/31/18 05:50 05/31/18 05:50 INR, PTT INR 1.19 (0.83-1.09) H 05/29/18 09:40 Assessment/Plan PMH: Atrial fibrillation w/ rapid ventricular response with associated hypotension Possible failure to mode switch of PPM Localized pericardial effusion, without tamponade Chronic COPD w/ mild exacerbation 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 Pacemaker interrogation: Failure to mode switch? ([employer] [employer]) 2. To continue Amio load 1mg/min x 6 hours then decrease to 0.5mg/min for next 18 hours 3. Resume home cardiac meds including Eliquis 4. Telemetry 5. Check TSH, electrolytes: Keep K+ and Mg2+ normalized. 6. Decision re. retirement use/need for amio pending PPM interrogation and clinical course. coverage for dr. aCse
[2018-05-31] MEDS: APIXABAN 2.5 MG TABLET PO SCH ×2 (09:33→21:53)
[2018-05-31] MEDS: ROFLUMILAST 500 MCG TABLET PO SCH (09:33)
[2018-05-31] MEDS: BUDESONIDE/FORMETEROL FUMARATE 160/4.5 mcg INHALER IH SCH ×2 (09:36→21:55)
--- NOTE | 2018-05-31 10:53 | PN ---
Progress Note, Physician History of Present Illness: pulmonary alert,no distress,-sob - Current Medication List Current Medications: Active Medications Apixaban (Eliquis -) 2.5 mg PO BID [facility] Last Admin: 05/31/18 09:33 Dose: 2.5 mg Atorvastatin Calcium (Lipitor -) 10 mg PO HS [facility] Last Admin: 05/30/18 23:09 Dose: 10 mg Budesonide/Formoterol Fumarate (Symbicort 160/4.5mcg -) 2 puff IH BID [facility] Last Admin: 05/31/18 09:36 Dose: 2 puff Duloxetine HCl (Cymbalta -) 60 mg PO 1200 [facility] Last Admin: 05/30/18 12:56 Dose: 60 mg Levetiracetam 500 mg/ (Levetiracetam 250 mg) 750 mg PO BID [facility] Last Admin: 05/31/18 09:33 Dose: 750 mg Metoprolol Succinate (Toprol Xl -) 50 mg PO BID [facility] Last Admin: 05/31/18 09:33 Dose: 50 mg Pregabalin (Lyrica -) 100 mg PO TID [facility] Last Admin: 05/31/18 06:11 Dose: 100 mg Roflumilast (Daliresp -) 500 mcg PO DAILY [facility] Last Admin: 05/31/18 09:33 Dose: 500 mcg Tamsulosin HCl (Flomax -) 0.4 mg PO HS [facility] Last Admin: 05/30/18 23:08 Dose: 0.4 mg - Objective Vital Signs: Vital Signs Temperature 98.1 F 05/31/18 06:00 Pulse Rate 68 05/31/18 06:00 Respiratory Rate 20 05/31/18 06:00 Blood Pressure 154/78 05/31/18 06:00 O2 Sat by Pulse Oximetry (%) 96 05/30/18 21:00 Constitutional: Yes: Well Nourished, Calm Eyes: Yes: WNL HENT: Yes: WNL Neck: Yes: WNL Cardiovascular: Yes: Pulse Irregular, S1, S2 Respiratory: Yes: Rales (few bibasilar crackles) Gastrointestinal: Yes: Normal Bowel Sounds, Soft Extremities: Yes: WNL Edema: No Labs: CBC, BMP 05/31/18 05:50 05/31/18 05:50 INR, PTT INR 1.19 (0.83-1.09) H 05/29/18 09:40 Problem List - Problems (1) Chest pain Code(s): R07.9 - CHEST PAIN, UNSPECIFIED (2) CAD (coronary artery disease) Code(s): I25.10 - ATHSCL HEART DISEASE OF [place] CORONARY ARTERY W/O ANG PCTRS Qualifiers: Coronary Disease-Associated Artery/Lesion type: [place] artery (3) Paroxysmal atrial fibrillation Code(s): I48.0 - PAROXYSMAL ATRIAL FIBRILLATION (4) Rapid atrial fibrillation Code(s): I48.91 - UNSPECIFIED ATRIAL FIBRILLATION (5) Wide-complex tachycardia Code(s): I47.2 - VENTRICULAR TACHYCARDIA (6) Aortic aneurysm Code(s): I71.9 - AORTIC ANEURYSM OF UNSPECIFIED SITE, WITHOUT RUPTURE (7) CAD (coronary artery disease) Code(s): I25.10 - ATHSCL HEART DISEASE OF [place] CORONARY ARTERY W/O ANG PCTRS Qualifiers: Coronary Disease-Associated Artery/Lesion type: [place] artery Associated angina: with stable angina (8) CHF (congestive heart failure) Code(s): I50.9 - HEART FAILURE, UNSPECIFIED (9) COPD (chronic obstructive pulmonary disease) Code(s): J44.9 - CHRONIC OBSTRUCTIVE PULMONARY DISEASE, UNSPECIFIED Qualifiers: COPD type: COPD with acute exacerbation Qualified Code(s): J44.1 - Chronic obstructive pulmonary disease with (acute) exacerbation (10) Cardiomyopathy Code(s): I42.9 - CARDIOMYOPATHY, UNSPECIFIED Qualifiers: Cardiomyopathy type: ischemic Qualified Code(s): I25.5 - Ischemic cardiomyopathy (11) Chronic a-fib Code(s): I48.2 - CHRONIC ATRIAL FIBRILLATION (12) Chronic respiratory failure with hypoxia Code(s): J96.11 - CHRONIC RESPIRATORY FAILURE WITH HYPOXIA (13) History of aortic aneurysm repair Code(s): Z98.890 - OTHER SPECIFIED POSTPROCEDURAL STATES; Z86.79 - PERSONAL HISTORY OF OTHER DISEASES OF THE CIRCULATORY SYSTEM (14) Hypotension Code(s): I95.9 - HYPOTENSION, UNSPECIFIED Qualifiers: Hypotension type: unspecified hypotension type Qualified Code(s): I95.9 - Hypotension, unspecified (15) Pericardial effusion Code(s): I31.3 - PERICARDIAL EFFUSION (NONINFLAMMATORY) (16) SOB (shortness of breath) Code(s): R06.02 - SHORTNESS OF BREATH (17) Seizure Code(s): R56.9 - UNSPECIFIED CONVULSIONS (18) Tachycardia Code(s): R00.0 - TACHYCARDIA, UNSPECIFIED (19) Thoracic aortic aneurysm Code(s): I71.2 - THORACIC AORTIC ANEURYSM, WITHOUT RUPTURE (20) Hx of CABG Code(s): Z95.1 - PRESENCE OF AORTOCORONARY BYPASS GRAFT Assessment/Plan IMP COPD WITH CHRONIC HYPOXEMIC RESPIRATORY FAILURE CHEST PAIN AFIB WITH RVR CARDIOMYOPATHY HYPOTENSION SECONDARY TO AFIB WITH RVR IMPROVED ASHD A/P CABG AAA S/P REPAIR THORACIC AORTIC ANEURYSM PERICARDIAL EFFUSION PLAN RATE CONTROL PER CARDIOLOGY O2 INHALED BRONCHODILATORS ENDY JEFFERSON Problem List - Problems (1) Chest pain Code(s): R07.9 - CHEST PAIN, UNSPECIFIED (2) CAD (coronary artery disease) Code(s): I25.10 - ATHSCL HEART DISEASE OF [place] CORONARY ARTERY W/O ANG PCTRS Qualifiers: Coronary Disease-Associated Artery/Lesion type: [place] artery (3) Paroxysmal atrial fibrillation Code(s): I48.0 - PAROXYSMAL ATRIAL FIBRILLATION (4) Rapid atrial fibrillation Code(s): I48.91 - UNSPECIFIED ATRIAL FIBRILLATION (5) Wide-complex tachycardia Code(s): I47.2 - VENTRICULAR TACHYCARDIA (6) Aortic aneurysm Code(s): I71.9 - AORTIC ANEURYSM OF UNSPECIFIED SITE, WITHOUT RUPTURE (7) CAD (coronary artery disease) Code(s): I25.10 - ATHSCL HEART DISEASE OF [place] CORONARY ARTERY W/O ANG PCTRS Qualifiers: Coronary Disease-Associated Artery/Lesion type: [place] artery Associated angina: with stable angina (8) CHF (congestive heart failure) Code(s): I50.9 - HEART FAILURE, UNSPECIFIED (9) COPD (chronic obstructive pulmonary disease) Code(s): J44.9 - CHRONIC OBSTRUCTIVE PULMONARY DISEASE, UNSPECIFIED Qualifiers: COPD type: COPD with acute exacerbation Qualified Code(s): J44.1 - Chronic obstructive pulmonary disease with (acute) exacerbation (10) Cardiomyopathy Code(s): I42.9 - CARDIOMYOPATHY, UNSPECIFIED Qualifiers: Cardiomyopathy type: ischemic Qualified Code(s): I25.5 - Ischemic cardiomyopathy (11) Chronic a-fib Code(s): I48.2 - CHRONIC ATRIAL FIBRILLATION (12) Chronic respiratory failure with hypoxia Code(s): J96.11 - CHRONIC RESPIRATORY FAILURE WITH HYPOXIA (13) History of aortic aneurysm repair Code(s): Z98.890 - OTHER SPECIFIED POSTPROCEDURAL STATES; Z86.79 - PERSONAL HISTORY OF OTHER DISEASES OF THE CIRCULATORY SYSTEM (14) Hypotension Code(s): I95.9 - HYPOTENSION, UNSPECIFIED Qualifiers: Hypotension type: unspecified hypotension type Qualified Code(s): I95.9 - Hypotension, unspecified (15) Pericardial effusion Code(s): I31.3 - PERICARDIAL EFFUSION (NONINFLAMMATORY) (16) SOB (shortness of breath) Code(s): R06.02 - SHORTNESS OF BREATH (17) Seizure Code(s): R56.9 - UNSPECIFIED CONVULSIONS (18) Tachycardia Code(s): R00.0 - TACHYCARDIA, UNSPECIFIED (19) Thoracic aortic aneurysm Code(s): I71.2 - THORACIC AORTIC ANEURYSM, WITHOUT RUPTURE (20) Hx of CABG Code(s): Z95.1 - PRESENCE OF AORTOCORONARY BYPASS GRAFT
[2018-05-31] MEDS: DULoxetine HCL 30 MG CAPSULE.DR (FP) PO SCH (11:29)
--- NOTE | 2018-05-31 11:55 | PN ---
Progress Note, Physician - Current Medication List Current Medications: Active Medications Apixaban (Eliquis -) 2.5 mg PO BID [facility] Last Admin: 05/31/18 09:33 Dose: 2.5 mg Atorvastatin Calcium (Lipitor -) 10 mg PO HS [facility] Last Admin: 05/30/18 23:09 Dose: 10 mg Budesonide/Formoterol Fumarate (Symbicort 160/4.5mcg -) 2 puff IH BID [facility] Last Admin: 05/31/18 09:36 Dose: 2 puff Duloxetine HCl (Cymbalta -) 60 mg PO 1200 [facility] Last Admin: 05/31/18 11:29 Dose: 60 mg Levetiracetam 500 mg/ (Levetiracetam 250 mg) 750 mg PO BID [facility] Last Admin: 05/31/18 09:33 Dose: 750 mg Metoprolol Succinate (Toprol Xl -) 50 mg PO BID [facility] Last Admin: 05/31/18 09:33 Dose: 50 mg Pregabalin (Lyrica -) 100 mg PO TID [facility] Last Admin: 05/31/18 06:11 Dose: 100 mg Roflumilast (Daliresp -) 500 mcg PO DAILY [facility] Last Admin: 05/31/18 09:33 Dose: 500 mcg Tamsulosin HCl (Flomax -) 0.4 mg PO HS [facility] Last Admin: 05/30/18 23:08 Dose: 0.4 mg - Objective Vital Signs: Vital Signs Temperature 98.0 F 05/31/18 10:00 Pulse Rate 76 05/31/18 10:00 Respiratory Rate 18 05/31/18 10:00 Blood Pressure 138/96 05/31/18 10:00 O2 Sat by Pulse Oximetry (%) 94 L 05/31/18 09:00 Cardiovascular: Yes: S1, S2 Respiratory: Yes: Regular, CTA Bilaterally Gastrointestinal: Yes: Normal Bowel Sounds, Soft Labs: CBC, BMP 05/31/18 05:50 05/31/18 05:50 INR, PTT INR 1.19 (0.83-1.09) H 05/29/18 09:40 Assessment/Plan - Problems (1) Rapid atrial fibrillation Assessment/Plan: Off amiodarone eliquis echo done cardiology on board wbc count is better Code(s): I48.91 - UNSPECIFIED ATRIAL FIBRILLATION (2) COPD (chronic obstructive pulmonary disease) Assessment/Plan: symbicort daliresp pulm consult oxygen Code(s): J44.9 - CHRONIC OBSTRUCTIVE PULMONARY DISEASE, UNSPECIFIED Qualifiers: COPD type: chronic bronchitis (3) Pacemaker Assessment/Plan: pacemaker checked and no issues Code(s): Z95.0 - PRESENCE OF CARDIAC PACEMAKER (4) BPH (benign prostatic hypertrophy) Assessment/Plan: flomax renal function better after IVF monitor labs Code(s): N40.0 - BENIGN PROSTATIC HYPERPLASIA WITHOUT LOWER URINRY TRACT SYMP (5) CVA (cerebral vascular accident) Assessment/Plan: history of cva with residual seizure disorder keppra level keppra 750mg po bid neurology dr gallardo Code(s): I63.9 - CEREBRAL INFARCTION, UNSPECIFIED
[2018-05-31] MEDS ORDERED: ALBUTEROL SO4 0.083% IH SOL 2.5 MG/3 ML VIAL.NEB. NEB PRN (11:58)
[2018-05-31] MEDS ORDERED: ACETAMINOPHEN 325 MG TABLET (FP) PO PRN (13:03)
[2018-05-31] MEDS: TAMSULOSIN HCL 0.4 MG CAP PO SCH (21:53)
[2018-05-31] MEDS: ATORVASTATIN CA 10 MG TABLET (FP) PO SCH (21:53)
[2018-05-31] MEDS ORDERED: ISOSORBIDE DINITRATE 20 MG TABLET (FP) PO SCH (22:00)
[2018-06-01] MEDS: PREGABALIN 100 MG CAPSULE PO SCH ×3 (05:32→22:21)
[2018-06-01] MEDS ORDERED: levETIRAcetam 500 MG TABLET (FP) PO ONE ×2 (09:15→22:17)
[2018-06-01] MEDS ORDERED: levETIRAcetam 250 MG TABLET (FP) PO ONE ×2 (09:15→22:17)
[2018-06-01] MEDS: ROFLUMILAST 500 MCG TABLET PO SCH (09:36)
[2018-06-01] MEDS: APIXABAN 2.5 MG TABLET PO SCH ×2 (09:36→22:21)
[2018-06-01] MEDS: predniSONE 10 MG TABLET (UD) PO SCH (09:36)
[2018-06-01] MEDS: PANTOPRAZOLE 40 MG TABLET (FP) PO SCH (09:36)
[2018-06-01] MEDS: ISOSORBIDE DINITRATE 20 MG TABLET (FP) PO SCH ×2 (09:36→17:37)
[2018-06-01] MEDS: BUDESONIDE/FORMETEROL FUMARATE 160/4.5 mcg INHALER IH SCH ×2 (09:39→22:20)
--- NOTE | 2018-06-01 09:50 | PN ---
Progress Note, Physician - Current Medication List Current Medications: Active Medications Acetaminophen (Tylenol -) 650 mg PO Q4H PRN PRN Reason: FEVER Albuterol Sulfate (Ventolin 0.083% Nebulizer Soln -) 1 amp NEB Q6H PRN PRN Reason: SHORT OF BREATH/WHEEZING Apixaban (Eliquis -) 2.5 mg PO BID [facility] Last Admin: 06/01/18 09:36 Dose: 2.5 mg Atorvastatin Calcium (Lipitor -) 10 mg PO HS [facility] Last Admin: 05/31/18 21:53 Dose: 10 mg Budesonide/Formoterol Fumarate (Symbicort 160/4.5mcg -) 2 puff IH BID [facility] Last Admin: 06/01/18 09:39 Dose: 2 puff Duloxetine HCl (Cymbalta -) 60 mg PO 1200 [facility] Last Admin: 05/31/18 11:29 Dose: 60 mg Isosorbide Dinitrate (Isordil -) 20 mg PO BIDISORDIL [facility] Last Admin: 06/01/18 09:36 Dose: 20 mg Levetiracetam 500 mg/ (Levetiracetam 250 mg) 750 mg PO BID [facility] Last Admin: 06/01/18 09:36 Dose: 750 mg Metoprolol Succinate (Toprol Xl -) 50 mg PO BID [facility] Last Admin: 06/01/18 09:36 Dose: 50 mg Pantoprazole Sodium (Protonix -) 40 mg PO DAILY [facility] Last Admin: 06/01/18 09:36 Dose: 40 mg Prednisone (Deltasone -) 10 mg PO DAILY [facility] Last Admin: 06/01/18 09:36 Dose: 10 mg Pregabalin (Lyrica -) 100 mg PO TID [facility] Last Admin: 06/01/18 05:32 Dose: 100 mg Roflumilast (Daliresp -) 500 mcg PO DAILY [facility] Last Admin: 06/01/18 09:36 Dose: 500 mcg Tamsulosin HCl (Flomax -) 0.4 mg PO HS [facility] Last Admin: 05/31/18 21:53 Dose: 0.4 mg - Objective Vital Signs: Vital Signs Temperature 97.5 F L 06/01/18 06:10 Pulse Rate 69 06/01/18 06:10 Respiratory Rate 17 06/01/18 06:10 Blood Pressure 106/71 06/01/18 06:10 O2 Sat by Pulse Oximetry (%) 96 05/31/18 21:00 Eyes: Yes: WNL, Conjunctiva Clear, EOM Intact HENT: Yes: WNL, Atraumatic, Normocephalic Neck: Yes: WNL, Supple, Trachea Midline Cardiovascular: Yes: WNL, Regular Rate and Rhythm Respiratory: Yes: WNL, Regular, CTA Bilaterally Gastrointestinal: Yes: WNL, Normal Bowel Sounds Genitourinary: Yes: WNL Musculoskeletal: Yes: WNL Extremities: Yes: WNL Edema: No Integumentary: Yes: WNL Neurological: Yes: WNL, Alert, Oriented ...Motor Strength: WNL Psychiatric: Yes: WNL Labs: CBC, BMP 05/31/18 05:50 05/31/18 05:50 INR, PTT INR 1.19 (0.83-1.09) H 05/29/18 09:40 Assessment/Plan PMH: Atrial fibrillation w/ rapid ventricular response with associated hypotension Possible failure to mode switch of PPM Localized pericardial effusion, without tamponade Chronic COPD w/ mild exacerbation Ischemic CM c/p MANAGER [employer]-P PAF on AC Multiple aneurysms, 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 Pacemaker interrogation: Failure to mode switch? ([employer]) 2. Resume home cardiac meds including Eliquis 3. Telemetry 4. Check TSH, electrolytes: Keep K+ and Mg2+ normalized. 5. 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 coverage for dr. Hines
--- NOTE | 2018-06-01 11:28 | PN ---
Progress Note, Physician History of Present Illness: PULMONARY ALERT,NO DISTRESS,-DYSPNEA - Current Medication List Current Medications: Active Medications Acetaminophen (Tylenol -) 650 mg PO Q4H PRN PRN Reason: FEVER Albuterol Sulfate (Ventolin 0.083% Nebulizer Soln -) 1 amp NEB Q6H PRN PRN Reason: SHORT OF BREATH/WHEEZING Apixaban (Eliquis -) 2.5 mg PO BID [facility] Last Admin: 06/01/18 09:36 Dose: 2.5 mg Atorvastatin Calcium (Lipitor -) 10 mg PO HS [facility] Last Admin: 05/31/18 21:53 Dose: 10 mg Budesonide/Formoterol Fumarate (Symbicort 160/4.5mcg -) 2 puff IH BID [facility] Last Admin: 06/01/18 09:39 Dose: 2 puff Duloxetine HCl (Cymbalta -) 60 mg PO 1200 [facility] Last Admin: 05/31/18 11:29 Dose: 60 mg Isosorbide Dinitrate (Isordil -) 20 mg PO BIDISORDIL [facility] Last Admin: 06/01/18 09:36 Dose: 20 mg Levetiracetam 500 mg/ (Levetiracetam 250 mg) 750 mg PO BID [facility] Last Admin: 06/01/18 09:36 Dose: 750 mg Metoprolol Succinate (Toprol Xl -) 50 mg PO BID [facility] Last Admin: 06/01/18 09:36 Dose: 50 mg Pantoprazole Sodium (Protonix -) 40 mg PO DAILY [facility] Last Admin: 06/01/18 09:36 Dose: 40 mg Prednisone (Deltasone -) 10 mg PO DAILY [facility] Last Admin: 06/01/18 09:36 Dose: 10 mg Pregabalin (Lyrica -) 100 mg PO TID [facility] Last Admin: 06/01/18 05:32 Dose: 100 mg Roflumilast (Daliresp -) 500 mcg PO DAILY [facility] Last Admin: 06/01/18 09:36 Dose: 500 mcg Tamsulosin HCl (Flomax -) 0.4 mg PO HS [facility] Last Admin: 05/31/18 21:53 Dose: 0.4 mg - Objective Vital Signs: Vital Signs Temperature 97.5 F L 06/01/18 06:10 Pulse Rate 69 06/01/18 06:10 Respiratory Rate 17 06/01/18 06:10 Blood Pressure 106/71 06/01/18 06:10 O2 Sat by Pulse Oximetry (%) 94 L 06/01/18 09:00 Constitutional: Yes: Well Nourished, Calm Eyes: Yes: WNL HENT: Yes: WNL Neck: Yes: WNL Cardiovascular: Yes: Pulse Irregular, S1, S2 Respiratory: Yes: Rales (BIBASILAR RALES) Gastrointestinal: Yes: Normal Bowel Sounds, Soft Extremities: Yes: WNL Edema: No Problem List - Problems (1) Chest pain Code(s): R07.9 - CHEST PAIN, UNSPECIFIED (2) CAD (coronary artery disease) Code(s): I25.10 - ATHSCL HEART DISEASE OF [place] CORONARY ARTERY W/O ANG PCTRS Qualifiers: Coronary Disease-Associated Artery/Lesion type: [place] artery (3) Paroxysmal atrial fibrillation Code(s): I48.0 - PAROXYSMAL ATRIAL FIBRILLATION (4) Rapid atrial fibrillation Code(s): I48.91 - UNSPECIFIED ATRIAL FIBRILLATION (5) Wide-complex tachycardia Code(s): I47.2 - VENTRICULAR TACHYCARDIA (6) Aortic aneurysm Code(s): I71.9 - AORTIC ANEURYSM OF UNSPECIFIED SITE, WITHOUT RUPTURE (7) CAD (coronary artery disease) Code(s): I25.10 - ATHSCL HEART DISEASE OF [place] CORONARY ARTERY W/O ANG PCTRS Qualifiers: Coronary Disease-Associated Artery/Lesion type: [place] artery Associated angina: with stable angina (8) CHF (congestive heart failure) Code(s): I50.9 - HEART FAILURE, UNSPECIFIED (9) COPD (chronic obstructive pulmonary disease) Code(s): J44.9 - CHRONIC OBSTRUCTIVE PULMONARY DISEASE, UNSPECIFIED Qualifiers: COPD type: COPD with acute exacerbation Qualified Code(s): J44.1 - Chronic obstructive pulmonary disease with (acute) exacerbation (10) Cardiomyopathy Code(s): I42.9 - CARDIOMYOPATHY, UNSPECIFIED Qualifiers: Cardiomyopathy type: ischemic Qualified Code(s): I25.5 - Ischemic cardiomyopathy (11) Chronic a-fib Code(s): I48.2 - CHRONIC ATRIAL FIBRILLATION (12) Chronic respiratory failure with hypoxia Code(s): J96.11 - CHRONIC RESPIRATORY FAILURE WITH HYPOXIA (13) History of aortic aneurysm repair Code(s): Z98.890 - OTHER SPECIFIED POSTPROCEDURAL STATES; Z86.79 - PERSONAL HISTORY OF OTHER DISEASES OF THE CIRCULATORY SYSTEM (14) Hypotension Code(s): I95.9 - HYPOTENSION, UNSPECIFIED Qualifiers: Hypotension type: unspecified hypotension type Qualified Code(s): I95.9 - Hypotension, unspecified (15) Pericardial effusion Code(s): I31.3 - PERICARDIAL EFFUSION (NONINFLAMMATORY) (16) SOB (shortness of breath) Code(s): R06.02 - SHORTNESS OF BREATH (17) Seizure Code(s): R56.9 - UNSPECIFIED CONVULSIONS (18) Tachycardia Code(s): R00.0 - TACHYCARDIA, UNSPECIFIED (19) Thoracic aortic aneurysm Code(s): I71.2 - THORACIC AORTIC ANEURYSM, WITHOUT RUPTURE (20) Hx of CABG Code(s): Z95.1 - PRESENCE OF AORTOCORONARY BYPASS GRAFT Assessment/Plan IMP COPD WITH CHRONIC HYPOXEMIC RESPIRATORY FAILURE CHEST PAIN RESOLVED AFIB WITH RVR CARDIOMYOPATHY HYPOTENSION SECONDARY TO AFIB WITH RVR IMPROVED ASHD A/P CABG AAA S/P REPAIR THORACIC AORTIC ANEURYSM PERICARDIAL EFFUSION PLAN RATE CONTROL PER CARDIOLOGY O2 INHALED BRONCHODILATORS ENDY JEFFERSON Problem List - Problems (1) Chest pain Code(s): R07.9 - CHEST PAIN, UNSPECIFIED (2) CAD (coronary artery disease) Code(s): I25.10 - ATHSCL HEART DISEASE OF [place] CORONARY ARTERY W/O ANG PCTRS Qualifiers: Coronary Disease-Associated Artery/Lesion type: [place] artery (3) Paroxysmal atrial fibrillation Code(s): I48.0 - PAROXYSMAL ATRIAL FIBRILLATION (4) Rapid atrial fibrillation Code(s): I48.91 - UNSPECIFIED ATRIAL FIBRILLATION (5) Wide-complex tachycardia Code(s): I47.2 - VENTRICULAR TACHYCARDIA (6) Aortic aneurysm Code(s): I71.9 - AORTIC ANEURYSM OF UNSPECIFIED SITE, WITHOUT RUPTURE (7) CAD (coronary artery disease) Code(s): I25.10 - ATHSCL HEART DISEASE OF [place] CORONARY ARTERY W/O ANG PCTRS Qualifiers: Coronary Disease-Associated Artery/Lesion type: [place] artery Associated angina: with stable angina (8) CHF (congestive heart failure) Code(s): I50.9 - HEART FAILURE, UNSPECIFIED (9) COPD (chronic obstructive pulmonary disease) Code(s): J44.9 - CHRONIC OBSTRUCTIVE PULMONARY DISEASE, UNSPECIFIED Qualifiers: COPD type: COPD with acute exacerbation Qualified Code(s): J44.1 - Chronic obstructive pulmonary disease with (acute) exacerbation (10) Cardiomyopathy Code(s): I42.9 - CARDIOMYOPATHY, UNSPECIFIED Qualifiers: Cardiomyopathy type: ischemic Qualified Code(s): I25.5 - Ischemic cardiomyopathy (11) Chronic a-fib Code(s): I48.2 - CHRONIC ATRIAL FIBRILLATION (12) Chronic respiratory failure with hypoxia Code(s): J96.11 - CHRONIC RESPIRATORY FAILURE WITH HYPOXIA (13) History of aortic aneurysm repair Code(s): Z98.890 - OTHER SPECIFIED POSTPROCEDURAL STATES; Z86.79 - PERSONAL HISTORY OF OTHER DISEASES OF THE CIRCULATORY SYSTEM (14) Hypotension Code(s): I95.9 - HYPOTENSION, UNSPECIFIED Qualifiers: Hypotension type: unspecified hypotension type Qualified Code(s): I95.9 - Hypotension, unspecified (15) Pericardial effusion Code(s): I31.3 - PERICARDIAL EFFUSION (NONINFLAMMATORY) (16) SOB (shortness of breath) Code(s): R06.02 - SHORTNESS OF BREATH (17) Seizure Code(s): R56.9 - UNSPECIFIED CONVULSIONS (18) Tachycardia Code(s): R00.0 - TACHYCARDIA, UNSPECIFIED (19) Thoracic aortic aneurysm Code(s): I71.2 - THORACIC AORTIC ANEURYSM, WITHOUT RUPTURE (20) Hx of CABG Code(s): Z95.1 - PRESENCE OF AORTOCORONARY BYPASS GRAFT
[2018-06-01] MEDS: DULoxetine HCL 30 MG CAPSULE.DR (FP) PO SCH (12:05)
--- NOTE | 2018-06-01 14:16 | PN ---
Progress Note, Physician - Current Medication List Current Medications: Active Medications Acetaminophen (Tylenol -) 650 mg PO Q4H PRN PRN Reason: FEVER Last Admin: 06/01/18 12:57 Dose: 650 mg Albuterol Sulfate (Ventolin 0.083% Nebulizer Soln -) 1 amp NEB Q6H PRN PRN Reason: SHORT OF BREATH/WHEEZING Apixaban (Eliquis -) 2.5 mg PO BID [facility] Last Admin: 06/01/18 09:36 Dose: 2.5 mg Atorvastatin Calcium (Lipitor -) 10 mg PO HS [facility] Last Admin: 05/31/18 21:53 Dose: 10 mg Budesonide/Formoterol Fumarate (Symbicort 160/4.5mcg -) 2 puff IH BID [facility] Last Admin: 06/01/18 09:39 Dose: 2 puff Duloxetine HCl (Cymbalta -) 60 mg PO 1200 [facility] Last Admin: 06/01/18 12:05 Dose: 60 mg Isosorbide Dinitrate (Isordil -) 20 mg PO BIDISORDIL [facility] Last Admin: 06/01/18 09:36 Dose: 20 mg Levetiracetam 500 mg/ (Levetiracetam 250 mg) 750 mg PO BID [facility] Last Admin: 06/01/18 09:36 Dose: 750 mg Metoprolol Succinate (Toprol Xl -) 50 mg PO BID [facility] Last Admin: 06/01/18 09:36 Dose: 50 mg Pantoprazole Sodium (Protonix -) 40 mg PO DAILY [facility] Last Admin: 06/01/18 09:36 Dose: 40 mg Prednisone (Deltasone -) 10 mg PO DAILY [facility] Last Admin: 06/01/18 09:36 Dose: 10 mg Pregabalin (Lyrica -) 100 mg PO TID [facility] Last Admin: 06/01/18 13:04 Dose: 100 mg Roflumilast (Daliresp -) 500 mcg PO DAILY [facility] Last Admin: 06/01/18 09:36 Dose: 500 mcg Tamsulosin HCl (Flomax -) 0.4 mg PO HS [facility] Last Admin: 05/31/18 21:53 Dose: 0.4 mg - Objective Vital Signs: Vital Signs Temperature 97.5 F L 06/01/18 06:10 Pulse Rate 69 06/01/18 06:10 Respiratory Rate 17 06/01/18 06:10 Blood Pressure 106/71 06/01/18 06:10 O2 Sat by Pulse Oximetry (%) 94 L 06/01/18 09:00 Cardiovascular: Yes: S1, S2 Respiratory: Yes: Regular, CTA Bilaterally Gastrointestinal: Yes: Normal Bowel Sounds, Soft Labs: CBC, BMP 05/31/18 05:50 05/31/18 05:50 INR, PTT INR 1.19 (0.83-1.09) H 05/29/18 09:40 Assessment/Plan - Problems (1) Rapid atrial fibrillation Assessment/Plan: Off amiodarone eliquis echo done cardiology on board wbc count is better Code(s): I48.91 - UNSPECIFIED ATRIAL FIBRILLATION (2) COPD (chronic obstructive pulmonary disease) Assessment/Plan: symbicort daliresp pulm consult oxygen Code(s): J44.9 - CHRONIC OBSTRUCTIVE PULMONARY DISEASE, UNSPECIFIED Qualifiers: COPD type: chronic bronchitis (3) Pacemaker Assessment/Plan: pacemaker checked and no issues Code(s): Z95.0 - PRESENCE OF CARDIAC PACEMAKER (4) BPH (benign prostatic hypertrophy) Assessment/Plan: flomax renal function better after IVF monitor labs Code(s): N40.0 - BENIGN PROSTATIC HYPERPLASIA WITHOUT LOWER URINRY TRACT SYMP (5) CVA (cerebral vascular accident) Assessment/Plan: history of cva with residual seizure disorder keppra level keppra 750mg po bid neurology dr gallardo Code(s): I63.9 - CEREBRAL INFARCTION, UNSPECIFIED
[2018-06-01] MEDS: ATORVASTATIN CA 10 MG TABLET (FP) PO SCH (22:21)
[2018-06-01] MEDS: TAMSULOSIN HCL 0.4 MG CAP PO SCH (22:21)
[2018-06-02] MEDS: PREGABALIN 100 MG CAPSULE PO SCH ×2 (05:25→14:10)
[2018-06-02 07:41] VITALS: PULSE 64
--- NOTE | 2018-06-02 09:17 | PN ---
Progress Note, Physician Chief Complaint: seen and examined on telemetry Awake, oriented. He denies chest pain, palpitations or SOB above baseline. TELE: Paced rhythm. No further significant arrhythmias noted in last 24 hours. As reviewed Saturday, pacemaker was interrogated and device functioning normally. - Current Medication List Current Medications: Active Medications Acetaminophen (Tylenol -) 650 mg PO Q4H PRN PRN Reason: FEVER Last Admin: 06/01/18 12:57 Dose: 650 mg Albuterol Sulfate (Ventolin 0.083% Nebulizer Soln -) 1 amp NEB Q6H PRN PRN Reason: SHORT OF BREATH/WHEEZING Apixaban (Eliquis -) 2.5 mg PO BID [facility] Last Admin: 06/01/18 22:21 Dose: 2.5 mg Atorvastatin Calcium (Lipitor -) 10 mg PO HS [facility] Last Admin: 06/01/18 22:21 Dose: 10 mg Budesonide/Formoterol Fumarate (Symbicort 160/4.5mcg -) 2 puff IH BID [facility] Last Admin: 06/01/18 22:20 Dose: 2 puff Duloxetine HCl (Cymbalta -) 60 mg PO 1200 [facility] Last Admin: 06/01/18 12:05 Dose: 60 mg Isosorbide Dinitrate (Isordil -) 20 mg PO BIDISORDIL [facility] Last Admin: 06/01/18 17:37 Dose: 20 mg Levetiracetam 500 mg/ (Levetiracetam 250 mg) 750 mg PO BID [facility] Last Admin: 06/01/18 22:20 Dose: 750 mg Metoprolol Succinate (Toprol Xl -) 50 mg PO BID [facility] Last Admin: 06/01/18 22:20 Dose: 50 mg Pantoprazole Sodium (Protonix -) 40 mg PO DAILY [facility] Last Admin: 06/01/18 09:36 Dose: 40 mg Prednisone (Deltasone -) 10 mg PO DAILY [facility] Last Admin: 06/01/18 09:36 Dose: 10 mg Pregabalin (Lyrica -) 100 mg PO TID [facility] Last Admin: 06/02/18 05:25 Dose: 100 mg Roflumilast (Daliresp -) 500 mcg PO DAILY [facility] Last Admin: 06/01/18 09:36 Dose: 500 mcg Tamsulosin HCl (Flomax -) 0.4 mg PO HS [facility] Last Admin: 06/01/18 22:21 Dose: 0.4 mg - Objective Vital Signs: Vital Signs Temperature 97.9 F 06/02/18 06:00 Pulse Rate 64 06/02/18 06:00 Respiratory Rate 18 06/02/18 06:00 Blood Pressure 130/64 06/02/18 06:00 O2 Sat by Pulse Oximetry (%) 97 06/01/18 21:00 Constitutional: Yes: No Distress, Calm Eyes: Yes: Conjunctiva Clear Cardiovascular: Yes: Regular Rate and Rhythm (paced) Respiratory: Yes: Other (decreased breath sounds b/l; no active wheezing. No rales.) Gastrointestinal: Yes: Soft Edema: No Neurological: Yes: Alert, Oriented Labs: CBC, BMP 05/31/18 05:50 05/31/18 05:50 INR, PTT INR 1.19 (0.83-1.09) H 05/29/18 09:40 Laboratory Tests 05/29/18 05/29/18 05/30/18 09:40 09:40 05:30 WBC Hgb Plt Count INR 1.19 H Sodium Potassium BUN Creatinine Total Bilirubin ALT Alkaline Phosphatase Creatine Kinase 34 28 Troponin I 0.04 0.25 H 05/31/18 05/31/18 05:50 05:50 WBC 9.6 Hgb 14.1 Plt Count 151 INR Sodium 142 Potassium 4.7 BUN 19 H Creatinine 1.2 Total Bilirubin 0.8 ALT 16 Alkaline Phosphatase 51 Creatine Kinase Troponin I - ....Imaging EKG: Image Reviewed Problem List - Problems (1) Wide-complex tachycardia Code(s): I47.2 - VENTRICULAR TACHYCARDIA (2) Rapid atrial fibrillation Code(s): I48.91 - UNSPECIFIED ATRIAL FIBRILLATION (3) CAD (coronary artery disease) Code(s): I25.10 - ATHSCL HEART DISEASE OF [place] CORONARY ARTERY W/O ANG PCTRS Qualifiers: Coronary Disease-Associated Artery/Lesion type: [place] artery (4) Ischemic cardiomyopathy Code(s): I25.5 - ISCHEMIC CARDIOMYOPATHY (5) Pacemaker Code(s): Z95.0 - PRESENCE OF CARDIAC PACEMAKER (6) Biventricular cardiac pacemaker malfunction Code(s): T82.111A - BREAKDOWN OF CARDIAC PULSE GENERATOR (BATTERY), INIT Qualifiers: Encounter type: initial encounter Qualified Code(s): T82.111A - Breakdown ( mechanical) of cardiac pulse generator (battery), initial encounter (7) COPD (chronic obstructive pulmonary disease) Code(s): J44.9 - CHRONIC OBSTRUCTIVE PULMONARY DISEASE, UNSPECIFIED Qualifiers: COPD type: chronic bronchitis (8) Pericardial effusion Code(s): I31.3 - PERICARDIAL EFFUSION (NONINFLAMMATORY) (9) Thoracic aortic aneurysm Code(s): I71.2 - THORACIC AORTIC ANEURYSM, WITHOUT RUPTURE (10) Peripheral artery disease Code(s): I73.9 - PERIPHERAL VASCULAR DISEASE, UNSPECIFIED Assessment/Plan PMH: Atrial fibrillation w/ rapid ventricular response with associated hypotension now resolved with rate control and hydration Localized pericardial effusion, without tamponade Chronic COPD w/ mild exacerbation Ischemic CM c/p LICENSED AND CERTIFIED MIDWIFE-P PAF on AC Multiple aneurysms, 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 Pacemaker interrogation completed, normal device function. 2. Rapid AF subsided after IV amio load. Daily Toprol dose now increased and tolerated well. 24 hours without significant arrhythmias. 3. To continue Eliquis 4. Telemetry may be discontinued. 5. The borderline elevation in TnI is likely a result of subendocardial ischemia secondary to the episodes of BENOIT. Patient does not want any invasive measures. He was deemed a high risk cath candidate previously at [facility] due to his aneurysms and diffusely calcified aorta. Will continue medical management/ conservative treatment. 6. Discharge planning; may benefit from VNS as he is chronically ill with multiple organ systems involved. Ambulation is limited. Multiple meds. is also elderly and it has become difficult to care for him (my observations).
[2018-06-02] MEDS ORDERED: levETIRAcetam 250 MG TABLET (FP) PO ONE (09:43)
[2018-06-02] MEDS ORDERED: levETIRAcetam 500 MG TABLET (FP) PO ONE (09:44)
[2018-06-02] MEDS: PANTOPRAZOLE 40 MG TABLET (FP) PO SCH (09:46)
[2018-06-02] MEDS: APIXABAN 2.5 MG TABLET PO SCH (09:46)
[2018-06-02] MEDS: predniSONE 10 MG TABLET (UD) PO SCH (09:46)
[2018-06-02] MEDS: ROFLUMILAST 500 MCG TABLET PO SCH (09:47)
[2018-06-02] MEDS: ISOSORBIDE DINITRATE 20 MG TABLET (FP) PO SCH (09:47)
[2018-06-02] MEDS: BUDESONIDE/FORMETEROL FUMARATE 160/4.5 mcg INHALER IH SCH (09:48)
[2018-06-02 10:27] VITALS: BP 127/77; TEMP 97.6
--- NOTE | 2018-06-02 11:07 | PN ---
Progress Note, Physician History of Present Illness: PULMONARY ALERT,NO DISTRESS,-SOB,-CP - Current Medication List Current Medications: Active Medications Acetaminophen (Tylenol -) 650 mg PO Q4H PRN PRN Reason: FEVER Last Admin: 06/01/18 12:57 Dose: 650 mg Albuterol Sulfate (Ventolin 0.083% Nebulizer Soln -) 1 amp NEB Q6H PRN PRN Reason: SHORT OF BREATH/WHEEZING Apixaban (Eliquis -) 2.5 mg PO BID [facility] Last Admin: 06/02/18 09:46 Dose: 2.5 mg Atorvastatin Calcium (Lipitor -) 10 mg PO HS [facility] Last Admin: 06/01/18 22:21 Dose: 10 mg Budesonide/Formoterol Fumarate (Symbicort 160/4.5mcg -) 2 puff IH BID [facility] Last Admin: 06/02/18 09:48 Dose: 2 puff Duloxetine HCl (Cymbalta -) 60 mg PO 1200 [facility] Last Admin: 06/01/18 12:05 Dose: 60 mg Isosorbide Dinitrate (Isordil -) 20 mg PO BIDISORDIL [facility] Last Admin: 06/02/18 09:47 Dose: 20 mg Levetiracetam 500 mg/ (Levetiracetam 250 mg) 750 mg PO BID [facility] Last Admin: 06/02/18 09:46 Dose: 750 mg Metoprolol Succinate (Toprol Xl -) 50 mg PO BID [facility] Last Admin: 06/02/18 09:46 Dose: 50 mg Pantoprazole Sodium (Protonix -) 40 mg PO DAILY [facility] Last Admin: 06/02/18 09:46 Dose: 40 mg Prednisone (Deltasone -) 10 mg PO DAILY [facility] Last Admin: 06/02/18 09:46 Dose: 10 mg Pregabalin (Lyrica -) 100 mg PO TID [facility] Last Admin: 06/02/18 05:25 Dose: 100 mg Roflumilast (Daliresp -) 500 mcg PO DAILY [facility] Last Admin: 06/02/18 09:47 Dose: 500 mcg Tamsulosin HCl (Flomax -) 0.4 mg PO HS [facility] Last Admin: 06/01/18 22:21 Dose: 0.4 mg - Objective Vital Signs: Vital Signs Temperature 97.6 F 06/02/18 10:00 Pulse Rate 64 03/11/19 10:00 Respiratory Rate 18 06/02/18 10:00 Blood Pressure 127/77 06/02/18 10:00 O2 Sat by Pulse Oximetry (%) 94 L 06/02/18 09:00 Constitutional: Yes: Well Nourished, Calm Eyes: Yes: WNL HENT: Yes: WNL Neck: Yes: WNL Cardiovascular: Yes: Pulse Irregular, S1, S2 Respiratory: Yes: Rales (FEW BIBASILAR RALES) Gastrointestinal: Yes: Normal Bowel Sounds, Soft Extremities: Yes: WNL Edema: No Labs: CBC, BMP Problem List - Problems (1) Chest pain Code(s): R07.9 - CHEST PAIN, UNSPECIFIED (2) CAD (coronary artery disease) Code(s): I25.10 - ATHSCL HEART DISEASE OF [place] CORONARY ARTERY W/O ANG PCTRS Qualifiers: Coronary Disease-Associated Artery/Lesion type: [place] artery (3) Paroxysmal atrial fibrillation Code(s): I48.0 - PAROXYSMAL ATRIAL FIBRILLATION (4) Rapid atrial fibrillation Code(s): I48.91 - UNSPECIFIED ATRIAL FIBRILLATION (5) Wide-complex tachycardia Code(s): I47.2 - VENTRICULAR TACHYCARDIA (6) Aortic aneurysm Code(s): I71.9 - AORTIC ANEURYSM OF UNSPECIFIED SITE, WITHOUT RUPTURE (7) CAD (coronary artery disease) Code(s): I25.10 - ATHSCL HEART DISEASE OF [place] CORONARY ARTERY W/O ANG PCTRS Qualifiers: Coronary Disease-Associated Artery/Lesion type: [place] artery Associated angina: with stable angina (8) CHF (congestive heart failure) Code(s): I50.9 - HEART FAILURE, UNSPECIFIED (9) COPD (chronic obstructive pulmonary disease) Code(s): J44.9 - CHRONIC OBSTRUCTIVE PULMONARY DISEASE, UNSPECIFIED Qualifiers: COPD type: COPD with acute exacerbation Qualified Code(s): J44.1 - Chronic obstructive pulmonary disease with (acute) exacerbation (10) Cardiomyopathy Code(s): I42.9 - CARDIOMYOPATHY, UNSPECIFIED Qualifiers: Cardiomyopathy type: ischemic Qualified Code(s): I25.5 - Ischemic cardiomyopathy (11) Chronic a-fib Code(s): I48.2 - CHRONIC ATRIAL FIBRILLATION (12) Chronic respiratory failure with hypoxia Code(s): J96.11 - CHRONIC RESPIRATORY FAILURE WITH HYPOXIA (13) History of aortic aneurysm repair Code(s): Z98.890 - OTHER SPECIFIED POSTPROCEDURAL STATES; Z86.79 - PERSONAL HISTORY OF OTHER DISEASES OF THE CIRCULATORY SYSTEM (14) Hypotension Code(s): I95.9 - HYPOTENSION, UNSPECIFIED Qualifiers: Hypotension type: unspecified hypotension type Qualified Code(s): I95.9 - Hypotension, unspecified (15) Pericardial effusion Code(s): I31.3 - PERICARDIAL EFFUSION (NONINFLAMMATORY) (16) SOB (shortness of breath) Code(s): R06.02 - SHORTNESS OF BREATH (17) Seizure Code(s): R56.9 - UNSPECIFIED CONVULSIONS (18) Tachycardia Code(s): R00.0 - TACHYCARDIA, UNSPECIFIED (19) Thoracic aortic aneurysm Code(s): I71.2 - THORACIC AORTIC ANEURYSM, WITHOUT RUPTURE (20) Hx of CABG Code(s): Z95.1 - PRESENCE OF AORTOCORONARY BYPASS GRAFT Assessment/Plan IMP COPD WITH CHRONIC HYPOXEMIC RESPIRATORY FAILURE CHEST PAIN RESOLVED AFIB WITH RVR CARDIOMYOPATHY HYPOTENSION SECONDARY TO AFIB WITH RVR IMPROVED ASHD A/P CABG AAA S/P REPAIR THORACIC AORTIC ANEURYSM PERICARDIAL EFFUSION PLAN RATE CONTROL PER CARDIOLOGY O2 INHALED BRONCHODILATORS AC DR JEFFERSON Problem List - Problems (1) Chest pain Code(s): R07.9 - CHEST PAIN, UNSPECIFIED (2) CAD (coronary artery disease) Code(s): I25.10 - ATHSCL HEART DISEASE OF [place] CORONARY ARTERY W/O ANG PCTRS Qualifiers: Coronary Disease-Associated Artery/Lesion type: [place] artery (3) Paroxysmal atrial fibrillation Code(s): I48.0 - PAROXYSMAL ATRIAL FIBRILLATION (4) Rapid atrial fibrillation Code(s): I48.91 - UNSPECIFIED ATRIAL FIBRILLATION (5) Wide-complex tachycardia Code(s): I47.2 - VENTRICULAR TACHYCARDIA (6) Aortic aneurysm Code(s): I71.9 - AORTIC ANEURYSM OF UNSPECIFIED SITE, WITHOUT RUPTURE (7) CAD (coronary artery disease) Code(s): I25.10 - ATHSCL HEART DISEASE OF [place] CORONARY ARTERY W/O ANG PCTRS Qualifiers: Coronary Disease-Associated Artery/Lesion type: [place] artery Associated angina: with stable angina (8) CHF (congestive heart failure) Code(s): I50.9 - HEART FAILURE, UNSPECIFIED (9) COPD (chronic obstructive pulmonary disease) Code(s): J44.9 - CHRONIC OBSTRUCTIVE PULMONARY DISEASE, UNSPECIFIED Qualifiers: COPD type: COPD with acute exacerbation Qualified Code(s): J44.1 - Chronic obstructive pulmonary disease with (acute) exacerbation (10) Cardiomyopathy Code(s): I42.9 - CARDIOMYOPATHY, UNSPECIFIED Qualifiers: Cardiomyopathy type: ischemic Qualified Code(s): I25.5 - Ischemic cardiomyopathy (11) Chronic a-fib Code(s): I48.2 - CHRONIC ATRIAL FIBRILLATION (12) Chronic respiratory failure with hypoxia Code(s): J96.11 - CHRONIC RESPIRATORY FAILURE WITH HYPOXIA (13) History of aortic aneurysm repair Code(s): Z98.890 - OTHER SPECIFIED POSTPROCEDURAL STATES; Z86.79 - PERSONAL HISTORY OF OTHER DISEASES OF THE CIRCULATORY SYSTEM (14) Hypotension Code(s): I95.9 - HYPOTENSION, UNSPECIFIED Qualifiers: Hypotension type: unspecified hypotension type Qualified Code(s): I95.9 - Hypotension, unspecified (15) Pericardial effusion Code(s): I31.3 - PERICARDIAL EFFUSION (NONINFLAMMATORY) (16) SOB (shortness of breath) Code(s): R06.02 - SHORTNESS OF BREATH (17) Seizure Code(s): R56.9 - UNSPECIFIED CONVULSIONS (18) Tachycardia Code(s): R00.0 - TACHYCARDIA, UNSPECIFIED (19) Thoracic aortic aneurysm Code(s): I71.2 - THORACIC AORTIC ANEURYSM, WITHOUT RUPTURE (20) Hx of CABG Code(s): Z95.1 - PRESENCE OF AORTOCORONARY BYPASS GRAFT
[2018-06-02] MEDS: DULoxetine HCL 30 MG CAPSULE.DR (FP) PO SCH (12:19)
--- NOTE | 2018-06-02 12:47 | DS ---
Physical Examination Vital Signs: Vital Signs Temperature 97.6 F 06/02/18 10:00 Pulse Rate 64 06/02/18 10:00 Respiratory Rate 18 06/02/18 10:00 Blood Pressure 127/77 06/02/18 10:00 O2 Sat by Pulse Oximetry (%) 94 L 06/02/18 09:00 Constitutional: Yes: Calm Cardiovascular: Yes: Regular Rate and Rhythm, S1, S2 Respiratory: Yes: CTA Bilaterally, Diminished (at bases) Gastrointestinal: Yes: Normal Bowel Sounds, Soft Edema: No Neurological: Yes: Alert, Oriented Labs: CBC, BMP 05/31/18 05:50 05/31/18 05:50 Discharge Summary Reason For Visit: RAPID ATRIAL FIBRILLATION/CHEST PAIN Current Active Problems Biventricular cardiac pacemaker malfunction (Acute) CAD (coronary artery disease) (Acute) COPD (chronic obstructive pulmonary disease) (Acute) CVA (cerebral vascular accident) (Acute) Chest pain (Acute) Chest pain at rest (Acute) Ischemic cardiomyopathy (Acute) Pacemaker (Acute) Paroxysmal atrial fibrillation (Acute) Rapid atrial fibrillation (Acute) Wide-complex tachycardia (Acute) Hospital Course: - Primary Care Physician PCP: Xavier Escamilla - Admission Chief Complaint: camei n with chest pain History of Present Illness: 77 yo M with h/o CAD, chronic CVA (2011) COPD, 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 Patient with baseline dysarthria 2/2 CVA. Patient spouse at bedside to assist in report. Reports patient with complaint of diffuse chest pain/discomfort, lightheadedness, and SOB acutely this AM while at rest. No identifiable alleviators or triggers. EMS noted patient with abnormal ventricular paced rhythm, and tachycardia to 140's. Patient started on Amiodarone 150 mg en route to ED. Compliant with daily Metoprolol 37.5 BID. No home O2 requirements. per patient he got up in morning took his morning meds and then sat down and a little while later started complaining of chest discomfort , she also claims he has not been eaten much at home for last few days.she said that yesterday he went for EEG and then went out to eat and didnot eat much of his hamburger normally he finished his burger. in ER found to have Rapid afib hr in 130 and BP in low 80's started on amiodarone drip and got iv- now BP 98/87 and HR in 80's and chest pain resloved admitted to telemetry floor iv amiodarone,fluids and toprol dose increased to bid seen by pulmonary as well continue prednisone symbicort and daliresp oxygen via nasal cannula Condition: Improved - Instructions Referrals: Alysas Solomon [Primary Care Provider] - 1 Week Rad Hines MD [Staff Physician] - 2 Weeks Disposition: HOME - Home Medications Comprehensive Discharge Medication List: Ambulatory Orders Duloxetine HCl [Cymbalta -] 60 mg PO DAILY 11/08/17 Isosorbide Dinitrate [Isordil -] 20 mg PO BID 11/08/17 Pantoprazole Sodium [Protonix] 40 mg PO DAILY 11/08/17 Pregabalin [Lyrica] 100 mg PO TID 11/08/17 Tamsulosin HCl [Flomax] 0.4 mg PO HS 11/08/17 Albuterol 0.083% Nebulizer Suki [Ventolin 0.083% Nebulizer Soln -] 1 amp NEB Q6H PRN amp 12/10/17 Apixaban [Eliquis -] 2.5 mg PO BID #60 tablet 12/11/17 Budesonide/Formeterol Fumarate [SYMBICORT 160/4.5mcg -] 2 puff IH BID #1 inhaler 12/11/17 Metoprolol Tartrate [Lopressor -] 37.5 mg PO BID #90 tablet 12/11/17 levETIRAcetam [Keppra -] 750 mg PO BID #45 tablet 12/26/17 Atorvastatin Ca [Lipitor] 10 mg PO HS 03/25/18 Furosemide [Lasix] 20 mg PO DAILY 03/25/18 Prednisone 10 mg PO DAILY #21 tablet 05/22/18 Roflumilast [Daliresp -] 500 mcg PO DAILY #30 tablet 05/22/18 Ferrous Sulfate 325 mg PO DAILY 05/29/18
== END 2018-06-02 13:45 | disposition home or self-care (01) | DRG 309 ==
LOC: JER 09:16 → JERBED 11:41 → J4W 14:25
PROVIDERS: ADMIT Student in an Organized Health Care Education/Training Program; ATTEND Student in an Organized Health Care Education/Training Program
PROC: 4B02XSZ Measurement of Cardiac Pacemaker, External Approach (ICD-10-PCS; principal; 2018-05-29)
DX: I48.0 Paroxysmal atrial fibrillation (principal); I31.3 Pericardial effusion (noninflammatory); J44.1 Chronic obstructive pulmonary disease with (acute) exacerbation; J96.11 Chronic respiratory failure with hypoxia; R07.9 Chest pain, unspecified; I25.10 Atherosclerotic heart disease of native coronary artery without angina pectoris; J44.9 Chronic obstructive pulmonary disease, unspecified; I25.5 Ischemic cardiomyopathy; Z79.01 Long term (current) use of anticoagulants; I71.2 Thoracic aortic aneurysm, without rupture; Z95.0 Presence of cardiac pacemaker; I73.9 Peripheral vascular disease, unspecified; I95.2 Hypotension due to drugs; T46.2X5A Adverse effect of other antidysrhythmic drugs, initial encounter; I69.322 Dysarthria following cerebral infarction; N40.0 Benign prostatic hyperplasia without lower urinary tract symptoms; Z99.81 Dependence on supplemental oxygen; Z95.1 Presence of aortocoronary bypass graft; F03.90 Unspecified dementia, unspecified severity, without behavioral disturbance, psychotic disturbance, mood disturbance, and anxiety; G40.909 Epilepsy, unspecified, not intractable, without status epilepticus; I47.2 Ventricular tachycardia
CPT/HCPCS: 36415; 71045-TC-FY; 80053; 80061; 80177; 81003; 82550; 83036; 83721; 83735; 83880; 84100; 84443; 84484; 85025; 85610; 93005; 93010; 97116-GP; 97161-GP; 99284-25; J0131; J7030

== ENCOUNTER 2018-06-23 10:28 | Inpatient (IN) | payer OTHER ==
[2018-06-23] MEDS ORDERED: ALBUTEROL SO4 2.5/IPRATROPIUM 0.5 INH SOL 3 ML VIAL.NEB. NEB ONE ×4 (10:47→17:02)
[2018-06-23 11:48] LABS: BASO % 0.6 % (0-2.0); EOS % 0.4 % (0-4.5); HEMATOCRIT 45.3 % (35.4-49); HEMOGLOBIN 14.7 GM/dL (11.7-16.9); LYMPH % 8.7 % (8-40); MCH 28.8 pg (25.7-33.7); MCHC 32.5 g/dl (32.0-35.9); MEAN CELL VOLUME 88.6 fl (80-96); MEAN PLT VOLUME 9.3 fl (7.5-11.1); MONO % 4.3 % (3.8-10.2); PLATELET COUNT 148 K/MM3 (134-434); RBC 5.11 M/mm3 (4.00-5.60); RDW 18.3 % (11.9-15.9); WHITE BLOOD COUNT 6.9 K/mm3 (4.0-10.0)
[2018-06-23 12:08] LABS: INR 1.31 (0.83-1.09); PROTHROMBIN TIME (PATIENT) 15.5 SEC (9.7-13.0)
[2018-06-23 12:29] LABS: ALBUMIN 3.4 g/dl (3.4-5.0); ALK PHOS 53 U/L (45-117); ANION GAP 7 MMOL/L (8-16); BILIRUBIN,TOTAL 0.3 mg/dL (0.2-1); BLOOD UREA NITROGEN 19 mg/dL (7-18); CALCIUM 8.4 mg/dL (8.5-10.1); CHLORIDE 107 mmol/L (98-107); CO2 28 mmol/L (21-32); CREATININE 1.2 mg/dL (0.55-1.3); GLUCOSE,RANDOM 95 mg/dL (74-106); MAGNESIUM 2.1 mg/dL (1.8-2.4); POTASSIUM 4.2 mmol/L (3.5-5.1); SGOT/AST 17 U/L (15-37); SGPT/ALT 13 U/L (13-61); SODIUM 142 mmol/L (136-145); TOT PROT 6.5 g/dl (6.4-8.2)
[2018-06-23] MEDS ORDERED: methylPREDNISolone NA SUCC 125 MG/2 ML VIAL IVPUSH ONE (12:44)
[2018-06-23] MEDS ORDERED: methylPREDNISolone NA SUCC 125 MG/2 ML VIAL ONE (12:59)
--- NOTE | 2018-06-23 13:53 | PDOC ---
History of Present Illness - General Chief Complaint: Shortness of Breath Stated Complaint: Shortness of Breath Time Seen by Provider: 06/23/18 11:29 History Source: Patient Exam Limitations: No Limitations - History of Present Illness Initial Comments: 77 yo male pmh HTN, HLD, Afib (on Eliquis) CAD s/p stents, COPD (on 3L O2 at home, never been intubated) presents to the ED with 3 days of progressive SOB, wheezing, new cough with sputum production. Pt states he is admitted for COPD exacerbations every 1-2 months and todays SOB complaint feels similar quality and intensity as past COPD exacerbations. Pt is on 3L NC at home however pts has increased it to 4L for the past few days. Pt denies recent travel, sick contacts, F/C/N/V, body aches, CP, abdominal pain or changes in bowel or bladder habits. Pt has not tolerated Bipap well in the past but has tolerated high flow O2. Past History - Past Medical History Allergies/Adverse Reactions: Allergies Allergy/AdvReac Type Severity Reaction Status Date / Time No Known Allergies Allergy Verified 06/23/18 10:43 Home Medications: Ambulatory Orders Duloxetine HCl [Cymbalta -] 60 mg PO DAILY 11/08/17 Isosorbide Dinitrate [Isordil -] 20 mg PO BID 11/08/17 Pantoprazole Sodium [Protonix] 40 mg PO DAILY 11/08/17 Pregabalin [Lyrica] 100 mg PO TID 11/08/17 Tamsulosin HCl [Flomax] 0.4 mg PO HS 11/08/17 Albuterol 0.083% Nebulizer Suki [Ventolin 0.083% Nebulizer Soln -] 1 amp NEB Q6H PRN amp 12/10/17 Apixaban [Eliquis -] 2.5 mg PO BID #60 tablet 12/11/17 Budesonide/Formeterol Fumarate [SYMBICORT 160/4.5mcg -] 2 puff IH BID #1 inhaler 12/11/17 levETIRAcetam [Keppra -] 750 mg PO BID #45 tablet 12/26/17 Atorvastatin Ca [Lipitor] 10 mg PO HS 03/25/18 Prednisone 10 mg PO DAILY #21 tablet 05/22/18 Roflumilast [Daliresp -] 500 mcg PO DAILY #30 tablet 05/22/18 Ferrous Sulfate 325 mg PO DAILY 05/29/18 Metoprolol Succinate [Toprol XL -] 50 mg PO BID #60 tab.sr.24h MDD 2 06/02/18 Anemia: No Asthma: No Cancer: No Cardiac Disorders: Yes (STENTS 2001/STENT IN 2015) CVA: Yes (01/23/12/DURING TRIPLE AA REPAIR) COPD: Yes CHF: No 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) Diabetes: No GI Disorders: No Disorders: Yes (BPH) HTN: Yes Hypercholesterolemia: Yes Liver Disease: No Seizures: Yes Thyroid Disease: No - Surgical History Abdominal Surgery: Yes (S/P AAA) Appendectomy: No Cardiac Surgery: Yes (BYPASS 2013, PPM/ AAA REPAIR/2011) Cholecystectomy: No Lung Surgery: No Neurologic Surgery: No Orthopedic Surgery: No - Immunization History Immunization Up to Date: Yes - Suicide/Smoking/Psychosocial Hx Smoking History: Former smoker Have you smoked in the past 12 months: No If you are a former smoker, when did you quit?: 2008 Cigars Per Day: 0 Information on smoking cessation initiated: No Hx Alcohol Use: No Drug/Substance Use Hx: No Substance Use Type: None Hx Substance Use Treatment: No Review of Systems - Review of Systems Constitutional: No: Chills, Fever HEENTM: No: Ear Pain, Ear Discharge, Throat Pain Respiratory: Yes: Cough, Shortness of Breath, SOB with Exertion, Wheezing, Productive cough. No: Hemoptysis Cardiac (ROS): No: Chest Pain, Edema, Lightheadedness, Palpitations ABD/GI: No: Constipated, Diarrhea, Nausea, Vomiting : No: Burning, Dysuria, Frequency, Flank Pain Musculoskeletal: No: Back Pain Integumentary: No: Change in Color Neurological: No: Headache, Numbness, Tingling *Physical Exam - Vital Signs Last Vital Signs Temp Pulse Resp BP Pulse Ox 79 24 H 110/77 86 L 06/23/18 10:45 06/23/18 10:45 06/23/18 10:45 06/23/18 11:18 - Physical Exam General Appearance: Yes: Nourished, Appropriately Dressed, Apparent Distress ( unable to speak in full sentences) HEENT: positive: EOMI, ANT, Normal Voice, Pharynx Normal, Hearing Grossly Normal. negative: Tonsillar Exudate, Tonsillar Erythema, Nasal Congestion, Rhinorrhea, Sinus Tenderness, TM Erythema Neck: positive: Trachea midline, Supple. negative: Carotid bruit, Tender lateral, Tender midline Respiratory/Chest: positive: Accessory Muscle Use, Rapid RR, Wheezing (diffuse) Cardiovascular: positive: Regular Rhythm, Regular Rate, S1, S2. negative: Edema , JVD, Murmur Vascular Pulses: Dorsalis-Pedis (R): 4+, Doralis-Pedis (L): 4+ Gastrointestinal/Abdominal: positive: Flat, Soft. 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 negative: Confused, Disoriented ED Treatment Course - LABORATORY CBC & Chemistry Diagram: 06/26/18 06:00 06/26/18 06:00 - ADDITIONAL ORDERS Additional order review: Laboratory Results 06/23/18 06/23/18 11:33 11:33 PT with INR 15.50 H INR 1.31 H Sodium 142 Potassium 4.2 Chloride 107 Carbon Dioxide 28 Anion Gap 7 L BUN 19 H Creatinine 1.2 Creat Clearance w eGFR 58.40 Random Glucose 95 Calcium 8.4 L Magnesium 2.1 Total Bilirubin 0.3 AST 17 ALT 13 Alkaline Phosphatase 53 Creatine Kinase 42 Troponin I < 0.02 Total Protein 6.5 Albumin 3.4 06/23/18 11:33 RBC 5.11 MCV 88.6 MCHC 32.5 RDW 18.3 H MPV 9.3 Neutrophils % 86.0 H Lymphocytes % 8.7 Monocytes % 4.3 Eosinophils % 0.4 Basophils % 0.6 - Medications Given in the ED: ED Medications Discontinued Medications Generic Name Dose Route Start Last Admin Trade Name Freq PRN Reason Stop Dose Admin Albuterol/Ipratropium 1 amp 06/23/18 11:18 06/23/18 11:23 Duoneb - NEB 06/23/18 11:19 1 amp ONCE ONE Administration Methylprednisolone Sodium Succinate 125 mg 06/23/18 12:44 06/23/18 12:58 Solu-Medrol - IVPUSH 06/23/18 12:45 125 mg ONCE ONE Administration Medical Decision Making - Medical Decision Making 77 yo male pmh HTN, HLD, Afib (on Eliquis) CAD s/p stents, COPD (on 3L O2 at home, never been intubated) presents to the ED with 3 days of progressive SOB, wheezing, new cough with sputum production. Pt states he is admitted for COPD exacerbations every 1-2 months and todays SOB complaint feels similar quality and intensity as past COPD exacerbations. Pt denies recent travel, sick contacts , F/C/N/V, body aches, CP, abdominal pain or changes in bowel or bladder habits. Pt has not tolerated Bipap well in the past but has tolerated high flow O2. Pt found to be tachypneic, hypoxic in the high 80s on 4L NC on evaluation, not speaking in full sentences due to SOB/increased WOB (AOX3), using accessory muscles to breath along with diffuse wheezing. Pt placed on venti mask with increased O2 saturation into the mid 90s, given duo nebs, IV steroids and antibiotics. Pt continues to have diffuse wheezing with accessory muscle use, High flow O2 implemented and ICU consulted for admission due to necessary high flow o2 use along with acute respiratory failure. CBC and CMP WNL Influenza and strep neg ABG pH 7.4 and CO2 41 CXR negative for acute pathology Pt tolerating high flow well, stable at this time Spoke with Hospitalist who agrees to admission *DC/Admit/Observation/Transfer Diagnosis at time of Disposition: COPD exacerbation - Discharge Dispostion Condition at time of disposition: Stable Decision to Admit order: Yes - Referrals - Patient Instructions - Post Discharge Activity
--- NOTE | 2018-06-23 13:58 | PDOC ---
Attending Attestation - Resident Resident Name: Keny Kenney - ED Attending Attestation I have performed the following: I have examined & evaluated the patient, The case was reviewed & discussed with the resident, I agree w/resident's findings & plan - HPI HPI: 06/23/18 13:54 77y/o M history of CHF and COPD presents with progressive dyspnea on exertion, shortness of breath at rest despite home oxygen, and cough. No fevers or chills. - Physicial Exam PE: 06/23/18 13:54 Tachypnea, O2 sat 87% on baseline 3 L Alert, tachypneic Diffuse expiratory wheezing with prolonged expiration, bilateral crackles at the bases. abd benign - Critical Care Time Total Critical Care Time: 50 Critical Care Statement: The care of this patient involved high complexity decision making to prevent further life threatening deterioration of the patient 's condition and/or to evaluate & treat vital organ system(s) failure or risk of failure. - Medical Decision Making 06/23/18 13:55 77-year-old male with increased shortness of breath, seems more consistent with COPD exacerbation and CHF. No chest pain, afebrile. O2 sats are below baseline on oxygen, increased to high flow O2 and tolerated well with improved O2 sats labs are within normal limits, including troponin and influenza ABG Steroids increased to treatment dose admit to ICU for high-flow monitoring. Pt of Dr. Fleming and Flora 06/23/18 14:47 pH 7.4, pCO2 42. more comfortable on high-flow, sats 93%. given steroids, will add abx admitted to ICU for pulm management Heart Score/ECG Review #1 ECG reviewed & interpreted by me at: 13:45 General ECG Interpretation: Normal Rate (a-paced at 83, single PVC noted), Normal Intervals (qtc 500), No acute ischemic changes
[2018-06-23] MEDS ORDERED: FUROSEMIDE 40 MG/4 ML INJECTABLE VIAL IVPUSH ONE (14:08)
[2018-06-23] MEDS ORDERED: FUROSEMIDE 40 MG/4 ML INJECTABLE VIAL ONE (14:12)
[2018-06-23] MEDS ORDERED: PREGABALIN 100 MG CAPSULE PO ONE (14:26)
[2018-06-23] MEDS ORDERED: DULoxetine HCL 60 MG CAPSULE.DR PO ONE (14:26)
--- NOTE | 2018-06-23 14:26 | CONSULT ---
Consultation: REQUESTING PROVIDER: Dr. Escamilla CONSULT REQUEST: We have been asked to medically evaluate this patient for COPD exacerbation requiring high flow. HISTORY OF PRESENT ILLNESS: Patient is a 77 year old male with a PMHx of HTN, HLD, Atrial Fibrillation on Eliquis, PVD, CAD s/p stents, COPD on 3L home 02 who presented for worsening shortness of breath. Patient currently short of breath and unable to speak in full sentences. Patient states the shortness of breath worsened last night and today he was unable to speak in full sentences, which prompted this hospital visit. Patient endorses a one week history of rhinorrhea, body aches, green phlegm, and severe wheezing. Patient denies being around sick people and denies any recent travel. Otherwise, patient denies loss of consciousness, abdominal pain, chest pain, dizziness, dysuria, hematuria, hematochezia, hematemesis, hemoptysis. In the ED, patient was found to have hypoxia in the 80's and was placed on High flow. Patient was given Albuterol/Ipratropium neb, IV methylprednisone, and azithromycin. Patient's saturation improved and was downgraded to a ventimask. However, patient started having accessory muscle use with wheezing and placed back on high flow oxygen therapy. Consult requested for ICU evaluation due to acute hypoxic respiratory failure, requiring HFOT. 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 COPD on home oxygen (3L) PAST SURGICAL HISTORY: right knee s/p ORIF right femur tamara placement s/p fracture - had infection took antibiotics for a year Thoracic aortic aneursym repair CAD s/p CABG s/p stents pacemaker Social History: Smoking: former smoker quit 2006 Alcohol: denies Drugs: denies Lives with REVIEW OF SYSTEMS: CONSTITUTIONAL: generalized weakness, malaise Absent: fever, chills, diaphoresis, loss of appetite, weight change HEENT: rhinorrhea, nasal congestion Absent: throat pain, throat swelling, difficulty swallowing, mouth swelling, ear pain, eye pain, visual changes CARDIOVASCULAR: Absent: chest pain, syncope, palpitations, irregular heart rate, lightheadedness , peripheral edema RESPIRATORY: cough, shortness of breath, dyspnea with exertion, orthopnea, wheezing Absent: stridor, hemoptysis GASTROINTESTINAL: Absent: abdominal pain, abdominal distension, nausea, vomiting, diarrhea, constipation, melena, hematochezia GENITOURINARY: Absent: dysuria, frequency, urgency, hesitancy, hematuria, flank pain, genital pain MUSCULOSKELETAL: Absent: myalgia, arthralgia, joint swelling, back pain, neck pain SKIN: Absent: rash, itching, pallor HEMATOLOGIC/IMMUNOLOGIC: Absent: easy bleeding, easy bruising, lymphadenopathy, frequent infections ENDOCRINE: Absent: unexplained weight gain, unexplained weight loss, heat intolerance, cold intolerance NEUROLOGIC: Absent: headache, focal weakness or paresthesias, dizziness, unsteady gait, seizure, mental status changes, bladder or bowel incontinence PSYCHIATRIC: Absent: anxiety, depression, suicidal or homicidal ideation, hallucinations. PHYSICAL EXAMINATION Vital Signs 06/23/18 06/23/18 06/23/18 10:45 11:18 14:18 Pulse Rate 79 Respiratory 24 H 23 H Rate Blood Pressure 110/77 Blood Pressure 135/80 [Right Arm] O2 Sat by Pulse 98 86 L 95 Oximetry (%) GENERAL: Awake, alert, and fully oriented, in respiratory distress on Venti- Mask HEAD: Normal with no signs of trauma. EYES: PERRL, sclera anicteric, conjunctiva clear. EARS, NOSE, THROAT: Dry mucous membranes NECK: (-) lymphadenopathy, JVD, or masses. LUNGS: Decreased breath sounds on inspiration bilaterally and expiratory wheezing bilaterally. Accessory muscle use on venti-mask. HEART: Regular rate and irregularly irregular rhythm (paced), normal S1 and S2 ABDOMEN: Soft, nontender, not distended, normoactive bowel sounds, no guarding, no rebound, no masses. No hepatomegaly or splenomegaly. EXTREMITIES: 2+ pulses, warm, well-perfused. No calf tenderness. No peripheral edema. NEUROLOGICAL: No facial droop. Normal speech, gait not observed. PSYCHIATRIC: Cooperative. Good eye contact. Appropriate mood and affect. SKIN: Warm, dry, normal turgor, no rashes or lesions noted. Laboratory Results 06/23/18 11:33 06/23/18 11:33 06/23/18 06/23/18 11:56 11:56 Influenza A (Rapid) Negative Influenza B (Rapid) Negative Group A Strep Rapid Negative ABG pH 7.43 (7.35-7.45) 06/23/18 14:20 ABG pCO2 at Pt Temp 41.9 mmHg (35-45) 06/23/18 14:20 ABG pO2 at Pt Temp 64.5 mmHg (80-105) L 06/23/18 14:20 ABG HCO3 27.5 mmol/L (22-27) H 06/23/18 14:20 ABG O2 Sat (Measured) 90.9 % (95-98) L 06/23/18 14:20 ABG O2 Content 17.8 % vol (15-22) 06/23/18 14:20 ABG Base Excess 3.4 meq/l (-2-2) H 06/23/18 14:20 Urine Test Results Urine Color Yellow 06/23/18 14:15 Urine Appearance Clear 06/23/18 14:15 Urine pH 5.0 (5.0-8.0) 06/23/18 14:15 Ur Specific [place] 1.013 (1.010-1.035) 06/23/18 14:15 Urine Protein Negative (NEGATIVE) 06/23/18 14:15 Urine Glucose (UA) Negative (NEGATIVE) 06/23/18 14:15 Urine Ketones Negative (NEGATIVE) 06/23/18 14:15 Urine Blood 1+ (NEGATIVE) H 06/23/18 14:15 Urine Nitrite Negative (NEGATIVE) 06/23/18 14:15 Urine Bilirubin Negative (NEGATIVE) 06/23/18 14:15 Ur Leukocyte Esterase Negative (NEGATIVE) 06/23/18 14:15 ASSESSMENT/PLAN: Patient is a 77 year old male who presented for shortness of breath, wheezing, and was found to have acute hypoxic respiratory failure requiring high flow oxygen therapy. Patient admitted to ICU for further monitoring and management. NEURO: -Awake, alert, and oriented -Requires no sedation #Seizure disorder -Continue home medication Levetiracetam 750mg BID #Depression/History of Aggressive Behavior -Continue home medication Duloxetine 60mg daily PULMONARY: #Acute Hypoxic Respiratory Failure -Likely secondary to COPD exacerbation -Patient on 3L oxygen at home and is requiring High Flow oxygen therapy -Influenza and strep negative -Albuterol/Ipratropium neb standing Q8H and Albuterol Q4H prn -IV Methylprednisone 60mg Q8H -Azithromycin 500mg IV daily -Maintain 02 saturation >90% #COPD -Patient on 3L oxygen at home and prednisone 40mg daily chronically but will switch to IV -Currently on Budesonide/Formeterol 2 puff BID at home but will hold for now and keep patient on Albuterol/Ipratropium neb standing Q8H -Continue Rofluminast 500 mcg po daily -HFOT to Maintain 02 saturation >90% CARDIO: #Atrial Fibrillation on Eliquis -Currently not in RVR -Continue home medication Eliquis 2.5mg BID #CAD s/p CABG s/p 2 stents -Continue home medication Metoprolol Succinate 50mg BID po -Continue Atorvastatin 10mg HS -Cardiology consult placed. #HTN -Continue home medications Metoprolol Succinate 50mg BID po -Continue to monitor BP #HLD -Continue Atorvastatin 10mg HS ENDOCRINOLOGY: #NIDDMII with Peripheral Neuropathy -Continue Pregabalin 100mg TID po -BGM -ISS -Last A1C 6.1% (05/30/18) : #BPH -Continue Tamsulosin 0.4mg daily F/E/N -On no fluids -Electrolytes wnl -NPO until respiratory status improves Prophylaxis -High risk. Eliquis 2.5mg po BID for DVT -Protonix 40mg IVP for GI as patient is on steroids Disposition -DNR/DNI according to records. -Will require ICU monitoring to due to respiratory monitoring and he is on HFOT Cat Bassett [id number] Visit type - Emergency Visit Emergency Visit: Yes ED Registration Date: 06/23/18 Care time: The patient presented to the Emergency Department on the above date and was hospitalized for further evaluation of their emergent condition. - New Patient This patient is new to me today: Yes Date on this admission: 06/23/18 - Critical Care Critical Care patient: Yes Total Critical Care Time (in minutes): 36 Critical Care Statement: The care of this patient involved high complexity decision making to prevent further life threatening deterioration of the patient 's condition and/or to evaluate & treat vital organ system(s) failure or risk of failure.
[2018-06-23] MEDS ORDERED: PREGABALIN 100 MG CAPSULE ONE ×2 (14:27→23:26)
[2018-06-23] MEDS ORDERED: DULoxetine HCL 30 MG CAPSULE.DR (FP) PO ONE (14:28)
[2018-06-23] MEDS ORDERED: AZITHROMYCIN IVPB 500 MG in DEXTROSE 5%-WATER - 250 ML IVPB ONE (14:32)
[2018-06-23 14:34] LABS: EPI CELLS 0.1 /HPF (0-5); URINE APPEARANCE CLEAR; URINE BACTERIA 0.7 /hpf (NEGATIVE); URINE BILIRUBIN NEGATIVE (NEGATIVE); URINE CASTS 0 /hpf (0-8); URINE COLOR YELLOW; URINE GLUCOSE (UA) NEGATIVE (NEGATIVE); URINE KETONE NEGATIVE (NEGATIVE); URINE LEUK ESTERASE NEGATIVE (NEGATIVE); URINE NITRITE NEGATIVE (NEGATIVE); URINE PROTEIN NEGATIVE (NEGATIVE); URINE RBC 2 /hpf (0-4); URINE UROBILINOGEN 0.2 mg/dL (0.2-1.0); URINE WBC 0 /hpf (0-5)
[2018-06-23 14:38] LABS: ARTERIAL BLD GAS O2 SATURATION 90.9 % (95-98); ARTERIAL BLOOD GAS BASE EXCESS 3.4 meq/l (-2-2); ARTERIAL BLOOD GAS PCO2 41.9 mmHg (35-45); ARTERIAL BLOOD GAS PO2 64.5 mmHg (80-105); ARTERIAL BLOOD GAS pH 7.43 (7.35-7.45); CARBOXYHEMOGLOBIN 0.7 % (0-2)
[2018-06-23 14:40] LABS: ALLENS TEST POSITIVE
--- NOTE | 2018-06-23 14:53 | HP ---
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 , paroxysmal A-fib ( on Eliquis), seizure dx , who presents with cough and shortness of breath for last 4 days.per he has been coughing with yellowish green sputum and complaining of shortness of breath for last few days she gave him cough medicine but no help and she said yesterday he stayed in bed all day bc he was weak and today she brought him to the ER in ER he found to be tachypneic put on high flow oxygen and saturation improved then changed to 10litres of nasal canula saturating in low 90's got solumedrol and iv azithromycin and lasix History Source: Family Member - 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 No: Renal Failure Musculoskeletal: Yes: Osteoarthritis - Past Surgical History Past Surgical History: Yes: AAA Repair, Permanent Pacemaker - Smoking History Smoking history: Former smoker Have you smoked in the past 12 months: No If you are a former smoker, when did you quit?: 2007 - Alcohol/Substance Use Hx Alcohol Use: No History of Substance Use: reports: None - Social History ADL: Family Assistance History of Recent Travel: No Home Medications - Allergies Allergies/Adverse Reactions: Allergies Allergy/AdvReac Type Severity Reaction Status Date / Time No Known Allergies Allergy Verified 06/23/18 10:43 - Home Medications Home Medications: Ambulatory Orders Duloxetine HCl [Cymbalta -] 60 mg PO DAILY 11/08/17 Isosorbide Dinitrate [Isordil -] 20 mg PO BID 11/08/17 Pantoprazole Sodium [Protonix] 40 mg PO DAILY 11/08/17 Pregabalin [Lyrica] 100 mg PO TID 11/08/17 Tamsulosin HCl [Flomax] 0.4 mg PO HS 11/08/17 Albuterol 0.083% Nebulizer Suki [Ventolin 0.083% Nebulizer Soln -] 1 amp NEB Q6H PRN amp 12/10/17 Apixaban [Eliquis -] 2.5 mg PO BID #60 tablet 12/11/17 Budesonide/Formeterol Fumarate [SYMBICORT 160/4.5mcg -] 2 puff IH BID #1 inhaler 12/11/17 levETIRAcetam [Keppra -] 750 mg PO BID #45 tablet 12/26/17 Atorvastatin Ca [Lipitor] 10 mg PO HS 03/25/18 Prednisone 10 mg PO DAILY #21 tablet 05/22/18 Roflumilast [Daliresp -] 500 mcg PO DAILY #30 tablet 05/22/18 Ferrous Sulfate 325 mg PO DAILY 05/29/18 Metoprolol Succinate [Toprol XL -] 50 mg PO BID #60 tab.sr.24h MDD 2 06/02/18 Physical Examination Vital Signs: Vital Signs Temperature Pulse Rate 79 06/23/18 10:45 Respiratory Rate 23 H 06/23/18 14:18 Blood Pressure 135/80 06/23/18 14:18 O2 Sat by Pulse Oximetry (%) 95 06/23/18 14:18 Labs: CBC, BMP 06/23/18 11:33 06/23/18 11:33 Problem List - Problems (1) COPD exacerbation Assessment/Plan: high flow oxygen iv abx nebuizers solumedrol icu monitoring dvt ppx pulm consult Code(s): J44.1 - CHRONIC OBSTRUCTIVE PULMONARY DISEASE W (ACUTE) EXACERBATION Assessment/Plan afib eliquis toprol xl cardiology consult cardiac monitoring seizure keprra 750mg po bid ischemic cardiomyopathy s/p ppm was interrogated on last admission BPH on flomax
--- NOTE | 2018-06-23 15:01 | HP ---
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 No: Renal Failure Musculoskeletal: Yes: Osteoarthritis - Past Surgical History Past Surgical History: Yes: AAA Repair, Permanent Pacemaker - Smoking History Smoking history: Former smoker Have you smoked in the past 12 months: No If you are a former smoker, when did you quit?: 2008 - Alcohol/Substance Use Hx Alcohol Use: No History of Substance Use: reports: None - Social History ADL: Family Assistance History of Recent Travel: No Home Medications - Allergies Allergies/Adverse Reactions: Allergies Allergy/AdvReac Type Severity Reaction Status Date / Time No Known Allergies Allergy Verified 06/23/18 10:43 - Home Medications Home Medications: Ambulatory Orders Duloxetine HCl [Cymbalta -] 60 mg PO DAILY 11/08/17 Isosorbide Dinitrate [Isordil -] 20 mg PO BID 11/08/17 Pantoprazole Sodium [Protonix] 40 mg PO DAILY 11/08/17 Pregabalin [Lyrica] 100 mg PO TID 11/08/17 Tamsulosin HCl [Flomax] 0.4 mg PO HS 11/08/17 Albuterol 0.083% Nebulizer Suki [Ventolin 0.083% Nebulizer Soln -] 1 amp NEB Q6H PRN amp 12/10/17 Apixaban [Eliquis -] 2.5 mg PO BID #60 tablet 12/11/17 Budesonide/Formeterol Fumarate [SYMBICORT 160/4.5mcg -] 2 puff IH BID #1 inhaler 12/11/17 levETIRAcetam [Keppra -] 750 mg PO BID #45 tablet 12/26/17 Atorvastatin Ca [Lipitor] 10 mg PO HS 03/25/18 Prednisone 10 mg PO DAILY #21 tablet 05/22/18 Roflumilast [Daliresp -] 500 mcg PO DAILY #30 tablet 05/22/18 Ferrous Sulfate 325 mg PO DAILY 05/29/18 Metoprolol Succinate [Toprol XL -] 50 mg PO BID #60 tab.sr.24h MDD 2 06/02/18 Physical Examination Vital Signs: Vital Signs Temperature Pulse Rate 76 06/23/18 14:52 Respiratory Rate 23 H 06/23/18 14:18 Blood Pressure 135/80 06/23/18 14:18 O2 Sat by Pulse Oximetry (%) 93 L 06/23/18 14:52 Labs: CBC, BMP 06/23/18 11:33 06/23/18 11:33
[2018-06-23] MEDS ORDERED: ACETAMINOPHEN 325 MG TABLET (FP) PO PRN (15:44)
[2018-06-23] MEDS ORDERED: ALBUTEROL SO4 0.083% IH SOL 2.5 MG/3 ML VIAL.NEB. NEB PRN ×2 (15:44→16:00)
[2018-06-23] MEDS ORDERED: AZITHROMYCIN IVPB 500 MG/250 ML BAG IVPB ONE (16:26)
[2018-06-23] MEDS: ALBUTEROL SO4 2.5/IPRATROPIUM 0.5 INH SOL 3 ML VIAL.NEB. NEB SCH ×2 (17:05→20:36)
--- NOTE | 2018-06-23 17:39 | CON.CARD ---
Cardiology Consult (text) - Consultation Consultation Note: cc: sob hpi: 77 m hx multiple aneurysms including a 5.1 cm stable thoracic aneurysm, CAD s/p PCI and ischemic Cardiomyopathy requiring LITHOGRAPHED PLATE INSPECTOR-P (refused ICD), PAF on correction NOAC therapy,severe COPD on O2, here with sob. Past 3 days with worse sob, felt like his copd. No cp palps dizzy loc pnd orthopnea le edema. pmh: per hpi psh: pci social: no tob fam: no premature cad ros: per hpi; +cough, no nvd fever gib dysruia; all others normal meds: Home Medications Medication Instructions Recorded Duloxetine HCl [Cymbalta -] 60 mg PO DAILY 11/08/17 Isosorbide Dinitrate [Isordil -] 20 mg PO BID 11/08/17 Pantoprazole Sodium [Protonix] 40 mg PO DAILY 11/08/17 Pregabalin [Lyrica] 100 mg PO TID 11/08/17 Tamsulosin HCl [Flomax] 0.4 mg PO HS 11/08/17 Albuterol 0.083% Nebulizer Suki 1 amp NEB Q6H PRN amp 12/10/17 [Ventolin 0.083% Nebulizer Soln -] Apixaban [Eliquis -] 2.5 mg PO BID #60 tablet 12/11/17 Budesonide/Formeterol Fumarate 2 puff IH BID #1 inhaler 12/11/17 [SYMBICORT 160/4.5mcg -] levETIRAcetam [Keppra -] 750 mg PO BID #45 tablet 12/26/17 Atorvastatin Ca [Lipitor] 10 mg PO HS 03/25/18 Prednisone 10 mg PO DAILY #21 tablet 05/22/18 Roflumilast [Daliresp -] 500 mcg PO DAILY #30 tablet 05/22/18 Ferrous Sulfate 325 mg PO DAILY 05/29/18 Metoprolol Succinate [Toprol XL -] 50 mg PO BID #60 tab.sr.24h MDD 2 06/02/18 pe: Vital Signs Period Temp Pulse Resp BP Sys/Varghese Pulse Ox Last 24 Hr 76-79 23-24 110-135/77-80 86-98 nad no jvd rrr s1s2 no mrg bl exp wheeze, nl eff aaox3 no le e/c/c abd nt nd pos bs no jaundice diaphoresis pos dp pt no carotid bruits Laboratory Last Values WBC 6.9 K/mm3 (4.0-10.0) 06/23/18 11:33 RBC 5.11 M/mm3 (4.00-5.60) 06/23/18 11:33 Hgb 14.7 GM/dL (11.7-16.9) 06/23/18 11:33 Hct 45.3 % (35.4-49) 06/23/18 11:33 MCV 88.6 fl (80-96) 06/23/18 11:33 MCH 28.8 pg (25.7-33.7) 06/23/18 11:33 MCHC 32.5 g/dl (32.0-35.9) 06/23/18 11:33 RDW 18.3 % (11.9-15.9) H 06/23/18 11:33 Plt Count 148 K/MM3 (134-434) 06/23/18 11:33 MPV 9.3 fl (7.5-11.1) 06/23/18 11:33 Absolute Neuts (auto) 5.9 K/mm3 (1.5-8.0) 06/23/18 11:33 Neutrophils % 86.0 % (42.8-82.8) H 06/23/18 11:33 Lymphocytes % 8.7 % (8-40) 06/23/18 11:33 Monocytes % 4.3 % (3.8-10.2) 06/23/18 11:33 Eosinophils % 0.4 % (0-4.5) 06/23/18 11:33 Basophils % 0.6 % (0-2.0) 06/23/18 11:33 Nucleated RBC % 0 % (0-0) 06/23/18 11:33 PT with INR 15.50 SEC (9.7-13.0) H 06/23/18 11:33 INR 1.31 (0.83-1.09) H 06/23/18 11:33 Anticoagulation Therapy No Result Required. 06/23/18 14:20 Puncture Site Right radial 06/23/18 14:20 ABG pH 7.43 (7.35-7.45) 06/23/18 14:20 ABG pCO2 at Pt Temp 41.9 mmHg (35-45) 06/23/18 14:20 ABG pO2 at Pt Temp 64.5 mmHg (80-105) L 06/23/18 14:20 ABG HCO3 27.5 mmol/L (22-27) H 06/23/18 14:20 ABG O2 Sat (Measured) 90.9 % (95-98) L 06/23/18 14:20 ABG O2 Content 17.8 % vol (15-22) 06/23/18 14:20 ABG Base Excess 3.4 meq/l (-2-2) H 06/23/18 14:20 Aristides Test Positive 06/23/18 14:20 Carboxyhemoglobin 0.7 % (0-2) 06/23/18 14:20 Methemoglobin 0.6 % (0-2) 06/23/18 14:20 O2 Delivery Device No Result Required. 06/23/18 14:20 Oxygen Flow Rate Yes 06/23/18 14:20 Vent Mode No Result Required. 06/23/18 14:20 Vent Rate No Result Required. 06/23/18 14:20 Mechanical Rate No Result Required. 06/23/18 14:20 Pressure Support Vent No Result Required. 06/23/18 14:20 Sodium 142 mmol/L (136-145) 06/23/18 11:33 Potassium 4.2 mmol/L (3.5-5.1) 06/23/18 11:33 Chloride 107 mmol/L (98-107) 06/23/18 11:33 Carbon Dioxide 28 mmol/L (21-32) 06/23/18 11:33 Anion Gap 7 MMOL/L (8-16) L 06/23/18 11:33 BUN 19 mg/dL (7-18) H 06/23/18 11:33 Creatinine 1.2 mg/dL (0.55-1.3) 06/23/18 11:33 Creat Clearance w eGFR 58.40 (>60) 06/23/18 11:33 Random Glucose 95 mg/dL (74-106) 06/23/18 11:33 Calcium 8.4 mg/dL (8.5-10.1) L 06/23/18 11:33 Magnesium 2.1 mg/dL (1.8-2.4) 06/23/18 11:33 Total Bilirubin 0.3 mg/dL (0.2-1) 06/23/18 11:33 AST 17 U/L (15-37) 06/23/18 11:33 ALT 13 U/L (13-61) 06/23/18 11:33 Alkaline Phosphatase 53 U/L (45-117) 06/23/18 11:33 Creatine Kinase 42 U/L (26-308) 06/23/18 11:33 Troponin I < 0.02 ng/ml (0.00-0.05) 06/23/18 11:33 Total Protein 6.5 g/dl (6.4-8.2) 06/23/18 11:33 Albumin 3.4 g/dl (3.4-5.0) 06/23/18 11:33 Urine Color Yellow 06/23/18 14:15 Urine Appearance Clear 06/23/18 14:15 Urine pH 5.0 (5.0-8.0) 06/23/18 14:15 Ur Specific [place] 1.013 (1.010-1.035) 06/23/18 14:15 Urine Protein Negative (NEGATIVE) 06/23/18 14:15 Urine Glucose (UA) Negative (NEGATIVE) 06/23/18 14:15 Urine Ketones Negative (NEGATIVE) 06/23/18 14:15 Urine Blood 1+ (NEGATIVE) H 06/23/18 14:15 Urine Nitrite Negative (NEGATIVE) 06/23/18 14:15 Urine Bilirubin Negative (NEGATIVE) 06/23/18 14:15 Urine Urobilinogen 0.2 mg/dL (0.2-1.0) 06/23/18 14:15 Ur Leukocyte Esterase Negative (NEGATIVE) 06/23/18 14:15 Urine WBC (Auto) 0 /hpf (0-5) 06/23/18 14:15 Urine RBC (Auto) 2 /hpf (0-4) 06/23/18 14:15 Urine Casts (Auto) 0 /hpf (0-8) 06/23/18 14:15 U Epithel Cells (Auto) 0.1 /HPF (0-5) 06/23/18 14:15 Urine Bacteria (Auto) 0.7 /hpf (NEGATIVE) 06/23/18 14:15 Influenza A (Rapid) Negative 06/23/18 11:56 Influenza B (Rapid) Negative 06/23/18 11:56 Group A Strep Rapid Negative 06/23/18 11:56 ecg: sr, as-vp compliance cxr: clear lungs a/p: 77 m hx multiple aneurysms including a 5.1 cm stable thoracic aneurysm, CAD s/p PCI and ischemic Cardiomyopathy requiring LITHOGRAPHED PLATE INSPECTOR-P (refused ICD), PAF on ferry terminal agent NOAC therapy,severe COPD on O2, here with sob. sob, copd: -no signs acs or chf, seems like acute copd, continue tx per pulm cad s/p pci: -stable -cont statin, bb, ac chronic sys chf: -s/p client account assistant pacer -stable vol status off diuretics, monitor vol status with iv steroids -prior echos here are nondiagnostic, will attempt repeat study -cont bb pafib: -stable, cont bb and eliquis peric eff: -prior outpt echo reported moderate to large pericardial effusion, localized. He had no indications of tamponade then (04/2018) and none now. Will attempt repeat echo to monitor effusion.
[2018-06-23] MEDS ORDERED: methylPREDNISolone NA SUCC 40 MG/1 ML VIAL IVPB SCH (18:00)
[2018-06-23] MEDS: methylPREDNISolone NA SUCC 40 MG/1 ML VIAL IVPB SCH (18:05)
[2018-06-23] MEDS ORDERED: methylPREDNISolone NA SUCC 40 MG/1 ML VIAL ONE (18:08)
[2018-06-23] MEDS: ATORVASTATIN CA 10 MG TABLET (FP) PO SCH (23:32)
[2018-06-23] MEDS: PREGABALIN 100 MG CAPSULE PO SCH (23:32)
[2018-06-23] MEDS: APIXABAN 2.5 MG TABLET PO SCH (23:32)
[2018-06-23] MEDS: levETIRAcetam 500 MG TABLET (FP) PO SCH (23:32)
[2018-06-24] MEDS: ALBUTEROL SO4 2.5/IPRATROPIUM 0.5 INH SOL 3 ML VIAL.NEB. NEB SCH ×7 (00:22→23:39)
[2018-06-24] MEDS: methylPREDNISolone NA SUCC 40 MG/1 ML VIAL IVPB SCH ×3 (03:00→17:47)
[2018-06-24 03:17] VITALS: BMI 23.0
[2018-06-24 06:09] LABS: BASO % 0.1 % (0-2.0); HEMATOCRIT 44.6 % (35.4-49); HEMOGLOBIN 14.5 GM/dL (11.7-16.9); LYMPH % 7.8 % (8-40); MCH 28.1 pg (25.7-33.7); MCHC 32.5 g/dl (32.0-35.9); MEAN CELL VOLUME 86.6 fl (80-96); MEAN PLT VOLUME 9.5 fl (7.5-11.1); MONO % 4.3 % (3.8-10.2); NEUT % 87.8 % (42.8-82.8); PLATELET COUNT 172 K/MM3 (134-434); RBC 5.15 M/mm3 (4.00-5.60); RDW 18.2 % (11.9-15.9); WHITE BLOOD COUNT 4.9 K/mm3 (4.0-10.0)
[2018-06-24 06:21] LABS: INR 1.31 (0.83-1.09); PROTHROMBIN TIME (PATIENT) 15.5 SEC (9.7-13.0)
[2018-06-24 06:24] LABS: ACTIVATED PTT 44.7 SECONDS (25.2-36.5)
[2018-06-24] MEDS: PREGABALIN 100 MG CAPSULE PO SCH ×4 (06:31→23:27)
[2018-06-24 06:48] LABS: ALBUMIN 3.2 g/dl (3.4-5.0); ALK PHOS 49 U/L (45-117); ANION GAP 8 MMOL/L (8-16); BILIRUBIN,TOTAL 0.4 mg/dL (0.2-1); BLOOD UREA NITROGEN 25 mg/dL (7-18); CALCIUM 8.7 mg/dL (8.5-10.1); CHLORIDE 103 mmol/L (98-107); CO2 28 mmol/L (21-32); CREATININE 1.1 mg/dL (0.55-1.3); GLUCOSE,RANDOM 113 mg/dL (74-106); MAGNESIUM 2.2 mg/dL (1.8-2.4); N-TERMINAL BNP 2817.9 pg/ml (5-450); PHOSPHOROUS 4.1 mg/dL (2.5-4.9); POTASSIUM 3.9 mmol/L (3.5-5.1); SGOT/AST 8 U/L (15-37); SGPT/ALT 12 U/L (13-61); SODIUM 139 mmol/L (136-145); TOT PROT 6.4 g/dl (6.4-8.2)
--- NOTE | 2018-06-24 07:21 | PN ---
Physical Exam: SUBJECTIVE: Patient seen and examined at bedside, reported improving shortness of breath, presence of productive cough. Pt denied chest pain, lower extremity swelling. OBJECTIVE: Vital Signs Period Temp Pulse Resp BP Sys/Varghese Pulse Ox Last 24 Hr 98.2 F-98.4 F 63-79 16-26 108-161/58-98 86-98 GENERAL: The patient is awake, alert, and fully oriented, in no acute distress. HEAD: Normal with no signs of trauma. EYES: PERRL, extraocular movements intact, sclera anicteric, conjunctiva clear. No ptosis. ENT: Ears normal, nares patent, oropharynx clear without exudates, moist mucous membranes. NECK: Trachea midline, full range of motion, supple. LUNGS: Breath sounds equal, bibasilar crackles, no wheezing, no rhonchi, no stridor. speaking full sentences. HEART: Regular rate and rhythm, S1, S2 without murmur, rub or gallop. ABDOMEN: Soft, nontender, nondistended, normoactive bowel sounds, no guarding, no rebound, no hepatosplenomegaly, no masses. EXTREMITIES: 2+ pulses, warm, well-perfused, no edema. NEUROLOGICAL: Cranial nerves II through XII grossly intact. Normal speech, gait not observed. PSYCH: Normal mood, normal affect. SKIN: Warm, dry, normal turgor, no rashes or lesions noted Laboratory Results - last 24 hr 06/23/18 06/23/18 06/23/18 11:33 11:33 11:33 WBC 6.9 RBC 5.11 Hgb 14.7 Hct 45.3 MCV 88.6 MCH 28.8 MCHC 32.5 RDW 18.3 H Plt Count 148 MPV 9.3 Absolute Neuts (auto) 5.9 Neutrophils % 86.0 H Lymphocytes % 8.7 Monocytes % 4.3 Eosinophils % 0.4 Basophils % 0.6 Nucleated RBC % 0 PT with INR 15.50 H INR 1.31 H PTT (Actin FS) Anticoagulation Therapy Puncture Site ABG pH ABG pCO2 at Pt Temp ABG pO2 at Pt Temp ABG HCO3 ABG O2 Sat (Measured) ABG O2 Content ABG Base Excess Aristides Test Carboxyhemoglobin Methemoglobin O2 Delivery Device Oxygen Flow Rate Vent Mode Vent Rate Mechanical Rate Pressure Support Vent Sodium 142 Potassium 4.2 Chloride 107 Carbon Dioxide 28 Anion Gap 7 L BUN 19 H Creatinine 1.2 Creat Clearance w eGFR 58.40 Random Glucose 95 Calcium 8.4 L Phosphorus Magnesium 2.1 Total Bilirubin 0.3 AST 17 ALT 13 Alkaline Phosphatase 53 Creatine Kinase 42 Troponin I < 0.02 B-Natriuretic Peptide Total Protein 6.5 Albumin 3.4 Urine Color Urine Appearance Urine pH Ur Specific Bayard Urine Protein Urine Glucose (UA) Urine Ketones Urine Blood Urine Nitrite Urine Bilirubin Urine Urobilinogen Ur Leukocyte Esterase Urine WBC (Auto) Urine RBC (Auto) Urine Casts (Auto) U Epithel Cells (Auto) Urine Bacteria (Auto) Influenza A (Rapid) Influenza B (Rapid) Group A Strep Rapid 06/23/18 06/23/18 06/23/18 11:56 11:56 14:15 WBC RBC Hgb Hct MCV MCH MCHC RDW Plt Count MPV Absolute Neuts (auto) Neutrophils % Lymphocytes % Monocytes % Eosinophils % Basophils % Nucleated RBC % PT with INR INR PTT (Actin FS) Anticoagulation Therapy Puncture Site ABG pH ABG pCO2 at Pt Temp ABG pO2 at Pt Temp ABG HCO3 ABG O2 Sat (Measured) ABG O2 Content ABG Base Excess Aristides Test Carboxyhemoglobin Methemoglobin O2 Delivery Device Oxygen Flow Rate Vent Mode Vent Rate Mechanical Rate Pressure Support Vent Sodium Potassium Chloride Carbon Dioxide Anion Gap BUN Creatinine Creat Clearance w eGFR Random Glucose Calcium Phosphorus Magnesium Total Bilirubin AST ALT Alkaline Phosphatase Creatine Kinase Troponin I B-Natriuretic Peptide Total Protein Albumin Urine Color Yellow Urine Appearance Clear Urine pH 5.0 Ur Specific Bayard 1.013 Urine Protein Negative Urine Glucose (UA) Negative Urine Ketones Negative Urine Blood 1+ H Urine Nitrite Negative Urine Bilirubin Negative Urine Urobilinogen 0.2 Ur Leukocyte Esterase Negative Urine WBC (Auto) 0 Urine RBC (Auto) 2 Urine Casts (Auto) 0 U Epithel Cells (Auto) 0.1 Urine Bacteria (Auto) 0.7 Influenza A (Rapid) Negative Influenza B (Rapid) Negative Group A Strep Rapid Negative 06/23/18 06/24/18 06/24/18 14:20 05:30 05:30 WBC 4.9 RBC 5.15 Hgb 14.5 Hct 44.6 MCV 86.6 MCH 28.1 MCHC 32.5 RDW 18.2 H Plt Count 172 MPV 9.5 Absolute Neuts (auto) 4.3 Neutrophils % 87.8 H Lymphocytes % 7.8 L Monocytes % 4.3 Eosinophils % 0.0 D Basophils % 0.1 Nucleated RBC % 0 PT with INR 15.50 H INR 1.31 H PTT (Actin FS) 44.7 H Anticoagulation Therapy No Result Required. Puncture Site Right radial ABG pH 7.43 ABG pCO2 at Pt Temp 41.9 ABG pO2 at Pt Temp 64.5 L ABG HCO3 27.5 H ABG O2 Sat (Measured) 90.9 L ABG O2 Content 17.8 ABG Base Excess 3.4 H Aristides Test Positive Carboxyhemoglobin 0.7 Methemoglobin 0.6 O2 Delivery Device No Result Required. Oxygen Flow Rate Yes Vent Mode No Result Required. Vent Rate No Result Required. Mechanical Rate No Result Required. Pressure Support Vent No Result Required. Sodium Potassium Chloride Carbon Dioxide Anion Gap BUN Creatinine Creat Clearance w eGFR Random Glucose Calcium Phosphorus Magnesium Total Bilirubin AST ALT Alkaline Phosphatase Creatine Kinase Troponin I B-Natriuretic Peptide Total Protein Albumin Urine Color Urine Appearance Urine pH Ur Specific Bayard Urine Protein Urine Glucose (UA) Urine Ketones Urine Blood Urine Nitrite Urine Bilirubin Urine Urobilinogen Ur Leukocyte Esterase Urine WBC (Auto) Urine RBC (Auto) Urine Casts (Auto) U Epithel Cells (Auto) Urine Bacteria (Auto) Influenza A (Rapid) Influenza B (Rapid) Group A Strep Rapid 06/24/18 05:30 WBC RBC Hgb Hct MCV MCH MCHC RDW Plt Count MPV Absolute Neuts (auto) Neutrophils % Lymphocytes % Monocytes % Eosinophils % Basophils % Nucleated RBC % PT with INR INR PTT (Actin FS) Anticoagulation Therapy Puncture Site ABG pH ABG pCO2 at Pt Temp ABG pO2 at Pt Temp ABG HCO3 ABG O2 Sat (Measured) ABG O2 Content ABG Base Excess Aristides Test Carboxyhemoglobin Methemoglobin O2 Delivery Device Oxygen Flow Rate Vent Mode Vent Rate Mechanical Rate Pressure Support Vent Sodium 139 Potassium 3.9 Chloride 103 Carbon Dioxide 28 Anion Gap 8 BUN 25 H Creatinine 1.1 Creat Clearance w eGFR 64.57 Random Glucose 113 H Calcium 8.7 Phosphorus 4.1 Magnesium 2.2 Total Bilirubin 0.4 AST 8 L ALT 12 L Alkaline Phosphatase 49 Creatine Kinase 25 L Troponin I < 0.02 B-Natriuretic Peptide 2817.9 H Total Protein 6.4 Albumin 3.2 L Urine Color Urine Appearance Urine pH Ur Specific Bayard Urine Protein Urine Glucose (UA) Urine Ketones Urine Blood Urine Nitrite Urine Bilirubin Urine Urobilinogen Ur Leukocyte Esterase Urine WBC (Auto) Urine RBC (Auto) Urine Casts (Auto) U Epithel Cells (Auto) Urine Bacteria (Auto) Influenza A (Rapid) Influenza B (Rapid) Group A Strep Rapid Active Medications Generic Name Dose Route Start Last Admin Trade Name Freq PRN Reason Stop Dose Admin Acetaminophen 650 mg 06/23/18 15:44 Tylenol - PO Q4H PRN FEVER Albuterol Sulfate 1 amp 06/23/18 16:00 06/23/18 16:41 Ventolin 0.083% Nebulizer Soln - NEB 1 amp Q6H PRN Administration SHORTNESS OF BREATH/WHEEZING Albuterol/Ipratropium 1 amp 06/23/18 16:45 06/24/18 04:05 Duoneb - NEB 1 amp RQ4H DIANNE Administration Apixaban 2.5 mg 06/23/18 22:00 06/23/18 23:32 Eliquis - PO 2.5 mg BID DIANNE Administration Atorvastatin Calcium 10 mg 06/23/18 22:00 06/23/18 23:32 Lipitor - PO 10 mg HS [facility] Administration Chlorhexidine Gluconate 1 applic 06/23/18 22:00 Hibiclens For Decolonization - TP HS DIANNE Duloxetine HCl 60 mg 06/24/18 10:00 Cymbalta - PO DAILY [facility] Levetiracetam 750 mg 06/23/18 22:00 06/23/18 23:32 Keppra - PO 750 mg BID DIANNE Administration Methylprednisolone Sodium Succinate 60 mg 06/23/18 18:00 06/24/18 03:00 Solu-Medrol - IVPB 60 mg Q8H-IV DIANNE Administration Metoprolol Succinate 50 mg 06/23/18 22:00 06/23/18 23:32 Toprol Xl - PO 50 mg BID DIANNE Administration Mupirocin 1 applic 06/23/18 22:00 Bactroban Ointment (For Decolonization) - NS 06/28/18 21:59 BID DIANNE Pregabalin 100 mg 06/23/18 22:00 06/24/18 06:31 Lyrica - PO 100 mg TID DIANNE Administration Roflumilast 500 mcg 06/24/18 10:00 Daliresp - PO DAILY [facility] Tamsulosin HCl 0.4 mg 06/24/18 08:30 Flomax - PO DAILY@0830 [facility] ASSESSMENT/PLAN: Patient is a 77 year old male who presented for shortness of breath, wheezing, and was found to have acute hypoxic respiratory failure requiring high flow oxygen therapy. Patient admitted to ICU for further monitoring and management. NEURO: -Awake, alert, and oriented -Requires no sedation #Seizure disorder -Continue home medication Levetiracetam 750mg BID #Depression/History of Aggressive Behavior -Continue home medication Duloxetine 60mg daily PULMONARY: #Acute Hypoxic Respiratory Failure -Likely secondary to COPD exacerbation -Patient on 3L oxygen at home and is requiring High Flow oxygen therapy -High Flow 40/42 --Goal to wean off high flow to nasal cannula -Influenza and strep negative -Albuterol/Ipratropium neb standing Q8H and Albuterol Q4H prn -IV Methylprednisone 60mg Q8H -Azithromycin 500mg IV daily - Day 2 -Maintain 02 saturation >90% #COPD -Patient on 3L oxygen at home and prednisone 40mg daily chronically but will switch to IV -Currently on Budesonide/Formeterol 2 puff BID at home but will hold for now and keep patient on Albuterol/Ipratropium neb standing Q8H -Continue Rofluminast 500 mcg po daily -HFOT to Maintain 02 saturation >90% CARDIO: #Atrial Fibrillation on Eliquis -Currently not in RVR -Continue home medication Eliquis 2.5mg BID #CAD s/p CABG s/p 2 stents -Continue home medication Metoprolol Succinate 50mg BID po -Continue Atorvastatin 10mg HS -Cardiology consult placed. #HTN -Metoprolol Succinate 50mg BID PO -Continue to monitor BP #HLD -CAtorvastatin 10mg HS #HX of Pericardial Effusion -ECHO 05/13 -Repeat ECHO per cardio ENDOCRINOLOGY: #NIDDMII with Peripheral Neuropathy -Continue Pregabalin 100mg TID po -BGM -ISS -Last A1C 6.1% (05/30/18) : #BPH -Continue Tamsulosin 0.4mg daily ID #COPD Exacerbation -Sputum culture -Blood cultures -DC Azithromycin 500mg IV daily - Day 2 -Start Ceftriaxone 2g daily per ID - Day 1 F/E/N -No IVF -Electrolytes wnl -Sodium controlled diet Prophylaxis -DVT: Eliquis 2.5mg po BID -GI: Protonix 40mg IVP Disposition -DNR/DNI according to records. -Will require ICU monitoring to due to respiratory monitoring and he is on HFOT ] -Can be transferred to Med/Surg if transitioned to nasal cannula Visit type - Emergency Visit Emergency Visit: Yes ED Registration Date: 06/23/18 Care time: The patient presented to the Emergency Department on the above date and was hospitalized for further evaluation of their emergent condition. - New Patient This patient is new to me today: Yes Date on this admission: 06/24/18 - Critical Care Critical Care patient: Yes Total Critical Care Time (in minutes): 35 Critical Care Statement: The care of this patient involved high complexity decision making to prevent further life threatening deterioration of the patient 's condition and/or to evaluate & treat vital organ system(s) failure or risk of failure. - Discharge Referral Referred to [facility] Med [facility] No
[2018-06-24] MEDS ORDERED: TAMSULOSIN HCL 0.4 MG CAP PO SCH (08:30)
[2018-06-24] MEDS ORDERED: DULoxetine HCL 30 MG CAPSULE.DR (FP) PO ONE (09:10)
[2018-06-24] MEDS ORDERED: PT OWN MED DRAWER 7, Y5N ONE (09:11)
[2018-06-24] MEDS: levETIRAcetam 500 MG TABLET (FP) PO SCH ×3 (09:57→23:26)
[2018-06-24] MEDS: MUPIROCIN 2% TOPICAL OINTMENT FOR DECOLONIZATION NS SCH ×2 (09:58→21:26)
[2018-06-24] MEDS: APIXABAN 2.5 MG TABLET PO SCH ×3 (09:59→23:26)
[2018-06-24] MEDS ORDERED: DULoxetine HCL 60 MG CAPSULE.DR PO SCH (10:00)
[2018-06-24] MEDS ORDERED: ROFLUMILAST 500 MCG TABLET PO SCH (10:00)
[2018-06-24] MEDS ORDERED: AZITHROMYCIN IVPB 500 MG/250 ML BAG IVPB SCH (10:00)
--- NOTE | 2018-06-24 10:37 | PN ---
Progress Note (short form) - Note Progress Note: s: sob improving. no chest pain, palps, dizziness Current Medications Acetaminophen (Tylenol -) 650 mg PO Q4H PRN PRN Reason: FEVER Albuterol Sulfate (Ventolin 0.083% Nebulizer Soln -) 1 amp NEB Q6H PRN PRN Reason: SHORTNESS OF BREATH/WHEEZING Last Admin: 06/23/18 16:41 Dose: 1 amp Albuterol/Ipratropium (Duoneb -) 1 amp NEB RQ4H [facility] Last Admin: 06/24/18 07:45 Dose: 1 amp Apixaban (Eliquis -) 2.5 mg PO BID [facility] Last Admin: 06/24/18 09:59 Dose: 2.5 mg Atorvastatin Calcium (Lipitor -) 10 mg PO HS [facility] Last Admin: 06/23/18 23:32 Dose: 10 mg Chlorhexidine Gluconate (Hibiclens For Decolonization -) 1 applic TP HS [facility] Duloxetine HCl (Cymbalta -) 60 mg PO DAILY [facility] Last Admin: 06/24/18 09:58 Dose: 60 mg Azithromycin (Zithromax 500mg Ivpb (Pre-Docked)) 500 mg in 250 mls @ 250 mls/ hr IVPB DAILY [facility] Last Admin: 06/24/18 09:17 Dose: 250 mls/hr Levetiracetam (Keppra -) 750 mg PO BID [facility] Last Admin: 06/24/18 09:57 Dose: 750 mg Methylprednisolone Sodium Succinate (Solu-Medrol -) 60 mg IVPB Q8H-IV [facility] Last Admin: 06/24/18 09:56 Dose: 60 mg Metoprolol Succinate (Toprol Xl -) 50 mg PO BID [facility] Last Admin: 06/24/18 10:00 Dose: 50 mg Mupirocin (Bactroban Ointment (For Decolonization) -) 1 applic NS BID [facility] Stop: 06/29/18 09:59 Last Admin: 06/24/18 09:58 Dose: 1 applic Pregabalin (Lyrica -) 100 mg PO TID [facility] Last Admin: 06/24/18 06:31 Dose: 100 mg Roflumilast (Daliresp -) 500 mcg PO DAILY [facility] Tamsulosin HCl (Flomax -) 0.4 mg PO DAILY@0830 [facility] Last Admin: 06/24/18 09:59 Dose: 0.4 mg pe: Vital Signs Period Temp Pulse Resp BP Sys/Varghese Pulse Ox Last 24 Hr 98.2 F-98.4 F 60-82 16-26 108-163/58-101 86-98 nad no jvd rrr s1s2 no mrg bl exp wheeze, nl eff aaox3 no le e/c/c abd nt nd pos bs no jaundice diaphoresis pos dp pt no carotid bruits ecg: sr, as-vp integration cxr: clear lungs 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 sob, copd: -no signs acs or chf, seems like acute copd, continue tx per pulm cad s/p pci: -stable -cont statin, bb, ac chronic sys chf: -s/p cardiovascular sonographer pacer -stable vol status off diuretics, monitor vol status with iv steroids -prior echos here are nondiagnostic, will attempt repeat study -cont bb NSVT - noted on tele here, 7 beats - hx ICM, echo pending - refused ICD in the past - replete lytes for K >4.0, Mg >2.0 pafib: -stable, cont bb and eliquis peric eff: -prior outpt echo reported moderate to large pericardial effusion, localized. He had no indications of tamponade then (04/2018) and none now. - repeat echo pending
--- NOTE | 2018-06-24 11:43 | PN ---
Progress Note (short form) - Note Progress Note: ID CONSULT DICTATED ACUTE EXACERBATION COPD R/O TRACHEOBRONCHITIS CAD HX S.MITIS BACTEREMIA OBTAIN C/S EMPIRIC CEFTRIAXONE
[2018-06-24] MEDS ORDERED: CEFTRIAXONE 2 GM in DEXTROSE 5%-WATER 100 ML IVPB SCH (12:00)
--- NOTE | 2018-06-24 12:29 | CONS ---
DATE OF CONSULTATION: DATE OF DICTATION: 06/24/2018 HISTORY OF PRESENT ILLNESS: The patient is a 77-year-old male with multiple comorbidities evaluated for possible tracheobronchitis. The patient was admitted to the hospital on June 23, 2018, with worsening shortness of breath. The patient's was present at the time of the examination. She reports that they attended a on the weekend of June 14, 2018. She states that it was cold outside and he subsequently had developed a respiratory tract illness. Patient reports developing cough productive of yellowish sputum, developed worsening shortness of breath and wheezing. He got progressively worse over the last 3 or 4 days. He presented to the emergency room where he was noted to be tachypneic with hypoxemia. He was treated with inhaled bronchodilators, corticosteroids and Zithromax. Chest x-ray was performed and showed some increased markings bilaterally. It was officially read as negative for infiltrate. Patient complained of shortness of breath at rest. He is on high-flow oxygen in the intensive care unit, continues to complain of cough. He denies any chest pain or hemoptysis. No known ill contacts. He lives at home with his . He has had multiple recent hospitalizations. No recent travel. He is a former smoker. He has a small pet dog at home. PAST MEDICAL HISTORY: Positive for COPD on home oxygen, congestive heart failure, coronary artery disease, stroke, BPH, hypertension, hyperlipidemia, seizure disorder. PAST SURGICAL HISTORY: He is status post permanent pacemaker, Coronary artery bypass, right knee surgery. ALLERGIES: No known allergies. MEDICATIONS: 1. Zithromax. 2. Cymbalta. 3. Isordil. 4. Protonix. 5. Lyrica. 6. Flomax. 7. Eliquis. 8. Keppra. 9. Lipitor. 10. Toprol. SOCIAL HISTORY: Former smoker, stopped in 2006. SYSTEMS REVIEW: Neurologic: No loss of consciousness, seizure activity, focal weakness. Cardiac: Negative chest pain or palpitations. Respiratory: As per HPI. Gastrointestinal: Negative vomiting or diarrhea. Genitourinary: Negative for urinary tract infection. LABORATORY DATA: White count 4.9, hematocrit 44.6, platelet count 172. Differential 87 neutrophils, 7 lymphocytes, 4 monocytes. BUN 25, creatinine 1.2. Liver enzymes normal. Urinalysis negative. Flu swab negative. PHYSICAL EXAMINATION: General: On exam he is awake. He is seated in bed. He is slightly short of breath on high-flow oxygen. Vitals: Temperature 96.7, blood pressure 163/101, pulse 82 regular, respirations 22 per minute. HEENT: Sclera anicteric. Heart: Sounds distant S1, S2. Lungs: Scattered rhonchi bilaterally and mild wheezing bilaterally. Abdomen: Soft, no tenderness elicited. Extremities: Negative for edema. Negative Destiny. IMPRESSION: 1. Acute exacerbation chronic obstructive pulmonary disease. 2. Tracheobronchitis, rule out early pneumonia. 3. Coronary artery disease. 4. History of strep mitis bacteremia November 2017. Will obtain blood cultures, sputum culture, empiric antibiotic coverage for community acquired pathogens with ceftriaxone 2 mg IV piggyback daily. Continue inhaled bronchodilators, steroids, supplemental oxygen. Case was discussed with the patient's present at the time of the examination. Thank you for the kind referral. AYSE WONG M.D. [id number]
--- NOTE | 2018-06-24 13:32 | PN ---
Teaching Attending Note Name of Resident: Misti Jamison ATTENDING PHYSICIAN STATEMENT I saw and evaluated the patient. I reviewed the resident's note and discussed the case with the resident. I agree with the resident's findings and plan as documented. SUBJECTIVE: Pt seen and examined in the ICU. Remains on HFOT. States breathing is improving. No fevers recorded. +cough with green sputum. OBJECTIVE: Vital Signs Period Temp Pulse Resp BP Sys/Varghese Pulse Ox Last 24 Hr 98.2 F-98.7 F 60-82 16-26 108-163/58-101 93-97 Intake & Output 06/21/18 06/22/18 06/23/18 06/24/18 23:59 23:59 23:59 23:59 Intake Total 10 730 Output Total 690 400 Balance -680 330 Weight 70.3 kg 68.13 kg Gen: mildly tachypneic with speaking Heart: RRR Lung: distant breath sounds, scattered rhonchi Abd: soft, nontender Ext: no edema CBC, BMP 06/24/18 05:30 06/24/18 05:30 Active Medications Acetaminophen (Tylenol -) 650 mg PO Q4H PRN PRN Reason: FEVER Albuterol Sulfate (Ventolin 0.083% Nebulizer Soln -) 1 amp NEB Q6H PRN PRN Reason: SHORTNESS OF BREATH/WHEEZING Last Admin: 06/23/18 16:41 Dose: 1 amp Albuterol/Ipratropium (Duoneb -) 1 amp NEB RQ4H [facility] Last Admin: 06/24/18 07:45 Dose: 1 amp Apixaban (Eliquis -) 2.5 mg PO BID [facility] Last Admin: 06/24/18 09:59 Dose: 2.5 mg Atorvastatin Calcium (Lipitor -) 10 mg PO HS [facility] Last Admin: 06/23/18 23:32 Dose: 10 mg Chlorhexidine Gluconate (Hibiclens For Decolonization -) 1 applic TP [facility] Duloxetine HCl (Cymbalta -) 60 mg PO DAILY [facility] Last Admin: 06/24/18 09:58 Dose: 60 mg Ceftriaxone Sodium 2 gm/ (Dextrose) 100 mls @ 200 mls/hr IVPB DAILY [facility]; Protocol Levetiracetam (Keppra -) 750 mg PO BID [facility] Last Admin: 04/02/19 09:57 Dose: 750 mg Methylprednisolone Sodium Succinate (Solu-Medrol -) 60 mg IVPB Q8H-IV [facility] Last Admin: 06/24/18 09:56 Dose: 60 mg Metoprolol Succinate (Toprol Xl -) 50 mg PO BID [facility] Last Admin: 06/24/18 10:00 Dose: 50 mg Mupirocin (Bactroban Ointment (For Decolonization) -) 1 applic NS BID [facility] Stop: 06/29/18 09:59 Last Admin: 06/24/18 09:58 Dose: 1 applic Pregabalin (Lyrica -) 100 mg PO TID [facility] Last Admin: 06/24/18 06:31 Dose: 100 mg Roflumilast (Daliresp -) 500 mcg PO DAILY [facility] Tamsulosin HCl (Flomax -) 0.4 mg PO DAILY@0830 [facility] Last Admin: 06/24/18 09:59 Dose: 0.4 mg ASSESSMENT AND PLAN: Acute on Chronic Hypoxic Respiratory Failure Acute COPD Exacerbation CAD LV Systolic Dysfunction Paroxysmal Atrial Fibrillation Thoracic Aneurysm - IV medrol - inhaled bronchodilators - empiric antibiotics - taper HFOT to keep SpO2 >90% - transition to nasal cannula - rate controlled - continue anticoagulation - PO as tolerated - can monitor on floor if tolerating nasal cannula
[2018-06-24] MEDS ORDERED: DEXTROSE 5%-WATER 100 ML IVPB ONE (14:33)
--- NOTE | 2018-06-24 14:44 | EKG ---
Test Reason : Blood Pressure : / mmHG Vent. Rate : 088 BPM Atrial Rate : 088 BPM P-R Int : 116 ms QRS Dur : 132 ms QT Int : 414 ms P-R-T Axes : 070 258 089 degrees QTc Int : 500 ms POOR DATA QUALITY, INTERPRETATION MAY BE ADVERSELY AFFECTED Atrial-sensed ventricular-paced rhythm Biventricular pacemaker detected ABNORMAL ECG WHEN COMPARED WITH ECG OF 29-MAY-2018 09:23, VENT. RATE HAS DECREASED BY 56 BPM Confirmed by Isaiah Salinas ([id number]) on 06/24/2018 2:44:03 PM Referred By: Confirmed By:Isaiah Salinas
--- NOTE | 2018-06-24 16:03 | ECHO ---
Name: IVAN MAURICIO Exam:Adult Echocardiogram Study Date: 06/24/2018 02:29 PM Age: 77 yrs Reason For Study: SOB Height: 67 in Weight: 154 lb BSA: 1.8 m2 MMode/2D Measurements & Calculations IVSd: 1.0 cm Ao root diam: 3.0 cm LVIDd: 4.9 cm LVPWd: 1.1 cm EDV(Teich): 112.2 ml LVOT diam: 2.1 cm Procedure A limited two-dimensional transthoracic echocardiogram was performed (2D). The study was technically limited with all images being suboptimal in quality. Tricuspid Valve Assuming the RA pressure is 5 mmHg. Interpretation Summary LV function cannot be assessed due to limitations of this study. There is a moderate pericardial effusion. RV function is normal without evidence of RV collapse. IVC size is normal and suggests normal RA pressure. A pacer wire is noted in the RV. Isaiah Salinas 06/24/2018 04:02 PM
--- NOTE | 2018-06-24 16:42 | PN ---
Progress Note, Physician Chief Complaint: COPD Exacerbation Moderate pericardial effusion History of Present Illness: Previous notes and events reviewed awake and alert NAD sts breathing is improving - Current Medication List Current Medications: Active Medications Acetaminophen (Tylenol -) 650 mg PO Q4H PRN PRN Reason: FEVER Albuterol Sulfate (Ventolin 0.083% Nebulizer Soln -) 1 amp NEB Q6H PRN PRN Reason: SHORTNESS OF BREATH/WHEEZING Last Admin: 06/23/18 16:41 Dose: 1 amp Albuterol/Ipratropium (Duoneb -) 1 amp NEB RQ4H [facility] Last Admin: 06/24/18 16:18 Dose: 1 amp Apixaban (Eliquis -) 2.5 mg PO BID [facility] Last Admin: 06/24/18 09:59 Dose: 2.5 mg Atorvastatin Calcium (Lipitor -) 10 mg PO HS [facility] Last Admin: 06/23/18 23:32 Dose: 10 mg Chlorhexidine Gluconate (Hibiclens For Decolonization -) 1 applic TP HS [facility] Duloxetine HCl (Cymbalta -) 60 mg PO DAILY [facility] Last Admin: 06/24/18 09:58 Dose: 60 mg Ceftriaxone Sodium 2 gm/ (Dextrose) 100 mls @ 200 mls/hr IVPB DAILY [facility]; Protocol Last Admin: 06/24/18 14:47 Dose: 200 mls/hr Levetiracetam (Keppra -) 750 mg PO BID [facility] Last Admin: 06/24/18 09:57 Dose: 750 mg Methylprednisolone Sodium Succinate (Solu-Medrol -) 60 mg IVPB Q8H-IV [facility] Last Admin: 06/24/18 09:56 Dose: 60 mg Metoprolol Succinate (Toprol Xl -) 50 mg PO BID [facility] Last Admin: 06/24/18 10:00 Dose: 50 mg Mupirocin (Bactroban Ointment (For Decolonization) -) 1 applic NS BID [facility] Stop: 06/29/18 09:59 Last Admin: 06/24/18 09:58 Dose: 1 applic Pregabalin (Lyrica -) 100 mg PO TID [facility] Last Admin: 06/24/18 14:30 Dose: 100 mg Roflumilast (Daliresp -) 500 mcg PO DAILY [facility] Tamsulosin HCl (Flomax -) 0.4 mg PO DAILY@0830 [facility] Last Admin: 06/24/18 09:59 Dose: 0.4 mg - Objective Vital Signs: Vital Signs Temperature 97.8 F 06/24/18 14:00 Pulse Rate 60 06/24/18 16:00 Respiratory Rate 18 06/24/18 16:00 Blood Pressure 146/95 06/24/18 16:00 O2 Sat by Pulse Oximetry (%) 94 L 06/24/18 16:27 Constitutional: Yes: No Distress, Calm Eyes: Yes: Conjunctiva Clear HENT: Yes: Atraumatic Cardiovascular: Yes: Regular Rate and Rhythm Respiratory: Yes: On Nasal O2, Rhonchi Gastrointestinal: Yes: Normal Bowel Sounds, Soft Genitourinary: Yes: Incontinence Musculoskeletal: Yes: Muscle Weakness Extremities: Yes: WNL Edema: No Neurological: Yes: Alert, Pre-Existing Deficit Psychiatric: Yes: Alert Labs: CBC, BMP 06/24/18 05:30 06/24/18 05:30 INR, PTT INR 1.31 (0.83-1.09) H 06/24/18 05:30 Troponin, BNP 06/24/18 05:30 Troponin I < 0.02 B-Natriuretic Peptide 2817.9 H Problem List - Problems (1) COPD exacerbation Assessment/Plan: -pulm on board -O2 via NC -bronchodilators -keep SpO2 >90% -IV solumedrol -ID on board -continue IV ceftriaxone Code(s): J44.1 - CHRONIC OBSTRUCTIVE PULMONARY DISEASE W (ACUTE) EXACERBATION (2) Acute kidney injury Assessment/Plan: -BUN/Cr 25/1.1 -continue to monitor renal function Code(s): N17.9 - ACUTE KIDNEY FAILURE, UNSPECIFIED (3) Aortic aneurysm Assessment/Plan: -cardiology on board Code(s): I71.9 - AORTIC ANEURYSM OF UNSPECIFIED SITE, WITHOUT RUPTURE (4) CHF (congestive heart failure) Assessment/Plan: -cardiology on board -1L fluid restriction -BNP 2814--will monitor for downtrend -daily weights -ECHO reviewed Code(s): I50.9 - HEART FAILURE, UNSPECIFIED (5) Pericardial effusion Assessment/Plan: -cardiology on board -Echo shows moderate pericardial effusion Code(s): I31.3 - PERICARDIAL EFFUSION (NONINFLAMMATORY) (6) Seizure Assessment/Plan: -continue keppra -fall and seizure precautions Code(s): R56.9 - UNSPECIFIED CONVULSIONS (7) Chronic a-fib Assessment/Plan: -cardiology on board -cont tele monitoring -continue with Eliquis and metoprolol for rate control Code(s): I48.2 - CHRONIC ATRIAL FIBRILLATION Assessment/Plan see problem list dvt ppx
[2018-06-24] MEDS: ATORVASTATIN CA 10 MG TABLET (FP) PO SCH (21:26)
[2018-06-24] MEDS ORDERED: ACETAMINOPHEN 325 MG TABLET (FP) PO PRN (21:39)
[2018-06-24] MEDS ORDERED: ALBUTEROL SO4 0.083% IH SOL 2.5 MG/3 ML VIAL.NEB. NEB PRN (21:39)
[2018-06-24] MEDS ORDERED: CHLORHEXIDINE GLUCONATE 4% CLEANSER FOR DECOLONIZATION TP SCH ×2 (22:00)
[2018-06-24] MEDS ORDERED: ATORVASTATIN CA 10 MG TABLET (FP) PO SCH (22:00)
[2018-06-24] MEDS ORDERED: MUPIROCIN 2% TOPICAL OINTMENT FOR DECOLONIZATION NS SCH (22:00)
[2018-06-25] MEDS: methylPREDNISolone NA SUCC 40 MG/1 ML VIAL IVPB SCH ×3 (01:16→17:46)
[2018-06-25] MEDS: ALBUTEROL SO4 2.5/IPRATROPIUM 0.5 INH SOL 3 ML VIAL.NEB. NEB SCH ×5 (04:15→20:52)
[2018-06-25] MEDS: PREGABALIN 100 MG CAPSULE PO SCH ×3 (06:27→22:20)
[2018-06-25 07:52] LABS: BASO % 0.2 % (0-2.0); HEMATOCRIT 49.5 % (35.4-49); LYMPH % 5.6 % (8-40); MCH 28.4 pg (25.7-33.7); MCHC 32.3 g/dl (32.0-35.9); MEAN CELL VOLUME 87.9 fl (80-96); MEAN PLT VOLUME 9.6 fl (7.5-11.1); MONO % 2.4 % (3.8-10.2); NEUT % 91.8 % (42.8-82.8); PLATELET COUNT 188 K/MM3 (134-434); RBC 5.63 M/mm3 (4.00-5.60); RDW 18.3 % (11.9-15.9); WHITE BLOOD COUNT 9.8 K/mm3 (4.0-10.0)
[2018-06-25 08:20] LABS: ALBUMIN 3.5 g/dl (3.4-5.0); ALK PHOS 57 U/L (45-117); ANION GAP 7 MMOL/L (8-16); BILIRUBIN,TOTAL 0.6 mg/dL (0.2-1); BLOOD UREA NITROGEN 30 mg/dL (7-18); CHLORIDE 101 mmol/L (98-107); CO2 31 mmol/L (21-32); CREATININE 1.3 mg/dL (0.55-1.3); GLUCOSE,RANDOM 112 mg/dL (74-106); MAGNESIUM 2.4 mg/dL (1.8-2.4); PHOSPHOROUS 4.3 mg/dL (2.5-4.9); POTASSIUM 4.7 mmol/L (3.5-5.1); SGOT/AST 12 U/L (15-37); SGPT/ALT 13 U/L (13-61); SODIUM 138 mmol/L (136-145); TOT PROT 7.1 g/dl (6.4-8.2)
[2018-06-25] MEDS ORDERED: TAMSULOSIN HCL 0.4 MG CAP PO SCH (08:30)
[2018-06-25] MEDS ORDERED: DEXTROSE 5%-WATER 100 ML IVPB ONE (09:18)
[2018-06-25] MEDS ORDERED: DULoxetine HCL 30 MG CAPSULE.DR (FP) PO SCH (10:00)
[2018-06-25] MEDS ORDERED: ROFLUMILAST 500 MCG TABLET PO SCH (10:00)
[2018-06-25] MEDS ORDERED: CEFTRIAXONE 2 GM in DEXTROSE 5%-WATER 100 ML IVPB SCH (10:00)
[2018-06-25 10:13] LABS: ANISOCYTOSIS 1+; MACROCYTOSIS 0; OVALOCYTE 1+; PLATELET ESTIMATE NORMAL
[2018-06-25] MEDS: levETIRAcetam 500 MG TABLET (FP) PO SCH ×2 (10:18→22:20)
[2018-06-25] MEDS: APIXABAN 2.5 MG TABLET PO SCH ×2 (10:19→22:21)
--- NOTE | 2018-06-25 10:43 | RAPID ---
Physical Examination Vital Signs: Vital Signs Temperature 97.4 F L 06/25/18 05:13 Pulse Rate 63 06/25/18 05:13 Respiratory Rate 20 06/25/18 05:13 Blood Pressure 149/98 06/25/18 05:13 O2 Sat by Pulse Oximetry (%) 95 06/24/18 21:00 Labs: CBC, BMP 06/25/18 07:15 06/25/18 07:15 Rapid Response - Rapid Response Assessment: code jacboo called overhead. pt appeared confused, unclear if off baseline as he waxes and wanes nl AOX1, NAD diminished breath sounds RRR NTND skin warm, well perfused NIHSS 4 - mild dysarthria, mild aphasia, mild confusion Other osorio neuro exam unremarkable 134/87 81 100%NC 4L stroke w/u initiated EKG, cardiac enzymes, ABG, BGM, cbc, cmp, Mg, Phosph, TSH, ammonia, lipid panel , a1c, carotid u/s, echo, head ct STAT pt on eliquis, not tpa candidate will cont home statin tele monitoring NPO PENDING speech swallo eval seizure fall aspiration precautions PT eval case d/w attending Dr. Singh PCP Dr. Escamilla contacted and aware
--- NOTE | 2018-06-25 11:25 | CONSULT ---
Admitting History and Physical - Primary Care Physician PCP: Xavier Escamilla - Admission History of Present Illness: Per admission note, 77 yo M with h/o CAD, chronic CVA (2011) COPD, ischemic cardiomyopathy c/p [employer]-p, paroxysmal A-fib ( on Eliquis), seizure dx , who presents with cough and shortness of breath for last 4 days. In ER he found to be tachypneic put on high flow oxygen and saturation improved then changed to 10litres of nasal canula saturating in low 90's got solumedrol and iv azithromycin and lasix DX:COPD Exacerbation Moderate pericardial effusion RR/Code jacobo today-Per EMR- pt appeared confused, unclear if off baseline as he waxes and wanes nl NIHSS 4 - mild dysarthria, mild aphasia, mild confusion Otherwise neuro exam unremarkable CT head noted. No acute infarct. Pt seen bedside. 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 No h/o dysphagia or PNA, but pt's reports he occasionally clears his throat while eating. 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 No: Renal Failure Musculoskeletal: Yes: Osteoarthritis - Past Surgical History Past Surgical History: Yes: AAA Repair, Permanent Pacemaker - Smoking History Smoking history: Former smoker Have you smoked in the past 12 months: No If you are a former smoker, when did you quit?: 2008 - Alcohol/Substance Use Hx Alcohol Use: No History of Substance Use: reports: None - Social History ADL: Family Assistance History of Recent Travel: No History - Admission Reason For Visit: COPD - Diagnostics X-ray: Report Reviewed CT Scan: Report Reviewed - General Mental Status: Alert and Oriented, Awake and Alert, Able to Follow Commands Attention: Intact Ability to Follow Directions: Good Head/Neck Control: WFL - Hearing Hearing: Normal With Patient: No Speech Evaluation - Communication Primary Language: KHMER Communication: Yes: Aphasia Oral Expression Ability: Yes: Moderate Impairment - Speech Production Able to Make Needs Known: Yes: Moderately Impaired Intelligibility: Yes: Mildly Impaired - Speech Characteristics Voice Loudness: Normal Voice Pitch: Yes: Normal Voice Phonatory-based Quality: Yes: Dysphonia (mild) Speech Pattern: Impaired Nasal Resonance: Normal Articulation: Yes: Imprecise (mild) - Language/Auditory Comprehension Follows: Yes: 1 Stage Simple Commands Observation: Able to respond to yes/no queries: Yes, Yes/No Confusion: No, Comprehends Conversational Speech: Yes - Language/Verbal Expression Aphasia: Yes: Nonfluent, Anomia, Paraphrasic Errors, Apraxia, Grammatic Errors Able to Respond to Simple Queries: Yes: Moderately Impaired Able to Communicate Wants and Needs: Yes: Moderately Impaired Functional Communication Status: Yes: Moderately Impaired - Swallow Evaluation/Bedside Assessment Current Nutritional Intake: NPO, Regular, Thin Liquids Oral Secretions: Yes: WFL Dentition: Yes: Dental Appliance Upper Facial Symmetry at Rest: Symmetrical Facial Symmetry on Retraction: Symmetrical Against Resistance Opening: Normal Against Resistance Closing: Normal Pucker Lips: Normal Smile: Normal Lingual Movement: Normal, Symmetric Lingual Speed of Movement: Normal Lingual Movement Strgth Against Opposition: Normal Lingual Movement Characteristics: Normal Velopharyngeal Movement: Normal Laryngeal Movement: Reduced Excursion, Labored,delay initiation Rate of Intake: WFL Bolus Size: WFL Labial Seal: WFL Chewing: WFL Oral Prep Time: WFL A-P Transit: WFL Pocketing: None Coughing/Throat Clear: Yes (occasionally throat clears while eating. ) Recommendations - Speech Evaluation, Impression/Plan Impression: Pt presents with Moderate Nonfluent Aphasia, since CVA. Oriented but paraphasic errors and anomia adverely affect accuracy of response . eg. age "89" for 77. Pt with occasional throat clearing while eating. Many hospital admissions for COPD. R/o possibility of silent aspiration? - Disposition Discharge to: Home with Assist (Strongly recomment speech tx upon d/c via homecare. Pt can improve functional communication and ability to compensate and can be educated on ways to support and maximize communication.) - Dysphagia Impressions/Plan Dysphagia Impressions: Risk of Aspiration, Ongoing Evaluation *Silent aspiration: cannot be R/O at bedside Recommendations: Modified Barium Swallow (r/o aspiration)
--- NOTE | 2018-06-25 11:37 | PN ---
Progress Note (short form) - Note Progress Note: s: no chest pain, palps, dizziness. code donnell called overnight for confusion. patient seen with at bedside this AM, he is at baseline Current Medications Acetaminophen (Tylenol -) 650 mg PO Q4H PRN PRN Reason: FEVER Last Admin: 06/25/18 11:32 Dose: 650 mg Albuterol Sulfate (Ventolin 0.083% Nebulizer Soln -) 1 amp NEB Q6H PRN PRN Reason: SHORTNESS OF BREATH/WHEEZING Albuterol/Ipratropium (Duoneb -) 1 amp NEB RQ4H [facility] Last Admin: 06/25/18 07:40 Dose: 1 amp Apixaban (Eliquis -) 2.5 mg PO BID [facility] Last Admin: 06/25/18 10:19 Dose: 2.5 mg Atorvastatin Calcium (Lipitor -) 10 mg PO HS [facility] Last Admin: 06/24/18 23:26 Dose: Not Given Duloxetine HCl (Cymbalta -) 60 mg PO DAILY [facility] Last Admin: 06/25/18 10:20 Dose: 60 mg Ceftriaxone Sodium 2 gm/ (Dextrose) 100 mls @ 200 mls/hr IVPB DAILY [facility]; Protocol Last Admin: 06/25/18 10:19 Dose: 200 mls/hr Levetiracetam (Keppra -) 750 mg PO BID [facility] Last Admin: 06/25/18 10:18 Dose: 750 mg Methylprednisolone Sodium Succinate (Solu-Medrol -) 60 mg IVPB Q8H-IV [facility] Last Admin: 06/25/18 10:19 Dose: 60 mg Metoprolol Succinate (Toprol Xl -) 50 mg PO BID [facility] Last Admin: 06/25/18 10:19 Dose: 50 mg Pregabalin (Lyrica -) 100 mg PO TID [facility] Last Admin: 06/25/18 06:27 Dose: 100 mg Roflumilast (Daliresp -) 500 mcg PO DAILY [facility] Last Admin: 06/25/18 10:21 Dose: 500 mcg Tamsulosin HCl (Flomax -) 0.4 mg PO DAILY@0830 [facility] Last Admin: 06/25/18 08:44 Dose: 0.4 mg pe: nad no jvd rrr s1s2 no mrg bl exp wheeze, nl eff aaox3 no le e/c/c abd nt nd pos bs no jaundice diaphoresis pos dp pt no carotid bruits ecg: sr, as-vp design cxr: clear lungs echo 06/2018 tds, unable to assess LV function, mod pericardial effusion, pacer wire in RV a/p: 77 m hx multiple aneurysms including 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 alt mental status - code jacobo called this morning - per patient's pt at baseline now, has hx confusion and speech impediment per - echo nondiagnostic - carotid ultrasound pending sob, copd: -no signs acs or chf, seems like acute copd, continue tx per pulm cad s/p pci: -stable -cont statin, bb, ac chronic sys chf: -s/p strap cutter pacer -stable vol status off diuretics, monitor vol status with iv steroids -prior echos here are nondiagnostic, cannot assess LV on repeat study yesterday -cont bb NSVT - noted on tele here, 7 beats - hx ICM, echo pending - refused ICD in the past - replete lytes for K >4.0, Mg >2.0 pafib: -stable, cont bb and eliquis peric eff: -prior outpt echo reported moderate to large pericardial effusion, localized. He had no indications of tamponade then (04/2018) and none now. - repeat echo mod pericardial effusion
--- NOTE | 2018-06-25 11:51 | PN ---
Progress Note (short form) - Note Progress Note: Called to evaluate patient for ICU admission due to no telemetry beds. Lay Romero called this morning due confusion. Rapid Response team assessed patient and was found to have NIHSS of 4 due to mild dysarthria, mild aphasia, and mild confusion. Head CT was ordered and revealed no acute intracranial pathology and no hemorrhage. Labwork still pending and transfer orders for tele monitoring. On my evaluation, patient was sitting comfortably in bed drinking coffee and speaking in full sentences. He was awake, alert, and oriented x2. I evaluated and seen the patient on admission and is currently above baseline from initial assessment. PHYSICAL EXAM: AA0X3, no facial droop. motor strength and sensory intact RRR Bilateral wheezing throughout lung bases. No accessory muscle use No peripheral edema VITALS: 138/84 80's 99% on NC Patient does not currently meet criteria for ICU transfer as he is hemodynamically stable and in no respiratory distress. Patient is speaking in full sentences and is not using accessory muscle use. Head CT revealed no acute pathology. Recommend continuing Atorvastatin, speech and swallow eval, seizure and fall precaution and PT. Recommend Nebulizers for wheezing and history of COPD Labs are pending and if patient has severe acidosis, would re-evaluate for possible ICU admission. Patient currently being followed by Pulmonary team in house and will continue to follow and monitor Case discussed with ICU attending, Dr. Ravi Bassett MD-[id number]
[2018-06-25 11:58] LABS: ARTERIAL BLD GAS O2 SATURATION 92.5 % (95-98); ARTERIAL BLOOD GAS BASE EXCESS 2.6 meq/l (-2-2); ARTERIAL BLOOD GAS PCO2 39.4 mmHg (35-45); ARTERIAL BLOOD GAS PO2 69.5 mmHg (80-105); ARTERIAL BLOOD GAS pH 7.44 (7.35-7.45)
[2018-06-25 12:22] LABS: HEMATOCRIT 48.6 % (35.4-49); HEMOGLOBIN 15.6 GM/dL (11.7-16.9); MCH 28.3 pg (25.7-33.7); MCHC 32.1 g/dl (32.0-35.9); MEAN PLT VOLUME 9.7 fl (7.5-11.1); PLATELET COUNT 202 K/MM3 (134-434); RBC 5.52 M/mm3 (4.00-5.60); RDW 17.9 % (11.9-15.9); WHITE BLOOD COUNT 12.1 K/mm3 (4.0-10.0)
[2018-06-25 12:23] LABS: BASO % 0.9 % (0-2.0); LYMPH % 3.5 % (8-40); MONO % 4.6 % (3.8-10.2)
[2018-06-25 12:40] LABS: INR 1.14 (0.83-1.09); PROTHROMBIN TIME (PATIENT) 13.5 SEC (9.7-13.0)
[2018-06-25 12:42] LABS: ACTIVATED PTT 36.6 SECONDS (25.2-36.5)
[2018-06-25 13:05] LABS: ERYTHROCYTE SEDIMENTATION RATE 3 mm/hr (0-20)
[2018-06-25 13:14] LABS: ALBUMIN 3.3 g/dl (3.4-5.0); ALK PHOS 55 U/L (45-117); ANION GAP 10 MMOL/L (8-16); BILIRUBIN,TOTAL 0.2 mg/dL (0.2-1); BLOOD UREA NITROGEN 31 mg/dL (7-18); CHLORIDE 100 mmol/L (98-107); CHOLESTEROL 170 mg/dL (50-200); CO2 29 mmol/L (21-32); CREATININE 1.2 mg/dL (0.55-1.3); GLUCOSE,RANDOM 68 mg/dL (74-106); HDL CHOLESTEROL 38 mg/dL (40-60); MAGNESIUM 2.4 mg/dL (1.8-2.4); PHOSPHOROUS 4.1 mg/dL (2.5-4.9); POTASSIUM 4.1 mmol/L (3.5-5.1); SGOT/AST 11 U/L (15-37); SGPT/ALT 12 U/L (13-61); SODIUM 139 mmol/L (136-145); TOT PROT 6.6 g/dl (6.4-8.2); TRIGLYCERIDES 148 mg/dL (0-150)
--- NOTE | 2018-06-25 15:03 | EKG ---
Test Reason : Blood Pressure : / mmHG Vent. Rate : 062 BPM Atrial Rate : 062 BPM P-R Int : 138 ms QRS Dur : 118 ms QT Int : 450 ms P-R-T Axes : 073 270 122 degrees QTc Int : 456 ms Atrial-sensed ventricular-paced rhythm Biventricular pacemaker detected ABNORMAL ECG WHEN COMPARED WITH ECG OF 23-JUN-2018 10:42, VENT. RATE HAS DECREASED BY 26 BPM Confirmed by KAMALA HAMMOND MD ([id number]) on 06/25/2018 3:03:35 PM Referred By: Berlin SANDERS Confirmed By:KAMALA HAMMOND MD
--- NOTE | 2018-06-25 16:02 | PN ---
Progress Note, Physician Chief Complaint: COPD Exacerbation Moderate pericardial effusion History of Present Illness: Previous notes and events reviewed awake and alert NAD patient was noted to have altered mental status and slurred speech this morning by RN, fabio jacobo was called, Head CT scan show no gross infarct or intracranial hemorrhage - Current Medication List Current Medications: Active Medications Acetaminophen (Tylenol -) 650 mg PO Q4H PRN PRN Reason: FEVER Last Admin: 06/25/18 11:32 Dose: 650 mg Albuterol Sulfate (Ventolin 0.083% Nebulizer Soln -) 1 amp NEB Q6H PRN PRN Reason: SHORTNESS OF BREATH/WHEEZING Albuterol/Ipratropium (Duoneb -) 1 amp NEB RQ4H [facility] Last Admin: 06/25/18 11:10 Dose: Not Given Apixaban (Eliquis -) 2.5 mg PO BID [facility] Last Admin: 06/25/18 10:19 Dose: 2.5 mg Atorvastatin Calcium (Lipitor -) 10 mg PO HS [facility] Last Admin: 06/24/18 23:26 Dose: Not Given Duloxetine HCl (Cymbalta -) 60 mg PO DAILY [facility] Last Admin: 06/25/18 10:20 Dose: 60 mg Ceftriaxone Sodium 2 gm/ (Dextrose) 100 mls @ 200 mls/hr IVPB DAILY [facility]; Protocol Last Admin: 06/25/18 10:19 Dose: 200 mls/hr Levetiracetam (Keppra -) 750 mg PO BID [facility] Last Admin: 06/25/18 10:18 Dose: 750 mg Methylprednisolone Sodium Succinate (Solu-Medrol -) 60 mg IVPB Q8H-IV [facility] Last Admin: 06/25/18 10:19 Dose: 60 mg Metoprolol Succinate (Toprol Xl -) 50 mg PO BID [facility] Last Admin: 06/25/18 10:19 Dose: 50 mg Pregabalin (Lyrica -) 100 mg PO TID [facility] Last Admin: 06/25/18 15:47 Dose: 100 mg Roflumilast (Daliresp -) 500 mcg PO DAILY [facility] Last Admin: 06/25/18 10:21 Dose: 500 mcg Tamsulosin HCl (Flomax -) 0.4 mg PO DAILY@0830 [facility] Last Admin: 06/25/18 08:44 Dose: 0.4 mg - Objective Vital Signs: Vital Signs Temperature 98.2 F 06/25/18 09:00 Pulse Rate 75 06/25/18 09:00 Respiratory Rate 20 06/25/18 10:00 Blood Pressure 123/80 06/25/18 09:00 O2 Sat by Pulse Oximetry (%) 94 L 06/25/18 10:00 Constitutional: Yes: No Distress, Calm Eyes: Yes: Conjunctiva Clear HENT: Yes: Atraumatic Cardiovascular: Yes: Regular Rate and Rhythm Respiratory: Yes: On BiPap, Rhonchi Gastrointestinal: Yes: Normal Bowel Sounds, Soft Genitourinary: Yes: Incontinence Musculoskeletal: Yes: Muscle Weakness Extremities: Yes: WNL Edema: No Neurological: Yes: Alert, Pre-Existing Deficit Psychiatric: Yes: Alert, Oriented (to self only, does not know place or time) Labs: CBC, BMP 06/25/18 11:50 06/25/18 11:50 INR, PTT INR 1.14 (0.83-1.09) H 06/25/18 11:50 Microbiology 06/24/18 12:38 Blood - Peripheral Venous Blood Culture - Preliminary NO GROWTH OBTAINED AFTER 24 HOURS, INCUBATION TO CONTINUE FOR 4 DAYS. 06/24/18 12:33 Blood - Peripheral Venous Blood Culture - Preliminary NO GROWTH OBTAINED AFTER 24 HOURS, INCUBATION TO CONTINUE FOR 4 DAYS. 06/24/18 12:50 Sputum - Expectorated Gram Stain - Final 06/24/18 12:50 Sputum - Expectorated Sputum Culture - Preliminary Pending Organism 06/23/18 12:30 Throat Throat Culture - Final NO BETA HEMOLYTIC STREPTOCOCCI ISOLATED Problem List - Problems (1) COPD exacerbation Assessment/Plan: -O2 via NC -bronchodilators -keep SpO2 >90% -IV solumedrol -ID on board -continue IV ceftriaxone Code(s): J44.1 - CHRONIC OBSTRUCTIVE PULMONARY DISEASE W (ACUTE) EXACERBATION (2) Acute kidney injury Assessment/Plan: -BUN/Cr 24/04.2 -continue to monitor renal function Code(s): N17.9 - ACUTE KIDNEY FAILURE, UNSPECIFIED (3) Aortic aneurysm Assessment/Plan: -cardiology on board Code(s): I71.9 - AORTIC ANEURYSM OF UNSPECIFIED SITE, WITHOUT RUPTURE (4) CHF (congestive heart failure) Assessment/Plan: -cardiology on board -1L fluid restriction -BNP 2814--will monitor for downtrend -daily weights -ECHO reviewed Code(s): I50.9 - HEART FAILURE, UNSPECIFIED (5) Pericardial effusion Assessment/Plan: -cardiology on board -Echo shows moderate pericardial effusion Code(s): I31.3 - PERICARDIAL EFFUSION (NONINFLAMMATORY) (6) Seizure Assessment/Plan: -continue keppra -fall and seizure precautions Code(s): R56.9 - UNSPECIFIED CONVULSIONS (7) Chronic a-fib Assessment/Plan: -cardiology on board -cont tele monitoring -continue with Eliquis and metoprolol for rate control Code(s): I48.2 - CHRONIC ATRIAL FIBRILLATION (8) Altered mental status Assessment/Plan: -neurology consult -carotid doppler performed -brain CT scan show no gross acute infarct or intracranial hemorrhage -fall precaution -neuro checks Code(s): R41.82 - ALTERED MENTAL STATUS, UNSPECIFIED
[2018-06-25] MEDS ORDERED: ALBUTEROL SO4 0.083% IH SOL 2.5 MG/3 ML VIAL.NEB. NEB PRN (19:38)
--- NOTE | 2018-06-25 20:19 | CONSULT ---
Consult - text type - Consultation Consultation Note: NEUROLOGY CONSULTATION is greatly appreciated: Events reviewed, Pt. examined. 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 Later complicated by seizure well-contdrolled on Levetiracetam 750 mg q 12 hrs. Rx included: Duloxetine; Isosorbide; Pantoprazole; Pregabalin (100 mg TID); Tamsulosin; Albuterol; Apixaban; SYMBICORT; levETIRAcetam 750 mg PO BID; Atorvastatin; Prednisone 10 mg PO; Daliresp; Ferrous Sulfate; and Metoprolol. Admitted 06/23 with exacerbation of COPD and hypoxemia. TSH=0.12 This AM was felt to be confused with increased speech dysfunction. Now apparently back to baseline. WBC this AM 12K CT of head (reviewed): Chronic left MCA-territory infarct with encephalomalacia ; mild diffuse atrophy; scattered microvascular changes, calcified intracranial arteries. Carotid duplex doppler (reviewed but not yet reported): Left ICA intact. Moderate right ICA stenosis with large plaque TONY: S/P PPM, Cor irreg. No head trauma. Diffuse wheezing NEURO: Awake, alert. Ox3. Follows 1, 2, 3 step commands. Moderate expressive ( non-fluent aphasia). - frontal release CN: Right field cut. Full EOM's. Gag OK. Decreased tongue MAXWELL's. No facial Motor: Min right drift and sl. decreased MAXWELL's. Brisk reflexes except AJ''s. Toes downgoing. Coord: No FTN dystaxia Sensory: Decreased vibration both feet Gait: Stiff-legged, Shotedned strides. Mild right circumduction. IMP: 1. Moderate, chronic, left cerebral dysfunction. 2. Mild underlying B/L cerebral dysfunction 3. Peripheral neuropathy 4. Seizure disorder. Possible breakthrough seizure this AM (unwitnessed) with post-ictal confusion and increased aphasia. 5. Possible right carotid stenosis SUGGEST: R/o occult infection; hypoxemia and other causes of Toxic-metabolic worsening. Check B12, T4, levetiracetam level Empirically increase levetiracetam to 1000 mg q 12 hrs. Neuro f/u as out patient. Thank you very much, Salvatore Rodriguez MD
[2018-06-25] MEDS: ACETAMINOPHEN 325 MG TABLET (FP) PO PRN (22:19)
[2018-06-25] MEDS: ATORVASTATIN CA 10 MG TABLET (FP) PO SCH (22:21)
[2018-06-25 23:17] LABS: EPI CELLS 0.2 /HPF (0-5); URINE APPEARANCE CLEAR; URINE BACTERIA 0.3 /hpf (NEGATIVE); URINE BILIRUBIN NEGATIVE (NEGATIVE); URINE CASTS 1 /hpf (0-8); URINE COLOR YELLOW; URINE GLUCOSE (UA) NEGATIVE (NEGATIVE); URINE KETONE NEGATIVE (NEGATIVE); URINE LEUK ESTERASE NEGATIVE (NEGATIVE); URINE NITRITE NEGATIVE (NEGATIVE); URINE PROTEIN 1+ (NEGATIVE); URINE RBC 2 /hpf (0-4); URINE UROBILINOGEN 0.2 mg/dL (0.2-1.0); URINE WBC 0 /hpf (0-5)
[2018-06-26] MEDS: ALBUTEROL SO4 2.5/IPRATROPIUM 0.5 INH SOL 3 ML VIAL.NEB. NEB SCH ×5 (00:25→15:30)
[2018-06-26] MEDS: methylPREDNISolone NA SUCC 40 MG/1 ML VIAL IVPB SCH ×3 (02:43→17:48)
[2018-06-26] MEDS: PREGABALIN 100 MG CAPSULE PO SCH ×3 (06:14→22:21)
[2018-06-26 07:23] LABS: HEMATOCRIT 46.1 % (35.4-49); HEMOGLOBIN 15.1 GM/dL (11.7-16.9); MCH 28.5 pg (25.7-33.7); MCHC 32.9 g/dl (32.0-35.9); MEAN CELL VOLUME 86.8 fl (80-96); MEAN PLT VOLUME 9.9 fl (7.5-11.1); PLATELET COUNT 179 K/MM3 (134-434); RBC 5.31 M/mm3 (4.00-5.60); RDW 17.8 % (11.9-15.9); WHITE BLOOD COUNT 8.4 K/mm3 (4.0-10.0)
[2018-06-26 07:40] LABS: ALBUMIN 3.1 g/dl (3.4-5.0); ALK PHOS 46 U/L (45-117); ANION GAP 8 MMOL/L (8-16); BILIRUBIN,TOTAL 0.3 mg/dL (0.2-1); BLOOD UREA NITROGEN 32 mg/dL (7-18); CALCIUM 8.7 mg/dL (8.5-10.1); CHLORIDE 100 mmol/L (98-107); CO2 31 mmol/L (21-32); CREATININE 1.1 mg/dL (0.55-1.3); GLUCOSE,RANDOM 108 mg/dL (74-106); POTASSIUM 4.3 mmol/L (3.5-5.1); SGOT/AST 9 U/L (15-37); SGPT/ALT 12 U/L (13-61); SODIUM 139 mmol/L (136-145)
[2018-06-26] MEDS: TAMSULOSIN HCL 0.4 MG CAP PO SCH (08:43)
[2018-06-26] MEDS ORDERED: DEXTROSE 5%-WATER 100 ML IVPB ONE (09:29)
[2018-06-26] MEDS ORDERED: PT OWN MED DRAWER 7, Y5N ONE (09:29)
--- NOTE | 2018-06-26 09:32 | PN ---
Progress Note (short form) - Note Progress Note: Awake and alert. Reports feeling better. Still mildly tachypneic at rest. No acute events overnight. Intake & Output 06/23/18 06/24/18 06/25/18 06/26/18 23:59 23:59 23:59 23:59 Intake Total 10 1740 100 0 Output Total 690 850 200 500 Balance -680 890 -100 -500 Weight 154 lb 15.759 oz 150 lb 3.2 oz Last Vital Signs Temp Pulse Resp BP Pulse Ox 97.4 F L 60 20 143/91 94 L 06/26/18 06:42 06/26/18 06:42 06/26/18 06:42 06/26/18 06:42 06/25/18 21:00 Active Medications Acetaminophen (Tylenol -) 650 mg PO Q4H PRN PRN Reason: FEVER Last Admin: 06/25/18 22:19 Dose: 650 mg Albuterol Sulfate (Ventolin 0.083% Nebulizer Soln -) 1 amp NEB Q6H PRN PRN Reason: SHORTNESS OF BREATH/WHEEZING Albuterol/Ipratropium (Duoneb -) 1 amp NEB RQ4H DIANNE Last Admin: 06/26/18 04:35 Dose: Not Given Apixaban (Eliquis -) 2.5 mg PO BID [facility] Last Admin: 06/25/18 22:21 Dose: 2.5 mg Atorvastatin Calcium (Lipitor -) 10 mg PO HS [facility] Last Admin: 06/25/18 22:21 Dose: 10 mg Duloxetine HCl (Cymbalta -) 60 mg PO DAILY [facility] Ceftriaxone Sodium 2 gm/ (Dextrose) 100 mls @ 200 mls/hr IVPB DAILY [facility]; Protocol Levetiracetam (Keppra -) 750 mg PO BID [facility] Last Admin: 06/25/18 22:20 Dose: 750 mg Methylprednisolone Sodium Succinate (Solu-Medrol -) 60 mg IVPB Q8H-IV [facility] Last Admin: 06/26/18 02:43 Dose: 60 mg Metoprolol Succinate (Toprol Xl -) 50 mg PO BID [facility] Last Admin: 06/25/18 22:20 Dose: 50 mg Pregabalin (Lyrica -) 100 mg PO TID [facility] Last Admin: 06/26/18 06:14 Dose: 100 mg Roflumilast (Daliresp -) 500 mcg PO DAILY [facility] Tamsulosin HCl (Flomax -) 0.4 mg PO DAILY@0830 [facility] Last Admin: 06/26/18 08:43 Dose: 0.4 mg Gen: Less tachypneic with speaking Heart: RRR Lung: distant breath sounds, scattered rhonchi and expiratory wheeze Abd: soft, nontender Ext: no edema Laboratory Results - last 24 hr 06/25/18 06/25/18 06/25/18 07:15 10:43 10:45 WBC RBC Hgb Hct MCV MCH MCHC RDW Plt Count MPV Absolute Neuts (auto) Neutrophils % Neutrophils % (Manual) 95.0 H Band Neutrophils % 2.0 Lymphocytes % Lymphocytes % (Manual) 3.0 L D Monocytes % Monocytes % (Manual) 0 L D Eosinophils % Eosinophils % (Manual) 0.0 Basophils % Basophils % (Manual) 0.0 Myelocytes % (Man) 0 D Promyelocytes % (Man) 0 Blast Cells % (Manual) 0 Nucleated RBC % Metamyelocytes 0 Hypochromia 0 Platelet Estimate Normal Polychromasia 0 Poikilocytosis 1+ Anisocytosis 1+ Microcytosis 1+ Macrocytosis 0 Ovalocytes 1+ ESR PT with INR INR PTT (Actin FS) Anticoagulation Therapy No Result Required. Puncture Site No Result Required. ABG pH 7.44 ABG pCO2 at Pt Temp 39.4 ABG pO2 at Pt Temp 69.5 L ABG HCO3 26.3 ABG O2 Sat (Measured) 92.5 L ABG O2 Content 16.6 ABG Base Excess 2.6 H Aristides Test No Result Required. O2 Delivery Device No Result Required. Oxygen Flow Rate No Result Required. Vent Mode No Result Required. Vent Rate No Result Required. Mechanical Rate No Result Required. Pressure Support Vent No Result Required. Sodium Potassium Chloride Carbon Dioxide Anion Gap BUN Creatinine Creat Clearance w eGFR POC Glucometer 145 Random Glucose Hemoglobin A1c % Calcium Phosphorus Magnesium Total Bilirubin AST ALT Alkaline Phosphatase Ammonia Creatine Kinase Troponin I C-Reactive Protein Total Protein Albumin Triglycerides Cholesterol Total LDL Cholesterol HDL Cholesterol Vitamin B12 TSH Urine Color Urine Appearance Urine pH Ur Specific [place] Urine Protein Urine Glucose (UA) Urine Ketones Urine Blood Urine Nitrite Urine Bilirubin Urine Urobilinogen Ur Leukocyte Esterase Urine WBC (Auto) Urine RBC (Auto) Urine Casts (Auto) U Epithel Cells (Auto) Urine Bacteria (Auto) 06/25/18 06/25/18 06/25/18 11:50 11:50 11:50 WBC 12.1 H RBC 5.52 Hgb 15.6 Hct 48.6 MCV 88.0 MCH 28.3 MCHC 32.1 RDW 17.9 H Plt Count 202 MPV 9.7 Absolute Neuts (auto) 11.0 H Neutrophils % 91.0 H Neutrophils % (Manual) Band Neutrophils % Lymphocytes % 3.5 L D Lymphocytes % (Manual) Monocytes % 4.6 D Monocytes % (Manual) Eosinophils % 0.0 Eosinophils % (Manual) Basophils % 0.9 D Basophils % (Manual) Myelocytes % (Man) Promyelocytes % (Man) Blast Cells % (Manual) Nucleated RBC % 0 Metamyelocytes Hypochromia Platelet Estimate Polychromasia Poikilocytosis Anisocytosis Microcytosis Macrocytosis Ovalocytes ESR 3 PT with INR 13.50 H INR 1.14 H PTT (Actin FS) 36.6 H Anticoagulation Therapy Puncture Site ABG pH ABG pCO2 at Pt Temp ABG pO2 at Pt Temp ABG HCO3 ABG O2 Sat (Measured) ABG O2 Content ABG Base Excess Aristides Test O2 Delivery Device Oxygen Flow Rate Vent Mode Vent Rate Mechanical Rate Pressure Support Vent Sodium 139 Potassium 4.1 Chloride 100 Carbon Dioxide 29 Anion Gap 10 BUN 31 H Creatinine 1.2 Creat Clearance w eGFR 58.40 POC Glucometer Random Glucose 68 L Hemoglobin A1c % Calcium 9.0 Phosphorus 4.1 Magnesium 2.4 Total Bilirubin 0.2 AST 11 L ALT 12 L Alkaline Phosphatase 55 Ammonia Creatine Kinase 34 Troponin I < 0.02 C-Reactive Protein 0.9 H Total Protein 6.6 Albumin 3.3 L Triglycerides 148 Cholesterol 170 Total LDL Cholesterol 114 H HDL Cholesterol 38 L Vitamin B12 598 TSH 0.18 L D Urine Color Urine Appearance Urine pH Ur Specific [place] Urine Protein Urine Glucose (UA) Urine Ketones Urine Blood Urine Nitrite Urine Bilirubin Urine Urobilinogen Ur Leukocyte Esterase Urine WBC (Auto) Urine RBC (Auto) Urine Casts (Auto) U Epithel Cells (Auto) Urine Bacteria (Auto) 06/25/18 06/25/18 06/25/18 11:50 11:50 23:05 WBC RBC Hgb Hct MCV MCH MCHC RDW Plt Count MPV Absolute Neuts (auto) Neutrophils % Neutrophils % (Manual) Band Neutrophils % Lymphocytes % Lymphocytes % (Manual) Monocytes % Monocytes % (Manual) Eosinophils % Eosinophils % (Manual) Basophils % Basophils % (Manual) Myelocytes % (Man) Promyelocytes % (Man) Blast Cells % (Manual) Nucleated RBC % Metamyelocytes Hypochromia Platelet Estimate Polychromasia Poikilocytosis Anisocytosis Microcytosis Macrocytosis Ovalocytes ESR PT with INR INR PTT (Actin FS) Anticoagulation Therapy Puncture Site ABG pH ABG pCO2 at Pt Temp ABG pO2 at Pt Temp ABG HCO3 ABG O2 Sat (Measured) ABG O2 Content ABG Base Excess Aristides Test O2 Delivery Device Oxygen Flow Rate Vent Mode Vent Rate Mechanical Rate Pressure Support Vent Sodium Potassium Chloride Carbon Dioxide Anion Gap BUN Creatinine Creat Clearance w eGFR POC Glucometer Random Glucose Hemoglobin A1c % 5.4 Calcium Phosphorus Magnesium Total Bilirubin AST ALT Alkaline Phosphatase Ammonia 16.60 Creatine Kinase Troponin I C-Reactive Protein Total Protein Albumin Triglycerides Cholesterol Total LDL Cholesterol HDL Cholesterol Vitamin B12 TSH Urine Color Yellow Urine Appearance Clear Urine pH 5.0 Ur Specific [place] 1.017 Urine Protein 1+ H Urine Glucose (UA) Negative Urine Ketones Negative Urine Blood Negative Urine Nitrite Negative Urine Bilirubin Negative Urine Urobilinogen 0.2 Ur Leukocyte Esterase Negative Urine WBC (Auto) 0 Urine RBC (Auto) 2 Urine Casts (Auto) 1 U Epithel Cells (Auto) 0.2 Urine Bacteria (Auto) 0.3 06/26/18 06/26/18 06:00 06:00 WBC 8.4 RBC 5.31 Hgb 15.1 Hct 46.1 MCV 86.8 MCH 28.5 MCHC 32.9 RDW 17.8 H Plt Count 179 MPV 9.9 Absolute Neuts (auto) Neutrophils % Neutrophils % (Manual) Band Neutrophils % Lymphocytes % Lymphocytes % (Manual) Monocytes % Monocytes % (Manual) Eosinophils % Eosinophils % (Manual) Basophils % Basophils % (Manual) Myelocytes % (Man) Promyelocytes % (Man) Blast Cells % (Manual) Nucleated RBC % Metamyelocytes Hypochromia Platelet Estimate Polychromasia Poikilocytosis Anisocytosis Microcytosis Macrocytosis Ovalocytes ESR PT with INR INR PTT (Actin FS) Anticoagulation Therapy Puncture Site ABG pH ABG pCO2 at Pt Temp ABG pO2 at Pt Temp ABG HCO3 ABG O2 Sat (Measured) ABG O2 Content ABG Base Excess Aristides Test O2 Delivery Device Oxygen Flow Rate Vent Mode Vent Rate Mechanical Rate Pressure Support Vent Sodium 139 Potassium 4.3 Chloride 100 Carbon Dioxide 31 Anion Gap 8 BUN 32 H Creatinine 1.1 Creat Clearance w eGFR 64.57 POC Glucometer Random Glucose 108 H Hemoglobin A1c % Calcium 8.7 Phosphorus Magnesium Total Bilirubin 0.3 AST 9 L ALT 12 L Alkaline Phosphatase 46 Ammonia Creatine Kinase Troponin I C-Reactive Protein Total Protein 6.0 L Albumin 3.1 L Triglycerides Cholesterol Total LDL Cholesterol HDL Cholesterol Vitamin B12 TSH Urine Color Urine Appearance Urine pH Ur Specific [place] Urine Protein Urine Glucose (UA) Urine Ketones Urine Blood Urine Nitrite Urine Bilirubin Urine Urobilinogen Ur Leukocyte Esterase Urine WBC (Auto) Urine RBC (Auto) Urine Casts (Auto) U Epithel Cells (Auto) Urine Bacteria (Auto) ASSESSMENT AND PLAN: Acute on Chronic Hypoxic Respiratory Failure Acute COPD Exacerbation CAD LV Systolic Dysfunction Paroxysmal Atrial Fibrillation Thoracic Aneurysm - IV medrol - inhaled bronchodilators - empiric antibiotics - NC O2 to maintain saturation 88% to 92% - rate controlled - continue anticoagulation - PO as tolerated Dr Alberto
--- NOTE | 2018-06-26 09:45 | PN ---
Progress Note, Physician Chief Complaint: COPD Exacerbation Moderate pericardial effusion History of Present Illness: Previous notes and events reviewed awake and alert NAD denies chest pain, SOB - Current Medication List Current Medications: Active Medications Acetaminophen (Tylenol -) 650 mg PO Q4H PRN PRN Reason: FEVER Last Admin: 06/25/18 22:19 Dose: 650 mg Albuterol Sulfate (Ventolin 0.083% Nebulizer Soln -) 1 amp NEB Q6H PRN PRN Reason: SHORTNESS OF BREATH/WHEEZING Albuterol/Ipratropium (Duoneb -) 1 amp NEB RQ4H [facility] Last Admin: 06/26/18 04:35 Dose: Not Given Apixaban (Eliquis -) 2.5 mg PO BID [facility] Last Admin: 06/25/18 22:21 Dose: 2.5 mg Atorvastatin Calcium (Lipitor -) 10 mg PO HS [facility] Last Admin: 06/25/18 22:21 Dose: 10 mg Duloxetine HCl (Cymbalta -) 60 mg PO DAILY [facility] Ceftriaxone Sodium 2 gm/ (Dextrose) 100 mls @ 200 mls/hr IVPB DAILY [facility]; Protocol Levetiracetam (Keppra -) 750 mg PO BID [facility] Last Admin: 06/25/18 22:20 Dose: 750 mg Methylprednisolone Sodium Succinate (Solu-Medrol -) 60 mg IVPB Q8H-IV [facility] Last Admin: 06/26/18 02:43 Dose: 60 mg Metoprolol Succinate (Toprol Xl -) 50 mg PO BID [facility] Last Admin: 06/25/18 22:20 Dose: 50 mg Pregabalin (Lyrica -) 100 mg PO TID [facility] Last Admin: 06/26/18 06:14 Dose: 100 mg Roflumilast (Daliresp -) 500 mcg PO DAILY [facility] Tamsulosin HCl (Flomax -) 0.4 mg PO DAILY@0830 [facility] Last Admin: 06/26/18 08:43 Dose: 0.4 mg - Objective Vital Signs: Vital Signs Temperature 97.4 F L 06/26/18 06:42 Pulse Rate 60 06/26/18 06:42 Respiratory Rate 20 06/26/18 06:42 Blood Pressure 143/91 06/26/18 06:42 O2 Sat by Pulse Oximetry (%) 94 L 06/25/18 21:00 Constitutional: Yes: No Distress, Calm Eyes: Yes: Conjunctiva Clear HENT: Yes: Atraumatic Cardiovascular: Yes: Regular Rate and Rhythm Respiratory: Yes: On Nasal O2, Rhonchi Gastrointestinal: Yes: Normal Bowel Sounds, Soft Genitourinary: Yes: Incontinence Musculoskeletal: Yes: Muscle Weakness Extremities: Yes: WNL Edema: No Neurological: Yes: Alert, Pre-Existing Deficit Psychiatric: Yes: Alert Labs: CBC, BMP 06/26/18 06:00 06/26/18 06:00 INR, PTT INR 1.14 (0.83-1.09) H 06/25/18 11:50 Laboratory Tests 06/23/18 06/23/18 06/23/18 11:33 11:33 11:33 WBC 6.9 RBC 5.11 Hgb 14.7 Hct 45.3 MCV 88.6 MCH 28.8 MCHC 32.5 RDW 18.3 H Plt Count 148 MPV 9.3 Absolute Neuts (auto) 5.9 Neutrophils % 86.0 H Neutrophils % (Manual) Band Neutrophils % Lymphocytes % 8.7 Lymphocytes % (Manual) Monocytes % 4.3 Monocytes % (Manual) Eosinophils % 0.4 Eosinophils % (Manual) Basophils % 0.6 Basophils % (Manual) Myelocytes % (Man) Promyelocytes % (Man) Blast Cells % (Manual) Nucleated RBC % 0 Metamyelocytes Hypochromia Platelet Estimate Polychromasia Poikilocytosis Anisocytosis Microcytosis Macrocytosis Ovalocytes ESR PT with INR 15.50 H INR 1.31 H PTT (Actin FS) Anticoagulation Therapy Puncture Site ABG pH ABG pCO2 at Pt Temp ABG pO2 at Pt Temp ABG HCO3 ABG O2 Sat (Measured) ABG O2 Content ABG Base Excess Aristides Test Carboxyhemoglobin Methemoglobin O2 Delivery Device Oxygen Flow Rate Vent Mode Vent Rate Mechanical Rate Pressure Support Vent Sodium 142 Potassium 4.2 Chloride 107 Carbon Dioxide 28 Anion Gap 7 L BUN 19 H Creatinine 1.2 Creat Clearance w eGFR 58.40 POC Glucometer Random Glucose 95 Hemoglobin A1c % Lactic Acid Calcium 8.4 L Phosphorus Magnesium 2.1 Total Bilirubin 0.3 AST 17 ALT 13 Alkaline Phosphatase 53 Ammonia Creatine Kinase 42 Troponin I < 0.02 C-Reactive Protein B-Natriuretic Peptide Total Protein 6.5 Albumin 3.4 Triglycerides Cholesterol Total LDL Cholesterol HDL Cholesterol Vitamin B12 TSH Urine Color Urine Appearance Urine pH Ur Specific Drummond Urine Protein Urine Glucose (UA) Urine Ketones Urine Blood Urine Nitrite Urine Bilirubin Urine Urobilinogen Ur Leukocyte Esterase Urine WBC (Auto) Urine RBC (Auto) Urine Casts (Auto) U Epithel Cells (Auto) Urine Bacteria (Auto) Influenza A (Rapid) Influenza B (Rapid) Group A Strep Rapid 06/23/18 06/23/18 06/23/18 11:56 11:56 14:15 WBC RBC Hgb Hct MCV MCH MCHC RDW Plt Count MPV Absolute Neuts (auto) Neutrophils % Neutrophils % (Manual) Band Neutrophils % Lymphocytes % Lymphocytes % (Manual) Monocytes % Monocytes % (Manual) Eosinophils % Eosinophils % (Manual) Basophils % Basophils % (Manual) Myelocytes % (Man) Promyelocytes % (Man) Blast Cells % (Manual) Nucleated RBC % Metamyelocytes Hypochromia Platelet Estimate Polychromasia Poikilocytosis Anisocytosis Microcytosis Macrocytosis Ovalocytes ESR PT with INR INR PTT (Actin FS) Anticoagulation Therapy Puncture Site ABG pH ABG pCO2 at Pt Temp ABG pO2 at Pt Temp ABG HCO3 ABG O2 Sat (Measured) ABG O2 Content ABG Base Excess Aristides Test Carboxyhemoglobin Methemoglobin O2 Delivery Device Oxygen Flow Rate Vent Mode Vent Rate Mechanical Rate Pressure Support Vent Sodium Potassium Chloride Carbon Dioxide Anion Gap BUN Creatinine Creat Clearance w eGFR POC Glucometer Random Glucose Hemoglobin A1c % Lactic Acid Calcium Phosphorus Magnesium Total Bilirubin AST ALT Alkaline Phosphatase Ammonia Creatine Kinase Troponin I C-Reactive Protein B-Natriuretic Peptide Total Protein Albumin Triglycerides Cholesterol Total LDL Cholesterol HDL Cholesterol Vitamin B12 TSH Urine Color Yellow Urine Appearance Clear Urine pH 5.0 Ur Specific Drummond 1.013 Urine Protein Negative Urine Glucose (UA) Negative Urine Ketones Negative Urine Blood 1+ H Urine Nitrite Negative Urine Bilirubin Negative Urine Urobilinogen 0.2 Ur Leukocyte Esterase Negative Urine WBC (Auto) 0 Urine RBC (Auto) 2 Urine Casts (Auto) 0 U Epithel Cells (Auto) 0.1 Urine Bacteria (Auto) 0.7 Influenza A (Rapid) Negative Influenza B (Rapid) Negative Group A Strep Rapid Negative 06/23/18 06/24/18 06/24/18 14:20 05:30 05:30 WBC 4.9 RBC 5.15 Hgb 14.5 Hct 44.6 MCV 86.6 MCH 28.1 MCHC 32.5 RDW 18.2 H Plt Count 172 MPV 9.5 Absolute Neuts (auto) 4.3 Neutrophils % 87.8 H Neutrophils % (Manual) Band Neutrophils % Lymphocytes % 7.8 L Lymphocytes % (Manual) Monocytes % 4.3 Monocytes % (Manual) Eosinophils % 0.0 D Eosinophils % (Manual) Basophils % 0.1 Basophils % (Manual) Myelocytes % (Man) Promyelocytes % (Man) Blast Cells % (Manual) Nucleated RBC % 0 Metamyelocytes Hypochromia Platelet Estimate Polychromasia Poikilocytosis Anisocytosis Microcytosis Macrocytosis Ovalocytes ESR PT with INR 15.50 H INR 1.31 H PTT (Actin FS) 44.7 H Anticoagulation Therapy No Result Required. Puncture Site Right radial ABG pH 7.43 ABG pCO2 at Pt Temp 41.9 ABG pO2 at Pt Temp 64.5 L ABG HCO3 27.5 H ABG O2 Sat (Measured) 90.9 L ABG O2 Content 17.8 ABG Base Excess 3.4 H Aristides Test Positive Carboxyhemoglobin 0.7 Methemoglobin 0.6 O2 Delivery Device No Result Required. Oxygen Flow Rate Yes Vent Mode No Result Required. Vent Rate No Result Required. Mechanical Rate No Result Required. Pressure Support Vent No Result Required. Sodium Potassium Chloride Carbon Dioxide Anion Gap BUN Creatinine Creat Clearance w eGFR POC Glucometer Random Glucose Hemoglobin A1c % Lactic Acid Calcium Phosphorus Magnesium Total Bilirubin AST ALT Alkaline Phosphatase Ammonia Creatine Kinase Troponin I C-Reactive Protein B-Natriuretic Peptide Total Protein Albumin Triglycerides Cholesterol Total LDL Cholesterol HDL Cholesterol Vitamin B12 TSH Urine Color Urine Appearance Urine pH Ur Specific Drummond Urine Protein Urine Glucose (UA) Urine Ketones Urine Blood Urine Nitrite Urine Bilirubin Urine Urobilinogen Ur Leukocyte Esterase Urine WBC (Auto) Urine RBC (Auto) Urine Casts (Auto) U Epithel Cells (Auto) Urine Bacteria (Auto) Influenza A (Rapid) Influenza B (Rapid) Group A Strep Rapid 06/24/18 06/24/18 06/25/18 05:30 05:30 07:15 WBC 9.8 RBC 5.63 H Hgb 16.0 Hct 49.5 H MCV 87.9 MCH 28.4 MCHC 32.3 RDW 18.3 H Plt Count 188 MPV 9.6 Absolute Neuts (auto) 9.0 H Neutrophils % 91.8 H Neutrophils % (Manual) 95.0 H Band Neutrophils % 2.0 Lymphocytes % 5.6 L D Lymphocytes % (Manual) 3.0 L D Monocytes % 2.4 L Monocytes % (Manual) 0 L D Eosinophils % 0.0 Eosinophils % (Manual) 0.0 Basophils % 0.2 Basophils % (Manual) 0.0 Myelocytes % (Man) 0 D Promyelocytes % (Man) 0 Blast Cells % (Manual) 0 Nucleated RBC % 0 Metamyelocytes 0 Hypochromia 0 Platelet Estimate Normal Polychromasia 0 Poikilocytosis 1+ Anisocytosis 1+ Microcytosis 1+ Macrocytosis 0 Ovalocytes 1+ ESR PT with INR INR PTT (Actin FS) Anticoagulation Therapy Puncture Site ABG pH ABG pCO2 at Pt Temp ABG pO2 at Pt Temp ABG HCO3 ABG O2 Sat (Measured) ABG O2 Content ABG Base Excess Aristides Test Carboxyhemoglobin Methemoglobin O2 Delivery Device Oxygen Flow Rate Vent Mode Vent Rate Mechanical Rate Pressure Support Vent Sodium 139 Potassium 3.9 Chloride 103 Carbon Dioxide 28 Anion Gap 8 BUN 25 H Creatinine 1.1 Creat Clearance w eGFR 64.57 POC Glucometer Random Glucose 113 H Hemoglobin A1c % Lactic Acid 1.0 Calcium 8.7 Phosphorus 4.1 Magnesium 2.2 Total Bilirubin 0.4 AST 8 L ALT 12 L Alkaline Phosphatase 49 Ammonia Creatine Kinase 25 L Troponin I < 0.02 C-Reactive Protein B-Natriuretic Peptide 2817.9 H Total Protein 6.4 Albumin 3.2 L Triglycerides Cholesterol Total LDL Cholesterol HDL Cholesterol Vitamin B12 TSH Urine Color Urine Appearance Urine pH Ur Specific Drummond Urine Protein Urine Glucose (UA) Urine Ketones Urine Blood Urine Nitrite Urine Bilirubin Urine Urobilinogen Ur Leukocyte Esterase Urine WBC (Auto) Urine RBC (Auto) Urine Casts (Auto) U Epithel Cells (Auto) Urine Bacteria (Auto) Influenza A (Rapid) Influenza B (Rapid) Group A Strep Rapid 06/25/18 06/25/18 06/25/18 07:15 10:43 10:45 WBC RBC Hgb Hct MCV MCH MCHC RDW Plt Count MPV Absolute Neuts (auto) Neutrophils % Neutrophils % (Manual) Band Neutrophils % Lymphocytes % Lymphocytes % (Manual) Monocytes % Monocytes % (Manual) Eosinophils % Eosinophils % (Manual) Basophils % Basophils % (Manual) Myelocytes % (Man) Promyelocytes % (Man) Blast Cells % (Manual) Nucleated RBC % Metamyelocytes Hypochromia Platelet Estimate Polychromasia Poikilocytosis Anisocytosis Microcytosis Macrocytosis Ovalocytes ESR PT with INR INR PTT (Actin FS) Anticoagulation Therapy No Result Required. Puncture Site No Result Required. ABG pH 7.44 ABG pCO2 at Pt Temp 39.4 ABG pO2 at Pt Temp 69.5 L ABG HCO3 26.3 ABG O2 Sat (Measured) 92.5 L ABG O2 Content 16.6 ABG Base Excess 2.6 H Aristides Test No Result Required. Carboxyhemoglobin Methemoglobin O2 Delivery Device No Result Required. Oxygen Flow Rate No Result Required. Vent Mode No Result Required. Vent Rate No Result Required. Mechanical Rate No Result Required. Pressure Support Vent No Result Required. Sodium 138 Potassium 4.7 Chloride 101 Carbon Dioxide 31 Anion Gap 7 L BUN 30 H Creatinine 1.3 Creat Clearance w eGFR 53.25 POC Glucometer 145 Random Glucose 112 H Hemoglobin A1c % Lactic Acid Calcium 9.0 Phosphorus 4.3 Magnesium 2.4 Total Bilirubin 0.6 AST 12 L ALT 13 Alkaline Phosphatase 57 Ammonia Creatine Kinase Troponin I C-Reactive Protein B-Natriuretic Peptide Total Protein 7.1 Albumin 3.5 Triglycerides Cholesterol Total LDL Cholesterol HDL Cholesterol Vitamin B12 TSH Urine Color Urine Appearance Urine pH Ur Specific Drummond Urine Protein Urine Glucose (UA) Urine Ketones Urine Blood Urine Nitrite Urine Bilirubin Urine Urobilinogen Ur Leukocyte Esterase Urine WBC (Auto) Urine RBC (Auto) Urine Casts (Auto) U Epithel Cells (Auto) Urine Bacteria (Auto) Influenza A (Rapid) Influenza B (Rapid) Group A Strep Rapid 06/25/18 06/25/18 06/25/18 11:50 11:50 11:50 WBC 12.1 H RBC 5.52 Hgb 15.6 Hct 48.6 MCV 88.0 MCH 28.3 MCHC 32.1 RDW 17.9 H Plt Count 202 MPV 9.7 Absolute Neuts (auto) 11.0 H Neutrophils % 91.0 H Neutrophils % (Manual) Band Neutrophils % Lymphocytes % 3.5 L D Lymphocytes % (Manual) Monocytes % 4.6 D Monocytes % (Manual) Eosinophils % 0.0 Eosinophils % (Manual) Basophils % 0.9 D Basophils % (Manual) Myelocytes % (Man) Promyelocytes % (Man) Blast Cells % (Manual) Nucleated RBC % 0 Metamyelocytes Hypochromia Platelet Estimate Polychromasia Poikilocytosis Anisocytosis Microcytosis Macrocytosis Ovalocytes ESR 3 PT with INR 13.50 H INR 1.14 H PTT (Actin FS) 36.6 H Anticoagulation Therapy Puncture Site ABG pH ABG pCO2 at Pt Temp ABG pO2 at Pt Temp ABG HCO3 ABG O2 Sat (Measured) ABG O2 Content ABG Base Excess Aristides Test Carboxyhemoglobin Methemoglobin O2 Delivery Device Oxygen Flow Rate Vent Mode Vent Rate Mechanical Rate Pressure Support Vent Sodium 139 Potassium 4.1 Chloride 100 Carbon Dioxide 29 Anion Gap 10 BUN 31 H Creatinine 1.2 Creat Clearance w eGFR 58.40 POC Glucometer Random Glucose 68 L Hemoglobin A1c % Lactic Acid Calcium 9.0 Phosphorus 4.1 Magnesium 2.4 Total Bilirubin 0.2 AST 11 L ALT 12 L Alkaline Phosphatase 55 Ammonia Creatine Kinase 34 Troponin I < 0.02 C-Reactive Protein 0.9 H B-Natriuretic Peptide Total Protein 6.6 Albumin 3.3 L Triglycerides 148 Cholesterol 170 Total LDL Cholesterol 114 H HDL Cholesterol 38 L Vitamin B12 598 TSH 0.18 L D Urine Color Urine Appearance Urine pH Ur Specific Drummond Urine Protein Urine Glucose (UA) Urine Ketones Urine Blood Urine Nitrite Urine Bilirubin Urine Urobilinogen Ur Leukocyte Esterase Urine WBC (Auto) Urine RBC (Auto) Urine Casts (Auto) U Epithel Cells (Auto) Urine Bacteria (Auto) Influenza A (Rapid) Influenza B (Rapid) Group A Strep Rapid 06/25/18 06/25/18 06/25/18 11:50 11:50 23:05 WBC RBC Hgb Hct MCV MCH MCHC RDW Plt Count MPV Absolute Neuts (auto) Neutrophils % Neutrophils % (Manual) Band Neutrophils % Lymphocytes % Lymphocytes % (Manual) Monocytes % Monocytes % (Manual) Eosinophils % Eosinophils % (Manual) Basophils % Basophils % (Manual) Myelocytes % (Man) Promyelocytes % (Man) Blast Cells % (Manual) Nucleated RBC % Metamyelocytes Hypochromia Platelet Estimate Polychromasia Poikilocytosis Anisocytosis Microcytosis Macrocytosis Ovalocytes ESR PT with INR INR PTT (Actin FS) Anticoagulation Therapy Puncture Site ABG pH ABG pCO2 at Pt Temp ABG pO2 at Pt Temp ABG HCO3 ABG O2 Sat (Measured) ABG O2 Content ABG Base Excess Aristides Test Carboxyhemoglobin Methemoglobin O2 Delivery Device Oxygen Flow Rate Vent Mode Vent Rate Mechanical Rate Pressure Support Vent Sodium Potassium Chloride Carbon Dioxide Anion Gap BUN Creatinine Creat Clearance w eGFR POC Glucometer Random Glucose Hemoglobin A1c % 5.4 Lactic Acid Calcium Phosphorus Magnesium Total Bilirubin AST ALT Alkaline Phosphatase Ammonia 16.60 Creatine Kinase Troponin I C-Reactive Protein B-Natriuretic Peptide Total Protein Albumin Triglycerides Cholesterol Total LDL Cholesterol HDL Cholesterol Vitamin B12 TSH Urine Color Yellow Urine Appearance Clear Urine pH 5.0 Ur Specific Drummond 1.017 Urine Protein 1+ H Urine Glucose (UA) Negative Urine Ketones Negative Urine Blood Negative Urine Nitrite Negative Urine Bilirubin Negative Urine Urobilinogen 0.2 Ur Leukocyte Esterase Negative Urine WBC (Auto) 0 Urine RBC (Auto) 2 Urine Casts (Auto) 1 U Epithel Cells (Auto) 0.2 Urine Bacteria (Auto) 0.3 Influenza A (Rapid) Influenza B (Rapid) Group A Strep Rapid 06/26/18 06/26/18 06:00 06:00 WBC 8.4 RBC 5.31 Hgb 15.1 Hct 46.1 MCV 86.8 MCH 28.5 MCHC 32.9 RDW 17.8 H Plt Count 179 MPV 9.9 Absolute Neuts (auto) Neutrophils % Neutrophils % (Manual) Band Neutrophils % Lymphocytes % Lymphocytes % (Manual) Monocytes % Monocytes % (Manual) Eosinophils % Eosinophils % (Manual) Basophils % Basophils % (Manual) Myelocytes % (Man) Promyelocytes % (Man) Blast Cells % (Manual) Nucleated RBC % Metamyelocytes Hypochromia Platelet Estimate Polychromasia Poikilocytosis Anisocytosis Microcytosis Macrocytosis Ovalocytes ESR PT with INR INR PTT (Actin FS) Anticoagulation Therapy Puncture Site ABG pH ABG pCO2 at Pt Temp ABG pO2 at Pt Temp ABG HCO3 ABG O2 Sat (Measured) ABG O2 Content ABG Base Excess Aristides Test Carboxyhemoglobin Methemoglobin O2 Delivery Device Oxygen Flow Rate Vent Mode Vent Rate Mechanical Rate Pressure Support Vent Sodium 139 Potassium 4.3 Chloride 100 Carbon Dioxide 31 Anion Gap 8 BUN 32 H Creatinine 1.1 Creat Clearance w eGFR 64.57 POC Glucometer Random Glucose 108 H Hemoglobin A1c % Lactic Acid Calcium 8.7 Phosphorus Magnesium Total Bilirubin 0.3 AST 9 L ALT 12 L Alkaline Phosphatase 46 Ammonia Creatine Kinase Troponin I C-Reactive Protein B-Natriuretic Peptide Total Protein 6.0 L Albumin 3.1 L Triglycerides Cholesterol Total LDL Cholesterol HDL Cholesterol Vitamin B12 TSH Urine Color Urine Appearance Urine pH Ur Specific Drummond Urine Protein Urine Glucose (UA) Urine Ketones Urine Blood Urine Nitrite Urine Bilirubin Urine Urobilinogen Ur Leukocyte Esterase Urine WBC (Auto) Urine RBC (Auto) Urine Casts (Auto) U Epithel Cells (Auto) Urine Bacteria (Auto) Influenza A (Rapid) Influenza B (Rapid) Group A Strep Rapid Problem List - Problems (1) COPD exacerbation Assessment/Plan: -O2 via NC -bronchodilators -keep SpO2 >90% -IV solumedrol -ID on board -continue IV ceftriaxone Code(s): J44.1 - CHRONIC OBSTRUCTIVE PULMONARY DISEASE W (ACUTE) EXACERBATION (2) Acute kidney injury Assessment/Plan: -BUN/Cr 32/1.1 -continue to monitor renal function Code(s): N17.9 - ACUTE KIDNEY FAILURE, UNSPECIFIED (3) Aortic aneurysm Assessment/Plan: -cardiology on board Code(s): I71.9 - AORTIC ANEURYSM OF UNSPECIFIED SITE, WITHOUT RUPTURE (4) CHF (congestive heart failure) Assessment/Plan: -cardiology on board -1L fluid restriction -BNP 2817.9--will monitor for downtrend -daily weights -ECHO reviewed Code(s): I50.9 - HEART FAILURE, UNSPECIFIED (5) Pericardial effusion Assessment/Plan: -cardiology on board -Echo shows moderate pericardial effusion Code(s): I31.3 - PERICARDIAL EFFUSION (NONINFLAMMATORY) (6) Seizure Assessment/Plan: -continue keppra -fall and seizure precautions Code(s): R56.9 - UNSPECIFIED CONVULSIONS (7) Chronic a-fib Assessment/Plan: -cardiology on board -continue with Eliquis and metoprolol for rate control Code(s): I48.2 - CHRONIC ATRIAL FIBRILLATION (8) Altered mental status Assessment/Plan: -neurology consult -carotid doppler shows moderate atherosclerotic disease with low velocities -brain CT scan show no gross acute infarct or intracranial hemorrhage -fall precaution -neuro checks Code(s): R41.82 - ALTERED MENTAL STATUS, UNSPECIFIED Assessment/Plan see problem list dvt ppx
[2018-06-26] MEDS: levETIRAcetam 500 MG TABLET (FP) PO SCH ×2 (09:50→22:21)
[2018-06-26] MEDS: APIXABAN 2.5 MG TABLET PO SCH ×2 (09:50→22:21)
[2018-06-26] MEDS: CEFTRIAXONE 2 GM in DEXTROSE 5%-WATER 100 ML IVPB SCH (09:51)
[2018-06-26] MEDS: DULoxetine HCL 30 MG CAPSULE.DR (FP) PO SCH (09:51)
[2018-06-26] MEDS: ROFLUMILAST 500 MCG TABLET PO SCH (09:53)
--- NOTE | 2018-06-26 11:27 | PN ---
Progress Note, [employer] - Note Progress Note: Selected Entries 06/25/18 06/25/18 06/25/18 01:20 05:13 09:00 Breakfast Diet Tolerated Temperature 97.6 F 97.4 F L 98.2 F 06/25/18 06/25/18 06/26/18 18:10 22:00 06:42 Breakfast Diet Tolerated Temperature 98.1 F 98.1 F 97.4 F L 06/26/18 06/26/18 09:55 10:00 Breakfast 100% Diet Tolerated Well Temperature 97.9 F Laboratory Tests 06/25/18 06/26/18 07:15 06:00 WBC 9.8 8.4 Silent aspiration noted on MBS yesterday. Diet downgraded to Dys whole and nectar thick liquid. Pt's educated extensively after the study. Pt seen drinking thin coffee from coffee shop, purchased by his . Educated again, and staff informed. Request RD consult for further handouts, education, purchase of thickener for home use.
--- NOTE | 2018-06-26 13:43 | PN ---
Progress Note, Physician Chief Complaint: SEATED IN BED + COUGH NOTED NO C/O CHEST PAIN/DYSPNEA AFEBRILE WBC WL - Current Medication List Current Medications: Active Medications Acetaminophen (Tylenol -) 650 mg PO Q4H PRN PRN Reason: FEVER Last Admin: 06/25/18 22:19 Dose: 650 mg Albuterol Sulfate (Ventolin 0.083% Nebulizer Soln -) 1 amp NEB Q6H PRN PRN Reason: SHORTNESS OF BREATH/WHEEZING Albuterol/Ipratropium (Duoneb -) 1 amp NEB RQ4H [facility] Last Admin: 06/26/18 11:50 Dose: 1 amp Apixaban (Eliquis -) 2.5 mg PO BID [facility] Last Admin: 06/26/18 09:50 Dose: 2.5 mg Atorvastatin Calcium (Lipitor -) 10 mg PO HS [facility] Last Admin: 06/25/18 22:21 Dose: 10 mg Duloxetine HCl (Cymbalta -) 60 mg PO DAILY [facility] Last Admin: 06/26/18 09:51 Dose: 60 mg Ceftriaxone Sodium 2 gm/ (Dextrose) 100 mls @ 200 mls/hr IVPB DAILY [facility]; Protocol Last Admin: 06/26/18 09:51 Dose: 200 mls/hr Levetiracetam (Keppra -) 750 mg PO BID [facility] Last Admin: 06/26/18 09:50 Dose: 750 mg Methylprednisolone Sodium Succinate (Solu-Medrol -) 60 mg IVPB Q8H-IV [facility] Last Admin: 06/26/18 09:51 Dose: 60 mg Metoprolol Succinate (Toprol Xl -) 50 mg PO BID [facility] Last Admin: 06/26/18 09:50 Dose: 50 mg Pregabalin (Lyrica -) 100 mg PO TID [facility] Last Admin: 06/26/18 13:30 Dose: 100 mg Roflumilast (Daliresp -) 500 mcg PO DAILY [facility] Last Admin: 06/26/18 09:53 Dose: 500 mcg Tamsulosin HCl (Flomax -) 0.4 mg PO DAILY@0830 [facility] Last Admin: 06/26/18 08:43 Dose: 0.4 mg - Objective Vital Signs: Vital Signs Temperature 97.9 F 06/26/18 10:00 Pulse Rate 80 06/26/18 10:00 Respiratory Rate 20 06/26/18 10:00 Blood Pressure 135/88 06/26/18 10:00 O2 Sat by Pulse Oximetry (%) 91 L 06/26/18 09:00 Constitutional: Yes: No Distress Eyes: Yes: Conjunctiva Clear Cardiovascular: Yes: Regular Rate and Rhythm, S1, S2 Respiratory: Yes: Rhonchi, Wheezes, Other Gastrointestinal: Yes: Normal Bowel Sounds, Soft. No: Tenderness Labs: CBC, BMP 06/26/18 06:00 06/26/18 06:00 INR, PTT INR 1.14 (0.83-1.09) H 06/25/18 11:50 Assessment/Plan R/O PNEUMONIA V. URI AWAIT SPUTUM C/S CONTINUW CEFTRIAXONE
[2018-06-26] MEDS: ACETAMINOPHEN 325 MG TABLET (FP) PO PRN (14:40)
--- NOTE | 2018-06-26 17:01 | PN ---
Progress Note (short form) - Note Progress Note: s: no chest pain, palps, dizziness. Current Medications Acetaminophen (Tylenol -) 650 mg PO Q4H PRN PRN Reason: FEVER Last Admin: 06/26/18 14:40 Dose: 650 mg Albuterol Sulfate (Ventolin 0.083% Nebulizer Soln -) 1 amp NEB Q6H PRN PRN Reason: SHORTNESS OF BREATH/WHEEZING Albuterol/Ipratropium (Duoneb -) 1 amp NEB RQ4H [facility] Last Admin: 06/26/18 15:30 Dose: 1 amp Apixaban (Eliquis -) 2.5 mg PO BID [facility] Last Admin: 06/26/18 09:50 Dose: 2.5 mg Atorvastatin Calcium (Lipitor -) 10 mg PO HS [facility] Last Admin: 06/25/18 22:21 Dose: 10 mg Duloxetine HCl (Cymbalta -) 60 mg PO DAILY [facility] Last Admin: 06/26/18 09:51 Dose: 60 mg Ceftriaxone Sodium 2 gm/ (Dextrose) 100 mls @ 200 mls/hr IVPB DAILY [facility]; Protocol Last Admin: 06/26/18 09:51 Dose: 200 mls/hr Levetiracetam (Keppra -) 750 mg PO BID [facility] Last Admin: 06/26/18 09:50 Dose: 750 mg Methylprednisolone Sodium Succinate (Solu-Medrol -) 60 mg IVPB Q8H-IV [facility] Last Admin: 06/26/18 09:51 Dose: 60 mg Metoprolol Succinate (Toprol Xl -) 50 mg PO BID [facility] Last Admin: 06/26/18 09:50 Dose: 50 mg Pregabalin (Lyrica -) 100 mg PO TID [facility] Last Admin: 06/26/18 13:30 Dose: 100 mg Roflumilast (Daliresp -) 500 mcg PO DAILY [facility] Last Admin: 06/26/18 09:53 Dose: 500 mcg Tamsulosin HCl (Flomax -) 0.4 mg PO DAILY@0830 [facility] Last Admin: 06/26/18 08:43 Dose: 0.4 mg pe: Vital Signs Period Temp Pulse Resp BP Sys/Varghese Pulse Ox Last 24 Hr 97.4 F-98.1 F 60-80 20-22 130-148/86-97 91-94 nad no jvd rrr s1s2 no mrg bl exp wheeze, nl eff aaox3 no le e/c/c abd nt nd pos bs no jaundice diaphoresis pos dp pt no carotid bruits ecg: sr, as-vp research cxr: clear lungs echo 06/2018 tds, unable to assess LV function, mod pericardial effusion, pacer wire in RV a/p: 77 m hx multiple aneurysms including a 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 He had no indications of tamponade then (04/2018) and none now. - repeat echo mod pericardial effusion
[2018-06-26] MEDS: ATORVASTATIN CA 10 MG TABLET (FP) PO SCH (22:22)
[2018-06-27] MEDS: ALBUTEROL SO4 2.5/IPRATROPIUM 0.5 INH SOL 3 ML VIAL.NEB. NEB SCH ×6 (00:46→20:00)
[2018-06-27] MEDS: methylPREDNISolone NA SUCC 40 MG/1 ML VIAL IVPB SCH ×3 (02:11→18:23)
[2018-06-27] MEDS: PREGABALIN 100 MG CAPSULE PO SCH ×3 (06:10→22:15)
[2018-06-27 08:01] LABS: HEMATOCRIT 44.2 % (35.4-49); HEMOGLOBIN 14.6 GM/dL (11.7-16.9); MCH 28.4 pg (25.7-33.7); MEAN CELL VOLUME 86.2 fl (80-96); MEAN PLT VOLUME 9.7 fl (7.5-11.1); PLATELET COUNT 171 K/MM3 (134-434); RBC 5.12 M/mm3 (4.00-5.60); RDW 17.7 % (11.9-15.9); WHITE BLOOD COUNT 7.9 K/mm3 (4.0-10.0)
[2018-06-27 08:25] LABS: ALBUMIN 2.9 g/dl (3.4-5.0); ALK PHOS 43 U/L (45-117); ANION GAP 9 MMOL/L (8-16); BILIRUBIN,TOTAL 0.4 mg/dL (0.2-1); BLOOD UREA NITROGEN 30 mg/dL (7-18); CALCIUM 8.7 mg/dL (8.5-10.1); CHLORIDE 101 mmol/L (98-107); CO2 30 mmol/L (21-32); GLUCOSE,RANDOM 104 mg/dL (74-106); POTASSIUM 4.3 mmol/L (3.5-5.1); SGOT/AST 9 U/L (15-37); SGPT/ALT 17 U/L (13-61); SODIUM 140 mmol/L (136-145); TOT PROT 5.8 g/dl (6.4-8.2)
[2018-06-27] MEDS ORDERED: DEXTROSE 5%-WATER 100 ML IVPB ONE (09:41)
[2018-06-27] MEDS: DULoxetine HCL 30 MG CAPSULE.DR (FP) PO SCH (09:57)
[2018-06-27] MEDS: levETIRAcetam 500 MG TABLET (FP) PO SCH ×2 (09:57→22:15)
[2018-06-27] MEDS: TAMSULOSIN HCL 0.4 MG CAP PO SCH (09:58)
[2018-06-27] MEDS: APIXABAN 2.5 MG TABLET PO SCH ×2 (09:58→22:15)
[2018-06-27] MEDS: ROFLUMILAST 500 MCG TABLET PO SCH (09:58)
[2018-06-27] MEDS: CEFTRIAXONE 2 GM in DEXTROSE 5%-WATER 100 ML IVPB SCH (09:59)
--- NOTE | 2018-06-27 12:31 | PN ---
Progress Note, Physician Chief Complaint: patient seen and examined awake alert on nasal canula - Current Medication List Current Medications: Active Medications Acetaminophen (Tylenol -) 650 mg PO Q4H PRN PRN Reason: FEVER Last Admin: 06/26/18 14:40 Dose: 650 mg Albuterol Sulfate (Ventolin 0.083% Nebulizer Soln -) 1 amp NEB Q6H PRN PRN Reason: SHORTNESS OF BREATH/WHEEZING Albuterol/Ipratropium (Duoneb -) 1 amp NEB RQ4H [facility] Last Admin: 06/27/18 11:35 Dose: 1 amp Apixaban (Eliquis -) 2.5 mg PO BID [facility] Last Admin: 06/27/18 09:58 Dose: 2.5 mg Atorvastatin Calcium (Lipitor -) 10 mg PO HS [facility] Last Admin: 06/26/18 22:22 Dose: 10 mg Duloxetine HCl (Cymbalta -) 60 mg PO DAILY [facility] Last Admin: 06/27/18 09:57 Dose: 60 mg Ceftriaxone Sodium 2 gm/ (Dextrose) 100 mls @ 200 mls/hr IVPB DAILY [facility]; Protocol Last Admin: 06/27/18 09:59 Dose: 200 mls/hr Levetiracetam (Keppra -) 750 mg PO BID [facility] Last Admin: 06/27/18 09:57 Dose: 750 mg Methylprednisolone Sodium Succinate (Solu-Medrol -) 60 mg IVPB Q8H-IV [facility] Last Admin: 06/27/18 11:29 Dose: 60 mg Metoprolol Succinate (Toprol Xl -) 50 mg PO BID [facility] Last Admin: 06/27/18 09:58 Dose: 50 mg Pregabalin (Lyrica -) 100 mg PO TID [facility] Last Admin: 06/27/18 06:10 Dose: 100 mg Roflumilast (Daliresp -) 500 mcg PO DAILY [facility] Last Admin: 06/27/18 09:58 Dose: 500 mcg Tamsulosin HCl (Flomax -) 0.4 mg PO DAILY@0830 [facility] Last Admin: 06/27/18 09:58 Dose: 0.4 mg - Objective Vital Signs: Vital Signs Temperature 97.7 F 06/27/18 10:00 Pulse Rate 63 06/27/18 10:00 Respiratory Rate 20 06/27/18 10:00 Blood Pressure 143/94 06/27/18 10:00 O2 Sat by Pulse Oximetry (%) 93 L 06/27/18 09:00 Constitutional: Yes: Calm Cardiovascular: Yes: Regular Rate and Rhythm, S1, S2 Respiratory: Yes: CTA Bilaterally Gastrointestinal: Yes: Normal Bowel Sounds, Soft Edema: No Neurological: Yes: Alert, Oriented Labs: CBC, BMP 06/27/18 06:30 06/27/18 06:30 INR, PTT INR 1.14 (0.83-1.09) H 06/25/18 11:50 Problem List - Problems (1) COPD exacerbation Assessment/Plan: nasal oxygen iv abx r/p pna on iv rocephin nebulizers solumedrol 60mg q8hr icu monitoring dvt ppx pulm on board Code(s): J44.1 - CHRONIC OBSTRUCTIVE PULMONARY DISEASE W (ACUTE) EXACERBATION (2) Atrial fib/flutter, transient Assessment/Plan: metoprolol eliquis Code(s): [id number] - (3) Seizure Assessment/Plan: kepra Code(s): R56.9 - UNSPECIFIED CONVULSIONS
--- NOTE | 2018-06-27 13:02 | PN ---
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 RD educated pt and and provided handouts, and info re purchase of thickener for home use.
--- NOTE | 2018-06-27 13:56 | PN ---
Progress Note, Physician Chief Complaint: SEATED IN BED + COUGH NOTED NO C/O CHEST PAIN/DYSPNEA AFEBRILE WBC WNL - Current Medication List Current Medications: Active Medications Acetaminophen (Tylenol -) 650 mg PO Q4H PRN PRN Reason: FEVER Last Admin: 06/26/18 14:40 Dose: 650 mg Albuterol Sulfate (Ventolin 0.083% Nebulizer Soln -) 1 amp NEB Q6H PRN PRN Reason: SHORTNESS OF BREATH/WHEEZING Albuterol/Ipratropium (Duoneb -) 1 amp NEB RQ4H [facility] Last Admin: 06/27/18 11:35 Dose: 1 amp Apixaban (Eliquis -) 2.5 mg PO BID [facility] Last Admin: 06/27/18 09:58 Dose: 2.5 mg Atorvastatin Calcium (Lipitor -) 10 mg PO HS [facility] Last Admin: 06/26/18 22:22 Dose: 10 mg Duloxetine HCl (Cymbalta -) 60 mg PO DAILY [facility] Last Admin: 06/27/18 09:57 Dose: 60 mg Ceftriaxone Sodium 2 gm/ (Dextrose) 100 mls @ 200 mls/hr IVPB DAILY [facility]; Protocol Last Admin: 06/27/18 09:59 Dose: 200 mls/hr Levetiracetam (Keppra -) 750 mg PO BID [facility] Last Admin: 06/27/18 09:57 Dose: 750 mg Methylprednisolone Sodium Succinate (Solu-Medrol -) 60 mg IVPB Q8H-IV [facility] Last Admin: 06/27/18 11:29 Dose: 60 mg Metoprolol Succinate (Toprol Xl -) 50 mg PO BID [facility] Last Admin: 06/27/18 09:58 Dose: 50 mg Pregabalin (Lyrica -) 100 mg PO TID [facility] Last Admin: 06/27/18 13:41 Dose: 100 mg Roflumilast (Daliresp -) 500 mcg PO DAILY [facility] Last Admin: 06/27/18 09:58 Dose: 500 mcg Tamsulosin HCl (Flomax -) 0.4 mg PO DAILY@0830 [facility] Last Admin: 06/27/18 09:58 Dose: 0.4 mg - Objective Vital Signs: Vital Signs Temperature 97.7 F 06/27/18 10:00 Pulse Rate 63 06/27/18 10:00 Respiratory Rate 20 06/27/18 10:00 Blood Pressure 143/94 06/27/18 10:00 O2 Sat by Pulse Oximetry (%) 93 L 06/27/18 09:00 Constitutional: Yes: No Distress Eyes: Yes: Conjunctiva Clear Cardiovascular: Yes: Regular Rate and Rhythm, S1, S2 Respiratory: Yes: Rhonchi, Wheezes Gastrointestinal: Yes: Normal Bowel Sounds, Soft. No: Tenderness Edema: No Labs: CBC, BMP 06/27/18 06:30 06/27/18 06:30 INR, PTT INR 1.14 (0.83-1.09) H 06/25/18 11:50 Assessment/Plan R/O PNEUMONIA V. URI AWAIT SPUTUM C/S CONTINUE CEFTRIAXONE
--- NOTE | 2018-06-27 15:21 | PN ---
Progress Note, Physician History of Present Illness: pulmonary alert,less dyspneic,-cp - Current Medication List Current Medications: Active Medications Acetaminophen (Tylenol -) 650 mg PO Q4H PRN PRN Reason: FEVER Last Admin: 06/26/18 14:40 Dose: 650 mg Albuterol Sulfate (Ventolin 0.083% Nebulizer Soln -) 1 amp NEB Q6H PRN PRN Reason: SHORTNESS OF BREATH/WHEEZING Albuterol/Ipratropium (Duoneb -) 1 amp NEB RQ4H [facility] Last Admin: 06/27/18 11:35 Dose: 1 amp Apixaban (Eliquis -) 2.5 mg PO BID [facility] Last Admin: 06/27/18 09:58 Dose: 2.5 mg Atorvastatin Calcium (Lipitor -) 10 mg PO HS [facility] Last Admin: 06/26/18 22:22 Dose: 10 mg Duloxetine HCl (Cymbalta -) 60 mg PO DAILY [facility] Last Admin: 06/27/18 09:57 Dose: 60 mg Ceftriaxone Sodium 2 gm/ (Dextrose) 100 mls @ 200 mls/hr IVPB DAILY [facility]; Protocol Last Admin: 06/27/18 09:59 Dose: 200 mls/hr Levetiracetam (Keppra -) 750 mg PO BID [facility] Last Admin: 06/27/18 09:57 Dose: 750 mg Methylprednisolone Sodium Succinate (Solu-Medrol -) 60 mg IVPB Q8H-IV [facility] Last Admin: 06/27/18 11:29 Dose: 60 mg Metoprolol Succinate (Toprol Xl -) 50 mg PO BID [facility] Last Admin: 06/27/18 09:58 Dose: 50 mg Pregabalin (Lyrica -) 100 mg PO TID [facility] Last Admin: 06/27/18 13:41 Dose: 100 mg Roflumilast (Daliresp -) 500 mcg PO DAILY [facility] Last Admin: 06/27/18 09:58 Dose: 500 mcg Tamsulosin HCl (Flomax -) 0.4 mg PO DAILY@0830 [facility] Last Admin: 06/27/18 09:58 Dose: 0.4 mg - Objective Vital Signs: Vital Signs Temperature 98.1 F 06/27/18 15:08 Pulse Rate 81 06/27/18 15:08 Respiratory Rate 20 06/27/18 15:08 Blood Pressure 150/98 06/27/18 15:08 O2 Sat by Pulse Oximetry (%) 93 L 06/27/18 09:00 Constitutional: Yes: Well Nourished, Calm Eyes: Yes: WNL HENT: Yes: WNL Neck: Yes: WNL Cardiovascular: Yes: Pulse Irregular, S1, S2 Respiratory: Yes: Wheezes (few scattered wheezes) Gastrointestinal: Yes: Normal Bowel Sounds, Soft Extremities: Yes: WNL Edema: No Labs: CBC, BMP 06/27/18 06:30 06/27/18 06:30 INR, PTT INR 1.14 (0.83-1.09) H 06/25/18 11:50 Problem List - Problems (1) COPD exacerbation Code(s): J44.1 - CHRONIC OBSTRUCTIVE PULMONARY DISEASE W (ACUTE) EXACERBATION (2) Aortic aneurysm Code(s): I71.9 - AORTIC ANEURYSM OF UNSPECIFIED SITE, WITHOUT RUPTURE (3) Atrial fib/flutter, transient Code(s): [id number] - (4) CAD (coronary artery disease) Code(s): I25.10 - ATHSCL HEART DISEASE OF [place] CORONARY ARTERY W/O ANG PCTRS Qualifiers: Coronary Disease-Associated Artery/Lesion type: [place] artery Associated angina: with stable angina (5) CHF (congestive heart failure) Code(s): I50.9 - HEART FAILURE, UNSPECIFIED (6) CKD (chronic kidney disease) Code(s): N18.9 - CHRONIC KIDNEY DISEASE, UNSPECIFIED Qualifiers: Chronic kidney disease stage: stage 3 (moderate) Qualified Code(s): N18.3 - Chronic kidney disease, stage 3 (moderate) (7) COPD exacerbation Code(s): J44.1 - CHRONIC OBSTRUCTIVE PULMONARY DISEASE W (ACUTE) EXACERBATION (8) CVA (cerebral vascular accident) Code(s): I63.9 - CEREBRAL INFARCTION, UNSPECIFIED (9) Chronic a-fib Code(s): I48.2 - CHRONIC ATRIAL FIBRILLATION (10) Chronic respiratory failure with hypoxia Code(s): J96.11 - CHRONIC RESPIRATORY FAILURE WITH HYPOXIA (11) SOB (shortness of breath) Code(s): R06.02 - SHORTNESS OF BREATH (12) Thoracic aortic aneurysm Code(s): I71.2 - THORACIC AORTIC ANEURYSM, WITHOUT RUPTURE (13) Abdominal aortic aneurysm Code(s): I71.4 - ABDOMINAL AORTIC ANEURYSM, WITHOUT RUPTURE Qualifiers: Presence of rupture: without rupture Qualified Code(s): I71.4 - Abdominal aortic aneurysm, without rupture (14) Adequate anticoagulation on anticoagulant therapy Code(s): Z79.01 - SKILLED NURSING (CURRENT) USE OF ANTICOAGULANTS (15) History of permanent cardiac pacemaker placement Code(s): Z95.0 - PRESENCE OF CARDIAC PACEMAKER (16) Hx of CABG Code(s): Z95.1 - PRESENCE OF AORTOCORONARY BYPASS GRAFT (17) Acute on chronic respiratory failure with hypoxemia Code(s): J96.21 - ACUTE AND CHRONIC RESPIRATORY FAILURE WITH HYPOXIA Assessment/Plan ASSESSMENT AND PLAN: Acute on Chronic Hypoxic Respiratory Failure improving Acute COPD Exacerbation improving CAD LV Systolic Dysfunction Paroxysmal Atrial Fibrillation Thoracic Aneurysm - IV medrol taper - inhaled bronchodilators - empiric antibiotics - NC O2 to maintain saturation 88% to 92% - rate controlled - anticoagulation - PO as tolerated DR JEFFERSON
[2018-06-27] MEDS: ATORVASTATIN CA 10 MG TABLET (FP) PO SCH (22:15)
[2018-06-28] MEDS: ALBUTEROL SO4 2.5/IPRATROPIUM 0.5 INH SOL 3 ML VIAL.NEB. NEB SCH ×6 (00:59→20:47)
[2018-06-28] MEDS: methylPREDNISolone NA SUCC 40 MG/1 ML VIAL IVPB SCH ×3 (02:46→17:09)
[2018-06-28] MEDS: PREGABALIN 100 MG CAPSULE PO SCH ×3 (05:29→23:07)
[2018-06-28] MEDS ORDERED: DEXTROSE 5%-WATER 100 ML IVPB ONE (08:59)
[2018-06-28] MEDS: DULoxetine HCL 30 MG CAPSULE.DR (FP) PO SCH (09:15)
[2018-06-28] MEDS: levETIRAcetam 500 MG TABLET (FP) PO SCH ×2 (09:16→23:07)
[2018-06-28] MEDS: APIXABAN 2.5 MG TABLET PO SCH ×2 (09:16→23:07)
[2018-06-28] MEDS: TAMSULOSIN HCL 0.4 MG CAP PO SCH (09:16)
[2018-06-28] MEDS: ROFLUMILAST 500 MCG TABLET PO SCH (09:17)
[2018-06-28] MEDS: CEFTRIAXONE 2 GM in DEXTROSE 5%-WATER 100 ML IVPB SCH (09:19)
--- NOTE | 2018-06-28 10:51 | PN ---
Progress Note (short form) - Note Progress Note: s: no chest pain, palps, dizziness. sob better. Current Medications Generic Name Dose Route Start Last Admin Trade Name Freq PRN Reason Stop Dose Admin Acetaminophen 650 mg 06/25/18 19:38 06/26/18 14:40 Tylenol - PO 650 mg Q4H PRN Administration FEVER Albuterol Sulfate 1 amp 06/25/18 19:38 Ventolin 0.083% Nebulizer Soln - NEB Q6H PRN SHORTNESS OF BREATH/WHEEZING Albuterol/Ipratropium 1 amp 06/25/18 20:00 06/28/18 08:55 Duoneb - NEB 1 amp RQ4H DIANNE Administration Apixaban 2.5 mg 06/25/18 22:00 06/28/18 09:16 Eliquis - PO 2.5 mg BID [facility] Administration Atorvastatin Calcium 10 mg 06/25/18 22:00 06/27/18 22:15 Lipitor - PO 10 mg HS [facility] Administration Duloxetine HCl 60 mg 06/26/18 10:00 06/28/18 09:15 Cymbalta - PO 60 mg DAILY [facility] Administration Ceftriaxone Sodium 2 gm/ 100 mls @ 200 mls/hr 06/26/18 10:00 06/28/18 09:19 Dextrose IVPB 200 mls/hr DAILY [facility] Administration Protocol Levetiracetam 750 mg 06/25/18 22:00 06/28/18 09:16 Keppra - PO 750 mg BID [facility] Administration Methylprednisolone Sodium Succinate 40 mg 06/27/18 15:21 06/28/18 09:32 Solu-Medrol - IVPB 40 mg Q8H-IV [facility] Administration Metoprolol Succinate 50 mg 06/25/18 22:00 06/28/18 09:15 Toprol Xl - PO 50 mg BID [facility] Administration Pregabalin 100 mg 06/25/18 22:00 06/28/18 05:29 Lyrica - PO 100 mg TID [facility] Administration Roflumilast 500 mcg 06/26/18 10:00 06/28/18 09:17 Daliresp - PO 500 mcg DAILY [facility] Administration Tamsulosin HCl 0.4 mg 06/26/18 08:30 06/28/18 09:16 Flomax - PO 0.4 mg DAILY@0830 [facility] Administration Vital Signs Period Temp Pulse Resp BP Sys/Varghese Pulse Ox Last 24 Hr 97.7 F-98.1 F 70-81 20-20 130-162/70-98 93 nad no jvd rrr s1s2 no mrg cta bl nl eff aaox3 no le e/c/c abd nt nd pos bs no jaundice diaphoresis CBC, BMP 06/27/18 06:30 06/27/18 06:30 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 sob, copd: -no signs acs or chf, seems like acute copd, continue tx per pulm, sxs improving Alt mental status - code jacobo called - per patient's pt at baseline now, has hx confusion and speech impediment per - echo nondiagnostic - at baseline now cad s/p pci: -stable -cont statin, bb, ac chronic sys chf: -s/p health assistant pacer -stable vol status off diuretics, monitor vol status with iv steroids -prior echos here are nondiagnostic, cannot assess LV on repeat study done this admit either -cont bb NSVT - noted on tele here, 7 beats - hx ICM - refused ICD in the past - replete lytes for K >4.0, Mg >2.0 pafib: -stable, cont bb and eliquis peric eff: -prior outpt echo reported moderate to large pericardial effusion, localized. He had no indications of tamponade then (04/2018) and none now. - repeat echo mod pericardial effusion
--- NOTE | 2018-06-28 14:35 | PN ---
Progress Note, Physician - Current Medication List Current Medications: Active Medications Acetaminophen (Tylenol -) 650 mg PO Q4H PRN PRN Reason: FEVER Last Admin: 06/26/18 14:40 Dose: 650 mg Albuterol Sulfate (Ventolin 0.083% Nebulizer Soln -) 1 amp NEB Q6H PRN PRN Reason: SHORTNESS OF BREATH/WHEEZING Albuterol/Ipratropium (Duoneb -) 1 amp NEB RQ4H [facility] Last Admin: 06/28/18 12:30 Dose: 1 amp Apixaban (Eliquis -) 2.5 mg PO BID [facility] Last Admin: 06/28/18 09:16 Dose: 2.5 mg Atorvastatin Calcium (Lipitor -) 10 mg PO HS [facility] Last Admin: 06/27/18 22:15 Dose: 10 mg Duloxetine HCl (Cymbalta -) 60 mg PO DAILY [facility] Last Admin: 06/28/18 09:15 Dose: 60 mg Ceftriaxone Sodium 2 gm/ (Dextrose) 100 mls @ 200 mls/hr IVPB DAILY [facility]; Protocol Last Admin: 06/28/18 09:19 Dose: 200 mls/hr Levetiracetam (Keppra -) 750 mg PO BID [facility] Last Admin: 06/28/18 09:16 Dose: 750 mg Methylprednisolone Sodium Succinate (Solu-Medrol -) 40 mg IVPB Q8H-IV [facility] Last Admin: 06/28/18 09:32 Dose: 40 mg Metoprolol Succinate (Toprol Xl -) 50 mg PO BID [facility] Last Admin: 06/28/18 09:15 Dose: 50 mg Pregabalin (Lyrica -) 100 mg PO TID [facility] Last Admin: 06/28/18 14:05 Dose: 100 mg Roflumilast (Daliresp -) 500 mcg PO DAILY [facility] Last Admin: 06/28/18 09:17 Dose: 500 mcg Tamsulosin HCl (Flomax -) 0.4 mg PO DAILY@0830 [facility] Last Admin: 06/28/18 09:16 Dose: 0.4 mg - Objective Vital Signs: Vital Signs Temperature 97.7 F 06/28/18 10:00 Pulse Rate 80 06/28/18 10:00 Respiratory Rate 20 06/28/18 10:00 Blood Pressure 126/82 06/28/18 10:00 O2 Sat by Pulse Oximetry (%) 92 L 06/28/18 09:00 Cardiovascular: Yes: S1, S2 Respiratory: Yes: Regular, CTA Bilaterally Gastrointestinal: Yes: Normal Bowel Sounds, Soft Labs: CBC, BMP 06/27/18 06:30 06/27/18 06:30 INR, PTT INR 1.14 (0.83-1.09) H 06/25/18 11:50 Problem List - Problems (1) COPD exacerbation Assessment/Plan: nasal oxygen iv abx r/p pna on iv rocephin nebulizers solumedrol 60mg q8hr icu monitoring dvt ppx pulm on board Code(s): J44.1 - CHRONIC OBSTRUCTIVE PULMONARY DISEASE W (ACUTE) EXACERBATION (2) Atrial fib/flutter, transient Assessment/Plan: =: metoprolol eliquis Code(s): [id number] - (3) Seizure Assessment/Plan: [facility] Code(s): R56.9 - UNSPECIFIED CONVULSIONS
--- NOTE | 2018-06-28 14:51 | PN ---
Progress Note, Physician History of Present Illness: PULMONARY ALERT,COMFORTABLE,-RESP DISTRESS - Current Medication List Current Medications: Active Medications Acetaminophen (Tylenol -) 650 mg PO Q4H PRN PRN Reason: FEVER Last Admin: 06/26/18 14:40 Dose: 650 mg Albuterol Sulfate (Ventolin 0.083% Nebulizer Soln -) 1 amp NEB Q6H PRN PRN Reason: SHORTNESS OF BREATH/WHEEZING Albuterol/Ipratropium (Duoneb -) 1 amp NEB RQ4H [facility] Last Admin: 06/28/18 12:30 Dose: 1 amp Apixaban (Eliquis -) 2.5 mg PO BID [facility] Last Admin: 06/28/18 09:16 Dose: 2.5 mg Atorvastatin Calcium (Lipitor -) 10 mg PO HS [facility] Last Admin: 06/27/18 22:15 Dose: 10 mg Duloxetine HCl (Cymbalta -) 60 mg PO DAILY [facility] Last Admin: 06/28/18 09:15 Dose: 60 mg Ceftriaxone Sodium 2 gm/ (Dextrose) 100 mls @ 200 mls/hr IVPB DAILY [facility]; Protocol Last Admin: 06/28/18 09:19 Dose: 200 mls/hr Levetiracetam (Keppra -) 750 mg PO BID [facility] Last Admin: 06/28/18 09:16 Dose: 750 mg Methylprednisolone Sodium Succinate (Solu-Medrol -) 40 mg IVPB Q8H-IV [facility] Last Admin: 06/28/18 09:32 Dose: 40 mg Metoprolol Succinate (Toprol Xl -) 50 mg PO BID [facility] Last Admin: 06/28/18 09:15 Dose: 50 mg Pregabalin (Lyrica -) 100 mg PO TID [facility] Last Admin: 06/28/18 14:05 Dose: 100 mg Roflumilast (Daliresp -) 500 mcg PO DAILY [facility] Last Admin: 06/28/18 09:17 Dose: 500 mcg Tamsulosin HCl (Flomax -) 0.4 mg PO DAILY@0830 [facility] Last Admin: 06/28/18 09:16 Dose: 0.4 mg - Objective Vital Signs: Vital Signs Temperature 97.7 F 06/28/18 10:00 Pulse Rate 80 06/28/18 10:00 Respiratory Rate 20 06/28/18 10:00 Blood Pressure 126/82 06/28/18 10:00 O2 Sat by Pulse Oximetry (%) 92 L 06/28/18 09:00 Constitutional: Yes: Well Nourished, Calm Eyes: Yes: WNL HENT: Yes: WNL Neck: Yes: WNL Cardiovascular: Yes: Pulse Irregular, S1, S2 Respiratory: Yes: Rales (FEW BIBASILAR CRACKLES) Gastrointestinal: Yes: Normal Bowel Sounds, Soft Extremities: Yes: WNL Edema: No Labs: CBC, BMP Problem List - Problems (1) COPD exacerbation Code(s): J44.1 - CHRONIC OBSTRUCTIVE PULMONARY DISEASE W (ACUTE) EXACERBATION (2) Aortic aneurysm Code(s): I71.9 - AORTIC ANEURYSM OF UNSPECIFIED SITE, WITHOUT RUPTURE (3) Atrial fib/flutter, transient Code(s): [id number] - (4) CAD (coronary artery disease) Code(s): I25.10 - ATHSCL HEART DISEASE OF [place] CORONARY ARTERY W/O ANG PCTRS Qualifiers: Coronary Disease-Associated Artery/Lesion type: [place] artery Associated angina: with stable angina (5) CHF (congestive heart failure) Code(s): I50.9 - HEART FAILURE, UNSPECIFIED (6) CKD (chronic kidney disease) Code(s): N18.9 - CHRONIC KIDNEY DISEASE, UNSPECIFIED Qualifiers: Chronic kidney disease stage: stage 3 (moderate) Qualified Code(s): N18.3 - Chronic kidney disease, stage 3 (moderate) (7) COPD exacerbation Code(s): J44.1 - CHRONIC OBSTRUCTIVE PULMONARY DISEASE W (ACUTE) EXACERBATION (8) CVA (cerebral vascular accident) Code(s): I63.9 - CEREBRAL INFARCTION, UNSPECIFIED (9) Chronic a-fib Code(s): I48.2 - CHRONIC ATRIAL FIBRILLATION (10) Chronic respiratory failure with hypoxia Code(s): J96.11 - CHRONIC RESPIRATORY FAILURE WITH HYPOXIA (11) SOB (shortness of breath) Code(s): R06.02 - SHORTNESS OF BREATH (12) Thoracic aortic aneurysm Code(s): I71.2 - THORACIC AORTIC ANEURYSM, WITHOUT RUPTURE (13) Abdominal aortic aneurysm Code(s): I71.4 - ABDOMINAL AORTIC ANEURYSM, WITHOUT RUPTURE Qualifiers: Presence of rupture: without rupture Qualified Code(s): I71.4 - Abdominal aortic aneurysm, without rupture (14) Adequate anticoagulation on anticoagulant therapy Code(s): Z79.01 - INTERMEDIATE (CURRENT) USE OF ANTICOAGULANTS (15) History of permanent cardiac pacemaker placement Code(s): Z95.0 - PRESENCE OF CARDIAC PACEMAKER (16) Hx of CABG Code(s): Z95.1 - PRESENCE OF AORTOCORONARY BYPASS GRAFT (17) Acute on chronic respiratory failure with hypoxemia Code(s): J96.21 - ACUTE AND CHRONIC RESPIRATORY FAILURE WITH HYPOXIA Assessment/Plan ASSESSMENT AND PLAN: Acute on Chronic Hypoxic Respiratory Failure improving Acute COPD Exacerbation improving CAD LV Systolic Dysfunction Paroxysmal Atrial Fibrillation Thoracic Aneurysm - Prednisone in am - inhaled bronchodilators - empiric antibiotics - NC O2 to maintain saturation 88% to 92% - rate controlled - anticoagulation - PO as tolerated - ok to d/c home in am if condition remains stable from pulmonary standpoint DR JEFFERSON
[2018-06-28] MEDS ORDERED: PT OWN MED DRAWER 7, Y5N ONE (21:45)
[2018-06-28] MEDS: ATORVASTATIN CA 10 MG TABLET (FP) PO SCH (23:07)
[2018-06-29] MEDS: methylPREDNISolone NA SUCC 40 MG/1 ML VIAL IVPB SCH ×2 (01:03→10:04)
[2018-06-29] MEDS: PREGABALIN 100 MG CAPSULE PO SCH (06:50)
[2018-06-29] MEDS: ALBUTEROL SO4 2.5/IPRATROPIUM 0.5 INH SOL 3 ML VIAL.NEB. NEB SCH ×3 (07:40→12:00)
[2018-06-29] MEDS ORDERED: DEXTROSE 5%-WATER 100 ML IVPB ONE (08:48)
[2018-06-29] MEDS: TAMSULOSIN HCL 0.4 MG CAP PO SCH (09:57)
[2018-06-29] MEDS: levETIRAcetam 500 MG TABLET (FP) PO SCH (09:58)
[2018-06-29] MEDS: DULoxetine HCL 30 MG CAPSULE.DR (FP) PO SCH (10:00)
[2018-06-29] MEDS ORDERED: predniSONE 20 MG TABLET (UD) PO SCH (10:00)
[2018-06-29] MEDS: APIXABAN 2.5 MG TABLET PO SCH (10:01)
[2018-06-29] MEDS: ROFLUMILAST 500 MCG TABLET PO SCH (10:02)
[2018-06-29] MEDS: CEFTRIAXONE 2 GM in DEXTROSE 5%-WATER 100 ML IVPB SCH (10:02)
--- NOTE | 2018-06-29 11:22 | PN ---
Progress Note (short form) - Note Progress Note: s: no chest pain, palps, dizziness. sob better. Current Medications Generic Name Dose Route Start Last Admin Trade Name Freq PRN Reason Stop Dose Admin Acetaminophen 650 mg 06/25/18 19:38 06/26/18 14:40 Tylenol - PO 650 mg Q4H PRN Administration FEVER Albuterol Sulfate 1 amp 06/25/18 19:38 Ventolin 0.083% Nebulizer Soln - NEB Q6H PRN SHORTNESS OF BREATH/WHEEZING Albuterol/Ipratropium 1 amp 06/25/18 20:00 06/29/18 07:40 Duoneb - NEB 1 amp RQ4H DIANNE Administration Apixaban 2.5 mg 06/25/18 22:00 06/29/18 10:01 Eliquis - PO 2.5 mg BID DIANNE Administration Atorvastatin Calcium 10 mg 06/25/18 22:00 06/28/18 23:07 Lipitor - PO 10 mg HS DIANNE Administration Duloxetine HCl 60 mg 06/26/18 10:00 06/29/18 10:00 Cymbalta - PO 60 mg DAILY DIANNE Administration Ceftriaxone Sodium 2 gm/ 100 mls @ 200 mls/hr 06/26/18 10:00 06/29/18 10:02 Dextrose IVPB 200 mls/hr DAILY DIANNE Administration Protocol Levetiracetam 750 mg 06/25/18 22:00 06/29/18 09:58 Keppra - PO 750 mg BID DIANNE Administration Methylprednisolone Sodium Succinate 40 mg 06/27/18 15:21 06/29/18 10:04 Solu-Medrol - IVPB Not Given Q8H-IV DIANNE Metoprolol Succinate 50 mg 06/25/18 22:00 06/29/18 10:06 Toprol Xl - PO 50 mg BID DIANNE Administration Prednisone 60 mg 06/29/18 10:00 06/29/18 10:01 Deltasone - PO 60 mg DAILY DIANNE Administration Pregabalin 100 mg 06/25/18 22:00 06/29/18 06:50 Lyrica - PO 100 mg TID DIANNE Administration Roflumilast 500 mcg 06/26/18 10:00 06/29/18 10:02 Daliresp - PO 500 mcg DAILY DIANNE Administration Tamsulosin HCl 0.4 mg 06/26/18 08:30 06/29/18 09:57 Flomax - PO 0.4 mg DAILY@0830 DIANNE Administration Vital Signs Period Temp Pulse Resp BP Sys/Varghese Pulse Ox Last 24 Hr 97.4 F-98.1 F 67-76 20-20 135-159/77-96 92 nad no jvd rrr s1s2 no mrg cta bl nl eff aaox3 no le e/c/c abd nt nd pos bs no jaundice diaphoresis CBC, BMP 06/27/18 06:30 06/27/18 06:30 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 sob, copd: -no signs acs or chf, seems like acute copd, continue tx per pulm, sxs improving Alt mental status - code jacobo called - per patient's pt at baseline now, has hx confusion and speech impediment per - echo nondiagnostic - at baseline now cad s/p pci: -stable -cont statin, bb, ac chronic sys chf: -s/p breast puller pacer -stable vol status off diuretics, monitor vol status with iv steroids -prior echos here are nondiagnostic, cannot assess LV on repeat study done this admit either -cont bb NSVT - noted on tele here, 7 beats - hx ICM - refused ICD in the past - replete lytes for K >4.0, Mg >2.0 pafib: -stable, cont bb and eliquis peric eff: -prior outpt echo reported moderate to large pericardial effusion, localized. He had no indications of tamponade then (04/2018) and none now. - repeat echo mod pericardial effusion
[2018-06-29 12:22] VITALS: BP 148/77; PULSE 65; TEMP 98
--- NOTE | 2018-06-29 12:33 | DS ---
Physical Examination Vital Signs: Vital Signs Temperature 98.0 F 06/29/18 10:00 Pulse Rate 65 06/29/18 10:00 Respiratory Rate 18 06/29/18 10:00 Blood Pressure 148/77 06/29/18 10:00 O2 Sat by Pulse Oximetry (%) 94 L 06/29/18 09:00 Findings/Remarks: FEELING BETTER, HIS SISTER AND WANTS TO GO HOME Constitutional: Yes: No Distress Eyes: Yes: WNL HENT: Yes: WNL Neck: Yes: WNL Cardiovascular: Yes: Pulse Irregular Respiratory: Yes: Diminished Gastrointestinal: Yes: WNL Renal/: Yes: WNL Musculoskeletal: Yes: Muscle Weakness Extremities: Yes: WNL Edema: No Peripheral Pulses WNL: Yes Integumentary: Yes: WNL Wound/Incision: Yes: Clean/Dry Neurological: Yes: Pre-Existing Deficit ...Motor Strength: LLE, RLE Psychiatric: Yes: WNL Labs: CBC, BMP 06/27/18 06:30 06/27/18 06:30 Discharge Summary Reason For Visit: COPD Current Active Problems Acute on chronic respiratory failure with hypoxemia (Acute) Altered mental status (Acute) COPD exacerbation (Acute) Procedures: Principal: CT SCAN Hospital Course: ADMITTED COPD ACUTE ON CHRONIC, PNEUMONIA, TREATED IV ABX Condition: Improved - Instructions Diet, Activity, Other Instructions: SEE YOUR DOCTOR IN 2-3 DAYS Disposition: VNS/HOME HEALTH CARE - Home Medications Comprehensive Discharge Medication List: Ambulatory Orders Duloxetine HCl [Cymbalta -] 60 mg PO DAILY 11/08/17 Isosorbide Dinitrate [Isordil -] 20 mg PO BID 11/08/17 Pantoprazole Sodium [Protonix] 40 mg PO DAILY 11/08/17 Pregabalin [Lyrica] 100 mg PO TID 11/08/17 Tamsulosin HCl [Flomax] 0.4 mg PO HS 11/08/17 Albuterol 0.083% Nebulizer Suki [Ventolin 0.083% Nebulizer Soln -] 1 amp NEB Q6H PRN amp 12/10/17 Apixaban [Eliquis -] 2.5 mg PO BID #60 tablet 12/11/17 Budesonide/Formeterol Fumarate [SYMBICORT 160/4.5mcg -] 2 puff IH BID #1 inhaler 12/11/17 levETIRAcetam [Keppra -] 750 mg PO BID #45 tablet 12/26/17 Atorvastatin Ca [Lipitor] 10 mg PO HS 03/25/18 Prednisone 10 mg PO DAILY #21 tablet 05/22/18 Roflumilast [Daliresp -] 500 mcg PO DAILY #30 tablet 05/22/18 Ferrous Sulfate 325 mg PO DAILY 05/29/18 Metoprolol Succinate [Toprol XL -] 50 mg PO BID #60 tab.sr.24h MDD 2 06/02/18 predniSONE [Deltasone -] See Taper PO DAILY #30 tablet 06/29/18
== END 2018-06-29 14:30 | disposition home health service (06) | DRG 189 ==
LOC: JER 10:28 → JERBED 13:53 → JICU 23:55 → J7W 06-24 21:23
PROVIDERS: ADMIT Family Medicine; ATTEND Family Medicine
DX: J96.21 Acute and chronic respiratory failure with hypoxia (principal); J44.1 Chronic obstructive pulmonary disease with (acute) exacerbation; I69.354 Hemiplegia and hemiparesis following cerebral infarction affecting left non-dominant side; I50.22 Chronic systolic (congestive) heart failure; I31.3 Pericardial effusion (noninflammatory); N17.9 Acute kidney failure, unspecified; I47.1 Supraventricular tachycardia; I13.0 Hypertensive heart and chronic kidney disease with heart failure and stage 1 through stage 4 chronic kidney disease, or unspecified chronic kidney disease; Z99.81 Dependence on supplemental oxygen; I25.10 Atherosclerotic heart disease of native coronary artery without angina pectoris; E11.51 Type 2 diabetes mellitus with diabetic peripheral angiopathy without gangrene; I48.0 Paroxysmal atrial fibrillation; Z95.1 Presence of aortocoronary bypass graft; F32.9 Major depressive disorder, single episode, unspecified; E11.42 Type 2 diabetes mellitus with diabetic polyneuropathy; N40.0 Benign prostatic hyperplasia without lower urinary tract symptoms; Z66 Do not resuscitate; I25.5 Ischemic cardiomyopathy; E78.5 Hyperlipidemia, unspecified; G40.909 Epilepsy, unspecified, not intractable, without status epilepticus; Z95.0 Presence of cardiac pacemaker; I71.2 Thoracic aortic aneurysm, without rupture; I69.320 Aphasia following cerebral infarction; I71.4 Abdominal aortic aneurysm, without rupture; Z79.01 Long term (current) use of anticoagulants; E11.22 Type 2 diabetes mellitus with diabetic chronic kidney disease; N18.3 Chronic kidney disease, stage 3 (moderate)
CPT/HCPCS: 36415; 36600; 70450-TC; 71045-TC-FY; 74230-TC-FY; 80053; 80061; 81003; 82140; 82375; 82550; 82607; 82803; 82962; 83036; 83050; 83605; 83721; 83735; 83880; 84100; 84443; 84484; 85025; 85027; 85610; 85651; 85730; 86140; 87040; 87070; 87205; 87804; 87880; 92611-GN; 93005; 93010; 93306-TC; 93880-TC; 94640; 97116-GP; 97161-GP; 99285-25

== ENCOUNTER 2018-07-13 08:36 | Inpatient (IN) | payer OTHER ==
[2018-07-13] MEDS ORDERED: ALBUTEROL SO4 2.5/IPRATROPIUM 0.5 INH SOL 3 ML VIAL.NEB. NEB ONE ×3 (08:41→09:50)
[2018-07-13] MEDS ORDERED: methylPREDNISolone NA SUCC 40 MG/1 ML VIAL IVPUSH ONE (08:43)
[2018-07-13] MEDS ORDERED: methylPREDNISolone NA SUCC 40 MG/1 ML VIAL ONE (09:02)
[2018-07-13 09:05] LABS: BASO % 0.3 % (0-2.0); EOS % 0.4 % (0-4.5); HEMATOCRIT 46.7 % (35.4-49); HEMOGLOBIN 15.4 GM/dL (11.7-16.9); LYMPH % 5.7 % (8-40); MCH 29.3 pg (25.7-33.7); MCHC 32.9 g/dl (32.0-35.9); MEAN PLT VOLUME 9.6 fl (7.5-11.1); MONO % 4.6 % (3.8-10.2); PLATELET COUNT 136 K/MM3 (134-434); RBC 5.25 M/mm3 (4.00-5.60); RDW 18.3 % (11.9-15.9); WHITE BLOOD COUNT 12.3 K/mm3 (4.0-10.0)
[2018-07-13 09:17] LABS: INR 1.14 (0.83-1.09); PROTHROMBIN TIME (PATIENT) 13.5 SEC (9.7-13.0)
[2018-07-13 09:19] VITALS: BMI 23.1
[2018-07-13 09:20] LABS: ACTIVATED PTT 45.1 SECONDS (25.2-36.5)
[2018-07-13 09:35] LABS: ALBUMIN 3.5 g/dl (3.4-5.0); ALK PHOS 60 U/L (45-117); ANION GAP 6 MMOL/L (8-16); BILIRUBIN,TOTAL 0.9 mg/dL (0.2-1); BLOOD UREA NITROGEN 25 mg/dL (7-18); CHLORIDE 100 mmol/L (98-107); CO2 30 mmol/L (21-32); CREATININE 1.8 mg/dL (0.55-1.3); GLUCOSE,RANDOM 82 mg/dL (74-106); POTASSIUM 4.3 mmol/L (3.5-5.1); SGOT/AST 21 U/L (15-37); SGPT/ALT 22 U/L (13-61); SODIUM 136 mmol/L (136-145)
[2018-07-13 09:36] LABS: N-TERMINAL BNP 5191.7 pg/ml (5-450)
--- NOTE | 2018-07-13 09:47 | PDOC ---
History of Present Illness - General Chief Complaint: Respiratory Distress Stated Complaint: SOB Time Seen by Provider: 07/13/18 08:42 - History of Present Illness Initial Comments: 07/13/18 17:42 The patient is an 78 year old male BIBEMS for shortness of breath. As per EMR patient has h/o ischemic cardiomyopathy, COPD (on home O2), TAA ( stable @ 5.1 cm) , Abdominal aneursym (s/p EVR) c/o acute onset of shortness of breath and lower abdominal pain. @ bedside assists in history states patient was evaluated by his wharf tender, Dr. Fleming earlier this week for worsening dyspnea - started on PO Predisone Patient denies chest pain, no new lower extremity swelling, fevers/chills, recent travels, sick contacts. Past History - Past Medical History Allergies/Adverse Reactions: Allergies Allergy/AdvReac Type Severity Reaction Status Date / Time No Known Allergies Allergy Verified 06/23/18 10:43 Home Medications: Ambulatory Orders Duloxetine HCl [Cymbalta -] 60 mg PO DAILY 11/08/17 Isosorbide Dinitrate [Isordil -] 20 mg PO BID 11/08/17 Pantoprazole Sodium [Protonix] 40 mg PO DAILY 11/08/17 Pregabalin [Lyrica] 100 mg PO TID 11/08/17 Tamsulosin HCl [Flomax] 0.4 mg PO HS 11/08/17 Albuterol 0.083% Nebulizer Suki [Ventolin 0.083% Nebulizer Soln -] 1 amp NEB Q6H PRN amp 12/10/17 Apixaban [Eliquis -] 2.5 mg PO BID #60 tablet 12/11/17 Budesonide/Formeterol Fumarate [SYMBICORT 160/4.5mcg -] 2 puff IH BID #1 inhaler 12/11/17 levETIRAcetam [Keppra -] 750 mg PO BID #45 tablet 12/26/17 Atorvastatin Ca [Lipitor] 10 mg PO HS 03/25/18 Roflumilast [Daliresp -] 500 mcg PO DAILY #30 tablet 05/22/18 Ferrous Sulfate 325 mg PO DAILY 05/29/18 Metoprolol Succinate [Toprol XL -] 50 mg PO BID #60 tab.sr.24h MDD 2 06/02/18 Prednisone 40 mg PO DAILY 07/13/18 Anemia: No Asthma: No Cancer: No Cardiac Disorders: Yes (STENTS 2000/STENT IN 2015) CVA: Yes (01/23/12/DURING TRIPLE AA REPAIR) COPD: Yes CHF: No 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) Diabetes: No GI Disorders: No Disorders: Yes (BPH) HTN: Yes Hypercholesterolemia: Yes Liver Disease: No Seizures: Yes Thyroid Disease: No - Surgical History Abdominal Surgery: Yes (S/P AAA) Appendectomy: No Cardiac Surgery: Yes (BYPASS 2013, PPM/ AAA REPAIR/2011) Cholecystectomy: No Lung Surgery: No Neurologic Surgery: No Orthopedic Surgery: No - Immunization History Immunization Up to Date: Yes - Suicide/Smoking/Psychosocial Hx Smoking History: Former smoker Have you smoked in the past 12 months: No If you are a former smoker, when did you quit?: 2008 Cigars Per Day: 0 Information on smoking cessation initiated: No Hx Alcohol Use: No Drug/Substance Use Hx: No Substance Use Type: None Hx Substance Use Treatment: No Review of Systems - Review of Systems Able to Perform ROS?: No (on BIPAP) *Physical Exam - Vital Signs Last Vital Signs Temp Pulse Resp BP Pulse Ox 97 H 24 H 156/106 H 92 L 07/13/18 08:50 07/13/18 08:50 07/13/18 08:50 07/13/18 09:33 - Physical Exam General Appearance: Yes: Nourished, Obese Neck: positive: Trachea midline, Supple Respiratory/Chest: positive: Other (Accessory muscle use, Scattered wheezing on anterior and posterior lung avilez, Tachypnea on NRB) Cardiovascular: positive: S1, S2. negative: Edema, JVD Vascular Pulses: Dorsalis-Pedis (R): 2+, Doralis-Pedis (L): 2+ Gastrointestinal/Abdominal: positive: Other (Mild B/L LQ TTP w/o noted peritoneal signs) Extremity: positive: Normal Capillary Refill, Normal Inspection Integumentary: positive: Normal Color Neurologic: positive: Fully Oriented, Alert ED Treatment Course - LABORATORY CBC & Chemistry Diagram: 07/13/18 08:51 07/13/18 08:51 - ADDITIONAL ORDERS Additional order review: Laboratory Results 04/21/19 04/21/19 04/21/19 08:51 08:51 08:51 PT with INR 13.50 H INR 1.14 H PTT (Actin FS) 45.1 H Sodium 136 Potassium 4.3 Chloride 100 Carbon Dioxide 30 Anion Gap 6 L BUN 25 H Creatinine 1.8 H Creat Clearance w eGFR 36.49 Random Glucose 82 Calcium 9.0 Total Bilirubin 0.9 AST 21 ALT 22 Alkaline Phosphatase 60 Creatine Kinase 43 Troponin I 0.02 B-Natriuretic Peptide 5191.7 H Total Protein 7.0 Albumin 3.5 07/13/18 08:51 RBC 5.25 MCV 89.0 MCHC 32.9 RDW 18.3 H MPV 9.6 Neutrophils % 89.0 H Lymphocytes % 5.7 L D Monocytes % 4.6 Eosinophils % 0.4 D Basophils % 0.3 - RADIOLOGY Radiology Studies Ordered: Category Date Time Status ABDOMEN CTA W/WO CONTRAST [CT] Stat CT Scan 07/13/18 09:09 Taken CHEST CTA [CT] Stat CT Scan 07/13/18 09:06 Taken - Medications Given in the ED: ED Medications Discontinued Medications Generic Name Dose Route Start Last Admin Trade Name Freq PRN Reason Stop Dose Admin Albuterol/Ipratropium 1 amp 07/13/18 08:43 07/13/18 08:55 Duoneb - NEB 07/13/18 08:44 1 amp ONCE ONE Administration Fentanyl 50 mcg 07/13/18 09:10 07/13/18 09:22 Sublimaze Injection - IVPUSH 07/13/18 09:11 50 mcg ONCE ONE Administration Methylprednisolone Sodium Succinate 60 mg 07/13/18 08:43 07/13/18 09:03 Solu-Medrol - IVPUSH 07/13/18 08:44 60 mg ONCE ONE Administration Medical Decision Making - Medical Decision Making 07/13/18 09:46 78 year old male in respiratory distress. H/o severe COPD with multiple hospitalizations for exacerbation as well as significant cardiac history including AFib, Cardiomyopathy, Thoracic and Abdominal Aneursyms. Hypertensive ( 156/106) and Tachypneic (RR 24) at presentation. DDx includes COPD exacerbation , PNA, CHF, r/o ACS also consider AAA or abdominal aneursym rupture, however less likely given patient's elevated BP, and clinical exam which suggests respiratory etiology. Will initiate BIPAP, Duo Nebs, Steroids. Troponin, BNP, EKG, CBC/CMP, Coags pending. Stat transfer to CT for chest and abdominal CTA Bedside U/S performed - limited 2/2 to patient's anatomy 2/2 to severe COPD; shows lungs with A lines, no visible pleural effusion; proximal and mid aorta wnL diameter; iliac stent in lower abdomen Cardiac CT showed stable pericardial effusion (1.3 cm); Abdominal CT forwarded to Imaging transmission line engineer Attending d/w Dr. Escamilla - patient well known to service, Tele admission, consider ICU based on patient's clinical condition Dr. García @ bedside. As pericardial effusion is stable/not new will order echo for tomorrow a.m. Dr. Cullen @ bedside -agrees w/Doxycyclyine for broad spectrum coverage Patient reassessed @ bedside, continues to breath comfortably on BIPAP. @ bedside counseled on plan of care. *DC/Admit/Observation/Transfer Diagnosis at time of Disposition: Respiratory distress - Discharge Dispostion Condition at time of disposition: Fair Decision to Admit order: Yes - Referrals - Patient Instructions - Post Discharge Activity
[2018-07-13 09:48] LABS: URINE APPEARANCE CLEAR; URINE BILIRUBIN NEGATIVE (NEGATIVE); URINE COLOR YELLOW; URINE GLUCOSE (UA) NEGATIVE (NEGATIVE); URINE KETONE NEGATIVE (NEGATIVE); URINE LEUK ESTERASE NEGATIVE (NEGATIVE); URINE NITRITE NEGATIVE (NEGATIVE); URINE PROTEIN NEGATIVE (NEGATIVE); URINE UROBILINOGEN 0.2 mg/dL (0.2-1.0)
[2018-07-13 10:01] VITALS: TEMP 97.8
[2018-07-13 10:02] LABS: ARTERIAL BLD GAS O2 SATURATION 94.1 % (95-98); ARTERIAL BLOOD GAS BASE EXCESS 1.9 meq/l (-2-2); ARTERIAL BLOOD GAS PCO2 43.1 mmHg (35-45); ARTERIAL BLOOD GAS PO2 76.3 mmHg (80-105)
[2018-07-13 10:03] LABS: ALLENS TEST POSITIVE
--- NOTE | 2018-07-13 10:48 | PDOC ---
Attending Attestation - Resident Resident Name: Suzy Florez - ED Attending Attestation I have performed the following: I have examined & evaluated the patient, The case was reviewed & discussed with the resident, I agree w/resident's findings & plan, Exceptions are as noted - HPI HPI: 07/13/18 10:40 78 yo male h/o ischemic cardiomyopathy, pacer, cva, copd ( on home O2) thoracic anuerysm, and abdominal anuerysm s/p endovascular repair ( surgeon at [facility]), here today c/o acute onset sob, and lower abd pain. pt was seen recently for copd exacerbation, was sent home on prednisone [address] tomas 4 days ago, here today c/o sudden worsening sob awoke him from sleep. he denies chest pain or chest tightness. also c/o lower back pain lower abd pain. no new weakness numbness or tingling. cough is productive of yellowish sputum. no f/c no leg swelling. no new numbness or tingling. also h/o pericardial effusion, seen on echo recently , saw dr early last week. - Physicial Exam PE: 07/13/18 10:48 awake mild distress. accessory muslce use. expiratory wheezing bilaterally heart rrr no mrg abd soft nt nd. ext wwp 2 + dp/ pt bilaterally pulsess. lower abd soft mild ttp. no periph edema. no calf tenderness. awake alert oriented x 3. - Medical Decision Making 07/13/18 10:49 78 yo severe copd, afib, cva cardiomyopathy, aaa, thorac anuerysm, here with sob. and c/o lower abd , flank pain differential copd exacerbation chf, pneumonia, aaa rupture or thoracic anuerysm rupture, endovascular leak fro mprior repair. plan cta labs bipap, nebs and steroids. focused ED us TTE performed, parasternal long and short view were limited due to severe copd. subxiphoid and apical demonstrated a anterior pericardial effusion, mild scalloping of RV, but full dilation of RV and end of systole. no atrial collapse. bilat lungs scanned, using phased array probe. a line predominant all aneterior lung avilez and bilateral bases. incident bilat simple renal cyst noted when looking at lung bases. aorta scanned to mid aorta, proximal and mid aorta <3cm distal aorta poorly visualized. near regiona of bladder. left iliac stent seen with central flow impression: moderate anterior pericardial effusion, scalloping but no rv collapse, no tamponade. a line predominant lungs, no pulmonary edema. iliac stent with flow visualiZd in region of bladder to left. bilat renal cyst simplet. ct pending. ct a thoracic no change from prior studies. no rupture. dominguez Lora bilingual case manager, states [facility] with [facility] group. Dw Covering DR Vallejo for [facility] will see tomorrow. repeat echo ordered. d/w DR Sarabia ( covering for physically impaired teacher dr. tomas). pt doing much improved on bipap after meds and steroids. 07/13/18 12:22 called [address]ology for read ct a/p, sen to [facility]. two calls placed to [facility] to expedite reading of CTA. d/w dr santiago for admission. accepted. pt overall much improved on bipap. Heart Score/ECG Review #1 Compared to previous ECG there are: Other (paced, left axis. TWI I, AVL,)
--- NOTE | 2018-07-13 11:46 | CON.CARD ---
Cardiology Consult (text) - Consultation Consultation Note: Cardiology Consult (text) - Consultation Consultation Note: cc: sob hpi: 78 m hx multiple aneurysms including a 5.1 cm stable thoracic aneurysm, CAD s/p PCI and ischemic Cardiomyopathy requiring ELECTRONIC WARFARE OFFICER-P (refused ICD), PAF on termite helper NOAC therapy,severe COPD on O2, here with sob and lower abdominal pain. No cp palps dizzy loc pnd orthopnea le edema. Recently admitted for COPD exacerbation, dc with prednisone. Sudden short of breath today woke up him from sleep. Also has cough with yellow sputum. Improved with bipap and steroids in ER. patient of Dr. Hines. pmh: per hpi psh: pci social: no tob fam: no premature cad ros: per hpi; +cough, no nvd fever gib dysruia; all others normal meds: Ambulatory Orders Duloxetine HCl [Cymbalta -] 60 mg PO DAILY 11/08/17 Isosorbide Dinitrate [Isordil -] 20 mg PO BID 11/08/17 Pantoprazole Sodium [Protonix] 40 mg PO DAILY 11/08/17 Pregabalin [Lyrica] 100 mg PO TID 11/08/17 Tamsulosin HCl [Flomax] 0.4 mg PO HS 11/08/17 Albuterol 0.083% Nebulizer Suki [Ventolin 0.083% Nebulizer Soln -] 1 amp NEB Q6H PRN amp 12/10/17 Apixaban [Eliquis -] 2.5 mg PO BID #60 tablet 12/11/17 Budesonide/Formeterol Fumarate [SYMBICORT 160/4.5mcg -] 2 puff IH BID #1 inhaler 12/11/17 levETIRAcetam [Keppra -] 750 mg PO BID #45 tablet 12/26/17 Atorvastatin Ca [Lipitor] 10 mg PO HS 03/25/18 Roflumilast [Daliresp -] 500 mcg PO DAILY #30 tablet 05/22/18 Ferrous Sulfate 325 mg PO DAILY 05/29/18 Metoprolol Succinate [Toprol XL -] 50 mg PO BID #60 tab.sr.24h MDD 2 06/02/18 Prednisone 40 mg PO DAILY 07/13/18 pe: Vital Signs Period Temp Pulse Resp BP Sys/Varghese Pulse Ox Last 24 Hr 97.8 F 73-97 15-26 132-156/73-106 88-94 nad no jvd rrr s1s2 no mrg bl exp wheeze, nl eff aaox3 no le e/c/c abd nt nd pos bs no jaundice diaphoresis pos dp pt no carotid bruits Laboratory Last Values WBC 12.3 K/mm3 (4.0-10.0) H 07/13/18 08:51 RBC 5.25 M/mm3 (4.00-5.60) 07/13/18 08:51 Hgb 15.4 GM/dL (11.7-16.9) 07/13/18 08:51 Hct 46.7 % (35.4-49) 07/13/18 08:51 MCV 89.0 fl (80-96) 07/13/18 08:51 MCH 29.3 pg (25.7-33.7) 07/13/18 08:51 MCHC 32.9 g/dl (32.0-35.9) 07/13/18 08:51 RDW 18.3 % (11.9-15.9) H 07/13/18 08:51 Plt Count 136 K/MM3 (134-434) D 07/13/18 08:51 MPV 9.6 fl (7.5-11.1) 07/13/18 08:51 Absolute Neuts (auto) 10.9 K/mm3 (1.5-8.0) H 07/13/18 08:51 Neutrophils % 89.0 % (42.8-82.8) H 07/13/18 08:51 Lymphocytes % 5.7 % (8-40) L D 07/13/18 08:51 Monocytes % 4.6 % (3.8-10.2) 07/13/18 08:51 Eosinophils % 0.4 % (0-4.5) D 07/13/18 08:51 Basophils % 0.3 % (0-2.0) 07/13/18 08:51 Nucleated RBC % 0 % (0-0) 07/13/18 08:51 PT with INR 13.50 SEC (9.7-13.0) H 07/13/18 08:51 INR 1.14 (0.83-1.09) H 07/13/18 08:51 PTT (Actin FS) 45.1 SECONDS (25.2-36.5) H 07/13/18 08:51 Anticoagulation Therapy No Result Required. 07/13/18 09:50 Puncture Site Right radial 07/13/18 09:50 ABG pH 7.40 (7.35-7.45) 07/13/18 09:50 ABG pCO2 at Pt Temp 43.1 mmHg (35-45) 07/13/18 09:50 ABG pO2 at Pt Temp 76.3 mmHg (80-105) L 07/13/18 09:50 ABG HCO3 26.4 mmol/L (22-27) 07/13/18 09:50 ABG O2 Sat (Measured) 94.1 % (95-98) L 07/13/18 09:50 ABG O2 Content 18.4 % vol (15-22) 07/13/18 09:50 ABG Base Excess 1.9 meq/l (-2-2) 07/13/18 09:50 Aristides Test Positive 07/13/18 09:50 Carboxyhemoglobin 1.0 % (0-2) 07/13/18 09:50 Methemoglobin 0.4 % (0-2) 07/13/18 09:50 O2 Delivery Device 50 07/13/18 09:50 Oxygen Flow Rate Yes 07/13/18 09:50 Vent Mode No Result Required. 07/13/18 09:50 Vent Rate 10 07/13/18 09:50 Mechanical Rate No Result Required. 07/13/18 09:50 Pressure Support Vent No Result Required. 07/13/18 09:50 Sodium 136 mmol/L (136-145) 07/13/18 08:51 Potassium 4.3 mmol/L (3.5-5.1) 07/13/18 08:51 Chloride 100 mmol/L (98-107) 07/13/18 08:51 Carbon Dioxide 30 mmol/L (21-32) 07/13/18 08:51 Anion Gap 6 MMOL/L (8-16) L 07/13/18 08:51 BUN 25 mg/dL (7-18) H 07/13/18 08:51 Creatinine 1.8 mg/dL (0.55-1.3) H 07/13/18 08:51 Creat Clearance w eGFR 36.49 (>60) 07/13/18 08:51 Random Glucose 82 mg/dL (74-106) 07/13/18 08:51 Calcium 9.0 mg/dL (8.5-10.1) 07/13/18 08:51 Total Bilirubin 0.9 mg/dL (0.2-1) 07/13/18 08:51 AST 21 U/L (15-37) 07/13/18 08:51 ALT 22 U/L (13-61) 07/13/18 08:51 Alkaline Phosphatase 60 U/L (45-117) 07/13/18 08:51 Creatine Kinase 43 U/L (26-308) 07/13/18 08:51 Troponin I 0.02 ng/ml (0.00-0.05) 07/13/18 08:51 B-Natriuretic Peptide 5191.7 pg/ml (5-450) H 07/13/18 08:51 Total Protein 7.0 g/dl (6.4-8.2) 07/13/18 08:51 Albumin 3.5 g/dl (3.4-5.0) 07/13/18 08:51 Urine Color Yellow 07/13/18 09:35 Urine Appearance Clear 07/13/18 09:35 Urine pH 5.0 (5.0-8.0) 07/13/18 09:35 Ur Specific Valliant 1.008 (1.010-1.035) L 07/13/18 09:35 Urine Protein Negative (NEGATIVE) 07/13/18 09:35 Urine Glucose (UA) Negative (NEGATIVE) 07/13/18 09:35 Urine Ketones Negative (NEGATIVE) 07/13/18 09:35 Urine Blood Negative (NEGATIVE) 07/13/18 09:35 Urine Nitrite Negative (NEGATIVE) 07/13/18 09:35 Urine Bilirubin Negative (NEGATIVE) 07/13/18 09:35 Urine Urobilinogen 0.2 mg/dL (0.2-1.0) 07/13/18 09:35 Ur Leukocyte Esterase Negative (NEGATIVE) 07/13/18 09:35 cxr: clear lungs CTA chest: no aortic dissection or PE echo 06/2018 tds, unable to assess LV function, mod pericardial effusion, pacer wire in RV 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 sob, copd: -no signs acs or chf, likely copd exac, on steroids, nebs, pulm consulted abd pain - abd CTA pending, manage per primary cad s/p pci: -stable - trop neg -cont statin, bb, ac chronic sys chf: -s/p concrete vault maker pacer -stable vol status off diuretics, monitor vol status with iv steroids -prior echos here are nondiagnostic, unable to assess LV on echo 06/2018 -cont bb pafib: -stable, cont bb and eliquis peric eff: -prior echo reported moderate to large pericardial effusion, localized. no indications of tamponade 06/2018 echo NSVT - noted on tele last admission, 7 beats - hx ICM - refused ICD in the past - replete lytes for K >4.0, Mg >2.0
--- NOTE | 2018-07-13 12:56 | EKG ---
Test Reason : Blood Pressure : / mmHG Vent. Rate : 085 BPM Atrial Rate : 085 BPM P-R Int : 124 ms QRS Dur : 116 ms QT Int : 410 ms P-R-T Axes : 072 267 102 degrees QTc Int : 487 ms POOR DATA QUALITY, INTERPRETATION MAY BE ADVERSELY AFFECTED Atrial-sensed ventricular-paced rhythm WITH OCCASIONAL PREMATURE VENTRICULAR COMPLEXES Biventricular pacemaker detected ABNORMAL ECG Confirmed by MD PATSY, CHRISTEL ([id number]) on 07/13/2018 12:55:59 PM Referred By: Confirmed By:CHRISTEL GARNER MD
[2018-07-13] MEDS ORDERED: DOXYCYCLINE INJECTION 100 MG in DEXTROSE 5%-WATER - 100 ML IVPB ONE (13:06)
[2018-07-13] MEDS ORDERED: ALBUTEROL SO4 2.5/IPRATROPIUM 0.5 INH SOL 3 ML VIAL.NEB. NEB PRN (13:23)
[2018-07-13] MEDS ORDERED: ACETAMINOPHEN 325 MG TABLET (FP) PO PRN (13:23)
--- NOTE | 2018-07-13 13:29 | HP ---
Admitting History and Physical - Primary Care Physician PCP: Xavier Escamilla - Admission Chief Complaint: DYSPNEA/RESP DISTRESS/ABD PAIN History of Present Illness: 78 yo male h/o ischemic cardiomyopathy, pacer, cva, copd ( on home O2) thoracic anuerysm, and abdominal anuerysm s/p endovascular repair ( surgeon at [facility]), here today c/o acute onset sob, and lower abd pain. pt was seen recently for copd exacerbation, was sent home on prednisone [address] tomas 4 days ago, here today c/o sudden worsening sob awoke him from sleep. he denies chest pain or chest tightness. also c/o lower back pain lower abd pain. no new weakness numbness or tingling. cough is productive of yellowish sputum. no f/c no leg swelling. no new numbness or tingling. 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 No: Renal Failure Musculoskeletal: Yes: Osteoarthritis - Past Surgical History Past Surgical History: Yes: AAA Repair, Permanent Pacemaker - Smoking History Smoking history: Former smoker Have you smoked in the past 12 months: No If you are a former smoker, when did you quit?: 2009 - Alcohol/Substance Use Hx Alcohol Use: No History of Substance Use: reports: None - Social History ADL: Family Assistance History of Recent Travel: No Home Medications - Allergies Allergies/Adverse Reactions: Allergies Allergy/AdvReac Type Severity Reaction Status Date / Time No Known Allergies Allergy Verified 06/23/18 10:43 - Home Medications Home Medications: Ambulatory Orders Duloxetine HCl [Cymbalta -] 60 mg PO DAILY 11/08/17 Isosorbide Dinitrate [Isordil -] 20 mg PO BID 11/08/17 Pantoprazole Sodium [Protonix] 40 mg PO DAILY 11/08/17 Pregabalin [Lyrica] 100 mg PO TID 11/08/17 Tamsulosin HCl [Flomax] 0.4 mg PO HS 11/08/17 Albuterol 0.083% Nebulizer Suki [Ventolin 0.083% Nebulizer Soln -] 1 amp NEB Q6H PRN amp 12/10/17 Apixaban [Eliquis -] 2.5 mg PO BID #60 tablet 12/11/17 Budesonide/Formeterol Fumarate [SYMBICORT 160/4.5mcg -] 2 puff IH BID #1 inhaler 12/11/17 levETIRAcetam [Keppra -] 750 mg PO BID #45 tablet 12/26/17 Atorvastatin Ca [Lipitor] 10 mg PO HS 03/25/18 Roflumilast [Daliresp -] 500 mcg PO DAILY #30 tablet 05/22/18 Ferrous Sulfate 325 mg PO DAILY 05/29/18 Metoprolol Succinate [Toprol XL -] 50 mg PO BID #60 tab.sr.24h MDD 2 06/02/18 Prednisone 40 mg PO DAILY 07/13/18 Review of Systems Findings/Remarks: ON BIPAP UNABLE TO SPEAK - Review of Systems Constitutional: reports: Weakness Cardiovascular: reports: Chest Pain Respiratory: reports: Cough, SOB Gastrointestinal: reports: Abdominal Pain Genitourinary: reports: Incontinence Musculoskeletal: reports: Muscle Weakness Neurological: reports: Pre-Existing Deficit Physical Examination Vital Signs: Vital Signs Temperature 97.8 F 07/13/18 09:50 Pulse Rate 81 07/13/18 13:05 Respiratory Rate 15 07/13/18 11:58 Blood Pressure 132/73 07/13/18 11:58 O2 Sat by Pulse Oximetry (%) 95 07/13/18 13:05 Constitutional: Yes: Severe Distress Cardiovascular: Yes: Tachycardia Respiratory: Yes: Diminished, On BiPap, Rhonchi Gastrointestinal: Yes: Soft, Tenderness Renal/: Yes: WNL Edema: Yes Neurological: Yes: Pre-Existing Deficit Labs: CBC, BMP 07/13/18 08:51 07/13/18 08:51 Imaging - Results Cat Scan: Report Reviewed Problem List - Problems (1) Abdominal bloating Code(s): R14.0 - ABDOMINAL DISTENSION (GASEOUS) (2) Abdominal pain Code(s): R10.9 - UNSPECIFIED ABDOMINAL PAIN (3) Acute kidney injury Code(s): N17.9 - ACUTE KIDNEY FAILURE, UNSPECIFIED (4) Acute on chronic respiratory failure with hypoxemia Code(s): J96.21 - ACUTE AND CHRONIC RESPIRATORY FAILURE WITH HYPOXIA (5) Altered mental status Code(s): R41.82 - ALTERED MENTAL STATUS, UNSPECIFIED (6) Anxiety Code(s): F41.9 - ANXIETY DISORDER, UNSPECIFIED (7) Aortic aneurysm Code(s): I71.9 - AORTIC ANEURYSM OF UNSPECIFIED SITE, WITHOUT RUPTURE (8) Atrial fib/flutter, transient Code(s): EEG0310 - (9) CAD (coronary artery disease) Code(s): I25.10 - ATHSCL HEART DISEASE OF [place] CORONARY ARTERY W/O ANG PCTRS (10) COPD (chronic obstructive pulmonary disease) Code(s): J44.9 - CHRONIC OBSTRUCTIVE PULMONARY DISEASE, UNSPECIFIED Qualifiers: Assessment/Plan BIPAP SETTINGS REVIEWED PULMONARY EVAL APPRECIATED IV SOLUMEDROL/NEBS/[address] SCAN PHOEBE PENDING TO REVIEW PHOEBE PAREDESUERYSM SX IN PAST PPI PAIN CONTROL CARDIOLOGY EVAL APPRECIATED
[2018-07-13] MEDS ORDERED: PANTOPRAZOLE 40 MG TABLET (FP) PO SCH (13:30)
[2018-07-13] MEDS ORDERED: PREGABALIN 100 MG CAPSULE ONE (14:03)
[2018-07-13] MEDS ORDERED: PANTOPRAZOLE SODIUM 40 MG VIAL ONE (14:04)
[2018-07-13] MEDS ORDERED: PANTOPRAZOLE 40 MG TABLET (FP) ONE (14:06)
[2018-07-13] MEDS: PREGABALIN 100 MG CAPSULE PO SCH ×2 (14:17→22:58)
--- NOTE | 2018-07-13 14:18 | PN ---
Progress Note (short form) - Note Progress Note: PULMONARY PATIENT SEEN AND EXAMINED IN ER FULL CONSULT TO FOLLOW. Kane GHOTRA MD
[2018-07-13] MEDS ORDERED: PT OWN MED DRAWER 7, Y5N ONE ×2 (17:08→22:52)
[2018-07-13] MEDS: methylPREDNISolone NA SUCC 40 MG/1 ML VIAL IVPUSH SCH (18:35)
--- NOTE | 2018-07-13 21:39 | CON.PULM ---
Consult Consult Specialty:: Pulmonary Referred by:: SHARON Reason for Consultation:: SOB - History of Present Illness Chief Complaint: SOB History of Present Illness: The patient is an 78 year old male BIBEMS for shortness of breath. The patient has h/o ischemic cardiomyopathy, COPD (on home O2), TAA (stable @ 5.1 cm) Abdominal aneursym (s/p EVR) .c/o acute onset of shortness of breath and lower abdominal pain. Patient was evaluated by his sales demonstrator earlier this week for worsening dyspnea - started on PO Predisone. Patient denies chest pain, no new lower extremity swelling, fevers/chills, recent travels, sick contacts. 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 No: Renal Failure Musculoskeletal: Yes: Osteoarthritis - Past Surgical History Past Surgical History: Yes: AAA Repair, Permanent Pacemaker - Alcohol/Substance Use Hx Alcohol Use: No History of Substance Use: reports: None - Smoking History Smoking history: Former smoker Have you smoked in the past 12 months: No Aproximately how many cigarettes per day: 6 If you are a former smoker, when did you quit?: 2008 - Social History Usual Living Arrangement: With Spouse ADL: Family Assistance History of Recent Travel: No Home Medications - Allergies Allergies/Adverse Reactions: Allergies Allergy/AdvReac Type Severity Reaction Status Date / Time No Known Allergies Allergy Verified 06/23/18 10:43 - Home Medications Home Medications: Ambulatory Orders Duloxetine HCl [Cymbalta -] 60 mg PO DAILY 11/08/17 Isosorbide Dinitrate [Isordil -] 20 mg PO BID 11/08/17 Pantoprazole Sodium [Protonix] 40 mg PO DAILY 11/08/17 Pregabalin [Lyrica] 100 mg PO TID 11/08/17 Tamsulosin HCl [Flomax] 0.4 mg PO HS 11/08/17 Albuterol 0.083% Nebulizer Suki [Ventolin 0.083% Nebulizer Soln -] 1 amp NEB Q6H PRN amp 12/10/17 Apixaban [Eliquis -] 2.5 mg PO BID #60 tablet 12/11/17 Budesonide/Formeterol Fumarate [SYMBICORT 160/4.5mcg -] 2 puff IH BID #1 inhaler 12/11/17 levETIRAcetam [Keppra -] 750 mg PO BID #45 tablet 12/26/17 Atorvastatin Ca [Lipitor] 10 mg PO HS 03/25/18 Roflumilast [Daliresp -] 500 mcg PO DAILY #30 tablet 05/22/18 Ferrous Sulfate 325 mg PO DAILY 05/29/18 Metoprolol Succinate [Toprol XL -] 50 mg PO BID #60 tab.sr.24h MDD 2 06/02/18 Prednisone 40 mg PO DAILY 07/13/18 Family Disease History - Family Disease History Family History: Unable to Obtain Review of Systems Unable to obtain ROS, reason: UNABLE TO OBTAIN ON BIPAP Physical Exam Vital Sings: Vital Signs Temperature 97.8 F 07/13/18 17:10 Pulse Rate 76 07/13/18 17:10 Respiratory Rate 24 H 07/13/18 17:10 Blood Pressure 150/100 07/13/18 17:10 O2 Sat by Pulse Oximetry (%) 97 07/13/18 17:17 Constitutional: Yes: Anxious Eyes: Yes: Conjunctiva Clear HENT: Yes: Atraumatic Neck: Yes: Supple Cardiovascular: Yes: Regular Rate and Rhythm Respiratory: Yes: Diminished Gastrointestinal: Yes: Normal Bowel Sounds, Soft Edema: No Neurological: Yes: Alert Psychiatric: Yes: Alert Labs: CBC, BMP 07/13/18 08:51 07/13/18 08:51 ABG Results ABG pH 7.40 (7.35-7.45) 07/13/18 09:50 ABG pCO2 at Pt Temp 43.1 mmHg (35-45) 07/13/18 09:50 ABG pO2 at Pt Temp 76.3 mmHg (80-105) L 07/13/18 09:50 ABG HCO3 26.4 mmol/L (22-27) 07/13/18 09:50 ABG O2 Sat (Measured) 94.1 % (95-98) L 07/13/18 09:50 ABG O2 Content 18.4 % vol (15-22) 07/13/18 09:50 ABG Base Excess 1.9 meq/l (-2-2) 07/13/18 09:50 REST REVIEWED Imaging - Results Chest X-ray: Report Reviewed, Image Reviewed Cat Scan: Report Reviewed, Image Reviewed Problem List - Problems (1) Respiratory distress Code(s): R06.03 - ACUTE RESPIRATORY DISTRESS (2) Acute on chronic respiratory failure with hypoxemia Code(s): J96.21 - ACUTE AND CHRONIC RESPIRATORY FAILURE WITH HYPOXIA (3) Aortic aneurysm Code(s): I71.9 - AORTIC ANEURYSM OF UNSPECIFIED SITE, WITHOUT RUPTURE (4) CAD (coronary artery disease) Code(s): I25.10 - ATHSCL HEART DISEASE OF [place] CORONARY ARTERY W/O ANG PCTRS Qualifiers: Coronary Disease-Associated Artery/Lesion type: [place] artery (5) COPD (chronic obstructive pulmonary disease) Code(s): J44.9 - CHRONIC OBSTRUCTIVE PULMONARY DISEASE, UNSPECIFIED Qualifiers: COPD type: chronic bronchitis (6) CVA (cerebral vascular accident) Code(s): I63.9 - CEREBRAL INFARCTION, UNSPECIFIED (7) Chronic a-fib Code(s): I48.2 - CHRONIC ATRIAL FIBRILLATION Assessment/Plan A/E COPD REQUIRING NIPPV IN ER NO EVIDENCE TO SUPPORT PNEUMONIA OR WORSENING ANEURYSM MULTIPLE MEDICAL PROBLEMS LISTED SUPPLEMENTAL O2/NIPPV NEEDED NEBS/IV STEROIDS/DALIRESP NOT OPPOSED TO A TRIAL OF ANTIBIOTICS WILL FOLLOW Kane GHOTRA MD
[2018-07-13] MEDS ORDERED: ATORVASTATIN CA 10 MG TABLET (FP) PO SCH (22:00)
[2018-07-13] MEDS ORDERED: metoPROLOL SUCCINATE 25 MG TAB.SR.24H (FP) PO SCH (22:00)
[2018-07-13] MEDS ORDERED: METHYL SALICYLATE/MENTHOL OINT 30 GM TUBE TP SCH (22:00)
[2018-07-13] MEDS ORDERED: APIXABAN 2.5 MG TABLET PO SCH (22:00)
[2018-07-13] MEDS ORDERED: levETIRAcetam 250 MG TABLET (FP) PO SCH (22:00)
[2018-07-13] MEDS ORDERED: ISOSORBIDE DINITRATE 20 MG TABLET (FP) PO SCH (22:00)
[2018-07-13] MEDS ORDERED: BUDESONIDE/FORMETEROL FUMARATE 160/4.5 mcg INHALER IH SCH (22:00)
[2018-07-13] MEDS ORDERED: POLYETHYLENE GLYCOL 3350 119 GM BTL PO ONE (23:59)
[2018-07-14] MEDS: methylPREDNISolone NA SUCC 40 MG/1 ML VIAL IVPUSH SCH (01:21)
[2018-07-14 01:37] VITALS: BP 134/92; PULSE 78
[2018-07-14] MEDS ORDERED: HYDROmorphone HCl 2 MG/ML VIAL SQ ONE (05:38)
[2018-07-14] MEDS: PREGABALIN 100 MG CAPSULE PO SCH (05:51)
[2018-07-14 07:25] LABS: HEMATOCRIT 42.5 % (35.4-49); HEMOGLOBIN 14.2 GM/dL (11.7-16.9); MCH 29.4 pg (25.7-33.7); MCHC 33.4 g/dl (32.0-35.9); MEAN CELL VOLUME 87.9 fl (80-96); PLATELET COUNT 142 K/MM3 (134-434); RBC 4.84 M/mm3 (4.00-5.60); RDW 18.7 % (11.9-15.9); WHITE BLOOD COUNT 10.7 K/mm3 (4.0-10.0)
[2018-07-14 07:54] LABS: ALBUMIN 3.2 g/dl (3.4-5.0); ALK PHOS 53 U/L (45-117); ANION GAP 6 MMOL/L (8-16); BILIRUBIN,TOTAL 0.6 mg/dL (0.2-1); BLOOD UREA NITROGEN 37 mg/dL (7-18); CALCIUM 8.9 mg/dL (8.5-10.1); CHLORIDE 100 mmol/L (98-107); CO2 32 mmol/L (21-32); CREATININE 2.2 mg/dL (0.55-1.3); GLUCOSE,RANDOM 134 mg/dL (74-106); POTASSIUM 5.2 mmol/L (3.5-5.1); SGOT/AST 13 U/L (15-37); SGPT/ALT 17 U/L (13-61); SODIUM 138 mmol/L (136-145); TOT PROT 6.1 g/dl (6.4-8.2)
--- NOTE | 2018-07-14 07:54 | PN ---
Progress Note (short form) - Note Progress Note: PATIENT IS DNR/DNI PER JOAQUIN HIS I SPOKE TO JUST NOW AT 7:50AM COMFORT MEASURES ONLY Problem List - Problems (1) Abdominal bloating Code(s): R14.0 - ABDOMINAL DISTENSION (GASEOUS) (2) Abdominal pain Code(s): R10.9 - UNSPECIFIED ABDOMINAL PAIN (3) Acute kidney injury Code(s): N17.9 - ACUTE KIDNEY FAILURE, UNSPECIFIED (4) Acute on chronic respiratory failure with hypoxemia Code(s): J96.21 - ACUTE AND CHRONIC RESPIRATORY FAILURE WITH HYPOXIA (5) Altered mental status Code(s): R41.82 - ALTERED MENTAL STATUS, UNSPECIFIED (6) Anxiety Code(s): F41.9 - ANXIETY DISORDER, UNSPECIFIED (7) Aortic aneurysm Code(s): I71.9 - AORTIC ANEURYSM OF UNSPECIFIED SITE, WITHOUT RUPTURE (8) Atrial fib/flutter, transient Code(s): [id number] - (9) CAD (coronary artery disease) Code(s): I25.10 - ATHSCL HEART DISEASE OF [place] CORONARY ARTERY W/O ANG PCTRS (10) COPD (chronic obstructive pulmonary disease) Code(s): J44.9 - CHRONIC OBSTRUCTIVE PULMONARY DISEASE, UNSPECIFIED Qualifiers:
[2018-07-14] MEDS ORDERED: TAMSULOSIN HCL 0.4 MG CAP PO SCH (08:30)
[2018-07-14] MEDS ORDERED: FERROUS SO4 325 MG TABLET (FP) PO SCH (10:00)
[2018-07-14] MEDS ORDERED: DULoxetine HCL 30 MG CAPSULE.DR (FP) PO SCH (10:00)
[2018-07-14] MEDS ORDERED: ROFLUMILAST 500 MCG TABLET PO SCH (10:00)
[2018-07-14] MEDS ORDERED: ISOSORBIDE DINITRATE 20 MG TABLET (FP) PO SCH (10:00)
[2018-07-14] MEDS ORDERED: DULoxetine HCL 60 MG CAPSULE.DR PO SCH (10:00)
--- NOTE | 2018-07-14 13:18 | DS ---
Physical Examination Vital Signs: Vital Signs Temperature 97.8 F 07/14/18 01:36 Pulse Rate 78 07/14/18 01:36 Respiratory Rate 20 07/14/18 06:00 Blood Pressure 134/92 07/14/18 01:36 O2 Sat by Pulse Oximetry (%) 95 07/14/18 06:00 Labs: CBC, BMP 07/14/18 06:40 07/14/18 06:40 Discharge Summary Reason For Visit: SHORTNESS OF BREATH Other Procedures: CTA no PE Hospital Course: - Primary Care Physician PCP: Xavier Escamilla - Admission Chief Complaint: DYSPNEA/RESP DISTRESS/ABD PAIN History of Present Illness: 78 yo male h/o ischemic cardiomyopathy, pacer, cva, copd ( on home O2) thoracic anuerysm, and abdominal anuerysm s/p endovascular repair ( surgeon at [facility]), here today c/o acute onset sob, and lower abd pain. pt was seen recently for copd exacerbation, was sent home on prednisone [address] tomas 4 days ago, here today c/o sudden worsening sob awoke him from sleep. he denies chest pain or chest tightness. also c/o lower back pain lower abd pain. no new weakness numbness or tingling. cough is productive of yellowish sputum. no f/c no leg swelling. no new numbness or tingling. admitted to telemetry floor placed on bipap seen by cardiology, started on iv abx today morning agonal breathing on bipap- code 99 called - DNR /DNI code borted and at 7:59 am Condition: - Instructions Disposition: - Home Medications Comprehensive Discharge Medication List: Ambulatory Orders Duloxetine HCl [Cymbalta -] 60 mg PO DAILY 11/08/17 Isosorbide Dinitrate [Isordil -] 20 mg PO BID 11/08/17 Pantoprazole Sodium [Protonix] 40 mg PO DAILY 11/08/17 Pregabalin [Lyrica] 100 mg PO TID 11/08/17 Tamsulosin HCl [Flomax] 0.4 mg PO HS 11/08/17 Albuterol 0.083% Nebulizer Suki [Ventolin 0.083% Nebulizer Soln -] 1 amp NEB Q6H PRN amp 12/10/17 Apixaban [Eliquis -] 2.5 mg PO BID #60 tablet 12/11/17 Budesonide/Formeterol Fumarate [SYMBICORT 160/4.5mcg -] 2 puff IH BID #1 inhaler 12/11/17 levETIRAcetam [Keppra -] 750 mg PO BID #45 tablet 12/26/17 Atorvastatin Ca [Lipitor] 10 mg PO HS 03/25/18 Roflumilast [Daliresp -] 500 mcg PO DAILY #30 tablet 05/22/18 Ferrous Sulfate 325 mg PO DAILY 05/29/18 Metoprolol Succinate [Toprol XL -] 50 mg PO BID #60 tab.sr.24h MDD 2 06/02/18 Prednisone 40 mg PO DAILY 07/13/18
--- NOTE | 2018-07-14 13:54 | PN ---
Progress Note (short form) - Note Progress Note: Code 99 called over head at 07:51 Pulse found on arrival, Eventually lost pulse Initial Rhythm on Tele monitor was PEA CPR was initiated, then stopped when Dr Escamilla was made aware of events and informed that patient was DNR/DNI Patient pronounced at 07:59 <Agata Reddy - Last Filed: 07/14/18 17:40> - Note Progress Note: after CPR was stopped, patient had no spontaneous pulse, no spontaneous breathing. fixed pupils, not reactive to light .absent corneal reflexes. no heart sounds. pronounced at 7:59 am. <Marcus Borja - Last Filed: 07/14/18 18:27>
--- NOTE | 2018-07-14 13:54 | PN ---
Progress Note (short form) - Note Progress Note: Code 99 called over head at 07:51 Pulse found on arrival, Eventually lost pulse Initial Rhythm on Tele monitor was PEA Dr Escamilla was made aware of events and informed that patient was DNR/DNI Patient pronounced at 07:59
== END 2018-07-14 07:59 | disposition expired | DRG 190 ==
LOC: JER 08:36 → JERBED 12:03 → J4W 15:04
PROVIDERS: ADMIT Family Medicine; ATTEND Family Medicine
PROC: 5A09357 Assistance with Respiratory Ventilation, Less than 24 Consecutive Hours, Continuous Positive Airway Pressure (ICD-10-PCS; 2018-07-12)
PROC: 5A12012 Performance of Cardiac Output, Single, Manual (ICD-10-PCS; principal; 2018-07-14)
DX: J44.1 Chronic obstructive pulmonary disease with (acute) exacerbation (principal); J96.21 Acute and chronic respiratory failure with hypoxia; I31.3 Pericardial effusion (noninflammatory); N17.9 Acute kidney failure, unspecified; I47.2 Ventricular tachycardia; I48.92 Unspecified atrial flutter; I50.22 Chronic systolic (congestive) heart failure; I48.0 Paroxysmal atrial fibrillation; I25.5 Ischemic cardiomyopathy; N40.0 Benign prostatic hyperplasia without lower urinary tract symptoms; E78.00 Pure hypercholesterolemia, unspecified; I71.2 Thoracic aortic aneurysm, without rupture; I73.9 Peripheral vascular disease, unspecified; I46.9 Cardiac arrest, cause unspecified; F41.9 Anxiety disorder, unspecified; R14.0 Abdominal distension (gaseous); I25.10 Atherosclerotic heart disease of native coronary artery without angina pectoris; R41.82 Altered mental status, unspecified; Z99.81 Dependence on supplemental oxygen; Z95.5 Presence of coronary angioplasty implant and graft; Z86.73 Personal history of transient ischemic attack (TIA), and cerebral infarction without residual deficits; Z87.891 Personal history of nicotine dependence; Z66 Do not resuscitate; Z95.0 Presence of cardiac pacemaker
CPT/HCPCS: 36415; 36600; 71045-TC-FY; 71275-TC; 74175-TC; 80053; 81003; 82375; 82550; 82803; 83050; 83880; 84484; 85025; 85027; 85610; 85730; 87086; 93005; 93010; 94660; 99285-25